=== PATIENT | male | born 1950 | race Caucasian/White ===

== ENCOUNTER 2022-12-21 14:04 | Outpatient (OUT) | payer MEDICARE, OTHER, SELFPAY ==
[2022-12-21 15:19] LABS: Estimated Average Glucose 114 mg/dL; Glycohemoglobin A1C 5.6 % (4.5-6.2)
[2022-12-21 16:06] LABS: Alanine Aminotransferase 41 U/L (16-63); Albumin Globulin Ratio 1.1; Albumin Level 3.7 g/dL (3.4-5.0); Alkaline Phosphatase 102 U/L (46-116); Anion Gap 12.6; Aspartate Amino Transferase 26 U/L (15-37); BUN Creatinine Ratio 13.1; Bilirubin Total 0.6 mg/dL (0.2-1.0); Calcium 8.4 mg/dL (8.5-10.1); Carbon Dioxide 27.9 mmol/L (21.0-32.0); Chloride 101 mmol/L (98-107); Chol HDL Ratio 1.6; Cholesterol 116 mg/dL (<=200); Estimated GFR (African America >60 (>=60); Estimated GFR (Non-African Ame 51 (>=60); Free T3 2.54 pg/mL (2.18-3.98); Globulin 3.4 g/dL; Glucose 108 mg/dL (74-106); HDL Cholesterol 71 mg/dL (40-60); Potassium 3.5 mmol/L (3.5-5.1); Sodium 138 mmol/L (136-145); Thyroid Stimulating Hormone 1.768 uIU/mL (0.358-3.740); Total Protein 7.1 g/dL (6.4-8.2); Triglycerides 59 mg/dL (<=150); VLDL CHOLESTEROL 11.8 mg/dL
[2022-12-21 16:12] LABS: Prostate Specific Antigen Scrn 1.31 ng/mL (<=4.00)
[2022-12-21 17:38] LABS: Basophils Absolute Auto 0.1 10^3/uL (0.0-0.1); Basophils Percent Auto 0.9 % (0.2-2.0); Eosinophils Absolute Auto 0.3 10^3/uL (0.0-0.7); Eosinophils Percent Auto 4.3 % (0.9-7.0); Hematocrit 42.6 % (42.0-54.0); Hemoglobin 14.5 g/dL (14.0-18.0); Immature Granulocytes Abs Auto 0.04 10^3/uL (0.00-0.03); Immature Granulocytes Pct Auto 0.5 % (0.0-0.5); Lymphocytes Absolute Auto 1.7 10^3/uL (1.2-3.8); Lymphocytes Percent Auto 22.3 % (20.5-60.0); Mean Corpuscular Hemoglobin 32.9 pg (25.9-34.0); Mean Corpuscular Volume 96.6 fL (80.0-94.0); Mean Platelet Volume 11.4 fL (9.5-13.5); Monocytes Absolute Auto 0.8 10^3/uL (0.3-0.8); Monocytes Percent Auto 11.2 % (1.7-12.0); Neutrophils Absolute Auto 4.5 10^3/uL (1.4-6.5); Neutrophils Percent Auto 60.8 % (43.0-75.0); Platelet Count 193 10^3/uL (150-450); Red Blood Count 4.41 10^6/uL (4.70-6.10); Red Cell Distribution Width 14.3 % (11.0-15.0); White Blood Count 7.4 10^3/uL (4.0-11.0)
== END 2022-12-21 14:05 | disposition home or self-care (01) ==
LOC: LAB 14:07
PROVIDERS: PCP Family Medicine; Visit Provider Family Medicine
DX: E78.5 Hyperlipidemia, unspecified (principal); R73.09 Other abnormal glucose; D22.9 Melanocytic nevi, unspecified; J21.9 Acute bronchiolitis, unspecified; Z12.5 Encounter for screening for malignant neoplasm of prostate
CPT/HCPCS: 36415; 80053; 80061; 83036; 84436; 84443; 84481; 85025; G0103

== ENCOUNTER 2022-12-28 12:20 | Outpatient (OUT) | payer MEDICARE, SELFPAY | END 2022-12-28 12:21 | disposition home or self-care (01) | LOC: PST 12:21 | PROVIDERS: PCP Family Medicine; Visit Provider Surgery | DX: Z01.818 Encounter for other preprocedural examination (principal); D48.7 Neoplasm of uncertain behavior of other specified sites ==

== ENCOUNTER 2022-12-29 09:26 | Day surgery (SDC) | payer MEDICARE, OTHER, SELFPAY ==
--- NOTE | 2022-12-29 | OP_ITS ---
OPERATION DATE: ??12/29/2022 PREOPERATIVE DIAGNOSIS:?? Neoplasm of uncertain behavior left cheek. POSTOPERATIVE DIAGNOSIS:? Neoplasm of uncertain behavior left cheek. PROCEDURE:? Excisional biopsy of lesion left cheek.? Total length of the incision 8 mm. SURGEON:? Ronald Lewis M.D. INDICATIONS AND CONSENT:? Patient is a 72-year-old male with a keratotic, enlarging, painful lesion of the left cheek.? The superficial part was sloughed off but then grows back.? Indications, risks, benefits, alternatives of proceeding with excisional biopsy under local anesthesia were explained extensively to the patient, including risks of bleeding, infection, scarring, pain, need for further surgery.? All of his questions were answered.? Informed consent was obtained. PROCEDURE:? Patient brought to the operating room, placed in the supine position.? The area was prepped and draped in the usual sterile fashion.? It was anesthetized with 1% lidocaine with epinephrine . ?The lesion was excised in elliptical fashion down to subcutaneous fat. ?Total length of the incision was less than 8 mm.? The subcutaneous tissue was re-approximated with 4-0 Monocryl suture.? The skin was then closed with 5-0 nylon simple sutures.? There was good hemostasis.? A sterile pressure dressing was applied.? Sponge and needle counts were correct x2 per nursing personnel.? Patient tolerated procedure well, was discharged home in good condition to follow up in 7-10 days for suture removal.? He is to call sooner with any problems or questions. CC:? Sulaiman Garcia
[2022-12-29 11:48] VITALS: BP 203/99; PULSE 56; RESP 18; O2SAT 98
[2022-12-29] MEDS: LIDOCAINE HCL 1%-EPINEPHRINE 1:100,000 20 ML MDV INJ (12:02)
[2022-12-29 12:06] VITALS: BP 170/87; PULSE 55; RESP 18; O2SAT 98
== END 2022-12-29 12:20 | disposition home or self-care (01) ==
PROVIDERS: PCP Family Medicine; Visit Provider Surgery
PROC: (CPT 11641; principal; 2022-12-29 10:30)
DX: D04.39 Carcinoma in situ of skin of other parts of face (principal); L57.0 Actinic keratosis; I50.9 Heart failure, unspecified; I11.0 Hypertensive heart disease with heart failure; E78.2 Mixed hyperlipidemia; N40.1 Benign prostatic hyperplasia with lower urinary tract symptoms; Z86.718 Personal history of other venous thrombosis and embolism; I43 Cardiomyopathy in diseases classified elsewhere; G47.33 Obstructive sleep apnea (adult) (pediatric); E66.9 Obesity, unspecified; Z68.30 Body mass index [BMI] 30.0-30.9, adult; I48.0 Paroxysmal atrial fibrillation; F17.210 Nicotine dependence, cigarettes, uncomplicated; Z79.899 Other long term (current) drug therapy
CPT/HCPCS: 11641; 12051; 88305

== ENCOUNTER 2023-05-16 12:14 | Outpatient (OUT) | payer MEDICARE, OTHER, SELFPAY ==
--- NOTE | 2023-05-16 12:33 | XR_ITS ---
The [address] [address] Patient Name: HEAVEN PATEL MRN: [id number] date: 1950 Sex: M Assigned Patient Location: LAB Current Patient Location: LAB Accession/Order Number: [id number] Exam Date: 05/16/2023 12:38 Report Date: 05/16/2023 14:54 At the request of: QUENTIN RANGEL Procedure: XR chest 2V EXAM: XR chest 2V HISTORY: Acute bronchitis; J21.9 COMPARISON: CT chest dated 05/04/2022. TECHNIQUE: PA and lateral views of the chest performed. FINDINGS: The trachea is normal. The heart size is within normal limits. There is a mildly tortuous course of the descending thoracic aorta. The hilar shadows are normal. There are new small bilateral pleural effusions with mild associated atelectasis. There is no pulmonary vascular congestion. There is no pneumothorax. The bony structures are osteopenic. There is slight dextroscoliosis of the thoracic spine. There are mild discogenic degenerative changes at several levels along the spine. XR/XR chest 2V IMPRESSION: There are new small bilateral pleural effusions with mild associated atelectasis. Electronically authenticated by: SINGH MCGRAW Date: 05/16/2023 14:54
[2023-05-16 13:06] LABS: Alanine Aminotransferase 55 U/L (16-63); Albumin Globulin Ratio 0.6; Albumin Level 2.7 g/dL (3.4-5.0); Alkaline Phosphatase 137 U/L (46-116); Anion Gap 12.9; Aspartate Amino Transferase 36 U/L (15-37); Bilirubin Total 0.5 mg/dL (0.2-1.0); Calcium 8.7 mg/dL (8.5-10.1); Carbon Dioxide 29.6 mmol/L (21.0-32.0); Chloride 100 mmol/L (98-107); Estimated GFR (African America >60 (>=60); Estimated GFR (Non-African Ame >60 (>=60); Globulin 4.2 g/dL; Glucose 116 mg/dL (74-106); Potassium 3.5 mmol/L (3.5-5.1); Sodium 139 mmol/L (136-145); Thyroid Stimulating Hormone 1.051 uIU/mL (0.358-3.740); Total Protein 6.9 g/dL (6.4-8.2)
[2023-05-16 13:49] LABS: Free T4 1.37 ng/dL (0.76-1.46)
== END 2023-05-16 12:15 | disposition home or self-care (01) ==
LOC: LAB 12:17
PROVIDERS: PCP Family Medicine; Visit Provider Family Medicine
DX: J21.9 Acute bronchiolitis, unspecified (principal); I10 Essential (primary) hypertension
CPT/HCPCS: 36415; 71046; 80053; 83880; 84439; 84443

== ENCOUNTER 2023-05-20 13:53 | Outpatient (REF) | payer MEDICARE, OTHER, SELFPAY | END 2023-05-20 13:54 | disposition home or self-care (01) | LOC: LAB 13:53 | PROVIDERS: PCP Family Medicine; Visit Provider Family Medicine | DX: J21.9 Acute bronchiolitis, unspecified (principal); I11.0 Hypertensive heart disease with heart failure | CPT/HCPCS: 87070; 87205 ==

== ENCOUNTER 2023-06-20 11:37 | Outpatient (OUT) | payer MEDICARE, OTHER, SELFPAY ==
[2023-06-20 11:59] LABS: Basophils Absolute Auto 0.1 10^3/uL (0.0-0.1); Eosinophils Absolute Auto 0.2 10^3/uL (0.0-0.7); Eosinophils Percent Auto 3.2 % (0.9-7.0); Hematocrit 43.5 % (42.0-54.0); Hemoglobin 14.1 g/dL (14.0-18.0); Immature Granulocytes Abs Auto 0.03 10^3/uL (0.00-0.03); Immature Granulocytes Pct Auto 0.4 % (0.0-0.5); Lymphocytes Absolute Auto 1.3 10^3/uL (1.2-3.8); Lymphocytes Percent Auto 17.5 % (20.5-60.0); Mean Corpuscular HGB Conc 32.4 g/dL (29.9-35.2); Mean Corpuscular Hemoglobin 31.3 pg (25.9-34.0); Mean Corpuscular Volume 96.7 fL (80.0-94.0); Mean Platelet Volume 11.7 fL (9.5-13.5); Monocytes Absolute Auto 0.8 10^3/uL (0.3-0.8); Neutrophils Absolute Auto 4.8 10^3/uL (1.4-6.5); Neutrophils Percent Auto 66.9 % (43.0-75.0); Platelet Count 159 10^3/uL (150-450); Red Cell Distribution Width 16.2 % (11.0-15.0); White Blood Count 7.2 10^3/uL (4.0-11.0)
--- OUTSIDE RECORDS SUMMARY | 2023-06-20 12:00 | XMS_ITS | CCD ---
Author Organization [facility] Care Team Providers Care Pipe Racker Name Role Phone Jamison Will Unavailable Unavail able NicoletteJamison Unavailable Unavail able HOY, QUENTIN Unavailable Unavailable Ezra Young Unavailable Unavailable Nicolette, Jamison Merino Unavailable Unavail able Nicolette, Jamison Merino Unavailable Unavail able HOY, QUENTIN Unavailable Unavailable Feliciano Davies S Unavailable Unavailable Nicolette, Jamison Merino Unavailable Unavail able Nicolette, Jamison Merino Unavailable Unavail able HOYKRISTIQUENTIN Unavailable Unavailable HOYQUENTIN Unavailable Unavailable GABRIELLE QUEZADA Admitting Unavailable GABRIELLE QUEZADA Attending Unavailable QUENTIN RANGEL Referring Unavailable QUENTIN RANGEL Primary Care Unavailable MOUKARBELTON, DR XIE Admitting Unavailable MOUKARBEL, DR XIE Attending Unavailable JUAN CARLOS, DR SAAVEDRA Primary Care Unavailable Zieber, DR Yeung Consulting Unavailable MOUKARBEL, DR XIE Consulting Unavailable MOUKARBEL, DR XIE Admitting Unavailable MOUKARBEL, DR XIE Attending Unavailable JUAN CARLOS, DR SAAVEDRA Primary Care Unavailable MOUKARBEL, DR XIE Consulting Unavailable MOUKARBEL, DR XIE Admitting Unavailable MOUKARBEL, DR XIE Attending Unavailable JUAN CARLOS, DR SAAVEDRA Primary Care Unavailable EDMORE, DR NOLVIA Devlin Consulting Unavailable MOUKARBEL, DR XIE Consulting Unavailable MOUKARBEL, DR XIE Admitting Unavailable MOUKARBEL, DR XIE Attending Unavailable JUAN CARLOS, DR SAAVEDRA Primary Care Unavailable Quentin Rangel Primary Care Physician Quentin Rangel Referring Unavailable Ronald CHOWDARY Attending Unavailable Ronald CHOWDARY Attending Unavailable Ronald CHOWDARY Attending Unavailable ISSAC SEXTON Referring Unavailable ISSAC SEXTON Attending Unavailable MOUKARBELANNE-MARIE Attending Unavailable MOUKARBELANNE-MARIE Attending Unavailable Unavailable Primary Care Provider UnavailAUDREY Lopez Attending Unavailable AUDREY RAMIREZ Attending Unavailable AUDREY RAMIREZ Attending Unavailable AUDREY RAMIREZ Attending Unavailable AUDREY RAMIREZ Attending Unavailable Allergies Allergy Classification Reported Allergen(s) Allergy Type Date of Onset Reaction(s) Facility (2 sources) No Known Medication Allergies; Translations: [No Known Medication Allergies] Propensity to adverse reactions to drug (disorder) [facility] Repository Medications Current Medications Medication Drug Class(es) Dates Sig (Normalized) Sig (Original) allopurinol 300 mg oral tablet (1 source) Xanthine Oxidase Inhibitor Start: 12-17-2022 take 1 tablet by mouth once daily allopurinol 300 mg Tab 300 mg = 1 tab(s), Oral, Daily, Refills(s) 0 Start Date: 12/17/22 Status: Ordered atorvastatin 40 mg oral tablet (1 source) HMG-CoA Reductase Inhibitor Start: 12-17-2022 take 1 tablet by mouth once daily atorvastatin 40 mg Tab 40 mg = 1 tab(s), Oral, Daily, Refills(s) 0 Start Date: 12/17/22 Status: Ordered 24 hr buPROPion hydrochloride 150 mg extended release oral tablet (1 source) Aminoketone Start: 12-17-2022 take 1 tablet by mouth every twenty-four hours Wellbutrin XL 150 mg/24 hours Tab-ER 150 mg = 1 tab(s), Oral, q24hr, Refills(s) 0 Start Date: 12/17/22 Status: Ordered carvedilol 25 mg oral tablet (1 source) alpha-Adrenergic Jeannette, beta-Adrenergic Jeannette Start: 12-17-2022 take 1 tablet by mouth twice daily carvedilol 25 mg Tab 25 mg = 1 tab(s), Oral, BID, Refills(s) 0 Start Date: 12/17/22 Status: Ordered colchicine 0.6 mg oral tablet (1 source) Start: 12-17-2022 take 1 tablet by mouth once daily colchicine 0.6 mg Tab 0.6 mg = 1 tab(s), Oral, Daily, Refills(s) 0 Start Date: 12/17/22 Status: Ordered empagliflozin 10 mg oral tablet (1 source) Sodium-Glucose Cotransporter 2 Inhibitor Start: 12-17-2022 take 1 tablet by mouth once daily in the morning Jardiance 10 mg oral tablet 10 mg = 1 tab(s), Oral, qAM, Refills(s) 0 Start Date: 12/17/22 Status: Ordered furosemide 40 mg oral tablet (1 source) Loop Diuretic Start: 12-17-2022 take 1 tablet by mouth once daily Lasix 40 mg Tab 40 mg = 1 tab(s), Oral, Daily, Refills(s) 0 Start Date: 12/17/22 Status: Ordered hydrALAZINE hydrochloride 100 mg oral tablet (1 source) Arteriolar Vasodilator Start: 12-17-2022 take 1 tablet by mouth twice daily hydrALAZINE 100 mg oral tablet 100 mg = 1 tab(s), Oral, BID, Refills(s) 0 Start Date: 12/17/22 Status: Ordered 24 hr isosorbide mononitrate 120 mg extended release oral tablet (1 source) Nitrate Vasodilator Start: 12-17-2022 take 1 tablet by mouth once daily in the morning isosorbide mononitrate 120 mg ER Tab 120 mg = 1 tab(s), Oral, qAM, Refills(s) 0 Start Date: 12/17/22 Status: Ordered multivitamin with iron (1 source) Start: 12-17-2022 take 1 tablet by mouth once daily multivitamin with iron 1 tab(s), Oral, Daily, Refill(s) 0 Start Date: 12/17/22 Status: Ordered pantoprazole 40 mg delayed release oral tablet (1 source) Proton Pump Inhibitor Start: 12-17-2022 take 1 tablet by mouth once daily Pantoprazole [address] Tab 40 mg = 1 tab(s), Oral, Daily, Refills(s) 0 Start Date: 12/17/22 Status: Ordered spironolactone 25 mg oral tablet (1 source) Aldosterone Antagonist Start: 12-17-2022 take 1 tablet by mouth once daily spironolactone 25 mg Tab 25 mg = 1 tab(s), Oral, Daily, Refills(s) 0 Start Date: 12/17/22 Status: Ordered Problems Active Problems Problem Classification Problem Date Documented Date Episodic/Chronic Anxiety disorders (1 source) Mixed anxiety and depressive disorder Onset: 02-12-2019 12-17-2022 Chronic Aortic; peripheral; and visceral artery aneurysms (6 sources) Thoracic aortic ectasia; Translations: [Aneurysm of ascending aorta] Onset: 05-04-2022 Chronic Cardiac dysrhythmias (1 source) Paroxysmal atrial fibrillation Onset: 02-12-2019 12-17-2022 Chronic Congestive heart failure; nonhypertensive (8 sources) Chronic systolic (congestive) heart failure; Translations: [Congestive heart failure] Onset: 02-12-2019 Chronic Coronary atherosclerosis and other heart disease (2 sources) Atherosclerotic heart disease of [place] coronary artery without angina pectoris; Translations: [Atherosclerotic heart disease of [place] coronary artery without angina pectoris] Onset: 12-05-2021 Chronic Deficiency and other anemia (1 source) Anemia of chronic disease Onset: 02-12-2019 12-17-2022 Chronic Disorders of lipid metabolism (1 source) Mixed hyperlipidemia Onset: 02-12-2019 12-17-2022 Chronic Diverticulosis and diverticulitis (1 source) Diverticular disease 12-17-2022 Chronic Essential hypertension (3 sources) Essential hypertension; Translations: [Essential (primary) hypertension] Onset: 12-05-2021 12-17-2022 Chronic Gout and other crystal arthropathies (1 source) Gout 12-17-2022 Chronic Hyperplasia of prostate (1 source) Benign prostatic hyperplasia 12-17-2022 Chronic Hypertension with complications and secondary hypertension (1 source) Cardiomyopathy due to hypertension Onset: 02-12-2019 12-17-2022 Chronic Neoplasms of unspecified nature or uncertain behavior (2 sources) Neoplasm of skin of cheek; Translations: [Neoplasm of uncertain behavior of skin of face] 01-05-2023 Episodic Other bone disease and musculoskeletal deformities (1 source) Avascular necrosis of bone of hip Onset: 06-01-2019 12-17-2022 Chronic Other non-epithelial cancer of skin (2 sources) Carcinoma in situ of skin of face; Translations: [Carcinoma in situ of skin of other parts of face] Onset: 01-05-2023 Episodic Other nutritional; endocrine; and metabolic disorders (1 source) Body mass index 30+ - obesity 12-21-2022 Chronic Other nutritional; endocrine; and metabolic disorders (1 source) Obesity 12-17-2022 Chronic Other nutritional; endocrine; and metabolic disorders (2 sources) Obesity, unspecified; Translations: [Obesity, unspecified] Onset: 06-08-2022 Chronic Other skin disorders (1 source) Actinic keratosis; Translations: [Actinic keratosis] Onset: 01-05-2023 Episodic Residual codes; unclassified (1 source) Obstructive sleep apnea syndrome Onset: 02-12-2019 12-17-2022 Chronic Residual codes; unclassified (2 sources) Localized edema; Translations: [Localized edema] Onset: 04-14-2023 Episodic Spondylosis; intervertebral disc disorders; other back problems (1 source) Lumbar radiculopathy 12-17-2022 Episodic Substance-related disorders (3 sources) Nicotine dependence; Translations: [Nicotine dependence, unspecified, uncomplicated] Onset: 02-12-2019 12-17-2022 Chronic Unclassified (1 source) Aneurysm of the ascending aorta, without rupture; Translations: [Aneurysm of the ascending aorta, without rupture] Onset: 04-14-2023 Past or Other Problems Problem Classification Problem Date Documented Da te Episodic/Chronic Other lower respiratory disease (2 sources) Shortness of breath; Translations: [Shortness of breath] Onset: 05-03-2022 Episodic Paralysis (3 sources) Transient paralysis; Translations: [TRANSIENT PARALYSIS] Onset: 04-23-2022 Episodic Phlebitis; thrombophlebitis and thromboembolism (1 source) H/O: Deep vein thrombosis Onset: 02-12-2019 12-17-2022 Episodic Unclassified (1 source) Aneurysm of the ascending aorta, without rupture; Translations: [Aneurysm of the ascending aorta, without rupture] Onset: 04-14-2023 Results Test Name Value Interpretation Reference Range Facility Office Visiton 04-14-2023 Follow-up visit [id number] Last Patel 1950 M Date Provider Department Center 04/14/2023 Foreign[facility]MARIE BAKER [facility] Family History Problem Relation Age of Onset Heart failure Mother Heart failure Father Family Status - Relation Status Age at Mother Father Level of Service:[address] [place] OFFICE/OUTPATIENT ESTABLISHED MOD MDM 30 MIN Normal [facility] Ambulatory Visit Summaryon 1 Ambulatory Visit Summary ADEN PATEL :1950 Visit Date:01/05/2023 Ambulatory Visit Instructions Your Diagnosis Carcinoma in situ of skin of other parts of face Actinic keratosis of left cheek Your Care Team Attending Physician - EPI MENENDEZ, Ronald Cuevas Primary Care Physician - Quentin Rangel MD This Is Your Medications List Contact prescribing physician if questions or concerns allopurinol (allopurinol 300 mg Tab) atorvastatin (atorvastatin 40 mg Tab) buPROPion (Wellbutrin XL 150 mg/24 hours Tab-ER) carvedilol (carvedilol 25 mg Tab) colchicine (colchicine 0.6 mg Tab) empagliflozin (Jardiance 10 mg oral tablet) furosemide (Lasix 40 mg Tab) hydrALAZINE (hydrALAZINE 100 mg oral tablet) isosorbide mononitrate (isosorbide mononitrate 120 mg ER Tab) multivitamin with iron pantoprazole (Pantoprazole [address] Tab) spironolactone (spironolactone 25 mg Tab) Procedures Performed Appendectomy, Arthroplasty of left hip, Arthroplasty of right hip, Colonoscopy, Incision and drainage of infected bursa of elbow area, Small bowel resection. Medications What How Much When Instructions Unchanged allopurinol (allopurinol 300 mg Tab) 1 Tablets By Mouth Every day Contact prescribing physician if questions or concerns Unchanged atorvastatin (atorvastatin 40 mg Tab) 1 Tablets By Mouth Every day Contact prescribing physician if questions or concerns Unchanged buPROPion (Wellbutrin XL 150 mg/ 24 hours Tab-ER) 1 Tablets By Mouth Every 24 hours Contact prescribing physician if questions or concerns Unchanged carvedilol (carvedilol 25 mg Tab) 1 Tablets By Mouth 2 times a day Contact prescribing physician if questions or concerns Unchanged colchicine (colchicine 0.6 mg Tab) 1 Tablets By Mouth Every day Contact prescribing physician if questions or concerns Unchanged empagliflozin (Jardiance 10 mg oral tablet) 1 Tablets By Mouth Once a day (in the morning) Contact prescribing physician if questions or concerns Unchanged furosemide (Lasix 40 mg Tab) 1 Tablets By Mouth Every day Contact prescribing physician if questions or concerns Unchanged hydrALAZINE (hydrALAZINE 100 mg oral tablet) 1 Tablets By Mouth 2 times a day Contact prescribing physician if questions or concerns Unchanged isosorbide mononitrate (isosorbide mononitrate 120 mg ER Tab) 1 Tablets By Mouth Once a day (in the morning) Contact prescribing physician if questions or concerns Unchanged multivitamin with iron 1 Tablets By Mouth Every day Contact prescribing physician if questions or concerns Unchanged pantoprazole (Pantoprazole [address] Tab) 1 Tablets By Mouth Every day Contact prescribing physician if questions or concerns Unchanged spironolactone (spironolactone 25 mg Tab) 1 Tablets By Mouth Every day Contact prescribing physician if questions or concerns Allergies No Known Allergies No Known Medication Allergies Problems Ongoing - Any problem that you are currently receiving treatment for. Actinic keratosis of left cheek Anemia of chronic disease Aneurysm of ascending aorta Ascending aorta dilation Avascular necrosis of bone of hip BMI 30.0-30.9,adult BPH (benign prostatic hyperplasia) Cardiomyopathy due to hypertension Congestive heart failure Diastolic dysfunction Diverticulosis Essential hypertension Gout History of deep vein thrombosis Lumbar radiculopathy Mixed anxiety and depressive disorder Mixed hyperlipidemia Neoplasm of uncertain behavior of skin of face Nicotine dependence Obesity Obstructive sleep apnea syndrome Paroxysmal atrial fibrillation Squamous cell carcinoma in situ of skin Normal [facility] General Surgery Office/Clini c Noteon 01-05-2023 General Surgery Office/Clinic Note Chief Complaint post operative follow up HPI Staff 7 day post operative follow up post excisional biopsy neoplasm left cheek. Denies discomfort, bleeding or drainage. Sutures intact. History of Present Illness 1 week s/p excisional biopsy keratotic lesion left cheek, pathology with squamous cell carcinoma in situ and actinic keratoses; doing well, denies pain, no drainage. Review of Systems ROS - Provider Constitutional: no fever, no sweats, no weight loss. Eyes: no glasses, no blurred vision, no visual loss. ENMT: no dentures, no hoarseness, no swallowing difficulties, no hearing loss, no ear infection(s), no nose bleeds. Cardiovascular: normal blood pressure, no chest pain, regular heartbeat, no heart murmur. Respiratory: no shortness of breath, no cough, no asthma, no wheezing. Gastrointestinal: no nausea, no vomiting, no diarrhea, no constipation, no blood in stool, no change in bowel habits, no abdominal pain, no hepatitis. Genitourinary: no kidney stones, no urine infection, no dysuria. Musculoskeletal: no pain, no weakness. Skin: no changing moles, no rash, no skin lumps. Neurologic: no seizures, no epilepsy, no headache. Psychiatric: no emotional or psychiatric problem. Heme/Lymph: no bleeding problems, no anemia, no blood clots, no transfusions. Allergy/Immunologic: no swollen lymph nodes/glands, no IV drug abuse. Other: Additional ROS info: Except as noted in the above Review of Systems and in the History of Present Illness, all other systems have been reviewed and are negative or noncontributory. Physical Exam skin: incision healing well, no erythema or drainage, no ecchymosis Assessment/Plan 1. Carcinoma in situ of skin of other parts of face (D04.39: Carcinoma in situ of skin of other parts of face) doing well, sutures removed, call with problems/questions. 2. Actinic keratosis of left cheek (L57.0: Actinic keratosis) see # 1 Follow-up No qualifying data available Problem List/Past Medical History Ongoing Actinic keratosis of left cheek Anemia of chronic disease Aneurysm of ascending aorta Ascending aorta dilation Avascular necrosis of bone of hip BMI 30.0-30.9,adult BPH (benign prostatic hyperplasia) Cardiomyopathy due to hypertension Congestive heart failure Diastolic dysfunction Diverticulosis Essential hypertension Gout History of deep vein thrombosis Lumbar radiculopathy Mixed anxiety and depressive disorder Mixed hyperlipidemia Neoplasm of uncertain behavior of skin of face Nicotine dependence Obesity Obstructive sleep apnea syndrome Paroxysmal atrial fibrillation Squamous cell carcinoma in situ of skin Historical No qualifying data Procedure/Surgical History Appendectomy, Arthroplasty of left hip, Arthroplasty of right hip, Colonoscopy, Incision and drainage of infected bursa of elbow area, Small bowel resection. Medications allopurinol 300 mg Tab, 300 mg= 1 tab(s), Oral, Daily atorvastatin 40 mg Tab, 40 mg= 1 tab(s), Oral, Daily carvedilol 25 mg Tab, 25 mg= 1 tab(s), Oral, BID colchicine 0.6 mg Tab, 0.6 mg= 1 tab(s), Oral, Daily hydrALAZINE 100 mg oral tablet, 100 mg= 1 tab(s), Oral, BID isosorbide mononitrate 120 mg ER Tab, 120 mg= 1 tab(s), Oral, qAM Jardiance 10 mg oral tablet, 10 mg= 1 tab(s), Oral, qAM Lasix 40 mg Tab, 40 mg= 1 tab(s), Oral, Daily multivitamin with iron, 1 tab(s), Oral, Daily Pantoprazole [address] Tab, 40 mg= 1 tab(s), Oral, Daily spironolactone 25 mg Tab, 25 mg= 1 tab(s), Oral, Daily Wellbutrin XL 150 mg/24 hours Tab-ER, 150 mg= 1 tab(s), Oral, q24hr Allergies No Known Allergies No Known Medication Allergies Social History Alcohol - Denies Alcohol Use, 12/21/2022 Substance Abuse - Denies Substance Abuse, 12/21/2022 Tobacco 4 or less cigarettes(less than 1/4 pack)/day in last 30 days Tobacco Use:. Never Smokeless Tobacco Use:. Cigarettes, 0.2 per day. Started age 20.0 Years. Yes, 12/21/2022 Family History Heart disease: Mother and Father. [facility] Comment on above: Result Comment: Elec tronically Signed By: EPI MENENDEZ, Ronald Cuevas\.br\Date and Time Signed: 01/05/23 13:10 EDT Pathology Noteon 01-05-2023 Pathology Note [id number] [facility] Operative Reporton Operative Report [id number] [facility] Consent for Procedure/Surger yon 12-22-2022 Consent for Procedure/Surgery [id number]:127 [facility] Ambulatory Visit Summaryon 0 12-21-2022 Ambulatory Visit Summary ADEN PATEL :1950 Visit Date:12/21/2022 Ambulatory Visit Instructions Your Care Team Attending Physician - Ronald CHOWDARY MD Primary Care Physician - Quentin Rangel MD Referring Physician - Quentin Rangel MD This Is Your Medications List Contact prescribing physician if questions or concerns allopurinol (allopurinol 300 mg Tab) atorvastatin (atorvastatin 40 mg Tab) buPROPion (Wellbutrin XL 150 mg/24 hours Tab-ER) carvedilol (carvedilol 25 mg Tab) colchicine (colchicine 0.6 mg Tab) empagliflozin (Jardiance 10 mg oral tablet) furosemide (Lasix 40 mg Tab) hydrALAZINE (hydrALAZINE 100 mg oral tablet) isosorbide mononitrate (isosorbide mononitrate 120 mg ER Tab) multivitamin with iron pantoprazole (Pantoprazole [address] Tab) spironolactone (spironolactone 25 mg Tab) Procedures Performed Appendectomy, Arthroplasty of left hip, Arthroplasty of right hip, Colonoscopy, Incision and drainage of infected bursa of elbow area, Small bowel resection. Discharge Vitals Heart Rate (Peripheral) 76 Respiratory Rate 16 Blood Pressure 132/82 Height 182.8 cm Height 72 in Weight 101.5 kg Weight 223.3 lb BMI 30.37 Medications What How Much When Instructions Unchanged allopurinol (allopurinol 300 mg Tab) 1 Tablets By Mouth Every day Contact prescribing physician if questions or concerns Unchanged atorvastatin (atorvastatin 40 mg Tab) 1 Tablets By Mouth Every day Contact prescribing physician if questions or concerns Unchanged buPROPion (Wellbutrin XL 150 mg/ 24 hours Tab-ER) 1 Tablets By Mouth Every 24 hours Contact prescribing physician if questions or concerns Unchanged carvedilol (carvedilol 25 mg Tab) 1 Tablets By Mouth 2 times a day Contact prescribing physician if questions or concerns Unchanged colchicine (colchicine 0.6 mg Tab) 1 Tablets By Mouth Every day Contact prescribing physician if questions or concerns Unchanged empagliflozin (Jardiance 10 mg oral tablet) 1 Tablets By Mouth Once a day (in the morning) Contact prescribing physician if questions or concerns Unchanged furosemide (Lasix 40 mg Tab) 1 Tablets By Mouth Every day Contact prescribing physician if questions or concerns Unchanged hydrALAZINE (hydrALAZINE 100 mg oral tablet) 1 Tablets By Mouth 2 times a day Contact prescribing physician if questions or concerns Unchanged isosorbide mononitrate (isosorbide mononitrate 120 mg ER Tab) 1 Tablets By Mouth Once a day (in the morning) Contact prescribing physician if questions or concerns Unchanged multivitamin with iron 1 Tablets By Mouth Every day Contact prescribing physician if questions or concerns Unchanged pantoprazole (Pantoprazole [address] Tab) 1 Tablets By Mouth Every day Contact prescribing physician if questions or concerns Unchanged spironolactone (spironolactone 25 mg Tab) 1 Tablets By Mouth Every day Contact prescribing physician if questions or concerns Allergies No Known Allergies No Known Medication Allergies Problems Ongoing - Any problem that you are currently receiving treatment for. Anemia of chronic disease Aneurysm of ascending aorta Ascending aorta dilation Avascular necrosis of bone of hip BMI 30.0-30.9,adult BPH (benign prostatic hyperplasia) Cardiomyopathy due to hypertension Congestive heart failure Diastolic dysfunction Diverticulosis Essential hypertension Gout History of deep vein thrombosis Lumbar radiculopathy Mixed anxiety and depressive disorder Mixed hyperlipidemia Nicotine dependence Obesity Obstructive sleep apnea syndrome Paroxysmal atrial fibrillation Normal [facility] Facesheeton 12-21-2022 Facesheet [id number]:127 Normal [facility] Physician Referralon 023 Physician Referral [id number]:127 Normal [facility] Physician Referralon 023 Physician Referral [id number]:127 Normal [facility] Office Visiton 06-08-2022 Follow-up visit [id number] Last Patel 1950 M Date Provider Department Center 06/08/2022 ISSAC DICKSON [facility] Family History Problem Relation Age of Onset Heart failure Mother Heart failure Father Family Status - Relation Status Age at Mother Father Level of Service:[address] [place] OFFICE/OP CONSLTJ NEW/EST PT HIGH MDM 55 MINUTES Reason for Visit and Comments: New Patient [632] Normal [facility] CT CHEST W CONon 05-04-2022 CT CHEST W CON EXAMINATION: CT CHES T W CON HISTORY: Ectasia of thoracic aorta COMPARISON: CT chest 08/26/2017 TECHNIQUE: Multi-planar CT images were created with IV contrast. Axial, Coronal, and Sagittal images. Dose reduction techniques were achieved by using automated exposure control and/or adjustment of mA and/or kV according to patient size and/or use of iterative reconstruction technique. FINDINGS: LUNGS: Stable scarring within posterior right lung base. Few tiny 3 mm nodules scattered within the lungs. Mild emphysematous changes. PLEURA: No mass, effusion, or pneumothorax. VASCULATURE: No abnormality. CHINO: No mass or adenopathy. MEDIASTINUM: No mass or adenopathy. CARDIAC: No enlargement, pericardial thickening, or significant calcification. AORTA: Dilation of ascending aorta, 4.4 cm in diameter. Tortuosity of descending thoracic aorta, but no abnormal dilation or significant atherosclerotic disease. CHEST WALL: No mass or axillary adenopathy. BONES: No bone lesion or fracture. LIMITED ABDOMEN: No suspicious findings Limited images of the upper abdomen. OTHER: Negative. IMPRESSION: 1. Stable aneurysmal dilation of the ascending aorta, 4.4 cm in diameter. 2. Stable tortuous course of descending thoracic aorta of doubtful clinical significance. 3. Stable scarring within posterior right lung base and mild chronic changes. No suspicious findings. Electronically authenticated by: AUDREY BRIDGES Date: 2022-05-04 13:59 Normal [facility] Follow-Upon 05-03-2022 Follow-Up [id number] Last Patel 1950 M Date Provider Department Center 05/03/2022 ANNE-MARIE BHATIA [facility] Family History Problem Relation Age of Onset Heart failure Mother Heart failure Father Family Status - Relation Status Age at Mother Father Level of Service:[address]57 [place] OFFICE/OUTPATIENT ESTABLISHED MOD MDM 30-39 MIN Reason for Visit and Comments: Congestive Heart Failure [127] Coronary Artery Disease [187] Hypertension [838305] Normal [facility] US CAROTID ART BILon 04-20- 023 US CAROTID ART MACHELLE EXAMINATION: US CAROTID ART MACHELLE HISTORY: Staring COMPARISON: No relevant comparison available. TECHNIQUE: Duplex Doppler ultrasound analysis of carotid and vertebral arteries. . Bilateral carotid arterial duplex examination was performed using B-mode, color flow and spectral analysis. Carotid stenosis is reported according to validated velocity parameters, similar to NASCET criteria. FINDINGS: RIGHT CAROTID ARTERY Mild atherosclerotic plaque Subclavian: PSV: 144.5 cm/s cm/s EDV: 0.0 cm/s cm/s CCA: Prox: PSV: 45.0 cm/s cm/s EDV: 13.1 cm/s cm/s Mid: PSV: 38.4 cm/s cm/s EDV: 14.2 cm/s cm/s Distal: PSV: 33.4 cm/s cm/s EDV: 14.9 cm/s cm/s BULB: PSV: 35.5 cm/s cm/s EDV: 14.9 cm/s cm/s ICA: Prox: PSV: 36.2 cm/s cm/s EDV: 12.0 cm/s cm/s Mid: PSV: 29.0 cm/s cm/s EDV: 15.8 cm/s cm/s Distal: PSV: 39.2 cm/s cm/s EDV: 13.9 cm/s cm/s ECA: PSV: 60.3 cm/s cm/s EDV: 9.8 cm/s cm/s VERTEBRAL: PSV: 27.5 cm/s cm/s EDV: 13.1 cm/s cm/s ICA/CCA ratio: PSV: 1.0 EDV: 1.0 LEFT CAROTID ARTERY Mild atherosclerotic plaque Subclavian: PSV: 88.1 cm/s cm/s EDV: 0.0 cm/s CCA: Prox: PSV: 38.3 cm/s cm/s EDV: 13.9 cm/s Mid: PSV: 25.7 cm/s cm/s EDV: 9.3 cm/s Distal: PSV: 32.3 cm/s cm/s EDV: 9.3 cm/s BULB: PSV: 17.0 cm/s cm/s EDV: 8.3 cm/s ICA: Prox: PSV: 38.4 cm/s cm/s EDV: 17.7 cm/s Mid: PSV: 39.8 cm/s cm/s EDV: 17.7 cm/s Distal: PSV: 41.9 cm/s cm/s EDV: 17.0 cm/s ECA: PSV: 60.3 cm/s cm/s EDV: 9.8 cm/s VERTEBRAL: PSV: 27.7 cm/s cm/s EDV: 10.6 cm/s ICA/CCA ratio: PSV: 1.3 EDV: 1.8 IMPRESSION: 0-49% flow stenosis bilateral internal carotid arteries Spectral Doppler US Thresholds (Reference: Matias EG, et al. Radiology 2000; 214:247-252) Stenosis (%) PSV (cm/sec) VICA/VCCA 0-49 <150 <2.5 50-69 150-225 2.5-4.0 >70 >225 >4.0 Electronically authenticated by: NOLVIA CANTU Date: 2022-04-20 07:[address] [facility] CBC AUTO DIFFon 04-19-2022 BASO # 0.0 103/ul Normal 0.0-0.[address] [facility] Comment on above: Performed By: #### C BC #### [facility] Laboratory [address] [place] [address] Dr. Femi Macias Basophils/100 WBC (Bld) 0.6 % Normal 0.2-2.[address] [facility] Comment on above: Performed By: #### C BC #### [facility] [address] [place] [address] Dr. Femi Macias EO # 0.2 103/ul Normal 0.0-0.[address] [facility] Comment on above: Performed By: #### C BC #### [facility] [address] [place] [address] Dr. Femi Macias Eosinophils/100 WBC (Bld) 2.7 % Normal 0.9-7.[address] [facility] Comment on above: Performed By: #### C BC #### [facility] [address] [place] [address] Dr. Femi Macias Erythrocyte distribution width (RBC) [Ratio] 14.4 % Normal 11.0-15.0 [facility] Comment on above: Performed By: #### C BC #### [facility] [address] [place] [address] Dr. Femi Macias Hematocrit (Bld) [Volume fraction] 38.8 % Critically low 42.0-54.0 [facility] Comment on above: Performed By: #### C BC #### [facility] [address] [place] [address] Dr. Femi Macias Hemoglobin (Bld) [Mass/Vol] 13.8 g/dL Critically low 14.0-18.[address] [facility] Comment on above: Performed By: #### C BC #### [facility] [address] [place] [address] Dr. Femi Macias IG # 0.02 10e3/ul Normal 0.00-0.[address] [facility] Comment on above: Performed By: #### C BC #### [facility] [address] [place] [address] Dr. Femi Macias IG % 0.3 % Normal 0.0-0.[address] [facility] Comment on above: Performed By: #### C BC #### [facility] [address] [place] [address] Dr. Femi Macias LYMPH # 1.3 103/ul Normal 1.2-3.8 [facility] Comment on above: Performed By: #### C BC #### [facility] [address] [place] [address] Dr. Femi Macias Lymphocytes/100 WBC (Bld) 18.2 % Critically low 20.5-60.0 [facility] Comment on above: Performed By: #### C BC #### [facility] [address] [place] [address] Dr. Femi Macias MANUAL DIFF REQ NO Normal [facility] Comment on above: Performed By: #### C BC #### [facility] [address] [place] [address] Dr. Femi Macias MCH (RBC) [Entitic mass] 31.8 pg Normal 25.9-34.0 [facility] Comment on above: Performed By: #### C BC #### [facility] [address] [place] [address] Dr. Femi Macias MCHC (RBC) [Mass/Vol] 35.6 g/dL Critically high 29.9-35.2 [facility] Comment on above: Performed By: #### C BC #### [facility] [address] [place] [address] Dr. Femi Macias MCV (RBC) [Entitic vol] 89.4 fL Normal 80.0-94.0 [facility] Comment on above: Performed By: #### C BC #### [facility] [address] [place] [address] Dr. Femi Macias MONO # 1.0 103/ul Critically high 0.3-0.[address] [facility] Comment on above: Performed By: #### C BC #### [facility] [address] [place] [address] Dr. Femi Macias Monocytes/100 WBC (Bld) 14.1 % Critically high 1.7-12.0 [facility] Comment on above: Performed By: #### C BC #### [facility] [address] [place] [address] Dr. Femi Macias NEUT # 4.5 103/ul Normal 1.4-6.5 [facility] Comment on above: Performed By: #### C BC #### [facility] [address] [place] [address] Dr. Femi Macias Neutrophils/100 WBC (Bld) 64.1 % Normal 43.0-75.0 [facility] Comment on above: Performed By: #### C BC #### [facility] [address] [place] [address] Dr. Femi Macias Platelet mean volume (Bld) [Entitic vol] 10.4 fL Normal 9.5-13.[address] [facility] Comment on above: Performed By: #### C BC #### [facility] [address] [place] [address] Dr. Femi Macias PLT 167 103/ul Normal 150-[address] [facility] Comment on above: Performed By: #### C BC #### [facility] [address] [place] [address] Dr. Femi Macias RBC 4.34 106/ul Critically low 4.70-6.[address] [facility] Comment on above: Performed By: #### C BC #### [facility] [address] [place] [address] Dr. Femi Macias WBC 7.0 103/ul Normal 4.0-11.[address] [facility] Comment on above: Performed By: #### C BC #### [facility] [address] [place] [address] Dr. Femi Macias ECHOCARDIO M/2D COMPLETEon 0 04-19-2022 ECHOCARDIO M/2D COMPLETE Patient: ADEN PATEL Exam Date: 04/19/2022 : 1950 Gender:M Ordering : DR ANNE-MARIE BAKER M.D. Admission #: [id number] Family : Order #: [id number] CLICK HERE TO VIEW EXAM ECHOCARDIOGRAM REPORT PROCEDURE: CARDIO PULMONARY ECHOCARDIO M/2D COMP INDICATIONS: Chronic systolic heart failure, SALEEM COMPARISON: None. DESCRIPTION: COMPLETE ECHOCARDIOGRAM Real-time transthoracic echocardiography with 2D, M-mode, spectral and color flow Doppler performed. QUALITY: Technical quality was adequate. LEFT VENTRICLE: Normal chamber size. Moderate concentric left ventricular hypertrophy. Global left ventricular systolic function is normal. LV EF: Visual estimation of left ventricular ejection fraction is 55-60% DIASTOLIC: Grade I diastolic dysfunction. ATRIAL SEPTUM: LEFT ATRIUM: Normal chamber size. RIGHT ATRIUM: Mild dilatation. RIGHT VENTRICLE: Normal chamber size. Normal right ventricular systolic function. TRICUSPID VALVE: Normal mobility and thickness. No stenosis with trivial regurgitation. No evidence of pulmonary hypertension. RVSP is 23 mmHg MITRAL VALVE: Normal mobility and thickness. No mitral valve prolapse. No evidence of mitral valve stenosis. There is no mitral annular calcification. No mitral regurgitation. AORTIC VALVE: Normal trileaflet appearance. No visible sclerosis. Normal leaflet mobility. No evidence of aortic valve stenosis. Trivial aortic regurgitation. AORTIC ROOT: Moderately dilated. Measuring 4.1cm. The ascending aorta is severely dilated measuring up to 6.0 x 5.3 cm. PULMONIC VALVE: Grossly normal. No stenosis. No regurgitation. PERICARDIUM: No evidence of pericardial effusion. IVC: Collapses with inspirations. Normal size PLEURA: CONCLUSION: 1. Normal ventricular systolic function. LVEF is 55 to 60%. 2. No significant valvular dysfunction. 3. Normal right-sided pressures. 4. Severely dilated ascending aorta measuring up to 6 x 5.3 cm. 5. Further imaging with CT scan is recommended. Adult Echocardiography Procedure Report Left Ventricle LVEDD (3.7 - 5.6 cm): 5.11 cm LVESD (2.2 - 4.0 cm): 3.92 cm LVIVS thickness (0.6 - 1.2 cm): 1.36 cm LVPW thickness (0.5 - 1.0 cm): 1.27 cm e': 0.07 m/s E - e': 6.62 LVOT Max Gradient: 1.68 mm[Hg] Peak Velocity (LVOT): 0.65 m/s Mean Velocity (LVOT): 0.42 m/s LVOT Diameter 2.58 cm Left Ventricular Ejection Fraction: 55-60 % Left Atrium LA Volume Index (2D A2C): 28.61 ml, 28.61 ml Left Atrium Systolic Dimension: 3.27 cm Mitral Valve MV E to A Ratio: 0.69 Mitral Valve A-Wave Peak Velocity: 0.67 m/s Mitral Valve E-Wave Peak Velocity: 0.46 m/s Right Ventricle RV Internal Diastolic Dimension: 3.73 cm Aorta AO Root Diam: 4.13 cm Ascending Ao Diam: 4.41 cm Aortic Valve AoV Area (Peak Pramod): 3.48 cm2, 3.48 cm2 AoV Area (VTI): 4.60 cm2, 4.60 cm2 Peak Velocity(Antegrade Flow): 0.97 m/s Peak Gradient(Antegrade Flow): 3.79 mm[Hg] Mean Velocity(Antegrade Flow): 0.65 m/s Mean Gradient(Antegrade Flow): 1.96 mm[Hg] Velocity Time Integral: 18.64 cm Tricuspid Valve Peak Velocity (Regurgitant Flow): 2.22 m/s, 1.77 m/s, 1.97 m/s Pulmonic Valve Peak Velocity: 1.00 m/s, 0.79 m/s Peak Gradient: 4.02 mm[Hg], 2.48 mm[Hg] Right Atrium Right Atrium Systolic Pressure: 51.21 ml, 51.21 ml Dictated by: Anne-Marie Baker M.D. on 04/21/2022 at 15:33 Approved by: Anne-Marie Baker M.D. on 04/21/2022 at 15:37 [address] [facility] PROF CHEM 8 (BAS METB)on Anion gap [Moles/Vol] 13.1 mmol/L Normal [facility] Comment on above: Performed By: #### B MP #### [facility] [address] [place] [address] Dr. Femi Macias Calcium [Mass/Vol] 8.7 mg/dL Normal 8.5-10.[address] [facility] Comment on above: Performed By: #### B MP #### [facility] Laboratory [address] [address] [address] Femi Macias Chloride [Moles/Vol] 100 mmol/L Normal 98-[address] [facility] Comment on above: Performed By: #### B MP #### [facility] [address] [place] [address] Dr. Femi Macias CO2 [Moles/Vol] 26.6 mmol/L Normal 21.0-32.[address] [facility] Comment on above: Performed By: #### B MP #### [facility] [address] [place] [address] Dr. Femi Macias Creatinine [Mass/Vol] 1.08 mg/dL Normal 0.70-1.30 [facility] Comment on above: Performed By: #### B MP #### [facility] [address] [place] [address] Dr. Femi Macias EGFR-AF BELARUSIAN >60 Normal >=[address] [facility] Comment on above: Performed By: #### B MP #### [facility] [address] [place] [address] Dr. Femi Macias EGFR-NON AF BELARUSIAN >60 Normal >=60 [facility] Comment on above: Performed By: #### B MP #### [facility] [address] [place] [address] Dr. Femi Macias Glucose [Mass/Vol] 123 mg/dL Critically high 74-106 [facility] Comment on above: Performed By: #### B MP #### [facility] [address] [place] [address] Dr. Femi Macias Potassium [Moles/Vol] 3.7 mmol/L Normal 3.5-5.[address] [facility] Comment on above: Performed By: #### B MP #### [facility] [address] [place] [address] Dr. Femi Macias Sodium [Moles/Vol] 136 mmol/L Normal 136-[address] [facility] Comment on above: Performed By: #### B MP #### [facility] [address] [place] [address] Dr. Femi Macias Urea nitrogen [Mass/Vol] 15.0 mg/dL Normal 7.0-18.0 [facility] Comment on above: Performed By: #### B MP #### [facility] [address] [place] [address] Dr. Femi Macias Urea nitrogen/Creatini ne [Mass ratio] 13.9 mg/mg Normal [facility] Comment on above: Performed By: #### B MP #### [facility] [address] [place] [address] Dr. Femi Macias PROF CHEM 8 (BAS METB)on Anion gap [Moles/Vol] 15.4 mmol/L Normal [facility] Comment on above: Performed By: #### B MP #### [facility] [address] [place] [address] Dr. Femi Macias Calcium [Mass/Vol] 9.2 mg/dL Normal 8.4-10.[address] [facility] Comment on above: Performed By: #### B MP #### [facility] [address] [place] [address] Dr. Femi Macias Chloride [Moles/Vol] 99 mmol/L Normal 98-[address] [facility] Comment on above: Performed By: #### B MP #### [facility] [address] [place] [address] Dr. Femi Macias CO2 [Moles/Vol] 25.8 mmol/L Normal 22.0-30.[address] [facility] Comment on above: Performed By: #### B MP #### [facility] [address] [place] [address] Dr. Femi Macias Creatinine [Mass/Vol] 1.40 mg/dL Critically high 0.66-1.[address] [facility] Comment on above: Performed By: #### B MP #### [facility] [address] [place] [address] Dr. Femi Macias EGFR-AF BELARUSIAN >60 Normal >=[address] [facility] Comment on above: Performed By: #### B MP #### [facility] [address] [address] [address] Femi Macias EGFR-NON AF BELARUSIAN 50 mL/min/1.73m2 Critically low >=[address] [facility] Comment on above: Performed By: #### B MP #### [facility] [address] [place] [address] Dr. Femi Macias Glucose [Mass/Vol] 179 mg/dL Critically high 74-[address] [facility] Comment on above: Performed By: #### B MP #### [facility] [address] [place] [address] Dr. Femi Macias Potassium [Moles/Vol] 4.2 mmol/L Normal 3.4-5.0 [facility] Comment on above: Performed By: #### B MP #### [facility] [address] [address] [address] Femi Macias Sodium [Moles/Vol] 136 mmol/L Critically low 137-145 [facility] Comment on above: Performed By: #### B MP #### [facility] [address] [address] [address] Femi Macias Urea nitrogen [Mass/Vol] 33.0 mg/dL Critically high 9.0-20.0 [facility] Comment on above: Performed By: #### B MP #### [facility] [address] [address] [address] Femi Macias Urea nitrogen/Creatini ne [Mass ratio] 23.6 mg/mg Normal [facility] Comment on above: Performed By: #### B MP #### [facility] [address] [address] [address] Femi Macias Cardiovascular Lab Reporton 12-12-2018 Cardiovascular Lab Report [facility] [id number] Physician: Gabrielle Quezada, Department of M.D. Medicine Service Date: 12/11/2018 Division of Birthdate: 1950 Cardiology Room #: [facility] Cardiovascular Services [place] [address] Cardiovascular Laboratory Report CLINICAL PRESENTATION: The patient is a 68-year-old male with active long-term smoking, hypertension, gout, arthritis, and newly diagnosed systolic congestive heart failure. The patient has severe hip pain and needs to have a hip replacement surgery. He had a cardiac stress test, which was abnormal and was found to have an abnormal LV systolic function with EF of 25% to 30% on echocardiogram. He was evaluated by Dr. Fountain, [facility] and referred for coronary angiogram. FINAL IMPRESSION: Severe single-vessel coronary artery disease with occluded mid RCA. The distal RCA as well collateralized by the LAD. The CAD is appropriate for medical therapy. PLAN: 1. Optimal medical therapy for CAD and systolic congestive heart failure and hypertension. 2. Aspirin 81 mg daily long-term. 3. High-intensity statin therapy. We have started atorvastatin 40 mg daily. 4. Optimal medical therapy for systolic congestive heart failure. The patient is on Bystolic and irbesartan. We will add spironolactone 25 mg daily. I will have him get a lab check within 1 week. 5. The patient is cleared for hip replacement surgery. Avoid excessive IV fluids if possible. The patient has systolic congestive heart failure and may be at risk for perioperative congestive heart failure or arrhythmias. 6. Outpatient followup with [facility] and at [facility]. PROCEDURES: Coronary angiogram. INDICATION: Acute systolic congestive heart failure. DESCRIPTION OF PROCEDURE: The patient was brought to the cardiac catheterization lab in a fasting state. Informed written consent was obtained. He was prepped and draped in usual sterile fashion over the right wrist. Time-out was performed. He was given Versed and fentanyl for sedation. 1% lidocaine was infiltrated over the right radial artery. A 6-Malian Terumo Glidesheath slender was placed in right radial artery. Nitroglycerin 200 mcg was administered through the sheath to prevent spasm. All catheter exchanges were made over the Magic Torque guidewire. A Bolivar catheter was engaged to right coronary artery. A JL5 catheter was engaged to the left main coronary artery. Coronary angiogram was performed in multiple orthogonal views using hand injection of contrast. At the end of procedure, all catheters and wires were removed the body. The radial sheath was removed. A TR band was applied to obtain hemostasis. There were no apparent complications. TOTAL CONTRAST: 65 mL. TOTAL CONSCIOUS SEDATION TIME: 26 minutes. TOTAL FLUOROSCOPY TIME: 5 minutes and 54 seconds, 0.8 Gy. FINDINGS: Hemodynamics: Aortic pressure 136/80 (MAP 102). CORONARY ANGIOGRAM: 1. Left main coronary artery: The left main is patent with ostial 20% stenosis. The left main bifurcates into LAD and left circumflex coronary artery. 2. Left anterior descending coronary artery: The LAD is a large vessel and is patent. The proximal LAD has 30% stenosis. The mid and distal LAD also have 30% stenosis. The LAD septal branches provide significant collaterals to the right PDA. 3. Left circumflex coronary artery: The circumflex is a moderate-sized vessel and gives rise to 3 obtuse marginal branches. The mid circumflex has 30% stenosis. The distal circumflex has a 40% stenosis. The OM1 and OM2 are patent. 4. Right coronary artery: The RCA is a moderate-sized vessel and is dominant. The proximal RCA has 90% stenosis. The mid RCA has 100% occlusion. At the mid RCA, there are 2 RV marginal branches, which are patent. The distal RCA and right PDA are seen on the left coronary injection with filling via LAD collaterals. Electronically Signed by: Gabrielle Quezada M.D. 12/20/2018 07:29 P Gabrielle Quezada M.D. Date Dict: 12/11/2018/12:45 P/Gabrielle Quezada M.D. Date Trans: 12/12/2018 07:52 A/joo [id number] cc: Quentin Rangel M.D. [address] Dionisio Fountain M.D. [facility] [address] Normal [facility] CBCon 05-01-2018 Erythrocyte distribution width (RBC) [Ratio] 13.9 % Normal 11.5 - 14.5 [facility] Comment on above: Performed By: #### C BC ####[id number] [place] [address] Hematocrit (Bld) [Volume fraction] 25.8 % Low 41.0 - 52.0 [facility] Comment on above: Performed By: #### C BC ####[id number] [place] [address] Hemoglobin (Bld) [Mass/Vol] 8.4 g/dL Low 13.5 - 17.5 [facility] Comment on above: Performed By: #### C BC ####[id number] [place] [address] MCHC (RBC) [Mass/Vol] 32.6 g/dL Normal 32.0 - 36.0 [facility] Comment on above: Performed By: #### C BC ####[id number] [place] [address] MCV (RBC) [Entitic vol] 90 fL Normal 80 - 100 [facility] Comment on above: Performed By: #### C BC ####[id number] [place] [address] Nucleated RBC/100 WBC (Bld) [Ratio] 0.0 /100 WBC Normal 0.0-0.0 [facility] Comment on above: Performed By: #### C BC ####[id number] [place] [address] Platelets (Bld) [#/Vol] 421 10*3/uL Normal 150 - 450 [facility] Comment on above: Performed By: #### C BC ####[id number] [place] [address] RBC (Bld) [#/Vol] 2.86 x10E12/L Low 4.50 - 5.90 [facility] Comment on above: Performed By: #### C BC ####[id number] [place] [address] WBC (Bld) [#/Vol] 10.1 10*3/uL Normal 4.4 - 11.3 [facility] Comment on above: Performed By: #### C BC ####[id number] [place] [address] GLUCOSE-POCTon 05-01-2018 Glucose [Mass/Vol] 117 mg/dL High 74 - 99 [facility] Comment on above: Performed By: #### G VAISHALI ####[id number] [place] [address] Nutrition Therapy-Calorie Co unton 05-01-2018 Nutrition Therapy-Calorie Count Assessment Subjective/Objective: Note Type: Calorie Count Note Authored by: Registered Dietitian Welt Butter Hand Pager Number: [phone] Nutrition Note: The patient is a 67 year old Male who is Hospital Day # 18 and POD #6 for exploratory laparotomy, small bowel resection and anastomosis, vicryl mesh closure. Calorie count results --> Diet: Soft --> Nutrient needs: 2000kcal/d; 115g pro/d Day 1 04/28/18: 942 kcal, 41g pro = 47% kcal needs met, 36% pro needs met Day 2 04/29/18: 983kcal, 42g pro = 49% kcal needs met, 37% pro needs met Day 3 04/29/18: 1770kcal, 78g pro = 89% kcal needs met, 68% pro needs met Met with pt and family at bedside this morning. Pt reports that he feels well. Denies n/v/abd pain. Pt rates his appetite a 7 or 8 out of 10 - 10 being greatest appetite. Pt reports that he drinks Premiere Protein BID at home and is agreeable to Boost Plus product to help meet protein needs while admitted. RDN predicts that with consumption of oral nutrition supplement, pt will meet > 75% of protein needs via PO intake. Pt met >75% kcal needs yesterday via PO intake. Three day calorie count complete. Anticipated discharge is today. Nutrition Interventions: Individualized Nutrition Prescription Provided for: diet Coordination of Care with: ID rounds NUTRITION RECOMMENDATIONS: Recommendations: 1. Continue soft diet + oral nutrition supplement BID Nutrition Therapy Recommendations: Nutrition Therapy Recommendations: Please see RDN note 2/4 Diet Education: Nutrition Education: Family with many questions regarding soft/low fiber diet. Verbally reviewed questions and provided low fiber nutrition therapy handout. Education Provided to: patient, family Understanding of Diet: good, able to select meals appropriately, patient/family voice understanding Anticipated Compliance: good Follow up: provided RDN contact info Time Spent (minutes): 30 Nutrition Support: no Electronic Signatures: Helen Mclean (HERRERA, RITA) (Signed 01-May-2018 10:39) Authored: Assessment Subjective/Objective, Nutrition Interventions, Nutrition Recommendations, Diet Education, Time Spent/Nutrition Support Last Updated: 01-May-2018 10:39 by Helen Mclean (HERRERA, RITA) Normal [facility] PT/INRon 05-01-2018 INR Coag (PPP) [Relative time] 1.1 {INR} Normal 0.9 - 1.1 [facility] Comment on above: Performed By: #### P TINR ####[id number] [place] [address] PT Coag (PPP) [Time] 12.7 s Normal 9.7 - 12.7 [facility] Comment on above: Performed By: #### P TINR ####[id number] [place] [address] RENAL FUNCTION PANELon 05-01 Albumin [Mass/Vol] 2.5 g/dL Low 3.4 - 5.0 [facility] Comment on above: Performed By: #### R ENAL ####[id number] [place] [address] Anion gap [Moles/Vol] 13 mmol/L Normal 10 - 20 [facility] Comment on above: Performed By: #### R ENAL ####[id number] [place] [address] Calcium [Mass/Vol] 7.9 mg/dL Low 8.6 - 10.6 [facility] Comment on above: Performed By: #### R ENAL ####[id number] [place] [address] Chloride [Moles/Vol] 102 mmol/L Normal 98 - 107 [facility] Comment on above: Performed By: #### R ENAL ####[id number] [place] [address] Creatinine [Mass/Vol] 0.68 mg/dL Normal 0.50 - 1.30 [facility] Comment on above: Performed By: #### R ENAL ####[id number] [place] [address] GFR- AM. >60 Normal >60 [facility] Comment on above: Result Comment: CALC ULATIONS OF ESTIMATED GFR ARE PERFORMED USING THE MDRD STUDY EQUATION FOR THE IDMS-TRACEABLE CREATININE METHODS. CLIN CHEM 2007;53:766-72 Performed By: #### R ENAL ####[id number] [place] [address] GFR-NON AM. >60 Normal >60 [facility] Comment on above: Performed By: #### R ENAL ####[id number] [place] [address] Glucose [Mass/Vol] 96 mg/dL Normal 74 - 99 [facility] Comment on above: Performed By: #### R ENAL ####[id number] [place] [address] HCO3 (Bld) [Moles/Vol] 26 mmol/L Normal 21 - 32 [facility] Comment on above: Performed By: #### R ENAL ####[id number] [place] [address] Phosphate [Mass/Vol] 2.7 mg/dL Normal 2.5 - 4.9 [facility] Comment on above: Result Comment: The performance characteristics of phosphorus testing in heparinized plasma have been validated by the individual laboratory site where testing is performed. Testing on heparinized plasma is not approved by the FDA; however, such approval is not necessary. Performed By: #### R ENAL ####[id number] [place] [address] Potassium [Moles/Vol] 3.3 mmol/L Low 3.5 - 5.3 [facility] Comment on above: Performed By: #### R ENAL ####[id number] [place] [address] Sodium [Moles/Vol] 138 mmol/L Normal 136 - 145 [facility] Comment on above: Performed By: #### R ENAL ####[id number] [place] [address] Urea nitrogen [Mass/Vol] 12 mg/dL Normal 6 - 23 [facility] Comment on above: Performed By: #### R ENAL ####[id number] [place] [address] CBCon 04-30-2018 Erythrocyte distribution width (RBC) [Ratio] 14.2 % Normal 11.5 - 14.5 [facility] Comment on above: Performed By: #### C BC ####[id number] [place] [address] Hematocrit (Bld) [Volume fraction] 26.6 % Low 41.0 - 52.0 [facility] Comment on above: Performed By: #### C BC ####[id number] [place] [address] Hemoglobin (Bld) [Mass/Vol] 8.7 g/dL Low 13.5 - 17.5 [facility] Comment on above: Performed By: #### C BC ####[id number] [place] [address] MCHC (RBC) [Mass/Vol] 32.7 g/dL Normal 32.0 - 36.0 [facility] Comment on above: Performed By: #### C BC ####[id number] [place] [address] MCV (RBC) [Entitic vol] 91 fL Normal 80 - 100 [facility] Comment on above: Performed By: #### C BC ####[id number] [place] [address] Nucleated RBC/100 WBC (Bld) [Ratio] 0.1 /100 WBC Normal 0.0-0.0 [facility] Comment on above: Performed By: #### C BC ####[id number] [place] [address] Platelets (Bld) [#/Vol] 438 10*3/uL Normal 150 - 450 [facility] Comment on above: Performed By: #### C BC ####[id number] [place] [address] RBC (Bld) [#/Vol] 2.93 x10E12/L Low 4.50 - 5.90 [facility] Comment on above: Performed By: #### C BC ####[id number] [place] [address] WBC (Bld) [#/Vol] 10.2 10*3/uL Normal 4.4 - 11.3 [facility] Comment on above: Performed By: #### C BC ####[id number] [place] [address] Daily Progress Note-Colorect al Surgeryon 04-30-2018 Daily Progress Note-Colorectal Surgery Service: Colorectal Surgery Subjective Data: ADEN PATEL is a 67 year old Male who is Hospital Day # 18 and POD #6 for exploratory laparotomy, small bowel resection and anastomosis, vicryl mesh closure. no acute events overnight, tolerated diet, no N/V, having bowel function. Objective Data: Objective Information: ---- Intake and Output ----- Mn/Dy/Year TimeIntakeOutputNet Apr 30, 2018 6:00 [id number] Apr 29, 2018 10:00 [id number] Apr 29, 2018 2:00 [id number] The Intake and Output Totals for the last 24 hours are: IntakeOutputNet [id number] T PRBPSpO2 [id number]/8399% Date/Time04/30 8: 8: 8: 8: 8:20 Range(36.3C - 37.2C ) (67 - 89 ) (16 - 18 ) (148 - 170 )/ (81 - 88 ) (97% - 100% ) Highest temp of 37.2 C was recorded at 04/29 11:30 Physical Exam: Constitutional: NAD, awake and alert Eyes: sclera nonicteric ENMT: mmm Respiratory/Thorax: symmetrical chest rise, nonlabored breathing Cardiovascular: regular rate Gastrointestinal: abd soft, minimally tender, nondistended, midline incision Genitourinary: voiding on own Musculoskeletal: mckeon Neurological: alert and oriented Lymphatic: no LE edema Psychological: normal mood Skin: warm and dry Medication: Medications: CARDIOVASCULAR AGENTS: 1. Losartan: 25 mg Oral Daily 2. hydroCHLOROthiazide: 25 mg Oral Daily CENTRAL NERVOUS SYSTEM AGENTS: 1. Acetaminophen: 650 mg Oral Every 4 Hours PRN 2. HYDROmorphone Injectable: 0.2 mg IntraVenous Push Every 2 Hours PRN 3. Ondansetron Injectable: 4 mg IntraVenous Push Every 6 Hours PRN COAGULATION MODIFIERS: 1. Heparin Flush 10 unit/ mL PF Injectable PRN: 5 mL IntraVenous Flush According to Flush Policy PRN 2. Heparin Flush 10 unit/ mL PF Injectable PRN: 5 mL IntraVenous Flush According to Flush Policy PRN 3. Heparin SubCutaneous: 5000 unit(s) SubCutaneous Every 8 Hours GASTROINTESTINAL AGENTS: 1. Pantoprazole Injectable: 40 mg IntraVenous Push Every 12 Hours METABOLIC AGENTS: 1. Insulin Lispro Customizable Corrective Scale: unit(s) SubCutaneous Every 6 Hours 2. Allopurinol: 300 mg Oral Every 24 Hours 3. Dextrose 50% in Water Injectable: 25 gram(s) IntraVenous Push Every 15 Minutes PRN 4. Glucagon Injectable: 1 mg IntraMuscular Every 15 Minutes PRN MISCELLANEOUS AGENTS: 1. Nicotine 21 mg/ 24 hour TransDermal: 1 patch TransDermal Every 24 Hours NUTRITIONAL PRODUCTS: 1. Sodium Chloride 0.9% Injectable Flush PRN: 10 mL IntraVenous Flush According to Flush Policy PRN TOPICAL AGENTS: 1. Lidocaine 5% TransDermal: 1 patch TransDermal Every 24 Hours Assessment and Plan: Assessment: 67yo M with Hx perforated appendicitis requiring appendectomy and ileocolic resection at OSH 07/2017 complicated by enterocutaneous fistula. OR 04/14/18 he underwent ex lap with takedown of ileocolic anastomosis and fistula take dwon with redo of ileocolic anastomosis, and was also found to have small enterovesical fistula that was taken down and primarily repaired and primary ventral hernia repair with placement of subcutaneous MADISON drain. -OR on 04/17/18 for ex-lap, evacuation of hematoma, omentectomy, abthera wound vac -OR 04/21/18 Underwent second look laparotomy, resection of ischemic segment of jejunum, left in discontinuity, and abthera placed over open abdomen on 04/21/2018. -OR on 04/22/18 for exploration resection of proximal jejunal limb with stapler and oversew of staple line, serosal patch placed with proximal jejunal staple line, Left in discontinuity, Abdominal washout, Abthera vac placement -OR 04/24/18 exploratory laparotomy, small bowel resection and anastomosis, vicryl mesh closure Plan: Neuro: moderate pain control with meds - Continue on Dilaudid IV as needed - Add Tylenol around the clock and Oxycodone as needed for pain Cardiac: History of HTN, AFib preoperatively, now regular and rate controlled - Continue central telemetry - Q 4 hours VS - cardiology consulted, does not think pt had afib on review of EKG and telemetry. rec HCTZ and lisinopril for HTN instead of beta jeannette. Pt had cough with lisinopril in the past so ordered losartan instead. Pulm: unlabored on room air, lungs clear posteriorly, History of smoking - Incentive spirometry Q 1 hours - Encourage Ambulation - OOB - Continue Nicoderm patch GI- s/p takedown of EC fistula, complicated by hematoma - soft diet - Impact Advanced TID - drains removed - Zofran as needed for nausea - Continue PPI ; Voiding spontaneously - Strict intake and output - Trend renal function and replace electrolytes as needed - Maintenance fluids HL - Zofran PRN HEME: no signs of bleeding, H/H stable -trend CBC - no indication for transfusion at this time Endo Continues on insulin sliding scale while on TPN - SSI Q 6 hours - On Allopurinol for history of gout ID: Down trending leukocytosis, continues on ATB - DC Fluconazole and Zosyn - No indication for ATB- end date 04/29/18 Proph - Continue SCDs, Lovenox for DVT prevention - Pantoprazole Dispo - Continue regular nursing floor - PT rec SNF a couple days ago, will try to have PT re-eval today or tomorrow - can likely be discharged home tomorrow. López Blake MD [facility]: [id number] Signature/Cosignature/Attesta tion: Attending AttestationI reviewed the resident/fellows documentation and discussed the patient with the resident/fellow. I agree with the resident/fellows medical decision making as documented in the residents note. Electronic Signatures: Nolvia Colmenares) (Signed 02-May-2018 09:53) Authored: Signature/Cosignature/Attesta tion Co-Signer: Service, Subjective Data, Objective Data, Assessment and Plan, Signature/Cosignature/Attesta tion López Blake (Fellow)) (Signed 30-Apr-2018 11:01) Authored: Service, Subjective Data, Objective Data, Assessment and Plan, Signature/Cosignature/Attesta tion Last Updated: 02-May-2018 09:53 by Nolvia Colmenares) Normal [facility] GLUCOSE-POCTon 04-30-2018 Glucose [Mass/Vol] 121 mg/dL High 74 - 99 [facility] Comment on above: Performed By: #### G VIASHALI ####[id number] [place] [address] Glucose [Mass/Vol] 139 mg/dL High 74 - 99 [facility] Comment on above: Performed By: #### G VAISHALI ####[id number] [place] [address] Glucose [Mass/Vol] 103 mg/dL High 74 - 99 [facility] Comment on above: Performed By: #### G VAISHALI ####[id number] [place] [address] Glucose [Mass/Vol] 113 mg/dL High 74 - 99 [facility] Comment on above: Performed By: #### G VAISHALI ####[id number] [place] [address] RENAL FUNCTION PANELon 04-30 Albumin [Mass/Vol] 2.5 g/dL Low 3.4 - 5.0 [facility] Comment on above: Performed By: #### R ENAL ####[id number] [place] [address] Anion gap [Moles/Vol] 14 mmol/L Normal 10 - 20 [facility] Comment on above: Performed By: #### R ENAL ####[id number] [place] [address] Calcium [Mass/Vol] 7.9 mg/dL Low 8.6 - 10.6 [facility] Comment on above: Performed By: #### R ENAL ####[id number] [place] [address] Chloride [Moles/Vol] 102 mmol/L Normal 98 - 107 [facility] Comment on above: Performed By: #### R ENAL ####[id number] [place] [address] Creatinine [Mass/Vol] 0.64 mg/dL Normal 0.50 - 1.30 [facility] Comment on above: Performed By: #### R ENAL ####[id number] [place] [address] GFR- AM. >60 Normal >60 [facility] Comment on above: Result Comment: CALC ULATIONS OF ESTIMATED GFR ARE PERFORMED USING THE MDRD STUDY EQUATION FOR THE IDMS-TRACEABLE CREATININE METHODS. CLIN CHEM 2007;53:766-72 Performed By: #### R ENAL ####[id number] [place] [address] GFR-NON AM. >60 Normal >60 [facility] Comment on above: Performed By: #### R ENAL ####[id number] [place] [address] Glucose [Mass/Vol] 91 mg/dL Normal 74 - 99 [facility] Comment on above: Performed By: #### R ENAL ####[id number] [place] [address] HCO3 (Bld) [Moles/Vol] 24 mmol/L Normal 21 - 32 [facility] Comment on above: Performed By: #### R ENAL ####[id number] [place] [address] Phosphate [Mass/Vol] 2.8 mg/dL Normal 2.5 - 4.9 [facility] Comment on above: Result Comment: The performance characteristics of phosphorus testing in heparinized plasma have been validated by the individual laboratory site where testing is performed. Testing on heparinized plasma is not approved by the FDA; however, such approval is not necessary. Performed By: #### R ENAL ####[id number] [place] [address] Potassium [Moles/Vol] 3.8 mmol/L Normal 3.5 - 5.3 [facility] Comment on above: Performed By: #### R ENAL ####[id number] [place] [address] Sodium [Moles/Vol] 136 mmol/L Normal 136 - 145 [facility] Comment on above: Performed By: #### R ENAL ####[id number] [place] [address] Urea nitrogen [Mass/Vol] 15 mg/dL Normal 6 - 23 [facility] Comment on above: Performed By: #### R ENAL ####[id number] [place] [address] CBC AND DIFFERENTIALon 04-29 % AUTOMATED IMMATURE GRAN 0.6 % Normal 0.0 - 0.9 [facility] Comment on above: Result Comment: Perc ent differential counts (%) should be interpreted in the context of the absolute cell counts (cells/L). Performed By: #### C BCDF ####[id number] [place] [address] Basophils (Bld) [#/Vol] 0.03 10*3/uL Normal 0.00 - 0.10 [facility] Comment on above: Performed By: #### C BCDF ####[id number] [place] [address] Basophils/100 WBC (Bld) 0.3 % Normal 0.0 - 2.0 [facility] Comment on above: Performed By: #### C BCDF ####[id number] [place] [address] Eosinophils (Bld) [#/Vol] 0.08 10*3/uL Normal 0.00 - 0.70 [facility] Comment on above: Performed By: #### C BCDF ####[id number] [place] [address] Eosinophils/100 WBC (Bld) 0.9 % Normal 0.0 - 6.0 [facility] Comment on above: Performed By: #### C BCDF ####[id number] [place] [address] Erythrocyte distribution width (RBC) [Ratio] 14.4 % Normal 11.5 - 14.5 [facility] Comment on above: Performed By: #### C BCDF ####[id number] [place] [address] Hematocrit (Bld) [Volume fraction] 26.0 % Low 41.0 - 52.0 [facility] Comment on above: Performed By: #### C BCDF ####[id number] [place] [address] Hemoglobin (Bld) [Mass/Vol] 8.6 g/dL Low 13.5 - 17.5 [facility] Comment on above: Performed By: #### C BCDF ####[id number] [place] [address] Lymphocytes (Bld) [#/Vol] 0.85 10*3/uL Low 1.20 - 4.80 [facility] Comment on above: Performed By: #### C BCDF ####[id number] [place] [address] Lymphocytes/100 WBC (Bld) 9.4 % Normal 13.0 - 44.0 [facility] Comment on above: Performed By: #### C BCDF ####[id number] [place] [address] MCHC (RBC) [Mass/Vol] 33.1 g/dL Normal 32.0 - 36.0 [facility] Comment on above: Performed By: #### C BCDF ####[id number] [place] [address] MCV (RBC) [Entitic vol] 91 fL Normal 80 - 100 [facility] Comment on above: Performed By: #### C BCDF ####[id number] [place] [address] Monocytes (Bld) [#/Vol] 1.03 10*3/uL High 0.10 - 1.00 [facility] Comment on above: Performed By: #### C BCDF ####[id number] [place] [address] Monocytes/100 WBC (Bld) 11.4 % Normal 2.0 - 10.0 [facility] Comment on above: Performed By: #### C BCDF ####[id number] [place] [address] Neutrophils (Bld) [#/Vol] 7.03 10*3/uL Normal 1.20 - 7.70 [facility] Comment on above: Performed By: #### C BCDF ####[id number] [place] [address] Neutrophils/100 WBC (Bld) 77.4 % Normal 40.0 - 80.0 [facility] Comment on above: Performed By: #### C BCDF ####[id number] [place] [address] Nucleated RBC/100 WBC (Bld) [Ratio] 0.0 /100 WBC Normal 0.0-0.0 [facility] Comment on above: Performed By: #### C BCDF ####[id number] [place] [address] Platelets (Bld) [#/Vol] 430 10*3/uL Normal 150 - 450 [facility] Comment on above: Performed By: #### C BCDF ####[id number] [place] [address] RBC (Bld) [#/Vol] 2.86 x10E12/L Low 4.50 - 5.90 [facility] Comment on above: Performed By: #### C BCDF ####[id number] [place] [address] WBC (Bld) [#/Vol] 9.1 10*3/uL Normal 4.4 - 11.3 [facility] Comment on above: Performed By: #### C BCDF ####[id number] [place] [address] Consult-Cardiologyon 019 Consult-Cardiolog y Service: Service: Cardiology Consult: Consult requested by (Attending Name): Reason: Asymptomatic sinus bradycardia History of Present Illness: HPI: Per the last SICU admission note: 67yo M with PMH of HTN, complicated left sided diverticulitis with perforation previously treated with abx, and perforated appendicitis requiring appendectomy and ileocolic resection at OSH 07/2017 c/b enterocutaneous fistula now s/p ex-lap with takedown of ileocolic anastomosis and fistula take down with redo of ileocolic anastomosis. A small enterovesical fistula was also taken down and primarily repaired as well as a primary ventral hernia repair with placement of subcutaneous MADISON drain. Patient transferred to the TSICU after a code white called when the patient became unresponsive and hypotensive while on the commode along with old, dark sanguinous drainage from the inferior aspect of the patient's midline incision. Patient was helped back to bed and there was some difficulty obtaining pressures. No fall or trauma. Patient became responsive and able to answer questions appropriately. Patient received 1 L of crystalloid on his way to the TSICU where a phenylephrine gtt was started for hypotension and an a-line and central line placed. Patient received 2u pRBCs and a total of 1.5 L of crystalloid since beginning of code white. Patient with h/o HTN (on Bisoprolol, Clonidine and Amlodepine at home) currently admitted for the following surgeries: 04/14/18 he underwent ex lap with takedown of ileocolic anastomosis and fistula take dwon with redo of ileocolic anastomosis, and was also found to have small enterovesical fistula that was taken down and primarily repaired and primary ventral hernia repair with placement of subcutaneous MADISON drain. -OR on 04/17/18 for ex-lap, evacuation of hematoma, omentectomy, abthera wound vac -OR 04/21/18 Underwent second look laparotomy, resection of ischemic segment of jejunum, left in discontinuity, and abthera placed over open abdomen on 04/21/2018. -OR on 04/22/18 for exploration resection of proximal jejunal limb with stapler and oversew of staple line, serosal patch placed with proximal jejunal staple line, Left in discontinuity, Abdominal washout, Abthera vac placement -OR 04/24/18 exploratory laparotomy, small bowel resection and anastomosis, vicryl mesh closure He was reportedly with AF per-OP, however, review of all the EKGs on his chart (also on [place] EKG) with no evidence of AF (only Sinus rhythm). He was put on Metoprolol 100 mg BID and was noted to have episodes of sinus/junctional bradycardia asymptomatic and occurs at night while asleep. On interview, he is asymptomatic with no CP, SOB, palpitations or syncope. His HR went from 60s at rest to 70s when he stood up with no lightheadedness or dizziness. PMH: HTN Diverticulitis Appendicitis C. diff colitis Gout DEBBIE PSH: R Inguinal hernia repair as child Appendectomy and ileocolic resection Family hx: HTN Rectal cancer in brother [place] in both parents Social: Current everyday smoker, 0.5ppd for 40+yrs Drinks 2 mixed drinks/day, quit 2 weeks ago Denies recreational drug use Home meds: Allopurinol 300 mg PO daily Bystolic 20 mg PO daily Clonidine HCl 0.1 mg PO daily Colcrys 0.6 mg PO daily Indomethacin 50 mg PO daily Lisinopril 20 mg PO daily Norvasc 10 mg PO daily Potassium chloride 10Meq/50mL IV solution Protonix 40 mg PO packet Sodium chloride 1 g PO daily TPN Electrolytes IV solution Venlafaxine HCl 75 mg PO daily Allergies: No Known Allergies: Objective: Objective Information: T PRBPSpO2 Value36.82538376/19490% Date/Time04/29 18:::: 19:00 Range(36.3C - 37.2C ) (65 - 89 ) (16 - 18 ) (140 - 178 )/ (83 - 94 ) (96% - 100% ) Highest temp of 37.2 C was recorded at 04/29 11:30 Physical Exam: Constitutional: Well developed, awake/alert/oriented x3, no distress, alert and cooperative Eyes: EOMI ENMT: MMM Head/Neck: no JVD Respiratory/Thorax: CTAB Cardiovascular: RRR, S1+S2, no murmurs. Gastrointestinal: soft Musculoskeletal: intact muscle power Extremities: no edema Neurological: non focal Psychological: appropriate affect Skin: Warm and dry, no lesions, no rashes Medications: Medications: Continuous Medications --- No continuous medications are active Scheduled Medications --- 1. Allopurinol: 300 mg Oral Every 24 Hours 2. Fat Emulsion 20% (SMOFLIPID) Infusion: 240 mL IntraVenous Piggyback Every 24 Hours 3. Fluconazole 400 mg IVPB/ Premixed NS 200 mL: 200 mL IntraVenous Piggyback Every 24 Hours 4. Heparin SubCutaneous: 5000 unit(s) SubCutaneous Every 8 Hours 5. Insulin Lispro Customizable Corrective Scale: unit(s) SubCutaneous Every 6 Hours 6. Lidocaine 5% TransDermal: 1 patch TransDermal Every 24 Hours 7. Nicotine 21 mg/ 24 hour TransDermal: 1 patch TransDermal Every 24 Hours 8. Pantoprazole Injectable: 40 mg IntraVenous Push Every 12 Hours 9. Piperacillin - Tazobactam 3.375 gram/Iso-osmotic 50 mL Premix IVPB: 50 mL IntraVenous Piggyback Every 6 Hours PRN Medications --- 1. Acetaminophen: 650 mg Oral Every 4 Hours 2. Dextrose 50% in Water Injectable: 25 gram(s) IntraVenous Push Every 15 Minutes 3. Glucagon Injectable: 1 mg IntraMuscular Every 15 Minutes 4. Heparin Flush 10 unit/ mL PF Injectable PRN: 5 mL IntraVenous Flush According to Flush Policy 5. Heparin Flush 10 unit/ mL PF Injectable PRN: 5 mL IntraVenous Flush According to Flush Policy 6. HYDROmorphone Injectable: 0.2 mg IntraVenous Push Every 2 Hours 7. Ondansetron Injectable: 4 mg IntraVenous Push Every 6 Hours 8. Sodium Chloride 0.9% Injectable Flush PRN: 10 mL IntraVenous Flush According to Flush Policy Recent Lab Results: Results: I have reviewed these laboratory results: Glucose_POCT Trending View [id number] 06:06:00 29-Apr-2018 01:18:00 [id number] H 148 H Complete Blood Count + Differential 29-Apr-2018 05:32:00 ResultValue White Blood Cell Count 9.1 Nucleated Erythrocyte Count 0.0 Red Blood Cell Count 2.86 L HGB 8.6 L HCT 26.0 L MCV 91 MCHC 33.1 PLT 430 RDW-CV 14.4 Neutrophil % 77.4 Immature Granulocytes % 0.6 Lymphocyte % 9.4 Monocyte % 11.4 Eosinophil % 0.9 Basophil % 0.3 Neutrophil Count 7.03 Lymphocyte Count 0.85 L Monocyte Count 1.03 H Eosinophil Count 0.08 Basophil Count 0.03 Renal Function Panel 29-Apr-2018 05:32:00 ResultValue Glucose, Serum 170 H NA 136 K 3.6 CL 103 Bicarbonate, Serum 26 Anion Gap, Serum 11 BUN 17 CREAT 0.65 GFR-Non >60 GFR- >60 Calcium, Serum 7.8 L Phosphorus, Serum 2.6 ALB 2.4 L Magnesium, Serum 29-Apr-2018 05:32:00 ResultValue Magnesium, Serum 1.71 Basic Metabolic Panel 28-Apr-2018 05:00:00 ResultValue Glucose, Serum 128 H NA 142 K 3.7 CL 108 H Bicarbonate, Serum 26 Anion Gap, Serum 12 BUN 16 CREAT 0.69 GFR-Non >60 GFR- >60 Calcium, Serum 7.7 L Complete Blood Count 28-Apr-2018 05:00:00 ResultValue White Blood Cell Count 9.9 Nucleated Erythrocyte Count 0.0 Red Blood Cell Count 2.80 L HGB 8.4 L HCT 25.6 L MCV 91 MCHC 32.8 PLT 408 RDW-CV 14.4 Radiology Results: Results: Impression: 1. Low lung volumes and continued for hilar congestion without jonny pulmonary edema. 2. Bibasilar atelectasis and suggestion of trace bilateral pleural effusion 3. Medical appliances as noted above. Xray Chest 1 View [Apr 25 2018 8:34AM] Impression: 1. Enteric tube is making a loop in the gastric body with the side hole and tip projecting over the proximal gastric body near the GE junction. Xray Abdomen AP View [Apr 25 2018 8:33AM] Impression: [Low lung volumes and continued for hilar congestion without jonny pulmonary edema. Bibasilar pleural effusions, left greater than right. Medical appliances as noted above.] UNSIGNED REPOR Xray Chest 1 View [Apr 24 2018 10:08PM] Impression: [Enteric tube deflecting off the gastric fundus with proximal side-hole and distal tip overlying the gastric body. UNSIGNED REPOR Xray Abdomen AP View [Apr 24 2018 9:59PM] Assessment: Impression: Patient with h/o HTN (on Bisoprolol, Clonidine and Amlodepine at home) currently admitted for the following surgeries: 04/14/18 he underwent ex lap with takedown of ileocolic anastomosis and fistula take dwon with redo of ileocolic anastomosis, and was also found to have small enterovesical fistula that was taken down and primarily repaired and primary ventral hernia repair with placement of subcutaneous MADISON drain. -OR on 04/17/18 for ex-lap, evacuation of hematoma, omentectomy, abthera wound vac -OR 04/21/18 Underwent second look laparotomy, resection of ischemic segment of jejunum, left in discontinuity, and abthera placed over open abdomen on 04/21/2018. -OR on 04/22/18 for exploration resection of proximal jejunal limb with stapler and oversew of staple line, serosal patch placed with proximal jejunal staple line, Left in discontinuity, Abdominal washout, Abthera vac placement -OR 04/24/18 exploratory laparotomy, small bowel resection and anastomosis, vicryl mesh closure He was reportedly with AF per-OP, however, review of all the EKGs on his chart (also on [place] EKG) with no evidence of AF (only Sinus rhythm). He was put on Metoprolol 100 mg BID and was noted to have episodes of sinus/junctional bradycardia asymptomatic and occurs at night while asleep. On interview, he is asymptomatic with no CP, SOB, palpitations or syncope. His HR went from 60s at rest to 70s when he stood up with no lightheadedness or dizziness. Recommendations: -Asymptomatic bradycardia in the setting of AV alexis blocking agent use (Metoprolol) and evidence for chronotropic competence (HR improve with activity); this is considered a benign that is self limiting. -Please d/c Metoprolol (given only indication is HTN and BB is not considered first line agent for treatment of HTN), you could consider Choltialadone or HCTZ 25/Lisinopril 10 mg daily as an alternative regimen. -if he continue to have sinus bradycardia despite holding Metoprolol at night, then you could consider screening for sleep apnea (he has h/o DEBBIE that resolved since he lost weight). Thank you for the very interesting consultation and the opportunity to participate in care. Will sign off Please call with questions. Staffed with Signature/Cosignature/Attesta tion: Attending AttestationI saw and evaluated the patient. I personally obtained the thibodeaux and critical portions of the history and physical exam or was physically present for thibodeaux and critical portions performed by the resident/fellow. I reviewed the resident/fellows documentation and discussed the patient with the resident/fellow. I agree with the resident/fellows medical decision making as documented in the residents note. I personally evaluated the patient (as noted in the above attestation) on 29-Apr-2018 Electronic Signatures: Cb Quinonez) (Signed 30-Apr-2018 11:09) Authored: Signature/Cosignature/Attesta tion Co-Signer: Service, History of Present Illness, Allergies, Objective, Assessment/Recommendations, Signature/Cosignature/Attesta tion Mani Fajardo (Fellow)) (Signed 29-Apr-2018 19:56) Authored: Service, History of Present Illness, Allergies, Objective, Assessment/Recommendations, Signature/Cosignature/Attesta tion Last Updated: 30-Apr-2018 11:09 by Cb Quinonez) Normal [facility] Daily Progress Note-Colorect al Surgeryon 04-29-2018 Daily Progress Note-Colorectal Surgery Service: Colorectal Surgery Subjective Data: ADEN PATEL is a 67 year old Male who is Hospital Day # 17 and POD #5 for exploratory laparotomy, small bowel resection and anastomosis, vicryl mesh closure. no acute events overnight, tolerated diet, no N/V, having bowel function. Objective Data: Objective Information: ---- Intake and Output ----- Mn/Dy/Year TimeIntakeOutputNet Apr 29, 2018 6:00 [id number] Apr 28, 2018 10:00 [id number] Apr 28, 2018 2:00 [id number] The Intake and Output Totals for the last 24 hours are: IntakeOutputNet [id number] T PRBPSpO2 Value36.47831479/12439% Date/Time04/29 8: 8: 8: 8:002 8:00 Range(36.6C - 36.9C ) (65 - 76 ) (18 - 18 ) (140 - 178 )/ (81 - 94 ) (96% - 100% ) Highest temp of 36.9 C was recorded at 04/29 8:00 Physical Exam: Constitutional: NAD, awake and alert Eyes: sclera nonicteric ENMT: mmm Respiratory/Thorax: symmetrical chest rise, nonlabored breathing Cardiovascular: regular rate Gastrointestinal: abd soft, minimally tender, nondistended, midline incision Genitourinary: voiding on own Musculoskeletal: mckeon Neurological: alert and oriented Lymphatic: no LE edema Psychological: normal mood Skin: warm and dry Medication: Medications: ANTI-INFECTIVES: 1. Fluconazole 400 mg IVPB/ Premixed NS 200 mL: 200 mL IntraVenous Piggyback Every 24 Hours 2. Piperacillin - Tazobactam 3.375 gram/Iso-osmotic 50 mL Premix IVPB: 50 mL IntraVenous Piggyback Every 6 Hours CARDIOVASCULAR AGENTS: 1. Metoprolol Tartrate: 100 mg Oral Every 12 Hours CENTRAL NERVOUS SYSTEM AGENTS: 1. HYDROmorphone Injectable: 0.2 mg IntraVenous Push Every 2 Hours PRN 2. Ondansetron Injectable: 4 mg IntraVenous Push Every 6 Hours PRN COAGULATION MODIFIERS: 1. Heparin Flush 10 unit/ mL PF Injectable PRN: 5 mL IntraVenous Flush According to Flush Policy PRN 2. Heparin Flush 10 unit/ mL PF Injectable PRN: 5 mL IntraVenous Flush According to Flush Policy PRN 3. Heparin SubCutaneous: 5000 unit(s) SubCutaneous Every 8 Hours GASTROINTESTINAL AGENTS: 1. Pantoprazole Injectable: 40 mg IntraVenous Push Every 12 Hours METABOLIC AGENTS: 1. Insulin Lispro Customizable Corrective Scale: unit(s) SubCutaneous Every 6 Hours 2. Allopurinol: 300 mg Oral Every 24 Hours 3. Dextrose 50% in Water Injectable: 25 gram(s) IntraVenous Push Every 15 Minutes PRN 4. Glucagon Injectable: 1 mg IntraMuscular Every 15 Minutes PRN MISCELLANEOUS AGENTS: 1. Nicotine 21 mg/ 24 hour TransDermal: 1 patch TransDermal Every 24 Hours NUTRITIONAL PRODUCTS: 1. Fat Emulsion 20% (SMOFLIPID) Infusion: 240 mL IntraVenous Piggyback Every 24 Hours 2. Sodium Chloride 0.9% Injectable Flush PRN: 10 mL IntraVenous Flush According to Flush Policy PRN TOPICAL AGENTS: 1. Lidocaine 5% TransDermal: 1 patch TransDermal Every 24 Hours Assessment and Plan: Assessment: 67yo M with Hx perforated appendicitis requiring appendectomy and ileocolic resection at OSH 07/2017 complicated by enterocutaneous fistula. OR 04/14/18 he underwent ex lap with takedown of ileocolic anastomosis and fistula take dwon with redo of ileocolic anastomosis, and was also found to have small enterovesical fistula that was taken down and primarily repaired and primary ventral hernia repair with placement of subcutaneous MADISON drain. -OR on 04/17/18 for ex-lap, evacuation of hematoma, omentectomy, abthera wound vac -OR 04/21/18 Underwent second look laparotomy, resection of ischemic segment of jejunum, left in discontinuity, and abthera placed over open abdomen on 04/21/2018. -OR on 04/22/18 for exploration resection of proximal jejunal limb with stapler and oversew of staple line, serosal patch placed with proximal jejunal staple line, Left in discontinuity, Abdominal washout, Abthera vac placement -OR 04/24/18 exploratory laparotomy, small bowel resection and anastomosis, vicryl mesh closure Plan: Neuro: moderate pain control with meds - Continue on Dilaudid IV as needed - Add Tylenol around the clock and Oxycodone as needed for pain Cardiac History of HTN, AFib preoperatively, now regular and rate controlled - Continue central telemetry - Q 4 hours VS - Continue Metoprolol with hold parameters Pulm: unlabored on room air, lungs clear posteriorly, History of smoking - Incentive spirometry Q 1 hours - Encourage Ambulation - OOB - Continue Nicoderm patch GI- s/p takedown of EC fistula, complicated by hematoma - soft diet - Impact Advanced TID - stop TPN today - Increased diet to regular today - Zofran as needed for nausea - Continue PPI ; Voiding spontaneously - Strict intake and output - Trend renal function and replace electrolytes as needed - KCL 40 meq today, for hypokalemia - Maintenance fluids HL - Zofran PRN HEME: no signs of bleeding, H/H stable -trend CBC - in indication for transfusion at this time Endo Continues on insulin sliding scale while on TPN - SSI Q 6 hours - On Allopurinol for history of gout ID: Down trending leukocytosis, continues on ATB - Continues on Fluconazole and Zosyn - No indication for ATB- end date 04/29/18 Proph - Continue SCDs, Lovenox for DVT prevention - Pantoprazole Dispo - Continue regular nursing floor - PT rec SNF López Blake MD [facility]: [id number] Signature/Cosignature/Attesta tion: Attending AttestationI saw and evaluated the patient. I personally obtained the thibodeaux and critical portions of the history and physical exam or was physically present for thibodeaux and critical portions performed by the resident/fellow. I reviewed the resident/fellows documentation and discussed the patient with the resident/fellow. I agree with the resident/fellows medical decision making as documented in the residents note. I personally evaluated the patient (as noted in the above attestation) on 29-Apr-2018 Electronic Signatures: Nolvia Colmenares) (Signed 29-Apr-2018 19:32) Authored: Signature/Cosignature/Attesta tion Co-Signer: Service, Subjective Data, Objective Data, Assessment and Plan, Signature/Cosignature/Attesta tion López Blake (Fellow)) (Signed 29-Apr-2018 10:57) Authored: Service, Subjective Data, Objective Data, Assessment and Plan, Signature/Cosignature/Attesta tion Last Updated: 29-Apr-2018 19:32 by Nolvia Colmenares) Normal [facility] GLUCOSE-POCTon 04-29-2018 Glucose [Mass/Vol] 140 mg/dL High 74 - 99 [facility] Comment on above: Performed By: #### G VAISHALI ####[id number] [place] [address] Glucose [Mass/Vol] 151 mg/dL High 74 - 99 [facility] Comment on above: Performed By: #### G VAISHALI ####[id number] [place] [address] Glucose [Mass/Vol] 178 mg/dL High 74 - 99 [facility] Comment on above: Performed By: #### G VAISHALI ####[id number] [place] [address] Glucose [Mass/Vol] 148 mg/dL High 74 - 99 [facility] Comment on above: Performed By: #### G VAISHALI ####[id number] [place] [address] Glucose [Mass/Vol] 152 mg/dL High 74 - 99 [facility] Comment on above: Performed By: #### G VAISHALI ####[id number] [place] [address] MAGNESIUMon 04-29-2018 Magnesium [Mass/Vol] 1.71 mg/dL Normal 1.60 - 2.40 [facility] Comment on above: Performed By: #### M G ####[id number] [place] [address] RENAL FUNCTION PANELon 04-29 Albumin [Mass/Vol] 2.4 g/dL Low 3.4 - 5.0 [facility] Comment on above: Performed By: #### R ENAL ####[id number] [place] [address] Anion gap [Moles/Vol] 11 mmol/L Normal 10 - 20 [facility] Comment on above: Performed By: #### R ENAL ####[id number] [place] [address] Calcium [Mass/Vol] 7.8 mg/dL Low 8.6 - 10.6 [facility] Comment on above: Performed By: #### R ENAL ####[id number] [place] [address] Chloride [Moles/Vol] 103 mmol/L Normal 98 - 107 [facility] Comment on above: Performed By: #### R ENAL ####[id number] [place] [address] Creatinine [Mass/Vol] 0.65 mg/dL Normal 0.50 - 1.30 [facility] Comment on above: Performed By: #### R ENAL ####[id number] [place] [address] GFR- AM. >60 Normal >60 [facility] Comment on above: Result Comment: CALC ULATIONS OF ESTIMATED GFR ARE PERFORMED USING THE MDRD STUDY EQUATION FOR THE IDMS-TRACEABLE CREATININE METHODS. CLIN CHEM 2007;53:766-72 Performed By: #### R ENAL ####[id number] [place] [address] GFR-NON AM. >60 Normal >60 [facility] Comment on above: Performed By: #### R ENAL ####[id number] [place] [address] Glucose [Mass/Vol] 170 mg/dL High 74 - 99 [facility] Comment on above: Performed By: #### R ENAL ####[id number] [place] [address] HCO3 (Bld) [Moles/Vol] 26 mmol/L Normal 21 - 32 [facility] Comment on above: Performed By: #### R ENAL ####[id number] [place] [address] Phosphate [Mass/Vol] 2.6 mg/dL Normal 2.5 - 4.9 [facility] Comment on above: Result Comment: The performance characteristics of phosphorus testing in heparinized plasma have been validated by the individual laboratory site where testing is performed. Testing on heparinized plasma is not approved by the FDA; however, such approval is not necessary. Performed By: #### R ENAL ####[id number] [place] [address] Potassium [Moles/Vol] 3.6 mmol/L Normal 3.5 - 5.3 [facility] Comment on above: Performed By: #### R ENAL ####[id number] [place] [address] Sodium [Moles/Vol] 136 mmol/L Normal 136 - 145 [facility] Comment on above: Performed By: #### R ENAL ####[id number] [place] [address] Urea nitrogen [Mass/Vol] 17 mg/dL Normal 6 - 23 [facility] Comment on above: Performed By: #### R ENAL ####[id number] [place] [address] BASIC METABOLIC PANELon 02-0 Anion gap [Moles/Vol] 12 mmol/L Normal 10 - 20 [facility] Comment on above: Performed By: #### B MP ####[id number] [place] [address] Calcium [Mass/Vol] 7.7 mg/dL Low 8.6 - 10.6 [facility] Comment on above: Performed By: #### B MP ####[id number] [place] [address] Chloride [Moles/Vol] 108 mmol/L High 98 - 107 [facility] Comment on above: Performed By: #### B MP ####[id number] [place] [address] Creatinine [Mass/Vol] 0.69 mg/dL Normal 0.50 - 1.30 [facility] Comment on above: Performed By: #### B MP ####[id number] [place] [address] GFR- AM. >60 Normal >60 [facility] Comment on above: Result Comment: CALC ULATIONS OF ESTIMATED GFR ARE PERFORMED USING THE MDRD STUDY EQUATION FOR THE IDMS-TRACEABLE CREATININE METHODS. CLIN CHEM 2007;53:766-72 Performed By: #### B MP ####[id number] [place] [address] GFR-NON AM. >60 Normal >60 [facility] Comment on above: Performed By: #### B MP ####[id number] [place] [address] Glucose [Mass/Vol] 128 mg/dL High 74 - 99 [facility] Comment on above: Performed By: #### B MP ####[id number] [place] [address] HCO3 (Bld) [Moles/Vol] 26 mmol/L Normal 21 - 32 [facility] Comment on above: Performed By: #### B MP ####[id number] [place] [address] Potassium [Moles/Vol] 3.7 mmol/L Normal 3.5 - 5.3 [facility] Comment on above: Performed By: #### B MP ####[id number] [place] [address] Sodium [Moles/Vol] 142 mmol/L Normal 136 - 145 [facility] Comment on above: Performed By: #### B MP ####[id number] [place] [address] Urea nitrogen [Mass/Vol] 16 mg/dL Normal 6 - 23 [facility] Comment on above: Performed By: #### B MP ####[id number] [place] [address] CBCon 04-28-2018 Erythrocyte distribution width (RBC) [Ratio] 14.4 % Normal 11.5 - 14.5 [facility] Comment on above: Performed By: #### C BC ####[id number] [place] [address] Hematocrit (Bld) [Volume fraction] 25.6 % Low 41.0 - 52.0 [facility] Comment on above: Performed By: #### C BC ####[id number] [place] [address] Hemoglobin (Bld) [Mass/Vol] 8.4 g/dL Low 13.5 - 17.5 [facility] Comment on above: Performed By: #### C BC ####[id number] [place] [address] MCHC (RBC) [Mass/Vol] 32.8 g/dL Normal 32.0 - 36.0 [facility] Comment on above: Performed By: #### C BC ####[id number] [place] [address] MCV (RBC) [Entitic vol] 91 fL Normal 80 - 100 [facility] Comment on above: Performed By: #### C BC ####[id number] [place] [address] Nucleated RBC/100 WBC (Bld) [Ratio] 0.0 /100 WBC Normal 0.0-0.0 [facility] Comment on above: Performed By: #### C BC ####[id number] [place] [address] Platelets (Bld) [#/Vol] 408 10*3/uL Normal 150 - 450 [facility] Comment on above: Performed By: #### C BC ####[id number] [place] [address] RBC (Bld) [#/Vol] 2.80 x10E12/L Low 4.50 - 5.90 [facility] Comment on above: Performed By: #### C BC ####[id number] [place] [address] WBC (Bld) [#/Vol] 9.9 10*3/uL Normal 4.4 - 11.3 [facility] Comment on above: Performed By: #### C BC ####[id number] [place] [address] Daily Progress Note-Colorect al Surgeryon 04-28-2018 Daily Progress Note-Colorectal Surgery Service: Colorectal Surgery Subjective Data: ADEN PATEL is a 67 year old Male who is Hospital Day # 16 and POD #4 for exploratory laparotomy, small bowel resection and anastomosis, vicryl mesh closure. no acute events overnight, tolerated clear liquids yesterday, no n/v. Objective Data: Objective Information: ---- Intake and Output ----- Mn/Dy/Year [facility]Int[facility]Outs[facility] hospitalNet Apr 28, 2018 6:00 [id number] Apr 27, 2018 10:00 [id number] Apr 27, 2018 2:00 [id number] The Intake and Output Totals for the last 24 hours are: IntakeOutputNet [id number] T PRBPSpO2 Value36.08191838/8197% Date/Time04/28 11: 11: 11: 11: 11:23 Range(36.6C - 36.9C ) (64 - 71 ) (18 - 18 ) (146 - 171 )/ (78 - 85 ) (97% - 100% ) Highest temp of 36.9 C was recorded at 04/27 13:00 Physical Exam: Constitutional: NAD, awake and alert Eyes: sclera nonicteric ENMT: mmm Respiratory/Thorax: symmetrical chest rise, nonlabored breathing Cardiovascular: regular rate Gastrointestinal: abd soft, minimally tender, nondistended, midline incision Genitourinary: voiding on own Musculoskeletal: mckeon Neurological: alert and oriented Lymphatic: no LE edema Psychological: normal mood Skin: warm and dry Medication: Medications: Continuous Medications --- 1. TPN Standard- Amino Acids 5 % - Dextrose 15%: 2000 mL IntraVenous Scheduled Medications --- 1. Allopurinol: 300 mg Oral Every 24 Hours 2. Amino Acids 10% (Travasol) IV Piggy Back: 25 gram(s) IntraVenous Piggyback Every 24 Hours 3. Fat Emulsion 20% (SMOFLIPID) Infusion: 240 mL IntraVenous Piggyback Every 24 Hours 4. Fluconazole 400 mg IVPB/ Premixed NS 200 mL: 200 mL IntraVenous Piggyback Every 24 Hours 5. Heparin SubCutaneous: 5000 unit(s) SubCutaneous Every 8 Hours 6. Insulin Lispro Customizable Corrective Scale: unit(s) SubCutaneous Every 6 Hours 7. Metoprolol Tartrate: 100 mg Oral Every 12 Hours 8. Nicotine 21 mg/ 24 hour TransDermal: 1 patch TransDermal Every 24 Hours 9. Pantoprazole Injectable: 40 mg IntraVenous Push Every 12 Hours 10. Piperacillin - Tazobactam 3.375 gram/Iso-osmotic 50 mL Premix IVPB: 50 mL IntraVenous Piggyback Every 6 Hours PRN Medications --- 1. Dextrose 50% in Water Injectable: 25 gram(s) IntraVenous Push Every 15 Minutes 2. Glucagon Injectable: 1 mg IntraMuscular Every 15 Minutes 3. Heparin Flush 10 unit/ mL PF Injectable PRN: 5 mL IntraVenous Flush According to Flush Policy 4. Heparin Flush 10 unit/ mL PF Injectable PRN: 5 mL IntraVenous Flush According to Flush Policy 5. HYDROmorphone Injectable: 0.2 mg IntraVenous Push Every 2 Hours 6. Ondansetron Injectable: 4 mg IntraVenous Push Every 6 Hours 7. Sodium Chloride 0.9% Injectable Flush PRN: 10 mL IntraVenous Flush According to Flush Policy Recent Lab Results: Results: I have reviewed these laboratory results: Basic Metabolic Panel 28-Apr-2018 05:00:00 ResultValue Glucose, Serum 128 H NA 142 K 3.7 CL 108 H Bicarbonate, Serum 26 Anion Gap, Serum 12 BUN 16 CREAT 0.69 GFR-Non >60 GFR- >60 Calcium, Serum 7.7 L Complete Blood Count 28-Apr-2018 05:00:00 ResultValue White Blood Cell Count 9.9 Nucleated Erythrocyte Count 0.0 Red Blood Cell Count 2.80 L HGB 8.4 L HCT 25.6 L MCV 91 MCHC 32.8 PLT 408 RDW-CV 14.4 Magnesium, Serum 28-Apr-2018 05:00:00 ResultValue Magnesium, Serum 1.70 Assessment and Plan: Assessment: 67yo M with Hx perforated appendicitis requiring appendectomy and ileocolic resection at OSH 07/2017 complicated by enterocutaneous fistula. OR 04/14/18 he underwent ex lap with takedown of ileocolic anastomosis and fistula take dwon with redo of ileocolic anastomosis, and was also found to have small enterovesical fistula that was taken down and primarily repaired and primary ventral hernia repair with placement of subcutaneous MADISON drain. -OR on 04/17/18 for ex-lap, evacuation of hematoma, omentectomy, abthera wound vac -OR 04/21/18 Underwent second look laparotomy, resection of ischemic segment of jejunum, left in discontinuity, and abthera placed over open abdomen on 04/21/2018. -OR on 04/22/18 for exploration resection of proximal jejunal limb with stapler and oversew of staple line, serosal patch placed with proximal jejunal staple line, Left in discontinuity, Abdominal washout, Abthera vac placement -OR 04/24/18 exploratory laparotomy, small bowel resection and anastomosis, vicryl mesh closure Plan: Neuro: moderate pain control with meds - Continue on Dilaudid IV as needed - Add Tylenol around the clock and Oxycodone as needed for pain Cardiac History of HTN, AFib preoperatively, now regular and rate controlled - Continue central telemetry - Q 4 hours VS - Continue Metoprolol with hold parameters Pulm: unlabored on room air, lungs clear posteriorly, History of smoking - Incentive spirometry Q 1 hours - Encourage Ambulation - OOB - Continue Nicoderm patch GI- s/p takedown of EC fistula, complicated by hematoma, s/p washout with wound vac, now POD 2 from reanastomosis and wound closure - Impact Advanced TID - Continues on TPN via PICC line - Increased diet to regular today - Zofran as needed for nausea - Continue PPI ; Voiding spontaneously - Strict intake and output - Trend renal function and replace electrolytes as needed - KCL 40 meq today, for hypokalemia - Maintenance fluids HL - Zofran PRN HEME: no signs of bleeding, H/H stable -trend CBC - in indication for transfusion at this time Endo Continues on insulin sliding scale while on TPN - SSI Q 6 hours - On Allopurinol for history of gout ID: Down trending leukocytosis, continues on ATB - Continues on Fluconazole and Zosyn - No indication for ATB- end date 04/29/18 Proph - Continue SCDs, Lovenox for DVT prevention - Pantoprazole Dispo - Continue regular nursing floor - PT to see, HC vs SNF at discharge Discussed with attending physician, Dr. Sanjana Nieto MD PGY1 [facility]: [id number] Signature/Cosignature/Attesta tion: Attending AttestationI saw and evaluated the patient. I personally obtained the thibodeaux and critical portions of the history and physical exam or was physically present for thibodeaux and critical portions performed by the resident/fellow. I reviewed the resident/fellows documentation and discussed the patient with the resident/fellow. I agree with the resident/fellows medical decision making as documented in the residents note. I personally evaluated the patient (as noted in the above attestation) on 28-Apr-2018 Electronic Signatures: Nolvia Colmenares) (Signed 29-Apr-2018 19:32) Authored: Signature/Cosignature/Attesta tion Co-Signer: Service, Subjective Data, Objective Data, Assessment and Plan, Signature/Cosignature/Attesta tion Mana Nieto (Resident)) (Signed 28-Apr-2018 13:49) Authored: Service, Subjective Data, Objective Data, Assessment and Plan, Signature/Cosignature/Attesta tion Last Updated: 29-Apr-2018 19:32 by Nolvia Colmenares) [facility] Discharge [id number] Discharge Profile2 Discharge Orders: Anticipated Discharge Date: Anticipated Discharge [id number] Anticipated Discharge Time12:28 Problem List: Admitting Dx: Enterocutaneous fistula: Catalog Name: Fistula of intestine Additional Dx: Electrolyte imbalance: Catalog Name: Other disorders of electrolyte and fluid balance, not elsewhere classified Atrial fibrillation: Catalog Name: Unspecified atrial fibrillation Ischemia of small intestine: Catalog Name: Vascular disorder of intestine, unspecified Ventral hernia: Catalog Name: Ventral hernia without obstruction or gangrene Other pulmonary insufficiency, not elsewhere classified, following trauma and surgery: Catalog Name: Other postprocedural complications and disorders of respiratory system, not elsewhere classified Postoperative hemorrhagic shock: Catalog Name: Other postprocedural shock, initial encounter Acute kidney injury: Catalog Name: Acute kidney failure, unspecified Lactic acidosis: Catalog Name: Acidosis COPD with respiratory distress, acute: Catalog Name: Chronic obstructive pulmonary disease, unspecified Shock circulatory: Catalog Name: Shock, unspecified Medical History: Change in bowel habits: Catalog Name: Change in bowel habit Diet: Diet Consistency/Texturemechanical soft Hospital Course (Home Care/Gold Form): Hospital Course: Hospital Course: include significant abnormal lab values 67yo M with Hx perforated appendicitis requiring appendectomy and ileocolic resection at OSH 07/2017 complicated by enterocutaneous fistula. 04/14/18 he underwent ex lap with takedown of ileocolic anastomosis and fistula take dwon with redo of ileocolic anastomosis, and was also found to have small enterovesical fistula that was taken down and primarily repaired and primary ventral hernia repair with placement of subcutaneous MADISON drain. 04/16/2018 (POD2) patient lost consciousness while on the commode and was bleeding from his abdominal wound. On exam, dark venous blood was evacuating from the inferior aspect of his abdominal incision. Initially he was unresponsive, however, he spontaneously regained consciousness and began following commands and responding to verbal cues. He had a pulse throughout the event, his SBP was in the 80s, and he was maintaining his saturations. Pressure was held on the abdominal incision, fluid bolus was started, and patient was transferred to the SICU. Patient withas taken to the OR on 04/17/18 for ex-lap, evacuation of hematoma, omentectomy, abthera wound vac and was brought back to ICU intubated with open abdomen. Extubated on 04/19/18. Underwent second look laparotomy, resection of ischemic segment of jejunum, left in discontinuity, and abthera placed over open abdomen on 04/21/2018. On 04/22/18 was noticed to have bilious output in abthera vac and a new onset Afib with RVR. Patient was taken back to the OR on 04/22/18 for exploration resection of proximal jejunal limb with stapler and oversew of staple line, serosal patch placed with proximal jejunal staple line, Left in discontinuity, Abdominal washout, Abthera vac placement. Since that time patient supplemented with TPN for nutrition, but was ultimately advanced to soft diet which he tolerated well. Pt was noted to have several episodes of asymptomatic bradycardia overnight /-2/2 and was seen by cardiology. Cardiology recommended d/c home Metoprolol as he has no history of afib and this is not optimal anti-hypertensive medication. He was started on HCTZ and Losartan 25 mg each daily daily. (refused Lisinopril 2/2 to coughing in past). Provider FINAL REVIEW of Orders: Final Review: Final Review of Medication Reconciliation and Orders Completedby Physician Reviewing ProviderEzra Coburn MD (Resident) at 30-Apr-2018 09:37:29 Appointments: Follow-Up Appointment 01: Physician/Dept/Dae Yousif, Nurse Practitioner for Dr Colmenares Scheduled Date/[id number] 13:30 [facility] [address], [address], [facility] [address] Phone [phone] Commentsfollow up after hospital discharge Electronic Signatures: Hannah Chow (EXPRESSIVE THERAPIST-CEILING INSTALLER) (Signed 28-Apr-2018 13:01) Authored: Discharge Orders, Appointments, Gold Form - [employer] Product Manager Summary Ezra Coburn ( (Resident)) (Signed 30-Apr-2018 09:37) Authored: Discharge Orders, Hospital Course (Home Care/Gold Form), Provider FINAL REVIEW of Orders Last Updated: 30-Apr-2018 09:37 by Ezra Coburn ( (Resident)) Normal [facility] GLUCOSE-POCTon 04-28-2018 Glucose [Mass/Vol] 161 mg/dL High 74 - 99 [facility] Comment on above: Performed By: #### G VAISHALI ####[id number] [place] [address] Glucose [Mass/Vol] 139 mg/dL High 74 - 99 [facility] Comment on above: Performed By: #### G VAISHALI ####[id number] [place] [address] Glucose [Mass/Vol] 170 mg/dL High - 99 [facility] Comment on above: Performed By: #### G VAISHALI ####[id number] [place] [address] Glucose [Mass/Vol] 148 mg/dL High 74 - 99 [facility] Comment on above: Performed By: #### G VAISHALI ####[id number] [place] [address] Glucose [Mass/Vol] 165 mg/dL High 74 - 99 [facility] Comment on above: Performed By: #### G VAISHALI ####[id number] [place] [address] MAGNESIUMon 04-28-2018 Magnesium [Mass/Vol] 1.70 mg/dL Normal 1.60 - 2.40 [facility] Comment on above: Performed By: #### M G ####[id number] [place] [address] Nutrition Therapy-Follow Up - calorie counton 04-28-2018 Nutrition Therapy-Follow Up - calorie count Assessment Subjective/Objective: Note Type: Follow Up calorie count Note Authored by: Registered Dietitian Welt Butter Hand Pager Number: [phone] Nutrition Note: The patient is a 67 year old Male who is Hospital Day # 15 and POD #3 for exploratory laparotomy, small bowel resection and anastomosis, vicryl mesh closure. Verbal consult from CRS BI ARCHITECT to start calorie count. RDN hung folder on pt's door. Events reviewed: Pt started on Clinimix E / on 04/21 and advanced to continuous goal rate on 04/26. Transferred from ICU to [facility] on 04/26 and NGT removed. Pt started on CLD and diet advanced to soft this morning. Plan to run calorie count over the weekend to evaluate adequacy of PO intake and discontinue TPN. --> Diet: Soft + Impact AR --> Nutrient needs: 2000kcal/d; 115g pro/d Day 1 04/28/18: pt ate 100% grits and comoran muffin along with 50% of toast and omelet for breakfast this morning. Objective Information: Intake Output Enteral - Oral 360 mL Urine 800 mL IV Fluids 500 mL Drain 97.5 mL IV Nutrition 1081 mL BM: x1 04/28; x4 04/27 Recent Lab Results: Results: I have reviewed these laboratory results: Glucose_POCT Trending View [id number] 05:27:00 28-Apr-2018 01:24:00 Glucose-PEHE601 H 165 H Basic Metabolic Panel 28-Apr-2018 05:00:00 ResultValue Glucose, Serum 128 H NA 142 K 3.7 CL 108 H Bicarbonate, Serum 26 Anion Gap, Serum 12 BUN 16 CREAT 0.69 GFR-Non >60 GFR- >60 Calcium, Serum 7.7 L Complete Blood Count 28-Apr-2018 05:00:00 ResultValue White Blood Cell Count 9.9 Nucleated Erythrocyte Count 0.0 Red Blood Cell Count 2.80 L HGB 8.4 L HCT 25.6 L MCV 91 MCHC 32.8 PLT 408 RDW-CV 14.4 Magnesium, Serum 28-Apr-2018 05:00:00 ResultValue Magnesium, Serum 1.70 Current Active Medications/PN: Fat Emulsion 20% (SMOFLIPID) Infusion, 240 mL (SMOFLIPID) Every 24 Hours at 20 mL/hr, 21-Apr-2018 Pantoprazole Injectable, (PROTONIX) DOSE = 40 mg IntraVenous Push Every 12 Hours, 24-Apr-2018 Ondansetron Injectable, (ZOFRAN) DOSE = 4 mg IntraVenous Push Every 6 Hours, PRN Nausea, 24-Apr-2018 Piperacillin - Tazobactam 3.375 gram/Iso-osmotic 50 mL Premix IVPB, (ZOSYN) Every 6 Hours Recommended Infusion Time: 30 minute(s), 24-Apr-2018 Fluconazole 400 mg IVPB/ Premixed NS 200 mL, (DIFLUCAN) Every 24 Hours Recommended Infusion Time: 120 minute(s) Notes from Pharmacy: do not refrigerate, 25-Apr-2018 Amino Acids 10% (Travasol) IV Piggy Back, Dose 25 gram(s) IntraVenous Piggyback Every 24 Hours via PICC Line Recommended Infusion Time: 24 hour(s), 26-Apr-2018 TPN Standard- Amino Acids 5 % - Dextrose 15%, 2,000 mL Multivitamins 10 mL/Day Trace Elements 1 mL/Day Standard Electrolytes in TPN: Sodium 35 mEq/ L Acetate 80 mEq/ L Potassium 30 mEq/ L Chloride 39 mEq/ L Magnesium 5 mEq/ L Calcium 4.5 mEq/ L Phosphate 15 mmol/ L IntraVenous per Central Line Infuse at: 83 mL/hr Clinician Notes: Central Line, 26-Apr-2018 Allopurinol, Tablet (ZYLOPRIM) DOSE = 300 mg Oral Every 24 Hours, 27-Apr-2018 Insulin Lispro Customizable Corrective Scale, Give SubCutaneous Every 6 Hours Hypogylcemia Protocol Call LIP unit(s) if Blood Glucose is between 0 - 70 0 unit(s) if Blood Glucose is between 71 - 140 2 unit(s) if Blood Glucose is between 140 - 180 4 unit(s) if Blood Glucose is between 180 - 220 6 unit(s) if Blood Glucose is between 220 - 260 Notify Provider unit(s) if Blood Glucose is greater than 260, 27-Apr-2018 Magnesium Sulfate 2 gram/Sterile Water 50 mL Premix Soln, Once Recommended Infusion Time: 2 hour(s) Stop After 1 Doses, 28-Apr-2018 Potassium Chloride 40 mEq/Sterile Water 100 mL Premix IVPB, Once via Central Line Recommended Infusion Time: 4 hour(s) Stop After 1 Doses, 28-Apr-2018 Nutrition Orders: Impact Advance Recovery, Once Routine Special Instructions: Drink 3 cartons daily for 5 days. Nutrition services please send 15 cartons one time only. , 27-Apr-2018 Diet, Soft, 28-Apr-2018 Calorie Count, 28-Apr-2018, 28-Apr-2018 Nutrition Focused Physical Findings: Other Physical Findings: Skin: midline abd Edema: +1, generalized Estimated Needs: kcals/day: 2728-2583 gms protein/day: 115+ mL fluid/day: 0776-1611 or per MD Nutrition Diagnosis: Diagnosis1 ongoing. Dx: Altered GI function. related to surgery/acute illness as evidenced by multiple OR visits for GI surgery, pt currently with bowel in discontinuity, NPO or Clear liquid diet x 7 days (now improving). Additional Assessment Information: Nutrient needs adjusted slightly now that pt is on RNF. TPN continues but PO diet is now advanced to soft. Plan is to discontinue TPN as pt tolerates PO intake . Nutrition Interventions: Individualized Nutrition Prescription Provided for: diet, parenteral nutrition Ordered Supplements: Impact AR TID x 5 days (200kcal, 18g pro) Provided Nutrition Support Recommendations: TPN/lipids/travasol provides: 1994 kcal, 125 gms protein, 2482 ml total volume Coordination of Care with: ID miley, CRS BI ARCHITECT, RN Nutrition Goals: Goals: Nutrition Therapy: nutrition support goals are met within 48 hrs, Blood Glucose 80-180 mg/dl, promote healing Nutrition Goal Outcomes: new goals: oral intake > 75%, consume prescribed supplement, adequate PO fluid intake Outcomes Summary: Nutrition Therapy Progress: Nutrition Therapy: improving Outcome Summary: Nutritional Therapy: Altered GI NUTRITION RECOMMENDATIONS: Recommendations: 1. Continue soft diet as tolerated + encourage Impact AR RDN to assess results of calorie count on Monday 05/01 2. Can discontinue SMOFlipids now 3. Tomorrow, wean Clinimix E 5/15 to 40ml/hr. Continue at half rate and continue amino acids until pt is eating adequately. Nutrition Therapy Recommendations: Nutrition Therapy Recommendations: Please see RDN note / Dietitian Monitoring and Evaluation Plan: Monitoring and Evaluation Plan: po intake and tolerance, fluid intake/adequacy, vitamin/mineral intake, digestive function, Nutrition Support tolerance/adequacy, weight trend, urine volume, skin healing/integrity, labs Time Spent (minutes): 30 Nutrition Support: yes Electronic Signatures: Helen Mclean (HERRERA, RITA) (Signed 28-Apr-2018 10:31) Authored: Assessment Subjective/Objective, Nutrition Focused Physical Findings, Estimated Needs, Nutrition Diagnosis, Nutrition Interventions, Nutrition Goals, Nutrition Recommendations, Dietitian Monitoring and Evaluation Plan, Time Spent/Nutrition Support Last Updated: 28-Apr-2018 10:31 by Helen Mclean (HERRERA, RITA) Normal [facility] BASIC METABOLIC PANELon - Anion gap [Moles/Vol] 12 mmol/L Normal 10 - 20 [facility] Comment on above: Performed By: #### B MP ####[id number] [place] [address] Calcium [Mass/Vol] 7.6 mg/dL Low 8.6 - 10.6 [facility] Comment on above: Performed By: #### B MP ####[id number] [place] [address] Chloride [Moles/Vol] 107 mmol/L Normal 98 - 107 [facility] Comment on above: Performed By: #### B MP ####[id number] [place] [address] Creatinine [Mass/Vol] 0.74 mg/dL Normal 0.50 - 1.30 [facility] Comment on above: Performed By: #### B MP ####[id number] [place] [address] GFR- AM. >60 Normal >60 [facility] Comment on above: Result Comment: CALC ULATIONS OF ESTIMATED GFR ARE PERFORMED USING THE MDRD STUDY EQUATION FOR THE IDMS-TRACEABLE CREATININE METHODS. CLIN CHEM 2007;53:766-72 Performed By: #### B MP ####[id number] [place] [address] GFR-NON AM. >60 Normal >60 [facility] Comment on above: Performed By: #### B MP ####[id number] [place] [address] Glucose [Mass/Vol] 157 mg/dL High 74 - 99 [facility] Comment on above: Performed By: #### B MP ####[id number] [place] [address] HCO3 (Bld) [Moles/Vol] 27 mmol/L Normal 21 - 32 [facility] Comment on above: Performed By: #### B MP ####[id number] [place] [address] Potassium [Moles/Vol] 3.4 mmol/L Low 3.5 - 5.3 [facility] Comment on above: Performed By: #### B MP ####[id number] [place] [address] Sodium [Moles/Vol] 143 mmol/L Normal 136 - 145 [facility] Comment on above: Performed By: #### B MP ####[id number] [place] [address] Urea nitrogen [Mass/Vol] 14 mg/dL Normal 6 - 23 [facility] Comment on above: Performed By: #### B MP ####[id number] [place] [address] CBCon 04-27-2018 Erythrocyte distribution width (RBC) [Ratio] 14.7 % High 11.5 - 14.5 [facility] Comment on above: Performed By: #### C BC ####[id number] [place] [address] Hematocrit (Bld) [Volume fraction] 26.2 % Low 41.0 - 52.0 [facility] Comment on above: Performed By: #### C BC ####[id number] [place] [address] Hemoglobin (Bld) [Mass/Vol] 8.8 g/dL Low 13.5 - 17.5 [facility] Comment on above: Performed By: #### C BC ####[id number] [place] [address] MCHC (RBC) [Mass/Vol] 33.6 g/dL Normal 32.0 - 36.0 [facility] Comment on above: Performed By: #### C BC ####[id number] [place] [address] MCV (RBC) [Entitic vol] 89 fL Normal 80 - 100 [facility] Comment on above: Performed By: #### C BC ####[id number] [place] [address] Nucleated RBC/100 WBC (Bld) [Ratio] 0.0 /100 WBC Normal 0.0-0.0 [facility] Comment on above: Performed By: #### C BC ####[id number] [place] [address] Platelets (Bld) [#/Vol] 407 10*3/uL Normal 150 - 450 [facility] Comment on above: Performed By: #### C BC ####[id number] [place] [address] RBC (Bld) [#/Vol] 2.96 x10E12/L Low 4.50 - 5.90 [facility] Comment on above: Performed By: #### C BC ####[id number] [place] [address] WBC (Bld) [#/Vol] 11.6 10*3/uL High 4.4 - 11.3 [facility] Comment on above: Performed By: #### C BC ####[id number] [place] [address] Daily Progress Note-Colorect al Surgeryon 04-27-2018 Daily Progress Note-Colorectal Surgery Service: Colorectal Surgery Subjective Data: ADEN PATEL is a 67 year old Male who is Hospital Day # 15 and POD #3 for exploratory laparotomy, small bowel resection and anastomosis, vicryl mesh closure. No acute events overnight, afebrile with stable vital signs. Looks well today, sitting up in chair, denies nausea/emesis Continues on TPN Abdomen soft, appropriately tender Abdominal binder in placed, incision looks clean and dry, MADISON x2 with serous drainage OOB to chair this am. Objective Data: Objective Information: ---- Intake and Output ----- Mn/Dy/Year [facility]Int[facility]OutAt[facility] Apr 27, 2018 6:00 [id number] Apr 26, 2018 10:00 [id number] Apr 26, 2018 2:00 [id number] The Intake and Output Totals for the last 24 hours are: IntakeOutputNet [id number] T PRBPSpO2 Value36.33003051/8197% Date/Time04/27 6: 6: 6: 6: 6:53 Range(36.3C - 36.9C ) (66 - 80 ) (18 - 27 ) (144 - 167 )/ (74 - 96 ) (95% - 100% ) As of 27-Apr-2018 00:00:00, patient is on 0 L/min of oxygen via nasal cannula. Highest temp of 36.9 C was recorded at 04/26 16:00 Medication: Medications: Continuous Medications --- 1. TPN Standard- Amino Acids 5 % - Dextrose 15%: 2000 mL IntraVenous Scheduled Medications --- 1. Allopurinol: 300 mg Oral Every 24 Hours 2. Amino Acids 10% (Travasol) IV Piggy Back: 25 gram(s) IntraVenous Piggyback Every 24 Hours 3. Fat Emulsion 20% (SMOFLIPID) Infusion: 240 mL IntraVenous Piggyback Every 24 Hours 4. Fluconazole 400 mg IVPB/ Premixed NS 200 mL: 200 mL IntraVenous Piggyback Every 24 Hours 5. Heparin SubCutaneous: 5000 unit(s) SubCutaneous Every 8 Hours 6. Insulin Lispro Customizable Corrective Scale: unit(s) SubCutaneous Every 4 Hours 7. Metoprolol Tartrate: 100 mg Oral Every 12 Hours 8. Nicotine 21 mg/ 24 hour TransDermal: 1 patch TransDermal Every 24 Hours 9. Pantoprazole Injectable: 40 mg IntraVenous Push Every 12 Hours 10. Piperacillin - Tazobactam 3.375 gram/Iso-osmotic 50 mL Premix IVPB: 50 mL IntraVenous Piggyback Every 6 Hours PRN Medications --- 1. Dextrose 50% in Water Injectable: 25 gram(s) IntraVenous Push Every 15 Minutes 2. Glucagon Injectable: 1 mg IntraMuscular Every 15 Minutes 3. Heparin Flush 10 unit/ mL PF Injectable PRN: 5 mL IntraVenous Flush According to Flush Policy 4. Heparin Flush 10 unit/ mL PF Injectable PRN: 5 mL IntraVenous Flush According to Flush Policy 5. HYDROmorphone Injectable: 0.2 mg IntraVenous Push Every 2 Hours 6. Ondansetron Injectable: 4 mg IntraVenous Push Every 6 Hours 7. Sodium Chloride 0.9% Injectable Flush PRN: 10 mL IntraVenous Flush According to Flush Policy Recent Lab Results: Results: I have reviewed these laboratory results: Basic Metabolic Panel 27-Apr-2018 04:51:00 ResultValue Glucose, Serum 157 H NA 143 K 3.4 L CL 107 Bicarbonate, Serum 27 Anion Gap, Serum 12 BUN 14 CREAT 0.74 GFR-Non >60 GFR- >60 Calcium, Serum 7.6 L Complete Blood Count 27-Apr-2018 04:51:00 ResultValue White Blood Cell Count 11.6 H Nucleated Erythrocyte Count 0.0 Red Blood Cell Count 2.96 L HGB 8.8 L HCT 26.2 L MCV 89 MCHC 33.6 PLT 407 RDW-CV 14.7 H Magnesium, Serum 27-Apr-2018 04:51:00 ResultValue Magnesium, Serum 1.79 Assessment and Plan: Assessment: 67yo M with Hx perforated appendicitis requiring appendectomy and ileocolic resection at OSH 07/2017 complicated by enterocutaneous fistula. OR 04/14/18 he underwent ex lap with takedown of ileocolic anastomosis and fistula take dwon with redo of ileocolic anastomosis, and was also found to have small enterovesical fistula that was taken down and primarily repaired and primary ventral hernia repair with placement of subcutaneous MADISON drain. -OR on 04/17/18 for ex-lap, evacuation of hematoma, omentectomy, abthera wound vac -OR 04/21/18 Underwent second look laparotomy, resection of ischemic segment of jejunum, left in discontinuity, and abthera placed over open abdomen on 04/21/2018. -OR on 04/22/18 for exploration resection of proximal jejunal limb with stapler and oversew of staple line, serosal patch placed with proximal jejunal staple line, Left in discontinuity, Abdominal washout, Abthera vac placement -OR 04/24/18 exploratory laparotomy, small bowel resection and anastomosis, vicryl mesh closure Moved to regular nursing floor yesterday, interval removal of NGT. Sitting up in chair today, looks well, pain moderately controlled, denies nausea or emesis. Will give him limited clears today. Plan: Neuro: moderate pain control with meds - Continue on Dilaudid IV as needed - Add Tylenol around the clock and Oxycodone as needed for pain Cardiac History of HTN, AFib preoperatively, now regular and rate controlled - Continue central telemetry - Q 4 hours VS - Continue Metoprolol with hold parameters Pulm: unlabored on room air, lungs clear posteriorly, History of smoking - Incentive spirometry Q 1 hours - Encourage Ambulation - OOB - Continue Nicoderm patch GI- s/p takedown of EC fistula, complicated by hematoma, s/p washout with wound vac, now POD 2 from reanastomosis and wound closure - Impact Advanced TID - Continues on TPN via PICC line - Increased diet to limited clears today - Zofran as needed for nausea - Continue PPI ; Voiding spontaneously - Strict intake and output - Trend renal function and replace electrolytes as needed - KCL 40 meq today, for hypokalemia - Maintenance fluids HL HEME: no signs of bleeding, H/H stable -trend CBC - in indication for transfusion at this time Endo Continues on insulin sliding scale while on TPN - SSI Q 6 hours - On Allopurinol for history of gout ID: Down trending leukocytosis, continues on ATB - Continues on Fluconazole and Zosyn - No indication for ATB- end date 04/29/18 Proph - Continue SCDs, Lovenox for DVT prevention Dispo - Continue regular nursing floor - PT to see, HC vs SNF at discharge Discussed with surgical team Edwin Chow APRN-CEILING INSTALLER [place] [id number] Electronic Signatures: Hannah Chow (EXPRESSIVE THERAPIST-CEILING INSTALLER) (Signed 27-Apr-2018 12:16) Authored: Service, Subjective Data, Objective Data, Assessment and Plan, Signature/Cosignature/Attesta tion Last Updated: 27-Apr-2018 12:16 by Hannah Chow (EXPRESSIVE THERAPIST-CEILING INSTALLER) Normal [facility] GLUCOSE-POCTon 04-27-2018 Glucose [Mass/Vol] 146 mg/dL High 74 - 99 [facility] Comment on above: Performed By: #### G VAISHALI ####[id number] [place] [address] Glucose [Mass/Vol] 162 mg/dL High 74 - 99 [facility] Comment on above: Performed By: #### G VAISHALI ####[id number] [place] [address] Glucose [Mass/Vol] 141 mg/dL High 74 - 99 [facility] Comment on above: Performed By: #### G VAISHALI ####[id number] [place] [address] Glucose [Mass/Vol] 163 mg/dL High 74 - 99 [facility] Comment on above: Performed By: #### G VAISHALI ####[id number] [place] [address] Glucose [Mass/Vol] 128 mg/dL High 74 - 99 [facility] Comment on above: Performed By: #### G VAISHALI ####[id number] [place] [address] MAGNESIUMon 04-27-2018 Magnesium [Mass/Vol] 1.79 mg/dL Normal 1.60 - 2.40 [facility] Comment on above: Performed By: #### M G ####[id number] [place] [address] CALCIUM, IONIZEDon 9 CALCIUM,IONIZED 1.11 mmol/L Normal 1.10 - 1.33 [facility] Comment on above: Result Comment: The performance characteristics of ionized calcium tested in heparinized plasma or serum have been validated by the individual laboratory site where testing is performed. Testing on heparinized plasma or serum is not approved by the FDA; however, such approval is not necessary. Performed By: #### I ONC1 ####[id number] [place] [address] CBCon 04-26-2018 Erythrocyte distribution width (RBC) [Ratio] 14.7 % High 11.5 - 14.5 [facility] Comment on above: Performed By: #### C BC ####[id number] [place] [address] Hematocrit (Bld) [Volume fraction] 26.0 % Low 41.0 - 52.0 [facility] Comment on above: Performed By: #### C BC ####[id number] [place] [address] Hemoglobin (Bld) [Mass/Vol] 8.7 g/dL Low 13.5 - 17.5 [facility] Comment on above: Performed By: #### C BC ####[id number] [place] [address] MCHC (RBC) [Mass/Vol] 33.5 g/dL Normal 32.0 - 36.0 [facility] Comment on above: Performed By: #### C BC ####[id number] [place] [address] MCV (RBC) [Entitic vol] 92 fL Normal 80 - 100 [facility] Comment on above: Performed By: #### C BC ####[id number] [place] [address] Nucleated RBC/100 WBC (Bld) [Ratio] 0.0 /100 WBC Normal 0.0-0.0 [facility] Comment on above: Performed By: #### C BC ####[id number] [place] [address] Platelets (Bld) [#/Vol] 364 10*3/uL Normal 150 - 450 [facility] Comment on above: Performed By: #### C BC ####[id number] [place] [address] RBC (Bld) [#/Vol] 2.84 x10E12/L Low 4.50 - 5.90 [facility] Comment on above: Performed By: #### C BC ####[id number] [place] [address] WBC (Bld) [#/Vol] 12.7 10*3/uL High 4.4 - 11.3 [facility] Comment on above: Performed By: #### C BC ####[id number] [place] [address] Erythrocyte distribution width (RBC) [Ratio] 15.3 % High 11.5 - 14.5 [facility] Comment on above: Performed By: #### C BC ####[id number] [place] [address] Hematocrit (Bld) [Volume fraction] 27.1 % Low 41.0 - 52.0 [facility] Comment on above: Performed By: #### C BC ####[id number] [place] [address] Hemoglobin (Bld) [Mass/Vol] 8.5 g/dL Low 13.5 - 17.5 [facility] Comment on above: Performed By: #### C BC ####[id number] [place] [address] MCHC (RBC) [Mass/Vol] 31.4 g/dL Low 32.0 - 36.0 [facility] Comment on above: Performed By: #### C BC ####[id number] [place] [address] MCV (RBC) [Entitic vol] 97 fL Normal 80 - 100 [facility] Comment on above: Performed By: #### C BC ####[id number] [place] [address] Nucleated RBC/100 WBC (Bld) [Ratio] 0.0 /100 WBC Normal 0.0-0.0 [facility] Comment on above: Performed By: #### C BC ####[id number] [place] [address] Platelets (Bld) [#/Vol] 321 10*3/uL Normal 150 - 450 [facility] Comment on above: Performed By: #### C BC ####[id number] [place] [address] RBC (Bld) [#/Vol] 2.78 x10E12/L Low 4.50 - 5.90 [facility] Comment on above: Performed By: #### C BC ####[id number] [place] [address] WBC (Bld) [#/Vol] 13.4 10*3/uL High 4.4 - 11.3 [facility] Comment on above: Performed By: #### C BC ####[id number] [place] [address] COAGULATION SCREENon 019 aPTT Coag (Bld) [Time] 31 s Normal 28 - 38 [facility] Comment on above: Result Comment: THE APTT IS NO LONGER USED FOR MONITORING UNFRACTIONATED HEPARIN THERAPY. FOR MONITORING HEPARIN THERAPY, USE THE HEPARIN ASSAY. Performed By: #### C OAGS ####[id number] [place] [address] INR Coag (PPP) [Relative time] 1.1 {INR} Normal 0.9 - 1.1 [facility] Comment on above: Performed By: #### C OAGS ####[id number] [place] [address] PT Coag (PPP) [Time] 11.8 s Normal 9.7 - 12.7 [facility] Comment on above: Performed By: #### C OAGS ####[id number] [place] [address] Daily Progress Note - Critic al Careon 04-26-2018 Daily Progress Note - Critical Care Subjective Data: ID Statement: ADEN PATEL is a 67 year old Male who is Hospital Day # 14 and ICU Day #3 and POD #2 for exploratory laparotomy, small bowel resection and anastomosis, vicryl mesh closure. Objective Data: Objective Information T PRBPSpO2 [id number]/8896% Date/Time04/26 4: 7: 7: 7: 7:00 Range(36C - 36.5C ) (59 - 80 ) (17 - 26 ) (98 - 168 )/ (62 - 97 ) (95% - 99% ) As of 26-Apr-2018 04:00:00, patient is on 2 L/min of oxygen via nasal cannula. Pain reported at 04/25 13:00: 3 Pain reported at 04/26 4:00: 0 Direct Arterial Blood Pressure [id number](91 - 141)04/25 12:00 Diastolic (mm Hg)77(52 - 77)04/25 12:00 Mean (mm Hg)82(70 - 84)04/25 12:00 Pulse Pressure (mm Hg)14(14 - 80)04/25 12:00 ---- Intake and Output ----- Mn/Dy/Year TimeIntakeOutputNet Apr 26, 2018 6:00 [id number] Apr 25, 2018 10:00 [id number] Apr 25, 2018 2:00 [id number] The Intake and Output Totals for the last 24 hours are: IntakeOutputNet [id number] Drain and tube details (included in I&O totals) 705 cc Indwelling Catheter - Urethral( 26-Apr-2018 06:00:00 ) Weights 04/25 8:00: Med Calc Weight (kg) (MED CALC WEIGHT (kg)) 96.6 Physical Exam: Physical Exam: Neurological: sedated on precedex, responsive to verbal stimuli, oriented to self Cardiovascular: RRR with rate 60s, no appreciated murmurs Respiratory/Thorax: Patent airways, CTAB, normal breath sounds over anterior chest with good chest expansion, thorax symmetric Genitourinary: Mir catheter in place producing clear yellow urine Gastrointestinal: soft, non distended, bandage over midline abd incision that is clean/dry/intact. L MADISON drain is subcutaneous draining small amt of serosanguinous fluid. R MADISON drain is subcutaneous draining small amt of serosanguinous fluid. Skin: Warm and dry, no lesions, no rashes Musculoskeletal: moves all extremities, generalized weakness Constitutional: Well developed, awake/alert/oriented x1 (to self only), no acute distress. Pt was confused/CAM positive post op Eyes: EOMI, clear sclera ENMT: mucous membranes moist, no apparent injury, no lesions seen, nasal cannula in place, NG tube in place Head/Neck: NC/AT Extremities: thin lower extremities, no edema Allergies: Allergies: No Known Allergies: Medications: Medications: ANTI-INFECTIVES: 1. Fluconazole 400 mg IVPB/ Premixed NS 200 mL: 200 mL IntraVenous Piggyback Every 24 Hours 2. Piperacillin - Tazobactam 3.375 gram/Iso-osmotic 50 mL Premix IVPB: 50 mL IntraVenous Piggyback Every 6 Hours CARDIOVASCULAR AGENTS: 1. Metoprolol Injectable: 10 mg IntraVenous Push Every 4 Hours 2. hydrALAZINE (APRESOLINE) Injectable: 20 mg IntraVenous Push Every 6 Hours PRN CENTRAL NERVOUS SYSTEM AGENTS: 1. HYDROmorphone Injectable: 0.2 mg IntraVenous Push Every 2 Hours PRN 2. Ondansetron Injectable: 4 mg IntraVenous Push Every 6 Hours PRN COAGULATION MODIFIERS: 1. Heparin Flush 10 unit/ mL PF Injectable PRN: 5 mL IntraVenous Flush According to Flush Policy PRN 2. Heparin Flush 10 unit/ mL PF Injectable PRN: 5 mL IntraVenous Flush According to Flush Policy PRN 3. Heparin SubCutaneous: 5000 unit(s) SubCutaneous Every 8 Hours GASTROINTESTINAL AGENTS: 1. Pantoprazole Injectable: 40 mg IntraVenous Push Every 12 Hours METABOLIC AGENTS: 1. Insulin Lispro Customizable Corrective Scale: unit(s) SubCutaneous Every 4 Hours 2. Dextrose 50% in Water Injectable: 25 gram(s) IntraVenous Push Every 15 Minutes PRN 3. Glucagon Injectable: 1 mg IntraMuscular Every 15 Minutes PRN MISCELLANEOUS AGENTS: 1. Nicotine 21 mg/ 24 hour TransDermal: 1 patch TransDermal Every 24 Hours NUTRITIONAL PRODUCTS: 1. Fat Emulsion 20% (SMOFLIPID) Infusion: 240 mL IntraVenous Piggyback Every 24 Hours 2. TPN Standard- Amino Acids 5% - Dextrose 20%: 1000 mL IntraVenous Via Cycle Rates 3. Calcium Chloride IVPB: 0.5 gram(s) IntraVenous Piggyback Every 8 Hours PRN 4. Magnesium Sulfate 2 gram/Sterile Water 50 mL Premix Soln: 2 gram(s) IntraVenous Piggyback Every 6 Hours PRN 5. Sodium Chloride 0.9% Injectable Flush PRN: 10 mL IntraVenous Flush According to Flush Policy PRN Recent Lab Results: Results: CBC: 04/26/2018 02:16 \ Hgb / \ 8.5 L / WBC Plt 13.4 H 321 / Hct \ / 27.1 L \ RBC: 2.78 L MCV: 97 RFP: 04/26/2018 02:16 NA+ Cl- BUN / 137 104 19 / --- Glucose Canceled K+ HCO3- Creat \ 4.7 25 0.80 \ Calcium : 7.4 LAnion Gap : 13 Albumin : 2.1 L Phos : 4.2 Coagulation: 04/26/2018 02:16 PT / 11.8 / -------< INR < 1.1 PTT\ 31 \ Assessment and Plan: Daily Risk Screen: Does patient have a central lineyes Central Line TypePICC Plan for PICC line removal todayno The patient continues to require PICC access forparenteral nutrition Does patient have an indwelling urinary catheterno Is the patient intubatedno Other: Diagnosis: Assessment: 67yo M with PMH of HTN, complicated left sided diverticulitis with perforation previously treated with abx, and perforated appendicitis requiring appendectomy and ileocolic resection at OSH 07/2017 c/b enterocutaneous fistula now s/p ex-lap with takedown of ileocolic anastomosis and fistula take down with redo of ileocolic anastomosis. A small enterovesical fistula was also taken down and primarily repaired as well as a primary ventral hernia repair with placement of subcutaneous MADISON drain on 04/14. Patient transferred to the SICU on 04/16 after a hypotensive episode and patient found to be unresponsive while on the commode. CT A/P with rectal contrast revealed hemoperitoneum and jejunal pneumatosis. Taken to OR 04/17 for ex-lap, evacuation of hematoma, omentectomy, and placement of abthera wound vac. 300mL of clot was evacuated from the omentum, oozing from the abdominal wall, jejunum with some patchy areas of ischemia, anastomosis viable and intact. 04/20 second look laparotomy, resection of ischemic/necrotic segment of jejunum, abdominal irrigation, left in discontinuity, placed wound vac. Now POD 1 from ex lap, small bowel resection with anastamosis, vicryl mesh closure. Problem List: bilious leak acute blood loss anemia- resolved Abdominal enterocutaneous fistula s/p repair Ventral hernia Hypertension MONTY- resolved s/p afib with RVR- in NSR now Plan: NEURO: a/o x3, OOBTC this AM. CAM negative. 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 On 04/22 AM he went into afib with rvr HRs 130s. NSR on tele this AM. - MAPs between 65-80mmHg - Continuous EKG monitoring - Goal MAP >65, SBP <170 - Volume resuscitate as clinically indicated - Hydralazine PRN for SBP >160 - Metoprolol 10mg every 4 hours (hold for HR <60, SBP <120) - Hold home antihypertensive meds PULM: Current everyday smoker, 20+ pack years. - Continue nasal cannula, IS, EZ pap - CXR as clinically indicated - IS q1h and OOB to chair - Nicotine patch q24h : No history of renal disease. MONTY, peak Cr 4.70 thus far. Baseline sCr 0.79. MONTY resolved. Mir d/c'd yesterday. - Goal UOP 0.5ml/kg/hr - RFP as clinically indicated, trend Cr - Replete electrolytes per SICU protocol. K goal >4, Mg goal >2.2 given his arrhythmias GI: History of complicated left sided diverticulitis with perforation, and perforated appendicitis requiring appendectomy and ileocolic resection at OSH 07/2017 c/b enterocutaneous fistula now s/p ex-lap with takedown of ileocolic anastomosis and fistula take down with redo of ileocolic anastomosis, small enterovesical fistula was also taken down and primarily repaired and primary ventral hernia repair with placement of subcutaneous MADISON drain on 04/14. CT A/P 04/17 concern for hemoperitoneum and jejunal pneumotosis. Return to OR on 04/17 for Ex-lap, hematoma evacuation. 04/20 jejunal resection left in discontinuity with wound vac in place. 04/22 exploratory laparotomy, resection of proximal jejunal limb with stapler and oversew of staple line. serosal patch placed with proximal jejunal staple line. Abthera vac placement. Now POD 1 from ex lap, small bowel resection with anastamosis, vicryl mesh closure on 04/24. Serosanguinous drain output. C/D/I incision, no evidence of saturation of incision. - NPO per colorectal - TPN for nutrition per colorectal - TPN has been started, appreciate nutrition recs - Record MADISON drainx2 output and characteristics - PPI prophylaxis HEME: Acute blood loss anemia; H/H stable. - CBC and coags as clinically indicated - Monitor drain output volume and characteristics - SCDs and SubQ Heparin for DVT prophylaxis. ENDO: No history of diabetes. Required 2 units insulin yesterday and 2 this AM per sliding scale. - Goal BG 140-180 - Accuchecks q4h - SSI per SICU protocol ID: Afebrile, no current indication of infection. Surgical prophylaxis - recieved Ancef and Flagyl intra-op - elevated white count, no fevers - blood cx 04/23: NGTD - Zosyn every 6 hours (04/20) > to be continued for 5 days post op (through Apr 29) - Started fluconazole 400mg daily on 04/23 per surgical team. > to be continued for 5 days post op (through Apr 29) Proph: SCDs SubQ heparin PPI Lines: L PIV PICC line - placed 04/21/2018 Dispo: Floor Team phone: [phone] Code Status: Code StatusFull Code Signature/Cosignature/Attesta tion: Comments/ Additional Findings 67 year-old male with hx of perforated diverticulitis and appendicitis ICA and appendectomy at OSH in July 2017. Post op course c/b by ECF and is now s/p following procedures: 04/14 s/p takedown ECF, revision ICA, takedown enterovesical fistula and VHR,. 04/17 Evidence of acute bleeding via wound on 04/17 taken back to for ex lap. 04/20 for second look laparotomy, resection of ischemic/necrotic segment of jejunum, left in discontinuity. abdominal irrigation, placement of abthera 04/24 ,exploratory laparotomy, small bowel resection and anastomosis, vicryl mesh closure Currently: Metabolic encephalopathy/ICU delirium- improved. alert and oriented x3 today Abd sepsis- continue anbx 5 days post op per CRS. Cultures from 04/23 neg Acute blood-loss anemia- Hb stable, continue to follow Acute (postop pulm insufficiency) , hx of smoking extubated. on nasal cannula. encouraged aggressive bronchopulm hygiene, incentive spirometry, etc MONTY- improving TPN Electronic Signatures: Augusto Traylor (Resident)) (Signed 26-Apr-2018 08:42) Authored: Subjective Data, Objective Data, Assessment and Plan Davis Del Valle) (Signed 26-Apr-2018 14:05) Authored: Assessment and Plan, Signature/Cosignature/Attesta tion Last Updated: 26-Apr-2018 14:05 by Davis Del Valle) Normal [facility] GLUCOSE-POCTon 04-26-2018 Glucose [Mass/Vol] 164 mg/dL High 74 - 99 [facility] Comment on above: Performed By: #### G VAISHALI ####[id number] [place] [address] Glucose [Mass/Vol] 122 mg/dL High 74 - 99 [facility] Comment on above: Performed By: #### G VAISHALI ####[id number] [place] [address] Glucose [Mass/Vol] 158 mg/dL High 74 - 99 [facility] Comment on above: Performed By: #### G VAISHALI ####[id number] [place] [address] Glucose [Mass/Vol] 123 mg/dL High 74 - 99 [facility] Comment on above: Performed By: #### G VAISHALI ####[id number] [place] [address] Glucose [Mass/Vol] 180 mg/dL High 74 - 99 [facility] Comment on above: Performed By: #### G VAISHALI ####[id number] [place] [address] Glucose [Mass/Vol] 152 mg/dL High 74 - 99 [facility] Comment on above: Performed By: #### G VAISHALI ####[id number] [place] [address] MAGNESIUMon 04-26-2018 Magnesium [Mass/Vol] 2.20 mg/dL Normal 1.60 - 2.40 [facility] Comment on above: Performed By: #### M G ####[id number] [place] [address] Nutrition Therapy-Noteon Nutrition Therapy-Note Assessment Subjective/Objective: Note Type: Note Note Authored by: Deputy Probation Officer Medical Logistics Specialist Note: reviewed by Registered Dietitian Welt Butter Hand Pager Number: [phone] Nutrition Note: The patient is a 67 year old Male who is Hospital Day # 14 and ICU Day #3 and POD #2 for exploratory laparotomy, small bowel resection and anastomosis, vicryl mesh closure. RDN following up on TPN orders placed 04/21. Please advance to goal rate of TPN provided below. Objective Information: Intake Output IV Fluids 450 mL Urine 1530 mL IV Nutrition 1336.5 mL Drain 290 mL Medicated IV Drips 72 mL Recent Lab Results: Results: I have reviewed these laboratory results: Complete Blood Count 26-Apr-2018 13:53:00 ResultValue White Blood Cell Count 12.7 H Nucleated Erythrocyte Count 0.0 Red Blood Cell Count 2.84 L HGB 8.7 L HCT 26.0 L MCV 92 MCHC 33.5 PLT 364 RDW-CV 14.7 H Glucose_POCT Trending View [id number] 11:50:00 26-Apr-2018 08:28:00 26-Apr-2018 03:57:00 26-Apr-2018 00:36:00 25-Apr-2018 18:46:00 25-Apr-2018 16:53:00 [id number] H 123 H 180 H 152 H 119 H 154 H Renal Function Panel 26-Apr-2018 02:16:00 ResultValue NA 137 K 4.7 CL 104 Bicarbonate, Serum 25 Anion Gap, Serum 13 BUN 19 CREAT 0.80 GFR-Non >60 GFR- >60 Calcium, Serum 7.4 L Phosphorus, Serum 4.2 ALB 2.1 L Calcium, Ionized Level 26-Apr-2018 02:16:00 ResultValue Calcium, Ionized Level 1.11 Magnesium, Serum 26-Apr-2018 02:16:00 ResultValue Magnesium, Serum 2.20 Current Active Medications/PN: Fat Emulsion 20% (SMOFLIPID) Infusion, 240 mL (SMOFLIPID) Every 24 Hours at 20 mL/hr, 21-Apr-2018 Pantoprazole Injectable, (PROTONIX) DOSE = 40 mg IntraVenous Push Every 12 Hours, 24-Apr-2018 Ondansetron Injectable, (ZOFRAN) DOSE = 4 mg IntraVenous Push Every 6 Hours, PRN Nausea, 24-Apr-2018 HYDROmorphone Injectable, (DILAUDID) DOSE = 0.2 mg IntraVenous Push Every 2 Hours, PRN Pain - Mod (4-6), 24-Apr-2018 Insulin Lispro Customizable Corrective Scale, Give SubCutaneous Every 4 Hours Hypogylcemia Protocol Call LIP unit(s) if Blood Glucose is between 0 - 70 0 unit(s) if Blood Glucose is between 71 - 140 2 unit(s) if Blood Glucose is between 140 - 180 4 unit(s) if Blood Glucose is between 180 - 220 6 unit(s) if Blood Glucose is between 220 - 260 Notify Provider unit(s) if Blood Glucose is greater than 260, 24-Apr-2018 Piperacillin - Tazobactam 3.375 gram/Iso-osmotic 50 mL Premix IVPB, (ZOSYN) Every 6 Hours Recommended Infusion Time: 30 minute(s), 24-Apr-2018 Fluconazole 400 mg IVPB/ Premixed NS 200 mL, (DIFLUCAN) Every 24 Hours Recommended Infusion Time: 120 minute(s) Notes from Pharmacy: do not refrigerate, 25-Apr-2018 TPN Standard- Amino Acids 5 % - Dextrose 15%, 2,000 mL Multivitamins 10 mL/Day Trace Elements 1 mL/Day Standard Electrolytes in TPN: Sodium 35 mEq/ L Acetate 80 mEq/ L Potassium 30 mEq/ L Chloride 39 mEq/ L Magnesium 5 mEq/ L Calcium 4.5 mEq/ L Phosphate 15 mmol/ L IntraVenous per Central Line Infuse at: 83 mL/hr Clinician Notes: Central Line, 26-Apr-2018 Nutrition Orders: NPO, Routine ., 24-Apr-2018 Estimated Needs: kcals/day: 0996-3962 gms protein/day: 120+ mL fluid/day: 9467-8028 or per Nutrition Therapy Recommendations: Nutrition Therapy Recommendations: Please weigh pt daily. PARENTERAL NUTRITION RECOMMENDATIONS: Line: PICC Parenteral Nutrition Formula: Clinimix E AA 5% Dextrose 15% Goal Rate (mL/hr) 83. Other Instructions: Please reorder 10% travasol 250ml (25g pro). Multivitamin and Trace elements. 20% Lipids 250 mL run at 20 mL/hr x 12/hr = 240 mL/day Continue SMOF lipids as ordered. Goal - Parenteral Nutrition/Lipids will provide: Total kcals/day 1994. Total protein/day (gm) 125. Total volume (ml) 2482. Labs/Monitors: Blood Glucose frequency: every 6 hrs Weight: daily Additional Labs: renal panel and magnesium daily, replete electrolytes prn, triglycerides: check now and each week, LFT's check now and each week Time Spent (minutes): 45 Nutrition Support: yes Electronic Signatures: Ayde Mcclelland (DIET) (Signed 26-Apr-2018 15:20) Authored: Assessment Subjective/Objective, Estimated Needs, Nutrition Recommendations, Parenteral Nutrition Recommendations Michelle Becker (HERRERA, RITA) (Signed 26-Apr-2018 15:26) Authored: Assessment Subjective/Objective, Parenteral Nutrition Recommendations, Time Spent/Nutrition Support Last Updated: 26-Apr-2018 15:26 by Michelle Becker (HERRERA, RITA) Normal [facility] RENAL FUNCTION PANELon 04-26 Glucose [Mass/Vol] Canceled Normal [facility] Comment on above: Performed By: #### R ENAL ####[id number] [place] [address] Albumin [Mass/Vol] 2.1 g/dL Low 3.4 - 5.0 [facility] Comment on above: Performed By: #### R ENAL ####[id number] [place] [address] Anion gap [Moles/Vol] 13 mmol/L Normal 10 - 20 [facility] Comment on above: Performed By: #### R ENAL ####[id number] [place] [address] Calcium [Mass/Vol] 7.4 mg/dL Low 8.6 - 10.6 [facility] Comment on above: Performed By: #### R ENAL ####[id number] [place] [address] Chloride [Moles/Vol] 104 mmol/L Normal 98 - 107 [facility] Comment on above: Performed By: #### R ENAL ####[id number] [place] [address] Creatinine [Mass/Vol] 0.80 mg/dL Normal 0.50 - 1.30 [facility] Comment on above: Performed By: #### R ENAL ####[id number] [place] [address] GFR- AM. >60 Normal >60 [facility] Comment on above: Result Comment: CALC ULATIONS OF ESTIMATED GFR ARE PERFORMED USING THE MDRD STUDY EQUATION FOR THE IDMS-TRACEABLE CREATININE METHODS. CLIN CHEM 2007;53:766-72 Performed By: #### R ENAL ####[id number] [place] [address] GFR-NON AM. >60 Normal >60 [facility] Comment on above: Performed By: #### R ENAL ####[id number] [place] [address] HCO3 (Bld) [Moles/Vol] 25 mmol/L Normal 21 - 32 [facility] Comment on above: Performed By: #### R ENAL ####[id number] [place] [address] Phosphate [Mass/Vol] 4.2 mg/dL Normal 2.5 - 4.9 [facility] Comment on above: Result Comment: The performance characteristics of phosphorus testing in heparinized plasma have been validated by the individual laboratory site where testing is performed. Testing on heparinized plasma is not approved by the FDA; however, such approval is not necessary. Performed By: #### R ENAL ####[id number] [place] [address] Potassium [Moles/Vol] 4.7 mmol/L Normal 3.5 - 5.3 [facility] Comment on above: Performed By: #### R ENAL ####[id number] [place] [address] Sodium [Moles/Vol] 137 mmol/L Normal 136 - 145 [facility] Comment on above: Performed By: #### R ENAL ####[id number] [place] [address] Urea nitrogen [Mass/Vol] 19 mg/dL Normal 6 - 23 [facility] Comment on above: Performed By: #### R ENAL ####[id number] [place] [address] CALCIUM, IONIZEDon 01-29-201 9 CALCIUM,IONIZED 1.09 mmol/L Low 1.10 - 1.33 [facility] Comment on above: Result Comment: The performance characteristics of ionized calcium tested in heparinized plasma or serum have been validated by the individual laboratory site where testing is performed. Testing on heparinized plasma or serum is not approved by the FDA; however, such approval is not necessary. Performed By: #### I ONC1 ####[id number] [place] [address] CBCon 04-25-2018 Erythrocyte distribution width (RBC) [Ratio] 14.8 % High 11.5 - 14.5 [facility] Comment on above: Performed By: #### C BC ####[id number] [place] [address] Hematocrit (Bld) [Volume fraction] 29.5 % Low 41.0 - 52.0 [facility] Comment on above: Performed By: #### C BC ####[id number] [place] [address] Hemoglobin (Bld) [Mass/Vol] 9.5 g/dL Low 13.5 - 17.5 [facility] Comment on above: Performed By: #### C BC ####[id number] [place] [address] MCHC (RBC) [Mass/Vol] 32.2 g/dL Normal 32.0 - 36.0 [facility] Comment on above: Performed By: #### C BC ####[id number] [place] [address] MCV (RBC) [Entitic vol] 95 fL Normal 80 - 100 [facility] Comment on above: Performed By: #### C BC ####[id number] [place] [address] Nucleated RBC/100 WBC (Bld) [Ratio] 0.0 /100 WBC Normal 0.0-0.0 [facility] Comment on above: Performed By: #### C BC ####[id number] [place] [address] Platelets (Bld) [#/Vol] 286 10*3/uL Normal 150 - 450 [facility] Comment on above: Performed By: #### C BC ####[id number] [place] [address] RBC (Bld) [#/Vol] 3.10 x10E12/L Low 4.50 - 5.90 [facility] Comment on above: Performed By: #### C BC ####[id number] [place] [address] WBC (Bld) [#/Vol] 16.6 10*3/uL High 4.4 - 11.3 [facility] Comment on above: Performed By: #### C BC ####[id number] [place] [address] COAGULATION SCREENon 019 aPTT Coag (Bld) [Time] 30 s Normal 28 - 38 [facility] Comment on above: Result Comment: THE APTT IS NO LONGER USED FOR MONITORING UNFRACTIONATED HEPARIN THERAPY. FOR MONITORING HEPARIN THERAPY, USE THE HEPARIN ASSAY. Performed By: #### C OAGS ####[id number] [place] [address] INR Coag (PPP) [Relative time] 1.1 {INR} Normal 0.9 - 1.1 [facility] Comment on above: Performed By: #### C OAGS ####[id number] [place] [address] PT Coag (PPP) [Time] 11.7 s Normal 9.7 - 12.7 [facility] Comment on above: Performed By: #### C OAGS ####[id number] [place] [address] Clinical Event Note-Postop Radha magdaleno 04-25-2018 Clinical Event Note-Postop Check Event: Topic: Postop Check Details: Postoperative Check 67 yo M s/p ex lap, small bowel resection and anastomosis, vicryl mesh closure. No acute events postoperatively. Patient confused in SICU. VS HR 109, BP 138/76, SpO2 98% Labs reviewed and acceptable Physical Examination: Gen: Confused but calm Resp: Breathing unlabored on Cards: RRR GI: Soft, mildly distended, appropriately tender to palpation, incisions with dressing C/D/I, MADISON drain x2 with serosanguinous output : mir in place with clear yellow urine Extremities: no edema -Pain per SICU -Maintain NGT -NPO, TPN -Maintain mir Clara Eaton MD PGY1 General Surgery [facility] [id number] Electronic Signatures: Clara Eaton ( (Resident)) (Signed 25-Apr-2018 02:05) Authored: Event Last Updated: 25-Apr-2018 02:05 by Clara Eaton ( (Resident)) Normal [facility] Daily Progress Note - Critic al Care-SICUon 04-25-2018 Daily Progress Note - Critical Care-SICU Service: Critical Care Service: ServiceSICU Subjective Data: ID Statement: ADEN PATEL is a 67 year old Male who is Hospital Day # 13 and ICU Day #2 and POD #1 for exploratory laparotomy, small bowel resection and anastomosis, vicryl mesh closure. Pt went to the OR yesterday afternoon and had an ex lap, small bowel resection and anastamosis with vicryl mesh course. OR course was unremarkable. 2 drains were placed (L subQ, R intraabd). He was extubated, off pressors. EBL was 10. No products given. Pt was confused post op and was given Haldol 5mg and put on Precedex. This AM, he is sleeping comfortably. Remains in NSR, HDS. Objective Data: Objective Information T PRBPSpO2 [id number]/7297% Date/Time04/25 4: 6: 6: 6: 6:00 Range(36.9C - 37.2C ) (60 - 109 ) (17 - 33 ) (93 - 158 )/ (58 - 98 ) (91% - 98% ) As of 25-Apr-2018 04:00:00, patient is on 3% oxygen via nasal cannula. Highest temp of 37.2 C was recorded at 04/25 4:00 Pain reported at 04/25 4:00: 0 Direct Arterial Blood Pressure [id number](99 - 178)04/25 6:00 Diastolic (mm Hg)58(49 - 79)04/25 6:00 Mean (mm Hg)80(65 - 107)04/25 6:00 Pulse Pressure (mm Hg)76(24 - 105)04/25 6:00 [id number](99 - 178)04/24 14:55 Diastolic (mm Hg)76(49 - 79)04/24 14:55 Pulse Pressure (mm Hg)97(24 - 105)04/24 14:55 ---- Intake and Output ----- Mn/Dy/Year TimeIntakeOutputNet Apr 25, 2018 6:00 [id number] Apr 24, 2018 10:00 [id number] Apr 24, 2018 2:00 [id number] The Intake and Output Totals for the last 24 hours are: IntakeOutputNet [id number] Drain and tube details (included in I&O totals) 1430 cc Indwelling Catheter - Urethral( 25-Apr-2018 06:00:00 ) Physical Exam: Physical Exam: Neurological: sedated on precedex, responsive to verbal stimuli, oriented to self Cardiovascular: RRR with rate 60s, no appreciated murmurs Respiratory/Thorax: Patent airways, CTAB, normal breath sounds over anterior chest with good chest expansion, thorax symmetric Genitourinary: Mir catheter in place producing clear yellow urine Gastrointestinal: soft, non distended, bandage over midline abd incision that is clean/dry/intact. L MADISON drain is subcutaneous draining small amt of serosanguinous fluid. R MADISON drain is subcutaneous draining small amt of serosanguinous fluid. Skin: Warm and dry, no lesions, no rashes Musculoskeletal: moves all extremities, generalized weakness Constitutional: Well developed, awake/alert/oriented x1 (to self only), no acute distress. Pt was confused/CAM positive post op Eyes: EOMI, clear sclera ENMT: mucous membranes moist, no apparent injury, no lesions seen, nasal cannula in place, NG tube in place Head/Neck: NC/AT Extremities: thin lower extremities, no edema Allergies: Allergies: No Known Allergies: Recent Lab Results: Results: CBC: 04/25/2018 02:33 \ Hgb / \ 9.5 L / WBC Plt 16.6 H 286 / Hct \ / 29.5 L \ RBC: 3.10 L MCV: 95 RFP: 04/25/2018 02:33 NA+ Cl- BUN / 140 108 H 18 / --- Glucose 159 H K+ HCO3- Creat \ 4.3 25 0.88 \ Calcium : 7.3 LAnion Gap : 11 Albumin : 2.2 L Phos : 3.0 Coagulation: 04/25/2018 02:33 PT / 11.7 / -------< INR < 1.1 PTT\ 30 \ Fibrinogen: 482 H Assessment and Plan: Daily Risk Screen: Does patient have a central lineno Does patient have an indwelling urinary catheteryes Plan for indwelling urinary catheter removal todayyes Is the patient intubatedno Other: Diagnosis: Assessment: 67yo M with PMH of HTN, complicated left sided diverticulitis with perforation previously treated with abx, and perforated appendicitis requiring appendectomy and ileocolic resection at OSH 07/2017 c/b enterocutaneous fistula now s/p ex-lap with takedown of ileocolic anastomosis and fistula take down with redo of ileocolic anastomosis. A small enterovesical fistula was also taken down and primarily repaired as well as a primary ventral hernia repair with placement of subcutaneous MADISON drain on 04/14. Patient transferred to the SICU on 04/16 after a hypotensive episode and patient found to be unresponsive while on the commode. CT A/P with rectal contrast revealed hemoperitoneum and jejunal pneumatosis. Taken to OR 04/17 for ex-lap, evacuation of hematoma, omentectomy, and placement of abthera wound vac. 300mL of clot was evacuated from the omentum, oozing from the abdominal wall, jejunum with some patchy areas of ischemia, anastomosis viable and intact. 04/20 second look laparotomy, resection of ischemic/necrotic segment of jejunum, abdominal irrigation, left in discontinuity, placed wound vac. Now POD 1 from ex lap, small bowel resection with anastamosis, vicryl mesh closure. 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 On 04/22 AM he went into afib with rvr HRs 130s. Currently back in NSR - nsr THIS AM - MAPs between 65-80mmHg - Continuous EKG and ABP monitoring - Goal MAP >65, SBP <170 - Volume resuscitate as clinically indicated - Hydralazine PRN for SBP >160 (no longer using labetalol as before given that he's now had HR in the 60s with occasional sinus saba to the 50s) - Metoprolol 10mg every 4 hours (hold for HR <60, SBP <120) - Hold home antihypertensive meds PULM: Current everyday smoker, 20+ pack years - Continue nasal cannula, IS, EZ pap - CXR as clinically indicated - IS q1h and OOB to chair : No history of renal disease. MONTY, peak Cr 4.70 thus far. Baseline sCr 0.79. MONTY resolved - Goal UOP 0.5ml/kg/hr - RFP as clinically indicated, trend Cr - Replete electrolytes per SICU protocol. K goal >4, Mg goal >2.2 given his arrhythmias - d/c mir today once more awake/off sedation GI: History of complicated left sided diverticulitis with perforation, and perforated appendicitis requiring appendectomy and ileocolic resection at OSH 07/2017 c/b enterocutaneous fistula now s/p ex-lap with takedown of ileocolic anastomosis and fistula take down with redo of ileocolic anastomosis, small enterovesical fistula was also taken down and primarily repaired and primary ventral hernia repair with placement of subcutaneous MADISON drain on 04/14. CT A/P 04/17 concern for hemoperitoneum and jejunal pneumotosis. Return to OR on 04/17 for Ex-lap, hematoma evacuation. 04/20 jejunal resection left in discontinuity with wound vac in place. 04/22 exploratory laparotomy, resection of proximal jejunal limb with stapler and oversew of staple line. serosal patch placed with proximal jejunal staple line. Abthera vac placement. Now POD 1 from ex lap, small bowel resection with anastamosis, vicryl mesh closure on 04/24. - NPO per colorectal, nutrition rec's for TPN - Record MADISON drainx2 output and characteristics - PPI prophylaxis HEME: Acute blood loss anemia; H/H stable. - CBC and coags as clinically indicated - Monitor drain output volume and characteristics - SCDs and SubQ Heparin for DVT prophylaxis. ENDO: No history of diabetes. Required 2 units insulin yesterday and 2 this AM per sliding scale. - Goal BG 140-180 - Accuchecks q4h - SSI per SICU protocol ID: Afebrile, no current indication of infection. Surgical prophylaxis - recieved Ancef and Flagyl intra-op - elevated white count, no fevers - blood cx 04/23: NGTD - Zosyn every 6 hours (04/20) > to be continued for 5 days post op (through Apr 29) - Started fluconazole 400mg daily on 04/23 per surgical team. > to be continued for 5 days post op (through Apr 29) Proph: SCDs SubQ heparin PPI Lines: L PIV PICC line jonn > d/c today mir > d/c today Dispo: SICU purple team care for now Team phone: [phone] Seen and d/w Dr. Reymundo Wilkinson MD PGY2 Code Status: Code StatusFull Code Signature/Cosignature/Attesta tion: Comments/ Additional Findings 67 year-old male with hx of perforated diverticulitis and appendicitis ICA and appendectomy at OSH in July 2017. Post op course c/b by ECF and is now s/p following procedures: 04/14 s/p takedown ECF, revision ICA, takedown enterovesical fistula and VHR,. 04/17 Evidence of acute bleeding via wound on 04/17 taken back to for ex lap. 04/20 for second look laparotomy, resection of ischemic/necrotic segment of jejunum, left in discontinuity. abdominal irrigation, placement of abthera 04/24 ,exploratory laparotomy, small bowel resection and anastomosis, vicryl mesh closure Currently: Metabolic encephalopathy/ICU delirium- precedex overnight. off during day. Abd sepsis- continue anbx 5 days post op per CRS. Cultures from 04/23 neg Acute blood-loss anemia- Hb stable, continue to follow Acute (postop pulm insufficiency) , hx of smoking extubated. on nasal cannula. encouraged aggressive bronchopulm hygiene, incentive spiromety, etc MONTY- improving, creatinine downtrending TPN Critical Care PatientI have reviewed and evaluated the most recent data and results, personally examined the patient, and formulated the plan of care as presented above. This patient was critically ill and required continued critical care treatment. Teaching and any separately billable procedures are not included in the time calculation. Billing Provider Critical Care Time36 minute(s) Primary Critical Care Issue/Treatment (See Assessment and Plan for greater detail)-- This patient has significantly altered mental status (delirium, encephalopathy, coma, or anoxic brain damage). We are treating with appropriate medications, hemodynamic support, ventilatory and/or oxygenating support, as indicated, as well as doing intensive diagnostic evaluation and neurological monitoring. Please see assessment and plan above for greater detail.; -- This patient is believed to have sepsis. We are treating with appropriate agents (antibiotics, antifungals, and/or antivirals), fluids and/or pressors, as indicated, as well as intensive monitoring. Please see assessment and plan above for greater detail. Electronic Signatures: Davis Del Valle () (Signed 25-Apr-2018 14:14) Authored: Signature/Cosignature/Attesta tion Co-Signer: Service, Subjective Data, Objective Data, Assessment and Plan Ginger Wilkinson (Resident)) (Signed 25-Apr-2018 11:29) Authored: Service, Subjective Data, Objective Data, Assessment and Plan Last Updated: 25-Apr-2018 14:14 by Davis Del Valle) Normal [facility] Daily Progress Note-Colorect al Surgeryon 04-25-2018 Daily Progress Note-Colorectal Surgery Service: Colorectal Surgery Subjective Data: ADEN PATEL is a 67 year old Male who is Hospital Day # 13 and POD #1 for exploratory laparotomy, small bowel resection and anastomosis, vicryl mesh closure. No N/V. Pain controlled. NGT in place. Overnight Events: Patient had an uneventful night. Objective Data: Objective Information: T PRBPSpO2 [id number]/7597% Date/Time04/25 12: 14: 14: 13: 14:00 Range(36.2C - 37.2C ) (59 - 109 ) (17 - 33 ) (93 - 142 )/ (58 - 93 ) (91% - 99% ) As of 25-Apr-2018 12:00:00, patient is on 2% oxygen via nasal cannula. Highest temp of 37.2 C was recorded at 04/25 4:00 Physical Exam: Constitutional: Well developed, awake/alert/oriented x3, no distress, alert and cooperative Eyes: clear sclera Head/Neck: Left central line in place Respiratory/Thorax: Nonlabored breathing on room air Cardiovascular: NSR on monitor Gastrointestinal: Nondistended, soft, abthera in place, VAC with serous output Genitourinary: Mir with clear yellow urine Extremities: MCKEON x 4 Neurological: alert and oriented x3 Psychological: Appropriate mood and behavior Medication: Medications: Continuous Medications --- No continuous medications are active Scheduled Medications --- 1. Fat Emulsion 20% (SMOFLIPID) Infusion: 240 mL IntraVenous Piggyback Every 24 Hours 2. Fluconazole 400 mg IVPB/ Premixed NS 200 mL: 200 mL IntraVenous Piggyback Every 24 Hours 3. Heparin SubCutaneous: 5000 unit(s) SubCutaneous Every 8 Hours 4. Insulin Lispro Customizable Corrective Scale: unit(s) SubCutaneous Every 4 Hours 5. Metoprolol Injectable: 10 mg IntraVenous Push Every 4 Hours 6. Nicotine 21 mg/ 24 hour TransDermal: 1 patch TransDermal Every 24 Hours 7. Pantoprazole Injectable: 40 mg IntraVenous Push Every 12 Hours 8. Piperacillin - Tazobactam 3.375 gram/Iso-osmotic 50 mL Premix IVPB: 50 mL IntraVenous Piggyback Every 6 Hours 9. TPN Standard- Amino Acids 5% - Dextrose 20%: 1000 mL IntraVenous Via Cycle Rates PRN Medications --- 1. Calcium Chloride IVPB: 0.5 gram(s) IntraVenous Piggyback Every 8 Hours 2. Dextrose 50% in Water Injectable: 25 gram(s) IntraVenous Push Every 15 Minutes 3. Glucagon Injectable: 1 mg IntraMuscular Every 15 Minutes 4. Heparin Flush 10 unit/ mL PF Injectable PRN: 5 mL IntraVenous Flush According to Flush Policy 5. Heparin Flush 10 unit/ mL PF Injectable PRN: 5 mL IntraVenous Flush According to Flush Policy 6. hydrALAZINE (APRESOLINE) Injectable: 20 mg IntraVenous Push Every 6 Hours 7. HYDROmorphone Injectable: 0.2 mg IntraVenous Push Every 2 Hours 8. Magnesium Sulfate 2 gram/Sterile Water 50 mL Premix Soln: 2 gram(s) IntraVenous Piggyback Every 6 Hours 9. Ondansetron Injectable: 4 mg IntraVenous Push Every 6 Hours 10. Sodium Chloride 0.9% Injectable Flush PRN: 10 mL IntraVenous Flush According to Flush Policy Currently Suspended Medications --- 1. Dexmedetomidine 400 microgram/ NaCL 0.9% 100 mL Premix Infusion: 0.2 mcg/kg/hr IntraVenous Recent Lab Results: Results: I have reviewed these laboratory results: Glucose_POCT Trending View [id number] 12:17:00 25-Apr-2018 08:26:00 [id number] H 179 H Coagulation Screen 25-Apr-2018 02:33:00 ResultValue Prothrombin Time, Plasma 11.7 International Normalized Ratio, Plasma 1.1 Activated Partial Thromboplastin Time 30 Complete Blood Count 25-Apr-2018 02:33:00 ResultValue White Blood Cell Count 16.6 H Nucleated Erythrocyte Count 0.0 Red Blood Cell Count 3.10 L HGB 9.5 L HCT 29.5 L MCV 95 MCHC 32.2 PLT 286 RDW-CV 14.8 H Renal Function Panel 25-Apr-2018 02:33:00 ResultValue Glucose, Serum 159 H NA 140 K 4.3 CL 108 H Bicarbonate, Serum 25 Anion Gap, Serum 11 BUN 18 CREAT 0.88 GFR-Non >60 GFR- >60 Calcium, Serum 7.3 L Phosphorus, Serum 3.0 ALB 2.2 L Calcium, Ionized Level 25-Apr-2018 02:33:00 ResultValue Calcium, Ionized Level 1.09 L Magnesium, Serum 25-Apr-2018 02:33:00 ResultValue Magnesium, Serum 2.38 Radiology Results: Results: Impression: 1. Low lung volumes and continued for hilar congestion without jonny pulmonary edema. 2. Bibasilar atelectasis and suggestion of trace bilateral pleural effusion 3. Medical appliances as noted above. Xray Chest 1 View [Apr 25 2018 8:34AM] Impression: 1. Enteric tube is making a loop in the gastric body with the side hole and tip projecting over the proximal gastric body near the GE junction. Xray Abdomen AP View [Apr 25 2018 8:33AM] Assessment and Plan: Assessment: 67yo M with Hx perforated appendicitis requiring appendectomy and ileocolic resection at OSH 07/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 On 04/14/18 he underwent ex lap with takedown of ileocolic anastomosis and fistula takedwon with redo of ileocolic anastomosis, and was also found to have small enterovesical fistula that was taken down and primarily repaired and primary ventral hernia repair with placement of subcutaneous MADISON drain. On 04/16/2018 (POD2) patient lost consciousness while on the commode and was bleeding from his abdominal wound. On exam, dark venous blood was evacuating from the inferior aspect of his abdominal incision. Initially he was unresponsive, however, he spontaneously regained consciousness and began following commands and responding to verbal cues. He had a pulse throughout the event, his SBP was in the 80s, and he was maintaining his saturations. Pressure was held on the abdominal incision, fluid bolus was started, and patient was transferred to the SICU. Patient was taken to the OR on 04/17/18 for ex-lap, evacuation of hematoma, omentectomy, abthera wound vac and was brought back to ICU intubated with open abdomen. Extubated on 04/19/18. Underwent second look laparotomy, resection of ischemic segment of jejunum, left in discontinuity, and abthera placed over open abdomen on 04/21/2018. On 04/22/18 was noticed to have bilious output in abthera vac and a new onset Afib with RVR. Patient was taken back to the OR on 04/22/18 for exploration resection of proximal jejunal limb with stapler and oversew of staple line, serosal patch placed with proximal jejunal staple line, Left in discontinuity, Abdominal washout, Abthera vac placement. Afebrile, VSS. Having bowel function. NGT 1300 cc over 24 hrs. UOP 1430. H/H stable. Cr wnl. Plan: - Appreciate ICU care - Keep NPO with NGT - Continue TPN - Daily labs - Continue Zosyn every 6 hours and fluconazole 400mg (Apr 29 end date) - DVT ppx SCDs and heparin Patient discussed with attending surgeon Dr. Colmenares. Marquez Bronson General Surgery, PGY-2 [place] [id number] Signature/Cosignature/Attesta tion: Attending AttestationI saw and evaluated the patient. I personally obtained the thibodeaux and critical portions of the history and physical exam or was physically present for thibodeaux and critical portions performed by the resident/fellow. I reviewed the resident/fellows documentation and discussed the patient with the resident/fellow. I agree with the resident/fellows medical decision making as documented in the residents note. I personally evaluated the patient (as noted in the above attestation) on 25-Apr-2018 Electronic Signatures: Marquez Bronson (Resident)) (Signed 25-Apr-2018 14:15) Authored: Service, Subjective Data, Objective Data, Assessment and Plan, Signature/Cosignature/Attesta tion Nolvia Colmenares) (Signed 27-Apr-2018 16:45) Authored: Signature/Cosignature/Attesta tion Co-Signer: Service, Subjective Data, Objective Data, Assessment and Plan, Signature/Cosignature/Attesta tion Last Updated: 27-Apr-2018 16:45 by Nolvia Colmenares) Normal [facility] GLUCOSE-POCTon 04-25-2018 Glucose [Mass/Vol] 119 mg/dL High 74 - 99 [facility] Comment on above: Performed By: #### G VAISHALI ####[id number] [place] [address] Glucose [Mass/Vol] 154 mg/dL High 74 - 99 [facility] Comment on above: Performed By: #### G VAISHALI ####[id number] [place] [address] Glucose [Mass/Vol] 130 mg/dL High 74 - 99 [facility] Comment on above: Performed By: #### G VAISHALI ####[id number] [place] [address] Glucose [Mass/Vol] 179 mg/dL High 74 - 99 [facility] Comment on above: Performed By: #### G VAISHALI ####[id number] [place] [address] Glucose [Mass/Vol] 138 mg/dL High 74 - 99 [facility] Comment on above: Performed By: #### G VAISHALI ####[id number] [place] [address] MAGNESIUMon 04-25-2018 Magnesium [Mass/Vol] 2.38 mg/dL Normal 1.60 - 2.40 [facility] Comment on above: Performed By: #### M G ####[id number] [place] [address] RENAL FUNCTION PANELon 04-25 Albumin [Mass/Vol] 2.2 g/dL Low 3.4 - 5.0 [facility] Comment on above: Performed By: #### R ENAL ####[id number] [place] [address] Anion gap [Moles/Vol] 11 mmol/L Normal 10 - 20 [facility] Comment on above: Performed By: #### R ENAL ####[id number] [place] [address] Calcium [Mass/Vol] 7.3 mg/dL Low 8.6 - 10.6 [facility] Comment on above: Performed By: #### R ENAL ####[id number] [place] [address] Chloride [Moles/Vol] 108 mmol/L High 98 - 107 [facility] Comment on above: Performed By: #### R ENAL ####[id number] [place] [address] Creatinine [Mass/Vol] 0.88 mg/dL Normal 0.50 - 1.30 [facility] Comment on above: Performed By: #### R ENAL ####[id number] [place] [address] GFR- AM. >60 Normal >60 [facility] Comment on above: Result Comment: CALC ULATIONS OF ESTIMATED GFR ARE PERFORMED USING THE MDRD STUDY EQUATION FOR THE IDMS-TRACEABLE CREATININE METHODS. CLIN CHEM 2007;53:766-72 Performed By: #### R ENAL ####[id number] [place] [address] GFR-NON AM. >60 Normal >60 [facility] Comment on above: Performed By: #### R ENAL ####[id number] [place] [address] Glucose [Mass/Vol] 159 mg/dL High 74 - 99 [facility] Comment on above: Performed By: #### R ENAL ####[id number] [place] [address] HCO3 (Bld) [Moles/Vol] 25 mmol/L Normal 21 - 32 [facility] Comment on above: Performed By: #### R ENAL ####[id number] [place] [address] Phosphate [Mass/Vol] 3.0 mg/dL Normal 2.5 - 4.9 [facility] Comment on above: Result Comment: The performance characteristics of phosphorus testing in heparinized plasma have been validated by the individual laboratory site where testing is performed. Testing on heparinized plasma is not approved by the FDA; however, such approval is not necessary. Performed By: #### R ENAL ####[id number] [place] [address] Potassium [Moles/Vol] 4.3 mmol/L Normal 3.5 - 5.3 [facility] Comment on above: Result Comment: MILD HEMOLYSIS DETECTED. The result may be falsely elevated due to hemolysis or other interferents. Clinical correlation is recommended. Repeat testing may be considered. Performed By: #### R ENAL ####[id number] [place] [address] Sodium [Moles/Vol] 140 mmol/L Normal 136 - 145 [facility] Comment on above: Performed By: #### R ENAL ####[id number] [place] [address] Urea nitrogen [Mass/Vol] 18 mg/dL Normal 6 - 23 [facility] Comment on above: Performed By: #### R ENAL ####[id number] [place] [address] ARTERIAL FULL PANELon 2018 Anion gap [Moles/Vol] 8 mmol/L Low 10 - 25 [facility] Comment on above: Performed By: #### A FPA3 ####[id number] [place] [address] BASE EXCESS-BLOOD 4.0 mmol/L High -2.0 - 3.0 [facility] Comment on above: Performed By: #### A FPA3 ####[id number] [place] [address] CALCIUM,IONIZED 1.13 mmol/L Normal 1.10 - 1.33 [facility] Comment on above: Performed By: #### A FPA3 ####[id number] [place] [address] Chloride [Moles/Vol] 107 mmol/L Normal 98 - 107 [facility] Comment on above: Performed By: #### A FPA3 ####[id number] [place] [address] Glucose [Mass/Vol] 157 mg/dL High 74 - 99 [facility] Comment on above: Performed By: #### A FPA3 ####[id number] [place] [address] Hematocrit (Bld) [Volume fraction] 29.0 % Low 41.0 - 52.0 [facility] Comment on above: Performed By: #### A FPA3 ####[id number] [place] [address] HGB,CALCULATED 9.9 g/dL Low 13.5 - 17.5 [facility] Comment on above: Performed By: #### A FPA3 ####[id number] [place] [address] Lactate [Moles/Vol] 1.4 mmol/L Normal 0.4 - 2.0 [facility] Comment on above: Performed By: #### A FPA3 ####[id number] [place] [address] Oxygen (Bld) [Partial pressure] 67 mm[Hg] Low 85 - 95 [facility] Comment on above: Performed By: #### A FPA3 ####[id number] [place] [address] PCO2 35 mmHg Low 38 - 42 [facility] Comment on above: Performed By: #### A FPA3 ####[id number] [place] [address] pH (Bld) 7.50 [pH] High 7.38 - 7.42 [facility] Comment on above: Performed By: #### A FPA3 ####[id number] [place] [address] Potassium [Moles/Vol] 3.2 mmol/L Low 3.5 - 5.3 [facility] Comment on above: Performed By: #### A FPA3 ####[id number] [place] [address] RBC (Bld) [#/Vol] 27.3 mmol/L High 22.0 - 26.0 [facility] Comment on above: Performed By: #### A FPA3 ####[id number] [place] [address] SO2 98 % Normal 94 - 100 [facility] Comment on above: Performed By: #### A FPA3 ####[id number] [place] [address] Sodium [Moles/Vol] 139 mmol/L Normal 136 - 145 [facility] Comment on above: Performed By: #### A FPA3 ####[id number] [place] [address] CALCIUM, IONIZEDon 9 CALCIUM,IONIZED 1.13 mmol/L Normal 1.10 - 1.33 [facility] Comment on above: Result Comment: The performance characteristics of ionized calcium tested in heparinized plasma or serum have been validated by the individual laboratory site where testing is performed. Testing on heparinized plasma or serum is not approved by the FDA; however, such approval is not necessary. Performed By: #### I ONC1 ####[id number] [place] [address] CALCIUM,IONIZED Canceled Normal [facility] Comment on above: Order Comment: TEST CALCIUM, IONIZED WAS CANCELLED, 04/24/2018 14:01 NO SPECIMEN RECEIVED INLAB. Result Comment: The performance characteristics of ionized calcium tested in heparinized plasma or serum have been validated by the individual laboratory site where testing is performed. Testing on heparinized plasma or serum is not approved by the FDA; however, such approval is not necessary. Performed By: #### I ONC1 ####[id number] [place] [address] CALCIUM,IONIZED 1.17 mmol/L Normal 1.10 - 1.33 [facility] Comment on above: Result Comment: The performance characteristics of ionized calcium tested in heparinized plasma or serum have been validated by the individual laboratory site where testing is performed. Testing on heparinized plasma or serum is not approved by the FDA; however, such approval is not necessary. Performed By: #### I ONC1 ####[id number] [place] [address] CBCon 04-24-2018 Erythrocyte distribution width (RBC) [Ratio] 14.8 % High 11.5 - 14.5 [facility] Comment on above: Performed By: #### C BC ####[id number] [place] [address] Hematocrit (Bld) [Volume fraction] 32.2 % Low 41.0 - 52.0 [facility] Comment on above: Performed By: #### C BC ####[id number] [place] [address] Hemoglobin (Bld) [Mass/Vol] 10.2 g/dL Low 13.5 - 17.5 [facility] Comment on above: Performed By: #### C BC ####[id number] [place] [address] MCHC (RBC) [Mass/Vol] 31.7 g/dL Low 32.0 - 36.0 [facility] Comment on above: Performed By: #### C BC ####[id number] [place] [address] MCV (RBC) [Entitic vol] 95 fL Normal 80 - 100 [facility] Comment on above: Performed By: #### C BC ####[id number] [place] [address] Nucleated RBC/100 WBC (Bld) [Ratio] 0.0 /100 WBC Normal 0.0-0.0 [facility] Comment on above: Performed By: #### C BC ####[id number] [place] [address] Platelets (Bld) [#/Vol] 320 10*3/uL Normal 150 - 450 [facility] Comment on above: Performed By: #### C BC ####[id number] [place] [address] RBC (Bld) [#/Vol] 3.39 x10E12/L Low 4.50 - 5.90 [facility] Comment on above: Performed By: #### C BC ####[id number] [place] [address] WBC (Bld) [#/Vol] 15.3 10*3/uL High 4.4 - 11.3 [facility] Comment on above: Performed By: #### C BC ####[id number] [place] [address] Erythrocyte distribution width (RBC) [Ratio] 14.6 % High 11.5 - 14.5 [facility] Comment on above: Performed By: #### C BC ####[id number] [place] [address] Hematocrit (Bld) [Volume fraction] 27.1 % Low 41.0 - 52.0 [facility] Comment on above: Performed By: #### C BC ####[id number] [place] [address] Hemoglobin (Bld) [Mass/Vol] 9.3 g/dL Low 13.5 - 17.5 [facility] Comment on above: Performed By: #### C BC ####[id number] [place] [address] MCHC (RBC) [Mass/Vol] 34.3 g/dL Normal 32.0 - 36.0 [facility] Comment on above: Performed By: #### C BC ####[id number] [place] [address] MCV (RBC) [Entitic vol] 89 fL Normal 80 - 100 [facility] Comment on above: Performed By: #### C BC ####[id number] [place] [address] Nucleated RBC/100 WBC (Bld) [Ratio] 0.1 /100 WBC Normal 0.0-0.0 [facility] Comment on above: Performed By: #### C BC ####[id number] [place] [address] Platelets (Bld) [#/Vol] 250 10*3/uL Normal 150 - 450 [facility] Comment on above: Performed By: #### C BC ####[id number] [place] [address] RBC (Bld) [#/Vol] 3.03 x10E12/L Low 4.50 - 5.90 [facility] Comment on above: Performed By: #### C BC ####[id number] [place] [address] WBC (Bld) [#/Vol] 15.1 10*3/uL High 4.4 - 11.3 [facility] Comment on above: Performed By: #### C BC ####[id number] [place] [address] Erythrocyte distribution width (RBC) [Ratio] 15.0 % High 11.5 - 14.5 [facility] Comment on above: Performed By: #### C BC ####[id number] [place] [address] Hematocrit (Bld) [Volume fraction] 23.8 % Low 41.0 - 52.0 [facility] Comment on above: Performed By: #### C BC ####[id number] [place] [address] Hemoglobin (Bld) [Mass/Vol] 7.7 g/dL Low 13.5 - 17.5 [facility] Comment on above: Performed By: #### C BC ####[id number] [place] [address] MCHC (RBC) [Mass/Vol] 32.4 g/dL Normal 32.0 - 36.0 [facility] Comment on above: Performed By: #### C BC ####[id number] [place] [address] MCV (RBC) [Entitic vol] 93 fL Normal 80 - 100 [facility] Comment on above: Performed By: #### C BC ####[id number] [place] [address] Nucleated RBC/100 WBC (Bld) [Ratio] 0.0 /100 WBC Normal 0.0-0.0 [facility] Comment on above: Performed By: #### C BC ####[id number] [place] [address] Platelets (Bld) [#/Vol] 200 10*3/uL Normal 150 - 450 [facility] Comment on above: Performed By: #### C BC ####[id number] [place] [address] RBC (Bld) [#/Vol] 2.55 x10E12/L Low 4.50 - 5.90 [facility] Comment on above: Performed By: #### C BC ####[id number] [place] [address] WBC (Bld) [#/Vol] 14.0 10*3/uL High 4.4 - 11.3 [facility] Comment on above: Performed By: #### C BC ####[id number] [place] [address] COAGULATION SCREENon 019 aPTT Coag (Bld) [Time] 30 s Normal 28 - 38 [facility] Comment on above: Result Comment: THE APTT IS NO LONGER USED FOR MONITORING UNFRACTIONATED HEPARIN THERAPY. FOR MONITORING HEPARIN THERAPY, USE THE HEPARIN ASSAY. Performed By: #### C OAGS ####[id number] [place] [address] INR Coag (PPP) [Relative time] 1.0 {INR} Normal 0.9 - 1.1 [facility] Comment on above: Performed By: #### C OAGS ####[id number] [place] [address] PT Coag (PPP) [Time] 11.5 s Normal 9.7 - 12.7 [facility] Comment on above: Performed By: #### C OAGS ####[id number] [place] [address] aPTT Coag (Bld) [Time] 31 s Normal 28 - 38 [facility] Comment on above: Result Comment: THE APTT IS NO LONGER USED FOR MONITORING UNFRACTIONATED HEPARIN THERAPY. FOR MONITORING HEPARIN THERAPY, USE THE HEPARIN ASSAY. Performed By: #### C OAGS ####[id number] [place] [address] INR Coag (PPP) [Relative time] 1.1 {INR} Normal 0.9 - 1.1 [facility] Comment on above: Performed By: #### C OAGS ####[id number] [place] [address] PT Coag (PPP) [Time] 12.2 s Normal 9.7 - 12.7 [facility] Comment on above: Performed By: #### C OAGS ####[id number] [place] [address] Clinical Event Note-Return f rom ORon 04-24-2018 Clinical Event Note-Return from OR Event: Topic: Return from OR Details: Return from OR s/p: exploratory laparotomy, small bowel resection and anastomosis, vicryl mesh closure OR course unremarkable. 2 drains placed: L is subcutaneous, R intra-abd. Extubated, off pressors. TPN and lipids continued throughout case Easy intubation. OR course: EBL: 10 UOP: 200 Crystalloid: 400 Colloid: 0 Products: none Intubation: easy Access: same as prior Plan: - NPO - IV pain medications -continue same ATB (Zosyn, Fluc) -Haldol/Precedex for agitation. -ABD binder at all times -try to connect drains to suction. -see SICU daily progress note for remainder of plan Nolvia Ayala CNP Electronic Signatures: Nolvia Ayala (EXPRESSIVE THERAPIST-CEILING INSTALLER) (Signed 24-Apr-2018 18:53) Authored: Event Last Updated: 24-Apr-2018 18:53 by Nolvia Ayala (EXPRESSIVE THERAPIST-CEILING INSTALLER) Normal [facility] Daily Progress Note - Critic al Care-SICUon 04-24-2018 Daily Progress Note - Critical Care-SICU Service: Critical Care Service: ServiceSICU Subjective Data: ID Statement: ADEN PATEL is a 67 year old Male who is Hospital Day # 12 and ICU Day #5 and POD #2 for exploratory laparotomy, resection of proximal jejunal limb with stapler and oversew of staple line. serosal patch placed with proximal jejunal staple line. Left in discontinuity. Abdominal washout. Abthera vac placement. No overnight events. He was given 1 dose of Labetalol this AM for HTN. He is currently sitting up in bed, awake and alert. States he was unable to sleep for more than 2 hours last night and has some abd pain with coughing but is otherwise feeling well. Objective Data: Objective Information T PRBPSpO2 [id number]/8495% Date/Time04/24 4: 6: 6: 6: 6:00 Range(36C - 37.1C ) (62 - 82 ) (15 - 23 ) (139 - 165 )/ (79 - 125 ) (88% - 98% ) As of 23-Apr-2018 08:00:00, patient is on 3 L/min of oxygen via room air. Highest temp of 37.1 C was recorded at 04/24 0:00 Pain reported at 04/24 4:00: 0 Direct Arterial Blood Pressure [id number](144 - 183)04/24 6:00 Diastolic (mm Hg)69(64 - 99)04/24 6:00 Mean (mm Hg)101(68 - 230)04/24 6:00 Pulse Pressure (mm Hg)103(69 - 108)04/24 6:00 ---- Intake and Output ----- Mn/Dy/Year [facility] Apr 24, 2018 6:00 [id number] Apr 23, 2018 10:00 [id number] Apr 23, 2018 2:00 [id number] The Intake and Output Totals for the last 24 hours are: IntakeOutputNet [id number] Drain and tube details (included in I&O totals) 1630 cc Indwelling Catheter - Urethral( 24-Apr-2018 06:00:00 ) Physical Exam: Physical Exam: Neurological: alert and oriented x3, intact senses, motor, response and reflexes, normal strength Cardiovascular: irregular rhythm (sinus rhythm + PACs on the monitor), no appreciated murmurs, 2+ equal pulses of the extremities Respiratory/Thorax: Patent airways, CTAB, normal breath sounds over anterior chest with good chest expansion, thorax symmetric Genitourinary: Mir catheter in place producing clear yellow urine Gastrointestinal: soft, non distended, midline vac in place holding suction with no surrounding drainage or significant erythema. minimally tender over lower abdomen, Skin: Warm and dry, no lesions, no rashes Musculoskeletal: moves all extremities, generalized weakness Constitutional: Well developed, awake/alert/oriented x3, no distress, alert and cooperative Eyes: EOMI, clear sclera ENMT: mucous membranes moist, no apparent injury, no lesions seen, nasal cannula in place, NG tube in place Head/Neck: NC/AT Extremities: thin lower extremities, no edema Psychological: Appropriate mood and behavior Allergies: Allergies: No Known Allergies: Recent Lab Results: Results: CBC: 04/24/2018 02:09 \ Hgb / \ 7.7 L / WBC Plt 14.0 H 200 / Hct \ / 23.8 L \ RBC: 2.55 L MCV: 93 RFP: 04/23/2018 17:28 NA+ Cl- BUN / 141 107 21 / --- Glucose 164 H K+ HCO3- Creat \ 3.6 27 0.84 \ Calcium : 7.2 LAnion Gap : 11 Albumin : 2.3 L Phos : 2.3 L Recent Arterial Blood Gas Results 04/24/2018 02:24 pO267 pH7.50 lDX256 SO298 Base Excess4.0 [id number] Assessment and Plan: Daily Risk Screen: Does patient have a central lineno Does patient have an indwelling urinary catheteryes Plan for indwelling urinary catheter removal todayno The patient continues to require indwelling urinary catheterization for critically ill patients who need accurate urinary output measurements Is the patient intubatedno Other: Diagnosis: Assessment: 67yo M with PMH of HTN, complicated left sided diverticulitis with perforation previously treated with abx, and perforated appendicitis requiring appendectomy and ileocolic resection at OSH 07/2017 c/b enterocutaneous fistula now s/p ex-lap with takedown of ileocolic anastomosis and fistula take down with redo of ileocolic anastomosis. A small enterovesical fistula was also taken down and primarily repaired as well as a primary ventral hernia repair with placement of subcutaneous MADISON drain on 04/14. Patient transferred to the SICU on 04/16 after a hypotensive episode and patient found to be unresponsive while on the commode. CT A/P with rectal contrast revealed hemoperitoneum and jejunal pneumatosis. Taken to OR 04/17 for ex-lap, evacuation of hematoma, omentectomy, and placement of abthera wound vac. 300mL of clot was evacuated from the omentum, oozing from the abdominal wall, jejunum with some patchy areas of ischemia, anastomosis viable and intact. 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 On 04/22 AM he went into afib with rvr HRs 130s. Currently back in NSR with PACs - nsr THIS AM with PACs - MAPs between 65-80mmHg - Continuous EKG and ABP monitoring - Goal MAP >65, SBP <170 - Volume resuscitate as clinically indicated - labetolol 20mg every 4 hours for systolic greater than 165 - Metoprolol 10mg every 4 hours - Hold home antihypertensive meds PULM: Current everyday smoker, 20+ pack years - Continue nasal cannula, IS, EZ pap - CXR as clinically indicated - IS q1h and OOB to chair when extubated : No history of renal disease. MONTY, peak Cr 4.70 thus far. Baseline sCr 0.79. MONTY resolving - d/c mIVF as Na has normalized - Continue mir catheter for strict I/Os. - Goal UOP 0.5ml/kg/hr - RFP as clinically indicated, trend Cr - Replete electrolytes per SICU protocol. K goal >4, Mg goal >2.2 given his arrhythmias GI: History of complicated left sided diverticulitis with perforation, and perforated appendicitis requiring appendectomy and ileocolic resection at OSH 07/2017 c/b enterocutaneous fistula now s/p ex-lap with takedown of ileocolic anastomosis and fistula take down with redo of ileocolic anastomosis, small enterovesical fistula was also taken down and primarily repaired and primary ventral hernia repair with placement of subcutaneous MADISON drain on 04/14. CT A/P 04/17 concern for hemoperitoneum and jejunal pneumotosis. Return to OR on 04/17 for Ex-lap, hematoma evacuation. 04/20 jejunal resection left in discontinuity with wound vac in place - went back to OR 04/22 for exploratory laparotomy, resection of proximal jejunal limb with stapler and oversew of staple line. serosal patch placed with proximal jejunal staple line. Abthera vac placement - NPO, nutrition rec's for TPN - Record MADISON drain output and characteristics - PPI prophylaxis - Daily abdominal x-ray - OR as an add on today for possible closure/ostomy HEME: Acute blood loss anemia; H/H stable. Hgb 7.7 from 10. No signs of bleeding and he remains HDS - CBC and coags as clinically indicated - Monitor drain output volume and characteristics - SCDs and SubQ Heparin for DVT prophylaxis. - Repeat CBC and 2 units pRBCs on hold for OR ENDO: No history of diabetes. - Goal BG 140-180 - Accuchecks q4h - SSI per SICU protocol ID: Afebrile, no current indication of infection. Surgical prophylaxis - recieved Ancef and Flagyl intra-op - Zosyn every 6 hours (started 04/20) - elevated white count, no fevers - blood cx 04/23: NGTD - Started fluconazole 400mg daily on 04/23 per surgical team. Proph: SCDs SubQ heparin PPI Lines: L PIV PICC line jonn mir Dispo: SICU purple team care for now Team phone: [phone] Seen and d/w Dr. Kulwant Wilkinson MD PGY2 Code Status: Code StatusFull Code Signature/Cosignature/Attesta tion: Critical Care PatientI have reviewed and evaluated the most recent data and results, personally examined the patient, and formulated the plan of care as presented above. This patient was critically ill and required continued critical care treatment. Teaching and any separately billable procedures are not included in the time calculation. Billing Provider Critical Care Time45 minute(s) Primary Critical Care Issue/Treatment (See Assessment and Plan for greater detail)-- This patient has undergone a major operation or significant procedure and must have intensive monitoring and management to diagnose or prevent life or limb threatening deterioration. Please see assessment and plan above for greater detail. Electronic Signatures: Trav Blum) (Signed 24-Apr-2018 14:51) Authored: Signature/Cosignature/Attesta tion Co-Signer: Service, Subjective Data, Objective Data, Assessment and Plan Ginger Wilkinson (Resident)) (Signed 24-Apr-2018 11:27) Authored: Service, Subjective Data, Objective Data, Assessment and Plan Last Updated: 24-Apr-2018 14:51 by Trav Blum) Normal [facility] Daily Progress Note-Colorect al Surgeryon 04-24-2018 Daily Progress Note-Colorectal Surgery Service: Colorectal Surgery Subjective Data: ADEN PATEL is a 67 year old Male who is Hospital Day # 12 and POD #2 for exploratory laparotomy, resection of proximal jejunal limb with stapler and oversew of staple line. serosal patch placed with proximal jejunal staple line. Left in discontinuity. Abdominal washout. Abthera vac placement. Nc No N/V. Pain controlled. NGT in place. Has been having episodes of confusion at night but is quickly reoriented. Overnight Events: Patient had an uneventful night. Objective Data: Objective Information: T PRBPSpO2 [id number]/8093% Date/Time04/24 8: 8: 8: 8: 8:00 Range(36C - 37.1C ) (62 - 80 ) (15 - 23 ) (139 - 165 )/ (79 - 125 ) (88% - 98% ) Highest temp of 37.1 C was recorded at 04/24 0:00 Pain reported at 04/24 4:00: 0 ---- Intake and Output ----- Mn/Dy/Year TimeIntakeOutputNet Apr 24, 2018 6:00 [id number] Apr 23, 2018 10:00 [id number] Apr 23, 2018 2:00 [id number] The Intake and Output Totals for the last 24 hours are: IntakeOutputNet [id number] Intake Output IV Fluids 2350 mL Urine 1630 mL IV Nutrition 1433 mL GI 1650 mL Medicated IV Drips 116.7 mL Drain 850 mL Physical Exam: Constitutional: Well developed, awake/alert/oriented x3, no distress, alert and cooperative Eyes: clear sclera Head/Neck: Left central line in place Respiratory/Thorax: Nonlabored breathing on room air Cardiovascular: NSR on monitor Gastrointestinal: Nondistended, soft, abthera in place, VAC with serous output Genitourinary: Mir with clear yellow urine Extremities: MCKEON x 4 Neurological: alert and oriented x3 Psychological: Appropriate mood and behavior Medication: Medications: Continuous Medications --- No continuous medications are active Scheduled Medications --- 1. Amino Acids 10% (Travasol) IV Piggy Back: 25 gram(s) IntraVenous Piggyback Every 24 Hours 2. Fat Emulsion 20% (SMOFLIPID) Infusion: 240 mL IntraVenous Piggyback Every 24 Hours 3. Fluconazole 400 mg IVPB/ Premixed NS 200 mL: 200 mL IntraVenous Piggyback Every 24 Hours 4. Heparin SubCutaneous: 5000 unit(s) SubCutaneous Every 12 Hours 5. Insulin Lispro Mild Corrective Scale: unit(s) SubCutaneous Every 4 Hours 6. Lidocaine 5% TransDermal: 1 patch TransDermal Every 24 Hours 7. Metoprolol Injectable: 10 mg IntraVenous Push Every 4 Hours 8. Metoprolol Injectable: 5 mg IntraVenous Push Once 9. Nicotine 21 mg/ 24 hour TransDermal: 1 patch TransDermal Every 24 Hours 10. Pantoprazole Injectable: 40 mg IntraVenous Push Every 12 Hours 11. Piperacillin - Tazobactam 3.375 gram/Iso-osmotic 50 mL Premix IVPB: 50 mL IntraVenous Piggyback Every 6 Hours 12. Saliva Substitute: 15 mL Oral 4 Times a Day 13. Sodium Chloride 0.9% Injectable Flush: 10 mL IntraVenous Flush Every 12 Hours 14. TPN Standard- Amino Acids 5% - Dextrose 20%: 1000 mL IntraVenous Via Cycle Rates PRN Medications --- 1. Calcium Gluconate IVPB: 1 gram(s) IntraVenous Piggyback Every 6 Hours 2. Calcium Gluconate IVPB: 2 gram(s) IntraVenous Piggyback Every 6 Hours 3. Dextrose 50% in Water Injectable: 25 gram(s) IntraVenous Push Every 15 Minutes 4. Glucagon Injectable: 1 mg IntraMuscular Every 15 Minutes 5. Heparin Flush 10 unit/ mL PF Injectable: 5 mL IntraVenous Flush Every 12 Hours 6. Heparin Flush 10 unit/ mL PF Injectable PRN: 5 mL IntraVenous Flush According to Flush Policy 7. Heparin Flush 10 unit/ mL PF Injectable PRN: 5 mL IntraVenous Flush According to Flush Policy 8. Heparin Flush 10 unit/ mL PF Injectable PRN: 5 mL IntraVenous Flush According to Flush Policy 9. HYDROmorphone Injectable: 0.2 mg IntraVenous Push Every 2 Hours 10. HYDROmorphone Injectable: 0.4 mg IntraVenous Push Every 2 Hours 11. Labetalol Injectable: 10 mg IntraVenous Push Every 6 Hours 12. Magnesium Sulfate 2 gram/Sterile Water 50 mL Premix Soln: 2 gram(s) IntraVenous Piggyback Every 6 Hours 13. Magnesium Sulfate 4 gram/Sterile Water 100 mL Premix Soln: 4 gram(s) IntraVenous Piggyback Every 6 Hours 14. Ondansetron Injectable: 4 mg IntraVenous Push Once 15. Potassium Chloride 20 mEq/Sterile Water 100 mL Premix IVPB: 20 mEq IntraVenous Piggyback Every 6 Hours 16. Potassium Chloride 40 mEq/Sterile Water 100 mL Premix IVPB: 40 mEq IntraVenous Piggyback Every 6 Hours 17. Sodium Chloride 0.9% Injectable Flush PRN: 10 mL IntraVenous Flush According to Flush Policy 18. Sodium Chloride 0.9% Injectable Flush PRN: 20 mL IntraVenous Flush According to Flush Policy 19. Sodium Chloride 0.9% Injectable Flush PRN: 10 mL IntraVenous Flush According to Flush Policy 20. Sodium Chloride 0.9% Injectable Flush PRN: 10 mL IntraVenous Flush According to Flush Policy Currently Suspended Medications --- 1. Amiodarone 360 mg/ D5W 200 mL Premix Infusion: 0.5 mg/min IntraVenous Recent Lab Results: Results: I have reviewed these laboratory results: Glucose_POCT Trending View [id number] 08:17:00 24-Apr-2018 04:14:00 24-Apr-2018 00:11:00 [id number] H 155 H 162 H Arterial Full Panel 24-Apr-2018 02:24:00 ResultValue pH, Arterial 7.50 H pCO2, Arterial 35 L pO2, Arterial 67 L Patient-Temperature 37.0 SO2, Arterial 98 HCT 29.0 L Sodium-Level 139 Potassium-Level 3.2 L Chloride-Level 107 Calcium, Ionized-Level 1.13 Glucose-Level 157 H Lactate-Level 1.4 Base Excess-Blood 4.0 H Bicarbonate, Calculated, Arterial 27.3 H HGB, Calculated 9.9 L Anion Gap-Level 8 L Coagulation Screen 24-Apr-2018 02:09:00 ResultValue Prothrombin Time, Plasma 12.2 International Normalized Ratio, Plasma 1.1 Activated Partial Thromboplastin Time 31 Complete Blood Count 24-Apr-2018 02:09:00 ResultValue White Blood Cell Count 14.0 H Nucleated Erythrocyte Count 0.0 Red Blood Cell Count 2.55 L HGB 7.7 L HCT 23.8 L MCV 93 MCHC 32.4 PLT 200 RDW-CV 15.0 H Renal Function Panel 24-Apr-2018 02:09:00 ResultValue Glucose, Serum 167 H NA 140 K 3.3 L CL 106 Bicarbonate, Serum 27 Anion Gap, Serum 10 BUN 19 CREAT 0.77 GFR-Non >60 GFR- >60 Calcium, Serum 7.3 L Phosphorus, Serum 2.0 L ALB 2.3 L Fibrinogen Assay 24-Apr-2018 02:09:00 ResultValue Fibrinogen 409 H Calcium, Ionized Level 24-Apr-2018 02:09:00 ResultValue Calcium, Ionized Level 1.17 Magnesium, Serum 24-Apr-2018 02:09:00 ResultValue Magnesium, Serum 1.87 Radiology Results: Results: Impression: Xray Abdomen AP View [Apr 24 2018 8:28AM] Assessment and Plan: Assessment: 67yo M with Hx perforated appendicitis requiring appendectomy and ileocolic resection at OSH 07/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 On 04/14/18 he underwent ex lap with takedown of ileocolic anastomosis and fistula takedwon with redo of ileocolic anastomosis, and was also found to have small enterovesical fistula that was taken down and primarily repaired and primary ventral hernia repair with placement of subcutaneous MADISON drain. On 04/16/2018 (POD2) patient lost consciousness while on the commode and was bleeding from his abdominal wound. On exam, dark venous blood was evacuating from the inferior aspect of his abdominal incision. Initially he was unresponsive, however, he spontaneously regained consciousness and began following commands and responding to verbal cues. He had a pulse throughout the event, his SBP was in the 80s, and he was maintaining his saturations. Pressure was held on the abdominal incision, fluid bolus was started, and patient was transferred to the SICU. Patient was taken to the OR on 04/17/18 for ex-lap, evacuation of hematoma, omentectomy, abthera wound vac and was brought back to ICU intubated with open abdomen. Extubated on 04/19/18. Underwent second look laparotomy, resection of ischemic segment of jejunum, left in discontinuity, and abthera placed over open abdomen on 04/21/2018. On 04/22/18 was noticed to have bilious output in abthera vac and a new onset Afib with RVR. Patient was taken back to the OR on 04/22/18 for exploration resection of proximal jejunal limb with stapler and oversew of staple line, serosal patch placed with proximal jejunal staple line, Left in discontinuity, Abdominal washout, Abthera vac placement. Hgb drop to 7 from 10 this am. Vac with serous output, abdomen soft, NGT with no bloody output. Blood placed on hold for OR and repeat cbc pending. Plan: - Appreciate ICU care - Strict bedrest - Strict NPO - NGT to remain in place and functioning at all times - Please obtain daily KUBs - PICC/TPN - Monitor VAC output - will plan for OR today for possible wound closure and bowel anastomosis possible ostomy - Please call with any issues or changes Patient discussed with attending surgeon Dr. Colmenares. Marquez Bronson General Surgery, PGY-2 [place] [facility] [id number] Signature/Cosignature/Attesta tion: Attending AttestationI saw and evaluated the patient. I personally obtained the thibodeaux and critical portions of the history and physical exam or was physically present for thibodeaux and critical portions performed by the resident/fellow. I reviewed the resident/fellows documentation and discussed the patient with the resident/fellow. I agree with the resident/fellows medical decision making as documented in the residents note. I personally evaluated the patient (as noted in the above attestation) on 24-Apr-2018 Electronic Signatures: Marquez Bronson (Resident)) (Signed 24-Apr-2018 09:33) Authored: Service, Subjective Data, Objective Data, Assessment and Plan, Signature/Cosignature/Attesta tion Nolvia Colmenares) (Signed 25-Apr-2018 13:11) Authored: Signature/Cosignature/Attesta tion Co-Signer: Service, Subjective Data, Objective Data, Assessment and Plan, Signature/Cosignature/Attesta tion Last Updated: 25-Apr-2018 13:11 by Nolvia Colmenares) Normal [facility] FIBRINOGENon 04-24-2018 FIBRINOGEN 482 mg/dL High 200 - 400 [facility] Comment on above: Performed By: #### F IB ####[id number] [place] [address] FIBRINOGEN 409 mg/dL High 200 - 400 [facility] Comment on above: Performed By: #### F IB ####[id number] [place] [address] GLUCOSE-POCTon 04-24-2018 Glucose [Mass/Vol] 171 mg/dL High 74 - 99 [facility] Comment on above: Performed By: #### G VAISHALI ####[id number] [place] [address] Glucose [Mass/Vol] 134 mg/dL High 74 - 99 [facility] Comment on above: Performed By: #### G VAISHALI ####[id number] [place] [address] Glucose [Mass/Vol] 163 mg/dL High 74 - 99 [facility] Comment on above: Performed By: #### G VAISHALI ####[id number] [place] [address] Glucose [Mass/Vol] 155 mg/dL High 74 - 99 [facility] Comment on above: Performed By: #### G VAISHALI ####[id number] [place] [address] Glucose [Mass/Vol] 162 mg/dL High 74 - 99 [facility] Comment on above: Performed By: #### G VAISHALI ####[id number] [place] [address] MAGNESIUMon 04-24-2018 Magnesium [Mass/Vol] 2.10 mg/dL Normal 1.60 - 2.40 [facility] Comment on above: Performed By: #### M G ####[id number] [place] [address] Magnesium [Mass/Vol] 1.87 mg/dL Normal 1.60 - 2.40 [facility] Comment on above: Performed By: #### M G ####[id number] [place] [address] OPERATIVE REPORTon 9 OPERATIVE REPORT [facility] [address] [place] [address] Patient Name: ADEN PATEL : 1950 Date of Service: 04/24/2018 Patient Location: [id number] Patient Type: I Surgeon: Nolvia Colmenares MD Report Type: Operative Reports PREOPERATIVE DIAGNOSIS: Open abdomen and small bowel in discontinuity, ischemic small bowel, status post intraabdominal bleed. POSTOPERATIVE DIAGNOSIS: Open abdomen and small bowel in discontinuity, ischemic small bowel, status post intraabdominal bleed. OPERATION/PROCEDURE: Exploratory laparotomy, small bowel resection with primary anastomosis, Vicryl mesh closure of the abdomen. SURGEON: Nolvia Colmenares MD. DIRECTOR GLOBAL SALES(S): 1. Dr. Blake. 2. Dr. Wilson. 3. Angelica Yousif, nurse practitioner. ANESTHESIA: General endotracheal. INDICATIONS: The patient is a 67-year-old male with a complicated postoperative course after undergoing laparotomy for takedown of an enterocutaneous fistula and primary repair of a ventral hernia performed on April 14, 2018. That procedure was complicated by an intraabdominal bleed that required reoperation on April 17, 2018. At that time, a moderate hemoperitoneum was evacuated and we encountered diffusely ischemic small bowel. The patient was managed with an open abdomen and was brought back to the operating room for a second-look laparotomy on April 20, 2018. At that time, there was a short segment of the mid jejunum with an area of full-thickness necrosis that had not perforated. This short segment was resected. The remaining small bowel, however, continued to look moderately ischemic and a decision was made to continue to manage the patient with an open abdomen and to plan for reexploration in several days. The patient is now brought to the operating room for that procedure. TECHNIQUE: The patient was brought to the operating room and was placed on the operating table in supine position. After induction of general endotracheal anesthesia, the skin of the abdomen was prepped and draped in usual sterile fashion. Surgical time-out was performed. The previously placed ABThera wound VAC device was removed and the abdomen was explored. There were inflammatory adhesions present between the small bowel loops and these were lysed using a finger fracture technique. Once we had sufficiently mobilized the mid small bowel loops, we the previously created serosal patch and defined the two ends of the bowel which were in discontinuity. The small bowel was moderately dilated, but there was no evidence of ischemia. Therefore, the staple lines of the small bowel were excised. There was good arterial bleeding from the cut edges of the small bowel segment and intestinal continuity was therefore restored by creating a hand-sewn end-to-end small bowel anastomosis. The posterior wall was constructed with interrupted 2-0 Vicryl vertical mattress stitches and then the anterior wall was completed with interrupted 2-0 Vicryl seromuscular stitches. A second reinforcing layer of interrupted 3-0 Tycron sutures was placed. At the conclusion of the anastomosis, it was felt to be both patent without defects. There was no other intraabdominal pathology identified. The abdomen was then irrigated with large amounts of warm saline solution and was aspirated dry. Inspection was made for hemostasis, and this found to be adequate. All sponge and instrument counts were confirmed as correct. We were not able to bring the fascia together in the midline. Therefore, the ventral hernia was repaired with a 12 x 12 cm piece of Vicryl mesh. Vicryl mesh was sutured to the edges of the fascia with a running 0 Vicryl suture. The subcutaneous space was then irrigated and a 10 mm Josh-Adler drain was placed adjacent to the small bowel anastomosis in the right gutter prior to completion of the Vicryl mesh closure. This drain was brought out through a stab incision in the right abdomen. A second 10 mm Josh-Adler drain was then placed above the level the Vicryl mesh and this was brought out through a stab incision in the left lower quadrant. The skin was then closed with series of interrupted #1 nylon vertical mattress sutures. Sterile dressings were applied. The patient tolerated the above procedures and was taken to surgical intensive care in stable condition. ESTIMATED BLOOD LOSS: 5 cc. SPECIMEN: Small bowel segment. DRAIN: 10 mm Josh-Adler drain to the right abdominal gutter and 10 mm Josh-Adler drain to the subcutaneous space. COMPLICATIONS: None. ATTESTATION: Dr. Colmenares was the operating surgeon, who performed the entire procedure as described above. Dr. Blake was the surgical services asst. Nolvia Colmenares MD EST TT: 04/28/2018 04:27 PM EST DICTATION NUMBER: [id number] [facility] JOB NUMBER: [id number] CC: Quentin Rangel, [id number] Edited by Nolvia Colmenares 05/03/2018 02:55:24 PM Electronically Signed by Dr. Nolvia Colmenares 05/03/2018 02:55:24 PM Normal [facility] RENAL FUNCTION PANELon 04-24 Albumin [Mass/Vol] 2.4 g/dL Low 3.4 - 5.0 [facility] Comment on above: Performed By: #### R ENAL ####[id number] [place] [address] Anion gap [Moles/Vol] 14 mmol/L Normal 10 - 20 [facility] Comment on above: Performed By: #### R ENAL ####[id number] [place] [address] Calcium [Mass/Vol] 7.5 mg/dL Low 8.6 - 10.6 [facility] Comment on above: Performed By: #### R ENAL ####[id number] [place] [address] Chloride [Moles/Vol] 106 mmol/L Normal 98 - 107 [facility] Comment on above: Performed By: #### R ENAL ####[id number] [place] [address] Creatinine [Mass/Vol] 0.81 mg/dL Normal 0.50 - 1.30 [facility] Comment on above: Performed By: #### R ENAL ####[id number] [place] [address] GFR- AM. >60 Normal >60 [facility] Comment on above: Result Comment: CALC ULATIONS OF ESTIMATED GFR ARE PERFORMED USING THE MDRD STUDY EQUATION FOR THE IDMS-TRACEABLE CREATININE METHODS. CLIN CHEM 2007;53:766-72 Performed By: #### R ENAL ####[id number] [place] [address] GFR-NON AM. >60 Normal >60 [facility] Comment on above: Performed By: #### R ENAL ####[id number] [place] [address] Glucose [Mass/Vol] 168 mg/dL High 74 - 99 [facility] Comment on above: Performed By: #### R ENAL ####[id number] [place] [address] HCO3 (Bld) [Moles/Vol] 24 mmol/L Normal 21 - 32 [facility] Comment on above: Performed By: #### R ENAL ####[id number] [place] [address] Phosphate [Mass/Vol] 2.9 mg/dL Normal 2.5 - 4.9 [facility] Comment on above: Result Comment: The performance characteristics of phosphorus testing in heparinized plasma have been validated by the individual laboratory site where testing is performed. Testing on heparinized plasma is not approved by the FDA; however, such approval is not necessary. Performed By: #### R ENAL ####[id number] [place] [address] Potassium [Moles/Vol] 3.9 mmol/L Normal 3.5 - 5.3 [facility] Comment on above: Performed By: #### R ENAL ####[id number] [place] [address] Sodium [Moles/Vol] 140 mmol/L Normal 136 - 145 [facility] Comment on above: Performed By: #### R ENAL ####[id number] [place] [address] Urea nitrogen [Mass/Vol] 17 mg/dL Normal 6 - 23 [facility] Comment on above: Performed By: #### R ENAL ####[id number] [place] [address] Albumin [Mass/Vol] 2.3 g/dL Low 3.4 - 5.0 [facility] Comment on above: Performed By: #### R ENAL ####[id number] [place] [address] Anion gap [Moles/Vol] 10 mmol/L Normal 10 - 20 [facility] Comment on above: Performed By: #### R ENAL ####[id number] [place] [address] Calcium [Mass/Vol] 7.3 mg/dL Low 8.6 - 10.6 [facility] Comment on above: Performed By: #### R ENAL ####[id number] [place] [address] Chloride [Moles/Vol] 106 mmol/L Normal 98 - 107 [facility] Comment on above: Performed By: #### R ENAL ####[id number] [place] [address] Creatinine [Mass/Vol] 0.77 mg/dL Normal 0.50 - 1.30 [facility] Comment on above: Performed By: #### R ENAL ####[id number] [place] [address] GFR- AM. >60 Normal >60 [facility] Comment on above: Result Comment: CALC ULATIONS OF ESTIMATED GFR ARE PERFORMED USING THE MDRD STUDY EQUATION FOR THE IDMS-TRACEABLE CREATININE METHODS. CLIN CHEM 2007;53:766-72 Performed By: #### R ENAL ####[id number] [place] [address] GFR-NON AM. >60 Normal >60 [facility] Comment on above: Performed By: #### R ENAL ####[id number] [place] [address] Glucose [Mass/Vol] 167 mg/dL High 74 - 99 [facility] Comment on above: Performed By: #### R ENAL ####[id number] [place] [address] HCO3 (Bld) [Moles/Vol] 27 mmol/L Normal 21 - 32 [facility] Comment on above: Performed By: #### R ENAL ####[id number] [place] [address] Phosphate [Mass/Vol] 2.0 mg/dL Low 2.5 - 4.9 [facility] Comment on above: Result Comment: The performance characteristics of phosphorus testing in heparinized plasma have been validated by the individual laboratory site where testing is performed. Testing on heparinized plasma is not approved by the FDA; however, such approval is not necessary. Performed By: #### R ENAL ####[id number] [place] [address] Potassium [Moles/Vol] 3.3 mmol/L Low 3.5 - 5.3 [facility] Comment on above: Performed By: #### R ENAL ####[id number] [place] [address] Sodium [Moles/Vol] 140 mmol/L Normal 136 - 145 [facility] Comment on above: Performed By: #### R ENAL ####[id number] [place] [address] Urea nitrogen [Mass/Vol] 19 mg/dL Normal 6 - 23 [facility] Comment on above: Performed By: #### R ENAL ####[id number] [place] [address] REQUEST-LEUKOREDUCED RED DANNY LSon 04-24-2018 REQUEST-LEUKOREDU MABEL RED CELLS ORDER RECD Normal [facility] Comment on above: Performed By: #### O MATTING PRESS TENDER ####[id number] [place] [address] TH ABDOMEN AP VIEWon 019 TH ABDOMEN AP VIEW Patient Name: ADEN PATEL STUDY: ABDOMEN AP VIEW; 04/24/2018 9:34 pm INDICATION: Signs/Symptoms: pacu. COMPARISON: 04/24/2018 ACCESSION NUMBER(S): [id number] ORDERING CLINICIAN: MATTHEW JOAQUIN FINDINGS: Enteric tube courses midline past the diaphragm deflecting off the gastric fundus with proximal side hole and distal tip overlying the gastric body. Evaluation of bowel gas pattern is limited secondary to exclusion on of the left in the abdomen and pelvis from the radiograph. Partially visualized is a left central venous catheter with tip projecting over the distal SVC. Left lung base appears clear. Osseous structures demonstrate no acute bony changes. IMPRESSION: 1. Enteric tube is making a loop in the gastric body with the side hole and tip projecting over the proximal gastric body near the GE junction. I personally reviewed the images/study and I agree with the findings as stated. This study was interpreted at [facility], [place], [place]. Electronically signed by: DAYNE HUBBARD MD Normal [facility] TH ABDOMEN AP VIEW Patient Name: ADEN PATEL STUDY: TH ABDOMEN AP VIEW; 04/24/2018 9:18 am INDICATION: Signs/Symptoms: post op, abdominal distention. COMPARISON: X-ray dated 04/22/2018 ACCESSION NUMBER(S): [id number] ORDERING CLINICIAN: GINGER ABDUL FINDINGS: Three views of the abdomen pelvis. Enteric tube is in place with the tip projecting over the expected location of the distal 2nd portion of the duodenum. A slightly prominent loop of small bowel is identified in the left side of the abdomen measuring 3.2 cm limited evaluation of pneumoperitoneum on supine imaging, however no gross evidence of free air is noted. Atelectasis in both lung bases with trace right basilar pleural effusion. Osseous structures demonstrate no acute bony changes. IMPRESSION: 1. A single loop of small bowel appears slightly prominent measuring 3.2 cm. Correlation for ileus. 2. Enteric tube is in place with the tip projecting over the distal 2nd portion of the duodenum. 3. Atelectasis in lung bases with trace right basilar pleural effusion. Electronically signed by: DAYNE HUBBARD MD [facility] TH CHEST 1 VIEWon 04-24-2018 TH CHEST 1 VIEW Patient Name: ADEN PATEL STUDY: TH CHEST 1 VIEW; 04/24/2018 9:34 pm INDICATION: Signs/Symptoms: post op. COMPARISON: Radiograph dated 04/22/2018 ACCESSION NUMBER(S): [id number] ORDERING CLINICIAN: MATTHEW JOAQUIN FINDINGS: Enteric tube is seen descending midline past the diaphragm with tip beyond the field of view of this examination. Left upper extremity PICC is in stable position overlying the distal SVC. Interval removal of left internal jugular central venous catheter. CARDIOMEDIASTINAL SILHOUETTE: Cardiomediastinal silhouette is enlarged, unchanged. LUNGS: There are low lung volumes with bronchovascular crowding. There is continued perihilar congestion without jonny pulmonary edema. Bibasilar atelectasis and suggestion of trace bilateral pleural effusion. ABDOMEN: No remarkable upper abdominal findings. BONES: No acute osseous changes. IMPRESSION: 1. Low lung volumes and continued for hilar congestion without jonny pulmonary edema. 2. Bibasilar atelectasis and suggestion of trace bilateral pleural effusion 3. Medical appliances as noted above. I personally reviewed the images/study and I agree with the findings as stated. This study was interpreted at [facility], [place], [place]. Electronically signed by: DAYNE HUBBARD MD Normal [facility] TYPE + SCREENon 04-24-2018 ABO TYPE A Normal [facility] Comment on above: Performed By: #### T +S ####[id number] [place] [address] RH TYPE Positive Normal [facility] Comment on above: Performed By: #### T +S ####[id number] [place] [address] [facility] Surgical Pathology Depar tmenton 04-24-2018 [facility] Surgical Pathology Department Name ADEN PATEL Pathologist: MONO DUMONT MD Date of Procedure: 04/24/2018 Date Received: 04/24/2018 Date Reported 04/27/2018 Submitting Physician: NOLVIA COLMENARES MD Location: IC Other External # FINAL DIAGNOSIS A. SMALL BOWEL, RESECTION: --SMALL BOWEL MUCOSA WITH PATCHY ULCERATION AND REGENERATIVE CHANGE. --ACUTE AND ORGANIZING SEROSITIS. Electronically Signed Out By MONO DUMONT MD/SXM By the signature on this report, the individual or group listed as making the Final Interpretation/Diagnosis certifies that they have reviewed this case. Clinical History: Open abdomen Specimens Submitted As: A: SMALL BOWEL Gross Description: A: Received in formalin labeled with the patient's name, hospital number, and small bowel, are multiple tubular segments of unoriented bowel aggregating to 9.5 x 7.5 x 3.5 cm. The serosal surface of the segments demonstrates a arellano-yellow, somewhat firm covering. The mucosal surface is arellano-brown and demonstrates its usual architecture without evidence of polyps or masses. The specimen is serially sectioned and the bowel wall measures up to 0.6 cm at greatest thickness. Air Traffic Control Manager sections are submitted in 4 cassettes. SAS /04/25/2018 Normal [facility] Comment on above: Performed By: #### U HCS ####[facility] Surgical Pathology [id number] [place] [address] ARTERIAL FULL PANELon 2018 Anion gap [Moles/Vol] 5 mmol/L Low 10 - 25 [facility] Comment on above: Performed By: #### A FPA3 ####[id number] [place] [address] BASE EXCESS-BLOOD 5.8 mmol/L High -2.0 - 3.0 [facility] Comment on above: Performed By: #### A FPA3 ####[id number] [place] [address] CALCIUM,IONIZED 1.08 mmol/L Low 1.10 - 1.33 [facility] Comment on above: Performed By: #### A FPA3 ####[id number] [place] [address] Chloride [Moles/Vol] 108 mmol/L High 98 - 107 [facility] Comment on above: Performed By: #### A FPA3 ####[id number] [place] [address] Glucose [Mass/Vol] 180 mg/dL High 74 - 99 [facility] Comment on above: Performed By: #### A FPA3 ####[id number] [place] [address] Hematocrit (Bld) [Volume fraction] 29.0 % Low 41.0 - 52.0 [facility] Comment on above: Performed By: #### A FPA3 ####[id number] [place] [address] HGB,CALCULATED 9.9 g/dL Low 13.5 - 17.5 [facility] Comment on above: Performed By: #### A FPA3 ####[id number] [place] [address] Lactate [Moles/Vol] 1.4 mmol/L Normal 0.4 - 2.0 [facility] Comment on above: Performed By: #### A FPA3 ####[id number] [place] [address] Oxygen (Bld) [Partial pressure] 79 mm[Hg] Low 85 - 95 [facility] Comment on above: Performed By: #### A FPA3 ####[id number] [place] [address] PCO2 40 mmHg Normal 38 - 42 [facility] Comment on above: Performed By: #### A FPA3 ####[id number] [place] [address] pH (Bld) 7.48 [pH] High 7.38 - 7.42 [facility] Comment on above: Performed By: #### A FPA3 ####[id number] [place] [address] Potassium [Moles/Vol] 3.1 mmol/L Low 3.5 - 5.3 [facility] Comment on above: Performed By: #### A FPA3 ####[id number] [place] [address] RBC (Bld) [#/Vol] 29.8 mmol/L High 22.0 - 26.0 [facility] Comment on above: Performed By: #### A FPA3 ####[id number] [place] [address] SO2 99 % Normal 94 - 100 [facility] Comment on above: Performed By: #### A FPA3 ####[id number] [place] [address] Sodium [Moles/Vol] 140 mmol/L Normal 136 - 145 [facility] Comment on above: Performed By: #### A FPA3 ####[id number] [place] [address] BLOOD CULTURE, BACTERIALon 0 04-23-2018 BLOOD CULTURE, BACTERIAL PATIENT: ADEN PATEL LOCATION: [place] [address] BILL#: [id number] : 54 AGE: SEX: M ORDERED BY: MELITA ALBARRAN SOURCE: Blood COLLECTED: 04/23/18 13:38 ANTIBIOTICS AT GUILLERMO.: RECEIVED : 04/23/18 16:55 SITE: CENTRAL LINE R E S U L T S BLOOD CULTURE, BACTERIAL FINAL 04/28/18 17:42 No Growth at 1 days No Growth at 2 days No Growth at 3 days No Growth at 4 days NO GROWTH - FINAL REPORT Normal [facility] Comment on above: Performed By: #### B LDC ####[id number] [place] [address] BLOOD CULTURE, BACTERIAL PATIENT: ADEN PATEL LOCATION: [place] [address] BILL#: [id number] : 54 AGE: SEX: M ORDERED BY: MELITA ALBARRAN SOURCE: Blood COLLECTED: 04/23/18 13:38 ANTIBIOTICS AT GUILLERMO.: RECEIVED : 04/23/18 16:57 SITE: PERIPHERAL R E S U L T S BLOOD CULTURE, BACTERIAL FINAL 04/28/18 17:42 No Growth at 1 days No Growth at 2 days No Growth at 3 days No Growth at 4 days NO GROWTH - FINAL REPORT Normal [facility] Comment on above: Performed By: #### B LDC ####[id number] [place] [address] CALCIUM, IONIZEDon 9 CALCIUM,IONIZED 1.10 mmol/L Normal 1.10 - 1.33 [facility] Comment on above: Result Comment: The performance characteristics of ionized calcium tested in heparinized plasma or serum have been validated by the individual laboratory site where testing is performed. Testing on heparinized plasma or serum is not approved by the FDA; however, such approval is not necessary. Performed By: #### I ONC1 ####[id number] [place] [address] CBCon 04-23-2018 Erythrocyte distribution width (RBC) [Ratio] 14.8 % High 11.5 - 14.5 [facility] Comment on above: Performed By: #### C BC ####[id number] [place] [address] Hematocrit (Bld) [Volume fraction] 30.5 % Low 41.0 - 52.0 [facility] Comment on above: Performed By: #### C BC ####[id number] [place] [address] Hemoglobin (Bld) [Mass/Vol] 10.2 g/dL Low 13.5 - 17.5 [facility] Comment on above: Performed By: #### C BC ####[id number] [place] [address] MCHC (RBC) [Mass/Vol] 33.4 g/dL Normal 32.0 - 36.0 [facility] Comment on above: Performed By: #### C BC ####[id number] [place] [address] MCV (RBC) [Entitic vol] 90 fL Normal 80 - 100 [facility] Comment on above: Performed By: #### C BC ####[id number] [place] [address] Nucleated RBC/100 WBC (Bld) [Ratio] 0.0 /100 WBC Normal 0.0-0.0 [facility] Comment on above: Performed By: #### C BC ####[id number] [place] [address] Platelets (Bld) [#/Vol] 236 10*3/uL Normal 150 - 450 [facility] Comment on above: Performed By: #### C BC ####[id number] [place] [address] RBC (Bld) [#/Vol] 3.39 x10E12/L Low 4.50 - 5.90 [facility] Comment on above: Performed By: #### C BC ####[id number] [place] [address] WBC (Bld) [#/Vol] 16.8 10*3/uL High 4.4 - 11.3 [facility] Comment on above: Performed By: #### C BC ####[id number] [place] [address] COAGULATION SCREENon 019 aPTT Coag (Bld) [Time] 32 s Normal 28 - 38 [facility] Comment on above: Result Comment: THE APTT IS NO LONGER USED FOR MONITORING UNFRACTIONATED HEPARIN THERAPY. FOR MONITORING HEPARIN THERAPY, USE THE HEPARIN ASSAY. Performed By: #### C OAGS ####[id number] [place] [address] INR Coag (PPP) [Relative time] 1.1 {INR} Normal 0.9 - 1.1 [facility] Comment on above: Performed By: #### C OAGS ####[id number] [place] [address] PT Coag (PPP) [Time] 12.6 s Normal 9.7 - 12.7 [facility] Comment on above: Performed By: #### C OAGS ####[id number] [place] [address] Daily Progress Note - Critic al Care-S[facility] Service: Critical Care Service: [facility] Subjective Data: ID Statement: ADEN PATEL is a 67 year old Male who is Hospital Day # 11 and ICU Day #4 and POD #1 for exploratory laparotomy, resection of proximal jejunal limb with stapler and oversew of staple line. serosal patch placed with proximal jejunal staple line. Left in discontinuity. Abdominal washout. Abthera vac placement. no events overnight. Objective Data: Objective Information T PRBPSpO2 [id number]% Date/Time04/23 8: 11: 11: 11:00 Range(36.6C - 36.9C ) (65 - 124 ) (14 - 21 ) (90% - 98% ) As of 23-Apr-2018 08:00:00, patient is on 3 L/min of oxygen via nasal cannula. Highest temp of 36.9 C was recorded at 04/22 16:00 Pain reported at 04/22 16:45: 2 Pain reported at 04/23 10:00: 7 ---- Intake and Output ----- Mn/Dy/Year TimeIntakeOutputNet Apr 23, 2018 6:00 [id number] Apr 22, 2018 10:00 [id number] Apr 22, 2018 2:00 [id number] The Intake and Output Totals for the last 24 hours are: IntakeOutputNet [id number] Physical Exam: Physical Exam: Neurological: alert and oriented x3, intact senses, motor, response and reflexes, normal strength Cardiovascular: Regular, rate and rhythm, no murmurs, 2+ equal pulses of the extremities, normal S 1and S 2 Respiratory/Thorax: Patent airways, CTAB, normal breath sounds with good chest expansion, thorax symmetric Genitourinary: Mir catheter in place producing clear yellow urine Gastrointestinal: soft, midline vac in place holding suction, appropriately tender Skin: Warm and dry, no lesions, no rashes Musculoskeletal: moves all extremities generalized weakness Constitutional: Well developed, awake/alert/oriented x3, no distress, alert and cooperative Eyes: EOMI, clear sclera ENMT: mucous membranes moist, no apparent injury, no lesions seen, nasal cannula in place Head/Neck: NC/AT Extremities: trace lower extremity edema, no cyanosis Psychological: Appropriate mood and behavior Allergies: Allergies: No Known Allergies: Medications: Medications: ALTERNATIVE MEDICINES: 1. Melatonin: 3 mg Oral At Bedtime PRN ANTI-INFECTIVES: 1. Fluconazole 400 mg IVPB/ Premixed NS 200 mL: 200 mL IntraVenous Piggyback Every 24 Hours 2. Piperacillin - Tazobactam 3.375 gram/Iso-osmotic 50 mL Premix IVPB: 50 mL IntraVenous Piggyback Every 6 Hours CARDIOVASCULAR AGENTS: 1. Amiodarone 360 mg/ D5W 200 mL Premix Infusion: 0.5 mg/min IntraVenous 2. Metoprolol Injectable: 10 mg IntraVenous Push Every 4 Hours 3. Metoprolol Injectable: 5 mg IntraVenous Push Once 4. hydrALAZINE (APRESOLINE) Injectable: 20 mg IntraVenous Push Every 4 Hours PRN CENTRAL NERVOUS SYSTEM AGENTS: 1. HYDROmorphone Injectable: 0.2 mg IntraVenous Push Every 2 Hours PRN 2. HYDROmorphone Injectable: 0.4 mg IntraVenous Push Every 2 Hours PRN 3. Ondansetron Injectable: 4 mg IntraVenous Push Once PRN COAGULATION MODIFIERS: 1. Heparin Flush 10 unit/ mL PF Injectable: 5 mL IntraVenous Flush Every 12 Hours PRN 2. Heparin Flush 10 unit/ mL PF Injectable PRN: 5 mL IntraVenous Flush According to Flush Policy PRN 3. Heparin Flush 10 unit/ mL PF Injectable PRN: 5 mL IntraVenous Flush According to Flush Policy PRN 4. Heparin Flush 10 unit/ mL PF Injectable PRN: 5 mL IntraVenous Flush According to Flush Policy PRN 5. Heparin SubCutaneous: 5000 unit(s) SubCutaneous Every 12 Hours GASTROINTESTINAL AGENTS: 1. Pantoprazole Injectable: 40 mg IntraVenous Push Every 12 Hours METABOLIC AGENTS: 1. Insulin Lispro Mild Corrective Scale: unit(s) SubCutaneous Every 4 Hours 2. Dextrose 50% in Water Injectable: 25 gram(s) IntraVenous Push Every 15 Minutes PRN 3. Glucagon Injectable: 1 mg IntraMuscular Every 15 Minutes PRN MISCELLANEOUS AGENTS: 1. Nicotine 21 mg/ 24 hour TransDermal: 1 patch TransDermal Every 24 Hours NUTRITIONAL PRODUCTS: 1. Amino Acids 10% (Travasol) IV Piggy Back: 25 gram(s) IntraVenous Piggyback Every 24 Hours 2. Fat Emulsion 20% (SMOFLIPID) Infusion: 240 mL IntraVenous Piggyback Every 24 Hours 3. TPN Standard- Amino Acids 5% - Dextrose 20%: 1000 mL IntraVenous Via Cycle Rates 4. Calcium Gluconate IVPB: 1 gram(s) IntraVenous Piggyback Every 6 Hours PRN 5. Calcium Gluconate IVPB: 2 gram(s) IntraVenous Piggyback Every 6 Hours PRN 6. Magnesium Sulfate 2 gram/Sterile Water 50 mL Premix Soln: 2 gram(s) IntraVenous Piggyback Every 6 Hours PRN 7. Magnesium Sulfate 4 gram/Sterile Water 100 mL Premix Soln: 4 gram(s) IntraVenous Piggyback Every 6 Hours PRN 8. Potassium Chloride 20 mEq/Sterile Water 100 mL Premix IVPB: 20 mEq IntraVenous Piggyback Every 6 Hours PRN 9. Potassium Chloride 40 mEq/Sterile Water 100 mL Premix IVPB: 40 mEq IntraVenous Piggyback Every 6 Hours PRN 10. Sodium Chloride 0.9% Injectable Flush: 10 mL IntraVenous Flush Every 12 Hours 11. Sodium Chloride 0.9% Injectable Flush PRN: 10 mL IntraVenous Flush According to Flush Policy PRN 12. Sodium Chloride 0.9% Injectable Flush PRN: 20 mL IntraVenous Flush According to Flush Policy PRN 13. Sodium Chloride 0.9% Injectable Flush PRN: 10 mL IntraVenous Flush According to Flush Policy PRN 14. Sodium Chloride 0.9% Injectable Flush PRN: 10 mL IntraVenous Flush According to Flush Policy PRN TOPICAL AGENTS: 1. Lidocaine 5% TransDermal: 1 patch TransDermal Every 24 Hours 2. Saliva Substitute: 15 mL Oral 4 Times a Day Recent Lab Results: Results: CBC: 04/23/2018 02:14 \ Hgb / \ 10.2 L / WBC Plt 16.8 H 236 / Hct \ / 30.5 L \ RBC: 3.39 L MCV: 90 RFP: 04/23/2018 02:14 NA+ Cl- BUN / 143 107 23 / --- Glucose 173 H K+ HCO3- Creat \ 3.3 L 29 0.93 \ Calcium : 7.4 LAnion Gap : 10 Albumin : 2.3 L Phos : 2.6 Coagulation: 04/23/2018 02:14 PT / 12.6 / -------< INR < 1.1 PTT\ 32 \ Fibrinogen: 434 H Recent Arterial Blood Gas Results 04/23/2018 02:19 pO279 pH7.48 [id number] SO299 Base Excess5.8 [id number] Assessment and Plan: Daily Risk Screen: Does patient have a central lineyes Central Line Typeimplanted access ports Plan for implanted access port removal todayyes Does patient have an indwelling urinary catheteryes Plan for indwelling urinary catheter removal todayno The patient continues to require indwelling urinary catheterization for critically ill patients who need accurate urinary output measurements Is the patient intubatedno Other: Diagnosis: Assessment: 67yo M with PMH of HTN, complicated left sided diverticulitis with perforation previously treated with abx, and perforated appendicitis requiring appendectomy and ileocolic resection at OSH 07/2017 c/b enterocutaneous fistula now s/p ex-lap with takedown of ileocolic anastomosis and fistula take down with redo of ileocolic anastomosis. A small enterovesical fistula was also taken down and primarily repaired as well as a primary ventral hernia repair with placement of subcutaneous MADISON drain on 04/14. Patient transferred to the SICU on 04/16 after a hypotensive episode and patient found to be unresponsive while on the commode. CT A/P with rectal contrast revealed hemoperitoneum and jejunal pneumatosis. Taken to OR 04/17 for ex-lap, evacuation of hematoma, omentectomy, and placement of abthera wound vac. 300mL of clot was evacuated from the omentum, oozing from the abdominal wall, jejunum with some patchy areas of ischemia, anastomosis viable and intact. 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 On 04/22 AM he went into afib with rvr HRs 130s. - nsr THIS AM - MAPs between 65-80mmHg - Continuous EKG and ABP monitoring - Goal MAP >65, SBP <170 - Volume resuscitate as clinically indicated - labetolol 20mg every 4 hours for systolic greater than 165 - Metoprolol 10mg every 4 hours - Hold home antihypertensive meds PULM: Current everyday smoker, 20+ pack years - Continue nasal cannula, IS, EZ pap - CXR as clinically indicated - IS q1h and OOB to chair when extubated : No history of renal disease. MONTY, peak Cr 4.70 thus far. Baseline sCr 0.79. MONTY resolving - MIVF of 75 cc/hr plasmalyte - Continue mir catheter for strict I/Os. 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 CT A/P 04/17 concern for hemoperitoneum and jejunal pneumotosis. Return to OR on 04/17 for Ex-lap, hematoma evacuation. 04/20 jejunal resection left in discontinuity with wound vac in place - went back to OR 04/22 for exploratory laparotomy, resection of proximal jejunal limb with stapler and oversew of staple line. serosal patch placed with proximal jejunal staple line. Abthera vac placement - NPO, nutrition rec's for TPN - Record MADISON drain output and characteristics - PPI prophylaxis - Daily abdominal x-ray HEME: Acute blood loss anemia; H/H stable - CBC and coags as clinically indicated - Monitor drain output volume and characteristics - SCDs and SubQ Heparin for DVT prophylaxis. ENDO: No history of diabetes. - Goal BG 140-180 - Accuchecks q4h - SSI per SICU protocol ID: Afebrile, no current indication of infection. Surgical prophylaxis - recieved Ancef and Flagyl intra-op - Zosyn every 6 hours - elevated white count, no fevers, will lamb culture today, follow up cultures - Started fluconazole today per surgical team. Proph: SCDs SubQ heparin PPI Lines: L PIV PICC line jonn Prophylaxis: PPI SCDs Dispo: SICU purple team care for now Team phone: [phone] Code Status: Code StatusFull Code Signature/Cosignature/Attesta tion: Critical Care PatientI have reviewed and evaluated the most recent data and results, personally examined the patient, and formulated the plan of care as presented above. This patient was critically ill and required continued critical care treatment. Teaching and any separately billable procedures are not included in the time calculation. Billing Provider Critical Care Time45 minute(s) Primary Critical Care Issue/Treatment (See Assessment and Plan for greater detail)-- This patient has undergone a major operation or significant procedure and must have intensive monitoring and management to diagnose or prevent life or limb threatening deterioration. Please see assessment and plan above for greater detail. Electronic Signatures: Trav Blum) (Signed 24-Apr-2018 14:50) Authored: Signature/Cosignature/Attesta tion Co-Signer: Service, Subjective Data, Objective Data, Assessment and Plan Matthew Joaquin (Resident)) (Signed 23-Apr-2018 12:19) Authored: Service, Subjective Data, Objective Data, Assessment and Plan Last Updated: 24-Apr-2018 14:50 by Trav Blum) [facility] Daily Progress Note-Colorect al Surgeryon 04-23-2018 Daily Progress Note-Colorectal Surgery Service: Colorectal Surgery Subjective Data: ADEN PATEL is a 67 year old Male who is Hospital Day # 11 and POD #1 for exploratory laparotomy, resection of proximal jejunal limb with stapler and oversew of staple line. serosal patch placed with proximal jejunal staple line. Left in discontinuity. Abdominal washout. Abthera vac placement. Patient was seen and examined bedside. Tolerated the proceedure well. No N/V. Pain controlled. Overnight Events: Patient had an uneventful night. Objective Data: Objective Information: T PRBPSpO2 [id number]/5697% Date/Time04/23 0: 2: 2: 9: 2:00 Range(36.6C - 37C ) (92 - 145 ) (14 - 22 ) (81 - 108 )/ (56 - 82 ) (90% - 98% ) As of 23-Apr-2018 00:00:00, patient is on 4 L/min of oxygen via nasal cannula with humidification. Highest temp of 37 C was recorded at 04/22 8:00 Pain reported at 04/22 16:45: 2 Pain reported at 04/22 6:00: 10 Pain reported at 04/22 19:00: 7 T PRBPSpO2 [id number]/5697% Date/Time04/23 0: 2: 2: 9: 2:00 Range(36.6C - 37C ) (92 - 145 ) (14 - 22 ) (81 - 108 )/ (56 - 82 ) (90% - 98% ) As of 23-Apr-2018 00:00:00, patient is on 4 L/min of oxygen via nasal cannula with humidification. Highest temp of 37 C was recorded at 04/22 8:00 Physical Exam: Constitutional: Well developed, awake/alert/oriented x3, no distress, alert and cooperative Eyes: clear sclera Head/Neck: Left central line in place Respiratory/Thorax: Nonlabored breathing on NC Cardiovascular: Tachycardia Gastrointestinal: Nondistended, soft, abthera in place, VAC with serous output Genitourinary: Mir with clear yellow urine Extremities: MCKEON x 4 Neurological: alert and oriented x3 Psychological: Appropriate mood and behavior Medication: Medications: Continuous Medications --- 1. Amiodarone 360 mg/ D5W 200 mL Premix Infusion: 0.5 mg/min IntraVenous 2. Dextrose 5% in Water Infusion: 1000 mL IntraVenous Scheduled Medications --- 1. Amino Acids 10% (Travasol) IV Piggy Back: 25 gram(s) IntraVenous Piggyback Every 24 Hours 2. Fat Emulsion 20% (SMOFLIPID) Infusion: 240 mL IntraVenous Piggyback Every 24 Hours 3. Heparin SubCutaneous: 5000 unit(s) SubCutaneous Every 12 Hours 4. Metoprolol Injectable: 5 mg IntraVenous Push Once 5. Metoprolol Injectable: 10 mg IntraVenous Push Every 4 Hours 6. Nicotine 21 mg/ 24 hour TransDermal: 1 patch TransDermal Every 24 Hours 7. Pantoprazole Injectable: 40 mg IntraVenous Push Every 12 Hours 8. Piperacillin - Tazobactam 3.375 gram/Iso-osmotic 50 mL Premix IVPB: 50 mL IntraVenous Piggyback Every 6 Hours 9. Saliva Substitute: 15 mL Oral 4 Times a Day 10. Sodium Chloride 0.9% Injectable Flush: 10 mL IntraVenous Flush Every 12 Hours 11. TPN Standard- Amino Acids 5% - Dextrose 20%: 1000 mL IntraVenous Via Cycle Rates PRN Medications --- 1. Calcium Gluconate IVPB: 1 gram(s) IntraVenous Piggyback Every 6 Hours 2. Calcium Gluconate IVPB: 2 gram(s) IntraVenous Piggyback Every 6 Hours 3. Heparin Flush 10 unit/ mL PF Injectable: 5 mL IntraVenous Flush Every 12 Hours 4. Heparin Flush 10 unit/ mL PF Injectable PRN: 5 mL IntraVenous Flush According to Flush Policy 5. Heparin Flush 10 unit/ mL PF Injectable PRN: 5 mL IntraVenous Flush According to Flush Policy 6. Heparin Flush 10 unit/ mL PF Injectable PRN: 5 mL IntraVenous Flush According to Flush Policy 7. hydrALAZINE (APRESOLINE) Injectable: 20 mg IntraVenous Push Every 4 Hours 8. HYDROmorphone Injectable: 0.2 mg IntraVenous Push Every 2 Hours 9. HYDROmorphone Injectable: 0.4 mg IntraVenous Push Every 2 Hours 10. Magnesium Sulfate 2 gram/Sterile Water 50 mL Premix Soln: 2 gram(s) IntraVenous Piggyback Every 6 Hours 11. Magnesium Sulfate 4 gram/Sterile Water 100 mL Premix Soln: 4 gram(s) IntraVenous Piggyback Every 6 Hours 12. Ondansetron Injectable: 4 mg IntraVenous Push Once 13. Potassium Chloride 20 mEq/Sterile Water 100 mL Premix IVPB: 20 mEq IntraVenous Piggyback Every 6 Hours 14. Potassium Chloride 40 mEq/Sterile Water 100 mL Premix IVPB: 40 mEq IntraVenous Piggyback Every 6 Hours 15. Sodium Chloride 0.9% Injectable Flush PRN: 10 mL IntraVenous Flush According to Flush Policy 16. Sodium Chloride 0.9% Injectable Flush PRN: 20 mL IntraVenous Flush According to Flush Policy 17. Sodium Chloride 0.9% Injectable Flush PRN: 10 mL IntraVenous Flush According to Flush Policy 18. 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 On 04/14/18 he underwent ex lap with takedown of ileocolic anastomosis and fistula takedwon with redo of ileocolic anastomosis, and was also found to have small enterovesical fistula that was taken down and primarily repaired and primary ventral hernia repair with placement of subcutaneous MADISON drain. On 04/16/2018 (POD2) patient lost consciousness while on the commode and was bleeding from his abdominal wound. On exam, dark venous blood was evacuating from the inferior aspect of his abdominal incision. Initially he was unresponsive, however, he spontaneously regained consciousness and began following commands and responding to verbal cues. He had a pulse throughout the event, his SBP was in the 80s, and he was maintaining his saturations. Pressure was held on the abdominal incision, fluid bolus was started, and patient was transferred to the SICU. Patient was taken to the OR on 04/17/18 for ex-lap, evacuation of hematoma, omentectomy, abthera wound vac and was brought back to ICU intubated with open abdomen. Extubated on 04/19/18. Underwent second look laparotomy, resection of ischemic segment of jejunum, left in discontinuity, and abthera placed over open abdomen on 04/21/2018. On 04/22/18 was noticed to have bilious output in abthera vac and a new onset Afib with RVR. Patient was taken back to the OR for the or exploratory laparotomy, resection of proximal jejunal limb with stapler and oversew of staple line, serosal patch placed with proximal jejunal staple line, Left in discontinuity, Abdominal washout, Abthera vac placement. Plan: - Appreciate ICU care - Strict bedrest - Strict NPO - NGT to remain in place and functioning at all times - Please obtain daily KUBs - PICC/TPN - Monitor VAC output - will plan for OR Tuesday for possible wound closure and bowel anastomosis possible ostomy - Please call with any issues or changes Patient discussed with attending surgeon Dr. Jacome. López Blake MD [place] [id number] SCIP Measures: Urinary Catheter Removed Post-Op Day 2: no Reason Patient Needs Mir: Strict I&0 Patient on Beta Jeannette Prior to Admission: yes Restarted on Beta Jeannette by Post-Op Day 2: yes Prophylactic antibiotics scheduled to be discontinued with 24 hr of anesthesia end time (48 hr for cardiac surgery): N/A, patient not on prophylactic antibiotics Electronic Signatures: Pantera Wilcox (Resident)) (Signed 23-Apr-2018 02:41) Authored: Service, Subjective Data, Objective Data, Assessment and Plan, SCIP Measures, Signature/Cosignature/Attesta López baker Ma (Fellow)) (Signed 23-Apr-2018 09:19) Authored: Objective Data, Assessment and Plan Jannette Hutchison) (Signed 24-Apr-2018 12:09) Authored: Signature/Cosignature/Attesta samuel Co-Signer: Objective Data, Assessment and Plan Last Updated: 24-Apr-2018 12:09 by Jannette Hutchison) Normal [facility] FIBRINOGENon 04-23-2018 FIBRINOGEN 434 mg/dL High 200 - 400 [facility] Comment on above: Performed By: #### F IB ####[id number] [place] [address] GLUCOSE-POCTon 04-23-2018 Glucose [Mass/Vol] 153 mg/dL High 74 - 99 [facility] Comment on above: Performed By: #### G VAISHALI ####[id number] [place] [address] Glucose [Mass/Vol] 162 mg/dL High 74 - 99 [facility] Comment on above: Performed By: #### G VAISHALI ####[id number] [place] [address] Glucose [Mass/Vol] 162 mg/dL High 74 - 99 [facility] Comment on above: Performed By: #### G VAISHALI ####[id number] [place] [address] Glucose [Mass/Vol] 178 mg/dL High 74 - 99 [facility] Comment on above: Performed By: #### G VAISHALI ####[id number] [place] [address] Glucose [Mass/Vol] 164 mg/dL High 74 - 99 [facility] Comment on above: Performed By: #### G VAISHALI ####[id number] [place] [address] MAGNESIUMon 04-23-2018 Magnesium [Mass/Vol] 2.06 mg/dL Normal 1.60 - 2.40 [facility] Comment on above: Performed By: #### M G ####[id number] [place] [address] Magnesium [Mass/Vol] 1.98 mg/dL Normal 1.60 - 2.40 [facility] Comment on above: Performed By: #### M G ####[id number] [place] [address] Magnesium [Mass/Vol] 1.82 mg/dL Normal 1.60 - 2.40 [facility] Comment on above: Performed By: #### M G ####[id number] [place] [address] RENAL FUNCTION PANELon 04-23 Albumin [Mass/Vol] 2.3 g/dL Low 3.4 - 5.0 [facility] Comment on above: Performed By: #### R ENAL ####[id number] [place] [address] Anion gap [Moles/Vol] 11 mmol/L Normal 10 - 20 [facility] Comment on above: Performed By: #### R ENAL ####[id number] [place] [address] Calcium [Mass/Vol] 7.2 mg/dL Low 8.6 - 10.6 [facility] Comment on above: Performed By: #### R ENAL ####[id number] [place] [address] Chloride [Moles/Vol] 107 mmol/L Normal 98 - 107 [facility] Comment on above: Performed By: #### R ENAL ####[id number] [place] [address] Creatinine [Mass/Vol] 0.84 mg/dL Normal 0.50 - 1.30 [facility] Comment on above: Performed By: #### R ENAL ####[id number] [place] [address] GFR- AM. >60 Normal >60 [facility] Comment on above: Result Comment: CALC ULATIONS OF ESTIMATED GFR ARE PERFORMED USING THE MDRD STUDY EQUATION FOR THE IDMS-TRACEABLE CREATININE METHODS. CLIN CHEM 2007;53:766-72 Performed By: #### R ENAL ####[id number] [place] [address] GFR-NON AM. >60 Normal >60 [facility] Comment on above: Performed By: #### R ENAL ####[id number] [place] [address] Glucose [Mass/Vol] 164 mg/dL High 74 - 99 [facility] Comment on above: Performed By: #### R ENAL ####[id number] [place] [address] HCO3 (Bld) [Moles/Vol] 27 mmol/L Normal 21 - 32 [facility] Comment on above: Performed By: #### R ENAL ####[id number] [place] [address] Phosphate [Mass/Vol] 2.3 mg/dL Low 2.5 - 4.9 [facility] Comment on above: Result Comment: The performance characteristics of phosphorus testing in heparinized plasma have been validated by the individual laboratory site where testing is performed. Testing on heparinized plasma is not approved by the FDA; however, such approval is not necessary. Performed By: #### R ENAL ####[id number] [place] [address] Potassium [Moles/Vol] 3.6 mmol/L Normal 3.5 - 5.3 [facility] Comment on above: Performed By: #### R ENAL ####[id number] [place] [address] Sodium [Moles/Vol] 141 mmol/L Normal 136 - 145 [facility] Comment on above: Performed By: #### R ENAL ####[id number] [place] [address] Urea nitrogen [Mass/Vol] 21 mg/dL Normal 6 - 23 [facility] Comment on above: Performed By: #### R ENAL ####[id number] [place] [address] Albumin [Mass/Vol] 2.5 g/dL Low 3.4 - 5.0 [facility] Comment on above: Performed By: #### R ENAL ####[id number] [place] [address] Anion gap [Moles/Vol] 13 mmol/L Normal 10 - 20 [facility] Comment on above: Performed By: #### R ENAL ####[id number] [place] [address] Calcium [Mass/Vol] 7.4 mg/dL Low 8.6 - 10.6 [facility] Comment on above: Performed By: #### R ENAL ####[id number] [place] [address] Chloride [Moles/Vol] 106 mmol/L Normal 98 - 107 [facility] Comment on above: Performed By: #### R ENAL ####[id number] [place] [address] Creatinine [Mass/Vol] 0.86 mg/dL Normal 0.50 - 1.30 [facility] Comment on above: Performed By: #### R ENAL ####[id number] [place] [address] GFR- AM. >60 Normal >60 [facility] Comment on above: Result Comment: CALC ULATIONS OF ESTIMATED GFR ARE PERFORMED USING THE MDRD STUDY EQUATION FOR THE IDMS-TRACEABLE CREATININE METHODS. CLIN CHEM 2007;53:766-72 Performed By: #### R ENAL ####[id number] [place] [address] GFR-NON AM. >60 Normal >60 [facility] Comment on above: Performed By: #### R ENAL ####[id number] [place] [address] Glucose [Mass/Vol] 173 mg/dL High 74 - 99 [facility] Comment on above: Performed By: #### R ENAL ####[id number] [place] [address] HCO3 (Bld) [Moles/Vol] 29 mmol/L Normal 21 - 32 [facility] Comment on above: Performed By: #### R ENAL ####[id number] [place] [address] Phosphate [Mass/Vol] 2.5 mg/dL Normal 2.5 - 4.9 [facility] Comment on above: Result Comment: The performance characteristics of phosphorus testing in heparinized plasma have been validated by the individual laboratory site where testing is performed. Testing on heparinized plasma is not approved by the FDA; however, such approval is not necessary. Performed By: #### R ENAL ####[id number] [place] [address] Potassium [Moles/Vol] 3.6 mmol/L Normal 3.5 - 5.3 [facility] Comment on above: Performed By: #### R ENAL ####[id number] [place] [address] Sodium [Moles/Vol] 144 mmol/L Normal 136 - 145 [facility] Comment on above: Performed By: #### R ENAL ####[id number] [place] [address] Urea nitrogen [Mass/Vol] 22 mg/dL Normal 6 - 23 [facility] Comment on above: Performed By: #### R ENAL ####[id number] [place] [address] Albumin [Mass/Vol] 2.3 g/dL Low 3.4 - 5.0 [facility] Comment on above: Performed By: #### R ENAL ####[id number] [place] [address] Anion gap [Moles/Vol] 10 mmol/L Normal 10 - 20 [facility] Comment on above: Performed By: #### R ENAL ####[id number] [place] [address] Calcium [Mass/Vol] 7.4 mg/dL Low 8.6 - 10.6 [facility] Comment on above: Performed By: #### R ENAL ####[id number] [place] [address] Chloride [Moles/Vol] 107 mmol/L Normal 98 - 107 [facility] Comment on above: Performed By: #### R ENAL ####[id number] [place] [address] Creatinine [Mass/Vol] 0.93 mg/dL Normal 0.50 - 1.30 [facility] Comment on above: Performed By: #### R ENAL ####[id number] [place] [address] GFR- AM. >60 Normal >60 [facility] Comment on above: Result Comment: CALC ULATIONS OF ESTIMATED GFR ARE PERFORMED USING THE MDRD STUDY EQUATION FOR THE IDMS-TRACEABLE CREATININE METHODS. CLIN CHEM 2007;53:766-72 Performed By: #### R ENAL ####[id number] [place] [address] GFR-NON AM. >60 Normal >60 [facility] Comment on above: Performed By: #### R ENAL ####[id number] [place] [address] Glucose [Mass/Vol] 173 mg/dL High 74 - 99 [facility] Comment on above: Performed By: #### R ENAL ####[id number] [place] [address] HCO3 (Bld) [Moles/Vol] 29 mmol/L Normal 21 - 32 [facility] Comment on above: Performed By: #### R ENAL ####[id number] [place] [address] Phosphate [Mass/Vol] 2.6 mg/dL Normal 2.5 - 4.9 [facility] Comment on above: Result Comment: The performance characteristics of phosphorus testing in heparinized plasma have been validated by the individual laboratory site where testing is performed. Testing on heparinized plasma is not approved by the FDA; however, such approval is not necessary. Performed By: #### R ENAL ####[id number] [place] [address] Potassium [Moles/Vol] 3.3 mmol/L Low 3.5 - 5.3 [facility] Comment on above: Performed By: #### R ENAL ####[id number] [place] [address] Sodium [Moles/Vol] 143 mmol/L Normal 136 - 145 [facility] Comment on above: Performed By: #### R ENAL ####[id number] [place] [address] Urea nitrogen [Mass/Vol] 23 mg/dL Normal 6 - 23 [facility] Comment on above: Performed By: #### R ENAL ####[id number] [place] [address] URINE CULTURE,BACTERIALon URINE CULTURE,BACTERIAL PATIENT: ADEN PATEL LOCATION: [facility]#: [id number] : 54 AGE: SEX: M ORDERED BY: MELITA ALBARRAN SOURCE: URINE COLLECTED: 04/23/18 13:37 ANTIBIOTICS AT GUILLERMO.: RECEIVED : 04/23/18 16:59 SITE: Mir Catheter R E S U L T S URINE CULTURE,BACTERIAL FINAL 04/24/18 09:21 NO GROWTH Normal [facility] Comment on above: Performed By: #### U RINC ####[id number] [place] [address] ARTERIAL FULL PANELon 2018 Anion gap [Moles/Vol] 9 mmol/L Low 10 - 25 [facility] Comment on above: Performed By: #### A FPA3 ####[id number] [place] [address] BASE EXCESS-BLOOD 3.1 mmol/L High -2.0 - 3.0 [facility] Comment on above: Performed By: #### A FPA3 ####[id number] [place] [address] CALCIUM,IONIZED 1.04 mmol/L Low 1.10 - 1.33 [facility] Comment on above: Performed By: #### A FPA3 ####[id number] [place] [address] Chloride [Moles/Vol] 109 mmol/L High 98 - 107 [facility] Comment on above: Performed By: #### A FPA3 ####[id number] [place] [address] Glucose [Mass/Vol] 191 mg/dL High 74 - 99 [facility] Comment on above: Performed By: #### A FPA3 ####[id number] [place] [address] Hematocrit (Bld) [Volume fraction] 41.0 % Normal 41.0 - 52.0 [facility] Comment on above: Performed By: #### A FPA3 ####[id number] [place] [address] HGB,CALCULATED 13.9 g/dL Normal 13.5 - 17.5 [facility] Comment on above: Performed By: #### A FPA3 ####[id number] [place] [address] Lactate [Moles/Vol] 1.8 mmol/L Normal 0.4 - 2.0 [facility] Comment on above: Performed By: #### A FPA3 ####[id number] [place] [address] Oxygen (Bld) [Partial pressure] 82 mm[Hg] Low 85 - 95 [facility] Comment on above: Performed By: #### A FPA3 ####[id number] [place] [address] PCO2 38 mmHg Normal 38 - 42 [facility] Comment on above: Performed By: #### A FPA3 ####[id number] [place] [address] pH (Bld) 7.46 [pH] High 7.38 - 7.42 [facility] Comment on above: Performed By: #### A FPA3 ####[id number] [place] [address] Potassium [Moles/Vol] 3.0 mmol/L Low 3.5 - 5.3 [facility] Comment on above: Performed By: #### A FPA3 ####[id number] [place] [address] RBC (Bld) [#/Vol] 27.0 mmol/L High 22.0 - 26.0 [facility] Comment on above: Performed By: #### A FPA3 ####[id number] [place] [address] SO2 98 % Normal 94 - 100 [facility] Comment on above: Performed By: #### A FPA3 ####[id number] [place] [address] Sodium [Moles/Vol] 142 mmol/L Normal 136 - 145 [facility] Comment on above: Performed By: #### A FPA3 ####[id number] [place] [address] Anion gap [Moles/Vol] 7 mmol/L Low 10 - 25 [facility] Comment on above: Performed By: #### A FPA3 ####[id number] [place] [address] BASE EXCESS-BLOOD 8.0 mmol/L High -2.0 - 3.0 [facility] Comment on above: Performed By: #### A FPA3 ####[id number] [place] [address] CALCIUM,IONIZED 1.14 mmol/L Normal 1.10 - 1.33 [facility] Comment on above: Performed By: #### A FPA3 ####[id number] [place] [address] Chloride [Moles/Vol] 108 mmol/L High 98 - 107 [facility] Comment on above: Performed By: #### A FPA3 ####[id number] [place] [address] Glucose [Mass/Vol] 182 mg/dL High 74 - 99 [facility] Comment on above: Performed By: #### A FPA3 ####[id number] [place] [address] Hematocrit (Bld) [Volume fraction] 37.0 % Low 41.0 - 52.0 [facility] Comment on above: Performed By: #### A FPA3 ####[id number] [place] [address] HGB,CALCULATED 12.6 g/dL Low 13.5 - 17.5 [facility] Comment on above: Performed By: #### A FPA3 ####[id number] [place] [address] Lactate [Moles/Vol] 1.3 mmol/L Normal 0.4 - 2.0 [facility] Comment on above: Performed By: #### A FPA3 ####[id number] [place] [address] Oxygen (Bld) [Partial pressure] 53 mm[Hg] Low 85 - 95 [facility] Comment on above: Performed By: #### A FPA3 ####[id number] [place] [address] PCO2 35 mmHg Low 38 - 42 [facility] Comment on above: Performed By: #### A FPA3 ####[id number] [place] [address] pH (Bld) 7.55 [pH] High 7.38 - 7.42 [facility] Comment on above: Performed By: #### A FPA3 ####[id number] [place] [address] Potassium [Moles/Vol] 3.1 mmol/L Low 3.5 - 5.3 [facility] Comment on above: Performed By: #### A FPA3 ####[id number] [place] [address] RBC (Bld) [#/Vol] 30.6 mmol/L High 22.0 - 26.0 [facility] Comment on above: Performed By: #### A FPA3 ####[id number] [place] [address] SO2 92 % Low 94 - 100 [facility] Comment on above: Performed By: #### A FPA3 ####[id number] [place] [address] Sodium [Moles/Vol] 142 mmol/L Normal 136 - 145 [facility] Comment on above: Performed By: #### A FPA3 ####[id number] [place] [address] CALCIUM, IONIZEDon 9 CALCIUM,IONIZED 1.14 mmol/L Normal 1.10 - 1.33 [facility] Comment on above: Result Comment: The performance characteristics of ionized calcium tested in heparinized plasma or serum have been validated by the individual laboratory site where testing is performed. Testing on heparinized plasma or serum is not approved by the FDA; however, such approval is not necessary. Performed By: #### I ONC1 ####[id number] [place] [address] CALCIUM,IONIZED 1.12 mmol/L Normal 1.10 - 1.33 [facility] Comment on above: Result Comment: The performance characteristics of ionized calcium tested in heparinized plasma or serum have been validated by the individual laboratory site where testing is performed. Testing on heparinized plasma or serum is not approved by the FDA; however, such approval is not necessary. Performed By: #### I ONC1 ####[id number] [place] [address] CBCon 04-22-2018 Erythrocyte distribution width (RBC) [Ratio] 14.8 % High 11.5 - 14.5 [facility] Comment on above: Performed By: #### C BC ####[id number] [place] [address] Hematocrit (Bld) [Volume fraction] 29.5 % Low 41.0 - 52.0 [facility] Comment on above: Performed By: #### C BC ####[id number] [place] [address] Hemoglobin (Bld) [Mass/Vol] 10.0 g/dL Low 13.5 - 17.5 [facility] Comment on above: Performed By: #### C BC ####[id number] [place] [address] MCHC (RBC) [Mass/Vol] 33.9 g/dL Normal 32.0 - 36.0 [facility] Comment on above: Performed By: #### C BC ####[id number] [place] [address] MCV (RBC) [Entitic vol] 91 fL Normal 80 - 100 [facility] Comment on above: Performed By: #### C BC ####[id number] [place] [address] Nucleated RBC/100 WBC (Bld) [Ratio] 0.0 /100 WBC Normal 0.0-0.0 [facility] Comment on above: Performed By: #### C BC ####[id number] [place] [address] Platelets (Bld) [#/Vol] 224 10*3/uL Normal 150 - 450 [facility] Comment on above: Performed By: #### C BC ####[id number] [place] [address] RBC (Bld) [#/Vol] 3.24 x10E12/L Low 4.50 - 5.90 [facility] Comment on above: Performed By: #### C BC ####[id number] [place] [address] WBC (Bld) [#/Vol] 14.3 10*3/uL High 4.4 - 11.3 [facility] Comment on above: Performed By: #### C BC ####[id number] [place] [address] Erythrocyte distribution width (RBC) [Ratio] 14.7 % High 11.5 - 14.5 [facility] Comment on above: Performed By: #### C BC ####[id number] [place] [address] Hematocrit (Bld) [Volume fraction] 36.1 % Low 41.0 - 52.0 [facility] Comment on above: Performed By: #### C BC ####[id number] [place] [address] Hemoglobin (Bld) [Mass/Vol] 11.9 g/dL Low 13.5 - 17.5 [facility] Comment on above: Performed By: #### C BC ####[id number] [place] [address] MCHC (RBC) [Mass/Vol] 33.0 g/dL Normal 32.0 - 36.0 [facility] Comment on above: Performed By: #### C BC ####[id number] [place] [address] MCV (RBC) [Entitic vol] 94 fL Normal 80 - 100 [facility] Comment on above: Performed By: #### C BC ####[id number] [place] [address] Nucleated RBC/100 WBC (Bld) [Ratio] 0.1 /100 WBC Normal 0.0-0.0 [facility] Comment on above: Performed By: #### C BC ####[id number] [place] [address] Platelets (Bld) [#/Vol] 285 10*3/uL Normal 150 - 450 [facility] Comment on above: Performed By: #### C BC ####[id number] [place] [address] RBC (Bld) [#/Vol] 3.86 x10E12/L Low 4.50 - 5.90 [facility] Comment on above: Performed By: #### C BC ####[id number] [place] [address] WBC (Bld) [#/Vol] 15.1 10*3/uL High 4.4 - 11.3 [facility] Comment on above: Performed By: #### C BC ####[id number] [place] [address] COAGULATION SCREENon 019 aPTT Coag (Bld) [Time] 34 s Normal 28 - 38 [facility] Comment on above: Result Comment: THE APTT IS NO LONGER USED FOR MONITORING UNFRACTIONATED HEPARIN THERAPY. FOR MONITORING HEPARIN THERAPY, USE THE HEPARIN ASSAY. Performed By: #### C OAGS ####[id number] [place] [address] INR Coag (PPP) [Relative time] 1.2 {INR} High 0.9 - 1.1 [facility] Comment on above: Performed By: #### C OAGS ####[id number] [place] [address] PT Coag (PPP) [Time] 13.3 s High 9.7 - 12.7 [facility] Comment on above: Performed By: #### C OAGS ####[id number] [place] [address] aPTT Coag (Bld) [Time] 30 s Normal 28 - 38 [facility] Comment on above: Result Comment: THE APTT IS NO LONGER USED FOR MONITORING UNFRACTIONATED HEPARIN THERAPY. FOR MONITORING HEPARIN THERAPY, USE THE HEPARIN ASSAY. Performed By: #### C OAGS ####[id number] [place] [address] INR Coag (PPP) [Relative time] 1.2 {INR} High 0.9 - 1.1 [facility] Comment on above: Performed By: #### C OAGS ####[id number] [place] [address] PT Coag (PPP) [Time] 13.3 s High 9.7 - 12.7 [facility] Comment on above: Performed By: #### C OAGS ####[id number] [place] [address] Clinical Event Noteon 2018 Clinical Event Note Event: Details: This AM patient noted to have large amount of bilious drainage in vac. In PM yesterday, per team, had been serous. Also afib with RVR Decision for urgent OR for exploration. High risk of staple line breakdown and/or ongoing ischemia given clinical situation. Discussed with patient and family; all questions answered - informed consent including discussion of risks/benefits/alternatives obtained Resuscitation per SICU Electronic Signatures: Jannette Hutchison) (Signed 22-Apr-2018 09:03) Authored: Event Last Updated: 22-Apr-2018 09:03 by Jannette Hutchison) Normal [facility] Clinical Event Note-Post Op Checkon 04-22-2018 Clinical Event Note-Post Op Check Event: Topic: Post Op Check Details: Surgery Post Op Check Note S: No acute events since surgery. Pain is adequately controlled. No complaints. O: T 36.7 HR 97 BP 124/61 RR 20 Sat 96% Gen: NAD Neuro: Alert, oriented, conversant Card: tachycardia Pulm: Non-labored breathing; CTABL, no wheezing Abd: Soft, appropriately tender without rebound or guarding, distended. Abthera in place. Ext: Warm, well perfused, MAEE, SCDs in place A/P POD#0 s/p exploratory laparotomy, resection of proximal jejunal limb with stapler and oversew of staple line. serosal patch placed with proximal jejunal staple line. Left in discontinuity. Abdominal washout. Abthera vac placement Pt tolerated procedure well. Plan for takeback on Tuesday Pantera Wilcox M.D. General Surgery PGY-1 Colorectal Surgery [id number] Electronic Signatures: Pantera Wilcox (Resident)) (Signed 22-Apr-2018 20:17) Authored: Event Last Updated: 22-Apr-2018 20:17 by Pantera Wilcox (Resident)) Normal [facility] Clinical Intervention - Shameka severiano 04-22-2018 Clinical Intervention - Pharmacy Pharmacist's Clinical Intervention: Active and Pending Medications: Metoprolol Injectable, (LOPRESSOR) DOSE = 20 mg IntraVenous Push Once, 22-Apr-2018, Active Reason for pharmacist's clinical intervention: Dosage change Pharmacist intervention: Contacted physician Type of recommendation: Contacted MD to double check metoprolol dose. MD states pt currently in Afib & requiring higher doses of metoprolol Is this intervention medication reconciliation related: No Expected outcome and basis: Prevention of ADR/Error/Toxicity, Order clarified or corrected Electronic Signatures: Clau Anderson () (Signed 22-Apr-2018 08:42) Authored: Pharmacist's Clinical Intervention Last Updated: 22-Apr-2018 08:42 by Clau Anderson () Normal [facility] Daily Progress Note - Critic al Care-SICU Claire 04-22-2018 Daily [facility] Service: Critical Care Service: [facility] Subjective Data: ID Statement: ADEN PATEL is a 67 year old Male who is Hospital Day # 10 and ICU Day #3 and POD #2 for second look laparotomy, resection of ischemic/necrotic segment of jejunum, left in discontinuity. adbominal irrigation, placement of abthera. went into afib overnight this morning received metoprolol 5 mg x1, 10mg x3. Objective Data: Objective Information T PRBPSpO2 [id number]/8798% Date/Time04/22 4: 5: 5: 10: 5:00 Range(36.8C - 37.1C ) (85 - 145 ) (10 - 22 ) (154 - 158 )/ (87 - 99 ) (91% - 99% ) As of 22-Apr-2018 02:00:00, patient is on 12 L/min of oxygen via Venturi mask. Highest temp of 37.1 C was recorded at 04/21 12:00 Pain reported at 04/22 0:00: 0 Pain reported at 04/22 2:00: 0 Direct Arterial Blood Pressure [id number](108 - 188)04/22 5:00 Diastolic (mm Hg)63(63 - 88)04/22 5:00 Mean (mm Hg)76(76 - 120)04/22 5:00 Pulse Pressure (mm Hg)45(45 - 100)04/22 5:00 ---- Intake and Output ----- [facility] 22, [facility] 6:00 [id number] Apr 21, 2018 10:00 [id number] Apr 21, 2018 2:00 [id number] The Intake and Output Totals for the last 24 hours are: [facility] [id number] Physical Exam: Physical Exam: Neurological: alert and oriented x3, intact senses, motor, response and reflexes, normal strength Cardiovascular: afib Respiratory/Thorax: Patent airways, CTAB, normal breath sounds with good chest expansion, thorax symmetric Genitourinary: Mir catheter in place producing clear yellow urine Gastrointestinal: soft, midline vac in place holding suction, appropriately tender Skin: Warm and dry, no lesions, no rashes Musculoskeletal: moves all extremities generalized weakness Constitutional: Well developed, awake/alert/oriented x3, no distress, alert and cooperative Eyes: EOMI, clear sclera ENMT: mucous membranes moist, no apparent injury, no lesions seen, nasal cannula in place Head/Neck: NC/AT Extremities: trace lower extremity edema, no cyanosis Psychological: Appropriate mood and behavior Allergies: Allergies: No Known Allergies: Medications: Medications: ANTI-INFECTIVES: 1. Piperacillin - Tazobactam 3.375 gram/Iso-osmotic 50 mL Premix IVPB: 50 mL IntraVenous Piggyback Every 6 Hours CARDIOVASCULAR AGENTS: 1. Metoprolol Injectable: 2.5 mg IntraVenous Push Every 6 Hours 2. Metoprolol Injectable: 5 mg IntraVenous Push Once 3. Metoprolol Injectable: 10 mg IntraVenous Push Once 4. Metoprolol Injectable: 20 mg IntraVenous Push Once 5. hydrALAZINE (APRESOLINE) Injectable: 20 mg IntraVenous Push Every 4 Hours PRN CENTRAL NERVOUS SYSTEM AGENTS: 1. HYDROmorphone Injectable: 0.2 mg IntraVenous Push Every 2 Hours PRN 2. HYDROmorphone Injectable: 0.4 mg IntraVenous Push Every 2 Hours PRN 3. Ondansetron Injectable: 4 mg IntraVenous Push Once PRN COAGULATION MODIFIERS: 1. Heparin Flush 10 unit/ mL PF Injectable: 5 mL IntraVenous Flush Every 12 Hours PRN 2. Heparin Flush 10 unit/ mL PF Injectable PRN: 5 mL IntraVenous Flush According to Flush Policy PRN 3. Heparin Flush 10 unit/ mL PF Injectable PRN: 5 mL IntraVenous Flush According to Flush Policy PRN 4. Heparin Flush 10 unit/ mL PF Injectable PRN: 5 mL IntraVenous Flush According to Flush Policy PRN 5. Heparin SubCutaneous: 5000 unit(s) SubCutaneous Every 12 Hours GASTROINTESTINAL AGENTS: 1. Pantoprazole Injectable: 40 mg IntraVenous Push Every 12 Hours MISCELLANEOUS AGENTS: 1. Nicotine 21 mg/ 24 hour TransDermal: 1 patch TransDermal Every 24 Hours NUTRITIONAL PRODUCTS: 1. Amino Acids 10% (Travasol) IV Piggy Back: 25 gram(s) IntraVenous Piggyback Every 24 Hours 2. Dextrose 5% in Water Infusion: 1000 mL IntraVenous 3. Fat Emulsion 20% (SMOFLIPID) Infusion: 240 mL IntraVenous Piggyback Every 24 Hours 4. Lactated Ringers IV Bolus: 1000 mL IntraVenous Piggyback Once 5. TPN Standard- Amino Acids 5% - Dextrose 20%: 1000 mL IntraVenous Via Cycle Rates 6. Calcium Gluconate IVPB: 1 gram(s) IntraVenous Piggyback Every 6 Hours PRN 7. Calcium Gluconate IVPB: 2 gram(s) IntraVenous Piggyback Every 6 Hours PRN 8. Magnesium Sulfate 2 gram/Sterile Water 50 mL Premix Soln: 2 gram(s) IntraVenous Piggyback Every 6 Hours PRN 9. Magnesium Sulfate 4 gram/Sterile Water 100 mL Premix Soln: 4 gram(s) IntraVenous Piggyback Every 6 Hours PRN 10. Potassium Chloride 20 mEq/Sterile Water 100 mL Premix IVPB: 20 mEq IntraVenous Piggyback Every 6 Hours PRN 11. Potassium Chloride 40 mEq/Sterile Water 100 mL Premix IVPB: 40 mEq IntraVenous Piggyback Every 6 Hours PRN 12. Sodium Chloride 0.9% Injectable Flush: 10 mL IntraVenous Flush Every 12 Hours 13. Sodium Chloride 0.9% Injectable Flush PRN: 10 mL IntraVenous Flush According to Flush Policy PRN 14. Sodium Chloride 0.9% Injectable Flush PRN: 20 mL IntraVenous Flush According to Flush Policy PRN 15. Sodium Chloride 0.9% Injectable Flush PRN: 10 mL IntraVenous Flush According to Flush Policy PRN 16. Sodium Chloride 0.9% Injectable Flush PRN: 10 mL IntraVenous Flush According to Flush Policy PRN TOPICAL AGENTS: 1. Saliva Substitute: 15 mL Oral 4 Times a Day Recent Lab Results: Results: CBC: 04/22/2018 01:37 \ Hgb / \ 11.9 L / WBC Plt 15.1 H 285 / Hct \ / 36.1 L \ RBC: 3.86 L MCV: 94 RFP: 04/22/2018 01:37 NA+ Cl- BUN / 146 H 107 24 H / --- Glucose 191 H K+ HCO3- Creat \ 3.4 L 29 0.97 \ Calcium : 7.8 LAnion Gap : 13 Albumin : 2.5 L Phos : 1.6 L Coagulation: 04/22/2018 01:37 PT / 13.3 H / -------< INR < 1.2 H PTT\ 30 \ Fibrinogen: 470 H Recent Arterial Blood Gas Results 04/22/2018 01:42 [id number] pH7.55 [id number] SO292 Base Excess8.0 Byaimuceeor70.6 Assessment and Plan: Daily Risk Screen: Does patient have a central lineyes Central Line Typeimplanted access ports Plan for implanted access port removal todayyes Does patient have an indwelling urinary catheteryes Plan for indwelling urinary catheter removal todayno The patient continues to require indwelling urinary catheterization for critically ill patients who need accurate urinary output measurements Is the patient intubatedno Other: Diagnosis: Assessment: 67yo M with PMH of HTN, complicated left sided diverticulitis with perforation previously treated with abx, and perforated appendicitis requiring appendectomy and ileocolic resection at OSH 07/2017 c/b enterocutaneous fistula now s/p ex-lap with takedown of ileocolic anastomosis and fistula take down with redo of ileocolic anastomosis. A small enterovesical fistula was also taken down and primarily repaired as well as a primary ventral hernia repair with placement of subcutaneous MADISON drain on 04/14. Patient transferred to the SICU on 04/16 after a hypotensive episode and patient found to be unresponsive while on the commode. CT A/P with rectal contrast revealed hemoperitoneum and jejunal pneumatosis. Taken to OR 04/17 for ex-lap, evacuation of hematoma, omentectomy, and placement of abthera wound vac. 300mL of clot was evacuated from the omentum, oozing from the abdominal wall, jejunum with some patchy areas of ischemia, anastomosis viable and intact. 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 On 04/22 AM he went into afib with rvr HRs 130s, metoprolol 5 mg x1, 10mg x1, 20 mg x1 given; amiodarone bolus in the OR - MAPs between 65-80mmHg - Continuous EKG and ABP monitoring - Goal MAP >65, SBP <170 - Volume resuscitate as clinically indicated - Hydralazine 20mg every 4 hours for systolic greater than 165 - Metoprolol 12.5mg every 12 hours - Hold home antihypertensive meds PULM: Current everyday smoker, 20+ pack years - Continue nasal cannula, IS, EZ pap - CXR as clinically indicated - IS q1h and OOB to chair when extubated : No history of renal disease. MONTY, peak Cr 4.70 thus far. Baseline sCr 0.79. MONTY resolving - MIVF of 75 cc/hr plasmalyte - Continue mir catheter for strict I/Os. 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 CT A/P 04/17 concern for hemoperitoneum and jejunal pneumotosis. Return to OR on 04/17 for Ex-lap, hematoma evacuation. 04/20 jejunal resection left in discontinuity with wound vac in place - bilious drainage in wound vac overnight; went back to OR 04/22 for exploratory laparotomy, resection of proximal jejunal limb with stapler and oversew of staple line. serosal patch placed with proximal jejunal staple line. Abthera vac placement - NPO, nutrition rec's for TPN - Record MADISON drain output and characteristics - PPI prophylaxis - Daily abdominal x-ray HEME: Acute blood loss anemia. 2u pRBCs on 04/16. 3U on 04/17, H/H stable - CBC and coags as clinically indicated - Monitor drain output volume and characteristics - SCDs and SubQ Heparin for DVT prophylaxis. ENDO: No history of diabetes. - Goal BG 140-180 - Accuchecks q4h - SSI per SICU protocol ID: Afebrile, no current indication of infection. Surgical prophylaxis - recieved Ancef and Flagyl intra-op - Zosyn every 6 hours Proph: SCDs SubQ heparin PPI Lines: L IJ triple, L PIV PICC line jonn Prophylaxis: PPI SCDs Dispo: SICU purple team care for now Team phone: [phone] Code Status: Code StatusFull Code Signature/Cosignature/Attesta tion: Critical Care PatientI have reviewed and evaluated the most recent data and results, personally examined the patient, and formulated the plan of care as presented above. This patient was critically ill and required continued critical care treatment. Teaching and any separately billable procedures are not included in the time calculation. Billing Provider Critical Care Time45 minute(s) Primary Critical Care Issue/Treatment (See Assessment and Plan for greater detail)-- This patient has undergone a major operation or significant procedure and must have intensive monitoring and management to diagnose or prevent life or limb threatening deterioration. Please see assessment and plan above for greater detail. Electronic Signatures: Helou, Trav F (MD) (Signed 24-Apr-2018 14:42) Authored: Signature/Cosignature/Attesta tion Co-Signer: Service, Subjective Data, Objective Data, Assessment and Plan Matthew Joaquin (Resident)) (Signed 22-Apr-2018 14:14) Authored: Service, Subjective Data, Objective Data, Assessment and Plan Last Updated: 24-Apr-2018 14:42 by Trav Blum) [facility] Daily Progress Note-Colorect al Surgeryon 04-22-2018 Daily Progress Note-Colorectal Surgery Service: Colorectal Surgery Subjective Data: ADEN PATEL is a 67 year old Male who is Hospital Day # 10 and POD #2 for second look laparotomy, resection of ischemic/necrotic segment of jejunum, left in discontinuity. adbominal irrigation, placement of abthera. in afib with RVR this AM. bilious drainage from abthera noticed this AM. No N/V. Pain controlled. Objective Data: Objective Information: T PRBPSpO2 [id number]% Date/Time04/22 8: 8: 8: 8: 8:00 Range(36.8C - 37.1C ) (85 - 145 ) (10 - 22 ) (108 - 154 )/ (82 - 87 ) (91% - 99% ) As of 22-Apr-2018 04:00:00, patient is on 12 L/min of oxygen via Venturi mask. Highest temp of 37.1 C was recorded at 04/21 12:00 Pain reported at 04/22 6:00: 10 Pain reported at 04/22 6:00: 10 Physical Exam: Constitutional: Well developed, awake/alert/oriented x3, no distress, alert and cooperative Eyes: EOMI, clear sclera Head/Neck: Left central line in place Respiratory/Thorax: Nonlabored breathing on venti mask Cardiovascular: irregular rate/rhythm Gastrointestinal: Nondistended, soft, abthera in place, VAC with bilious output Genitourinary: Mir with clear yellow urine Extremities: MCKEON x 4 Neurological: alert and oriented x3 Psychological: Appropriate mood and behavior Medication: Medications: ANTI-INFECTIVES: 1. Piperacillin - Tazobactam 3.375 gram/Iso-osmotic 50 mL Premix IVPB: 50 mL IntraVenous Piggyback Every 6 Hours CARDIOVASCULAR AGENTS: 1. Metoprolol Injectable: 2.5 mg IntraVenous Push Every 6 Hours 2. Metoprolol Injectable: 5 mg IntraVenous Push Once 3. Metoprolol Injectable: 20 mg IntraVenous Push Once 4. hydrALAZINE (APRESOLINE) Injectable: 20 mg IntraVenous Push Every 4 Hours PRN CENTRAL NERVOUS SYSTEM AGENTS: 1. HYDROmorphone Injectable: 0.2 mg IntraVenous Push Every 2 Hours PRN 2. HYDROmorphone Injectable: 0.4 mg IntraVenous Push Every 2 Hours PRN 3. Ondansetron Injectable: 4 mg IntraVenous Push Once PRN COAGULATION MODIFIERS: 1. Heparin Flush 10 unit/ mL PF Injectable: 5 mL IntraVenous Flush Every 12 Hours PRN 2. Heparin Flush 10 unit/ mL PF Injectable PRN: 5 mL IntraVenous Flush According to Flush Policy PRN 3. Heparin Flush 10 unit/ mL PF Injectable PRN: 5 mL IntraVenous Flush According to Flush Policy PRN 4. Heparin Flush 10 unit/ mL PF Injectable PRN: 5 mL IntraVenous Flush According to Flush Policy PRN 5. Heparin SubCutaneous: 5000 unit(s) SubCutaneous Every 12 Hours GASTROINTESTINAL AGENTS: 1. Pantoprazole Injectable: 40 mg IntraVenous Push Every 12 Hours MISCELLANEOUS AGENTS: 1. Nicotine 21 mg/ 24 hour TransDermal: 1 patch TransDermal Every 24 Hours NUTRITIONAL PRODUCTS: 1. Amino Acids 10% (Travasol) IV Piggy Back: 25 gram(s) IntraVenous Piggyback Every 24 Hours 2. Dextrose 5% in Water Infusion: 1000 mL IntraVenous 3. Fat Emulsion 20% (SMOFLIPID) Infusion: 240 mL IntraVenous Piggyback Every 24 Hours 4. TPN Standard- Amino Acids 5% - Dextrose 20%: 1000 mL IntraVenous Via Cycle Rates 5. Calcium Gluconate IVPB: 1 gram(s) IntraVenous Piggyback Every 6 Hours PRN 6. Calcium Gluconate IVPB: 2 gram(s) IntraVenous Piggyback Every 6 Hours PRN 7. Magnesium Sulfate 2 gram/Sterile Water 50 mL Premix Soln: 2 gram(s) IntraVenous Piggyback Every 6 Hours PRN 8. Magnesium Sulfate 4 gram/Sterile Water 100 mL Premix Soln: 4 gram(s) IntraVenous Piggyback Every 6 Hours PRN 9. Potassium Chloride 20 mEq/Sterile Water 100 mL Premix IVPB: 20 mEq IntraVenous Piggyback Every 6 Hours PRN 10. Potassium Chloride 40 mEq/Sterile Water 100 mL Premix IVPB: 40 mEq IntraVenous Piggyback Every 6 Hours PRN 11. Sodium Chloride 0.9% Injectable Flush: 10 mL IntraVenous Flush Every 12 Hours 12. Sodium Chloride 0.9% Injectable Flush PRN: 10 mL IntraVenous Flush According to Flush Policy PRN 13. Sodium Chloride 0.9% Injectable Flush PRN: 20 mL IntraVenous Flush According to Flush Policy PRN 14. Sodium Chloride 0.9% Injectable Flush PRN: 10 mL IntraVenous Flush According to Flush Policy PRN 15. Sodium Chloride 0.9% Injectable Flush PRN: 10 mL IntraVenous Flush According to Flush Policy PRN TOPICAL AGENTS: 1. Saliva Substitute: 15 mL Oral 4 Times a Day Assessment and Plan: Assessment: 67yo M with Hx perforated appendicitis requiring appendectomy and ileocolic resection at OSH 07/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 On 04/14/18 he underwent ex lap with takedown of ileocolic anastomosis and fistula takedwon with redo of ileocolic anastomosis, and was also found to have small enterovesical fistula that was taken down and primarily repaired and primary ventral hernia repair with placement of subcutaneous MADISON drain. On 04/16/2018 (POD2) patient lost consciousness while on the commode and was bleeding from his abdominal wound. On exam, dark venous blood was evacuating from the inferior aspect of his abdominal incision. Initially he was unresponsive, however, he spontaneously regained consciousness and began following commands and responding to verbal cues. He had a pulse throughout the event, his SBP was in the 80s, and he was maintaining his saturations. Pressure was held on the abdominal incision, fluid bolus was started, and patient was transferred to the SICU. Patient was taken to the OR on 04/17/18 for ex-lap, evacuation of hematoma, omentectomy, abthera wound vac and was brought back to ICU intubated with open abdomen. Extubated on 04/19/18. Underwent second look laparotomy, resection of ischemic segment of jejunum, left in discontinuity, and abthera placed over open abdomen on 04/21/2018. Plan: - Appreciate ICU care - Strict bedrest - Strict NPO - NGT to remain in place and functioning at all times - Please obtain daily KUBs - PICC/TPN - Monitor VAC output - Vac with bilious drainage today, will take back for another exploratory laparotomy today with possible bowel resection likely staple line break down from most recent small bowel resection. - Please call with any issues or changes Patient discussed with attending surgeon Dr. Jacome. López Blake MD [place] [id number] SCIP Measures: Urinary Catheter Removed Post-Op Day 2: no Reason Patient Needs Mir: Strict I&0 Patient on Beta Jeannette Prior to Admission: yes Restarted on Beta Jeannette by Post-Op Day 2: yes Prophylactic antibiotics scheduled to be discontinued with 24 hr of anesthesia end time (48 hr for cardiac surgery): N/A, patient not on prophylactic antibiotics Electronic Signatures: López Blake (Fellow)) (Signed 22-Apr-2018 09:14) Authored: Service, Subjective Data, Objective Data, Assessment and Plan, SCIP Measures, Signature/Cosignature/Attesta tion Jannette Hutchison) (Signed 23-Apr-2018 08:28) Authored: Signature/Cosignature/Attesta tion Co-Signer: Service, Subjective Data, Objective Data, Assessment and Plan, SCIP Measures, Signature/Cosignature/Attesta tion Last Updated: 23-Apr-2018 08:28 by Jannette Hutchison) Normal [facility] FIBRINOGENon 04-22-2018 FIBRINOGEN 470 mg/dL High 200 - 400 [facility] Comment on above: Performed By: #### F IB ####[id number] [place] [address] GLUCOSE-POCTon 04-22-2018 Glucose [Mass/Vol] 178 mg/dL High 74 - 99 [facility] Comment on above: Performed By: #### G VAISHALI ####[id number] [place] [address] Glucose [Mass/Vol] 182 mg/dL High 74 - 99 [facility] Comment on above: Performed By: #### G VAISHALI ####[id number] [place] [address] Glucose [Mass/Vol] 185 mg/dL High 74 - 99 [facility] Comment on above: Performed By: #### G VAISHALI ####[id number] [place] [address] MAGNESIUMon 04-22-2018 Magnesium [Mass/Vol] 2.07 mg/dL Normal 1.60 - 2.40 [facility] Comment on above: Performed By: #### M G ####[id number] [place] [address] Magnesium [Mass/Vol] 2.06 mg/dL Normal 1.60 - 2.40 [facility] Comment on above: Performed By: #### M G ####[id number] [place] [address] OPERATIVE REPORTon 9 OPERATIVE REPORT [facility] [id number] [id number] Patient Name: ADEN PATEL : 1950 Date of Service: 04/22/2018 Patient Location: [place] [address] Patient Type: I Surgeon: Jannette Hutchison MD Report Type: Operative Reports PREOPERATIVE DIAGNOSIS: Jejunal perforation. POSTOPERATIVE DIAGNOSIS: Jejunal perforation. OPERATION/PROCEDURE: 1. Reopening of recent laparotomy. 2. Small-bowel resection. 3. Serosal patch. 4. Replacement of ABThera VAC. SURGEON: Dr. Jannette Hutchison. DIRECTOR GLOBAL SALES(S): Dr. López Blake. ANESTHESIA: COMPLICATIONS: None. EBL: Minimal. FINDINGS: Disruption at previous proximal jejunal staple line. INDICATIONS: Mr. 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 His postoperative course was complicated by jejunal ischemia and resection. He was currently managed with an open abdomen and ABThera wound VAC. On morning rounds, he was noted to be in atrial fibrillation with rapid ventricular response and to have bile in his ABThera VAC. The decision was made to return to the operating room. PROCEDURE: Informed consent was obtained after discussion of risks, benefits, and alternatives. The patient was brought to the operating room and placed supine on the operating table. Sequential compression devices were placed. Huddle was completed according to hospital procedures. He was already on antibiotics. General anesthesia was induced. He was intubated. He was repositioned supine. The abdomen was prepped and the and draped in the usual fashion. A time-out was completed. The ABThera VAC was removed. The abdomen was very carefully explored. His bowel was dilated and friable. Finger fracture was used to gently separate out loops of bowel. The proximal jejunal staple line was identified and there was a leak just underneath it. The staple line itself was intact, but the serosa just underneath the staple line had split. A significant amount of bile was evacuated. A window was made in the mesentery several centimeters proximal to the previous staple line in preparation for resection and re-stapling. Of note, because the bowel was open the mucosa was able to be inspected. It was very healthy, pink, viable, although somewhat edematous. A Seth clamp was placed on the mesentery and a TAN stapler with a green load was used to staple off the last couple of centimeters of the old staple line and bowel. The mesentery was amputated. The specimen was passed off the field. The mesentery was then suture ligated with a #1 chromic suture with excellent hemostasis. The serosa on the staple line looked like it was also starting to split consistent with friable edematous bowel. It was oversewn with chromic sutures in a esmqjn-[id number] fashion. The abdomen was then irrigated and suctioned. Irrigation was performed until the irrigation fluid was clear and all the visible contamination had been washed out. At this point, the NG tube was repositioned in the post-pyloric position and placed on suction. The bowel was manually decompressed up toward the stomach. The decision was made to make a serosal patch out of the distal segment of bowel in order to further protect it in case the same thing happened again. The proximal staple line was then buried using interrupted 2-0 Vicryl sutures in a nycipd-my-zdzlr fashion against the relatively healthy though still somewhat dilated and edematous distal bowel in order to make a serosal patch. The abdomen was checked for hemostasis which was found to be adequate. ABThera VAC was then replaced. He was transferred back to the surgical intensive care unit in stable condition. Counts were correct at the end of the procedure. I was present and scrubbed throughout. Jannette Hutchison MD EST TT: 04/22/2018 09:33 PM EST DICTATION NUMBER: [id number] JUSTINO JOB NUMBER: [id number] CC: Quentin Rangel, [id number] Nolvia Colmenares MD Electronically Signed by Dr. Jannette Hutchison 04/24/2018 01:43:16 PM Normal [facility] RENAL FUNCTION PANELon 04-22 Albumin [Mass/Vol] 2.7 g/dL Low 3.4 - 5.0 [facility] Comment on above: Performed By: #### R ENAL ####[id number] [place] [address] Anion gap [Moles/Vol] 11 mmol/L Normal 10 - 20 [facility] Comment on above: Performed By: #### R ENAL ####[id number] [place] [address] Calcium [Mass/Vol] 7.9 mg/dL Low 8.6 - 10.6 [facility] Comment on above: Performed By: #### R ENAL ####[id number] [place] [address] Chloride [Moles/Vol] 109 mmol/L High 98 - 107 [facility] Comment on above: Performed By: #### R ENAL ####[id number] [place] [address] Creatinine [Mass/Vol] 0.93 mg/dL Normal 0.50 - 1.30 [facility] Comment on above: Performed By: #### R ENAL ####[id number] [place] [address] GFR- AM. >60 Normal >60 [facility] Comment on above: Result Comment: CALC ULATIONS OF ESTIMATED GFR ARE PERFORMED USING THE MDRD STUDY EQUATION FOR THE IDMS-TRACEABLE CREATININE METHODS. CLIN CHEM 2007;53:766-72 Performed By: #### R ENAL ####[id number] [place] [address] GFR-NON AM. >60 Normal >60 [facility] Comment on above: Performed By: #### R ENAL ####[id number] [place] [address] Glucose [Mass/Vol] 200 mg/dL High 74 - 99 [facility] Comment on above: Performed By: #### R ENAL ####[id number] [place] [address] HCO3 (Bld) [Moles/Vol] 30 mmol/L Normal 21 - 32 [facility] Comment on above: Performed By: #### R ENAL ####[id number] [place] [address] Phosphate [Mass/Vol] 3.1 mg/dL Normal 2.5 - 4.9 [facility] Comment on above: Result Comment: The performance characteristics of phosphorus testing in heparinized plasma have been validated by the individual laboratory site where testing is performed. Testing on heparinized plasma is not approved by the FDA; however, such approval is not necessary. Performed By: #### R ENAL ####[id number] [place] [address] Potassium [Moles/Vol] 3.5 mmol/L Normal 3.5 - 5.3 [facility] Comment on above: Performed By: #### R ENAL ####[id number] [place] [address] Sodium [Moles/Vol] 146 mmol/L High 136 - 145 [facility] Comment on above: Performed By: #### R ENAL ####[id number] [place] [address] Urea nitrogen [Mass/Vol] 24 mg/dL High 6 - 23 [facility] Comment on above: Performed By: #### R ENAL ####[id number] [place] [address] Albumin [Mass/Vol] 2.5 g/dL Low 3.4 - 5.0 [facility] Comment on above: Performed By: #### R ENAL ####[id number] [place] [address] Anion gap [Moles/Vol] 13 mmol/L Normal 10 - 20 [facility] Comment on above: Performed By: #### R ENAL ####[id number] [place] [address] Calcium [Mass/Vol] 7.8 mg/dL Low 8.6 - 10.6 [facility] Comment on above: Performed By: #### R ENAL ####[id number] [place] [address] Chloride [Moles/Vol] 107 mmol/L Normal 98 - 107 [facility] Comment on above: Performed By: #### R ENAL ####[id number] [place] [address] Creatinine [Mass/Vol] 0.97 mg/dL Normal 0.50 - 1.30 [facility] Comment on above: Performed By: #### R ENAL ####[id number] [place] [address] GFR- AM. >60 Normal >60 [facility] Comment on above: Result Comment: CALC ULATIONS OF ESTIMATED GFR ARE PERFORMED USING THE MDRD STUDY EQUATION FOR THE IDMS-TRACEABLE CREATININE METHODS. CLIN CHEM 2007;53:766-72 Performed By: #### R ENAL ####[id number] [place] [address] GFR-NON AM. >60 Normal >60 [facility] Comment on above: Performed By: #### R ENAL ####[id number] [place] [address] Glucose [Mass/Vol] 191 mg/dL High 74 - 99 [facility] Comment on above: Performed By: #### R ENAL ####[id number] [place] [address] HCO3 (Bld) [Moles/Vol] 29 mmol/L Normal 21 - 32 [facility] Comment on above: Performed By: #### R ENAL ####[id number] [place] [address] Phosphate [Mass/Vol] 1.6 mg/dL Low 2.5 - 4.9 [facility] Comment on above: Result Comment: The performance characteristics of phosphorus testing in heparinized plasma have been validated by the individual laboratory site where testing is performed. Testing on heparinized plasma is not approved by the FDA; however, such approval is not necessary. Performed By: #### R ENAL ####[id number] [place] [address] Potassium [Moles/Vol] 3.4 mmol/L Low 3.5 - 5.3 [facility] Comment on above: Performed By: #### R ENAL ####[id number] [place] [address] Sodium [Moles/Vol] 146 mmol/L High 136 - 145 [facility] Comment on above: Performed By: #### R ENAL ####[id number] [place] [address] Urea nitrogen [Mass/Vol] 24 mg/dL High 6 - 23 [facility] Comment on above: Performed By: #### R ENAL ####[id number] [place] [address] TH ABDOMEN AP VIEWon 019 TH ABDOMEN AP VIEW Patient Name: ADEN PATEL STUDY: TH ABDOMEN AP VIEW; 04/22/2018 12:52 pm INDICATION: Signs/Symptoms: post op. COMPARISON: 04/21/2018 ACCESSION NUMBER(S): [id number] ORDERING CLINICIAN: MATTHEW JOAQUIN FINDINGS: NG tube overlies the body of stomach. Nonobstructive bowel gas pattern. Limited evaluation of pneumoperitoneum on supine imaging, however no gross evidence of free air is noted. Bibasilar atelectasis. Degenerative changes of the lumbar spine. IMPRESSION: 1. NG tube overlies the body of stomach. Electronically signed by: Mason SHIELDS MD Normal [facility] TH CHEST 1 VIEWon 04-22-2018 TH CHEST 1 VIEW Patient Name: ADEN PATEL STUDY: TH CHEST 1 VIEW; 04/22/2018 7:29 am INDICATION: Signs/Symptoms: am rounds. COMPARISON: 04/21/2018 ACCESSION NUMBER(S): [id number] ORDERING CLINICIAN: JODY VALDES FINDINGS: CARDIOMEDIASTINAL SILHOUETTE: Cardiomediastinal silhouette is normal in size and configuration. LUNGS: Bibasilar atelectasis and effusions. No interval change. No pneumothorax. ABDOMEN: No remarkable upper abdominal findings. BONES: Marked degenerative disease of the shoulders. IMPRESSION: 1. Essentially stable bibasilar atelectasis and effusions. No pneumothorax. Electronically signed by: Mason SHIELDS MD Normal [facility] Surgical Pathology Depar tmenton 04-22-2018 [facility] Surgical Pathology Department Name ADEN PATEL Pathologist: MONO DUMONT MD Date of Procedure: 04/22/2018 Date Received: 04/23/2018 Date Reported 04/26/2018 Submitting Physician: JANNETTE HUTCHISON MD Location: IC Other External # FINAL DIAGNOSIS A. SMALL BOWEL, JEJUNUM, PARTIAL RESECTION: --SMALL BOWEL MUCOSA WITH ULCERATION AND ISCHEMIC NECROSIS. --ACUTE AND ORGANIZING SEROSITIS. The gross and/or microscopic findings were reviewed in conjunction with pathology resident, Adan Mahan DO. Electronically Signed Out By MONO DUMONT MD/PATTIM By the signature on this report, the individual or group listed as making the Final Interpretation/Diagnosis certifies that they have reviewed this case. Clinical History: Diverticulitis Specimens Submitted As: A: JEJUNUM Gross Description: A: Received in formalin, labeled with the patient's name and hospital number, is an un-oriented segment of small bowel, without attached mesentery and fibrofatty tissue, measuring 5.7 cm in length and 3.7 cm in diameter. The serosal surface is thickened, green-yellow and arellano. A staple line is present at one end of the specimen measuring 6.2 cm, opposite end of the specimen is opened. The bowel wall demonstrates irregular diffuse thickening, up to 0.6 cm. A stricture is not present. Diverticula are present, ranging from 0.2 cm to .4 cm, none of which appear perforated. The process does extend to the lines of resection. Polyps are not present. [employer] Traffic Control Manager sections are submitted in 4 cassettes. [facility] Summary of Cassettes: Specimen Label Site A 1-4 medical office representative sections of diverticula [facility]/04/24/2018 Normal [facility] Comment on above: Performed By: #### U HCS ####[facility] Surgical Pathology [id number] [place] [address] ARTERIAL FULL PANELon 2018 Anion gap [Moles/Vol] 7 mmol/L Low 10 - 25 [facility] Comment on above: Order Comment: criti vasiliy results read to Cherelle Gonzalez and read back to [facility], 04/21/2018 04:27 Performed By: #### A FPA3 ####[id number] [place] [address] BASE EXCESS-BLOOD 1.0 mmol/L Normal -2.0 - 3.0 [facility] Comment on above: Order Comment: criti vasiliy results read to Cherelle Gonzalez and read back to [facility], 04/21/2018 04:27 Performed By: #### A FPA3 ####[id number] [place] [address] CALCIUM,IONIZED 0.90 mmol/L Low 1.10 - 1.33 [facility] Comment on above: Order Comment: criti vasiliy results read to Cherelle Gonzalez and read back to [facility], 04/21/2018 04:27 Performed By: #### A FPA3 ####[id number] [place] [address] Chloride [Moles/Vol] 116 mmol/L High 98 - 107 [facility] Comment on above: Order Comment: criti vasiliy results read to Cherelle Gonzalez and read back to [facility], 04/21/2018 04:27 Performed By: #### A FPA3 ####[id number] [place] [address] Glucose [Mass/Vol] 89 mg/dL Normal 74 - 99 [facility] Comment on above: Order Comment: criti vasiliy results read to Cherelle Gonzalez and read back to [facility], 04/21/2018 04:27 Performed By: #### A FPA3 ####[id number] [place] [address] Hematocrit (Bld) [Volume fraction] 22.0 % Low 41.0 - 52.0 [facility] Comment on above: Order Comment: criti vasiliy results read to Cherelle Gonzalez and read back to [facility], 04/21/2018 04:27 Performed By: #### A FPA3 ####[id number] [place] [address] HGB,CALCULATED 7.5 g/dL Low 13.5 - 17.5 [facility] Comment on above: Order Comment: criti vasiliy results read to Cherelle Gonzalez and read back to [facility], 04/21/2018 04:27 Performed By: #### A FPA3 ####[id number] [place] [address] Lactate [Moles/Vol] 0.8 mmol/L Normal 0.4 - 2.0 [facility] Comment on above: Order Comment: criti vasiliy results read to Cherelle Gonzalez and read back to [facility], 04/21/2018 04:27 Performed By: #### A FPA3 ####[id number] [place] [address] Oxygen (Bld) [Partial pressure] 72 mm[Hg] Low 85 - 95 [facility] Comment on above: Order Comment: criti vasiliy results read to Cherelle Gonzalez and read back to [facility], 04/21/2018 04:27 Performed By: #### A FPA3 ####[id number] [place] [address] PCO2 29 mmHg Low 38 - 42 [facility] Comment on above: Order Comment: criti vasiliy results read to Cherelle Gonzalez and read back to [facility], 04/21/2018 04:27 Performed By: #### A FPA3 ####[id number] [place] [address] pH (Bld) 7.52 [pH] High 7.38 - 7.42 [facility] Comment on above: Order Comment: criti vasiliy results read to Cherelle Gonzalez and read back to [facility], 04/21/2018 04:27 Performed By: #### A FPA3 ####[id number] [place] [address] Potassium [Moles/Vol] 2.7 mmol/L Critically low 3.5 - 5.3 [facility] Comment on above: Order Comment: criti vasiliy results read to Cherelle Gonzalez and read back to [facility], 04/21/2018 04:27 Result Comment: crit ical results read to Cherelle Gonzalez and read back to [facility], 04/21/2018 04:27 Performed By: #### A FPA3 ####[id number] [place] [address] RBC (Bld) [#/Vol] 23.7 mmol/L Normal 22.0 - 26.0 [facility] Comment on above: Order Comment: criti vasiliy results read to Cherelle Gonzalez and read back to [facility], 04/21/2018 04:27 Performed By: #### A FPA3 ####[id number] [place] [address] SO2 97 % Normal 94 - 100 [facility] Comment on above: Order Comment: criti vasiliy results read to Cherelle Gonzalez and read back to [facility], 04/21/2018 04:27 Performed By: #### A FPA3 ####[id number] [place] [address] Sodium [Moles/Vol] 144 mmol/L Normal 136 - 145 [facility] Comment on above: Order Comment: criti vasiliy results read to Cherelle Gonzalez and read back to [facility], 04/21/2018 04:27 Performed By: #### A FPA3 ####[id number] [place] [address] CALCIUM, IONIZEDon 9 CALCIUM,IONIZED 0.92 mmol/L Low 1.10 - 1.33 [facility] Comment on above: Result Comment: The performance characteristics of ionized calcium tested in heparinized plasma or serum have been validated by the individual laboratory site where testing is performed. Testing on heparinized plasma or serum is not approved by the FDA; however, such approval is not necessary. Performed By: #### I ONC1 ####[id number] [place] [address] CALCIUM,IONIZED 1.07 mmol/L Low 1.10 - 1.33 [facility] Comment on above: Result Comment: The performance characteristics of ionized calcium tested in heparinized plasma or serum have been validated by the individual laboratory site where testing is performed. Testing on heparinized plasma or serum is not approved by the FDA; however, such approval is not necessary. Performed By: #### I ONC1 ####[id number] [place] [address] CBCon 04-21-2018 Erythrocyte distribution width (RBC) [Ratio] 14.8 % High 11.5 - 14.5 [facility] Comment on above: Performed By: #### C BC ####[id number] [place] [address] Hematocrit (Bld) [Volume fraction] 35.2 % Low 41.0 - 52.0 [facility] Comment on above: Performed By: #### C BC ####[id number] [place] [address] Hemoglobin (Bld) [Mass/Vol] 11.3 g/dL Low 13.5 - 17.5 [facility] Comment on above: Performed By: #### C BC ####[id number] [place] [address] MCHC (RBC) [Mass/Vol] 32.1 g/dL Normal 32.0 - 36.0 [facility] Comment on above: Performed By: #### C BC ####[id number] [place] [address] MCV (RBC) [Entitic vol] 93 fL Normal 80 - 100 [facility] Comment on above: Performed By: #### C BC ####[id number] [place] [address] Nucleated RBC/100 WBC (Bld) [Ratio] 0.0 /100 WBC Normal 0.0-0.0 [facility] Comment on above: Performed By: #### C BC ####[id number] [place] [address] Platelets (Bld) [#/Vol] 208 10*3/uL Normal 150 - 450 [facility] Comment on above: Performed By: #### C BC ####[id number] [place] [address] RBC (Bld) [#/Vol] 3.79 x10E12/L Low 4.50 - 5.90 [facility] Comment on above: Performed By: #### C BC ####[id number] [place] [address] WBC (Bld) [#/Vol] 10.9 10*3/uL Normal 4.4 - 11.3 [facility] Comment on above: Performed By: #### C BC ####[id number] [place] [address] COAGULATION SCREENon 019 aPTT Coag (Bld) [Time] 30 s Normal 28 - 38 [facility] Comment on above: Result Comment: THE APTT IS NO LONGER USED FOR MONITORING UNFRACTIONATED HEPARIN THERAPY. FOR MONITORING HEPARIN THERAPY, USE THE HEPARIN ASSAY. Performed By: #### C OAGS ####[id number] [place] [address] INR Coag (PPP) [Relative time] 1.1 {INR} Normal 0.9 - 1.1 [facility] Comment on above: Performed By: #### C OAGS ####[id number] [place] [address] PT Coag (PPP) [Time] 12.1 s Normal 9.7 - 12.7 [facility] Comment on above: Performed By: #### C OAGS ####[id number] [place] [address] Daily Progress Note - Critic al Care-SICUon 04-21-2018 Daily Progress Note - Critical Care-SICU Service: Critical Care Service: ServiceSICU Subjective Data: ID Statement: ADEN PATEL is a 67 year old Male who is Hospital Day # 9 and ICU Day #2 and POD #1 for second look laparotomy, resection of ischemic/necrotic segment of jejunum, left in discontinuity. adbominal irrigation, placement of abthera. No acute events overnight. POD#1 resection of ischemic/necrotic segment of jejunum. This AM reports pain well controlled, mild abdominal discomfort. Denies chest pain, shortness of breath, nausea, vomiting. Objective Data: Objective Information T PRBPSpO2 [id number]/[id number]% Date/Time04/21 4: 6: 6: 6: 6:00 Range(36.5C - 37.1C ) (81 - 89 ) (13 - 22 ) (146 - 163 )/ (82 - 109 ) (93% - 100% ) As of 21-Apr-2018 04:00:00, patient is on 4 L/min of oxygen via nasal cannula. Highest temp of 37.1 C was recorded at 04/20 8:00 Pain reported at 04/21 6:00: 4 Pain reported at 04/21 5:00: 8 Direct Arterial Blood Pressure [id number](135 - 192)04/21 6:00 Diastolic (mm Hg)84(66 - 84)04/21 6:00 Mean (mm Hg)113(91 - 116)04/21 6:00 Pulse Pressure (mm Hg)81(59 - 114)04/21 6:00 [id number](135 - 192)04/20 11:04 Diastolic (mm Hg)76(66 - 84)04/20 11:04 Mean (mm Hg)102(91 - 116)04/20 11:04 Pulse Pressure (mm Hg)59(59 - 114)04/20 11:04 ---- Intake and Output ----- Mn/Dy/[facility] Apr 21, 2018 6:00 [id number] Apr 20, 2018 10:00 [id number] Apr 20, 2018 2:00 [id number] The Intake and Output Totals for the last 24 hours are: [id number] Drain and tube details (included in I&O totals) 2785 cc Indwelling Catheter - Urethral( 21-Apr-2018 06:00:00 ) Physical Exam: Physical Exam: Neurological: alert and oriented x3, nonfocal exam Cardiovascular: Regular, rate and rhythm, no murmurs, 2+ equal pulses of the extremities, normal S 1and S 2 Respiratory/Thorax: Patent airways, good chest expansion, thorax symmetric, rhonchi bilaterally Genitourinary: Mir catheter in place producing clear yellow urine Gastrointestinal: soft, midline vac in place holding suction, appropriately tender Skin: Warm and dry, no lesions, no rashes Musculoskeletal: moves all extremities generalized weakness Constitutional: Well developed, awake/alert/oriented x3, no distress, alert and cooperative Eyes: EOMI, clear sclera ENMT: mucous membranes moist, no apparent injury, no lesions seen, nasal cannula in place Head/Neck: NC/AT Extremities: trace lower extremity edema, no cyanosis Psychological: Appropriate mood and behavior RASS: Waldrop Agitation Sedation Scale (RASS): 0 (alert and calm) spontaneously pays attention to caregiver Allergies: Allergies: No Known Allergies: Medications: Medications: ANTI-INFECTIVES: 1. Piperacillin - Tazobactam 3.375 gram/Iso-osmotic 50 mL Premix IVPB: 50 mL IntraVenous Piggyback Every 6 Hours CARDIOVASCULAR AGENTS: 1. hydrALAZINE (APRESOLINE) Injectable: 20 mg IntraVenous Push Every 4 Hours PRN CENTRAL NERVOUS SYSTEM AGENTS: 1. HYDROmorphone Injectable: 0.2 mg IntraVenous Push Every 2 Hours PRN 2. HYDROmorphone Injectable: 0.4 mg IntraVenous Push Every 2 Hours PRN COAGULATION MODIFIERS: 1. Heparin SubCutaneous: 5000 unit(s) SubCutaneous Every 12 Hours GASTROINTESTINAL AGENTS: 1. Pantoprazole Injectable: 40 mg IntraVenous Push Every 12 Hours MISCELLANEOUS AGENTS: 1. Lidocaine 1% Injectable (PICC KIT): 1 mL IntraDermal Once PRN 2. Nicotine 21 mg/ 24 hour TransDermal: 1 patch TransDermal Every 24 Hours NUTRITIONAL PRODUCTS: 1. PLASMA-LYTE Infusion: 1000 mL IntraVenous 2. Calcium Gluconate IVPB: 1 gram(s) IntraVenous Piggyback Every 6 Hours PRN 3. Calcium Gluconate IVPB: 2 gram(s) IntraVenous Piggyback Every 6 Hours PRN 4. Magnesium Sulfate 2 gram/Sterile Water 50 mL Premix Soln: 2 gram(s) IntraVenous Piggyback Every 6 Hours PRN 5. Magnesium Sulfate 4 gram/Sterile Water 100 mL Premix Soln: 4 gram(s) IntraVenous Piggyback Every 6 Hours PRN 6. Potassium Chloride 20 mEq/Sterile Water 100 mL Premix IVPB: 20 mEq IntraVenous Piggyback Every 6 Hours PRN 7. Potassium Chloride 40 mEq/Sterile Water 100 mL Premix IVPB: 40 mEq IntraVenous Piggyback Every 6 Hours PRN 8. Sodium Chloride 0.9% Injectable Flush: 10 mL IntraVenous Flush Every 12 Hours TOPICAL AGENTS: 1. Saliva Substitute: 15 mL Oral 4 Times a Day Recent Lab Results: Results: CBC: 04/21/2018 04:05 \ Hgb / \ 11.3 L / WBC Plt 10.9 208 / Hct \ / 35.2 L \ RBC: 3.79 L MCV: 93 RFP: 04/21/2018 04:05 NA+ Cl- BUN / 147 H 106 28 H / --- Glucose 115 H K+ HCO3- Creat \ 3.7 29 1.12 \ Calcium : 7.5 LAnion Gap : 16 Albumin : 2.6 L Phos : 2.6 Coagulation: 04/21/2018 04:05 PT / 12.1 / -------< INR < 1.1 PTT\ 30 \ Fibrinogen: 529 H Recent Arterial Blood Gas Results 04/21/2018 04:20 pO272 pH7.52 tTI102 SO297 Base Excess1.0 Fqaevxshuld36.7 Assessment and Plan: Daily Risk Screen: Does patient have a central lineyes Central Line Typenon-tunneled Plan for non-tunneled central line removal todayno The patient continues to require non-tunneled central line access forPlan for return to OR Does patient have an indwelling urinary catheteryes Plan for indwelling urinary catheter removal todayyes Is the patient intubatedno Other: Diagnosis: Assessment: 67yo M with PMH of HTN, complicated left sided diverticulitis with perforation previously treated with abx, and perforated appendicitis requiring appendectomy and ileocolic resection at OSH 07/2017 c/b enterocutaneous fistula now s/p ex-lap with takedown of ileocolic anastomosis and fistula take down with redo of ileocolic anastomosis. A small enterovesical fistula was also taken down and primarily repaired as well as a primary ventral hernia repair with placement of subcutaneous MADISON drain on 04/14. Patient transferred to the SICU on 04/16 after a hypotensive episode and patient found to be unresponsive while on the commode. CT A/P with rectal contrast revealed hemoperitoneum and jejunal pneumatosis. Taken to OR 04/17 for ex-lap, evacuation of hematoma, omentectomy, and placement of abthera wound vac. 300mL of clot was evacuated from the omentum, oozing from the abdominal wall, jejunum with some patchy areas of ischemia, anastomosis viable and intact. 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 MONTY, peak Cr 4.70 thus far. Baseline sCr 0.79. MONTY resolving - MIVF of 75 cc/hr plasmalyte - Continue mir catheter for strict I/Os. 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 CT A/P 04/17 concern for hemoperitoneum and jejunal pneumotosis. Return to OR on 04/17 for Ex-lap, hematoma evacuation. 04/20 jejunal resection left in discontinuity with wound vac in place - NPO, nutrition rec's for TPN will start when PICC placed - Record MADISON drain output and characteristics - PPI prophylaxis - Daily abdominal x-ray HEME: Acute blood loss anemia. 2u pRBCs on 04/16. 3U on 04/17, H/H stable - CBC and coags as clinically indicated - Monitor drain output volume and characteristics - SCDs and SubQ Heparin for DVT prophylaxis. ENDO: No history of diabetes. - Goal BG 140-180 - Accuchecks q4h - SSI per SICU protocol ID: Afebrile, no current indication of infection. Surgical prophylaxis - recieved Ancef and Flagyl intra-op - Zosyn every 6 hours Proph: SCDs SubQ heparin PPI Lines: L IJ triple, L PIV PICC line ordered remove A-line today Prophylaxis: PPI SCDs Dispo: SICU purple team care for now Team phone: [phone] Code Status: Code StatusFull Code Signature/Cosignature/Attesta tion: Comments/ Additional Findings 67 year-old male with hx of perforated diverticulitis and appendicitis ICA and appendectomy at OSH in July 2017. Post op course c/b by ECF-> on 04/14 s/p takedown ECF, revision ICA, takedown enterovesical fistula and VHR,. Course complicated by hypotension/resp distress necessitating ICU admission on 04/16. Evidence of acute bleeding via wound on 04/17 taken back to for ex lap. To OR 04/20 for second look laparotomy, resection of ischemic/necrotic segment of jejunum, left in discontinuity. adbominal irrigation, placement of abthera. Currently: Ischemic jejunum- s/p resection. continue zosyn for now Remains in discontinuity, going to OR tuesday for potential closureAcute blood-loss anemia- Hb stable in past 24 hours continue to monitor closely Acute (postop pulm insufficiency) , hx of smoking extubated. on nasal cannula. encouraged aggressive bronchopulm hygiene, incentive spiromety, etc MONTY- improving, creatinine downtrending Place PICC line for TPN Replete K Electronic Signatures: Davis Del Valle) (Signed 21-Apr-2018 13:23) Authored: Signature/Cosignature/Attesta tion Co-Signer: Objective Data, Assessment and Plan, Signature/Cosignature/Attesta tion Yovany Ayers ( (Resident)) (Signed 21-Apr-2018 11:17) Authored: Service, Subjective Data, Objective Data, Assessment and Plan, Signature/Cosignature/Attesta tion Last Updated: 21-Apr-2018 13:23 by Davis Del Valle) Normal [facility] Daily Progress Note-Colorect al Surgeryon 04-21-2018 Daily Progress Note-Colorectal Surgery Service: Colorectal Surgery Subjective Data: ADEN PATEL is a 67 year old Male who is Hospital Day # 9 and POD #1 for second look laparotomy, resection of ischemic/necrotic segment of jejunum, left in discontinuity. adbominal irrigation, placement of abthera. Would like to drink. H/H has remained stable. Is making adequate UOP. Had 1700 cc from VAC overnight- serosang drainage. Objective Data: Objective Information: T PRBPSpO2 [id number]/8796% Date/Time04/21 12: 14: 14: 10: 14:00 Range(36.5C - 37.3C ) (82 - 93 ) (10 - 22 ) (143 - 163 )/ (82 - 109 ) (93% - 100% ) As of 21-Apr-2018 12:00:00, patient is on 4 L/min of oxygen via nasal cannula. Highest temp of 37.3 C was recorded at 04/21 8:00 Physical Exam: Constitutional: Well developed, awake/alert/oriented x3, no distress, alert and cooperative Eyes: EOMI, clear sclera Head/Neck: Left central line in place Respiratory/Thorax: Nonlabored breathing on 6L NC Cardiovascular: Regular rate Gastrointestinal: Nondistended, soft, abthera in place, VAC with sanguinous output. Genitourinary: Mir with clear yellow urine Extremities: MCKEON x 4 Neurological: alert and oriented x3 Psychological: Appropriate mood and behavior Medication: Medications: Continuous Medications --- 1. PLASMA-LYTE Infusion: 1000 mL IntraVenous Scheduled Medications --- 1. Amino Acids 10% (Travasol) IV Piggy Back: 25 gram(s) IntraVenous Piggyback Every 24 Hours 2. Fat Emulsion 20% (SMOFLIPID) Infusion: 240 mL IntraVenous Piggyback Every 24 Hours 3. Heparin SubCutaneous: 5000 unit(s) SubCutaneous Every 12 Hours 4. Metoprolol Injectable: 2.5 mg IntraVenous Push Every 6 Hours 5. Nicotine 21 mg/ 24 hour TransDermal: 1 patch TransDermal Every 24 Hours 6. Pantoprazole Injectable: 40 mg IntraVenous Push Every 12 Hours 7. Piperacillin - Tazobactam 3.375 gram/Iso-osmotic 50 mL Premix IVPB: 50 mL IntraVenous Piggyback Every 6 Hours 8. Saliva Substitute: 15 mL Oral 4 Times a Day 9. Sodium Chloride 0.9% Injectable Flush: 10 mL IntraVenous Flush Every 12 Hours 10. TPN Standard- Amino Acids 5% - Dextrose 20%: 960 mL IntraVenous Via Cycle Rates PRN Medications --- 1. Calcium Gluconate IVPB: 1 gram(s) IntraVenous Piggyback Every 6 Hours 2. Calcium Gluconate IVPB: 2 gram(s) IntraVenous Piggyback Every 6 Hours 3. Heparin Flush 10 unit/ mL PF Injectable PRN: 5 mL IntraVenous Flush According to Flush Policy 4. hydrALAZINE (APRESOLINE) Injectable: 20 mg IntraVenous Push Every 4 Hours 5. HYDROmorphone Injectable: 0.2 mg IntraVenous Push Every 2 Hours 6. HYDROmorphone Injectable: 0.4 mg IntraVenous Push Every 2 Hours 7. Lidocaine 1% Injectable (PICC KIT): 1 mL IntraDermal Once 8. Magnesium Sulfate 2 gram/Sterile Water 50 mL Premix Soln: 2 gram(s) IntraVenous Piggyback Every 6 Hours 9. Magnesium Sulfate 4 gram/Sterile Water 100 mL Premix Soln: 4 gram(s) IntraVenous Piggyback Every 6 Hours 10. Potassium Chloride 20 mEq/Sterile Water 100 mL Premix IVPB: 20 mEq IntraVenous Piggyback Every 6 Hours 11. Potassium Chloride 40 mEq/Sterile Water 100 mL Premix IVPB: 40 mEq IntraVenous Piggyback Every 6 Hours 12. Sodium Chloride 0.9% Injectable Flush PRN: 10 mL IntraVenous Flush According to Flush Policy Recent Lab Results: Results: I have reviewed these laboratory results: Glucose_POCT 21-Apr-2018 08:46:00 ResultValue Glucose-POCT 102 H Arterial Full Panel 21-Apr-2018 04:20:00 ResultValue Lab Comment: critical results read to Cherelle Gonzalez and read back to NORRIS, 04/21/2018 04:27 pH, Arterial 7.52 H pCO2, Arterial 29 L pO2, Arterial 72 L Patient-Temperature 37.0 SO2, Arterial 97 HCT 22.0 L Sodium-Level 144 Potassium-Level 2.7 LL Chloride-Level 116 H Calcium, Ionized-Level 0.90 L Glucose-Level 89 Lactate-Level 0.8 Base Excess-Blood 1.0 Bicarbonate, Calculated, Arterial 23.7 HGB, Calculated 7.5 L Anion Gap-Level 7 L Coagulation Screen 21-Apr-2018 04:05:00 ResultValue Prothrombin Time, Plasma 12.1 International Normalized Ratio, Plasma 1.1 Activated Partial Thromboplastin Time 30 Complete Blood Count 21-Apr-2018 04:05:00 ResultValue White Blood Cell Count 10.9 Nucleated Erythrocyte Count 0.0 Red Blood Cell Count 3.79 L HGB 11.3 L HCT 35.2 L MCV 93 MCHC 32.1 PLT 208 RDW-CV 14.8 H Renal Function Panel 21-Apr-2018 04:05:00 ResultValue Glucose, Serum 115 H NA 147 H K 3.7 CL 106 Bicarbonate, Serum 29 Anion Gap, Serum 16 BUN 28 H CREAT 1.12 GFR-Non >60 GFR- >60 Calcium, Serum 7.5 L Phosphorus, Serum 2.6 ALB 2.6 L Fibrinogen Assay 21-Apr-2018 04:05:00 ResultValue Fibrinogen 529 H Radiology Results: Results: Impression: 1. Unchanged bibasilar and retrocardiac opacity, likely representing atelectasis with small pleural effusions. 2. Medical devices as above. Xray Chest 1 View [Apr 21 2018 7:09AM] Impression: *Enteric tube seen looping within left upper quadrant and tip overlying expected location of gastric body. Of note, there is acute kinking along the distal aspect of the enteric tube and correlate with function. *Nonobstructive bowel gas pattern. Xray Abdomen AP View [Apr 21 2018 7:08AM] Assessment and Plan: Assessment: 67yo M with Hx perforated appendicitis requiring appendectomy and ileocolic resection at OSH 07/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 On 04/14/18 he underwent ex lap with takedown of ileocolic anastomosis and fistula takedwon with redo of ileocolic anastomosis, and was also found to have small enterovesical fistula that was taken down and primarily repaired and primary ventral hernia repair with placement of subcutaneous MADISON drain. On 04/16/2018 (POD2) patient lost consciousness while on the commode and was bleeding from his abdominal wound. On exam, dark venous blood was evacuating from the inferior aspect of his abdominal incision. Initially he was unresponsive, however, he spontaneously regained consciousness and began following commands and responding to verbal cues. He had a pulse throughout the event, his SBP was in the 80s, and he was maintaining his saturations. Pressure was held on the abdominal incision, fluid bolus was started, and patient was transferred to the SICU. Patient was taken to the OR on 04/17/18 for ex-lap, evacuation of hematoma, omentectomy, abthera wound vac and was brought back to ICU intubated with open abdomen. Extubated on 04/19/18. Underwent second look laparotomy, resection of ischemic segment of jejunum, left in discontinuity, and abthera placed over open abdomen on 04/21/2018 Plan: - Appreciate ICU care - Strict bedrest - Strict NPO - NGT to remain in place and functioning at all times - Please obtain daily KUBs - PICC to be placed and TPN to start today - Monitor VAC output - Plan for OR Tuesday for re-exploration - Please call with any issues or changes Patient discussed with attending surgeon Dr. Colmenares. crys [facility], PGY-2 [place] [id number] Signature/Cosignature/Attesta tion: Attending Anthony saw and evaluated the patient. I personally obtained the thibodeaux and critical portions of the history and physical exam or was physically present for thibodeaux and critical portions performed by the resident/fellow. I reviewed the resident/fellows documentation and discussed the patient with the resident/fellow. I agree with the resident/fellows medical decision making as documented in the residents note. I personally evaluated the patient (as noted in the above attestation) on 21-Apr-2018 Electronic Signatures: Marquez Bronson (Resident)) (Signed 21-Apr-2018 14:06) Authored: Service, Subjective Data, Objective Data, Assessment and Plan, Signature/Cosignature/Attesta tion Nolvia Colmenares) (Signed 22-Apr-2018 16:15) Authored: Signature/Cosignature/Attesta tion Co-Signer: Service, Subjective Data, Objective Data, Assessment and Plan, Signature/Cosignature/Attesta tion Last Updated: 22-Apr-2018 16:15 by Nolvia Colmenares) Normal [facility] FIBRINOGENon 04-21-2018 FIBRINOGEN 529 mg/dL High 200 - 400 [facility] Comment on above: Performed By: #### F IB ####[id number] [place] [address] GLUCOSE-POCTon 04-21-2018 Glucose [Mass/Vol] 104 mg/dL High 74 - 99 [facility] Comment on above: Performed By: #### G VAISHALI ####[id number] [place] [address] Glucose [Mass/Vol] 102 mg/dL High 74 - 99 [facility] Comment on above: Performed By: #### G VAISHALI ####[id number] [place] [address] Glucose [Mass/Vol] 109 mg/dL High 74 - 99 [facility] Comment on above: Performed By: #### G VAISHALI ####[id number] [place] [address] MAGNESIUMon 04-21-2018 Magnesium [Mass/Vol] 2.01 mg/dL Normal 1.60 - 2.40 [facility] Comment on above: Performed By: #### M G ####[id number] [place] [address] Magnesium [Mass/Vol] 1.97 mg/dL Normal 1.60 - 2.40 [facility] Comment on above: Performed By: #### M G ####[id number] [place] [address] Nutrition Therapy-Assessment on 04-21-2018 Nutrition Therapy-Assessmen t Assessment Subjective/Objective: Note Type: Assessment Note Authored by: Registered Dietitian Welt Butter Hand Pager Number: [phone] Nutrition Note: 67yo M with PMH of HTN, complicated left sided diverticulitis with perforation previously treated with abx, and perforated appendicitis requiring appendectomy and ileocolic resection at OSH 07/2017 c/b enterocutaneous fistula. H/o being on TPN, which was discontinued ~ 4 weeks prior to surgery. Pt adm for planned EC fistula takedown. 04/14 - exploratory laparotomy, takedown of enterocutaneus fistula, resection of previous ileocolic anastomosis, recreation of ileocolic anastomosis, takedown of enterovesicle fistula with primary repair of bowel and bladder. Primary closure of ventral hernia, subcutaneous drain placement. 04/17 - Exploratory laparotomy, evacuation hematoma, omentectomy, abthera wound vac 04/20 - second look laparotomy, resection of ischemic/necrotic segment of jejunum, left in discontinuity. adbominal irrigation, placement of abthera. Objective Information: Intake Output IV Fluids 2225 mL Urine 2785 mL Stool 2 mL GI 600 mL Drain 1700 mL Height/Weight: Height in cm: 183 centimeter(s) Weight (kg): 96.6 BMI (kg/m2): 28.845 square meter DBW (kg): 81 %DBW: 119 Weight history/ % weight change: Pt reports UBW fluctuates between 208-213# Significant Weight Change: no Recent Lab Results: Results: I have reviewed these laboratory results: Glucose_POCT Trending View [id number] 08:46:00 20-Apr-2018 23:03:00 20-Apr-2018 15:30:00 20-Apr-2018 10:57:00 20-Apr-2018 09:19:00 20-Apr-2018 08:09:00 20-Apr-2018 03:26:00 20-Apr-2018 00:32:00 19-Apr-2018 20:20:00 19-Apr-2018 16:19:00 19-Apr-2018 11:24:00 Glucose-JLJJ491 H 109 H 111 H 98 128 H 75 81 74 81 81 76 Complete Blood Count Trending View [id number] 04:05:00 20-Apr-2018 21:16:00 20-Apr-2018 03:36:00 White Blood Cell Count10.9 9.1 8.8 Nucleated Erythrocyte Count0.0 0.0 0.0 Red Blood Cell Count3.79 L 3.54 L 3.25 L HGB11.3 L 10.9 L 9.8 L HCT35.2 L 33.7 L 30.1 L MCV93 95 93 MCHC32.1 32.3 32.6 KIK512 176 162 RDW-CV14.8 H 14.8 H 14.9 H Renal Function Panel Trending View [id number] 04:05:00 20-Apr-2018 15:33:00 20-Apr-2018 03:35:00 19-Apr-2018 18:04:00 Glucose, Vzyvi797 H 112 H 66 L 70 L NA147 H 148 H 146 H 146 H K3.7 3.5 3.6 3.2 L CL106 105 105 106 Bicarbonate, Serum29 30 27 28 Anion Gap, Serum16 17 18 15 BUN28 H 30 H 37 H 43 H CREAT1.12 1.10 1.37 H 1.65 H GFR-Non >60 >60 52 A 42 A GFR->60 >60 63 51 A Calcium, Serum7.5 L 7.8 L 7.6 L 7.8 L Phosphorus, Serum2.6 3.2 3.0 2.8 ALB2.6 L 2.9 L 2.5 L 2.6 L Calcium, Ionized Level 21-Apr-2018 04:05:00 ResultValue Calcium, Ionized Level 1.07 L Magnesium, Serum Trending View [id number]-Jib-[id number] 04:05:00 20-Apr-2018 15:33:00 20-Apr-2018 03:35:00 Magnesium, Serum1.97 1.94 1.98 Coagulation Screen 20-Apr-2018 03:37:00 ResultValue Prothrombin Time, Plasma 11.2 International Normalized Ratio, Plasma 1.0 Activated Partial Thromboplastin Time 29 Current Active Medications/PN: Piperacillin - Tazobactam 3.375 gram/Iso-osmotic 50 mL Premix IVPB, (ZOSYN) Every 6 Hours Recommended Infusion Time: 30 minute(s), 20-Apr-2018 Pantoprazole Injectable, (PROTONIX) DOSE = 40 mg IntraVenous Push Every 12 Hours, 20-Apr-2018 PLASMA-LYTE Infusion, IV Bag Volume = 1,000 mL Run at: 75 mL/hr IntraVenous Stop After 3 Days, 20-Apr-2018 Nutrition Orders: NPO, Routine ., 20-Apr-2018 Additional Orders: Received consult for Enteral feeding recommendations, however consult was placed prior to OR visit 04/20. Pt with small bowel in discontinuity and unable to feed enterally at this time. Food/Nutrition Related History: Pt reports improved oral intake & stable wt recently. Nutrition Focused Physical Findings: Muscle Wasting: Temporal: yes Shoulder: no Clavicle: no Scapula/Back: defer Biceps/Triceps: no Interosseous: yes Quadriceps: defer Calf: no Muscle Comment: mild wasting which may be assoc'd with prior complex medical issues +/- age related changes. Loss of Subcutaneous Fat: Eyes: no Perioral: no Triceps: no Chest: defer Other Physical Findings: Skin: JUAN Edema: none Subjective Global Assessment Rating: malnutrition not present at this time Estimated Needs: kcals/day: 0734-0638 gms protein/day: 120+ mL fluid/day: 7149-0841 or per MD Nutrition Diagnosis: Diagnosis1 new. Dx: Altered GI function. related to surgery/acute illness as evidenced by multiple OR visits for GI surgery, pt currently with bowel in discontinuity, NPO or Clear liquid diet x 7 days. Additional Assessment Information: At this point pt would benefit from TPN until able to utilize GI tract. Nutrition Interventions: Individualized Nutrition Prescription Provided for: parenteral nutrition Provided Nutrition Support Recommendations: TPN/lipids/travasol provides: 1994 kcal, 125 gms protein, 2482 ml totoal volume Nutrition Goals: Goals: Nutrition Therapy: nutrition support goals are met within 48 hrs, Blood Glucose 80-180 mg/dl, promote healing Outcomes Summary: Nutrition Therapy Outcome Summary: Nutritional Therapy: Altered GI NUTRITION RECOMMENDATIONS: Recommendations: Would initiate TPN - pt needs central access (ie PICC) PARENTERAL NUTRITION RECOMMENDATIONS: Parenteral Nutrition Formula: Clinimix E AA 5% Dextrose 15% Goal Rate (mL/hr) 83. Additional Instructions: begin at 40 mL/hr then increase to goal after 24 hr if blood sugars less than 180 and no major shifts in electrolytes occur. Multivitamin and Trace elements. 20% Lipids 250 mL run at 20 mL/hr x 12/hr = 240 mL/day *Please order SMOF lipids*. Labs/Monitors: Weight: daily Additional Labs: renal panel and magnesium daily, replete electrolytes prn, triglycerides: check now and each week, LFT's check now and each week Other Recommendations: 250 ml 10% travasol (25 gms) daily, deliver over 24 hr Dietitian Monitoring and Evaluation Plan: Monitoring and Evaluation Plan: vitamin/mineral intake, digestive function, Nutrition Support tolerance/adequacy, weight trend, urine volume, skin healing/integrity, labs Time Spent (minutes): 60 Nutrition Support: yes TPN Electronic Signatures: Mariangel Gtz (RDN, LD) (Signed 27-Apr-2018 08:44) Authored: Assessment Subjective/Objective, Nutrition Focused Physical Findings, Estimated Needs, Nutrition Diagnosis, Nutrition Interventions, Nutrition Goals, Nutrition Recommendations, Parenteral Nutrition Recommendations, Dietitian Monitoring and Evaluation Plan, Time Spent/Nutrition Support Last Updated: 27-Apr-2018 08:44 by Mariangel Gtz (RDN, LD) Normal [facility] RENAL FUNCTION PANELon 04-21 Albumin [Mass/Vol] 2.1 g/dL Low 3.4 - 5.0 [facility] Comment on above: Performed By: #### R ENAL ####[id number] [place] [address] Anion gap [Moles/Vol] 12 mmol/L Normal 10 - 20 [facility] Comment on above: Performed By: #### R ENAL ####[id number] [place] [address] Calcium [Mass/Vol] 6.2 mg/dL Low 8.6 - 10.6 [facility] Comment on above: Performed By: #### R ENAL ####[id number] [place] [address] Chloride [Moles/Vol] 115 mmol/L High 98 - 107 [facility] Comment on above: Performed By: #### R ENAL ####[id number] [place] [address] Creatinine [Mass/Vol] 0.87 mg/dL Normal 0.50 - 1.30 [facility] Comment on above: Performed By: #### R ENAL ####[id number] [place] [address] GFR- AM. >60 Normal >60 [facility] Comment on above: Result Comment: CALC ULATIONS OF ESTIMATED GFR ARE PERFORMED USING THE MDRD STUDY EQUATION FOR THE IDMS-TRACEABLE CREATININE METHODS. CLIN CHEM 2007;53:766-72 Performed By: #### R ENAL ####[id number] [place] [address] GFR-NON AM. >60 Normal >60 [facility] Comment on above: Performed By: #### R ENAL ####[id number] [place] [address] Glucose [Mass/Vol] 100 mg/dL High 74 - 99 [facility] Comment on above: Performed By: #### R ENAL ####[id number] [place] [address] HCO3 (Bld) [Moles/Vol] 26 mmol/L Normal 21 - 32 [facility] Comment on above: Performed By: #### R ENAL ####[id number] [place] [address] Phosphate [Mass/Vol] 1.9 mg/dL Low 2.5 - 4.9 [facility] Comment on above: Result Comment: The performance characteristics of phosphorus testing in heparinized plasma have been validated by the individual laboratory site where testing is performed. Testing on heparinized plasma is not approved by the FDA; however, such approval is not necessary. Performed By: #### R ENAL ####[id number] [place] [address] Potassium [Moles/Vol] 3.0 mmol/L Low 3.5 - 5.3 [facility] Comment on above: Performed By: #### R ENAL ####[id number] [place] [address] Sodium [Moles/Vol] 150 mmol/L High 136 - 145 [facility] Comment on above: Performed By: #### R ENAL ####[id number] [place] [address] Urea nitrogen [Mass/Vol] 23 mg/dL Normal 6 - 23 [facility] Comment on above: Performed By: #### R ENAL ####[id number] [place] [address] Albumin [Mass/Vol] 2.6 g/dL Low 3.4 - 5.0 [facility] Comment on above: Performed By: #### R ENAL ####[id number] [place] [address] Anion gap [Moles/Vol] 16 mmol/L Normal 10 - 20 [facility] Comment on above: Performed By: #### R ENAL ####[id number] [place] [address] Calcium [Mass/Vol] 7.5 mg/dL Low 8.6 - 10.6 [facility] Comment on above: Performed By: #### R ENAL ####[id number] [place] [address] Chloride [Moles/Vol] 106 mmol/L Normal 98 - 107 [facility] Comment on above: Performed By: #### R ENAL ####[id number] [place] [address] Creatinine [Mass/Vol] 1.12 mg/dL Normal 0.50 - 1.30 [facility] Comment on above: Performed By: #### R ENAL ####[id number] [place] [address] GFR- AM. >60 Normal >60 [facility] Comment on above: Result Comment: CALC ULATIONS OF ESTIMATED GFR ARE PERFORMED USING THE MDRD STUDY EQUATION FOR THE IDMS-TRACEABLE CREATININE METHODS. CLIN CHEM 2007;53:766-72 Performed By: #### R ENAL ####[id number] [place] [address] GFR-NON AM. >60 Normal >60 [facility] Comment on above: Performed By: #### R ENAL ####[id number] [place] [address] Glucose [Mass/Vol] 115 mg/dL High 74 - 99 [facility] Comment on above: Performed By: #### R ENAL ####[id number] [place] [address] HCO3 (Bld) [Moles/Vol] 29 mmol/L Normal 21 - 32 [facility] Comment on above: Performed By: #### R ENAL ####[id number] [place] [address] Phosphate [Mass/Vol] 2.6 mg/dL Normal 2.5 - 4.9 [facility] Comment on above: Result Comment: The performance characteristics of phosphorus testing in heparinized plasma have been validated by the individual laboratory site where testing is performed. Testing on heparinized plasma is not approved by the FDA; however, such approval is not necessary. Performed By: #### R ENAL ####[id number] [place] [address] Potassium [Moles/Vol] 3.7 mmol/L Normal 3.5 - 5.3 [facility] Comment on above: Performed By: #### R ENAL ####[id number] [place] [address] Sodium [Moles/Vol] 147 mmol/L High 136 - 145 [facility] Comment on above: Performed By: #### R ENAL ####[id number] [place] [address] Urea nitrogen [Mass/Vol] 28 mg/dL High 6 - 23 [facility] Comment on above: Performed By: #### R ENAL ####[id number] [place] [address] TH ABDOMEN AP VIEWon 019 TH ABDOMEN AP VIEW Patient Name: ADEN PATEL STUDY: TH ABDOMEN AP VIEW; 04/21/2018 3:04 pm INDICATION: Signs/Symptoms: reposition of NG tube, post surgical patient in discontinuity/ open abdomen. COMPARISON: 04/21/2018 ACCESSION NUMBER(S): [id number] ORDERING CLINICIAN: YOVANY AYERS FINDINGS: Partially visualized central venous catheter with tip overlying the distal SVC. Similar appearance of a enteric tube which is coiled in the stomach with the tip overlying the gastric body. Of note, the acute angulation along the distal end is no less evident. Nonobstructive bowel gas pattern. Limited evaluation of pneumoperitoneum on supine imaging, however no gross evidence of free air is noted. Redemonstration of bibasilar opacities, representing small pleural effusions with associated atelectasis. Osseous structures demonstrate no acute bony changes. IMPRESSION: 1. Similar appearance of a enteric tube which is coiled in the stomach with the tip overlying the gastric body, although the distal tip angulation is less evident on present exam. 2. Nonobstructive bowel gas pattern. I personally reviewed the images/study and I agree with the findings as stated. This study was interpreted at [facility], [place], [place]. Electronically signed by: KIKI QUEZADA MD Normal [facility] ABDOMEN AP VIEW Patient Name: ADEN PATEL STUDY: ABDOMEN AP VIEW; 04/21/2018 6:57 am INDICATION: Signs/Symptoms: NGT placement. COMPARISON: Radiograph from 04/17/2018 ACCESSION NUMBER(S): [id number] ORDERING CLINICIAN: MARQUEZ BRONSON FINDINGS: Enteric tube is seen coursing below diaphragm a looping within left upper quadrant and tip overlying expected location of gastric body. Of note, there is acute kinking along the distal aspect of the enteric tube and correlate with function. Nonobstructive bowel gas pattern. Limited evaluation of pneumoperitoneum on supine imaging, however no gross evidence of free air is noted. Osseous structures demonstrate no acute bony changes. Degenerative changes within visualized spine, most pronounced in the lower lumbar region. IMPRESSION: *Enteric tube seen looping within left upper quadrant and tip overlying expected location of gastric body. Of note, there is acute kinking along the distal aspect of the enteric tube and correlate with function. *Nonobstructive bowel gas pattern. Electronically signed by: KIKI QUEZADA MD Normal [facility] CHEST 1 VIEWon 04-21-2018 TH CHEST 1 VIEW Patient Name: ADEN PATEL STUDY: TH CHEST 1 VIEW; 04/21/2018 6:57 am INDICATION: Signs/Symptoms: AM rounds. COMPARISON: Chest radiograph from 04/20/2018 ACCESSION NUMBER(S): [id number] ORDERING CLINICIAN: CLARA PADGETT FINDINGS: Enteric tube is seen coursing below diaphragm and better evaluated on concurrent abdominal radiograph. Left IJ central venous catheter tip stably overlies mid to distal SV C. The cardiomediastinal silhouette is persistently enlarged unchanged from prior. Slightly better inspiratory effort on present examination. Unchanged bibasilar retrocardiac opacity. No jonny pulmonary edema. No pneumothorax. No acute osseous abnormality. IMPRESSION: 1. Unchanged bibasilar and retrocardiac opacity, likely representing atelectasis with small pleural effusions. 2. Medical devices as above. Electronically signed by: KIKI QUEZADA MD Normal [facility] TRIGLYCERIDESon 04-21-2018 Triglyceride [Mass/Vol] 91 mg/dL Normal 0 - 149 [facility] Comment on above: Result Comment: . AGE DESIRABLE BORDERLINE HIGH HIGH VERY HIGH 0 D-90 D 19 - 174 ---- ---- ---- 91 D- 9 Y 0 - 74 75 - 99 >/= 100 ---- 10-19 Y 0 - 89 90 - 129 >/= 130 ---- 20-24 Y 0 - 114 115 - 149 >/= 150 ---- >24 Y 0 - 149 150 - 199 200- 499 >/= 500 . Venipuncture immediately after or during the administration of Metamizole may lead to falsely low results. Testing should be performed immediately prior to Metamizole dosing. Performed By: #### T RIG ####[id number] [place] [address] CBCon 04-20-2018 Erythrocyte distribution width (RBC) [Ratio] 14.8 % High 11.5 - 14.5 [facility] Comment on above: Performed By: #### C BC ####[id number] [place] [address] Hematocrit (Bld) [Volume fraction] 33.7 % Low 41.0 - 52.0 [facility] Comment on above: Performed By: #### C BC ####[id number] [place] [address] Hemoglobin (Bld) [Mass/Vol] 10.9 g/dL Low 13.5 - 17.5 [facility] Comment on above: Performed By: #### C BC ####[id number] [place] [address] MCHC (RBC) [Mass/Vol] 32.3 g/dL Normal 32.0 - 36.0 [facility] Comment on above: Performed By: #### C BC ####[id number] [place] [address] MCV (RBC) [Entitic vol] 95 fL Normal 80 - 100 [facility] Comment on above: Performed By: #### C BC ####[id number] [place] [address] Nucleated RBC/100 WBC (Bld) [Ratio] 0.0 /100 WBC Normal 0.0-0.0 [facility] Comment on above: Performed By: #### C BC ####[id number] [place] [address] Platelets (Bld) [#/Vol] 176 10*3/uL Normal 150 - 450 [facility] Comment on above: Performed By: #### C BC ####[id number] [place] [address] RBC (Bld) [#/Vol] 3.54 x10E12/L Low 4.50 - 5.90 [facility] Comment on above: Performed By: #### C BC ####[id number] [place] [address] WBC (Bld) [#/Vol] 9.1 10*3/uL Normal 4.4 - 11.3 [facility] Comment on above: Performed By: #### C BC ####[id number] [place] [address] Erythrocyte distribution width (RBC) [Ratio] 14.9 % High 11.5 - 14.5 [facility] Comment on above: Performed By: #### C BC ####[id number] [place] [address] Hematocrit (Bld) [Volume fraction] 30.1 % Low 41.0 - 52.0 [facility] Comment on above: Performed By: #### C BC ####[id number] [place] [address] Hemoglobin (Bld) [Mass/Vol] 9.8 g/dL Low 13.5 - 17.5 [facility] Comment on above: Performed By: #### C BC ####[id number] [place] [address] MCHC (RBC) [Mass/Vol] 32.6 g/dL Normal 32.0 - 36.0 [facility] Comment on above: Performed By: #### C BC ####[id number] [place] [address] MCV (RBC) [Entitic vol] 93 fL Normal 80 - 100 [facility] Comment on above: Performed By: #### C BC ####[id number] [place] [address] Nucleated RBC/100 WBC (Bld) [Ratio] 0.0 /100 WBC Normal 0.0-0.0 [facility] Comment on above: Performed By: #### C BC ####[id number] [place] [address] Platelets (Bld) [#/Vol] 162 10*3/uL Normal 150 - 450 [facility] Comment on above: Performed By: #### C BC ####[id number] [place] [address] RBC (Bld) [#/Vol] 3.25 x10E12/L Low 4.50 - 5.90 [facility] Comment on above: Performed By: #### C BC ####[id number] [place] [address] WBC (Bld) [#/Vol] 8.8 10*3/uL Normal 4.4 - 11.3 [facility] Comment on above: Performed By: #### C BC ####[id number] [place] [address] COAGULATION SCREENon 019 aPTT Coag (Bld) [Time] 29 s Normal 28 - 38 [facility] Comment on above: Result Comment: Note new reference range as of 01/17/2018. THE APTT IS NO LONGER USED FOR MONITORING UNFRACTIONATED HEPARIN THERAPY. FOR MONITORING HEPARIN THERAPY, USE THE HEPARIN ASSAY. Performed By: #### C OAGS ####[id number] [place] [address] INR Coag (PPP) [Relative time] 1.0 {INR} Normal 0.9 - 1.1 [facility] Comment on above: Performed By: #### C OAGS ####[id number] [place] [address] PT Coag (PPP) [Time] 11.2 s Normal 9.7 - 12.7 [facility] Comment on above: Result Comment: Note new reference range as of 01/17/2018. Performed By: #### C OAGS ####[id number] [place] [address] Daily Progress Note - Critic al Care[facility] Service: Critical Care Service: [facility] Subjective Data: ID Statement: ADEN PATEL is a 67 year old Male who is Hospital Day # 8 and ICU Day #5 and POD #3 for Exploratory laparotomy, evacuation hematoma, omentectomy, abthera wound vac. No acute events overnight. Received labetalol and hydralazine for hypertenion. Objective Data: Objective Information T PRBPSpO2 [id number]/6599% Date/Time04/20: 6: 6: 19: 6:00 Range(37.1C - 37.6C ) (68 - 89 ) (11 - 22 ) (145 - 145 )/ (65 - 65 ) (94% - 99% ) As of 20-Apr-2018 04:00:00, patient is on 5 L/min of oxygen via nasal cannula. Highest temp of 37.6 C was recorded at 04/19 12:00 Pain reported at 04/19 16:00: 0 Pain reported at 04/20 4:00: 0 Direct Arterial Blood Pressure Oxrpcxnn553(139 - 195)04/20 6:00 Diastolic (mm Hg)74(61 - 91)04/20 6:00 Mean (mm Hg)102(83 - 123)04/20 6:00 Pulse Pressure (mm Hg)95(78 - 119)04/20 6:00 ---- Intake and Output ----- [facility] 20, 2018 6:00 [id number] Apr 19, 2018 10:00 [phone] Apr 19, 2018 2:00 [phone] The Intake and Output Totals for the last 24 hours are: [facility] [id number] Drain and tube details (included in I&O totals) 3840 cc Indwelling Catheter - Urethral( 20-Apr-2018 06:00:00 ) Physical Exam: Physical Exam: Neurological: alert and oriented x3, intact senses, motor, response and reflexes, normal strength Cardiovascular: Regular, rate and rhythm, no murmurs, 2+ equal pulses of the extremities, normal S 1and S 2 Respiratory/Thorax: Patent airways, CTAB, normal breath sounds with good chest expansion, thorax symmetric Gastrointestinal: distended, tender, hypoactive bowel sounds, wound vac in place holding suction clean, dry, intact, no surrounding hematoma Skin: warm dry, diaphoretic Musculoskeletal: moves upper, and lower extremities Constitutional: Well developed, awake/alert/oriented x3, no distress, alert and cooperative Eyes: pupils equal ENMT: mucous membranes moist, no apparent injury, no lesions seen Head/Neck: NC/AT Extremities: trace lower extremity edema, no cyanosis Psychological: unable to evaluate Allergies: Allergies: No Known Allergies: Medications: Medications: CARDIOVASCULAR AGENTS: 1. Labetalol Injectable: 20 mg IntraVenous Push Once 2. hydrALAZINE (APRESOLINE) Injectable: 20 mg IntraVenous Push Every 6 Hours PRN 3. Norepinephrine 8 mg/ D5W 250 mL Infusion: 0.01 mcg/kg/min IntraVenous CENTRAL NERVOUS SYSTEM AGENTS: 1. Acetaminophen: 650 mg Oral Every 6 Hours 2. HYDROmorphone Injectable: 0.2 mg IntraVenous Push Every 2 Hours PRN 3. HYDROmorphone Injectable: 0.4 mg IntraVenous Push Every 2 Hours PRN 4. Ondansetron Injectable: 4 mg IntraVenous Push Every 6 Hours PRN 5. Propofol 10 mg/mL Infusion: 5 mcg/kg/min IntraVenous GASTROINTESTINAL AGENTS: 1. Pantoprazole Injectable: 40 mg IntraVenous Push Every 12 Hours METABOLIC AGENTS: 1. Insulin Lispro Customizable Corrective Scale: unit(s) SubCutaneous Every 4 Hours 2. Dextrose 50% in Water Injectable: 25 gram(s) IntraVenous Push Every 15 Minutes PRN 3. Glucagon Injectable: 1 mg IntraMuscular Every 15 Minutes PRN MISCELLANEOUS AGENTS: 1. Nicotine 21 mg/ 24 hour TransDermal: 1 patch TransDermal Every 24 Hours NUTRITIONAL PRODUCTS: 1. PLASMA-LYTE Infusion: 1000 mL IntraVenous 2. PLASMA-LYTE IV Bolus: 1000 mL IntraVenous Piggyback Once 3. Calcium Chloride IVPB: 0.5 gram(s) IntraVenous Piggyback Every 8 Hours PRN 4. Calcium Chloride IVPB: 1 gram(s) IntraVenous Piggyback Every 8 Hours PRN 5. Magnesium Sulfate 2 gram/Sterile Water 50 mL Premix Soln: 2 gram(s) IntraVenous Piggyback Every 6 Hours PRN 6. Magnesium Sulfate 4 gram/Sterile Water 100 mL Premix Soln: 4 gram(s) IntraVenous Piggyback Every 6 Hours PRN P: 1. Albumin 5% IV Bolus: 25 gram(s) IntraVenous Piggyback Once 2. Albumin 5% IV Bolus: 25 gram(s) IntraVenous Piggyback Once 3. Albumin 5% IV Bolus: 25 gram(s) IntraVenous Piggyback Once RADIOLOGIC AGENTS: 1. Gastrografin 15 mL - No Flavoring - in 450 mL Clear Fluid (Pre-Exam): 1 dose(s) Oral Once Currently Suspended Medications --- 1. Metoprolol Tartrate: 100 mg Oral Every 12 Hours 2. Gabapentin: 300 mg Oral 3 Times a Day Recent Lab Results: Results: CBC: 04/20/2018 03:36 \ Hgb / \ 9.8 L / WBC Plt 8.8 162 / Hct \ / 30.1 L \ RBC: 3.25 L MCV: 93 RFP: 04/20/2018 03:35 NA+ Cl- BUN / 146 H 105 37 H / --- Glucose 66 L K+ HCO3- Creat \ 3.6 27 1.37 H \ Calcium : 7.6 LAnion Gap : 18 Albumin : 2.5 L Phos : 3.0 Coagulation: 04/20/2018 03:37 PT / 11.2 / -------< INR < 1.0 PTT\ 29 \ Recent Arterial Blood Gas Results 04/19/2018 18:05 pO268 pH7.47 cPV505 SO296 Base Excess3.2 Yfohfqlpvxf93.9 Assessment and Plan: Daily Risk Screen: Does patient have a central lineyes Central Line Typeimplanted access ports Plan for implanted access port removal todayno The patient continues to require implanted access port forhemodynamic monitoring Does patient have an indwelling urinary catheteryes Plan for indwelling urinary catheter removal todayno The patient continues to require indwelling urinary catheterization for critically ill patients who need accurate urinary output measurements Is the patient intubatedno Other: Diagnosis: Assessment: 67yo M with PMH of HTN, complicated left sided diverticulitis with perforation previously treated with abx, and perforated appendicitis requiring appendectomy and ileocolic resection at OSH 07/2017 c/b enterocutaneous fistula now s/p ex-lap with takedown of ileocolic anastomosis and fistula take down with redo of ileocolic anastomosis. A small enterovesical fistula was also taken down and primarily repaired as well as a primary ventral hernia repair with placement of subcutaneous MADISON drain on 04/14. Patient transferred to the SICU on 04/16 after a hypotensive episode and patient found to be unresponsive while on the commode. CT A/P with rectal contrast revealed hemoperitoneum and jejunal pneumatosis. Taken to OR 04/17 for ex-lap, evacuation of hematoma, omentectomy, and placement of abthera wound vac. 300mL of clot was evacuated from the omentum, oozing from the abdominal wall, jejunum with some patchy areas of ischemia, anastomosis viable and intact. 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 MONTY, peak Cr 4.70 thus far. Baseline sCr 0.79. 04/18 Uop improving Cr downtrending - Creatinine downtrending 1.37 from 1.55 - MIVF of 75 cc/hr plasmalyte - Continue mir catheter for strict I/Os. 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 CT A/P 04/17 concern for hemoperitoneum and jejunal pneumotosis. Return to OR on 04/17 for Ex-lap, hematoma evacuation. - Plan for return to OR TODAY 04/20 for possible abdomen closure - NPO - Record MADISON drain output and characteristics - PPI prophylaxis HEME: Acute blood loss anemia. 2u pRBCs on 04/16. 3U on 04/17, H/H stable - CBC and coags as clinically indicated - Monitor drain output volume and characteristics - SCDs for DVT prophylaxis. Holding pharmacologic DVT PPx given recent hemoperitoneum ENDO: No history of diabetes. - Goal BG 140-180 - Accuchecks q4h - SSI per SICU protocol ID: Afebrile, no current indication of infection. Surgical prophylaxis - Ancef and Flagyl @ 0810 intra-op Proph: SCDs PPI Lines: L a-line, L IJ triple, L PIV Prophylaxis: PPI SCDs Dispo: SICU purple team care for now Team phone: [phone] Code Status: Code StatusFull Code Comorbidities: Comorbidity: anemia, respiratory failure Anemia: acute blood loss anemia Acuity of Respiratory Failure: acute Additional Respiratory Failure Specificity: with hypoxia Signature/Cosignature/Attesta tion: Critical Care PatientI have reviewed and evaluated the most recent data and results, personally examined the patient, and formulated the plan of care as presented above. This patient was critically ill and required continued critical care treatment. Teaching and any separately billable procedures are not included in the time calculation. Billing Provider Critical Care Time36 minute(s) Primary Critical Care Issue/Treatment (See Assessment and Plan for greater detail)-- For the nature of the critical condition and treatment, this documentation has been prepared by the attending physician/ELIO- billing provider of these critical care services. Electronic Signatures: Davis Del Valle) (Signed 21-Apr-2018 19:09) Authored: Signature/Cosignature/Attesta tion Co-Signer: Service, Subjective Data, Objective Data, Assessment and Plan Matthew Joaquin (Resident)) (Signed 20-Apr-2018 12:29) Authored: Service, Subjective Data, Objective Data, Assessment and Plan Last Updated: 21-Apr-2018 19:09 by Davis Del Valle) [facility] Daily Progress Note-Colorect al Surgeryon 04-20-2018 Daily Progress Note-Colorectal Surgery Service: Colorectal Surgery Subjective Data: ADEN PATEL is a 67 year old Male who is Hospital Day # 8 and POD #3 for Exploratory laparotomy, evacuation hematoma, omentectomy, abthera wound vac. Extubated yesterday. Feels ok, would like to drink. H/H has remained stable. Is making adequate UOP. Had 800 cc from VAC overnight. Objective Data: Objective Information: T PRBPSpO2 [id number]/6596% Date/Time04/20 8: 9: 9: 19: 9:00 Range(37.1C - 37.6C ) (68 - 89 ) (12 - 22 ) (145 - 145 )/ (65 - 65 ) (93% - 99% ) As of 20-Apr-2018 08:00:00, patient is on 6 L/min of oxygen via nasal cannula with humidification. Highest temp of 37.6 C was recorded at 04/19 12:00 ---- Intake and Output ----- Mn/Dy/Year [facility]Out[facility] Apr 20, 2018 6:00 [id number] Apr 19, 2018 10:00 [phone] Apr 19, 2018 2:00 [id number] The Intake and Output Totals for the last 24 hours are: IntakeOutputNet [id number] Intake Output IV Fluids 2000 mL Urine 3840 mL Medicated IV Drips 182 mL GI 350 mL Drain 650 mL Physical Exam: Constitutional: Well developed, awake/alert/oriented x3, no distress, alert and cooperative Eyes: EOMI, clear sclera Head/Neck: Left central line in place Respiratory/Thorax: Nonlabored breathing on 6L NC Cardiovascular: Regular rate Gastrointestinal: Nondistended, soft, abthera in place, VAC with sanguinous output. Genitourinary: Mir with clear yellow urine Extremities: MCKEON x 4 Neurological: alert and oriented x3 Psychological: Appropriate mood and behavior Medication: Medications: Continuous Medications --- 1. Norepinephrine 8 mg/ D5W 250 mL Infusion: 0.01 mcg/kg/min IntraVenous 2. PLASMA-LYTE Infusion: 1000 mL IntraVenous 3. Propofol 10 mg/mL Infusion: 5 mcg/kg/min IntraVenous Scheduled Medications --- 1. Acetaminophen: 650 mg Oral Every 6 Hours 2. Albumin 5% IV Bolus: 25 gram(s) IntraVenous Piggyback Once 3. Albumin 5% IV Bolus: 25 gram(s) IntraVenous Piggyback Once 4. Albumin 5% IV Bolus: 25 gram(s) IntraVenous Piggyback Once 5. hydrALAZINE (APRESOLINE) Injectable: 20 mg IntraVenous Push Once 6. Insulin Lispro Customizable Corrective Scale: unit(s) SubCutaneous Every 4 Hours 7. Nicotine 21 mg/ 24 hour TransDermal: 1 patch TransDermal Every 24 Hours 8. Pantoprazole Injectable: 40 mg IntraVenous Push Every 12 Hours 9. PLASMA-LYTE IV Bolus: 1000 mL IntraVenous Piggyback Once PRN Medications --- 1. Calcium Chloride IVPB: 0.5 gram(s) IntraVenous Piggyback Every 8 Hours 2. Calcium Chloride IVPB: 1 gram(s) IntraVenous Piggyback Every 8 Hours 3. Dextrose 50% in Water Injectable: 25 gram(s) IntraVenous Push Every 15 Minutes 4. Glucagon Injectable: 1 mg IntraMuscular Every 15 Minutes 5. hydrALAZINE (APRESOLINE) Injectable: 20 mg IntraVenous Push Every 6 Hours 6. HYDROmorphone Injectable: 0.2 mg IntraVenous Push Every 2 Hours 7. HYDROmorphone Injectable: 0.4 mg IntraVenous Push Every 2 Hours 8. Magnesium Sulfate 2 gram/Sterile Water 50 mL Premix Soln: 2 gram(s) IntraVenous Piggyback Every 6 Hours 9. Magnesium Sulfate 4 gram/Sterile Water 100 mL Premix Soln: 4 gram(s) IntraVenous Piggyback Every 6 Hours 10. Ondansetron Injectable: 4 mg IntraVenous Push Every 6 Hours Currently Suspended Medications --- 1. Gabapentin: 300 mg Oral 3 Times a Day 2. Metoprolol Tartrate: 100 mg Oral Every 12 Hours Recent Lab Results: Results: I have reviewed these laboratory results: Glucose_POCT Trending View [id number] 09:19:00 20-Apr-2018 08:09:00 Glucose-[id number] H 75 Coagulation Screen 20-Apr-2018 03:37:00 ResultValue Prothrombin Time, Plasma 11.2 International Normalized Ratio, Plasma 1.0 Activated Partial Thromboplastin Time 29 Complete Blood Count 20-Apr-2018 03:36:00 ResultValue White Blood Cell Count 8.8 Nucleated Erythrocyte Count 0.0 Red Blood Cell Count 3.25 L HGB 9.8 L HCT 30.1 L MCV 93 MCHC 32.6 PLT 162 RDW-CV 14.9 H Renal Function Panel 20-Apr-2018 03:35:00 ResultValue Glucose, Serum 66 L NA 146 H K 3.6 CL 105 Bicarbonate, Serum 27 Anion Gap, Serum 18 BUN 37 H CREAT 1.37 H GFR-Non 52 A GFR- 63 Calcium, Serum 7.6 L Phosphorus, Serum 3.0 ALB 2.5 L Magnesium, Serum 24-Mar-2018 03:35:00 ResultValue Magnesium, Serum 1.98 Radiology Results: Results: Impression: 1. Perihilar edema with basilar atelectasis and effusion. No pneumothorax. Xray Chest 1 View [Apr 19 2018 2:05PM] Assessment and Plan: Assessment: 67yo M with Hx perforated appendicitis requiring appendectomy and ileocolic resection at OSH 07/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 On 04/14/18 he underwent ex lap with takedown of ileocolic anastomosis and fistula takedwon with redo of ileocolic anastomosis, and was also found to have small enterovesical fistula that was taken down and primarily repaired and primary ventral hernia repair with placement of subcutaneous MADISON drain. On 04/16/2018 (POD2) patient lost consciousness while on the commode and was bleeding from his abdominal wound. On exam, dark venous blood was evacuating from the inferior aspect of his abdominal incision. Initially he was unresponsive, however, he spontaneously regained consciousness and began following commands and responding to verbal cues. He had a pulse throughout the event, his SBP was in the 80s, and he was maintaining his saturations. Pressure was held on the abdominal incision, fluid bolus was started, and patient was transferred to the SICU. Patient was taken to the OR on 04/17/18 for ex-lap, evacuation of hematoma, omentectomy, abthera wound vac and was brought back to ICU intubated with open abdomen. Extubated on 04/19/18. Plan: - Appreciate ICU care - Strict bedrest - Monitor VAC output - MONTY resolving - Plan for OR today for second look and possible closure- could not go yesterday due to OR unavailability - Please call with any issues or changes Patient discussed with attending surgeon Dr. Colmenares. Marquez Bronson General Surgery, PGY-2 [place] [id number] Signature/Cosignature/Attesta tion: Attending AttestationI saw and evaluated the patient. I personally obtained the thibodeaux and critical portions of the history and physical exam or was physically present for thibodeaux and critical portions performed by the resident/fellow. I reviewed the resident/fellows documentation and discussed the patient with the resident/fellow. I agree with the resident/fellows medical decision making as documented in the residents note. I personally evaluated the patient (as noted in the above attestation) on 20-Apr-2018 Electronic Signatures: Marquez Bronson (Resident)) (Signed 20-Apr-2018 09:33) Authored: Service, Subjective Data, Objective Data, Assessment and Plan, Signature/Cosignature/Attesta tion Nolvia Colmenares) (Signed 22-Apr-2018 16:12) Authored: Signature/Cosignature/Attesta tion Co-Signer: Service, Subjective Data, Objective Data, Assessment and Plan, Signature/Cosignature/Attesta tion Last Updated: 22-Apr-2018 16:12 by Nolvia Colmenares) Normal [facility] GLUCOSE-POCTon 04-20-2018 Glucose [Mass/Vol] 111 mg/dL High 74 - 99 [facility] Comment on above: Performed By: #### G VAISHALI ####[id number] [place] [address] Glucose [Mass/Vol] 98 mg/dL Normal 74 - 99 [facility] Comment on above: Performed By: #### G VAISHALI ####[id number] [place] [address] Glucose [Mass/Vol] 128 mg/dL High 74 - 99 [facility] Comment on above: Performed By: #### G VAISHALI ####[id number] [place] [address] Glucose [Mass/Vol] 75 mg/dL Normal 74 - 99 [facility] Comment on above: Performed By: #### G VAISHALI ####[id number] [place] [address] Glucose [Mass/Vol] 81 mg/dL Normal 74 - 99 [facility] Comment on above: Performed By: #### G VAISHALI ####[id number] [place] [address] Glucose [Mass/Vol] 74 mg/dL Normal 74 - 99 [facility] Comment on above: Performed By: #### G VAISHALI ####[id number] [place] [address] History and Physical - Surgi vasiliy Update < 30 dayson 04-20-2018 History and Physical - Surgical Update < 30 days History & Physical Reviewed: I have reviewed the History and Physical dated: 20-Apr-2018 History and Physical reviewed and relevant findings noted. Patient examined to review pertinent physical findings.: No significant changes Home Medications Reviewed: no changes noted Allergies Reviewed: no changes noted This patient has been seen and discussed with the attending physician responsible for performing the procedure: yes Signatures/Attestation/Certif ication: Attending AttestationI saw and evaluated the patient. I personally obtained the thibodeaux and critical portions of the history and physical exam or was physically present for thibodeaux and critical portions performed by the resident/fellow. I reviewed the resident/fellows documentation and discussed the patient with the resident/fellow. I agree with the resident/fellows medical decision making as documented in the residents note. I personally evaluated the patient (as noted in the above attestation) on 20-Apr-2018 Attending Provider Inpatient Certification StatementI certify this patients need for inpatient care based on the above documentation including; the order to admit as inpatient, the anticipated length of stay, diagnosis, problem list and plan of care, and discharge plan. Electronic Signatures: Nolvia Colmenares) (Signed 22-Apr-2018 16:13) Authored: Signatures/Attestation/Certif ication Co-Signer: History & Physical Reviewed, Signatures/Attestation/Certif ication López Blake (Fellow)) (Signed 20-Apr-2018 11:56) Authored: History & Physical Reviewed, Signatures/Attestation/Certif ication Last Updated: 22-Apr-2018 16:13 by Nolvia Colmenares) Normal [facility] MAGNESIUMon 04-20-2018 Magnesium [Mass/Vol] 1.94 mg/dL Normal 1.60 - 2.40 [facility] Comment on above: Performed By: #### M G ####[id number] [place] [address] Magnesium [Mass/Vol] 1.98 mg/dL Normal 1.60 - 2.40 [facility] Comment on above: Performed By: #### M G ####[id number] [facility] [address] OPERATIVE REPORTon 9 OPERATIVE REPORT [facility] [id number] [place] [id number] Patient Name: ADEN PATEL : 1950 Date of Service: 04/20/2018 Patient Location: [place] [address] [id number] Patient Type: I Surgeon: Nolvia Colmenares MD Report Type: Operative Reports PREOPERATIVE DIAGNOSIS: Ischemic small bowel and open abdomen. 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 OPERATION/PROCEDURE: 1. Exploratory laparotomy. 2. Small bowel resection. 3. Placement of ABThera wound VAC. SURGEON: Nolvia Colmenares MD DIRECTOR GLOBAL SALES(S): López Blake MD ANESTHESIA: General endotracheal. 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 The patient's postoperative course was complicated by intraabdominal hemorrhage and small-bowel ischemia, for which he was returned to the operating room on April 17 and has been managed with an open abdomen since. The patient is brought to the operating room today for re-exploration. TECHNIQUE: The patient was brought to the operating room and was placed on the operating table in the supine position. After induction of general endotracheal anesthesia, the skin of the abdomen was prepped and draped in usual sterile fashion. Surgical time-out was performed. The ABThera device was removed, and the abdomen was explored. There was a single area of full-thickness necrosis, which had developed in the mid small bowel. The area of necrosis measured approximately 3 x 3 cm. The remainder of the surrounding small bowel was mildly ischemic, but there were no other areas of full-thickness necrosis. This area had not perforated, and there was no intraabdominal contamination. The short segment of necrotic small bowel was resected with a firing of the TAN 80 mm stapler, both proximally and distally, and then, the mesentery was divided, and the vessels were ligated with chromic ties. The specimen was sent to Pathology. Given the continuing ischemia of the small bowel, decision was made to continue to manage the patient with an open abdomen with plans for re-exploration in 3 to 4 days in order to give time for further demarcation of the areas of ischemia. Therefore, the ABThera wound VAC device was reapplied after sponge and instrument counts had been confirmed as correct, and the patient was returned to the surgical intensive care unit in serious condition. ESTIMATED BLOOD LOSS: 5 cc. SPECIMEN: Jejunal segment. DRAINS: None. COMPLICATIONS: None. Dr. Colmenares was the operating surgeon, who performed the entire procedure as described above. Dr. Blake was the surgical services asst. Nolvia Colmenares MD EST TT: 05/04/2018 01:56 AM EST DICTATION NUMBER: [id number] SPHERIS JOB NUMBER: [id number] CC: Quentin Williamcheng, [id number] Electronically Signed by Dr. Nolvia Colmenares 05/16/2018 09:03:06 AM Normal [facility] Preop Checkliston 04-20-2018 Preop Checklist Preop Checklist: Preop Checklist: Arrival [id number] Arrival Time10:55 Procedure Typebowel procedure NPO [id number] 23:00 NPO Commentr nares ng to low int sxn ID Band Onyes Allergy Bandno known allergies Consent Signedyes H&P Completepending Anesthesia Assessment Completedpending EKG Performedsee results tab Chest X-Ray Performedsee results tab SCD's Appliedsent to OR Cardiovascular Assessment: Apicalregular occas pvc Radial Pulsespalpable Central Venous Access Devicecentral line Respiratory Assessment: Respirationsunlabored Air Exchangeequal Breath Soundsclear Neurological Assessment: Level of Consciousnessalert, oriented Mobilitymoves all extremities Able to Express Selfyes Age Appropriateyes Emotional Statuscalm Preop Education: Surgical Site Infection Preventionyes Pain Scales and Managementyes Commentsother - mir in place Language / Communication: Language / CommunicationEnglish Electronic Signatures: Ruth Davila (GORDON) (Signed 20-Apr-2018 11:12) Authored: Preop Checklist Last Updated: 20-Apr-2018 11:12 by Ruth Davila (GORDON) Normal [facility] RENAL FUNCTION PANELon 04-20 Albumin [Mass/Vol] 2.9 g/dL Low 3.4 - 5.0 [facility] Comment on above: Performed By: #### R ENAL ####[id number] [place] [address] Anion gap [Moles/Vol] 17 mmol/L Normal 10 - 20 [facility] Comment on above: Performed By: #### R ENAL ####[id number] [place] [address] Calcium [Mass/Vol] 7.8 mg/dL Low 8.6 - 10.6 [facility] Comment on above: Performed By: #### R ENAL ####[id number] [place] [address] Chloride [Moles/Vol] 105 mmol/L Normal 98 - 107 [facility] Comment on above: Performed By: #### R ENAL ####[id number] [place] [address] Creatinine [Mass/Vol] 1.10 mg/dL Normal 0.50 - 1.30 [facility] Comment on above: Performed By: #### R ENAL ####[id number] [place] [address] GFR- AM. >60 Normal >60 [facility] Comment on above: Result Comment: CALC ULATIONS OF ESTIMATED GFR ARE PERFORMED USING THE MDRD STUDY EQUATION FOR THE IDMS-TRACEABLE CREATININE METHODS. CLIN CHEM 2007;53:766-72 Performed By: #### R ENAL ####[id number] [place] [address] GFR-NON AM. >60 Normal >60 [facility] Comment on above: Performed By: #### R ENAL ####[id number] [place] [address] Glucose [Mass/Vol] 112 mg/dL High 74 - 99 [facility] Comment on above: Performed By: #### R ENAL ####[id number] [place] [address] HCO3 (Bld) [Moles/Vol] 30 mmol/L Normal 21 - 32 [facility] Comment on above: Performed By: #### R ENAL ####[id number] [place] [address] Phosphate [Mass/Vol] 3.2 mg/dL Normal 2.5 - 4.9 [facility] Comment on above: Result Comment: The performance characteristics of phosphorus testing in heparinized plasma have been validated by the individual laboratory site where testing is performed. Testing on heparinized plasma is not approved by the FDA; however, such approval is not necessary. Performed By: #### R ENAL ####[id number] [place] [address] Potassium [Moles/Vol] 3.5 mmol/L Normal 3.5 - 5.3 [facility] Comment on above: Performed By: #### R ENAL ####[id number] [place] [address] Sodium [Moles/Vol] 148 mmol/L High 136 - 145 [facility] Comment on above: Performed By: #### R ENAL ####[id number] [place] [address] Urea nitrogen [Mass/Vol] 30 mg/dL High 6 - 23 [facility] Comment on above: Performed By: #### R ENAL ####[id number] [place] [address] Albumin [Mass/Vol] 2.5 g/dL Low 3.4 - 5.0 [facility] Comment on above: Performed By: #### R ENAL ####[id number] [place] [address] Anion gap [Moles/Vol] 18 mmol/L Normal 10 - 20 [facility] Comment on above: Performed By: #### R ENAL ####[id number] [place] [address] Calcium [Mass/Vol] 7.6 mg/dL Low 8.6 - 10.6 [facility] Comment on above: Performed By: #### R ENAL ####[id number] [place] [address] Chloride [Moles/Vol] 105 mmol/L Normal 98 - 107 [facility] Comment on above: Performed By: #### R ENAL ####[id number] [place] [address] Creatinine [Mass/Vol] 1.37 mg/dL High 0.50 - 1.30 [facility] Comment on above: Performed By: #### R ENAL ####[id number] [place] [address] GFR- AM. 63 mL/min/1.73m2 Normal >60 [facility] Comment on above: Result Comment: CALC ULATIONS OF ESTIMATED GFR ARE PERFORMED USING THE MDRD STUDY EQUATION FOR THE IDMS-TRACEABLE CREATININE METHODS. CLIN CHEM 2007;53:766-72 Performed By: #### R ENAL ####[id number] [place] [address] GFR-NON AM. 52 mL/min/1.73m2 Abnormal >60 [facility] Comment on above: Performed By: #### R ENAL ####[id number] [place] [address] Glucose [Mass/Vol] 66 mg/dL Low 74 - 99 [facility] Comment on above: Performed By: #### R ENAL ####[id number] [place] [address] HCO3 (Bld) [Moles/Vol] 27 mmol/L Normal 21 - 32 [facility] Comment on above: Performed By: #### R ENAL ####[id number] [place] [address] Phosphate [Mass/Vol] 3.0 mg/dL Normal 2.5 - 4.9 [facility] Comment on above: Result Comment: The performance characteristics of phosphorus testing in heparinized plasma have been validated by the individual laboratory site where testing is performed. Testing on heparinized plasma is not approved by the FDA; however, such approval is not necessary. Performed By: #### R ENAL ####[id number] [place] [address] Potassium [Moles/Vol] 3.6 mmol/L Normal 3.5 - 5.3 [facility] Comment on above: Result Comment: MILD HEMOLYSIS DETECTED. The result may be falsely elevated due to hemolysis or other interferents. Clinical correlation is recommended. Repeat testing may be considered. Performed By: #### R ENAL ####[id number] [place] [address] Sodium [Moles/Vol] 146 mmol/L High 136 - 145 [facility] Comment on above: Performed By: #### R ENAL ####[id number] [place] [address] Urea nitrogen [Mass/Vol] 37 mg/dL High 6 - 23 [facility] Comment on above: Performed By: #### R ENAL ####[id number] [place] [address] TH CHEST 1 VIEWon 04-20-2018 TH CHEST 1 VIEW Patient Name: ADEN PATEL STUDY: TH CHEST 1 VIEW; 04/20/2018 7:14 am INDICATION: Signs/Symptoms: AM rounds. COMPARISON: 04/19/2018 ACCESSION NUMBER(S): [id number] ORDERING CLINICIAN: CLARA PADGETT FINDINGS: Patient has been extubated. CARDIOMEDIASTINAL SILHOUETTE: Cardiomediastinal silhouette is normal in size and configuration. LUNGS: Bibasilar atelectasis and effusions. No pneumothorax. No significant interval change. ABDOMEN: No remarkable upper abdominal findings. BONES: No acute osseous changes. IMPRESSION: 1. No significant change in bibasilar atelectasis and effusions status post extubation. Electronically signed by: Mason SHIELDS MD Normal [facility] TYPE + SCREENon 04-20-2018 ABO TYPE A Normal [facility] Comment on above: Performed By: #### T +S ####[id number] [place] [address] RH TYPE Positive Normal [facility] Comment on above: Performed By: #### T +S ####[id number] [place] [address] [facility] Surgical Pathology Depar tmenton 04-20-2018 [facility] Surgical Pathology Department Name ADEN PATEL Pathologist: MONO DUMONT MD Date of Procedure: 04/20/2018 Date Received: 04/20/2018 Date Reported 04/25/2018 Submitting Physician: NOLVIA COLMENARES MD Location: [facility] Other External # FINAL DIAGNOSIS A. SMALL BOWEL, PARTIAL RESECTION: --SMALL BOWEL MUCOSA WITH EXTENSIVE ISCHEMIC NECROSIS AND PATCHY TRANSMURAL INVOLVEMENT. The gross and/or microscopic findings were reviewed in conjunction with pathology resident, Adan Mahan DO. Electronically Signed Out By MONO DUMONT MD/BLAKE By the signature on this report, the individual or group listed as making the Final Interpretation/Diagnosis certifies that they have reviewed this case. Clinical History: ischemic bowel Specimens Submitted As: A: SMALL BOWEL Gross Description: Received in formalin, labeled with the patient's name and hospital number and small bowel , are 2 un-oriented segments of small bowel, arbitrarily designated #1 and #2. The #1 segment measures 10 cm in length, and 2.5 cm in diameter. The #2 segment measures 30 cm in length, and 2.8 cm in diameter. There is attached mesentery and fibrofatty tissue adhesed upon it self. The serosal surface is diffusely ischemic and demonstrates fibrinous exudate. The margins of the specimen appear viable. No gross lesions are identified. The bowel wall measures 0.2 cm in greatest thickness and is diffusely ischemic. The mucosal surface is diffusely hyperemic. Mucosal polyps are not present. Upon sectioning of the mesentery and fibrofatty tissue, thrombi or lymph nodes are not identified. [employer] Traffic [employer] Manager sections are submitted in 6 cassettes. DJO Summary of Cassettes: Specimen Label Site A 1 #1 segment perpendicular sections of margins, ink at margin 2 #1 segment 3 #2 segment perpendicular sections of margins, ink at margin 4-6 #2 segment djo/04/21/2018 Normal [facility] Comment on above: Performed By: #### U HCS ####[facility] Surgical Pathology [id number] [facility] [address] ARTERIAL FULL PANELon 2018 Anion gap [Moles/Vol] 10 mmol/L Normal - 25 [facility] Comment on above: Order Comment: CHUYITA PETERS CALLED TO AMINATA PAVON, 04/19/2018 18:38 Performed By: #### A FPA3 ####[id number] [place] [address] BASE EXCESS-BLOOD 3.2 mmol/L High -2.0 - 3.0 [facility] Comment on above: Order Comment: CHUYITA PETERS CALLED TO AMINATALUPILLO OLGUINAIN RB., 04/19/2018 18:38 Performed By: #### A FPA3 ####[id number] [place] [address] CALCIUM,IONIZED 1.10 mmol/L Normal 1.10 - 1.33 [facility] Comment on above: Order Comment: CHUYITA PETERS CALLED TO AMINATA ANTHONY RB., 04/19/2018 18:38 Performed By: #### A FPA3 ####[id number] [place] [address] Chloride [Moles/Vol] 106 mmol/L Normal 98 - 107 [facility] Comment on above: Order Comment: CHUYITA PETERS CALLED TO AMINATALUPILLO OLGUINAIN RB., 04/19/2018 18:38 Performed By: #### A FPA3 ####[id number] [place] [address] Glucose [Mass/Vol] 70 mg/dL Low 74 - 99 [facility] Comment on above: Order Comment: CHUYITA PETERS CALLED TO AMINATALUPILLO OLGUINAIN RB., 04/19/2018 18:38 Performed By: #### A FPA3 ####[id number] [place] [address] Hematocrit (Bld) [Volume fraction] 40.0 % Low 41.0 - 52.0 [facility] Comment on above: Order Comment: CHUYITA PETERS CALLED TO AMINATALUPILLO OLGUINAIN RB., 04/19/2018 18:38 Performed By: #### A FPA3 ####[id number] [place] [address] HGB,CALCULATED 13.6 g/dL Normal 13.5 - 17.5 [facility] Comment on above: Order Comment: CHUYITA PETERS CALLED TO AMINATALUPILLO OLGUINAIN RB., 04/19/2018 18:38 Performed By: #### A FPA3 ####[id number] [place] [address] Lactate [Moles/Vol] 0.8 mmol/L Normal 0.4 - 2.0 [facility] Comment on above: Order Comment: CHUYITA PETERS CALLED TO AMINATA ANTHONY RB., 04/19/2018 18:38 Performed By: #### A FPA3 ####[id number] [place] [address] Oxygen (Bld) [Partial pressure] 68 mm[Hg] Low 85 - 95 [facility] Comment on above: Order Comment: CHUYITA PETERS CALLED TO AMINATA ANTHONY RB., 04/19/2018 18:38 Performed By: #### A FPA3 ####[id number] [place] [address] PCO2 37 mmHg Low 38 - 42 [facility] Comment on above: Order Comment: CHUYITA PETERS CALLED TO AMINATA ANTHONY RB., 04/19/2018 18:38 Performed By: #### A FPA3 ####[id number] [place] [address] pH (Bld) 7.47 [pH] High 7.38 - 7.42 [facility] Comment on above: Order Comment: CHUYITA PETERS CALLED TO AMINATA ANTHONY RB., 04/19/2018 18:38 Performed By: #### A FPA3 ####[id number] [place] [address] Potassium [Moles/Vol] 2.8 mmol/L Critically low 3.5 - 5.3 [facility] Comment on above: Order Comment: CHUYITA PETERS CALLED TO AMINATA ANTHONY RB., 04/19/2018 18:38 Result Comment: CHUYITA PETERS CALLED TO AMINATA ANTHONY RB., 04/19/2018 18:38 Performed By: #### A FPA3 ####[id number] [place] [address] RBC (Bld) [#/Vol] 26.9 mmol/L High 22.0 - 26.0 [facility] Comment on above: Order Comment: CHUYITA PETERS CALLED TO AMINATA ANTHONY RB., 04/19/2018 18:38 Performed By: #### A FPA3 ####[id number] [place] [address] SO2 96 % Normal 94 - 100 [facility] Comment on above: Order Comment: CRIDolly PETERS CALLED TO AMINATA CRUZ RB., 04/19/2018 18:38 Performed By: #### A FPA3 ####[id number] [place] [address] Sodium [Moles/Vol] 140 mmol/L Normal 136 - 145 [facility] Comment on above: Order Comment: CRIDolly PETERS CALLED TO AMINATA CRUZ RB., 04/19/2018 18:38 Performed By: #### A FPA3 ####[id number] [place] [address] Anion gap [Moles/Vol] 7 mmol/L Low 10 - 25 [facility] Comment on above: Order Comment: CRIT HGBNC CALLED RB TO CLARA PADGETT, 04/19/2018 04:00 Performed By: #### A FPA3 ####[id number] [place] [address] BASE EXCESS-BLOOD 7.6 mmol/L High -2.0 - 3.0 [facility] Comment on above: Order Comment: CRIT HGBNC CALLED RB TO CLARA PADGETT, 04/19/2018 04:00 Performed By: #### A FPA3 ####[id number] [place] [address] CALCIUM,IONIZED 1.13 mmol/L Normal 1.10 - 1.33 [facility] Comment on above: Order Comment: CRIT HGBNC CALLED RB TO CLARA PADGETT, 04/19/2018 04:00 Performed By: #### A FPA3 ####[id number] [place] [address] Chloride [Moles/Vol] 103 mmol/L Normal 98 - 107 [facility] Comment on above: Order Comment: CRIT HGBNC CALLED RB TO CLARA PADGETT, 04/19/2018 04:00 Performed By: #### A FPA3 ####[id number] [place] [address] Glucose [Mass/Vol] 73 mg/dL Low 74 - 99 [facility] Comment on above: Order Comment: CRIT HGBNC CALLED RB TO CLARA PADGETT, 04/19/2018 04:00 Performed By: #### A FPA3 ####[id number] [place] [address] Hematocrit (Bld) [Volume fraction] 17.0 % Low 41.0 - 52.0 [facility] Comment on above: Order Comment: CRIT HGBNC CALLED RB TO CLARA PADGETT, 04/19/2018 04:00 Performed By: #### A FPA3 ####[id number] [place] [address] HGB,CALCULATED 5.8 g/dL Critically low 13.5 - 17.5 [facility] Comment on above: Order Comment: CRIT HGBNC CALLED RB TO CLARA PADGETT, 04/19/2018 04:00 Result Comment: CRIT HGBNC CALLED RB TO CLARA PADGETT, 04/19/2018 04:00 Performed By: #### A FPA3 ####[id number] [place] [address] Lactate [Moles/Vol] 0.8 mmol/L Normal 0.4 - 2.0 [facility] Comment on above: Order Comment: CRIT HGBNC CALLED RB TO CLARA PADGETT, 04/19/2018 04:00 Performed By: #### A FPA3 ####[id number] [place] [address] Oxygen (Bld) [Partial pressure] 98 mm[Hg] High 85 - 95 [facility] Comment on above: Order Comment: CRIT HGBNC CALLED RB TO CLARA PADGETT, 04/19/2018 04:00 Performed By: #### A FPA3 ####[id number] [place] [address] PCO2 44 mmHg High 38 - 42 [facility] Comment on above: Order Comment: CRIT HGBNC CALLED RB TO CLARA PADGETT, 04/19/2018 04:00 Performed By: #### A FPA3 ####[id number] [place] [address] pH (Bld) 7.47 [pH] High 7.38 - 7.42 [facility] Comment on above: Order Comment: CRIT HGBNC CALLED RB TO CLARA PADGETT, 04/19/2018 04:00 Performed By: #### A FPA3 ####[id number] [place] [address] Potassium [Moles/Vol] 3.2 mmol/L Low 3.5 - 5.3 [facility] Comment on above: Order Comment: CRIT HGBNC CALLED RB TO CLARA PADGETT, 04/19/2018 04:00 Performed By: #### A FPA3 ####[id number] [place] [address] RBC (Bld) [#/Vol] 32.0 mmol/L High 22.0 - 26.0 [facility] Comment on above: Order Comment: CRIT HGBNC CALLED RB TO CLARA PADGETT, 04/19/2018 04:00 Performed By: #### A FPA3 ####[id number] [place] [address] SO2 99 % Normal 94 - 100 [facility] Comment on above: Order Comment: CRIT HGBNC CALLED RB TO CLARA PADGETT, 04/19/2018 04:00 Performed By: #### A FPA3 ####[id number] [place] [address] Sodium [Moles/Vol] 139 mmol/L Normal 136 - 145 [facility] Comment on above: Order Comment: CRIT HGBNC CALLED RB TO CLARA PADGETT, 04/19/2018 04:00 Performed By: #### A FPA3 ####[id number] [place] [address] CALCIUM, IONIZEDon CALCIUM,IONIZED 1.10 mmol/L Normal 1.10 - 1.33 [facility] Comment on above: Result Comment: The performance characteristics of ionized calcium tested in heparinized plasma or serum have been validated by the individual laboratory site where testing is performed. Testing on heparinized plasma or serum is not approved by the FDA; however, such approval is not necessary. Performed By: #### I ONC1 ####[id number] [place] [address] CALCIUM,IONIZED 1.10 mmol/L Normal 1.10 - 1.33 [facility] Comment on above: Result Comment: The performance characteristics of ionized calcium tested in heparinized plasma or serum have been validated by the individual laboratory site where testing is performed. Testing on heparinized plasma or serum is not approved by the FDA; however, such approval is not necessary. Performed By: #### I ONC1 ####[id number] [place] [address] CBCon 04-19-2018 Erythrocyte distribution width (RBC) [Ratio] 14.7 % High 11.5 - 14.5 [facility] Comment on above: Performed By: #### C BC ####[id number] [place] [address] Hematocrit (Bld) [Volume fraction] 25.6 % Low 41.0 - 52.0 [facility] Comment on above: Performed By: #### C BC ####[id number] [place] [address] Hemoglobin (Bld) [Mass/Vol] 9.5 g/dL Low 13.5 - 17.5 [facility] Comment on above: Performed By: #### C BC ####[id number] [place] [address] MCHC (RBC) [Mass/Vol] 37.1 g/dL High 32.0 - 36.0 [facility] Comment on above: Performed By: #### C BC ####[id number] [place] [address] MCV (RBC) [Entitic vol] 84 fL Normal 80 - 100 [facility] Comment on above: Performed By: #### C BC ####[id number] [place] [address] Nucleated RBC/100 WBC (Bld) [Ratio] 0.0 /100 WBC Normal 0.0-0.0 [facility] Comment on above: Performed By: #### C BC ####[id number] [place] [address] Platelets (Bld) [#/Vol] 137 10*3/uL Low 150 - 450 [facility] Comment on above: Performed By: #### C BC ####[id number] [place] [address] RBC (Bld) [#/Vol] 3.05 x10E12/L Low 4.50 - 5.90 [facility] Comment on above: Performed By: #### C BC ####[id number] [place] [address] WBC (Bld) [#/Vol] 8.6 10*3/uL Normal 4.4 - 11.3 [facility] Comment on above: Performed By: #### C BC ####[id number] [place] [address] Erythrocyte distribution width (RBC) [Ratio] 15.2 % High 11.5 - 14.5 [facility] Comment on above: Performed By: #### C BC ####[id number] [place] [address] Hematocrit (Bld) [Volume fraction] 27.5 % Low 41.0 - 52.0 [facility] Comment on above: Performed By: #### C BC ####[id number] [place] [address] Hemoglobin (Bld) [Mass/Vol] 9.6 g/dL Low 13.5 - 17.5 [facility] Comment on above: Performed By: #### C BC ####[id number] [place] [address] MCHC (RBC) [Mass/Vol] 34.9 g/dL Normal 32.0 - 36.0 [facility] Comment on above: Performed By: #### C BC ####[id number] [place] [address] MCV (RBC) [Entitic vol] 88 fL Normal 80 - 100 [facility] Comment on above: Performed By: #### C BC ####[id number] [place] [address] Nucleated RBC/100 WBC (Bld) [Ratio] 0.1 /100 WBC Normal 0.0-0.0 [facility] Comment on above: Performed By: #### C BC ####[id number] [place] [address] Platelets (Bld) [#/Vol] 136 10*3/uL Low 150 - 450 [facility] Comment on above: Performed By: #### C BC ####[id number] [place] [address] RBC (Bld) [#/Vol] 3.13 x10E12/L Low 4.50 - 5.90 [facility] Comment on above: Performed By: #### C BC ####[id number] [place] [address] WBC (Bld) [#/Vol] 8.8 10*3/uL Normal 4.4 - 11.3 [facility] Comment on above: Performed By: #### C BC ####[id number] [place] [address] COAGULATION SCREENon 019 aPTT Coag (Bld) [Time] 30 s Normal 28 - 38 [facility] Comment on above: Result Comment: Note new reference range as of 01/17/2018. THE APTT IS NO LONGER USED FOR MONITORING UNFRACTIONATED HEPARIN THERAPY. FOR MONITORING HEPARIN THERAPY, USE THE HEPARIN ASSAY. Performed By: #### C OAGS ####[id number] [place] [address] INR Coag (PPP) [Relative time] 1.0 {INR} Normal 0.9 - 1.1 [facility] Comment on above: Performed By: #### C OAGS ####[id number] [place] [address] PT Coag (PPP) [Time] 10.7 s Normal 9.7 - 12.7 [facility] Comment on above: Result Comment: Note new reference range as of 01/17/2018. Performed By: #### C OAGS ####[id number] [place] [address] aPTT Coag (Bld) [Time] 31 s Normal 28 - 38 [facility] Comment on above: Result Comment: Note new reference range as of 01/17/2018. THE APTT IS NO LONGER USED FOR MONITORING UNFRACTIONATED HEPARIN THERAPY. FOR MONITORING HEPARIN THERAPY, USE THE HEPARIN ASSAY. Performed By: #### C OAGS ####[id number] [place] [address] INR Coag (PPP) [Relative time] 1.0 {INR} Normal 0.9 - 1.1 [facility] Comment on above: Performed By: #### C OAGS ####[id number] [place] [address] PT Coag (PPP) [Time] 10.7 s Normal 9.7 - 12.7 [facility] Comment on above: Result Comment: Note new reference range as of 01/17/2018. Performed By: #### C OAGS ####[id number] [place] [address] Daily Progress Note - Critic al Care-SICU , [facility] 04-19-2018 Daily Progress Note - Critical Care-SICU [facility] Service: Critical Care Service: ServiceSU [facility] Subjective Data: ID Statement: ADEN PATEL is a 67 year old Male who is Hospital Day # 7 and ICU Day #4 and POD #2 for Exploratory laparotomy, evacuation hematoma, omentectomy, abthera wound vac. no events overnight. Objective Data: Objective Information T PRBPSpO2 Value37.2106447% Date/Time04/19 8: 7: 7: 7:00 Range(36.8C - 37.1C ) (67 - 80 ) (15 - 17 ) (97% - 99% ) As of 19-Apr-2018 04:00:00, patient is on 50% oxygen via ventilator assisted. Highest temp of 37.1 C was recorded at 04/19 8:00 Pain reported at 04/19 6:00: 0 Pain reported at 04/18 20:00: 2 Direct Arterial Blood Pressure [id number](117 - 157)04/19 7:00 Diastolic (mm Hg)67(46 - 68)04/19 7:00 Mean (mm Hg)91(65 - 94)04/19 7:00 Pulse Pressure (mm Hg)83(66 - 98)04/19 7:00 ---- Intake and Output ----- Mn/Dy/Year TimeIntakeOutputNet Apr 19, 2018 6:00 [id number] Apr 18, 2018 10:00 [phone] Apr 18, 2018 2:00 [id number] The Intake and Output Totals for the last 24 hours are: [id number] Drain and tube details (included in I&O totals) 2845 cc Indwelling Catheter - Urethral( 19-Apr-2018 06:00:00 ) Physical Exam: Physical Exam: Neurological: Intubated and sedated, responds to commands Cardiovascular: Regular, rate and rhythm, no murmurs, 2+ equal pulses of the extremities, normal S 1and S 2 Respiratory/Thorax: intubated 7.5 ET at 25, air entry bilaterally, mechanical breath sounds, Gastrointestinal: distended, tender, hypoactive bowel sounds, wound vac in place holding suction clean, dry, intact, no surrounding hematoma Skin: warm dry, diaphoretic Musculoskeletal: sedated, moves upper, and lower extremities Constitutional: Intubated, Sedated, in ICU bed Eyes: pupils equal ENMT: ETT in place, no lesion or trauma Head/Neck: NC/AT Extremities: trace lower extremity edema, no cyanosis Psychological: unable to evaluate Allergies: Allergies: No Known Allergies: Medications: Medications: CARDIOVASCULAR AGENTS: 1. Norepinephrine 8 mg/ D5W 250 mL Infusion: 0.01 mcg/kg/min IntraVenous CENTRAL NERVOUS SYSTEM AGENTS: 1. Acetaminophen: 650 mg Oral Every 6 Hours 2. HYDROmorphone Injectable: 0.2 mg IntraVenous Push Every 2 Hours PRN 3. HYDROmorphone Injectable: 0.4 mg IntraVenous Push Every 2 Hours PRN 4. Ondansetron Injectable: 4 mg IntraVenous Push Every 6 Hours PRN 5. Propofol 10 mg/mL Infusion: 5 mcg/kg/min IntraVenous GASTROINTESTINAL AGENTS: 1. Pantoprazole Injectable: 40 mg IntraVenous Push Every 12 Hours METABOLIC AGENTS: 1. Insulin Lispro Customizable Corrective Scale: unit(s) SubCutaneous Every 4 Hours 2. Dextrose 50% in Water Injectable: 25 gram(s) IntraVenous Push Every 15 Minutes PRN 3. Glucagon Injectable: 1 mg IntraMuscular Every 15 Minutes PRN MISCELLANEOUS AGENTS: 1. Nicotine 21 mg/ 24 hour TransDermal: 1 patch TransDermal Every 24 Hours NUTRITIONAL PRODUCTS: 1. PLASMA-LYTE Infusion: 1000 mL IntraVenous 2. PLASMA-LYTE IV Bolus: 1000 mL IntraVenous Piggyback Once 3. Calcium Chloride IVPB: 0.5 gram(s) IntraVenous Piggyback Every 8 Hours PRN 4. Calcium Chloride IVPB: 1 gram(s) IntraVenous Piggyback Every 8 Hours PRN 5. Magnesium Sulfate 2 gram/Sterile Water 50 mL Premix Soln: 2 gram(s) IntraVenous Piggyback Every 6 Hours PRN 6. Magnesium Sulfate 4 gram/Sterile Water 100 mL Premix Soln: 4 gram(s) IntraVenous Piggyback Every 6 Hours PRN P: 1. Albumin 5% IV Bolus: 25 gram(s) IntraVenous Piggyback Once 2. Albumin 5% IV Bolus: 25 gram(s) IntraVenous Piggyback Once 3. Albumin 5% IV Bolus: 25 gram(s) IntraVenous Piggyback Once RADIOLOGIC AGENTS: 1. Gastrografin 15 mL - No Flavoring - in 450 mL Clear Fluid (Pre-Exam): 1 dose(s) Oral Once Currently Suspended Medications --- 1. Metoprolol Tartrate: 100 mg Oral Every 12 Hours 2. Gabapentin: 300 mg Oral 3 Times a Day Recent Lab Results: Results: CBC: 04/19/2018 03:37 \ Hgb / \ 9.5 L / WBC Plt 8.6 137 L / Hct \ / 25.6 L \ RBC: 3.05 L MCV: 84 RFP: 04/19/2018 05:15 NA+ Cl- BUN / 142 102 46 H / --- Glucose 68 L K+ HCO3- Creat \ 3.6 26 2.32 H \ Calcium : 7.6 LAnion Gap : 18 Albumin : 2.5 L Phos : 3.5 Coagulation: 04/19/2018 03:37 PT / 10.7 / -------< INR < 1.0 PTT\ 30 \ Fibrinogen: 451 H Recent Arterial Blood Gas Results 04/19/2018 03:51 pO298 pH7.47 hDT585 SO299 Base Excess7.6 Mjioqekseuz09.0 Assessment and Plan: Daily Risk Screen: Does patient have a central lineyes Central Line Typenon-tunneled Plan for non-tunneled central line removal todayno The patient continues to require non-tunneled central line access for hemodynamic monitoring Does patient have an indwelling urinary catheteryes Plan for indwelling urinary catheter removal todayno The patient continues to require indwelling urinary catheterization for critically ill patients who need accurate urinary output measurements Is the patient intubatedyes Plan for extubation todayno The patient continues to require intubation becausethey are unable to protect their airway Other: Diagnosis: Assessment: 67yo M with PMH of HTN, complicated left sided diverticulitis with perforation previously treated with abx, and perforated appendicitis requiring appendectomy and ileocolic resection at OSH 07/2017 c/b enterocutaneous fistula now s/p ex-lap with takedown of ileocolic anastomosis and fistula take down with redo of ileocolic anastomosis. A small enterovesical fistula was also taken down and primarily repaired as well as a primary ventral hernia repair with placement of subcutaneous MADISON drain on 04/14. Patient transferred to the SICU on 04/16 after a hypotensive episode and patient found to be unresponsive while on the commode. CT A/P with rectal contrast revealed hemoperitoneum and jejunal pneumatosis. Taken to OR 04/17 for ex-lap, evacuation of hematoma, omentectomy, and placement of abthera wound vac. 300mL of clot was evacuated from the omentum, oozing from the abdominal wall, jejunum with some patchy areas of ischemia, anastomosis viable and intact. Problem List: Hemoperitoneum Abdominal enterocutaneous fistula Ventral hernia Hypotension Acute blood loss anemia MONTY Plan: NEURO: Intubated and sedated. 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 - Wean FiO2 maintaining SpO2 >92%. - ABG as clinically indicated - CXR as clinically indicated - IS q1h and OOB to chair when extubated : No history of renal disease. MONTY, peak Cr 4.70 thus far. Baseline sCr 0.79. 04/18 Uop improving Cr downtrending - Creatinine downtrending 2.32 from 2.55 - appreciate nephro recs: f/u UA and urine lytes - MIVF of 75 cc/hr plasmalyte - Continue mir catheter for strict I/Os. 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 CT A/P 04/17 concern for hemoperitoneum and jejunal pneumotosis. Return to OR on 04/17 for Ex-lap, hematoma evacuation. - Plan for return to OR TODAY 04/19 for possible abdomen closure - NPO - Record MADISON drain output and characteristics - PPI prophylaxis HEME: Acute blood loss anemia. 2u pRBCs on 04/16. 3U on 04/17, H/H stable - CBC and coags as clinically indicated - Monitor drain output volume and characteristics - SCDs for DVT prophylaxis. Holding pharmacologic DVT PPx given recent hemoperitoneum ENDO: No history of diabetes. - Goal BG 140-180 - Accuchecks q4h - SSI per SICU protocol ID: Afebrile, no current indication of infection. Surgical prophylaxis - Ancef and Flagyl @ 0810 intra-op Proph: SCDs PPI Lines: L a-line, L IJ triple, L PIV Prophylaxis: PPI SCDs Dispo: SICU purple team care for now Team phone: [phone] Code Status: Code StatusFull Code Problem List: Additional Dx: Other pulmonary insufficiency, not elsewhere classified, following trauma and surgery: Entered Date: 17-Apr-2018 15:09 Postoperative hemorrhagic shock: Entered Date: 17-Apr-2018 15:09 Acute kidney injury: Entered Date: 16-Apr-2018 21:55 Comorbidities: Comorbidity: anemia, respiratory failure Anemia: acute blood loss anemia Acuity of Respiratory Failure: acute Additional Respiratory Failure Specificity: with hypoxia Signature/Cosignature/Attesta tion: Comments/ Additional Findings Critically ill 67 year-old male with hx of perforated diverticulitis and appendicitis ICA and appendectomy at OSH in July 2017. Post op course c/b by ECF-> on 04/14 s/p takedown ECF, revision ICA, takedown enterovesical fistula and VHR,. Course complicated by hypotension/resp distress necessitating ICU admission on 04/16. Evidence of acute bleeding via wound on 04/17 taken back to for ex lap. Currently: Hemorrhagic shock- resolved s/p Exp lap 04/17, s/p hematoma evacuation, wound vac placement Ischemic jejunum- going back to OR today for possible closure- Acute blood-loss anemia- Hb stable in past 24 hours continue to monitor closely Acute (postop pulm insufficiency) , hx of smoking no plans to extubate, going back to OR today open abdomen MONTY creatinine downtrending non-oliguric follow closely Replete Ca and K Critical Care PatientI have reviewed and evaluated the most recent data and results, personally examined the patient, and formulated the plan of care as presented above. This patient was critically ill and required continued critical care treatment. Teaching and any separately billable procedures are not included in the time calculation. Billing Provider Critical Care Time42 minute(s) Primary Critical Care Issue/Treatment (See Assessment and Plan for greater detail)-- This patient has impending or acute respiratory failure. We are treating with appropriate medications, ventilatory and/or oxygenating support, as indicated, as well as intensive monitoring. Please see assessment and plan above for greater detail.; -- This patient is believed to have sepsis. We are treating with appropriate agents (antibiotics, antifungals, and/or antivirals), fluids and/or pressors, as indicated, as well as intensive monitoring. Please see assessment and plan above for greater detail.; -- This patient is believed to have significant acute or end-stage renal failure requiring careful monitoring of fluid and respiratory status, including intensive treatment with appropriate medications or dialysis, as indicated. Please see assessment and plan above for greater detail. Electronic Signatures: Davis Del Valle) (Signed 19-Apr-2018 14:59) Authored: Signature/Cosignature/Attesta tion Co-Signer: Service, Subjective Data, Objective Data, Assessment and Plan Matthew Joaquin (Resident)) (Signed 19-Apr-2018 14:40) Authored: Service, Subjective Data, Objective Data, Assessment and Plan Last Updated: 19-Apr-2018 14:59 by Davis Del Valle) Normal [facility] Daily Progress Note-Colorect al Surgeryon 04-19-2018 Daily Progress Note-Colorectal Surgery Service: Colorectal Surgery Subjective Data: ADEN PATEL is a 67 year old Male who is Hospital Day # 7 and POD #2 for Exploratory laparotomy, evacuation hematoma, omentectomy, abthera wound vac. Did not require any more blood. H/H has been stable. Remains intubated/sedated. Has been off of levo. Is making adequate UOP. Had 870 cc from VAC overnight. Objective Data: Objective Information: T PRBPSpO2 [id number]% Date/Time04/19 8: 9: 9: 9:00 Range(36.8C - 37.1C ) (67 - 80 ) (11 - 17 ) (95% - 99% ) As of 19-Apr-2018 04:00:00, patient is on 50% oxygen via ventilator assisted. Highest temp of 37.1 C was recorded at 04/19 8:00 ---- Intake and Output ----- Mn/Dy/Year TimeIntakeOutputNet Apr 19, 2018 6:00 [id number] Apr 18, 2018 10:00 [id number] Apr 18, 2018 2:00 [id number] The Intake and Output Totals for the last 24 hours are: IntakeOutputNet [id number] Intake Output IV Fluids 2400 mL Urine 2845 mL Medicated IV Drips 492 mL GI 800 mL Drain 900 mL Physical Exam: Constitutional: Well developed, awake/alert/oriented x3, no distress, alert and cooperative Eyes: EOMI, clear sclera Head/Neck: Left central line in place Respiratory/Thorax: On ventilatory support. Cardiovascular: Regular rate Gastrointestinal: Nondistended, soft, abthera in place, VAC with sanguinous output. Genitourinary: Mir with clear yellow urine Extremities: MCKEON x 4 Neurological: alert and oriented x3 Psychological: Appropriate mood and behavior Medication: Medications: Continuous Medications --- 1. Norepinephrine 8 mg/ D5W 250 mL Infusion: 0.01 mcg/kg/min IntraVenous 2. PLASMA-LYTE Infusion: 1000 mL IntraVenous 3. Propofol 10 mg/mL Infusion: 5 mcg/kg/min IntraVenous Scheduled Medications --- 1. Acetaminophen: 650 mg Oral Every 6 Hours 2. Albumin 5% IV Bolus: 25 gram(s) IntraVenous Piggyback Once 3. Albumin 5% IV Bolus: 25 gram(s) IntraVenous Piggyback Once 4. Albumin 5% IV Bolus: 25 gram(s) IntraVenous Piggyback Once 5. Gastrografin 15 mL - No Flavoring - in 450 mL Clear Fluid (Pre-Exam): 1 dose(s) Oral Once 6. Insulin Lispro Customizable Corrective Scale: unit(s) SubCutaneous Every 4 Hours 7. Nicotine 21 mg/ 24 hour TransDermal: 1 patch TransDermal Every 24 Hours 8. Pantoprazole Injectable: 40 mg IntraVenous Push Every 12 Hours 9. PLASMA-LYTE IV Bolus: 1000 mL IntraVenous Piggyback Once PRN Medications --- 1. Calcium Chloride IVPB: 0.5 gram(s) IntraVenous Piggyback Every 8 Hours 2. Calcium Chloride IVPB: 1 gram(s) IntraVenous Piggyback Every 8 Hours 3. Dextrose 50% in Water Injectable: 25 gram(s) IntraVenous Push Every 15 Minutes 4. Glucagon Injectable: 1 mg IntraMuscular Every 15 Minutes 5. HYDROmorphone Injectable: 0.2 mg IntraVenous Push Every 2 Hours 6. HYDROmorphone Injectable: 0.4 mg IntraVenous Push Every 2 Hours 7. Magnesium Sulfate 2 gram/Sterile Water 50 mL Premix Soln: 2 gram(s) IntraVenous Piggyback Every 6 Hours 8. Magnesium Sulfate 4 gram/Sterile Water 100 mL Premix Soln: 4 gram(s) IntraVenous Piggyback Every 6 Hours 9. Ondansetron Injectable: 4 mg IntraVenous Push Every 6 Hours Currently Suspended Medications --- 1. Gabapentin: 300 mg Oral 3 Times a Day 2. Metoprolol Tartrate: 100 mg Oral Every 12 Hours Recent Lab Results: Results: I have reviewed these laboratory results: Glucose_POCT Trending View [id number] 07:35:00 19-Apr-2018 05:07:00 19-Apr-2018 00:32:00 Glucose-POCT84 82 81 Renal Function Panel 19-Apr-2018 05:15:00 ResultValue Glucose, Serum 68 L NA 142 K 3.6 CL 102 Bicarbonate, Serum 26 Anion Gap, Serum 18 BUN 46 H CREAT 2.32 H GFR-Non 28 A GFR- 34 A Calcium, Serum 7.6 L Phosphorus, Serum 3.5 ALB 2.5 L Magnesium, Serum 19-Apr-2018 05:15:00 ResultValue Magnesium, Serum 2.33 Calcium, Ionized Level 19-Apr-2018 05:12:00 ResultValue Calcium, Ionized Level 1.10 Arterial Full Panel 19-Apr-2018 03:51:00 ResultValue Lab Comment: [facility] CALLED RB TO CLARA LORIN, 04/19/2018 04:00 pH, Arterial 7.47 H pCO2, Arterial 44 H pO2, Arterial 98 H Patient-Temperature 37.0 SO2, Arterial 99 HCT 17.0 L Sodium-Level 139 Potassium-Level 3.2 L Chloride-Level 103 Calcium, Ionized-Level 1.13 Glucose-Level 73 L Lactate-Level 0.8 Base Excess-Blood 7.6 H Bicarbonate, Calculated, Arterial 32.0 H HGB, Calculated 5.8 LL Anion Gap-Level 7 L Coagulation Screen 19-Apr-2018 03:37:00 ResultValue Prothrombin Time, Plasma 10.7 International Normalized Ratio, Plasma 1.0 Activated Partial Thromboplastin Time 30 Complete Blood Count 19-Apr-2018 03:37:00 ResultValue White Blood Cell Count 8.6 Nucleated Erythrocyte Count 0.0 Red Blood Cell Count 3.05 L HGB 9.5 L HCT 25.6 L MCV 84 MCHC 37.1 H PLT 137 L RDW-CV 14.7 H Assessment and Plan: Assessment: 67yo M with Hx perforated appendicitis requiring appendectomy and ileocolic resection at OSH 07/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 On 04/14/18 he underwent ex lap with takedown of ileocolic anastomosis and fistula takedwon with redo of ileocolic anastomosis, and was also found to have small enterovesical fistula that was taken down and primarily repaired and primary ventral hernia repair with placement of subcutaneous MADISON drain. On 04/16/2018 (POD2) patient lost consciousness while on the commode and was bleeding from his abdominal wound. On exam, dark venous blood was evacuating from the inferior aspect of his abdominal incision. Initially he was unresponsive, however, he spontaneously regained consciousness and began following commands and responding to verbal cues. He had a pulse throughout the event, his SBP was in the 80s, and he was maintaining his saturations. Pressure was held on the abdominal incision, fluid bolus was started, and patient was transferred to the SICU. Patient was taken to the OR on 04/17/18 for ex-lap, evacuation of hematoma, omentectomy, abthera wound vac and was brought back to ICU intubated with open abdomen. Plan: - Appreciate ICU care - Hold chemo dvt ppx - Monitor VAC output closely - MONTY resolving, appreciate nephology recs - Plan for OR today for second look and possible closure. - Please call with any issues or changes Patient discussed with attending surgeon Dr. Colmenares. Marquez Bronson General Surgery, PGY-2 [facility] [id number] Signature/Cosignature/Attesta tion: Attending AttestationI saw and evaluated the patient. I personally obtained the thibodeaux and critical portions of the history and physical exam or was physically present for thibodeaux and critical portions performed by the resident/fellow. I reviewed the resident/fellows documentation and discussed the patient with the resident/fellow. I agree with the resident/fellows medical decision making as documented in the residents note. I personally evaluated the patient (as noted in the above attestation) on 19-Apr-2018 Electronic Signatures: Marquez Bronson (Resident)) (Signed 19-Apr-2018 09:48) Authored: Service, Subjective Data, Objective Data, Assessment and Plan, Signature/Cosignature/Attesta tion Nolvia Colmenares) (Signed 20-Apr-2018 06:02) Authored: Signature/Cosignature/Attesta tion Co-Signer: Service, Subjective Data, Objective Data, Assessment and Plan, Signature/Cosignature/Attesta tion Last Updated: 20-Apr-2018 06:02 by Nolvia Colmenares) Normal [facility] Daily Progress Note-Renalon 04-19-2018 Daily Progress Note-Renal Service: Renal Subjective Data: ADEN PATEL is a 67 year old Male who is Hospital Day # 7 and POD #2 for Exploratory laparotomy, evacuation hematoma, omentectomy, abthera wound vac. Plans for OR later today Improroving UOP ~ 3 L with no diuresis Downtrending Scr and BUN intubated. Objective Data: Objective Information: ---- Intake and Output ----- Mn/Dy/Year TimeIntakeOutputNet Apr 19, 2018 6:00 [id number] Apr 18, 2018 10:00 [id number] Apr 18, 2018 2:00 [id number] The Intake and Output Totals for the last 24 hours are: IntakeOutputNet [id number] T PRBPSpO2 Value37.8130103% Date/Time04/19 12: 11: 11: 11:00 Range(36.8C - 37.6C ) (67 - 80 ) (11 - 17 ) (94% - 99% ) As of 19-Apr-2018 04:00:00, patient is on 50% oxygen via ventilator assisted. Highest temp of 37.6 C was recorded at 04/19 12:00 Physical Exam: Constitutional: NAD, intubated and responds to minimal commands Eyes: Clear conjunctiva, Sclera anicteric ENMT: ET Head/Neck: NC/AT, Neck supple Respiratory/Thorax: CTAB Cardiovascular: Regular, No rub Gastrointestinal: Abdominal binder. Genitourinary: Mir with good amount of urine Musculoskeletal: MCKEON Extremities: No edema Skin: Warm, dry. No vasculitic rash. Medication: Medications: Continuous Medications --- 1. Norepinephrine 8 mg/ D5W 250 mL Infusion: 0.01 mcg/kg/min IntraVenous 2. PLASMA-LYTE Infusion: 1000 mL IntraVenous 3. Propofol 10 mg/mL Infusion: 5 mcg/kg/min IntraVenous Scheduled Medications --- 1. Acetaminophen: 650 mg Oral Every 6 Hours 2. Albumin 5% IV Bolus: 25 gram(s) IntraVenous Piggyback Once 3. Albumin 5% IV Bolus: 25 gram(s) IntraVenous Piggyback Once 4. Albumin 5% IV Bolus: 25 gram(s) IntraVenous Piggyback Once 5. Gastrografin 15 mL - No Flavoring - in 450 mL Clear Fluid (Pre-Exam): 1 dose(s) Oral Once 6. Insulin Lispro Customizable Corrective Scale: unit(s) SubCutaneous Every 4 Hours 7. Nicotine 21 mg/ 24 hour TransDermal: 1 patch TransDermal Every 24 Hours 8. Pantoprazole Injectable: 40 mg IntraVenous Push Every 12 Hours 9. PLASMA-LYTE IV Bolus: 1000 mL IntraVenous Piggyback Once PRN Medications --- 1. Calcium Chloride IVPB: 0.5 gram(s) IntraVenous Piggyback Every 8 Hours 2. Calcium Chloride IVPB: 1 gram(s) IntraVenous Piggyback Every 8 Hours 3. Dextrose 50% in Water Injectable: 25 gram(s) IntraVenous Push Every 15 Minutes 4. Glucagon Injectable: 1 mg IntraMuscular Every 15 Minutes 5. HYDROmorphone Injectable: 0.2 mg IntraVenous Push Every 2 Hours 6. HYDROmorphone Injectable: 0.4 mg IntraVenous Push Every 2 Hours 7. Magnesium Sulfate 2 gram/Sterile Water 50 mL Premix Soln: 2 gram(s) IntraVenous Piggyback Every 6 Hours 8. Magnesium Sulfate 4 gram/Sterile Water 100 mL Premix Soln: 4 gram(s) IntraVenous Piggyback Every 6 Hours 9. Ondansetron Injectable: 4 mg IntraVenous Push Every 6 Hours Currently Suspended Medications --- 1. Gabapentin: 300 mg Oral 3 Times a Day 2. Metoprolol Tartrate: 100 mg Oral Every 12 Hours Recent Lab Results: Results: I have reviewed these laboratory results: Renal Function Panel Trending View [id number] 05:15:00 18-Apr-2018 21:14:00 18-Apr-2018 10:00:00 Glucose, Serum68 L 74 85 NA142 142 141 K3.6 3.1 L 3.2 L CL102 100 99 Bicarbonate, Serum26 31 29 Anion Gap, Serum18 14 16 BUN46 H 49 H 54 H CREAT2.32 H 2.53 H 3.20 H GFR-Non [id number] A 26 A 20 A GFR- Zzzmkyfy58 A 31 A 24 A Calcium, Serum7.6 L 8.0 L 7.6 L Phosphorus, Serum3.5 3.8 4.2 ALB2.5 L 2.6 L 2.6 L Radiology Results: Results: Impression: 1. Allowing for differences in patient positioning, no significant change in layering bilateral pleural effusions and associated atelectasis. 2. Medical devices as above. No sizable pneumothorax. Xray Chest 1 View [Apr 18 2018 7:12AM] Assessment and Plan: Assessment: Patient is a 67 year old male with a PMH of HTN, Complicated left-sided diverticulitis with perforation previously treated with antibiotics, and perforated appendicitis requiring appendectomy and ileocolic resection at OSH (07/2017) c/b Enterocutaneous fistula who had an exploratory laparotomy with takedown of enterovesical fistula and re-creation of ileocolic anastomosis on 04/14/2018. On 04/15/2018, patient had multiple hypotensive episodes and an episode of lost consciousness when standing. On 04/16/2018, the patient was transferred to the TSICU after he became unresponsive and hypotensive while on the commode along with old, dark sanguinous drainage from the inferior aspect of the patient's midline incision. Patient received an IVF bolus, 2 Unit(s) pRBCs, and started on a phenylephrine gtt for hypotension. Nephrology consulted for MONTY management. -MONTY, DDx: Hemodynamically mediated, Hypotension, Progression to ATN, IAH/ACS, rhabdo -Shock, Hypovolemic -Hypovolemic hyponatremia -HTN -Anemia US Renal: No hydronephrosis. CK 1170 Course Improving UOP and down trending SCr and BUN with supportive measures Cont appropriate IV hydration as you are doing - Na is trending Up - FWD ~ 800 cc Plan: -No indication for FISH CONSERVATIONIST at this time - D5W 50 cc/hr for 1 L Rest as before - Target MAPs >70 for optimum renal perfusion. -Order FeNa, and FeUrea when possible. -Strict I&O's, Daily weights -Avoid nephrotoxic agents, hypotension, IV contrast, and NSAIDs when possible. -Renally dose medications. Will sign off, please let us known if we can be of any further assistance. Inés Henson MD, MS, [facility] CENTERVivian, [facility] Nephrology fellow P [phone] Signature/Cosignature/Attesta tion: Comments/ Additional Findings I personally visited and examined the patient on 04/19/2018. I reviewed the chart and discussed all new findings, thibodeaux points and treatment plan with fellow. I agree with note as above. Electronic Signatures: Inés Henson (Resident)) (Signed 19-Apr-2018 11:53) Authored: Service, Subjective Data, Objective Data, Assessment and Plan Seamus Parra) (Signed 19-Apr-2018 20:06) Authored: Signature/Cosignature/Attesta tion Co-Signer: Service, Subjective Data, Objective Data, Assessment and Plan Last Updated: 19-Apr-2018 20:06 by Seamus Parra) Normal [facility] GLUCOSE-POCTon 04-19-2018 Glucose [Mass/Vol] 81 mg/dL Normal 74 - 99 [facility] Comment on above: Performed By: #### G VAISHALI ####[id number] [place] [address] Glucose [Mass/Vol] 81 mg/dL Normal 74 - 99 [facility] Comment on above: Performed By: #### G VAISHALI ####[id number] [place] [address] Glucose [Mass/Vol] 76 mg/dL Normal 74 - 99 [facility] Comment on above: Performed By: #### G VAISHALI ####[id number] [place] [address] Glucose [Mass/Vol] 84 mg/dL Normal 74 - 99 [facility] Comment on above: Performed By: #### G VAISHALI ####[id number] [place] [address] Glucose [Mass/Vol] 82 mg/dL Normal 74 - 99 [facility] Comment on above: Performed By: #### G VAISHALI ####[id number] [place] [address] Glucose [Mass/Vol] 81 mg/dL Normal 74 - 99 [facility] Comment on above: Performed By: #### G VAISHALI ####[id number] [place] [address] MAGNESIUMon 04-19-2018 Magnesium [Mass/Vol] 2.33 mg/dL Normal 1.60 - 2.40 [facility] Comment on above: Performed By: #### M G ####[id number] [place] [address] Magnesium [Mass/Vol] 2.33 mg/dL Normal 1.60 - 2.40 [facility] Comment on above: Performed By: #### M G ####[id number] [place] [address] RENAL FUNCTION PANELon 04-19 Albumin [Mass/Vol] 2.6 g/dL Low 3.4 - 5.0 [facility] Comment on above: Performed By: #### R ENAL ####[id number] [place] [address] Anion gap [Moles/Vol] 15 mmol/L Normal 10 - 20 [facility] Comment on above: Performed By: #### R ENAL ####[id number] [place] [address] Calcium [Mass/Vol] 7.8 mg/dL Low 8.6 - 10.6 [facility] Comment on above: Performed By: #### R ENAL ####[id number] [place] [address] Chloride [Moles/Vol] 106 mmol/L Normal 98 - 107 [facility] Comment on above: Performed By: #### R ENAL ####[id number] [place] [address] Creatinine [Mass/Vol] 1.65 mg/dL High 0.50 - 1.30 [facility] Comment on above: Performed By: #### R ENAL ####[id number] [place] [address] GFR- AM. 51 mL/min/1.73m2 Abnormal >60 [facility] Comment on above: Result Comment: CALC ULATIONS OF ESTIMATED GFR ARE PERFORMED USING THE MDRD STUDY EQUATION FOR THE IDMS-TRACEABLE CREATININE METHODS. CLIN CHEM 2007;53:766-72 Performed By: #### R ENAL ####[id number] [place] [address] GFR-NON AM. 42 mL/min/1.73m2 Abnormal >60 [facility] Comment on above: Performed By: #### R ENAL ####[id number] [place] [address] Glucose [Mass/Vol] 70 mg/dL Low 74 - 99 [facility] Comment on above: Performed By: #### R ENAL ####[id number] [place] [address] HCO3 (Bld) [Moles/Vol] 28 mmol/L Normal 21 - 32 [facility] Comment on above: Performed By: #### R ENAL ####[id number] [place] [address] Phosphate [Mass/Vol] 2.8 mg/dL Normal 2.5 - 4.9 [facility] Comment on above: Result Comment: The performance characteristics of phosphorus testing in heparinized plasma have been validated by the individual laboratory site where testing is performed. Testing on heparinized plasma is not approved by the FDA; however, such approval is not necessary. Performed By: #### R ENAL ####[id number] [place] [address] Potassium [Moles/Vol] 3.2 mmol/L Low 3.5 - 5.3 [facility] Comment on above: Performed By: #### R ENAL ####[id number] [place] [address] Sodium [Moles/Vol] 146 mmol/L High 136 - 145 [facility] Comment on above: Performed By: #### R ENAL ####[id number] [place] [address] Urea nitrogen [Mass/Vol] 43 mg/dL High 6 - 23 [facility] Comment on above: Performed By: #### R ENAL ####[id number] [place] [address] Albumin [Mass/Vol] 2.5 g/dL Low 3.4 - 5.0 [facility] Comment on above: Performed By: #### R ENAL ####[id number] [place] [address] Anion gap [Moles/Vol] 15 mmol/L Normal 10 - 20 [facility] Comment on above: Performed By: #### R ENAL ####[id number] [place] [address] Calcium [Mass/Vol] 7.8 mg/dL Low 8.6 - 10.6 [facility] Comment on above: Performed By: #### R ENAL ####[id number] [place] [address] Chloride [Moles/Vol] 104 mmol/L Normal 98 - 107 [facility] Comment on above: Performed By: #### R ENAL ####[id number] [place] [address] Creatinine [Mass/Vol] 1.95 mg/dL High 0.50 - 1.30 [facility] Comment on above: Performed By: #### R ENAL ####[id number] [place] [address] GFR- AM. 42 mL/min/1.73m2 Abnormal >60 [facility] Comment on above: Result Comment: CALC ULATIONS OF ESTIMATED GFR ARE PERFORMED USING THE MDRD STUDY EQUATION FOR THE IDMS-TRACEABLE CREATININE METHODS. CLIN CHEM 2007;53:766-72 Performed By: #### R ENAL ####[id number] [place] [address] GFR-NON AM. 35 mL/min/1.73m2 Abnormal >60 [facility] Comment on above: Performed By: #### R ENAL ####[id number] [place] [address] Glucose [Mass/Vol] 70 mg/dL Low 74 - 99 [facility] Comment on above: Performed By: #### R ENAL ####[id number] [place] [address] HCO3 (Bld) [Moles/Vol] 29 mmol/L Normal 21 - 32 [facility] Comment on above: Performed By: #### R ENAL ####[id number] [place] [address] Phosphate [Mass/Vol] 3.1 mg/dL Normal 2.5 - 4.9 [facility] Comment on above: Result Comment: The performance characteristics of phosphorus testing in heparinized plasma have been validated by the individual laboratory site where testing is performed. Testing on heparinized plasma is not approved by the FDA; however, such approval is not necessary. Performed By: #### R ENAL ####[id number] [place] [address] Potassium [Moles/Vol] 3.5 mmol/L Normal 3.5 - 5.3 [facility] Comment on above: Performed By: #### R ENAL ####[id number] [place] [address] Sodium [Moles/Vol] 144 mmol/L Normal 136 - 145 [facility] Comment on above: Performed By: #### R ENAL ####[id number] [place] [address] Urea nitrogen [Mass/Vol] 46 mg/dL High 6 - 23 [facility] Comment on above: Performed By: #### R ENAL ####[id number] [place] [address] Albumin [Mass/Vol] 2.5 g/dL Low 3.4 - 5.0 [facility] Comment on above: Performed By: #### R ENAL ####[id number] [place] [address] Anion gap [Moles/Vol] 18 mmol/L Normal 10 - 20 [facility] Comment on above: Performed By: #### R ENAL ####[id number] [place] [address] Calcium [Mass/Vol] 7.6 mg/dL Low 8.6 - 10.6 [facility] Comment on above: Performed By: #### R ENAL ####[id number] [place] [address] Chloride [Moles/Vol] 102 mmol/L Normal 98 - 107 [facility] Comment on above: Performed By: #### R ENAL ####[id number] [place] [address] Creatinine [Mass/Vol] 2.32 mg/dL High 0.50 - 1.30 [facility] Comment on above: Performed By: #### R ENAL ####[id number] [place] [address] GFR- AM. 34 mL/min/1.73m2 Abnormal >60 [facility] Comment on above: Result Comment: CALC ULATIONS OF ESTIMATED GFR ARE PERFORMED USING THE MDRD STUDY EQUATION FOR THE IDMS-TRACEABLE CREATININE METHODS. CLIN CHEM 2007;53:766-72 Performed By: #### R ENAL ####[id number] [place] [address] GFR-NON AM. 28 mL/min/1.73m2 Abnormal >60 [facility] Comment on above: Performed By: #### R ENAL ####[id number] [place] [address] Glucose [Mass/Vol] 68 mg/dL Low 74 - 99 [facility] Comment on above: Performed By: #### R ENAL ####[id number] [place] [address] HCO3 (Bld) [Moles/Vol] 26 mmol/L Normal 21 - 32 [facility] Comment on above: Performed By: #### R ENAL ####[id number] [place] [address] Phosphate [Mass/Vol] 3.5 mg/dL Normal 2.5 - 4.9 [facility] Comment on above: Result Comment: The performance characteristics of phosphorus testing in heparinized plasma have been validated by the individual laboratory site where testing is performed. Testing on heparinized plasma is not approved by the FDA; however, such approval is not necessary. Performed By: #### R ENAL ####[id number] [place] [address] Potassium [Moles/Vol] 3.6 mmol/L Normal 3.5 - 5.3 [facility] Comment on above: Performed By: #### R ENAL ####[id number] [place] [address] Sodium [Moles/Vol] 142 mmol/L Normal 136 - 145 [facility] Comment on above: Performed By: #### R ENAL ####[id number] [place] [address] Urea nitrogen [Mass/Vol] 46 mg/dL High 6 - 23 [facility] Comment on above: Performed By: #### R ENAL ####[id number] [place] [address] Albumin [Mass/Vol] 2.6 g/dL Low 3.4 - 5.0 [facility] Comment on above: Performed By: #### R ENAL ####[id number] [place] [address] Anion gap [Moles/Vol] 14 mmol/L Normal 10 - 20 [facility] Comment on above: Performed By: #### R ENAL ####[id number] [place] [address] Calcium [Mass/Vol] 8.0 mg/dL Low 8.6 - 10.6 [facility] Comment on above: Performed By: #### R ENAL ####[id number] [place] [address] Chloride [Moles/Vol] 100 mmol/L Normal 98 - 107 [facility] Comment on above: Performed By: #### R ENAL ####[id number] [place] [address] Creatinine [Mass/Vol] 2.53 mg/dL High 0.50 - 1.30 [facility] Comment on above: Performed By: #### R ENAL ####[id number] [place] [address] GFR- AM. 31 mL/min/1.73m2 Abnormal >60 [facility] Comment on above: Result Comment: CALC ULATIONS OF ESTIMATED GFR ARE PERFORMED USING THE MDRD STUDY EQUATION FOR THE IDMS-TRACEABLE CREATININE METHODS. CLIN CHEM 2007;53:766-72 Performed By: #### R ENAL ####[id number] [place] [address] GFR-NON AM. 26 mL/min/1.73m2 Abnormal >60 [facility] Comment on above: Performed By: #### R ENAL ####[id number] [place] [address] Glucose [Mass/Vol] 74 mg/dL Normal 74 - 99 [facility] Comment on above: Performed By: #### R ENAL ####[id number] [place] [address] HCO3 (Bld) [Moles/Vol] 31 mmol/L Normal 21 - 32 [facility] Comment on above: Performed By: #### R ENAL ####[id number] [place] [address] Phosphate [Mass/Vol] 3.8 mg/dL Normal 2.5 - 4.9 [facility] Comment on above: Result Comment: The performance characteristics of phosphorus testing in heparinized plasma have been validated by the individual laboratory site where testing is performed. Testing on heparinized plasma is not approved by the FDA; however, such approval is not necessary. Performed By: #### R ENAL ####[id number] [place] [address] Potassium [Moles/Vol] 3.1 mmol/L Low 3.5 - 5.3 [facility] Comment on above: Performed By: #### R ENAL ####[id number] [place] [address] Sodium [Moles/Vol] 142 mmol/L Normal 136 - 145 [facility] Comment on above: Performed By: #### R ENAL ####[id number] [place] [address] Urea nitrogen [Mass/Vol] 49 mg/dL High 6 - 23 [facility] Comment on above: Performed By: #### R ENAL ####[id number] [place] [address] TH CHEST 1 VIEWon 04-19-2018 TH CHEST 1 VIEW Patient Name: ADEN PATEL STUDY: TH CHEST 1 VIEW; 04/19/2018 7:15 am INDICATION: Signs/Symptoms: AM rounds. COMPARISON: 04/18/2018 ACCESSION NUMBER(S): [id number] ORDERING CLINICIAN: CLARA PADGETT FINDINGS: Life-support systems in satisfactory position CARDIOMEDIASTINAL SILHOUETTE: Cardiomegaly versus pericardial effusion LUNGS: Basilar atelectasis and perihilar edema. No pneumothorax. ABDOMEN: No remarkable upper abdominal findings. BONES: No acute osseous changes. IMPRESSION: 1. Perihilar edema with basilar atelectasis and effusion. No pneumothorax. Electronically signed by: Mason SHIELDS MD Normal [facility] ARTERIAL FULL PANELon 2018 Anion gap [Moles/Vol] 9 mmol/L Low 10 - 25 [facility] Comment on above: Performed By: #### A FPA3 ####[id number] [place] [address] BASE EXCESS-BLOOD 5.5 mmol/L High -2.0 - 3.0 [facility] Comment on above: Performed By: #### A FPA3 ####[id number] [place] [address] CALCIUM,IONIZED 0.99 mmol/L Low 1.10 - 1.33 [facility] Comment on above: Performed By: #### A FPA3 ####[id number] [place] [address] Chloride [Moles/Vol] 99 mmol/L Normal 98 - 107 [facility] Comment on above: Performed By: #### A FPA3 ####[id number] [place] [address] Glucose [Mass/Vol] 93 mg/dL Normal 74 - 99 [facility] Comment on above: Performed By: #### A FPA3 ####[id number] [place] [address] Hematocrit (Bld) [Volume fraction] 25.0 % Low 41.0 - 52.0 [facility] Comment on above: Performed By: #### A FPA3 ####[id number] [place] [address] HGB,CALCULATED 8.5 g/dL Low 13.5 - 17.5 [facility] Comment on above: Performed By: #### A FPA3 ####[id number] [place] [address] Lactate [Moles/Vol] 0.9 mmol/L Normal 0.4 - 2.0 [facility] Comment on above: Performed By: #### A FPA3 ####[id number] [place] [address] Oxygen (Bld) [Partial pressure] 80 mm[Hg] Low 85 - 95 [facility] Comment on above: Performed By: #### A FPA3 ####[id number] [place] [address] PCO2 42 mmHg Normal 38 - 42 [facility] Comment on above: Performed By: #### A FPA3 ####[id number] [place] [address] pH (Bld) 7.46 [pH] High 7.38 - 7.42 [facility] Comment on above: Performed By: #### A FPA3 ####[id number] [place] [address] Potassium [Moles/Vol] 3.4 mmol/L Low 3.5 - 5.3 [facility] Comment on above: Performed By: #### A FPA3 ####[id number] [place] [address] RBC (Bld) [#/Vol] 29.9 mmol/L High 22.0 - 26.0 [facility] Comment on above: Performed By: #### A FPA3 ####[id number] [place] [address] SO2 98 % Normal 94 - 100 [facility] Comment on above: Performed By: #### A FPA3 ####[id number] [place] [address] Sodium [Moles/Vol] 134 mmol/L Low 136 - 145 [facility] Comment on above: Performed By: #### A FPA3 ####[id number] [place] [address] CALCIUM, IONIZEDon 9 CALCIUM,IONIZED 1.04 mmol/L Low 1.10 - 1.33 [facility] Comment on above: Result Comment: The performance characteristics of ionized calcium tested in heparinized plasma or serum have been validated by the individual laboratory site where testing is performed. Testing on heparinized plasma or serum is not approved by the FDA; however, such approval is not necessary. Performed By: #### I ONC1 ####[id number] [place] [address] CALCIUM,IONIZED 0.95 mmol/L Low 1.10 - 1.33 [facility] Comment on above: Result Comment: The performance characteristics of ionized calcium tested in heparinized plasma or serum have been validated by the individual laboratory site where testing is performed. Testing on heparinized plasma or serum is not approved by the FDA; however, such approval is not necessary. Performed By: #### I ONC1 ####[id number] [place] [address] CBCon 04-18-2018 Erythrocyte distribution width (RBC) [Ratio] 15.3 % High 11.5 - 14.5 [facility] Comment on above: Performed By: #### C BC ####[id number] [place] [address] Hematocrit (Bld) [Volume fraction] 27.9 % Low 41.0 - 52.0 [facility] Comment on above: Performed By: #### C BC ####[id number] [place] [address] Hemoglobin (Bld) [Mass/Vol] 9.5 g/dL Low 13.5 - 17.5 [facility] Comment on above: Performed By: #### C BC ####[id number] [place] [address] MCHC (RBC) [Mass/Vol] 34.1 g/dL Normal 32.0 - 36.0 [facility] Comment on above: Performed By: #### C BC ####[id number] [place] [address] MCV (RBC) [Entitic vol] 90 fL Normal 80 - 100 [facility] Comment on above: Performed By: #### C BC ####[id number] [place] [address] Nucleated RBC/100 WBC (Bld) [Ratio] 0.0 /100 WBC Normal 0.0-0.0 [facility] Comment on above: Performed By: #### C BC ####[id number] [place] [address] Platelets (Bld) [#/Vol] 133 10*3/uL Low 150 - 450 [facility] Comment on above: Performed By: #### C BC ####[id number] [place] [address] RBC (Bld) [#/Vol] 3.09 x10E12/L Low 4.50 - 5.90 [facility] Comment on above: Performed By: #### C BC ####[id number] [place] [address] WBC (Bld) [#/Vol] 9.6 10*3/uL Normal 4.4 - 11.3 [facility] Comment on above: Performed By: #### C BC ####[id number] [place] [address] Erythrocyte distribution width (RBC) [Ratio] 14.9 % High 11.5 - 14.5 [facility] Comment on above: Performed By: #### C BC ####[id number] [place] [address] Hematocrit (Bld) [Volume fraction] 27.5 % Low 41.0 - 52.0 [facility] Comment on above: Performed By: #### C BC ####[id number] [place] [address] Hemoglobin (Bld) [Mass/Vol] 9.4 g/dL Low 13.5 - 17.5 [facility] Comment on above: Performed By: #### C BC ####[id number] [place] [address] MCHC (RBC) [Mass/Vol] 34.2 g/dL Normal 32.0 - 36.0 [facility] Comment on above: Performed By: #### C BC ####[id number] [place] [address] MCV (RBC) [Entitic vol] 90 fL Normal 80 - 100 [facility] Comment on above: Performed By: #### C BC ####[id number] [place] [address] Nucleated RBC/100 WBC (Bld) [Ratio] 0.1 /100 WBC Normal 0.0-0.0 [facility] Comment on above: Performed By: #### C BC ####[id number] [place] [address] Platelets (Bld) [#/Vol] 132 10*3/uL Low 150 - 450 [facility] Comment on above: Performed By: #### C BC ####[id number] [place] [address] RBC (Bld) [#/Vol] 3.06 x10E12/L Low 4.50 - 5.90 [facility] Comment on above: Performed By: #### C BC ####[id number] [place] [address] WBC (Bld) [#/Vol] 9.6 10*3/uL Normal 4.4 - 11.3 [facility] Comment on above: Performed By: #### C BC ####[id number] [place] [address] COAGULATION SCREENon 019 aPTT Coag (Bld) [Time] 32 s Normal 28 - 38 [facility] Comment on above: Result Comment: Note new reference range as of 01/17/2018. THE APTT IS NO LONGER USED FOR MONITORING UNFRACTIONATED HEPARIN THERAPY. FOR MONITORING HEPARIN THERAPY, USE THE HEPARIN ASSAY. Performed By: #### C OAGS ####[id number] [place] [address] INR Coag (PPP) [Relative time] 1.1 {INR} Normal 0.9 - 1.1 [facility] Comment on above: Performed By: #### C OAGS ####[id number] [place] [address] PT Coag (PPP) [Time] 11.7 s Normal 9.7 - 12.7 [facility] Comment on above: Result Comment: Note new reference range as of 01/17/2018. Performed By: #### C OAGS ####[id number] [place] [address] aPTT Coag (Bld) [Time] 34 s Normal 28 - 38 [facility] Comment on above: Result Comment: Note new reference range as of 01/17/2018. THE APTT IS NO LONGER USED FOR MONITORING UNFRACTIONATED HEPARIN THERAPY. FOR MONITORING HEPARIN THERAPY, USE THE HEPARIN ASSAY. Performed By: #### C OAGS ####[id number] [place] [address] INR Coag (PPP) [Relative time] 1.1 {INR} Normal 0.9 - 1.1 [facility] Comment on above: Performed By: #### C OAGS ####[id number] [place] [address] PT Coag (PPP) [Time] 11.8 s Normal 9.7 - 12.7 [facility] Comment on above: Result Comment: Note new reference range as of 01/17/2018. Performed By: #### C OAGS ####[id number] [place] [address] CREATINE KINASEon 04-18-2018 CK [Catalytic activity/Vol] Canceled Normal [facility] Comment on above: Order Comment: TEST CREATINE KINASE WAS CANCELLED, 04/18/2018 02:36 DUPLICATE ORDER. Performed By: #### C K ####[id number] [place] [address] Daily Progress Note - Critic al Care-SICUon 04-18-2018 Daily Progress Note - Critical Care-SICU Service: Critical Care Service: ServiceSICU Subjective Data: ID Statement: ADEN PATEL is a 67 year old Male who is Hospital Day # 6 and ICU Day #3 and POD #1 for Exploratory laparotomy, evacuation hematoma, omentectomy, abthera wound vac. Overnight received 1 Unit(s) PRBC for poor increment and low MAP for a total of 3 Unit(s) in 24 hours. This AM patient intubated and sedated. Objective Data: Objective Information T PRBPSpO2 [id number]/6598% Date/Time04/18 4: 7: 7: 6: 7:00 Range(36.8C - 37.4C ) (71 - 100 ) (13 - 20 ) (96 - 131 )/ (56 - 69 ) (80% - 100% ) As of 18-Apr-2018 04:00:00, patient is on 50% oxygen via ventilator assisted. Highest temp of 37.4 C was recorded at 04/17 16:00 Pain reported at 04/18 4:00: 0 Direct Arterial Blood Pressure [id number](89 - 171)04/18 7:00 Diastolic (mm Hg)56(42 - 80)04/18 7:00 Mean (mm Hg)79(56 - 113)04/18 7:00 Pulse Pressure (mm Hg)68(45 - 92)04/18 7:00 ---- Intake and Output ----- Mn/Dy/Year TimeIntakeOutputNet Apr 18, 2018 6:00 [id number] Apr 17, 2018 10:00 [id number] Apr 17, 2018 2:00 [id number] The Intake and Output Totals for the last 24 hours are: IntakeOutputNet [id number] Drain and tube details (included in I&O totals) 2290 cc Indwelling Catheter - Urethral( 18-Apr-2018 06:00:00 ) Physical Exam: Physical Exam: Neurological: Intubated and sedated, responds to commands Cardiovascular: Regular, rate and rhythm, no murmurs, 2+ equal pulses of the extremities, normal S 1and S 2 Respiratory/Thorax: intubated 7.5 ET at 25, air entry bilaterally, mechanical breath sounds, Gastrointestinal: distended, tender, hypoactive bowel sounds, wound vac in place holding suction clean, dry, intact, no surrounding hematoma Skin: warm dry, diaphoretic Musculoskeletal: sedated, moves upper extremities Constitutional: Intubated, Sedated, in ICU bed Eyes: pupils equal ENMT: ETT in place, no lesion or trauma Head/Neck: NC/AT Extremities: trace lower extremity edema, no cyanosis Psychological: unable to evaluate Allergies: Allergies: No Known Allergies: Medications: Medications: CARDIOVASCULAR AGENTS: 1. Norepinephrine 8 mg/ D5W 250 mL Infusion: 0.01 mcg/kg/min IntraVenous CENTRAL NERVOUS SYSTEM AGENTS: 1. Acetaminophen: 650 mg Oral Every 6 Hours 2. HYDROmorphone Injectable: 0.2 mg IntraVenous Push Every 2 Hours PRN 3. HYDROmorphone Injectable: 0.4 mg IntraVenous Push Every 2 Hours PRN 4. Ondansetron Injectable: 4 mg IntraVenous Push Every 6 Hours PRN 5. Propofol 10 mg/mL Infusion: 5 mcg/kg/min IntraVenous GASTROINTESTINAL AGENTS: 1. Pantoprazole Injectable: 40 mg IntraVenous Push Every 12 Hours METABOLIC AGENTS: 1. Insulin Lispro Customizable Corrective Scale: unit(s) SubCutaneous Every 4 Hours 2. Dextrose 50% in Water Injectable: 25 gram(s) IntraVenous Push Every 15 Minutes PRN 3. Glucagon Injectable: 1 mg IntraMuscular Every 15 Minutes PRN MISCELLANEOUS AGENTS: 1. Nicotine 21 mg/ 24 hour TransDermal: 1 patch TransDermal Every 24 Hours NUTRITIONAL PRODUCTS: 1. PLASMA-LYTE Infusion: 1000 mL IntraVenous 2. PLASMA-LYTE IV Bolus: 1000 mL IntraVenous Piggyback Once 3. Calcium Chloride IVPB: 0.5 gram(s) IntraVenous Piggyback Every 8 Hours PRN 4. Calcium Chloride IVPB: 1 gram(s) IntraVenous Piggyback Every 8 Hours PRN 5. Magnesium Sulfate 2 gram/Sterile Water 50 mL Premix Soln: 2 gram(s) IntraVenous Piggyback Every 6 Hours PRN 6. Magnesium Sulfate 4 gram/Sterile Water 100 mL Premix Soln: 4 gram(s) IntraVenous Piggyback Every 6 Hours PRN P: 1. Albumin 5% IV Bolus: 25 gram(s) IntraVenous Piggyback Once 2. Albumin 5% IV Bolus: 25 gram(s) IntraVenous Piggyback Once 3. Albumin 5% IV Bolus: 25 gram(s) IntraVenous Piggyback Once RADIOLOGIC AGENTS: 1. Gastrografin 15 mL - No Flavoring - in 450 mL Clear Fluid (Pre-Exam): 1 dose(s) Oral Once Currently Suspended Medications --- 1. Metoprolol Tartrate: 100 mg Oral Every 12 Hours 2. Gabapentin: 300 mg Oral 3 Times a Day Recent Lab Results: Results: CBC: 04/18/2018 01:12 \ Hgb / \ 9.4 L / WBC Plt 9.6 132 L / Hct \ / 27.5 L \ RBC: 3.06 L MCV: 90 RFP: 04/18/2018 01:12 NA+ Cl- BUN / 140 99 57 H / --- Glucose 97 K+ HCO3- Creat \ 3.7 28 3.72 H \ Calcium : 7.4 LAnion Gap : 17 Albumin : 2.8 L Phos : 4.8 Coagulation: 04/18/2018 01:12 PT / 11.8 / -------< INR < 1.1 PTT\ 34 \ Fibrinogen: 571 H Recent Arterial Blood Gas Results 04/18/2018 01:19 pO280 24 h range: ( 54 - 81 ) pH7.46 24 h range: ( 7.33 - 7.46 ) jCV887 24 h range: ( 42 - 52 ) SO298 24 h range: ( 90 - 99 ) Base Excess5.5 24 h range: ( 0.9 - 5.5 ) Lqupfyszvnm25.9 24 h range: ( 27.4 - 29.9 ) Results: Impression: 1. Allowing for differences in patient positioning, no significant change in layering bilateral pleural effusions and associated atelectasis. 2. Medical devices as above. No sizable pneumothorax. Xray Chest 1 View [Apr 18 2018 7:12AM] Assessment and Plan: Daily Risk Screen: Does patient have a central lineyes Central Line Typenon-tunneled Plan for non-tunneled central line removal todayno The patient continues to require non-tunneled central line access for parenteral medication Does patient have an indwelling urinary catheteryes Plan for indwelling urinary catheter removal todayno The patient continues to require indwelling urinary catheterization for critically ill patients who need accurate urinary output measurements Is the patient intubatedyes Plan for extubation todayno The patient continues to require intubation becausethey are planned for extubation trial tomorrow Other: Diagnosis: Assessment: 67yo M with PMH of HTN, complicated left sided diverticulitis with perforation previously treated with abx, and perforated appendicitis requiring appendectomy and ileocolic resection at OSH 07/2017 c/b enterocutaneous fistula now s/p ex-lap with takedown of ileocolic anastomosis and fistula take down with redo of ileocolic anastomosis. A small enterovesical fistula was also taken down and primarily repaired as well as a primary ventral hernia repair with placement of subcutaneous MADISON drain on 04/14. Patient transferred to the SICU on 04/16 after a hypotensive episode and patient found to be unresponsive while on the commode. CT A/P with rectal contrast revealed hemoperitoneum and jejunal pneumatosis. Taken to OR 04/17 for ex-lap, evacuation of hematoma, omentectomy, and placement of abthera wound vac. 300mL of clot was evacuated from the omentum, oozing from the abdominal wall, jejunum with some patchy areas of ischemia, anastomosis viable and intact. Problem List: Hemoperitoneum Abdominal enterocutaneous fistula Ventral hernia Hypotension Acute blood loss anemia MONTY Acute liver injury Plan: NEURO: Intubated and sedated. - propofol for sedation - Serial neuro and pain assessments - Tylenol, Gabapentin, oxycodone for pain - PT Consult CV: Hypotensive on Levophed gtt. 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 - Wean FiO2 maintaining SpO2 >92%. - ABG as clinically indicated - CXR as clinically indicated - IS q1h and OOB to chair when extubated : No history of renal disease. MONTY, peak Cr 4.70 thus far. Baseline sCr 0.79. 04/18 Uop improving Cr downtrending - appreciate nephro recs: f/u UA and urine lytes - MIVF of 75 cc/hr plasmalyte - Continue mir catheter for strict I/Os. 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 CT A/P 04/17 concern for hemoperitoneum and jejunal pneumotosis. Return to OR on 04/17 for Ex-lap, hematoma evacuation. - Plan for return to OR - NPO - Record MADISON drain output and characteristics - PPI prophylaxis HEME: Acute blood loss anemia. 2u pRBCs on 04/16. 3U on 04/17 - CBC and coags as clinically indicated - Monitor drain output volume and characteristics - SCDs for DVT prophylaxis. Holding pharmacologic DVT PPx given recent hemoperitoneum ENDO: No history of diabetes. - Goal BG 140-180 - Accuchecks q4h - SSI per SICU protocol ID: Afebrile, no current indication of infection. Surgical prophylaxis - Ancef and Flagyl @ 0810 intra-op - f/u with surgery about further Abx recs Proph: SCDs PPI Lines: L a-line, L IJ triple, L PIV Prophylaxis: PPI SCDs Dispo: SICU purple team care for now Team phone: [phone] Code Status: Code StatusFull Code Comorbidities: Comorbidity: anemia Anemia: acute blood loss anemia Signature/Cosignature/Attesta tion: Comments/ Additional Findings Critically ill 67 year-old male with hx of perforated diverticulitis and appendicitis ICA and appendectomy at OSH in July 2017. Post op course c/b by ECF-> on 04/14 s/p takedown ECF, revision ICA, takedown enterovesical fistula and VHR,. Course complicated by hypotension/resp distress necessitating ICU admission on 04/16. Evidence of acute bleeding via wound on 04/17 taken back to for ex lap. Currently: Hemorrhagic shock Exp lap yesterday, s/p hematoma evacuation, wound vac placement Ischemic jejunum also noted, going back to OR tomorrow for possible closure- need for anbx--will discuss with surgical team weaning levophed Acute blood-loss anemia- s/p 3 RBCs in past 24 hours continue to monitor closely Acute (postop pulm insufficiency) , hx of smoking no plans to extubate, going back to OR tomorrow open abdomen MONTY creatinine downtrending non-oliguric follow closely Replete Ca and K Critical Care PatientI have reviewed and evaluated the most recent data and results, personally examined the patient, and formulated the plan of care as presented above. This patient was critically ill and required continued critical care treatment. Teaching and any separately billable procedures are not included in the time calculation. Billing Provider Critical Care Time45 minute(s) Primary Critical Care Issue/Treatment (See Assessment and Plan for greater detail)-- This patient is believed to have significant acute or end-stage renal failure requiring careful monitoring of fluid and respiratory status, including intensive treatment with appropriate medications or dialysis, as indicated. Please see assessment and plan above for greater detail.; -- This patient has impending or acute respiratory failure. We are treating with appropriate medications, ventilatory and/or oxygenating support, as indicated, as well as intensive monitoring. Please see assessment and plan above for greater detail.; -- This patient has undergone a major operation or significant procedure and must have intensive monitoring and management to diagnose or prevent life or limb threatening deterioration. Please see assessment and plan above for greater detail.; -- This patient is, or has been, hemodynamically unstable. We are treating with appropriate medications, as well as doing intensive diagnostic evaluation and monitoring. Please see assessment and plan above for greater detail.; -- This patient is believed to have hemorrhagic shock. We are treating with appropriate blood products, fluids and/or pressors, as indicated, as well as intensive monitoring. Please see assessment and plan above for greater detail. Electronic Signatures: Davis Del Valle () (Signed 18-Apr-2018 14:18) Authored: Signature/Cosignature/Attesta tion Co-Signer: Objective Data, Assessment and Plan, Signature/Cosignature/Attesta tion Yovany Ayers (Resident)) (Signed 18-Apr-2018 11:49) Authored: Service, Subjective Data, Objective Data, Assessment and Plan, Signature/Cosignature/Attesta tion Last Updated: 18-Apr-2018 14:18 by Davis Del Valle) Normal [facility] Daily Progress Note-Colorect al Surgeryon 04-18-2018 Daily Progress Note-Colorectal Surgery Service: Colorectal Surgery Subjective Data: ADEN PATEL is a 67 year old Male who is Hospital Day # 6 and POD #1 for Exploratory laparotomy, evacuation hematoma, omentectomy, abthera wound vac. Received 3 units of blood overnight due to poor incrementiation. H/H has remained >7 since OR. Remain intubated/sedated. Has been on/off minimal Levo overnight, is off of it this morning. Is making adequate UOP now. Had 700 cc from VAC overnight. Objective Data: Objective Information: T PRBPSpO2 [id number]/6598% Date/Time04/18 8: 10: 10: 6: 10:00 Range(36.6C - 37.4C ) (71 - 86 ) (13 - 20 ) (96 - 131 )/ (56 - 69 ) (80% - 100% ) As of 18-Apr-2018 08:00:00, patient is on 50% oxygen via ventilator assisted. Highest temp of 37.4 C was recorded at 04/17 16:00 ---- Intake and Output ----- Mn/Dy/Year TimeIntakeOutputNet Apr 18, 2018 6:00 [id number] Apr 17, 2018 10:00 [id number] Apr 17, 2018 2:00 [id number] The Intake and Output Totals for the last 24 hours are: IntakeOutputNet [id number] Intake Output IV Fluids 5375 mL Urine 2290 mL Medicated IV Drips 604.42 mL GI 1050 mL Blood 350 mL Drain 700 mL Physical Exam: Constitutional: Well developed, awake/alert/oriented x3, no distress, alert and cooperative Eyes: EOMI, clear sclera Head/Neck: Left central line in place Respiratory/Thorax: On ventilatory support. Cardiovascular: Regular rate Gastrointestinal: Nondistended, soft, abthera in place, VAC with sanguinous output. Genitourinary: Mir with clear yellow urine Extremities: MCKEON x 4 Neurological: alert and oriented x3 Psychological: Appropriate mood and behavior Medication: Medications: Continuous Medications --- 1. Norepinephrine 8 mg/ D5W 250 mL Infusion: 0.01 mcg/kg/min IntraVenous 2. PLASMA-LYTE Infusion: 1000 mL IntraVenous 3. Propofol 10 mg/mL Infusion: 5 mcg/kg/min IntraVenous Scheduled Medications --- 1. Acetaminophen: 650 mg Oral Every 6 Hours 2. Albumin 5% IV Bolus: 25 gram(s) IntraVenous Piggyback Once 3. Albumin 5% IV Bolus: 25 gram(s) IntraVenous Piggyback Once 4. Albumin 5% IV Bolus: 25 gram(s) IntraVenous Piggyback Once 5. Gastrografin 15 mL - No Flavoring - in 450 mL Clear Fluid (Pre-Exam): 1 dose(s) Oral Once 6. Insulin Lispro Customizable Corrective Scale: unit(s) SubCutaneous Every 4 Hours 7. Nicotine 21 mg/ 24 hour TransDermal: 1 patch TransDermal Every 24 Hours 8. Pantoprazole Injectable: 40 mg IntraVenous Push Every 12 Hours 9. PLASMA-LYTE IV Bolus: 1000 mL IntraVenous Piggyback Once PRN Medications --- 1. Calcium Chloride IVPB: 0.5 gram(s) IntraVenous Piggyback Every 8 Hours 2. Calcium Chloride IVPB: 1 gram(s) IntraVenous Piggyback Every 8 Hours 3. Dextrose 50% in Water Injectable: 25 gram(s) IntraVenous Push Every 15 Minutes 4. Glucagon Injectable: 1 mg IntraMuscular Every 15 Minutes 5. HYDROmorphone Injectable: 0.2 mg IntraVenous Push Every 2 Hours 6. HYDROmorphone Injectable: 0.4 mg IntraVenous Push Every 2 Hours 7. Magnesium Sulfate 2 gram/Sterile Water 50 mL Premix Soln: 2 gram(s) IntraVenous Piggyback Every 6 Hours 8. Magnesium Sulfate 4 gram/Sterile Water 100 mL Premix Soln: 4 gram(s) IntraVenous Piggyback Every 6 Hours 9. Ondansetron Injectable: 4 mg IntraVenous Push Every 6 Hours Currently Suspended Medications --- 1. Gabapentin: 300 mg Oral 3 Times a Day 2. Metoprolol Tartrate: 100 mg Oral Every 12 Hours Recent Lab Results: Results: I have reviewed these laboratory results: Coagulation Screen 18-Apr-2018 10:00:00 ResultValue Prothrombin Time, Plasma 11.7 International Normalized Ratio, Plasma 1.1 Activated Partial Thromboplastin Time 32 Complete Blood Count Trending View [id number] 10:00:00 18-Apr-2018 01:12:00 White Blood Cell Count9.6 9.6 Nucleated Erythrocyte Count0.0 0.1 Red Blood Cell Count3.09 L 3.06 L HGB9.5 L 9.4 L HCT27.9 L 27.5 L MCV90 90 MCHC34.1 34.2 POC967 L 132 L RDW-CV15.3 H 14.9 H Renal Function Panel 18-Apr-2018 10:00:00 ResultValue Glucose, Serum 85 NA 141 K 3.2 L CL 99 Bicarbonate, Serum 29 Anion Gap, Serum 16 BUN 54 H CREAT 3.20 H GFR-Non 20 A GFR- 24 A Calcium, Serum 7.6 L Phosphorus, Serum 4.2 ALB 2.6 L Fibrinogen Assay 18-Apr-2018 10:00:00 ResultValue Fibrinogen 451 H Calcium, Ionized Level 18-Apr-2018 10:00:00 ResultValue Calcium, Ionized Level 1.04 L Magnesium, Serum 18-Apr-2018 10:00:00 ResultValue Magnesium, Serum 2.25 Glucose_POCT Trending View [id number] 08:49:00 18-Apr-2018 04:10:00 Glucose-POCT87 93 Radiology Results: Results: Impression: 1. Allowing for differences in patient positioning, no significant change in layering bilateral pleural effusions and associated atelectasis. 2. Medical devices as above. No sizable pneumothorax. Xray Chest 1 View [Apr 18 2018 7:12AM] Assessment and Plan: Assessment: 67yo M with Hx perforated appendicitis requiring appendectomy and ileocolic resection at OSH 07/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 On 04/14/18 he underwent ex lap with takedown of ileocolic anastomosis and fistula takedwon with redo of ileocolic anastomosis, and was also found to have small enterovesical fistula that was taken down and primarily repaired and primary ventral hernia repair with placement of subcutaneous MADISON drain. On 04/16/2018 (POD2) patient lost consciousness while on the commode and was bleeding from his abdominal wound. On exam, dark venous blood was evacuating from the inferior aspect of his abdominal incision. Initially he was unresponsive, however, he spontaneously regained consciousness and began following commands and responding to verbal cues. He had a pulse throughout the event, his SBP was in the 80s, and he was maintaining his saturations. Pressure was held on the abdominal incision, fluid bolus was started, and patient was transferred to the SICU. Patient was taken to the OR on 04/17/18 for ex-lap, evacuation of hematoma, omentectomy, abthera wound vac and was brought back to ICU intubated with open abdomen. Plan: - Appreciate ICU care - Continue with transfusions and volume resuscitation as necessary - Hold chemo dvt ppx - Please repeat coag studies (Coag panel, fibrinogen) today - Monitor VAC output closely - MONTY resolving, appreciate nephology recs - Plan for OR for second look and possible closure. - Please call with any issues or changes Patient discussed with attending surgeon Dr. Colmenares. Marquez Bronson General Surgery, PGY-2 [place] [id number] Signature/Cosignature/Attesta tion: Attending AttestationI saw and evaluated the patient. I personally obtained the thibodeaux and critical portions of the history and physical exam or was physically present for thibodeaux and critical portions performed by the resident/fellow. I reviewed the resident/fellows documentation and discussed the patient with the resident/fellow. I agree with the resident/fellows medical decision making as documented in the residents note. I personally evaluated the patient (as noted in the above attestation) on 18-Apr-2018 Electronic Signatures: Marquez Bronson (Resident)) (Signed 18-Apr-2018 11:09) Authored: Service, Subjective Data, Objective Data, Assessment and Plan, Signature/Cosignature/Attesta tion Nolvia Colmenares) (Signed 20-Apr-2018 06:01) Authored: Signature/Cosignature/Attesta tion Co-Signer: Service, Subjective Data, Objective Data, Assessment and Plan, Signature/Cosignature/Attesta tion Last Updated: 20-Apr-2018 06:01 by Nolvia Colmenares) Normal [facility] Daily Progress Note-Renalon 04-18-2018 Daily Progress Note-Renal Service: Renal Subjective Data: AEDN PATEL is a 67 year old Male who is Hospital Day # 6 and POD #1 for Exploratory laparotomy, evacuation hematoma, omentectomy, abthera wound vac. Had OR yday - some drop in H/H and had bllod tx overnight with good incrementing Improroving UOP ~ 2.5 L with no diuresis Downtrending Scr and BUN ON pressors , intubated. Objective Data: Objective Information: ---- Intake and Output ----- Mn/Dy/Year TimeIntakeOutputNet Apr 18, 2018 6:00 [id number] Apr 17, 2018 10:00 [id number] Apr 17, 2018 2:00 [id number] The Intake and Output Totals for the last 24 hours are: IntakeOutputNet [id number] T PRBPSpO2 Value36.12850218/6598% Date/Time04/18 8: 11: 11: 6: 11:00 Range(36.6C - 37.4C ) (71 - 86 ) (13 - 20 ) (96 - 131 )/ (56 - 69 ) (80% - 100% ) As of 18-Apr-2018 08:00:00, patient is on 50% oxygen via ventilator assisted. Highest temp of 37.4 C was recorded at 04/17 16:00 Physical Exam: Constitutional: NAD, intubated and responds to minimal commands Eyes: Clear conjunctiva, Sclera anicteric ENMT: ET Head/Neck: NC/AT, Neck supple Respiratory/Thorax: CTAB Cardiovascular: Regular, No rub Gastrointestinal: Abdominal binder. Genitourinary: Mir with good amount of urine Musculoskeletal: MCKEON Extremities: No edema Skin: Warm, dry. No vasculitic rash. Medication: Medications: Continuous Medications --- 1. Norepinephrine 8 mg/ D5W 250 mL Infusion: 0.01 mcg/kg/min IntraVenous 2. PLASMA-LYTE Infusion: 1000 mL IntraVenous 3. Propofol 10 mg/mL Infusion: 5 mcg/kg/min IntraVenous Scheduled Medications --- 1. Acetaminophen: 650 mg Oral Every 6 Hours 2. Albumin 5% IV Bolus: 25 gram(s) IntraVenous Piggyback Once 3. Albumin 5% IV Bolus: 25 gram(s) IntraVenous Piggyback Once 4. Albumin 5% IV Bolus: 25 gram(s) IntraVenous Piggyback Once 5. Gastrografin 15 mL - No Flavoring - in 450 mL Clear Fluid (Pre-Exam): 1 dose(s) Oral Once 6. Insulin Lispro Customizable Corrective Scale: unit(s) SubCutaneous Every 4 Hours 7. Nicotine 21 mg/ 24 hour TransDermal: 1 patch TransDermal Every 24 Hours 8. Pantoprazole Injectable: 40 mg IntraVenous Push Every 12 Hours 9. PLASMA-LYTE IV Bolus: 1000 mL IntraVenous Piggyback Once PRN Medications --- 1. Calcium Chloride IVPB: 0.5 gram(s) IntraVenous Piggyback Every 8 Hours 2. Calcium Chloride IVPB: 1 gram(s) IntraVenous Piggyback Every 8 Hours 3. Dextrose 50% in Water Injectable: 25 gram(s) IntraVenous Push Every 15 Minutes 4. Glucagon Injectable: 1 mg IntraMuscular Every 15 Minutes 5. HYDROmorphone Injectable: 0.2 mg IntraVenous Push Every 2 Hours 6. HYDROmorphone Injectable: 0.4 mg IntraVenous Push Every 2 Hours 7. Magnesium Sulfate 2 gram/Sterile Water 50 mL Premix Soln: 2 gram(s) IntraVenous Piggyback Every 6 Hours 8. Magnesium Sulfate 4 gram/Sterile Water 100 mL Premix Soln: 4 gram(s) IntraVenous Piggyback Every 6 Hours 9. Ondansetron Injectable: 4 mg IntraVenous Push Every 6 Hours Currently Suspended Medications --- 1. Gabapentin: 300 mg Oral 3 Times a Day 2. Metoprolol Tartrate: 100 mg Oral Every 12 Hours Recent Lab Results: Results: I have reviewed these laboratory results: Complete Blood Count 18-Apr-2018 10:00:00 ResultValue White Blood Cell Count 9.6 Nucleated Erythrocyte Count 0.0 Red Blood Cell Count 3.09 L HGB 9.5 L HCT 27.9 L MCV 90 MCHC 34.1 PLT 133 L RDW-CV 15.3 H Renal Function Panel Trending View [id number] 10:00:00 18-Apr-2018 01:12:00 Glucose, Serum85 97 NA141 140 K3.2 L 3.7 CL99 99 Bicarbonate, Serum29 28 Anion Gap, Serum16 17 BUN54 H 57 H CREAT3.20 H 3.72 H GFR-Non [id number] A 16 A GFR- Ujwrvgef17 A 19 A Calcium, Serum7.6 L 7.4 L Phosphorus, Serum4.2 4.8 ALB2.6 L 2.8 L Radiology Results: Results: Impression: [Low lung volumes with bronchovascular crowding and mild bibasilar atelectasis.] Left IJ central venous catheter projects over the cavoatrial junction. Enlargement of cardiomediastinal silhouette. UNSIGNED REPOR Xray Chest 1 View [Apr 16 2018 1:37PM] Impression: 1. Grossly normal small with no hydronephrosis. 2. Partially visualized complex fluid collection in the abdomen which is not well evaluated. Correlate with cross-sectional imaging such as CT. Ultrasound Renal Bilateral [Apr 15 2018 3:59PM] Assessment and Plan: Assessment: Patient is a 67 year old male with a PMH of HTN, Complicated left-sided diverticulitis with perforation previously treated with antibiotics, and perforated appendicitis requiring appendectomy and ileocolic resection at OSH (07/2017) c/b Enterocutaneous fistula who had an exploratory laparotomy with takedown of enterovesical fistula and re-creation of ileocolic anastomosis on 04/14/2018. On 04/15/2018, patient had multiple hypotensive episodes and an episode of lost consciousness when standing. On 04/16/2018, the patient was transferred to the TSICU after he became unresponsive and hypotensive while on the commode along with old, dark sanguinous drainage from the inferior aspect of the patient's midline incision. Patient received an IVF bolus, 2 Unit(s) pRBCs, and started on a phenylephrine gtt for hypotension. Nephrology consulted for MONTY management. -MONTY, DDx: Hemodynamically mediated, Hypotension, Progression to ATN, IAH/ACS, rhabdo -Shock, Hypovolemic -Hypovolemic hyponatremia -HTN -Anemia US Renal: No hydronephrosis. CK 1170 Course Improving UOP and down trending SCr and BUN with supportive measures Cont appropriate IV hydration as you are doing Plan: -No indication for FISH CONSERVATIONIST. Family are verbally agreeable as needed Rest as before - Target MAPs >70 for optimum renal perfusion. -Order FeNa, and FeUrea when possible. -Strict I&O's, Daily weights -Avoid nephrotoxic agents, hypotension, IV contrast, and NSAIDs when possible. -Renally dose medications. Inés Henson MD, MS, FASN, SAMANTHA Nephrology fellow P [phone] Signature/Cosignature/Attesta tion: Comments/ Additional Findings I personally visited and examined the patient on 04/18/2018. I reviewed the chart and discussed all new findings, thibodeaux points and treatment plan with fellow. I agree with note as above. Electronic Signatures: Inés Henson (Resident)) (Signed 18-Apr-2018 11:33) Authored: Service, Subjective Data, Objective Data, Assessment and Plan Seamus Parra) (Signed 18-Apr-2018 20:42) Authored: Signature/Cosignature/Attesta tion Co-Signer: Service, Subjective Data, Objective Data, Assessment and Plan Last Updated: 18-Apr-2018 20:42 by Seamus Parra) Normal [facility] FIBRINOGENon 04-18-2018 FIBRINOGEN 451 mg/dL High 200 - 400 [facility] Comment on above: Performed By: #### F IB ####[id number] [place] [address] GLUCOSE-POCTon 04-18-2018 Glucose [Mass/Vol] 87 mg/dL Normal 74 - 99 [facility] Comment on above: Performed By: #### G VAISHALI ####[id number] [place] [address] Glucose [Mass/Vol] 81 mg/dL Normal 74 - 99 [facility] Comment on above: Performed By: #### G VAISHALI ####[id number] [place] [address] Glucose [Mass/Vol] 92 mg/dL Normal 74 - 99 [facility] Comment on above: Performed By: #### G VAISHALI ####[id number] [place] [address] Glucose [Mass/Vol] 87 mg/dL Normal 74 - 99 [facility] Comment on above: Performed By: #### G VAISHALI ####[id number] [place] [address] Glucose [Mass/Vol] 93 mg/dL Normal 74 - 99 [facility] Comment on above: Performed By: #### G VAISHALI ####[id number] [place] [address] Glucose [Mass/Vol] 103 mg/dL High 74 - 99 [facility] Comment on above: Performed By: #### G VAISHALI ####[id number] [place] [address] MAGNESIUMon 04-18-2018 Magnesium [Mass/Vol] 2.25 mg/dL Normal 1.60 - 2.40 [facility] Comment on above: Performed By: #### M G ####[id number] [place] [address] Magnesium [Mass/Vol] 2.19 mg/dL Normal 1.60 - 2.40 [facility] Comment on above: Performed By: #### M G ####[id number] [place] [address] RENAL FUNCTION PANELon 04-18 Albumin [Mass/Vol] 2.6 g/dL Low 3.4 - 5.0 [facility] Comment on above: Performed By: #### R ENAL ####[id number] [place] [address] Anion gap [Moles/Vol] 16 mmol/L Normal 10 - 20 [facility] Comment on above: Performed By: #### R ENAL ####[id number] [place] [address] Calcium [Mass/Vol] 7.6 mg/dL Low 8.6 - 10.6 [facility] Comment on above: Performed By: #### R ENAL ####[id number] [place] [address] Chloride [Moles/Vol] 99 mmol/L Normal 98 - 107 [facility] Comment on above: Performed By: #### R ENAL ####[id number] [place] [address] Creatinine [Mass/Vol] 3.20 mg/dL High 0.50 - 1.30 [facility] Comment on above: Performed By: #### R ENAL ####[id number] [place] [address] GFR- AM. 24 mL/min/1.73m2 Abnormal >60 [facility] Comment on above: Result Comment: CALC ULATIONS OF ESTIMATED GFR ARE PERFORMED USING THE MDRD STUDY EQUATION FOR THE IDMS-TRACEABLE CREATININE METHODS. CLIN CHEM 2007;53:766-72 Performed By: #### R ENAL ####[id number] [place] [address] GFR-NON AM. 20 mL/min/1.73m2 Abnormal >60 [facility] Comment on above: Performed By: #### R ENAL ####[id number] [place] [address] Glucose [Mass/Vol] 85 mg/dL Normal 74 - 99 [facility] Comment on above: Performed By: #### R ENAL ####[id number] [place] [address] HCO3 (Bld) [Moles/Vol] 29 mmol/L Normal 21 - 32 [facility] Comment on above: Performed By: #### R ENAL ####[id number] [place] [address] Phosphate [Mass/Vol] 4.2 mg/dL Normal 2.5 - 4.9 [facility] Comment on above: Result Comment: The performance characteristics of phosphorus testing in heparinized plasma have been validated by the individual laboratory site where testing is performed. Testing on heparinized plasma is not approved by the FDA; however, such approval is not necessary. Performed By: #### R ENAL ####[id number] [place] [address] Potassium [Moles/Vol] 3.2 mmol/L Low 3.5 - 5.3 [facility] Comment on above: Performed By: #### R ENAL ####[id number] [place] [address] Sodium [Moles/Vol] 141 mmol/L Normal 136 - 145 [facility] Comment on above: Performed By: #### R ENAL ####[id number] [place] [address] Urea nitrogen [Mass/Vol] 54 mg/dL High 6 - 23 [facility] Comment on above: Performed By: #### R ENAL ####[id number] [place] [address] Albumin [Mass/Vol] 2.8 g/dL Low 3.4 - 5.0 [facility] Comment on above: Performed By: #### R ENAL ####[id number] [place] [address] Anion gap [Moles/Vol] 17 mmol/L Normal 10 - 20 [facility] Comment on above: Performed By: #### R ENAL ####[id number] [place] [address] Calcium [Mass/Vol] 7.4 mg/dL Low 8.6 - 10.6 [facility] Comment on above: Performed By: #### R ENAL ####[id number] [place] [address] Chloride [Moles/Vol] 99 mmol/L Normal 98 - 107 [facility] Comment on above: Performed By: #### R ENAL ####[id number] [place] [address] Creatinine [Mass/Vol] 3.72 mg/dL High 0.50 - 1.30 [facility] Comment on above: Performed By: #### R ENAL ####[id number] [place] [address] GFR- AM. 19 mL/min/1.73m2 Abnormal >60 [facility] Comment on above: Result Comment: CALC ULATIONS OF ESTIMATED GFR ARE PERFORMED USING THE MDRD STUDY EQUATION FOR THE IDMS-TRACEABLE CREATININE METHODS. CLIN CHEM 2007;53:766-72 Performed By: #### R ENAL ####[id number] [place] [address] GFR-NON AM. 16 mL/min/1.73m2 Abnormal >60 [facility] Comment on above: Performed By: #### R ENAL ####[id number] [place] [address] Glucose [Mass/Vol] 97 mg/dL Normal 74 - 99 [facility] Comment on above: Performed By: #### R ENAL ####[id number] [place] [address] HCO3 (Bld) [Moles/Vol] 28 mmol/L Normal 21 - 32 [facility] Comment on above: Performed By: #### R ENAL ####[id number] [place] [address] Phosphate [Mass/Vol] 4.8 mg/dL Normal 2.5 - 4.9 [facility] Comment on above: Result Comment: The performance characteristics of phosphorus testing in heparinized plasma have been validated by the individual laboratory site where testing is performed. Testing on heparinized plasma is not approved by the FDA; however, such approval is not necessary. Performed By: #### R ENAL ####[id number] [place] [address] Potassium [Moles/Vol] 3.7 mmol/L Normal 3.5 - 5.3 [facility] Comment on above: Performed By: #### R ENAL ####[id number] [place] [address] Sodium [Moles/Vol] 140 mmol/L Normal 136 - 145 [facility] Comment on above: Performed By: #### R ENAL ####[id number] [place] [address] Urea nitrogen [Mass/Vol] 57 mg/dL High 6 - 23 [facility] Comment on above: Performed By: #### R ENAL ####[id number] [place] [address] REQUEST-LEUKOREDUCED RED DANNY LSon 04-18-2018 REQUEST-LEUKOREDU MABEL RED CELLS ORDER RECD Normal [facility] Comment on above: Performed By: #### O MATTING PRESS TENDER ####[id number] [place] [address] TH CHEST 1 VIEWon 04-18-2018 TH CHEST 1 VIEW Patient Name: ADEN PATEL STUDY: TH CHEST 1 VIEW; 04/18/2018 6:59 am INDICATION: Signs/Symptoms: AM rounds. COMPARISON: Chest radiograph from 04/17/2018 ACCESSION NUMBER(S): [id number] ORDERING CLINICIAN: CLARA PADGETT FINDINGS: Endotracheal tube tip now projects approximately 1.7 cm superior to luis and consider retraction by 1-2 cm. Enteric tube is again seen coursing below diaphragm a tip extending beyond the field of view. Left IJ central venous catheter is unchanged from prior. The cardiomediastinal silhouette is persistently enlarged unchanged from prior. Continued low lung volumes with bronchovascular crowding. Interval slight increase in diffuse bilateral lung haziness with persistent bibasilar opacity, which may be secondary to layering pleural effusions and associated atelectasis. Overall, no significant change in bilateral lung aeration No acute osseous abnormality. IMPRESSION: 1. Allowing for differences in patient positioning, no significant change in layering bilateral pleural effusions and associated atelectasis. 2. Medical devices as above. No sizable pneumothorax. Electronically signed by: KIKI QUEZADA MD Normal [facility] ARTERIAL FULL PANELon 2018 Anion gap [Moles/Vol] 10 mmol/L Normal 10 - 25 [facility] Comment on above: Performed By: #### A FPA3 ####[id number] [place] [address] BASE EXCESS-BLOOD 4.8 mmol/L High -2.0 - 3.0 [facility] Comment on above: Performed By: #### A FPA3 ####[id number] [place] [address] CALCIUM,IONIZED 0.97 mmol/L Low 1.10 - 1.33 [facility] Comment on above: Performed By: #### A FPA3 ####[id number] [place] [address] Chloride [Moles/Vol] 98 mmol/L Normal 98 - 107 [facility] Comment on above: Performed By: #### A FPA3 ####[id number] [place] [address] Glucose [Mass/Vol] 108 mg/dL High 74 - 99 [facility] Comment on above: Performed By: #### A FPA3 ####[id number] [place] [address] Hematocrit (Bld) [Volume fraction] 24.0 % Low 41.0 - 52.0 [facility] Comment on above: Performed By: #### A FPA3 ####[id number] [place] [address] HGB,CALCULATED 8.2 g/dL Low 13.5 - 17.5 [facility] Comment on above: Performed By: #### A FPA3 ####[id number] [place] [address] Lactate [Moles/Vol] 1.0 mmol/L Normal 0.4 - 2.0 [facility] Comment on above: Performed By: #### A FPA3 ####[id number] [place] [address] Oxygen (Bld) [Partial pressure] 81 mm[Hg] Low 85 - 95 [facility] Comment on above: Performed By: #### A FPA3 ####[id number] [place] [address] PCO2 42 mmHg Normal 38 - 42 [facility] Comment on above: Performed By: #### A FPA3 ####[id number] [place] [address] pH (Bld) 7.45 [pH] High 7.38 - 7.42 [facility] Comment on above: Performed By: #### A FPA3 ####[id number] [place] [address] Potassium [Moles/Vol] 3.7 mmol/L Normal 3.5 - 5.3 [facility] Comment on above: Performed By: #### A FPA3 ####[id number] [place] [address] RBC (Bld) [#/Vol] 29.2 mmol/L High 22.0 - 26.0 [facility] Comment on above: Performed By: #### A FPA3 ####[id number] [place] [address] SO2 99 % Normal 94 - 100 [facility] Comment on above: Performed By: #### A FPA3 ####[id number] [place] [address] Sodium [Moles/Vol] 133 mmol/L Low 136 - 145 [facility] Comment on above: Performed By: #### A FPA3 ####[id number] [place] [address] Anion gap [Moles/Vol] 10 mmol/L Normal 10 - 25 [facility] Comment on above: Performed By: #### A FPA3 ####[id number] [place] [address] BASE EXCESS-BLOOD 4.4 mmol/L High -2.0 - 3.0 [facility] Comment on above: Performed By: #### A FPA3 ####[id number] [place] [address] CALCIUM,IONIZED 0.98 mmol/L Low 1.10 - 1.33 [facility] Comment on above: Performed By: #### A FPA3 ####[id number] [place] [address] Chloride [Moles/Vol] 97 mmol/L Low 98 - 107 [facility] Comment on above: Performed By: #### A FPA3 ####[id number] [place] [address] Glucose [Mass/Vol] 118 mg/dL High 74 - 99 [facility] Comment on above: Performed By: #### A FPA3 ####[id number] [place] [address] Hematocrit (Bld) [Volume fraction] 21.0 % Low 41.0 - 52.0 [facility] Comment on above: Performed By: #### A FPA3 ####[id number] [place] [address] HGB,CALCULATED 7.1 g/dL Low 13.5 - 17.5 [facility] Comment on above: Performed By: #### A FPA3 ####[id number] [place] [address] Lactate [Moles/Vol] 1.2 mmol/L Normal 0.4 - 2.0 [facility] Comment on above: Performed By: #### A FPA3 ####[id number] [place] [address] Oxygen (Bld) [Partial pressure] 73 mm[Hg] Low 85 - 95 [facility] Comment on above: Performed By: #### A FPA3 ####[id number] [place] [address] PCO2 44 mmHg High 38 - 42 [facility] Comment on above: Performed By: #### A FPA3 ####[id number] [place] [address] pH (Bld) 7.43 [pH] High 7.38 - 7.42 [facility] Comment on above: Performed By: #### A FPA3 ####[id number] [place] [address] Potassium [Moles/Vol] 4.0 mmol/L Normal 3.5 - 5.3 [facility] Comment on above: Performed By: #### A FPA3 ####[id number] [place] [address] RBC (Bld) [#/Vol] 29.2 mmol/L High 22.0 - 26.0 [facility] Comment on above: Performed By: #### A FPA3 ####[id number] [place] [address] SO2 97 % Normal 94 - 100 [facility] Comment on above: Performed By: #### A FPA3 ####[id number] [place] [address] Sodium [Moles/Vol] 132 mmol/L Low 136 - 145 [facility] Comment on above: Performed By: #### A FPA3 ####[id number] [place] [address] Anion gap [Moles/Vol] 13 mmol/L Normal 10 - 25 [facility] Comment on above: Performed By: #### H EPFP #### [facility] [address] [place] [address] BASE EXCESS-BLOOD 0.9 mmol/L Normal -2.0 - 3.0 [facility] Comment on above: Performed By: #### H EPFP #### [facility] [address] [place] [address] CALCIUM,IONIZED 0.93 mmol/L Low 1.10 - 1.33 [facility] Comment on above: Performed By: #### H EPFP #### [facility] [address] [place] [address] Chloride [Moles/Vol] 96 mmol/L Low 98 - 107 [facility] Comment on above: Performed By: #### H EPFP #### [facility] [address] [place] [address] Glucose [Mass/Vol] 149 mg/dL High 74 - 99 [facility] Comment on above: Performed By: #### H EPFP #### [facility] [address] [place] [address] Hematocrit (Bld) [Volume fraction] 29.0 % Low 41.0 - 52.0 [facility] Comment on above: Performed By: #### H EPFP #### [facility] [address] [place] [address] HGB,CALCULATED 9.9 g/dL Low 13.5 - 17.5 [facility] Comment on above: Performed By: #### H EPFP #### [facility] [address] [place] [address] Lactate [Moles/Vol] 1.5 mmol/L Normal 0.4 - 2.0 [facility] Comment on above: Performed By: #### H EPFP #### [facility] [address] [place] [address] Oxygen (Bld) [Partial pressure] 54 mm[Hg] Low 85 - 95 [facility] Comment on above: Performed By: #### H EPFP #### [facility] [address] [place] [address] PCO2 52 mmHg High 38 - 42 [facility] Comment on above: Performed By: #### H EPFP #### [facility] [address] [place] [address] pH (Bld) 7.33 [pH] Low 7.38 - 7.42 [facility] Comment on above: Performed By: #### H EPFP #### [facility] [address] [place] [address] Potassium [Moles/Vol] 4.3 mmol/L Normal 3.5 - 5.3 [facility] Comment on above: Performed By: #### H EPFP #### [facility] [address] [place] [address] RBC (Bld) [#/Vol] 27.4 mmol/L High 22.0 - 26.0 [facility] Comment on above: Performed By: #### H EPFP #### [facility] [address] [place] [address] SO2 90 % Low 94 - 100 [facility] Comment on above: Performed By: #### H EPFP #### [facility] [address] [place] [address] Sodium [Moles/Vol] 132 mmol/L Low 136 - 145 [facility] Comment on above: Performed By: #### H EPFP #### [facility] [address] [place] [address] Anion gap [Moles/Vol] 14 mmol/L Normal 10 - 25 [facility] Comment on above: Performed By: #### C BCDF #### [facility] [address] [place] [address] BASE EXCESS-BLOOD 3.1 mmol/L High -2.0 - 3.0 [facility] Comment on above: Performed By: #### C BCDF #### [facility] [address] [place] [address] CALCIUM,IONIZED 0.98 mmol/L Low 1.10 - 1.33 [facility] Comment on above: Performed By: #### C BCDF #### [facility] [address] [place] [address] Chloride [Moles/Vol] 95 mmol/L Low 98 - 107 [facility] Comment on above: Performed By: #### C BCDF #### [facility] [address] [place] [address] Glucose [Mass/Vol] 136 mg/dL High 74 - 99 [facility] Comment on above: Performed By: #### C BCDF #### [facility] [address] [place] [address] Hematocrit (Bld) [Volume fraction] 29.0 % Low 41.0 - 52.0 [facility] Comment on above: Performed By: #### C BCDF #### [facility] [address] [place] [address] HGB,CALCULATED 9.9 g/dL Low 13.5 - 17.5 [facility] Comment on above: Performed By: #### C BCDF #### [facility] [address] [place] [address] Lactate [Moles/Vol] 1.7 mmol/L Normal 0.4 - 2.0 [facility] Comment on above: Performed By: #### C BCDF #### [facility] [address] [place] [address] Oxygen (Bld) [Partial pressure] 60 mm[Hg] Low 85 - 95 [facility] Comment on above: Performed By: #### C BCDF #### [facility] [address] [place] [address] PCO2 37 mmHg Low 38 - 42 [facility] Comment on above: Performed By: #### C BCDF #### [facility] [address] [place] [address] pH (Bld) 7.47 [pH] High 7.38 - 7.42 [facility] Comment on above: Performed By: #### C BCDF #### [facility] [address] [place] [address] Potassium [Moles/Vol] 4.8 mmol/L Normal 3.5 - 5.3 [facility] Comment on above: Performed By: #### C BCDF #### [facility] [address] [place] [address] RBC (Bld) [#/Vol] 26.9 mmol/L High 22.0 - 26.0 [facility] Comment on above: Performed By: #### C BCDF #### [facility] [address] [place] [address] SO2 95 % Normal 94 - 100 [facility] Comment on above: Performed By: #### C BCDF #### [facility] [address] [place] [address] Sodium [Moles/Vol] 131 mmol/L Low 136 - 145 [facility] Comment on above: Performed By: #### C BCDF #### [facility] [address] [place] [address] Anion gap [Moles/Vol] 17 mmol/L Normal 10 - 25 [facility] Comment on above: Performed By: #### C OAGS #### [facility] [address] [place] [address] BASE EXCESS-BLOOD -0.2 mmol/L Normal -2.0 - 3.0 [facility] Comment on above: Performed By: #### C OAGS #### [facility] [address] [place] [address] CALCIUM,IONIZED 1.01 mmol/L Low 1.10 - 1.33 [facility] Comment on above: Performed By: #### C OAGS #### [facility] [address] [place] [address] Chloride [Moles/Vol] 94 mmol/L Low 98 - 107 [facility] Comment on above: Performed By: #### C OAGS #### [facility] [address] [place] [address] Glucose [Mass/Vol] 138 mg/dL High 74 - 99 [facility] Comment on above: Performed By: #### C OAGS #### [facility] [address] [place] [address] Hematocrit (Bld) [Volume fraction] 24.0 % Low 41.0 - 52.0 [facility] Comment on above: Performed By: #### C OAGS #### [facility] [address] [place] [address] HGB,CALCULATED 8.2 g/dL Low 13.5 - 17.5 [facility] Comment on above: Performed By: #### C OAGS #### [facility] [address] [place] [address] Lactate [Moles/Vol] 2.2 mmol/L High 0.4 - 2.0 [facility] Comment on above: Performed By: #### C OAGS #### [facility] [address] [place] [address] Oxygen (Bld) [Partial pressure] 69 mm[Hg] Low 85 - 95 [facility] Comment on above: Performed By: #### C OAGS #### [facility] [address] [place] [address] PCO2 35 mmHg Low 38 - 42 [facility] Comment on above: Performed By: #### C OAGS #### [facility] [address] [place] [address] pH (Bld) 7.44 [pH] High 7.38 - 7.42 [facility] Comment on above: Performed By: #### C OAGS #### [facility] [address] [place] [address] Potassium [Moles/Vol] 4.8 mmol/L Normal 3.5 - 5.3 [facility] Comment on above: Performed By: #### C OAGS #### [facility] [address] [place] [address] RBC (Bld) [#/Vol] 23.8 mmol/L Normal 22.0 - 26.0 [facility] Comment on above: Performed By: #### C OAGS #### [facility] [address] [place] [address] SO2 96 % Normal 94 - 100 [facility] Comment on above: Performed By: #### C OAGS #### [facility] [address] [place] [address] Sodium [Moles/Vol] 130 mmol/L Low 136 - 145 [facility] Comment on above: Performed By: #### C OAGS #### [facility] [address] [place] [address] ABDOMEN AND PELVIS WO CONTRASTon 04-17-[address] ABDOMEN AND PELVIS WO CONTRAST Patient Name: ADEN PATEL STUDY: BD CT ABDOMEN AND PELVIS WO CONTRAST; 04/17/2018 4:22 am INDICATION: Signs/Symptoms: evaluate for colonic anastamotic leak s/p EC fistula + colovesicular fistula takedown, Lie Flat: Yes. COMPARISON: None ACCESSION NUMBER(S): [id number] ORDERING CLINICIAN: CLARA EATON TECHNIQUE: CT of the abdomen and pelvis was performed. Contiguous axial images were obtained at 3 mm slice thickness through the abdomen and pelvis. Coronal and sagittal reconstructions at 3 mm slice thickness were performed. No intravenous or oral contrast agents were administered. Rectal contrast was administered. FINDINGS: Please note that the evaluation of vessels, lymph nodes and organs is limited without intravenous contrast. LOWER CHEST: There are small bilateral pleural effusions, with associated atelectasis/consolidation of the lower lobes, right greater than left. Heart is upper limits of normal in size, without pericardial effusion. Distal esophagus is filled with fluid. ABDOMEN: LIVER: Liver is normal size and homogeneous in attenuation. Within limits of a non-contrast exam, no focal liver lesions identified. BILE DUCTS: The intrahepatic and extrahepatic ducts are not dilated. GALLBLADDER: Gallbladder is slightly distended filled with layering, slightly hyperdense fluid, likely representing sludge. No radiopaque stones are identified. No pericholecystic edema. PANCREAS: There is fatty replacement of the pancreas, which is otherwise unremarkable. SPLEEN: Spleen is normal in size. ADRENAL GLANDS: Bilateral adrenal glands are unremarkable. KIDNEYS AND URETERS: Kidneys are symmetric in size. There is no hydronephrosis bilaterally. There is mild nonspecific perinephric stranding bilaterally. PELVIS: BLADDER: Bladder is decompressed with Mir catheter in place. REPRODUCTIVE ORGANS: Prostate is present. BOWEL: Enteric tube is noted terminating within the proximal stomach body. Enteric tube side hole appears to be within the distal esophagus. Non dependent, circumferential, intramural foci of air are observed within the jejunal loops axial image 66/183, concerning for pneumatosis. Non dependent hyperdense foci are observed along the anterior abdominal wall near the incision site likely secondary to recent postsurgical intervention. No evidence to suggest obstruction in the small and large bowel. VESSELS: There is mild ectasia of the distal abdominal aorta. 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 There are extensive vascular calcifications of the abdominal aorta and its branch vessels. PERITONEUM/RETROPERITONEUM/LY MPH NODES: Layering hyperdense material is noted in the right hemiabdomen, extending from the inferior right hepatic lobe to the low pelvis axial image 78/183, without extensive intraperitoneal free air is consistent with hemoperitoneum, however anastomotic leak is not excluded. Mild free air is noted on axial image 41/183, likely postsurgical in nature. ABDOMINAL WALL: There is mild diffuse soft tissue anasarca. Midline laparotomy defect, with surgical drain is noted along the midline in the subcutaneous soft tissues of the anterior abdominal wall. There are multiple scattered foci of air within the subcutaneous tissues along the incision site. BONES: There is severe degenerative changes of the bilateral hips, left greater than right. There are multilevel discogenic degenerative changes of the lower thoracic and lumbar spine. There are no suspicious osseous lesions. IMPRESSION: 1. Non dependent, circumferential, intramural foci of air within the jejunal loops concerning for pneumatosis intestinalis axial image 66/183. 2. Hyperdense material noted within the right hemiabdomen, most concerning for acute layering hemorrhagic products, cannot exclude dilute oral contrast and anastomotic leak, axial image 78/183. 3. Hyperdense, foci along the anterior abdominal wall near the incision site may represent focus of hemorrhage axial image 90/183. 4. Bilateral pleural effusions with associated atelectasis and consolidation, right greater than left. 5. Enteric tube side hole is within the distal esophagus, recommend slight advancement. 6. Extensive degenerative changes of the hips and lumbar spine. Findings discussed with Dr. Desir by residential substance abuse counselor Dr. Alex at 10:37A.M 04/17/2018. I personally reviewed the images/study and Dr. Javier's interpretation and I agree with the findings as stated. This study was performed , analyzed and interpreted at [facility], [place], [place]. Electronically signed by: LENA JETT MD Normal [facility] CALCIUM, IONIZEDon 9 CALCIUM,IONIZED 0.94 mmol/L Low 1.10 - 1.33 [facility] Comment on above: Result Comment: The performance characteristics of ionized calcium tested in heparinized plasma or serum have been validated by the individual laboratory site where testing is performed. Testing on heparinized plasma or serum is not approved by the FDA; however, such approval is not necessary. Performed By: #### I ONC1 ####[id number] [place] [address] CALCIUM,IONIZED 0.88 mmol/L Low 1.10 - 1.33 [facility] Comment on above: Result Comment: The performance characteristics of ionized calcium tested in heparinized plasma or serum have been validated by the individual laboratory site where testing is performed. Testing on heparinized plasma or serum is not approved by the FDA; however, such approval is not necessary. Performed By: #### M G #### [facility] [address] [place] [address] CALCIUM,IONIZED 0.99 mmol/L Low 1.10 - 1.33 [facility] Comment on above: Result Comment: The performance characteristics of ionized calcium tested in heparinized plasma or serum have been validated by the individual laboratory site where testing is performed. Testing on heparinized plasma or serum is not approved by the FDA; however, such approval is not necessary. Performed By: #### C BCDF #### [facility] [address] [place] [address] CBCon 04-17-2018 Erythrocyte distribution width (RBC) [Ratio] 14.8 % High 11.5 - 14.5 [facility] Comment on above: Performed By: #### C BC ####[id number] [place] [address] Hematocrit (Bld) [Volume fraction] 25.9 % Low 41.0 - 52.0 [facility] Comment on above: Performed By: #### C BC ####[id number] [place] [address] Hemoglobin (Bld) [Mass/Vol] 8.9 g/dL Low 13.5 - 17.5 [facility] Comment on above: Performed By: #### C BC ####[id number] [place] [address] MCHC (RBC) [Mass/Vol] 34.4 g/dL Normal 32.0 - 36.0 [facility] Comment on above: Performed By: #### C BC ####[id number] [place] [address] MCV (RBC) [Entitic vol] 91 fL Normal 80 - 100 [facility] Comment on above: Performed By: #### C BC ####[id number] [place] [address] Nucleated RBC/100 WBC (Bld) [Ratio] 0.1 /100 WBC Normal 0.0-0.0 [facility] Comment on above: Performed By: #### C BC ####[id number] [place] [address] Platelets (Bld) [#/Vol] 137 10*3/uL Low 150 - 450 [facility] Comment on above: Performed By: #### C BC ####[id number] [place] [address] RBC (Bld) [#/Vol] 2.85 x10E12/L Low 4.50 - 5.90 [facility] Comment on above: Performed By: #### C BC ####[id number] [place] [address] WBC (Bld) [#/Vol] 8.5 10*3/uL Normal 4.4 - 11.3 [facility] Comment on above: Performed By: #### C BC ####[id number] [place] [address] Erythrocyte distribution width (RBC) [Ratio] 15.2 % High 11.5 - 14.5 [facility] Comment on above: Performed By: #### C BC ####[id number] [place] [address] Hematocrit (Bld) [Volume fraction] 23.7 % Low 41.0 - 52.0 [facility] Comment on above: Performed By: #### C BC ####[id number] [place] [address] Hemoglobin (Bld) [Mass/Vol] 8.2 g/dL Low 13.5 - 17.5 [facility] Comment on above: Performed By: #### C BC ####[id number] [place] [address] MCHC (RBC) [Mass/Vol] 34.6 g/dL Normal 32.0 - 36.0 [facility] Comment on above: Performed By: #### C BC ####[id number] [place] [address] MCV (RBC) [Entitic vol] 90 fL Normal 80 - 100 [facility] Comment on above: Performed By: #### C BC ####[id number] [place] [address] Nucleated RBC/100 WBC (Bld) [Ratio] 0.0 /100 WBC Normal 0.0-0.0 [facility] Comment on above: Performed By: #### C BC ####[id number] [place] [address] Platelets (Bld) [#/Vol] 142 10*3/uL Low 150 - 450 [facility] Comment on above: Performed By: #### C BC ####[id number] [place] [address] RBC (Bld) [#/Vol] 2.64 x10E12/L Low 4.50 - 5.90 [facility] Comment on above: Performed By: #### C BC ####[id number] [place] [address] WBC (Bld) [#/Vol] 8.0 10*3/uL Normal 4.4 - 11.3 [facility] Comment on above: Performed By: #### C BC ####[id number] [place] [address] Erythrocyte distribution width (RBC) [Ratio] 15.1 % High 11.5 - 14.5 [facility] Comment on above: Performed By: #### C BC ####[id number] [place] [address] Hematocrit (Bld) [Volume fraction] 22.2 % Low 41.0 - 52.0 [facility] Comment on above: Performed By: #### C BC ####[id number] [place] [address] Hemoglobin (Bld) [Mass/Vol] 7.7 g/dL Low 13.5 - 17.5 [facility] Comment on above: Performed By: #### C BC ####[id number] [place] [address] MCHC (RBC) [Mass/Vol] 34.7 g/dL Normal 32.0 - 36.0 [facility] Comment on above: Performed By: #### C BC ####[id number] [place] [address] MCV (RBC) [Entitic vol] 91 fL Normal 80 - 100 [facility] Comment on above: Performed By: #### C BC ####[id number] [place] [address] Nucleated RBC/100 WBC (Bld) [Ratio] 0.0 /100 WBC Normal 0.0-0.0 [facility] Comment on above: Performed By: #### C BC ####[id number] [place] [address] Platelets (Bld) [#/Vol] 145 10*3/uL Low 150 - 450 [facility] Comment on above: Performed By: #### C BC ####[id number] [place] [address] RBC (Bld) [#/Vol] 2.44 x10E12/L Low 4.50 - 5.90 [facility] Comment on above: Performed By: #### C BC ####[id number] [place] [address] WBC (Bld) [#/Vol] 6.5 10*3/uL Normal 4.4 - 11.3 [facility] Comment on above: Performed By: #### C BC ####[id number] [place] [address] Erythrocyte distribution width (RBC) [Ratio] 14.6 % High 11.5 - 14.5 [facility] Comment on above: Performed By: #### H EPFP #### [facility] [address] [place] [address] Hematocrit (Bld) [Volume fraction] 29.7 % Low 41.0 - 52.0 [facility] Comment on above: Performed By: #### H EPFP #### [facility] [address] [place] [address] Hemoglobin (Bld) [Mass/Vol] 10.0 g/dL Low 13.5 - 17.5 [facility] Comment on above: Performed By: #### H EPFP #### [facility] [address] [place] [address] MCHC (RBC) [Mass/Vol] 33.7 g/dL Normal 32.0 - 36.0 [facility] Comment on above: Performed By: #### H EPFP #### [facility] [address] [place] [address] MCV (RBC) [Entitic vol] 91 fL Normal 80 - 100 [facility] Comment on above: Performed By: #### H EPFP #### [facility] [address] [place] [address] Nucleated RBC/100 WBC (Bld) [Ratio] 0.0 /100 WBC Normal 0.0-0.0 [facility] Comment on above: Performed By: #### H EPFP #### [facility] [address] [place] [address] Platelets (Bld) [#/Vol] 185 10*3/uL Normal 150 - 450 [facility] Comment on above: Performed By: #### H EPFP #### [facility] [address] [place] [address] RBC (Bld) [#/Vol] 3.25 x10E12/L Low 4.50 - 5.90 [facility] Comment on above: Performed By: #### H EPFP #### [facility] [address] [place] [address] WBC (Bld) [#/Vol] 8.0 10*3/uL Normal 4.4 - 11.3 [facility] Comment on above: Performed By: #### H EPFP #### [facility] [address] [place] [address] Erythrocyte distribution width (RBC) [Ratio] 14.6 % High 11.5 - 14.5 [facility] Comment on above: Performed By: #### H EPFP #### [facility] [address] [place] [address] Hematocrit (Bld) [Volume fraction] 25.2 % Low 41.0 - 52.0 [facility] Comment on above: Performed By: #### H EPFP #### [facility] [address] [place] [address] Hemoglobin (Bld) [Mass/Vol] 8.7 g/dL Low 13.5 - 17.5 [facility] Comment on above: Performed By: #### H EPFP #### [facility] [address] [place] [address] MCHC (RBC) [Mass/Vol] 34.5 g/dL Normal 32.0 - 36.0 [facility] Comment on above: Performed By: #### H EPFP #### [facility] [address] [place] [address] MCV (RBC) [Entitic vol] 92 fL Normal 80 - 100 [facility] Comment on above: Performed By: #### H EPFP #### [facility] [address] [place] [address] Nucleated RBC/100 WBC (Bld) [Ratio] 0.0 /100 WBC Normal 0.0-0.0 [facility] Comment on above: Performed By: #### H EPFP #### [facility] [address] [place] [address] Platelets (Bld) [#/Vol] 212 10*3/uL Normal 150 - 450 [facility] Comment on above: Performed By: #### H EPFP #### [facility] [address] [place] [address] RBC (Bld) [#/Vol] 2.74 x10E12/L Low 4.50 - 5.90 [facility] Comment on above: Performed By: #### H EPFP #### [facility] [address] [place] [address] WBC (Bld) [#/Vol] 9.1 10*3/uL Normal 4.4 - 11.3 [facility] Comment on above: Performed By: #### H EPFP #### [facility] [address] [place] [address] Erythrocyte distribution width (RBC) [Ratio] 14.3 % Normal 11.5 - 14.5 [facility] Comment on above: Performed By: #### C BCDF #### [facility] [address] [place] [address] Hematocrit (Bld) [Volume fraction] 25.9 % Low 41.0 - 52.0 [facility] Comment on above: Performed By: #### C BCDF #### [facility] [address] [place] [address] Hemoglobin (Bld) [Mass/Vol] 9.0 g/dL Low 13.5 - 17.5 [facility] Comment on above: Performed By: #### C BCDF #### [facility] [address] [place] [address] MCHC (RBC) [Mass/Vol] 34.7 g/dL Normal 32.0 - 36.0 [facility] Comment on above: Performed By: #### C BCDF #### [facility] [address] [place] [address] MCV (RBC) [Entitic vol] 92 fL Normal 80 - 100 [facility] Comment on above: Performed By: #### C BCDF #### [facility] [address] [place] [address] Nucleated RBC/100 WBC (Bld) [Ratio] 0.0 /100 WBC Normal 0.0-0.0 [facility] Comment on above: Performed By: #### C BCDF #### [facility] [address] [place] [address] Platelets (Bld) [#/Vol] 214 10*3/uL Normal 150 - 450 [facility] Comment on above: Performed By: #### C BCDF #### [facility] [address] [place] [address] RBC (Bld) [#/Vol] 2.82 x10E12/L Low 4.50 - 5.90 [facility] Comment on above: Performed By: #### C BCDF #### [facility] [address] [place] [address] WBC (Bld) [#/Vol] 8.9 10*3/uL Normal 4.4 - 11.3 [facility] Comment on above: Performed By: #### C BCDF #### [facility] [address] [place] [address] Erythrocyte distribution width (RBC) [Ratio] 14.6 % High 11.5 - 14.5 [facility] Comment on above: Performed By: #### C OAGS #### [facility] [address] [place] [address] Hematocrit (Bld) [Volume fraction] 24.8 % Low 41.0 - 52.0 [facility] Comment on above: Performed By: #### C OAGS #### [facility] [address] [place] [address] Hemoglobin (Bld) [Mass/Vol] 9.1 g/dL Low 13.5 - 17.5 [facility] Comment on above: Performed By: #### C OAGS #### [facility] [address] [place] [address] MCHC (RBC) [Mass/Vol] 36.7 g/dL High 32.0 - 36.0 [facility] Comment on above: Performed By: #### C OAGS #### [facility] [address] [place] [address] MCV (RBC) [Entitic vol] 87 fL Normal 80 - 100 [facility] Comment on above: Performed By: #### C OAGS #### [facility] [address] [place] [address] Nucleated RBC/100 WBC (Bld) [Ratio] 0.0 /100 WBC Normal 0.0-0.0 [facility] Comment on above: Performed By: #### C OAGS #### [facility] [address] [place] [address] Platelets (Bld) [#/Vol] 210 10*3/uL Normal 150 - 450 [facility] Comment on above: Performed By: #### C OAGS #### [facility] [address] [place] [address] RBC (Bld) [#/Vol] 2.85 x10E12/L Low 4.50 - 5.90 [facility] Comment on above: Performed By: #### C OAGS #### [facility] [address] [place] [address] WBC (Bld) [#/Vol] 7.2 10*3/uL Normal 4.4 - 11.3 [facility] Comment on above: Performed By: #### C OAGS #### [facility] [address] [place] [address] COAGULATION SCREENon 019 aPTT Coag (Bld) [Time] 35 s Normal 28 - 38 [facility] Comment on above: Result Comment: Note new reference range as of 01/17/2018. THE APTT IS NO LONGER USED FOR MONITORING UNFRACTIONATED HEPARIN THERAPY. FOR MONITORING HEPARIN THERAPY, USE THE HEPARIN ASSAY. Performed By: #### C OAGS ####[id number] [place] [address] INR Coag (PPP) [Relative time] 1.1 {INR} Normal 0.9 - 1.1 [facility] Comment on above: Performed By: #### C OAGS ####[id number] [place] [address] PT Coag (PPP) [Time] 12.0 s Normal 9.7 - 12.7 [facility] Comment on above: Result Comment: Note new reference range as of 01/17/2018. Performed By: #### C OAGS ####[id number] [place] [address] aPTT Coag (Bld) [Time] 31 s Normal 28 - 38 [facility] Comment on above: Result Comment: Note new reference range as of 01/17/2018. THE APTT IS NO LONGER USED FOR MONITORING UNFRACTIONATED HEPARIN THERAPY. FOR MONITORING HEPARIN THERAPY, USE THE HEPARIN ASSAY. Performed By: #### M G #### [facility] [address] [place] [address] INR Coag (PPP) [Relative time] 1.1 {INR} Normal 0.9 - 1.1 [facility] Comment on above: Performed By: #### M G #### [facility] [address] [place] [address] PT Coag (PPP) [Time] 11.7 s Normal 9.7 - 12.7 [facility] Comment on above: Result Comment: Note new reference range as of 01/17/2018. Performed By: #### M G #### [facility] [address] [place] [address] aPTT Coag (Bld) [Time] 34 s Normal 28 - 38 [facility] Comment on above: Result Comment: Note new reference range as of 01/17/2018. THE APTT IS NO LONGER USED FOR MONITORING UNFRACTIONATED HEPARIN THERAPY. FOR MONITORING HEPARIN THERAPY, USE THE HEPARIN ASSAY. Performed By: #### H EPFP #### [facility] [address] [place] [address] INR Coag (PPP) [Relative time] 1.1 {INR} Normal 0.9 - 1.1 [facility] Comment on above: Performed By: #### H EPFP #### [facility] [address] [place] [address] PT Coag (PPP) [Time] 12.0 s Normal 9.7 - 12.7 [facility] Comment on above: Result Comment: Note new reference range as of 01/17/2018. Performed By: #### H EPFP #### [facility] [address] [place] [address] aPTT Coag (Bld) [Time] 33 s Normal 28 - 38 [facility] Comment on above: Result Comment: Note new reference range as of 01/17/2018. THE APTT IS NO LONGER USED FOR MONITORING UNFRACTIONATED HEPARIN THERAPY. FOR MONITORING HEPARIN THERAPY, USE THE HEPARIN ASSAY. Performed By: #### C BCDF #### [facility] [address] [place] [address] INR Coag (PPP) [Relative time] 1.1 {INR} Normal 0.9 - 1.1 [facility] Comment on above: Performed By: #### C BCDF #### [facility] [address] [place] [address] PT Coag (PPP) [Time] 12.1 s Normal 9.7 - 12.7 [facility] Comment on above: Result Comment: Note new reference range as of 01/17/2018. Performed By: #### C BCDF #### [facility] [address] [place] [address] aPTT Coag (Bld) [Time] 32 s Normal 28 - 38 [facility] Comment on above: Result Comment: Note new reference range as of 01/17/2018. THE APTT IS NO LONGER USED FOR MONITORING UNFRACTIONATED HEPARIN THERAPY. FOR MONITORING HEPARIN THERAPY, USE THE HEPARIN ASSAY. Performed By: #### C OAGS #### [facility] [address] [place] [address] INR Coag (PPP) [Relative time] 1.1 {INR} Normal 0.9 - 1.1 [facility] Comment on above: Performed By: #### C OAGS #### [facility] [address] [place] [address] PT Coag (PPP) [Time] 11.8 s Normal 9.7 - 12.7 [facility] Comment on above: Result Comment: Note new reference range as of 01/17/2018. Performed By: #### C OAGS #### [facility] [address] [place] [address] CREATINE KINASEon 04-17-2018 CK [Catalytic activity/Vol] 1170 U/L High 0 - 325 [facility] Comment on above: Performed By: #### C K ####[id number] [place] [address] Clinical Event Note-Renal pr ogress noteon 04-17-2018 Clinical Event Note-Renal progress note Event: Topic: Renal progress note Details: Patient is at OR this AM Labs reviewed - no Acidosis or HyperK UOP is still minimal ~ 250 cc FeNa < 1% Plan - Cont supportive measures and keep MAP>75 as posisble - Please check blabber pressures - r/o CS - UA with large blood and 6 RBCs - please check serum CK we will follow along Inés Henson MD, MS, SAMANTHA CHRISTINE Nephrology fellow P [phone] Electronic Signatures: Inés Henson (Resident)) (Signed 17-Apr-2018 12:46) Authored: Event Last Updated: 17-Apr-2018 12:46 by Inés Henson (Resident)) Normal [facility] ELECTROLYTE, URINE SPOTon CHLORIDE,URINE SPOT <15 Normal Not Established [facility] Comment on above: Performed By: #### H EPFP #### [facility] [address] [place] [address] CHLORIDE/CREAT RATIO SEE COMMENT Normal 23 - 275 [facility] Comment on above: Result Comment: One or more analytes used in this calculation is outside of the analytical measurement range. Calculation cannot be performed. Performed By: #### H EPFP #### [facility] [address] [place] [address] CREATININE,URINE 102.0 mg/dL Normal 20.0 - 370.0 [facility] Comment on above: Performed By: #### H EPFP #### [facility] [address] [place] [address] POT/CREAT RATIO 81 mmol/g Creat Normal Not Established [facility] Comment on above: Performed By: #### H EPFP #### [facility] [address] [place] [address] POTASSIUM,URINE SPOT 83 mmol/L Normal Not Established [facility] Comment on above: Performed By: #### H EPFP #### [facility] [address] [place] [address] Sodium (U) [Moles/Vol] 22 mmol/L Normal Not Established [facility] Comment on above: Performed By: #### H EPFP #### [facility] [address] [place] [address] SODIUM/CREAT RATIO 22 mmol/g Creat Normal Not Established [facility] Comment on above: Performed By: #### H EPFP #### [facility] [address] [place] [address] UREA NITROGEN,URINE 351 mg/dL Normal Not Established [facility] Comment on above: Performed By: #### H EPFP #### [facility] [address] [place] [address] UREA NITROGEN/CREAT RATIO 3.4 g/g Creat Normal Not Established [facility] Comment on above: Performed By: #### H EPFP #### [facility] [address] [place] [address] OSMOLALITY,URINE SPOT 358 mOsm/kg Normal 200 - 1200 [facility] Comment on above: Performed By: #### H EPFP #### [facility] [address] [place] [address] EMR ADDONon 04-17-2018 ADDON CONFIRMATION REQUEST REC'D Normal [facility] Comment on above: Performed By: #### M G #### [facility] [address] [place] [address] FIBRINOGENon 04-17-2018 FIBRINOGEN 571 mg/dL High 200 - 400 [facility] Comment on above: Performed By: #### M G #### [facility] [address] [place] [address] FIBRINOGEN 603 mg/dL High 200 - 400 [facility] Comment on above: Performed By: #### C BCDF #### [facility] [address] [place] [address] FIBRINOGEN 569 mg/dL High 200 - 400 [facility] Comment on above: Performed By: #### C OAGS #### [facility] [address] [place] [address] GLUCOSE-POCTon 04-17-2018 Glucose [Mass/Vol] 112 mg/dL High 74 - 99 [facility] Comment on above: Performed By: #### G VAISHALI ####[id number] [place] [address] Glucose [Mass/Vol] 135 mg/dL High 74 - 99 [facility] Comment on above: Performed By: #### G VAISHALI ####[id number] [place] [address] Glucose [Mass/Vol] 148 mg/dL High 74 - 99 [facility] Comment on above: Performed By: #### M G #### [facility] [address] [place] [address] Glucose [Mass/Vol] 145 mg/dL High 74 - 99 [facility] Comment on above: Performed By: #### C BCDF #### [facility] [address] [place] [address] Glucose [Mass/Vol] 128 mg/dL High 74 - 99 [facility] Comment on above: Performed By: #### C BCDF #### [facility] [address] [place] [address] History and Physical - Surgi vasiliy Update < 30 dayson 04-17-2018 History and Physical - Surgical Update < 30 days History & Physical Reviewed: I have reviewed the History and Physical dated: 17-Apr-2018 History and Physical reviewed and relevant findings noted. Patient examined to review pertinent physical findings.: No significant changes Home Medications Reviewed: no changes noted Allergies Reviewed: no changes noted This patient has been seen and discussed with the attending physician responsible for performing the procedure: yes Signatures/Attestation/Certif ication: Attending AttestationI saw and evaluated the patient. I personally obtained the thibodeaux and critical portions of the history and physical exam or was physically present for thibodeaux and critical portions performed by the resident/fellow. I reviewed the resident/fellows documentation and discussed the patient with the resident/fellow. I agree with the resident/fellows medical decision making as documented in the residents note. I personally evaluated the patient (as noted in the above attestation) on 17-Apr-2018 Attending Provider Inpatient Certification StatementI certify this patients need for inpatient care based on the above documentation including; the order to admit as inpatient, the anticipated length of stay, diagnosis, problem list and plan of care, and discharge plan. Electronic Signatures: Nolvia Colmenares) (Signed 20-Apr-2018 06:00) Authored: Signatures/Attestation/Certif ication Co-Signer: History & Physical Reviewed, Signatures/Attestation/Certif ication López Blake (Fellow)) (Signed 17-Apr-2018 07:12) Authored: History & Physical Reviewed, Signatures/Attestation/Certif ication Last Updated: 20-Apr-2018 06:00 by Nolvia Colmenares) Normal [facility] MAGNESIUMon 04-17-2018 Magnesium [Mass/Vol] 2.07 mg/dL Normal 1.60 - 2.40 [facility] Comment on above: Performed By: #### M G #### [facility] [address] [place] [address] Magnesium [Mass/Vol] 2.17 mg/dL Normal 1.60 - 2.40 [facility] Comment on above: Performed By: #### C BCDF #### [facility] [address] [place] [address] Magnesium [Mass/Vol] 2.06 mg/dL Normal 1.60 - 2.40 [facility] Comment on above: Performed By: #### C OAGS #### [facility] [address] [place] [address] OPERATIVE REPORTon 9 OPERATIVE REPORT 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 POSTOPERATIVE DIAGNOSIS: Hemoperitoneum and patchy ischemia of the small bowel. OPERATION/PROCEDURE: Exploratory laparotomy, evacuation of hematoma, omentectomy, placement of ABThera wound VAC. SURGEON: Nolvia Colmenares MD DIRECTOR GLOBAL SALES(S): 1. Dr. Blake. 2. Dr. Aragon ANESTHESIA: General endotracheal. 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 The patient has had postoperative intraabdominal bleed that has not responded appropriately to transfusion. A CT scan obtained earlier today revealed a right abdominal hematoma as well as pneumatosis of the jejunum. The patient was brought to the operating room for exploratory laparotomy. TECHNIQUE: The patient was brought to the operating room, was placed on the operating table in supine position. After induction of general endotracheal anesthesia, the skin of the abdomen was prepped and draped in usual sterile fashion. Surgical time-out was performed. The peritoneal cavity was then entered by opening the previous midline closure. There was a hematoma present in the right upper quadrant, and this was evacuated. There was some oozing from the edge of the omentum in the right upper quadrant, but no other obvious site of bleeding. The omentum was resected, and this was sent to Pathology. Exploration of the abdomen revealed that the small bowel had patchy areas of ischemia. Most of the abnormality was within the jejunum. The ileocolic anastomosis was inspected in the right upper quadrant and it was viable and intact with no evidence of anastomotic leak. There were no enteric contents found within the abdomen. The clinical picture was most consistent with low flow from hypotension and vasopressors that the patient had been on prior to the operating room. We did consult Vascular Surgery intraoperatively, who inspected the superior mesenteric artery and confirmed good pulse and good Doppler signal in the main vessel as well as in more distal mesenteric vessels. As none of the areas of ischemia were full thickness,we elected to manage the situation with temporary abdominal closure with plans for returning to the operating room for second-look laparotomy in 48 hours. Therefore, the abdomen was inspected for hemostasis at the conclusion of the procedure, and this was found be adequate. Sponge and instrument counts were confirmed as correct. The abdomen was irrigated with warm saline solution and then an ABThera wound VAC device was placed. The patient tolerated the above procedure and was transferred back to the Surgical Intensive Care Unit in serious condition. ESTIMATED BLOOD LOSS: 300 cc. SPECIMENS: None. DRAINS: None. COMPLICATIONS: None. ATTESTATION: Dr. Nolvia Colmenares was the operating surgeon, who performed the entire procedure as described above. Dr. Blake and Dr. Aragon were the surgical assistants. Nolvia Colmenares MD EST TT: 04/22/2018 01:22 PM EST DICTATION NUMBER: [id number] [facility] JOB NUMBER: [id number] CC: Quentin Rangel, [id number] Electronically Signed by Dr. Nolvia Colmenares 05/03/2018 02:53:46 PM Normal [facility] PLASMAon 04-17-2018 PLASMA ORDER RECD Normal [facility] Comment on above: Performed By: #### H EPFP #### [facility] [address] [place] [address] RENAL FUNCTION PANELon 04-17 Albumin [Mass/Vol] 3.1 g/dL Low 3.4 - 5.0 [facility] Comment on above: Performed By: #### R ENAL ####[id number] [place] [address] Anion gap [Moles/Vol] 19 mmol/L Normal 10 - 20 [facility] Comment on above: Performed By: #### R ENAL ####[id number] [place] [address] Calcium [Mass/Vol] 7.4 mg/dL Low 8.6 - 10.6 [facility] Comment on above: Performed By: #### R ENAL ####[id number] [place] [address] Chloride [Moles/Vol] 97 mmol/L Low 98 - 107 [facility] Comment on above: Performed By: #### R ENAL ####[id number] [place] [address] Creatinine [Mass/Vol] 4.18 mg/dL High 0.50 - 1.30 [facility] Comment on above: Performed By: #### R ENAL ####[id number] [place] [address] GFR- AM. 17 mL/min/1.73m2 Abnormal >60 [facility] Comment on above: Result Comment: CALC ULATIONS OF ESTIMATED GFR ARE PERFORMED USING THE MDRD STUDY EQUATION FOR THE IDMS-TRACEABLE CREATININE METHODS. CLIN CHEM 2007;53:766-72 Performed By: #### R ENAL ####[id number] [place] [address] GFR-NON AM. 14 mL/min/1.73m2 Abnormal >60 [facility] Comment on above: Performed By: #### R ENAL ####[id number] [place] [address] Glucose [Mass/Vol] 126 mg/dL High 74 - 99 [facility] Comment on above: Performed By: #### R ENAL ####[id number] [place] [address] [address] HCO3 (Bld) [Moles/Vol] 26 mmol/L Normal 21 - 32 [facility] Comment on above: Performed By: #### R ENAL ####[id number] [place] [address] Phosphate [Mass/Vol] 6.1 mg/dL High 2.5 - 4.9 [facility] Comment on above: Result Comment: The performance characteristics of phosphorus testing in heparinized plasma have been validated by the individual laboratory site where testing is performed. Testing on heparinized plasma is not approved by the FDA; however, such approval is not necessary. Performed By: #### R ENAL ####[id number] [place] [address] Potassium [Moles/Vol] 4.4 mmol/L Normal 3.5 - 5.3 [facility] Comment on above: Performed By: #### R ENAL ####[id number] [place] [address] Sodium [Moles/Vol] 138 mmol/L Normal 136 - 145 [facility] Comment on above: Performed By: #### R ENAL ####[id number] [place] [address] Urea nitrogen [Mass/Vol] 59 mg/dL High 6 - 23 [facility] Comment on above: Performed By: #### R ENAL ####[id number] [place] [address] Albumin [Mass/Vol] 2.6 g/dL Low 3.4 - 5.0 [facility] Comment on above: Performed By: #### M G #### [facility] [address] [place] [address] Anion gap [Moles/Vol] 18 mmol/L Normal 10 - 20 [facility] Comment on above: Performed By: #### M G #### [facility] [address] [place] [address] Calcium [Mass/Vol] 7.2 mg/dL Low 8.6 - 10.6 [facility] Comment on above: Performed By: #### M G #### [facility] [address] [place] [address] Chloride [Moles/Vol] 95 mmol/L Low 98 - 107 [facility] Comment on above: Performed By: #### M G #### [facility] [address] [place] [address] Creatinine [Mass/Vol] 4.46 mg/dL High 0.50 - 1.30 [facility] Comment on above: Performed By: #### M G #### [facility] [address] [place] [address] GFR- AM. 16 mL/min/1.73m2 Abnormal >60 [facility] Comment on above: Result Comment: CALC ULATIONS OF ESTIMATED GFR ARE PERFORMED USING THE MDRD STUDY EQUATION FOR THE IDMS-TRACEABLE CREATININE METHODS. CLIN CHEM 2007;53:766-72 Performed By: #### M G #### [facility] [address] [place] [address] GFR-NON AM. 13 mL/min/1.73m2 Abnormal >60 [facility] Comment on above: Performed By: #### M G #### [facility] [address] [place] [address] Glucose [Mass/Vol] 150 mg/dL High 74 - 99 [facility] Comment on above: Performed By: #### M G #### [facility] [address] [place] [address] HCO3 (Bld) [Moles/Vol] 28 mmol/L Normal 21 - 32 [facility] Comment on above: Performed By: #### M G #### [facility] [address] [place] [address] Phosphate [Mass/Vol] 7.1 mg/dL High 2.5 - 4.9 [facility] Comment on above: Result Comment: The performance characteristics of phosphorus testing in heparinized plasma have been validated by the individual laboratory site where testing is performed. Testing on heparinized plasma is not approved by the FDA; however, such approval is not necessary. Performed By: #### M G #### [facility] [address] [place] [address] Potassium [Moles/Vol] 4.7 mmol/L Normal 3.5 - 5.3 [facility] Comment on above: Performed By: #### M G #### [facility] [address] [place] [address] Sodium [Moles/Vol] 136 mmol/L Normal 136 - 145 [facility] Comment on above: Performed By: #### M G #### [facility] [address] [place] [address] Urea nitrogen [Mass/Vol] 61 mg/dL High 6 - 23 [facility] Comment on above: Performed By: #### M G #### [facility] [address] [place] [address] Albumin [Mass/Vol] 2.7 g/dL Low 3.4 - 5.0 [facility] Comment on above: Performed By: #### C BCDF #### [facility] [address] [place] [address] Anion gap [Moles/Vol] 20 mmol/L Normal 10 - 20 [facility] Comment on above: Performed By: #### C BCDF #### [facility] [address] [place] [address] Calcium [Mass/Vol] 7.6 mg/dL Low 8.6 - 10.6 [facility] Comment on above: Performed By: #### C BCDF #### [facility] [address] [place] [address] Chloride [Moles/Vol] 94 mmol/L Low 98 - 107 [facility] Comment on above: Performed By: #### C BCDF #### [facility] [address] [place] [address] Creatinine [Mass/Vol] 4.68 mg/dL High 0.50 - 1.30 [facility] Comment on above: Performed By: #### C BCDF #### [facility] [address] [place] [address] GFR- AM. 16 mL/min/1.73m2 Abnormal >60 [facility] Comment on above: Result Comment: CALC ULATIONS OF ESTIMATED GFR ARE PERFORMED USING THE MDRD STUDY EQUATION FOR THE IDMS-TRACEABLE CREATININE METHODS. CLIN CHEM 2007;53:766-72 Performed By: #### C BCDF #### [facility] [address] [place] [address] GFR-NON AM. 13 mL/min/1.73m2 Abnormal >60 [facility] Comment on above: Performed By: #### C BCDF #### [facility] [address] [place] [address] Glucose [Mass/Vol] 131 mg/dL High 74 - 99 [facility] Comment on above: Performed By: #### C BCDF #### [facility] [address] [place] [address] HCO3 (Bld) [Moles/Vol] 25 mmol/L Normal 21 - 32 [facility] Comment on above: Performed By: #### C BCDF #### [facility] [address] [place] [address] Phosphate [Mass/Vol] 5.8 mg/dL High 2.5 - 4.9 [facility] Comment on above: Result Comment: The performance characteristics of phosphorus testing in heparinized plasma have been validated by the individual laboratory site where testing is performed. Testing on heparinized plasma is not approved by the FDA; however, such approval is not necessary. Performed By: #### C BCDF #### [facility] [address] [place] [address] Potassium [Moles/Vol] 5.0 mmol/L Normal 3.5 - 5.3 [facility] Comment on above: Performed By: #### C BCDF #### [facility] [address] [place] [address] Sodium [Moles/Vol] 134 mmol/L Low 136 - 145 [facility] Comment on above: Performed By: #### C BCDF #### [facility] [address] [place] [address] Urea nitrogen [Mass/Vol] 61 mg/dL High 6 - 23 [facility] Comment on above: Performed By: #### C BCDF #### [facility] [address] [place] [address] Albumin [Mass/Vol] 2.9 g/dL Low 3.4 - 5.0 [facility] Comment on above: Performed By: #### C BCDF #### [facility] [address] [place] [address] Anion gap [Moles/Vol] 21 mmol/L High 10 - 20 [facility] Comment on above: Performed By: #### C BCDF #### [facility] [address] [place] [address] Calcium [Mass/Vol] 7.8 mg/dL Low 8.6 - 10.6 [facility] Comment on above: Performed By: #### C BCDF #### [facility] [address] [place] [address] Chloride [Moles/Vol] 94 mmol/L Low 98 - 107 [facility] Comment on above: Performed By: #### C BCDF #### [facility] [address] [place] [address] Creatinine [Mass/Vol] 4.70 mg/dL High 0.50 - 1.30 [facility] Comment on above: Performed By: #### C BCDF #### [facility] [address] [place] [address] GFR- AM. 16 mL/min/1.73m2 Abnormal >60 [facility] Comment on above: Result Comment: CALC ULATIONS OF ESTIMATED GFR ARE PERFORMED USING THE MDRD STUDY EQUATION FOR THE IDMS-TRACEABLE CREATININE METHODS. CLIN CHEM 2007;53:766-72 Performed By: #### C BCDF #### [facility] [address] [place] [address] GFR-NON AM. 13 mL/min/1.73m2 Abnormal >60 [facility] Comment on above: Performed By: #### C BCDF #### [facility] [address] [place] [address] Glucose [Mass/Vol] 141 mg/dL High 74 - 99 [facility] Comment on above: Performed By: #### C BCDF #### [facility] [address] [place] [address] HCO3 (Bld) [Moles/Vol] 24 mmol/L Normal 21 - 32 [facility] Comment on above: Performed By: #### C BCDF #### [facility] [address] [place] [address] Phosphate [Mass/Vol] 6.1 mg/dL High 2.5 - 4.9 [facility] Comment on above: Result Comment: The performance characteristics of phosphorus testing in heparinized plasma have been validated by the individual laboratory site where testing is performed. Testing on heparinized plasma is not approved by the FDA; however, such approval is not necessary. Performed By: #### C BCDF #### [facility] [address] [place] [address] Potassium [Moles/Vol] 5.0 mmol/L Normal 3.5 - 5.3 [facility] Comment on above: Performed By: #### C BCDF #### [facility] [address] [place] [address] Sodium [Moles/Vol] 134 mmol/L Low 136 - 145 [facility] Comment on above: Performed By: #### C BCDF #### [facility] [address] [place] [address] Urea nitrogen [Mass/Vol] 60 mg/dL High 6 - 23 [facility] Comment on above: Performed By: #### C BCDF #### [facility] [address] [place] [address] Albumin [Mass/Vol] 3.0 g/dL Low 3.4 - 5.0 [facility] Comment on above: Performed By: #### C OAGS #### [facility] [address] [place] [address] Anion gap [Moles/Vol] 19 mmol/L Normal 10 - 20 [facility] Comment on above: Performed By: #### C OAGS #### [facility] [address] [place] [address] Calcium [Mass/Vol] 8.0 mg/dL Low 8.6 - 10.6 [facility] Comment on above: Performed By: #### C OAGS #### [facility] [address] [place] [address] Chloride [Moles/Vol] 96 mmol/L Low 98 - 107 [facility] Comment on above: Performed By: #### C OAGS #### [facility] [address] [place] [address] Creatinine [Mass/Vol] 4.43 mg/dL High 0.50 - 1.30 [facility] Comment on above: Performed By: #### C OAGS #### [facility] [address] [place] [address] GFR- AM. 16 mL/min/1.73m2 Abnormal >60 [facility] Comment on above: Result Comment: CALC ULATIONS OF ESTIMATED GFR ARE PERFORMED USING THE MDRD STUDY EQUATION FOR THE IDMS-TRACEABLE CREATININE METHODS. CLIN CHEM 2007;53:766-72 Performed By: #### C OAGS #### [facility] [address] [place] [address] GFR-NON AM. 13 mL/min/1.73m2 Abnormal >60 [facility] Comment on above: Performed By: #### C OAGS #### [facility] [address] [place] [address] Glucose [Mass/Vol] 134 mg/dL High 74 - 99 [facility] Comment on above: Performed By: #### C OAGS #### [facility] [address] [place] [address] HCO3 (Bld) [Moles/Vol] 23 mmol/L Normal 21 - 32 [facility] Comment on above: Performed By: #### C OAGS #### [facility] [address] [place] [address] Phosphate [Mass/Vol] 5.9 mg/dL High 2.5 - 4.9 [facility] Comment on above: Result Comment: The performance characteristics of phosphorus testing in heparinized plasma have been validated by the individual laboratory site where testing is performed. Testing on heparinized plasma is not approved by the FDA; however, such approval is not necessary. Performed By: #### C OAGS #### [facility] [address] [place] [address] Potassium [Moles/Vol] 5.0 mmol/L Normal 3.5 - 5.3 [facility] Comment on above: Performed By: #### C OAGS #### [facility] [address] [place] [address] Sodium [Moles/Vol] 133 mmol/L Low 136 - 145 [facility] Comment on above: Performed By: #### C OAGS #### [facility] [address] [place] [address] Urea nitrogen [Mass/Vol] 53 mg/dL High 6 - 23 [facility] Comment on above: Performed By: #### C OAGS #### [facility] [address] [place] [address] REQUEST-LEUKOREDUCED RED DANNY LSon 04-17-2018 REQUEST-LEUKOREDU MABEL RED CELLS ORDER RECD Normal [facility] Comment on above: Performed By: #### O MATTING PRESS TENDER ####[id number] [place] [address] REQUEST-LEUKOREDU MABEL RED CELLS ORDER RECD Normal [facility] Comment on above: Performed By: #### O MATTING PRESS TENDER ####[id number] [place] [address] TH ABDOMEN AP VIEWon 019 TH ABDOMEN AP VIEW Patient Name: ADEN PATEL STUDY: ABDOMEN AP VIEW; 04/17/2018 1:30 am INDICATION: Signs/Symptoms: s/p NGT placement. COMPARISON: 04/17/2018 at 1:30 a.m. ACCESSION NUMBER(S): [id number] ORDERING CLINICIAN: AGUUSTO TRAYLOR FINDINGS: Limited single view of the abdomen is provided for interpretation. Interval placement of enteric tube, tip of which overlies expected location of the gastric body. Left IJ central line overlies the lower SVC. Cardiomediastinal silhouette is enlarged. The aorta is tortuous in appearance. There are low lung volumes with bronchovascular crowding. There are trace bilateral pleural effusions, with associated atelectasis. There is no sizable pneumothorax. Several gas-filled loops of bowel are visualized in the upper abdomen. IMPRESSION: 1. Enteric tube courses inferior to the diaphragm, with tip overlying the expected location of the gastric body. 2. Low lung volumes with bronchovascular crowding and small bilateral pleural effusions. No sizable pneumothorax. I personally reviewed the images/study and Dr. Javier's interpretation and I agree with the findings as stated. This study was performed , analyzed and interpreted at [facility], [place], [place]. Electronically signed by: DAYNE HUBBARD MD Normal [facility] TH CHEST 1 VIEWon 04-17-2018 TH CHEST 1 VIEW Patient Name: ADEN PATEL STUDY: CHEST 1 VIEW; 04/17/2018 11:18 am INDICATION: Signs/Symptoms: ETT placement. COMPARISON: 04/17/2018 ACCESSION NUMBER(S): [id number] ORDERING CLINICIAN: MELITA ALBARRAN FINDINGS: ET tube is terminating 1.5 cm from the luis. Enteric tube is in place with the tip not included. Left IJ central venous catheter is projecting over the cavoatrial junction. The cardiac silhouette size is stable.There is bilateral pleural effusion, left more than right. Low lung volumes and bronchovascular crowding with no jonny edema. No sizable pneumothorax. No acute osseous abnormality. IMPRESSION: 1. Bibasilar pleural effusion and atelectasis, left more than right. 2. No sizable pneumothorax or jonny edema. 3. Medical appliances as described above. Electronically signed by: DAYNE HUBBARD MD Normal [facility] TH CHEST 1 VIEW Patient Name: ADEN PATEL STUDY: CHEST 1 VIEW; 04/17/2018 6:51 am INDICATION: Signs/Symptoms: SICU AM rounds. COMPARISON: 04/16/2018 ACCESSION NUMBER(S): [id number] ORDERING CLINICIAN: AUGUSTO TRAYLOR FINDINGS: Left IJ central venous catheter is projecting over the distal SVC. Enteric tube is in place with the tip not included. The cardiomediastinal silhouette is enlarged, unchanged. There is bilateral pleural effusion and atelectasis. No edema or pneumothorax. No acute osseous abnormality. IMPRESSION: 1. Significant interval change. 2. Persistent bibasilar pleural effusion and atelectasis. Medical appliances as described above. Electronically signed by: DAYNE HUBBARD MD Normal [facility] TYPE + SCREENon 04-17-2018 ABO TYPE A Normal [facility] Comment on above: Performed By: #### C OAGS #### [facility] [address] [place] [address] RH TYPE Positive Normal [facility] Comment on above: Performed By: #### C OAGS #### [facility] [address] [place] [address] UA MICROSCOPICon 04-17-2018 HYALINE CAST 2+ /LPF Abnormal [facility] Comment on above: Performed By: #### H EPFP #### [facility] [address] [place] [address] MUCUS 1+ /LPF Normal [facility] Comment on above: Performed By: #### H EPFP #### [facility] [address] [place] [address] RBC 6 /HPF Abnormal 0-5 [facility] Comment on above: Performed By: #### H EPFP #### [facility] [address] [place] [address] SQUAMOUS EPITH. CELLS 1 /HPF Normal [facility] Comment on above: Performed By: #### H EPFP #### [facility] [address] [place] [address] WBC 1 /HPF Normal 0-5 [facility] Comment on above: Performed By: #### H EPFP #### [facility] [address] [place] [address] URINALYSISon 04-17-2018 Appearance (U) HAZY Normal CLEAR [facility] Comment on above: Performed By: #### H EPFP #### [facility] [address] [place] [address] Bilirubin (U) [Mass/Vol] Negative Normal NEGATIVE [facility] Comment on above: Performed By: #### H EPFP #### [facility] [address] [place] [address] BLOOD LARGE (3+) Abnormal NEGATIVE [facility] Comment on above: Performed By: #### H EPFP #### [facility] [address] [place] [address] Color (U) YELLOW Normal STRAW,YELLOW [facility] Comment on above: Performed By: #### H EPFP #### [facility] [address] [place] [address] Glucose [Mass/Vol] Negative Normal NEGATIVE [facility] Comment on above: Performed By: #### H EPFP #### [facility] [address] [place] [address] Ketones Ql (U) Negative Normal NEGATIVE [facility] Comment on above: Performed By: #### H EPFP #### [facility] [address] [place] [address] Leukocyte esterase Test strip Ql (U) Negative Normal NEGATIVE [facility] Comment on above: Performed By: #### H EPFP #### [facility] [address] [place] [address] Nitrite Ql (U) Negative Normal NEGATIVE [facility] Comment on above: Performed By: #### H EPFP #### [facility] [address] [place] [address] pH (Bld) 5.0 Normal 5.0 - 8.0 [facility] Comment on above: Performed By: #### H EPFP #### [facility] [address] [place] [address] Protein (U) [Mass/Vol] 30 (1+) Abnormal NEGATIVE [facility] Comment on above: Performed By: #### H EPFP #### [facility] [address] [place] [address] Specific gravity (U) [Rel density] 1.016 Normal 1.005 - 1.035 [facility] Comment on above: Performed By: #### H EPFP #### [facility] [address] [place] [address] Urobilinogen Qn (U) <2.0 Normal 0.0 - 1.9 [facility] Comment on above: Performed By: #### H EPFP #### [facility] [address] [place] [address] AMYLASEon 04-16-2018 Amylase [Catalytic activity/Vol] U/L Low 29 - 103 [facility] Comment on above: Performed By: #### A MY ####[id number] [place] [address] ARTERIAL FULL PANELon 2018 Anion gap [Moles/Vol] 17 mmol/L Normal 10 - 25 [facility] Comment on above: Performed By: #### A FPA3 ####[id number] [place] [address] BASE EXCESS-BLOOD -0.1 mmol/L Normal -2.0 - 3.0 [facility] Comment on above: Performed By: #### A FPA3 ####[id number] [place] [address] CALCIUM,IONIZED 1.01 mmol/L Low 1.10 - 1.33 [facility] Comment on above: Performed By: #### A FPA3 ####[id number] [place] [address] Chloride [Moles/Vol] 94 mmol/L Low 98 - 107 [facility] Comment on above: Performed By: #### A FPA3 ####[id number] [place] [address] Glucose [Mass/Vol] 135 mg/dL High 74 - 99 [facility] Comment on above: Performed By: #### A FPA3 ####[id number] [place] [address] Hematocrit (Bld) [Volume fraction] 27.0 % Low 41.0 - 52.0 [facility] Comment on above: Performed By: #### A FPA3 ####[id number] [place] [address] HGB,CALCULATED 9.2 g/dL Low 13.5 - 17.5 [facility] Comment on above: Performed By: #### A FPA3 ####[id number] [place] [address] Lactate [Moles/Vol] 2.4 mmol/L High 0.4 - 2.0 [facility] Comment on above: Performed By: #### A FPA3 ####[id number] [place] [address] Oxygen (Bld) [Partial pressure] 51 mm[Hg] Low 85 - 95 [facility] Comment on above: Performed By: #### A FPA3 ####[id number] [place] [address] PCO2 35 mmHg Low 38 - 42 [facility] Comment on above: Performed By: #### A FPA3 ####[id number] [place] [address] pH (Bld) 7.44 [pH] High 7.38 - 7.42 [facility] Comment on above: Performed By: #### A FPA3 ####[id number] [place] [address] Potassium [Moles/Vol] 5.0 mmol/L Normal 3.5 - 5.3 [facility] Comment on above: Performed By: #### A FPA3 ####[id number] [place] [address] RBC (Bld) [#/Vol] 23.8 mmol/L Normal 22.0 - 26.0 [facility] Comment on above: Performed By: #### A FPA3 ####[id number] [place] [address] SO2 90 % Low 94 - 100 [facility] Comment on above: Performed By: #### A FPA3 ####[id number] [place] [address] Sodium [Moles/Vol] 130 mmol/L Low 136 - 145 [facility] Comment on above: Performed By: #### A FPA3 ####[id number] [place] [address] Anion gap [Moles/Vol] 14 mmol/L Normal 10 - 25 [facility] Comment on above: Performed By: #### A FPA3 ####[id number] [place] [address] BASE EXCESS-BLOOD -3.9 mmol/L Low -2.0 - 3.0 [facility] Comment on above: Performed By: #### A FPA3 ####[id number] [place] [address] CALCIUM,IONIZED 1.06 mmol/L Low 1.10 - 1.33 [facility] Comment on above: Performed By: #### A FPA3 ####[id number] [place] [address] Chloride [Moles/Vol] 97 mmol/L Low 98 - 107 [facility] Comment on above: Performed By: #### A FPA3 ####[id number] [place] [address] Glucose [Mass/Vol] 131 mg/dL High 74 - 99 [facility] Comment on above: Performed By: #### A FPA3 ####[id number] [place] [address] Hematocrit (Bld) [Volume fraction] 26.0 % Low 41.0 - 52.0 [facility] Comment on above: Performed By: #### A FPA3 ####[id number] [place] [address] HGB,CALCULATED 8.8 g/dL Low 13.5 - 17.5 [facility] Comment on above: Performed By: #### A FPA3 ####[id number] [place] [address] Lactate [Moles/Vol] 3.1 mmol/L High 0.4 - 2.0 [facility] Comment on above: Performed By: #### A FPA3 ####[id number] [place] [address] Oxygen (Bld) [Partial pressure] 55 mm[Hg] Low 85 - 95 [facility] Comment on above: Performed By: #### A FPA3 ####[id number] [place] [address] PCO2 40 mmHg Normal 38 - 42 [facility] Comment on above: Performed By: #### A FPA3 ####[id number] [place] [address] pH (Bld) 7.34 [pH] Low 7.38 - 7.42 [facility] Comment on above: Performed By: #### A FPA3 ####[id number] [place] [address] Potassium [Moles/Vol] 4.6 mmol/L Normal 3.5 - 5.3 [facility] Comment on above: Performed By: #### A FPA3 ####[id number] [place] [address] RBC (Bld) [#/Vol] 21.6 mmol/L Low 22.0 - 26.0 [facility] Comment on above: Performed By: #### A FPA3 ####[id number] [place] [address] SO2 92 % Low 94 - 100 [facility] Comment on above: Performed By: #### A FPA3 ####[id number] [place] [address] Sodium [Moles/Vol] 128 mmol/L Low 136 - 145 [facility] Comment on above: Performed By: #### A FPA3 ####[id number] [place] [address] Anion gap [Moles/Vol] 17 mmol/L Normal 10 - 25 [facility] Comment on above: Order Comment: CRIT LACTN [facility]/16[facility] 12:12 Performed By: #### A FPA3 ####[id number] [place] [address] BASE EXCESS-BLOOD -7.5 mmol/L Low -2.0 - 3.0 [facility] Comment on above: Order Comment: [facility] [facility], 04/16/2018 12:12 Performed By: #### A FPA3 ####[id number] [place] [address] CALCIUM,IONIZED 1.06 mmol/L Low 1.10 - 1.33 [facility] Comment on above: Order Comment: CRIT LACTN HGBNC [facility] 04/16[facility] 12:12 Performed By: #### A FPA3 ####[id number] [place] [address] Chloride [Moles/Vol] 98 mmol/L Normal 98 - 107 [facility] Comment on above: Order Comment: CRIT LACTN HGBNC CALLED RB TO GM CURTISC, 04/16/2018 12:12 Performed By: #### A FPA3 ####[id number] [place] [address] Glucose [Mass/Vol] 155 mg/dL High 74 - 99 [facility] Comment on above: Order Comment: CRIT LACTN HGBNC CALLED RB TO GM CURTISC, 04/16/2018 12:12 Performed By: #### A FPA3 ####[id number] [place] [address] Hematocrit (Bld) [Volume fraction] 18.0 % Low 41.0 - 52.0 [facility] Comment on above: Order Comment: CRIT LACTN HGBNC CALLED RB TO GM CURTISC, 04/16/2018 12:12 Performed By: #### A FPA3 ####[id number] [place] [address] HGB,CALCULATED 6.1 g/dL Critically low 13.5 - 17.5 [facility] Comment on above: Order Comment: CRIT LACTN HGBNC CALLED RB TO GM CURTISC, 04/16/2018 12:12 Result Comment: CRIT LACTN HGBNC CALLED RB TO GM CURTISC, 04/16/2018 12:12 Performed By: #### A FPA3 ####[id number] [place] [address] Lactate [Moles/Vol] 5.8 mmol/L Critically high 0.4 - 2.0 [facility] Comment on above: Order Comment: CRIT LACTN HGBNC CALLED RB TO GM CLARKECIC, 04/16/2018 12:12 Result Comment: CRIT LACTN HGBNC CALLED RB TO GM CLARKECIC, 04/16/2018 12:12 Performed By: #### A FPA3 ####[id number] [place] [address] Oxygen (Bld) [Partial pressure] 57 mm[Hg] Low 85 - 95 [facility] Comment on above: Order Comment: CRIT LACTN HGBNC CALLED RB TO GM CURTISC, 04/16/2018 12:12 Performed By: #### A FPA3 ####[id number] [place] [address] PCO2 36 mmHg Low 38 - 42 [facility] Comment on above: Order Comment: CRIT LACTN HGBNC CALLED RB TO GM CURTISC, 04/16/2018 12:12 Performed By: #### A FPA3 ####[id number] [place] [address] pH (Bld) 7.31 [pH] Low 7.38 - 7.42 [facility] Comment on above: Order Comment: CRIT LACTN HGBNC CALLED RB TO GM CURTISC, 04/16/2018 12:12 Performed By: #### A FPA3 ####[id number] [place] [address] Potassium [Moles/Vol] 4.5 mmol/L Normal 3.5 - 5.3 [facility] Comment on above: Order Comment: CRIT LACTN HGBNC CALLED RB TO GM CURTISC, 04/16/2018 12:12 Performed By: #### A FPA3 ####[id number] [place] [address] RBC (Bld) [#/Vol] 18.1 mmol/L Low 22.0 - 26.0 [facility] Comment on above: Order Comment: CRIT LACTN HGBNC CALLED RB TO GM CURTISC, 04/16/2018 12:12 Performed By: #### A FPA3 ####[id number] [place] [address] SO2 93 % Low 94 - 100 [facility] Comment on above: Order Comment: CRIT LACTN HGBNC CALLED RB TO GM CURTISC, 04/16/2018 12:12 Performed By: #### A FPA3 ####[id number] [place] [address] Sodium [Moles/Vol] 129 mmol/L Low 136 - 145 [facility] Comment on above: Order Comment: CHUYITA TREJO HGBNC CALLED RB TO GM JACINTO, 04/16/2018 12:12 Performed By: #### A FPA3 ####[id number] [place] [address] BASIC METABOLIC PANELon 03-29 Anion gap [Moles/Vol] Canceled Normal [facility] Comment on above: Order Comment: TEST BASIC METABOLIC PANEL WAS CANCELLED, 04/15/2018 04:45 ?Cancel Reason:Cancelled. Performed By: #### B MP ####[id number] [place] [address] Order Comment: TEST BASIC METABOLIC PANEL WAS CANCELLED, 04/16/2018 10:43 ?Cancel Reason:Discontinued. Calcium [Mass/Vol] Canceled Normal [facility] Comment on above: Order Comment: TEST BASIC METABOLIC PANEL WAS CANCELLED, 04/16/2018 10:43 ?Cancel Reason:Discontinued. Performed By: #### B MP ####[id number] [place] [address] Order Comment: TEST BASIC METABOLIC PANEL WAS CANCELLED, 04/15/2018 04:45 ?Cancel Reason:Cancelled. Chloride [Moles/Vol] Canceled Normal [facility] Comment on above: Order Comment: TEST BASIC METABOLIC PANEL WAS CANCELLED, 04/16/2018 10:43 ?Cancel Reason:Discontinued. Performed By: #### B MP ####[id number] [place] [address] Order Comment: TEST BASIC METABOLIC PANEL WAS CANCELLED, 04/15/2018 04:45 ?Cancel Reason:Cancelled. Creatinine [Mass/Vol] Canceled Normal [facility] Comment on above: Order Comment: TEST BASIC METABOLIC PANEL WAS CANCELLED, 04/16/2018 10:43 ?Cancel Reason:Discontinued. Performed By: #### B MP ####[id number] [place] [address] Order Comment: TEST BASIC METABOLIC PANEL WAS CANCELLED, 04/15/2018 04:45 ?Cancel Reason:Cancelled. GFR- AM. Canceled Normal [facility] Comment on above: Order Comment: TEST BASIC METABOLIC PANEL WAS CANCELLED, 04/15/2018 04:45 ?Cancel Reason:Cancelled. Result Comment: CALC ULATIONS OF ESTIMATED GFR ARE PERFORMED USING THE MDRD STUDY EQUATION FOR THE IDMS-TRACEABLE CREATININE METHODS. CLIN CHEM 2007;53:766-72 Performed By: #### B MP ####[id number] [id number] Order Comment: TEST BASIC METABOLIC PANEL WAS CANCELLED, 04/16/2018 10:43 ?Cancel Reason:Discontinued. GFR-NON AM. Canceled Normal [facility] Comment on above: Order Comment: TEST BASIC METABOLIC PANEL WAS CANCELLED, 04/16/2018 10:43 ?Cancel Reason:Discontinued. Performed By: #### B MP ####[id number] [place] [address] Order Comment: TEST BASIC METABOLIC PANEL WAS CANCELLED, 04/15/2018 04:45 ?Cancel Reason:Cancelled. Glucose [Mass/Vol] Canceled Normal [facility] Comment on above: Order Comment: TEST BASIC METABOLIC PANEL WAS CANCELLED, 04/15/2018 04:45 ?Cancel Reason:Cancelled. Performed By: #### B MP ####[id number] [place] [address] Order Comment: TEST BASIC METABOLIC PANEL WAS CANCELLED, 04/16/2018 10:43 ?Cancel Reason:Discontinued. HCO3 (Bld) [Moles/Vol] Canceled Normal [facility] Comment on above: Order Comment: TEST BASIC METABOLIC PANEL WAS CANCELLED, 04/15/2018 04:45 ?Cancel Reason:Cancelled. Performed By: #### B MP ####[id number] [place] [address] Order Comment: TEST BASIC METABOLIC PANEL WAS CANCELLED, 04/16/2018 10:43 ?Cancel Reason:Discontinued. Potassium [Moles/Vol] Canceled Normal [facility] Comment on above: Order Comment: TEST BASIC METABOLIC PANEL WAS CANCELLED, 04/15/2018 04:45 ?Cancel Reason:Cancelled. Performed By: #### B MP ####[id number] [place] [address] Order Comment: TEST BASIC METABOLIC PANEL WAS CANCELLED, 04/16/2018 10:43 ?Cancel Reason:Discontinued. Sodium [Moles/Vol] Canceled Normal [facility] Comment on above: Order Comment: TEST BASIC METABOLIC PANEL WAS CANCELLED, 04/16/2018 10:43 ?Cancel Reason:Discontinued. Performed By: #### B MP ####[id number] [place] [address] Order Comment: TEST BASIC METABOLIC PANEL WAS CANCELLED, 04/15/2018 04:45 ?Cancel Reason:Cancelled. Urea nitrogen [Mass/Vol] Canceled Normal [facility] Comment on above: Order Comment: TEST BASIC METABOLIC PANEL WAS CANCELLED, 04/15/2018 04:45 ?Cancel Reason:Cancelled. Performed By: #### B MP ####[id number] [place] [address] Order Comment: TEST BASIC METABOLIC PANEL WAS CANCELLED, 04/16/2018 10:43 ?Cancel Reason:Discontinued. CALCIUM, IONIZEDon 9 CALCIUM,IONIZED 1.03 mmol/L Low 1.10 - 1.33 [facility] Comment on above: Result Comment: The performance characteristics of ionized calcium tested in heparinized plasma or serum have been validated by the individual laboratory site where testing is performed. Testing on heparinized plasma or serum is not approved by the FDA; however, such approval is not necessary. Performed By: #### C OAGS #### [facility] [id number] [place] [id number] CALCIUM,IONIZED 1.13 mmol/L Normal 1.10 - 1.33 [facility] Comment on above: Result Comment: The performance characteristics of ionized calcium tested in heparinized plasma or serum have been validated by the individual laboratory site where testing is performed. Testing on heparinized plasma or serum is not approved by the FDA; however, such approval is not necessary. Performed By: #### I ONC1 ####[id number] [place] [address] CBCon 04-16-2018 Erythrocyte distribution width (RBC) [Ratio] 14.6 % High 11.5 - 14.5 [facility] Comment on above: Performed By: #### C OAGS #### [facility] [id number] [place] [address] Hematocrit (Bld) [Volume fraction] 26.0 % Low 41.0 - 52.0 [facility] Comment on above: Performed By: #### C OAGS #### [facility] [id number] [place] [address] Hemoglobin (Bld) [Mass/Vol] 9.6 g/dL Low 13.5 - 17.5 [facility] Comment on above: Performed By: #### C OAGS #### [facility] [id number] [place] [address] MCHC (RBC) [Mass/Vol] 36.9 g/dL High 32.0 - 36.0 [facility] Comment on above: Performed By: #### C OAGS #### [facility] [id number] [place] [address] MCV (RBC) [Entitic vol] 87 fL Normal 80 - 100 [facility] Comment on above: Performed By: #### C OAGS #### [facility] [id number] [place] [address] Nucleated RBC/100 WBC (Bld) [Ratio] 0.2 /100 WBC Normal 0.0-0.0 [facility] Comment on above: Performed By: #### C OAGS #### [facility] [address] [place] [address] Platelets (Bld) [#/Vol] 221 10*3/uL Normal 150 - 450 [facility] Comment on above: Performed By: #### C OAGS #### [facility] [address] [place] [address] RBC (Bld) [#/Vol] 2.98 x10E12/L Low 4.50 - 5.90 [facility] Comment on above: Performed By: #### C OAGS #### [facility] [address] [place] [address] WBC (Bld) [#/Vol] 6.5 10*3/uL Normal 4.4 - 11.3 [facility] Comment on above: Performed By: #### C OAGS #### [facility] [id number] [place] [address] Erythrocyte distribution width (RBC) [Ratio] 14.2 % Normal 11.5 - 14.5 [facility] Comment on above: Performed By: #### C BC ####[id number] [place] [address] Hematocrit (Bld) [Volume fraction] 30.0 % Low 41.0 - 52.0 [facility] Comment on above: Performed By: #### C BC ####[id number] [place] [address] Hemoglobin (Bld) [Mass/Vol] 10.0 g/dL Low 13.5 - 17.5 [facility] Comment on above: Performed By: #### C BC ####[id number] [place] [address] MCHC (RBC) [Mass/Vol] 33.3 g/dL Normal 32.0 - 36.0 [facility] Comment on above: Performed By: #### C BC ####[id number] [place] [address] MCV (RBC) [Entitic vol] 94 fL Normal 80 - 100 [facility] Comment on above: Performed By: #### C BC ####[id number] [place] [address] Nucleated RBC/100 WBC (Bld) [Ratio] 0.0 /100 WBC Normal 0.0-0.0 [facility] Comment on above: Performed By: #### C BC ####[id number] [place] [address] Platelets (Bld) [#/Vol] 190 10*3/uL Normal 150 - 450 [facility] Comment on above: Performed By: #### C BC ####[id number] [place] [address] RBC (Bld) [#/Vol] 3.20 x10E12/L Low 4.50 - 5.90 [facility] Comment on above: Performed By: #### C BC ####[id number] [place] [address] WBC (Bld) [#/Vol] 6.5 10*3/uL Normal 4.4 - 11.3 [facility] Comment on above: Performed By: #### C BC ####[id number] [place] [address] Erythrocyte distribution width (RBC) [Ratio] 14.6 % High 11.5 - 14.5 [facility] Comment on above: Performed By: #### C BC ####[id number] [place] [address] Hematocrit (Bld) [Volume fraction] 22.9 % Low 41.0 - 52.0 [facility] Comment on above: Performed By: #### C BC ####[id number] [place] [address] Hemoglobin (Bld) [Mass/Vol] 7.0 g/dL Low 13.5 - 17.5 [facility] Comment on above: Performed By: #### C BC ####[id number] [place] [address] MCHC (RBC) [Mass/Vol] 30.6 g/dL Low 32.0 - 36.0 [facility] Comment on above: Performed By: #### C BC ####[id number] [place] [address] MCV (RBC) [Entitic vol] 103 fL High 80 - 100 [facility] Comment on above: Performed By: #### C BC ####[id number] [place] [address] Nucleated RBC/100 WBC (Bld) [Ratio] 0.0 /100 WBC Normal 0.0-0.0 [facility] Comment on above: Performed By: #### C BC ####[id number] [place] [address] Platelets (Bld) [#/Vol] 195 10*3/uL Normal 150 - 450 [facility] Comment on above: Performed By: #### C BC ####[id number] [place] [address] RBC (Bld) [#/Vol] 2.23 x10E12/L Low 4.50 - 5.90 [facility] Comment on above: Performed By: #### C BC ####[id number] [place] [address] WBC (Bld) [#/Vol] 5.7 10*3/uL Normal 4.4 - 11.3 [facility] Comment on above: Performed By: #### C BC ####[id number] [place] [address] Erythrocyte distribution width (RBC) [Ratio] Canceled Normal [facility] Comment on above: Order Comment: TEST CBC WAS CANCELLED, 04/15/2018 04:45 ?Cancel Reason: Cancelled. Performed By: #### C BC ####[id number] [id number] Order Comment: TEST CBC WAS CANCELLED, 04/16/2018 10:43 ?Cancel Reason: Discontinued. Hematocrit (Bld) [Volume fraction] Canceled Normal [facility] Comment on above: Order Comment: TEST CBC WAS CANCELLED, 04/16/2018 10:43 ?Cancel Reason: Discontinued. Performed By: #### C BC ####[id number] [place] [address] Order Comment: TEST CBC WAS CANCELLED, 04/15/2018 04:45 ?Cancel Reason: Cancelled. Hemoglobin (Bld) [Mass/Vol] Canceled Normal [facility] Comment on above: Order Comment: TEST CBC WAS CANCELLED, 04/16/2018 10:43 ?Cancel Reason: Discontinued. Performed By: #### C BC ####[id number] [id number] Order Comment: TEST CBC WAS CANCELLED, 04/15/2018 04:45 ?Cancel Reason: Cancelled. MCHC (RBC) [Mass/Vol] Canceled Normal [facility] Comment on above: Order Comment: TEST CBC WAS CANCELLED, 04/16/2018 10:43 ?Cancel Reason: Discontinued. Performed By: #### C BC ####[id number] [place] [address] Order Comment: TEST CBC WAS CANCELLED, 04/15/2018 04:45 ?Cancel Reason: Cancelled. MCV (RBC) [Entitic vol] Canceled Normal [facility] Comment on above: Order Comment: TEST CBC WAS CANCELLED, 04/16/2018 10:43 ?Cancel Reason: Discontinued. Performed By: #### C BC ####[id number] [place] [address] Order Comment: TEST CBC WAS CANCELLED, 04/15/2018 04:45 ?Cancel Reason: Cancelled. Nucleated RBC/100 WBC (Bld) [Ratio] Canceled Normal [facility] Comment on above: Order Comment: TEST CBC WAS CANCELLED, 04/15/2018 04:45 ?Cancel Reason: Cancelled. Performed By: #### C BC ####[id number] [place] [address] Order Comment: TEST CBC WAS CANCELLED, 04/16/2018 10:43 ?Cancel Reason: Discontinued. Platelets (Bld) [#/Vol] Canceled Normal [facility] Comment on above: Order Comment: TEST CBC WAS CANCELLED, 04/15/2018 04:45 ?Cancel Reason: Cancelled. Performed By: #### C BC ####[id number] [place] [address] Order Comment: TEST CBC WAS CANCELLED, 04/16/2018 10:43 ?Cancel Reason: Discontinued. RBC (Bld) [#/Vol] Canceled Normal [facility] Comment on above: Order Comment: TEST CBC WAS CANCELLED, 04/15/2018 04:45 ?Cancel Reason: Cancelled. Performed By: #### C BC ####[id number] [place] [address] Order Comment: TEST CBC WAS CANCELLED, 04/16/2018 10:43 ?Cancel Reason: Discontinued. WBC (Bld) [#/Vol] Canceled Normal [facility] Comment on above: Order Comment: TEST CBC WAS CANCELLED, 04/15/2018 04:45 ?Cancel Reason: Cancelled. Performed By: #### C BC ####[id number] [place] [address] Order Comment: TEST CBC WAS CANCELLED, 04/16/2018 10:43 ?Cancel Reason: Discontinued. COAGULATION SCREENon 019 aPTT Coag (Bld) [Time] 32 s Normal 28 - 38 [facility] Comment on above: Result Comment: Note new reference range as of 01/17/2018. THE APTT IS NO LONGER USED FOR MONITORING UNFRACTIONATED HEPARIN THERAPY. FOR MONITORING HEPARIN THERAPY, USE THE HEPARIN ASSAY. Performed By: #### C OAGS ####[id number] [place] [address] INR Coag (PPP) [Relative time] 1.1 {INR} Normal 0.9 - 1.1 [facility] Comment on above: Performed By: #### C OAGS ####[id number] [place] [address] PT Coag (PPP) [Time] 12.2 s Normal 9.7 - 12.7 [facility] Comment on above: Result Comment: Note new reference range as of 01/17/2018. Performed By: #### C OAGS ####[id number] [place] [address] aPTT Coag (Bld) [Time] Canceled Normal [facility] Comment on above: Order Comment: TEST COAGULATION SCREEN WAS CANCELLED, 04/16/2018 10:43 ?Cancel Reason:Discontinued. Result Comment: Note new reference range as of 01/17/2018. THE APTT IS NO LONGER USED FOR MONITORING UNFRACTIONATED HEPARIN THERAPY. FOR MONITORING HEPARIN THERAPY, USE THE HEPARIN ASSAY. Performed By: #### C OAGS ####[id number] [place] [address] INR Coag (PPP) [Relative time] Canceled Normal [facility] Comment on above: Order Comment: TEST COAGULATION SCREEN WAS CANCELLED, 04/16/2018 10:43 ?Cancel Reason:Discontinued. Performed By: #### C OAGS ####[id number] [place] [address] PT Coag (PPP) [Time] Canceled Normal [facility] Comment on above: Order Comment: TEST COAGULATION SCREEN WAS CANCELLED, 04/16/2018 10:43 ?Cancel Reason:Discontinued. Result Comment: Note new reference range as of 01/17/2018. Performed By: #### C OAGS ####[id number] [place] [address] Clinical Event Noteon 2018 Clinical Event Note Event: Details: 04/16/2018 4024 Aden Patel code armando called. Patient was on the commode and began bleeding from incision site on abdomen. While still on the commode the patient became unresponsive and lost consciousness. A code blue was called and the team was alerted. The patient was moved to the bed where pressure was applied to the abdomen. The patient remained regained consciousness after roughly 2min. An ambu-bag was used until a non-rebreather was available. Patient maintained a pulse throughout the incident. Electronic Signatures: Carolina Poon (STACI) (Signed 16-Apr-2018 13:37) Authored: Event Last Updated: 16-Apr-2018 13:37 by Carolina Poon (STACI) Normal [facility] Consult-Renalon 04-16-2018 Consult-Renal Service: Service: Renal Consult: Consult requested by (Attending Name): Dr. Colmenares Reason: MONTY History of Present Illness: HPI: Patient is a 67 year old male with a PMH of HTN, Complicated left-sided diverticulitis with perforation previously treated with antibiotics, and perforated appendicitis requiring appendectomy and ileocolic resection at OSH (07/2017) c/b Enterocutaneous fistula who had an exploratory laparotomy with takedown of enterovesical fistula and re-creation of ileocolic anastomosis on 04/14/2018. On 04/15/2018, patient had multiple hypotensive episodes and an episode of lost consciousness when standing. He was treated with IVF boluses. On 04/16/2018, the patient was transferred to the TSICU after a Code elle called. The patient became unresponsive and hypotensive while on the commode along with old, dark sanguinous drainage from the inferior aspect of the patient's midline incision. Patient became responsive and able to answer questions appropriately. Patient received an IVF bolus, 2 Unit(s) pRBCs, and started on a phenylephrine gtt for hypotension. Nephrology consulted for MONTY management. PMH: -HTN -Diverticulitis -Appendicitis -C.diff colitis -Gout -DEBBIE PSH: -Right inguinal hernia repair -Appendectomy and ileocolic resection FH: -HTN -Colorectal cancer (Brother) -CAD SH: -Current everyday smoker. Smokes 0.5 ppd x 40+ years. -Drinks 2 mixed drinks daily. Last drink 2 weeks ago. -Denies recreational drug use. Review Family/Social History and ROS: Review Family/Social History and ROS: I have reviewed the family and social history and review of systems from the History and Physical. Constitutional: NEGATIVE: Fever, Chills Eyes: NEGATIVE: Diploplia, Vision Loss/ Change ENMT: NEGATIVE: Mouth Pain, Throat Pain Respiratory: NEGATIVE: Productive Cough, Shortness of Breath Cardiac: NEGATIVE: Chest Pain, Palpitations Gastrointestinal: POSITIVE: Abdominal Pain; NEGATIVE: Nausea, Vomiting, Diarrhea Genitourinary: NEGATIVE: Dysuria, Hematuria Musculoskeletal: POSITIVE: Weakness; NEGATIVE: Swelling Neurological: POSITIVE: Dizziness; NEGATIVE: Headache Skin: NEGATIVE: Pruritus, Rash All Other Systems: All other systems reviewed and are negative Allergies: No Known Allergies: Objective: Objective Information: T PRBPSpO2 [id number]/14254% Date/Time04/16 16: 18: 18: 14: 18:00 Range(35.9C - 37.2C ) (72 - 92 ) (16 - 26 ) (79 - 139 )/ (53 - 113 ) (91% - 100% ) As of 16-Apr-2018 16:00:00, patient is on 15 L/min of oxygen via Venturi mask. Highest temp of 37.2 C was recorded at 04/16 16:00 Pain reported at 04/16 12:00: 5 Weights 04/16 11:00: Med Calc Weight (kg) (MED CALC WEIGHT (kg)) 96.6 Direct Arterial Blood Pressure [id number](87 - 193)04/16 18:30 Diastolic (mm Hg)57(48 - 86)04/16 18:30 Mean (mm Hg)70(61 - 110)04/16 18:30 Pulse Pressure (mm Hg)52(35 - 107)04/16 18:30 ---- Intake and Output ----- Mn/Dy/Year [facility] Apr 16, 2018 2:00 [id number] Apr 15, 2018 10:00 [id number] The Intake and Output Totals for the last 24 hours are: IntakeOutputNet [id number] Physical Exam: Constitutional: NAD, Cooperative Eyes: Clear conjunctiva, Sclera anicteric ENMT: MMM Head/Neck: NC/AT, Neck supple Respiratory/Thorax: CTAB. Normal respiratory effort. Cardiovascular: Regular, No rub Gastrointestinal: Firm, distended. Abdominal binder. Genitourinary: Mir Musculoskeletal: MCKEON Extremities: No edema Neurological: AAOx3. PERRL. Psychological: Appropriate mood and behavior Skin: Warm, dry. No vasculitic rash. Medications: Medications: CARDIOVASCULAR AGENTS: 1. Norepinephrine 8 mg/ D5W 250 mL Infusion: 0.01 mcg/kg/min IntraVenous 2. Phenylephrine 10 mg/ NaCL 0.9% 250 mL Infusion: 0.5 mcg/kg/min IntraVenous CENTRAL NERVOUS SYSTEM AGENTS: 1. Acetaminophen: 650 mg Oral Every 6 Hours 2. oxyCODONE Immediate Release: 5 mg Oral Every 4 Hours PRN 3. oxyCODONE Immediate Release: 10 mg Oral Every 4 Hours PRN 4. Ondansetron Injectable: 4 mg IntraVenous Push Every 6 Hours PRN METABOLIC AGENTS: 1. Insulin Lispro Customizable Corrective Scale: unit(s) SubCutaneous Every 4 Hours 2. Dextrose 50% in Water Injectable: 25 gram(s) IntraVenous Push Every 15 Minutes PRN 3. Glucagon Injectable: 1 mg IntraMuscular Every 15 Minutes PRN MISCELLANEOUS AGENTS: 1. Nicotine 21 mg/ 24 hour TransDermal: 1 patch TransDermal Every 24 Hours NUTRITIONAL PRODUCTS: 1. PLASMA-LYTE Infusion: 1000 mL IntraVenous 2. PLASMA-LYTE IV Bolus: 1000 mL IntraVenous Piggyback Once 3. Calcium Chloride IVPB: 0.5 gram(s) IntraVenous Piggyback Every 8 Hours PRN 4. Calcium Chloride IVPB: 1 gram(s) IntraVenous Piggyback Every 8 Hours PRN 5. Magnesium Sulfate 2 gram/Sterile Water 50 mL Premix Soln: 2 gram(s) IntraVenous Piggyback Every 6 Hours PRN 6. Magnesium Sulfate 4 gram/Sterile Water 100 mL Premix Soln: 4 gram(s) IntraVenous Piggyback Every 6 Hours PRN Currently Suspended Medications --- 1. Metoprolol Tartrate: 100 mg Oral Every 12 Hours 2. Gabapentin: 300 mg Oral 3 Times a Day Recent Lab Results: Results: I have reviewed these laboratory results: Complete Blood Count Trending View [id number] 14:24:00 16-Apr-2018 11:17:00 White Blood Cell Count6.5 5.7 Nucleated Erythrocyte Count0.0 0.0 Red Blood Cell Count3.20 L 2.23 L HGB10.0 L 7.0 L HCT30.0 L 22.9 L MCV94 103 H MCHC33.3 30.6 L LWM582 195 RDW-CV14.2 14.6 H Arterial Full Panel Trending View [id number]-Tfz-[id number] 14:23:00 16-Apr-2018 11:43:00 pH, Arterial7.34 L 7.31 L pCO2, Rehrfluc60 36 L pO2, Rmycvhgl75 L 57 L Patient-Jkisolgvbsu66.0 37.0 SO2, Xtscfczy38 L 93 L HCT26.0 L 18.0 L Sodium-Klcam273 L 129 L Potassium-Level4.6 4.5 Chloride-Level97 L 98 Calcium, Ionized-Level1.06 L 1.06 L Glucose-Kbema490 H 155 H Lactate-Level3.1 H 5.8 HH Base Dfcvxl-Zyijg-1.9 L -7.5 L Bicarbonate, Calculated, Fbyfyvia90.6 L 18.1 L HGB, Calculated8.8 L 6.1 LL Anion Gap-Level14 17 Lab Comment: CHUYITA TREJO [facility] CALLED RB TO GM JACINTO, 04/16/2018 12:12 Hepatic Function Panel 16-Apr-2018 11:17:00 ResultValue Aspartate Transaminase, Serum 42 H ALB 2.8 L T Bili 0.4 Bilirubin, Serum Direct - Conjugated 0.1 ALKP 54 Alanine Aminotransferase, Serum 25 T Pro 4.6 L Coagulation Screen 16-Apr-2018 11:17:00 ResultValue Prothrombin Time, Plasma 12.2 International Normalized Ratio, Plasma 1.1 Activated Partial Thromboplastin Time 32 Renal Function Panel 16-Apr-2018 11:17:00 ResultValue Glucose, Serum 161 H NA 133 L K 4.8 CL 98 Bicarbonate, Serum 17 L Anion Gap, Serum 23 H BUN 46 H CREAT 4.29 H GFR-Non 14 A GFR- 17 A Calcium, Serum 7.9 L Phosphorus, Serum 7.4 H ALB 2.8 L Fibrinogen Assay 16-Apr-2018 11:17:00 ResultValue Fibrinogen 503 H Magnesium, Serum 16-Apr-2018 11:17:00 ResultValue Magnesium, Serum 1.95 Calcium, Ionized Level 16-Apr-2018 11:17:00 ResultValue Calcium, Ionized Level 1.13 Lipase, Serum 16-Apr-2018 11:17:00 ResultValue Lipase, Serum <3 A Amylase, Serum 16-Apr-2018 11:17:00 ResultValue Amylase, Serum <10 L Sodium, Urine Spot Trending View [id number] 19:18:00 15-Apr-2018 14:48:00 Sodium Urine Spot14 12 Sodium/Creat [id number] 462 Creatinine, Urine Spot11.9 L 2.6 L Radiology Results: Results: Impression: [Low lung volumes with bronchovascular crowding and mild bibasilar atelectasis.] Left IJ central venous catheter projects over the cavoatrial junction. Enlargement of cardiomediastinal silhouette. UNSIGNED REPOR Xray Chest 1 View [Apr 16 2018 1:37PM] Impression: 1. Grossly normal small with no hydronephrosis. 2. Partially visualized complex fluid collection in the abdomen which is not well evaluated. Correlate with cross-sectional imaging such as CT. Ultrasound Renal Bilateral [Apr 15 2018 3:59PM] Assessment: Patient is a 67 year old male with a PMH of HTN, Complicated left-sided diverticulitis with perforation previously treated with antibiotics, and perforated appendicitis requiring appendectomy and ileocolic resection at OSH (07/2017) c/b Enterocutaneous fistula who had an exploratory laparotomy with takedown of enterovesical fistula and re-creation of ileocolic anastomosis on 04/14/2018. On 04/15/2018, patient had multiple hypotensive episodes and an episode of lost consciousness when standing. On 04/16/2018, the patient was transferred to the TSICU after he became unresponsive and hypotensive while on the commode along with old, dark sanguinous drainage from the inferior aspect of the patient's midline incision. Patient received an IVF bolus, 2 Unit(s) pRBCs, and started on a phenylephrine gtt for hypotension. Nephrology consulted for MONTY management. -MONTY, DDx: Hemodynamically mediated, Hypotension, Progression to ATN, IAH/ACS -Shock, Hypovolemic -Hypovolemic hyponatremia -HTN -Anemia US Renal: No hydronephrosis. Plan: -No acute indication for FISH CONSERVATIONIST. -Agree with fluid resuscitation and vasopressors. Target MAPs >70 for optimum renal perfusion. -Check a intra-bladder pressure. -Order UA, FeNa, and FeUrea when possible. -Strict I&O's, Daily weights -Avoid nephrotoxic agents, hypotension, IV contrast, and NSAIDs when possible. -Renally dose medications. Discussed with attending. Audrey Zuniga Renal Fellow #[id number] Signature/Cosignature/Attesta tion: Attending AttestationI saw and evaluated the patient. I personally obtained the thibodeaux and critical portions of the history and physical exam or was physically present for thibodeaux and critical portions performed by the resident/fellow. I reviewed the resident/fellows documentation and discussed the patient with the resident/fellow. I agree with the resident/fellows medical decision making as documented in the residents note. I personally evaluated the patient (as noted in the above attestation) on 16-Apr-2018 Electronic Signatures: Audrey Zuniga (DO (Fellow)) (Signed 16-Apr-2018 19:57) Authored: Service, History of Present Illness, Review Family/Social History and ROS, Allergies, Objective, Assessment/Recommendations, Signature/Cosignature/Attesta tion Yary Persaud) (Signed 16-Apr-2018 21:54) Authored: Service, Review Family/Social History and ROS, Signature/Cosignature/Attesta tion Co-Signer: Service, History of Present Illness, Review Family/Social History and ROS, Allergies, Objective, Assessment/Recommendations, Signature/Cosignature/Attesta tion Last Updated: 16-Apr-2018 21:54 by Yary Persaud) Normal [facility] Daily Progress Note-Colorect al Surgeryon 04-16-2018 Daily Progress Note-Colorectal Surgery Service: Colorectal Surgery Subjective Data: ADEN PATEL is a 67 year old Male who is Hospital Day # 4. Patient had no issue overnight except for low UOP. During morning rounds he was lying comfortably in bed, his pain was controlled. Reports having flatus and BMs, no nausea or emesis. Tolerating PO intake. At around ~11 am, elle almeida was called as the patient lost consciousness while on the commode and was bleeding from his abdominal wound. On exam, dark venous blood was evacuating from the inferior aspect of his abdominal incision. Initially he was unresponsive, however, he spontaneously regained consciousness and began following commands and responding to verbal cues. He had a pulse throughout the event, his SBP was in the 80s, and he was maintaining his saturations. Pressure was held on the abdominal incision and patient was transferred to the SICU. Objective Data: Objective Information: ---- Intake and Output ----- Mn/Dy/[facility] Apr 15, 2018 10:00 [id number] Apr 15, 2018 2:00 [id number] The Intake and Output Totals for the last 24 hours are: IntakeOutputNet [id number] T PRBPSpO2 Value35.6245300/5597% Date/Time04/16 8:5204/16 11: 11: 11: 8:52 Range(35.9C - 36.5C ) (73 - 84 ) (16 - 24 ) (79 - 133 )/ (53 - 87 ) (91% - 98% ) ---- Intake and Output ----- Mn/Dy/Year [facility] Apr 15, 2018 10:00 [id number] Apr 15, 2018 2:00 [id number] The Intake and Output Totals for the last 24 hours are: IntakeOutputNet [id number] Intake Output Enteral - Oral 840 mL Urine 460 mL IV Fluids 2284 mL Drain 70 mL Physical Exam: Constitutional: Well developed, awake/alert/oriented x3, no distress, alert and cooperative Eyes: EOMI, clear sclera Head/Neck: Left central line in place Respiratory/Thorax: Patent airways, good chest expansion, thorax symmetric on 55% FiO2 venimask Cardiovascular: Regular rate Gastrointestinal: Nondistended, soft, non tender, no rebound tenderness or guarding, incision is c/d/i with bud. MADISON with sanguinous drainage Genitourinary: Mir with no urine Extremities: MCKEON x 4 Neurological: alert and oriented x3 Psychological: Appropriate mood and behavior Skin: Warm and dry, no lesions, no rashes Medication: Medications: Continuous Medications --- 1. Phenylephrine 10 mg/ NaCL 0.9% 250 mL Infusion: 0.5 mcg/kg/min IntraVenous 2. PLASMA-LYTE Infusion: 1000 mL IntraVenous Scheduled Medications --- 1. Acetaminophen: 650 mg Oral Every 6 Hours 2. Gabapentin: 300 mg Oral 3 Times a Day 3. Insulin Lispro Customizable Corrective Scale: unit(s) SubCutaneous Every 4 Hours 4. Lactated Ringers IV Bolus: 500 mL IntraVenous Piggyback Once 5. Nicotine 21 mg/ 24 hour TransDermal: 1 patch TransDermal Every 24 Hours PRN Medications --- 1. Calcium Chloride IVPB: 0.5 gram(s) IntraVenous Piggyback Every 8 Hours 2. Calcium Chloride IVPB: 1 gram(s) IntraVenous Piggyback Every 8 Hours 3. Dextrose 50% in Water Injectable: 25 gram(s) IntraVenous Push Every 15 Minutes 4. Glucagon Injectable: 1 mg IntraMuscular Every 15 Minutes 5. Magnesium Sulfate 2 gram/Sterile Water 50 mL Premix Soln: 2 gram(s) IntraVenous Piggyback Every 6 Hours 6. Magnesium Sulfate 4 gram/Sterile Water 100 mL Premix Soln: 4 gram(s) IntraVenous Piggyback Every 6 Hours 7. Ondansetron Injectable: 4 mg IntraVenous Push Every 6 Hours 8. oxyCODONE Immediate Release: 5 mg Oral Every 4 Hours 9. oxyCODONE Immediate Release: 10 mg Oral Every 4 Hours Currently Suspended Medications --- 1. Metoprolol Tartrate: 100 mg Oral Every 12 Hours Recent Lab Results: Results: I have reviewed these laboratory results: Arterial Full Panel 16-Apr-2018 11:43:00 ResultValue Lab Comment: CHUYITA TREJO [facility] CALLED RB TO GM JACINTO, 04/16/2018 12:12 pH, Arterial 7.31 L pCO2, Arterial 36 L pO2, Arterial 57 L Patient-Temperature 37.0 SO2, Arterial 93 L HCT 18.0 L Sodium-Level 129 L Potassium-Level 4.5 Chloride-Level 98 Calcium, Ionized-Level 1.06 L Glucose-Level 155 H Lactate-Level 5.8 HH Base Excess-Blood -7.5 L Bicarbonate, Calculated, Arterial 18.1 L HGB, Calculated 6.1 LL Anion Gap-Level 17 Complete Blood Count 16-Apr-2018 11:17:00 ResultValue White Blood Cell Count 5.7 Nucleated Erythrocyte Count 0.0 Red Blood Cell Count 2.23 L HGB 7.0 L HCT 22.9 L MCV 103 H MCHC 30.6 L PLT 195 RDW-CV 14.6 H Coagulation Screen 16-Apr-2018 11:17:00 ResultValue Prothrombin Time, Plasma 12.2 International Normalized Ratio, Plasma 1.1 Activated Partial Thromboplastin Time 32 Renal Function Panel 16-Apr-2018 11:17:00 ResultValue Glucose, Serum 161 H NA 133 L K 4.8 CL 98 Bicarbonate, Serum 17 L Anion Gap, Serum 23 H BUN 46 H CREAT 4.29 H GFR-Non 14 A GFR- 17 A Calcium, Serum 7.9 L Phosphorus, Serum 7.4 H ALB 2.8 L Fibrinogen Assay 16-Apr-2018 11:17:00 ResultValue Fibrinogen 503 H Magnesium, Serum 16-Apr-2018 11:17:00 ResultValue Magnesium, Serum 1.95 Calcium, Ionized Level 16-Apr-2018 11:17:00 ResultValue Calcium, Ionized Level 1.13 Radiology Results: Results: Impression: Xray Chest 1 View [Apr 16 2018 11:42AM] Impression: 1. Grossly normal small with no hydronephrosis. 2. Partially visualized complex fluid collection in the abdomen which is not well evaluated. Correlate with cross-sectional imaging such as CT. Ultrasound Renal Bilateral [Apr 15 2018 3:59PM] Assessment and Plan: Assessment: 67yo M with Hx perforated appendicitis requiring appendectomy and ileocolic resection at OSH 07/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 On 04/14/18 he underwent ex lap with takedown of ileocolic anastomosis and fistula takedwon with redo of ileocolic anastomosis, and was also found to have small enterovesical fistula that was taken down and primarily repaired and primary ventral hernia repair with placement of subcutaneous MADISON drain. On 04/16/2018 (POD2) patient lost consciousness while on the commode and was bleeding from his abdominal wound. On exam, dark venous blood was evacuating from the inferior aspect of his abdominal incision. Initially he was unresponsive, however, he spontaneously regained consciousness and began following commands and responding to verbal cues. He had a pulse throughout the event, his SBP was in the 80s, and he was maintaining his saturations. Pressure was held on the abdominal incision, fluid bolus was started, and patient was transferred to the SICU. His H/H is 7/22.9 from 9.5/29.1m BUN/Cr is 46/4.29 from 26/2.27. Abdominal incision with slow venous ozz from inferior aspect likely secondary to small tissue venous bleed or evacuating hematoma. Plan: - Appreciate ICU care - Agree with blood transfusion and volume resuscitation - Please place ABDs and abdominal binder to provide compressive dressing for hemostasis - Hold chemo dvt ppx - Nephrology consulted for MONTY, appreciate recs - Please call with any issues or changes Patient discussed with attending surgeon Dr. Quigley. Marquez Bronson General Surgery, PGY-2 [place] [id number] Signature/Cosignature/Attesta tion: Attending AttestationI reviewed the resident/fellows documentation and discussed the patient with the resident/fellow. I agree with the resident/fellows medical decision making as documented in the residents note. Electronic Signatures: Marquez Bronson (Resident)) (Signed 16-Apr-2018 12:48) Authored: Service, Subjective Data, Objective Data, Assessment and Plan, Signature/Cosignature/Attesta tion Ever Quigley) (Signed 21-Apr-2018 12:10) Authored: Signature/Cosignature/Attesta tion Co-Signer: Service, Subjective Data, Objective Data, Assessment and Plan, Signature/Cosignature/Attesta tion Last Updated: 21-Apr-2018 12:10 by Ever Quigley) Normal [facility] EMR ADDONon 01-20-2019 ADDON CONFIRMATION REQUEST REC'D Normal [facility] Comment on above: Performed By: #### E MRAD ####NO LOCATION NEEDED ADDON CONFIRMATION REQUEST REC'D Normal [facility] Comment on above: Performed By: #### E MRAD ####NO LOCATION NEEDED FIBRINOGENon 04-16-2018 FIBRINOGEN 503 mg/dL High 200 - 400 [facility] Comment on above: Performed By: #### F IB ####[id number] [place] [address] GLUCOSE-POCTon 04-16-2018 Glucose [Mass/Vol] 136 mg/dL High 74 - 99 [facility] Comment on above: Performed By: #### G VAISHALI ####[id number] [place] [address] Glucose [Mass/Vol] 127 mg/dL High 74 - 99 [facility] Comment on above: Performed By: #### G VAISHALI ####[id number] [place] [address] HEPATIC FUNCTION PANELon ALP [Catalytic activity/Vol] 54 U/L Normal 33 - 136 [facility] Comment on above: Performed By: #### H EPFP ####[id number] [place] [address] ALT [Catalytic activity/Vol] 25 U/L Normal 10 - 52 [facility] Comment on above: Result Comment: Darlene ents treated with Sulfasalazine may generate falsely decreased results for ALT. Performed By: #### H EPFP ####[id number] [place] [address] AST [Catalytic activity/Vol] 42 U/L High 9 - 39 [facility] Comment on above: Performed By: #### H EPFP ####[id number] [place] [address] Bilirubin [Mass/Vol] 0.4 mg/dL Normal 0.0 - 1.2 [facility] Comment on above: Performed By: #### H EPFP ####[id number] [place] [address] Bilirubin.direct [Mass/Vol] 0.1 mg/dL Normal 0.0 - 0.3 [facility] Comment on above: Performed By: #### H EPFP ####[id number] [place] [address] Protein [Mass/Vol] 4.6 g/dL Low 6.4 - 8.2 [facility] Comment on above: Performed By: #### H EPFP ####[id number] [place] [address] Albumin [Mass/Vol] 2.8 g/dL Low 3.4 - 5.0 [facility] Comment on above: Performed By: #### H EPFP ####[id number] [place] [address] Performed By: #### R ENAL ####[id number] [place] [address] LIPASEon 04-16-2018 Lipase [Catalytic activity/Vol] U/L Abnormal 9 - 82 [facility] Comment on above: Result Comment: Astrid puncture immediately after or during the administration of Metamizole may lead to falsely low results. Testing should be performed immediately prior to Metamizole dosing. Performed By: #### L IPAS ####[id number] [place] [address] MAGNESIUMon 04-16-2018 Magnesium [Mass/Vol] 1.95 mg/dL Normal 1.60 - 2.40 [facility] Comment on above: Performed By: #### M G ####[id number] [place] [address] Magnesium [Mass/Vol] Canceled Normal [facility] Comment on above: Order Comment: TEST MAGNESIUM WAS CANCELLED, 04/16/2018 10:43 ?Cancel Reason: Discontinued. Performed By: #### M G ####[id number] [place] [address] Magnesium [Mass/Vol] 1.63 mg/dL Normal 1.60 - 2.40 [facility] Comment on above: Performed By: #### M G ####[id number] [place] [address] RENAL FUNCTION PANELon 04-16 Anion gap [Moles/Vol] 23 mmol/L High 10 - 20 [facility] Comment on above: Performed By: #### R ENAL ####[id number] [place] [address] Calcium [Mass/Vol] 7.9 mg/dL Low 8.6 - 10.6 [facility] Comment on above: Performed By: #### R ENAL ####[id number] [place] [address] Chloride [Moles/Vol] 98 mmol/L Normal 98 - 107 [facility] Comment on above: Performed By: #### R ENAL ####[id number] [place] [address] Creatinine [Mass/Vol] 4.29 mg/dL High 0.50 - 1.30 [facility] Comment on above: Performed By: #### R ENAL ####[id number] [place] [address] GFR- AM. 17 mL/min/1.73m2 Abnormal >60 [facility] Comment on above: Result Comment: CALC ULATIONS OF ESTIMATED GFR ARE PERFORMED USING THE MDRD STUDY EQUATION FOR THE IDMS-TRACEABLE CREATININE METHODS. CLIN CHEM 2007;53:766-72 Performed By: #### R ENAL ####[id number] [place] [address] GFR-NON AM. 14 mL/min/1.73m2 Abnormal >60 [facility] Comment on above: Performed By: #### R ENAL ####[id number] [place] [address] Glucose [Mass/Vol] 161 mg/dL High 74 - 99 [facility] Comment on above: Performed By: #### R ENAL ####[id number] [place] [address] HCO3 (Bld) [Moles/Vol] 17 mmol/L Low 21 - 32 [facility] Comment on above: Performed By: #### R ENAL ####[id number] [place] [address] Phosphate [Mass/Vol] 7.4 mg/dL High 2.5 - 4.9 [facility] Comment on above: Result Comment: The performance characteristics of phosphorus testing in heparinized plasma have been validated by the individual laboratory site where testing is performed. Testing on heparinized plasma is not approved by the FDA; however, such approval is not necessary. Performed By: #### R ENAL ####[id number] [place] [address] Potassium [Moles/Vol] 4.8 mmol/L Normal 3.5 - 5.3 [facility] Comment on above: Performed By: #### R ENAL ####[id number] [place] [address] Sodium [Moles/Vol] 133 mmol/L Low 136 - 145 [facility] Comment on above: Performed By: #### R ENAL ####[id number] [place] [address] Urea nitrogen [Mass/Vol] 46 mg/dL High 6 - 23 [facility] Comment on above: Performed By: #### R ENAL ####[id number] [place] [address] REQUEST-LEUKOREDUCED RED DANNY LSon 04-16-2018 REQUEST-LEUKOREDU MABEL RED CELLS ORDER RECD Normal [facility] Comment on above: Performed By: #### O MATTING PRESS TENDER ####[id number] [place] [address] SODIUM, URINE SPOTon 019 CREATININE,URINE 11.9 mg/dL Low 20.0 - 370.0 [facility] Comment on above: Performed By: #### S ODS2 ####[id number] [place] [address] Sodium (U) [Moles/Vol] 14 mmol/L Normal Not Established [facility] Comment on above: Performed By: #### S ODS2 ####[id number] [place] [address] SODIUM/CREAT RATIO 118 mmol/g Creat Normal Not Established [facility] Comment on above: Performed By: #### S ODS2 ####[id number] [place] [address] TH CHEST 1 VIEWon 04-16-2018 TH CHEST 1 VIEW Patient Name: ADEN PATEL STUDY: TH CHEST 1 VIEW; 04/16/2018 1:14 pm INDICATION: Signs/Symptoms: stat. COMPARISON: None. ACCESSION NUMBER(S): [id number] ORDERING CLINICIAN: STANFORD SANCHEZ FINDINGS: Left IJ central venous catheter is seen with tip projecting over the cavoatrial junction. CARDIOMEDIASTINAL SILHOUETTE: Cardiomediastinal silhouette is mildly enlarged. LUNGS: There are low lung volumes with bronchovascular crowding. There is no focal consolidation, pleural effusion, or pneumothorax. There is mild bibasilar atelectasis. ABDOMEN: No remarkable upper abdominal findings. BONES: No acute osseous changes. IMPRESSION: 1. Low lung volumes with bronchovascular crowding and mild bibasilar atelectasis. 2. Left IJ central venous catheter projects over the cavoatrial junction. 3. Enlargement of cardiomediastinal silhouette. I personally reviewed the images/study and I agree with the findings as stated. This study was interpreted at [facility], [place], [place]. Electronically signed by: DAYNE HUBBARD MD Normal [facility] BASIC METABOLIC PANELon 03-28 Anion gap [Moles/Vol] 18 mmol/L Normal 10 - 20 [facility] Comment on above: Performed By: #### B MP ####[id number] [place] [address] Performed By: #### C MP ####[id number] [place] [address] Calcium [Mass/Vol] 8.5 mg/dL Low 8.6 - 10.6 [facility] Comment on above: Performed By: #### B MP ####[id number] [place] [address] Chloride [Moles/Vol] 99 mmol/L Normal 98 - 107 [facility] Comment on above: Performed By: #### B MP ####[id number] [place] [address] Performed By: #### C MP ####[id number] [place] [address] Creatinine [Mass/Vol] 2.27 mg/dL High 0.50 - 1.30 [facility] Comment on above: Performed By: #### B MP ####[id number] [place] [address] GFR- AM. 35 mL/min/1.73m2 Abnormal >60 [facility] Comment on above: Result Comment: CALC ULATIONS OF ESTIMATED GFR ARE PERFORMED USING THE MDRD STUDY EQUATION FOR THE IDMS-TRACEABLE CREATININE METHODS. CLIN CHEM 2007;53:766-72 Performed By: #### B MP ####[id number] [place] [address] GFR-NON AM. 29 mL/min/1.73m2 Abnormal >60 [facility] Comment on above: Performed By: #### B MP ####[id number] [place] [address] Glucose [Mass/Vol] 167 mg/dL High 74 - 99 [facility] Comment on above: Performed By: #### B MP ####[id number] [place] [address] HCO3 (Bld) [Moles/Vol] 20 mmol/L Low 21 - 32 [facility] Comment on above: Performed By: #### B MP ####[id number] [place] [address] Potassium [Moles/Vol] 4.7 mmol/L Normal 3.5 - 5.3 [facility] Comment on above: Performed By: #### B MP ####[id number] [place] [address] Sodium [Moles/Vol] 132 mmol/L Low 136 - 145 [facility] Comment on above: Performed By: #### B MP ####[id number] [place] [address] Performed By: #### C MP ####[id number] [place] [address] Urea nitrogen [Mass/Vol] 26 mg/dL High 6 - 23 [facility] Comment on above: Performed By: #### B MP ####[id number] [place] [address] CALCIUM, IONIZEDon 9 CALCIUM,IONIZED 1.15 mmol/L Normal 1.10 - 1.33 [facility] Comment on above: Result Comment: The performance characteristics of ionized calcium tested in heparinized plasma or serum have been validated by the individual laboratory site where testing is performed. Testing on heparinized plasma or serum is not approved by the FDA; however, such approval is not necessary. Performed By: #### I ONC1 ####[id number] [place] [address] CBCon 04-15-2018 Erythrocyte distribution width (RBC) [Ratio] 14.4 % Normal 11.5 - 14.5 [facility] Comment on above: Performed By: #### C BC ####[id number] [place] [address] Hematocrit (Bld) [Volume fraction] 29.1 % Low 41.0 - 52.0 [facility] Comment on above: Performed By: #### C BC ####[id number] [place] [address] Hemoglobin (Bld) [Mass/Vol] 9.5 g/dL Low 13.5 - 17.5 [facility] Comment on above: Performed By: #### C BC ####[id number] [place] [address] MCHC (RBC) [Mass/Vol] 32.6 g/dL Normal 32.0 - 36.0 [facility] Comment on above: Performed By: #### C BC ####[id number] [place] [address] MCV (RBC) [Entitic vol] 98 fL Normal 80 - 100 [facility] Comment on above: Performed By: #### C BC ####[id number] [place] [address] Nucleated RBC/100 WBC (Bld) [Ratio] 0.0 /100 WBC Normal 0.0-0.0 [facility] Comment on above: Performed By: #### C BC ####[id number] [place] [address] Platelets (Bld) [#/Vol] 222 10*3/uL Normal 150 - 450 [facility] Comment on above: Performed By: #### C BC ####[id number] [place] [address] RBC (Bld) [#/Vol] 2.96 x10E12/L Low 4.50 - 5.90 [facility] Comment on above: Performed By: #### C BC ####[id number] [place] [address] WBC (Bld) [#/Vol] 13.3 10*3/uL High 4.4 - 11.3 [facility] Comment on above: Performed By: #### C BC ####[id number] [place] [address] Erythrocyte distribution width (RBC) [Ratio] 14.3 % Normal 11.5 - 14.5 [facility] Comment on above: Performed By: #### C BC ####[id number] [place] [address] Hematocrit (Bld) [Volume fraction] 32.9 % Low 41.0 - 52.0 [facility] Comment on above: Performed By: #### C BC ####[id number] [place] [address] Hemoglobin (Bld) [Mass/Vol] 10.5 g/dL Low 13.5 - 17.5 [facility] Comment on above: Performed By: #### C BC ####[id number] [place] [address] MCHC (RBC) [Mass/Vol] 31.9 g/dL Low 32.0 - 36.0 [facility] Comment on above: Performed By: #### C BC ####[id number] [place] [address] MCV (RBC) [Entitic vol] 99 fL Normal 80 - 100 [facility] Comment on above: Performed By: #### C BC ####[id number] [place] [address] Nucleated RBC/100 WBC (Bld) [Ratio] 0.0 /100 WBC Normal 0.0-0.0 [facility] Comment on above: Performed By: #### C BC ####[id number] [place] [address] Platelets (Bld) [#/Vol] 232 10*3/uL Normal 150 - 450 [facility] Comment on above: Performed By: #### C BC ####[id number] [place] [address] RBC (Bld) [#/Vol] 3.31 x10E12/L Low 4.50 - 5.90 [facility] Comment on above: Performed By: #### C BC ####[id number] [place] [address] WBC (Bld) [#/Vol] 12.8 10*3/uL High 4.4 - 11.3 [facility] Comment on above: Performed By: #### C BC ####[id number] [place] [address] COAGULATION SCREENon 019 aPTT Coag (Bld) [Time] 33 s Normal 28 - 38 [facility] Comment on above: Result Comment: Note new reference range as of 01/17/2018. THE APTT IS NO LONGER USED FOR MONITORING UNFRACTIONATED HEPARIN THERAPY. FOR MONITORING HEPARIN THERAPY, USE THE HEPARIN ASSAY. Performed By: #### C OAGS ####[id number] [place] [address] INR Coag (PPP) [Relative time] 1.1 {INR} Normal 0.9 - 1.1 [facility] Comment on above: Performed By: #### C OAGS ####[id number] [place] [address] PT Coag (PPP) [Time] 12.0 s Normal 9.7 - 12.7 [facility] Comment on above: Result Comment: Note new reference range as of 01/17/2018. Performed By: #### C OAGS ####[id number] [place] [address] COMPREHENSIVE PANELon 2018 Albumin [Mass/Vol] 3.2 g/dL Low 3.4 - 5.0 [facility] Comment on above: Performed By: #### C MP ####[id number] [place] [address] ALP [Catalytic activity/Vol] 70 U/L Normal 33 - 136 [facility] Comment on above: Performed By: #### C MP ####[id number] [place] [address] ALT [Catalytic activity/Vol] 8 U/L Low 10 - 52 [facility] Comment on above: Result Comment: Darlene ents treated with Sulfasalazine may generate falsely decreased results for ALT. Performed By: #### C MP ####[id number] [place] [address] AST [Catalytic activity/Vol] 14 U/L Normal 9 - 39 [facility] Comment on above: Performed By: #### C MP ####[id number] [place] [address] Bilirubin [Mass/Vol] 0.9 mg/dL Normal 0.0 - 1.2 [facility] Comment on above: Performed By: #### C MP ####[id number] [place] [address] Calcium [Mass/Vol] 8.4 mg/dL Low 8.6 - 10.6 [facility] Comment on above: Performed By: #### C MP ####[id number] [place] [address] Creatinine [Mass/Vol] 2.03 mg/dL High 0.50 - 1.30 [facility] Comment on above: Performed By: #### C MP ####[id number] [place] [address] GFR- AM. 40 mL/min/1.73m2 Abnormal >60 [facility] Comment on above: Result Comment: CALC ULATIONS OF ESTIMATED GFR ARE PERFORMED USING THE MDRD STUDY EQUATION FOR THE IDMS-TRACEABLE CREATININE METHODS. CLIN CHEM 2007;53:766-72 Performed By: #### C MP ####[id number] [place] [address] GFR-NON AM. 33 mL/min/1.73m2 Abnormal >60 [facility] Comment on above: Performed By: #### C MP ####[id number] [place] [address] Glucose [Mass/Vol] 159 mg/dL High 74 - 99 [facility] Comment on above: Performed By: #### C MP ####[id number] [place] [address] HCO3 (Bld) [Moles/Vol] 19 mmol/L Low 21 - 32 [facility] Comment on above: Performed By: #### C MP ####[id number] [place] [address] Potassium [Moles/Vol] 4.4 mmol/L Normal 3.5 - 5.3 [facility] Comment on above: Performed By: #### C MP ####[id number] [place] [address] Protein [Mass/Vol] 5.1 g/dL Low 6.4 - 8.2 [facility] Comment on above: Performed By: #### C MP ####[id number] [place] [address] Urea nitrogen [Mass/Vol] 22 mg/dL Normal 6 - 23 [facility] Comment on above: Performed By: #### C MP ####[id number] [place] [address] Clinical Event Note-CODE DARIAN Carter 04-15-2018 Clinical Event Note-CODE WHITE Event: Topic: ELLE ALMEIDA Details: ELLE ALMEIDA/MARTHA TEAM CALLED, PT WENT UNCONSCIOUS AFTER STANDING UP. LASTED 1 MINUTE, BP 71/45 HR 68 O2 95%. 2 LITER BOLUS ADMINISTERED , EKG IN CHART, LABS SENT TO LAB. CHANGED PT POSITION, PLACED IN TRENDELENBURG AND RECHECKED BP 1 MIN SYSTOLIC 89 , RECHECK 3 MIN BP 91/53. WILL CONTINUE TO MONITOR Provider / Team Contact Information: Provider/Team Contact Info-Pager Number: [phone] Electronic Signatures: Medardo Padgett (RN) (Signed 15-Apr-2018 06:28) Authored: Event, Provider / Team Contact Information Last Updated: 15-Apr-2018 06:28 by Medardo Padgett (GORDON) Normal [facility] Clinical Event Note-Code Darian carter 04-15-2018 Clinical Event Note-Code White Event: Topic: Code White Details: DELAYED ENTRY Called by RN that she was calling a code white on patient due to hypotension. MD to bedside. Per RN, patient was standing up from the bed to use the restroom and he suddenly lost consciousness. RN was assisting him, and he was immediately sat down on the bed and assisted into the supine position. He did not fall with this episode. On initial vitals check, patient found to be hypotensive to 71/45, HR in the 80s. Earlier in the night patient was slightly hypotensive to 88/63 with lowering UOP and he was bolused 500cc of LR. On arrival to the room, patient was laying in bed. Vitals at that time were 62/44. Patient stated he blacked out with standing and did not remember the event. The next thing he remembers was being back in the bed laying down. Patient denied any chest pain, difficulty breathing/SOB, dizziness, or lightheadedness. Patient only endorsed abdominal pain provoked by moving. A CBC, CMP, and Mg were sent stat and he was bolused 1L of fluids during MD evaluation. An ECG was obtained which showed normal sinus rhythm and was unconcerning for an acute cardiac process, no arrhythmia was identified. Patient was placed in the Trendelenburg position and a passive leg raise was performed which demonstrated an increase in blood pressure to 91/53 after 3 minutes. Labs demonstrated an MONTY with Cr 2.03 (baseline 0.71). Given his responsiveness to initial fluid resuscitation, increased Cr, decreased UOP, and positive response to passive leg raise, patient's hypotension was determined to likely be due to dehydration. An additional 1L of LR was ordered for a total of 2.5L fluid resuscitation overnight with increase in the blood pressure to 108/68. Chief general surgery resident, Dr. Caldwell, and residential life director, Dr. Traylor, were additionally present during the code white. Clara Eatno MD General Surgery, PGY1 [facility] [id number] Electronic Signatures: Clara Eaton ( (Resident)) (Signed 15-Apr-2018 06:22) Authored: Event Last Updated: 15-Apr-2018 06:22 by Clara Eaton ( (Resident)) Normal [facility] Clinical Event Note-code whbranden suzy 04-15-2018 Clinical Event Note-code white Event: Topic: code white Details: Code White 04/15/17 0700 Code white called for hypotension, BP 61/4 HR 77. Notified team and MD came to bedside. BP rechecked on all limbs per MD and came up to 114/77 on RLE. Per MD continue to use this limb to take BPs. See VS flowsheet. STAT labs drawn and sent. Peggy Christopher RN Provider / Team Contact Information: Provider/Team Contact Info-Pager Number: [phone] Electronic Signatures: Angelica Christopher (STACI) (Signed 15-Apr-2018 10:21) Authored: Event, Provider / Team Contact Information Last Updated: 15-Apr-2018 10:21 by Angelica Christopher (STACI) Normal [facility] Daily Progress Note-Colorect al Surgeryon 04-15-2018 Daily Progress Note-Colorectal Surgery Service: Colorectal Surgery Subjective Data: ADEN PATEL is a 67 year old Male who is Hospital Day # 3. hypotension overnight and episode of near syncope. Received 2.5L bolus overnight and gave another this AM for persistent hypotension. No compliants of CP or SOB. No N/V. Having flatus, no BM. Objective Data: Objective Information: ---- Intake and Output ----- Mn/Dy/Year TimeIntakeOutputNet Apr 14, 2018 10:00 [id number] Apr 14, 2018 2:00 [id number] The Intake and Output Totals for the last 24 hours are: IntakeOutputNet [id number] T PRBPSpO2 Value37.9531519/5094% Date/Time04/15 8: 9: 9: 9: 9:29 Range(36.2C - 37.1C ) (70 - 83 ) (16 - 22 ) (61 - 130 )/ (44 - 79 ) (92% - 98% ) As of 15-Apr-2018 07:19:00, patient is on 2 L/min of oxygen via nasal cannula. Highest temp of 37.1 C was recorded at 04/15 8:02 Physical Exam: Constitutional: Well developed, awake/alert/oriented x3, no distress, alert and cooperative Eyes: EOMI, clear sclera Head/Neck: Neck supple, trachea midline Respiratory/Thorax: Patent airways, good chest expansion, thorax symmetric Cardiovascular: Regular rate Gastrointestinal: Nondistended, soft, appropriately tender, no rebound tenderness or guarding, Incisions CDI Extremities: MCKEON x 4 Neurological: alert and oriented x3 Psychological: Appropriate mood and behavior Skin: Warm and dry, no lesions, no rashes Medication: Medications: CENTRAL NERVOUS SYSTEM AGENTS: 1. Acetaminophen: 650 mg Oral Every 6 Hours 2. HYDROmorphone WOOL BUYER 25 mg/ NaCL 0.9% 50 mL: 25 mg IV WOOL BUYER 3. Gabapentin: 300 mg Oral 3 Times a Day 4. Ondansetron Injectable: 4 mg IntraVenous Push Every 6 Hours PRN COAGULATION MODIFIERS: 1. Enoxaparin SubCutaneous: 40 mg SubCutaneous Every 24 Hours MISCELLANEOUS AGENTS: 1. Naloxone Injectable: 0.2 mg IntraVenous Push Once PRN 2. Nicotine 21 mg/ 24 hour TransDermal: 1 patch TransDermal Every 24 Hours NUTRITIONAL PRODUCTS: 1. Lactated Ringers Infusion: 1000 mL IntraVenous Currently Suspended Medications --- 1. Metoprolol Tartrate: 100 mg Oral Every 12 Hours Assessment and Plan: Assessment: 67yo M with Hx perforated appendicitis requiring appendectomy and ileocolic resection at [facility] 07/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 On 04/14/18 he underwent ex lap with takedown of ileocolic anastomosis and fistula takedwon with redo of ileocolic anastomosis, and was also found to have small enterovesical fistula that was taken down and primarily repaired and primary ventral hernia repair with placement of subcutaneous MADISON drain. -asymptomatic hypotension was due to false reading from upper extremities, likely has underlying vascular problems, hx of smoking. His right leg SBP is greater than 100. Continue to monitor, place on tele. -MONTY, with minimal UOP, check FENA, renal US, exchange mir catheter continue mir for small enterovesical fistula, likely need Ct cystogram POD5 -HGB stable, continue to monitor, no concerns for bleeding at this time -trial clears today, hep lock once tolerating good by mouth intake -ambulate IS -dvt ppx López Blake MD [place] [id number] Signature/Cosignature/Attesta tion: Attending AttestationI saw and evaluated the patient. I personally obtained the thibodeaux and critical portions of the history and physical exam or was physically present for thibodeaux and critical portions performed by the resident/fellow. I reviewed the resident/fellows documentation and discussed the patient with the resident/fellow. I agree with the resident/fellows medical decision making as documented in the residents note. I personally evaluated the patient (as noted in the above attestation) on 15-Apr-2018 Electronic Signatures: Ever Quigley) (Signed 21-Apr-2018 12:05) Authored: Signature/Cosignature/Attesta tion Co-Signer: Service, Subjective Data, Objective Data, Assessment and Plan López Blake (Fellow)) (Signed 15-Apr-2018 11:32) Authored: Service, Subjective Data, Objective Data, Assessment and Plan Last Updated: 21-Apr-2018 12:05 by Ever Quigley) Normal [facility] EMR ADDONon 04-15-2018 ADDON CONFIRMATION REQUEST REC'D Normal [facility] Comment on above: Performed By: #### E MRAD ####NO LOCATION NEEDED MAGNESIUMon 04-15-2018 Magnesium [Mass/Vol] 1.72 mg/dL Normal 1.60 - 2.40 [facility] Comment on above: Performed By: #### M G ####[id number] [place] [address] PHOSPHORUSon 04-15-2018 Phosphate [Mass/Vol] 6.9 mg/dL High 2.5 - 4.9 [facility] Comment on above: Result Comment: The performance characteristics of phosphorus testing in heparinized plasma have been validated by the individual laboratory site where testing is performed. Testing on heparinized plasma is not approved by the FDA; however, such approval is not necessary. Performed By: #### P HOS ####[id number] [place] [address] SODIUM, URINE SPOTon 019 CREATININE,URINE 2.6 mg/dL Low 20.0 - 370.0 [facility] Comment on above: Performed By: #### S ODS2 ####[id number] [place] [address] Sodium (U) [Moles/Vol] 12 mmol/L Normal Not Established [facility] Comment on above: Performed By: #### S ODS2 ####[id number] [place] [address] SODIUM/CREAT RATIO 462 mmol/g Creat Normal Not Established [facility] Comment on above: Performed By: #### S ODS2 ####[id number] [place] [address] US RENAL BILATon 04-15-2018 US RENAL BILAT Patient Name: ADEN PATEL STUDY: US RENAL BILAT; 04/15/2018 1:40 pm INDICATION: Signs/Symptoms: Olguric. COMPARISON: None. ACCESSION NUMBER(S): [id number] ORDERING CLINICIAN: MARQUEZ BRONSON TECHNIQUE: Grayscale and color Doppler sonographic images of the kidneys. FINDINGS: RIGHT KIDNEY: Right kidney measures 10.3 cm cranial caudally with normal cortical echogenicity. No hydronephrosis. No calculus or perinephric fluid. LEFT KIDNEY: Left kidney measures 9.5 cm cranial caudally with normal cortical echogenicity. No hydronephrosis. No calculus or perinephric fluid. URINARY BLADDER: Urinary bladder is partially decompressed with a Mir catheter within. Evaluation is limited. Small amount of fluid is seen around the liver and a mixed fluid collection which is not well evaluated with ultrasound. IMPRESSION: 1. Grossly normal small with no hydronephrosis. 2. Partially visualized complex fluid collection in the abdomen which is not well evaluated. Correlate with cross-sectional imaging such as CT. I personally reviewed the image(s)/study and resident interpretation. I agree with the findings as stated. This study was interpreted at [facility]. Electronically signed by: CARLA VALENTINO MD, PHD Normal [facility] ABO/RH GROUP TESTon 04-14-19 19 ABO TYPE A Normal [facility] Comment on above: Performed By: #### V ERAB ####[id number] [place] [address] RH TYPE Positive Normal [facility] Comment on above: Performed By: #### V ERAB ####[id number] [place] [address] Clinical Event Note-Post Op Checkon 04-14-2018 Clinical Event Note-Post Op Check Event: Topic: Post Op Check Details: Surgery Post Op Check Note S: No acute events since surgery. Pain is adequately controlled. No complaints. O: T 36.7 HR 75 BP 128/79 RR 18 Sat 94% Gen: NAD Neuro: Alert, oriented, conversant Card: regular rate and rhythm no murmurs Pulm: Non-labored breathing; CTABL, no wheezing Abd: Soft, appropriately tender without rebound or guarding, nondistended. Incisions with surgical dressing overlying c/d/i. MADISON drain with minimal sanguinous output. Ext: Warm, well perfused, MAEE, SCDs in place A/P POD#0 s/p exploratory laparotomy, takedown of enterocutaneus fistula, resection of previous ileocolic anastomosis, recreation of ileocolic anastomosis, takedown of enterovesicle fistula with primary repair of bowel and bladder. Primary closure of ventral hernia, subcutaneous drain placement. Pt tolerated procedure well. No acute events. 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 SCDs, IS Electronic Signatures: Pantera Wilcox (Resident)) (Signed 14-Apr-2018 17:03) Authored: Event Nolvia Colmenares) (Signed 20-Apr-2018 06:25) Co-Signer: Event Last Updated: 20-Apr-2018 06:25 by Nolvia Colmenares) Normal [facility] History and Physical - Surgi vasiliy Update < 30 dayson 04-14-2018 History and Physical - Surgical Update < 30 days History & Physical Reviewed: I have reviewed the History and Physical dated: 14-Apr-2018 History and Physical reviewed and relevant findings noted. Patient examined to review pertinent physical findings.: No significant changes Home Medications Reviewed: no changes noted Allergies Reviewed: no changes noted This patient has been seen and discussed with the attending physician responsible for performing the procedure: yes Signatures/Attestation/Certif ication: Attending AttestationI saw and evaluated the patient. I personally obtained the thibodeaux and critical portions of the history and physical exam or was physically present for thibodeaux and critical portions performed by the resident/fellow. I reviewed the resident/fellows documentation and discussed the patient with the resident/fellow. I agree with the resident/fellows medical decision making as documented in the residents note. I personally evaluated the patient (as noted in the above attestation) on 14-Apr-2018 Attending Provider Inpatient Certification StatementI certify this patients need for inpatient care based on the above documentation including; the order to admit as inpatient, the anticipated length of stay, diagnosis, problem list and plan of care, and discharge plan. Electronic Signatures: Nolvia Colmenares) (Signed 20-Apr-2018 05:47) Authored: Signatures/Attestation/Certif ication Co-Signer: History & Physical Reviewed, Signatures/Attestation/Certif ication López Blake (Fellow)) (Signed 14-Apr-2018 07:15) Authored: History & Physical Reviewed, Signatures/Attestation/Certif ication Last Updated: 20-Apr-2018 05:47 by Nolvia Colmenares) [facility] OPERATIVE REPORTon 9 [place] [address] Patient Name: ADEN PATEL : 1950 Date of Service: 04/14/2018 Patient Location: [facility] Patient Type: I Surgeon: Nolvia Colmenares MD Report Type: Operative Reports PREOPERATIVE DIAGNOSIS: Enterocutaneous fistula and ventral hernia. POSTOPERATIVE DIAGNOSIS: 1. Enterocutaneous fistula and ventral hernia. 2. Sigmoid colon diverticulitis and enterovesical fistula. OPERATION/PROCEDURE: Exploratory laparotomy, extensive lysis of adhesions, takedown of enterocutaneous fistula, resection of ileocolic anastomosis, redo ileocolic anastomosis, takedown of enterovesical fistula with primary repair of small bowel and bladder, primary closure of ventral hernia. SURGEON: Nolvia Colmenares MD DIRECTOR GLOBAL SALES(S): López Robles Ma, MD ANESTHESIA: General endotracheal. INDICATIONS: The patient is a 67-year-old male who underwent appendectomy and ileocolic resection at an outside hospital for perforated appendicitis in July 2017, That procedure was complicated by development of an enterocutaneous fistula to the midline wound from an ileal conduit anastomotic leak. The patient was managed conservatively at that time with total parenteral nutrition, which was recently stopped as the patient was tolerating a normal diet and maintaining his nutritional status. Output from his enterocutaneous fistula persists, but is low volume. The patient is in need of hip replacement surgery and the presence of the enterocutaneous fistula is a contraindication. After extensive discussion with the patient in the clinic, he is brought to the operating room today for takedown of the enterocutaneous fistula. TECHNIQUE: The patient was brought to the operating room and was placed on the operating table in supine position. After induction of general endotracheal anesthesia, the skin of the abdomen was prepped and draped in the usual sterile fashion. Surgical time-out was performed. Peritoneal cavity was entered through patient's previous midline incision. We carried the incision around the enterocutaneous fistula in the midline abdomen and predominantly downward towards the symphysis pubis. An extensive lysis of adhesions was then performed to mobilize the small bowel from the underside of the abdominal wall and from the lateral abdominal sidewalls. The enterocutaneous fistula was disconnected from the skin and was taken down. Further adhesiolysis freed all of the interloop adhesions, so small bowel was entirely mobilized from the ligament of Treitz to the ileocolic anastomosis. The ileocolic anastomosis was the origin of the enterocutaneous fistula. The ileocolic anastomosis was therefore resected and was sent to Pathology. A new octt-nu-hcaj functional end-to-end ileocolic anastomosis was then created. This was done using a firing of the TAN-80 mm stapler. The open end of the bowel was closed with a firing of the TA-60 stapler, and the staple line was oversewn with a running 3-0 Vicryl stitch for hemostasis. The mesenteric defect was then reapproximated with interrupted 0 chromic dlxwxk-qo-jevkh sutures. Attention was then turned to the pelvis. There was a loop of mid small bowel which was adherent to the posterior wall of the bladder. This was mobilized off the posterior wall of the bladder and covering an enterovesical fistula. The small bowel at this site was otherwise normal in appearance, and therefore, it was repaired primarily with interrupted 3-0 Vicryl seromuscular sutures. The posterior wall of the bladder was also repaired, and the site of the fistula was imbricated with 2-0 Vicryl seromuscular sutures. The sigmoid colon was inspected. There were changes of chronic diverticulitis present. The sigmoid colon was thickened, but there was no evidence of obstruction nor of perforation. The decision was made not to pursue with sigmoid colectomy at this time as there was no clear clinical indication, and I did not want to add undue complexity to the patient's procedure. The abdomen was then irrigated with saline solution and was aspirated dry. Inspection was made for hemostasis, and this was found to be adequate. Sponge, needle, and instrument counts were confirmed as correct. The fascial edges of the hernia defect were defined and the subcutaneous fat and skin were elevated. This allowed us to bring the fascia together in the midline with moderate tension. The ventral hernia was therefore repaired primarily with interrupted #1 Prolene vdrmdu-za-jejiv stitches. A 10 mm Josh-Adler drain was placed at the subcutaneous space and was brought out through a stab incision in the right lower quadrant. The wound was then irrigated and the skin was closed with bud. Sterile dressings were applied. The patient tolerated the above procedure, was taken to the recovery room in stable condition. ESTIMATED BLOOD LOSS: 20 cc. SPECIMEN: Ileocolic anastomosis with enterocutaneous fistula. DRAIN: 10 mm Josh-Adler drain to the subcutaneous space. COMPLICATIONS: None. ATTESTATION: Dr. Nolvia Colmenares was the operating surgeon, who performed the entire procedure as described above. Dr. López Blake was the surgical services asst. Nolvia Colmenares MD EST TT: 04/22/2018 04:43 PM EST DICTATION NUMBER: [id number] [facility] JOB NUMBER: [id number] CC: Quentin Rangel, [id number] Electronically Signed by Dr. Nolvia Colmenares 05/03/2018 02:54:01 PM Normal [facility] Patient Profile - Preop v2on 04-14-2018 Patient Profile - Preop v2 Profile: Initial Info: How to be Addressedpaul(1) Spoken Language PreferredEnglish (1) Are you currently using the [employer] Health Record or [facility]no (1) Are you interested in learning more about [employer] for the management of your healthnot at this time Stated Reason for Admissionbowel resection Primary Contact Name and [id number] Patient Belongingsremains with patient; under cart Medications Brought to Hospitalno General Health: Weight in kg96.6 kilogram(s) Weight in dcx380.9 pound(s) Weight Methodstated Height in cm182.8 centimeter(s) Height in feet6 feet Height in inches0 inch(es) Height Methodstated BMI (kg/m2)28.908 square meter Patient or Family Member Reaction to Anesthesiano previous reaction Blood Avoidance/Restrictionsnone Previous Transfusion Reactionno Health Mgmt: Symptoms/Conditions Managed at Homegastrointestinal; cardiovascular; genitourinary Cardiovascular Symptoms/Conditionshypertensi on Gastrointestinal Symptoms/Conditionsh/o diverticulitis bowel resection Genitourinary Symptoms/Conditionsgout Barriers to Managing Healthnone Relationship/Environ: Lives Withspouse(1) Living Arrangementshouse(1) Resource/Environmental Concernsnone [facility] Anticipated at Transitionnone Substance: Current or Former Substance Use YES: Cigarette/Tobacco Tobacco Cessation Education (provide if tobacco use within the last 12 mos) patient declined Other Tobacco Use Commentspt cutting down smoking Risk Screens: Advance Directive Medicalyes During the past month, have you often been bothered by feeling down, depressed or hopelessno During the past month, have you often had little interest or pleasure in doing thingsno Have you had any thoughts of harming yourselfno Have you had any thoughts of harming anyone elseno Patient is Able to be Assessed for Learningyes Factors Influencing Readiness to Learnacuteness of illness Factors that Impact Ability to Learnnone Devices/Methods Used to Communicatenone Learning Preferencesverbal instruction; written material Cultural Considerationsnone Developmental Considerationsnone Holiness Considerationsnone Other learner availableno Falls RiskPatient location auto qualifies him/her for HIGH RISK. Are there any cultural, spiritual, confucianist practices/values/needs that are important for us to knowno Pain Scalenumerical 0-10 Pain Scale Educationteaching provided Current Pain Level0 = None Acceptable Pain Level0 = None Chronic Painyes Information Review: Allergies, Home Meds and Significant Events have been Reviewed and Verified with Patient/Familyyes Allergy, Intolerance, Adverse Event: Allergies: No Known Allergies: Active Electronic Signatures: Марина Krishnamurthy (RN) (Signed 14-Apr-2018 06:54) Authored: Profile, Additional Information Last Updated: 14-Apr-2018 06:54 by Марина Krishnamurthy (RN) References: 1. Data Referenced From Patient Profile - Adult v2 04/13/2018 5:58 PM Normal [facility] Preop Checkliston 04-14-2018 Preop Checklist Preop Checklist: Preop Checklist: Arrival [id number] NPO [id number] 00:00 ID Band Onyes Allergy Bandno known allergies H&P Completeyes EKG Performedyes Hair Washedno Soap and water bath with hair shampoo the night before surgeryno SCD's Appliedno MITCH Hose Appliedno Valuables Securedsent with family Glasses / Contactssent with family Bowel Prepyes TypeGolytely Bowel Prep Completed as Instructedyes Stools Clearyes Cardiovascular Assessment: Apicalregular Radial Pulsespalpable Pedal Pulsespalpable Extremitiescool Central Venous Access DevicePERIPHERAL Respiratory Assessment: Respirationsunlabored Air Exchangegood Neurological Assessment: Level of Consciousnessalert, oriented, X4 Mobilitymoves all extremities Able to Express Selfyes Age Appropriateyes Emotional Statuscalm Preop Education: Surgical Site Infection Preventionno Pain Scales and Managementno Language / Communication: Language / CommunicationEnglish Electronic Signatures: Medardo Padgett) (Signed 14-Apr-2018 06:38) Authored: Preop Checklist Last Updated: 14-Apr-2018 06:38 by Medardo Padgett (GORDON) Normal [facility] TYPE + SCREENon 04-14-2018 ABO TYPE A Normal [facility] Comment on above: Performed By: #### T +S ####[id number] [place] [address] RH TYPE Positive Normal [facility] Comment on above: Performed By: #### T +S ####[id number] [id number] [facility] Surgical Pathology Depar tmenton 04-14-2018 [facility] Surgical Pathology Department Name ADEN PATEL Pathologist: MARISSA MCMULLEN MD Date of Procedure: 04/14/2018 Date Received: 04/14/2018 Date Reported 04/20/2018 Submitting Physician: NOLVIA COLMENARES MD Location: [facility] Other External # FINAL DIAGNOSIS A. ILEOCOLIC ANASTOMOSIS WITH ENTEROCUTANEOUS FISTULA, RESECTION: -- SMALL INTESTINE AND COLONIC ANASTOMOTIC SITE WITH ULCERATION, EXTENSIVE UNDERLYING FIBROSIS AND REACTIVE CHANGES. -- FULL-THICKNESS MURAL DEFECT WITH ULCERATION, GRANULATION TISSUE, AND FOREIGN-BODY GRANULOMAS, CONSISTENT WITH FISTULA TRACT. -- REMAINDER OF TERMINAL ILEUM AND COLON WITH NO SIGNIFICANT PATHOLOGIC FINDINGS. The gross and/or microscopic findings were reviewed in conjunction with pathology resident, DIPAK Martinez. Electronically Signed Out By MARISSA MCMULLEN MD/JOSH By the signature on this report, the individual or group listed as making the Final Interpretation/Diagnosis certifies that they have reviewed this case. Clinical History: Enterocutaneous fistula Specimens Submitted As: A: ILEOCOLIC ANASTOMOSIS WITH ENTEROCUTANEOUS FISTULA Gross Description: A: Received in formalin, labeled with the patient's name and hospital number and ileocolic anastomosis with enterocutaneous fistula, is a segment of terminal ileum, 10.0 cm, anastomosed to a segment of colon, 4.0 cm. A distal staple line is present on the colon, and the proximal end of the terminal ileum is open. Protruding from the anastomosis site is a tubular segment of arellano-brown and arellano-red soft tissue, 5.2 x 2.2 x 1.8 cm, with a central fistula tract connecting to the bowel, and possible skin present at the distal aspect. Also present is a 2.5 x 1.5 x 1.5 cm portion of raised, arellano-white to arellano-brown edematous soft tissue with fistula tract connecting to the anastomosis site; this portion of soft tissue lies 2.2 cm from the longer fistula tract. The bowel mucosa is arellano-brown and firm at the anastomosis site. No other gross lesions are identified in the bowel. Photographs have been taken. Air Traffic Control Manager sections are submitted in 7 cassettes. NPH Summary of Cassettes: Specimen Label Site A 1-2 longer fistula tract with possible skin, 2 medical office representative sections 3 shorter fistula tract 4 anastomosis site 5 proximal margin, en face 6-7 distal margin, en face nph/04/14/2018 Normal [facility] Comment on above: Performed By: #### [facility] ####[facility] Surgical Pathology [id number] [place] [facility] [id number] Admission Risk Screen - Adul ton 04-13-2018 Admission Risk Screen - Adult Allergies: Allergies: No Known Allergies: Patient Verification: New W ID Band Applied in my Departmentyes Patient Identity Verified Bypatient ID Band FULL Name, include Middle, spelling matches patient's ID used for verificationyes ID Band Matches Patient ID used for Verficationyes ID Band MRN Matches EMR MRNyes Advance Directive: Advance Directive Medicalno Advance Directive Information Givenpatient/family declined Falls Screen: Type of Assessmentadmission Moderate Risk Factorspatient care equipment (scds, ivs, chest tubes, mir, etc) High Risk Factorsgait instability Risk for Injury Associated with Fallnone Fall Risk Conclusionhigh falls risk with low risk for associated injury [place] Safety InterventionsWDL *orient to call system *instruct to call for assistance before getting out of bed *non-slip footwear when patient is out of bed *call murray in reach *personal items and telephone in reach *physically safe environment (no spills or clutter) *bed in lowest position with wheels locked *appropriate side rails in place *room/bathroom lighting operational, light cord in reach *appropriate signage on door Fall and Injury Risk Interventionseducate patient/family for risk for injury (fractures and bleeding) Family Violence Screen: Are you or have you been threatened or abused physically, emotionally, or sexually by anyoneno Has anyone ever threatened to hurt your family or your petsno Does anyone try to keep you from having/contacting other friends or doing things outside your homeno Do you feel UNSAFE going back to the place where you are livingno Do you feel anyone has exploited or taken advantage of you financially or of your personal propertyno Clinical assessment: Are there any apparent signs of injuries/behaviors that could be related to abuse/neglectno Social Service Consult for abuse/neglect needed this visitno Functional screen: Functional Screen: In the recent/past 2-4 weeks, patient or family have noticedno issues that require a rehabilitation consult at this time Learning Assessment (Patient): Patient is Able to be Assessed for Learningyes Factors Influencing Readiness to Learnacuteness of illness Factors that Impact Ability to Learnnone Devices/Methods Used to Communicatenone Learning Preferencesskill demonstration Cultural Considerationsnone Developmental Considerationsnone Holiness Considerationsnone Other Learnersspouse Learning Assessment (Other Learner): Other learner availableyes... Learnerspouse Factors Influencing Readiness to Learninterest in learning Factors that Impact Ability to Learnnone Devices/Methods Used to Communicatenone Learning Preferencesaudio Cultural Considerationsnone Developmental Considerationsnone Holiness Considerationsnone Suicide/Depression Screen: During the past month, have you often been bothered by feeling down, depressed or hopelessno During the past month, have you often had little interest or pleasure in doing thingsno Have you had any thoughts of harming yourselfno Have you had any thoughts of harming anyone elseno Adult Nutrition Screen: Have you recently lost weight without tryingno Have you been eating poorly because of a decreased appetiteno MST Score0 RiskMST = 0 or 1 Not at risk. Eating well with little or no weight loss Nutrition Consult needed this visitno Can Patient Participate in Room Serviceyes Patient requires Paper Dishes/Plastic Utensilsno Pain Screen: Pain Scalenumerical 0-10 Pain Scale Educationteaching provided Current Pain Level0 = None Acceptable Pain Level3 = Mild Expression of Pain (nonverbal)none Chronic Painno Spiritual Screen: Are there any cultural, spiritual, confucianist practices/values/needs that are important for us to knowno Do you want a visit/item from Pastoral Careno Would you like your Chipper/Flanging Machine Operator notifiedno CAGE: Is this an injured patient at a Trauma Center ([facility]/[place]): no Vaccinations: Vaccination - Influenza Vaccination Screen: Is it flu season (between and )Yes Screening for identified contraindications to influenza vaccination patient/caregiver refusal Vaccination - Pneumonia Vaccination Screen: Patient has received a previous pneumonia vaccine:no/unknown... Pneumonia vaccine NOT indicated due to:patient/caregiver refusal at this time Noam: Skin - Noam Scale: Noam: Sensory Perception (response to environment)(4) no impairment Noam: Moisture (degree skin exposed to moisture)(4) rarely moist Noam: Activity (ability to walk)(3) walks occasionally Noam: Mobility (amount/control of body movement)(4) no limitation Noam: Nutrition (quality of food intake)(3) adequate Noam: Friction and Shear(3) no apparent problem Noam: Score21 Significant Indicatiors: Significant Indicators: Complete Pressure Injury: Pressure Injuryno Electronic Signatures: Alanna Roblero (GORDON) (Signed 13-Apr-2018 17:57) Authored: Admission Risk Screens, Vaccinations, Noam, Pressure Injury Last Updated: 22-Apr-2018 14:00 by Estefania MenjivarRN) Normal [facility] CBC AND DIFFERENTIALon 04-13 % AUTOMATED IMMATURE GRAN 0.4 % Normal 0.0 - 0.9 [facility] Comment on above: Result Comment: Perc ent differential counts (%) should be interpreted in the context of the absolute cell counts (cells/L). Performed By: #### C BCDF #### [facility] [address] [place] [address] Basophils (Bld) [#/Vol] 0.06 10*3/uL Normal 0.00 - 0.10 [facility] Comment on above: Performed By: #### C BCDF #### [facility] [address] [place] [address] Basophils/100 WBC (Bld) 0.9 % Normal 0.0 - 2.0 [facility] Comment on above: Performed By: #### C BCDF #### [facility] [address] [place] [address] Eosinophils (Bld) [#/Vol] 0.09 10*3/uL Normal 0.00 - 0.70 [facility] Comment on above: Performed By: #### C BCDF #### [facility] [address] [place] [address] Eosinophils/100 WBC (Bld) 1.3 % Normal 0.0 - 6.0 [facility] Comment on above: Performed By: #### C BCDF #### [facility] [address] [place] [address] Erythrocyte distribution width (RBC) [Ratio] 14.6 % High 11.5 - 14.5 [facility] Comment on above: Performed By: #### C BCDF #### [facility] [address] [place] [address] Hematocrit (Bld) [Volume fraction] 40.8 % Low 41.0 - 52.0 [facility] Comment on above: Performed By: #### C BCDF #### [facility] [address] [place] [address] Hemoglobin (Bld) [Mass/Vol] 13.5 g/dL Normal 13.5 - 17.5 [facility] Comment on above: Performed By: #### C BCDF #### [facility] [address] [place] [address] Lymphocytes (Bld) [#/Vol] 1.60 10*3/uL Normal 1.20 - 4.80 [facility] Comment on above: Performed By: #### C BCDF #### [facility] [address] [place] [address] Lymphocytes/100 WBC (Bld) 23.5 % Normal 13.0 - 44.0 [facility] Comment on above: Performed By: #### C BCDF #### [facility] [address] [place] [address] MCHC (RBC) [Mass/Vol] 33.1 g/dL Normal 32.0 - 36.0 [facility] Comment on above: Performed By: #### C BCDF #### [facility] [address] [place] [address] MCV (RBC) [Entitic vol] 96 fL Normal 80 - 100 [facility] Comment on above: Performed By: #### C BCDF #### [facility] [address] [place] [address] Monocytes (Bld) [#/Vol] 0.73 10*3/uL Normal 0.10 - 1.00 [facility] Comment on above: Performed By: #### C BCDF #### [facility] [address] [place] [address] Monocytes/100 WBC (Bld) 10.7 % Normal 2.0 - 10.0 [facility] Comment on above: Performed By: #### C BCDF #### [facility] [address] [place] [address] Neutrophils (Bld) [#/Vol] 4.31 10*3/uL Normal 1.20 - 7.70 [facility] Comment on above: Performed By: #### C BCDF #### [facility] [address] [place] [address] Neutrophils/100 WBC (Bld) 63.2 % Normal 40.0 - 80.0 [facility] Comment on above: Performed By: #### C BCDF #### [facility] [address] [place] [address] Nucleated RBC/100 WBC (Bld) [Ratio] 0.0 /100 WBC Normal 0.0-0.0 [facility] Comment on above: Performed By: #### C BCDF #### [facility] [address] [place] [address] Platelets (Bld) [#/Vol] 240 10*3/uL Normal 150 - 450 [facility] Comment on above: Performed By: #### C BCDF #### [facility] [address] [place] [address] RBC (Bld) [#/Vol] 4.27 x10E12/L Low 4.50 - 5.90 [facility] Comment on above: Performed By: #### C BCDF #### [facility] [address] [place] [address] WBC (Bld) [#/Vol] 6.8 10*3/uL Normal 4.4 - 11.3 [facility] Comment on above: Performed By: #### C BCDF #### [facility] [address] [place] [address] COAGULATION SCREENon 019 aPTT Coag (Bld) [Time] 36 s Normal 28 - 38 [facility] Comment on above: Result Comment: Note new reference range as of 01/17/2018. THE APTT IS NO LONGER USED FOR MONITORING UNFRACTIONATED HEPARIN THERAPY. FOR MONITORING HEPARIN THERAPY, USE THE HEPARIN ASSAY. Performed By: #### C OAGS #### [facility] [address] [place] [address] INR Coag (PPP) [Relative time] 1.0 {INR} Normal 0.9 - 1.1 [facility] Comment on above: Performed By: #### C OAGS #### [facility] [address] [place] [address] PT Coag (PPP) [Time] 11.3 s Normal 9.7 - 12.7 [facility] Comment on above: Result Comment: Note new reference range as of 01/17/2018. Performed By: #### C OAGS #### [facility] [address] [place] [address] Discharge Planning Noteon Discharge Planning Note Discharge Needs Assessment: Discharge Planning Assessment [id number] Discharge Planning Assessment Completed byNICK Stafford Readmission Within the Last 30 Daysno previous admission in last 30 days Adult Information: Lives Withspouse Financial Concernsnone Patient Learning: Factors that Impact Ability to Learnnone(1) Other Learner: Learnerspouse(1) Factors that Impact Ability to Learnnone(2) Other Factors: Functional Screen: In the recent/past 2-4 weeks, patient or family have noticedno issues that require a rehabilitation consult at this time(2) Discharge Planning: Discharge Plannin04/13/18 1700 pt arrived in stable condition from home accompanied by . Oriented to room and safety procedures. IV inserted in right arm. Admission completed. Alexia LEYVA 04/20/18 @ 1145 Pathology Tech: attempted to see pt, but he was in surgery. NICK Stafford 04/21/18 1500 Pathology Tech: Attempted to see pt today, but he was having a central line placed. Per CEILING INSTALLER, Serjio Alarcon, tentative plan is for surgery on 04/24 for abd wound closure. NICK Stafford 04/24/18 @ 1530 supply coordinator: attempted to see pt, but he was in surgery for abd wound closure. NICK Stafford 04/27/18 @ 1705 supply coordinator: Interdisciplinary rounds completed at the bedside with the patient and . Pt admitted sp takedown of EC fistula, VHR, returned to OR for several surgeries: evac of hematoma and then Rx ischemic jejunum and then SBR with abd wound closure. Plan of care and goals for discharge reviewed with the patient. Patient informed of tentative discharge date. Pt lives independently at home with . Pt ambulates with a crutch due to bad hip and gout. Pt had [facility] care nurse in the past for wound care. Address/phone verified. Home phone [phone] and 's cell [phone]. Pt has insurance, Aetna and Medicare a/b. PCP is Dr Rangel and preferred pharmacy is [facility] in [place]. Pt eval recommends SNF, but believes pt will be strong enough to go home with home care after discharge and if so would like [facility] home care. PT/OT will continue to evaluate discharge needs. SNF vs Home Care. NICK Stafford 04/28/18 1146 supply coordinator note: In Interdisciplinary rounds I was told that the pt and do not want pt to go to a SNF despite PT recommending one. I will send preliminary home care referral to [facility] via the ACM. Марина Fuentes RN Pathology Tech 05/01/18 @ 1124 Pathology Tech: Pt will discharge home today with and home care from [facility] for RN and PT. Pt/ given the name and number to Reynaldo, Dr Colmenares and CRS director of managed care to call with any questions or concerns. NICK Stafford 05-01-2018 11:39 Discharge Planning Progress Note - AC 05/01/18 @ 1105 IMM delivered to the pt. The IMM was signed, dated and copy given to pt and original placed in chart. (Hannah Shin RN) 05/01/18 @1250 Patient Computer Technical Specialist Note: Final HCO sent to [facility] for RN and PT service. NIKITA Mart [phone] 05/01/18 @ 6991: Pt discharged from [facility]. Pt given discharge instructions, present for teaching. PICC line removed from L upper arm. L upper arm appears to be swollen before and after removal. BI ARCHITECT is aware and still advises. to remove PICC. Swelling began to decrease prior to discharge. Pt given information on new blood pressure medications and follow up appointment info. Home care orders set up with pt. Pt taken to 's car in wheel chair by RN. Pt denies other needs at this time. Rosie Ramon RN Electronic Signatures: Марина Fuentes (GORDON) (Signed 28-Apr-2018 11:43) Authored: Discharge Planning Note Rosie Ramon) (Signed 01-May-2018 20:24) Authored: Discharge Planning Note Hannah Shin (CLIN COOR) (Signed 01-May-2018 11:30) Authored: Discharge Planning Note Alanna Roblero (RN) (Signed 13-Apr-2018 18:04) Authored: Discharge Planning Note Layne Chaney (PCN) (Signed 01-May-2018 12:51) Authored: Discharge Planning Note Last Updated: 01-May-2018 20:24 by Rosie Ramon (GORDON) References: 1. Data Referenced From 5. Education 04/13/2018 5:52 PM 2. Data Referenced From Admission Risk Screen - Adult 04/13/2018 5:52 PM Normal [facility] HEPATIC FUNCTION PANELon ALP [Catalytic activity/Vol] 112 U/L Normal 33 - 136 [facility] Comment on above: Performed By: #### H EPFP #### [facility] [address] [place] [address] ALT [Catalytic activity/Vol] 13 U/L Normal 10 - 52 [facility] Comment on above: Result Comment: Darlene ents treated with Sulfasalazine may generate falsely decreased results for ALT. Performed By: #### H EPFP #### [facility] [address] [place] [address] AST [Catalytic activity/Vol] 17 U/L Normal 9 - 39 [facility] Comment on above: Performed By: #### H EPFP #### [facility] [address] [place] [address] Bilirubin [Mass/Vol] 0.8 mg/dL Normal 0.0 - 1.2 [facility] Comment on above: Performed By: #### H EPFP #### [facility] [address] [place] [address] Bilirubin.direct [Mass/Vol] 0.2 mg/dL Normal 0.0 - 0.3 [facility] Comment on above: Performed By: #### H EPFP #### [facility] [address] [place] [address] Protein [Mass/Vol] 7.2 g/dL Normal 6.4 - 8.2 [facility] Comment on above: Performed By: #### H EPFP #### [facility] [address] 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 The ECF tract travels from his ileocolic resection anastomosis to the midline abdominal wound. He underwent a course of TPN for malnutrition which he has been off 4 weeks. His output has significantly decreased and he has to change the bandage every 2 days. He underwent a colonoscopy prior to arrival today which showed a small fistulous tract at the anastomosis. He denies recent fevers/chills, CP, SOB, N/V, or changes in bowel movements. PMH: HTN Diverticulitis Appendicitis PSH: R Inguinal hernia repair as child Appendectomy and ileocolic resection Family hx: HTN Rectal cancer in brother [place] in both parents Social: Current everyday smoker, 0.5ppd for 40+yrs Drinks 2 mixed drinks/day, quit 2 weeks ago Denies recreational drug use Comorbidities: Comorbid Conditionshypertension Allergies: No Known Allergies: Review of Systems: Constitutional: NEGATIVE: Fever, Chills Respiratory: NEGATIVE: Shortness of Breath Cardiac: NEGATIVE: Chest Pain Gastrointestinal: POSITIVE: Diarrhea; NEGATIVE: Nausea, Vomiting, Abdominal Pain; COMMENTS: occasional Genitourinary: NEGATIVE: Dysuria, Frequency All Other Systems: All other systems reviewed and are negative Objective: Objective Information: T PRBPSpO2 [id number]/7899% Date/Time04/13 19:4804/13 19:4804/13 19:4804/13 19:4804/13 19:48 Range(36.2C - 36.3C ) (53 - 67 ) (18 - 18 ) (171 - 172 )/ (78 - 98 ) (97% - 99% ) Physical Exam: Constitutional: No acute distress Eyes: Nonicteric Respiratory/Thorax: Breathing unlabored on room air Cardiovascular: RRR Gastrointestinal: Soft, nondistended, nontender to palpation, incisional hernia present, small EC fistula present supraumbilical through midline abdominal scar with no output on exam Extremities: No edema Neurological: A&Ox3 Skin: Warm and well perfused Assessment and Plan: Assessment: 67yo M with PMH of HTN, complicated left sided diverticulitis, and perforated appendicitis requiring appendectomy and ileocolic resection at OSH 07/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 He underwent a colonoscopy prior to arrival today which showed a small fistulous tract at the anastomosis. Plan: -Admit to [facility] -CLD, NPO at nm -Resume home beta jeannette as metoprolol 100mg BID -SCDs, SQH -Consented for OR tomorrow Discussed with Dr. Sanjana Eaton MD General Surgery, PGY1 [facility] [address] Signatures/Attestation/Certif ication: Attending AttestationI saw and evaluated the patient. I personally obtained the thibodeaux and critical portions of the history and physical exam or was physically present for thibodeaux and critical portions performed by the resident/fellow. I reviewed the resident/fellows documentation and discussed the patient with the resident/fellow. I agree with the resident/fellows medical decision making as documented in the residents note. I personally evaluated the patient (as noted in the above attestation) on 13-Apr-2018 Attending Provider Inpatient Certification StatementI certify this patients need for inpatient care based on the above documentation including; the order to admit as inpatient, the anticipated length of stay, diagnosis, problem list and plan of care, and discharge plan. Electronic Signatures: Nolvia Colmenares) (Signed 20-Apr-2018 05:43) Authored: Signatures/Attestation/Certif ication Co-Signer: Assessment and Plan, Signatures/Attestation/Certif ication Clara Eaton (Resident)) (Signed 13-Apr-2018 21:40) Authored: History of Present Illness, Comorbidities, Allergies, Review of Systems, Objective, Assessment and Plan, Signatures/Attestation/Certif ication Last Updated: 20-Apr-2018 05:43 by Nolvia Colmenares) Normal [facility] History and Physical Comorbidities: Comorbid Conditionshypertension Allergies: No Known Allergies: Objective: Physical Exam: Constitutional: Well developed, awake/alert/oriented x3, no distress, alert and cooperative Eyes: PERRL, EOMI, clear sclera ENMT: mucous membranes moist, no apparent injury, no lesions seen Head/Neck: Neck supple, no apparent injury, thyroid without mass or tenderness, No JVD, trachea midline, no bruits Respiratory/Thorax: Patent airways, CTAB, normal breath sounds with good chest expansion, thorax symmetric Cardiovascular: Regular, rate and rhythm, no murmurs, 2+ equal pulses of the extremities, normal S 1and S 2 Gastrointestinal: Nondistended, soft, non-tender, no rebound tenderness or guarding, no masses palpable, no organomegaly, +BS, no bruits Genitourinary: No Discharge, vesicles or other abnormalities Musculoskeletal: ROM intact, no joint swelling, normal strength Extremities: normal extremities, no cyanosis edema, contusions or wounds, no clubbing Neurological: alert and oriented x3, intact senses, motor, response and reflexes, normal strength Breast: No masses, tenderness, no discharge or discoloration Lymphatic: No significant lymphadenopathy Psychological: Appropriate mood and behavior Skin: Warm and dry, no lesions, no rashes Assessment and Plan: Assessment: Proceed with diagnostic EGD and colonoscopy Signatures/Attestation/Certif ication: Attending Provider Inpatient Certification StatementN/A - observation patient/other outpatient visits Electronic Signatures: Nancy Kat) (Signed 13-Apr-2018 11:03) Authored: Comorbidities, Allergies, Objective, Assessment and Plan, Signatures/Attestation/Certif ication Last Updated: 13-Apr-2018 11:03 by Nancy Kat) Normal [facility] MAGNESIUMon 04-13-2018 Magnesium [Mass/Vol] 1.76 mg/dL Normal 1.60 - 2.40 [facility] Comment on above: Performed By: #### M G #### [facility] [address] [place] [address] Patient Profile - Adult v2on 04-13-2018 Patient Profile - Adult v2 Profile: Initial Info: How to be Addressedpaul(1) Spoken Language PreferredEnglish (1) Source of Informationpatient Are you currently using the Personal Electronic Health Record or [employer] (1) Stated Reason for Admissionsurgery in the morning Arrived Fromsears Patient Belongingsremains with patient Patient Belongings Remaining with Patientcell phone/electronics Medications Brought to Hospitalno General Health: Weight in kg94.7 kilogram(s) Weight in ahc106.7 pound(s) Height in feet6 feet Height in inches0 inch(es) Height in cm182.8 centimeter(s) BMI (kg/m2)28.339 square meter Weight Methodactual (measured) Scale Typebed Height Methodstated Blood Avoidance/Restrictionsnone(1) Previous Transfusion Reactionno(1) [facility] Based Care: How would you like to participate in your carecommunicate with me about what is going on What is the number one concern for you during this hospitalizationmy surgery What is the most important thing we can do to support you during this hospitalizationnothing Is there anything we need to know to best care for youno Substance: Current or Former Substance Use never: e-Cigarette/Vaping, Street Drugs YES: Cigarette/Tobacco(1), Alcohol Tobacco Cessation Education (provide if tobacco use within the last 12 mos) patient declined Alcohol Use Statuscurrent alcohol Alcohol Amount1-2 drinks Alcohol Frequency2-3 times/week Health Mgmt: Symptoms/Conditions Managed at Homegastrointestinal Gastrointestinal Managementnot managed Relationship/Environ: Primary Source of Support/Comfortspouse Lives Withspouse Living Arrangementshouse Resource/Environmental Concernsnone [facility] Anticipated at Transitionnone Significant IndicatorsComplete Information Review: Allergies, Home Meds and Significant Events have been Reviewed and Verified with Patient/Familyyes ALLERGY, INTOLERANCE, ADVERSE EVENT: Allergies: No Known Allergies: Active Electronic Signatures: Alanna Roblero (GORDON) (Signed 13-Apr-2018 18:02) Authored: Profile, Additional Information Last Updated: 13-Apr-2018 18:02 by Alanna Roblero (GORDON) References: 1. Data Referenced From Patient Profile - Preop v2 04/13/2018 10:42 AM Normal [facility] Patient Profile - Preop v2on 04-13-2018 Patient Profile - Preop v2 Profile: Initial Info: How to be Addressedpaul Spoken Language PreferredEnglish Are you currently using the Personal Electronic Health Record or [employer]no Are you interested in learning more about [facility] for the management of your healthnot at this time Stated Reason for Admissionegd/colonoscopy Primary Contact Name and [id number] Patient Belongingsremains with patient; under cart Medications Brought to Hospitalno General Health: Weight in kg96.6 kilogram(s) Weight in wgy605 pound(s) Weight Methodstated Height in cm182.8 centimeter(s) Height in feet6 feet Height in inches0 inch(es) Height Methodstated BMI (kg/m2)28.908 square meter Patient or Family Member Reaction to Anesthesiano previous reaction Blood Avoidance/Restrictionsnone Previous Transfusion Reactionno Health Mgmt: Symptoms/Conditions Managed at Homegastrointestinal; cardiovascular; genitourinary Cardiovascular Symptoms/Conditionshypertensi on Gastrointestinal Symptoms/Conditionsh/o diverticulitis bowel resection Genitourinary Symptoms/Conditionsgout Barriers to Managing Healthnone Relationship/Environ: Lives Withspouse Living Arrangementshouse Resource/Environmental Concernsnone [facility] Anticipated at Transitionnone Substance: Current or Former Substance Use YES: Cigarette/Tobacco Tobacco Cessation Education (provide if tobacco use within the last 12 mos) patient declined Other Tobacco Use Commentspt cutting down smoking Risk Screens: Advance Directive Medicalyes During the past month, have you often been bothered by feeling down, depressed or hopelessno During the past month, have you often had little interest or pleasure in doing thingsno Have you had any thoughts of harming yourselfno Have you had any thoughts of harming anyone elseno Patient is Able to be Assessed for Learningyes Factors Influencing Readiness to Learnacuteness of illness Factors that Impact Ability to Learnnone Devices/Methods Used to Communicatenone Learning Preferencesverbal instruction; written material Cultural Considerationsnone Developmental Considerationsnone Holiness Considerationsnone Other learner availableno Falls RiskPatient location auto qualifies him/her for HIGH RISK. Are there any cultural, spiritual, confucianist practices/values/needs that are important for us to knowno Pain Scalenumerical 0-10 Pain Scale Educationteaching provided Current Pain Level0 = None Acceptable Pain Level0 = None Chronic Painyes Information Review: Allergies, Home Meds and Significant Events have been Reviewed and Verified with Patient/Familyyes Allergy, Intolerance, Adverse Event: Allergies: No Known Allergies: Active Significant Events: 13-Apr-2018 umb hernia: Past Medical History, Active 13-Apr-2018 diverticulitis: Past Medical History, Active, bowel resection Electronic Signatures: Sarah Neff) (Signed 13-Apr-2018 10:47) Authored: Profile, Additional Information Last Updated: 13-Apr-2018 10:47 by Sarah Neff (STACI) Normal [facility] Preop Checkliston 04-13-2018 Preop Checklist Preop Checklist: Preop Checklist: Arrival [id number] Arrival Time10:30 Procedure Typecolonoscopy/egd NPO [id number] 08:00 ID Band Onyes Allergy Bandno known allergies Consent Signedpending H&P Completepending Anesthesia Assessment Completedpending EKG Performednot ordered Chest X-Ray Performednot ordered Chlorhexadine Bath Givennot applicable Hair Washednot applicable Soap and water bath with hair shampoo the night before surgerynot applicable SCD's Appliednot applicable MITCH Hose Appliednot ordered Denturesnot applicable Prostheticsnot applicable Hearing Aidsnot applicable Valuables Securedplaced under cart Glasses / Contactsplaced with belongings Bowel Prepyes TypeGolytely Bowel Prep Completed as Instructedyes Stools Clearyes Cardiovascular Assessment: Radial Pulsespalpable Extremitieswarm Respiratory Assessment: Respirationsunlabored Neurological Assessment: Level of Consciousnessalert Mobilitymoves all extremities Able to Express Selfyes Age Appropriateyes Emotional Statuscalm Preop Education: Surgical Site Infection Preventionyes Pain Scales and Managementyes Language / Communication: Language / CommunicationEnglish Electronic Signatures: Tona Cárdenas (GORDON) (Signed 13-Apr-2018 10:43) Authored: Preop Checklist Last Updated: 13-Apr-2018 10:43 by Tona Cárdenas (GORDON) Normal [facility] RENAL FUNCTION PANELon 04-13 Albumin [Mass/Vol] 4.5 g/dL Normal 3.4 - 5.0 [facility] Comment on above: Performed By: #### R ENAL ####[id number] [place] [address] Performed By: #### H EPFP #### [facility] [id number] [place] [address] Anion gap [Moles/Vol] 14 mmol/L Normal 10 - 20 [facility] Comment on above: Performed By: #### R ENAL ####[id number] [place] [address] Calcium [Mass/Vol] 10.0 mg/dL Normal 8.6 - 10.6 [facility] Comment on above: Performed By: #### R ENAL ####[id number] [place] [address] Chloride [Moles/Vol] 98 mmol/L Normal 98 - 107 [facility] Comment on above: Performed By: #### R ENAL ####[id number] [place] [address] Creatinine [Mass/Vol] 0.71 mg/dL Normal 0.50 - 1.30 [facility] Comment on above: Performed By: #### R ENAL ####[id number] [place] [address] GFR- AM. >60 Normal >60 [facility] Comment on above: Result Comment: CALC ULATIONS OF ESTIMATED GFR ARE PERFORMED USING THE MDRD STUDY EQUATION FOR THE IDMS-TRACEABLE CREATININE METHODS. CLIN CHEM 2007;53:766-72 Performed By: #### R ENAL ####[id number] [place] [address] GFR-NON AM. >60 Normal >60 [facility] Comment on above: Performed By: #### R ENAL ####[id number] [place] [address] Glucose [Mass/Vol] 74 mg/dL Normal 74 - 99 [facility] Comment on above: Performed By: #### R ENAL ####[id number] [place] [address] HCO3 (Bld) [Moles/Vol] 28 mmol/L Normal 21 - 32 [facility] Comment on above: Performed By: #### R ENAL ####[id number] [place] [address] Phosphate [Mass/Vol] 3.9 mg/dL Normal 2.5 - 4.9 [facility] Comment on above: Result Comment: The performance characteristics of phosphorus testing in heparinized plasma have been validated by the individual laboratory site where testing is performed. Testing on heparinized plasma is not approved by the FDA; however, such approval is not necessary. Performed By: #### R ENAL ####[id number] [place] [address] Potassium [Moles/Vol] 4.3 mmol/L Normal 3.5 - 5.3 [facility] Comment on above: Performed By: #### R ENAL ####[id number] [place] [address] Sodium [Moles/Vol] 136 mmol/L Normal 136 - 145 [facility] Comment on above: Performed By: #### R ENAL ####[id number] [place] [address] Urea nitrogen [Mass/Vol] 9 mg/dL Normal 6 - 23 [facility] Comment on above: Performed By: #### R ENAL ####[id number] [place] [address] TRIGLYCERIDESon 04-13-2018 Triglyceride [Mass/Vol] 61 mg/dL Normal 0 - 149 [facility] Comment on above: Result Comment: . AGE DESIRABLE BORDERLINE HIGH HIGH VERY HIGH 0 D-90 D 19 - 174 ---- ---- ---- 91 D- 9 Y 0 - 74 75 - 99 >/= 100 ---- 10-19 Y 0 - 89 90 - 129 >/= 130 ---- 20-24 Y 0 - 114 115 - 149 >/= 150 ---- >24 Y 0 - 149 150 - 199 200- 499 >/= 500 . Venipuncture immediately after or during the administration of Metamizole may lead to falsely low results. Testing should be performed immediately prior to Metamizole dosing. Performed By: #### T RIG ####[id number] [place] [address] Established Visit (Gastroent erology)on 04-05-2018 Established Visit (Gastroenterology ) Chief ComplaintFollow up History of Present [place]75 yo man following up in the office after an episode of acute diverticulitis complicated by perforation in August of 2017. Patient was initially treated with antibiotics only (Cipro, Flagyl), but then developed a partial bowel obstruction and was managed surgically. Prolonged course of recovery afterwards with TPN dependence, very slow healing abdominal incision wound, as well as large incisional hernia. Patient has been told that he should have a colonoscopy at some point. He is here to discuss that. He is also meeting with surgery team later this afternoon to discuss need for additional surgery and possibly abdominal wall repair. Patient says that his appetite is good. He has lost 50 lbs in total since August of 2017. He does have urgency with bowel movement but no rectal bleeding. Patient still continues to drink alcohol and smoke. Upper Gastrointestinal: abdominal pain, early satiety, but no eructation, no difficulty swallowing, no heartburn, no jaundiced, no nausea, no pain while swallowing, no regurgitation, no vomiting. Lower Gastrointestinal: diarrhea, fecal urgency, but no abdominal swelling, no bloating, no constipation, no fecal incontinence, no steatorrhea. Gastrointestinal Bleeding: no bright red blood per rectum, no hematemesis, no maroon stools, no melena/black stool, not vomiting 'coffee grounds' material. Perirectal Disease no anal itching, did not have an anal fistula, no anal pain, no anal sore, had no rectal fistula, no rectal itching, no rectal pain, no rectal sore. Symptom History: Modifying Factors: Associated Symptoms: Review of SystemsConstitutional: fever, chills and feeling tired, but no recent weight loss. ENT: no lymphadenopathy. Cardiovascular: no shortness of breath and no chest pain. Respiratory: no cough. Gastrointestinal: as noted in HPI. Musculoskeletal: joint swelling, joint stiffness, limb pain and limb swelling. Integumentary: no rashes, no skin lesions and was no jaundiced. Neurological: difficulty walking. Active Problems Abnormal weight loss (783.21) (R63.4) History of diverticulitis of colon (V12.79) (Z87.19) Past Medical History History of Clostridium difficile colitis (V12.79) (Z86.19) History of diverticulosis (V12.79) (Z87.19) History of gout (V12.29) (Z87.39) History of hypertension (V12.59) (Z86.79) History of sleep apnea (V13.89) (Z86.69) History of Perforated sigmoid colon (569.83) (K63.1) Surgical History History of Appendectomy History of Exploratory Laparoscopy Family History No pertinent family history Family history of cardiac disorder (V17.49) (Z82.49) Social History Former consumption of alcohol (V11.3) (Z87.898) Former smoker (V15.82) (Z87.891) Allergies No Known Drug AllergiesRecorded By: Hali Palomo; 10/04/2017 3:10:01 PM Current Meds Allopurinol 300 MG Oral Tablet;Therapy: [id number] to RecordedDispense: 0 Days ; #: Sufficient Tablet; Refill: 0; KRISTEN = N; Record; Last Updated By: Hali Palomo; 10/04/2017 3:19:33 PM Bystolic 20 MG Oral Tablet;Therapy: 97Vpq4902 to RecordedDispense: 0 Days ; #: Sufficient Tablet; Refill: 0; KRISTEN = N; Record; Last Updated By: Hali Palomo; 10/04/2017 3:19:33 PM CloNIDine HCl - 0.1 MG Oral Tablet;Therapy: 81Bcr1201 to RecordedDispense: 0 Days ; #: Sufficient Tablet; Refill: 0; KRISTEN = N; Record; Last Updated By: Hali Palomo; 10/04/2017 3:19:33 PM Colcrys 0.6 MG Oral Tablet;Therapy: 34Ucb7195 to RecordedDispense: 0 Days ; #: Sufficient Tablet; Refill: 0; KRISTEN = N; Record; Last Updated By: Hali Palomo; 10/04/2017 3:19:33 PM Daily Manav Multivitamin/Iron Oral Tablet; TAKE 1 TABLET BY MOUTH 3 TIMES A DAY;Therapy: 30Aug2017 to RecordedRx By: JUAN DANIEL; Dispense: 30 Days ; #:90; Refill: 0; KRISTEN = N; Record; Last Updated By: Sandi Barry; 04/04/2018 12:37:17 PM Diclofenac Sodium 75 MG Oral Tablet Delayed Release;Therapy: 88Jra4375 to RecordedDispense: 90 Days ; #:180; Refill: 0; KRISTEN = N; Record; Last Updated By: Sandi Barry; 04/04/2018 12:37:18 PM Ferrous Sulfate 325 (65 Fe) MG Oral Tablet; TAKE 1 TABLET BY MOUTH TWICE A DAY;Therapy: 01Clj8855 to RecordedRx By: JUAN CARLOS; Dispense: 90 Days ; #:180; Refill: 0; KRISTEN = N; Record; Last Updated By: Jhonny Sandi Peggy; 04/04/2018 12:37:18 PM Furosemide 20 MG Oral Tablet;Therapy: 47Iqx1189 to RecordedDispense: 90 Days ; #:90; Refill: 0; KRISTEN = N; Record; Last Updated By: Rj Barrytha Peggy; 04/04/2018 12:37:18 PM Vitals Vital Signs Recorded: 04Apr2018 12:15RQWvswvqzwoes74.9 FHeart Egwr12Suyvedrz232Gmgeozfpt55P eight6 ft Rncmdl665 lb BMI Ejsgvdtzdi44.75BSA Calculated2.18 Physical ExamConstitutional General appearance: In no acute distress . Eyes Conjunctiva and lids: No swelling, erythema or discharge. Anicteric Sclerae . Pulmonary Respiratory effort: No increased work of breathing or signs of respiratory distress. Auscultation of lungs: Clear. Cardiovascular Auscultation of heart: RRR without murmur. Examination of extremities for edema: Normal. Abdomen Soft, non-tender. ventral hernia, close to incision, scant drainage of fluid from abdominal wound. Bowel sounds normal. No hepatomegaly or splenomegaly. no ascites. Rectal Consent form not signed. Results/DataReviewed images of 11/26/2017 CT scan of abdomen and pelvis with contrast Diagnoses/Problems Abnormal weight loss (783.21) (R63.4) Diverticulitis of colon (562.11) (K57.32) History of diverticulitis of colon (V12.79) (Z87.19) OrdersAbnormal weight loss Endoscopy - Upper GI; Status:Hold For - Scheduling; Requested for:04Apr2018; Perform:[facility]; Order Comments:needs anesthesia; Due:03Jul2018;Ordered; For:Abnormal weight loss; Ordered By:Nancy Kat;GI Mental Competence : Yes-pt mentally competent to provide consentEGD/Sigmoid Indications : Abdominal PainDiverticulitis of colon Colonoscopy; Status:Hold For - Scheduling; Requested for:04Apr2018; Perform:[facility]; Due:03Jul2018;Ordered; For:Diverticulitis of colon; Ordered By:Nancy Kat;GI Mental Competence : Yes-pt mentally competent to provide consentAdditional Information/Preferred Provider : no prior colonsocopyIndications : Abdominal PainHistory of diverticulitis of colon CT Abdomen and Pelvis with Contrast; Status:Hold For - Scheduling; Requestedfor:04Apr2018; Perform:[facility]; Due:03Jul2018;Ordered; For:History of diverticulitis of colon; Ordered By:Nancy Kat;Patient taking Metformin or Derivatives? : NoRadiologist to Determine Optimal Study : YWhat are the patient's signs and symptoms? : abd pain Provider ImpressionsPatient is in need of EGD as well as colonoscopy. Patient is close to recovering from surgery --> colonoscopy will be challenging given hernias. I will finalize timing with Dr. Colmenares. Repeat CT scan of abdomen and pelvis was recommended to see whether fluid collection seen on last CT is now resolved. Patient should limit NSAIDs including indomethacin. Patient should start a daily fiber supplement (some data suggest prevention of future flares of diverticulitis and would help with bowel urgency/form). Follow up in this clinic after procedures. Exams were requested with anesthesia assistance. 04/05/2018 - I discussed the case with Dr. Colmenares. Dr. Colmenares does think that this patient would benefit from revision of ileocolic anastomosis, resection of fistula, repair of abdominal wall. Colonoscopy is needed prior to surgery. Repeat CT scan of abdomen is not needed. Dr. Colmenares will give us a Tuesday OR date. I can do a colonoscopy on a Tuesday prior to this. That way the patient can do bowel only once and he can stay on clears until he is admitted for his surgery. I called patient and updated him of this plan of care.1 1 Amended By: Nancy Kat; Apr 05 2018 3:14 PM ESTPatient Discussion/SummaryStart a fiber supplement on daily basis. Complete CT scan of abdomen. I recommend EGD and colonoscopy. Timing will be discussed with Dr. Colmenares. ScreeningAdvance directives: living will and durable power of workers compensation attorney for health care directives. Pain Screening: the patient is not experiencing pain. Abuse Screening: The patient is safe in the home. Depression Screening: He denies feeling down, depressed or hopeless over the past two weeks. He denies feeling little interest or pleasure in doing things over the past two weeks. Fall Risk Assessment: 1. Is the patient age 65 or older? Yes. Risk Score 1 2. Does the patient have decreased mobility or use an assistance device? No. Risk Score 0 3. Does the patient have multiple diagnoses (>4) or 1 of the following: DM, HTN, Hypotension, CAD, Dementia, Depression? Yes. Risk Score 1 4. Is the patient on multiple Medications? Yes. Risk Score 1 5. Is the patient confused, disoriented or delirious? No. Risk Score 0 6. Does the patient have incontinence or diarrhea? No. Risk Score 0 7. Within the past month, has the patient had any invasive procedures? No. Risk Score 0 Low fall risk (LR) total score (1-3): 3. SignaturesElectronically signed by : Nancy Kat MD; Apr 04 2018 1:40PM EST (Author) Normal [facility] Initial Visit (Colon and Rec benny Surgery)on 04-04-2018 Initial Visit (Colon and Rectal Surgery) Chief ComplaintNPV, complicated diverticulitis History of Present IllnessReferred by: Theo Patel 67 yo male with history of complicated left sided diverticulitis with perforation for which he was admitted to OSH and treated with ABX. In July 2017 he underwent an appendectomy and ileocolic resection at OSH for diagnosis of perforated appendicitis. 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 He is off TPN for 3 weeks now. His output has decreased a lot and just has some purulent drainage occasionally. He presents to clinic today for second opinion. He needs an orthopedic hip surgery and ortho will not do the surgery unless is enterocutaneous fistula is corrected. Has never had a colonoscopy *Active Problems History of diverticulitis of colon (V12.79) (Z87.19) Abnormal weight loss (783.21) (R63.4) Past Medical History History of Clostridium difficile colitis (V12.79) (Z86.19) History of diverticulosis (V12.79) (Z87.19) History of gout (V12.29) (Z87.39) History of hypertension (V12.59) (Z86.79) History of sleep apnea (V13.89) (Z86.69) History of Perforated sigmoid colon (569.83) (K63.1) Surgical History History of Appendectomy History of Exploratory Laparoscopy Family History No pertinent family history Family history of cardiac disorder (V17.49) (Z82.49) Social History Alcohol use (V49.89) (Z78.9) Current every day smoker (305.1) (F17.200) Allergies No Known Drug Allergies Recorded By: Hali Palomo; 10/04/2017 3:10:01 PM Current Meds Allopurinol 300 MG Oral Tablet;Therapy: 65Cql6542 to Recorded Dispense: 0 Days ; #: Sufficient Tablet; Refill: 0; KRISTEN = N; Record; Last Updated By: Hali Palomo; 10/04/2017 3:19:33 PM Bystolic 20 MG Oral Tablet;Therapy: 31Fdb6113 to Recorded Dispense: 0 Days ; #: Sufficient Tablet; Refill: 0; KRISTEN = N; Record; Last Updated By: Hali Palomo; 10/04/2017 3:19:33 PM CloNIDine HCl - 0.1 MG Oral Tablet;Therapy: 66Yxl1481 to Recorded Dispense: 0 Days ; #: Sufficient Tablet; Refill: 0; KRISTEN = N; Record; Last Updated By: Hali Palomo; 10/04/2017 3:19:33 PM Colcrys 0.6 MG Oral Tablet;Therapy: 15Bvq6594 to Recorded Dispense: 0 Days ; #: Sufficient Tablet; Refill: 0; KRISTEN = N; Record; Last Updated By: Hali Palomo; 10/04/2017 3:19:33 PM Indomethacin 50 MG Oral Capsule;Therapy: 15Kpn9812 to Recorded Dispense: 0 Days ; #: Sufficient Capsule; Refill: 0; KRISTEN = N; Record; Last Updated By: Hali Palomo; 04/04/2018 12:37:17 PM Lisinopril 20 MG Oral Tablet;Therapy: 26Zax1412 to Recorded Dispense: 0 Days ; #: Sufficient Tablet; Refill: 0; KRISTEN = N; Record; Last Updated By: Hali Palomo; 04/04/2018 12:37:17 PM Norvasc 10 MG Oral Tablet;Therapy: 28Lsh6913 to Recorded Dispense: 0 Days ; #: Sufficient Tablet; Refill: 0; KRISTEN = N; Record; Last Updated By: Hali Palomo; 04/04/2018 12:37:17 PM Potassium Chloride 10 MEQ/50ML Intravenous Solution;Therapy: 42Mgr2068 to Recorded Dispense: 0 Days ; #: Sufficient ML; Refill: 0; KRISTEN = N; Record; Last Updated By: Hali Palomo; 04/04/2018 12:37:17 PM Protonix 40 MG Oral Packet;Therapy: 10Ogv4748 to Recorded Dispense: 0 Days ; #: Sufficient Packet; Refill: 0; KRISTEN = N; Record; Last Updated By: Hali Palomo; 04/04/2018 12:37:17 PM Sodium Chloride 1 GM Oral Tablet;Therapy: 09Sia2821 to Recorded Dispense: 0 Days ; #: Sufficient Tablet; Refill: 0; KRISTEN = N; Record; Last Updated By: Hali Palomo; 04/04/2018 12:37:17 PM TPN Electrolytes Intravenous Solution;Therapy: 60Ofv2630 to Recorded Dispense: 0 Days ; #: Sufficient ML; Refill: 0; KRISTEN = N; Record; Last Updated By: Hali Palomo; 04/04/2018 12:37:17 PM Venlafaxine HCl - 75 MG Oral Tablet;Therapy: 47Grf2975 to Recorded Dispense: 0 Days ; #: Sufficient Tablet; Refill: 0; KRISTEN = N; Record; Last Updated By: Hali Palomo; 04/04/2018 12:37:17 PM Vitals Vital Signs Recorded: 04Apr2018 02:70PAHfspesaebdn18.1 FHeart Xcpd96Scuhkbne114Txkibktcq69V eight6 ft Dwvkzm293 lb BMI Fbplfxflur03.57BSA Calculated2.21 Physical Exam Constitutional: General appearance: In no acute distress, well appearing and well nourished. Eyes: Conjunctiva and lids: No erythema, swelling or discharge. Neck: Neck Examination: Appearance of the neck was normal. No neck masses observed. Pulmonary: Respiratory effort: Normal respiration. Cardiovascular: regular rate. Abdomen and Pelvis: Abdomen: Non-tender, no abdominal masses. has some purulent drainage from midline wound, and moderated size ventral hernia. Lymphatic: No lymphadenopathy. Skin: Examination for Lesions, Ulcers and Bruising: normal. Neurologic: Cranial Nerve Exam: Non-focal. Grossly intact. Psychiatric: Orientation to person, place, and time: Normal. 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 In July 2017 he underwent an appendectomy and ileocolic resection at OSH for diagnosis of perforated appendicitis. 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 Kat (GI) before surgery, will try to coordinateTruong Librado Blakeolorectal fellowSeen and examined. Agree with above.Dr. Colmenares. [facility] ([facility]gy)on 10-05-2017 Initial Visit (Gastroenterology ) [facility] History of Present Wecbxor59 yo man from [facility] comes in for a second opinion visit. He tells me that he developed severe abdominal pain around 2017. After several days of pain he went to [facility] and was told that he has perforated diverticulitis. He was transferred to [facility] and there told that surgery was not indicated and that he should respond to treatment with IV antibiotics. Patient was discharged home, readmitted shortly after for management of volume overload. Within next 1-2 weeks, he returned to [facility] with severe right sided pain. The concern was that he has appendicitis. He had surgery and resection of inflammatory mass from right colon. The area of diverticulitis was not resected at that time per the patient. Postoperatively patient had leakage of pus from his surgical wound. Patient was told that this has to heal first, then he will need EGD as well as colonoscopy followed by sigmoid resection. Patient feels better compared to June but is very concerned about his weight loss and slow healing process. He has never had a prior colonoscopy or EGD as he was not interested in screening. He has a history of heavy alcohol abuse as well as history of withdrawal. He is not smoking or drinking alcohol at this time. He eats a regular diet but also gets TPN for nutrition support. This has been arranged by his surgeon. His post-operative course was complicated by C diff infection. Last CT scan was done 1.[address] Rangel, patient's PCP, has a copy of hospitalization records. Patient's family is very concerned about weight loss or approximately 50 - 60 lbs. Upper Gastrointestinal: no abdominal pain, no eructation, no difficulty swallowing, no early satiety, no heartburn, no jaundiced, no nausea, no pain while swallowing, no regurgitation, no vomiting. Lower Gastrointestinal: no abdominal swelling, no bloating, no constipation, no diarrhea, no fecal incontinence, no bowel urgency, no steatorrhea. Gastrointestinal Bleeding: no bright red blood per rectum, no hematemesis, no maroon stools, no melena/black stool, not vomiting 'coffee grounds' material. Perirectal Disease no anal itching, did not have an anal fistula, no anal pain, no anal sore, had no rectal fistula, no rectal itching, no rectal pain, no rectal sore. Symptom History: Modifying Factors: Associated Symptoms: There are no spiritual/cultural practices/values/needs that are important to know Initial Fall Risk Screening: ADEN has not fallen in the last 6 months. Advance directives: Living Will: Living will on file. Healthcare POA: Health care proxy on file. Declaration of Mental Health Treatment: No mental health treatment on file. Domestic Violence Screen: Does not feel threatened or abused physically, emotionally or sexually. Do you feel UNSAFE? The patient feels safe in the home. Depression/Suicide Screening: During the past 2 weeks, the patient has not felt down, depressed or hopeless. During the past 2 weeks, the patient has not felt little interest or pleasure in doing things. He has no thoughts of harming self. He has not had thoughts of harming others. Single alcohol screening question: Patient Declined/Screening not indicated. Procedure or Sedation Areas: patient has not had alcohol, recreational drugs, or prescription drugs for non-medical reasons this morning. Patient Education: The patient denies that they or the person with them has problems with hearing, speaking, seeing, moving around or learning Review of SystemsConstitutional: no fever, no chills, not feeling tired and no recent weight loss. Eyes: no yellow sclera/jaundice. ENT: no lymphadenopathy. Cardiovascular: shortness of breath during exertion and lower extremity edema, but no shortness of breath and no chest pain. Respiratory: wheezing and cough. Gastrointestinal: as noted in HPI. Musculoskeletal: joint stiffness. Integumentary: skin lesion, itching and dry skin, but no rashes and was no jaundice. Neurological: difficulty walking, but no headache. Psychiatric: anxiety, but no depression. Hematologic/Lymphatic: no tendency for easy bleeding and no tendency for easy bruising. Past Medical History History of Clostridium difficile colitis (V12.79) (Z86.19) History of diverticulosis (V12.79) (Z87.19) History of gout (V12.29) (Z87.39) History of hypertension (V12.59) (Z86.79) History of sleep apnea (V13.89) (Z86.69) History of Perforated sigmoid colon (569.83) (K63.1) Surgical History History of Appendectomy History of Exploratory Laparoscopy Family History No pertinent family history Family history of cardiac disorder (V17.49) (Z82.49) Social History Former consumption of alcohol (V11.3) (Z87.898) Former smoker (V15.82) (Z87.891) Allergies No Known Drug Allergies Recorded By: Hali Palomo; 10/04/2017 3:10:01 PM Current Meds Allopurinol 300 MG Oral Tablet;Therapy: 20Fun8875 to Recorded Dispense: 0 Days ; #: Sufficient Tablet; Refill: 0; KRISTEN = N; Record; Last Updated By: Hali Palomo; 10/04/2017 3:19:33 PM Bystolic 20 MG Oral Tablet;Therapy: 00Wjn4099 to Recorded Dispense: 0 Days ; #: Sufficient Tablet; Refill: 0; KRISTEN = N; Record; Last Updated By: Hali Palomo; 10/04/2017 3:19:33 PM CloNIDine HCl - 0.1 MG Oral Tablet;Therapy: 78Lsp8152 to Recorded Dispense: 0 Days ; #: Sufficient Tablet; Refill: 0; KRISTEN = N; Record; Last Updated By: Hali Palomo; 10/04/2017 3:19:33 PM Colcrys 0.6 MG Oral Tablet;Therapy: 70Xgf1574 to Recorded Dispense: 0 Days ; #: Sufficient Tablet; Refill: 0; KRISTEN = N; Record; Last Updated By: Hali Palomo; 10/04/2017 3:19:33 PM Indomethacin 50 MG Oral Capsule;Therapy: 99Wrf9338 to Recorded Dispense: 0 Days ; #: Sufficient Capsule; Refill: 0; KRISTEN = N; Record; Last Updated By: Hali Palomo; 10/04/2017 3:19:33 PM Lisinopril 20 MG Oral Tablet;Therapy: 47Pmp9137 to Recorded Dispense: 0 Days ; #: Sufficient Tablet; Refill: 0; KRISTEN = N; Record; Last Updated By: Hali Palomo; 10/04/2017 3:19:33 PM Norvasc 10 MG Oral Tablet;Therapy: 68Tuz4080 to Recorded Dispense: 0 Days ; #: Sufficient Tablet; Refill: 0; KRISTEN = N; Record; Last Updated By: Hali Palomo; 10/04/2017 3:19:33 PM Potassium Chloride 10 MEQ/50ML Intravenous Solution;Therapy: 43Pzl1691 to Recorded Dispense: 0 Days ; #: Sufficient ML; Refill: 0; KRISTEN = N; Record; Last Updated By: Hali Palomo; 10/04/2017 3:19:33 PM Protonix 40 MG Oral Packet;Therapy: 05Mhg3304 to Recorded Dispense: 0 Days ; #: Sufficient Packet; Refill: 0; KRISTEN = N; Record; Last Updated By: Hali Palomo; 10/04/2017 3:19:33 PM Sodium Chloride 1 GM Oral Tablet;Therapy: 00Shz7470 to Recorded Dispense: 0 Days ; #: Sufficient Tablet; Refill: 0; KRISTEN = N; Record; Last Updated By: Hali Palomo; 10/04/2017 3:19:33 PM TPN Electrolytes Intravenous Solution;Therapy: 13Fkd6329 to Recorded Dispense: 0 Days ; #: Sufficient ML; Refill: 0; KRISTEN = N; Record; Last Updated By: Hali Palomo; 10/04/2017 3:27:17 PM Venlafaxine HCl - 75 MG Oral Tablet;Therapy: 29Ixl3143 to Recorded Dispense: 0 Days ; #: Sufficient Tablet; Refill: 0; KRISTEN = N; Record; Last Updated By: Hali Palomo; 10/04/2017 3:19:33 PM Vitals Vital Signs Recorded: 24Crw6986 03:31XNNlhhqifvhgu27.6 FHeart Izww48Iqixoudlkth76Peygqrom43 8Ubsueizzg15Fqitee8 ft Qwwdre985 lb BMI Eucsagfoes77.89BSA Calculated2.19 Physical ExamConstitutional General appearance: In no acute distress. chronically ill appearing. Eyes Conjunctiva and lids: No swelling, erythema or discharge. Anicteric Sclerae. Ears, Nose, Mouth, and Throat Lips, teeth, and gums: Abnormal. poor dentition. Oropharynx without lesions. Neck Supple, no lymphadenopathy. Pulmonary Auscultation of lungs Clear. Cardiovascular Auscultation of heart: RRR withut murmur. Examination of extremities for edema: Normal. Abdomen Abdomen: Abnormal. 2 inch incision, draining pus inferiorly, no erythema, open - healing by secondary intention. Bowel sounds normal. No hepatomegaly or splenomegaly. Lymphatic Palpation of lymph nodes in neck: No lymphadenopathy. Musculoskeletal Gait and station: Normal. Digits and nails: Normal without clubbing or cyanosis. Inspection/palpation of joints, bones, and muscles: Normal. Skin Skin: No specific lesions, no spider angiomata or palmar erythema. right upper extremity PICC line, CDI. Psychiatric patient alert . judgement was appropriate. insight appropriate. Rectal Consent form not signed. Results/Dataawaiting records Diagnoses/Problems History of diverticulosis (V12.79) (Z87.19) History of diverticulitis of colon (V12.79) (Z87.19) Abnormal weight loss (783.21) (R63.4) Provider ImpressionsPatient with complicated diverticulitis with perforation, managed medically and surgically. No prior colonoscopy to verify that there is no mass lesion in the colon although prior surgical exploration as well as imaging do not suggest this. I will have to obtain all records and review them carefully. Repeat CT scan is likely needed. Colonoscopy will be needed in next 4-6 weeks. I will have to speak with patient's surgeon regarding timing of EGD and colonoscopy. This note will be addended once additional records are reviewed. Patient Discussion/SummaryI WILL HAVE TO GET REC[facility]DS [facility]. I RECOMMEND EGD AND COLONOSCOPY IN AN ADDITIONAL MONTH. ScreeningAdvance directives: no living will and no durable power of workers compensation attorney for health care directives. Pain Screening: the patient is not experiencing pain. Abuse Screening: The patient is safe in the home. Depression Screening: He denies feeling down, depressed or hopeless over the past two weeks. He denies feeling little interest or pleasure in doing things over the past two weeks. Fall Risk Assessment: 1. Is the patient age 65 or older? Yes. Risk Score 1 2. Does the patient have decreased mobility or use an assistance device? No. Risk Score 0 3. Does the patient have multiple diagnoses (>4) or 1 of the following: DM, HTN, Hypotension, CAD, Dementia, Depression? Yes. Risk Score 1 4. Is the patient on multiple Medications? Yes. Risk Score 1 5. Is the patient confused, disoriented or delirious? No. Risk Score 0 6. Does the patient have incontinence or diarrhea? No. Risk Score 0 7. Within the past month, has the patient had any invasive procedures? No. Risk Score 0 Low fall risk (LR) total score (1-3): 3. End of Encounter MedsAllopurinol 300 MG Oral Tablet;Therapy: 41Xrd7400 to RecordedBystolic 20 MG Oral Tablet;Therapy: 26Utp1065 to RecordedCloNIDine HCl - 0.1 MG Oral Tablet;Therapy: 28Rdj0126 to RecordedColcrys 0.6 MG Oral Tablet (Colchicine);Therapy: 11Ick0779 to RecordedIndomethacin 50 MG Oral Capsule;Therapy: 00Lrq2145 to RecordedLisinopril 20 MG Oral Tablet;Therapy: 89Xvu7590 to RecordedNorvasc 10 MG Oral Tablet (AmLODIPine Besylate);Therapy: 89Hfm1499 to RecordedPotassium Chloride 10 MEQ/50ML Intravenous Solution;Therapy: 33Gko0332 to RecordedProtonix 40 MG Oral Packet;Therapy: 79Bzq6671 to RecordedSodium Chloride 1 GM Oral Tablet;Therapy: 37Bco1960 to RecordedTPN Electrolytes Intravenous Solution;Therapy: 65Ump3150 to RecordedVenlafaxine HCl - 75 MG Oral Tablet;Therapy: 73Tpo6118 to Recorded Signatures Electronically signed by : Nancy Kat MD; Oct 05 2017 6:00PM EST (Author) [facility] 2017 Intraoperative Note [id number] Intraoperative Note [id number]#1.00[facility] Coding Summaryon 01-29-2017 Coding Summary CODING DATE: 017 [facility] STATUS: Home PAYOR: Commercial Insurance APC DESCRIPTION 5113 Level 3 Musculoskeletal Procedures ADMIT DX: REASON FOR VISIT DX: M10.9 Gout, unspecified FINAL DX: PRINCIPAL: M10.9 Gout, unspecified SECONDARY: M70.21 Olecranon bursitis, right elbow PYMT PROC APC STAT DESCRIPTION DOCTOR NAME DATE Incision and drainage, Jamison Will And 10/15/2016 upper arm or elbow area; bursa RT Right side (used to identify procedures performed on the right side of the body) 59 Distinct Procedural Servi 47077 5113 J1 Excision, olecranon Jamison Will And 10/15/2016 bursa RT Right side (used to identify procedures performed on the right side of the body) NOTE: The code number assigned matches the documented diagnosis and / or procedure in the patient's chart. However, the narrative phrase printed from the coding software may appear abbreviated, or result in slightly different terminology. 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 However, the narrative phrase printed from the coding software may appear abbreviated, or result in slightly different terminology. 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 However, the narrative phrase printed from the coding software may appear abbreviated, or result in slightly different terminology. Coded By: Corinne Hdez Date Saved: 12/30/2016 03:14 pm [facility] - Other Lab [facility] - Other Lab Results [id number]#1.00OTGTIFF [facility] Pathology Sendout Teston Pathology Send Out. See Report [facility] Comment on above: Order Comment: SOFT TISSUE RIGHT ELBOW Performed By: #### 2 [id number] ####[facility] (DEFAULT)[address] [id number] [facility] Intraoperative Recordon 12-28-2016 [facility] Intraoperative Record [facility] Intra-Op Record Summary Primary Physician: Jamison Will DO Finalized Date/Time: 12/28/16 12:59:34 Pt. Name: ADEN PATEL /Sex: 1950 MALE Med Rec #: [id number] Physician: Jamison Will DO Financial #: [id number] Pt. Type: D Room/Bed: / Admit/Disch: 12/24/16 10:57:01 - 12/24/16 14:55:00 Institution: Case Times MAG[facility] Entry 1 Patient In Room Time 12/24/16 13:20:00 Out Room Time 12/24/16 13:54:00 Anesthesia Start Time 12/24/16 13:20:00 Stop Time 12/24/16 13:54:00 Surgery Start Time 12/24/16 13:36:00 Stop Time 12/24/16 13:50:00 Last Modified By: Dania Zhu RN 12/24/16 14:03:52 Case Attendance MAGR Entry 1 Entry 2 Entry 3 Case Attendee Jamison Will Satya S MD Sloan, Lauren M CST Andrew DO Role Performed Surgeon - Primary Anesthesiologist of Senior Firmware Engineer Record Time In 12/24/16 13:20:00 12/24/16 13:20:00 12/24/16 13:20:00 Time Out 12/24/16 13:54:00 12/24/16 13:54:00 12/24/16 13:54:00 Procedure Incision and Incision and Incision and Drainage(Right) Drainage(Right) Drainage(Right) Last Modified By: Dania Zhu RN, Lora RN Fresch, Lora RN 12/24/16 14:03:54 12/24/16 14:03:54 12/24/16 14:03:54 Entry 4 Entry 5 Entry 6 Case Attendee Marko Dang Lora RN Long, Barbara RN Regina DOUBLE HEAD MACHINE OPERATOR Role Performed Scrub Personnel Sales Performance Analyst Sales Performance Analyst Time In 12/24/16 13:20:00 12/24/16 13:20:00 12/24/16 13:20:00 Time Out 12/24/16 13:54:00 12/24/16 13:54:00 12/24/16 13:54:00 Procedure Incision and Incision and Incision and Drainage(Right) Drainage(Right) Drainage(Right) Last Modified By: Dania Zhu RN, Lora RN Fresch, Lora RN 12/24/16 14:03:54 12/24/16 14:03:54 12/24/16 14:03:54 Entry 7 Case Attendee Macey Bradley RN Role Performed Sales Performance Analyst Time In 12/24/16 13:20:00 Time Out 12/24/16 13:54:00 Procedure Incision and Drainage(Right) Last Modified By: Dania Zhu RN 12/24/16 14:03:54 Surgical Procedures [facility] Pre-Care Text: A.20 Verifies operative procedure, surgical site, and laterality Im.150 Develops individualized plan of care Entry 1 Procedure Incision and Drainage Primary Procedure Yes Primary Surgeon Jamison Will Right Wilber DO Surgeon Comment RIGHT ELBOW Start 12/24/16 13:36:00 FISTULECTOMY - DELAYED PRIMARY CLOSURE OF WOUND Stop 12/24/16 13:50:00 Anesthesia Type General Surgical Service Orthopedics Wound Class Clean-Contaminated Last Modified By: Macey Bradley RN 12/28/16 12:59:00 Post-Care Text: O.730 The patient's care is consistent with the individualized perioperative plan of care General Case Data [facility] Pre-Care Text: A.350.1 Classifies surgical wound Entry 1 Case Information OR MAGR OR 01 Case Level Level 4 Wound Class Clean-Contaminated Specialty Orthopedics ASA Class 3 Diagnosis Preop Diagnosis DELAYED PRIMARY CLOSURE Postop Same As Preop Yes WOUND RIGHT ELBOW Postop Diagnosis DELAYED PRIMARY CLOSURE WOUND RIGHT ELBOW Last Modified By: Macey Bradley RN 12/28/16 12:59:15 Post-Care Text: O.760 Patient receives consistent and comparable care regardless of the setting Patient Positioning [facility] Pre-Care Text: A.280 Identifies baseline musculoskeletal status Im.40 Positions the patient Im.80 Applies safety devices Entry 1 Procedure Incision and Body Position Supine Drainage(Right) Left Arm Position Extended on padded arm Right Arm Position Extended on padded arm board board Left Leg Position Extended Right Leg Position Extended Feet Uncrossed? Yes Press Points Checked Yes Positioning Device Arm Boards, Arm Strap, Outcome Met (O.80) Yes Pillow, Safety Strap Last Modified By: Dania Zhu RN 12/24/16 12:55:57 Post-Care Text: E.290 Evaluates musculoskeletal status O.80 Patient is free from signs and symptoms of injury related to positioning Skin Prep [facility] Pre-Care Text: A.30 Verifies allergies Im.270 Performs skin preparation Im.270.1 Implements protective measures to prevent skin and tissue injury due to chemical sources Entry 1 Skin Prep Syntegrity Prep Agents (Im.270) Povidone-Iodine Prep By Dania Zhu RN Prep Area (Im.270) Elbow and forearm, Hand Prep Area Details Right Skin Prep Agent Dry Yes Without Pooling Hair Removal Syntegrity Hair Removal Methods No hair removal performed Outcome Met (O.100) Yes Last Modified By: Dania Zhu RN 12/24/16 14:08:04 Post-Care Text: E.10 Evaluates for signs and symptoms of physical injury to skin and tissue O.100 Patient is free from signs and symptoms of chemical injury Counts Verification [facility] Pre-Care Text: A.20 Verifies operative procedure, surgical site, and laterality A.20.2 Assesses the risk for unintended retained foreign body Im.20 Performs required counts Entry 1 Procedure Incision and Drainage(Right) Counts Verification Initial Counts Items included in Sponges, Sharps Initial Counts Manual the Initial Count Method Initial Counts Dania Zhu RN, Initial Count Time 12/24/16 12:55:00 Performed By Maria Ines Dang DOUBLE HEAD MACHINE OPERATOR Counts Verification Final Counts Items Included in Sponges, Sharps Final Count Method Manual Final Count Final Count Status Correct Final Counts Dania Zhu RN, Performed By Maria Ines Dang DOUBLE HEAD MACHINE OPERATOR Final Count Time 12/24/16 13:45:00 Surgeon notified of Yes final counts status Outcome Met (O.20) Yes Last Modified By: Dania Zuh RN 12/24/16 13:48:11 Post-Care Text: E.50 Evaluates results of the surgical count O.20 Patient is free from unintended retained foreign objects Tourniquet MAGR Pre-Care Text: A.240 Assesses baseline skin condition Im.120 Implements protective measures to prevent skin or tissue injury due to mechanical sources Entry 1 Tourniquet Type TOURNQUET/AC OR2 (3603) Cuff Size 60.9 cm Setting 250 mmHg Placement Arm upper Padding (Im.120) Yes Placement Details Right Tourniquet Times Inflated 12/24/16 13:35:00 Deflated 12/24/16 13:50:00 Total Time 15 Applied By Jamison Will Removed By Jamison Will DO Outcome Met (O.60) Yes Last Modified By: Dania Zhu RN 12/24/16 14:02:43 Post-Care Text: E.10 Evaluates for signs and symptoms of physical injury to skin and tissue O.60 Patient is free from sign and symptoms of injury caused by extraneous objects Cautery MAGR Pre-Care Text: A.240 Assesses baseline skin condition A.40 Verifies presence of prosthetics or corrective devices Im.50 Implements protective measures to prevent injury due to electrical sources Entry 1 ESU Type Electrosurgical Unit Identification [id number] Number ESU Settings Syntegrity Cut Setting 30 Coag Setting 30 Bipolar Setting 0 Grounding Pad Details Grounding Pad Yes Verified By Dania Zhu RN Needed? Grounding Pad Site Table Grounding Pad Within Expiration Yes Date? Outcome Met (O.10) Yes Last Modified By: Dania Zhu RN 12/24/16 13:50:47 Post-Care Text: E.10 Evaluates for signs and symptoms of physical injury to skin and tissue O.10 Patient is free from signs and symptoms of injury related to thermal sources Cultures and Specimens MAGR Pre-Care Text: A.350 Assesses susceptibility for infection A.10 Confirms patient identity Im.320 Manages culture specimen collection Im.330 Manages specimen handling and disposition Entry 1 Cultures Ordered n/a Specimens Ordered Yes Outcome Met (O.40) Yes Last Modified By: Dania Zhu RN 12/24/16 14:04:12 Post-Care Text: E.40 Evaluates correct processes have been performed for specimen handling and disposition O.40 Patient's specimen(s) is managed in the appropriate manner General Comments: SOFT TISSUE RIGHT ELBOW Medication Administration MAGR Pre-Care Text: A.210 Identifies physiological status Im.220 Administers prescribed medications Entry 1 Time Administered 12/24/16 13:35:00 Medication .5% MARCAINE Route of Admin SubQ Volume 3 mL By Jamison Will Outcome Met (O.130) Yes Wilber MCDONALD Last Modified By: Dania Zhu RN 12/24/16 14:06:19 Post-Care Text: E.20 Evaluates response to medications O.130 Patient receives appropriately administered medication(s) Dressing/Packing MAGR Pre-Care Text: A.350 Assesses susceptibility for infection Im.290 Administer care to wound sites Entry 1 Skin Prep Agent Yes Site Elbow Removed Prior to Dressing? Site Details Right Dressing Item Details Dressing Item 4x4's, ABD Tape (Im.290) Elastic Sports Bandage (Im.290) Outcome Met Yes Last Modified By: Dania Zhu RN 12/24/16 14:07:41 Post-Care Text: E.200 Evaluates progress of wound healing O.200 Patient's wound perfusion is consistent with or improved from baseline levels Unfinalized History Date/Time Username Reason for Unfinalizing Freetext Reason for Unfinalizing 12/28/16 12:58 [email or web address] Correct Documentation [facility] Consent Formson 12-27-2016 Consent Forms [id number][facility] Instructionson Discharge Instructions [id number]#1.00[facility] Telemetry Stripson 7 Telemetry Strips [id number]#1.00[facility] Anest[facility] Noteon 12-24-2016 Anesthesia Note Patient: Rosa PATEL : 66 years Sex: MALE : [birth year]Associated Diagnoses: NoneAuthor: Feliciano Davies MDPostoperative InformationPost Operative Note: Post Anesthesia Care Unit.Health StatusAllergies:Allergic Reactions (All)No Known Medication AllergiesPhysical ExaminationVS/MeasurementsVit al Signs12/24/16 14:10 EDT Temperature Temporal 36.2 DegC LOW Peripheral Pulse Rate 66 bpm Heart Rate Monitored 66 bpm Respiratory Rate 16 br/min Systolic Blood Pressure 163 mmHg HI Diastolic Blood Pressure 108 mmHg HI Mean Arterial Pressure, Cuff 126 mmHg BP Site Left arm Patient Position BP Sitting SpO2 94 % Oxygen Therapy Room airGeneral: No acute distress.Respiratory: Respirations are non-labored.Review / ManagementCondition: Stable.AssessmentAnesthetic outcomeNo anesthetic complications noted.Adequate pain relief.No Complaint of nausea and vomiting.PlanTransfer/ Discharge: Patient can be discharged from PACU when criteria met.Condition stable.[Electronically Signed on: 12/24/2016 14:40 EDT] Feliciano Davies MD[Verified on: 12/24/2016 14:40 EDT] Feliciano Davies MD [facility] Anesthesia Note Patient: Rosa PATEL : 66 years Sex: MALE : [birth year]Associated Diagnoses: NoneAuthor: Feliciano Davies MDPreoperative InformationAnesthesia history: Patient history: No difficult intubation, No malignant hyperthermia. Family history: No malignant hyperthermia.Review of SystemsRespiratory: Apnea, No shortness of breath.Cardiovascular: No known MA, No chest pain.Gastrointestinal: No heartburn.Health StatusAllergies:Allergic Reactions (All)No Known Medication AllergiesCurrent medications:Home Medications (7) ActiveamLODIPine 10 mg oral tablet 10 mg = 1 tab(s), PO, DailyBystolic 20 mg oral tablet 20 mg = 1 tab(s), PO, DailycloNIDine 0.1 mg oral tablet 0.1 mg = 1 tab(s), PO, HSindomethacin 25 mg oral capsule 50 mg = 2 cap(s), PO, BIDlisinopril 5 mg oral tablet 5 mg = 1 tab(s), PO, DailyUloric 40 mg oral tablet 40 mg = 1 tab(s), PO, Dailyvenlafaxine 75 mg oral tablet 75 mg = 1 tab(s), PO, DailyProblem list (past medical history):All ProblemsSleep apnea / SNOMED CT [id number] / ConfirmedGout / SNOMED CT 122980878 / ConfirmedHypertension / SNOMED CT 7297161441 / ConfirmedSmoker / SNOMED CT 983009655 / ConfirmedResolved: Pulmonary emboli / SNOMED CT [id number] History:No family history items have been selected or recorded.Procedure history:Inguinal hernia ([id number]).Comments:10/16/19 09:36 - Jasmin Narayanan RNright sideIncision AND drainage ([id number]).Comments: 14:20 - Betsy Middleton RNright elbowSocial History Alcohol Assessment Comment: 1-2 mixed drink a day Tobacco Assessment Current Every Day Smoker, Cigarettes, 10 per day. Substance Abuse Assessment Substance use: Never..Physical ExaminationVS/MeasurementsNo qualifying data availableGeneral: Alert and oriented, No acute distress.Airway: Mallampati classification: II (soft palate, fauces, uvula visible). Mouth: Dentures ( Partial plate ).Respiratory: Lungs are clear to auscultation.Cardiovascular: Normal rate, Regular rhythm.Review / ManagementLaboratory ResultsECG interpretation: 10/15/16 = SB, possible old inferior MA.PlanAmerican Society of Anesthesiologists#(ASA) physical status classification: Class III.Anesthetic Preoperative PlanAnesthesia: General.. Anesthetic plan, risks, benefits, and alternatives discussed with the patient and/or family. Patient verbalized understanding. Informed consent was given. Consent was signed by the patient.[Electronically Signed on: 12/24/2016 12:14 EDT] Feliciano Davies MD[Verified on: 12/24/2016 12:14 EDT] Feliciano Davies MD Normal [facility] Inpatient Clinical Summaryon 12-24-2016 Inpatient Clinical Summary [facility] SURGERYClinical Discharge SummaryPERSON INFORMATIONName ADEN PATEL Age 66 Years 54Sex MALE Language Turkmen PCP Joseph RANGEL Status [facility] Service Ambulatory SurgeryMRN [id number] Acct# Arrival 12/24/16 10:57:01Visit Reason SURGERY - RIGHT ELBOW FISTULECTOMY - DELAYED PRIMARY CLOSURE OF WOUND Acuity LOS 007 06:09Address:[address] [address]Swskhin:PROVIDER INFORMATIONVITALS INFORMATIONVital Sign Triage LatestTemp OralTemp Temporal 36.7 DegC 36.2 DegCTemp IntravascularTemp AxillaryTemp Fpjljj90 Sat 98 % 95 %Respiratory Rate 20 br/min 18 br/minPeripheral Pulse Rate 68 bpm 67 bpmApical Heart RateBlood Pressure 148 mmHg / 90 mmHg 151 mmHg / 90 mmHgComment:MEDICAL INFORMATIONAllergy Info:No Known Medication AllergiesPrescriptions Given:Medication List:Continue These Medications:amLODIPine (amLODIPine 10 mg oral tablet) 10 mg Oral every daycloNIDine (cloNIDine 0.1 mg oral tablet) 0.1 mg Oral At bedtimefebuxostat (Uloric 40 mg oral tablet) 40 mg Oral every dayindomethacin (indomethacin 25 mg oral capsule) 50 mg Oral 2 times a day with food or milklisinopril (lisinopril 5 mg oral tablet) 5 mg Oral every daynebivolol (Bystolic 20 mg oral tablet) 20 mg Oral every dayvenlafaxine (venlafaxine 75 mg oral tablet) 75 mg Oral every dayComment:Lab and Radiology ResultsLaboratory or Other Results This Visit (last charted value for your 12/24/2016 visit) No Laboratory or Other Results This VisitDIET & ACTIVITYPatient Activity Level:Patient Diet:RegularPatient Activity Restrictions:DISCHARGE INFORMATIONDischarge Disposition:Discharge Location:DEPART REASON INCOMPLETE INFORMATIONPATIENT EDUCATION INFORMATIONInstructions:Magan buchanan- Post Op Carpal Tunnel [facility])Follow up:With: Address: When:Jamison Will [address] [place], [phone] Business (2) 12/30/2016 8:45 AMWith: Address: When:QUENTIN RANGEL [address] [place] [address] [place] [phone] Business (1)DIAGNOSISGouty bursitisComment:PHYS DOC NOTES Normal [facility] Inpatient Patient Summaryon 12-24-2016 Inpatient Patient Summary [address] [address] patient Discharge InstructionsName: ADEN PATEL DDOB: [birth year] [facility]: [id number] Address: [address] [place] [address] Care Provider:Name: QUENTIN RANGELPhone: Discharge Diagnosis: Gouty bursitisIf you received any narcotics, sedation, or any other medication that causes drowsiness for the next 24 hours, unless otherwise directed:? Do not drive a car.? Do not operate machinery such as power tools, lawn mowers, drills, sewing machines, or stoves? Avoid alcoholic beverages and drugs for allergies, nerves, or sleep? Do not make important personal or business decisions or sign any legal documentsReg[facility] Hospital [facility] would like to thank you for allowing us to assist you with your healthcare needs. The following includes patient education materials and information regarding your injury/illness.ADEN PATEL has been given the following list of follow-up instructions, prescriptions, and patient education materials:Follow-up InstructionsWith: Address: When:Jamison Will [address] [place] [address] Business (2) 12/30/2016 8:45 AMWith: Address: When:QUENTIN RANGEL [address] [facility] [address] [facility] [place] [phone] Business (1)MedicationsDuring the course of your visit, your medication list was updated with the most current information. The details of those changes are reflected below:Medications to Continue That Have Not ChangedOther MedicationsamLODIPine (amLODIPine 10 mg oral tablet) 1 tab(s) Oral every day.cloNIDine (cloNIDine 0.1 mg oral tablet) 1 tab(s) Oral At bedtime.febuxostat (Uloric 40 mg oral tablet) 1 tab(s) Oral every day.indomethacin (indomethacin 25 mg oral capsule) 2 cap Oral 2 times a day. with food or milk.lisinopril (lisinopril 5 mg oral tablet) 1 tab(s) Oral every day.nebivolol (Bystolic 20 mg oral tablet) 1 tab(s) Oral every day.venlafaxine (venlafaxine 75 mg oral tablet) 1 tab(s) Oral every day.It is important to always keep an active list of medications available so that you can share with other providers and manage your medications appropriately. As an additional courtesy, we are also providing you with your final active medications list that you can keep with you.amLODIPine (amLODIPine 10 mg oral tablet) 1 tab(s) Oral every day.cloNIDine (cloNIDine 0.1 mg oral tablet) 1 tab(s) Oral At bedtime.febuxostat (Uloric 40 mg oral tablet) 1 tab(s) Oral every day.indomethacin (indomethacin 25 mg oral capsule) 2 cap Oral 2 times a day. with food or milk.lisinopril (lisinopril 5 mg oral tablet) 1 tab(s) Oral every day.nebivolol (Bystolic 20 mg oral tablet) 1 tab(s) Oral every day.venlafaxine (venlafaxine 75 mg oral tablet) 1 tab(s) Oral every day.Take only the medications listed above. Contact your doctor prior to taking any medications not on this list.Diet & ActivityPatient Activity Level:Patient Diet: RegularPatient Activity Restrictions:Comment:Patient education materials, if any, will display belowDR. REYES POST OPERATIVE Bursa surgerySURGEONS WRITTEN INSTRUTCTIONS:-Wiggle your fingers frequently while awake-DO NOT lift heavy objects or fusion analyst forcefully with your hand-Change your dressing in 1 day and apply an rocael bandage-You may shower in 1 day but do not submerge your hand under water. Put a 4x4 gauze and the rocael bandage back on after you shower-If you have any problems or concerns, please call the office at [phone]-Follow up as scheduled Viruses or BacteriaWhat?s got you sick?Antibiotics only treat bacterial infections. Viral illnesses cannot be treated with antibiotics. When an antibiotic is not prescribed, ask your healthcare professional for tips on how to relieve symptoms and feel better. Usual CauseIllnessVirusesBacteria Antibiotic NeededCold/Runny Nose NOBronchitis/Chest Cold (in otherwise healthy children and adults) NOWhooping Cough YesFlu NOStrep Throat YesSore Throat (except strep) NOFluid in the middle ear (otitis media with effusion) NOUrinary Tract Infection YesAntibiotics Aren?t Always the Answerwww.cdc.gov/getsmart GET SMART Know When Antibiotics Radha.[place]. Department of Health and Human ServicesCenters for Disease Control and Prevention November 2013 [facility] MAGR PACU Recordon 7 MAGR PACU Record MAGR PACU Record Sum serjio Primary Physician: Jamison Will DO Finalized Date/Time: 12/24/16 14:10:26 Pt. Name: ADEN PATEL/Sex: 1950 MALE Med Rec #: [id number] Physician: Jamison Will DO Financial #: [id number] Pt. Type: D Room/Bed: / Admit/Disch: 12/24/16 10:57:01 - Institution: PACU Case Times MAGR Entry 1 In PACU I 12/24/16 13:56:00 Discharge from PACU 12/24/16 14:10:00 I Last Modified By: Hali Lan RN 12/24/16 14:10:23 General Comments: pt arrives to pacu drowsy breathing w/o diff spo2 100% with 02 at 10L per mask, lungs clear, moves all extremities lungs clear right elbow dressing dry/intact with ice pack applied verbally responsive denies pain or discomfort takes po ice chips disch from pacu awake w/o complaints Finalized By: Hali Lan RN Document Signatures Signed By: Hali Lan RN 12/24/16 14:10 [facility] MAGR Postoperative Recordon 12-24-2016 MAGR Postoperative Record MAGR Phase II Record Summary Primary Physician: Jamison Will DO Finalized Date/Time: 12/24/16 15:10:31 Pt. Name: ADEN PATEL/Sex: 1950 MALE Med Rec #: [id number] Physician: Jamison Will DO Financial #: [id number] Pt. Type: D Room/Bed: / Admit/Disch: 12/24/16 10:57:01 - Institution: Phase II Case Times MAGR Pre-Care Text: Patient is free from s/s of injury. Patient remains free from compromised physical state related to surgery or anesthesia. Patient comfort maintained. Patient/family verbalize understanding of discharge instructions. Entry 1 In PACU II 12/24/16 14:10:00 Discharge from PACU 12/24/16 14:55:00 II Last Modified By: Betsy Middleton RN 12/24/16 15:10:30 Post-Care Text: The patient remains free from s/s of injury. Patient's vital signs stable, circulation maintained, return to preop mental and physical status, opsite/dressing intact, minimal or absent nausea and vomiting, tolerates po intake. Patient verbalizes adequate pain control. Patient/family express understanding of discharge instructions. General Comments: Pt arrives per cart accompanied by Bella Lan RN and Cuba bradley RN, report given. Pt awake and alert. Acewrap Dressing to right elbow dry and intact. Gd rad pulse right palp, immed cap refill noted. Pt denies any pain. 1430 Disch instructions reviewed with pt and , verbalized understanding. Copy of instructions given to pt. 1440 Assisted up to BR to vd qs. IV discont, bleeding controlled. Pt assisted with dressing and JOS. 1455 Disch per W/C to private car. Finalized By: Btesy Middleton RN Document Signatures Signed By: Betsy Middleton RN 12/24/16 15:10 [facility] Pre-Op Record Summary Primary Physician: Jamison Will DO Finalized Date/Time: 12/24/16 14:21:32 Pt. Name: ADEN PATEL/Sex: 1950 MALE Med Rec #: [id number] Physician: Jamison Will DO Financial #: [id number] Pt. Type: D Room/Bed: / Admit/Disch: 12/24/16 10:57:01 - Institution: Pre-Op Case Times MAGR Pre-Care Text: Patient will be optimally prepared for surgery. Patient is free from s/s of injury. Provide information to patient/family related to plan of care. Verify patient allergies. Confirm identity and verify consent before the operative or invasive procedure. Entry 1 Patient Arrival Time 12/24/16 11:40:00 Preop Departure 12/24/16 13:20:00 Last Modified By: Betsy Middleton RN 12/24/16 14:20:04 Post-Care Text: Patient is prepared mentally and physically and is ready for surgery. The patient remains free from s/s of injury. Patient/family express understanding of plan of care and participate in decisions affecting his or her perioperrative plan of care. Allergies documented appropriately. Patient identifiers and consent correct. General Comments: Pt arrives per amb. Pt denies any CP, SOb, pacemaker/defib., Hx of S/S of flu. Pt states has sleep apnea but forgot to bring in CPAP. Pt states did not take all of BP meds, states didn't remember which ones to take. Pt is very HUGHES inspite of hearing aids. Finalized By: Betsy Middleton RN Document Signatures Signed By: Betsy Middleton RN 12/24/16 14:21 [facility] Operative Report - Surgeon/P deuce 12-24-2016 Operative Report - Surgeon/Physician Procedure: Incision and drainage of right elbow with debridement of wound and excision of fistulaPre Op Diagnosis: Open wound with draining fistula at right elbow, underlying goutPost Op Dianosis: SameSurgeon: Dr. Taina Will, DOAnesthesia: Gen. with localIndication for Surgery: Nonhealing wound with chronic draining fistulaFindings: Fistula with exuberant membranous scar surrounding the bursal bed and white chalky deposits consistent with goutBlood Loss: ScanSpecimen: Soft tissue right elbowProcedure Summary: The patient was given general anesthesia in addition I infiltrated the area locally with half percent plain Marcaine a total 3 ccAfter sterile prep and drape a timeout was taken. Infiltration occurred after the timeout. The opening was about 4 mm in diameter. An elliptical incision was made excising the fistula opening and then opening up the previous site from the bursectomy. I used a curet and irrigation to debride the bed of the wound I excised some of the thickened soft tissue and the fistula tract. A irrigated thoroughly and then I repaired the skin with attention relaxing suture #2 ProleneI also used a nylon suture as wellI then applied sterile dressings and an Rocael bandage. The tourniquet was deflated and the patient was transported from the operating room to the recovery room in stable conditionComplications: None[Electronically Signed on: 12/24/2016 14:41 EDT] Jamison Will DO[Verified on: 12/24/2016 14:41 EDT] Jamison Will DO [facility] Progress Note - Nurseon - Progress Note - Nurse preop call completed....spoke with patients .....patient to arrive at 1100 and reminded to remain NPO after midnight for 12/24/16 surgery[Electronically Signed on: 12/23/2016 09:24 EDT] Alycia Reddy RN[Verified on: 12/23/2016 09:24 EDT] Alycia Reddy RN [facility] Progress Note - Nurseon 11-27 Progress Note - Nurse Dr. Davies reviews chart for upcoming surgery 12/24/16....no orders received[Electronically Signed on: 12/22/2016 13:13 EDT] Alycia Reddy RN[Verified on: 12/22/2016 13:13 EDT] Alycia Reddy RN [facility] .Auto Diff 1on 12-21-2016 Auto Baso % 0.4 % Normal 0.2-2.0 [facility] Comment on above: Performed By: #### 7 [id number], [id number], [id number] ####[facility] (DEFAULT)[address] [place] [address] Auto [place] % 13 % High 1-12 [facility] Comment on above: Performed By: #### 7 [id number], [id number], [id number] ####[facility] (DEFAULT)[address] [place] [address] Auto Neut % 62 % Normal 44-88 [facility] Comment on above: Performed By: #### 7 [id number], [id number], [id number] ####[facility] (DEFAULT)[address] [place] [address] Baso Abs# 0.0 x10 Normal 0.0-0.2 [facility] Comment on above: Performed By: #### 7 [id number], [id number], [id number] ####[facility] (DEFAULT)[address] [place] [address] Eos Abs# 0.1 x10 Normal 0.0-0.4 [facility] Comment on above: Performed By: #### 7 [id number], [id number], [id number] ####[facility] (DEFAULT)[address] [place] [address] Eosinophils/100 leukocytes 0.7 % Low 0.9-4.0 [facility] Comment on above: Performed By: #### 7 [id number], [id number], [id number] ####[facility] (DEFAULT)[address] [place] [address] Lymphocytes 2.2 x10 Normal 1.3-2.9 [facility] Comment on above: Performed By: #### 7 [id number], [id number], [id number] ####[facility] (DEFAULT)[address] [place] [address] Lymphocytes/100 leukocytes 24 % Normal 14-48 [facility] Comment on above: Performed By: #### 7 [id number], [id number], [id number] ####[facility] (DEFAULT)[address] [place] [address] [place] Abs# 1.2 x10 High 0.0-0.8 [facility] Comment on above: Performed By: #### 7 [id number], [id number], [id number] ####[facility] (DEFAULT)[address] [place] [address] 29231 Neut Abs# 5.7 x10 Normal 1.5-9.2 [facility] Comment on above: Performed By: #### 7 [id number], [id number], [id number] ####[facility] (DEFAULT)[address] [place] [address] BMP Standardon 12-21-2016 eGFR (non-black) mL/min/{1.73_m2} Invalid Interpretation Code [facility] Comment on above: Performed By: #### 7 [id number], [id number], [id number] ####[facility] (DEFAULT)[address] [place] [address] Result Comment: Elevator Adjuster ruy Kidney disease could be indicated at eGFRs of less than 60 ml/min/1.73m2. Kidney Failure is indicated at less than 15 ml/min/1.73m2 Anion gap 13.0 mmol/L Normal 5.0-19.0 [facility] Comment on above: Performed By: #### 7 [id number], [id number], [id number] ####[facility] (DEFAULT)[address] [place] [address] BUN/Creatinine Ratio 18.0 mg/mg High 4.6-16.2 [facility] Comment on above: Performed By: #### 7 [id number], [id number], [id number] ####[facility] (DEFAULT)[address] [place] [address] Calcium 9.3 mg/dL Normal 8.9-10.3 [facility] Comment on above: Performed By: #### 7 [id number], [id number], [id number] ####[facility] (DEFAULT)[address] [place] [address] Chloride 98 mmol/L Low 101-111 [facility] Comment on above: Performed By: #### 7 [id number], [id number], [id number] ####[facility] (DEFAULT)[address] [place] [address] 09393 CO2 30 mmol/L Normal 21-32 [facility] Comment on above: Performed By: #### 7 [id number], [id number], [id number] ####[facility] (DEFAULT)[address] [place] [address] 97698 Creatinine 0.91 mg/dL Normal 0.90-1.30 [facility] Comment on above: Performed By: #### 7 843174, [id number], [id number] ####[facility] (DEFAULT)[address] [place] [address] 36549 Glucose mass conc 84.0 mg/dL Normal 74.0-118.0 [facility] Comment on above: Performed By: #### 7 402186, [id number], [id number] ####[facility] (DEFAULT)[address] [place] [address] 28833 Osmolality 274 mOsm/L Invalid Interpretation Code [facility] Comment on above: Performed By: #### 7 112359, [id number], [id number] ####[facility] (DEFAULT)[address] [place] [address] 86429 Potassium molar conc 3.9 mmol/L Normal 3.6-5.1 [facility] Comment on above: Performed By: #### 7 934798, [id number], [id number] ####[facility] (DEFAULT)[address] [place] [address] 78599 Sodium 137.0 mmol/L Normal 136.0-144.0 [facility] Comment on above: Performed By: #### 7 570331, [id number], [id number] ####[facility] (DEFAULT)[address] [place] [address] 81892 Urea nitrogen 16 mg/dL Normal 8-26 [facility] Comment on above: Performed By: #### 7 424408, [id number], [id number] ####[facility] (DEFAULT)[address] [place] [address] CBC w/ Auto Diffon Erythrocyte distribution width Auto Ratio (RBC) 14.1 % Normal 11.5-15.0 [facility] Comment on above: Performed By: #### 7 021280, [id number], [id number] ####[facility] (DEFAULT)[address] [place] [address] Erythrocytes (RBC) 4.28 x10 Normal 3.70-5.30 [facility] Comment on above: Performed By: #### 7 456104, [id number], [id number] ####[facility] (DEFAULT)[address] [place] [address] Hematocrit (HCT) 40.8 % Normal 34.8-51.9 [facility] Comment on above: Performed By: #### 7 760676, [id number], [id number] ####[facility] (DEFAULT)[address] [place] [address] Hemoglobin mass conc (Bld) 14.2 g/dL Normal 11.8-17.7 [facility] Comment on above: Performed By: #### 7 104263, [id number], [id number] ####[facility] (DEFAULT)[address] [place] [address] Man Diff? Auto Normal [facility] Comment on above: Result Comment: Auto Performed By: #### 7 259691, [id number], [id number] ####[facility] (DEFAULT)[address] [place] [address] MCH 33 pg Normal 24-34 [facility] Comment on above: Performed By: #### 7 360059, [id number], [id number] ####[facility] (DEFAULT)[address] [place] [address] MCHC mass conc (RBC) 35 g/dL Normal 26-37 [facility] Comment on above: Performed By: #### 7 522513, [id number], [id number] ####[facility] (DEFAULT)[address] [place] [address] MCV 95 fL Normal 81-100 [facility] Comment on above: Performed By: #### 7 688143, [id number], [id number] ####[facility] (DEFAULT)[address] [place] [address] Platelet mean volume (PMV) 10.5 fL High 6.3-10.2 [facility] Comment on above: Performed By: #### 7 816672, [id number], [id number] ####[facility] (DEFAULT)[address] [place] [address] Platelets 247 x10 Normal 138-427 [facility] Comment on above: Performed By: #### 7 467598, [id number], [id number] ####[facility] (DEFAULT)[address] [place] [address] WBC (Leukocytes) 9.2 x10 Normal 3.5-10.5 [facility] Comment on above: Performed By: #### 7 055497, [id number], [id number] ####[facility] (DEFAULT)[address] [place] [address] [facility] Preoperative Recordon 0 12-01-2016 [facility] Preoperative Record [facility] Pre-Op Record Summary Primary Physician: Jamison Will DO Finalized Date/Time: 12/01/16 13:14:49 Pt. Name: ADEN PATEL/Sex: 1950 MALE Med Rec #: [id number] Physician: Jamison Will DO Financial #: [id number] Pt. Type: D Room/Bed: / Admit/Disch: 10/15/16 09:16:44 - 10/15/16 13:55:00 Institution: Pre-Op Case Times [facility] Pre-Care Text: Patient will be optimally prepared for surgery. Patient is free from s/s of injury. Provide information to patient/family related to plan of care. Verify patient allergies. Confirm identity and verify consent before the operative or invasive procedure. Entry 1 Patient Arrival Time 10/15/16 09:33:00 Preop Departure 10/15/16 10:50:00 Last Modified By: Alycia Reddy RN 12/01/16 13:14:45 Post-Care Text: Patient is prepared mentally and physically and is ready for surgery. The patient remains free from s/s of injury. Patient/family express understanding of plan of care and participate in decisions affecting his or her perioperrative plan of care. Allergies documented appropriately. Patient identifiers and consent correct. General Comments: Pt arrives to w ambulatory. Pt states left elbow pain #2. Pt denies any cp, sob, cough or flu like symptoms. Pt denies pacemaker/defibillator. he has sleep apnea and wears a cpap. Finalized By: Alycia Rdedy RN Document Signatures Signed By: Alycia Reddy RN 12/01/16 13:14 [facility] Coding Summaryon 10-28-2016 Coding Summary CODING DATE: 017 [facility] STATUS: Home PAYOR: [employer] Insurance ADMIT DX: REASON FOR VISIT DX: M10.9 Gout, unspecified FINAL DX: PRINCIPAL: M10.9 Gout, unspecified SECONDARY: M70.21 Olecranon bursitis, right elbow PROCEDURES DOCTOR NAME DATE Incision and drainage, Jamison Yung And 10/15/2016 arm or elbow area; bursa RT RIGHT SIDE (USED TO IDENTIFY PROCEDURES PERFORMED ON THE RIGHT SIDE OF THE BODY) 59 Distinct Procedural Service 55016 Excision, olecranon bursa Jamison Will And 10/15/2016 RT RIGHT SIDE (USED TO IDENTIFY PROCEDURES PERFORMED ON THE RIGHT SIDE OF THE BODY) NOTE: The code number assigned matches the documented diagnosis and / or procedure in the patient's chart. However, the narrative phrase printed from the coding software may appear abbreviated, or result in slightly different terminology. 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 However, the narrative phrase printed from the coding software may appear abbreviated, or result in slightly different terminology. Coded By: Codi Ventura Date Saved: 10/25/2016 09:48 am Normal [facility] .Auto Diff 1on 10-15-2016 Auto Baso % 0.2 % Normal 0.2-2.0 [facility] Comment on above: Performed By: #### 7 207165, [id number], [id number] ####[facility] (DEFAULT)[address] [place] [address] Auto [place] % 10 % Normal 1-12 [facility] Comment on above: Performed By: #### 7 020332, [id number], [id number] ####[facility] (DEFAULT)[address] [place] [address] 21587 Auto Neut % 77 % Normal 44-88 [facility] Comment on above: Performed By: #### 7 224294, [id number], [id number] ####[facility] (DEFAULT)[address] [place] [address] 12529 Baso Abs# 0.0 x10 Normal 0.0-0.2 [facility] Comment on above: Performed By: #### 7 373727, [id number], [id number] ####[facility] (DEFAULT)[address] [place] [address] 93113 Eos Abs# 0.0 x10 Normal 0.0-0.4 [facility] Comment on above: Performed By: #### 7 407360, [id number], [id number] ####[facility] (DEFAULT)[address] [place] [address] Eosinophils/100 leukocytes 0.3 % Low 0.9-4.0 [facility] Comment on above: Performed By: #### 7 862004, [id number], [id number] ####[facility] (DEFAULT)[address] [place] [address] Lymphocytes 1.7 x10 Normal 1.3-2.9 [facility] Comment on above: Performed By: #### 7 032133, [id number], [id number] ####[facility] (DEFAULT)[address] [place] [address] 52880 Lymphocytes/100 leukocytes 13 % Low 14-48 [facility] Comment on above: Performed By: #### 7 333312, [id number], [id number] ####[facility] (DEFAULT)[address] [place] [address] 96515 [place] Abs# 1.2 x10 High 0.0-0.8 [facility] Comment on above: Performed By: #### 7 660543, [id number], [id number] ####[facility] (DEFAULT)[address] [place] [address] 40457 Neut Abs# 9.8 x10 High 1.5-9.2 [facility] Comment on above: Performed By: #### 7 665265, [id number], [id number] ####[facility] (DEFAULT)[address] [place] [address] Anesthesia Noteon 10-15-2016 Anesthesia Note Patient: Rosa PATEL : 66 years Sex: MALE : [birth year]Associated Diagnoses: NoneAuthor: Ezra Young MDPostoperative InformationPost Operative Note: Operative Day.Anesthetic utilized: Monitored anesthesia care.Health StatusAllergies:Allergic Reactions (All)No Known Medication AllergiesProblem list (past medical history):All ProblemsSleep apnea / SNOMED CT [id number] IL52VWD / ConfirmedGout / SNOMED CT 197251396 / ConfirmedHypertension / SNOMED CT 0526509653 / ConfirmedResolved: Pulmonary emboli / SNOMED CT 1695636919Yrnmkpig ExaminationVS/MeasurementsVit al Signs (last 24 hrs) Last Charted Heart Rate Peripheral 63 bpm (OCT 15 09:34)Resp Rate 18 br/min (OCT 15 13:05)SBP 138 mmHg (OCT 15 13:05)DBP H 92mmHg (OCT 15 13:05)SpO2 93 % (OCT 15 12:55)Weight 113.10 kg (OCT 15 09:34)Height 185.42 cm (OCT 15 09:34)Review / ManagementCondition: Stable.AssessmentAnesthetic outcomeNo anesthetic complications noted.PlanTransfer/ Discharge: Patient can be discharged from PACU when criteria met.Condition good.[Electronically Signed on: 10/15/2016 13:12 EDT] Ezra Young MD[Verified on: 10/15/2016 13:12 EDT] Ezra Young MD [facility] Anesthesia Note Patient: Rosa PATEL : 66 years Sex: MALE : [birth year]Associated Diagnoses: NoneAuthor: Ezra Young MDPreoperative InformationAnesthesia history: Patient history: No difficult intubation, No malignant hyperthermia. Family history: No malignant hyperthermia.Review of SystemsConstitutional: Negative.Respiratory: Negative, No shortness of breath.Cardiovascular: No chest pain.Neurologic: Alert and oriented X4.good exercise tolerance. Denies any cardiopulmonary problems or symptomsHealth StatusAllergies:Allergic Reactions (All)No Known Medication AllergiesCurrent medications:Home Medications (8) ActiveamLODIPine 10 mg oral tablet 10 mg = 1 tab(s), PO, DailyBystolic 20 mg oral tablet 20 mg = 1 tab(s), PO, Dailycephalexin 500 mg oral capsule 500 mg = 1 cap(s), PO, [id number] 0.1 mg oral tablet 0.1 mg = 1 tab(s), PO, HSindomethacin 25 mg oral capsule 50 mg = 2 cap(s), PO, BIDlisinopril 5 mg oral tablet 5 mg = 1 tab(s), PO, DailyUloric 40 mg oral tablet 40 mg = 1 tab(s), PO, Dailyvenlafaxine 75 mg oral tablet 75 mg = 1 tab(s), PO, DailyProblem list (past medical history):All ProblemsSleep apnea / SNOMED CT [id number] [id number] / ConfirmedGout / SNOMED CT 773981838 / ConfirmedHypertension / SNOMED CT 5968059477 / ConfirmedResolved: Pulmonary emboli / SNOMED CT 5806810403DqxtjzqukXpbxrs History:No family history items have been selected or recorded.Procedure history:Inguinal hernia ([id number]).Comments:10/16/19 17 09:36 - Jsamin Narayanan RNright sideSocial History Alcohol Assessment Comment: 1-2 mixed drink a day Tobacco Assessment Current Every Day Smoker, Cigarettes, 10 per day. Substance Abuse Assessment Substance use: Never..Social & Psychosocial HabitsAlcohol Comment: 1-2 mixed drink a day - 10/15/2016 09:43 - Jasmin Narayanan RNSubstance Abuse10/15/2016 Substance use: PiruwHvqymao77/21/2017 Use: Current Every Day Smoker Type: Cigarettes Number used per day: 10.Physical ExaminationVS/MeasurementsVit al Signs (last 24 hrs) Last Charted Heart Rate Peripheral 63 bpm (OCT 15:34)Resp Rate 18 br/min (OCT 15:34)SBP 135 mmHg (OCT 15:34)DBP H 91mmHg (OCT 15:34)SpO2 99 % (OCT 15:34)Weight 113.10 kg (OCT 15:34)Height 185.42 cm (OCT 15:34)Airway: Mallampati classification: II (soft palate, fauces, uvula visible). Temporomandibular joint mobility: Good. Mouth: Adequate opening, Dentures ( Upper and lower dentures, full upper, partial lower ). Neck: Full range of motion.Respiratory: Lungs are clear to auscultation.Cardiovascular: Regular rhythm.Neurologic: Alert, Oriented.Review / ManagementLaboratory ResultsPlanAmerican Society of Anesthesiologists#(ASA) physical status classification: Class II.Anesthetic Preoperative PlanAnesthesia: Monitored anesthesia care. Anesthetic plan, risks, benefits, and alternatives discussed with the patient and/or family. Patient verbalized understanding.[Electronically Signed on: 10/15/2016 12:09 EDT] Ezra Young MD[Verified on: 10/15/2016 12:09 EDT] Ezra Young MD Normal [facility] Standardon 10-15-2016 eGFR (non-black) mL/min/{1.73_m2} Invalid Interpretation Code [facility] Comment on above: Performed By: #### 7 144551, [id number], [id number] ####[facility] (DEFAULT)[address] [place] [address] 41366 Result Comment: Elevator Adjuster ruy Kidney disease could be indicated at eGFRs of less than 60 ml/min/1.73m2. Kidney Failure is indicated at less than 15 ml/min/1.73m2 Anion gap 12.0 mmol/L Normal 5.0-19.0 [facility] Comment on above: Performed By: #### 7 466032, [id number], [id number] ####[facility] (DEFAULT)[address] [place] [address] BUN/Creatinine Ratio 24.0 mg/mg High 4.6-16.2 [facility] Comment on above: Performed By: #### 7 987676, [id number], [id number] ####[facility] (DEFAULT)[address] [place] [address] Calcium 8.5 mg/dL Low 8.9-10.3 [facility] Comment on above: Performed By: #### 7 965274, 88181572, [id number] ####[facility] (DEFAULT)[address] [place] [address] Chloride 100 mmol/L Low 101-111 [facility] Comment on above: Performed By: #### 7 111346, 88507515, [id number] ####[facility] (DEFAULT)[address] [place] [address] 07416 CO2 25 mmol/L Normal 21-32 [facility] Comment on above: Performed By: #### 7 550032, [id number], [id number] ####[facility] (DEFAULT)[address] [place] [address] 25356 Creatinine 0.80 mg/dL Low 0.90-1.30 [facility] Comment on above: Performed By: #### 7 344930, [id number], [id number] ####[facility] (DEFAULT)[address] [place] [address] 78058 Glucose mass conc 150.0 mg/dL High 74.0-118.0 [facility] Comment on above: Performed By: #### 7 886750, [id number], [id number] ####[facility] (DEFAULT)[address] [place] [address] 21161 Osmolality 272 mOsm/L Invalid Interpretation Code [facility] Comment on above: Performed By: #### 7 627062, 93096814, [id number] ####[facility] (DEFAULT)[address] [place] [address] 22472 Potassium molar conc 4.4 mmol/L Normal 3.6-5.1 [facility] Comment on above: Performed By: #### 7 282219, 82380161, [id number] ####[facility] (DEFAULT)[address] [place] [address] 38341 Sodium 133.0 mmol/L Low 136.0-144.0 [facility] Comment on above: Performed By: #### 7 721831, 66385780, [id number] ####[facility] (DEFAULT)[address] [place] [address] 57213 Urea nitrogen 19 mg/dL Normal 8-26 [facility] Comment on above: Performed By: #### 7 453228, [id number], [id number] ####[facility] (DEFAULT)[address] [place] [address] CBC w/ Auto Diffon 7 Erythrocyte distribution width Auto Ratio (RBC) 13.7 % Normal 11.5-15.0 [facility] Comment on above: Performed By: #### 7 166830, 33392346, [id number] ####[facility] (DEFAULT)[address] [place] [address] Erythrocytes (RBC) 4.36 x10 Normal 3.70-5.30 [facility] Comment on above: Performed By: #### 7 451562, 44120946, [id number] ####[facility] (DEFAULT)[address] [place] [address] Hematocrit (HCT) 41.4 % Normal 34.8-51.9 [facility] Comment on above: Performed By: #### 7 020382, 25674795, [id number] ####[facility] (DEFAULT)[address] [place] [address] Hemoglobin mass conc (Bld) 14.5 g/dL Normal 11.8-17.7 [facility] Comment on above: Performed By: #### 7 108302, 43981725, [id number] ####[facility] (DEFAULT)[address] [place] [address] Man Diff? Auto Normal [facility] Comment on above: Performed By: #### 7 210445, 04733918, [id number] ####[facility] (DEFAULT)[address] [place] [address] MCH 33 pg Normal 24-34 [facility] Comment on above: Performed By: #### 7 137741, 47880739, [id number] ####[facility] (DEFAULT)[address] [place] [address] MCHC mass conc (RBC) 35 g/dL Normal 26-37 [facility] Comment on above: Performed By: #### 7 467042, [id number], [id number] ####[facility] (DEFAULT)[address] [place] [address] MCV 95 fL Normal 81-100 [facility] Comment on above: Performed By: #### 7 187959, 87460634, [id number] ####[facility] (DEFAULT)[address] [place] [address] 55156 Platelet mean volume (PMV) 10.2 fL Normal 6.3-10.2 [facility] Comment on above: Performed By: #### 7 678106, 36058303, [id number] ####[facility] (DEFAULT)[address] [place] [address] 60340 Platelets 379 x10 Normal 138-427 [facility] Comment on above: Performed By: #### 7 924098, 84829103, [id number] ####[facility] (DEFAULT)[address] [place] [address] 16455 WBC (Leukocytes) 12.8 x10 High 3.5-10.5 [facility] Comment on above: Performed By: #### 7 154013, [id number], [id number] ####[facility] (DEFAULT)[address] [place] [address] 52351 Inpatient Clinical Summaryon 10-15-2016 Inpatient Clinical Summary [facility] SURGERYClinical Discharge SummaryPERSON INFORMATIONName ADEN PATEL Age 66 Years 52Sex MALE Language Turkmen PCP Joseph RANGEL Status [facility] Acct# Arrival 10/15/16 09:16:44Visit Reason SURGERY - RIGHT ELBOW BURSECTOMY AND I & D Acuity LOS 000 08:19Address:[address] [address]Srcyhhd:PROVIDER INFORMATIONVITALS INFORMATIONVital Sign Triage LatestTemp OralTemp Temporal 36.8 DegC 36.8 DegCTemp IntravascularTemp AxillaryTemp [id number] Sat 99 % 92 %Respiratory Rate 18 br/min 18 br/minPeripheral Pulse Rate 63 bpm 53 bpmApical Heart RateBlood Pressure 135 mmHg / 91 mmHg 137 mmHg / 81 mmHgComment:MEDICAL INFORMATIONAllergy Info:No Known Medication AllergiesPrescriptions Given:Home Meds DisplayamLODIPine (amLODIPine 10 mg oral tablet) 1 tab(s) ( 10 mg ), PO, Daily, # 30 tab(s), 0 Refill(s)cephalexin (cephalexin 500 mg oral capsule) 1 cap(s) ( 500 mg ), PO, q12hr, # 20 cap(s), 0 Refill(s)cloNIDine (cloNIDine 0.1 mg oral tablet) 1 tab(s) ( 0.1 mg ), PO, HS, 0 Refill(s)febuxostat (Uloric 40 mg oral tablet) 1 tab(s) ( 40 mg ), PO, Daily, # 30 tab(s), 0 Refill(s)indomethacin (indomethacin 25 mg oral capsule) 2 cap(s) ( 50 mg ), PO, BID, Instructions: with food or milk, 0 Refill(s)lisinopril (lisinopril 5 mg oral tablet) 1 tab(s) ( 5 mg ), PO, Daily, 0 Refill(s)nebivolol (Bystolic 20 mg oral tablet) 1 tab(s) ( 20 mg ), PO, Daily, 0 Refill(s)venlafaxine (venlafaxine 75 mg oral tablet) 1 tab(s) ( 75 mg ), PO, Daily, 0 Refill(s)Medication List:Continue These Medications:amLODIPine (amLODIPine 10 mg oral tablet) 10 mg Oral every daycephalexin (cephalexin 500 mg oral capsule) 500 mg Oral Every 12 hours scheduled timecloNIDine (cloNIDine 0.1 mg oral tablet) 0.1 mg Oral At bedtimefebuxostat (Uloric 40 mg oral tablet) 40 mg Oral every dayindomethacin (indomethacin 25 mg oral capsule) 50 mg Oral 2 times a day with food or milklisinopril (lisinopril 5 mg oral tablet) 5 mg Oral every daynebivolol (Bystolic 20 mg oral tablet) 20 mg Oral every dayvenlafaxine (venlafaxine 75 mg oral tablet) 75 mg Oral every dayComment:Lab and Radiology ResultsLaboratory or Other Results This Visit (last charted value for your 10/15/2016 visit) Hematology 10/15/2016 9:33 AM Hct: 41.4 % -- Normal range between ( 34.8 and 51.9 ) Hgb: 14.5 gm/dL -- Normal range between ( 11.8 and 17.7 ) MCH: 33 pg -- Normal range between ( 24 and 34 ) MCHC: 35 gm/dL -- Normal range between ( 26 and 37 ) MCV: 95 fL -- Normal range between ( 81 and 100 ) MPV: 10.2 fL -- Normal range between ( 6.3 and 10.2 ) Platelet: 379 x103/mcL -- Normal range between ( 138 and 427 ) RBC: 4.36 x106/mcL -- Normal range between ( 3.70 and 5.30 ) RDW: 13.7 % -- Normal range between ( 11.5 and 15.0 ) WBC: 12.8 x103/mcL -- Normal range between ( 3.5 and 10.5 ) Auto Eos %: 0.3 % -- Normal range between ( 0.9 and 4.0 ) Auto Lymph %: 13 % -- Normal range between ( 14 and 48 ) Auto Neut %: 77 % -- Normal range between ( 44 and 88 ) Eos Abs#: 0.0 x103/mcL -- Normal range between ( 0.0 and 0.4 ) Lymph Abs#: 1.7 x103/mcL -- Normal range between ( 1.3 and 2.9 ) [place] Abs#: 1.2 x103/mcL -- Normal range between ( 0.0 and 0.8 ) Auto Baso %: 0.2 % -- Normal range between ( 0.2 and 2.0 ) Auto [place] %: 10 % -- Normal range between ( 1 and 12 ) Baso Abs#: 0.0 x103/mcL -- Normal range between ( 0.0 and 0.2 ) Neut Abs#: 9.8 x103/mcL -- Normal range between ( 1.5 and 9.2 ) Chemistry 10/15/2016 9:33 AM Creatinine Level: 0.80 mg/dL -- Normal range between ( 0.90 and 1.30 ) BUN: 19 mg/dL -- Normal range between ( 8 and 26 ) Chloride Level: 100 mmol/L -- Normal range between ( 101 and 111 ) CO2: 25 mmol/L -- Normal range between ( 21 and 32 ) Glucose Level: 150.0 mg/dL -- Normal range between ( 74.0 and 118.0 ) Osmolality: 272 mOsm/L Potassium Level: 4.4 mmol/L -- Normal range between ( 3.6 and 5.1 ) Sodium Level: 133.0 mmol/L -- Normal range between ( 136.0 and 144.0 ) Anion Gap: 12.0 mmol/L -- Normal range between ( 5.0 and 19.0 ) Calcium Level: 8.5 mg/dL -- Normal range between ( 8.9 and 10.3 ) BUN/Creat Ratio: 24.0 -- Normal range between ( 4.6 and 16.2 ) eGFR AA: >60 mL/min/1.73m2 eGFR Non AA: >60 mL/min/1.75n6KXGQ & ACTIVITYPatient Activity Level:Patient Diet:RegularPatient Activity Restrictions:DISCHARGE INFORMATIONDischarge Disposition: HomeDischarge Location: HomeDEPART REASON INCOMPLETE INFORMATIONPATIENT EDUCATION INFORMATIONInstructions:Magan raineyon- Post Op Carpal Tunnel [facility]Follow up:With: Address: When:Jamison Will [address] [place] [address], [address] [place] [address] Business (2) 10/19/2016 1:15 PMComments:Keep scheduled appointmentDo not touch drressing other than directions givenDIAGNOSISAbscess of bursa, right elbow; Bursitis of right elbow; GoutComment:PHYS DOC NOTES Normal [facility] Inpatient Patient Summaryon 10-15-2016 Inpatient Patient Summary [place] [id number] patient Discharge InstructionsName: ADEN PATEL DDOB: [birth year] Address: [address] [place] [address] Care Provider:Name: QUENTIN RANGELPhone: Discharge Diagnosis: Abscess of bursa, right elbow; Bursitis of right elbow; GoutIf you received any narcotics, sedation, or any other medication that causes drowsiness for the next 24 hours, unless otherwise directed:? Do not drive a car.? Do not operate machinery such as power tools, lawn mowers, drills, sewing machines, or stoves? Avoid alcoholic beverages and drugs for allergies, nerves, or sleep? Do not make important personal or business decisions or sign any legal documentsRegency Hospital [facility] would like to thank you for allowing us to assist you with your healthcare needs. The following includes patient education materials and information regarding your injury/illness.ADEN PATEL has been given the following list of follow-up instructions, prescriptions, and patient education materials:Follow-up InstructionsWith: Address: When:Jamison Will [address] [place] [address], [address] [place] [address] eCert (2) 10/19/2016 1:15 PMComments:Keep scheduled appointmentDo not touch drressing other than directions givenMedicationsDuring the course of your visit, your medication list was updated with the most current information. The details of those changes are reflected below:Medications That Were Updated - Follow Below InstructionsOther MedicationsUpdated: amLODIPine (amLODIPine 10 mg oral tablet) 1 tab(s) Oral every day.Medications to Continue That Have Not ChangedOther Medicationscephalexin (cephalexin 500 mg oral capsule) 1 cap Oral Every 12 hours scheduled time.cloNIDine (cloNIDine 0.1 mg oral tablet) 1 tab(s) Oral At bedtime.febuxostat (Uloric 40 mg oral tablet) 1 tab(s) Oral every day.indomethacin (indomethacin 25 mg oral capsule) 2 cap Oral 2 times a day. with food or milk.lisinopril (lisinopril 5 mg oral tablet) 1 tab(s) Oral every day.nebivolol (Bystolic 20 mg oral tablet) 1 tab(s) Oral every day.venlafaxine (venlafaxine 75 mg oral tablet) 1 tab(s) Oral every day.It is important to always keep an active list of medications available so that you can share with other providers and manage your medications appropriately. As an additional courtesy, we are also providing you with your final active medications list that you can keep with you.amLODIPine (amLODIPine 10 mg oral tablet) 1 tab(s) Oral every day.cephalexin (cephalexin 500 mg oral capsule) 1 cap Oral Every 12 hours scheduled time.cloNIDine (cloNIDine 0.1 mg oral tablet) 1 tab(s) Oral At bedtime.febuxostat (Uloric 40 mg oral tablet) 1 tab(s) Oral every day.indomethacin (indomethacin 25 mg oral capsule) 2 cap Oral 2 times a day. with food or milk.lisinopril (lisinopril 5 mg oral tablet) 1 tab(s) Oral every day.nebivolol (Bystolic 20 mg oral tablet) 1 tab(s) Oral every day.venlafaxine (venlafaxine 75 mg oral tablet) 1 tab(s) Oral every day.Take only the medications listed above. Contact your doctor prior to taking any medications not on this list.Diet & ActivityPatient Activity Level:Patient Diet: RegularPatient Activity Restrictions:Comment:Patient education materials, if any, will display belowDR. REYES POST OPERATIVE CARPEL TUNNEL INSTRUCTIONSSURGEONS WRITTEN INSTRUTCTIONS:-Keep your hand elevated above your elbow for the first 24 hours after surgery-Wiggle your fingers frequently while awake-DO NOT lift heavy objects-Do not change your dressing-If you have any problems or concerns, please call the office at [phone]-Follow up as scheduled Viruses or BacteriaWhat?s got you sick?Antibiotics only treat bacterial infections. Viral illnesses cannot be treated with antibiotics. When an antibiotic is not prescribed, ask your healthcare professional for tips on how to relieve symptoms and feel better. Usual CauseIllnessVirusesBacteria Antibiotic NeededCold/Runny Nose NOBronchitis/Chest Cold (in otherwise healthy children and adults) NOWhooping Cough YesFlu NOStrep Throat YesSore Throat (except strep) NOFluid in the middle ear (otitis media with effusion) NOUrinary Tract Infection YesAntibiotics Aren?t Always the Answerwww.cdc.gov/getsmart GET SMART Know When Antibiotics [place]ha.[place]. Department of Health and Human ServicesCenters for Disease Control and Prevention November 2013 [facility] MAGR Intraoperative Recordon 10-15-2016 MAGR Intraoperative Record MAGR Intra-Op Record Summary Primary Physician: Jamison Will DO Finalized Date/Time: 10/15/16 13:38:08 Pt. Name: ADEN PATEL/Sex: 1950 MALE Med Rec #: [id number] Physician: Jamison Will DO Financial #: [id number] Pt. Type: D Room/Bed: / Admit/Disch: 10/15/16 09:16:44 - Institution: Case Times MAGR Entry 1 Patient In Room Time 10/15/16 11:52:00 Out Room Time 10/15/16 12:32:00 Anesthesia Start Time 10/15/16 11:50:00 Stop Time 10/15/16 12:36:00 Surgery Start Time 10/15/16 12:12:00 Stop Time 10/15/16 12:27:00 Last Modified By: Karen Dobbs 10/15/16 12:36:45 Case Attendance MAGR Entry 1 Entry 2 Entry 3 Case Attendee Jamison Will Robert M MD Barone, Debra L Andrew DO Role Performed Surgeon - Primary Anesthesiologist of Sales Performance Analyst Record Time In 10/15/16 11:52:00 10/15/16 11:52:00 10/15/16 11:52:00 Time Out 10/15/16 12:32:00 10/15/16 12:32:00 10/15/16 12:32:00 Procedure Incision and Incision and Incision and Drainage(Right) Drainage(Right) Drainage(Right) Last Modified By: Karen Dobbs Debra L Barone, Debra L 10/15/16 12:37:37 10/15/16 12:37:37 10/15/16 12:37:37 Entry 4 Entry 5 Case Attendee Filiberto Dang Leigh-Ann CST Regina DOUBLE HEAD MACHINE OPERATOR Role Performed Scrub Personnel Senior Firmware Engineer Time In 10/15/16 11:52:00 10/15/16 11:52:00 Time Out 10/15/16 12:32:00 10/15/16 12:32:00 Procedure Incision and Incision and Drainage(Right) Drainage(Right) Last Modified By: Karen Dobbs Debra L 10/15/16 12:37:37 10/15/16 12:37:37 General Comments: T [facility] RADIOLOGY STUDENT PARAG/ REP ARTHREX Surgical Procedures MAGR Pre-Care Text: A.20 Verifies operative procedure, surgical site, and laterality Im.150 Develops individualized plan of care Entry 1 Procedure Incision and Drainage Primary Procedure Yes Primary Surgeon Jamison Will DO Surgeon Comment RIGHT ELBOW BURSECTOMY Start 10/15/16 12:12:00 AND I & D Stop 10/15/16 12:27:00 Anesthesia Type MAC Surgical Service General Wound Class Clean-Contaminated Last Modified By: Karen Dobbs 10/15/16 13:30:23 Post-Care Text: O.730 The patient's care is consistent with the individualized perioperative plan of care General Case Data MAGR Pre-Care Text: A.350.1 Classifies surgical wound Entry 1 Case Information OR MAGR OR 02 Case Level Level 3 Wound Class Clean-Contaminated Specialty General ASA Class 2 Diagnosis Preop Diagnosis BURSA RIGHT ELBOW Postop Same As Preop Yes Postop Diagnosis BURSA RIGHT ELBOW Last Modified By: Karen Dobbs 10/15/16 13:33:40 Post-Care Text: O.760 Patient receives consistent and comparable care regardless of the setting Time Out MAGR Entry 1 Time out date/time 10/15/16 12:07:00 All team members Yes have introduced themselves by name and role Surgeon, Yes Surgeon reviews Yes anesthesia, nurse critical or confirm patient, unexpected steps, site, procedure operative duration, anticipated blood loss Anesthesia team Yes Nursing team Yes reviews any reviews sterility patient-specific (including concerns indicator results) and equipment issues/concerns Antibiotic N/A Is essential N/A prophylaxis given imaging displayed? within the last 60 minutes Last Modified By: Karen Dobbs 10/15/16 12:09:23 General Comments: *Antibiotic given after cultures done PER DR YOUNG Patient Positioning MAGR Pre-Care Text: A.280 Identifies baseline musculoskeletal status Im.40 Positions the patient Im.80 Applies safety devices Entry 1 Procedure Incision and Body Position Supine Drainage(Right) Left Arm Position Extended on padded arm Right Arm Position Extended on Hand Table board Left Leg Position Extended Right Leg Position Extended Feet Uncrossed? Yes Press Points Checked Yes Positioning Device Arm Boards, Arm Strap, Outcome Met (O.80) Yes Pillow, Safety Strap, Other/See comments Last Modified By: Karen Dobbs 10/15/16 13:35:38 Post-Care Text: E.290 Evaluates musculoskeletal status O.80 Patient is free from signs and symptoms of injury related to positioning General Comments: gel heel protectors Skin Prep MAGR Pre-Care Text: A.30 Verifies allergies Im.270 Performs skin preparation Im.270.1 Implements protective measures to prevent skin and tissue injury due to chemical sources Entry 1 Skin Prep Syntegrity Prep Agents (Im.270) Povidone-Iodine Prep By Karen Dobbs Prep Area (Im.270) Elbow and forearm Prep Area Details Right Skin Prep Agent Dry Yes Without Pooling Hair Removal Syntegrity Hair Removal Methods No hair removal Hair Removal By Jamison Will DO Hair Removal Site Arm, Elbow and forearm Hair Removal Site Right Details Outcome Met (O.100) Yes Last Modified By: Karen Dobbs 10/15/16 13:36:27 Post-Care Text: E.10 Evaluates for signs and symptoms of physical injury to skin and tissue O.100 Patient is free from signs and symptoms of chemical injury General Comments: NO HAIR REMOVAL DONE Counts Verification MAGR Pre-Care Text: A.20 Verifies operative procedure, surgical site, and laterality A.20.2 Assesses the risk for unintended retained foreign body Im.20 Performs required counts Entry 1 Procedure Incision and Drainage(Right) Counts Verification Initial Counts Items included in Sponges, Sharps Initial Counts Manual the Initial Count Method Initial Counts Karen Dobbs, Initial Count Time 10/15/16 11:15:00 Performed By Maria Ines Dang DOUBLE HEAD MACHINE OPERATOR Counts Verification Final Counts Items Included in Sponges, Sharps Final Count Method Manual Final Count Final Count Status Correct Final Counts Karen Dobbs, Performed By Maria Ines Dang DOUBLE HEAD MACHINE OPERATOR Final Count Time 10/15/16 12:24:00 Surgeon notified of Yes final counts status Outcome Met (O.20) Yes Last Modified By: Karen Dobbs 10/15/16 13:36:49 Post-Care Text: E.50 Evaluates results of the surgical count O.20 Patient is free from unintended retained foreign objects Cautery MAGR Pre-Care Text: A.240 Assesses baseline skin condition A.40 Verifies presence of prosthetics or corrective devices Im.50 Implements protective measures to prevent injury due to electrical sources Entry 1 ESU Type Electrosurgical Unit Identification [id number] Number ESU Settings Syntegrity Cut Setting 30 Coag Setting 30 Bipolar Setting 10 Instrument/Model megadyne Type Grounding Pad Details Grounding Pad Yes Verified By Karen Dobbs Needed? Grounding Pad Site Table Grounding Pad Grounding Pad Site Right Detail Within Expiration Yes Date? Outcome Met (O.10) Yes Last Modified By: Karen Dobbs 10/15/16 11:17:09 Post-Care Text: E.10 Evaluates for signs and symptoms of physical injury to skin and tissue O.10 Patient is free from signs and symptoms of injury related to thermal sources Cultures and Specimens MAGR Pre-Care Text: A.350 Assesses susceptibility for infection A.10 Confirms patient identity Im.320 Manages culture specimen collection Im.330 Manages specimen handling and disposition Entry 1 Cultures Ordered No Specimens Ordered No Outcome Met (O.40) Yes Last Modified By: Karen Dobbs 10/15/16 13:37:19 Post-Care Text: E.40 Evaluates correct processes have been performed for specimen handling and disposition O.40 Patient's specimen(s) is managed in the appropriate manner Medication Administration MAGR Pre-Care Text: A.210 Identifies physiological status Im.220 Administers prescribed medications Entry 1 Time Administered 10/15/16 12:12:00 Medication lidocaine 1% 20 ml and marcaine 0.5% 20ml ( mixed) Route of Admin SubQ Volume 9 mL By Jamison Will Outcome Met (O.130) Yes Wilber DO Last Modified By: Karen Dobbs 10/15/16 12:27:37 Post-Care Text: E.20 Evaluates response to medications O.130 Patient receives appropriately administered medication(s) Dressing/Packing MAGR Pre-Care Text: A.350 Assesses susceptibility for infection Im.290 Administer care to wound sites Entry 1 Skin Prep Agent Yes Site Arm Removed Prior to Dressing? Site Details Right Wound closure Secondary Dressing Item Details Dressing Item 4x4's, ABD, Roller Gauze Packing (Im.290) Iodoform (Im.290) Tape (Im.290) Elastic Sports Bandage Outcome Met Yes Last Modified By: Karen Dobbs 10/15/16 13:33:31 Post-Care Text: E.200 Evaluates progress of wound healing O.200 Patient's wound perfusion is consistent with or improved from baseline levels Departure from OR MAGR Entry 1 Present on Depart Oxygen Via Stretcher Post-op Destination PACU II Skin DFO Condition Dry Description Condition Intact Description Report Given To She Posadas RN Airway Maintenance Patient Status Stable Oxygen in Use? Yes Airway Device Simple mask Flow Rate 15 L/min Last Modified By: Karen Dobbs 10/15/16 13:32:41 General Comments: report per sbar Communication MAGR Pre-Care Text: A.520 Identifies barriers to communication (Patient and Family Communications) A.20 Verifies operative procedure, surgical site, and laterality (Hand-off Communications) Im.500 Provides status reports to family members Im.150 Develops individualized plan of care Entry 1 Communication Face to face Communication By Karen Dobbs Date and Time 10/15/16 12:32:00 Outcome Met (0.50) Yes Last Modified By: Karen Dobbs 10/15/16 13:32:03 Post-Care Text: E.520 Evaluates psychosocial response to plan of care E.800 Ensures continuity of care O.500 Patient or designated support person demonstrates knowledge of the expected psychosocial responses to the procedure O.50 Patient's current status is communicated throughout the continuum of care General Comments: report per sbar Case Comments Finalized By: Karen Dobbs Document Signatures Signed By: Karen Dobbs 10/15/16 13:38 [facility] MAGR PACU Recordon 7 MAGR PACU Record MAGR PACU Record [facility] Primary Physician: Jamison Will DO Finalized Date/Time: 10/15/16 13:00:52 Pt. Name: ADNE PATEL/Sex: 1950 MALE Med Rec #: [id number] Physician: Jamison Will DO Financial #: [id number] Pt. Type: D Room/Bed: / Admit/Disch: 10/15/16 09:16:44 - Institution: PACU Case Times MAGR Entry 1 In PACU I 10/15/16 12:34:00 Discharge from PACU 10/15/16 13:00:00 I Last Modified By: She Posadas RN 10/15/16 13:00:47 General Comments: See Nii for details Finalized By: She Posadas RN Document Signatures Signed By: She Posadas RN 10/15/16 13:00 [facility] MAGR Postoperative Recordon 10-15-2016 MAGR Postoperative Record MAGR Phase II Record Summary Primary Physician: Jamison Will DO Finalized Date/Time: 10/15/16 14:05:56 Pt. Name: ADEN PATEL/Sex: 1950 MALE Med Rec #: [id number] Physician: Jamison Will DO Financial #: [id number] Pt. Type: D Room/Bed: / Admit/Disch: 10/15/16 09:16:44 - Institution: Phase II Case Times MAGR Pre-Care Text: Patient is free from s/s of injury. Patient remains free from compromised physical state related to surgery or anesthesia. Patient comfort maintained. Patient/family verbalize understanding of discharge instructions. Entry 1 In PACU II 10/15/16 13:01:00 Discharge from PACU 10/15/16 13:55:00 II Last Modified By: Betsy Middleton RN 10/15/16 14:01:53 Post-Care Text: The patient remains free from s/s of injury. Patient's vital signs stable, circulation maintained, return to preop mental and physical status, opsite/dressing intact, minimal or absent nausea and vomiting, tolerates po intake. Patient verbalizes adequate pain control. Patient/family express understanding of discharge instructions. General Comments: Pt arrives per cart accompanied by Megan LEYVA. 1315 Assumed care of pt, report given per Luisa Posadas RN 1330 Assisted up to BR to vd qs, amb well. 1340 IV discont., bleeding controlled. Pt dressed. Disch instructions reviewed with pt and , verbalized understanding. Copy of instructions given to pt. 1355 Disch per W/C to private car. Finalized By: Betsy Middleton RN Document Signatures Signed By: Betsy Middleton RN 10/15/16 14:01 Betsy Middleton RN 10/15/16 14:05 Unfinalized History Date/Time Username Reason for Unfinalizing Freetext Reason for Unfinalizing 10/15/16 14:05 OMKAR Correct Documentation Normal [facility] Operative Report - Surgeon/P deuce 10-15-2016 Operative Report - Surgeon/Physician Procedure: Incision and drainage of infected elbow bursa with bursectomy right elbowPre Op Diagnosis: Septic bursitis right elbow with underlying goutPost Op Dianosis: SameSurgeon: Dr. 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 Marked amount of pus and foul smellingBlood Loss: 10-20 ccSpecimen: NoneProcedure Summary: The patient was taken to the operative suite the right arm was sterilely prepped and draped in usual fashion and then a timeout was taken the operating roomI infiltrated the margins of the elbow with a total of 9 cc of a 50% mixture of half percent Marcaine and 1% lidocaine.I made a dorsal incision across the elbow through a wound that was open and exposed the underlying tissueThe bursa was minimally existent as it was partially obliterated with infection and gouty tophi all the pus was evacuated from the bursal region of the elbowI then scraped out the soft tissues and bride the soft tissues removing several gouty deposits. I irrigated thoroughly.I trimmed the margins of the wound to get fresh skinI irrigated some more and then I repaired the skin with a #1 Prolene tension relieving sutureThe skin was approximated loosely to allow a drainage to continue to recur and also to allow insertion of gauze packingAfter thorough irrigation I then inserted iodoform gauze approximately a foot of packingI then wrapped 3 AB D dressings and a 4 inch Rocael around the elbow.He tolerated surgery well and there were no complicationsI had obtained cultures preoperatively in the office so I did not obtain additional cultures here[Electronically Signed on: 10/15/2016 12:48 EDT] Jamison Will DO[Verified on: 10/15/2016 12:48 EDT] Jamison Will DO [facility] Vital Signs Date Time Vital Sign Value Performing Clinician Facility 04-24-2018 04:24-0500 Body temperature 37.0 degrees C [facility] Comment on above: Result Comment: NOTE: PATIENT RESULTS AR E NOT CORRECTED FOR TEMPERATURE. Performed By: #### A FPA3 ####[id number] [id number] 04-23-2018 04:19-0500 Body temperature 37.0 degrees C [facility] Comment on above: Result Comment: NOTE: PATIENT RESULTS AR E NOT CORRECTED FOR TEMPERATURE. Performed By: #### A FPA3 ####[id number] [place] [address] 04-22-2018 10:20-0500 Body temperature 37.0 degrees C [facility] Comment on above: Result Comment: NOTE: PATIENT RESULTS AR E NOT CORRECTED FOR TEMPERATURE. Performed By: #### A FPA3 ####[id number] [place] [address] 04-22-2018 03:42-0500 Body temperature 37.0 degrees C [facility] Comment on above: Result Comment: NOTE: PATIENT RESULTS AR E NOT CORRECTED FOR TEMPERATURE. Performed By: #### A FPA3 ####[id number] [place] [address] 04-21-2018 06:20-0500 Body temperature 37.0 degrees C [facility] Comment on above: Order Comment: critical results read to Cherelle Gonzalez and read back to NORRIS, 04/21/2018 04:27 Result Comment: NOTE : PATIENT RESULTS ARE NOT CORRECTED FOR TEMPERATURE. Performed By: #### A FPA3 ####[id number] [place] [address] 04-19-2018 20:05-0500 Body temperature 37.0 degrees C [facility] Comment on above: Order Comment: CHUYITA EPTERS CALLED TO AMINATA RASCON., 04/19/2018 18:38 Result Comment: NOTE : PATIENT RESULTS ARE NOT CORRECTED FOR TEMPERATURE. Performed By: #### A FPA3 ####[id number] [place] [address] 04-19-2018 05:51-0500 Body temperature 37.0 degrees C [facility] Comment on above: Order Comment: CHUYITA MOISE CALLED RB TO Markie PADGETT, 04/19/2018 04:00 Result Comment: NOTE : PATIENT RESULTS ARE NOT CORRECTED FOR TEMPERATURE. Performed By: #### A FPA3 ####[id number] [place] [address] 04-18-2018 03:19-0500 Body temperature 37.0 degrees C [facility] Comment on above: Result Comment: NOTE: PATIENT RESULTS AR E NOT CORRECTED FOR TEMPERATURE. Performed By: #### A FPA3 ####[id number] [place] [address] 04-17-2018 22:44-0500 Body temperature 37.0 degrees C [facility] Comment on above: Result Comment: NOTE: PATIENT RESULTS AR E NOT CORRECTED FOR TEMPERATURE. Performed By: #### A FPA3 ####[id number] [place] [address] 04-17-2018 17:24-0500 Body temperature 37.0 degrees C [facility] Comment on above: Result Comment: NOTE: PATIENT RESULTS AR E NOT CORRECTED FOR TEMPERATURE. Performed By: #### A FPA3 ####[id number] [place] [address] 04-17-2018 12:17-0500 Body temperature 37.0 degrees C [facility] Comment on above: Result Comment: NOTE: PATIENT RESULTS AR E NOT CORRECTED FOR TEMPERATURE. Performed By: #### H EPFP #### [facility] [id number] [place] [address] 04-17-2018 05:54-0500 Body temperature 37.0 degrees C [facility] Comment on above: Result Comment: NOTE: PATIENT RESULTS AR E NOT CORRECTED FOR TEMPERATURE. Performed By: #### C BCDF #### [facility] [id number] [place] [address] 04-17-2018 02:06-0500 Body temperature 37.0 degrees C [facility] Comment on above: Result Comment: NOTE: PATIENT RESULTS AR E NOT CORRECTED FOR TEMPERATURE. Performed By: #### C OAGS #### [facility] [id number] [place] [address] 04-16-2018 23:19-0500 Body temperature 37.0 degrees C [facility] Comment on above: Result Comment: NOTE: PATIENT RESULTS AR E NOT CORRECTED FOR TEMPERATURE. Performed By: #### A FPA3 ####[id number] [place] [address] 04-16-2018 16:23-0500 Body temperature 37.0 degrees C [facility] Comment on above: Result Comment: NOTE: PATIENT RESULTS AR E NOT CORRECTED FOR TEMPERATURE. Performed By: #### A FPA3 ####[id number] [place] [address] 04-16-2018 13:43-0500 Body temperature 37.0 degrees C [facility] Comment on above: Order Comment: CHUYITA TREJO [facility] CALLED R B TO GM JACINTO, 04/16/2018 12:12 Result Comment: NOTE : PATIENT RESULTS ARE NOT CORRECTED FOR TEMPERATURE. Performed By: #### A FPA3 ####[id number] [place] [address] Encounters Encounter Date Encounter Type Care Provider Facility Start: 06-17-2023 End: 06-17-2023 ambulatory AUDREY RAMIREZ Not Available Start: 06-10-2023 End: 06-10-2023 ambulatory AUDREY RAMIREZ Not Available Start: 06-03-2023 End: 06-03-2023 ambulatory AUDREY A RUS Not Available Start: 05-27-2023 End: 05-27-2023 ambulatory AUDREYSTARR RAMIREZ Not Available Start: 05-26-2023 End: 05-26-2023 ambulatory AUDREY RAMIREZ Not Available Start: 05-12-2023 Chart abstracting Audrey hammer DPM Work Phone: [facility] Start: 04-14-2023 End: 04-14-2023 ambulatory [facility] Start: 01-05-2023 End: 01-06-2023 ambulatory Ronald CHOWDARY Facility:[facility] Start: 01-05-2023 End: 01-05-2023 Patient encounter procedure Ronald CHOWDARY General Surgery Nill/Said Tevin Start: 12-29-2022 End: 12-30-2022 ambulatory Ronald CHODWARY Facility:CD:[id number] Start: 12-21-2022 End: 12-22-2022 ambulatory Quentin Rangel Facility:[facility] Start: 12-14-2022 ambulatory Quentin Rangel Facility:[facility] Start: 06-08-2022 ambulatory ISSAC SEXTON [facility] Start: 05-20-2022 End: 05-21-2022 ambulatory ISSACJOSE [facility] Start: 05-04-2022 End: 05-05-[address] ANNE-MARIE BAKER Facility:[facility] Start: 05-03-2022 End: 05-03-2022 ambulatory ANNE-MARIE BAKER [facility] Start: 04-19-2022 End: 04-20-[address] ANNE-MARIE BAKER Facility:[facility] Start: 09-16-[address] ANN-EMARIE BAKER Fac ility:[facility] Start: 05-26-2021 End: 05-27-[address] ANNE-MARIE BAKER Facility:[facility] Start: 12-11-2018 End: 12-12-2018 Patient encounter procedure GABRIELLE QUEZADA Facility:[facility] Start: 12-24-2016 End: 12-24-2016 Ambulatory Facility:[facility] Start: 12-22-2016 End: 12-22-2016 Ambulatory Facility:[facility] Start: 10-15-2016 End: 12-30-2016 Ambulatory Facility:[facility] Procedures Date Procedure Procedure Detail Performing Clinician Start: 04-24-2018 Antibody screen Comment on above: Performed By: #### T +S ####[id number] [place] [address] Start: 04-20-2018 Antibody screen Comment on above: Performed By: #### T +S ####[id number] [place] [address] Start: 04-17-2018 Antibody screen Comment on above: Performed By: #### C OAGS #### [facility] [id number] 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 Incision and drainag e of infected bursa of elbow area Ronald NILL Repair of joint of l eft hip Ronald NILL Repair of joint of r ight hip Ronald NILL Small intestine excision Kaz haelton NILL Plan of Treatment Date Care Activity Detail Author Start: 05-12-2023 End: 05-12-2023 Patient encounter procedure 05/12/2023 1:45 PM EST Office Visit [facility] [address] [place] [address] Audrey Ramirez DPM [address] [place] [address] [facility] Payers Date Payer Category Payer Private Health Insurance [id number] 2016 Private Health Insurance [id number] 1959 Medicare [id number] 1959 Self-pay [id number] 1959 Unknown [id number] 1952 Unknown [id number] 2.16.8 [id number] 1952 Unknown [id number] 2.16.84 [id number] 1952 Unknown [id number] 2.16.84 [id number] 1952 Unknown [id number] 2.16.84 [id number] 1952 Unknown [id number] 2.16.84 [id number] 1952 Unknown [id number] 2.16.8 [id number] 1952 Unknown [id number] 2.16.8 [id number] 1952 Unknown [id number] 2.16.8 [id number] 1952 Unknown [id number] 2.16.84 [id number] 1952 Unknown [id number] 2.16.84 [id number] 1952 Unknown [id number] 2.16.84 [id number] 1952 Unknown [id number] 2.16.84 [id number] 1952 Unknown [id number] 2.16.84 [id number] Social History Date Type Detail Facility Start: 12-21-2022 Tobacco smoking status Light t obacco smoker (finding) [facility] Tobacco smoking status Never [facility] Sex Assigned At Male [facility] Start: 03-28-1972 [facility] Start: 03-28-1972 History of tobacco use Cigarette Smo ker [facility] Start: 05-12-2023 Alcohol intake Current drinke r of alcohol (finding) [facility] Start: 05-12-2023 Alcohol Comment Caffeine : no [facility] Start: 1950 Sex Assigned At Not on file [facility] Progress note 04-14-2023 Note Date & Type Note Facility 04-14-2023 Note [place] [facility] Subjective Aden Patel is a 72 y.o. year old male patient being seen for 1 year follow up chronic systolic heart failure, CAD, hypertension, and AAA. He saw CT surgery in May 2022 at [facility]. Routine labs were done in Nov 2022. Says he saw Dr. Rangel last week for LE edema and he doubled lasix and spironolactone. Was told to call Dr. Rangel back if the increase in diuretic was not helping. He doesn't think it is helping him. Denies increase in SALEEM and significant weight gain. Patient Active Problem List Diagnosis Coronary arteriosclerosis Hypertensive disorder Systolic heart failure (CMS/HCC) Anemia of chronic disease Aneurysm of ascending aorta (CMS/HCC) Avascular necrosis of bone of hip (CMS/HCC) BPH (benign prostatic hyperplasia) Cardiomyopathy due to hypertension (CMS/HCC) Diastolic dysfunction Diverticulosis Edema Gout History of deep vein thrombosis Lumbar radiculopathy Mixed anxiety and depressive disorder Mixed hyperlipidemia Neoplasm of uncertain behavior of skin of face Nicotine dependence BMI 30.0-30.9,adult Obstructive sleep apnea syndrome Paroxysmal atrial fibrillation (CMS/HCC) Family History Problem Relation Name Age of Onset Heart failure Mother Heart failure Father Social History Tobacco Use Smoking status: Every Day Types: Cigarettes Last attempt to quit: 08/27/2019 Years since quittin.6 Smokeless tobacco: Never Substance Use Topics Alcohol use: Yes Alcohol/week: 2.0 standard drinks of alcohol Types: 2 Cans of beer per week Drug use: Never HPI This is a 71-year-old man with prior history of coronary artery disease and chronic total occlusion of the right coronary artery, mixed ischemic and nonischemic cardiomyopathy with prior stress testing showing fixed inferior defect with no ischemia. He has chronic systolic heart failure and last echocardiogram in January 2021 showed an ejection fraction of 35 to 40%. He has history of hypertension on treatment. At last visit of May 29, 2021 I continue to optimize medical therapy. I had started him on Jardiance for systolic heart failure and increased carvedilol dosage. I have reduced spironolactone to 12.5 mg once daily due to his renal function being worse than baseline. I saw him last on 12/07/2021. His reported that few weeks ago he was leaning on the fence and he started shaking and then his left arm and leg became suddenly weak and then he started staring at her without being responsive. This lasted about 1 to 2 minutes and then resolved. When he was back to baseline he had no recollection of the event. He had no residual neurological deficits. I saw him subsequently iin 04/2022, he has not had recurrence of the above neurologic symptoms. He did not see a neurologist. He does not like to have testing and his mentions that it is very difficult to get him to go to doctor's office or hospital . Today he says he's been well. He denies chest pain. He has mild shortness of breath on exertion. He has no dizziness or lightheadedness. His main issue is lower extremity edema. His primary care physician increased his diuretic therapy without any significant response. The edema is better in the morning and worse in end of the day his prior echocardiogram showed improvement in ejection fraction to the normal range. However it showed a significant enlargement of the ascending aorta consistent with an aneurysm. CT scan of the chest showed the aneurysm to measure 4.4 cm. He was evaluated by cardiothoracic surgery and recommended observation. Review of Systems Cardiovascular: Positive for dyspnea on exertion (no increase) and leg swelling. Respiratory: Positive for cough and wheezing. Objective Visit Vitals BP 130/88 (BP Location: Left arm, Patient Position: Sitting) Pulse 67 Ht 1.829 m (6') Wt 109 kg (240 lb) SpO2 97% BMI 32.55 kg/m??? Smoking Status Every Day BSA 2.35 m??? Physical Exam Constitutional: Appearance: He is well-developed. He is obese. He is not ill-appearing. HENT: Head: Normocephalic and atraumatic. Nose: Nose normal. Eyes: General: No scleral icterus. Pupils: Pupils are equal, round, and reactive to light. Neck: Thyroid: No thyromegaly. Vascular: No JVD. Cardiovascular: Rate and Rhythm: Normal rate and regular rhythm. Pulses: Radial pulses are 2+ on the right side and 2+ on the left side. Heart sounds: Normal heart sounds. No murmur heard. No friction rub. No gallop. Pulmonary: Effort: Pulmonary effort is normal. No respiratory distress. Breath sounds: Normal breath sounds. No wheezing or rales. Chest: Chest wall: No tenderness. Abdominal: General: Bowel sounds are normal. There is no distension. Palpations: Abdomen is soft. Tenderness: There is no abdominal tenderness. Musculoskeletal: General: No swelling. Cervical back: Neck supple. Right lower le+ (more content not included)... [facility] Clinical Note 12-21-2022 Note Date & Type Note Facility 09-26-2023 Note Chief Complaint consultation for skin lesion HPI Staff 72 year old male presents on consultation from Dr. Rangel for skin lesion left cheek. Present for several months. Reports gradual increase in size. Reports intermittent soreness at base of lesion. Denies bleeding. History of Present Illness 72 yo male with h/o a fib, htn, cardiomyopathy, CHF, DMII, hyperlipidemia, DEBBIE, COPD, gout, referred for enlarging painful skin lesion left cheek; noted lesion several months ago, raised, keratotic lesion, painful, superficial part sloughs off then grows back; no h/o skin cancer; h/o increased sun exposure; no asa or NSAID use; smokes daily. Review of Systems PHQ Score Initial Depression Screen Score: 0 ROS - Provider Constitutional: no fever, no sweats, no weight loss. Eyes: no glasses, no blurred vision, no visual loss. ENMT: no dentures, no hoarseness, no swallowing difficulties, no hearing loss, no ear infection(s), no nose bleeds. Cardiovascular: normal blood pressure, no chest pain, regular heartbeat, no heart murmur. Respiratory: no shortness of breath, no cough, no asthma, no wheezing. Gastrointestinal: no nausea, no vomiting, no diarrhea, no constipation, no blood in stool, no change in bowel habits, no abdominal pain, no hepatitis. Genitourinary: no kidney stones, no urine infection, no dysuria. Musculoskeletal: no pain, no weakness. Skin: no changing moles, no rash, no skin lumps. Neurologic: no seizures, no epilepsy, no headache. Psychiatric: no emotional or psychiatric problem. Heme/Lymph: no bleeding problems, no anemia, no blood clots, no transfusions. Allergy/Immunologic: no swollen lymph nodes/glands, no IV drug abuse. Other: Additional ROS info: Except as noted in the above Review of Systems and in the History of Present Illness, all other systems have been reviewed and are negative or noncontributory. Physical Exam Vitals & Measurements HR: 76(Peripheral) RR: 16 BP: 132/82 HT: 72 in HT: 182.8 cm WT: 101.5 kg WT: 223.3 lb BMI: 30.37 HEENT: normal conjunctiva, sclera clear, no scleral icterus, EOM intact, PERRLA, oral mucosa moist without lesions. Neck: trachea midline, no mass, symmetric, no thyromegaly or nodules, no adenopathy Respiratory: lungs CTA, respirations non labored. Cardiovascular: regular rate and rhythm, no murmur, no pedal edema or varicosities. Lymphatic: no cervical adenopathy, no supraclavicular adenopathy. Musculoskeletal: normal gait, digits and nails without infection, nodes, cyanosis, clubbing. Skin: no rashes, left cheek with 7 mm raised erythematous lesion with associated keratin horn, no ulcers, no subcutaneous nodules, induration. multiple ecchymoses upper extremities Psychiatric/Neuro: oriented to time, place, person, judgement normal, affect appropriate for age, insight intact, no focal deficits. Tests: , review of old records completed, Discussed surgical options, risks, and possible complications with patient. Assessment/Plan 1. Neoplasm of uncertain behavior of skin of face (D48.5: Neoplasm of uncertain behavior of skin) plan excisional biopsy under local anesthesia at [facility] for definitive diagnosis and treatment, informed consent obtained. Follow-up No qualifying data available Problem List/Past Medical History Ongoing Anemia of chronic disease Aneurysm of ascending aorta Ascending aorta dilation Avascular necrosis of bone of hip BMI 30.0-30.9,adult BPH (benign prostatic hyperplasia) Cardiomyopathy due to hypertension Congestive heart failure Diastolic dysfunction Diverticulosis Essential hypertension Gout History of deep vein thrombosis Lumbar radiculopathy Mixed anxiety and depressive disorder Mixed hyperlipidemia Neoplasm of uncertain behavior of skin of face Nicotine dependence Obesity Obstructive sleep apnea syndrome Paroxysmal atrial fibrillation Historical No qualifying data Procedure/Surgical History Appendectomy, Arthroplasty of left hip, Arthroplasty of right hip, Colonoscopy, Incision and drainage of infected bursa of elbow area, Small bowel resection. Medications allopurinol 300 mg Tab, 300 mg= 1 tab(s), Oral, Daily atorvastatin 40 mg Tab, 40 mg= 1 tab(s), Oral, Daily carvedilol 25 mg Tab, 25 mg= 1 tab(s), Oral, BID colchicine 0.6 mg Tab, 0.6 mg= 1 tab(s), Oral, Daily hydrALAZINE 100 mg oral tablet, 100 mg= 1 tab(s), Oral, BID isosorbide mononitrate 120 mg ER Tab, 120 mg= 1 tab(s), Oral, qAM Jardiance 10 mg oral tablet, 10 mg= 1 tab(s), Oral, qAM Lasix 40 mg Tab, 40 mg= 1 tab(s), Oral, Daily multivitamin with iron, 1 tab(s), Oral, Daily Pantoprazole [address] Tab, 40 mg= 1 tab(s), Oral, Daily spironolactone 25 mg Tab, 25 mg= 1 tab(s), Oral, Daily Wellbutrin XL 150 mg/24 hours Tab-ER, 150 mg= 1 tab(s), Oral, q24hr Allergies No Known Allergies No Known Medication Allergies Social History Alcohol - Denies Alcohol Use, 12/21/2022 Substance Abuse - Denies Substance Abuse, 12/21/2022 Tobac (more content not included)... [facility] Comment on above: Result Comment: Elec tronically Signed By: EPI MENENDEZ, Ronald Arenas\Date and Time Signed: 12/21/22 14:24 EDT Progress note 06-08-2022 Note Date & Type Note Facility 06-08-2022 Note Subjective Patient ID: Aden Patel is a 71 y.o. male w/ significant PMH of CAD, Hypertension, heart failure, and hypercholesterolemia. on referral from Dr. Baker for evaluation of an ascending aortic aneurysm incidentally found on echo. An echo was ordered following a neurological event including sudden weakness of left arm and leg. A CT scan was then ordered and it showed a 4.4cm aneurysm. Patient is experiencing SOB when walking long distances but has no chest pain. He smokes approximately a pack/week. He drinks approximately 2-3 beers a day. Review of Systems Respiratory: Negative for chest tightness and shortness of breath. Cardiovascular: Negative for chest pain and palpitations. Neurological: Negative for weakness and numbness. Objective Visit Vitals BP 132/66 (BP Location: Left arm, Patient Position: Sitting) Pulse 67 Temp 37 ???C (98.6 ???F) (Temporal) Physical Exam Constitutional: General: He is not in acute distress. Appearance: Normal appearance. He is obese. He is not ill-appearing. HENT: Head: Normocephalic and atraumatic. Cardiovascular: Rate and Rhythm: Normal rate and regular rhythm. Pulmonary: Effort: Pulmonary effort is normal. No respiratory distress. Neurological: Mental Status: He is alert and oriented to person, place, and time. Psychiatric: Mood and Affect: Mood normal. Behavior: Behavior normal. Thought Content: Thought content normal. Judgment: Judgment normal. Assessment/Plan Aden Ptael is a 71 y.o. male w/ significant PMH of CAD, Hypertension, heart failure, and hypercholesterolemia. on referral from Dr. Baker for evaluation of an ascending aortic aneurysm incidentally found on echo. Follow-up CT scan shows ascending aortic aneurysm measuring 4.4cm. Order follow-up CT scan in 3 months for monitoring Control blood pressure Smoking cessation recommended Encourage increased activity Encourage weight loss Risks and symptoms discussed with patient and encouraged to call 911 if symptoms worsen Serina Calderon As the teaching physician, I have personally performed or re-performed the history of present illness, physical exam and medical decision-making activities of the encounter and agree with the above documentation . Issac Sexton MD [facility] Progress note 05-03-2022 Note Date & Type Note Facility 05-03-2022 Note [place] [facility] Subjective Aden Patel is a 71 y.o. year old male patient being seen for Congestive Heart Failure, Coronary Artery Disease, and Hypertension Patient here for 4 mo follow up. Had echo, carotid us, and labs. Has not had recurrent episodes of brief paralysis. Says he feels good and hasn't had LE edema lately. Patient Active Problem List Diagnosis Coronary arteriosclerosis Hypertensive disorder Systolic heart failure (CMS/HCC) Family History Problem Relation Name Age of Onset Heart failure Mother Heart failure Father Social History Tobacco Use Smoking status: Former Types: Cigarettes Quit date: 08/27/2019 Years since quittin.6 Substance Use Topics Alcohol use: Yes Alcohol/week: 2.0 standard drinks Types: 2 Cans of beer per week Drug use: Never This is a 71-year-old man with prior history of coronary artery disease and chronic total occlusion of the right coronary artery, mixed ischemic and nonischemic cardiomyopathy with prior stress testing showing fixed inferior defect with no ischemia. He has chronic systolic heart failure and last echocardiogram in January 2021 showed an ejection fraction of 35 to 40%. He has history of hypertension on treatment. At last visit of May 29, 2021 I continue to optimize medical therapy. I had started him on Jardiance for systolic heart failure and increased carvedilol dosage. I have reduced spironolactone to 12.5 mg once daily due to his renal function being worse than baseline. I saw him last on 12/07/2021. His reported that few weeks ago he was leaning on the fence and he started shaking and then his left arm and leg became suddenly weak and then he started staring at her without being responsive. This lasted about 1 to 2 minutes and then resolved. When he was back to baseline he had no recollection of the event. He had no residual neurological deficits. I asked for an echo, carotid ultrasound, referred him to neurology. Today he is seen in follow up. He has not had recurrence of the above neurologic symptoms. He did not see a neurologist. He does not like to have testing and his mentions that it is very difficult to get him to go to doctor's office or hospital . He denies chest pain. He has mild shortness of breath on exertion. No significant lower extremity edema. He has no dizziness or lightheadedness. His said that they will be making an appointment with a neurologist soon. his echocardiogram showed improvement in ejection fraction to the normal range. However it showed a significant enlargement of the ascending aorta consistent with an aneurysm. I had ordered a CT scan of the chest when I got the results but this was not done yet. Congestive Heart Failure His past medical history is significant for CAD. Coronary Artery Disease His past medical history is significant for CHF. Hypertension Review of Systems HENT: Positive for hearing loss. Cardiovascular: Positive for dyspnea on exertion. All other systems reviewed and are negative. Objective Visit Vitals BP 95/65 (BP Location: Right arm, Patient Position: Sitting) Pulse 78 Ht 1.829 m (6') Wt 105 kg (232 lb) SpO2 95% BMI 31.46 kg/m??? Smoking Status Former BSA 2.31 m??? Physical Exam Constitutional: Appearance: He is well-developed. He is obese. He is not ill-appearing. HENT: Head: Normocephalic and atraumatic. Nose: Nose normal. Eyes: General: No scleral icterus. Pupils: Pupils are equal, round, and reactive to light. Neck: Thyroid: No thyromegaly. Vascular: No JVD. Cardiovascular: Rate and Rhythm: Normal rate and regular rhythm. Pulses: Radial pulses are 2+ on the right side and 2+ on the left side. Heart sounds: Normal heart sounds. No murmur heard. No friction rub. No gallop. Pulmonary: Effort: Pulmonary effort is normal. No respiratory distress. Breath sounds: Normal breath sounds. No wheezing or rales. Chest: Chest wall: No tenderness. Abdominal: General: Bowel sounds are normal. There is no distension. Palpations: Abdomen is soft. Tenderness: There is no abdominal tenderness. Musculoskeletal: General: No swelling. Cervical back: Neck supple. Right lower le+ Pitting Edema present. Left lower le+ Pitting Edema present. Skin: General: Skin is warm and dry. Neurological: General: No focal deficit present. Mental Status: He is alert and oriented to person, place, and time. Psychiatric: Mood and Affect: Mood normal. Behavior: Behavior is cooperative. Judgment: Judgment normal. Allergies No Known Allergies Medications Current Outpatient Medications: allopurinol (Zyloprim) 300 mg tablet, Take 1 tablet by mouth in the morning., Disp: , Rfl: aspirin 81 mg EC tablet, Take 1 tablet every day by oral route for 90 days., Disp: , Rfl: atorvastatin (Lipitor) 40 mg tablet, Take 1 tablet (40 mg) by mouth in the morning. (Pat (more content not included)... [facility] Evaluation + Plan note Note Date & Type Note Facility Evaluation + Plan note No data available for this section [facility] Discharge instructions Note Date & Type Note Facility Hospital Discharge instructions No data available for this section [facility] Progress note Note Date & Type Note Facility Progress note No data available for this section [facility] [place] Summary Purpose Family History No Family History Records FoundNo Family History Records FoundNo Family History Records FoundNo Family History Records FoundNo Family History Records Found No data available for this section No Family History Records FoundNo Family History Records FoundNo Family History Records Found Advance Directives No Advanced Directives Records FoundNo Advanced Directives Records FoundNo Advanced Directives Records FoundNo Advanced Directives Records FoundNo Advanced Directives Records FoundNo Advanced Directives Records FoundNo Advanced Directives Records FoundNo Advanced Directives Records Found Additional Source Comments (unrecognized sect ion and content) No Status Records FoundNo Status Records FoundNo Status Records FoundNo Status Records FoundNo Status Records FoundNo Status Records FoundNo Status Records FoundNo Status Records Found INFORMATION SOURCE (unrecogn ized section and content) DATE CREATED AUTHOR 09/13/2017 [facility] DATE CREATED AUTHOR AUTHOR'S ORGANIZ ATION 04/06/2018 [employer] DATE CREATED AUTHOR AUTHOR'S ORGANIZ ATION 01/30/2019 [facility] DATE CREATED AUTHOR AUTHOR'S ORGANIZ ATION 04/06/2019 [facility] DATE CREATED AUTHOR AUTHOR'S ORGANIZ ATION 05/07/2022 [facility] DATE CREATED AUTHOR AUTHOR'S ORGANIZ ATION 01/21/2023 [facility] DATE CREATED AUTHOR AUTHOR'S ORGANIZ ATION 04/15/2023 [facility] DATE CREATED AUTHOR AUTHOR'S ORGANIZ ATION 06/18/2023 [facility] EPIC Patient Care team informatio n (unrecognized section and content) Personnel Name: Quentin Rangel MD Address: Address: [address] [place] [address] FOR RECORDS PERTAINING TO PATIENTS WHO ARE OR HAVE BEEN ENROLLED IN A CHEMICAL DEPENDENCY/SUBSTANCEABUSE PROGRAM, SOME INFORMATION MAY BE OMITTED. This clinical summary was aggregated from multiple sources. Caution should be exercised in using it in the provision of clinical care. This summary normalizes information from multiple sources, and as a consequence, information in this document may materially change the coding, format and clinical context of patient data. In addition, data may be omitted in some cases. CLINICAL DECISIONS SHOULD BE BASED ON THE PRIMARY CLINICAL RECORDS. [facility] [employer] provides no warranty or guarantee of the accuracy or completeness of information in this document.
[2023-06-20 15:34] LABS: Alanine Aminotransferase 25 U/L (16-63); Albumin Globulin Ratio 1.1; Albumin Level 3.5 g/dL (3.4-5.0); Alkaline Phosphatase 90 U/L (46-116); Anion Gap 14.8; Aspartate Amino Transferase 23 U/L (15-37); BUN Creatinine Ratio 11.6; Bilirubin Total 0.6 mg/dL (0.2-1.0); Calcium 9.2 mg/dL (8.5-10.1); Carbon Dioxide 27.1 mmol/L (21.0-32.0); Chloride 102 mmol/L (98-107); Estimated GFR (African America >60 (>=60); Estimated GFR (Non-African Ame >60 (>=60); Globulin 3.3 g/dL; Glucose 121 mg/dL (74-106); Potassium 4.9 mmol/L (3.5-5.1); Sodium 139 mmol/L (136-145); Total Protein 6.8 g/dL (6.4-8.2)
== END 2023-06-20 11:38 | disposition home or self-care (01) ==
LOC: LAB 11:39
PROVIDERS: PCP Family Medicine; Visit Provider Family Medicine
DX: R60.9 Edema, unspecified (principal); I10 Essential (primary) hypertension; I50.30 Unspecified diastolic (congestive) heart failure
CPT/HCPCS: 36415; 80053; 83880; 85025

== ENCOUNTER 2023-06-29 10:21 | Outpatient (OUT) | payer MEDICARE, OTHER, SELFPAY ==
--- NOTE | 2023-06-29 10:29 | VEIN_ITS ---
Patient Name: HEAVEN PATEL MR#: [id number] : 1950 Exam Date: 06/29/2023 Ordering Doctor: DR QUENTIN OVALLE . RADIOLOGY REPORT PROCEDURE: VC EXT VENOUS REFLUX MACHELLE LMTD COMPARISON: None. INDICATIONS: Edema R60.0 TECHNIQUE: Duplex imaging of the lower extremity to assess the deep and superficial venous system for the presence of deep or superficial venous incompetence and to document the location and severity of disease. The study includes evaluation of the great saphenous vein (GSV), anterior accessory saphenous vein (AASV) and small saphenous vein (SSV). Patient scanned in reverse Trendelenburg and standing. FINDINGS: RIGHT LOWER EXTREMITY: Saphenofemoral Junction Reflux: Yes 9.9mm 0.5 sec GSV: Diam (mm) Reflux/ Time (sec) Proximal Thigh 7.2 Yes 0.7 Mid Thigh 5.9 Yes 0.6 Distal Thigh 4.6 Yes 0.5 Prox Calf 4.0 Yes 0.9 Mid Calf 4.6 Yes 0.5 Saphenopopliteal Junction Reflux: 3.4mm Yes 0.3 SSV: Proximal Calf 2.4 Yes 0.8 Mid Calf 3.3 Yes 0.3 AASV: Not present Proximal Thigh Mid Thigh Distal Thigh Thrombi: No thrombus within the deep veins. Compressibility: Normal. Flow: Mild deep venous reflux. Preforator: Dist/medial lower leg near wound measures 4.3 mm with 1.0s reflux. Mid lateral lower leg 3.1 mm with 0.9s reflux. Tech Note: Large right popliteal artery aneurysm that measures 6.2 x 4.8 x 4.4 cm with thick surrounding mural thrombus. Significant edema in lower leg. Incompetent varicose vein proximal medial lower leg measures 4.2 mm with 0.6s reflux. Varicose vein proximal medial lower leg measures 4.0 mm with 0.8s reflux. LEFT LOWER EXTREMITY: Saphenofemoral Junction Reflux: Yes 8.7 mm 2.5 sec GSV: Diam (mm) Reflux/Time (sec) Proximal Thigh 9.0 Yes 1.5 Mid Thigh 4.2 Yes 1.1 Distal Thigh 3.7 Yes 0.9 Prox Calf 4.5 Yes 0.8 Mid Calf 3.4 Yes 0.4 Saphenopopliteal Junction Relux: 2.8 mm Yes 0.2 SSV: Proximal Calf 1.9 Yes 0.5 Mid Calf 2.7 Yes 0.3 AASV: Not present Proximal Thigh Mid Thigh Distal Thigh Thrombi: No acute or chronic thrombus. Compressibility: Normal. Flow: Mild deep venous reflux. Television Reporter: Distal medial lower leg 4.1 mm with 1.5s reflux. Distal medial lower leg measures 3.5 mm with 0.6s reflux. Tech Note: Small left popliteal artery aneurysm measures 1.6 cm. Significant edema in lower leg. Enlarged lymph node in left groin measures 4.1x 2.2 x 1.3 cm. Incompetent varicose vein mid anterior lower leg measures 4.0 mm with 0.5s reflux. Varicose vein proximal medial lower leg measures 4.2mm with 3.4s reflux. CONCLUSION: 1. Large right popliteal artery aneurysm 4.8 cm in diameter by 6.2 cm in length with thick mural thrombus. No visible extravasation. 2. Small left popliteal artery aneurysm 1.6 cm in diameter. 3. Dilated, incompetent great saphenous veins bilaterally. 4. Multiple dilated and incompetent army manager veins within distal lower extremities bilaterally in regions of skin changes and nonhealing wounds. 5. Marked bilateral distal lower extremity edema. 6. Enlarged, heterogeneous, possibly inflamed, within left groin. This may be secondary to chronic edema. Dr. Ovalle's office was contacted at time of initial ultrasound evaluation regarding the large right popliteal artery aneurysm. Patient now has an appointment with vascular surgery scheduled for today in [place] for evaluation of the aneurysm. Findings have been discussed with the patient and the patient has contacted Dr. Ovalle's office. Dictated by: Gamal Givens M.D. on 06/29/2023 at 11:48 Approved by: Gamal Givens M.D. on 06/29/2023 at 11:59
--- NOTE | 2023-06-29 10:29 | VEIN_ITS ---
Patient Name: HEAVEN PATEL MR#: [id number] : 1950 Exam Date: 06/29/2023 Ordering Doctor: DR QUENTIN RANGEL . RADIOLOGY REPORT PROCEDURE: [facility] - OFFICE VISIT INITIAL COMPARISON: None. PROGRESS NOTES: [age] year old male who presents with a 5 year history of lower extremity pain, swelling, bulging veins, skin changes. The patient's right leg symptoms are worse than the left. There has been a progression of symptoms over past several months with increasing right leg pain and nonhealing wounds. Overall symptoms increased with prolonged leg dependency. The new right leg pain is better while standing, and increases while sitting. The patient describes an improvement with rest, elevation, exercise, support stockings. The patient denies any signs and symptoms to suggest arterial ischemia. The patient describes a family history varicose veins on maternal side. The patient has drinking and smoking history of occasional alcohol consumption and current tobacco use. Patient has a past medical history significant for congestive heart failure, hypertension, heart disease, diabetes mellitus type 2, perforated colon. The patient has history of prior pulmonary embolism following leg fracture. See separate history and physical for medication list. No prior treatment for varicose or spider veins. Current use of compression stockings. After review of nurse notes, history and physical exam I discussed at length the pathophysiology of venous hypertension and possible treatments, therapies and strategies available. We discussed at length the importance of elevating the lower extremities above the level of the heart, increased physical activity and compression stocking use. Ultrasound venous reflux study performed today was discussed at length with the patient. The report demonstrates abnormally dilated incompetent great saphenous veins bilaterally and several dilated incompetent distal lower extremity kidney trimmer veins bilaterally. Multiple incompetent branch saphenous varicosities. Also discovered was a large right popliteal artery aneurysm and a small left popliteal artery aneurysm.. PHYSICAL EXAM: The right leg demonstrates several varicosities, a few scattered spider veins, distal lower extremity ulceration, marked edema, moderate skin discoloration. The left leg demonstrates several varicosities, a few scattered spider veins, no current ulceration, marked edema, moderate skin discoloration. Both thighs, legs and feet were symmetrically warm to the touch. Good posterior tibial and dorsalis pedis pulses were present bilaterally. VEIN/ Facility EST Comprehensive IMPRESSION: 1. Bilateral lower extremity venous insufficiency 2. Bilateral lower extremity varicose veins 3. Marked bilateral lower extremity subcutaneous edema 4. Large right popliteal artery aneurysm (4.8 cm in diameter) and small left popliteal artery aneurysm. 5. CEAP: C6, EC, AP, MS PLAN: 1. Continued use of compression stockings 2. Elevated legs and increased physical activity symptomatic relief 3. Patient is now scheduled to meet today with vascular surgeon for newly discovered right popliteal artery aneurysm. 4. Endovenous laser ablation of bilateral great saphenous veins in bilateral kidney trimmer veins. 5. Microfoam chemical ablation of incompetent branch saphenous varicosities. Nurse notes, history and physical were reviewed and confirmed, see attached forms. The nurse was present throughout the physical exam and consultation Dictated by: Gamal Givens M.D. on 06/29/2023 at 11:59 Approved by: Gamal Givens M.D. on 06/29/2023 at 12:06
== END 2023-06-29 10:22 | disposition home or self-care (01) ==
LOC: VC 10:21
PROVIDERS: PCP Family Medicine; Visit Provider Family Medicine
DX: R60.0 Localized edema (principal)
CPT/HCPCS: 93970; G0463

== ENCOUNTER 2023-07-13 09:20 | Outpatient (OUT) | payer MEDICARE, OTHER, SELFPAY ==
--- NOTE | 2023-07-13 09:21 | VEIN_ITS ---
Patient Name: HEAVEN APTEL MR#: [id number] : 1950 Exam Date: 07/13/2023 Ordering Doctor: BART CONWAY M.D. RADIOLOGY REPORT PROCEDURE: VC VEIN MAPPING BILAT LIMITED COMPARISON: None. INDICATIONS: Z01.818 Pre-op exam TECHNIQUE: Duplex imaging of the lower extremity to assess the deep and superficial venous system for the presence of deep vein thrombosis and to evaluate the superficial veins size and distance from the skin surface. This study incudes evaluation of the great saphenous vein (GSV), Anterior Accessory Saphenous Vein (AASV) and the Small Saphenous Vein (SSV). FINDINGS: RIGHT LOWER EXTREMITY: GSV: Diameter (mm) Distance from Skin (mm) Proximal Thigh 6.8 10.8 Mid Thigh 3.3 10.5 Distal Thigh 3.4 13.1 Prox Calf 4.3 8.3 Mid Calf 4.9 10.1 Distal Calf 4.4 13.0 SSV: Proximal Calf 3.1 8.8 Mid Calf 2.5 9.3 Distal Calf 3.2 11.4 AASV: Not present Thrombi: No acute or chronic thrombus. Known right popliteal artery aneurysm. Compressibility: Normal. LEFT LOWER EXTREMITY: GSV: Diameter (mm) Distance from Skin (mm) Proximal Thigh 4.6 12.2 Mid Thigh 4.1 8.2 Distal Thigh 4.0 9.7 Prox Calf 3.8 5.6 Mid Calf 3.5 14.6 Distal Calf 4.5 11.9 SSV: Proximal Calf 2.1 13.1 Mid Calf 2.9 16.7 Distal Calf 2.8 15.9 AASV: Not present Proximal Thigh Mid Thigh Distal Thigh Thrombi: No acute or chronic thrombus. Compressibility: Normal. CONCLUSION: Vein mapping detailed above Dictated by: Bharathi Crawford MD on 07/13/2023 at 11:29 Approved by: Bharathi Crawford MD on 07/13/2023 at 11:29
--- OUTSIDE RECORDS SUMMARY | 2023-07-13 12:47 | XMS_ITS | CCD ---
Author Organization [facility] Care Team Providers Care Travel Nurse Name Role Phone Jamison Will Unavailable Unavail able Nicolette, Jamison Merino Unavailable Unavail able HOY, QUENTIN Unavailable Unavailable Ezra Young Unavailable Unavailable Nicolette, Jamison Merino Unavailable Unavail able Nicolette, Jamison Merino Unavailable Unavail able HOY, QUENTIN Unavailable Unavailable Feliciano Davies Unavailable Unavailable Nicolette, Jamison Merino Unavailable Unavail able Nicolette, Jamison Merino Unavailable Unavail able HOY, QUENTIN Unavailable Unavailable HOY, QUENTIN Unavailable Unavailable GABRIELLE QUEZADA Admitting Unavailable GABRIELLE QUEZADA Attending Unavailable QUENTIN RANGEL Referring Unavailable QUENTIN RANGEL Primary Care Unavailable MOUKARBEL, DR XIE Admitting Unavailable MOUKARBEL, DR XIE Attending Unavailable HOY, DR SAAVEDRA Primary Care Unavailable Zieber, DR Yeung Consulting Unavailable MOUKARBEL, DR XIE Consulting Unavailable MOUKARBEL, DR XIE Admitting Unavailable MOUKARBEL, DR XIE Attending Unavailable HOY, DR SAAVEDRA Primary Care Unavailable MOUKARBEL, DR XIE Consulting Unavailable MOUKARBEL, DR XIE Admitting Unavailable MOUKARBEL, DR XIE Attending Unavailable HOY, DR SAAVEDRA Primary Care Unavailable DEVILS TOWER, DR NOLVIA Devlin Consulting Unavailable MOUKARBEL, DR XIE Consulting Unavailable MOUKARBEL, DR XIE Admitting Unavailable MOUKARBEL, DR XIE Attending Unavailable JUAN CARLOS, DR SAAVEDRA Primary Care Unavailable Quentin Rangel Primary Care Physician Quentin Rangel Referring Unavailable Ronald CHOWDARY Attending Unavailable NILLRonald Attending Unavailable NILRonald Dillon Attending Unavailable CARRIISSAC DELGADO Referring Unavailable ISSAC SEXTON Attending Unavailable MOUKARBELANNE-MARIE Attending Unavailable MOUKARBELANNE-MARIE Attending Unavailable Unavailable Primary Care Provider UnavailAUDREY Lopez Attending Unavailable AUDREY RAMIREZ Attending Unavailable AUDREY RAMIREZ Attending Unavailable AUDREY RAMIREZ Attending Unavailable AUDREY RAMIREZ Attending Unavailable Quentin Rangel MD Primary Care Provider PATRIA COLE Attending Unavailable QUENTIN RANGEL Referring Unavailable QUENTIN RANGEL Primary Care Unavailable Allergies Allergy Classification Reported Allergen(s) Allergy Type Date of Onset Reaction(s) Facility (2 sources) No Known Medication Allergies; Translations: [No Known Medication Allergies] Propensity to adverse reactions to drug (disorder) [facility] Repository (2 sources) Morphine; Translations: [MORPHINE] Drug Allergy 02-14-20 Other (See Comments), Abnormal Behavior, Hallucinations [facility] Medications Current Medications Medication Drug Class(es) Dates Sig (Normalized) Sig (Original) allopurinol 300 mg oral tablet (2 sources) Xanthine Oxidase Inhibitor Start: 09-13-2017 take 1 tablet by mouth once daily allopurinol 300 mg Tab 300 mg = 1 tab(s), Oral, Daily, Refills(s) 0 Start Date: 12/17/22 Status: Ordered atorvastatin 40 mg oral tablet (2 sources) HMG-CoA Reductase Inhibitor Start: 12-11-2018 take 1 tablet by mouth once daily atorvastatin 40 mg Tab 40 mg = 1 tab(s), Oral, Daily, Refills(s) 0 Start Date: 12/17/22 Status: Ordered 24 hr buPROPion hydrochloride 150 mg extended release oral tablet (3 sources) Aminoketone Start: 12-17-2022 take 1 tablet by mouth every twenty-four hours Wellbutrin XL 150 mg/24 hours Tab-ER 150 mg = 1 tab(s), Oral, q24hr, Refills(s) 0 Start Date: 12/17/22 Status: Ordered take 1 tablet by renetta th every twenty-four hours in the morning buPROPion XL (WELLBUTRIN XL) 300 mg 24 h r tablet Take 1 tablet (300 mg total) by mouth in the morning. 0 Active carvedilol 25 mg oral tablet (2 sources) alpha-Adrenergic Jeannette, beta-Adrenergic Jeannette Start: 12-17-2022 take 1 tablet by mouth twice daily carvedilol 25 mg Tab 25 mg = 1 tab(s), Oral, BID, Refills(s) 0 Start Date: 12/17/22 Status: Ordered cefdinir 300 mg oral capsule (1 source) Cephalosporin Antibacterial take 2 capsules by mouth in the morning cefDINIR (OMNICEF) 300 mg capsule Take 2 capsules (600 mg total) by mouth in the morning. 0 Active cholecalciferol 0.125 mg oral tablet (1 source) Vitamin D take 1 tablet by mouth in the morning cholecalciferol , vitamin D3, 5,000 units tablet Take 1 tablet (5,000 Units total) by mouth in the morning. 0 Active colchicine 0.6 mg oral tablet (2 sources) Start: 12-17-2022 take 1 tablet by mouth once daily colchicine 0.6 mg Tab 0.6 mg = 1 tab(s), Oral, Daily, Refills(s) 0 Start Date: 12/17/22 Status: Ordered Start: 06-14-2017 take 2 tablets by [facility] once daily colchicine (COLCRYS) 0.6 mg tablet Take 2 tablets (1.2 mg total) by mouth nightly. 11 06/14/2017 Active DAILY VITES/IRON tablet (1 source) Start: 08-30-2017 take 1 tablet by mouth once daily in the morning DAILY VITES/IRON tablet Take 1 tablet by mouth in the morning. 0 08/30/2017 Active empagliflozin 10 mg oral tablet (2 sources) Sodium-Glucose Cotransporter 2 Inhibitor Start: 12-17-2022 take 1 tablet by mouth once daily in the morning Jardiance 10 mg oral tablet 10 mg = 1 tab(s), Oral, qAM, Refills(s) 0 Start Date: 12/17/22 Status: Ordered 14 actuat fluticasone furoate 0.1 mg/actuat / vilanterol 0.025 mg/actuat dry powder inhaler (1 source) Corticosteroid, beta2-Adrenergic Agonist take 1 puff(s) by inhalation in the morning fluticasone furoate-vilanter oL (BREO ELLIPTA) 100-25 mcg/dose blister with device Inhale 1 puff in the morning. 0 Active furosemide 40 mg oral tablet (3 sources) Loop Diuretic Start: 12-17-2022 take 1 tablet by mouth once daily Lasix 40 mg Tab 40 mg = 1 tab(s), Oral, Daily, Refills(s) 0 Start Date: 12/17/22 Status: Ordered take 1 tablet by mouth once rip y furosemide (LASIX) 20 mg tablet Take 1 tablet (20 mg total) by mouth daily. 0 Active hydrALAZINE hydrochloride 100 mg oral tablet (2 sources) Arteriolar Vasodilator Start: 12-17-2022 take 1 tablet by mouth twice daily hydrALAZINE 100 mg oral tablet 100 mg = 1 tab(s), Oral, BID, Refills(s) 0 Start Date: 12/17/22 Status: Ordered 24 hr isosorbide mononitrate 120 mg extended release oral tablet (2 sources) Nitrate Vasodilator Start: 12-11-2018 take 1 tablet by mouth once daily in the morning isosorbide mononitrate 120 mg ER Tab 120 mg = 1 tab(s), Oral, qAM, Refills(s) 0 Start Date: 12/17/22 Status: Ordered meloxicam 15 mg oral tablet (1 source) Nonsteroidal Anti-inflammatory Drug Start: 02-22-2022 take 1 tablet by mouth once daily meloxicam (MOBIC) 15 mg tablet TAKE 1 TABLET BY MOUTH EVERY DAY 30 tablet 1 02/22/2022 Active multivitamin with iron (1 source) Start: 12-17-2022 take 1 tablet by mouth once daily multivitamin with iron 1 tab(s), Oral, Daily, Refill(s) 0 Start Date: 12/17/22 Status: Ordered pantoprazole 40 mg delayed release oral tablet (2 sources) Proton Pump Inhibitor Start: 11-29-2017 take 1 tablet by mouth once daily Pantoprazole [address] Tab 40 mg = 1 tab(s), Oral, Daily, Refills(s) 0 Start Date: 12/17/22 Status: Ordered rivaroxaban 10 mg oral tablet (1 source) Factor Xa Inhibitor Start: 01-13-2020 take 1 tablet by mouth once daily rivaroxaban (XARELTO) 10 mg tablet Take 1 tablet (10 mg total) by mouth daily. 30 tablet 0 01/13/2020 Active spironolactone 25 mg oral tablet (2 sources) Aldosterone Antagonist Start: 12-17-2022 take 1 tablet by mouth once daily spironolactone 25 mg Tab 25 mg = 1 tab(s), Oral, Daily, Refills(s) 0 Start Date: 12/17/22 Status: Ordered Problems Active Problems Problem Classification Problem Date Documented Date Episodic/Chronic Anxiety disorders (2 sources) Mixed anxiety and depressive disorder; Translations: [Anxiety disorder, unspecified] Onset: 02-12-2019 12-17-2022 Chronic Aortic; peripheral; and visceral artery aneurysms (8 sources) Thoracic aortic ectasia; Translations: [Aneurysm of ascending aorta] Onset: 05-04-2022 Chronic Cardiac dysrhythmias (2 sources) Paroxysmal atrial fibrillation; Translations: [Paroxysmal atrial fibrillation] Onset: 02-12-2019 12-17-2022 Chronic Congestive heart failure; nonhypertensive (9 sources) Chronic systolic (congestive) heart failure; Translations: [Congestive heart failure] Onset: 02-12-2019 Chronic Coronary atherosclerosis and other heart disease (2 sources) Atherosclerotic heart disease of [place] coronary artery without angina pectoris; Translations: [Atherosclerotic heart disease of [place] coronary artery without angina pectoris] Onset: 12-05-2021 Chronic Deficiency and other anemia (2 sources) Anemia of chronic disease; Translations: [Anemia in other chronic diseases classified elsewhere] Onset: 02-12-2019 12-17-2022 Chronic Disorders of lipid metabolism (2 sources) Mixed hyperlipidemia; Translations: [Mixed hyperlipidemia] Onset: 02-12-2019 12-17-2022 Chronic Diverticulosis and diverticulitis (1 source) Diverticular disease 12-17-2022 Chronic Essential hypertension (4 sources) Essential hypertension; Translations: [Essential (primary) hypertension] Onset: 02-12-2019 12-17-2022 Chronic Gout and other crystal arthropathies (1 source) Gout 12-17-2022 Chronic Hyperplasia of prostate (2 sources) Benign prostatic hyperplasia; Translations: [Nocturia due to benign prostatic hypertrophy] Onset: 02-12-2019 12-17-2022 Chronic Hypertension with complications and secondary hypertension (2 sources) Cardiomyopathy due to hypertension; Translations: [Hypertensive heart disease with heart failure] Onset: 02-12-2019 12-17-2022 Chronic Neoplasms of unspecified nature or uncertain behavior (2 sources) Neoplasm of skin of cheek; Translations: [Neoplasm of uncertain behavior of skin of face] 01-05-2023 Episodic Osteoarthritis (1 source) Osteoarthritis of left hip joint; Translations: [Unilateral primary osteoarthritis, left hip] Onset: 02-11-2019 02-12-2019 Chronic Other and ill-defined heart disease (1 source) Diastolic dysfunction; Translations: [Other ill-defined heart diseases] Onset: 02-12-2019 02-12-2019 Chronic Other bone disease and musculoskeletal deformities (2 sources) Avascular necrosis of bone of hip; 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] Onset: 06-01-2019 12-17-2022 Chronic Other connective tissue disease (1 source) History of total replacement of left hip joint; Translations: [Presence of left artificial hip joint] Onset: 06-01-2019 06-01-2019 Chronic Other non-epithelial cancer of skin (2 [...] Translations: [Obesity, unspecified] Onset: 06-08-2022 Chronic Other nutritional; endocrine; and metabolic disorders (1 source) Severe obesity; Translations: [Morbid (severe) obesity due to excess calories] Onset: 10-30-2019 10-30-2019 Chronic Other skin disorders (1 source) Actinic keratosis; Translations: [Actinic keratosis] Onset: 01-05-2023 Episodic Residual codes; unclassified (2 sources) Obstructive sleep apnea syndrome; Translations: [Obstructive sleep apnea (adult) (pediatric)] Onset: 02-12-2019 12-17-2022 Chronic Residual codes; unclassified (2 sources) Localized edema; Translations: [Localized edema] Onset: 04-14-2023 Episodic Spondylosis; intervertebral disc disorders; other back problems (1 source) Lumbar radiculopathy 12-17-2022 Episodic Substance-related disorders (4 sources) Nicotine dependence; Translations: [Nicotine dependence, unspecified, uncomplicated] Onset: 02-12-2019 12-17-2022 Chronic Unclassified (1 source) Aneurysm of the ascending aorta, without rupture; Translations: [Aneurysm of the ascending aorta, without rupture] Onset: 04-14-2023 Unclassified (1 source) Infrarenal abdominal aortic aneurysm, without rupture; Translations: [Infrarenal abdominal aortic aneurysm, without rupture] Onset: 07-07-2023 Unclassified (1 source) New Patient Onset: 07-07-2023 Past or Other Problems Problem Classification Problem Date Documented Da te Episodic/Chronic Mood disorders (1 source) Mood disorders Onset: 01-11-2020 01-11-2020 Open wounds of extremities (1 source) Multiple open wounds of lower leg; Translations: [Unspecified open wound, unspecified lower leg, initial encounter] Onset: 10-30-2019 10-30-2019 Episodic Other lower respiratory disease (2 sources) Shortness of breath; Translations: [Shortness of breath] Onset: 05-03-2022 Episodic Paralysis (3 sources) Transient paralysis; Translations: [TRANSIENT PARALYSIS] Onset: 04-23-2022 Episodic Phlebitis; thrombophlebitis and thromboembolism (2 sources) H/O: Deep vein thrombosis; Translations: [Personal history of other venous thrombosis and embolism] Onset: 02-12-2019 12-17-2022 Episodic Residual codes; unclassified (1 source) Behavior showing reduced motor activity; Translations: [Other general symptoms and signs] Onset: 02-12-2019 02-12-2019 Episodic Residual codes; unclassified (1 source) Tobacco user; Translations: [Tobacco use] Onset: 06-01-2019 06-01-2019 Episodic Unclassified (1 source) Aneurysm of the ascending aorta, without rupture; Translations: [Aneurysm of the ascending aorta, without rupture] Onset: 04-14-2023 Results Test Name Value Interpretation Reference Range Facility Office Visiton 04-14-2023 Follow-up visit [id number] Last Patel 1950 M Date Provider Department Center 04/14/2023 ForeignANNE-MARIE BAKER [facility] Hos Family History Problem Relation Age of Onset Heart failure Mother Heart failure Father Family Status - Relation Status Age at Mother Father Level of Service:94317 MO OFFICE/OUTPATIENT ESTABLISHED MOD MDM 30 MIN Normal [facility] [place] Ambulatory Visit Summaryon 1 Ambulatory Visit Summary ADEN PATEL :1950 Visit Date:01/05/2023 Ambulatory Visit Instructions Your Diagnosis 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 [facility] Comment on above: Result Comment: Elec tronically Signed By: EPI MENENDEZ, Ronald Cuevas\.br\Date and Time Signed: 01/05/23 13:10 EDT Pathology Noteon 01-05-2023 Pathology Note [id number]#1.00TIFF [facility] Operative Reporton Operative Report [id number]#1.00TIFF [facility] Consent for Procedure/Surger yon 12-22-2022 Consent for Procedure/Surgery [id number]#[id number]:127 [facility] Ambulatory Visit Summaryon 0 12-21-2022 Ambulatory Visit [...] sleep apnea syndrome Paroxysmal atrial fibrillation Normal [facility] Facesheeton 12-21-2022 Facesheet [id number]#[id number]:127 Normal [facility] Physician Referralon 023 Physician Referral [id number]#[id number]:127 Normal [facility] Physician Referralon 023 Physician Referral [id number]#[id number]:127 Normal [facility] Office Visiton 06-08-2022 Follow-up visit [id number] Last Patel 1950 M Date Provider Department Center 06/08/2022 ISSAC DICKSON [facility] Family History Problem Relation Age of Onset Heart failure Mother Heart failure Father Family Status - Relation Status Age at Mother Father Level of Service:35551 MO OFFICE/OP CONSLTJ NEW/EST PT HIGH MDM 55 MINUTES Reason for Visit and Comments: New Patient [632] Normal [facility] [place] CT CHEST W CONon 05-04-2022 CT CHEST [...] by: AUDREY BRIDGES Date: 2022-05-04 13:59 Normal [facility] Follow-Upon 05-03-2022 Follow-Up [id number] Last Patel 1950 M Date Provider Department Center 05/03/2022 ANNE-MARIE BHATIA [facility] Hos Family History Problem Relation Age of Onset Heart failure Mother Heart failure Father Family Status - Relation Status Age at Mother Father Level of Service:36820 MO OFFICE/OUTPATIENT ESTABLISHED MOD MDM 30-39 MIN Reason for Visit and Comments: Congestive Heart Failure [127] Coronary Artery Disease [187] Hypertension [103821] Normal [facility] US CAROTID ART BILon 023 US CAROTID ART MACHELLE EXAMINATION: US [...] NOLVIA CANTU Date: 2022-04-20 07:19 Normal [facility] CBC AUTO DIFFon 04-19-2022 BASO # 0.0 103/ul Normal 0.0-0.1 [facility] Comment on above: Performed By: #### C BC #### [facility] [address] [address] [address] Femi Macias Basophils/100 WBC (Bld) 0.6 % Normal 0.2-2.0 [facility] Comment on above: Performed By: #### C BC #### [facility] [address] [place] [address] Dr. Femi Macias EO # 0.2 103/ul Normal 0.0-0.7 [facility] Comment on above: Performed By: #### C BC #### [facility] [address] [place] [address] Dr. Femi Macias Eosinophils/100 WBC (Bld) 2.7 % Normal 0.9-7.0 [facility] Comment on above: Performed By: #### C BC #### [facility] [address] [place] [address] Dr. Femi Macias Erythrocyte distribution width (RBC) [Ratio] 14.4 % Normal 11.0-15.0 [facility] Comment on above: Performed By: #### C BC #### [facility] [address] [place] [address] Dr. Femi Macias Hematocrit (Bld) [Volume fraction] 38.8 % Critically low 42.0-54.0 [facility] Comment on above: Performed By: #### C BC #### [facility] [address] [place] [address] Dr. Femi Macias Hemoglobin (Bld) [Mass/Vol] 13.8 g/dL Critically low 14.0-18.0 [facility] Comment on above: Performed By: #### C BC #### [facility] [address] [place] [address] Dr. Femi Macias IG # 0.02 10e3/ul Normal 0.00-0.03 [facility] Comment on above: Performed By: #### C BC #### [facility] [address] [place] [address] Dr. Femi Macias IG % 0.3 % Normal 0.0-0.5 [facility] Comment on above: Performed By: #### C BC #### [facility] [address] [place] [address] Dr. Femi Macias LYMPH # 1.3 103/ul Normal 1.2-3.8 [facility] Comment on above: Performed By: #### C BC #### [facility] [address] [place] [address] Dr. Femi Macias Lymphocytes/100 WBC (Bld) 18.2 % Critically low 20.5-60.0 [facility] Comment on above: Performed By: #### C BC #### [facility] [address] [place] [address] Dr. Femi Macias MANUAL DIFF REQ NO Normal [facility] Comment on above: Performed By: #### C BC #### [facility] [address] [place] [address] Dr. Femi Macias MCH (RBC) [Entitic mass] 31.8 pg Normal 25.9-34.0 [facility] Comment on above: Performed By: #### C BC #### [facility] [address] [place] [address] Dr. Femi Macias MCHC (RBC) [Mass/Vol] 35.6 g/dL Critically high 29.9-35.2 [facility] Comment on above: Performed By: #### C BC #### [facility] [address] [place] [address] Dr. Femi Macias MCV (RBC) [Entitic vol] 89.4 fL Normal 80.0-94.0 [facility] Comment on above: Performed By: #### C BC #### [facility] [address] [place] [address] Dr. Femi Macias MONO # 1.0 103/ul Critically high 0.3-0.8 [facility] Comment on above: Performed By: #### C BC #### [facility] [address] [place] [address] Dr. Femi Macias Monocytes/100 WBC (Bld) 14.1 % Critically high 1.7-12.0 [facility] Comment on above: Performed By: #### C BC #### [facility] [address] [place] [address] Dr. Femi Macias NEUT # 4.5 103/ul Normal 1.4-6.5 [facility] Comment on above: Performed By: #### C BC #### [facility] [address] [place] [address] Dr. Femi Macias Neutrophils/100 WBC (Bld) 64.1 % Normal 43.0-75.0 [facility] Comment on above: Performed By: #### C BC #### [facility] [address] [place] [address] Dr. Femi Macias Platelet mean volume (Bld) [Entitic vol] 10.4 fL Normal 9.5-13.5 [facility] Comment on above: Performed By: #### C BC #### [facility] [address] [place] [address] Dr. Femi Macias PLT 167 103/ul Normal 150-450 [facility] Comment on above: Performed By: #### C BC #### [facility] [address] [place] [address] Dr. Femi Macias RBC 4.34 106/ul Critically low 4.70-6.10 [facility] Comment on above: Performed By: #### C BC #### [facility] [address] [place] [address] Dr. Femi Macias WBC 7.0 103/ul Normal 4.0-11.0 [facility] Comment on above: Performed By: #### C BC #### [facility] [address] [place] [address] Dr. Femi Macias ECHOCARDIO M/2D COMPLETEon 0 04-19-2022 ECHOCARDIO M/2D COMPLETE Patient: ADEN PATELYumiko Exam Date: 04/19/2022 : 1950 Gender:M Ordering : DR ANNE-MARIE BAKER M.D. Admission #: [id number] Family : Order #: [id number] CLICK HERE TO VIEW EXAM ECHOCARDIOGRAM REPORT [...] M.D. on 04/21/2022 at 15:37 Normal [facility] PROF CHEM 8 (BAS METB)on Anion gap [Moles/Vol] 13.1 mmol/L Normal [facility] Comment on above: Performed By: #### B MP #### [facility] [address] [place] [address] Dr. Femi Macias Calcium [Mass/Vol] 8.7 mg/dL Normal 8.5-10.1 [facility] Comment on above: Performed By: #### B MP #### [facility] [address] [address] [address] Femi Macias Chloride [Moles/Vol] 100 mmol/L Normal 98-107 [facility] Comment on above: Performed By: #### B MP #### [facility] [address] [address] [address] Femi Macias CO2 [Moles/Vol] 26.6 mmol/L Normal 21.0-32.0 [facility] Comment on above: Performed By: #### B MP #### [facility] [address] [address] [address] Femi Macias Creatinine [Mass/Vol] 1.08 mg/dL Normal 0.70-1.30 [facility] Comment on above: Performed By: #### B MP #### [facility] [address] [address] [address] Femi Macias EGFR-AF GUINEAN >60 Normal >=60 [facility] Comment on above: Performed By: #### B MP #### [facility] [address] [address] [address] Femi Macias EGFR-NON AF GUINEAN >60 Normal >=60 [facility] Comment on above: Performed By: #### B MP #### [facility] [address] [place] [address] Dr. Femi Macias Glucose [Mass/Vol] 123 mg/dL Critically high 74-106 [facility] Comment on above: Performed By: #### B MP #### [facility] [address] [place] [address] Dr. Femi Macias Potassium [Moles/Vol] 3.7 mmol/L Normal 3.5-5.1 [facility] Comment on above: Performed By: #### B MP #### [facility] [address] [place] [address] Dr. Femi Macias Sodium [Moles/Vol] 136 mmol/L Normal 136-145 [facility] Comment on above: Performed By: #### B MP #### [facility] [address] [place] [address] Dr. Femi Macias Urea nitrogen [Mass/Vol] 15.0 mg/dL Normal 7.0-18.0 [facility] Comment on above: Performed By: #### B MP #### [facility] [address] [place] [address] Dr. Femi Macias Urea nitrogen/Creatini ne [Mass ratio] 13.9 mg/mg Normal [facility] Comment on above: Performed By: #### B MP #### [facility] [address] [place] [address] Dr. Femi Macias PROF CHEM 8 (BAS METB)on Anion gap [Moles/Vol] 15.4 mmol/L Normal [facility] Comment on above: Performed By: #### B MP #### [facility] [address] [address] [address] Femi Macias Calcium [Mass/Vol] 9.2 mg/dL Normal 8.4-10.2 [facility] Comment on above: Performed By: #### B MP #### [facility] [address] [address] [address] Femi Macias Chloride [Moles/Vol] 99 mmol/L Normal 98-107 [facility] Comment on above: Performed By: #### B MP #### [facility] [address] [place] [address] Dr. Femi Macias CO2 [Moles/Vol] 25.8 mmol/L Normal 22.0-30.0 [facility] Comment on above: Performed By: #### B MP #### [facility] [address] [place] [address] Dr. Femi Macias Creatinine [Mass/Vol] 1.40 mg/dL Critically high 0.66-1.25 [facility] Comment on above: Performed By: #### B MP #### [facility] [address] [place] [address] Dr. Femi Macias EGFR-AF GUINEAN >60 Normal >=60 [facility] Comment on above: Performed By: #### B MP #### [facility] [address] [address] [address] Femi Macias EGFR-NON AF GUINEAN 50 mL/min/1.73m2 Critically low >=60 [facility] Comment on above: Performed By: #### B MP #### [facility] [address] [address] [address] Femi Macias Glucose [Mass/Vol] 179 mg/dL Critically high 74-106 [facility] Comment on above: Performed By: #### B MP #### [facility] [address] [place] [address] Dr. Femi Macias Potassium [Moles/Vol] 4.2 mmol/L Normal 3.4-5.0 [facility] Comment on above: Performed By: #### B MP #### [facility] [address] [place], [place] [address] Dr. Femi Macias Sodium [Moles/Vol] 136 mmol/L Critically low 137-145 [facility] Comment on above: Performed By: #### B MP #### [facility] [address] [place], [place] [address] Dr. Femi Macias Urea nitrogen [Mass/Vol] 33.0 mg/dL Critically high 9.0-20.0 [facility] Comment on above: Performed By: #### B MP #### [facility] [address] [place], [place] [address] Dr. Femi Macias Urea nitrogen/Creatini ne [Mass ratio] 23.6 mg/mg Normal [facility] Comment on above: Performed By: #### B MP #### [facility] [address] [place], [place] [address] Dr. Femi Macias Cardiovascular Lab Reporton 12-12-2018 Cardiovascular Lab Report [facility] [id number] Physician: Gabrielle Quezada, Department of M.D. Medicine Service Date: 12/11/2018 Division of Birthdate: 1950 Cardiology Room #: [facility] [address] [address] Cardiovascular Laboratory Report CLINICAL PRESENTATION: The patient [...] echocardiogram. He was evaluated by Dr. Fountain, [facility] and referred for coronary angiogram. FINAL [...] failure or arrhythmias. 6. Outpatient followup with [facility] and at [facility]. PROCEDURES: Coronary angiogram. INDICATION: Acute systolic congestive [...] infiltrated over the right radial artery. A 6-[place] Terumo Glidesheath slender was placed in right radial artery. Nitroglycerin 200 mcg was administered through the sheath to prevent spasm. All catheter exchanges were made over the [employer] Torque guidewire. A Wedgefield catheter was engaged to right coronary artery. [...] Quezada M.D. Date Trans: 12/12/2018 07:52 A/joo [id number] cc: Quentin Rangel M.D. [address] [address] [facility] [address] Dionisio Fountain M.D. [facility] [address] Normal [facility] CBCon 05-01-2018 Erythrocyte distribution width (RBC) [Ratio] 13.9 % Normal 11.5 - 14.5 [facility] Comment on above: Performed By: #### C BC ####[id number] [place] [address] Hematocrit (Bld) [Volume fraction] 25.8 % Low 41.0 - 52.0 [facility] Comment on above: Performed By: #### C BC ####[id number] [place] [address] Hemoglobin (Bld) [Mass/Vol] 8.4 g/dL Low 13.5 - 17.5 [facility] Comment on above: Performed By: #### C BC ####[id number] [place] [address] MCHC (RBC) [Mass/Vol] 32.6 g/dL Normal 32.0 - 36.0 [facility] Comment on above: Performed By: #### C BC ####[id number] [place] [address] MCV (RBC) [Entitic vol] 90 fL Normal 80 - 100 [facility] Comment on above: Performed By: #### C BC ####[id number] [place] [address] Nucleated RBC/100 WBC (Bld) [Ratio] 0.0 /100 WBC Normal 0.0-0.0 [facility] Comment on above: Performed By: #### C BC ####[id number] [place] [address] Platelets (Bld) [#/Vol] 421 10*3/uL Normal 150 - 450 [facility] Comment on above: Performed By: #### C BC ####[id number] [place] [address] RBC (Bld) [#/Vol] 2.86 x10E12/L Low 4.50 - 5.90 [facility] Comment on above: Performed By: #### C BC ####[id number] [place] [address] WBC (Bld) [#/Vol] 10.1 10*3/uL Normal 4.4 - 11.3 [facility] Comment on above: Performed By: #### C BC ####[id number] [place] [address] GLUCOSE-POCTon 05-01-2018 Glucose [Mass/Vol] 117 mg/dL High 74 - 99 [facility] Comment on above: Performed By: #### G VAISHALI ####[id number] [place] [address] Nutrition Therapy-Calorie Co unton 05-01-2018 Nutrition Therapy-Calorie Count Assessment Subjective/Objective: Note Type: Calorie Count Note Authored by: Registered Dietitian Mortician Investigator Pager Number: [phone] Nutrition Note: The patient is a 67 year old Male who is Hospital Day # 18 and POD #6 for exploratory laparotomy, small bowel resection and anastomosis, vicryl mesh closure. Calorie count results --> Diet: Soft --> Nutrient needs: 1999kcal/d; 115g pro/d Day 1 04/28/18: 942 kcal, [...] Provided for: diet Coordination of Care with: LIDIA trent NUTRITION RECOMMENDATIONS: Recommendations: 1. Continue soft diet + oral nutrition supplement BID Nutrition Therapy Recommendations: Nutrition Therapy Recommendations: Please see RDN note 2/ Diet Education: Nutrition Education: Family with many [...] 10:39 by Helen Mclean (HERRERA, RITA) Normal [facility] PT/INRon 05-01-2018 INR Coag (PPP) [Relative time] 1.1 {INR} Normal 0.9 - 1.1 [facility] Comment on above: Performed By: #### P TINR ####[id number] [place] [address] PT Coag (PPP) [Time] 12.7 s Normal 9.7 - 12.7 [facility] Comment on above: Performed By: #### P TINR ####[id number] [place] [address] RENAL FUNCTION PANELon 05-01 Albumin [Mass/Vol] 2.5 g/dL Low 3.4 - 5.0 [facility] Comment on above: Performed By: #### R ENAL ####[id number] [place] [address] Anion gap [Moles/Vol] 13 mmol/L Normal 10 - 20 [facility] Comment on above: Performed By: #### R ENAL ####[id number] [place] [address] Calcium [Mass/Vol] 7.9 mg/dL Low 8.6 - 10.6 [facility] Comment on above: Performed By: #### R ENAL ####[id number] [place] [address] Chloride [Moles/Vol] 102 mmol/L Normal 98 - 107 [facility] Comment on above: Performed By: #### R ENAL ####[id number] [place] [address] Creatinine [Mass/Vol] 0.68 mg/dL Normal 0.50 - 1.30 [facility] Comment on above: Performed By: #### R ENAL ####[id number] [place] [address] GFR- AM. >60 Normal >60 [facility] Comment on above: Result Comment: CALC ULATIONS OF ESTIMATED GFR ARE PERFORMED USING THE MDRD STUDY EQUATION FOR THE IDMS-TRACEABLE CREATININE METHODS. CLIN CHEM 2007;53:766-72 Performed By: #### R ENAL ####[id number] [place] [address] GFR-NON AM. >60 Normal >60 [facility] Comment on above: Performed By: #### R ENAL ####[id number] [place] [address] Glucose [Mass/Vol] 96 mg/dL Normal 74 - 99 [facility] Comment on above: Performed By: #### R ENAL ####[id number] [place] [address] HCO3 (Bld) [Moles/Vol] 26 mmol/L Normal 21 - 32 [facility] Comment on above: Performed By: #### R ENAL ####[id number] [place] [address] Phosphate [Mass/Vol] 2.7 mg/dL Normal 2.5 - 4.9 [facility] Comment on above: Result Comment: The performance characteristics of phosphorus testing in heparinized plasma have been validated by the individual laboratory site where testing is performed. Testing on heparinized plasma is not approved by the FDA; however, such approval is not necessary. Performed By: #### R ENAL ####[id number] [place] [address] Potassium [Moles/Vol] 3.3 mmol/L Low 3.5 - 5.3 [facility] Comment on above: Performed By: #### R ENAL ####[id number] [place] [address] Sodium [Moles/Vol] 138 mmol/L Normal 136 - 145 [facility] Comment on above: Performed By: #### R ENAL ####[id number] [place] [address] Urea nitrogen [Mass/Vol] 12 mg/dL Normal 6 - 23 [facility] Comment on above: Performed By: #### R ENAL ####[id number] [place] [address] CBCon 04-30-2018 Erythrocyte distribution width (RBC) [Ratio] 14.2 % Normal 11.5 - 14.5 [facility] Comment on above: Performed By: #### C BC ####[id number] [place] [address] Hematocrit (Bld) [Volume fraction] 26.6 % Low 41.0 - 52.0 [facility] Comment on above: Performed By: #### C BC ####[id number] [place] [address] Hemoglobin (Bld) [Mass/Vol] 8.7 g/dL Low 13.5 - 17.5 [facility] Comment on above: Performed By: #### C BC ####[id number] [place] [address] MCHC (RBC) [Mass/Vol] 32.7 g/dL Normal 32.0 - 36.0 [facility] Comment on above: Performed By: #### C BC ####[id number] [place] [address] MCV (RBC) [Entitic vol] 91 fL Normal 80 - 100 [facility] Comment on above: Performed By: #### C BC ####[id number] [place] [address] Nucleated RBC/100 WBC (Bld) [Ratio] 0.1 /100 WBC Normal 0.0-0.0 [facility] Comment on above: Performed By: #### C BC ####[id number] [place] [address] Platelets (Bld) [#/Vol] 438 10*3/uL Normal 150 - 450 [facility] Comment on above: Performed By: #### C BC ####[id number] [place] [address] RBC (Bld) [#/Vol] 2.93 x10E12/L Low 4.50 - 5.90 [facility] Comment on above: Performed By: #### C BC ####[id number] [place] [address] WBC (Bld) [#/Vol] 10.2 10*3/uL Normal 4.4 - 11.3 [facility] Comment on above: Performed By: #### C BC ####[id number] [place] [address] Daily Progress Note-Colorect al Surgeryon 04-30-2018 Daily Progress Note-Colorectal Surgery Service: Colorectal Surgery Subjective Data: JORGEADEN is a 67 year old Male who is Hospital Day # 18 and POD #6 for exploratory laparotomy, small bowel resection and anastomosis, vicryl mesh closure. no acute events overnight, tolerated diet, no N/V, having bowel function. Objective Data: Objective Information: ---- Intake and Output ----- Mn/Dy/Year TimeIntakeOutputNet Apr 30, 2018 6:00 [id number] Apr 29, 2018 10:00 pm012.5-13 Apr 29, 2018 2:00 [id number] The Intake and Output Totals for the last 24 hours are: IntakeOutputNet [id number] T PRBPSpO2 Value36.91988030/8399% Date/Time04/30 8: 8: 8: 8: 8:20 Range(36.3C [...] be discharged home tomorrow. López Blake MD [facility]: [id number] Signature/Cosignature/Attesta tion: Attending AttestationI reviewed the resident/fellows [...] Updated: 02-May-2018 09:53 by Nolvia Colmenares) Normal [facility] GLUCOSE-POCTon 04-30-2018 Glucose [Mass/Vol] 121 mg/dL High 74 - 99 [facility] Comment on above: Performed By: #### G VAISHALI ####[id number] [place] [address] Glucose [Mass/Vol] 139 mg/dL High 74 - 99 [facility] Comment on above: Performed By: #### G VAISHALI ####[id number] [place] [address] Glucose [Mass/Vol] 103 mg/dL High 74 - 99 [facility] Comment on above: Performed By: #### G VAISHALI ####[id number] [place] [address] Glucose [Mass/Vol] 113 mg/dL High 74 - 99 [facility] Comment on above: Performed By: #### G VAISHALI ####[id number] [place] [address] RENAL FUNCTION PANELon 04-30 Albumin [Mass/Vol] 2.5 g/dL Low 3.4 - 5.0 [facility] Comment on above: Performed By: #### R ENAL ####[id number] [place] [address] Anion gap [Moles/Vol] 14 mmol/L Normal 10 - 20 [facility] Comment on above: Performed By: #### R ENAL ####[id number] [place] [address] Calcium [Mass/Vol] 7.9 mg/dL Low 8.6 - 10.6 [facility] Comment on above: Performed By: #### R ENAL ####[id number] [place] [address] Chloride [Moles/Vol] 102 mmol/L Normal 98 - 107 [facility] Comment on above: Performed By: #### R ENAL ####[id number] [place] [address] Creatinine [Mass/Vol] 0.64 mg/dL Normal 0.50 - 1.30 [facility] Comment on above: Performed By: #### R ENAL ####[id number] [place] [address] GFR- AM. >60 Normal >60 [facility] Comment on above: Result Comment: CALC ULATIONS OF ESTIMATED GFR ARE PERFORMED USING THE MDRD STUDY EQUATION FOR THE IDMS-TRACEABLE CREATININE METHODS. CLIN CHEM 2007;53:766-72 Performed By: #### R ENAL ####[id number] [place] [address] GFR-NON AM. >60 Normal >60 [facility] Comment on above: Performed By: #### R ENAL ####[id number] [place] [address] Glucose [Mass/Vol] 91 mg/dL Normal 74 - 99 [facility] Comment on above: Performed By: #### R ENAL ####[id number] [place] [address] HCO3 (Bld) [Moles/Vol] 24 mmol/L Normal 21 - 32 [facility] Comment on above: Performed By: #### R ENAL ####[id number] [place] [address] Phosphate [Mass/Vol] 2.8 mg/dL Normal 2.5 - 4.9 [facility] Comment on above: Result Comment: The performance characteristics of phosphorus testing in heparinized plasma have been validated by the individual laboratory site where testing is performed. Testing on heparinized plasma is not approved by the FDA; however, such approval is not necessary. Performed By: #### R ENAL ####[id number] [place] [address] Potassium [Moles/Vol] 3.8 mmol/L Normal 3.5 - 5.3 [facility] Comment on above: Performed By: #### R ENAL ####[id number] [place] [address] Sodium [Moles/Vol] 136 mmol/L Normal 136 - 145 [facility] Comment on above: Performed By: #### R ENAL ####[id number] [place] [address] Urea nitrogen [Mass/Vol] 15 mg/dL Normal 6 - 23 [facility] Comment on above: Performed By: #### R ENAL ####[id number] [place] [address] CBC AND DIFFERENTIALon 04-29 % AUTOMATED IMMATURE GRAN 0.6 % Normal 0.0 - 0.9 [facility] Comment on above: Result Comment: Perc ent differential counts (%) should be interpreted in the context of the absolute cell counts (cells/L). Performed By: #### C BCDF ####[id number] [place] [address] Basophils (Bld) [#/Vol] 0.03 10*3/uL Normal 0.00 - 0.10 [facility] Comment on above: Performed By: #### C BCDF ####[id number] [place] [address] Basophils/100 WBC (Bld) 0.3 % Normal 0.0 - 2.0 [facility] Comment on above: Performed By: #### C BCDF ####[id number] [place] [address] Eosinophils (Bld) [#/Vol] 0.08 10*3/uL Normal 0.00 - 0.70 [facility] Comment on above: Performed By: #### C BCDF ####[id number] [place] [address] Eosinophils/100 WBC (Bld) 0.9 % Normal 0.0 - 6.0 [facility] Comment on above: Performed By: #### C BCDF ####[id number] [place] [address] Erythrocyte distribution width (RBC) [Ratio] 14.4 % Normal 11.5 - 14.5 [facility] Comment on above: Performed By: #### C BCDF ####[id number] [place] [address] Hematocrit (Bld) [Volume fraction] 26.0 % Low 41.0 - 52.0 [facility] Comment on above: Performed By: #### C BCDF ####[id number] [place] [address] Hemoglobin (Bld) [Mass/Vol] 8.6 g/dL Low 13.5 - 17.5 [facility] Comment on above: Performed By: #### C BCDF ####[id number] [place] [address] Lymphocytes (Bld) [#/Vol] 0.85 10*3/uL Low 1.20 - 4.80 [facility] Comment on above: Performed By: #### C BCDF ####[id number] [place] [address] Lymphocytes/100 WBC (Bld) 9.4 % Normal 13.0 - 44.0 [facility] Comment on above: Performed By: #### C BCDF ####[id number] [place] [address] MCHC (RBC) [Mass/Vol] 33.1 g/dL Normal 32.0 - 36.0 [facility] Comment on above: Performed By: #### C BCDF ####[id number] [place] [address] MCV (RBC) [Entitic vol] 91 fL Normal 80 - 100 [facility] Comment on above: Performed By: #### C BCDF ####[id number] [place] [address] Monocytes (Bld) [#/Vol] 1.03 10*3/uL High 0.10 - 1.00 [facility] Comment on above: Performed By: #### C BCDF ####[id number] [place] [address] Monocytes/100 WBC (Bld) 11.4 % Normal 2.0 - 10.0 [facility] Comment on above: Performed By: #### C BCDF ####[id number] [place] [address] Neutrophils (Bld) [#/Vol] 7.03 10*3/uL Normal 1.20 - 7.70 [facility] Comment on above: Performed By: #### C BCDF ####[id number] [place] [address] Neutrophils/100 WBC (Bld) 77.4 % Normal 40.0 - 80.0 [facility] Comment on above: Performed By: #### C BCDF ####[id number] [place] [address] Nucleated RBC/100 WBC (Bld) [Ratio] 0.0 /100 WBC Normal 0.0-0.0 [facility] Comment on above: Performed By: #### C BCDF ####[id number] [place] [address] Platelets (Bld) [#/Vol] 430 10*3/uL Normal 150 - 450 [facility] Comment on above: Performed By: #### C BCDF ####[id number] [place] [address] RBC (Bld) [#/Vol] 2.86 x10E12/L Low 4.50 - 5.90 [facility] Comment on above: Performed By: #### C BCDF ####[id number] [place] [address] WBC (Bld) [#/Vol] 9.1 10*3/uL Normal 4.4 - 11.3 [facility] Comment on above: Performed By: #### C BCDF ####[id number] [place] [address] Consult-Cardiologyon 019 Consult-Cardiolog y Service: Service: Cardiology [...] the EKGs on his chart (also on [place] EKG) with no evidence of AF (only [...] Family hx: HTN Rectal cancer in brother [place] in both parents Social: Current everyday smoker, [...] Known Allergies: Objective: Objective Information: T PRBPSpO2 Value36.04844219/63553% Date/Time04/29 18:::: 19:00 Range(36.3C - 37.2C ) [...] reviewed these laboratory results: Glucose_POCT Trending View [id number] 06:06:00 29-Apr-2018 01:18:00 Glucose-TESG483 H 148 H Complete Blood Count + [...] the EKGs on his chart (also on [place] EKG) with no evidence of AF (only [...] consultation and the opportunity to participate in Mr.Schaffer rapp. Will sign off Please call with questions. [...] above attestation) on 29-Apr-2018 Electronic Signatures: Cb Quinonez () (Signed 30-Apr-2018 11:09) Authored: Signature/Cosignature/Attesta tion Co-Signer: Service, History of Present Illness, Allergies, Objective, Assessment/Recommendations, Signature/Cosignature/Attesta tion Mani Fajardo (Fellow)) (Signed 29-Apr-2018 19:56) Authored: Service, History of Present Illness, Allergies, Objective, Assessment/Recommendations, Signature/Cosignature/Attesta tion Last Updated: 30-Apr-2018 11:09 by Cb Quinonez) Normal [facility] Daily Progress Note-Colorect al Surgeryon 04-29-2018 Daily [...] ----- Mn/Dy/Year TimeIntakeOutputNet Apr 29, 2018 6:00 [id number] Apr 28, 2018 10:00 [id number] Apr 28, 2018 2:00 [id number] The Intake and Output Totals for the last 24 hours are: IntakeOutputNet [id number] T PRBPSpO2 Value36.64294337/78425% Date/Time04/29 8: 8: 8:002 8:002 8:00 Range(36.6C - 36.9C ) (67 [...] - PT rec [facility] López Blake MD [facility]: [id number] Signature/Cosignature/Attesta tion: Attending AttestationI saw and evaluated [...] Data, Objective Data, Assessment and Plan, Signature/Cosignature/Attesta López baker Ma (Fellow)) (Signed 29-Apr-2018 10:57) Authored: Service, Subjective Data, Objective Data, Assessment and Plan, Signature/Cosignature/Attesta tion Last Updated: 29-Apr-2018 19:32 by Nolvia Colmenares) Normal [facility] GLUCOSE-POCTon 04-29-2018 Glucose [Mass/Vol] 140 mg/dL High 74 - 99 [facility] Comment on above: Performed By: #### G VAISHALI ####[id number] [place] [address] Glucose [Mass/Vol] 151 mg/dL High 74 - 99 [facility] Comment on above: Performed By: #### G VAISHALI ####[id number] [place] [address] Glucose [Mass/Vol] 178 mg/dL High 74 - 99 [facility] Comment on above: Performed By: #### G VAISHALI ####[id number] [place] [address] Glucose [Mass/Vol] 148 mg/dL High 74 - 99 [facility] Comment on above: Performed By: #### G VAISHALI ####[id number] [place] [address] Glucose [Mass/Vol] 152 mg/dL High 74 - 99 [facility] Comment on above: Performed By: #### G VAISHALI ####[id number] [place] [address] MAGNESIUMon 04-29-2018 Magnesium [Mass/Vol] 1.71 mg/dL Normal 1.60 - 2.40 [facility] Comment on above: Performed By: #### M G ####[id number] [place] [address] RENAL FUNCTION PANELon 04-29 Albumin [Mass/Vol] 2.4 g/dL Low 3.4 - 5.0 [facility] Comment on above: Performed By: #### R ENAL ####[id number] [place] [address] Anion gap [Moles/Vol] 11 mmol/L Normal 10 - 20 [facility] Comment on above: Performed By: #### R ENAL ####[id number] [place] [address] Calcium [Mass/Vol] 7.8 mg/dL Low 8.6 - 10.6 [facility] Comment on above: Performed By: #### R ENAL ####[id number] [place] [address] Chloride [Moles/Vol] 103 mmol/L Normal 98 - 107 [facility] Comment on above: Performed By: #### R ENAL ####[id number] [place] [address] Creatinine [Mass/Vol] 0.65 mg/dL Normal 0.50 - 1.30 [facility] Comment on above: Performed By: #### R ENAL ####[id number] [place] [address] GFR- AM. >60 Normal >60 [facility] Comment on above: Result Comment: CALC ULATIONS OF ESTIMATED GFR ARE PERFORMED USING THE MDRD STUDY EQUATION FOR THE IDMS-TRACEABLE CREATININE METHODS. CLIN CHEM 2007;53:766-72 Performed By: #### R ENAL ####[id number] [place] [address] GFR-NON AM. >60 Normal >60 [facility] Comment on above: Performed By: #### R ENAL ####[id number] [place] [address] Glucose [Mass/Vol] 170 mg/dL High 74 - 99 [facility] Comment on above: Performed By: #### R ENAL ####[id number] [place] [address] HCO3 (Bld) [Moles/Vol] 26 mmol/L Normal 21 - 32 [facility] Comment on above: Performed By: #### R ENAL ####[id number] [place] [address] Phosphate [Mass/Vol] 2.6 mg/dL Normal 2.5 - 4.9 [facility] Comment on above: Result Comment: The performance characteristics of phosphorus testing in heparinized plasma have been validated by the individual laboratory site where testing is performed. Testing on heparinized plasma is not approved by the FDA; however, such approval is not necessary. Performed By: #### R ENAL ####[id number] [place] [address] Potassium [Moles/Vol] 3.6 mmol/L Normal 3.5 - 5.3 [facility] Comment on above: Performed By: #### R ENAL ####[id number] [place] [address] Sodium [Moles/Vol] 136 mmol/L Normal 136 - 145 [facility] Comment on above: Performed By: #### R ENAL ####[id number] [place] [address] Urea nitrogen [Mass/Vol] 17 mg/dL Normal 6 - 23 [facility] Comment on above: Performed By: #### R ENAL ####[id number] [place] [address] BASIC METABOLIC PANELon 02-0 Anion gap [Moles/Vol] 12 mmol/L Normal 10 - 20 [facility] Comment on above: Performed By: #### B MP ####[id number] [place] [address] Calcium [Mass/Vol] 7.7 mg/dL Low 8.6 - 10.6 [facility] Comment on above: Performed By: #### B MP ####[id number] [place] [address] Chloride [Moles/Vol] 108 mmol/L High 98 - 107 [facility] Comment on above: Performed By: #### B MP ####[id number] [place] [address] Creatinine [Mass/Vol] 0.69 mg/dL Normal 0.50 - 1.30 [facility] Comment on above: Performed By: #### B MP ####[id number] [place] [address] GFR- AM. >60 Normal >60 [facility] Comment on above: Result Comment: CALC ULATIONS OF ESTIMATED GFR ARE PERFORMED USING THE MDRD STUDY EQUATION FOR THE IDMS-TRACEABLE CREATININE METHODS. CLIN CHEM 2007;53:766-72 Performed By: #### B MP ####[id number] [place] [address] GFR-NON AM. >60 Normal >60 [facility] Comment on above: Performed By: #### B MP ####[id number] [place] [address] Glucose [Mass/Vol] 128 mg/dL High 74 - 99 [facility] Comment on above: Performed By: #### B MP ####[id number] [place] [address] HCO3 (Bld) [Moles/Vol] 26 mmol/L Normal 21 - 32 [facility] Comment on above: Performed By: #### B MP ####[id number] [place] [address] Potassium [Moles/Vol] 3.7 mmol/L Normal 3.5 - 5.3 [facility] Comment on above: Performed By: #### B MP ####[id number] [place] [address] Sodium [Moles/Vol] 142 mmol/L Normal 136 - 145 [facility] Comment on above: Performed By: #### B MP ####[id number] [place] [address] Urea nitrogen [Mass/Vol] 16 mg/dL Normal 6 - 23 [facility] Comment on above: Performed By: #### B MP ####[id number] [place] [address] CBCon 04-28-2018 Erythrocyte distribution width (RBC) [Ratio] 14.4 % Normal 11.5 - 14.5 [facility] Comment on above: Performed By: #### C BC ####[id number] [place] [address] Hematocrit (Bld) [Volume fraction] 25.6 % Low 41.0 - 52.0 [facility] Comment on above: Performed By: #### C BC ####[id number] [place] [address] Hemoglobin (Bld) [Mass/Vol] 8.4 g/dL Low 13.5 - 17.5 [facility] Comment on above: Performed By: #### C BC ####[id number] [place] [address] MCHC (RBC) [Mass/Vol] 32.8 g/dL Normal 32.0 - 36.0 [facility] Comment on above: Performed By: #### C BC ####[id number] [place] [address] MCV (RBC) [Entitic vol] 91 fL Normal 80 - 100 [facility] Comment on above: Performed By: #### C BC ####[id number] [place] [address] Nucleated RBC/100 WBC (Bld) [Ratio] 0.0 /100 WBC Normal 0.0-0.0 [facility] Comment on above: Performed By: #### C BC ####[id number] [place] [address] Platelets (Bld) [#/Vol] 408 10*3/uL Normal 150 - 450 [facility] Comment on above: Performed By: #### C BC ####[id number] [place] [address] RBC (Bld) [#/Vol] 2.80 x10E12/L Low 4.50 - 5.90 [facility] Comment on above: Performed By: #### C BC ####[id number] [place] [address] WBC (Bld) [#/Vol] 9.9 10*3/uL Normal 4.4 - 11.3 [facility] Comment on above: Performed By: #### C BC ####[id number] [place] [address] Daily Progress Note-Colorect al Surgeryon 04-28-2018 Daily [...] Intake and Output ----- Mn/Dy/Year TimeIntakeOutputNet Apr 28, 2018 6:00 [id number] Apr 27, 2018 10:00 [id number] Apr 27, 2018 2:00 [id number] The Intake and Output Totals for the last 24 hours are: IntakeOutputNet [id number] T PRBPSpO2 Value36.40808757/8197% Date/Time04/28 11: 11: 11: 11: 11:23 Range(36.6C [...] attending physician, Dr. Sanjana Nieto MD PGY1 [facility] [facility]: [id number] Signature/Cosignature/Attesta tion: Attending AttestationI saw and evaluated [...] Last Updated: 29-Apr-2018 19:32 by Nolvia Colmenares) [facility] Discharge [id number] Discharge Profile2 Discharge Orders: Anticipated Discharge Date: Anticipated Discharge [id number] Anticipated Discharge Time12:28 Problem List: Admitting Dx: [...] have several episodes of asymptomatic bradycardia overnight 04/28-2/2 and was seen by cardiology. Cardiology recommended [...] Yousif, Nurse Practitioner for Dr Colmenares Scheduled Date/[id number] 13:30 [facility] [address], [address], [facility] [address] Phone [phone] Commentsfollow up after hospital discharge Electronic Signatures: Hannah Chow (CIGARETTE LIGHTER REPAIRER-[employer]) (Signed 28-Apr-2018 13:01) Authored: Discharge Orders, Appointments, Gold Form - Software Engineering Project Manager Summary Ezra Coburn ( (Resident)) (Signed 30-Apr-2018 09:37) Authored: Discharge Orders, Hospital Course (Home Care/Gold Form), Provider FINAL REVIEW of Orders Last Updated: 30-Apr-2018 09:37 by Ezra Coburn ( (Resident)) Normal [facility] GLUCOSE-POCTon 04-28-2018 Glucose [Mass/Vol] 161 mg/dL High 74 - 99 [facility] Comment on above: Performed By: #### G VAISHALI ####[id number] [place] [address] Glucose [Mass/Vol] 139 mg/dL High 74 - 99 [facility] Comment on above: Performed By: #### G VAISHALI ####[id number] [place] [address] Glucose [Mass/Vol] 170 mg/dL High 74 - 99 [facility] Comment on above: Performed By: #### G VAISHALI ####[id number] [place] [address] Glucose [Mass/Vol] 148 mg/dL High 74 - 99 [facility] Comment on above: Performed By: #### G VAISHALI ####[id number] [place] [address] Glucose [Mass/Vol] 165 mg/dL High 74 - 99 [facility] Comment on above: Performed By: #### G VAISHALI ####[id number] [place] [address] MAGNESIUMon 04-28-2018 Magnesium [Mass/Vol] 1.70 mg/dL Normal 1.60 - 2.40 [facility] Comment on above: Performed By: #### M G ####[id number] [place] [address] Nutrition Therapy-Follow Up - calorie counton 04-28-2018 Nutrition Therapy-Follow Up - calorie count Assessment Subjective/Objective: Note Type: Follow Up calorie count Note Authored by: Registered Dietitian Mortician Investigator Pager Number: [phone] Nutrition Note: The patient is a 67 year old Male who is Hospital Day # 15 and POD #3 for exploratory laparotomy, small bowel resection and anastomosis, vicryl mesh closure. Verbal consult from CRS ASSET PROTECTION AGENT to start calorie count. RDN hung folder on pt's door. Events reviewed: Pt started on Clinimix E / on 04/21 and advanced to continuous goal rate on 04/26. Transferred from ICU to [facility] on 04/26 and NGT removed. Pt started on CLD and diet advanced to soft this morning. Plan to run calorie count over the weekend to evaluate adequacy of PO intake and discontinue TPN. --> Diet: Soft + Impact AR --> Nutrient needs: 2000kcal/d; 115g pro/d Day 1 04/28/18: pt ate 100% grits and swazi muffin along with 50% of toast and omelet for breakfast this morning. Objective Information: Intake Output Enteral - Oral 360 mL Urine 800 mL IV Fluids 500 mL Drain 97.5 mL IV Nutrition 1081 mL BM: x1 04/28; x4 04/27 Recent Lab Results: Results: I have reviewed these laboratory results: Glucose_POCT Trending View [id number] 05:27:00 28-Apr-2018 01:24:00 Glucose-GSCJ676 H 165 H Basic Metabolic Panel 28-Apr-2018 [...] abd Edema: +1, generalized Estimated Needs: kcals/day: 4223-7916 gms protein/day: 115+ mL fluid/day: 4894-9046 or per MD Nutrition Diagnosis: Diagnosis1 ongoing. [...] Coordination of Care with: ID miley, CRS ASSET PROTECTION AGENT, RN Nutrition Goals: Goals: Nutrition Therapy: nutrition [...] Nutrition Therapy Recommendations: Please see RDN note 2/ Dietitian Monitoring and Evaluation Plan: Monitoring and [...] 10:31 by Helen Mclean (HERRERA, RITA) Normal [facility] BASIC METABOLIC PANELon - Anion gap [Moles/Vol] 12 mmol/L Normal 10 - 20 [facility] Comment on above: Performed By: #### B MP ####[id number] [place] [address] Calcium [Mass/Vol] 7.6 mg/dL Low 8.6 - 10.6 [facility] Comment on above: Performed By: #### B MP ####[id number] [place] [address] Chloride [Moles/Vol] 107 mmol/L Normal 98 - 107 [facility] Comment on above: Performed By: #### B MP ####[id number] [place] [address] Creatinine [Mass/Vol] 0.74 mg/dL Normal 0.50 - 1.30 [facility] Comment on above: Performed By: #### B MP ####[id number] [place] [address] GFR- AM. >60 Normal >60 [facility] Comment on above: Result Comment: CALC ULATIONS OF ESTIMATED GFR ARE PERFORMED USING THE MDRD STUDY EQUATION FOR THE IDMS-TRACEABLE CREATININE METHODS. CLIN CHEM 2007;53:766-72 Performed By: #### B MP ####[id number] [place] [address] GFR-NON AM. >60 Normal >60 [facility] Comment on above: Performed By: #### B MP ####[id number] [place] [address] Glucose [Mass/Vol] 157 mg/dL High 74 - 99 [facility] Comment on above: Performed By: #### B MP ####[id number] [place] [address] HCO3 (Bld) [Moles/Vol] 27 mmol/L Normal 21 - 32 [facility] Comment on above: Performed By: #### B MP ####[id number] [place] [address] Potassium [Moles/Vol] 3.4 mmol/L Low 3.5 - 5.3 [facility] Comment on above: Performed By: #### B MP ####[id number] [place] [address] Sodium [Moles/Vol] 143 mmol/L Normal 136 - 145 [facility] Comment on above: Performed By: #### B MP ####[id number] [place] [address] Urea nitrogen [Mass/Vol] 14 mg/dL Normal 6 - 23 [facility] Comment on above: Performed By: #### B MP ####[id number] [place] [address] CBCon 04-27-2018 Erythrocyte distribution width (RBC) [Ratio] 14.7 % High 11.5 - 14.5 [facility] Comment on above: Performed By: #### C BC ####[id number] [place] [address] Hematocrit (Bld) [Volume fraction] 26.2 % Low 41.0 - 52.0 [facility] Comment on above: Performed By: #### C BC ####[id number] [place] [address] Hemoglobin (Bld) [Mass/Vol] 8.8 g/dL Low 13.5 - 17.5 [facility] Comment on above: Performed By: #### C BC ####[id number] [place] [address] MCHC (RBC) [Mass/Vol] 33.6 g/dL Normal 32.0 - 36.0 [facility] Comment on above: Performed By: #### C BC ####[id number] [place] [address] MCV (RBC) [Entitic vol] 89 fL Normal 80 - 100 [facility] Comment on above: Performed By: #### C BC ####[id number] [place] [address] Nucleated RBC/100 WBC (Bld) [Ratio] 0.0 /100 WBC Normal 0.0-0.0 [facility] Comment on above: Performed By: #### C BC ####[id number] [place] [address] Platelets (Bld) [#/Vol] 407 10*3/uL Normal 150 - 450 [facility] Comment on above: Performed By: #### C BC ####[id number] [place] [address] RBC (Bld) [#/Vol] 2.96 x10E12/L Low 4.50 - 5.90 [facility] Comment on above: Performed By: #### C BC ####[id number] [place] [address] WBC (Bld) [#/Vol] 11.6 10*3/uL High 4.4 - 11.3 [facility] Comment on above: Performed By: #### C BC ####[id number] [place] [address] Daily Progress Note-Colorect al Surgeryon 04-27-2018 Daily [...] Information: ---- Intake and Output ----- Mn/Dy/Year TimeIntakeOutroosevelt general hospitalNet Apr 27, 2018 6:00 [id number] Apr 26, 2018 10:00 pm411.6595-184 Apr 26, 2018 2:00 [id number] The Intake and Output Totals for the last 24 hours are: IntakeOutputNet [id number] T PRBPSpO2 Value36.03475759/8197% Date/Time04/27 6: 6: 6: 6: 6:53 Range(36.3C [...] discharge Discussed with surgical team Edwin Chow APRN-[employer] [place] [address] Electronic Signatures: Hannah Chow (CIGARETTE LIGHTER REPAIRER-[employer]) (Signed 27-Apr-2018 12:16) Authored: Service, Subjective Data, Objective Data, Assessment and Plan, Signature/Cosignature/Attesta tion Last Updated: 27-Apr-2018 12:16 by Hannah Chow (CIGARETTE LIGHTER REPAIRER[employer]) Normal [facility] GLUCOSE-POCTon 04-27-2018 Glucose [Mass/Vol] 146 mg/dL High 74 - 99 [facility] Comment on above: Performed By: #### G VAISHALI ####[id number] [place] [address] Glucose [Mass/Vol] 162 mg/dL High 74 - 99 [facility] Comment on above: Performed By: #### G VAISHALI ####[id number] [place] [address] Glucose [Mass/Vol] 141 mg/dL High 74 - 99 [facility] Comment on above: Performed By: #### G VAISHALI ####[id number] [place] [address] Glucose [Mass/Vol] 163 mg/dL High 74 - 99 [facility] Comment on above: Performed By: #### G VAISHALI ####[id number] [place] [address] Glucose [Mass/Vol] 128 mg/dL High 74 - 99 [facility] Comment on above: Performed By: #### G VAISHALI ####[id number] [place] [address] MAGNESIUMon 04-27-2018 Magnesium [Mass/Vol] 1.79 mg/dL Normal 1.60 - 2.40 [facility] Comment on above: Performed By: #### M G ####[id number] [place] [address] CALCIUM, IONIZEDon 9 CALCIUM,IONIZED 1.11 mmol/L Normal 1.10 - 1.33 [facility] Comment on above: Result Comment: The performance characteristics of ionized calcium tested in heparinized plasma or serum have been validated by the individual laboratory site where testing is performed. Testing on heparinized plasma or serum is not approved by the FDA; however, such approval is not necessary. Performed By: #### I ONC1 ####[id number] [place] [address] CBCon 04-26-2018 Erythrocyte distribution width (RBC) [Ratio] 14.7 % High 11.5 - 14.5 [facility] Comment on above: Performed By: #### C BC ####[id number] [place] [address] Hematocrit (Bld) [Volume fraction] 26.0 % Low 41.0 - 52.0 [facility] Comment on above: Performed By: #### C BC ####[id number] [place] [address] Hemoglobin (Bld) [Mass/Vol] 8.7 g/dL Low 13.5 - 17.5 [facility] Comment on above: Performed By: #### C BC ####[id number] [place] [address] MCHC (RBC) [Mass/Vol] 33.5 g/dL Normal 32.0 - 36.0 [facility] Comment on above: Performed By: #### C BC ####[id number] [place] [address] MCV (RBC) [Entitic vol] 92 fL Normal 80 - 100 [facility] Comment on above: Performed By: #### C BC ####[id number] [place] [address] Nucleated RBC/100 WBC (Bld) [Ratio] 0.0 /100 WBC Normal 0.0-0.0 [facility] Comment on above: Performed By: #### C BC ####[id number] [place] [address] Platelets (Bld) [#/Vol] 364 10*3/uL Normal 150 - 450 [facility] Comment on above: Performed By: #### C BC ####[id number] [place] [address] RBC (Bld) [#/Vol] 2.84 x10E12/L Low 4.50 - 5.90 [facility] Comment on above: Performed By: #### C BC ####[id number] [place] [address] WBC (Bld) [#/Vol] 12.7 10*3/uL High 4.4 - 11.3 [facility] Comment on above: Performed By: #### C BC ####[id number] [place] [address] Erythrocyte distribution width (RBC) [Ratio] 15.3 % High 11.5 - 14.5 [facility] Comment on above: Performed By: #### C BC ####[id number] [place] [address] Hematocrit (Bld) [Volume fraction] 27.1 % Low 41.0 - 52.0 [facility] Comment on above: Performed By: #### C BC ####[id number] [place] [address] Hemoglobin (Bld) [Mass/Vol] 8.5 g/dL Low 13.5 - 17.5 [facility] Comment on above: Performed By: #### C BC ####[id number] [place] [address] MCHC (RBC) [Mass/Vol] 31.4 g/dL Low 32.0 - 36.0 [facility] Comment on above: Performed By: #### C BC ####[id number] [place] [address] MCV (RBC) [Entitic vol] 97 fL Normal 80 - 100 [facility] Comment on above: Performed By: #### C BC ####[id number] [place] [address] Nucleated RBC/100 WBC (Bld) [Ratio] 0.0 /100 WBC Normal 0.0-0.0 [facility] Comment on above: Performed By: #### C BC ####[id number] [place] [address] Platelets (Bld) [#/Vol] 321 10*3/uL Normal 150 - 450 [facility] Comment on above: Performed By: #### C BC ####[id number] [place] [address] RBC (Bld) [#/Vol] 2.78 x10E12/L Low 4.50 - 5.90 [facility] Comment on above: Performed By: #### C BC ####[id number] [place] [address] WBC (Bld) [#/Vol] 13.4 10*3/uL High 4.4 - 11.3 [facility] Comment on above: Performed By: #### C BC ####[id number] [place] [address] COAGULATION SCREENon 019 aPTT Coag (Bld) [Time] 31 s Normal 28 - 38 [facility] Comment on above: Result Comment: THE APTT IS NO LONGER USED FOR MONITORING UNFRACTIONATED HEPARIN THERAPY. FOR MONITORING HEPARIN THERAPY, USE THE HEPARIN ASSAY. Performed By: #### C OAGS ####[id number] [place] [address] INR Coag (PPP) [Relative time] 1.1 {INR} Normal 0.9 - 1.1 [facility] Comment on above: Performed By: #### C OAGS ####[id number] [place] [address] PT Coag (PPP) [Time] 11.8 s Normal 9.7 - 12.7 [facility] Comment on above: Performed By: #### C OAGS ####[id number] [place] [address] Daily Progress Note - Critic al Careon 04-26-2018 Daily Progress Note - Critical Care Subjective Data: ID Statement: ADEN PATEL is a 67 year old Male who is Hospital Day # 14 and ICU Day #3 and POD #2 for exploratory laparotomy, small bowel resection and anastomosis, vicryl mesh closure. Objective Data: Objective Information T PRBPSpO2 [id number]/8896% Date/Time04/26 4: 7: 7: 7: 7:00 Range(36C - 36.5C ) (59 - 80 ) (17 - 26 ) (98 - 168 )/ (62 - 97 ) (95% - 99% ) As of 26-Apr-2018 04:00:00, patient is on 2 L/min of oxygen via nasal cannula. 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 On 04/22 AM he went [...] - placed 04/21/2018 Dispo: Floor Team phone: [phone] Code Status: Code StatusFull Code Signature/Cosignature/Attesta tion: [...] 26-Apr-2018 14:05 by Davis Del Valle) Normal [facility] GLUCOSE-POCTon 04-26-2018 Glucose [Mass/Vol] 164 mg/dL High 74 - 99 [facility] Comment on above: Performed By: #### G VAISHALI ####[id number] [place] [address] Glucose [Mass/Vol] 122 mg/dL High 74 - 99 [facility] Comment on above: Performed By: #### G VAISHALI ####[id number] [place] [address] Glucose [Mass/Vol] 158 mg/dL High 74 - 99 [facility] Comment on above: Performed By: #### G VAISHALI ####[id number] [place] [address] Glucose [Mass/Vol] 123 mg/dL High 74 - 99 [facility] Comment on above: Performed By: #### G VAISHALI ####[id number] [place] [address] Glucose [Mass/Vol] 180 mg/dL High 74 - 99 [facility] Comment on above: Performed By: #### G VAISHALI ####[id number] [place] [address] Glucose [Mass/Vol] 152 mg/dL High 74 - 99 [facility] Comment on above: Performed By: #### G VAISHALI ####[id number] [place] [address] MAGNESIUMon 04-26-2018 Magnesium [Mass/Vol] 2.20 mg/dL Normal 1.60 - 2.40 [facility] Comment on above: Performed By: #### M G ####[id number] [place] [address] Nutrition Therapy-Noteon Nutrition Therapy-Note Assessment Subjective/Objective: Note Type: Note Note Authored by: Physician Vice President Aeronautical Test Engineer Note: reviewed by Registered Dietitian Mortician Investigator Pager Number: [phone] Nutrition Note: The patient is a 67 [...] 364 RDW-CV 14.7 H Glucose_POCT Trending View [id number] 11:50:00 26-Apr-2018 08:28:00 26-Apr-2018 03:57:00 26-Apr-2018 00:36:00 25-Apr-2018 18:46:00 25-Apr-2018 16:53:00 Glucose-XBKN037 H 123 H 180 H 152 H [...] NPO, Routine ., 24-Apr-2018 Estimated Needs: kcals/day: 6426-6482 gms protein/day: 120+ mL fluid/day: 3376-7349 or per Nutrition Therapy Recommendations: Nutrition Therapy [...] - Parenteral Nutrition/Lipids will provide: Total kcals/day 1993. Total protein/day (gm) 125. Total volume (ml) [...] Nutrition Recommendations, Parenteral Nutrition Recommendations Michelle Becker (RDN, LD) (Signed 26-Apr-2018 15:26) Authored: Assessment Subjective/Objective, Parenteral Nutrition Recommendations, Time Spent/Nutrition Support Last Updated: 26-Apr-2018 15:26 by Michelle Becker (HERRERA, RITA) Normal [facility] RENAL FUNCTION PANELon 04-26 Glucose [Mass/Vol] Canceled Normal [facility] Comment on above: Performed By: #### R ENAL ####[id number] [place] [address] Albumin [Mass/Vol] 2.1 g/dL Low 3.4 - 5.0 [facility] Comment on above: Performed By: #### R ENAL ####[id number] [place] [address] Anion gap [Moles/Vol] 13 mmol/L Normal 10 - 20 [facility] Comment on above: Performed By: #### R ENAL ####[id number] [place] [address] Calcium [Mass/Vol] 7.4 mg/dL Low 8.6 - 10.6 [facility] Comment on above: Performed By: #### R ENAL ####[id number] [place] [address] Chloride [Moles/Vol] 104 mmol/L Normal 98 - 107 [facility] Comment on above: Performed By: #### R ENAL ####[id number] [place] [address] Creatinine [Mass/Vol] 0.80 mg/dL Normal 0.50 - 1.30 [facility] Comment on above: Performed By: #### R ENAL ####[id number] [place] [address] GFR- AM. >60 Normal >60 [facility] Comment on above: Result Comment: CALC ULATIONS OF ESTIMATED GFR ARE PERFORMED USING THE MDRD STUDY EQUATION FOR THE IDMS-TRACEABLE CREATININE METHODS. CLIN CHEM 2007;53:766-72 Performed By: #### R ENAL ####[id number] [place] [address] GFR-NON AM. >60 Normal >60 [facility] Comment on above: Performed By: #### R ENAL ####[id number] [place] [address] HCO3 (Bld) [Moles/Vol] 25 mmol/L Normal 21 - 32 [facility] Comment on above: Performed By: #### R ENAL ####[id number] [place] [address] Phosphate [Mass/Vol] 4.2 mg/dL Normal 2.5 - 4.9 [facility] Comment on above: Result Comment: The performance characteristics of phosphorus testing in heparinized plasma have been validated by the individual laboratory site where testing is performed. Testing on heparinized plasma is not approved by the FDA; however, such approval is not necessary. Performed By: #### R ENAL ####[id number] [place] [address] Potassium [Moles/Vol] 4.7 mmol/L Normal 3.5 - 5.3 [facility] Comment on above: Performed By: #### R ENAL ####[id number] [place] [address] Sodium [Moles/Vol] 137 mmol/L Normal 136 - 145 [facility] Comment on above: Performed By: #### R ENAL ####[id number] [place] [address] Urea nitrogen [Mass/Vol] 19 mg/dL Normal 6 - 23 [facility] Comment on above: Performed By: #### R ENAL ####[id number] [place] [address] CALCIUM, IONIZEDon 9 CALCIUM,IONIZED 1.09 mmol/L Low 1.10 - 1.33 [facility] Comment on above: Result Comment: The performance characteristics of ionized calcium tested in heparinized plasma or serum have been validated by the individual laboratory site where testing is performed. Testing on heparinized plasma or serum is not approved by the FDA; however, such approval is not necessary. Performed By: #### I ONC1 ####[id number] [place] [address] CBCon 04-25-2018 Erythrocyte distribution width (RBC) [Ratio] 14.8 % High 11.5 - 14.5 [facility] Comment on above: Performed By: #### C BC ####[id number] [place] [address] Hematocrit (Bld) [Volume fraction] 29.5 % Low 41.0 - 52.0 [facility] Comment on above: Performed By: #### C BC ####[id number] [place] [address] Hemoglobin (Bld) [Mass/Vol] 9.5 g/dL Low 13.5 - 17.5 [facility] Comment on above: Performed By: #### C BC ####[id number] [place] [address] MCHC (RBC) [Mass/Vol] 32.2 g/dL Normal 32.0 - 36.0 [facility] Comment on above: Performed By: #### C BC ####[id number] [place] [address] MCV (RBC) [Entitic vol] 95 fL Normal 80 - 100 [facility] Comment on above: Performed By: #### C BC ####[id number] [place] [address] Nucleated RBC/100 WBC (Bld) [Ratio] 0.0 /100 WBC Normal 0.0-0.0 [facility] Comment on above: Performed By: #### C BC ####[id number] [place] [address] Platelets (Bld) [#/Vol] 286 10*3/uL Normal 150 - 450 [facility] Comment on above: Performed By: #### C BC ####[id number] [place] [address] RBC (Bld) [#/Vol] 3.10 x10E12/L Low 4.50 - 5.90 [facility] Comment on above: Performed By: #### C BC ####[id number] [place] [address] WBC (Bld) [#/Vol] 16.6 10*3/uL High 4.4 - 11.3 [facility] Comment on above: Performed By: #### C BC ####[id number] [place] [address] COAGULATION SCREENon 019 aPTT Coag (Bld) [Time] 30 s Normal 28 - 38 [facility] Comment on above: Result Comment: THE APTT IS NO LONGER USED FOR MONITORING UNFRACTIONATED HEPARIN THERAPY. FOR MONITORING HEPARIN THERAPY, USE THE HEPARIN ASSAY. Performed By: #### C OAGS ####[id number] [place] [address] INR Coag (PPP) [Relative time] 1.1 {INR} Normal 0.9 - 1.1 [facility] Comment on above: Performed By: #### C OAGS ####[id number] [place] [address] PT Coag (PPP) [Time] 11.7 s Normal 9.7 - 12.7 [facility] Comment on above: Performed By: #### C OAGS ####[id number] [place] [address] Clinical Event Note-Postop Radha magdaleno 04-25-2018 Clinical [...] mir Clara Eaton MD PGY1 General Surgery [place] [facility] [address] Electronic Signatures: Clara Eaton ( (Resident)) (Signed 25-Apr-2018 02:05) Authored: Event Last Updated: 25-Apr-2018 02:05 by Clara Eaton ( (Resident)) Normal [facility] Daily Progress Note - Critic al Care-SICUon [...] HDS. Objective Data: Objective Information T PRBPSpO2 [id number]/7297% Date/Time04/25 4: 6: 6: 6: 6:00 Range(36.9C - 37.2C ) (60 - 109 ) (17 - 33 ) (93 - 158 )/ (58 - 98 ) (91% - 98% ) As of 25-Apr-2018 04:00:00, patient is on 3% oxygen via nasal cannula. Highest temp of 37.2 C was recorded at 04/25 4:00 Pain reported at 04/25 4:00: 0 Direct Arterial Blood Pressure Gxulauff087(99 - 178)04/25 6:00 Diastolic (mm Hg)58(49 - 79)04/25 6:00 Mean (mm Hg)80(65 - 107)04/25 6:00 Pulse Pressure (mm Hg)76(24 - 105)04/25 6:00 Cgpjcvcq457(99 - 178)04/24 14:55 Diastolic (mm Hg)76(49 - 79)04/24 14:55 Pulse Pressure (mm Hg)97(24 - 105)04/24 14:55 ---- Intake and Output ----- [facility]Dy[facility] Apr 25, 2018 6:00 [id number] Apr 24, 2018 10:00 [id number] Apr 24, 2018 2:00 [id number] The Intake and Output Totals for the last 24 hours are: IntakeOutputNet [id number] Drain and tube details (included in I&O [...] (per patient) , 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 On 04/22 AM he went [...] [facility] for now Team phone: [phone] Seen and d/w Dr. Reymundo Wilkinson MD [...] Updated: 25-Apr-2018 14:14 by Davis Del Valle) [facility] Daily Progress Note-Colorect al Surgeryon 04-25-2018 Daily Progress Note-Colorectal Surgery Service: Colorectal Surgery Subjective Data: ADEN PATEL is a 67 year old Male who is Hospital Day # 13 and POD #1 for exploratory laparotomy, small bowel resection and anastomosis, vicryl mesh closure. No N/V. Pain controlled. NGT in place. Overnight Events: Patient had an uneventful night. Objective Data: Objective Information: T PRBPSpO2 Value36.16320113/7597% Date/Time04/25 12: 14: 14: 13: 14:00 Range(36.2C [...] reviewed these laboratory results: Glucose_POCT Trending View Duhupp32-Kph-3062 12:17:00 25-Apr-2018 08:26:00 Glucose-EVAV452 H 179 H Coagulation Screen 25-Apr-2018 02:33:00 [...] Dr. Colmenares. Marquez Bronson General Surgery, PGY-2 [place] [facility] [address] Signature/Cosignature/Attesta tion: Attending AttestationI saw and evaluated [...] Updated: 27-Apr-2018 16:45 by Nolvia Colmenares) Normal [facility] GLUCOSE-POCTon 04-25-2018 Glucose [Mass/Vol] 119 mg/dL High 74 - 99 [facility] Comment on above: Performed By: #### G VAISHALI ####[id number] [place] [address] Glucose [Mass/Vol] 154 mg/dL High 74 - 99 [facility] Comment on above: Performed By: #### G VAISHALI ####[id number] [place] [address] Glucose [Mass/Vol] 130 mg/dL High 74 - 99 [facility] Comment on above: Performed By: #### G VAISHALI ####[id number] [place] [address] Glucose [Mass/Vol] 179 mg/dL High 74 - 99 [facility] Comment on above: Performed By: #### G VAISHALI ####[id number] [place] [address] Glucose [Mass/Vol] 138 mg/dL High 74 - 99 [facility] Comment on above: Performed By: #### G VAISHALI ####[id number] [place] [address] MAGNESIUMon 04-25-2018 Magnesium [Mass/Vol] 2.38 mg/dL Normal 1.60 - 2.40 [facility] Comment on above: Performed By: #### M G ####[id number] [place] [address] RENAL FUNCTION PANELon 04-25 Albumin [Mass/Vol] 2.2 g/dL Low 3.4 - 5.0 [facility] Comment on above: Performed By: #### R ENAL ####[id number] [place] [address] Anion gap [Moles/Vol] 11 mmol/L Normal 10 - 20 [facility] Comment on above: Performed By: #### R ENAL ####[id number] [place] [address] Calcium [Mass/Vol] 7.3 mg/dL Low 8.6 - 10.6 [facility] Comment on above: Performed By: #### R ENAL ####[id number] [place] [address] Chloride [Moles/Vol] 108 mmol/L High 98 - 107 [facility] Comment on above: Performed By: #### R ENAL ####[id number] [place] [address] Creatinine [Mass/Vol] 0.88 mg/dL Normal 0.50 - 1.30 [facility] Comment on above: Performed By: #### R ENAL ####[id number] [place] [address] GFR- AM. >60 Normal >60 [facility] Comment on above: Result Comment: CALC ULATIONS OF ESTIMATED GFR ARE PERFORMED USING THE MDRD STUDY EQUATION FOR THE IDMS-TRACEABLE CREATININE METHODS. CLIN CHEM 2007;53:766-72 Performed By: #### R ENAL ####[id number] [place] [address] GFR-NON AM. >60 Normal >60 [facility] Comment on above: Performed By: #### R ENAL ####[id number] [place] [address] Glucose [Mass/Vol] 159 mg/dL High 74 - 99 [facility] Comment on above: Performed By: #### R ENAL ####[id number] [place] [address] HCO3 (Bld) [Moles/Vol] 25 mmol/L Normal 21 - 32 [facility] Comment on above: Performed By: #### R ENAL ####[id number] [place] [address] Phosphate [Mass/Vol] 3.0 mg/dL Normal 2.5 - 4.9 [facility] Comment on above: Result Comment: The performance characteristics of phosphorus testing in heparinized plasma have been validated by the individual laboratory site where testing is performed. Testing on heparinized plasma is not approved by the FDA; however, such approval is not necessary. Performed By: #### R ENAL ####[id number] [place] [address] Potassium [Moles/Vol] 4.3 mmol/L Normal 3.5 - 5.3 [facility] Comment on above: Result Comment: MILD HEMOLYSIS DETECTED. The result may be falsely elevated due to hemolysis or other interferents. Clinical correlation is recommended. Repeat testing may be considered. Performed By: #### R ENAL ####[id number] [place] [address] Sodium [Moles/Vol] 140 mmol/L Normal 136 - 145 [facility] Comment on above: Performed By: #### R ENAL ####[id number] [place] [address] Urea nitrogen [Mass/Vol] 18 mg/dL Normal 6 - 23 [facility] Comment on above: Performed By: #### R ENAL ####[id number] [place] [address] ARTERIAL FULL PANELon 2018 Anion gap [Moles/Vol] 8 mmol/L Low 10 - 25 [facility] Comment on above: Performed By: #### A FPA3 ####[id number] [place] [address] BASE EXCESS-BLOOD 4.0 mmol/L High -2.0 - 3.0 [facility] Comment on above: Performed By: #### A FPA3 ####[id number] [place] [address] CALCIUM,IONIZED 1.13 mmol/L Normal 1.10 - 1.33 [facility] Comment on above: Performed By: #### A FPA3 ####[id number] [place] [address] Chloride [Moles/Vol] 107 mmol/L Normal 98 - 107 [facility] Comment on above: Performed By: #### A FPA3 ####[id number] [place] [address] Glucose [Mass/Vol] 157 mg/dL High 74 - 99 [facility] Comment on above: Performed By: #### A FPA3 ####[id number] [place] [address] Hematocrit (Bld) [Volume fraction] 29.0 % Low 41.0 - 52.0 [facility] Comment on above: Performed By: #### A FPA3 ####[id number] [place] [address] HGB,CALCULATED 9.9 g/dL Low 13.5 - 17.5 [facility] Comment on above: Performed By: #### A FPA3 ####[id number] [place] [address] Lactate [Moles/Vol] 1.4 mmol/L Normal 0.4 - 2.0 [facility] Comment on above: Performed By: #### A FPA3 ####[id number] [place] [address] Oxygen (Bld) [Partial pressure] 67 mm[Hg] Low 85 - 95 [facility] Comment on above: Performed By: #### A FPA3 ####[id number] [place] [address] PCO2 35 mmHg Low 38 - 42 [facility] Comment on above: Performed By: #### A FPA3 ####[id number] [place] [address] pH (Bld) 7.50 [pH] High 7.38 - 7.42 [facility] Comment on above: Performed By: #### A FPA3 ####[id number] [place] [address] Potassium [Moles/Vol] 3.2 mmol/L Low 3.5 - 5.3 [facility] Comment on above: Performed By: #### A FPA3 ####[id number] [place] [address] RBC (Bld) [#/Vol] 27.3 mmol/L High 22.0 - 26.0 [facility] Comment on above: Performed By: #### A FPA3 ####[id number] [place] [address] SO2 98 % Normal 94 - 100 [facility] Comment on above: Performed By: #### A FPA3 ####[id number] [place] [address] Sodium [Moles/Vol] 139 mmol/L Normal 136 - 145 [facility] Comment on above: Performed By: #### A FPA3 ####[id number] [place] [address] CALCIUM, IONIZEDon 9 CALCIUM,IONIZED 1.13 mmol/L Normal 1.10 - 1.33 [facility] Comment on above: Result Comment: The performance characteristics of ionized calcium tested in heparinized plasma or serum have been validated by the individual laboratory site where testing is performed. Testing on heparinized plasma or serum is not approved by the FDA; however, such approval is not necessary. Performed By: #### I ONC1 ####[id number] [place] [address] CALCIUM,IONIZED Canceled Normal [facility] Comment on above: Order Comment: TEST CALCIUM, [...] not necessary. Performed By: #### I ONC1 ####[id number] [place] [address] CALCIUM,IONIZED 1.17 mmol/L Normal 1.10 - 1.33 [facility] Comment on above: Result Comment: The performance characteristics of ionized calcium tested in heparinized plasma or serum have been validated by the individual laboratory site where testing is performed. Testing on heparinized plasma or serum is not approved by the FDA; however, such approval is not necessary. Performed By: #### I ONC1 ####[id number] [place] [address] CBCon 04-24-2018 Erythrocyte distribution width (RBC) [Ratio] 14.8 % High 11.5 - 14.5 [facility] Comment on above: Performed By: #### C BC ####[id number] [place] [address] Hematocrit (Bld) [Volume fraction] 32.2 % Low 41.0 - 52.0 [facility] Comment on above: Performed By: #### C BC ####[id number] [place] [address] Hemoglobin (Bld) [Mass/Vol] 10.2 g/dL Low 13.5 - 17.5 [facility] Comment on above: Performed By: #### C BC ####[id number] [place] [address] MCHC (RBC) [Mass/Vol] 31.7 g/dL Low 32.0 - 36.0 [facility] Comment on above: Performed By: #### C BC ####[id number] [place] [address] MCV (RBC) [Entitic vol] 95 fL Normal 80 - 100 [facility] Comment on above: Performed By: #### C BC ####[id number] [place] [address] Nucleated RBC/100 WBC (Bld) [Ratio] 0.0 /100 WBC Normal 0.0-0.0 [facility] Comment on above: Performed By: #### C BC ####[id number] [place] [address] Platelets (Bld) [#/Vol] 320 10*3/uL Normal 150 - 450 [facility] Comment on above: Performed By: #### C BC ####[id number] [place] [address] RBC (Bld) [#/Vol] 3.39 x10E12/L Low 4.50 - 5.90 [facility] Comment on above: Performed By: #### C BC ####[id number] [place] [address] WBC (Bld) [#/Vol] 15.3 10*3/uL High 4.4 - 11.3 [facility] Comment on above: Performed By: #### C BC ####[id number] [place] [address] Erythrocyte distribution width (RBC) [Ratio] 14.6 % High 11.5 - 14.5 [facility] Comment on above: Performed By: #### C BC ####[id number] [place] [address] Hematocrit (Bld) [Volume fraction] 27.1 % Low 41.0 - 52.0 [facility] Comment on above: Performed By: #### C BC ####[id number] [place] [address] Hemoglobin (Bld) [Mass/Vol] 9.3 g/dL Low 13.5 - 17.5 [facility] Comment on above: Performed By: #### C BC ####[id number] [place] [address] MCHC (RBC) [Mass/Vol] 34.3 g/dL Normal 32.0 - 36.0 [facility] Comment on above: Performed By: #### C BC ####[id number] [place] [address] MCV (RBC) [Entitic vol] 89 fL Normal 80 - 100 [facility] Comment on above: Performed By: #### C BC ####[id number] [place] [address] Nucleated RBC/100 WBC (Bld) [Ratio] 0.1 /100 WBC Normal 0.0-0.0 [facility] Comment on above: Performed By: #### C BC ####[id number] [place] [address] Platelets (Bld) [#/Vol] 250 10*3/uL Normal 150 - 450 [facility] Comment on above: Performed By: #### C BC ####[id number] [place] [address] RBC (Bld) [#/Vol] 3.03 x10E12/L Low 4.50 - 5.90 [facility] Comment on above: Performed By: #### C BC ####[id number] [place] [address] WBC (Bld) [#/Vol] 15.1 10*3/uL High 4.4 - 11.3 [facility] Comment on above: Performed By: #### C BC ####[id number] [place] [address] Erythrocyte distribution width (RBC) [Ratio] 15.0 % High 11.5 - 14.5 [facility] Comment on above: Performed By: #### C BC ####[id number] [place] [address] Hematocrit (Bld) [Volume fraction] 23.8 % Low 41.0 - 52.0 [facility] Comment on above: Performed By: #### C BC ####[id number] [place] [address] Hemoglobin (Bld) [Mass/Vol] 7.7 g/dL Low 13.5 - 17.5 [facility] Comment on above: Performed By: #### C BC ####[id number] [place] [address] MCHC (RBC) [Mass/Vol] 32.4 g/dL Normal 32.0 - 36.0 [facility] Comment on above: Performed By: #### C BC ####[id number] [place] [address] MCV (RBC) [Entitic vol] 93 fL Normal 80 - 100 [facility] Comment on above: Performed By: #### C BC ####[id number] [place] [address] Nucleated RBC/100 WBC (Bld) [Ratio] 0.0 /100 WBC Normal 0.0-0.0 [facility] Comment on above: Performed By: #### C BC ####[id number] [place] [address] Platelets (Bld) [#/Vol] 200 10*3/uL Normal 150 - 450 [facility] Comment on above: Performed By: #### C BC ####[id number] [place] [address] RBC (Bld) [#/Vol] 2.55 x10E12/L Low 4.50 - 5.90 [facility] Comment on above: Performed By: #### C BC ####[id number] [place] [address] WBC (Bld) [#/Vol] 14.0 10*3/uL High 4.4 - 11.3 [facility] Comment on above: Performed By: #### C BC ####[id number] [place] [address] COAGULATION SCREENon 019 aPTT Coag (Bld) [Time] 30 s Normal 28 - 38 [facility] Comment on above: Result Comment: THE APTT IS NO LONGER USED FOR MONITORING UNFRACTIONATED HEPARIN THERAPY. FOR MONITORING HEPARIN THERAPY, USE THE HEPARIN ASSAY. Performed By: #### C OAGS ####[id number] [place] [address] INR Coag (PPP) [Relative time] 1.0 {INR} Normal 0.9 - 1.1 [facility] Comment on above: Performed By: #### C OAGS ####[id number] [place] [address] PT Coag (PPP) [Time] 11.5 s Normal 9.7 - 12.7 [facility] Comment on above: Performed By: #### C OAGS ####[id number] [place] [address] aPTT Coag (Bld) [Time] 31 s Normal 28 - 38 [facility] Comment on above: Result Comment: THE APTT IS NO LONGER USED FOR MONITORING UNFRACTIONATED HEPARIN THERAPY. FOR MONITORING HEPARIN THERAPY, USE THE HEPARIN ASSAY. Performed By: #### C OAGS ####[id number] [place] [address] INR Coag (PPP) [Relative time] 1.1 {INR} Normal 0.9 - 1.1 [facility] Comment on above: Performed By: #### C OAGS ####[id number] [place] [address] PT Coag (PPP) [Time] 12.2 s Normal 9.7 - 12.7 [facility] Comment on above: Performed By: #### C OAGS ####[id number] [place] [address] Clinical Event Note-Return f rom ORon 04-24-2018 [...] Nolvia Ayala CNP Electronic Signatures: Nolvia Ayala ([employer]) (Signed 24-Apr-2018 18:53) Authored: Event Last Updated: 24-Apr-2018 18:53 by Nolvia Ayala ([employer]) Normal [facility] Daily Progress Note - Critic al Care-SICUon [...] well. Objective Data: Objective Information T PRBPSpO2 Value36.66658709/8495% Date/Time04/24 4: 6: 6: 6: 6:00 Range(36C [...] 04/24 4:00: 0 Direct Arterial Blood Pressure Jtggzcvy052(144 - 183)04/24 6:00 Diastolic (mm Hg)69(64 - 99)04/24 6:00 Mean (mm Hg)101(68 - 230)04/24 6:00 Pulse Pressure (mm Hg)103(69 - 108)04/24 6:00 ---- Intake and Output ----- 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 On 04/22 AM he went [...] [facility] for now Team phone: [phone] Seen and d/w Dr. Kulwant Wilkinson MD [...] Updated: 24-Apr-2018 14:51 by Trav Blum) Normal [facility] Daily Progress Note-Colorect al Surgeryon 04-24-2018 Daily [...] night. Objective Data: Objective Information: T PRBPSpO2 [id number]/8093% Date/Time04/24 8: 8: 8: 8: 8:00 Range(36C - 37.1C ) (62 - 80 ) (15 - 23 ) (139 - 165 )/ (79 - 125 ) (88% - 98% ) Highest temp of 37.1 C was recorded at 04/24 0:00 Pain reported at 04/24 4:00: 0 ---- Intake and Output ----- Mn/Dy/Year TimeIntakeOutputNet Apr 24, 2018 6:00 [id number] Apr 23, 2018 10:00 [id number] Apr 23, 2018 2:00 ly0080.72596999 The Intake and Output Totals for the last 24 hours are: IntakeOutputNet [id number] Intake Output IV Fluids 2350 mL Urine [...] reviewed these laboratory results: Glucose_POCT Trending View [id number]-Nvr-2895 08:17:00 24-Apr-2018 04:14:00 24-Apr-2018 00:11:00 Glucose-XKYD968 H 155 H 162 H Arterial Full [...] Dr. Colmenares. Marquez Bronson General Surgery, PGY-2 [place] [facility] [address] Signature/Cosignature/Attesta tion: Attending AttestationI saw and evaluated [...] Data, Assessment and Plan, Signature/Cosignature/Attesta tion Nolvia Colmenarse) (Signed 25-Apr-2018 13:11) Authored: Signature/Cosignature/Attesta tion Co-Signer: Service, Subjective Data, Objective Data, Assessment and Plan, Signature/Cosignature/Attesta tion Last Updated: 25-Apr-2018 13:11 by Nolvia Colmenares) Normal [facility] FIBRINOGENon 04-24-2018 FIBRINOGEN 482 mg/dL High 200 - 400 [facility] Comment on above: Performed By: #### F IB ####[id number] [place] [address] FIBRINOGEN 409 mg/dL High 200 - 400 [facility] Comment on above: Performed By: #### F IB ####[id number] [place] [address] GLUCOSE-POCTon 04-24-2018 Glucose [Mass/Vol] 171 mg/dL High 74 - 99 [facility] Comment on above: Performed By: #### G VAISHALI ####[id number] [place] [address] Glucose [Mass/Vol] 134 mg/dL High 74 - 99 [facility] Comment on above: Performed By: #### G VAISHALI ####[id number] [place] [address] Glucose [Mass/Vol] 163 mg/dL High 74 - 99 [facility] Comment on above: Performed By: #### G VAISHALI ####[id number] [place] [address] Glucose [Mass/Vol] 155 mg/dL High 74 - 99 [facility] [facility] Comment on above: Performed By: #### G VAISHALI ####[id number] [place] [address] Glucose [Mass/Vol] 162 mg/dL High 74 - 99 [facility] Comment on above: Performed By: #### G VAISHALI ####[id number] [place] [address] MAGNESIUMon 04-24-2018 Magnesium [Mass/Vol] 2.10 mg/dL Normal 1.60 - 2.40 [facility] Comment on above: Performed By: #### M G ####[id number] [place] [address] Magnesium [Mass/Vol] 1.87 mg/dL Normal 1.60 - 2.40 [facility] Comment on above: Performed By: #### M G ####[id number] [place] [address] OPERATIVE REPORTon 9 OPERATIVE REPORT [facility] [address] [place] [address] Patient Name: ADEN PATEL : 1950 Date of Service: 04/24/2018 Patient Location: [facility] [place] C5018 [id number] Patient Type: I Surgeon: Nolvia Colmenares MD Report Type: Operative Reports PREOPERATIVE DIAGNOSIS: Open abdomen and small bowel in discontinuity, ischemic small bowel, status post intraabdominal bleed. POSTOPERATIVE DIAGNOSIS: Open abdomen and small bowel in discontinuity, ischemic small bowel, status post intraabdominal bleed. OPERATION/PROCEDURE: Exploratory laparotomy, small bowel resection with primary anastomosis, Vicryl mesh closure of the abdomen. SURGEON: Nolvia Colmenares MD. TEXTILE SLITTING MACHINE OPERATOR(S): 1. Dr. Blake. 2. Dr. Wilson. 3. [...] described above. Dr. Blake was the surgical instruments inspector. Nolvia Colmenares MD EST TT: 04/28/2018 04:27 PM EST DICTATION NUMBER: [id number] PAUL JOB NUMBER: [id number] CC: Quentin Rangel, [id number] Edited by Nolvia Colmenares 05/03/2018 02:55:24 PM Electronically Signed by Dr. Nolvia Colmenares 05/03/2018 02:55:24 PM Normal [facility] RENAL FUNCTION PANELon 04-24 Albumin [Mass/Vol] 2.4 g/dL Low 3.4 - 5.0 [facility] Comment on above: Performed By: #### R ENAL ####[id number] [place] [address] Anion gap [Moles/Vol] 14 mmol/L Normal 10 - 20 [facility] Comment on above: Performed By: #### R ENAL ####[id number] [place] [address] Calcium [Mass/Vol] 7.5 mg/dL Low 8.6 - 10.6 [facility] Comment on above: Performed By: #### R ENAL ####[id number] [place] [address] Chloride [Moles/Vol] 106 mmol/L Normal 98 - 107 [facility] Comment on above: Performed By: #### R ENAL ####[id number] [place] [address] Creatinine [Mass/Vol] 0.81 mg/dL Normal 0.50 - 1.30 [facility] Comment on above: Performed By: #### R ENAL ####[id number] [place] [address] GFR- AM. >60 Normal >60 [facility] Comment on above: Result Comment: CALC ULATIONS OF ESTIMATED GFR ARE PERFORMED USING THE MDRD STUDY EQUATION FOR THE IDMS-TRACEABLE CREATININE METHODS. CLIN CHEM 2007;53:766-72 Performed By: #### R ENAL ####[id number] [place] [address] GFR-NON AM. >60 Normal >60 [facility] Comment on above: Performed By: #### R ENAL ####[id number] [place] [address] Glucose [Mass/Vol] 168 mg/dL High 74 - 99 [facility] Comment on above: Performed By: #### R ENAL ####[id number] [place] [address] HCO3 (Bld) [Moles/Vol] 24 mmol/L Normal 21 - 32 [facility] Comment on above: Performed By: #### R ENAL ####[id number] [place] [address] Phosphate [Mass/Vol] 2.9 mg/dL Normal 2.5 - 4.9 [facility] Comment on above: Result Comment: The performance characteristics of phosphorus testing in heparinized plasma have been validated by the individual laboratory site where testing is performed. Testing on heparinized plasma is not approved by the FDA; however, such approval is not necessary. Performed By: #### R ENAL ####[id number] [place] [address] Potassium [Moles/Vol] 3.9 mmol/L Normal 3.5 - 5.3 [facility] Comment on above: Performed By: #### R ENAL ####[id number] [place] [address] Sodium [Moles/Vol] 140 mmol/L Normal 136 - 145 [facility] Comment on above: Performed By: #### R ENAL ####[id number] [place] [address] Urea nitrogen [Mass/Vol] 17 mg/dL Normal 6 - 23 [facility] Comment on above: Performed By: #### R ENAL ####[id number] [place] [address] Albumin [Mass/Vol] 2.3 g/dL Low 3.4 - 5.0 [facility] Comment on above: Performed By: #### R ENAL ####[id number] [place] [address] Anion gap [Moles/Vol] 10 mmol/L Normal 10 - 20 [facility] Comment on above: Performed By: #### R ENAL ####[id number] [place] [address] Calcium [Mass/Vol] 7.3 mg/dL Low 8.6 - 10.6 [facility] Comment on above: Performed By: #### R ENAL ####[id number] [place] [address] Chloride [Moles/Vol] 106 mmol/L Normal 98 - 107 [facility] Comment on above: Performed By: #### R ENAL ####[id number] [place] [address] Creatinine [Mass/Vol] 0.77 mg/dL Normal 0.50 - 1.30 [facility] Comment on above: Performed By: #### R ENAL ####[id number] [place] [address] GFR- AM. >60 Normal >60 [facility] Comment on above: Result Comment: CALC ULATIONS OF ESTIMATED GFR ARE PERFORMED USING THE MDRD STUDY EQUATION FOR THE IDMS-TRACEABLE CREATININE METHODS. CLIN CHEM 2007;53:766-72 Performed By: #### R ENAL ####[id number] [place] [address] GFR-NON AM. >60 Normal >60 [facility] Comment on above: Performed By: #### R ENAL ####[id number] [place] [address] Glucose [Mass/Vol] 167 mg/dL High 74 - 99 [facility] Comment on above: Performed By: #### R ENAL ####[id number] [place] [address] HCO3 (Bld) [Moles/Vol] 27 mmol/L Normal 21 - 32 [facility] Comment on above: Performed By: #### R ENAL ####[id number] [place] [address] Phosphate [Mass/Vol] 2.0 mg/dL Low 2.5 - 4.9 [facility] Comment on above: Result Comment: The performance characteristics of phosphorus testing in heparinized plasma have been validated by the individual laboratory site where testing is performed. Testing on heparinized plasma is not approved by the FDA; however, such approval is not necessary. Performed By: #### R ENAL ####[id number] [place] [address] Potassium [Moles/Vol] 3.3 mmol/L Low 3.5 - 5.3 [facility] Comment on above: Performed By: #### R ENAL ####[id number] [place] [address] Sodium [Moles/Vol] 140 mmol/L Normal 136 - 145 [facility] Comment on above: Performed By: #### R ENAL ####[id number] [place] [address] Urea nitrogen [Mass/Vol] 19 mg/dL Normal 6 - 23 [facility] Comment on above: Performed By: #### R ENAL ####[id number] [place] [address] REQUEST-LEUKOREDUCED RED DANNY LSon 04-24-2018 REQUEST-LEUKOREDU MABEL RED CELLS ORDER RECD Normal [facility] Comment on above: Performed By: #### O BLEACHER GROUNDWOOD PULP ####[id number] [place] [address] TH ABDOMEN AP VIEWon 019 TH ABDOMEN AP VIEW Patient Name: ADEN PATEL STUDY: ABDOMEN AP VIEW; 04/24/2018 9:34 pm INDICATION: Signs/Symptoms: pacu. COMPARISON: 04/24/2018 ACCESSION NUMBER(S): [id number] ORDERING CLINICIAN: MATTHEW JOQAUIN FINDINGS: Enteric tube courses midline past the [...] as stated. This study was interpreted at [facility], [place], [place]. Electronically signed by: DAYNE HUBBARD MD Normal [facility] TH ABDOMEN AP VIEW Patient Name: ADEN PATEL STUDY: ABDOMEN AP VIEW; 04/24/2018 9:18 am INDICATION: Signs/Symptoms: post op, abdominal distention. COMPARISON: X-ray dated 04/22/2018 ACCESSION NUMBER(S): [id number] ORDERING CLINICIAN: GINGER ABDUL FINDINGS: Three views [...] effusion. Electronically signed by: DAYNE HUBBARD MD [facility] CHEST 1 VIEWon 04-24-2018 TH CHEST 1 VIEW Patient Name: ADEN PATEL STUDY: TH CHEST 1 VIEW; 04/24/2018 9:34 pm INDICATION: Signs/Symptoms: post op. COMPARISON: Radiograph dated 04/22/2018 ACCESSION NUMBER(S): [id number] ORDERING CLINICIAN: MATTHEW JOAQUIN FINDINGS: Enteric tube [...] as stated. This study was interpreted at [facility], [place], [place]. Electronically signed by: DAYNE HUBBARD MD Normal [facility] TYPE + SCREENon 04-24-2018 ABO TYPE A Normal [facility] Comment on above: Performed By: #### T +S ####[id number] [place] [address] RH TYPE Positive Normal [facility] Comment on above: Performed By: #### T +S ####[id number] [place] [address] [facility] Surgical Pathology Depar tmenton 04-24-2018 [facility] Surgical Pathology Department Name ADEN PATEL Pathologist: [...] up to 0.6 cm at greatest thickness. Pile Driver sections are submitted in 4 cassettes. [facility]/04/25/2018 Normal [facility] Comment on above: Performed By: #### U HCS ####[facility] Surgical Pathology [id number] [place] [address] ARTERIAL FULL PANELon 2018 Anion gap [Moles/Vol] 5 mmol/L Low 10 - 25 [facility] Comment on above: Performed By: #### A FPA3 ####[id number] [place] [address] BASE EXCESS-BLOOD 5.8 mmol/L High -2.0 - 3.0 [facility] Comment on above: Performed By: #### A FPA3 ####[id number] [place] [address] CALCIUM,IONIZED 1.08 mmol/L Low 1.10 - 1.33 [facility] Comment on above: Performed By: #### A FPA3 ####[id number] [place] [address] Chloride [Moles/Vol] 108 mmol/L High 98 - 107 [facility] Comment on above: Performed By: #### A FPA3 ####[id number] [place] [address] Glucose [Mass/Vol] 180 mg/dL High 74 - 99 [facility] Comment on above: Performed By: #### A FPA3 ####[id number] [place] [address] Hematocrit (Bld) [Volume fraction] 29.0 % Low 41.0 - 52.0 [facility] Comment on above: Performed By: #### A FPA3 ####[id number] [place] [address] HGB,CALCULATED 9.9 g/dL Low 13.5 - 17.5 [facility] Comment on above: Performed By: #### A FPA3 ####[id number] [place] [address] Lactate [Moles/Vol] 1.4 mmol/L Normal 0.4 - 2.0 [facility] Comment on above: Performed By: #### A FPA3 ####[id number] [place] [address] Oxygen (Bld) [Partial pressure] 79 mm[Hg] Low 85 - 95 [facility] Comment on above: Performed By: #### A FPA3 ####[id number] [place] [address] PCO2 40 mmHg Normal 38 - 42 [facility] Comment on above: Performed By: #### A FPA3 ####[id number] [place] [address] pH (Bld) 7.48 [pH] High 7.38 - 7.42 [facility] Comment on above: Performed By: #### A FPA3 ####[id number] [place] [address] Potassium [Moles/Vol] 3.1 mmol/L Low 3.5 - 5.3 [facility] Comment on above: Performed By: #### A FPA3 ####[id number] [place] [address] RBC (Bld) [#/Vol] 29.8 mmol/L High 22.0 - 26.0 [facility] Comment on above: Performed By: #### A FPA3 ####[id number] [place] [address] SO2 99 % Normal 94 - 100 [facility] Comment on above: Performed By: #### A FPA3 ####[id number] [place] [address] Sodium [Moles/Vol] 140 mmol/L Normal 136 - 145 [facility] Comment on above: Performed By: #### A FPA3 ####[id number] [place] [address] BLOOD CULTURE, BACTERIALon 0 04-23-2018 BLOOD CULTURE, BACTERIAL PATIENT: ADEN PATEL LOCATION: [place] [address] BILL#: [id number] : 54 AGE: SEX: M ORDERED BY: MELITA ALBARRAN SOURCE: Blood COLLECTED: 04/23/18 13:38 ANTIBIOTICS AT GUILLERMO.: RECEIVED : 04/23/18 16:55 SITE: CENTRAL LINE R E S U L T S BLOOD CULTURE, BACTERIAL FINAL 04/28/18 17:42 No Growth at 1 days No Growth at 2 days No Growth at 3 days No Growth at 4 days NO GROWTH - FINAL REPORT Normal [facility] Comment on above: Performed By: #### B LDC ####[id number] [place] [address] BLOOD CULTURE, BACTERIAL PATIENT: ADEN PATEL LOCATION: [place] [address] BILL#: [id number] : 54 AGE: SEX: M ORDERED BY: MELITA ALBARRAN SOURCE: Blood COLLECTED: 04/23/18 13:38 ANTIBIOTICS AT GUILLERMO.: RECEIVED : 04/23/18 16:57 SITE: PERIPHERAL R E S U L T S BLOOD CULTURE, BACTERIAL FINAL 04/28/18 17:42 No Growth at 1 days No Growth at 2 days No Growth at 3 days No Growth at 4 days NO GROWTH - FINAL REPORT Normal [facility] Comment on above: Performed By: #### B LDC ####[id number] [place] [address] CALCIUM, IONIZEDon 9 CALCIUM,IONIZED 1.10 mmol/L Normal 1.10 - 1.33 [facility] Comment on above: Result Comment: The performance characteristics of ionized calcium tested in heparinized plasma or serum have been validated by the individual laboratory site where testing is performed. Testing on heparinized plasma or serum is not approved by the FDA; however, such approval is not necessary. Performed By: #### I ONC1 ####[id number] [place] [address] CBCon 04-23-2018 Erythrocyte distribution width (RBC) [Ratio] 14.8 % High 11.5 - 14.5 [facility] Comment on above: Performed By: #### C BC ####[id number] [place] [address] Hematocrit (Bld) [Volume fraction] 30.5 % Low 41.0 - 52.0 [facility] Comment on above: Performed By: #### C BC ####[id number] [place] [address] Hemoglobin (Bld) [Mass/Vol] 10.2 g/dL Low 13.5 - 17.5 [facility] Comment on above: Performed By: #### C BC ####[id number] [place] [address] MCHC (RBC) [Mass/Vol] 33.4 g/dL Normal 32.0 - 36.0 [facility] Comment on above: Performed By: #### C BC ####[id number] [place] [address] MCV (RBC) [Entitic vol] 90 fL Normal 80 - 100 [facility] Comment on above: Performed By: #### C BC ####[id number] [place] [address] Nucleated RBC/100 WBC (Bld) [Ratio] 0.0 /100 WBC Normal 0.0-0.0 [facility] Comment on above: Performed By: #### C BC ####[id number] [place] [address] Platelets (Bld) [#/Vol] 236 10*3/uL Normal 150 - 450 [facility] Comment on above: Performed By: #### C BC ####[id number] [place] [address] RBC (Bld) [#/Vol] 3.39 x10E12/L Low 4.50 - 5.90 [facility] Comment on above: Performed By: #### C BC ####[id number] [place] [address] WBC (Bld) [#/Vol] 16.8 10*3/uL High 4.4 - 11.3 [facility] Comment on above: Performed By: #### C BC ####[id number] [place] [address] COAGULATION SCREENon 019 aPTT Coag (Bld) [Time] 32 s Normal 28 - 38 [facility] Comment on above: Result Comment: THE APTT IS NO LONGER USED FOR MONITORING UNFRACTIONATED HEPARIN THERAPY. FOR MONITORING HEPARIN THERAPY, USE THE HEPARIN ASSAY. Performed By: #### C OAGS ####[id number] [place] [address] INR Coag (PPP) [Relative time] 1.1 {INR} Normal 0.9 - 1.1 [facility] Comment on above: Performed By: #### C OAGS ####[id number] [place] [address] PT Coag (PPP) [Time] 12.6 s Normal 9.7 - 12.7 [facility] Comment on above: Performed By: #### C OAGS ####[id number] [place] [address] Daily Progress Note - [facility]: [facility] Service: [facility] Subjective Data: ID Statement: ADEN PATEL [...] overnight. 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 On 04/22 AM he went [...] in place - went back to OR 1/26 for exploratory laparotomy, resection of proximal jejunal [...] purple team care for now Team phone: [phone] Code Status: Code StatusFull Code Signature/Cosignature/Attesta tion: [...] Last Updated: 24-Apr-2018 14:50 by Trav Blum) Normal [facility] Daily Progress Note-Colorect al Surgeryon 04-23-2018 Daily [...] night. Objective Data: Objective Information: T PRBPSpO2 Value36.21502318/5697% Date/Time04/23 0: 2: 2: 9: 2:00 Range(36.6C [...] reported at 04/22 19:00: 7 T PRBPSpO2 Value36.07698026/5697% Date/Time04/23 0: 2: 2: 9: 2:00 Range(36.6C [...] attending surgeon Dr. Jacome. López Blake MD [place] [id number] SCIP Measures: Urinary Catheter Removed Post-Op Day [...] Jannette Hutchison) (Signed 24-Apr-2018 12:09) Authored: Signature/Cosignature/Attesta timerlene Co-Signer: Objective Data, Assessment and Plan Last Updated: 24-Apr-2018 12:09 by Jannette Hutchison) Normal [facility] FIBRINOGENon 04-23-2018 FIBRINOGEN 434 mg/dL High 200 - 400 [facility] Comment on above: Performed By: #### F IB ####[id number] [place] [address] GLUCOSE-POCTon 04-23-2018 Glucose [Mass/Vol] 153 mg/dL High 74 - 99 [facility] Comment on above: Performed By: #### G VAISHALI ####[id number] [place] [address] Glucose [Mass/Vol] 162 mg/dL High 74 - 99 [facility] Comment on above: Performed By: #### G VAISHALI ####[id number] [place] [address] Glucose [Mass/Vol] 162 mg/dL High 74 - 99 [facility] Comment on above: Performed By: #### G VAISHALI ####[id number] [place] [address] Glucose [Mass/Vol] 178 mg/dL High 74 - 99 [facility] Comment on above: Performed By: #### G VAISHALI ####[id number] [place] [address] Glucose [Mass/Vol] 164 mg/dL High 74 - 99 [facility] Comment on above: Performed By: #### G VAISHALI ####[id number] [place] [address] MAGNESIUMon 04-23-2018 Magnesium [Mass/Vol] 2.06 mg/dL Normal 1.60 - 2.40 [facility] Comment on above: Performed By: #### M G ####[id number] [place] [address] Magnesium [Mass/Vol] 1.98 mg/dL Normal 1.60 - 2.40 [facility] Comment on above: Performed By: #### M G ####[id number] [place] [address] Magnesium [Mass/Vol] 1.82 mg/dL Normal 1.60 - 2.40 [facility] Comment on above: Performed By: #### M G ####[id number] [place] [address] RENAL FUNCTION PANELon 04-23 Albumin [Mass/Vol] 2.3 g/dL Low 3.4 - 5.0 [facility] Comment on above: Performed By: #### R ENAL ####[id number] [place] [address] Anion gap [Moles/Vol] 11 mmol/L Normal 10 - 20 [facility] Comment on above: Performed By: #### R ENAL ####[id number] [place] [address] Calcium [Mass/Vol] 7.2 mg/dL Low 8.6 - 10.6 [facility] Comment on above: Performed By: #### R ENAL ####[id number] [place] [address] Chloride [Moles/Vol] 107 mmol/L Normal 98 - 107 [facility] Comment on above: Performed By: #### R ENAL ####[id number] [place] [address] Creatinine [Mass/Vol] 0.84 mg/dL Normal 0.50 - 1.30 [facility] Comment on above: Performed By: #### R ENAL ####[id number] [place] [address] GFR- AM. >60 Normal >60 [facility] Comment on above: Result Comment: CALC ULATIONS OF ESTIMATED GFR ARE PERFORMED USING THE MDRD STUDY EQUATION FOR THE IDMS-TRACEABLE CREATININE METHODS. CLIN CHEM 2007;53:766-72 Performed By: #### R ENAL ####[id number] [place] [address] GFR-NON AM. >60 Normal >60 [facility] Comment on above: Performed By: #### R ENAL ####[id number] [place] [address] Glucose [Mass/Vol] 164 mg/dL High 74 - 99 [facility] Comment on above: Performed By: #### R ENAL ####[id number] [place] [address] HCO3 (Bld) [Moles/Vol] 27 mmol/L Normal 21 - 32 [facility] Comment on above: Performed By: #### R ENAL ####[id number] [place] [address] Phosphate [Mass/Vol] 2.3 mg/dL Low 2.5 - 4.9 [facility] Comment on above: Result Comment: The performance characteristics of phosphorus testing in heparinized plasma have been validated by the individual laboratory site where testing is performed. Testing on heparinized plasma is not approved by the FDA; however, such approval is not necessary. Performed By: #### R ENAL ####[id number] [place] [address] Potassium [Moles/Vol] 3.6 mmol/L Normal 3.5 - 5.3 [facility] Comment on above: Performed By: #### R ENAL ####[id number] [place] [address] Sodium [Moles/Vol] 141 mmol/L Normal 136 - 145 [facility] Comment on above: Performed By: #### R ENAL ####[id number] [place] [address] Urea nitrogen [Mass/Vol] 21 mg/dL Normal 6 - 23 [facility] Comment on above: Performed By: #### R ENAL ####[id number] [place] [address] Albumin [Mass/Vol] 2.5 g/dL Low 3.4 - 5.0 [facility] Comment on above: Performed By: #### R ENAL ####[id number] [place] [address] Anion gap [Moles/Vol] 13 mmol/L Normal 10 - 20 [facility] Comment on above: Performed By: #### R ENAL ####[id number] [place] [address] Calcium [Mass/Vol] 7.4 mg/dL Low 8.6 - 10.6 [facility] Comment on above: Performed By: #### R ENAL ####[id number] [place] [address] Chloride [Moles/Vol] 106 mmol/L Normal 98 - 107 [facility] Comment on above: Performed By: #### R ENAL ####[id number] [place] [address] Creatinine [Mass/Vol] 0.86 mg/dL Normal 0.50 - 1.30 [facility] Comment on above: Performed By: #### R ENAL ####[id number] [place] [address] GFR- AM. >60 Normal >60 [facility] Comment on above: Result Comment: CALC ULATIONS OF ESTIMATED GFR ARE PERFORMED USING THE MDRD STUDY EQUATION FOR THE IDMS-TRACEABLE CREATININE METHODS. CLIN CHEM 2007;53:766-72 Performed By: #### R ENAL ####[id number] [place] [address] GFR-NON AM. >60 Normal >60 [facility] Comment on above: Performed By: #### R ENAL ####[id number] [place] [address] Glucose [Mass/Vol] 173 mg/dL High 74 - 99 [facility] Comment on above: Performed By: #### R ENAL ####[id number] [place] [address] HCO3 (Bld) [Moles/Vol] 29 mmol/L Normal 21 - 32 [facility] Comment on above: Performed By: #### R ENAL ####[id number] [place] [address] Phosphate [Mass/Vol] 2.5 mg/dL Normal 2.5 - 4.9 [facility] Comment on above: Result Comment: The performance characteristics of phosphorus testing in heparinized plasma have been validated by the individual laboratory site where testing is performed. Testing on heparinized plasma is not approved by the FDA; however, such approval is not necessary. Performed By: #### R ENAL ####[id number] [place] [address] Potassium [Moles/Vol] 3.6 mmol/L Normal 3.5 - 5.3 [facility] Comment on above: Performed By: #### R ENAL ####[id number] [place] [address] Sodium [Moles/Vol] 144 mmol/L Normal 136 - 145 [facility] Comment on above: Performed By: #### R ENAL ####[id number] [place] [address] Urea nitrogen [Mass/Vol] 22 mg/dL Normal 6 - 23 [facility] Comment on above: Performed By: #### R ENAL ####[id number] [place] [address] Albumin [Mass/Vol] 2.3 g/dL Low 3.4 - 5.0 [facility] Comment on above: Performed By: #### R ENAL ####[id number] [place] [address] Anion gap [Moles/Vol] 10 mmol/L Normal 10 - 20 [facility] Comment on above: Performed By: #### R ENAL ####[id number] [place] [address] Calcium [Mass/Vol] 7.4 mg/dL Low 8.6 - 10.6 [facility] Comment on above: Performed By: #### R ENAL ####[id number] [place] [address] Chloride [Moles/Vol] 107 mmol/L Normal 98 - 107 [facility] Comment on above: Performed By: #### R ENAL ####[id number] [place] [address] Creatinine [Mass/Vol] 0.93 mg/dL Normal 0.50 - 1.30 [facility] Comment on above: Performed By: #### R ENAL ####[id number] [place] [address] GFR- AM. >60 Normal >60 [facility] Comment on above: Result Comment: CALC ULATIONS OF ESTIMATED GFR ARE PERFORMED USING THE MDRD STUDY EQUATION FOR THE IDMS-TRACEABLE CREATININE METHODS. CLIN CHEM 2007;53:766-72 Performed By: #### R ENAL ####[id number] [place] [address] GFR-NON AM. >60 Normal >60 [facility] Comment on above: Performed By: #### R ENAL ####[id number] [place] [address] Glucose [Mass/Vol] 173 mg/dL High 74 - 99 [facility] Comment on above: Performed By: #### R ENAL ####[id number] [place] [address] HCO3 (Bld) [Moles/Vol] 29 mmol/L Normal 21 - 32 [facility] Comment on above: Performed By: #### R ENAL ####[id number] [place] [address] Phosphate [Mass/Vol] 2.6 mg/dL Normal 2.5 - 4.9 [facility] Comment on above: Result Comment: The performance characteristics of phosphorus testing in heparinized plasma have been validated by the individual laboratory site where testing is performed. Testing on heparinized plasma is not approved by the FDA; however, such approval is not necessary. Performed By: #### R ENAL ####[id number] [place] [address] Potassium [Moles/Vol] 3.3 mmol/L Low 3.5 - 5.3 [facility] Comment on above: Performed By: #### R ENAL ####[id number] [place] [address] Sodium [Moles/Vol] 143 mmol/L Normal 136 - 145 [facility] Comment on above: Performed By: #### R ENAL ####[id number] [place] [address] Urea nitrogen [Mass/Vol] 23 mg/dL Normal 6 - 23 [facility] Comment on above: Performed By: #### R ENAL ####[id number] [place] [address] URINE CULTURE,BACTERIALon URINE CULTURE,BACTERIAL PATIENT: ADEN PATEL LOCATION: [facility] ER#: [id number] : 54 AGE: SEX: M ORDERED BY: MELITA ALBARRAN SOURCE: URINE COLLECTED: 04/23/18 13:37 ANTIBIOTICS AT GUILLERMO.: RECEIVED : 04/23/18 16:59 SITE: Mir Catheter R E S U L T S URINE CULTURE,BACTERIAL FINAL 04/24/18 09:21 NO GROWTH Normal [facility] Comment on above: Performed By: #### U RINC ####[id number] [place] [address] ARTERIAL FULL PANELon 2018 Anion gap [Moles/Vol] 9 mmol/L Low 10 - 25 [facility] Comment on above: Performed By: #### A FPA3 ####[id number] [place] [address] BASE EXCESS-BLOOD 3.1 mmol/L High -2.0 - 3.0 [facility] Comment on above: Performed By: #### A FPA3 ####[id number] [place] [address] CALCIUM,IONIZED 1.04 mmol/L Low 1.10 - 1.33 [facility] Comment on above: Performed By: #### A FPA3 ####[id number] [place] [address] Chloride [Moles/Vol] 109 mmol/L High 98 - 107 [facility] Comment on above: Performed By: #### A FPA3 ####[id number] [place] [address] Glucose [Mass/Vol] 191 mg/dL High 74 - 99 [facility] Comment on above: Performed By: #### A FPA3 ####[id number] [place] [address] Hematocrit (Bld) [Volume fraction] 41.0 % Normal 41.0 - 52.0 [facility] Comment on above: Performed By: #### A FPA3 ####[id number] [place] [address] HGB,CALCULATED 13.9 g/dL Normal 13.5 - 17.5 [facility] Comment on above: Performed By: #### A FPA3 ####[id number] [place] [address] Lactate [Moles/Vol] 1.8 mmol/L Normal 0.4 - 2.0 [facility] Comment on above: Performed By: #### A FPA3 ####[id number] [place] [address] Oxygen (Bld) [Partial pressure] 82 mm[Hg] Low 85 - 95 [facility] Comment on above: Performed By: #### A FPA3 ####[id number] [place] [address] PCO2 38 mmHg Normal 38 - 42 [facility] Comment on above: Performed By: #### A FPA3 ####[id number] [place] [address] pH (Bld) 7.46 [pH] High 7.38 - 7.42 [facility] Comment on above: Performed By: #### A FPA3 ####[id number] [place] [address] Potassium [Moles/Vol] 3.0 mmol/L Low 3.5 - 5.3 [facility] Comment on above: Performed By: #### A FPA3 ####[id number] [place] [address] RBC (Bld) [#/Vol] 27.0 mmol/L High 22.0 - 26.0 [facility] Comment on above: Performed By: #### A FPA3 ####[id number] [place] [address] SO2 98 % Normal 94 - 100 [facility] Comment on above: Performed By: #### A FPA3 ####[id number] [place] [address] Sodium [Moles/Vol] 142 mmol/L Normal 136 - 145 [facility] Comment on above: Performed By: #### A FPA3 ####[id number] [place] [address] Anion gap [Moles/Vol] 7 mmol/L Low 10 - 25 [facility] Comment on above: Performed By: #### A FPA3 ####[id number] [place] [address] BASE EXCESS-BLOOD 8.0 mmol/L High -2.0 - 3.0 [facility] Comment on above: Performed By: #### A FPA3 ####[id number] [place] [address] CALCIUM,IONIZED 1.14 mmol/L Normal 1.10 - 1.33 [facility] Comment on above: Performed By: #### A FPA3 ####[id number] [place] [address] Chloride [Moles/Vol] 108 mmol/L High 98 - 107 [facility] Comment on above: Performed By: #### A FPA3 ####[id number] [place] [address] Glucose [Mass/Vol] 182 mg/dL High 74 - 99 [facility] Comment on above: Performed By: #### A FPA3 ####[id number] [place] [address] Hematocrit (Bld) [Volume fraction] 37.0 % Low 41.0 - 52.0 [facility] Comment on above: Performed By: #### A FPA3 ####[id number] [place] [address] HGB,CALCULATED 12.6 g/dL Low 13.5 - 17.5 [facility] Comment on above: Performed By: #### A FPA3 ####[id number] [place] [address] Lactate [Moles/Vol] 1.3 mmol/L Normal 0.4 - 2.0 [facility] Comment on above: Performed By: #### A FPA3 ####[id number] [place] [address] Oxygen (Bld) [Partial pressure] 53 mm[Hg] Low 85 - 95 [facility] Comment on above: Performed By: #### A FPA3 ####[id number] [place] [address] PCO2 35 mmHg Low 38 - 42 [facility] Comment on above: Performed By: #### A FPA3 ####[id number] [place] [address] pH (Bld) 7.55 [pH] High 7.38 - 7.42 [facility] Comment on above: Performed By: #### A FPA3 ####[id number] [place] [address] Potassium [Moles/Vol] 3.1 mmol/L Low 3.5 - 5.3 [facility] Comment on above: Performed By: #### A FPA3 ####[id number] [place] [address] RBC (Bld) [#/Vol] 30.6 mmol/L High 22.0 - 26.0 [facility] Comment on above: Performed By: #### A FPA3 ####[id number] [place] [address] SO2 92 % Low 94 - 100 [facility] Comment on above: Performed By: #### A FPA3 ####[id number] [place] [address] Sodium [Moles/Vol] 142 mmol/L Normal 136 - 145 [facility] Comment on above: Performed By: #### A FPA3 ####[id number] [place] [address] CALCIUM, IONIZEDon 9 CALCIUM,IONIZED 1.14 mmol/L Normal 1.10 - 1.33 [facility] Comment on above: Result Comment: The performance characteristics of ionized calcium tested in heparinized plasma or serum have been validated by the individual laboratory site where testing is performed. Testing on heparinized plasma or serum is not approved by the FDA; however, such approval is not necessary. Performed By: #### I ONC1 ####[id number] [place] [address] CALCIUM,IONIZED 1.12 mmol/L Normal 1.10 - 1.33 [facility] Comment on above: Result Comment: The performance characteristics of ionized calcium tested in heparinized plasma or serum have been validated by the individual laboratory site where testing is performed. Testing on heparinized plasma or serum is not approved by the FDA; however, such approval is not necessary. Performed By: #### I ONC1 ####[id number] [place] [address] CBCon 04-22-2018 Erythrocyte distribution width (RBC) [Ratio] 14.8 % High 11.5 - 14.5 [facility] Comment on above: Performed By: #### C BC ####[id number] [place] [address] Hematocrit (Bld) [Volume fraction] 29.5 % Low 41.0 - 52.0 [facility] Comment on above: Performed By: #### C BC ####[id number] [place] [address] Hemoglobin (Bld) [Mass/Vol] 10.0 g/dL Low 13.5 - 17.5 [facility] Comment on above: Performed By: #### C BC ####[id number] [place] [address] MCHC (RBC) [Mass/Vol] 33.9 g/dL Normal 32.0 - 36.0 [facility] Comment on above: Performed By: #### C BC ####[id number] [place] [address] MCV (RBC) [Entitic vol] 91 fL Normal 80 - 100 [facility] Comment on above: Performed By: #### C BC ####[id number] [place] [address] Nucleated RBC/100 WBC (Bld) [Ratio] 0.0 /100 WBC Normal 0.0-0.0 [facility] Comment on above: Performed By: #### C BC ####[id number] [place] [address] Platelets (Bld) [#/Vol] 224 10*3/uL Normal 150 - 450 [facility] Comment on above: Performed By: #### C BC ####[id number] [place] [address] RBC (Bld) [#/Vol] 3.24 x10E12/L Low 4.50 - 5.90 [facility] Comment on above: Performed By: #### C BC ####[id number] [place] [address] WBC (Bld) [#/Vol] 14.3 10*3/uL High 4.4 - 11.3 [facility] Comment on above: Performed By: #### C BC ####[id number] [place] [address] Erythrocyte distribution width (RBC) [Ratio] 14.7 % High 11.5 - 14.5 [facility] Comment on above: Performed By: #### C BC ####[id number] [place] [address] Hematocrit (Bld) [Volume fraction] 36.1 % Low 41.0 - 52.0 [facility] Comment on above: Performed By: #### C BC ####[id number] [place] [address] Hemoglobin (Bld) [Mass/Vol] 11.9 g/dL Low 13.5 - 17.5 [facility] Comment on above: Performed By: #### C BC ####[id number] [place] [address] MCHC (RBC) [Mass/Vol] 33.0 g/dL Normal 32.0 - 36.0 [facility] Comment on above: Performed By: #### C BC ####[id number] [place] [address] MCV (RBC) [Entitic vol] 94 fL Normal 80 - 100 [facility] Comment on above: Performed By: #### C BC ####[id number] [place] [address] Nucleated RBC/100 WBC (Bld) [Ratio] 0.1 /100 WBC Normal 0.0-0.0 [facility] Comment on above: Performed By: #### C BC ####[id number] [place] [address] Platelets (Bld) [#/Vol] 285 10*3/uL Normal 150 - 450 [facility] Comment on above: Performed By: #### C BC ####[id number] [place] [address] RBC (Bld) [#/Vol] 3.86 x10E12/L Low 4.50 - 5.90 [facility] Comment on above: Performed By: #### C BC ####[id number] [place] [address] WBC (Bld) [#/Vol] 15.1 10*3/uL High 4.4 - 11.3 [facility] Comment on above: Performed By: #### C BC ####[id number] [place] [address] COAGULATION SCREENon 019 aPTT Coag (Bld) [Time] 34 s Normal 28 - 38 [facility] Comment on above: Result Comment: THE APTT IS NO LONGER USED FOR MONITORING UNFRACTIONATED HEPARIN THERAPY. FOR MONITORING HEPARIN THERAPY, USE THE HEPARIN ASSAY. Performed By: #### C OAGS ####[id number] [place] [address] INR Coag (PPP) [Relative time] 1.2 {INR} High 0.9 - 1.1 [facility] Comment on above: Performed By: #### C OAGS ####[id number] [place] [address] PT Coag (PPP) [Time] 13.3 s High 9.7 - 12.7 [facility] Comment on above: Performed By: #### C OAGS ####[id number] [place] [address] aPTT Coag (Bld) [Time] 30 s Normal 28 - 38 [facility] Comment on above: Result Comment: THE APTT IS NO LONGER USED FOR MONITORING UNFRACTIONATED HEPARIN THERAPY. FOR MONITORING HEPARIN THERAPY, USE THE HEPARIN ASSAY. Performed By: #### C OAGS ####[id number] [place] [address] INR Coag (PPP) [Relative time] 1.2 {INR} High 0.9 - 1.1 [facility] Comment on above: Performed By: #### C OAGS ####[id number] [place] [address] PT Coag (PPP) [Time] 13.3 s High 9.7 - 12.7 [facility] Comment on above: Performed By: #### C OAGS ####[id number] [place] [address] Clinical Event Noteon 2018 Clinical Event Note [...] Updated: 22-Apr-2018 09:03 by Jannette Hutchison) Normal [facility] Clinical Event Note-Post Op Checkon 04-22-2018 Clinical [...] Wilcox M.D. General Surgery PGY-1 Colorectal Surgery [id number] Electronic Signatures: Pantera Wilcox (Resident)) (Signed 22-Apr-2018 20:17) Authored: Event Last Updated: 22-Apr-2018 20:17 by Pantera Wilcox (Resident)) Normal [facility] Clinical Intervention - Malcolmmason العلي 04-22-2018 Clinical Intervention - Pharmacy Pharmacist's Clinical [...] 22-Apr-2018 08:42 by Clau Anderson () Normal [facility] Daily Progress Note - Critic [facility] Daily Progress Note - [facility] Care-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 adbominal irrigation, placement of abthera. went into afib overnight this morning received metoprolol 5 mg x1, 10mg x3. Objective Data: Objective Information T PRBPSpO2 [id number]/8798% Date/Time04/22 4: 5: 5: 10: 5:00 Range(36.8C [...] 04/22 2:00: 0 Direct Arterial Blood Pressure Ztdyczea160(108 - 188)04/22 5:00 Diastolic (mm Hg)63(63 - 88)04/22 5:00 Mean (mm Hg)76(76 - 120)04/22 5:00 Pulse Pressure (mm Hg)45(45 - 100)04/22 5:00 ---- Intake and Output ----- [facility] 22, 2018 6:00 [id number] Apr 21, 2018 10:00 [id number] Apr 21, 2018 2:00 [id number] The Intake and Output Totals for the last 24 hours are: [facility] [id number] Physical Exam: Physical Exam: Neurological: alert and [...] Blood Gas Results 04/22/2018 01:42 pO253 pH7.55 lKF873 SO292 Base Excess8.0 Hhnftnlaxyz25.6 Assessment and Plan: Daily Risk Screen: Does [...] (per patient) , 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 On 04/22 AM he went [...] purple team care for now Team phone: [phone] Code Status: Code StatusFull Code Signature/Cosignature/Attesta tion: [...] detail. Electronic Signatures: Trav Blum) (Signed 24-Apr-2018 14:42) Authored: Signature/Cosignature/Attesta faisalon Co-Signer: Service, Subjective Data, Objective Data, Assessment and Plan Matthew Joaquin (Resident)) (Signed 22-Apr-2018 14:14) Authored: Service, Subjective Data, Objective Data, Assessment and Plan Last Updated: 24-Apr-2018 14:42 by Trav Blum) [facility] Daily Progress Note-Colorect al Surgeryon 04-22-2018 Daily [...] controlled. Objective Data: Objective Information: T PRBPSpO2 [id number]/8295% Date/Time04/22 8: 8: 8: 8: 8:00 Range(36.8C [...] attending surgeon Dr. Jacome. López Blake [place] [id number] SCIP Measures: Urinary Catheter Removed Post-Op Day [...] Updated: 23-Apr-2018 08:28 by Jannette Hutchison) Normal [facility] FIBRINOGENon 04-22-2018 FIBRINOGEN 470 mg/dL High 200 - 400 [facility] Comment on above: Performed By: #### F IB ####[id number] [place] [address] GLUCOSE-POCTon 04-22-2018 Glucose [Mass/Vol] 178 mg/dL High 74 - 99 [facility] Comment on above: Performed By: #### G VAISHALI ####[id number] [place] [address] Glucose [Mass/Vol] 182 mg/dL High 74 - 99 [facility] Comment on above: Performed By: #### G VAISHALI ####[id number] [id number] Glucose [Mass/Vol] 185 mg/dL High 74 - 99 [facility] Comment on above: Performed By: #### G VAISHALI ####[id number] [place] [address] MAGNESIUMon 04-22-2018 Magnesium [Mass/Vol] 2.07 mg/dL Normal 1.60 - 2.40 [facility] Comment on above: Performed By: #### M G ####[id number] [place] [address] Magnesium [Mass/Vol] 2.06 mg/dL Normal 1.60 - 2.40 [facility] Comment on above: Performed By: #### M G ####[id number] [id number] OPERATIVE REPORTon 9 OPERATIVE REPORT [facility] [address] [place] [address] Patient Name: ADEN PATEL : 1950 Date of Service: 04/22/2018 Patient Location: [facility] Patient Type: I Surgeon: Jannette Hutchison MD Report Type: Operative Reports PREOPERATIVE DIAGNOSIS: Jejunal perforation. POSTOPERATIVE DIAGNOSIS: Jejunal perforation. OPERATION/PROCEDURE: 1. Reopening of recent laparotomy. 2. Small-bowel resection. 3. Serosal patch. 4. Replacement of ABThera VAC. SURGEON: Dr. Jannette Hutchison. TEXTILE SLITTING MACHINE OPERATOR(S): Dr. López Blake. ANESTHESIA: COMPLICATIONS: None. EBL: [...] was oversewn with chromic sutures in a mlsohy-tr-ppyww fashion. The abdomen was then irrigated and [...] using interrupted 2-0 Vicryl sutures in a cqbqid-vt-nrtlp fashion against the relatively healthy though still [...] TT: 04/22/2018 09:33 PM EST DICTATION NUMBER: [id number] JUSTINO JOB NUMBER: [id number] CC: Quentin Rangel, [id number] Nolvia Colmenares MD Electronically Signed by Dr. Jannette Hutchison 04/24/2018 01:43:16 PM Normal [facility] RENAL FUNCTION PANELon 04-22 Albumin [Mass/Vol] 2.7 g/dL Low 3.4 - 5.0 [facility] Comment on above: Performed By: #### R ENAL ####[id number] [place] [address] Anion gap [Moles/Vol] 11 mmol/L Normal 10 - 20 [facility] Comment on above: Performed By: #### R ENAL ####[id number] [place] [address] Calcium [Mass/Vol] 7.9 mg/dL Low 8.6 - 10.6 [facility] Comment on above: Performed By: #### R ENAL ####[id number] [place] [address] Chloride [Moles/Vol] 109 mmol/L High 98 - 107 [facility] Comment on above: Performed By: #### R ENAL ####[id number] [place] [address] Creatinine [Mass/Vol] 0.93 mg/dL Normal 0.50 - 1.30 [facility] Comment on above: Performed By: #### R ENAL ####[id number] [place] [address] GFR- AM. >60 Normal >60 [facility] Comment on above: Result Comment: CALC ULATIONS OF ESTIMATED GFR ARE PERFORMED USING THE MDRD STUDY EQUATION FOR THE IDMS-TRACEABLE CREATININE METHODS. CLIN CHEM 2007;53:766-72 Performed By: #### R ENAL ####[id number] [place] [address] GFR-NON AM. >60 Normal >60 [facility] Comment on above: Performed By: #### R ENAL ####[id number] [place] [address] Glucose [Mass/Vol] 200 mg/dL High 74 - 99 [facility] Comment on above: Performed By: #### R ENAL ####[id number] [place] [address] HCO3 (Bld) [Moles/Vol] 30 mmol/L Normal 21 - 32 [facility] Comment on above: Performed By: #### R ENAL ####[id number] [place] [address] Phosphate [Mass/Vol] 3.1 mg/dL Normal 2.5 - 4.9 [facility] Comment on above: Result Comment: The performance characteristics of phosphorus testing in heparinized plasma have been validated by the individual laboratory site where testing is performed. Testing on heparinized plasma is not approved by the FDA; however, such approval is not necessary. Performed By: #### R ENAL ####[id number] [place] [address] Potassium [Moles/Vol] 3.5 mmol/L Normal 3.5 - 5.3 [facility] Comment on above: Performed By: #### R ENAL ####[id number] [place] [address] Sodium [Moles/Vol] 146 mmol/L High 136 - 145 [facility] Comment on above: Performed By: #### R ENAL ####[id number] [place] [address] Urea nitrogen [Mass/Vol] 24 mg/dL High 6 - 23 [facility] Comment on above: Performed By: #### R ENAL ####[id number] [place] [address] Albumin [Mass/Vol] 2.5 g/dL Low 3.4 - 5.0 [facility] Comment on above: Performed By: #### R ENAL ####[id number] [place] [address] Anion gap [Moles/Vol] 13 mmol/L Normal 10 - 20 [facility] Comment on above: Performed By: #### R ENAL ####[id number] [place] [address] Calcium [Mass/Vol] 7.8 mg/dL Low 8.6 - 10.6 [facility] Comment on above: Performed By: #### R ENAL ####[id number] [place] [address] Chloride [Moles/Vol] 107 mmol/L Normal 98 - 107 [facility] Comment on above: Performed By: #### R ENAL ####[id number] [place] [address] Creatinine [Mass/Vol] 0.97 mg/dL Normal 0.50 - 1.30 [facility] Comment on above: Performed By: #### R ENAL ####[id number] [place] [address] GFR- AM. >60 Normal >60 [facility] Comment on above: Result Comment: CALC ULATIONS OF ESTIMATED GFR ARE PERFORMED USING THE MDRD STUDY EQUATION FOR THE IDMS-TRACEABLE CREATININE METHODS. CLIN CHEM 2007;53:766-72 Performed By: #### R ENAL ####[id number] [place] [address] GFR-NON AM. >60 Normal >60 [facility] Comment on above: Performed By: #### R ENAL ####[id number] [place] [address] Glucose [Mass/Vol] 191 mg/dL High 74 - 99 [facility] Comment on above: Performed By: #### R ENAL ####[id number] [place] [address] HCO3 (Bld) [Moles/Vol] 29 mmol/L Normal 21 - 32 [facility] Comment on above: Performed By: #### R ENAL ####[id number] [place] [address] Phosphate [Mass/Vol] 1.6 mg/dL Low 2.5 - 4.9 [facility] Comment on above: Result Comment: The performance characteristics of phosphorus testing in heparinized plasma have been validated by the individual laboratory site where testing is performed. Testing on heparinized plasma is not approved by the FDA; however, such approval is not necessary. Performed By: #### R ENAL ####[id number] [place] [address] Potassium [Moles/Vol] 3.4 mmol/L Low 3.5 - 5.3 [facility] Comment on above: Performed By: #### R ENAL ####[id number] [place] [address] Sodium [Moles/Vol] 146 mmol/L High 136 - 145 [facility] Comment on above: Performed By: #### R ENAL ####[id number] [place] [address] Urea nitrogen [Mass/Vol] 24 mg/dL High 6 - 23 [facility] Comment on above: Performed By: #### R ENAL ####[id number] [place] [address] TH ABDOMEN AP VIEWon 019 TH ABDOMEN AP VIEW Patient Name: ADEN PATEL STUDY: TH ABDOMEN AP VIEW; 04/22/2018 12:52 pm INDICATION: Signs/Symptoms: post op. COMPARISON: 04/21/2018 ACCESSION NUMBER(S): [id number] ORDERING CLINICIAN: MATTHEW JOAQUIN FINDINGS: NG tube overlies the body of stomach. Nonobstructive bowel gas pattern. Limited evaluation of pneumoperitoneum on supine imaging, however no gross evidence of free air is noted. Bibasilar atelectasis. Degenerative changes of the lumbar spine. IMPRESSION: 1. NG tube overlies the body of stomach. Electronically signed by: Mason SHIELDS MD Normal [facility] TH CHEST 1 VIEWon 04-22-2018 TH CHEST 1 VIEW Patient Name: ADEN PATEL STUDY: TH CHEST 1 VIEW; 04/22/2018 7:29 am INDICATION: Signs/Symptoms: am rounds. COMPARISON: 04/21/2018 ACCESSION NUMBER(S): [id number] ORDERING CLINICIAN: JODY VALDES FINDINGS: CARDIOMEDIASTINAL SILHOUETTE: Cardiomediastinal silhouette is normal in size and configuration. LUNGS: Bibasilar atelectasis and effusions. No interval change. No pneumothorax. ABDOMEN: No remarkable upper abdominal findings. BONES: Marked degenerative disease of the shoulders. IMPRESSION: 1. Essentially stable bibasilar atelectasis and effusions. No pneumothorax. Electronically signed by: Mason SHIELDS MD Normal [facility] Surgical Pathology Depar tmenton 04-22-2018 [facility] Surgical Pathology Department Name ADEN PATEL Pathologist: [...] DO. Electronically Signed Out By MONO DUMONT MD/SWinterM By the signature on this report, the [...] lines of resection. Polyps are not present. Pile Driver sections are submitted in 4 cassettes. SAS Summary of Cassettes: Specimen Label Site A 1-4 sales representative trainee sections of diverticula sas/04/24/2018 Normal [facility] Comment on above: Performed By: #### U HCS ####[facility] Surgical Pathology [id number] [address] ARTERIAL FULL PANELon 2018 Anion gap [Moles/Vol] 7 mmol/L Low 10 - 25 [facility] Comment on above: Order Comment: criti vasiliy results read to Cherelle Gonzalez and read back to [facility], 04/21/2018 04:27 Performed By: #### A FPA3 ####[id number] [place] [address] BASE EXCESS-BLOOD 1.0 mmol/L Normal -2.0 - 3.0 [facility] Comment on above: Order Comment: criti vasiliy results read to Cherelle Gonzalez and read back to [facility], 04/21/2018 04:27 Performed By: #### A FPA3 ####[id number] [place] [address] CALCIUM,IONIZED 0.90 mmol/L Low 1.10 - 1.33 [facility] Comment on above: Order Comment: criti vasiliy results read to Cherelle Gonzalez and read back to [facility], 04/21/2018 04:27 Performed By: #### A FPA3 ####[id number] [place] [address] Chloride [Moles/Vol] 116 mmol/L High 98 - 107 [facility] Comment on above: Order Comment: criti vasiliy results read to Cherelle Gonzalez and read back to [facility], 04/21/2018 04:27 Performed By: #### A FPA3 ####[id number] [place] [address] Glucose [Mass/Vol] 89 mg/dL Normal 74 - 99 [facility] Comment on above: Order Comment: criti vasiliy results read to Cherelle Gonzalez and read back to [facility], 04/21/2018 04:27 Performed By: #### A FPA3 ####[id number] [place] [address] Hematocrit (Bld) [Volume fraction] 22.0 % Low 41.0 - 52.0 [facility] Comment on above: Order Comment: criti vasiliy results read to Cherelle Gonzalez and read back to [facility], 04/21/2018 04:27 Performed By: #### A FPA3 ####[id number] [place] [address] HGB,CALCULATED 7.5 g/dL Low 13.5 - 17.5 [facility] Comment on above: Order Comment: criti vasiliy results read to Cherelle Gonzalez and read back to [facility], 04/21/2018 04:27 Performed By: #### A FPA3 ####[id number] [place] [address] Lactate [Moles/Vol] 0.8 mmol/L Normal 0.4 - 2.0 [facility] Comment on above: Order Comment: criti vasiliy results read to Cherelle Gonzalez and read back to [facility], 04/21/2018 04:27 Performed By: #### A FPA3 ####[id number] [place] [address] Oxygen (Bld) [Partial pressure] 72 mm[Hg] Low 85 - 95 [facility] Comment on above: Order Comment: criti vasiliy results read to Cherelle Gonzalez and read back to [facility], 04/21/2018 04:27 Performed By: #### A FPA3 ####[id number] [place] [address] PCO2 29 mmHg Low 38 - 42 [facility] Comment on above: Order Comment: criti vasiliy results read to Cherelle Gonzalez and read back to [facility], 04/21/2018 04:27 Performed By: #### A FPA3 ####[id number] [place] [address] pH (Bld) 7.52 [pH] High 7.38 - 7.42 [facility] Comment on above: Order Comment: criti vasiliy results read to Cherelle Gonzalez and read back to [facility], 04/21/2018 04:27 Performed By: #### A FPA3 ####[id number] [place] [address] Potassium [Moles/Vol] 2.7 mmol/L Critically low 3.5 - 5.3 [facility] Comment on above: Order Comment: criti vasiliy results read to Cherelle Gonzalez and read back to [facility], 04/21/2018 04:27 Result Comment: crit ical results read to Cherelle Gonzalez and read back to [facility], 04/21/2018 04:27 Performed By: #### A FPA3 ####[id number] [place] [address] RBC (Bld) [#/Vol] 23.7 mmol/L Normal 22.0 - 26.0 [facility] Comment on above: Order Comment: criti vasiliy results read to Cherelle Gonzalez and read back to [facility], 04/21/2018 04:27 Performed By: #### A FPA3 ####[id number] [place] [address] SO2 97 % Normal 94 - 100 [facility] Comment on above: Order Comment: criti vasiliy results read to Cherelle Gonzalez and read back to [facility], 04/21/2018 04:27 Performed By: #### A FPA3 ####[id number] [place] [address] Sodium [Moles/Vol] 144 mmol/L Normal 136 - 145 [facility] Comment on above: Order Comment: criti vasiliy results read to Cherelle Gonzalez and read back to [facility], 04/21/2018 04:27 Performed By: #### A FPA3 ####[id number] [place] [address] CALCIUM, IONIZEDon 9 CALCIUM,IONIZED 0.92 mmol/L Low 1.10 - 1.33 [facility] Comment on above: Result Comment: The performance characteristics of ionized calcium tested in heparinized plasma or serum have been validated by the individual laboratory site where testing is performed. Testing on heparinized plasma or serum is not approved by the FDA; however, such approval is not necessary. Performed By: #### I ONC1 ####[id number] [place] [address] CALCIUM,IONIZED 1.07 mmol/L Low 1.10 - 1.33 [facility] Comment on above: Result Comment: The performance characteristics of ionized calcium tested in heparinized plasma or serum have been validated by the individual laboratory site where testing is performed. Testing on heparinized plasma or serum is not approved by the FDA; however, such approval is not necessary. Performed By: #### I ONC1 ####[id number] [place] [address] CBCon 04-21-2018 Erythrocyte distribution width (RBC) [Ratio] 14.8 % High 11.5 - 14.5 [facility] Comment on above: Performed By: #### C BC ####[id number] [place] [address] Hematocrit (Bld) [Volume fraction] 35.2 % Low 41.0 - 52.0 [facility] Comment on above: Performed By: #### C BC ####[id number] [place] [address] Hemoglobin (Bld) [Mass/Vol] 11.3 g/dL Low 13.5 - 17.5 [facility] Comment on above: Performed By: #### C BC ####[id number] [place] [address] MCHC (RBC) [Mass/Vol] 32.1 g/dL Normal 32.0 - 36.0 [facility] Comment on above: Performed By: #### C BC ####[id number] [place] [address] MCV (RBC) [Entitic vol] 93 fL Normal 80 - 100 [facility] Comment on above: Performed By: #### C BC ####[id number] [place] [address] Nucleated RBC/100 WBC (Bld) [Ratio] 0.0 /100 WBC Normal 0.0-0.0 [facility] Comment on above: Performed By: #### C BC ####[id number] [place] [address] Platelets (Bld) [#/Vol] 208 10*3/uL Normal 150 - 450 [facility] Comment on above: Performed By: #### C BC ####[id number] [place] [address] RBC (Bld) [#/Vol] 3.79 x10E12/L Low 4.50 - 5.90 [facility] Comment on above: Performed By: #### C BC ####[id number] [place] [address] WBC (Bld) [#/Vol] 10.9 10*3/uL Normal 4.4 - 11.3 [facility] Comment on above: Performed By: #### C BC ####[id number] [place] [address] COAGULATION SCREENon 019 aPTT Coag (Bld) [Time] 30 s Normal 28 - 38 [facility] Comment on above: Result Comment: THE APTT IS NO LONGER USED FOR MONITORING UNFRACTIONATED HEPARIN THERAPY. FOR MONITORING HEPARIN THERAPY, USE THE HEPARIN ASSAY. Performed By: #### C OAGS ####[id number] [place] [address] INR Coag (PPP) [Relative time] 1.1 {INR} Normal 0.9 - 1.1 [facility] Comment on above: Performed By: #### C OAGS ####[id number] [place] [address] PT Coag (PPP) [Time] 12.1 s Normal 9.7 - 12.7 [facility] Comment on above: Performed By: #### C OAGS ####[id number] [place] [address] Daily Progress Note - Critic al Care-SICUon [...] vomiting. Objective Data: Objective Information T PRBPSpO2 [id number]/57652% Date/Time04/21 4: 6: 6: 6: 6:00 Range(36.5C [...] 04/21 5:00: 8 Direct Arterial Blood Pressure Mnqnzgus832(135 - 192)04/21 6:00 Diastolic (mm Hg)84(66 - 84)04/21 6:00 Mean (mm Hg)113(91 - 116)04/21 6:00 Pulse Pressure (mm Hg)81(59 - 114)04/21 6:00 Rczlotxz789(135 - 192)04/20 11:04 Diastolic (mm Hg)76(66 - 84)04/20 11:04 Mean (mm Hg)102(91 - 116)04/20 11:04 Pulse Pressure (mm Hg)59(59 - 114)04/20 11:04 ---- Intake and Output ----- [facility] Apr 21, 2018 6:00 [id number] Apr 20, 2018 10:00 [id number] Apr 20, 2018 2:00 [id number] The Intake and Output Totals for the last 24 hours are: [facility] [id number] Drain and tube details (included in I&O [...] Blood Gas Results 04/21/2018 04:20 pO272 pH7.52 aXQ111 SO297 Base Excess1.0 Qnbnkcuhffg57.7 Assessment and Plan: Daily Risk Screen: Does [...] (per patient) , 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 Objective Data: Objective Information: T PRBPSpO2 [id number]/8796% Date/Time04/21 12: 14: 14: 10: 14:00 Range(36.5C [...] Patient discussed with attending surgeon Dr. Colmenares. [facility] General Surgery, PGY-2 [place] [address] Signature/Cosignature/Attesta tion: Attending AttalbertoI saw and evaluated the patient. I personally [...] Updated: 22-Apr-2018 16:15 by Nolvia Colmenares) Normal [facility] FIBRINOGENon 04-21-2018 FIBRINOGEN 529 mg/dL High 200 - 400 [facility] Comment on above: Performed By: #### F IB ####[id number] [place] [address] GLUCOSE-POCTon 04-21-2018 Glucose [Mass/Vol] 104 mg/dL High 74 - 99 [facility] Comment on above: Performed By: #### G VAISHALI ####[id number] [place] [address] Glucose [Mass/Vol] 102 mg/dL High 74 - 99 [facility] Comment on above: Performed By: #### G VAISHALI ####[id number] [place] [address] Glucose [Mass/Vol] 109 mg/dL High 74 - 99 [facility] Comment on above: Performed By: #### G VAISHALI ####[id number] [place] [address] MAGNESIUMon 04-21-2018 Magnesium [Mass/Vol] 2.01 mg/dL Normal 1.60 - 2.40 [facility] Comment on above: Performed By: #### M G ####[id number] [place] [address] Magnesium [Mass/Vol] 1.97 mg/dL Normal 1.60 - 2.40 [facility] Comment on above: Performed By: #### M G ####[id number] [place] [address] Nutrition Therapy-Assessment on 04-21-2018 Nutrition Therapy-Assessmen t Assessment Subjective/Objective: Note Type: Assessment Note Authored by: Registered Dietitian Mortician Investigator Pager Number: [phone] Nutrition Note: 67yo M with PMH of [...] reviewed these laboratory results: Glucose_POCT Trending View Oaucms05-Ajr-2587 08:46:00 20-Apr-2018 23:03:00 20-Apr-2018 15:30:00 20-Apr-2018 10:57:00 20-Apr-2018 09:19:00 20-Apr-2018 08:09:00 20-Apr-2018 03:26:00 20-Apr-2018 00:32:00 19-Apr-2018 20:20:00 19-Apr-2018 16:19:00 19-Apr-2018 11:24:00 Glucose-MEJH217 H 109 H 111 H 98 128 H 75 81 74 81 81 76 Complete Blood Count Trending View Hohval28-Lws-5200 04:05:00 20-Apr-2018 21:16:00 20-Apr-2018 03:36:00 White Blood Cell Count10.9 9.1 8.8 Nucleated Erythrocyte Count0.0 0.0 0.0 Red Blood Cell Count3.79 L 3.54 L 3.25 L HGB11.3 L 10.9 L 9.8 L HCT35.2 L 33.7 L 30.1 L MCV93 95 93 MCHC32.1 32.3 32.6 KKV212 176 162 RDW-CV14.8 H 14.8 H 14.9 H Renal Function Panel Trending View Fokbkw21-Vhy-7000 04:05:00 20-Apr-2018 15:33:00 20-Apr-2018 03:35:00 19-Apr-2018 18:04:00 Glucose, Cxefy949 H 112 H 66 L 70 L [...] Level 1.07 L Magnesium, Serum Trending View Mrajat85-Rvs-2126 04:05:00 20-Apr-2018 15:33:00 20-Apr-2018 03:35:00 Magnesium, Serum1.97 [...] present at this time Estimated Needs: kcals/day: 1807-8399 gms protein/day: 120+ mL fluid/day: 6855-3910 or per MD Nutrition Diagnosis: Diagnosis1 new. [...] Support: yes TPN Electronic Signatures: Mariangel Gtz (HERRERA, RITA) (Signed 27-Apr-2018 08:44) Authored: Assessment Subjective/Objective, Nutrition Focused Physical Findings, Estimated Needs, Nutrition Diagnosis, Nutrition Interventions, Nutrition Goals, Nutrition Recommendations, Parenteral Nutrition Recommendations, Dietitian Monitoring and Evaluation Plan, Time Spent/Nutrition Support Last Updated: 27-Apr-2018 08:44 by Mariangel Gtz (ENMANUELN, RITA) Normal [facility] RENAL FUNCTION PANELon 04-21 Albumin [Mass/Vol] 2.1 g/dL Low 3.4 - 5.0 [facility] Comment on above: Performed By: #### R ENAL ####[id number] [place] [address] Anion gap [Moles/Vol] 12 mmol/L Normal 10 - 20 [facility] Comment on above: Performed By: #### R ENAL ####[id number] [place] [address] Calcium [Mass/Vol] 6.2 mg/dL Low 8.6 - 10.6 [facility] Comment on above: Performed By: #### R ENAL ####[id number] [place] [address] Chloride [Moles/Vol] 115 mmol/L High 98 - 107 [facility] Comment on above: Performed By: #### R ENAL ####[id number] [place] [address] Creatinine [Mass/Vol] 0.87 mg/dL Normal 0.50 - 1.30 [facility] Comment on above: Performed By: #### R ENAL ####[id number] [place] [address] GFR- AM. >60 Normal >60 [facility] Comment on above: Result Comment: CALC ULATIONS OF ESTIMATED GFR ARE PERFORMED USING THE MDRD STUDY EQUATION FOR THE IDMS-TRACEABLE CREATININE METHODS. CLIN CHEM 2007;53:766-72 Performed By: #### R ENAL ####[id number] [place] [address] GFR-NON AM. >60 Normal >60 [facility] Comment on above: Performed By: #### R ENAL ####[id number] [place] [address] Glucose [Mass/Vol] 100 mg/dL High 74 - 99 [facility] Comment on above: Performed By: #### R ENAL ####[id number] [place] [address] HCO3 (Bld) [Moles/Vol] 26 mmol/L Normal 21 - 32 [facility] Comment on above: Performed By: #### R ENAL ####[id number] [place] [address] Phosphate [Mass/Vol] 1.9 mg/dL Low 2.5 - 4.9 [facility] Comment on above: Result Comment: The performance characteristics of phosphorus testing in heparinized plasma have been validated by the individual laboratory site where testing is performed. Testing on heparinized plasma is not approved by the FDA; however, such approval is not necessary. Performed By: #### R ENAL ####[id number] [place] [address] Potassium [Moles/Vol] 3.0 mmol/L Low 3.5 - 5.3 [facility] Comment on above: Performed By: #### R ENAL ####[id number] [place] [address] Sodium [Moles/Vol] 150 mmol/L High 136 - 145 [facility] Comment on above: Performed By: #### R ENAL ####[id number] [place] [address] Urea nitrogen [Mass/Vol] 23 mg/dL Normal 6 - 23 [facility] Comment on above: Performed By: #### R ENAL ####[id number] [place] [address] Albumin [Mass/Vol] 2.6 g/dL Low 3.4 - 5.0 [facility] Comment on above: Performed By: #### R ENAL ####[id number] [place] [address] Anion gap [Moles/Vol] 16 mmol/L Normal 10 - 20 [facility] Comment on above: Performed By: #### R ENAL ####[id number] [place] [address] Calcium [Mass/Vol] 7.5 mg/dL Low 8.6 - 10.6 [facility] Comment on above: Performed By: #### R ENAL ####[id number] [place] [address] Chloride [Moles/Vol] 106 mmol/L Normal 98 - 107 [facility] Comment on above: Performed By: #### R ENAL ####[id number] [place] [address] Creatinine [Mass/Vol] 1.12 mg/dL Normal 0.50 - 1.30 [facility] Comment on above: Performed By: #### R ENAL ####[id number] [place] [address] GFR- AM. >60 Normal >60 [facility] Comment on above: Result Comment: CALC ULATIONS OF ESTIMATED GFR ARE PERFORMED USING THE MDRD STUDY EQUATION FOR THE IDMS-TRACEABLE CREATININE METHODS. CLIN CHEM 2007;53:766-72 Performed By: #### R ENAL ####[id number] [place] [address] GFR-NON AM. >60 Normal >60 [facility] Comment on above: Performed By: #### R ENAL ####[id number] [place] [address] Glucose [Mass/Vol] 115 mg/dL High 74 - 99 [facility] Comment on above: Performed By: #### R ENAL ####[id number] [place] [address] HCO3 (Bld) [Moles/Vol] 29 mmol/L Normal 21 - 32 [facility] Comment on above: Performed By: #### R ENAL ####[id number] [place] [address] Phosphate [Mass/Vol] 2.6 mg/dL Normal 2.5 - 4.9 [facility] Comment on above: Result Comment: The performance characteristics of phosphorus testing in heparinized plasma have been validated by the individual laboratory site where testing is performed. Testing on heparinized plasma is not approved by the FDA; however, such approval is not necessary. Performed By: #### R ENAL ####[id number] [place] [address] Potassium [Moles/Vol] 3.7 mmol/L Normal 3.5 - 5.3 [facility] Comment on above: Performed By: #### R ENAL ####[id number] [place] [address] Sodium [Moles/Vol] 147 mmol/L High 136 - 145 [facility] Comment on above: Performed By: #### R ENAL ####[id number] [place] [address] Urea nitrogen [Mass/Vol] 28 mg/dL High 6 - 23 [facility] Comment on above: Performed By: #### R ENAL ####[id number] [place] [address] TH ABDOMEN AP VIEWon 019 TH ABDOMEN AP VIEW Patient Name: ADEN PATEL STUDY: TH ABDOMEN AP VIEW; 04/21/2018 3:04 pm INDICATION: Signs/Symptoms: reposition of NG tube, post surgical patient in discontinuity/ open abdomen. COMPARISON: 04/21/2018 ACCESSION NUMBER(S): [id number] ORDERING CLINICIAN: YOVANY AYERS FINDINGS: Partially visualized [...] as stated. This study was interpreted at [facility], [place], [place]. Electronically signed by: KIKI QUEZADA MD Normal [facility] TH ABDOMEN AP VIEW Patient Name: ADEN PATEL STUDY: ABDOMEN AP VIEW; 04/21/2018 6:57 am INDICATION: Signs/Symptoms: NGT placement. COMPARISON: Radiograph from 04/17/2018 ACCESSION NUMBER(S): [id number] ORDERING CLINICIAN: MARQUEZ BRONSON FINDINGS: Enteric tube [...] Electronically signed by: KIKI QUEZADA MD Normal [facility] CHEST 1 VIEWon 04-21-2018 TH CHEST 1 VIEW Patient Name: ADEN PATEL STUDY: TH CHEST 1 VIEW; 04/21/2018 6:57 am INDICATION: Signs/Symptoms: AM rounds. COMPARISON: Chest radiograph from 04/20/2018 ACCESSION NUMBER(S): [id number] ORDERING CLINICIAN: CLARA PADGETT FINDINGS: Enteric tube [...] Electronically signed by: KIKI QUEZADA MD Normal [facility] TRIGLYCERIDESon 04-21-2018 Triglyceride [Mass/Vol] 91 mg/dL Normal 0 - 149 [facility] Comment on above: Result Comment: . AGE [...] Metamizole dosing. Performed By: #### T RIG ####[id number] [place] [address] CBCon 04-20-2018 Erythrocyte distribution width (RBC) [Ratio] 14.8 % High 11.5 - 14.5 [facility] Comment on above: Performed By: #### C BC ####[id number] [place] [address] Hematocrit (Bld) [Volume fraction] 33.7 % Low 41.0 - 52.0 [facility] Comment on above: Performed By: #### C BC ####[id number] [place] [address] Hemoglobin (Bld) [Mass/Vol] 10.9 g/dL Low 13.5 - 17.5 [facility] Comment on above: Performed By: #### C BC ####[id number] [place] [address] MCHC (RBC) [Mass/Vol] 32.3 g/dL Normal 32.0 - 36.0 [facility] Comment on above: Performed By: #### C BC ####[id number] [place] [address] MCV (RBC) [Entitic vol] 95 fL Normal 80 - 100 [facility] Comment on above: Performed By: #### C BC ####[id number] [place] [address] Nucleated RBC/100 WBC (Bld) [Ratio] 0.0 /100 WBC Normal 0.0-0.0 [facility] Comment on above: Performed By: #### C BC ####[id number] [place] [address] Platelets (Bld) [#/Vol] 176 10*3/uL Normal 150 - 450 [facility] Comment on above: Performed By: #### C BC ####[id number] [place] [address] RBC (Bld) [#/Vol] 3.54 x10E12/L Low 4.50 - 5.90 [facility] Comment on above: Performed By: #### C BC ####[id number] [place] [address] WBC (Bld) [#/Vol] 9.1 10*3/uL Normal 4.4 - 11.3 [facility] Comment on above: Performed By: #### C BC ####[id number] [place] [address] Erythrocyte distribution width (RBC) [Ratio] 14.9 % High 11.5 - 14.5 [facility] Comment on above: Performed By: #### C BC ####[id number] [place] [address] Hematocrit (Bld) [Volume fraction] 30.1 % Low 41.0 - 52.0 [facility] Comment on above: Performed By: #### C BC ####[id number] [place] [address] Hemoglobin (Bld) [Mass/Vol] 9.8 g/dL Low 13.5 - 17.5 [facility] Comment on above: Performed By: #### C BC ####[id number] [place] [address] MCHC (RBC) [Mass/Vol] 32.6 g/dL Normal 32.0 - 36.0 [facility] Comment on above: Performed By: #### C BC ####[id number] [place] [address] MCV (RBC) [Entitic vol] 93 fL Normal 80 - 100 [facility] Comment on above: Performed By: #### C BC ####[id number] [place] [address] Nucleated RBC/100 WBC (Bld) [Ratio] 0.0 /100 WBC Normal 0.0-0.0 [facility] Comment on above: Performed By: #### C BC ####[id number] [place] [address] Platelets (Bld) [#/Vol] 162 10*3/uL Normal 150 - 450 [facility] Comment on above: Performed By: #### C BC ####[id number] [place] [address] RBC (Bld) [#/Vol] 3.25 x10E12/L Low 4.50 - 5.90 [facility] Comment on above: Performed By: #### C BC ####[id number] [place] [address] WBC (Bld) [#/Vol] 8.8 10*3/uL Normal 4.4 - 11.3 [facility] Comment on above: Performed By: #### C BC ####[id number] [place] [address] COAGULATION SCREENon 019 aPTT Coag (Bld) [Time] 29 s Normal 28 - 38 [facility] Comment on above: Result Comment: Note new reference range as of 01/17/2018. THE APTT IS NO LONGER USED FOR MONITORING UNFRACTIONATED HEPARIN THERAPY. FOR MONITORING HEPARIN THERAPY, USE THE HEPARIN ASSAY. Performed By: #### C OAGS ####[id number] [place] [address] INR Coag (PPP) [Relative time] 1.0 {INR} Normal 0.9 - 1.1 [facility] Comment on above: Performed By: #### C OAGS ####[id number] [place] [address] PT Coag (PPP) [Time] 11.2 s Normal 9.7 - 12.7 [facility] Comment on above: Result Comment: Note new reference range as of 01/17/2018. Performed By: #### C OAGS ####[id number] [place] [address] Daily Progress Note - Critic al Care-SICU , [facility] 04-20-2018 [facility]: [facility] Service: [facility] Subjective Data: ID Statement: ADEN PATEL is a 67 year old Male who is Hospital Day # 8 and ICU Day #5 and POD #3 for Exploratory laparotomy, evacuation hematoma, omentectomy, abthera wound vac. No acute events overnight. Received labetalol and hydralazine for hypertenion. Objective Data: Objective Information T PRBPSpO2 [id number]/6599% Date/Time04/20 4: 6: 6: 19: 6:00 Range(37.1C - 37.6C [...] 04/20 4:00: 0 Direct Arterial Blood Pressure Frttxafq220(139 - 195)04/20 6:00 Diastolic (mm Hg)74(61 - 91)04/20 6:00 Mean (mm Hg)102(83 - 123)04/20 6:00 Pulse Pressure (mm Hg)95(78 - 119)04/20 6:00 ---- Intake and Output ----- 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 Objective Data: Objective Information: T PRBPSpO2 Value37.45515217/6596% Date/Time04/20 8: 9: 9: 19: 9:00 Range(37.1C - 37.6C ) (68 - 89 ) (12 - 22 ) (145 - 145 )/ (65 - 65 ) (93% - 99% ) As of 20-Apr-2018 08:00:00, patient is on 6 L/min of oxygen via nasal cannula with humidification. Highest temp of 37.6 C was recorded at 04/19 12:00 ---- Intake and Output ----- Mn[facility]Dy[facility] Apr 20, 2018 6:00 [id number] Apr 19, 2018 10:00 pm820.99803-006 Apr 19, 2018 2:00 pm761.31810-811 The Intake and Output Totals for the last 24 hours are: IntakeOutputNet [id number] Intake Output IV Fluids 2000 mL Urine [...] reviewed these laboratory results: Glucose_POCT Trending View [id number]-Lry-1501 09:19:00 20-Apr-2018 08:09:00 Glucose-VSNB701 H 75 Coagulation Screen 20-Apr-2018 03:37:00 ResultValue [...] Marquez Bronson General Surgery, PGY-2 [place] [address] Signature/Cosignature/Attesta tion: Attending AttestationI saw and evaluated [...] Updated: 22-Apr-2018 16:12 by Nolvia Colmenares) Normal [facility] GLUCOSE-POCTon 04-20-2018 Glucose [Mass/Vol] 111 mg/dL High 74 - 99 [facility] Comment on above: Performed By: #### G VAISHALI ####[id number] [place] [address] Glucose [Mass/Vol] 98 mg/dL Normal 74 - 99 [facility] Comment on above: Performed By: #### G VAISHALI ####[id number] [place] [address] Glucose [Mass/Vol] 128 mg/dL High 74 - 99 [facility] Comment on above: Performed By: #### G VAISHALI ####[id number] [place] [address] Glucose [Mass/Vol] 75 mg/dL Normal 74 - 99 [facility] Comment on above: Performed By: #### G VAISHALI ####[id number] [place] [address] Glucose [Mass/Vol] 81 mg/dL Normal 74 - 99 [facility] Comment on above: Performed By: #### G VAISHALI ####[id number] [place] [address] Glucose [Mass/Vol] 74 mg/dL Normal 74 - 99 [facility] Comment on above: Performed By: #### G VAIHSALI ####[id number] [place] [address] History and Physical - Surgi vasiliy Update [...] Updated: 22-Apr-2018 16:13 by Nolvia Colmenares) Normal [facility] MAGNESIUMon 04-20-2018 Magnesium [Mass/Vol] 1.94 mg/dL Normal 1.60 - 2.40 [facility] Comment on above: Performed By: #### M G ####[id number] [place] [address] Magnesium [Mass/Vol] 1.98 mg/dL Normal 1.60 - 2.40 [facility] Comment on above: Performed By: #### M G ####[id number] [id number] OPERATIVE REPORTon 9 OPERATIVE REPORT [facility] [id number] [place] [id number] Patient Name: ADEN PATEL : 1950 Date of Service: 04/20/2018 Patient Location: [place] [id number] Patient Type: I Surgeon: Nolvia Colmenares MD Report Type: Operative Reports PREOPERATIVE DIAGNOSIS: Ischemic small bowel and open abdomen. 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 OPERATION/PROCEDURE: 1. Exploratory laparotomy. 2. Small bowel resection. 3. Placement of ABThera wound VAC. SURGEON: Nolvia Colmenares MD TEXTILE SLITTING MACHINE OPERATOR(S): López Blake MD ANESTHESIA: General endotracheal. INDICATIONS: [...] described above. Dr. Blake was the surgical instruments inspector. Nolvia Colmenares MD EST TT: 05/04/2018 01:56 AM EST DICTATION NUMBER: [id number] SPHERIS JOB NUMBER: [id number] CC: Quentin Juan Carlos, [id number] Electronically Signed by Dr. Nolvia Colmenares 05/16/2018 09:03:06 AM Normal [facility] Preop Checkliston 04-20-2018 Preop Checklist Preop Checklist: Preop Checklist: Arrival [id number] Arrival Time10:55 Procedure Typebowel procedure NPO [id number] 23:00 NPO Commentr nares ng to low [...] 20-Apr-2018 11:12 by Ruth Davila (GORDON) Normal [facility] RENAL FUNCTION PANELon 04-20 Albumin [Mass/Vol] 2.9 g/dL Low 3.4 - 5.0 [facility] Comment on above: Performed By: #### R ENAL ####[id number] [place] [address] Anion gap [Moles/Vol] 17 mmol/L Normal 10 - 20 [facility] Comment on above: Performed By: #### R ENAL ####[id number] [place] [address] Calcium [Mass/Vol] 7.8 mg/dL Low 8.6 - 10.6 [facility] Comment on above: Performed By: #### R ENAL ####[id number] [place] [address] Chloride [Moles/Vol] 105 mmol/L Normal 98 - 107 [facility] Comment on above: Performed By: #### R ENAL ####[id number] [place] [address] Creatinine [Mass/Vol] 1.10 mg/dL Normal 0.50 - 1.30 [facility] Comment on above: Performed By: #### R ENAL ####[id number] [place] [address] GFR- AM. >60 Normal >60 [facility] Comment on above: Result Comment: CALC ULATIONS OF ESTIMATED GFR ARE PERFORMED USING THE MDRD STUDY EQUATION FOR THE IDMS-TRACEABLE CREATININE METHODS. CLIN CHEM 2007;53:766-72 Performed By: #### R ENAL ####[id number] [place] [address] GFR-NON AM. >60 Normal >60 [facility] Comment on above: Performed By: #### R ENAL ####[id number] [place] [address] Glucose [Mass/Vol] 112 mg/dL High 74 - 99 [facility] Comment on above: Performed By: #### R ENAL ####[id number] [place] [address] HCO3 (Bld) [Moles/Vol] 30 mmol/L Normal 21 - 32 [facility] Comment on above: Performed By: #### R ENAL ####[id number] [place] [address] Phosphate [Mass/Vol] 3.2 mg/dL Normal 2.5 - 4.9 [facility] Comment on above: Result Comment: The performance characteristics of phosphorus testing in heparinized plasma have been validated by the individual laboratory site where testing is performed. Testing on heparinized plasma is not approved by the FDA; however, such approval is not necessary. Performed By: #### R ENAL ####[id number] [place] [address] Potassium [Moles/Vol] 3.5 mmol/L Normal 3.5 - 5.3 [facility] Comment on above: Performed By: #### R ENAL ####[id number] [place] [address] Sodium [Moles/Vol] 148 mmol/L High 136 - 145 [facility] Comment on above: Performed By: #### R ENAL ####[id number] [place] [address] Urea nitrogen [Mass/Vol] 30 mg/dL High 6 - 23 [facility] Comment on above: Performed By: #### R ENAL ####[id number] [place] [address] Albumin [Mass/Vol] 2.5 g/dL Low 3.4 - 5.0 [facility] Comment on above: Performed By: #### R ENAL ####[id number] [place] [address] Anion gap [Moles/Vol] 18 mmol/L Normal 10 - 20 [facility] Comment on above: Performed By: #### R ENAL ####[id number] [place] [address] Calcium [Mass/Vol] 7.6 mg/dL Low 8.6 - 10.6 [facility] Comment on above: Performed By: #### R ENAL ####[id number] [place] [address] Chloride [Moles/Vol] 105 mmol/L Normal 98 - 107 [facility] Comment on above: Performed By: #### R ENAL ####[id number] [place] [address] Creatinine [Mass/Vol] 1.37 mg/dL High 0.50 - 1.30 [facility] Comment on above: Performed By: #### R ENAL ####[id number] [place] [address] GFR- AM. 63 mL/min/1.73m2 Normal >60 [facility] Comment on above: Result Comment: CALC ULATIONS OF ESTIMATED GFR ARE PERFORMED USING THE MDRD STUDY EQUATION FOR THE IDMS-TRACEABLE CREATININE METHODS. CLIN CHEM 2007;53:766-72 Performed By: #### R ENAL ####[id number] [place] [address] GFR-NON AM. 52 mL/min/1.73m2 Abnormal >60 [facility] Comment on above: Performed By: #### R ENAL ####[id number] [place] [address] Glucose [Mass/Vol] 66 mg/dL Low 74 - 99 [facility] Comment on above: Performed By: #### R ENAL ####[id number] [place] [address] HCO3 (Bld) [Moles/Vol] 27 mmol/L Normal 21 - 32 [facility] Comment on above: Performed By: #### R ENAL ####[id number] [place] [address] Phosphate [Mass/Vol] 3.0 mg/dL Normal 2.5 - 4.9 [facility] Comment on above: Result Comment: The performance characteristics of phosphorus testing in heparinized plasma have been validated by the individual laboratory site where testing is performed. Testing on heparinized plasma is not approved by the FDA; however, such approval is not necessary. Performed By: #### R ENAL ####[id number] [place] [address] Potassium [Moles/Vol] 3.6 mmol/L Normal 3.5 - 5.3 [facility] Comment on above: Result Comment: MILD HEMOLYSIS DETECTED. The result may be falsely elevated due to hemolysis or other interferents. Clinical correlation is recommended. Repeat testing may be considered. Performed By: #### R ENAL ####[id number] [place] [address] Sodium [Moles/Vol] 146 mmol/L High 136 - 145 [facility] Comment on above: Performed By: #### R ENAL ####[id number] [place] [address] Urea nitrogen [Mass/Vol] 37 mg/dL High 6 - 23 [facility] Comment on above: Performed By: #### R ENAL ####[id number] [place] [address] TH CHEST 1 VIEWon 04-20-2018 TH CHEST 1 VIEW Patient Name: ADEN PATEL STUDY: TH CHEST 1 VIEW; 04/20/2018 7:14 am INDICATION: Signs/Symptoms: AM rounds. COMPARISON: 04/19/2018 ACCESSION NUMBER(S): [id number] ORDERING CLINICIAN: CLARA PADGETT FINDINGS: Patient has been extubated. CARDIOMEDIASTINAL SILHOUETTE: Cardiomediastinal silhouette is normal in size and configuration. LUNGS: Bibasilar atelectasis and effusions. No pneumothorax. No significant interval change. ABDOMEN: No remarkable upper abdominal findings. BONES: No acute osseous changes. IMPRESSION: 1. No significant change in bibasilar atelectasis and effusions status post extubation. Electronically signed by: Mason SHIELDS MD Normal [facility] TYPE + SCREENon 04-20-2018 ABO TYPE A Normal [facility] Comment on above: Performed By: #### T +S ####[id number] [place] [address] RH TYPE Positive Normal [facility] Comment on above: Performed By: #### T +S ####[id number] [place] [address] [facility] Surgical Pathology Depar tmenton 04-20-2018 [facility] Surgical Pathology Department Name ADEN PATEL Pathologist: MONO DUMONT MD Date of Procedure: 04/20/2018 Date Received: 04/20/2018 Date Reported 04/25/2018 Submitting Physician: NOLVIA COLMENARES MD Location: [facility] Other External # FINAL DIAGNOSIS A. [...] thrombi or lymph nodes are not identified. Pile Driver sections are submitted in 6 cassettes. DJO Summary of Cassettes: Specimen Label Site A 1 #1 segment perpendicular sections of margins, ink at margin 2 #1 segment 3 #2 segment perpendicular sections of margins, ink at margin 4-6 #2 segment djo/04/21/2018 Normal [facility] Comment on above: Performed By: #### U HCS ####[facility] Surgical Pathology [id number] [facility] [address] ARTERIAL FULL PANELon 2018 Anion gap [Moles/Vol] 10 mmol/L Normal 10 - 25 [facility] Comment on above: Order Comment: CHUYITA PETERS CALLED TO AMINATA PAVON, 04/19/2018 18:38 Performed By: #### A FPA3 ####[id number] [place] [address] BASE EXCESS-BLOOD 3.2 mmol/L High -2.0 - 3.0 [facility] Comment on above: Order Comment: CHUYITA PETERS CALLED TO AMINATA OLGUINAIN RB., 04/19/2018 18:38 Performed By: #### A FPA3 ####[id number] [place] [address] CALCIUM,IONIZED 1.10 mmol/L Normal 1.10 - 1.33 [facility] Comment on above: Order Comment: CHUYITA PETERS CALLED TO AMINATALUPILLO OLGUINAIN RB., 04/19/2018 18:38 Performed By: #### A FPA3 ####[id number] [place] [address] Chloride [Moles/Vol] 106 mmol/L Normal 98 - 107 [facility] Comment on above: Order Comment: CHUYITA PETERS CALLED TO AMINATA OLGUINAIN RB., 04/19/2018 18:38 Performed By: #### A FPA3 ####[id number] [place] [address] Glucose [Mass/Vol] 70 mg/dL Low 74 - 99 [facility] Comment on above: Order Comment: CHUYITA PETERS CALLED TO AMINATA OLGUINAIN RB., 04/19/2018 18:38 Performed By: #### A FPA3 ####[id number] [place] [address] Hematocrit (Bld) [Volume fraction] 40.0 % Low 41.0 - 52.0 [facility] Comment on above: Order Comment: CHUYITA PETERS CALLED TO AMINATA OLGUINAIN RB., 04/19/2018 18:38 Performed By: #### A FPA3 ####[id number] [place] [address] HGB,CALCULATED 13.6 g/dL Normal 13.5 - 17.5 [facility] Comment on above: Order Comment: CHUYITA PETERS CALLED TO AMINATA OLGUINAIN RB., 04/19/2018 18:38 Performed By: #### A FPA3 ####[id number] [place] [address] Lactate [Moles/Vol] 0.8 mmol/L Normal 0.4 - 2.0 [facility] Comment on above: Order Comment: CHUYITA PETERS CALLED TO AMINATA ANTHONY RB., 04/19/2018 18:38 Performed By: #### A FPA3 ####[id number] [place] [address] Oxygen (Bld) [Partial pressure] 68 mm[Hg] Low 85 - 95 [facility] Comment on above: Order Comment: CHUYITA PETERS CALLED TO AMINATA ANTHONY RB., 04/19/2018 18:38 Performed By: #### A FPA3 ####[id number] [place] [address] PCO2 37 mmHg Low 38 - 42 [facility] Comment on above: Order Comment: CHUYITA PETERS CALLED TO AMINATA ANTHONY RB., 04/19/2018 18:38 Performed By: #### A FPA3 ####[id number] [place] [address] pH (Bld) 7.47 [pH] High 7.38 - 7.42 [facility] Comment on above: Order Comment: CHUYITA PETERS CALLED TO AMINATA ANTHONY RB., 04/19/2018 18:38 Performed By: #### A FPA3 ####[id number] [place] [address] Potassium [Moles/Vol] 2.8 mmol/L Critically low 3.5 - 5.3 [facility] Comment on above: Order Comment: CHUYITA PETERS CALLED TO AMINATA ANTHONY RB., 04/19/2018 18:38 Result Comment: CHUYITA PETERS CALLED TO AMINATA ANTHONY RB., 04/19/2018 18:38 Performed By: #### A FPA3 ####[id number] [place] [address] RBC (Bld) [#/Vol] 26.9 mmol/L High 22.0 - 26.0 [facility] Comment on above: Order Comment: CHUYITA PETERS CALLED TO AMINATA ANTHONY RB., 04/19/2018 18:38 Performed By: #### A FPA3 ####[id number] [place] [address] SO2 96 % Normal 94 - 100 [facility] Comment on above: Order Comment: CRIDolly PETERS CALLED TO AMINATA CRUZ RB., 04/19/2018 18:38 Performed By: #### A FPA3 ####[id number] [place] [address] Sodium [Moles/Vol] 140 mmol/L Normal 136 - 145 [facility] Comment on above: Order Comment: CRIDolly PETERS CALLED TO AMINATA CRUZ RB., 04/19/2018 18:38 Performed By: #### A FPA3 ####[id number] [place] [address] Anion gap [Moles/Vol] 7 mmol/L Low 10 - 25 [facility] Comment on above: Order Comment: CRIT HGBNC CALLED RB TO CLARA PADGETT, 04/19/2018 04:00 Performed By: #### A FPA3 ####[id number] [place] [address] BASE EXCESS-BLOOD 7.6 mmol/L High -2.0 - 3.0 [facility] Comment on above: Order Comment: CRIT HGBNC CALLED RB TO CLARA PADGETT, 04/19/2018 04:00 Performed By: #### A FPA3 ####[id number] [place] [address] CALCIUM,IONIZED 1.13 mmol/L Normal 1.10 - 1.33 [facility] Comment on above: Order Comment: CRIT HGBNC CALLED RB TO CLARA PADGETT, 04/19/2018 04:00 Performed By: #### A FPA3 ####[id number] [place] [address] Chloride [Moles/Vol] 103 mmol/L Normal 98 - 107 [facility] Comment on above: Order Comment: CRIT HGBNC CALLED RB TO CLARA PADGETT, 04/19/2018 04:00 Performed By: #### A FPA3 ####[id number] [place] [address] Glucose [Mass/Vol] 73 mg/dL Low 74 - 99 [facility] Comment on above: Order Comment: CRIT HGBNC CALLED RB TO CLARA PADGETT, 04/19/2018 04:00 Performed By: #### A FPA3 ####[id number] [place] [address] Hematocrit (Bld) [Volume fraction] 17.0 % Low 41.0 - 52.0 [facility] Comment on above: Order Comment: CRIT HGBNC CALLED RB TO CLARA PADGETT, 04/19/2018 04:00 Performed By: #### A FPA3 ####[id number] [place] [address] HGB,CALCULATED 5.8 g/dL Critically low 13.5 - 17.5 [facility] Comment on above: Order Comment: CRIT HGBNC CALLED RB TO CLARA PADGETT, 04/19/2018 04:00 Result Comment: CRIT HGBNC CALLED RB TO CLARA PADGETT, 04/19/2018 04:00 Performed By: #### A FPA3 ####[id number] [place] [address] Lactate [Moles/Vol] 0.8 mmol/L Normal 0.4 - 2.0 [facility] Comment on above: Order Comment: CRIT HGBNC CALLED RB TO CLARA PADGETT, 04/19/2018 04:00 Performed By: #### A FPA3 ####[id number] [place] [address] Oxygen (Bld) [Partial pressure] 98 mm[Hg] High 85 - 95 [facility] Comment on above: Order Comment: CRIT HGBNC CALLED RB TO CLARA PADGETT, 04/19/2018 04:00 Performed By: #### A FPA3 ####[id number] [place] [address] PCO2 44 mmHg High 38 - 42 [facility] Comment on above: Order Comment: CRIT HGBNC CALLED RB TO CLARA PADGETT, 04/19/2018 04:00 Performed By: #### A FPA3 ####[id number] [place] [address] pH (Bld) 7.47 [pH] High 7.38 - 7.42 [facility] Comment on above: Order Comment: CRIT HGBNC CALLED RB TO CLARA PADGETT, 04/19/2018 04:00 Performed By: #### A FPA3 ####[id number] [place] [address] Potassium [Moles/Vol] 3.2 mmol/L Low 3.5 - 5.3 [facility] Comment on above: Order Comment: CRIT HGBNC CALLED RB TO CLARA PADGETT, 04/19/2018 04:00 Performed By: #### A FPA3 ####[id number] [place] [address] RBC (Bld) [#/Vol] 32.0 mmol/L High 22.0 - 26.0 [facility] Comment on above: Order Comment: CRIT HGBNC CALLED RB TO CLARA PADGETT, 04/19/2018 04:00 Performed By: #### A FPA3 ####[id number] [place] [address] SO2 99 % Normal 94 - 100 [facility] Comment on above: Order Comment: CRIT HGBNC CALLED RB TO CLARA PADGETT, 04/19/2018 04:00 Performed By: #### A FPA3 ####[id number] [place] [address] Sodium [Moles/Vol] 139 mmol/L Normal 136 - 145 [facility] Comment on above: Order Comment: CRIT HGBNC CALLED RB TO CLARA PADGETT, 04/19/2018 04:00 Performed By: #### A FPA3 ####[id number] [place] [address] CALCIUM, IONIZEDon 9 CALCIUM,IONIZED 1.10 mmol/L Normal 1.10 - 1.33 [facility] Comment on above: Result Comment: The performance characteristics of ionized calcium tested in heparinized plasma or serum have been validated by the individual laboratory site where testing is performed. Testing on heparinized plasma or serum is not approved by the FDA; however, such approval is not necessary. Performed By: #### I ONC1 ####[id number] [place] [address] CALCIUM,IONIZED 1.10 mmol/L Normal 1.10 - 1.33 [facility] Comment on above: Result Comment: The performance characteristics of ionized calcium tested in heparinized plasma or serum have been validated by the individual laboratory site where testing is performed. Testing on heparinized plasma or serum is not approved by the FDA; however, such approval is not necessary. Performed By: #### I ONC1 ####[id number] [place] [address] CBCon 04-19-2018 Erythrocyte distribution width (RBC) [Ratio] 14.7 % High 11.5 - 14.5 [facility] Comment on above: Performed By: #### C BC ####[id number] [place] [address] Hematocrit (Bld) [Volume fraction] 25.6 % Low 41.0 - 52.0 [facility] Comment on above: Performed By: #### C BC ####[id number] [place] [address] Hemoglobin (Bld) [Mass/Vol] 9.5 g/dL Low 13.5 - 17.5 [facility] Comment on above: Performed By: #### C BC ####[id number] [place] [address] MCHC (RBC) [Mass/Vol] 37.1 g/dL High 32.0 - 36.0 [facility] Comment on above: Performed By: #### C BC ####[id number] [place] [address] MCV (RBC) [Entitic vol] 84 fL Normal 80 - 100 [facility] Comment on above: Performed By: #### C BC ####[id number] [place] [address] Nucleated RBC/100 WBC (Bld) [Ratio] 0.0 /100 WBC Normal 0.0-0.0 [facility] Comment on above: Performed By: #### C BC ####[id number] [place] [address] Platelets (Bld) [#/Vol] 137 10*3/uL Low 150 - 450 [facility] Comment on above: Performed By: #### C BC ####[id number] [place] [address] RBC (Bld) [#/Vol] 3.05 x10E12/L Low 4.50 - 5.90 [facility] Comment on above: Performed By: #### C BC ####[id number] [place] [address] WBC (Bld) [#/Vol] 8.6 10*3/uL Normal 4.4 - 11.3 [facility] Comment on above: Performed By: #### C BC ####[id number] [place] [address] Erythrocyte distribution width (RBC) [Ratio] 15.2 % High 11.5 - 14.5 [facility] Comment on above: Performed By: #### C BC ####[id number] [place] [address] Hematocrit (Bld) [Volume fraction] 27.5 % Low 41.0 - 52.0 [facility] Comment on above: Performed By: #### C BC ####[id number] [place] [address] Hemoglobin (Bld) [Mass/Vol] 9.6 g/dL Low 13.5 - 17.5 [facility] Comment on above: Performed By: #### C BC ####[id number] [place] [address] MCHC (RBC) [Mass/Vol] 34.9 g/dL Normal 32.0 - 36.0 [facility] Comment on above: Performed By: #### C BC ####[id number] [place] [address] MCV (RBC) [Entitic vol] 88 fL Normal 80 - 100 [facility] Comment on above: Performed By: #### C BC ####[id number] [place] [address] Nucleated RBC/100 WBC (Bld) [Ratio] 0.1 /100 WBC Normal 0.0-0.0 [facility] Comment on above: Performed By: #### C BC ####[id number] [place] [address] Platelets (Bld) [#/Vol] 136 10*3/uL Low 150 - 450 [facility] Comment on above: Performed By: #### C BC ####[id number] [place] [address] RBC (Bld) [#/Vol] 3.13 x10E12/L Low 4.50 - 5.90 [facility] Comment on above: Performed By: #### C BC ####[id number] [place] [address] WBC (Bld) [#/Vol] 8.8 10*3/uL Normal 4.4 - 11.3 [facility] Comment on above: Performed By: #### C BC ####[id number] [place] [address] COAGULATION SCREENon 019 aPTT Coag (Bld) [Time] 30 s Normal 28 - 38 [facility] Comment on above: Result Comment: Note new reference range as of 01/17/2018. THE APTT IS NO LONGER USED FOR MONITORING UNFRACTIONATED HEPARIN THERAPY. FOR MONITORING HEPARIN THERAPY, USE THE HEPARIN ASSAY. Performed By: #### C OAGS ####[id number] [place] [address] INR Coag (PPP) [Relative time] 1.0 {INR} Normal 0.9 - 1.1 [facility] Comment on above: Performed By: #### C OAGS ####[id number] [place] [address] PT Coag (PPP) [Time] 10.7 s Normal 9.7 - 12.7 [facility] Comment on above: Result Comment: Note new reference range as of 01/17/2018. Performed By: #### C OAGS ####[id number] [place] [address] aPTT Coag (Bld) [Time] 31 s Normal 28 - 38 [facility] Comment on above: Result Comment: Note new reference range as of 01/17/2018. THE APTT IS NO LONGER USED FOR MONITORING UNFRACTIONATED HEPARIN THERAPY. FOR MONITORING HEPARIN THERAPY, USE THE HEPARIN ASSAY. Performed By: #### C OAGS ####[id number] [place] [address] INR Coag (PPP) [Relative time] 1.0 {INR} Normal 0.9 - 1.1 [facility] Comment on above: Performed By: #### C OAGS ####[id number] [place] [address] PT Coag (PPP) [Time] 10.7 s Normal 9.7 - 12.7 [facility] Comment on above: Result Comment: Note new reference range as of 01/17/2018. Performed By: #### C OAGS ####[id number] [place] [address] Daily Progress Note - Critic al Care-SICU , [facility] 04-19-2018 [facility] Service: Critical Care Service: [facility] Subjective Data: ID Statement: ADEN PATEL is a 67 year old Male who is Hospital Day # 7 and ICU Day #4 and POD #2 for Exploratory laparotomy, evacuation hematoma, omentectomy, abthera wound vac. no events overnight. Objective Data: Objective Information T PRBPSpO2 Value37.0699983% Date/Time04/19 8: 7: 7: 7:00 Range(36.8C - 37.1C ) (67 - 80 ) (15 - 17 ) (97% - 99% ) As of 19-Apr-2018 04:00:00, patient is on 50% oxygen via ventilator assisted. Highest temp of 37.1 C was recorded at 04/19 8:00 Pain reported at 04/19 6:00: 0 Pain reported at 04/18 20:00: 2 Direct Arterial Blood Pressure Pbtwnxxl943(117 - 157)04/19 7:00 Diastolic (mm Hg)67(46 - 68)04/19 7:00 Mean (mm Hg)91(65 - 94)04/19 7:00 Pulse Pressure (mm Hg)83(66 - 98)04/19 7:00 ---- Intake and Output ----- Mn/Dy/Year TimeIntakeOutputNet Apr 19, 2018 6:00 am961.91531-019 Apr 18, 2018 10:00 [id number] Apr 18, 2018 2:00 qz3296.71041-612 The Intake and Output Totals for the last 24 hours are: 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 Objective Data: Objective Information: T PRBPSpO2 Value37.7848999% Date/Time04/19 8: 9: 9: 9:00 Range(36.8C - 37.1C ) (67 - 80 ) (11 - 17 ) (95% - 99% ) As of 19-Apr-2018 04:00:00, patient is on 50% oxygen via ventilator assisted. Highest temp of 37.1 C was recorded at 04/19 8:00 ---- Intake and Output ----- Mn/Dy/Year TimeIntakeOutputNet Apr 19, 2018 6:00 am961.73172-744 Apr 18, 2018 10:00 [phone] Apr 18, 2018 2:00 pg9557.32133-770 The Intake and Output Totals for the last 24 hours are: IntakeOutputNet [id number] Intake Output IV Fluids 2400 mL Urine [...] reviewed these laboratory results: Glucose_POCT Trending View [id number]-4549 07:35:00 19-Apr-2018 05:07:00 19-Apr-2018 00:32:00 Glucose-POCT84 82 [...] Full Panel 19-Apr-2018 03:51:00 ResultValue Lab Comment: [facility] RB TO CLARA PADGETT, 04/19/2018 04:00 pH, Arterial 7.47 H pCO2, [...] Dr. Colmenares. Marquez Bronson General Surgery, PGY-2 [place] [id number] Signature/Cosignature/Attesta tion: Attending AttestationI saw and evaluated [...] Updated: 20-Apr-2018 06:02 by Nolvia Colmenares) Normal [facility] Daily Progress Note-Renalon 04-19-2018 Daily Progress Note-Renal [...] ----- Mn/Dy/Year TimeIntakeOutputNet Apr 19, 2018 6:00 am961.91515-471 Apr 18, 2018 10:00 [id number] Apr 18, 2018 2:00 aq5118.76129-828 The Intake and Output Totals for the last 24 hours are: IntakeOutputNet [id number] T PRBPSpO2 Value37.8054087% Date/Time04/19 12: 11: 11: 11:00 Range(36.8C - [...] laboratory results: Renal Function Panel Trending View Ilrwhb52-Yvz-0713 05:15:00 18-Apr-2018 21:14:00 18-Apr-2018 10:00:00 Glucose, Serum68 L 74 85 NA142 142 141 K3.6 3.1 L 3.2 L CL102 100 99 Bicarbonate, Serum26 31 29 Anion Gap, Serum18 14 16 BUN46 H 49 H 54 H CREAT2.32 H 2.53 H 3.20 H GFR-Non Mwjqiusf66 A 26 A 20 A GFR- Twwwmuzt65 A 31 A 24 A Calcium, Serum7.6 [...] ~ 800 cc Plan: -No indication for DIMENSION SPECIFICATION INSPECTOR at this time - D5W 50 cc/hr for 1 L Rest as before - Target MAPs >70 for optimum renal perfusion. -Order FeNa, and FeUrea when possible. -Strict I&O's, Daily weights -Avoid nephrotoxic agents, hypotension, IV contrast, and NSAIDs when possible. -Renally dose medications. Will sign off, please let us known if we can be of any further assistance. Inés Henson MD, MS, [facility] CENTERVivian, SAMANTHA Nephrology fellow P [phone] Signature/Cosignature/Attesta tion: Comments/ Additional Findings I personally [...] Updated: 19-Apr-2018 20:06 by Seamus Parra) Normal [facility] GLUCOSE-POCTon 04-19-2018 Glucose [Mass/Vol] 81 mg/dL Normal 74 - 99 [facility] Comment on above: Performed By: #### G VAISHALI ####[id number] [place] [address] Glucose [Mass/Vol] 81 mg/dL Normal 74 - 99 [facility] Comment on above: Performed By: #### G VAISHALI ####[id number] [place] [address] Glucose [Mass/Vol] 76 mg/dL Normal 74 - 99 [facility] Comment on above: Performed By: #### G VAISHALI ####[id number] [place] [address] Glucose [Mass/Vol] 84 mg/dL Normal 74 - 99 [facility] Comment on above: Performed By: #### G VAISHALI ####[id number] [place] [address] Glucose [Mass/Vol] 82 mg/dL Normal 74 - 99 [facility] Comment on above: Performed By: #### G VAISHALI ####[id number] [place] [address] Glucose [Mass/Vol] 81 mg/dL Normal 74 - 99 [facility] Comment on above: Performed By: #### G VAISHALI ####[id number] [place] [address] MAGNESIUMon 04-19-2018 Magnesium [Mass/Vol] 2.33 mg/dL Normal 1.60 - 2.40 [facility] Comment on above: Performed By: #### M G ####[id number] [place] [address] Magnesium [Mass/Vol] 2.33 mg/dL Normal 1.60 - 2.40 [facility] Comment on above: Performed By: #### M G ####[id number] [place] [address] RENAL FUNCTION PANELon 04-19 Albumin [Mass/Vol] 2.6 g/dL Low 3.4 - 5.0 [facility] Comment on above: Performed By: #### R ENAL ####[id number] [place] [address] Anion gap [Moles/Vol] 15 mmol/L Normal 10 - 20 [facility] Comment on above: Performed By: #### R ENAL ####[id number] [place] [address] Calcium [Mass/Vol] 7.8 mg/dL Low 8.6 - 10.6 [facility] Comment on above: Performed By: #### R ENAL ####[id number] [place] [address] Chloride [Moles/Vol] 106 mmol/L Normal 98 - 107 [facility] Comment on above: Performed By: #### R ENAL ####[id number] [place] [address] Creatinine [Mass/Vol] 1.65 mg/dL High 0.50 - 1.30 [facility] Comment on above: Performed By: #### R ENAL ####[id number] [place] [address] GFR- AM. 51 mL/min/1.73m2 Abnormal >60 [facility] Comment on above: Result Comment: CALC ULATIONS OF ESTIMATED GFR ARE PERFORMED USING THE MDRD STUDY EQUATION FOR THE IDMS-TRACEABLE CREATININE METHODS. CLIN CHEM 2007;53:766-72 Performed By: #### R ENAL ####[id number] [place] [address] GFR-NON AM. 42 mL/min/1.73m2 Abnormal >60 [facility] Comment on above: Performed By: #### R ENAL ####[id number] [place] [address] Glucose [Mass/Vol] 70 mg/dL Low 74 - 99 [facility] Comment on above: Performed By: #### R ENAL ####[id number] [place] [address] HCO3 (Bld) [Moles/Vol] 28 mmol/L Normal 21 - 32 [facility] Comment on above: Performed By: #### R ENAL ####[id number] [place] [address] Phosphate [Mass/Vol] 2.8 mg/dL Normal 2.5 - 4.9 [facility] Comment on above: Result Comment: The performance characteristics of phosphorus testing in heparinized plasma have been validated by the individual laboratory site where testing is performed. Testing on heparinized plasma is not approved by the FDA; however, such approval is not necessary. Performed By: #### R ENAL ####[id number] [place] [address] Potassium [Moles/Vol] 3.2 mmol/L Low 3.5 - 5.3 [facility] Comment on above: Performed By: #### R ENAL ####[id number] [place] [address] Sodium [Moles/Vol] 146 mmol/L High 136 - 145 [facility] Comment on above: Performed By: #### R ENAL ####[id number] [place] [address] Urea nitrogen [Mass/Vol] 43 mg/dL High 6 - 23 [facility] Comment on above: Performed By: #### R ENAL ####[id number] [place] [address] Albumin [Mass/Vol] 2.5 g/dL Low 3.4 - 5.0 [facility] Comment on above: Performed By: #### R ENAL ####[id number] [place] [address] Anion gap [Moles/Vol] 15 mmol/L Normal 10 - 20 [facility] Comment on above: Performed By: #### R ENAL ####[id number] [place] [address] Calcium [Mass/Vol] 7.8 mg/dL Low 8.6 - 10.6 [facility] Comment on above: Performed By: #### R ENAL ####[id number] [place] [address] Chloride [Moles/Vol] 104 mmol/L Normal 98 - 107 [facility] Comment on above: Performed By: #### R ENAL ####[id number] [place] [address] Creatinine [Mass/Vol] 1.95 mg/dL High 0.50 - 1.30 [facility] Comment on above: Performed By: #### R ENAL ####[id number] [place] [address] GFR- AM. 42 mL/min/1.73m2 Abnormal >60 [facility] Comment on above: Result Comment: CALC ULATIONS OF ESTIMATED GFR ARE PERFORMED USING THE MDRD STUDY EQUATION FOR THE IDMS-TRACEABLE CREATININE METHODS. CLIN CHEM 2007;53:766-72 Performed By: #### R ENAL ####[id number] [place] [address] GFR-NON AM. 35 mL/min/1.73m2 Abnormal >60 [facility] Comment on above: Performed By: #### R ENAL ####[id number] [place] [address] Glucose [Mass/Vol] 70 mg/dL Low 74 - 99 [facility] Comment on above: Performed By: #### R ENAL ####[id number] [place] [address] HCO3 (Bld) [Moles/Vol] 29 mmol/L Normal 21 - 32 [facility] Comment on above: Performed By: #### R ENAL ####[id number] [place] [address] Phosphate [Mass/Vol] 3.1 mg/dL Normal 2.5 - 4.9 [facility] Comment on above: Result Comment: The performance characteristics of phosphorus testing in heparinized plasma have been validated by the individual laboratory site where testing is performed. Testing on heparinized plasma is not approved by the FDA; however, such approval is not necessary. Performed By: #### R ENAL ####[id number] [place] [address] Potassium [Moles/Vol] 3.5 mmol/L Normal 3.5 - 5.3 [facility] Comment on above: Performed By: #### R ENAL ####[id number] [place] [address] Sodium [Moles/Vol] 144 mmol/L Normal 136 - 145 [facility] Comment on above: Performed By: #### R ENAL ####[id number] [place] [address] Urea nitrogen [Mass/Vol] 46 mg/dL High 6 - 23 [facility] Comment on above: Performed By: #### R ENAL ####[id number] [place] [address] Albumin [Mass/Vol] 2.5 g/dL Low 3.4 - 5.0 [facility] Comment on above: Performed By: #### R ENAL ####[id number] [place] [address] Anion gap [Moles/Vol] 18 mmol/L Normal 10 - 20 [facility] Comment on above: Performed By: #### R ENAL ####[id number] [place] [address] Calcium [Mass/Vol] 7.6 mg/dL Low 8.6 - 10.6 [facility] Comment on above: Performed By: #### R ENAL ####[id number] [place] [address] Chloride [Moles/Vol] 102 mmol/L Normal 98 - 107 [facility] Comment on above: Performed By: #### R ENAL ####[id number] [place] [address] Creatinine [Mass/Vol] 2.32 mg/dL High 0.50 - 1.30 [facility] Comment on above: Performed By: #### R ENAL ####[id number] [place] [address] GFR- AM. 34 mL/min/1.73m2 Abnormal >60 [facility] Comment on above: Result Comment: CALC ULATIONS OF ESTIMATED GFR ARE PERFORMED USING THE MDRD STUDY EQUATION FOR THE IDMS-TRACEABLE CREATININE METHODS. CLIN CHEM 2007;53:766-72 Performed By: #### R ENAL ####[id number] [place] [address] GFR-NON AM. 28 mL/min/1.73m2 Abnormal >60 [facility] Comment on above: Performed By: #### R ENAL ####[id number] [place] [address] Glucose [Mass/Vol] 68 mg/dL Low 74 - 99 [facility] Comment on above: Performed By: #### R ENAL ####[id number] [place] [address] HCO3 (Bld) [Moles/Vol] 26 mmol/L Normal 21 - 32 [facility] Comment on above: Performed By: #### R ENAL ####[id number] [place] [address] Phosphate [Mass/Vol] 3.5 mg/dL Normal 2.5 - 4.9 [facility] Comment on above: Result Comment: The performance characteristics of phosphorus testing in heparinized plasma have been validated by the individual laboratory site where testing is performed. Testing on heparinized plasma is not approved by the FDA; however, such approval is not necessary. Performed By: #### R ENAL ####[id number] [place] [address] Potassium [Moles/Vol] 3.6 mmol/L Normal 3.5 - 5.3 [facility] Comment on above: Performed By: #### R ENAL ####[id number] [place] [address] Sodium [Moles/Vol] 142 mmol/L Normal 136 - 145 [facility] Comment on above: Performed By: #### R ENAL ####[id number] [place] [address] Urea nitrogen [Mass/Vol] 46 mg/dL High 6 - 23 [facility] Comment on above: Performed By: #### R ENAL ####[id number] [place] [address] Albumin [Mass/Vol] 2.6 g/dL Low 3.4 - 5.0 [facility] Comment on above: Performed By: #### R ENAL ####[id number] [place] [address] Anion gap [Moles/Vol] 14 mmol/L Normal 10 - 20 [facility] Comment on above: Performed By: #### R ENAL ####[id number] [place] [address] Calcium [Mass/Vol] 8.0 mg/dL Low 8.6 - 10.6 [facility] Comment on above: Performed By: #### R ENAL ####[id number] [place] [address] Chloride [Moles/Vol] 100 mmol/L Normal 98 - 107 [facility] Comment on above: Performed By: #### R ENAL ####[id number] [place] [address] Creatinine [Mass/Vol] 2.53 mg/dL High 0.50 - 1.30 [facility] Comment on above: Performed By: #### R ENAL ####[id number] [place] [address] GFR- AM. 31 mL/min/1.73m2 Abnormal >60 [facility] Comment on above: Result Comment: CALC ULATIONS OF ESTIMATED GFR ARE PERFORMED USING THE MDRD STUDY EQUATION FOR THE IDMS-TRACEABLE CREATININE METHODS. CLIN CHEM 2007;53:766-72 Performed By: #### R ENAL ####[id number] [place] [address] GFR-NON AM. 26 mL/min/1.73m2 Abnormal >60 [facility] Comment on above: Performed By: #### R ENAL ####[id number] [place] [address] Glucose [Mass/Vol] 74 mg/dL Normal 74 - 99 [facility] Comment on above: Performed By: #### R ENAL ####[id number] [place] [address] HCO3 (Bld) [Moles/Vol] 31 mmol/L Normal 21 - 32 [facility] Comment on above: Performed By: #### R ENAL ####[id number] [place] [address] Phosphate [Mass/Vol] 3.8 mg/dL Normal 2.5 - 4.9 [facility] Comment on above: Result Comment: The performance characteristics of phosphorus testing in heparinized plasma have been validated by the individual laboratory site where testing is performed. Testing on heparinized plasma is not approved by the FDA; however, such approval is not necessary. Performed By: #### R ENAL ####[id number] [place] [address] Potassium [Moles/Vol] 3.1 mmol/L Low 3.5 - 5.3 [facility] Comment on above: Performed By: #### R ENAL ####[id number] [place] [address] Sodium [Moles/Vol] 142 mmol/L Normal 136 - 145 [facility] Comment on above: Performed By: #### R ENAL ####[id number] [place] [address] Urea nitrogen [Mass/Vol] 49 mg/dL High 6 - 23 [facility] Comment on above: Performed By: #### R ENAL ####[id number] [place] [address] TH CHEST 1 VIEWon 04-19-2018 TH CHEST 1 VIEW Patient Name: ADEN PATEL STUDY: TH CHEST 1 VIEW; 04/19/2018 7:15 am INDICATION: Signs/Symptoms: AM rounds. COMPARISON: 04/18/2018 ACCESSION NUMBER(S): [id number] ORDERING CLINICIAN: CLARA PADGETT FINDINGS: Life-support systems in satisfactory position CARDIOMEDIASTINAL SILHOUETTE: Cardiomegaly versus pericardial effusion LUNGS: Basilar atelectasis and perihilar edema. No pneumothorax. ABDOMEN: No remarkable upper abdominal findings. BONES: No acute osseous changes. IMPRESSION: 1. Perihilar edema with basilar atelectasis and effusion. No pneumothorax. Electronically signed by: Mason SHIELDS MD Normal [facility] ARTERIAL FULL PANELon 2018 Anion gap [Moles/Vol] 9 mmol/L Low 10 - 25 [facility] Comment on above: Performed By: #### A FPA3 ####[id number] [place] [address] BASE EXCESS-BLOOD 5.5 mmol/L High -2.0 - 3.0 [facility] Comment on above: Performed By: #### A FPA3 ####[id number] [place] [address] CALCIUM,IONIZED 0.99 mmol/L Low 1.10 - 1.33 [facility] Comment on above: Performed By: #### A FPA3 ####[id number] [place] [address] Chloride [Moles/Vol] 99 mmol/L Normal 98 - 107 [facility] Comment on above: Performed By: #### A FPA3 ####[id number] [place] [address] Glucose [Mass/Vol] 93 mg/dL Normal 74 - 99 [facility] Comment on above: Performed By: #### A FPA3 ####[id number] [place] [address] Hematocrit (Bld) [Volume fraction] 25.0 % Low 41.0 - 52.0 [facility] Comment on above: Performed By: #### A FPA3 ####[id number] [place] [address] HGB,CALCULATED 8.5 g/dL Low 13.5 - 17.5 [facility] Comment on above: Performed By: #### A FPA3 ####[id number] [place] [address] Lactate [Moles/Vol] 0.9 mmol/L Normal 0.4 - 2.0 [facility] Comment on above: Performed By: #### A FPA3 ####[id number] [place] [address] Oxygen (Bld) [Partial pressure] 80 mm[Hg] Low 85 - 95 [facility] Comment on above: Performed By: #### A FPA3 ####[id number] [place] [address] PCO2 42 mmHg Normal 38 - 42 [facility] Comment on above: Performed By: #### A FPA3 ####[id number] [place] [address] pH (Bld) 7.46 [pH] High 7.38 - 7.42 [facility] Comment on above: Performed By: #### A FPA3 ####[id number] [place] [address] Potassium [Moles/Vol] 3.4 mmol/L Low 3.5 - 5.3 [facility] Comment on above: Performed By: #### A FPA3 ####[id number] [place] [address] RBC (Bld) [#/Vol] 29.9 mmol/L High 22.0 - 26.0 [facility] Comment on above: Performed By: #### A FPA3 ####[id number] [place] [address] SO2 98 % Normal 94 - 100 [facility] Comment on above: Performed By: #### A FPA3 ####[id number] [place] [address] Sodium [Moles/Vol] 134 mmol/L Low 136 - 145 [facility] Comment on above: Performed By: #### A FPA3 ####[id number] [place] [address] CALCIUM, IONIZEDon 9 CALCIUM,IONIZED 1.04 mmol/L Low 1.10 - 1.33 [facility] Comment on above: Result Comment: The performance characteristics of ionized calcium tested in heparinized plasma or serum have been validated by the individual laboratory site where testing is performed. Testing on heparinized plasma or serum is not approved by the FDA; however, such approval is not necessary. Performed By: #### I ONC1 ####[id number] [place] [address] CALCIUM,IONIZED 0.95 mmol/L Low 1.10 - 1.33 [facility] Comment on above: Result Comment: The performance characteristics of ionized calcium tested in heparinized plasma or serum have been validated by the individual laboratory site where testing is performed. Testing on heparinized plasma or serum is not approved by the FDA; however, such approval is not necessary. Performed By: #### I ONC1 ####[id number] [place] [address] CBCon 04-18-2018 Erythrocyte distribution width (RBC) [Ratio] 15.3 % High 11.5 - 14.5 [facility] Comment on above: Performed By: #### C BC ####[id number] [place] [address] Hematocrit (Bld) [Volume fraction] 27.9 % Low 41.0 - 52.0 [facility] Comment on above: Performed By: #### C BC ####[id number] [place] [address] Hemoglobin (Bld) [Mass/Vol] 9.5 g/dL Low 13.5 - 17.5 [facility] Comment on above: Performed By: #### C BC ####[id number] [place] [address] MCHC (RBC) [Mass/Vol] 34.1 g/dL Normal 32.0 - 36.0 [facility] Comment on above: Performed By: #### C BC ####[id number] [place] [address] MCV (RBC) [Entitic vol] 90 fL Normal 80 - 100 [facility] Comment on above: Performed By: #### C BC ####[id number] [place] [address] Nucleated RBC/100 WBC (Bld) [Ratio] 0.0 /100 WBC Normal 0.0-0.0 [facility] Comment on above: Performed By: #### C BC ####[id number] [place] [address] Platelets (Bld) [#/Vol] 133 10*3/uL Low 150 - 450 [facility] Comment on above: Performed By: #### C BC ####[id number] [place] [address] RBC (Bld) [#/Vol] 3.09 x10E12/L Low 4.50 - 5.90 [facility] Comment on above: Performed By: #### C BC ####[id number] [place] [address] WBC (Bld) [#/Vol] 9.6 10*3/uL Normal 4.4 - 11.3 [facility] Comment on above: Performed By: #### C BC ####[id number] [place] [address] Erythrocyte distribution width (RBC) [Ratio] 14.9 % High 11.5 - 14.5 [facility] Comment on above: Performed By: #### C BC ####[id number] [place] [address] Hematocrit (Bld) [Volume fraction] 27.5 % Low 41.0 - 52.0 [facility] Comment on above: Performed By: #### C BC ####[id number] [place] [address] Hemoglobin (Bld) [Mass/Vol] 9.4 g/dL Low 13.5 - 17.5 [facility] Comment on above: Performed By: #### C BC ####[id number] [place] [address] MCHC (RBC) [Mass/Vol] 34.2 g/dL Normal 32.0 - 36.0 [facility] Comment on above: Performed By: #### C BC ####[id number] [place] [address] MCV (RBC) [Entitic vol] 90 fL Normal 80 - 100 [facility] Comment on above: Performed By: #### C BC ####[id number] [place] [address] Nucleated RBC/100 WBC (Bld) [Ratio] 0.1 /100 WBC Normal 0.0-0.0 [facility] Comment on above: Performed By: #### C BC ####[id number] [place] [address] Platelets (Bld) [#/Vol] 132 10*3/uL Low 150 - 450 [facility] Comment on above: Performed By: #### C BC ####[id number] [place] [address] RBC (Bld) [#/Vol] 3.06 x10E12/L Low 4.50 - 5.90 [facility] Comment on above: Performed By: #### C BC ####[id number] [place] [address] WBC (Bld) [#/Vol] 9.6 10*3/uL Normal 4.4 - 11.3 [facility] Comment on above: Performed By: #### C BC ####[id number] [place] [address] COAGULATION SCREENon 019 aPTT Coag (Bld) [Time] 32 s Normal 28 - 38 [facility] Comment on above: Result Comment: Note new reference range as of 01/17/2018. THE APTT IS NO LONGER USED FOR MONITORING UNFRACTIONATED HEPARIN THERAPY. FOR MONITORING HEPARIN THERAPY, USE THE HEPARIN ASSAY. Performed By: #### C OAGS ####[id number] [place] [address] INR Coag (PPP) [Relative time] 1.1 {INR} Normal 0.9 - 1.1 [facility] Comment on above: Performed By: #### C OAGS ####[id number] [place] [address] PT Coag (PPP) [Time] 11.7 s Normal 9.7 - 12.7 [facility] Comment on above: Result Comment: Note new reference range as of 01/17/2018. Performed By: #### C OAGS ####[id number] [place] [address] aPTT Coag (Bld) [Time] 34 s Normal 28 - 38 [facility] Comment on above: Result Comment: Note new reference range as of 01/17/2018. THE APTT IS NO LONGER USED FOR MONITORING UNFRACTIONATED HEPARIN THERAPY. FOR MONITORING HEPARIN THERAPY, USE THE HEPARIN ASSAY. Performed By: #### C OAGS ####[id number] [place] [address] INR Coag (PPP) [Relative time] 1.1 {INR} Normal 0.9 - 1.1 [facility] Comment on above: Performed By: #### C OAGS ####[id number] [place] [address] PT Coag (PPP) [Time] 11.8 s Normal 9.7 - 12.7 [facility] Comment on above: Result Comment: Note new reference range as of 01/17/2018. Performed By: #### C OAGS ####[id number] [place] [address] CREATINE KINASEon 04-18-2018 CK [Catalytic activity/Vol] Canceled Normal [facility] Comment on above: Order Comment: TEST CREATINE KINASE WAS CANCELLED, 04/18/2018 02:36 DUPLICATE ORDER. Performed By: #### C K ####[id number] [place] [address] Daily Progress Note - Critic al Care-SICUon [...] sedated. Objective Data: Objective Information T PRBPSpO2 [id number]/6598% Date/Time04/18 4: 7: 7: 6: 7:00 Range(36.8C - 37.4C ) (71 - 100 ) (13 - 20 ) (96 - 131 )/ (56 - 69 ) (80% - 100% ) As of 18-Apr-2018 04:00:00, patient is on 50% oxygen via ventilator assisted. Highest temp of 37.4 C was recorded at 04/17 16:00 Pain reported at 04/18 4:00: 0 Direct Arterial Blood Pressure Htzdiumq658(89 - 171)04/18 7:00 Diastolic (mm Hg)56(42 - 80)04/18 7:00 Mean (mm Hg)79(56 - 113)04/18 7:00 Pulse Pressure (mm Hg)68(45 - 92)04/18 7:00 ---- Intake and Output ----- Mn/Dy/Year TimeIntakeOutputNet Apr 18, 2018 6:00 za2822.818202-253 Apr 17, 2018 10:00 [id number] Apr 17, 2018 2:00 ym2473.57899613 The Intake and Output Totals for the last 24 hours are: IntakeOutputNet [id number] Drain and tube details (included in I&O [...] h range: ( 7.33 - 7.46 ) fND395 24 h range: ( 42 - 52 ) SO298 24 h range: ( 90 - 99 ) Base Excess5.5 24 h range: ( 0.9 - 5.5 ) Mlhalmbvskz34.9 24 h range: ( 27.4 - 29.9 [...] History of HTN, 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 Objective Data: Objective Information: T PRBPSpO2 Value36.18467436/6598% Date/Time04/18 8: 10: 10: 6: 10:00 Range(36.6C - 37.4C ) (71 - 86 ) (13 - 20 ) (96 - 131 )/ (56 - 69 ) (80% - 100% ) As of 18-Apr-2018 08:00:00, patient is on 50% oxygen via ventilator assisted. Highest temp of 37.4 C was recorded at 04/17 16:00 ---- Intake and Output ----- Mn/Dy/Year TimeIntakeOutputNet Apr 18, 2018 6:00 ko2287.394461-435 Apr 17, 2018 10:00 [id number] Apr 17, 2018 2:00 fe2828.47445835 The Intake and Output Totals for the last 24 hours are: IntakeOutputNet [id number] Intake Output IV Fluids 5375 mL Urine [...] Time 32 Complete Blood Count Trending View Rnogva45-Hzm-4347 10:00:00 18-Apr-2018 01:12:00 White Blood Cell Count9.6 9.6 Nucleated Erythrocyte Count0.0 0.1 Red Blood Cell Count3.09 L 3.06 L HGB9.5 L 9.4 L HCT27.9 L 27.5 L MCV90 90 MCHC34.1 34.2 YXM557 L 132 L RDW-CV15.3 H 14.9 H [...] ResultValue Magnesium, Serum 2.25 Glucose_POCT Trending View Nsnxhk51-Eai-5599 08:49:00 18-Apr-2018 04:10:00 Glucose-POCT87 93 Radiology Results: [...] appreciate nephology recs - Plan for OR Thursday for second look and possible closure. - Please call with any issues or changes Patient discussed with attending surgeon Dr. Colmenares. Marquez Bronson General Surgery, PGY-2 [place] [phone] Signature/Cosignature/Attesta tion: Attending AttestationI saw and evaluated [...] Updated: 20-Apr-2018 06:01 by Nolvia Colmenares) Normal [facility] Daily Progress Note-Renalon 04-18-2018 Daily Progress Note-Renal [...] ----- Mn/Dy/Year TimeIntakeOutputNet Apr 18, 2018 6:00 br0976.684474-905 Apr 17, 2018 10:00 zb6870.389002292 Apr 17, 2018 2:00 et1679.91031126 The Intake and Output Totals for the last 24 hours are: IntakeOutputNet [id number] T PRBPSpO2 Value36.76459783/6598% Date/Time04/18 8: 11: 11: 6: 11:00 Range(36.6C [...] 15.3 H Renal Function Panel Trending View Zzocuf30-Vof-0446 10:00:00 18-Apr-2018 01:12:00 Glucose, Serum85 97 NA141 140 K3.2 L 3.7 CL99 99 Bicarbonate, Serum29 28 Anion Gap, Serum16 17 BUN54 H 57 H CREAT3.20 H 3.72 H GFR-Non Syxwtmhc12 A 16 A GFR- Scbbxoen75 A 19 A Calcium, Serum7.6 L 7.4 [...] you are doing Plan: -No indication for DIMENSION SPECIFICATION INSPECTOR. Family are verbally agreeable as needed Rest as before - Target MAPs >70 for optimum renal perfusion. -Order FeNa, and FeUrea when possible. -Strict I&O's, Daily weights -Avoid nephrotoxic agents, hypotension, IV contrast, and NSAIDs when possible. -Renally dose medications. Inés Henson MD, MS, FASN, SAMANTHA Nephrology fellow P [phone] Signature/Cosignature/Attesta tion: Comments/ Additional Findings I personally [...] Updated: 18-Apr-2018 20:42 by Seamus Parra) Normal [facility] FIBRINOGENon 04-18-2018 FIBRINOGEN 451 mg/dL High 200 - 400 [facility] Comment on above: Performed By: #### F IB ####[id number] [place] [address] GLUCOSE-POCTon 04-18-2018 Glucose [Mass/Vol] 87 mg/dL Normal 74 - 99 [facility] Comment on above: Performed By: #### G VAISHALI ####[id number] [place] [address] Glucose [Mass/Vol] 81 mg/dL Normal 74 - 99 [facility] Comment on above: Performed By: #### G VAISHALI ####[id number] [place] [address] Glucose [Mass/Vol] 92 mg/dL Normal 74 - 99 [facility] Comment on above: Performed By: #### G VAISHALI ####[id number] [place] [address] Glucose [Mass/Vol] 87 mg/dL Normal 74 - 99 [facility] Comment on above: Performed By: #### G VAISHALI ####[id number] [place] [address] Glucose [Mass/Vol] 93 mg/dL Normal 74 - 99 [facility] Comment on above: Performed By: #### G VAISHALI ####[id number] [place] [address] Glucose [Mass/Vol] 103 mg/dL High 74 - 99 [facility] Comment on above: Performed By: #### G VAISHALI ####[id number] [place] [address] MAGNESIUMon 04-18-2018 Magnesium [Mass/Vol] 2.25 mg/dL Normal 1.60 - 2.40 [facility] Comment on above: Performed By: #### M G ####[id number] [place] [address] Magnesium [Mass/Vol] 2.19 mg/dL Normal 1.60 - 2.40 [facility] Comment on above: Performed By: #### M G ####[id number] [place] [address] RENAL FUNCTION PANELon 04-18 Albumin [Mass/Vol] 2.6 g/dL Low 3.4 - 5.0 [facility] Comment on above: Performed By: #### R ENAL ####[id number] [place] [address] Anion gap [Moles/Vol] 16 mmol/L Normal 10 - 20 [facility] Comment on above: Performed By: #### R ENAL ####[id number] [place] [address] Calcium [Mass/Vol] 7.6 mg/dL Low 8.6 - 10.6 [facility] Comment on above: Performed By: #### R ENAL ####[id number] [place] [address] Chloride [Moles/Vol] 99 mmol/L Normal 98 - 107 [facility] Comment on above: Performed By: #### R ENAL ####[id number] [place] [address] Creatinine [Mass/Vol] 3.20 mg/dL High 0.50 - 1.30 [facility] Comment on above: Performed By: #### R ENAL ####[id number] [place] [address] GFR- AM. 24 mL/min/1.73m2 Abnormal >60 [facility] Comment on above: Result Comment: CALC ULATIONS OF ESTIMATED GFR ARE PERFORMED USING THE MDRD STUDY EQUATION FOR THE IDMS-TRACEABLE CREATININE METHODS. CLIN CHEM 2007;53:766-72 Performed By: #### R ENAL ####[id number] [place] [address] GFR-NON AM. 20 mL/min/1.73m2 Abnormal >60 [facility] Comment on above: Performed By: #### R ENAL ####[id number] [place] [address] Glucose [Mass/Vol] 85 mg/dL Normal 74 - 99 [facility] Comment on above: Performed By: #### R ENAL ####[id number] [place] [address] HCO3 (Bld) [Moles/Vol] 29 mmol/L Normal 21 - 32 [facility] Comment on above: Performed By: #### R ENAL ####[id number] [place] [address] Phosphate [Mass/Vol] 4.2 mg/dL Normal 2.5 - 4.9 [facility] Comment on above: Result Comment: The performance characteristics of phosphorus testing in heparinized plasma have been validated by the individual laboratory site where testing is performed. Testing on heparinized plasma is not approved by the FDA; however, such approval is not necessary. Performed By: #### R ENAL ####[id number] [place] [address] Potassium [Moles/Vol] 3.2 mmol/L Low 3.5 - 5.3 [facility] Comment on above: Performed By: #### R ENAL ####[id number] [place] [address] Sodium [Moles/Vol] 141 mmol/L Normal 136 - 145 [facility] Comment on above: Performed By: #### R ENAL ####[id number] [place] [address] Urea nitrogen [Mass/Vol] 54 mg/dL High 6 - 23 [facility] Comment on above: Performed By: #### R ENAL ####[id number] [place] [address] Albumin [Mass/Vol] 2.8 g/dL Low 3.4 - 5.0 [facility] Comment on above: Performed By: #### R ENAL ####[id number] [place] [address] Anion gap [Moles/Vol] 17 mmol/L Normal 10 - 20 [facility] Comment on above: Performed By: #### R ENAL ####[id number] [place] [address] Calcium [Mass/Vol] 7.4 mg/dL Low 8.6 - 10.6 [facility] Comment on above: Performed By: #### R ENAL ####[id number] [place] [address] Chloride [Moles/Vol] 99 mmol/L Normal 98 - 107 [facility] Comment on above: Performed By: #### R ENAL ####[id number] [place] [address] Creatinine [Mass/Vol] 3.72 mg/dL High 0.50 - 1.30 [facility] Comment on above: Performed By: #### R ENAL ####[id number] [place] [address] GFR- AM. 19 mL/min/1.73m2 Abnormal >60 [facility] Comment on above: Result Comment: CALC ULATIONS OF ESTIMATED GFR ARE PERFORMED USING THE MDRD STUDY EQUATION FOR THE IDMS-TRACEABLE CREATININE METHODS. CLIN CHEM 2007;53:766-72 Performed By: #### R ENAL ####[id number] [place] [address] GFR-NON AM. 16 mL/min/1.73m2 Abnormal >60 [facility] Comment on above: Performed By: #### R ENAL ####[id number] [place] [address] Glucose [Mass/Vol] 97 mg/dL Normal 74 - 99 [facility] Comment on above: Performed By: #### R ENAL ####[id number] [place] [address] HCO3 (Bld) [Moles/Vol] 28 mmol/L Normal 21 - 32 [facility] Comment on above: Performed By: #### R ENAL ####[id number] [place] [address] Phosphate [Mass/Vol] 4.8 mg/dL Normal 2.5 - 4.9 [facility] Comment on above: Result Comment: The performance characteristics of phosphorus testing in heparinized plasma have been validated by the individual laboratory site where testing is performed. Testing on heparinized plasma is not approved by the FDA; however, such approval is not necessary. Performed By: #### R ENAL ####[id number] [place] [address] Potassium [Moles/Vol] 3.7 mmol/L Normal 3.5 - 5.3 [facility] Comment on above: Performed By: #### R ENAL ####[id number] [place] [address] Sodium [Moles/Vol] 140 mmol/L Normal 136 - 145 [facility] Comment on above: Performed By: #### R ENAL ####[id number] [place] [address] Urea nitrogen [Mass/Vol] 57 mg/dL High 6 - 23 [facility] Comment on above: Performed By: #### R ENAL ####[id number] [place] [address] REQUEST-LEUKOREDUCED RED DANNY LSon 04-18-2018 REQUEST-LEUKOREDU MABEL RED CELLS ORDER RECD Normal [facility] Comment on above: Performed By: #### O BLEACHER [employer] PULP ####[id number] [place] [address] TH CHEST 1 VIEWon 04-18-2018 TH CHEST 1 VIEW Patient Name: ADEN PATEL STUDY: TH CHEST 1 VIEW; 04/18/2018 6:59 am INDICATION: Signs/Symptoms: AM rounds. COMPARISON: Chest radiograph from 04/17/2018 ACCESSION NUMBER(S): [id number] ORDERING CLINICIAN: CLARA PADGETT FINDINGS: Endotracheal tube [...] Electronically signed by: KIKI QUEZADA MD Normal [facility] ARTERIAL FULL PANELon 2018 Anion gap [Moles/Vol] 10 mmol/L Normal 10 - 25 [facility] Comment on above: Performed By: #### A FPA3 ####[id number] [place] [address] BASE EXCESS-BLOOD 4.8 mmol/L High -2.0 - 3.0 [facility] Comment on above: Performed By: #### A FPA3 ####[id number] [place] [address] CALCIUM,IONIZED 0.97 mmol/L Low 1.10 - 1.33 [facility] Comment on above: Performed By: #### A FPA3 ####[id number] [place] [address] Chloride [Moles/Vol] 98 mmol/L Normal 98 - 107 [facility] Comment on above: Performed By: #### A FPA3 ####[id number] [place] [address] Glucose [Mass/Vol] 108 mg/dL High 74 - 99 [facility] Comment on above: Performed By: #### A FPA3 ####[id number] [place] [address] Hematocrit (Bld) [Volume fraction] 24.0 % Low 41.0 - 52.0 [facility] Comment on above: Performed By: #### A FPA3 ####[id number] [place] [address] HGB,CALCULATED 8.2 g/dL Low 13.5 - 17.5 [facility] Comment on above: Performed By: #### A FPA3 ####[id number] [place] [address] Lactate [Moles/Vol] 1.0 mmol/L Normal 0.4 - 2.0 [facility] Comment on above: Performed By: #### A FPA3 ####[id number] [place] [address] Oxygen (Bld) [Partial pressure] 81 mm[Hg] Low 85 - 95 [facility] Comment on above: Performed By: #### A FPA3 ####[id number] [place] [address] PCO2 42 mmHg Normal 38 - 42 [facility] Comment on above: Performed By: #### A FPA3 ####[id number] [place] [address] pH (Bld) 7.45 [pH] High 7.38 - 7.42 [facility] Comment on above: Performed By: #### A FPA3 ####[id number] [place] [address] Potassium [Moles/Vol] 3.7 mmol/L Normal 3.5 - 5.3 [facility] Comment on above: Performed By: #### A FPA3 ####[id number] [place] [address] RBC (Bld) [#/Vol] 29.2 mmol/L High 22.0 - 26.0 [facility] Comment on above: Performed By: #### A FPA3 ####[id number] [place] [address] SO2 99 % Normal 94 - 100 [facility] Comment on above: Performed By: #### A FPA3 ####[id number] [place] [address] Sodium [Moles/Vol] 133 mmol/L Low 136 - 145 [facility] Comment on above: Performed By: #### A FPA3 ####[id number] [place] [address] Anion gap [Moles/Vol] 10 mmol/L Normal 10 - 25 [facility] Comment on above: Performed By: #### A FPA3 ####[id number] [place] [address] BASE EXCESS-BLOOD 4.4 mmol/L High -2.0 - 3.0 [facility] Comment on above: Performed By: #### A FPA3 ####[id number] [place] [address] CALCIUM,IONIZED 0.98 mmol/L Low 1.10 - 1.33 [facility] Comment on above: Performed By: #### A FPA3 ####[id number] [place] [address] Chloride [Moles/Vol] 97 mmol/L Low 98 - 107 [facility] Comment on above: Performed By: #### A FPA3 ####[id number] [place] [address] Glucose [Mass/Vol] 118 mg/dL High 74 - 99 [facility] Comment on above: Performed By: #### A FPA3 ####[id number] [place] [address] Hematocrit (Bld) [Volume fraction] 21.0 % Low 41.0 - 52.0 [facility] Comment on above: Performed By: #### A FPA3 ####[id number] [place] [address] HGB,CALCULATED 7.1 g/dL Low 13.5 - 17.5 [facility] Comment on above: Performed By: #### A FPA3 ####[id number] [place] [address] Lactate [Moles/Vol] 1.2 mmol/L Normal 0.4 - 2.0 [facility] Comment on above: Performed By: #### A FPA3 ####[id number] [place] [address] Oxygen (Bld) [Partial pressure] 73 mm[Hg] Low 85 - 95 [facility] Comment on above: Performed By: #### A FPA3 ####[id number] [place] [address] PCO2 44 mmHg High 38 - 42 [facility] Comment on above: Performed By: #### A FPA3 ####[id number] [place] [address] pH (Bld) 7.43 [pH] High 7.38 - 7.42 [facility] Comment on above: Performed By: #### A FPA3 ####[id number] [place] [address] Potassium [Moles/Vol] 4.0 mmol/L Normal 3.5 - 5.3 [facility] Comment on above: Performed By: #### A FPA3 ####[id number] [place] [address] RBC (Bld) [#/Vol] 29.2 mmol/L High 22.0 - 26.0 [facility] Comment on above: Performed By: #### A FPA3 ####[id number] [place] [address] SO2 97 % Normal 94 - 100 [facility] Comment on above: Performed By: #### A FPA3 ####[id number] [place] [address] Sodium [Moles/Vol] 132 mmol/L Low 136 - 145 [facility] Comment on above: Performed By: #### A FPA3 ####[id number] [place] [address] Anion gap [Moles/Vol] 13 mmol/L Normal 10 - 25 [facility] Comment on above: Performed By: #### H EPFP #### [facility] [address] [place] [address] BASE EXCESS-BLOOD 0.9 mmol/L Normal -2.0 - 3.0 [facility] Comment on above: Performed By: #### H EPFP #### [facility] [address] [place] [address] CALCIUM,IONIZED 0.93 mmol/L Low 1.10 - 1.33 [facility] Comment on above: Performed By: #### H EPFP #### [facility] [address] [place] [address] Chloride [Moles/Vol] 96 mmol/L Low 98 - 107 [facility] Comment on above: Performed By: #### H EPFP #### [facility] [address] [place] [address] Glucose [Mass/Vol] 149 mg/dL High 74 - 99 [facility] Comment on above: Performed By: #### H EPFP #### [facility] [address] [place] [address] Hematocrit (Bld) [Volume fraction] 29.0 % Low 41.0 - 52.0 [facility] Comment on above: Performed By: #### H EPFP #### [facility] [address] [place] [address] HGB,CALCULATED 9.9 g/dL Low 13.5 - 17.5 [facility] Comment on above: Performed By: #### H EPFP #### [facility] [address] [place] [address] Lactate [Moles/Vol] 1.5 mmol/L Normal 0.4 - 2.0 [facility] Comment on above: Performed By: #### H EPFP #### [facility] [address] [place] [address] Oxygen (Bld) [Partial pressure] 54 mm[Hg] Low 85 - 95 [facility] Comment on above: Performed By: #### H EPFP #### [facility] [facility] [address] [place] [address] PCO2 52 mmHg High 38 - 42 [facility] Comment on above: Performed By: #### H EPFP #### [facility] [address] [place] [address] pH (Bld) 7.33 [pH] Low 7.38 - 7.42 [facility] Comment on above: Performed By: #### H EPFP #### [facility] [address] [place] [address] Potassium [Moles/Vol] 4.3 mmol/L Normal 3.5 - 5.3 [facility] Comment on above: Performed By: #### H EPFP #### [facility] [address] [place] [address] RBC (Bld) [#/Vol] 27.4 mmol/L High 22.0 - 26.0 [facility] Comment on above: Performed By: #### H EPFP #### [facility] [address] [place] [address] SO2 90 % Low 94 - 100 [facility] Comment on above: Performed By: #### H EPFP #### [facility] [address] [place] [address] Sodium [Moles/Vol] 132 mmol/L Low 136 - 145 [facility] Comment on above: Performed By: #### H EPFP #### [facility] [address] [place] [address] Anion gap [Moles/Vol] 14 mmol/L Normal 10 - 25 [facility] Comment on above: Performed By: #### C BCDF #### [facility] [address] [place] [address] BASE EXCESS-BLOOD 3.1 mmol/L High -2.0 - 3.0 [facility] Comment on above: Performed By: #### C BCDF #### [facility] [address] [place] [address] CALCIUM,IONIZED 0.98 mmol/L Low 1.10 - 1.33 [facility] Comment on above: Performed By: #### C BCDF #### [facility] [address] [place] [address] Chloride [Moles/Vol] 95 mmol/L Low 98 - 107 [facility] Comment on above: Performed By: #### C BCDF #### [facility] [address] [place] [address] Glucose [Mass/Vol] 136 mg/dL High 74 - 99 [facility] Comment on above: Performed By: #### C BCDF #### [facility] [address] [place] [address] Hematocrit (Bld) [Volume fraction] 29.0 % Low 41.0 - 52.0 [facility] Comment on above: Performed By: #### C BCDF #### [facility] [address] [place] [address] HGB,CALCULATED 9.9 g/dL Low 13.5 - 17.5 [facility] Comment on above: Performed By: #### C BCDF #### [facility] [address] [place] [address] Lactate [Moles/Vol] 1.7 mmol/L Normal 0.4 - 2.0 [facility] Comment on above: Performed By: #### C BCDF #### [facility] [address] [place] [address] Oxygen (Bld) [Partial pressure] 60 mm[Hg] Low 85 - 95 [facility] Comment on above: Performed By: #### C BCDF #### [facility] [address] [place] [address] PCO2 37 mmHg Low 38 - 42 [facility] Comment on above: Performed By: #### C BCDF #### [facility] [address] [place] [address] pH (Bld) 7.47 [pH] High 7.38 - 7.42 [facility] Comment on above: Performed By: #### C BCDF #### [facility] [address] [place] [address] Potassium [Moles/Vol] 4.8 mmol/L Normal 3.5 - 5.3 [facility] Comment on above: Performed By: #### C BCDF #### [facility] [address] [place] [address] RBC (Bld) [#/Vol] 26.9 mmol/L High 22.0 - 26.0 [facility] Comment on above: Performed By: #### C BCDF #### [facility] [address] [place] [address] SO2 95 % Normal 94 - 100 [facility] Comment on above: Performed By: #### C BCDF #### [facility] [address] [place] [address] Sodium [Moles/Vol] 131 mmol/L Low 136 - 145 [facility] Comment on above: Performed By: #### C BCDF #### [facility] [address] [place] [address] Anion gap [Moles/Vol] 17 mmol/L Normal 10 - 25 [facility] Comment on above: Performed By: #### C OAGS #### [facility] [address] [place] [address] BASE EXCESS-BLOOD -0.2 mmol/L Normal -2.0 - 3.0 [facility] Comment on above: Performed By: #### C OAGS #### [facility] [address] [place] [address] CALCIUM,IONIZED 1.01 mmol/L Low 1.10 - 1.33 [facility] Comment on above: Performed By: #### C OAGS #### [facility] [address] [place] [address] Chloride [Moles/Vol] 94 mmol/L Low 98 - 107 [facility] Comment on above: Performed By: #### C OAGS #### [facility] [address] [place] [address] Glucose [Mass/Vol] 138 mg/dL High 74 - 99 [facility] Comment on above: Performed By: #### C OAGS #### [facility] [address] [place] [address] Hematocrit (Bld) [Volume fraction] 24.0 % Low 41.0 - 52.0 [facility] Comment on above: Performed By: #### C OAGS #### [facility] [address] [place] [address] HGB,CALCULATED 8.2 g/dL Low 13.5 - 17.5 [facility] Comment on above: Performed By: #### C OAGS #### [facility] [address] [place] [address] Lactate [Moles/Vol] 2.2 mmol/L High 0.4 - 2.0 [facility] Comment on above: Performed By: #### C OAGS #### [facility] [address] [place] [address] Oxygen (Bld) [Partial pressure] 69 mm[Hg] Low 85 - 95 [facility] Comment on above: Performed By: #### C OAGS #### [facility] [address] [place] [address] PCO2 35 mmHg Low 38 - 42 [facility] Comment on above: Performed By: #### C OAGS #### [facility] [address] [place] [address] pH (Bld) 7.44 [pH] High 7.38 - 7.42 [facility] Comment on above: Performed By: #### C OAGS #### [facility] [address] [place] [address] Potassium [Moles/Vol] 4.8 mmol/L Normal 3.5 - 5.3 [facility] Comment on above: Performed By: #### C OAGS #### [facility] [address] [place] [address] RBC (Bld) [#/Vol] 23.8 mmol/L Normal 22.0 - 26.0 [facility] Comment on above: Performed By: #### C OAGS #### [facility] [address] [place] [address] SO2 96 % Normal 94 - 100 [facility] Comment on above: Performed By: #### C OAGS #### [facility] [address] [place] [address] Sodium [Moles/Vol] 130 mmol/L Low 136 - 145 [facility] Comment on above: Performed By: #### C OAGS #### [facility] [address] [place] [address] ABDOMEN AND PELVIS WO CONTRASTon 04-17-[address] ABDOMEN AND PELVIS WO CONTRAST Patient Name: ADEN PATEL STUDY: BD CT ABDOMEN AND PELVIS WO CONTRAST; 04/17/2018 4:22 am INDICATION: Signs/Symptoms: evaluate for colonic anastamotic leak s/p EC fistula + colovesicular fistula takedown, Lie Flat: Yes. COMPARISON: None ACCESSION NUMBER(S): [id number] ORDERING CLINICIAN: CLARA EATON TECHNIQUE: CT of [...] spine. Findings discussed with Dr. Desir by vice president talent management Dr. Alex at 10:37A.M 04/17/2018. I personally reviewed the images/study and Dr. Javier's interpretation and I agree with the findings as stated. This study was performed , analyzed and interpreted at [facility], [place], [place]. Electronically signed by: LENA JETT MD Normal [facility] CALCIUM, IONIZEDon 9 CALCIUM,IONIZED 0.94 mmol/L Low 1.10 - 1.33 [facility] Comment on above: Result Comment: The performance characteristics of ionized calcium tested in heparinized plasma or serum have been validated by the individual laboratory site where testing is performed. Testing on heparinized plasma or serum is not approved by the FDA; however, such approval is not necessary. Performed By: #### I ONC1 ####[id number] [place] [address] CALCIUM,IONIZED 0.88 mmol/L Low 1.10 - 1.33 [facility] Comment on above: Result Comment: The performance characteristics of ionized calcium tested in heparinized plasma or serum have been validated by the individual laboratory site where testing is performed. Testing on heparinized plasma or serum is not approved by the FDA; however, such approval is not necessary. Performed By: #### M G #### [facility] [address] [place] [address] CALCIUM,IONIZED 0.99 mmol/L Low 1.10 - 1.33 [facility] Comment on above: Result Comment: The performance characteristics of ionized calcium tested in heparinized plasma or serum have been validated by the individual laboratory site where testing is performed. Testing on heparinized plasma or serum is not approved by the FDA; however, such approval is not necessary. Performed By: #### C BCDF #### [facility] [address] [place] [address] CBCon 04-17-2018 Erythrocyte distribution width (RBC) [Ratio] 14.8 % High 11.5 - 14.5 [facility] Comment on above: Performed By: #### C BC ####[id number] [place] [address] Hematocrit (Bld) [Volume fraction] 25.9 % Low 41.0 - 52.0 [facility] Comment on above: Performed By: #### C BC ####[id number] [place] [address] Hemoglobin (Bld) [Mass/Vol] 8.9 g/dL Low 13.5 - 17.5 [facility] Comment on above: Performed By: #### C BC ####[id number] [place] [address] MCHC (RBC) [Mass/Vol] 34.4 g/dL Normal 32.0 - 36.0 [facility] Comment on above: Performed By: #### C BC ####[id number] [place] [address] MCV (RBC) [Entitic vol] 91 fL Normal 80 - 100 [facility] Comment on above: Performed By: #### C BC ####[id number] [place] [address] Nucleated RBC/100 WBC (Bld) [Ratio] 0.1 /100 WBC Normal 0.0-0.0 [facility] Comment on above: Performed By: #### C BC ####[id number] [place] [address] Platelets (Bld) [#/Vol] 137 10*3/uL Low 150 - 450 [facility] Comment on above: Performed By: #### C BC ####[id number] [place] [address] RBC (Bld) [#/Vol] 2.85 x10E12/L Low 4.50 - 5.90 [facility] Comment on above: Performed By: #### C BC ####[id number] [place] [address] WBC (Bld) [#/Vol] 8.5 10*3/uL Normal 4.4 - 11.3 [facility] Comment on above: Performed By: #### C BC ####[id number] [place] [address] Erythrocyte distribution width (RBC) [Ratio] 15.2 % High 11.5 - 14.5 [facility] Comment on above: Performed By: #### C BC ####[id number] [place] [address] Hematocrit (Bld) [Volume fraction] 23.7 % Low 41.0 - 52.0 [facility] Comment on above: Performed By: #### C BC ####[id number] [place] [address] Hemoglobin (Bld) [Mass/Vol] 8.2 g/dL Low 13.5 - 17.5 [facility] Comment on above: Performed By: #### C BC ####[id number] [place] [address] MCHC (RBC) [Mass/Vol] 34.6 g/dL Normal 32.0 - 36.0 [facility] Comment on above: Performed By: #### C BC ####[id number] [place] [address] MCV (RBC) [Entitic vol] 90 fL Normal 80 - 100 [facility] Comment on above: Performed By: #### C BC ####[id number] [place] [address] Nucleated RBC/100 WBC (Bld) [Ratio] 0.0 /100 WBC Normal 0.0-0.0 [facility] Comment on above: Performed By: #### C BC ####[id number] [place] [address] Platelets (Bld) [#/Vol] 142 10*3/uL Low 150 - 450 [facility] Comment on above: Performed By: #### C BC ####[id number] [place] [address] RBC (Bld) [#/Vol] 2.64 x10E12/L Low 4.50 - 5.90 [facility] Comment on above: Performed By: #### C BC ####[id number] [place] [address] WBC (Bld) [#/Vol] 8.0 10*3/uL Normal 4.4 - 11.3 [facility] Comment on above: Performed By: #### C BC ####[id number] [place] [address] Erythrocyte distribution width (RBC) [Ratio] 15.1 % High 11.5 - 14.5 [facility] Comment on above: Performed By: #### C BC ####[id number] [place] [address] Hematocrit (Bld) [Volume fraction] 22.2 % Low 41.0 - 52.0 [facility] Comment on above: Performed By: #### C BC ####[id number] [place] [address] Hemoglobin (Bld) [Mass/Vol] 7.7 g/dL Low 13.5 - 17.5 [facility] Comment on above: Performed By: #### C BC ####[id number] [place] [address] MCHC (RBC) [Mass/Vol] 34.7 g/dL Normal 32.0 - 36.0 [facility] Comment on above: Performed By: #### C BC ####[id number] [place] [address] MCV (RBC) [Entitic vol] 91 fL Normal 80 - 100 [facility] Comment on above: Performed By: #### C BC ####[id number] [place] [address] Nucleated RBC/100 WBC (Bld) [Ratio] 0.0 /100 WBC Normal 0.0-0.0 [facility] Comment on above: Performed By: #### C BC ####[id number] [place] [address] Platelets (Bld) [#/Vol] 145 10*3/uL Low 150 - 450 [facility] Comment on above: Performed By: #### C BC ####[id number] [place] [address] RBC (Bld) [#/Vol] 2.44 x10E12/L Low 4.50 - 5.90 [facility] Comment on above: Performed By: #### C BC ####[id number] [place] [address] WBC (Bld) [#/Vol] 6.5 10*3/uL Normal 4.4 - 11.3 [facility] Comment on above: Performed By: #### C BC ####[id number] [place] [address] Erythrocyte distribution width (RBC) [Ratio] 14.6 % High 11.5 - 14.5 [facility] Comment on above: Performed By: #### H EPFP #### [facility] [address] [place] [address] Hematocrit (Bld) [Volume fraction] 29.7 % Low 41.0 - 52.0 [facility] Comment on above: Performed By: #### H EPFP #### [facility] [address] [place] [address] Hemoglobin (Bld) [Mass/Vol] 10.0 g/dL Low 13.5 - 17.5 [facility] Comment on above: Performed By: #### H EPFP #### [facility] [address] [place] [address] MCHC (RBC) [Mass/Vol] 33.7 g/dL Normal 32.0 - 36.0 [facility] Comment on above: Performed By: #### H EPFP #### [facility] [address] [place] [address] MCV (RBC) [Entitic vol] 91 fL Normal 80 - 100 [facility] Comment on above: Performed By: #### H EPFP #### [facility] [address] [place] [address] Nucleated RBC/100 WBC (Bld) [Ratio] 0.0 /100 WBC Normal 0.0-0.0 [facility] Comment on above: Performed By: #### H EPFP #### [facility] [address] [place] [address] Platelets (Bld) [#/Vol] 185 10*3/uL Normal 150 - 450 [facility] Comment on above: Performed By: #### H EPFP #### [facility] [address] [place] [address] RBC (Bld) [#/Vol] 3.25 x10E12/L Low 4.50 - 5.90 [facility] Comment on above: Performed By: #### H EPFP #### [facility] [address] [place] [address] WBC (Bld) [#/Vol] 8.0 10*3/uL Normal 4.4 - 11.3 [facility] Comment on above: Performed By: #### H EPFP #### [facility] [address] [place] [address] Erythrocyte distribution width (RBC) [Ratio] 14.6 % High 11.5 - 14.5 [facility] Comment on above: Performed By: #### H EPFP #### [facility] [address] [place] [address] Hematocrit (Bld) [Volume fraction] 25.2 % Low 41.0 - 52.0 [facility] Comment on above: Performed By: #### H EPFP #### [facility] [address] [place] [address] Hemoglobin (Bld) [Mass/Vol] 8.7 g/dL Low 13.5 - 17.5 [facility] Comment on above: Performed By: #### H EPFP #### [facility] [address] [place] [address] MCHC (RBC) [Mass/Vol] 34.5 g/dL Normal 32.0 - 36.0 [facility] Comment on above: Performed By: #### H EPFP #### [facility] [address] [place] [address] MCV (RBC) [Entitic vol] 92 fL Normal 80 - 100 [facility] Comment on above: Performed By: #### H EPFP #### [facility] [address] [place] [address] Nucleated RBC/100 WBC (Bld) [Ratio] 0.0 /100 WBC Normal 0.0-0.0 [facility] Comment on above: Performed By: #### H EPFP #### [facility] [address] [place] [address] Platelets (Bld) [#/Vol] 212 10*3/uL Normal 150 - 450 [facility] Comment on above: Performed By: #### H EPFP #### [facility] [address] [place] [address] RBC (Bld) [#/Vol] 2.74 x10E12/L Low 4.50 - 5.90 [facility] Comment on above: Performed By: #### H EPFP #### [facility] [address] [place] [address] WBC (Bld) [#/Vol] 9.1 10*3/uL Normal 4.4 - 11.3 [facility] Comment on above: Performed By: #### H EPFP #### [facility] [address] [place] [address] Erythrocyte distribution width (RBC) [Ratio] 14.3 % Normal 11.5 - 14.5 [facility] Comment on above: Performed By: #### C BCDF #### [facility] [address] [place] [address] Hematocrit (Bld) [Volume fraction] 25.9 % Low 41.0 - 52.0 [facility] Comment on above: Performed By: #### C BCDF #### [facility] [address] [place] [address] Hemoglobin (Bld) [Mass/Vol] 9.0 g/dL Low 13.5 - 17.5 [facility] Comment on above: Performed By: #### C BCDF #### [facility] [address] [place] [address] MCHC (RBC) [Mass/Vol] 34.7 g/dL Normal 32.0 - 36.0 [facility] Comment on above: Performed By: #### C BCDF #### [facility] [address] [place] [address] MCV (RBC) [Entitic vol] 92 fL Normal 80 - 100 [facility] Comment on above: Performed By: #### C BCDF #### [facility] [address] [place] [address] Nucleated RBC/100 WBC (Bld) [Ratio] 0.0 /100 WBC Normal 0.0-0.0 [facility] Comment on above: Performed By: #### C BCDF #### [facility] [address] [place] [address] Platelets (Bld) [#/Vol] 214 10*3/uL Normal 150 - 450 [facility] Comment on above: Performed By: #### C BCDF #### [facility] [address] [place] [address] RBC (Bld) [#/Vol] 2.82 x10E12/L Low 4.50 - 5.90 [facility] Comment on above: Performed By: #### C BCDF #### [facility] [address] [place] [address] WBC (Bld) [#/Vol] 8.9 10*3/uL Normal 4.4 - 11.3 [facility] Comment on above: Performed By: #### C BCDF #### [facility] [address] [place] [address] Erythrocyte distribution width (RBC) [Ratio] 14.6 % High 11.5 - 14.5 [facility] Comment on above: Performed By: #### C OAGS #### [facility] [address] [place] [address] Hematocrit (Bld) [Volume fraction] 24.8 % Low 41.0 - 52.0 [facility] Comment on above: Performed By: #### C OAGS #### [facility] [address] [place] [address] Hemoglobin (Bld) [Mass/Vol] 9.1 g/dL Low 13.5 - 17.5 [facility] Comment on above: Performed By: #### C OAGS #### [facility] [address] [place] [address] MCHC (RBC) [Mass/Vol] 36.7 g/dL High 32.0 - 36.0 [facility] Comment on above: Performed By: #### C OAGS #### [facility] [address] [place] [address] MCV (RBC) [Entitic vol] 87 fL Normal 80 - 100 [facility] Comment on above: Performed By: #### C OAGS #### [facility] [address] [place] [address] Nucleated RBC/100 WBC (Bld) [Ratio] 0.0 /100 WBC Normal 0.0-0.0 [facility] Comment on above: Performed By: #### C OAGS #### [facility] [address] [place] [address] Platelets (Bld) [#/Vol] 210 10*3/uL Normal 150 - 450 [facility] Comment on above: Performed By: #### C OAGS #### [facility] [address] [place] [address] RBC (Bld) [#/Vol] 2.85 x10E12/L Low 4.50 - 5.90 [facility] Comment on above: Performed By: #### C OAGS #### [facility] [address] [place] [address] WBC (Bld) [#/Vol] 7.2 10*3/uL Normal 4.4 - 11.3 [facility] Comment on above: Performed By: #### C OAGS #### [facility] [address] [place] [address] COAGULATION SCREENon 019 aPTT Coag (Bld) [Time] 35 s Normal 28 - 38 [facility] Comment on above: Result Comment: Note new reference range as of 01/17/2018. THE APTT IS NO LONGER USED FOR MONITORING UNFRACTIONATED HEPARIN THERAPY. FOR MONITORING HEPARIN THERAPY, USE THE HEPARIN ASSAY. Performed By: #### C OAGS ####[id number] [place] [address] INR Coag (PPP) [Relative time] 1.1 {INR} Normal 0.9 - 1.1 [facility] Comment on above: Performed By: #### C OAGS ####[id number] [place] [address] PT Coag (PPP) [Time] 12.0 s Normal 9.7 - 12.7 [facility] Comment on above: Result Comment: Note new reference range as of 01/17/2018. Performed By: #### C OAGS ####[id number] [place] [address] aPTT Coag (Bld) [Time] 31 s Normal 28 - 38 [facility] Comment on above: Result Comment: Note new reference range as of 01/17/2018. THE APTT IS NO LONGER USED FOR MONITORING UNFRACTIONATED HEPARIN THERAPY. FOR MONITORING HEPARIN THERAPY, USE THE HEPARIN ASSAY. Performed By: #### M G #### [facility] [address] [place] [address] INR Coag (PPP) [Relative time] 1.1 {INR} Normal 0.9 - 1.1 [facility] Comment on above: Performed By: #### M G #### [facility] [address] [place] [address] PT Coag (PPP) [Time] 11.7 s Normal 9.7 - 12.7 [facility] Comment on above: Result Comment: Note new reference range as of 01/17/2018. Performed By: #### M G #### [facility] [address] [place] [address] aPTT Coag (Bld) [Time] 34 s Normal 28 - 38 [facility] Comment on above: Result Comment: Note new reference range as of 01/17/2018. THE APTT IS NO LONGER USED FOR MONITORING UNFRACTIONATED HEPARIN THERAPY. FOR MONITORING HEPARIN THERAPY, USE THE HEPARIN ASSAY. Performed By: #### H EPFP #### [facility] [address] [place] [address] INR Coag (PPP) [Relative time] 1.1 {INR} Normal 0.9 - 1.1 [facility] Comment on above: Performed By: #### H EPFP #### [facility] [address] [place] [address] PT Coag (PPP) [Time] 12.0 s Normal 9.7 - 12.7 [facility] Comment on above: Result Comment: Note new reference range as of 01/17/2018. Performed By: #### H EPFP #### [facility] [address] [place] [address] aPTT Coag (Bld) [Time] 33 s Normal 28 - 38 [facility] Comment on above: Result Comment: Note new reference range as of 01/17/2018. THE APTT IS NO LONGER USED FOR MONITORING UNFRACTIONATED HEPARIN THERAPY. FOR MONITORING HEPARIN THERAPY, USE THE HEPARIN ASSAY. Performed By: #### C BCDF #### [facility] [address] [place] [address] INR Coag (PPP) [Relative time] 1.1 {INR} Normal 0.9 - 1.1 [facility] [facility] Comment on above: Performed By: #### C BCDF #### [facility] [address] [place] [address] PT Coag (PPP) [Time] 12.1 s Normal 9.7 - 12.7 [facility] Comment on above: Result Comment: Note new reference range as of 01/17/2018. Performed By: #### C BCDF #### [facility] [address] [place] [address] aPTT Coag (Bld) [Time] 32 s Normal 28 - 38 [facility] Comment on above: Result Comment: Note new reference range as of 01/17/2018. THE APTT IS NO LONGER USED FOR MONITORING UNFRACTIONATED HEPARIN THERAPY. FOR MONITORING HEPARIN THERAPY, USE THE HEPARIN ASSAY. Performed By: #### C OAGS #### [facility] [address] [place] [address] INR Coag (PPP) [Relative time] 1.1 {INR} Normal 0.9 - 1.1 [facility] Comment on above: Performed By: #### C OAGS #### [facility] [address] [place] [address] PT Coag (PPP) [Time] 11.8 s Normal 9.7 - 12.7 [facility] Comment on above: Result Comment: Note new reference range as of 01/17/2018. Performed By: #### C OAGS #### [facility] [address] [place] [address] CREATINE KINASEon 04-17-2018 CK [Catalytic activity/Vol] 1170 U/L High 0 - 325 [facility] Comment on above: Performed By: #### C K ####[id number] [place] [address] Clinical Event Note-Renal pr ogress noteon 04-17-2018 [...] MD, MS, SAMANTHA CHRISTINE Nephrology fellow P [id number] Electronic Signatures: Inés Henson ( (Resident)) (Signed 17-Apr-2018 12:46) Authored: Event Last Updated: 17-Apr-2018 12:46 by Inés Henson (Resident)) Normal [facility] ELECTROLYTE, URINE SPOTon CHLORIDE,URINE SPOT <15 Normal Not Established [facility] Comment on above: Performed By: #### H EPFP #### [facility] [address] [place] [address] CHLORIDE/CREAT RATIO SEE COMMENT Normal 23 - 275 [facility] Comment on above: Result Comment: One or more analytes used in this calculation is outside of the analytical measurement range. Calculation cannot be performed. Performed By: #### H EPFP #### [facility] [address] [place] [address] CREATININE,URINE 102.0 mg/dL Normal 20.0 - 370.0 [facility] Comment on above: Performed By: #### H EPFP #### [facility] [address] [place] [address] POT/CREAT RATIO 81 mmol/g Creat Normal Not Established [facility] Comment on above: Performed By: #### H EPFP #### [facility] [address] [place] [address] POTASSIUM,URINE SPOT 83 mmol/L Normal Not Established [facility] Comment on above: Performed By: #### H EPFP #### [facility] [address] [place] [address] Sodium (U) [Moles/Vol] 22 mmol/L Normal Not Established [facility] Comment on above: Performed By: #### H EPFP #### [facility] [address] [place] [address] SODIUM/CREAT RATIO 22 mmol/g Creat Normal Not Established [facility] Comment on above: Performed By: #### H EPFP #### [facility] [address] [place] [address] UREA NITROGEN,URINE 351 mg/dL Normal Not Established [facility] Comment on above: Performed By: #### H EPFP #### [facility] [address] [place] [address] UREA NITROGEN/CREAT RATIO 3.4 g/g Creat Normal Not Established [facility] Comment on above: Performed By: #### H EPFP #### [facility] [address] [place] [address] OSMOLALITY,URINE SPOT 358 mOsm/kg Normal 200 - 1200 [facility] Comment on above: Performed By: #### H EPFP #### [facility] [address] [place] [address] EMR ADDONon 04-17-2018 ADDON CONFIRMATION REQUEST REC'D Normal [facility] Comment on above: Performed By: #### M G #### [facility] [address] [place] [address] FIBRINOGENon 04-17-2018 FIBRINOGEN 571 mg/dL High 200 - 400 [facility] Comment on above: Performed By: #### M G #### [facility] [address] [place] [address] FIBRINOGEN 603 mg/dL High 200 - 400 [facility] Comment on above: Performed By: #### C BCDF #### [facility] [address] [place] [address] FIBRINOGEN 569 mg/dL High 200 - 400 [facility] Comment on above: Performed By: #### C OAGS #### [facility] [address] [place] [address] GLUCOSE-POCTon 04-17-2018 Glucose [Mass/Vol] 112 mg/dL High 74 - 99 [facility] Comment on above: Performed By: #### G VAISHALI ####[id number] [place] [address] Glucose [Mass/Vol] 135 mg/dL High 74 - 99 [facility] Comment on above: Performed By: #### G VAISHALI ####[id number] [place] [address] Glucose [Mass/Vol] 148 mg/dL High 74 - 99 [facility] Comment on above: Performed By: #### M G #### [facility] [address] [place] [address] Glucose [Mass/Vol] 145 mg/dL High 74 - 99 [facility] Comment on above: Performed By: #### C BCDF #### [facility] [address] [place] [address] Glucose [Mass/Vol] 128 mg/dL High 74 - 99 [facility] Comment on above: Performed By: #### C BCDF #### [facility] [address] [place] [address] History and Physical - Surgi vasiliy Update [...] Updated: 20-Apr-2018 06:00 by Nolvia Colmenares) Normal [facility] MAGNESIUMon 04-17-2018 Magnesium [Mass/Vol] 2.07 mg/dL Normal 1.60 - 2.40 [facility] Comment on above: Performed By: #### M G #### [facility] [address] [place] [address] Magnesium [Mass/Vol] 2.17 mg/dL Normal 1.60 - 2.40 [facility] Comment on above: Performed By: #### C BCDF #### [facility] [address] [place] [address] Magnesium [Mass/Vol] 2.06 mg/dL Normal 1.60 - 2.40 [facility] Comment on above: Performed By: #### C OAGS #### [facility] [address] 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 POSTOPERATIVE DIAGNOSIS: Hemoperitoneum and patchy ischemia of the small bowel. OPERATION/PROCEDURE: Exploratory laparotomy, evacuation of hematoma, omentectomy, placement of ABThera wound VAC. 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 Dr. Blake. 2. Dr. Aragon ANESTHESIA: [...] TT: 04/22/2018 01:22 PM EST DICTATION NUMBER: [id number] [facility] JOB NUMBER: [id number] CC: Quentin Rangel, [id number] Electronically Signed by Dr. Nolvia Colmenares 05/03/2018 02:53:46 PM Normal [facility] PLASMAon 04-17-2018 PLASMA ORDER RECD Normal [facility] Comment on above: Performed By: #### H EPFP #### [facility] [address] [place] [address] RENAL FUNCTION PANELon 04-17 Albumin [Mass/Vol] 3.1 g/dL Low 3.4 - 5.0 [facility] Comment on above: Performed By: #### R ENAL ####[id number] [place] [address] Anion gap [Moles/Vol] 19 mmol/L Normal 10 - 20 [facility] Comment on above: Performed By: #### R ENAL ####[id number] [place] [address] Calcium [Mass/Vol] 7.4 mg/dL Low 8.6 - 10.6 [facility] Comment on above: Performed By: #### R ENAL ####[id number] [place] [address] Chloride [Moles/Vol] 97 mmol/L Low 98 - 107 [facility] Comment on above: Performed By: #### R ENAL ####[id number] [place] [address] Creatinine [Mass/Vol] 4.18 mg/dL High 0.50 - 1.30 [facility] Comment on above: Performed By: #### R ENAL ####[id number] [place] [address] GFR- AM. 17 mL/min/1.73m2 Abnormal >60 [facility] Comment on above: Result Comment: CALC ULATIONS OF ESTIMATED GFR ARE PERFORMED USING THE MDRD STUDY EQUATION FOR THE IDMS-TRACEABLE CREATININE METHODS. CLIN CHEM 2007;53:766-72 Performed By: #### R ENAL ####[id number] [place] [address] GFR-NON AM. 14 mL/min/1.73m2 Abnormal >60 [facility] Comment on above: Performed By: #### R ENAL ####[id number] [place] [address] Glucose [Mass/Vol] 126 mg/dL High 74 - 99 [facility] Comment on above: Performed By: #### R ENAL ####[id number] [place] [address] HCO3 (Bld) [Moles/Vol] 26 mmol/L Normal 21 - 32 [facility] Comment on above: Performed By: #### R ENAL ####[id number] [place] [address] Phosphate [Mass/Vol] 6.1 mg/dL High 2.5 - 4.9 [facility] Comment on above: Result Comment: The performance characteristics of phosphorus testing in heparinized plasma have been validated by the individual laboratory site where testing is performed. Testing on heparinized plasma is not approved by the FDA; however, such approval is not necessary. Performed By: #### R ENAL ####[id number] [place] [address] Potassium [Moles/Vol] 4.4 mmol/L Normal 3.5 - 5.3 [facility] Comment on above: Performed By: #### R ENAL ####[id number] [place] [address] Sodium [Moles/Vol] 138 mmol/L Normal 136 - 145 [facility] Comment on above: Performed By: #### R ENAL ####[id number] [place] [address] Urea nitrogen [Mass/Vol] 59 mg/dL High 6 - 23 [facility] Comment on above: Performed By: #### R ENAL ####[id number] [place] [address] Albumin [Mass/Vol] 2.6 g/dL Low 3.4 - 5.0 [facility] Comment on above: Performed By: #### M G #### [facility] [address] [place] [address] Anion gap [Moles/Vol] 18 mmol/L Normal 10 - 20 [facility] Comment on above: Performed By: #### M G #### [facility] [address] [place] [address] Calcium [Mass/Vol] 7.2 mg/dL Low 8.6 - 10.6 [facility] Comment on above: Performed By: #### M G #### [facility] [address] [place] [address] Chloride [Moles/Vol] 95 mmol/L Low 98 - 107 [facility] Comment on above: Performed By: #### M G #### [facility] [address] [place] [address] Creatinine [Mass/Vol] 4.46 mg/dL High 0.50 - 1.30 [facility] Comment on above: Performed By: #### M G #### [facility] [address] [place] [address] GFR- AM. 16 mL/min/1.73m2 Abnormal >60 [facility] Comment on above: Result Comment: CALC ULATIONS OF ESTIMATED GFR ARE PERFORMED USING THE MDRD STUDY EQUATION FOR THE IDMS-TRACEABLE CREATININE METHODS. CLIN CHEM 2007;53:766-72 Performed By: #### M G #### [facility] [address] [place] [address] GFR-NON AM. 13 mL/min/1.73m2 Abnormal >60 [facility] Comment on above: Performed By: #### M G #### [facility] [address] [place] [address] Glucose [Mass/Vol] 150 mg/dL High 74 - 99 [facility] Comment on above: Performed By: #### M G #### [facility] [address] [place] [address] HCO3 (Bld) [Moles/Vol] 28 mmol/L Normal 21 - 32 [facility] Comment on above: Performed By: #### M G #### [facility] [address] [place] [address] Phosphate [Mass/Vol] 7.1 mg/dL High 2.5 - 4.9 [facility] Comment on above: Result Comment: The performance characteristics of phosphorus testing in heparinized plasma have been validated by the individual laboratory site where testing is performed. Testing on heparinized plasma is not approved by the FDA; however, such approval is not necessary. Performed By: #### M G #### [facility] [address] [place] [address] Potassium [Moles/Vol] 4.7 mmol/L Normal 3.5 - 5.3 [facility] Comment on above: Performed By: #### M G #### [facility] [address] [place] [address] Sodium [Moles/Vol] 136 mmol/L Normal 136 - 145 [facility] Comment on above: Performed By: #### M G #### [facility] [address] [place] [address] Urea nitrogen [Mass/Vol] 61 mg/dL High 6 - 23 [facility] Comment on above: Performed By: #### M G #### [facility] [address] [place] [address] Albumin [Mass/Vol] 2.7 g/dL Low 3.4 - 5.0 [facility] Comment on above: Performed By: #### C BCDF #### [facility] [address] [place] [address] Anion gap [Moles/Vol] 20 mmol/L Normal 10 - 20 [facility] Comment on above: Performed By: #### C BCDF #### [facility] [address] [place] [address] Calcium [Mass/Vol] 7.6 mg/dL Low 8.6 - 10.6 [facility] Comment on above: Performed By: #### C BCDF #### [facility] [address] [place] [address] Chloride [Moles/Vol] 94 mmol/L Low 98 - 107 [facility] Comment on above: Performed By: #### C BCDF #### [facility] [address] [place] [address] Creatinine [Mass/Vol] 4.68 mg/dL High 0.50 - 1.30 [facility] Comment on above: Performed By: #### C BCDF #### [facility] [address] [place] [address] GFR- AM. 16 mL/min/1.73m2 Abnormal >60 [facility] Comment on above: Result Comment: CALC ULATIONS OF ESTIMATED GFR ARE PERFORMED USING THE MDRD STUDY EQUATION FOR THE IDMS-TRACEABLE CREATININE METHODS. CLIN CHEM 2007;53:766-72 Performed By: #### C BCDF #### [facility] [address] [place] [address] GFR-NON AM. 13 mL/min/1.73m2 Abnormal >60 [facility] Comment on above: Performed By: #### C BCDF #### [facility] [address] [place] [address] Glucose [Mass/Vol] 131 mg/dL High 74 - 99 [facility] Comment on above: Performed By: #### C BCDF #### [facility] [address] [place] [address] HCO3 (Bld) [Moles/Vol] 25 mmol/L Normal 21 - 32 [facility] Comment on above: Performed By: #### C BCDF #### [facility] [address] [place] [address] Phosphate [Mass/Vol] 5.8 mg/dL High 2.5 - 4.9 [facility] Comment on above: Result Comment: The performance characteristics of phosphorus testing in heparinized plasma have been validated by the individual laboratory site where testing is performed. Testing on heparinized plasma is not approved by the FDA; however, such approval is not necessary. Performed By: #### C BCDF #### [facility] [address] [place] [address] Potassium [Moles/Vol] 5.0 mmol/L Normal 3.5 - 5.3 [facility] Comment on above: Performed By: #### C BCDF #### [facility] [address] [place] [address] Sodium [Moles/Vol] 134 mmol/L Low 136 - 145 [facility] Comment on above: Performed By: #### C BCDF #### [facility] [address] [place] [address] Urea nitrogen [Mass/Vol] 61 mg/dL High 6 - 23 [facility] Comment on above: Performed By: #### C BCDF #### [facility] [address] [place] [address] Albumin [Mass/Vol] 2.9 g/dL Low 3.4 - 5.0 [facility] Comment on above: Performed By: #### C BCDF #### [facility] [address] [place] [address] Anion gap [Moles/Vol] 21 mmol/L High 10 - 20 [facility] Comment on above: Performed By: #### C BCDF #### [facility] [address] [place] [address] Calcium [Mass/Vol] 7.8 mg/dL Low 8.6 - 10.6 [facility] Comment on above: Performed By: #### C BCDF #### [facility] [address] [place] [address] Chloride [Moles/Vol] 94 mmol/L Low 98 - 107 [facility] Comment on above: Performed By: #### C BCDF #### [facility] [address] [place] [address] Creatinine [Mass/Vol] 4.70 mg/dL High 0.50 - 1.30 [facility] Comment on above: Performed By: #### C BCDF #### [facility] [address] [place] [address] GFR- AM. 16 mL/min/1.73m2 Abnormal >60 [facility] Comment on above: Result Comment: CALC ULATIONS OF ESTIMATED GFR ARE PERFORMED USING THE MDRD STUDY EQUATION FOR THE IDMS-TRACEABLE CREATININE METHODS. CLIN CHEM 2007;53:766-72 Performed By: #### C BCDF #### [facility] [address] [place] [address] GFR-NON AM. 13 mL/min/1.73m2 Abnormal >60 [facility] Comment on above: Performed By: #### C BCDF #### [facility] [address] [place] [address] Glucose [Mass/Vol] 141 mg/dL High 74 - 99 [facility] Comment on above: Performed By: #### C BCDF #### [facility] [address] [place] [address] HCO3 (Bld) [Moles/Vol] 24 mmol/L Normal 21 - 32 [facility] Comment on above: Performed By: #### C BCDF #### [facility] [address] [place] [address] Phosphate [Mass/Vol] 6.1 mg/dL High 2.5 - 4.9 [facility] Comment on above: Result Comment: The performance characteristics of phosphorus testing in heparinized plasma have been validated by the individual laboratory site where testing is performed. Testing on heparinized plasma is not approved by the FDA; however, such approval is not necessary. Performed By: #### C BCDF #### [facility] [address] [place] [address] Potassium [Moles/Vol] 5.0 mmol/L Normal 3.5 - 5.3 [facility] Comment on above: Performed By: #### C BCDF #### [facility] [address] [place] [address] Sodium [Moles/Vol] 134 mmol/L Low 136 - 145 [facility] Comment on above: Performed By: #### C BCDF #### [facility] [address] [place] [address] Urea nitrogen [Mass/Vol] 60 mg/dL High 6 - 23 [facility] Comment on above: Performed By: #### C BCDF #### [facility] [address] [place] [address] Albumin [Mass/Vol] 3.0 g/dL Low 3.4 - 5.0 [facility] Comment on above: Performed By: #### C OAGS #### [facility] [address] [place] [address] Anion gap [Moles/Vol] 19 mmol/L Normal 10 - 20 [facility] Comment on above: Performed By: #### C OAGS #### [facility] [address] [place] [address] Calcium [Mass/Vol] 8.0 mg/dL Low 8.6 - 10.6 [facility] Comment on above: Performed By: #### C OAGS #### [facility] [address] [place] [address] Chloride [Moles/Vol] 96 mmol/L Low 98 - 107 [facility] Comment on above: Performed By: #### C OAGS #### [facility] [address] [place] [address] Creatinine [Mass/Vol] 4.43 mg/dL High 0.50 - 1.30 [facility] Comment on above: Performed By: #### C OAGS #### [facility] [address] [place] [address] GFR- AM. 16 mL/min/1.73m2 Abnormal >60 [facility] Comment on above: Result Comment: CALC ULATIONS OF ESTIMATED GFR ARE PERFORMED USING THE MDRD STUDY EQUATION FOR THE IDMS-TRACEABLE CREATININE METHODS. CLIN CHEM 2007;53:766-72 Performed By: #### C OAGS #### [facility] [address] [place] [address] GFR-NON AM. 13 mL/min/1.73m2 Abnormal >60 [facility] Comment on above: Performed By: #### C OAGS #### [facility] [address] [place] [address] Glucose [Mass/Vol] 134 mg/dL High 74 - 99 [facility] Comment on above: Performed By: #### C OAGS #### [facility] [address] [place] [address] HCO3 (Bld) [Moles/Vol] 23 mmol/L Normal 21 - 32 [facility] Comment on above: Performed By: #### C OAGS #### [facility] [address] [place] [address] Phosphate [Mass/Vol] 5.9 mg/dL High 2.5 - 4.9 [facility] Comment on above: Result Comment: The performance characteristics of phosphorus testing in heparinized plasma have been validated by the individual laboratory site where testing is performed. Testing on heparinized plasma is not approved by the FDA; however, such approval is not necessary. Performed By: #### C OAGS #### [facility] [address] [place] [address] Potassium [Moles/Vol] 5.0 mmol/L Normal 3.5 - 5.3 [facility] Comment on above: Performed By: #### C OAGS #### [facility] [address] [place] [address] Sodium [Moles/Vol] 133 mmol/L Low 136 - 145 [facility] Comment on above: Performed By: #### C OAGS #### [facility] [address] [place] [address] Urea nitrogen [Mass/Vol] 53 mg/dL High 6 - 23 [facility] Comment on above: Performed By: #### C OAGS #### [facility] [address] [place] [address] REQUEST-LEUKOREDUCED RED DANNY LSon 04-17-2018 REQUEST-LEUKOREDU MABEL RED CELLS ORDER RECD Normal [facility] Comment on above: Performed By: #### O B[facility] [employer] ####[id number] [place] [address] REQUEST-LEUKOREDU MABEL RED CELLS ORDER RECD Normal [facility] Comment on above: Performed By: #### O [facility] ####[id number] [place] [address] TH ABDOMEN AP VIEWon 019 TH ABDOMEN AP VIEW Patient Name: ADEN PATEL STUDY: ABDOMEN AP VIEW; 04/17/2018 1:30 am INDICATION: Signs/Symptoms: s/p NGT placement. COMPARISON: 04/17/2018 at 1:30 a.m. ACCESSION NUMBER(S): [id number] ORDERING CLINICIAN: AUGUSTO TRAYLOR FINDINGS: Limited single view of the [...] was performed , analyzed and interpreted at [facility], [place], [place]. Electronically signed by: DAYNE HUBBARD MD Normal [facility] TH CHEST 1 VIEWon 04-17-2018 TH CHEST 1 VIEW Patient Name: ADEN PATEL STUDY: CHEST 1 VIEW; 04/17/2018 11:18 am INDICATION: Signs/Symptoms: ETT placement. COMPARISON: 04/17/2018 ACCESSION NUMBER(S): [id number] ORDERING CLINICIAN: MELITA ALBARRAN FINDINGS: ET tube [...] Electronically signed by: DAYNE HUBBARD MD Normal [facility] TH CHEST 1 VIEW Patient Name: ADEN PATEL STUDY: CHEST 1 VIEW; 04/17/2018 6:51 am INDICATION: Signs/Symptoms: SICU AM rounds. COMPARISON: 04/16/2018 ACCESSION NUMBER(S): [id number] ORDERING CLINICIAN: AUGUSTO TRAYLOR FINDINGS: Left IJ [...] Electronically signed by: DAYNE HUBBARD MD Normal [facility] TYPE + SCREENon 04-17-2018 ABO TYPE A Normal [facility] Comment on above: Performed By: #### C OAGS #### [facility] [address] [place] [address] RH TYPE Positive Normal [facility] Comment on above: Performed By: #### C OAGS #### [facility] [address] [place] [address] UA MICROSCOPICon 04-17-2018 HYALINE CAST 2+ /LPF Abnormal [facility] Comment on above: Performed By: #### H EPFP #### [facility] [address] [place] [address] MUCUS 1+ /LPF Normal [facility] Comment on above: Performed By: #### H EPFP #### [facility] [address] [place] [address] RBC 6 /HPF Abnormal 0-5 [facility] Comment on above: Performed By: #### H EPFP #### [facility] [address] [place] [address] SQUAMOUS EPITH. CELLS 1 /HPF Normal [facility] Comment on above: Performed By: #### H EPFP #### [facility] [address] [place] [address] WBC 1 /HPF Normal 0-5 [facility] Comment on above: Performed By: #### H EPFP #### [facility] [address] [place] [address] URINALYSISon 04-17-2018 Appearance (U) HAZY Normal CLEAR [facility] Comment on above: Performed By: #### H EPFP #### [facility] [address] [place] [address] Bilirubin (U) [Mass/Vol] Negative Normal NEGATIVE [facility] Comment on above: Performed By: #### H EPFP #### [facility] [address] [place] [address] BLOOD LARGE (3+) Abnormal NEGATIVE [facility] Comment on above: Performed By: #### H EPFP #### [facility] [address] [place] [address] Color (U) YELLOW Normal STRAW,YELLOW [facility] Comment on above: Performed By: #### H EPFP #### [facility] [address] [place] [address] Glucose [Mass/Vol] Negative Normal NEGATIVE [facility] Comment on above: Performed By: #### H EPFP #### [facility] [address] [place] [address] Ketones Ql (U) Negative Normal NEGATIVE [facility] Comment on above: Performed By: #### H EPFP #### [facility] [address] [place] [address] Leukocyte esterase Test strip Ql (U) Negative Normal NEGATIVE [facility] Comment on above: Performed By: #### H EPFP #### [facility] [address] [place] [address] Nitrite Ql (U) Negative Normal NEGATIVE [facility] Comment on above: Performed By: #### H EPFP #### [facility] [address] [place] [address] pH (Bld) 5.0 Normal 5.0 - 8.0 [facility] Comment on above: Performed By: #### H EPFP #### [facility] [address] [place] [address] Protein (U) [Mass/Vol] 30 (1+) Abnormal NEGATIVE [facility] Comment on above: Performed By: #### H EPFP #### [facility] [address] [place] [address] Specific gravity (U) [Rel density] 1.016 Normal 1.005 - 1.035 [facility] Comment on above: Performed By: #### H EPFP #### [facility] [address] [place] [address] Urobilinogen Qn (U) <2.0 Normal 0.0 - 1.9 [facility] Comment on above: Performed By: #### H EPFP #### [facility] [address] [place] [address] AMYLASEon 04-16-2018 Amylase [Catalytic activity/Vol] U/L Low 29 - 103 [facility] Comment on above: Performed By: #### A MY ####[id number] [place] [address] ARTERIAL FULL PANELon 2018 Anion gap [Moles/Vol] 17 mmol/L Normal 10 - 25 [facility] Comment on above: Performed By: #### A FPA3 ####[id number] [place] [address] BASE EXCESS-BLOOD -0.1 mmol/L Normal -2.0 - 3.0 [facility] Comment on above: Performed By: #### A FPA3 ####[id number] [place] [address] CALCIUM,IONIZED 1.01 mmol/L Low 1.10 - 1.33 [facility] Comment on above: Performed By: #### A FPA3 ####[id number] [place] [address] Chloride [Moles/Vol] 94 mmol/L Low 98 - 107 [facility] Comment on above: Performed By: #### A FPA3 ####[id number] [place] [address] Glucose [Mass/Vol] 135 mg/dL High 74 - 99 [facility] Comment on above: Performed By: #### A FPA3 ####[id number] [place] [address] Hematocrit (Bld) [Volume fraction] 27.0 % Low 41.0 - 52.0 [facility] Comment on above: Performed By: #### A FPA3 ####[id number] [place] [address] HGB,CALCULATED 9.2 g/dL Low 13.5 - 17.5 [facility] Comment on above: Performed By: #### A FPA3 ####[id number] [place] [address] Lactate [Moles/Vol] 2.4 mmol/L High 0.4 - 2.0 [facility] Comment on above: Performed By: #### A FPA3 ####[id number] [place] [address] Oxygen (Bld) [Partial pressure] 51 mm[Hg] Low 85 - 95 [facility] Comment on above: Performed By: #### A FPA3 ####[id number] [place] [address] PCO2 35 mmHg Low 38 - 42 [facility] Comment on above: Performed By: #### A FPA3 ####[id number] [place] [address] pH (Bld) 7.44 [pH] High 7.38 - 7.42 [facility] Comment on above: Performed By: #### A FPA3 ####[id number] [place] [address] Potassium [Moles/Vol] 5.0 mmol/L Normal 3.5 - 5.3 [facility] Comment on above: Performed By: #### A FPA3 ####[id number] [place] [address] RBC (Bld) [#/Vol] 23.8 mmol/L Normal 22.0 - 26.0 [facility] Comment on above: Performed By: #### A FPA3 ####[id number] [place] [address] SO2 90 % Low 94 - 100 [facility] Comment on above: Performed By: #### A FPA3 ####[id number] [place] [address] Sodium [Moles/Vol] 130 mmol/L Low 136 - 145 [facility] Comment on above: Performed By: #### A FPA3 ####[id number] [place] [address] Anion gap [Moles/Vol] 14 mmol/L Normal 10 - 25 [facility] Comment on above: Performed By: #### A FPA3 ####[id number] [place] [address] BASE EXCESS-BLOOD -3.9 mmol/L Low -2.0 - 3.0 [facility] Comment on above: Performed By: #### A FPA3 ####[id number] [place] [address] CALCIUM,IONIZED 1.06 mmol/L Low 1.10 - 1.33 [facility] Comment on above: Performed By: #### A FPA3 ####[id number] [place] [address] Chloride [Moles/Vol] 97 mmol/L Low 98 - 107 [facility] Comment on above: Performed By: #### A FPA3 ####[id number] [place] [address] Glucose [Mass/Vol] 131 mg/dL High 74 - 99 [facility] Comment on above: Performed By: #### A FPA3 ####[id number] [place] [address] Hematocrit (Bld) [Volume fraction] 26.0 % Low 41.0 - 52.0 [facility] Comment on above: Performed By: #### A FPA3 ####[id number] [place] [address] HGB,CALCULATED 8.8 g/dL Low 13.5 - 17.5 [facility] Comment on above: Performed By: #### A FPA3 ####[id number] [place] [address] Lactate [Moles/Vol] 3.1 mmol/L High 0.4 - 2.0 [facility] Comment on above: Performed By: #### A FPA3 ####[id number] [place] [address] Oxygen (Bld) [Partial pressure] 55 mm[Hg] Low 85 - 95 [facility] Comment on above: Performed By: #### A FPA3 ####[id number] [place] [address] PCO2 40 mmHg Normal 38 - 42 [facility] Comment on above: Performed By: #### A FPA3 ####[id number] [place] [address] pH (Bld) 7.34 [pH] Low 7.38 - 7.42 [facility] Comment on above: Performed By: #### A FPA3 ####[id number] [place] [address] Potassium [Moles/Vol] 4.6 mmol/L Normal 3.5 - 5.3 [facility] Comment on above: Performed By: #### A FPA3 ####[id number] [place] [address] RBC (Bld) [#/Vol] 21.6 mmol/L Low 22.0 - 26.0 [facility] Comment on above: Performed By: #### A FPA3 ####[id number] [place] [address] SO2 92 % Low 94 - 100 [facility] Comment on above: Performed By: #### A FPA3 ####[id number] [place] [address] Sodium [Moles/Vol] 128 mmol/L Low 136 - 145 [facility] Comment on above: Performed By: #### A FPA3 ####[id number] [place] [address] Anion gap [Moles/Vol] 17 mmol/L Normal 10 - 25 [facility] Comment on above: Order Comment: CRIT LACTN [facility] CALLED RB [facility], 04/16/2018 12:12 Performed By: #### A FPA3 ####[id number] [place] [address] BASE EXCESS-BLOOD -7.5 mmol/L Low -2.0 - 3.0 [facility] Comment on above: Order Comment: CRIT LACTN [facility] CALLED RB [facility], 04/16/2018 12:12 Performed By: #### A FPA3 ####[id number] [place] [address] CALCIUM,IONIZED 1.06 mmol/L Low 1.10 - 1.33 [facility] Comment on above: Order Comment: CRIT LACTN [facility] CALLED RB TO [facility], 04/16/2018 12:12 Performed By: #### A FPA3 ####[id number] [place] [address] Chloride [Moles/Vol] 98 mmol/L Normal 98 - 107 [facility] Comment on above: Order Comment: CRIT LACTN [facility] CALLED RB TO [facility], 04/16/2018 12:12 Performed By: #### A FPA3 ####[id number] [place] [address] Glucose [Mass/Vol] 155 mg/dL High 74 - 99 [facility] Comment on above: Order Comment: CRIT LACTN [facility] CALLED RB TO [facility], 04/16/2018 12:12 Performed By: #### A FPA3 ####[id number] [place] [address] Hematocrit (Bld) [Volume fraction] 18.0 % Low 41.0 - 52.0 [facility] Comment on above: Order Comment: CRIT LACTN [facility] CALLED RB TO [facility], 04/16/2018 12:12 Performed By: #### A FPA3 ####[id number] [place] [address] HGB,CALCULATED 6.1 g/dL Critically low 13.5 - 17.5 [facility] Comment on above: Order Comment: CRIT LACTN [facility] CALLED RB TO [facility], 04/16/2018 12:12 Result Comment: CRIT LACTN [facility] CALLED RB TO [facility], 04/16/2018 12:12 Performed By: #### A FPA3 ####[id number] [place] [address] Lactate [Moles/Vol] 5.8 mmol/L Critically high 0.4 - 2.0 [facility] Comment on above: Order Comment: CRIT LACTN [facility] CALLED RB TO [facility], 04/16/2018 12:12 Result Comment: CRIT LACTN [facility] CALLED RB TO [facility], 04/16/2018 12:12 Performed By: #### A FPA3 ####[id number] [place] [address] Oxygen (Bld) [Partial pressure] 57 mm[Hg] Low 85 - 95 [facility] Comment on above: Order Comment: CRIT LACTN [facility] CALLED RB TO [facility], 04/16/2018 12:12 Performed By: #### A FPA3 ####[id number] [place] [address] PCO2 36 mmHg Low 38 - 42 [facility] Comment on above: Order Comment: CRIT LACTN [facility] CALLED RB TO [facility], 04/16/2018 12:12 Performed By: #### A FPA3 ####[id number] [place] [address] pH (Bld) 7.31 [pH] Low 7.38 - 7.42 [facility] Comment on above: Order Comment: CRIT LACTN [facility] CALLED RB TO [facility], 04/16/2018 12:12 Performed By: #### A FPA3 ####[id number] [place] [address] Potassium [Moles/Vol] 4.5 mmol/L Normal 3.5 - 5.3 [facility] Comment on above: Order Comment: CRIT LACTN [facility] CALLED RB TO [facility], 04/16/2018 12:12 Performed By: #### A FPA3 ####[id number] [place] [address] RBC (Bld) [#/Vol] 18.1 mmol/L Low 22.0 - 26.0 [facility] Comment on above: Order Comment: CRIT LACTN [facility] CALLED RB TO GM [facility], 04/16/2018 12:12 Performed By: #### A FPA3 ####[id number] [place] [address] SO2 93 % Low 94 - 100 [facility] Comment on above: Order Comment: CRIT LACTN [facility] CALLED RB TO GM [facility], 04/16/2018 12:12 Performed By: #### A FPA3 ####[id number] [place] [address] Sodium [Moles/Vol] 129 mmol/L Low 136 - 145 [facility] Comment on above: Order Comment: CHUYITA TREJO [facility] CALLED RB TO GM [facility]AC[facility]TO, 04/16/2018 12:12 Performed By: #### A FPA3 ####[id number] [place] [address] BASIC METABOLIC PANELon 03-29 Anion gap [Moles/Vol] Canceled Normal [facility] Comment on above: Order Comment: TEST BASIC METABOLIC PANEL WAS CANCELLED, 04/15/2018 04:45 ?Cancel Reason:Cancelled. Performed By: #### B MP ####[id number] [place] [address] Order Comment: TEST BASIC METABOLIC PANEL WAS CANCELLED, 04/16/2018 10:43 ?Cancel Reason:Discontinued. Calcium [Mass/Vol] Canceled Normal [facility] Comment on above: Order Comment: TEST BASIC METABOLIC PANEL WAS CANCELLED, 04/16/2018 10:43 ?Cancel Reason:Discontinued. Performed By: #### B MP ####[id number] [place] [address] Order Comment: TEST BASIC METABOLIC PANEL WAS CANCELLED, 04/15/2018 04:45 ?Cancel Reason:Cancelled. Chloride [Moles/Vol] Canceled Normal [facility] Comment on above: Order Comment: TEST BASIC METABOLIC PANEL WAS CANCELLED, 04/16/2018 10:43 ?Cancel Reason:Discontinued. Performed By: #### B MP ####[id number] [place] [address] Order Comment: TEST BASIC METABOLIC PANEL WAS CANCELLED, 04/15/2018 04:45 ?Cancel Reason:Cancelled. Creatinine [Mass/Vol] Canceled Normal [facility] Comment on above: Order Comment: TEST BASIC METABOLIC PANEL WAS CANCELLED, 04/16/2018 10:43 ?Cancel Reason:Discontinued. Performed By: #### B MP ####[id number] [place] [address] Order Comment: TEST BASIC METABOLIC PANEL WAS CANCELLED, 04/15/2018 04:45 ?Cancel Reason:Cancelled. GFR- AM. Canceled Normal [facility] Comment on above: Order Comment: TEST BASIC METABOLIC PANEL WAS CANCELLED, 04/15/2018 04:45 ?Cancel Reason:Cancelled. Result Comment: CALC ULATIONS OF ESTIMATED GFR ARE PERFORMED USING THE MDRD STUDY EQUATION FOR THE IDMS-TRACEABLE CREATININE METHODS. CLIN CHEM 2007;53:766-72 Performed By: #### B MP ####[id number] [place] [address] Order Comment: TEST BASIC METABOLIC PANEL WAS CANCELLED, 04/16/2018 10:43 ?Cancel Reason:Discontinued. GFR-NON AM. Canceled Normal [facility] Comment on above: Order Comment: TEST BASIC METABOLIC PANEL WAS CANCELLED, 04/16/2018 10:43 ?Cancel Reason:Discontinued. Performed By: #### B MP ####[id number] [place] [address] Order Comment: TEST BASIC METABOLIC PANEL WAS CANCELLED, 04/15/2018 04:45 ?Cancel Reason:Cancelled. Glucose [Mass/Vol] Canceled Normal [facility] Comment on above: Order Comment: TEST BASIC METABOLIC PANEL WAS CANCELLED, 04/15/2018 04:45 ?Cancel Reason:Cancelled. Performed By: #### B MP ####[id number] [place] [address] Order Comment: TEST BASIC METABOLIC PANEL WAS CANCELLED, 04/16/2018 10:43 ?Cancel Reason:Discontinued. HCO3 (Bld) [Moles/Vol] Canceled Normal [facility] Comment on above: Order Comment: TEST BASIC METABOLIC PANEL WAS CANCELLED, 04/15/2018 04:45 ?Cancel Reason:Cancelled. Performed By: #### B MP ####[id number] [place] [address] Order Comment: TEST BASIC METABOLIC PANEL WAS CANCELLED, 04/16/2018 10:43 ?Cancel Reason:Discontinued. Potassium [Moles/Vol] Canceled Normal [facility] Comment on above: Order Comment: TEST BASIC METABOLIC PANEL WAS CANCELLED, 04/15/2018 04:45 ?Cancel Reason:Cancelled. Performed By: #### B MP ####[id number] [place] [address] Order Comment: TEST BASIC METABOLIC PANEL WAS CANCELLED, 04/16/2018 10:43 ?Cancel Reason:Discontinued. Sodium [Moles/Vol] Canceled Normal [facility] Comment on above: Order Comment: TEST BASIC METABOLIC PANEL WAS CANCELLED, 04/16/2018 10:43 ?Cancel Reason:Discontinued. Performed By: #### B MP ####[id number] [place] [address] Order Comment: TEST BASIC METABOLIC PANEL WAS CANCELLED, 04/15/2018 04:45 ?Cancel Reason:Cancelled. Urea nitrogen [Mass/Vol] Canceled Normal [facility] Comment on above: Order Comment: TEST BASIC METABOLIC PANEL WAS CANCELLED, 04/15/2018 04:45 ?Cancel Reason:Cancelled. Performed By: #### B MP ####[id number] [place] [address] Order Comment: TEST BASIC METABOLIC PANEL WAS CANCELLED, 04/16/2018 10:43 ?Cancel Reason:Discontinued. CALCIUM, IONIZEDon 9 CALCIUM,IONIZED 1.03 mmol/L Low 1.10 - 1.33 [facility] Comment on above: Result Comment: The performance characteristics of ionized calcium tested in heparinized plasma or serum have been validated by the individual laboratory site where testing is performed. Testing on heparinized plasma or serum is not approved by the FDA; however, such approval is not necessary. Performed By: #### C OAGS #### [facility] [id number] [place] [address] CALCIUM,IONIZED 1.13 mmol/L Normal 1.10 - 1.33 [facility] Comment on above: Result Comment: The performance characteristics of ionized calcium tested in heparinized plasma or serum have been validated by the individual laboratory site where testing is performed. Testing on heparinized plasma or serum is not approved by the FDA; however, such approval is not necessary. Performed By: #### I ONC1 ####[id number] [place] [address] CBCon 04-16-2018 Erythrocyte distribution width (RBC) [Ratio] 14.6 % High 11.5 - 14.5 [facility] Comment on above: Performed By: #### C OAGS #### [facility] [address] [place] [address] Hematocrit (Bld) [Volume fraction] 26.0 % Low 41.0 - 52.0 [facility] Comment on above: Performed By: #### C OAGS #### [facility] [address] [place] [address] Hemoglobin (Bld) [Mass/Vol] 9.6 g/dL Low 13.5 - 17.5 [facility] Comment on above: Performed By: #### C OAGS #### [facility] [id number] [place] [address] MCHC (RBC) [Mass/Vol] 36.9 g/dL High 32.0 - 36.0 [facility] Comment on above: Performed By: #### C OAGS #### [facility] [address] [place] [address] MCV (RBC) [Entitic vol] 87 fL Normal 80 - 100 [facility] Comment on above: Performed By: #### C OAGS #### [facility] [address] [place] [address] Nucleated RBC/100 WBC (Bld) [Ratio] 0.2 /100 WBC Normal 0.0-0.0 [facility] Comment on above: Performed By: #### C OAGS #### [facility] [address] [place] [address] Platelets (Bld) [#/Vol] 221 10*3/uL Normal 150 - 450 [facility] Comment on above: Performed By: #### C OAGS #### [facility] [address] [place] [address] RBC (Bld) [#/Vol] 2.98 x10E12/L Low 4.50 - 5.90 [facility] Comment on above: Performed By: #### C OAGS #### [facility] [address] [place] [address] WBC (Bld) [#/Vol] 6.5 10*3/uL Normal 4.4 - 11.3 [facility] Comment on above: Performed By: #### C OAGS #### [facility] [address] [place] [address] Erythrocyte distribution width (RBC) [Ratio] 14.2 % Normal 11.5 - 14.5 [facility] Comment on above: Performed By: #### C BC ####[id number] [place] [address] Hematocrit (Bld) [Volume fraction] 30.0 % Low 41.0 - 52.0 [facility] Comment on above: Performed By: #### C BC ####[id number] [place] [address] Hemoglobin (Bld) [Mass/Vol] 10.0 g/dL Low 13.5 - 17.5 [facility] Comment on above: Performed By: #### C BC ####[id number] [place] [address] MCHC (RBC) [Mass/Vol] 33.3 g/dL Normal 32.0 - 36.0 [facility] Comment on above: Performed By: #### C BC ####[id number] [place] [address] MCV (RBC) [Entitic vol] 94 fL Normal 80 - 100 [facility] Comment on above: Performed By: #### C BC ####[id number] [place] [address] Nucleated RBC/100 WBC (Bld) [Ratio] 0.0 /100 WBC Normal 0.0-0.0 [facility] Comment on above: Performed By: #### C BC ####[id number] [place] [address] Platelets (Bld) [#/Vol] 190 10*3/uL Normal 150 - 450 [facility] Comment on above: Performed By: #### C BC ####[id number] [place] [address] RBC (Bld) [#/Vol] 3.20 x10E12/L Low 4.50 - 5.90 [facility] Comment on above: Performed By: #### C BC ####[id number] [place] [address] WBC (Bld) [#/Vol] 6.5 10*3/uL Normal 4.4 - 11.3 [facility] Comment on above: Performed By: #### C BC ####[id number] [place] [address] Erythrocyte distribution width (RBC) [Ratio] 14.6 % High 11.5 - 14.5 [facility] Comment on above: Performed By: #### C BC ####[id number] [place] [address] Hematocrit (Bld) [Volume fraction] 22.9 % Low 41.0 - 52.0 [facility] Comment on above: Performed By: #### C BC ####[id number] [place] [address] Hemoglobin (Bld) [Mass/Vol] 7.0 g/dL Low 13.5 - 17.5 [facility] Comment on above: Performed By: #### C BC ####[id number] [place] [address] MCHC (RBC) [Mass/Vol] 30.6 g/dL Low 32.0 - 36.0 [facility] Comment on above: Performed By: #### C BC ####[id number] [place] [address] MCV (RBC) [Entitic vol] 103 fL High 80 - 100 [facility] Comment on above: Performed By: #### C BC ####[id number] [place] [address] Nucleated RBC/100 WBC (Bld) [Ratio] 0.0 /100 WBC Normal 0.0-0.0 [facility] Comment on above: Performed By: #### C BC ####[id number] [place] [address] Platelets (Bld) [#/Vol] 195 10*3/uL Normal 150 - 450 [facility] Comment on above: Performed By: #### C BC ####[id number] [place] [address] RBC (Bld) [#/Vol] 2.23 x10E12/L Low 4.50 - 5.90 [facility] Comment on above: Performed By: #### C BC ####[id number] [place] [address] WBC (Bld) [#/Vol] 5.7 10*3/uL Normal 4.4 - 11.3 [facility] Comment on above: Performed By: #### C BC ####[id number] [place] [address] Erythrocyte distribution width (RBC) [Ratio] Canceled Normal [facility] Comment on above: Order Comment: TEST CBC WAS CANCELLED, 04/15/2018 04:45 ?Cancel Reason: Cancelled. Performed By: #### C BC ####[id number] [id number] Order Comment: TEST CBC WAS CANCELLED, 04/16/2018 10:43 ?Cancel Reason: Discontinued. Hematocrit (Bld) [Volume fraction] Canceled Normal [facility] Comment on above: Order Comment: TEST CBC WAS CANCELLED, 04/16/2018 10:43 ?Cancel Reason: Discontinued. Performed By: #### C BC ####[id number] [place] [address] Order Comment: TEST CBC WAS CANCELLED, 04/15/2018 04:45 ?Cancel Reason: Cancelled. Hemoglobin (Bld) [Mass/Vol] Canceled Normal [facility] Comment on above: Order Comment: TEST CBC WAS CANCELLED, 04/16/2018 10:43 ?Cancel Reason: Discontinued. Performed By: #### C BC ####[id number] [place] [address] Order Comment: TEST CBC WAS CANCELLED, 04/15/2018 04:45 ?Cancel Reason: Cancelled. MCHC (RBC) [Mass/Vol] Canceled Normal [facility] Comment on above: Order Comment: TEST CBC WAS CANCELLED, 04/16/2018 10:43 ?Cancel Reason: Discontinued. Performed By: #### C BC ####[id number] [place] [address] Order Comment: TEST CBC WAS CANCELLED, 04/15/2018 04:45 ?Cancel Reason: Cancelled. MCV (RBC) [Entitic vol] Canceled Normal [facility] Comment on above: Order Comment: TEST CBC WAS CANCELLED, 04/16/2018 10:43 ?Cancel Reason: Discontinued. Performed By: #### C BC ####[id number] [place] [address] Order Comment: TEST CBC WAS CANCELLED, 04/15/2018 04:45 ?Cancel Reason: Cancelled. Nucleated RBC/100 WBC (Bld) [Ratio] Canceled Normal [facility] Comment on above: Order Comment: TEST CBC WAS CANCELLED, 04/15/2018 04:45 ?Cancel Reason: Cancelled. Performed By: #### C BC ####[id number] [place] [address] Order Comment: TEST CBC WAS CANCELLED, 04/16/2018 10:43 ?Cancel Reason: Discontinued. Platelets (Bld) [#/Vol] Canceled Normal [facility] Comment on above: Order Comment: TEST CBC WAS CANCELLED, 04/15/2018 04:45 ?Cancel Reason: Cancelled. Performed By: #### C BC ####[id number] [place] [address] Order Comment: TEST CBC WAS CANCELLED, 04/16/2018 10:43 ?Cancel Reason: Discontinued. RBC (Bld) [#/Vol] Canceled Normal [facility] Center Comment on above: Order Comment: TEST CBC WAS CANCELLED, 04/15/2018 04:45 ?Cancel Reason: Cancelled. Performed By: #### C BC ####[id number] [place] [address] Order Comment: TEST CBC WAS CANCELLED, 04/16/2018 10:43 ?Cancel Reason: Discontinued. WBC (Bld) [#/Vol] Canceled Normal [facility] Comment on above: Order Comment: TEST CBC WAS CANCELLED, 04/15/2018 04:45 ?Cancel Reason: Cancelled. Performed By: #### C BC ####[id number] [place] [address] Order Comment: TEST CBC WAS CANCELLED, 04/16/2018 10:43 ?Cancel Reason: Discontinued. COAGULATION SCREENon 019 aPTT Coag (Bld) [Time] 32 s Normal 28 - 38 [facility] Comment on above: Result Comment: Note new reference range as of 01/17/2018. THE APTT IS NO LONGER USED FOR MONITORING UNFRACTIONATED HEPARIN THERAPY. FOR MONITORING HEPARIN THERAPY, USE THE HEPARIN ASSAY. Performed By: #### C OAGS ####[id number] [place] [address] INR Coag (PPP) [Relative time] 1.1 {INR} Normal 0.9 - 1.1 [facility] Comment on above: Performed By: #### C OAGS ####[id number] [place] [address] PT Coag (PPP) [Time] 12.2 s Normal 9.7 - 12.7 [facility] Comment on above: Result Comment: Note new reference range as of 01/17/2018. Performed By: #### C OAGS ####[id number] [place] [address] aPTT Coag (Bld) [Time] Canceled Normal [facility] Comment on above: Order Comment: TEST COAGULATION SCREEN WAS CANCELLED, 04/16/2018 10:43 ?Cancel Reason:Discontinued. Result Comment: Note new reference range as of 01/17/2018. THE APTT IS NO LONGER USED FOR MONITORING UNFRACTIONATED HEPARIN THERAPY. FOR MONITORING HEPARIN THERAPY, USE THE HEPARIN ASSAY. Performed By: #### C OAGS ####[id number] [place] [address] INR Coag (PPP) [Relative time] Canceled Normal [facility] Comment on above: Order Comment: TEST COAGULATION SCREEN WAS CANCELLED, 04/16/2018 10:43 ?Cancel Reason:Discontinued. Performed By: #### C OAGS ####[id number] [place] [address] PT Coag (PPP) [Time] Canceled Normal [facility] Comment on above: Order Comment: TEST COAGULATION SCREEN WAS CANCELLED, 04/16/2018 10:43 ?Cancel Reason:Discontinued. Result Comment: Note new reference range as of 01/17/2018. Performed By: #### C OAGS ####[id number] [place] [address] Clinical Event Noteon 2018 Clinical Event Note Event: Details: 04/16/2018 4024 Aden Patel code blue called. Patient was on the commode and [...] 16-Apr-2018 13:37 by Carolina Poon (STACI) Normal [facility] Consult-Renalon 04-16-2018 Consult-Renal Service: Service: Renal Consult: [...] transferred to the TSICU after a Code white called. The patient became unresponsive and hypotensive [...] Known Allergies: Objective: Objective Information: T PRBPSpO2 Value37.87671264/42079% Date/Time04/16 16: 18: 18: 14: 18:00 Range(35.9C [...] WEIGHT (kg)) 96.6 Direct Arterial Blood Pressure Xiftzqmv534(87 - 193)04/16 18:30 Diastolic (mm Hg)57(48 - 86)04/16 18:30 Mean (mm Hg)70(61 - 110)04/16 18:30 Pulse Pressure (mm Hg)52(35 - 107)04/16 18:30 ---- Intake and Output ----- [facility]Dy/[facility]Out[facility] Apr 16, 2018 2:00 [id number] Apr 15, 2018 10:00 [id number] The Intake and Output Totals for the last 24 hours are: IntakeOutputNet [id number] Physical Exam: Constitutional: NAD, Cooperative Eyes: Clear [...] laboratory results: Complete Blood Count Trending View Cdwmgq00-Tnb-6285 14:24:00 16-Apr-2018 11:17:00 White Blood Cell Count6.5 5.7 Nucleated Erythrocyte Count0.0 0.0 Red Blood Cell Count3.20 L 2.23 L HGB10.0 L 7.0 L HCT30.0 L 22.9 L MCV94 103 H MCHC33.3 30.6 L MMJ891 195 RDW-CV14.2 14.6 H Arterial Full Panel Trending View Prkvew56-Xlm-3838 14:23:00 16-Apr-2018 11:43:00 pH, Arterial7.34 L 7.31 L pCO2, Xbljemwq96 36 L pO2, Defwucrs38 L 57 L Patient-Yuxgosnowon67.0 37.0 SO2, Jaqksorl47 L 93 L HCT26.0 L 18.0 L Sodium-Gsbgc908 L 129 L Potassium-Level4.6 4.5 Chloride-Level97 L 98 Calcium, Ionized-Level1.06 L 1.06 L Glucose-Xdogn399 H 155 H Lactate-Level3.1 H 5.8 HH Base Xgxyul-Esjib-8.9 L -7.5 L Bicarbonate, Calculated, Czpryvgt21.6 L 18.1 L HGB, Calculated8.8 L 6.1 LL Anion Gap-Level14 17 Lab Comment: [facility]UYITA TREJO [facility] CALLED RB TO GM JACINTO, 04/16/2018 12:12 [...] <10 L Sodium, Urine Spot Trending View Kjksmk17-Mms-7723 19:18:00 15-Apr-2018 14:48:00 Sodium Urine Spot14 12 Sodium/Creat Ojxou372 462 Creatinine, Urine Spot11.9 L 2.6 L [...] No hydronephrosis. Plan: -No acute indication for DIMENSION SPECIFICATION INSPECTOR. -Agree with fluid resuscitation and vasopressors. Target MAPs >70 for optimum renal perfusion. -Check a intra-bladder pressure. -Order UA, FeNa, and FeUrea when possible. -Strict I&O's, Daily weights -Avoid nephrotoxic agents, hypotension, IV contrast, and NSAIDs when possible. -Renally dose medications. Discussed with attending. Audrey Zuniga Renal Fellow #[id number] Signature/Cosignature/Attesta tion: Attending AttestationI saw and evaluated [...] Updated: 16-Apr-2018 21:54 by Yary Persaud) Normal [facility] Daily Progress Note-Colorect al Surgeryon 04-16-2018 Daily [...] Tolerating PO intake. At around ~11 am, code elle was called as the patient lost consciousness [...] Information: ---- Intake and Output ----- Mn/Dy/[facility]Output[facility] Apr 15, 2018 10:00 [id number] Apr 15, 2018 2:00 [id number] The Intake and Output Totals for the last 24 hours are: IntakeOutputNet [id number] T PRBPSpO2 Value35.0286415/5597% Date/Time04/16 8:5204/16 11: 11: 11: 8:52 Range(35.9C - 36.5C ) (73 - 84 ) (16 - 24 ) (79 - 133 )/ (53 - 87 ) (91% - 98% ) ---- Intake and Output ----- Mn/Dy/Year TimeInt[facility]OutD[facility] Apr 15, 2018 10:00 [id number] Apr 15, 2018 2:00 [id number] The Intake and Output Totals for the last 24 hours are: IntakeOutputNet [id number] Intake Output Enteral - Oral 840 mL [...] Dr. Quigley. Marquez Bronson General Surgery, PGY-2 [place] [address] Signature/Cosignature/Attesta tion: Attending AttestationI reviewed the resident/fellows [...] Updated: 21-Apr-2018 12:10 by Ever Quigley) Normal [facility] EMR ADDONon 04-16-2018 ADDON CONFIRMATION REQUEST REC'D Normal [facility] Comment on above: Performed By: #### E MRAD ####NO LOCATION NEEDED ADDON CONFIRMATION REQUEST REC'D Normal [facility] Comment on above: Performed By: #### E MRAD ####NO LOCATION NEEDED FIBRINOGENon 04-16-2018 FIBRINOGEN 503 mg/dL High 200 - 400 [facility] Comment on above: Performed By: #### F IB ####[id number] [place] [address] GLUCOSE-POCTon 04-16-2018 Glucose [Mass/Vol] 136 mg/dL High 74 - 99 [facility] Comment on above: Performed By: #### G VAISHALI ####[id number] [place] [address] Glucose [Mass/Vol] 127 mg/dL High 74 - 99 [facility] Comment on above: Performed By: #### G VAISHALI ####[id number] [place] [address] HEPATIC FUNCTION PANELon ALP [Catalytic activity/Vol] 54 U/L Normal 33 - 136 [facility] Comment on above: Performed By: #### H EPFP ####[id number] [place] [address] ALT [Catalytic activity/Vol] 25 U/L Normal 10 - 52 [facility] Comment on above: Result Comment: Darlene ents treated with Sulfasalazine may generate falsely decreased results for ALT. Performed By: #### H EPFP ####[id number] [place] [address] AST [Catalytic activity/Vol] 42 U/L High 9 - 39 [facility] Comment on above: Performed By: #### H EPFP ####[id number] [place] [address] Bilirubin [Mass/Vol] 0.4 mg/dL Normal 0.0 - 1.2 [facility] Comment on above: Performed By: #### H EPFP ####[id number] [place] [address] Bilirubin.direct [Mass/Vol] 0.1 mg/dL Normal 0.0 - 0.3 [facility] Comment on above: Performed By: #### H EPFP ####[id number] [place] [address] Protein [Mass/Vol] 4.6 g/dL Low 6.4 - 8.2 [facility] Comment on above: Performed By: #### H EPFP ####[id number] [place] [address] Albumin [Mass/Vol] 2.8 g/dL Low 3.4 - 5.0 [facility] Comment on above: Performed By: #### H EPFP ####[id number] [place] [address] Performed By: #### R ENAL ####[id number] [place] [address] LIPASEon 04-16-2018 Lipase [Catalytic activity/Vol] U/L Abnormal 9 - 82 [facility] Comment on above: Result Comment: Astrid puncture immediately after or during the administration of Metamizole may lead to falsely low results. Testing should be performed immediately prior to Metamizole dosing. Performed By: #### L IPAS ####[id number] [place] [address] MAGNESIUMon 04-16-2018 Magnesium [Mass/Vol] 1.95 mg/dL Normal 1.60 - 2.40 [facility] Comment on above: Performed By: #### M G ####[id number] [place] [address] Magnesium [Mass/Vol] Canceled Normal [facility] Comment on above: Order Comment: TEST MAGNESIUM WAS CANCELLED, 04/16/2018 10:43 ?Cancel Reason: Discontinued. Performed By: #### M G ####[id number] [place] [address] Magnesium [Mass/Vol] 1.63 mg/dL Normal 1.60 - 2.40 [facility] Comment on above: Performed By: #### M G ####[id number] [place] [address] RENAL FUNCTION PANELon 04-16 Anion gap [Moles/Vol] 23 mmol/L High 10 - 20 [facility] Comment on above: Performed By: #### R ENAL ####[id number] [place] [address] Calcium [Mass/Vol] 7.9 mg/dL Low 8.6 - 10.6 [facility] Comment on above: Performed By: #### R ENAL ####[id number] [place] [address] Chloride [Moles/Vol] 98 mmol/L Normal 98 - 107 [facility] Comment on above: Performed By: #### R ENAL ####[id number] [place] [address] Creatinine [Mass/Vol] 4.29 mg/dL High 0.50 - 1.30 [facility] Comment on above: Performed By: #### R ENAL ####[id number] [place] [address] GFR- AM. 17 mL/min/1.73m2 Abnormal >60 [facility] Comment on above: Result Comment: CALC ULATIONS OF ESTIMATED GFR ARE PERFORMED USING THE MDRD STUDY EQUATION FOR THE IDMS-TRACEABLE CREATININE METHODS. CLIN CHEM 2007;53:766-72 Performed By: #### R ENAL ####[id number] [place] [address] GFR-NON AM. 14 mL/min/1.73m2 Abnormal >60 [facility] Comment on above: Performed By: #### R ENAL ####[id number] [place] [address] Glucose [Mass/Vol] 161 mg/dL High 74 - 99 [facility] Comment on above: Performed By: #### R ENAL ####[id number] [place] [address] HCO3 (Bld) [Moles/Vol] 17 mmol/L Low 21 - 32 [facility] Comment on above: Performed By: #### R ENAL ####[id number] [place] [address] Phosphate [Mass/Vol] 7.4 mg/dL High 2.5 - 4.9 [facility] Comment on above: Result Comment: The performance characteristics of phosphorus testing in heparinized plasma have been validated by the individual laboratory site where testing is performed. Testing on heparinized plasma is not approved by the FDA; however, such approval is not necessary. Performed By: #### R ENAL ####[id number] [place] [address] Potassium [Moles/Vol] 4.8 mmol/L Normal 3.5 - 5.3 [facility] Comment on above: Performed By: #### R ENAL ####[id number] [place] [address] Sodium [Moles/Vol] 133 mmol/L Low 136 - 145 [facility] Comment on above: Performed By: #### R ENAL ####[id number] [place] [address] Urea nitrogen [Mass/Vol] 46 mg/dL High 6 - 23 [facility] Comment on above: Performed By: #### R ENAL ####[id number] [place] [address] REQUEST-LEUKOREDUCED RED DANNY LSon 04-16-2018 REQUEST-LEUKOREDU MABEL RED CELLS ORDER RECD Normal [facility] Comment on above: Performed By: #### O BLEACHER [place] PULP ####[id number] [place] [address] SODIUM, URINE SPOTon 019 CREATININE,URINE 11.9 mg/dL Low 20.0 - 370.0 [facility] Comment on above: Performed By: #### S ODS2 ####[id number] [place] [address] Sodium (U) [Moles/Vol] 14 mmol/L Normal Not Established [facility] Comment on above: Performed By: #### S ODS2 ####[id number] [place] [address] SODIUM/CREAT RATIO 118 mmol/g Creat Normal Not Established [facility] Comment on above: Performed By: #### S ODS2 ####[id number] [place] [address] TH CHEST 1 VIEWon 04-16-2018 TH CHEST 1 VIEW Patient Name: ADEN PATEL STUDY: TH CHEST 1 VIEW; 04/16/2018 1:14 pm INDICATION: Signs/Symptoms: stat. COMPARISON: None. ACCESSION NUMBER(S): [id number] ORDERING CLINICIAN: STANFORD SANCHEZ FINDINGS: Left IJ [...] as stated. This study was interpreted at [facility], [place], [place]. Electronically signed by: DAYNE HUBBARD MD Normal [facility] BASIC METABOLIC PANELon 03-28 Anion gap [Moles/Vol] 18 mmol/L Normal 10 - 20 [facility] Comment on above: Performed By: #### B MP ####[id number] [place] [address] Performed By: #### C MP ####[id number] [place] [address] Calcium [Mass/Vol] 8.5 mg/dL Low 8.6 - 10.6 [facility] Comment on above: Performed By: #### B MP ####[id number] [place] [address] Chloride [Moles/Vol] 99 mmol/L Normal 98 - 107 [facility] Comment on above: Performed By: #### B MP ####[id number] [place] [address] Performed By: #### C MP ####[id number] [place] [address] Creatinine [Mass/Vol] 2.27 mg/dL High 0.50 - 1.30 [facility] Comment on above: Performed By: #### B MP ####[id number] [place] [address] GFR- AM. 35 mL/min/1.73m2 Abnormal >60 [facility] Comment on above: Result Comment: CALC ULATIONS OF ESTIMATED GFR ARE PERFORMED USING THE MDRD STUDY EQUATION FOR THE IDMS-TRACEABLE CREATININE METHODS. CLIN CHEM 2007;53:766-72 Performed By: #### B MP ####[id number] [place] [address] GFR-NON AM. 29 mL/min/1.73m2 Abnormal >60 [facility] Comment on above: Performed By: #### B MP ####[id number] [place] [address] Glucose [Mass/Vol] 167 mg/dL High 74 - 99 [facility] Comment on above: Performed By: #### B MP ####[id number] [place] [address] HCO3 (Bld) [Moles/Vol] 20 mmol/L Low 21 - 32 [facility] Comment on above: Performed By: #### B MP ####[id number] [place] [address] Potassium [Moles/Vol] 4.7 mmol/L Normal 3.5 - 5.3 [facility] Comment on above: Performed By: #### B MP ####[id number] [place] [address] Sodium [Moles/Vol] 132 mmol/L Low 136 - 145 [facility] Comment on above: Performed By: #### B MP ####[id number] [place] [address] Performed By: #### C MP ####[id number] [place] [address] Urea nitrogen [Mass/Vol] 26 mg/dL High 6 - 23 [facility] Comment on above: Performed By: #### B MP ####[id number] [place] [address] CALCIUM, IONIZEDon 9 CALCIUM,IONIZED 1.15 mmol/L Normal 1.10 - 1.33 [facility] Comment on above: Result Comment: The performance characteristics of ionized calcium tested in heparinized plasma or serum have been validated by the individual laboratory site where testing is performed. Testing on heparinized plasma or serum is not approved by the FDA; however, such approval is not necessary. Performed By: #### I ONC1 ####[id number] [place] [address] CBCon 04-15-2018 Erythrocyte distribution width (RBC) [Ratio] 14.4 % Normal 11.5 - 14.5 [facility] Comment on above: Performed By: #### C BC ####[id number] [place] [address] Hematocrit (Bld) [Volume fraction] 29.1 % Low 41.0 - 52.0 [facility] Comment on above: Performed By: #### C BC ####[id number] [place] [address] Hemoglobin (Bld) [Mass/Vol] 9.5 g/dL Low 13.5 - 17.5 [facility] Comment on above: Performed By: #### C BC ####[id number] [place] [address] MCHC (RBC) [Mass/Vol] 32.6 g/dL Normal 32.0 - 36.0 [facility] Comment on above: Performed By: #### C BC ####[id number] [place] [address] MCV (RBC) [Entitic vol] 98 fL Normal 80 - 100 [facility] Comment on above: Performed By: #### C BC ####[id number] [place] [address] Nucleated RBC/100 WBC (Bld) [Ratio] 0.0 /100 WBC Normal 0.0-0.0 [facility] Comment on above: Performed By: #### C BC ####[id number] [place] [address] Platelets (Bld) [#/Vol] 222 10*3/uL Normal 150 - 450 [facility] Comment on above: Performed By: #### C BC ####[id number] [place] [address] RBC (Bld) [#/Vol] 2.96 x10E12/L Low 4.50 - 5.90 [facility] Comment on above: Performed By: #### C BC ####[id number] [place] [address] WBC (Bld) [#/Vol] 13.3 10*3/uL High 4.4 - 11.3 [facility] Comment on above: Performed By: #### C BC ####[id number] [place] [address] Erythrocyte distribution width (RBC) [Ratio] 14.3 % Normal 11.5 - 14.5 [facility] Comment on above: Performed By: #### C BC ####[id number] [place] [address] Hematocrit (Bld) [Volume fraction] 32.9 % Low 41.0 - 52.0 [facility] Comment on above: Performed By: #### C BC ####[id number] [place] [address] Hemoglobin (Bld) [Mass/Vol] 10.5 g/dL Low 13.5 - 17.5 [facility] Comment on above: Performed By: #### C BC ####[id number] [place] [address] MCHC (RBC) [Mass/Vol] 31.9 g/dL Low 32.0 - 36.0 [facility] Comment on above: Performed By: #### C BC ####[id number] [place] [address] MCV (RBC) [Entitic vol] 99 fL Normal 80 - 100 [facility] Comment on above: Performed By: #### C BC ####[id number] [place] [address] Nucleated RBC/100 WBC (Bld) [Ratio] 0.0 /100 WBC Normal 0.0-0.0 [facility] Comment on above: Performed By: #### C BC ####[id number] [place] [address] Platelets (Bld) [#/Vol] 232 10*3/uL Normal 150 - 450 [facility] Comment on above: Performed By: #### C BC ####[id number] [place] [address] RBC (Bld) [#/Vol] 3.31 x10E12/L Low 4.50 - 5.90 [facility] Comment on above: Performed By: #### C BC ####[id number] [place] [address] WBC (Bld) [#/Vol] 12.8 10*3/uL High 4.4 - 11.3 [facility] Comment on above: Performed By: #### C BC ####[id number] [place] [address] COAGULATION SCREENon 019 aPTT Coag (Bld) [Time] 33 s Normal 28 - 38 [facility] Comment on above: Result Comment: Note new reference range as of 01/17/2018. THE APTT IS NO LONGER USED FOR MONITORING UNFRACTIONATED HEPARIN THERAPY. FOR MONITORING HEPARIN THERAPY, USE THE HEPARIN ASSAY. Performed By: #### C OAGS ####[id number] [place] [address] INR Coag (PPP) [Relative time] 1.1 {INR} Normal 0.9 - 1.1 [facility] Comment on above: Performed By: #### C OAGS ####[id number] [place] [address] PT Coag (PPP) [Time] 12.0 s Normal 9.7 - 12.7 [facility] Comment on above: Result Comment: Note new reference range as of 01/17/2018. Performed By: #### C OAGS ####[id number] [place] [address] COMPREHENSIVE PANELon 2018 Albumin [Mass/Vol] 3.2 g/dL Low 3.4 - 5.0 [facility] Comment on above: Performed By: #### C MP ####[id number] [place] [address] ALP [Catalytic activity/Vol] 70 U/L Normal 33 - 136 [facility] Comment on above: Performed By: #### C MP ####[id number] [place] [address] ALT [Catalytic activity/Vol] 8 U/L Low 10 - 52 [facility] Comment on above: Result Comment: Darlene ents treated with Sulfasalazine may generate falsely decreased results for ALT. Performed By: #### C MP ####[id number] [place] [address] AST [Catalytic activity/Vol] 14 U/L Normal 9 - 39 [facility] Comment on above: Performed By: #### C MP ####[id number] [place] [address] Bilirubin [Mass/Vol] 0.9 mg/dL Normal 0.0 - 1.2 [facility] Comment on above: Performed By: #### C MP ####[id number] [place] [address] Calcium [Mass/Vol] 8.4 mg/dL Low 8.6 - 10.6 [facility] Comment on above: Performed By: #### C MP ####[id number] [place] [address] Creatinine [Mass/Vol] 2.03 mg/dL High 0.50 - 1.30 [facility] Comment on above: Performed By: #### C MP ####[id number] [place] [address] GFR- AM. 40 mL/min/1.73m2 Abnormal >60 [facility] Comment on above: Result Comment: CALC ULATIONS OF ESTIMATED GFR ARE PERFORMED USING THE MDRD STUDY EQUATION FOR THE IDMS-TRACEABLE CREATININE METHODS. CLIN CHEM 2007;53:766-72 Performed By: #### C MP ####[id number] [place] [address] GFR-NON AM. 33 mL/min/1.73m2 Abnormal >60 [facility] Comment on above: Performed By: #### C MP ####[id number] [place] [address] Glucose [Mass/Vol] 159 mg/dL High 74 - 99 [facility] Comment on above: Performed By: #### C MP ####[id number] [place] [address] HCO3 (Bld) [Moles/Vol] 19 mmol/L Low 21 - 32 [facility] Comment on above: Performed By: #### C MP ####[id number] [place] [address] Potassium [Moles/Vol] 4.4 mmol/L Normal 3.5 - 5.3 [facility] Comment on above: Performed By: #### C MP ####[id number] [place] [address] Protein [Mass/Vol] 5.1 g/dL Low 6.4 - 8.2 [facility] Comment on above: Performed By: #### C MP ####[id number] [place] [address] Urea nitrogen [Mass/Vol] 22 mg/dL Normal 6 - 23 [facility] Comment on above: Performed By: #### C MP ####[id number] [place] [address] Clinical Event Note-CODE DARIAN Carter 04-15-2018 Clinical Event Note-CODE WHITE Event: Topic: [facility] Details: ELLE LAND/MARTHA TEAM CALLED, PT WENT UNCONSCIOUS AFTER STANDING UP. LASTED 1 MINUTE, BP 71/45 HR 68 O2 95%. 2 LITER BOLUS ADMINISTERED , EKG IN CHART, LABS SENT TO LAB. CHANGED PT POSITION, PLACED IN [place]EN[place] AND RECHECKED BP 1 MIN SYSTOLIC 89 , RECHECK 3 MIN BP 91/53. WILL CONTINUE TO MONITOR Provider / Team Contact Information: Provider/Team Contact Info-Pager Number: [phone] Electronic Signatures: Medardo Padgett (RN) (Signed 15-Apr-2018 06:28) Authored: Event, Provider / Team Contact Information Last Updated: 15-Apr-2018 06:28 by Medardo Padgett (GORDON) Normal [facility] Clinical Event Note-Code Darian carter 04-15-2018 Clinical [...] Chief general surgery resident, Dr. Caldwell, and vice president of product marketing, Dr. Traylor, were additionally present during the code white. Clara Eaton MD General Surgery, PGY1 [facility] [phone] Electronic Signatures: Clara Eaton ( (Resident)) (Signed 15-Apr-2018 06:22) Authored: Event Last Updated: 15-Apr-2018 06:22 by Clara Eaton ( (Resident)) Normal [facility] Clinical Event Note-code whbranden suzy 04-15-2018 Clinical [...] Team Contact Information: Provider/Team Contact Info-Pager Number: [phone] Electronic Signatures: Angelica Christopher (STACI) (Signed 15-Apr-2018 10:21) Authored: Event, Provider / Team Contact Information Last Updated: 15-Apr-2018 10:21 by Angelica Christopher (STAIC) Normal [facility] Daily Progress Note-Colorect al Surgeryon 04-15-2018 Daily [...] ----- Mn/Dy/Year TimeIntakeOutputNet Apr 14, 2018 10:00 [id number] Apr 14, 2018 2:00 [id number] The Intake and Output Totals for the last 24 hours are: IntakeOutputNet [id number] T PRBPSpO2 Value37.8451074/5094% Date/Time04/15 8: 9: 9: 9: 9:29 Range(36.2C [...] mg Oral Every 6 Hours 2. HYDROmorphone FREIGHT SORTER 25 mg/ NaCL 0.9% 50 mL: 25 mg IV FREIGHT SORTER 3. Gabapentin: 300 mg Oral 3 Times [...] IS -dvt ppx López Blake [place] [address] Signature/Cosignature/Attesta tion: Attending AttestationI saw and evaluated [...] Updated: 21-Apr-2018 12:05 by Ever Quigley) Normal [facility] EMR ADDONon 04-15-2018 ADDON CONFIRMATION REQUEST REC'D Normal [facility] Comment on above: Performed By: #### E MRAD ####NO LOCATION NEEDED MAGNESIUMon 04-15-2018 Magnesium [Mass/Vol] 1.72 mg/dL Normal 1.60 - 2.40 [facility] Comment on above: Performed By: #### M G ####[id number] [place] [address] PHOSPHORUSon 04-15-2018 Phosphate [Mass/Vol] 6.9 mg/dL High 2.5 - 4.9 [facility] Comment on above: Result Comment: The performance characteristics of phosphorus testing in heparinized plasma have been validated by the individual laboratory site where testing is performed. Testing on heparinized plasma is not approved by the FDA; however, such approval is not necessary. Performed By: #### P HOS ####[id number] [place] [address] SODIUM, URINE SPOTon 019 CREATININE,URINE 2.6 mg/dL Low 20.0 - 370.0 [facility] Comment on above: Performed By: #### S ODS2 ####[id number] [place] [address] Sodium (U) [Moles/Vol] 12 mmol/L Normal Not Established [facility] Comment on above: Performed By: #### S ODS2 ####[id number] [place] [address] SODIUM/CREAT RATIO 462 mmol/g Creat Normal Not Established [facility] Comment on above: Performed By: #### S ODS2 ####[id number] [place] [address] US RENAL BILATon 04-15-2018 US RENAL BILAT Patient Name: ADEN PATEL STUDY: US RENAL BILAT; 04/15/2018 1:40 pm INDICATION: Signs/Symptoms: Olguric. COMPARISON: None. ACCESSION NUMBER(S): [id number] ORDERING CLINICIAN: MARQUEZ BRONSON TECHNIQUE: Grayscale and [...] as stated. This study was interpreted at [facility]. Electronically signed by: CARLA VALENTINO MD, PHD Normal [facility] ABO/RH GROUP TESTon 04-14-19 19 ABO TYPE A Normal [facility] Comment on above: Performed By: #### V ERAB ####[id number] [id number] RH TYPE Positive Normal [facility] Comment on above: Performed By: #### V ERAB ####[id number] [id number] Clinical Event Note-Post Op Checkon 04-14-2018 Clinical [...] acute events. NPO with sips of water, FREIGHT SORTER. SCDs, IS Electronic Signatures: Pantera Wilcox (Resident)) (Signed 14-Apr-2018 17:03) Authored: Event Nolvia Colmenares) (Signed 20-Apr-2018 06:25) Co-Signer: Event Last Updated: 20-Apr-2018 06:25 by Nolvia Colmenares) Normal [facility] History and Physical - Surgi vasiliy Update [...] Last Updated: 20-Apr-2018 05:47 by Nolvia Colmenares) [facility] OPERATIVE REPORTon 9 [place] [address] Patient Name: ADEN PATEL : 1950 Date of Service: 04/14/2018 Patient Location: [facility] [id number] Patient Type: I Surgeon: Nolvia Colmenares MD [...] of ventral hernia. SURGEON: Nolvia Colmenares MD TEXTILE SLITTING MACHINE OPERATOR(S): López Robles Ma, MD ANESTHESIA: General endotracheal. [...] and was sent to Pathology. A new srpl-gs-iscc functional end-to-end ileocolic anastomosis was then created. This was done using a firing of the TAN-80 mm stapler. The open end of the bowel was closed with a firing of the TA-60 stapler, and the staple line was oversewn with a running 3-0 Vicryl stitch for hemostasis. The mesenteric defect was then reapproximated with interrupted 0 chromic sndtfc-el-gkgqt sutures. Attention was then turned to the [...] therefore repaired primarily with interrupted #1 Prolene tcjkxv-le-pgjpk stitches. A 10 mm Josh-Adler drain was [...] above. Dr. López Blake was the surgical instruments inspector. Nolvia Colmenares MD EST TT: 04/22/2018 04:43 PM EST DICTATION NUMBER: [id number] [facility] JOB NUMBER: [id number] CC: Quentin Rangel, [id number] Electronically Signed by Dr. Nolvia Colmenares 05/03/2018 02:54:01 PM Normal [facility] Patient Profile - Preop v2on 04-14-2018 Patient Profile - Preop v2 Profile: Initial Info: How to be Addressedpaul(1) Spoken Language PreferredEnglish (1) Are you currently using the Personal Electronic Health Record or MYUHCAREno (1) Are you interested in learning more about [facility] for the management of your healthnot at this time Stated Reason for Admissionbowel resection Primary Contact Name and [id number] Patient Belongingsremains with patient; under cart Medications Brought to Hospitalno General Health: Weight in kg96.6 kilogram(s) Weight in qwj681.9 pound(s) Weight Methodstated Height in cm182.8 centimeter(s) [...] Withspouse(1) Living Arrangementshouse(1) Resource/Environmental Concernsnone [place]ticipated [place] [facility] Anticipated at Transitionnone Substance: Current or [...] instruction; written material Cultural Considerationsnone Developmental Considerationsnone Jain Considerationsnone Other learner availableno [place] RiskPatient location auto qualifies him/her for HIGH RISK. Are there any cultural, spiritual, latter-day practices/values/needs that are important for us to [...] - Adult v2 04/13/2018 5:58 PM Normal [facility] Preop Checkliston 04-14-2018 Preop Checklist Preop Checklist: Preop Checklist: Arrival [id number] NPO [id number] 00:00 ID Band Onyes Allergy Bandno known [...] 14-Apr-2018 06:38 by Medardo Padgett (GORDON) Normal [facility] TYPE + SCREENon 04-14-2018 ABO TYPE A Normal [facility] Comment on above: Performed By: #### T +S ####[id number] [id number] RH TYPE Positive Normal [facility] Comment on above: Performed By: #### T +S ####[id number] [place] [address] [facility] Surgical Pathology Depar tmenton 04-14-2018 [facility] Surgical Pathology Department Name ADEN PATEL Pathologist: [...] in the bowel. Photographs have been taken. Pile Driver sections are submitted in 7 cassettes. NPH Summary of Cassettes: Specimen Label Site A 1-2 longer fistula tract with possible skin, 2 sales representative trainee sections 3 shorter fistula tract 4 anastomosis site 5 proximal margin, en face 6-7 distal margin, en face nph/04/14/2018 Normal [facility] Comment on above: Performed By: #### U [facility] ####[facility] Surgical Pathology [id number] [facility] [address] Admission Risk Screen - Adul ton 04-13-2018 [...] risk with low risk for associated injury [place] Safety InterventionsWDL *orient to call system *instruct to call for assistance before getting out of bed *non-slip footwear when patient is out of bed *call molina in reach *personal items and telephone in [...] Learning Preferencesskill demonstration Cultural Considerationsnone Developmental Considerationsnone Jain Considerationsnone Other Learnersspouse Learning Assessment (Other Learner): Other learner availableyes... Learnerspouse Factors Influencing Readiness to Learninterest in learning Factors that Impact Ability to Learnnone Devices/Methods Used to Communicatenone Learning Preferencesaudio Cultural Considerationsnone Developmental Considerationsnone Jain Considerationsnone Suicide/Depression Screen: During the past month, [...] Spiritual Screen: Are there any cultural, spiritual, latter-day practices/values/needs that are important for us to knowno Do you want a visit/item from Pastoral Careno Would you like your Decatizer/Radiation Technician notifiedno CAGE: Is this an injured patient at a Trauma Center ([facility]/[place]): no Vaccinations: Vaccination - Influenza Vaccination Screen: [...] Injury: Pressure Injuryno Electronic Signatures: Alanna Roblero (RN) (Signed 13-Apr-2018 17:57) Authored: Admission Risk Screens, Vaccinations, Noam, Pressure Injury Last Updated: 22-Apr-2018 14:00 by Estefania Menjivar (RN) Normal [facility] CBC AND DIFFERENTIALon 04-13 % AUTOMATED IMMATURE GRAN 0.4 % Normal 0.0 - 0.9 [facility] Comment on above: Result Comment: Perc ent differential counts (%) should be interpreted in the context of the absolute cell counts (cells/L). Performed By: #### C BCDF #### [facility] [address] [place] [address] Basophils (Bld) [#/Vol] 0.06 10*3/uL Normal 0.00 - 0.10 [facility] Comment on above: Performed By: #### C BCDF #### [facility] [address] [place] [address] Basophils/100 WBC (Bld) 0.9 % Normal 0.0 - 2.0 [facility] Comment on above: Performed By: #### C BCDF #### [facility] [address] [place] [address] Eosinophils (Bld) [#/Vol] 0.09 10*3/uL Normal 0.00 - 0.70 [facility] Comment on above: Performed By: #### C BCDF #### [facility] [address] [place] [address] Eosinophils/100 WBC (Bld) 1.3 % Normal 0.0 - 6.0 [facility] Comment on above: Performed By: #### C BCDF #### [facility] [address] [place] [address] Erythrocyte distribution width (RBC) [Ratio] 14.6 % High 11.5 - 14.5 [facility] Comment on above: Performed By: #### C BCDF #### [facility] [address] [place] [address] Hematocrit (Bld) [Volume fraction] 40.8 % Low 41.0 - 52.0 [facility] Comment on above: Performed By: #### C BCDF #### [facility] [address] [place] [address] Hemoglobin (Bld) [Mass/Vol] 13.5 g/dL Normal 13.5 - 17.5 [facility] Comment on above: Performed By: #### C BCDF #### [facility] [address] [place] [address] Lymphocytes (Bld) [#/Vol] 1.60 10*3/uL Normal 1.20 - 4.80 [facility] Comment on above: Performed By: #### C BCDF #### [facility] [address] [place] [address] Lymphocytes/100 WBC (Bld) 23.5 % Normal 13.0 - 44.0 [facility] Comment on above: Performed By: #### C BCDF #### [facility] [address] [place] [address] MCHC (RBC) [Mass/Vol] 33.1 g/dL Normal 32.0 - 36.0 [facility] Comment on above: Performed By: #### C BCDF #### [facility] [address] [place] [address] MCV (RBC) [Entitic vol] 96 fL Normal 80 - 100 [facility] Comment on above: Performed By: #### C BCDF #### [facility] [address] [place] [address] Monocytes (Bld) [#/Vol] 0.73 10*3/uL Normal 0.10 - 1.00 [facility] Comment on above: Performed By: #### C BCDF #### [facility] [address] [place] [address] Monocytes/100 WBC (Bld) 10.7 % Normal 2.0 - 10.0 [facility] Comment on above: Performed By: #### C BCDF #### [facility] [address] [place] [address] Neutrophils (Bld) [#/Vol] 4.31 10*3/uL Normal 1.20 - 7.70 [facility] Comment on above: Performed By: #### C BCDF #### [facility] [address] [place] [address] Neutrophils/100 WBC (Bld) 63.2 % Normal 40.0 - 80.0 [facility] Comment on above: Performed By: #### C BCDF #### [facility] [address] [place] [address] Nucleated RBC/100 WBC (Bld) [Ratio] 0.0 /100 WBC Normal 0.0-0.0 [facility] Comment on above: Performed By: #### C BCDF #### [facility] [address] [place] [address] Platelets (Bld) [#/Vol] 240 10*3/uL Normal 150 - 450 [facility] Comment on above: Performed By: #### C BCDF #### [facility] [address] [place] [address] RBC (Bld) [#/Vol] 4.27 x10E12/L Low 4.50 - 5.90 [facility] Comment on above: Performed By: #### C BCDF #### [facility] [address] [place] [address] WBC (Bld) [#/Vol] 6.8 10*3/uL Normal 4.4 - 11.3 [facility] Comment on above: Performed By: #### C BCDF #### [facility] [address] [place] [address] COAGULATION SCREENon 019 aPTT Coag (Bld) [Time] 36 s Normal 28 - 38 [facility] Comment on above: Result Comment: Note new reference range as of 01/17/2018. THE APTT IS NO LONGER USED FOR MONITORING UNFRACTIONATED HEPARIN THERAPY. FOR MONITORING HEPARIN THERAPY, USE THE HEPARIN ASSAY. Performed By: #### C OAGS #### [facility] [address] [place] [address] INR Coag (PPP) [Relative time] 1.0 {INR} Normal 0.9 - 1.1 [facility] Comment on above: Performed By: #### C OAGS #### [facility] [address] [place] [address] PT Coag (PPP) [Time] 11.3 s Normal 9.7 - 12.7 [facility] Comment on above: Result Comment: Note new reference range as of 01/17/2018. Performed By: #### C OAGS #### [facility] [address] [place] [address] Discharge Planning Noteon Discharge Planning Note Discharge Needs Assessment: Discharge Planning Assessment [id number] Discharge Planning Assessment Completed byNICK Stafford Readmission [...] Admission completed. Alexia LEYVA 04/20/18 @ 1145 Bark Fitter: attempted to see pt, but he was in surgery. NICK Stafford 04/21/18 1500 Bark Fitter: Attempted to see pt today, but he was having a central line placed. Per [employer], Garima Alarcon, tentative plan is for surgery on 04/24 for abd wound closure. NICK Stafford 04/24/18 @ 1530 residential coordinator: attempted to see pt, but he was in surgery for abd wound closure. NICK Stafford 04/27/18 @ 1705 residential coordinator: Interdisciplinary rounds completed at the bedside [...] to bad hip and gout. Pt had [facility] care nurse in the past for wound care. Address/phone verified. Home phone [phone] and 's cell [phone]. Pt has insurance, Aetna and Medicare a/b. PCP is Dr Rangel and preferred pharmacy is [facility] in [place]. Pt eval recommends SNF, but believes pt will be strong enough to go home with home care after discharge and if so would like [facility] home care. PT/OT will continue to evaluate discharge needs. SNF vs Home Care. NICK Stafford 04/28/18 114 residential coordinator note: In Interdisciplinary rounds I was told that the pt and do not want pt to go to a SNF despite PT recommending one. I will send preliminary home care referral to [facility] via the AC. Марина Fuentes RN Bark Fitter 05/01/18 @ 1122 Bark Fitter: Pt will discharge home today with and home care from [facility] for RN and PT. Pt/ given the name and number to Reynaldo, Dr Colmenares and CRS healthcare economics manager to call with any questions or concerns. NICK Stafford 05-01-2018 11:39 Discharge Planning Progress Note - AC 05/01/18 @ 1105 IMM delivered to the pt. The IMM was signed, dated and copy given to pt and original placed in chart. (Hannah Shin RN) 05/01/18 @1250 Patient Manager Credit Note: Final HCO sent to [facility] for RN and PT service. NIKITA Mart [phone] 05/01/18 @ 1449: Pt discharged from [facility]. Pt given discharge instructions, present for teaching. PICC line removed from L upper arm. L upper arm appears to be swollen before and after removal. ASSET PROTECTION AGENT is aware and still advises. to remove [...] Screen - Adult 04/13/2018 5:52 PM Normal [facility] HEPATIC FUNCTION PANELon ALP [Catalytic activity/Vol] 112 U/L Normal 33 - 136 [facility] Comment on above: Performed By: #### H EPFP #### [facility] [address] [place] [address] ALT [Catalytic activity/Vol] 13 U/L Normal 10 - 52 [facility] Comment on above: Result Comment: Darlene ents treated with Sulfasalazine may generate falsely decreased results for ALT. Performed By: #### H EPFP #### [facility] [address] [place] [address] AST [Catalytic activity/Vol] 17 U/L Normal 9 - 39 [facility] Comment on above: Performed By: #### H EPFP #### [facility] [address] [place] [address] Bilirubin [Mass/Vol] 0.8 mg/dL Normal 0.0 - 1.2 [facility] Comment on above: Performed By: #### H EPFP #### [facility] [address] [place] [address] Bilirubin.direct [Mass/Vol] 0.2 mg/dL Normal 0.0 - 0.3 [facility] Comment on above: Performed By: #### H EPFP #### [facility] [address] [place] [address] Protein [Mass/Vol] 7.2 g/dL Normal 6.4 - 8.2 [facility] Comment on above: Performed By: #### H EPFP #### [facility] [address] [place] [address] History and Physicalon 04-13 History and Physical [...] Family hx: HTN Rectal cancer in brother [place] in both parents Social: Current everyday smoker, [...] are negative Objective: Objective Information: T PRBPSpO2 Value36.77860725/7899% Date/Time04/13 19:4804/13 19:4804/13 19:4804/13 19:4804/13 19:48 Range(36.2C [...] tract at the anastomosis. Plan: -Admit to [facility] -CLD, NPO at la -Resume home beta jeannette as metoprolol 100mg BID -SCDs, SQH -Consented for OR tomorrow Discussed with Dr. Sanjana Eaton MD General Surgery, PGY1 [facility] [address] Signatures/Attestation/Certif ication: Attending AttestationI saw and evaluated [...] Updated: 20-Apr-2018 05:43 by Nolvia Colmenares) Normal [facility] History and Physical Comorbidities: Comorbid Conditionshypertension Allergies: [...] Updated: 13-Apr-2018 11:03 by Nancy Kat) Normal [facility] MAGNESIUMon 04-13-2018 Magnesium [Mass/Vol] 1.76 mg/dL Normal 1.60 - 2.40 [facility] Comment on above: Performed By: #### M G #### [facility] [address] [place] [address] Patient Profile - Adult v2on 04-13-2018 Patient Profile - Adult v2 Profile: Initial Info: How to be Addressedpaul(1) Spoken Language PreferredEnglish (1) Source of Informationpatient Are you currently using the Personal Electronic Health Record or Fieldbook (1) Stated Reason for Admissionsurgery in the [place] Belongingsremains with patient Patient Belongings Remaining with Patientcell phone/electronics Medications Brought to Hospitalno General Health: Weight in kg94.7 kilogram(s) Weight in ucd912.7 pound(s) Height in feet6 feet Height in inches0 inch(es) Height in cm182.8 centimeter(s) BMI (kg/m2)28.339 square meter Weight Methodactual (measured) Scale Typebed Height Methodstated Blood Avoidance/Restrictionsnone(1) Previous Transfusion Reactionno(1) [facility] Based Care: How would you like to [...] Withspouse Living Arrangementshouse Resource/Environmental Concernsnone [facility]ticipated [facility] Anticipated at Transitionnone Significant IndicatorsComplete Information [...] - Preop v2 04/13/2018 10:42 AM Normal [facility] Patient Profile - Preop v2on 04-13-2018 Patient Profile - Preop v2 Profile: Initial Info: How to be Addressedpaul Spoken Language PreferredEnglish Are you currently using the Personal Electronic Health Record or CarlotzCAREno Are you interested in learning more about [facility] for the management of your healthnot at this time Stated Reason for Admissionegd/colonoscopy Primary Contact Name and [id number] Patient Belongingsremains with patient; under cart Medications Brought to Hospitalno General Health: Weight in kg96.6 kilogram(s) Weight in ilx507 pound(s) Weight Methodstated Height in cm182.8 centimeter(s) [...] Withspouse Living Arrangementshouse Resource/Environmental Concernsnone [facility]tic[facility]ated [facility] Anticipated at Transitionnone Substance: Current or [...] instruction; written material Cultural Considerationsnone Developmental Considerationsnone Jain Considerationsnone Other learner availableno [place] RiskPatient location auto qualifies him/her for HIGH RISK. Are there any cultural, spiritual, latter-day practices/values/needs that are important for us to [...] 13-Apr-2018 10:47 by Sarah Neff (STACI) Normal [facility] Preop Checkliston 04-13-2018 Preop Checklist Preop Checklist: Preop Checklist: Arrival [id number] Arrival Time10:30 Procedure Typecolonoscopy/egd NPO [id number] 08:00 ID Band Onyes Allergy Bandno known [...] 13-Apr-2018 10:43 by Tona Cárdenas (GORDON) Normal [facility] RENAL FUNCTION PANELon 04-13 Albumin [Mass/Vol] 4.5 g/dL Normal 3.4 - 5.0 [facility] Comment on above: Performed By: #### R ENAL ####[id number] [place] [address] Performed By: #### H EPFP #### [facility] [address] [place] [address] Anion gap [Moles/Vol] 14 mmol/L Normal 10 - 20 [facility] Comment on above: Performed By: #### R ENAL ####[id number] [place] [address] Calcium [Mass/Vol] 10.0 mg/dL Normal 8.6 - 10.6 [facility] Comment on above: Performed By: #### R ENAL ####[id number] [place] [address] Chloride [Moles/Vol] 98 mmol/L Normal 98 - 107 [facility] Comment on above: Performed By: #### R ENAL ####[id number] [place] [address] Creatinine [Mass/Vol] 0.71 mg/dL Normal 0.50 - 1.30 [facility] Comment on above: Performed By: #### R ENAL ####[id number] [place] [address] GFR- AM. >60 Normal >60 [facility] Comment on above: Result Comment: CALC ULATIONS OF ESTIMATED GFR ARE PERFORMED USING THE MDRD STUDY EQUATION FOR THE IDMS-TRACEABLE CREATININE METHODS. CLIN CHEM 2007;53:766-72 Performed By: #### R ENAL ####[id number] [place] [address] GFR-NON AM. >60 Normal >60 [facility] Comment on above: Performed By: #### R ENAL ####[id number] [place] [address] Glucose [Mass/Vol] 74 mg/dL Normal 74 - 99 [facility] Comment on above: Performed By: #### R ENAL ####[id number] [place] [address] HCO3 (Bld) [Moles/Vol] 28 mmol/L Normal 21 - 32 [facility] Comment on above: Performed By: #### R ENAL ####[id number] [place] [address] Phosphate [Mass/Vol] 3.9 mg/dL Normal 2.5 - 4.9 [facility] Comment on above: Result Comment: The performance characteristics of phosphorus testing in heparinized plasma have been validated by the individual laboratory site where testing is performed. Testing on heparinized plasma is not approved by the FDA; however, such approval is not necessary. Performed By: #### R ENAL ####[id number] [place] [address] Potassium [Moles/Vol] 4.3 mmol/L Normal 3.5 - 5.3 [facility] Comment on above: Performed By: #### R ENAL ####[id number] [place] [address] Sodium [Moles/Vol] 136 mmol/L Normal 136 - 145 [facility] Comment on above: Performed By: #### R ENAL ####[id number] [place] [address] Urea nitrogen [Mass/Vol] 9 mg/dL Normal 6 - 23 [facility] Comment on above: Performed By: #### R ENAL ####[id number] [place] [address] TRIGLYCERIDESon 04-13-2018 Triglyceride [Mass/Vol] 61 mg/dL Normal 0 - 149 [facility] Comment on above: Result Comment: . AGE [...] Metamizole dosing. Performed By: #### T RIG ####[id number] [place] [address] Established Visit (Gastroent erology)on 04-05-2018 Established Visit (Gastroenterology ) Chief ComplaintFollow up History of Present Gnnoxob44 yo man following up in the office [...] Current Meds Allopurinol 300 MG Oral Tablet;Therapy: 54Geb6274 to RecordedDispense: 0 Days ; #: Sufficient Tablet; Refill: 0; KRISTEN = N; Record; Last Updated By: Hali Palomo; 10/04/2017 3:19:33 PM Bystolic 20 MG Oral Tablet;Therapy: 01Mvj8111 to RecordedDispense: 0 Days ; #: Sufficient Tablet; Refill: 0; KRISTEN = N; Record; Last Updated By: Hali Palomo; 10/04/2017 3:19:33 PM CloNIDine HCl - 0.1 MG Oral Tablet;Therapy: 13Lce4002 to RecordedDispense: 0 Days ; #: Sufficient Tablet; Refill: 0; KRISTEN = N; Record; Last Updated By: Hali Palomo; 10/04/2017 3:19:33 PM Colcrys 0.6 MG Oral Tablet;Therapy: 39Lho1744 to RecordedDispense: 0 Days ; #: Sufficient [...] Sodium 75 MG Oral Tablet Delayed Release;Therapy: 51Owj0594 to RecordedDispense: 90 Days ; #:180; Refill: 0; KRISTEN = N; Record; Last Updated By: Sandi Barry; 04/04/2018 12:37:18 PM Ferrous Sulfate 325 (65 Fe) MG Oral Tablet; TAKE 1 TABLET BY MOUTH TWICE A DAY;Therapy: 27Eym1275 to RecordedRx By: JUAN CARLOS; Dispense: 90 Days ; #:180; Refill: 0; KRISTEN = N; Record; Last Updated By: Rj Barrythmarkie Woods; 04/04/2018 12:37:18 PM Furosemide 20 MG Oral Tablet;Therapy: 43Odp4339 to RecordedDispense: 90 Days ; #:90; Refill: 0; KRISTEN = N; Record; Last Updated By: Rj Barrythmarkie Woods; 04/04/2018 12:37:18 PM Vitals Vital Signs Recorded: 04Apr2018 12:67RJKewegvgrlbv60.9 FHeart Gdbu52Gqlfjzaq639Dydntjcrk00N eight6 ft Hndoxv257 lb BMI Bddaiozqor10.75BSA Calculated2.18 Physical ExamConstitutional General appearance: In no [...] GI; Status:Hold For - Scheduling; Requested for:04Apr2018; Perform:[facility]; Order Comments:needs anesthesia; Due:03Jul2018;Ordered; For:Abnormal weight loss; Ordered By:Nancy Kat;GI Mental Competence : Yes-pt mentally competent to provide consentEGD/Sigmoid Indications : Abdominal PainDiverticulitis of colon Colonoscopy; Status:Hold For - Scheduling; Requested for:04Apr2018; Perform:[facility]; Due:03Jul2018;Ordered; For:Diverticulitis of colon; Ordered By:Nancy Kat;GI Mental Competence : Yes-pt mentally competent to provide consentAdditional Information/Preferred Provider : no prior colonsocopyIndications : Abdominal PainHistory of diverticulitis of colon CT Abdomen and Pelvis with Contrast; Status:Hold For - Scheduling; Requestedfor:04Apr2018; Perform:[facility]; Due:03Jul2018;Ordered; For:History of diverticulitis [...] directives: living will and durable power of vacuum applicator operator for health care directives. Pain Screening: the [...] Current Meds Allopurinol 300 MG Oral Tablet;Therapy: 48Yqs6799 to Recorded Dispense: 0 Days ; #: Sufficient Tablet; Refill: 0; KRISTEN = N; Record; Last Updated By: Hali Palomo; 10/04/2017 3:19:33 PM Bystolic 20 MG Oral Tablet;Therapy: 39Nhu2646 to Recorded Dispense: 0 Days ; #: Sufficient Tablet; Refill: 0; KRISTEN = N; Record; Last Updated By: Hali Palomo; 10/04/2017 3:19:33 PM CloNIDine HCl - 0.1 MG Oral Tablet;Therapy: 12Buz0749 to Recorded Dispense: 0 Days ; #: Sufficient Tablet; Refill: 0; KRISTEN = N; Record; Last Updated By: Hali Palomo; 10/04/2017 3:19:33 PM Colcrys 0.6 MG Oral Tablet;Therapy: 03Ewp0448 to Recorded Dispense: 0 Days ; #: Sufficient Tablet; Refill: 0; KRISTEN = N; Record; Last Updated By: Hali Palomo; 10/04/2017 3:19:33 PM Indomethacin 50 MG Oral Capsule;Therapy: 86Spj0876 to Recorded Dispense: 0 Days ; #: Sufficient Capsule; Refill: 0; KRISTEN = N; Record; Last Updated By: Hali Palomo; 04/04/2018 12:37:17 PM Lisinopril 20 MG Oral Tablet;Therapy: 42Lmk1115 to Recorded Dispense: 0 Days ; #: Sufficient Tablet; Refill: 0; KRISTEN = N; Record; Last Updated By: Hali Palomo; 04/04/2018 12:37:17 PM Norvasc 10 MG Oral Tablet;Therapy: 75Ync4343 to Recorded Dispense: 0 Days ; #: Sufficient Tablet; Refill: 0; KRISTEN = N; Record; Last Updated By: Hali Palomo; 04/04/2018 12:37:17 PM Potassium Chloride 10 MEQ/50ML Intravenous Solution;Therapy: 69Lnc2267 to Recorded Dispense: 0 Days ; #: Sufficient ML; Refill: 0; KRISTEN = N; Record; Last Updated By: Hali Palomo; 04/04/2018 12:37:17 PM Protonix 40 MG Oral Packet;Therapy: 72Fko9275 to Recorded Dispense: 0 Days ; #: Sufficient Packet; Refill: 0; KRISTEN = N; Record; Last Updated By: Hali Palomo; 04/04/2018 12:37:17 PM Sodium Chloride 1 GM Oral Tablet;Therapy: 36Tgz6937 to Recorded Dispense: 0 Days ; #: Sufficient Tablet; Refill: 0; RKISTEN = N; Record; Last Updated By: Hali Palomo; 04/04/2018 12:37:17 PM TPN Electrolytes Intravenous Solution;Therapy: 37Nkl9606 to Recorded Dispense: 0 Days ; #: Sufficient ML; Refill: 0; KRISTEN = N; Record; Last Updated By: Hali Palomo; 04/04/2018 12:37:17 PM Venlafaxine HCl - 75 MG Oral Tablet;Therapy: 63Joc1118 to Recorded Dispense: 0 Days ; #: Sufficient Tablet; Refill: 0; KRISTEN = N; Record; Last Updated By: Hali Palomo; 04/04/2018 12:37:17 PM Vitals Vital Signs Recorded: 04Apr2018 02:11MJWhhmierhamb00.1 FHeart Uzgz25Bkuibbxp758Hhzedpzkj17T eight6 ft Qlyijo123 lb BMI Gakxgstyjd13.57BSA Calculated2.21 Physical Exam Constitutional: General appearance: In [...] every day smoker; Ordered By:Ondina Mora; Patient Discussion/Lluwjfo55 yo male with history of complicated left [...] and examined. Agree with above.Dr. Colmenares. [facility] Initial Visit (Gastroenterol ogy)on 10-05-2017 Initial Visit (Gastroenterology ) Chief ComplaintEstablish new patient relationship History of Present Ddiobsc24 yo man from [facility] comes in for a second opinion visit. He tells me that he developed severe abdominal pain around 2017. After several days of pain he went to [facility] and was told that he has perforated diverticulitis. He was transferred to [facility] and there told that surgery was not indicated and that he should respond to treatment with IV antibiotics. Patient was discharged home, readmitted shortly after for management of volume overload. Within next 1-2 weeks, he returned to [facility] with severe right sided pain. The concern [...] Current Meds Allopurinol 300 MG Oral Tablet;Therapy: 80Cac2903 to Recorded Dispense: 0 Days ; #: Sufficient Tablet; Refill: 0; KRISTEN = N; Record; Last Updated By: Hali Palomo; 10/04/2017 3:19:33 PM Bystolic 20 MG Oral Tablet;Therapy: 71Aog0539 to Recorded Dispense: 0 Days ; #: Sufficient Tablet; Refill: 0; KRISTEN = N; Record; Last Updated By: Hali Palomo; 10/04/2017 3:19:33 PM CloNIDine HCl - 0.1 MG Oral Tablet;Therapy: 52Rhp3799 to Recorded Dispense: 0 Days ; #: Sufficient Tablet; Refill: 0; KRISTEN = N; Record; Last Updated By: Hali Palomo; 10/04/2017 3:19:33 PM Colcrys 0.6 MG Oral Tablet;Therapy: 60Lhm7815 to Recorded Dispense: 0 Days ; #: Sufficient Tablet; Refill: 0; KRISTEN = N; Record; Last Updated By: Hali Palomo; 10/04/2017 3:19:33 PM Indomethacin 50 MG Oral Capsule;Therapy: 07Pmo8272 to Recorded Dispense: 0 Days ; #: Sufficient Capsule; Refill: 0; KRISTEN = N; Record; Last Updated By: Hali Palomo; 10/04/2017 3:19:33 PM Lisinopril 20 MG Oral Tablet;Therapy: 50Wml4364 to Recorded Dispense: 0 Days ; #: Sufficient Tablet; Refill: 0; KRISTEN = N; Record; Last Updated By: Hali Palomo; 10/04/2017 3:19:33 PM Norvasc 10 MG Oral Tablet;Therapy: 47Ysx3474 to Recorded Dispense: 0 Days ; #: Sufficient Tablet; Refill: 0; KRISTEN = N; Record; Last Updated By: Hali Palomo; 10/04/2017 3:19:33 PM Potassium Chloride 10 MEQ/50ML Intravenous Solution;Therapy: 81Uan6017 to Recorded Dispense: 0 Days ; #: Sufficient ML; Refill: 0; KRISTEN = N; Record; Last Updated By: Hali Palomo; 10/04/2017 3:19:33 PM Protonix 40 MG Oral Packet;Therapy: 79Uta5443 to Recorded Dispense: 0 Days ; #: Sufficient Packet; Refill: 0; KRISTEN = N; Record; Last Updated By: Hali Palomo; 10/04/2017 3:19:33 PM Sodium Chloride 1 GM Oral Tablet;Therapy: 60Jzf1529 to Recorded Dispense: 0 Days ; #: Sufficient Tablet; Refill: 0; KRISTEN = N; Record; Last Updated By: Hali Palomo; 10/04/2017 3:19:33 PM TPN Electrolytes Intravenous Solution;Therapy: 42Mli3631 to Recorded Dispense: 0 Days ; #: Sufficient ML; Refill: 0; KRISTEN = N; Record; Last Updated By: Hali Palomo; 10/04/2017 3:27:17 PM Venlafaxine HCl - 75 MG Oral Tablet;Therapy: 21Amz0133 to Recorded Dispense: 0 Days ; #: Sufficient Tablet; Refill: 0; KRISTEN = N; Record; Last Updated By: Hali Palomo; 10/04/2017 3:19:33 PM Vitals Vital Signs Recorded: 25Nii2324 03:82PPKsbicqixmkx96.6 FHeart Ytxe76Mnexoiewqdn88Yklskfrc18 6Ezfhrkwyq02Cmglro1 ft Klghez065 lb BMI Gvqzbbkseb95.89BSA Calculated2.19 Physical ExamConstitutional General appearance: In no [...] Discussion/SummaryI WILL HAVE TO GET RECORDS FROM [facility]. I RECOMMEND EGD AND COLONOSCOPY IN AN ADDITIONAL MONTH. 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 Pain Screening: the [...] of Encounter MedsAllopurinol 300 MG Oral Tablet;Therapy: 36Jja3628 to RecordedBystolic 20 MG Oral Tablet;Therapy: 01Oyq7846 to RecordedCloNIDine HCl - 0.1 MG Oral Tablet;Therapy: 31Sqc6126 to RecordedColcrys 0.6 MG Oral Tablet (Colchicine);Therapy: 44Nnw7294 to RecordedIndomethacin 50 MG Oral Capsule;Therapy: 76Vmc5584 to RecordedLisinopril 20 MG Oral Tablet;Therapy: 52Hjw9065 to RecordedNorvasc 10 MG Oral Tablet (AmLODIPine Besylate);Therapy: 40Zuf2486 to RecordedPotassium Chloride 10 MEQ/50ML Intravenous Solution;Therapy: 16Pao6587 to RecordedProtonix 40 MG Oral Packet;Therapy: 00Jyg5327 to RecordedSodium Chloride 1 GM Oral Tablet;Therapy: 63Nqd1427 to RecordedTPN Electrolytes Intravenous Solution;Therapy: 96Zgo0962 to RecordedVenlafaxine HCl - 75 MG Oral Tablet;Therapy: 61Org1666 to Recorded Signatures Electronically signed by : Nancy Kat MD; Oct 05 2017 6:00PM EST (Author) [facility] Intraoperative Noteon 2017 Intraoperative Note [id number]#1.00[facility]operative [facility] 2017 Intraoperative Note [id number]#[address] [place] [address] Coding Summaryon 01-29-2017 Coding Summary CODING DATE: 017 [facility] STATUS: Home PAYOR: Commercial Insurance APC DESCRIPTION [...] of the body) 59 Distinct Procedural Servi 80873 5113 J1 Excision, olecranon Jamison Will And [...] [place] Revised Date Saved: 10/28/2016 12:56 pm [facility] History and Physicalon 01-06 History and Physical [id number]#[address] Provider Orderson 01-06-2017 Provider Orders [id number]#[address] Coding Summaryon 01-03-2017 Coding Summary CODING DATE: 017 [facility] STATUS: Home PAYOR: Commercial Insurance ADMIT DX: [...] Марина Davalos Date Saved: 01/03/2017 08:12 am [facility] Coding Summaryon 12-30-2016 Coding Summary CODING DATE: 017 [facility] STATUS: Home PAYOR: Commercial Insurance APC DESCRIPTION 5072 Level 2 Excision/ Biopsy/ Incision and Drainage ADMIT DX: REASON FOR VISIT DX: 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 See Report [facility] Comment on above: Order Comment: SOFT TISSUE RIGHT ELBOW Performed By: #### 2 [id number] ####[facility] (DEFAULT)[address] [place] [address] MAGR Intraoperative Recordon 12-28-2016 MAGR Intraoperative Record MAGR Intra-Op Record Summary Primary Physician: Jamison Will DO Finalized Date/Time: 12/28/16 12:59:34 Pt. Name: ADEN PATEL Travis /Sex: 1950 MALE Med Rec #: [id number] Physician: Jamison Will DO Financial #: [id number] Pt. Type: D Room/Bed: / Admit/Disch: 12/24/16 [...] Role Performed Surgeon - Primary Anesthesiologist of [employer] Laboratory Assistant Record Time In 12/24/16 13:20:00 12/24/16 13:20:00 12/24/16 13:20:00 Time Out 12/24/16 13:54:00 12/24/16 13:54:00 12/24/16 13:54:00 Procedure Incision and Incision and Incision and Drainage(Right) Drainage(Right) Drainage(Right) Last Modified By: Dania Zhu RN, Lora RN Fresch, Lora RN 12/24/16 14:03:54 12/24/16 14:03:54 12/24/16 14:03:54 Entry 4 Entry 5 Entry 6 Case Attendee Marko Dang Lora RN Long, Barbara RN Regina WEAPONS AND TACTICS INSTRUCTOR Role Performed Scrub Personnel Bar Helper Bar Helper Time In 12/24/16 13:20:00 12/24/16 13:20:00 12/24/16 13:20:00 Time Out 12/24/16 13:54:00 12/24/16 13:54:00 12/24/16 13:54:00 Procedure Incision and Incision and Incision and Drainage(Right) Drainage(Right) Drainage(Right) Last Modified By: Dania Zhu RN, Lora RN Fresch, Lora RN 12/24/16 14:03:54 12/24/16 14:03:54 12/24/16 14:03:54 Entry 7 Case Attendee Macey Bradley RN Role Performed Bar Helper Time In 12/24/16 13:20:00 Time Out 12/24/16 [...] 12/24/16 12:55:00 Performed By Maria Ines Dang WEAPONS AND TACTICS INSTRUCTOR Counts Verification Final Counts Items Included in Sponges, Sharps Final Count Method Manual Final Count Final Count Status Correct Final Counts Dania Zhu RN, Performed By Maria Ines Dang WEAPONS AND TACTICS INSTRUCTOR Final Count Time 12/24/16 13:45:00 Surgeon notified of Yes final counts status Outcome Met (O.20) Yes Last Modified By: Dania Zhu RN 12/24/16 13:48:11 Post-Care Text: E.50 Evaluates [...] Met (O.60) Yes Last Modified By: Dania Zuh RN 12/24/16 14:02:43 Post-Care Text: E.10 Evaluates [...] for Unfinalizing 12/28/16 12:58 MHBSOFIAK Correct Documentation [facility] Consent Formson 12-27-2016 Consent Forms [id number]#1.00OTGTIFF [facility] Discharge Instructionson Discharge Instructions [id number]#1.00[facility] Telemetry Stripson 7 Telemetry Strips [id number]#1.00OTGTIFF [facility] Anesthesia Noteon 12-24-2016 Anesthesia Note Patient: [...] on: 12/24/2016 14:40 EDT] Feliciano Davies MD [facility] Anesthesia Note Patient: Rosa PATEL : 66 years Sex: MALE : [birth year]Associated Diagnoses: NoneAuthor: Feliciano Davies MDPreoperative InformationAnesthesia history: Patient history: No difficult intubation, No malignant hyperthermia. Family history: No malignant hyperthermia.Review of SystemsRespiratory: Apnea, No shortness of breath.Cardiovascular: No known KS, No chest pain.Gastrointestinal: No heartburn.Health StatusAllergies:Allergic Reactions [...] medical history):All ProblemsSleep apnea / SNOMED CT [id number]-TV525 WK08GBT / ConfirmedGout / SNOMED CT 108868572 / ConfirmedHypertension / SNOMED CT 3885968682 / ConfirmedSmoker / SNOMED CT 025749502 / ConfirmedResolved: Pulmonary emboli / SNOMED CT 3198883922NabwwstnrIckobg History:No family history items have been selected or recorded.Procedure history:Inguinal hernia ([id number]).Comments:10/16/19 09:36 - Jasmin Narayanan RNright sideIncision AND drainage ([id number]).Comments: 14:20 - Betsy Middleton RNright elbowSocial History [...] interpretation: 10/15/16 = SB, possible old inferior KS.PlanAmerican Society of Anesthesiologists#(ASA) physical status classification: Class III.Anesthetic Preoperative PlanAnesthesia: General.. Anesthetic plan, risks, benefits, and alternatives discussed with the patient and/or family. Patient verbalized understanding. Informed consent was given. Consent was signed by the patient.[Electronically Signed on: 12/24/2016 12:14 EDT] Feliciano Davies MD[Verified on: 12/24/2016 12:14 EDT] Feliciano Davies MD Normal [facility] Inpatient Clinical Summaryon 12-24-2016 Inpatient Clinical Summary [facility] SURGERYClinical Discharge SummaryPERSON INFORMATIONName JORGE ADEN Robles Age 66 Years 54Sex MALE Language Namibian PCP Joseph RANGEL Status [facility] Service Ambulatory SurgeryN [id number] Acct# Arrival 12/24/16 10:57:01Visit Reason SURGERY - RIGHT ELBOW FISTULECTOMY - DELAYED PRIMARY CLOSURE OF WOUND Acuity LOS 007 06:09[address] [id number]:PROVIDER INFORMATIONVITALS INFORMATIONVital Sign Triage LatestTemp OralTemp Temporal 36.7 DegC 36.2 DegCTemp IntravascularTemp AxillaryTemp Fbazmy84 Sat 98 % 95 %Respiratory Rate 20 [...] Disposition:Discharge Location:DEPART REASON INCOMPLETE INFORMATIONPATIENT EDUCATION INFORMATIONInstructions:Magan eston- Post Op Carpal Tunnel ([facility])Follow up:With: Address: When:Jamison Will [address] [facility], [facility] [address] [place], [phone] Business (2) 12/30/2016 8:45 AMWith: Address: When:QUENTIN RANGEL [address] [place] [address] [place] [address] Business (1)DIAGNOSISGouty bursitisComment:PHYS DOC NOTES Normal [facility] Inpatient Patient Summaryon 12-24-2016 Inpatient Patient Summary [address] [address] patient Discharge InstructionsName: ADEN PATEL DDOB: [birth year] Address: [address] [place] [address] Care Provider:Name: QUENTIN RANGELPhone: Discharge Diagnosis: Gouty [...] or business decisions or sign any legal documentsMet[facility]health Parma Medical Center would like to thank you for allowing us to assist you with your healthcare needs. The following includes patient education materials and information regarding your injury/illness.ADEN PATEL has been given the following list of follow-up instructions, prescriptions, and patient education materials:Follow-up InstructionsWith: Address: When:Jamison Will [address] [place] [address] Business (2) 12/30/2016 8:45 AMWith: Address: When:QUENTIN RANGEL [address] [facility] [place] [address] Business (1)MedicationsDuring the course of your visit, [...] while awake-DO NOT lift heavy objects or bookstore clerk forcefully with your hand-Change your dressing in 1 day and apply an rocael bandage-You may shower in 1 day but do not submerge your hand under water. Put a 4x4 gauze and the rocael bandage back on after you shower-If you have any problems or concerns, please call the office at [phone]-Follow up as scheduled Viruses or BacteriaWhat?s got [...] Antibiotics Radha.[place]. Department of Health and Human ServicesMckitrick Hospitalers for Disease Control and Prevention November 2013 [facility] MAGR PACU Recordon 7 MAGR PACU Record MAGR PACU Record Tavo bassett Primary Physician: Jamison Will DO Finalized Date/Time: 12/24/16 14:10:26 Pt. Name: ADEN PATEL/Sex: 1950 MALE Med Rec #: [id number] Physician: Jamison Will DO Financial #: [id number] Pt. Type: D Room/Bed: / Admit/Disch: 12/24/16 [...] Signed By: Hali Lan RN 12/24/16 14:10 [facility] MAGR Postoperative Recordon 12-24-2016 MAGR Postoperative Record MAGR Phase II Record Summary Primary Physician: Jamison Will DO Finalized Date/Time: 12/24/16 15:10:31 Pt. Name: ADEN PATEL/Sex: 1950 MALE Med Rec #: [id number] Physician: Jamison Will DO Financial #: [id number] Pt. Type: D Room/Bed: / Admit/Disch: 12/24/16 [...] Signed By: Betsy Middleton RN 12/24/16 15:10 [facility] Preoperative Recordon 0 [facility]-2016 [facility] Pre-Op Record Summary Primary Physician: Jamison Will DO Finalized Date/Time: 12/24/16 14:21:32 Pt. Name: ADEN PATEL/Sex: 1950 MALE Med Rec #: [id number] Physician: Jamison Will DO Financial #: [id number] Pt. Type: D Room/Bed: / Admit/Disch: 12/24/16 [...] which ones to take. Pt is very [place] inspite of hearing aids. Finalized By: Betsy Middleton RN Document Signatures Signed By: Betsy Middleton RN 12/24/16 14:21 Normal [facility] Operative Report - Surgeon/P deuce 12-24-2016 Operative [...] on: 12/24/2016 14:41 EDT] Jamison Will DO [facility] Progress Note - Nurseon 11-27 Progress Note - Nurse preop call completed....spoke with patients .....patient to arrive at 1100 and reminded to remain NPO after midnight for 12/24/16 surgery[Electronically Signed on: 12/23/2016 09:24 EDT] Alycia Reddy RN[Verified on: 12/23/2016 09:24 EDT] Alycia Reddy RN [facility] Progress Note - Nurseon 11-27 Progress Note - Nurse Dr. Davies reviews chart for upcoming surgery 12/24/16....no orders received[Electronically Signed on: 12/22/2016 13:13 EDT] Alycia Reddy RN[Verified on: 12/22/2016 13:13 EDT] Alycia Reddy RN [facility] .Auto Diff 1on 12-21-2016 Auto Baso % 0.4 % Normal 0.2-2.0 [facility] Comment on above: Performed By: #### 7 [id number], [id number], [id number] ####[facility] (DEFAULT)[address] [place] [address] Auto Summit % 13 % High 1-12 [facility] Comment on above: Performed By: #### 7 [id number], [id number], [id number] ####[facility] (DEFAULT)[address] [place] [address] Auto Neut % 62 % Normal 44-88 [facility] Comment on above: Performed By: #### 7 [id number], [id number], [id number] ####[facility] (DEFAULT)[address] [place] [address] Baso Abs# 0.0 x10 Normal 0.0-0.2 [facility] Comment on above: Performed By: #### 7 [id number], [id number], [id number] ####[facility] (DEFAULT)[address] [place] [address] Eos Abs# 0.1 x10 Normal 0.0-0.4 [facility] Comment on above: Performed By: #### 7 [id number], [id number], [id number] ####[facility] (DEFAULT)[address] [place] [address] Eosinophils/100 leukocytes 0.7 % Low 0.9-4.0 [facility] Comment on above: Performed By: #### 7 [id number], [id number], [id number] ####[facility] (DEFAULT)[address] [place] [address] Lymphocytes 2.2 x10 Normal 1.3-2.9 [facility] Comment on above: Performed By: #### 7 [id number], [id number], [id number] ####[facility] (DEFAULT)[address] [place] [address] Lymphocytes/100 leukocytes 24 % Normal 14-48 [facility] Comment on above: Performed By: #### 7 939389, [id number], [id number] ####[facility] (DEFAULT)[address] [place] [address] Summit Abs# 1.2 x10 High 0.0-0.8 [facility] Comment on above: Performed By: #### 7 [id number], [id number], [id number] ####[facility] (DEFAULT)[address] [place] [address] Neut Abs# 5.7 x10 Normal 1.5-9.2 [facility] Comment on above: Performed By: #### 7 [id number], [id number], [id number] ####[facility] (DEFAULT)[address] [place] [address] BMP Standardon 12-21-2016 eGFR (non-black) mL/min/{1.73_m2} Invalid Interpretation Code [facility] Comment on above: Performed By: #### 7 [id number], [id number], [id number] ####[facility] (DEFAULT)[address] [place] [address] Result Comment: Nurse Examiner ruy Kidney disease could be indicated at eGFRs of less than 60 ml/min/1.73m2. Kidney Failure is indicated at less than 15 ml/min/1.73m2 Anion gap 13.0 mmol/L Normal 5.0-19.0 [facility] Comment on above: Performed By: #### 7 045609, [id number], [id number] ####[facility] (DEFAULT)[address] [place] [address] BUN/Creatinine Ratio 18.0 mg/mg High 4.6-16.2 [facility] Comment on above: Performed By: #### 7 350236, [id number], [id number] ####[facility] (DEFAULT)[address] [place] [address] Calcium 9.3 mg/dL Normal 8.9-10.3 [facility] Comment on above: Performed By: #### 7 041976, [id number], [id number] ####[facility] (DEFAULT)[address] [place] [address] Chloride 98 mmol/L Low 101-111 [facility] Comment on above: Performed By: #### 7 760844, [id number], [id number] ####[facility] (DEFAULT)[address] [place] [address] CO2 30 mmol/L Normal 21-32 [facility] Comment on above: Performed By: #### 7 878752, 13332234, [id number] ####[facility] (DEFAULT)[address] [place] [address] Creatinine 0.91 mg/dL Normal 0.90-1.30 [facility] Comment on above: Performed By: #### 7 880186, 08443612, [id number] ####[facility] (DEFAULT)[address] [place] [address]85 Glucose mass conc 84.0 mg/dL Normal 74.0-118.0 [facility] Comment on above: Performed By: #### 7 104133, [id number], [id number] ####[facility] (DEFAULT)[address] [place] [address] Osmolality 274 mOsm/L Invalid Interpretation Code [facility] Comment on above: Performed By: #### 7 821168, [id number], [id number] ####[facility] (DEFAULT)[address] [place] [address] 22982 Potassium molar conc 3.9 mmol/L Normal 3.6-5.1 [facility] Comment on above: Performed By: #### 7 964820, [id number], [id number] ####[facility] (DEFAULT)[address] [place] [address]5830 Sodium 137.0 mmol/L Normal 136.0-144.0 [facility] Comment on above: Performed By: #### 7 662293, 41044884, [id number] ####[facility] (DEFAULT)[address] [place] [address] 57963 Urea nitrogen 16 mg/dL Normal 8-26 [facility] Comment on above: Performed By: #### 7 817463, 45043156, [id number] ####[facility] (DEFAULT)[address] [place] [address] CBC w/ Auto Diffon Erythrocyte distribution width Auto Ratio (RBC) 14.1 % Normal 11.5-15.0 [facility] Comment on above: Performed By: #### 7 024450, [id number], [id number] ####[facility] (DEFAULT)[address] [place] [address] Erythrocytes (RBC) 4.28 x10 Normal 3.70-5.30 [facility] Comment on above: Performed By: #### 7 629228, [id number], [id number] ####[facility] (DEFAULT)[address] [place] [address] Hematocrit (HCT) 40.8 % Normal 34.8-51.9 [facility] Comment on above: Performed By: #### 7 122729, [id number], [id number] ####[facility] (DEFAULT)[address] [place] [address] Hemoglobin mass conc (Bld) 14.2 g/dL Normal 11.8-17.7 [facility] Comment on above: Performed By: #### 7 345284, 36288443, [id number] ####[facility] (DEFAULT)[address] [place] [address] Man Diff? Auto Normal [facility] Comment on above: Result Comment: Auto Performed By: #### 7 060237, [id number], [id number] ####[facility] (DEFAULT)[address] [place] [address] MCH 33 pg Normal 24-34 [facility] Comment on above: Performed By: #### 7 406086, 39668292, [id number] ####[facility] (DEFAULT)[address] [place] [address] MCHC mass conc (RBC) 35 g/dL Normal 26-37 [facility] Comment on above: Performed By: #### 7 146792, [id number], [id number] ####[facility] (DEFAULT)[address] [place] [address] MCV 95 fL Normal 81-100 [facility] Comment on above: Performed By: #### 7 878791, 46347207, [id number] ####[facility] (DEFAULT)[address] [place] [address] Platelet mean volume (PMV) 10.5 fL High 6.3-10.2 [facility] Comment on above: Performed By: #### 7 248562, 45471787, [id number] ####[facility] (DEFAULT)[address] [place] [address] Platelets 247 x10 Normal 138-427 [facility] Comment on above: Performed By: #### 7 563042, [id number], [id number] ####[facility] (DEFAULT)[address] [place] [address] WBC (Leukocytes) 9.2 x10 Normal 3.5-10.5 [facility] Comment on above: Performed By: #### 7 652884, 11138359, [id number] ####[facility] (DEFAULT)[address] [place] [address] MAGR Preoperative Recordon 0 12-01-2016 MAGR Preoperative Record MAGR Pre-Op Record Summary Primary Physician: Jamison Will DO Finalized Date/Time: 12/01/16 13:14:49 Pt. Name: ADEN PATEL/Sex: 1950 MALE Med Rec #: [id number] Physician: Jamison Will DO Financial #: [id number] Pt. Type: D Room/Bed: / Admit/Disch: 10/15/16 [...] and wears a cpap. Finalized By: Alycia Reddy RN Document Signatures Signed By: Alycia Reddy RN 12/01/16 13:14 [facility] Coding Summaryon 10-28-2016 Coding Summary CODING DATE: 017 [facility] STATUS: Home PAYOR: Commercial Insurance ADMIT DX: REASON FOR VISIT DX: M10.9 Gout, unspecified FINAL DX: PRINCIPAL: M10.9 Gout, unspecified SECONDARY: M70.21 Olecranon bursitis, right elbow PROCEDURES DOCTOR NAME DATE Incision and drainage, Jamison Yung And 10/15/2016 arm or elbow area; bursa RT RIGHT SIDE (USED TO IDENTIFY PROCEDURES PERFORMED ON THE RIGHT SIDE OF THE BODY) 59 Distinct Procedural Service 66620 Excision, olecranon bursa Jamison Will And 10/15/2016 [...] Codi Ventura Date Saved: 10/28/2016 12:56 pm [facility] Coding Summaryon 10-25-2016 Coding Summary CODING DATE: 017 [facility] STATUS: Home PAYOR: Commercial Insurance ADMIT DX: REASON FOR VISIT DX: M10.9 Gout, unspecified FINAL DX: PRINCIPAL: M10.9 Gout, unspecified SECONDARY: M70.21 Olecranon bursitis, right elbow PROCEDURES DOCTOR NAME DATE Incision and drainage, Jamison Yung And 10/15/2016 arm or elbow area; bursa RT RIGHT SIDE (USED TO IDENTIFY PROCEDURES PERFORMED ON THE RIGHT SIDE OF THE BODY) 91297 Excision, olecranon bursa Jamison Will And 10/15/2016 [...] Ventura Date Saved: 10/25/2016 09:48 am Normal [facility] .Auto Diff 1on 10-15-2016 Auto Baso % 0.2 % Normal 0.2-2.0 [facility] Comment on above: Performed By: #### 7 907768, 47522367, [id number] ####[facility] (DEFAULT)[address] [place] [address] Auto Summit % 10 % Normal 1-12 [facility] Comment on above: Performed By: #### 7 734729, 22834750, [id number] ####[facility] (DEFAULT)[address] [place] [address]3928 Auto Neut % 77 % Normal 44-88 [facility] Comment on above: Performed By: #### 7 599424, 93521895, [id number] ####[facility] (DEFAULT)[address] [place] [address] 33768 Baso Abs# 0.0 x10 Normal 0.0-0.2 [facility] Comment on above: Performed By: #### 7 082252, 74499125, [id number] ####[facility] (DEFAULT)[address] [place] [address] 57546 Eos Abs# 0.0 x10 Normal 0.0-0.4 [facility] Comment on above: Performed By: #### 7 105838, 70310644, [id number] ####[facility] (DEFAULT)[address] [place] [address] Eosinophils/100 leukocytes 0.3 % Low 0.9-4.0 [facility] Comment on above: Performed By: #### 7 858523, 14774957, [id number] ####[facility] (DEFAULT)[address] [place] [address] Lymphocytes 1.7 x10 Normal 1.3-2.9 [facility] Comment on above: Performed By: #### 7 760136, 99975530, [id number] ####[facility] (DEFAULT)[address] [place] [address] 38660 Lymphocytes/100 leukocytes 13 % Low 14-48 [facility] Comment on above: Performed By: #### 7 039525, 38982232, [id number] ####[facility] (DEFAULT)[address] [place] [address] 87527 Summit Abs# 1.2 x10 High 0.0-0.8 [facility] Comment on above: Performed By: #### 7 988925, 78498326, [id number] ####[facility] (DEFAULT)[address] [place] [address] 62341 Neut Abs# 9.8 x10 High 1.5-9.2 [facility] Comment on above: Performed By: #### 7 042909, 16167490, [id number] ####[facility] (DEFAULT)[address] [place] [address]351 Anesthesia Noteon 10-15-2016 Anesthesia Note Patient: Rosa PATEL : 66 years Sex: MALE : 54Associated Diagnoses: NoneAuthor: Ezra Young MDPostoperative InformationPost Operative Note: Operative Day.Anesthetic utilized: Monitored anesthesia care.Health StatusAllergies:Allergic Reactions (All)No Known Medication AllergiesProblem list (past medical history):All ProblemsSleep apnea / SNOMED CT [id number] / ConfirmedGout / SNOMED CT 663117668 / ConfirmedHypertension / SNOMED CT 4028663992 / ConfirmedResolved: Pulmonary emboli / SNOMED CT [id number] ExaminationVS/MeasurementsVit al Signs (last 24 hrs) Last Charted Heart Rate Peripheral 63 bpm (OCT 15 09:34)Resp Rate 18 br/min (OCT 15 13:05)SBP 138 mmHg (OCT 15 13:05)DBP H 92mmHg (OCT 15 13:05)SpO2 93 % (OCT 15 12:55)Weight 113.10 kg (OCT 15 09:34)Height 185.42 cm (OCT 15:34)Review / ManagementCondition: Stable.AssessmentAnesthetic outcomeNo anesthetic complications noted.PlanTransfer/ Discharge: Patient can be discharged from PACU when criteria met.Condition good.[Electronically Signed on: 10/15/2016 13:12 EDT] Ezra Young MD[Verified on: 10/15/2016 13:12 EDT] Ezra Young MD [facility] Anesthesia Note Patient: Rosa PATEL : [...] capsule 500 mg = 1 cap(s), PO, [id number] 0.1 mg oral tablet 0.1 mg = [...] medical history):All ProblemsSleep apnea / SNOMED CT [id number] / ConfirmedGout / SNOMED CT 004730845 / ConfirmedHypertension / SNOMED CT 8394290183 / ConfirmedResolved: Pulmonary emboli / SNOMED CT 7181326316LqtqtexdpBxapwp History:No family history items have been selected or recorded.Procedure history:Inguinal hernia ([id number]).Comments:10/16/19 17 09:36 - Jasmin Narayanan RNright sideSocial History Alcohol Assessment Comment: 1-2 mixed drink a day Tobacco Assessment Current Every Day Smoker, Cigarettes, 10 per day. Substance Abuse Assessment Substance use: Never..Social & Psychosocial HabitsAlcohol Comment: 1-2 mixed drink a day - 10/15/2016 09:43 - Jasmin Narayanan RNSubstance Abuse10/15/2016 Substance use: LjgmhZufpxlm91/21/2017 Use: Current Every Day Smoker Type: Cigarettes Number used per day: 10.Physical ExaminationVS/MeasurementsVit al Signs (last 24 hrs) Last Charted Heart Rate Peripheral 63 bpm (OCT 15:34)Resp Rate 18 br/min (OCT 15:)SBP 135 mmHg (OCT 15:34)DBP H 91mmHg (OCT 15:)SpO2 99 % (OCT 15:)Weight 113.10 kg (OCT 15:34)Height 185.42 cm (OCT 15:)Airway: Mallampati classification: II (soft palate, fauces, uvula [...] 10/15/2016 12:09 EDT] Ezra Young MD Normal [facility] Standardon 10-15-2016 eGFR (non-black) mL/min/{1.73_m2} Invalid Interpretation Code [facility] Comment on above: Performed By: #### 7 432668, [id number], [id number] ####[facility] (DEFAULT)[address] [place] [address] 02536 Result Comment: Nurse Examiner ruy Kidney disease could be indicated at eGFRs of less than 60 ml/min/1.73m2. Kidney Failure is indicated at less than 15 ml/min/1.73m2 Anion gap 12.0 mmol/L Normal 5.0-19.0 [facility] Comment on above: Performed By: #### 7 292956, 69896257, [id number] ####[facility] (DEFAULT)[address] [place] [address] BUN/Creatinine Ratio 24.0 mg/mg High 4.6-16.2 [facility] Comment on above: Performed By: #### 7 479610, 81196809, [id number] ####[facility] (DEFAULT)[address] [place] [address] Calcium 8.5 mg/dL Low 8.9-10.3 [facility] Comment on above: Performed By: #### 7 735744, 24287713, [id number] ####[facility] (DEFAULT)[address] [place] [address] Chloride 100 mmol/L Low 101-111 [facility] Comment on above: Performed By: #### 7 972930, 05635542, [id number] ####[facility] (DEFAULT)[address] [place] [address] CO2 25 mmol/L Normal 21-32 [facility] Comment on above: Performed By: #### 7 229921, 76002565, [id number] ####[facility] (DEFAULT)[address] [place] [address]75 Creatinine 0.80 mg/dL Low 0.90-1.30 [facility] Comment on above: Performed By: #### 7 548715, 08365972, [id number] ####[facility] (DEFAULT)[address] [place] [address] 46698 Glucose mass conc 150.0 mg/dL High 74.0-118.0 [facility] Comment on above: Performed By: #### 7 259456, 50119513, [id number] ####[facility] (DEFAULT)[address] [place] [address]10 Osmolality 272 mOsm/L Invalid Interpretation Code [facility] Comment on above: Performed By: #### 7 673832, 24040313, [id number] ####[facility] (DEFAULT)[address] [place] [address] 06687 Potassium molar conc 4.4 mmol/L Normal 3.6-5.1 [facility] Comment on above: Performed By: #### 7 252857, 92244677, [id number] ####[facility] (DEFAULT)[address] [place] [address]109 Sodium 133.0 mmol/L Low 136.0-144.0 [facility] Comment on above: Performed By: #### 7 924215, 81645731, [id number] ####[facility] (DEFAULT)[address] [place] [address] 24915 Urea nitrogen 19 mg/dL Normal 8-26 [facility] Comment on above: Performed By: #### 7 390008, 52807219, [id number] ####[facility] (DEFAULT)[address] [place] [address] CBC w/ Auto Diffon 7 Erythrocyte distribution width Auto Ratio (RBC) 13.7 % Normal 11.5-15.0 [facility] Comment on above: Performed By: #### 7 222538, 53399275, [id number] ####[facility] (DEFAULT)[address] [place] [address] Erythrocytes (RBC) 4.36 x10 Normal 3.70-5.30 [facility] Comment on above: Performed By: #### 7 707925, 00450668, [id number] ####[facility] (DEFAULT)[address] [place] [address] Hematocrit (HCT) 41.4 % Normal 34.8-51.9 [facility] Comment on above: Performed By: #### 7 782062, 58898809, [id number] ####[facility] (DEFAULT)[address] [place] [address] Hemoglobin mass conc (Bld) 14.5 g/dL Normal 11.8-17.7 [facility] Comment on above: Performed By: #### 7 387598, 18060692, [id number] ####[facility] (DEFAULT)[address] [place] [address] Man Diff? Auto Normal [facility] Comment on above: Performed By: #### 7 762145, 34014200, [id number] ####[facility] (DEFAULT)[address] [place] [address] MCH 33 pg Normal 24-34 [facility] Comment on above: Performed By: #### 7 124535, 17948147, [id number] ####[facility] (DEFAULT)[address] [place] [address] MCHC mass conc (RBC) 35 g/dL Normal 26-37 [facility] Comment on above: Performed By: #### 7 832668, 79153329, [id number] ####[facility] (DEFAULT)[address] [place] [address] MCV 95 fL Normal 81-100 [facility] Comment on above: Performed By: #### 7 264430, 24157955, [id number] ####[facility] (DEFAULT)[address] [place] [address] Platelet mean volume (PMV) 10.2 fL Normal 6.3-10.2 [facility] Comment on above: Performed By: #### 7 416224, 64875542, [id number] ####[facility] (DEFAULT)[address] [place] [address] Platelets 379 x10 Normal 138-427 [facility] Comment on above: Performed By: #### 7 830315, 47570861, [id number] ####[facility] (DEFAULT)[address] [place] [address] WBC (Leukocytes) 12.8 x10 High 3.5-10.5 [facility] Comment on above: Performed By: #### 7 111559, 90322357, [id number] ####[facility] (DEFAULT)[address] [place] [address] Inpatient Clinical Summaryon 10-15-2016 Inpatient Clinical Summary [facility] SURGERYClinical Discharge SummaryPERSON INFORMATIONName ADEN PATEL Age 66 Years 54Sex MALE Language Namibian PCP Joseph RANGEL [facility] Ac[facility]# Arrival 10/15/16 09:16:44Visit Reason SURGERY - RIGHT ELBOW BURSECTOMY AND I & D Acuity LOS 000 08:19Address:[address] [facility] [address]Enwzkdx:PROVIDER INFORMATIONVITALS INFORMATIONVital Sign Triage LatestTemp OralTemp Temporal 36.8 DegC 36.8 DegCTemp IntravascularTemp AxillaryTemp Yhukvp93 Sat 99 % 92 %Respiratory Rate 18 [...] range between ( 1.3 and 2.9 ) Summit Abs#: 1.2 x103/mcL -- Normal range between ( 0.0 and 0.8 ) Auto Baso %: 0.2 % -- Normal range between ( 0.2 and 2.0 ) Auto Summit %: 10 % -- Normal range between [...] AA: >60 mL/min/1.73m2 eGFR Non AA: >60 mL/min/1.49r5TQLQ & ACTIVITYPatient Activity Level:Patient Diet:RegularPatient Activity Restrictions:DISCHARGE INFORMATIONDischarge Disposition: HomeDischarge Location: HomeDEPART REASON INCOMPLETE INFORMATIONPATIENT EDUCATION INFORMATIONInstructions:Magan eston- Post Op Carpal Tunnel ([facility])Follow up:With: Address: When:Jamison Will [address] [place] [address], [address] [place] [address] Business (2) 10/19/2016 1:15 PMComments:Keep scheduled appointmentDo not touch drressing other than directions givenDIAGNOSISAbscess of bursa, right elbow; Bursitis of right elbow; GoutComment:PHYS DOC NOTES Normal [facility] Inpatient Patient Summaryon 10-15-2016 Inpatient Patient Summary [place] [id number] patient Discharge InstructionsName: ADEN PATEL DDOB: [birth year] Address: [address] [place], [place] [address]ry Care Provider:Name: QUENTIN RANGELPhone: Discharge Diagnosis: Abscess [...] or business decisions or sign any legal documentsMagruder Hospital would like to thank you for allowing us to assist you with your healthcare needs. The following includes patient education materials and information regarding your injury/illness.ADEN PATEL has been given the following list of follow-up instructions, prescriptions, and patient education materials:Follow-up InstructionsWith: Address: When:Jamison Will [address] [place] [address], [address] [place] [address] Business (2) 10/19/2016 1:15 PMComments:Keep scheduled appointmentDo [...] or concerns, please call the office at [phone]-Follow up as scheduled Viruses or BacteriaWhat?s got [...] for Disease Control and Prevention November 2013 [facility] Intra-Op Record Summary Primary Physician: Jamison Will DO Finalized Date/Time: 10/15/16 13:38:08 Pt. Name: ADEN PATEL/Sex: 1950 MALE Med Rec #: [id number] Physician: Jamison Will DO Financial #: [id number] Pt. Type: D Room/Bed: / Admit/Disch: 10/15/16 [...] Role Performed Surgeon - Primary Anesthesiologist of Bar Helper Record Time In 10/15/16 11:52:00 10/15/16 11:52:00 10/15/16 11:52:00 Time Out 10/15/16 12:32:00 10/15/16 12:32:00 10/15/16 12:32:00 Procedure Incision and Incision and Incision and Drainage(Right) Drainage(Right) Drainage(Right) Last Modified By: Karen Dobbs Debra L Barone, Debra L 10/15/16 12:37:37 10/15/16 12:37:37 10/15/16 12:37:37 Entry 4 Entry 5 Case Attendee Filiberto Dang Leigh-Ann CST Regina CST Role Performed Scrub Personnel Seed Analysis Laboratory Assistant Time In 10/15/16 11:52:00 10/15/16 11:52:00 Time Out 10/15/16 12:32:00 10/15/16 12:32:00 Procedure Incision and Incision and Drainage(Right) Drainage(Right) Last Modified By: Karen Dobbs Debra L 10/15/16 12:37:37 10/15/16 12:37:37 General Comments: T [facility] RADIOLOGY STUDENT PARAG/ REP ARTHREX Surgical [...] 10/15/16 11:15:00 Performed By Maria Ines Dang [employer] INSTRUCTOR Counts Verification Final Counts Items Included in Sponges, Sharps Final Count Method Manual Final Count Final Count Status Correct Final Counts Karen Dobbs, Performed By Maria Ines Dang [employer] INSTRUCTOR Final Count Time 10/15/16 12:24:00 Surgeon notified [...] Signatures Signed By: Karen Dobbs 10/15/16 13:38 [facility] MAGR PACU Recordon 7 MAGR PACU Record MAGR PACU Record [facility] Primary Physician: Jamison Will DO Finalized Date/Time: 10/15/16 13:00:52 Pt. Name: ADEN PATEL/Sex: 1950 MALE Med Rec #: [id number] Physician: Jamison Will DO Financial #: [id number] Pt. Type: D Room/Bed: / Admit/Disch: 10/15/16 09:16:44 - Institution: PACU Case Times MAGR Entry 1 In PACU I 10/15/16 12:34:00 Discharge from PACU 10/15/16 13:00:00 I Last Modified By: She Posadas RN 10/15/16 13:00:47 General Comments: See IValejandra for details Finalized By: She Posadas RN Document Signatures Signed By: She Posadas RN 10/15/16 13:00 [facility] Post[facility] Recordon 10-15-2016 MAGR Postoperative Record MAGR Phase II Record Summary Primary Physician: Jamison Will DO Finalized Date/Time: 10/15/16 14:05:56 Pt. Name: ADEN PATEL/Sex: 1950 MALE Med Rec #: [id number] Physician: Jamison Will DO Financial #: [id number] Pt. Type: D Room/Bed: / Admit/Disch: 10/15/16 [...] understanding. Copy of instructions given to pt. 7365 Disch per W/C to private car. Finalized By: Betsy Middleton RN Document Signatures Signed By: Betsy Middleton RN 10/15/16 14:01 Betsy Middleton RN 10/15/16 14:05 Unfinalized History Date/Time Username Reason for Unfinalizing Freetext Reason for Unfinalizing 10/15/16 14:05 OMKAR Correct Documentation Normal [facility] Operative Report - Surgeon/P deuce 10-15-2016 Operative [...] on: 10/15/2016 12:48 EDT] Jamison Will DO [facility] Vital Signs Date Time Vital Sign Value Performing Clinician Facility 04-24-2018 04:24-0500 Body temperature 37.0 degrees C [facility] Comment on above: Result Comment: NOTE: PATIENT RESULTS AR E NOT CORRECTED FOR TEMPERATURE. Performed By: #### A FPA3 ####[id number] [place] [address] 04-23-2018 04:19-0500 Body temperature 37.0 degrees C [facility] Comment on above: Result Comment: NOTE: PATIENT RESULTS AR E NOT CORRECTED FOR TEMPERATURE. Performed By: #### A FPA3 ####[id number] [place] [address] 04-22-2018 10:20-0500 Body temperature 37.0 degrees C [facility] Comment on above: Result Comment: NOTE: PATIENT RESULTS AR E NOT CORRECTED FOR TEMPERATURE. Performed By: #### A FPA3 ####[id number] [place] [address] 04-22-2018 03:42-0500 Body temperature 37.0 degrees C [facility] Comment on above: Result Comment: NOTE: PATIENT RESULTS AR E NOT CORRECTED FOR TEMPERATURE. Performed By: #### A FPA3 ####[id number] [place] [address] 04-21-2018 06:20-0500 Body temperature 37.0 degrees C [facility] Comment on above: Order Comment: critical results read to Cherelle Gonzalez and read back to NORRIS, 04/21/2018 04:27 Result Comment: NOTE : PATIENT RESULTS ARE NOT CORRECTED FOR TEMPERATURE. Performed By: #### A FPA3 ####[id number] [place] [address] 04-19-2018 20:05-0500 Body temperature 37.0 degrees C [facility] Comment on above: Order Comment: CHUYITA PETERS CALLED TO AMINATA RASCON., 04/19/2018 18:38 Result Comment: NOTE : PATIENT RESULTS ARE NOT CORRECTED FOR TEMPERATURE. Performed By: #### A FPA3 ####[id number] [place] [address] 04-19-2018 05:51-0500 Body temperature 37.0 degrees C [facility] Comment on above: Order Comment: CHUYITA MOISE CALLED RB TO Markie PADGETT, 04/19/2018 04:00 Result Comment: NOTE : PATIENT RESULTS ARE NOT CORRECTED FOR TEMPERATURE. Performed By: #### A FPA3 ####[id number] [place] [address] 04-18-2018 03:19-0500 Body temperature 37.0 degrees C [facility] Comment on above: Result Comment: NOTE: PATIENT RESULTS AR E NOT CORRECTED FOR TEMPERATURE. Performed By: #### A FPA3 ####[id number] [place] [address] 04-17-2018 22:44-0500 Body temperature 37.0 degrees C [facility] Comment on above: Result Comment: NOTE: PATIENT RESULTS AR E NOT CORRECTED FOR TEMPERATURE. Performed By: #### A FPA3 ####[id number] [place] [address] 04-17-2018 17:24-0500 Body temperature 37.0 degrees C [facility] Comment on above: Result Comment: NOTE: PATIENT RESULTS AR E NOT CORRECTED FOR TEMPERATURE. Performed By: #### A FPA3 ####[id number] [place] [address] 04-17-2018 12:17-0500 Body temperature 37.0 degrees C [facility] Comment on above: Result Comment: NOTE: PATIENT RESULTS AR E NOT CORRECTED FOR TEMPERATURE. Performed By: #### H EPFP #### [facility] [id number] [place] [address] 04-17-2018 05:54-0500 Body temperature 37.0 degrees C [facility] Comment on above: Result Comment: NOTE: PATIENT RESULTS AR E NOT CORRECTED FOR TEMPERATURE. Performed By: #### C BCDF #### [facility] [id number] [place] [address] 04-17-2018 02:06-0500 Body temperature 37.0 degrees C [facility] Comment on above: Result Comment: NOTE: PATIENT RESULTS AR E NOT CORRECTED FOR TEMPERATURE. Performed By: #### C OAGS #### [facility] [id number] [place] [address] 04-16-2018 23:19-0500 Body temperature 37.0 degrees C [facility] Comment on above: Result Comment: NOTE: PATIENT RESULTS AR E NOT CORRECTED FOR TEMPERATURE. Performed By: #### A FPA3 ####[id number] [place] [address] 04-16-2018 16:23-0500 Body temperature 37.0 degrees C [facility] Comment on above: Result Comment: NOTE: PATIENT RESULTS AR E NOT CORRECTED FOR TEMPERATURE. Performed By: #### A FPA3 ####[id number] [place] [address] 04-16-2018 13:43-0500 Body temperature 37.0 degrees C [facility] Comment on above: Order Comment: CHUYITA TREJO [facility] CALLED R B TO GM JACINTO, 04/16/2018 12:12 Result Comment: NOTE : PATIENT RESULTS ARE NOT CORRECTED FOR TEMPERATURE. Performed By: #### A FPA3 ####[id number] [place] [address] Encounters Encounter Date Encounter Type Care Provider Facility Start: 07-07-2023 End: 07-07-2023 [facility] Start: 06-30-2023 Chart abstracting Patria mata MD Work Phone: [facility] Start: 06-17-2023 End: 06-17-2023 ambulatory AUDREY A RUSHER Not Available Start: 06-10-2023 End: 06-10-2023 ambulatory AUDREY A RUSHER Not Available Start: 06-03-2023 End: 06-03-2023 ambulatory AUDREY A RUSHER Not Available Start: 05-27-2023 End: 05-27-2023 ambulatory AUDREY A RUSHER Not Available Start: 05-26-2023 End: 05-26-2023 ambulatory AUDREY A RUSHER Not Available Start: 05-12-2023 Chart abstracting Audrey hammer DPM Work Phone: [facility] Start: 04-14-2023 End: 04-14-2023 ambulatory [facility] Start: 01-05-2023 End: 01-06-2023 ambulatory Ronald CHOWDARY Facility: [facility] Start: 01-05-2023 End: 01-05-2023 Patient encounter procedure Ronald CHOWDARY General Surgery Nill/Amairani [facility]bar[facility] Start: 12-29-2022 End: 12-30-2022 ambulatory Ronald CHOWDARY Facility:CD:[id number] Start: 12-21-2022 End: 12-22-2022 ambulatory Quentin Rangel Facility:[facility] Start: 12-14-2022 ambulatory Quentin Rangel Facility:[facility] Start: 06-08-2022 ambulatory [facility] Start: 05-20-2022 End: 05-21-2022 ambulatory [facility] Start: 05-04-2022 End: 05-05-[address] ANNE-MARIE BAKER Facility:[facility] Start: 05-03-2022 End: 05-03-2022 ambulatory [facility] Start: 04-19-2022 End: 04-20-[address] ANNE-MARIE BAKER Facility:[facility] Start: 09-16-[address] ANNE-MARIE BAKER Fac ility:[facility] Start: 05-26-2021 End: 05-27-[address] ANNE-MARIE BAKER Facility:[facility] Start: 06-01-2019 Preprocedural examin ation done Patria Cole MD Work Phone: [facility] Start: 12-11-2018 End: 12-12-2018 Patient encounter procedure GABRIELLE QUEZADA Facility:[facility] Start: 12-24-2016 End: 12-24-2016 Ambulatory [facility] Facility:[facility] Start: 12-22-2016 End: 12-22-2016 Ambulatory [facility] Facility:[facility] Start: 10-15-2016 End: 12-30-2016 Ambulatory [facility] Facility:[facility] Procedures Date Procedure Procedure Detail Performing Clinician Start: 04-24-2018 Antibody screen Comment on above: Performed By: #### T +S ####[id number] [facility] [place] [address] Start: 04-20-2018 Antibody screen Comment on above: Performed By: #### T +S ####[id number] [id number] Start: 04-17-2018 Antibody screen Comment on above: Performed By: #### C OAGS #### [facility] [address] 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 Incision and drainag e of infected bursa of elbow area Ronald NILL Repair of joint of l eft hip Ronald NILL Repair of joint of r ight hip Ronald NILL Small intestine excision Kaz hael NILL Plan of Treatment Date Care Activity Detail Author Start: 11-27-2023 Influenza vaccination Influenza Vaccine [facility] Start: 07-07-2023 End: 07-07-2023 Patient encounter procedure 07/07/2023 1:50 PM EDT Office Visit [facility] [address] Patria Cole MD [address], [address] [address] [facility] Start: 05-12-2023 End: 05-12-2023 Patient encounter procedure 05/12/2023 1:45 PM EST Office Visit [facility] [address] [place] [phone] Audrey Ramirez DPM [address] [place] [address] [facility] Start: 04-10-2018 Fall Risk Screening Fall Risk Screening [facility] Start: 2002 Administration of varicella zoster vaccine Zoster (Shingles) Vaccine (1 of 2) [facility] Start: 07-06-1971 DTaP,Tdap and Td Vaccines (1 - Tdap) DTaP,Tdap and Td Vaccines (1 - Tdap) [facility] Start: 1970 Adult BMI Screening Adult BMI Screening [facility] Start: 1964 Depression Screening Depression Screening [facility] Start: 1964 Tobacco Screening Tobacco Screening [facility] Start: 1952 Medicare Annual Wellness Visit Medicare Annual Wellness Visit [facility] Payers Date Payer Category Payer Unknown [employer] [id number] 2018-Present [phone] [address] [place] [address] [id number] 2017 Medicare MEDICARE MEDICAR E PART A & B [id number] 2017-Present [phone] [address] [place] [address] [id number] 2016 Private Health Insurance [id number] 2016 Private Health Insurance [id number] 1959 Medicare [id number] 1959 Self-pay [id number] 1959 Unknown [id number] 1952 Unknown [id number] [id number]. 647 1952 Unknown [id number] 2.16.840.1.909564.3.579.2. 593 1952 Unknown [id number] 2.16.840.1.220199.3.579.2. 593 1952 Unknown [id number] 2.16.840.1.086584.3.579.2. 593 1952 Unknown [id number] 2.16.840.1.968606.3.579.2. 593 1952 Unknown [id number] 2.16.840.1.811166.3.579.2. 727 1952 Unknown [id number] 2.16.840.1.518716.3.579.2. 727 1952 Unknown [id number] 2.16.840.1.390295.3.579.2. 727 1952 Unknown [id number] 2.16.840.1.412161.3.579.2. 1259 1952 Unknown [id number] 2.16.840.1.365034.3.579.2. 1259 1952 Unknown [id number] 2.16.840.1.158414.3.579.2. 1259 1952 Unknown [id number] 2.16.840.1.531638.3.579.2. 1259 1952 Unknown [id number] 2.16.840.1.728400.3.579.2. 1259 1952 Unknown [id number] 2.16.840.1.345918.3.579.2. 1286 Social History Date Type Detail Facility Start: 12-21-2022 Tobacco smoking status Light t obacco smoker (finding) [facility] [place] Tobacco smoking status Never [facility] Start: 01-11-2020 End: 05-08-2020 Sex Assigned At Male [facility] Start: 03-28-1972 [facility] Start: 03-28-1966 End: 03-28-2019 History of tobacco use Cigarette Smoker [facility] Start: 05-12-2023 End: 06-30-2023 Alcohol intake Current drinker of alcohol (finding) [facility] Start: 05-12-2023 Alcohol Comment Caffeine : no [facility] Start: 1950 Sex Assigned At Not on file [facility] Start: 01-01-2020 Tobacco smoking stat [facility] Start: 03-28-1966 End: 03-28-2019 History of tobacco use [facility] smoker [facility] Start: 01-01-2020 End: 05-08-2020 Cigarettes smoked current (pack per day) - Reported 1 [employer] Start: 01-01-2020 Tobacco use and exposure Smoke less tobacco non-user [facility] Do you belong to any clubs or organizations such as christianity groups, unions, fraLentigen or athletic groups, or school groups? No [facility] Are you now , , , , never or living with a partner? [facility] Do you feel stress - tense, restless, nervous, or anxious, or unable to sleep at night because your mind is troubled all the time - these days [OSQ] Not at all [facility] Start: 05-31-2019 Tobacco Comment Cutting himself down [facility] Start: 10-30-2019 Alcohol Comment states weekend only-1/2 gallon liquer in 3 week period [facility] [employer] [facility] Medical Equipment Procedure Code Equipment Code Equipment Origin al Text Equipment Identifier Dates Brng Hip 50mm Ac t Artc E1 28mm Rpl [id number] - [id number] Start: 02-12-2019 Brng Hip 54mm Ac t Artc E1 28mm - [id number] Start: 01-11-2020 Slv Fem Opt -3mm Tpr Hip Blx D Rpl [id number] - [id number] Start: 02-12-2019 Hd Fem 28mm -3mm Blx D Hip - [id number] Start: 01-11-2020 Hd Fem 28mm Shl Actb G7 Biolox Rpl [id number] - [id number] Start: 02-12-2019 Scr Bn Cecil 20mm 6.5mm Hip St Rpl [id number] + [id number] + [id number] - [id number] Start: 02-12-2019 Sc[address] Hip [address] 25mm 6.5mm - [id number] Start: 01-11-2020 Goals Date Patient Goal Desired Activity /State Personal health goal Comment on above: Formatting of this n ote might be different from the original. Evaluation of progress towards goal: Maximize work with PT at discharge to strengthen L hip Progress note 04-14-2023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
== END 2023-07-13 09:21 | disposition home or self-care (01) ==
LOC: VC 12:25
PROVIDERS: PCP Family Medicine; Visit Provider Student in an Organized Health Care Education/Training Program
DX: Z01.818 Encounter for other preprocedural examination (principal); I72.4 Aneurysm of artery of lower extremity; I71.43 Infrarenal abdominal aortic aneurysm, without rupture
CPT/HCPCS: 93970

== ENCOUNTER 2023-07-14 13:41 | Outpatient (OUT) | payer MEDICARE, OTHER, SELFPAY ==
--- NOTE | 2023-07-14 13:45 | CT_ITS ---
[address] [address] Patient Name: HEAVEN PATEL MRN: [id number] date: 1950 Sex: M Assigned Patient Location: CT Current Patient Location: CT Accession/Order Number: [id number] Exam Date: 07/14/2023 13:50 Report Date: 07/14/2023 17:11 At the request of: BART CONWAY Procedure: CT angio abd aorta runoff EXAMINATION: CT angio abd aorta runoff HISTORY: Aneurysm I72.9 ; right popliteal artery aneurysm COMPARISON: Ultrasound extremity venous reflux bilateral 06/29/2023 TECHNIQUE: After obtaining the patient's consent, CT images of the abdomen, pelvis, and lower extremities were obtained without and with non-ionic intravenous contrast material. Multi-planar reformatted/3-D images were created to optimize visualization of vascular anatomy. Dose reduction techniques were achieved by using automated exposure control and/or adjustment of mA and/or kV according to patient size and/or use of iterative reconstruction technique. FINDINGS: AORTA: Leftward projecting saccular aneurysm from distal abdominal aorta, 3.8 cm in overall diameter. 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 RIGHT LEG: Fusiform aneurysmal dilation of popliteal artery 4.8 cm in diameter by 5.5 cm in length. LEFT LEG: No significant stenosis or occlusion. LUNG BASES: No visible pulmonary or pleural disease. LIVER: Benign-appearing cyst medial anterior right hepatic lobe. No enlargement, atrophy, abnormal density, or significant focal lesion. BILIARY: No visible dilatation or calcification. PANCREAS: No lesion, fluid collection, ductal dilatation, or atrophy. SPLEEN: No enlargement or focal lesion. ADRENALS: No mass or enlargement. KIDNEYS: No mass, obstruction, or calcification. BOWEL/MESENTERY: Colonic diverticulosis. No visible mass, obstruction, or bowel wall thickening. RETROPERITONEUM: No mass or adenopathy. PELVIC NODES: No adenopathy. URINARY BLADDER: Mostly obscured by metallic streak artifact from bilateral hip replacements. No visible focal wall thickening, lesion, or calculus. PELVIC ORGANS: No visible mass. Pelvic organs appropriate for patient age. ABDOMINAL WALL: Large anterior abdominal wall pannus containing majority of bowel. BONES: Bilateral hip replacements. Old, partially healed fractures of distal right tibia and fibula diaphysis. OTHER: CT/CT angio abd aorta runoff IMPRESSION: 1. Small saccular aneurysm of distal abdominal aorta 3.8 cm in diameter. 2. 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 3. Right popliteal artery fusiform aneurysm 4.8 cm in diameter by 5.5 cm in length. 4. Additional incidental chronic changes detailed above.. Electronically authenticated by: AUDREY BRIDGES Date: 07/14/2023 17:11
== END 2023-07-14 13:42 | disposition home or self-care (01) ==
LOC: CT 13:41
PROVIDERS: PCP Family Medicine; Visit Provider Student in an Organized Health Care Education/Training Program
DX: I72.9 Aneurysm of unspecified site (principal); I72.4 Aneurysm of artery of lower extremity; I71.43 Infrarenal abdominal aortic aneurysm, without rupture
CPT/HCPCS: 75635; Q9967

== ENCOUNTER 2023-08-03 13:31 | Outpatient (OUT) | payer MEDICARE, OTHER, SELFPAY ==
--- NOTE | 2023-08-03 14:30 | CA_ITS ---
Patient Name: HEAVEN PATEL MR#: [id number] : 1950 Exam Date: 08/03/2023 Ordering Doctor: DR ANNE-MARIE BAKER M.D. ECHOCARDIOGRAM REPORT PROCEDURE: CA ECHO DOPPLER COMPLETE INDICATIONS: Aortic aneurysm, hypertension, diabetes, smoker COMPARISON: None. DESCRIPTION: COMPLETE ECHOCARDIOGRAM Real-time transthoracic echocardiography with 2D, M-mode, spectral and color flow Doppler performed. QUALITY: Technical quality was adequate. 72 , 235#, BSA 2.28 m2, BP 128/74 LEFT VENTRICLE: Normal chamber size. Mild concentric left ventricular hypertrophy. Normal systolic function. LV EF: Normal left ventricular ejection fraction, (55%). DIASTOLIC: Normal diastolic function. ATRIAL SEPTUM: Visually appears intact. LEFT ATRIUM: Normal chamber size. RIGHT ATRIUM: Mild dilatation. RIGHT VENTRICLE: Mild dilatation. Normal right ventricular systolic function. TRICUSPID VALVE: Normal mobility and thickness. No stenosis with no regurgitation. MITRAL VALVE: Normal mobility and thickness. No evidence of mitral valve stenosis. Mild mitral annular calcification. Trivial mitral regurgitation. AORTIC VALVE: Normal trileaflet appearance. Thickened aortic valve. Normal leaflet mobility. No evidence of aortic valve stenosis. No aortic regurgitation. AORTIC ROOT: Aortic root (5.2 cm) and ascending aorta (4.6 cm) are moderately dilated. PULMONIC VALVE: Not well visualized. No stenosis. No regurgitation. PERICARDIUM: No evidence of pericardial effusion. IVC: PLEURA: CONCLUSION: 1. Mild concentric left ventricular hypertrophy with normal systolic function. LVEF is 55%. 2. Normal right ventricular size and systolic function. 3. Normal diastolic function. 4. No significant valvular dysfunction. 5. Moderately dilated aortic root (5.2 cm) and ascending aorta (4.6 cm). Adult Echocardiography Procedure Report Left Ventricle LVEDD (3.7 - 5.6 cm): 5.11 cm LVESD (2.2 - 4.0 cm): 4.05 cm LVIVS thickness (0.6 - 1.2 cm): 1.20 cm LVPW thickness (0.5 - 1.0 cm): 1.25 cm e': 0.10 m/s E - e': 6.34 LVOT Max Gradient: 1.53 mm[Hg] LVOT Area (cm2): 0.62 m/s Peak Velocity (LVOT): 0.62 m/s Mean Velocity (LVOT): 0.44 m/s LVOT Diameter 2.28 cm Left Atrium LA Volume Index (2D A2C): 23.98 ml/m2 Left Atrium Systolic Dimension: 3.30 cm Mitral Valve MV E to A Ratio: 1.04 Mitral Valve A-Wave Peak Velocity: 0.62 m/s Mitral Valve E-Wave Peak Velocity: 0.65 m/s Right Ventricle Aorta AO Root Diam: 4.93 cm Ascending Ao Diam: 4.64 cm Aortic Valve AoV Area (Peak Pramod): 3.62 cm2, 3.62 cm2 AoV Area (VTI): 3.57 cm2, 3.57 cm2 Peak Velocity(Antegrade Flow): 0.69 m/s Peak Gradient(Antegrade Flow): 1.93 mm[Hg] Mean Velocity(Antegrade Flow): 0.49 m/s Mean Gradient(Antegrade Flow): 1.10 mm[Hg] Velocity Time Integral: 18.21 cm Tricuspid Valve Pulmonic Valve Peak Gradient: 1.98 mm[Hg], 2.06 mm[Hg] Right Atrium Dictated by: Anne-Marie Baker M.D. on 08/04/2023 at 17:30 Approved by: Anne-Marie Baker M.D. on 08/04/2023 at 17:43
== END 2023-08-03 13:32 | disposition home or self-care (01) ==
LOC: CARD 13:32
PROVIDERS: PCP Family Medicine; Visit Provider Internal Medicine Interventional Cardiology
DX: I71.21 Aneurysm of the ascending aorta, without rupture (principal)
CPT/HCPCS: 93306

== ENCOUNTER 2023-09-27 12:58 | Outpatient (OUT) | payer MEDICARE, OTHER, SELFPAY ==
--- NOTE | 2023-09-27 | VEIN_ITS ---
The [address] [address] Patient Name: HEAVEN PATEL MRN: [id number] date: 1950 Sex: M Assigned Patient Location: Current Patient Location: Accession/Order Number: [id number] Exam Date: 09/27/2023 13:00 Report Date: 10/04/2023 14:26 At the request of: BART CONWAY Procedure: VC Arterial Scan RT EXAM: VC Arterial Scan RT HISTORY: ANEURYSM OF RIGHT POPLITEAL ARTERY COMPARISON: 07/14/2023. TECHNIQUE: Grayscale, color and Doppler FINDINGS: Normal triphasic waveform identified in the deep femoral and throughout the proximal mid and distal femoral artery. Monophasic waveform identified throughout the graft and in the runoff arteries including the anterior tibial, posterior tibial and peroneal arteries Femoral popliteal bypass graft is identified. The composition of the graft is unknown. Inflow: Normal color flow, Doppler waveform not performed Proximal anastomosis: PSV/EDV 71/49 cm/s Proximal graft: PSV/EDV 29/9 cm/s Mid graft: PSV/EDV 33/8 cm/s Distal graft: PSV/EDV: 29/0 cm/s Distal anastomosis: PSV/EDV 17/10 cm/s Identified in the popliteal fossa is a complex fluid collection measuring 6.9 x 4.5 cm. No definite internal color flow. VEIN/VC Arterial Scan RT IMPRESSION: 6.9 x 4.5 cm popliteal fossa mass likely representing a popliteal artery aneurysm. No definite color flow is observed Patent femoral popliteal bypass graft, decreased flow velocities and monophasic waveform suggesting flow significant stenosis Electronically authenticated by: NOLVIA CANTU Date: 10/04/2023 14:26
--- NOTE | 2023-09-27 13:00 | VEIN_ITS ---
[facility] [address] Patient Name: HEAVEN PATEL MRN: [id number] date: 1950 Sex: M Assigned Patient Location: Current Patient Location: Accession/Order Number: [id number] Exam Date: 09/27/2023 13:00 Report Date: 10/03/2023 06:24 At the request of: BART CONWAY Procedure: VC SEGMENTAL PRESSURES EXAM: VC SEGMENTAL PRESSURES HISTORY: Aneurysm of right popliteal arery I72.4 COMPARISON: None. FINDINGS: Segmental pressures presented as follows (right, left) in mmHg. Brachial: 127, 130 Upper thigh: N/A, 139 Lower thigh: N/A, 144 Calf: N/A, 147 DPA: 133, 133 [employer]ATE [employer]: 114, 129 1st Toe: 70, 87 YOBANY: 1.02, 1.02 TBI: 0.54, 0.67 The ABIs are Normal The TBI's are moderate right and mild left ischemia PVR waveforms: Right leg: Thigh: Not obtained due to bypass Above knee: Not obtained due to bypass Below knee: Not obtained due to bypass Right ankle: Moderate ischemic waveform Metatarsal: Moderate ischemic waveform Left leg: Thigh: Normal Above knee: Normal Below knee: Normal Right ankle: Mild ischemic waveform Metatarsal: Moderate ischemic waveform VEIN/VC SEGMENTAL PRESSURES IMPRESSION: TBIs suggest moderate right and mild left distal ischemia Moderate right and mild left ischemic waveform ankle and metatarsals Electronically authenticated by: NOLVIA CANTU Date: 10/03/2023 06:24
== END 2023-09-27 12:59 | disposition home or self-care (01) ==
LOC: VC 12:58
PROVIDERS: PCP Family Medicine; Visit Provider Student in an Organized Health Care Education/Training Program
DX: I72.4 Aneurysm of artery of lower extremity (principal)
CPT/HCPCS: 93923; 93926

== ENCOUNTER 2024-04-09 10:35 | Outpatient (OUT) | payer MEDICARE, OTHER, SELFPAY ==
--- NOTE | 2024-04-09 10:37 | VEIN_ITS ---
[address] [address] Patient Name: HEAVEN PATEL MRN: [id number] date: 1950 Sex: M Assigned Patient Location: Current Patient Location: Accession/Order Number: [id number] Exam Date: 04/09/2024 10:37 Report Date: 04/09/2024 13:26 At the request of: BART CONWAY Procedure: VC Arterial Scan RT EXAM: VC Arterial Scan RT HISTORY: I72.4 COMPARISON: None. TECHNIQUE: Grayscale, color and Doppler FINDINGS: A patent distal SFA/popliteal graft is observed. Normal color and Doppler flow. Triphasic waveform identified proximally, within the graft and distally VEIN/VC Arterial Scan RT IMPRESSION: Patent SFA/popliteal graft with normal waveform Electronically authenticated by: NOLVIA CANTU Date: 04/09/2024 13:26
--- OUTSIDE RECORDS SUMMARY | 2024-04-09 10:51 | XMS_ITS | CCD ---
Author Organization [facility] Care Team Providers Care Er Rn Name Role Phone Jaimson Will Unavailable Unavail able Jamison Will Unavailable Unavail able HOY, QUENTIN Unavailable Unavailable Ezra Young Unavailable Unavailable Nicolette, Jamison Merino Unavailable Unavail able Nicolette, Jamison Merino Unavailable Unavail able HOY, QUENTIN Unavailable Unavailable GortyFeliciano S Unavailable Unavailable Nicolette, Jamison Merino Unavailable [...] JUAN CARLOS, DR SAAVEDRA Primary Care Unavailable TUCSON, DR NOLVIA Devlin Consulting Unavailable MOUKARBEL, DR XIE Consulting Unavailable MOUKARBEL, DR XIE Admitting Unavailable MOUKARBEL, DR XIE Attending Unavailable JUAN CARLOS, DR SAAVEDRA Primary Care Unavailable Quentin Ragnel Primary Care Physician Quentin Rangel Referring Unavailable Ronald CHOWDARY Attending Unavailable Ronald CHOWDARY Attending Unavailable Ronald CHOWDARY Attending Unavailable Unavailable Primary Care Provider Quentin Shaikh MD Primary Care Provider [phone] ANNE-MARIE BAKER Attending Unavailable PATRIA COLE Attending Unavailable MAN, MOHAMED F Referring Unavailable HOY, QUENTIN M Primary Care Unavailable MAN, MOHAMED F Referring Unavailable HOY, QUENTIN M Primary Care Unavailable MAN, MOHAMED F Admitting Unavailable MAN, MOHAMED F Attending Unavailable HOY, QUENTIN M Primary Care Unavailable SHAYY SOTO G Attending Unavailable HOY, QUENTIN M Primary Care Unavailable MAN, MOHAMED F Attending Unavailable HOY, QUENTIN M Referring Unavailable HOY, QUENTIN M Primary Care Unavailable HOY, QUENTIN M Referring Unavailable HOY, QUENTIN M Primary Care Unavailable HOY, QUENTIN M Referring Unavailable HOY, QUENTIN M Primary Care Unavailable HOY, QUENTIN M Referring Unavailable HOY, QUENTIN M Primary Care Unavailable MAN, MOHAMED F Attending Unavailable HOY, QUENTIN M Referring Unavailable HOY, QUENTIN M Primary Care Unavailable MAN, MOHAMED F Attending Unavailable HOY, QUENTIN M Referring Unavailable HOY, QUENTIN M Primary Care Unavailable MAN, MOHAMED F Attending Unavailable HOY, QUENTIN M Referring Unavailable HOY, QUENTIN M Primary Care Unavailable Quentin Rangel MD Primary Care Provider [phone] AUDREY RAMIREZ Attending Unavailable RUSHER, AUDREY A Attending Unavailable RUSHER, AUDREY A Attending Unavailable RUSHER, AUDREY A Attending Unavailable RUSHER, AUDREY A Attending Unavailable RUSHER, AUDREY A Attending Unavailable RUSHER, AUDREY A Attending Unavailable Quentin Rangel MD Primary Care Provider [phone] Allergies Allergy Classification Reported Allergen(s) Allergy Type Date of Onset Reaction(s) Facility (2 sources) No Known Medication Allergies; Translations: [No Known Medication Allergies] Propensity to adverse reactions to drug (disorder) [facility] Repository (7 sources) Morphine; Translations: [MORPHINE] Drug Allergy 9 Other (See Comments), Abnormal Behavior, Hallucinations, Unknown [facility] (3 sources) Ciprofloxacin; Translations: [CIPROFLOXACIN HCL] Drug Allergy 4 [facility] Medications Current Medications Medication Drug Class(es) Dates Sig (Normalized) Sig (Original) allopurinol 300 mg oral tablet (5 sources) Xanthine Oxidase Inhibitor Start: 09-13-2017 take 1 tablet by mouth in the morning allopurinol (ZYLOPRIM) 300 mg tablet Indications: prevention of acute gout attack Take 1 tablet (300 mg total) by mouth in the morning. Indications: treatment to prevent acute gout attack. 5 09/13/2017 Active aspirin 81 mg delayed release oral tablet (3 sources) Platelet Aggregation Inhibitor, Nonsteroidal Anti-inflammatory Drug take 1 tablet by mouth once daily aspirin 81 mg Indications: myocardial infarction prevention Take 1 tablet (81 mg total) by mouth nightly Indications: treatment to prevent a heart attack. Active ASPIRIN 81 MG ch ewable tablet Chew Daily Active atorvastatin 40 mg oral tablet (5 sources) HMG-CoA Reductase Inhibitor Start: 12-11-2018 take 1 tablet by mouth in the morning atorvastatin (LIPITOR) 40 mg tablet Indications: mixed hyperlipidemia Take 1 tablet (40 mg total) by mouth in the morning. Indications: high cholesterol and high triglycerides. 3 12/11/2018 Active 24 hr buPROPion hydrochloride 150 mg extended [...] 0 Active carvedilol 25 mg oral tablet (5 sources) alpha-Adrenergic Jeannette, beta-Adrenergic Jeannette Start: 12-17-2022 [...] mouth in the morning. 0 Active cholecalciferol 0.05 mg oral capsule (3 sources) Vitamin D Cholecalciferol (Vitamin D) 50 MCG (1999 UT) capsule Take by mouth Active take 1 tablet by mouth in the mo rning cholecalciferol, vitamin D3, 5,000 units tablet Take 1 tablet (5,000 Units total) by mouth in the morning. 0 Active colchicine 0.6 mg oral tablet (5 sources) Start: 12-17-2022 take 1 tablet by mouth once daily colchicine 0.6 mg Tab 0.6 mg = 1 tab(s), Oral, Daily, Refills(s) 0 Start Date: 12/17/22 Status: Ordered Start: 06-14-2017 take 2 tablets by [facility] once daily colchicine (COLCRYS) 0.6 mg tablet Indications: acute gouty arthritis Take 2 tablets (1.2 mg total) by mouth nightly Indications: acute inflammation of the joints due to gout attack. 11 06/14/2017 Active Colchicine 0.6 M G capsule Take by mouth Active DAILY VITES/IRON tablet (2 sources) Start: 08-30-2017 take 1 tablet by mouth once daily in the morning DAILY VITES/IRON tablet Take 1 tablet by mouth in the morning. 0 08/30/2017 Active empagliflozin 10 mg oral tablet (5 sources) Sodium-Glucose Cotransporter 2 Inhibitor Start: 12-17-2022 [...] 0 Active furosemide 40 mg oral tablet (6 sources) Loop Diuretic Start: 12-17-2022 take 1 tablet by mouth once daily Lasix 40 mg Tab 40 mg = 1 tab(s), Oral, Daily, Refills(s) 0 Start Date: 12/17/22 Status: Ordered take 1 tablet by mouth once rip y furosemide (LASIX) 20 mg tablet Take 1 tablet (20 mg total) by mouth daily. 0 Active hydrALAZINE hydrochloride 100 mg oral tablet (5 sources) Arteriolar Vasodilator Start: 12-17-2022 take 1 tablet by mouth twice daily hydrALAZINE 100 mg oral tablet 100 mg = 1 tab(s), Oral, BID, Refills(s) 0 Start Date: 12/17/22 Status: Ordered hydrALAZINE (Apr esoline) 100 MG tablet Take 25 mg by mouth every 8 (eight) hours Active 24 hr isosorbide mononitrate 120 mg extended release oral tablet (5 sources) Nitrate Vasodilator Start: 12-11-2018 isosorbide mononitrate (IMDUR) 120 mg 24 hr tablet Indications: prevention of anginal pain in coronary artery disease Take 800 mg by mouth daily Indications: prevention of anginal chest pain associated with coronary artery disease. 3 12/11/2018 Active Start: 12-11-2018 take 1 tablet by renetta th once daily in the morning isosorbide mononitrate [...] Refill(s) 0 Start Date: 12/17/22 Status: Ordered 24 hr nicotine 0.292 mg/hr transdermal system (1 source) Cholinergic Nicotinic Agonist Start: 08-28-2023 nicotine (NICODERM CQ) 7 mg/[address] 1 patch on the skin daily. 14 patch 08/28/2023 Active oxyCODONE hydrochloride 5 mg oral tablet (1 source) Opioid Agonist Start: 08-28-2023 take 1 tablet by mouth every six hours as needed for pain oxyCODONE (ROXICODONE) 5 mg immediate release tablet Indications: Aneurysm of right popliteal artery (CMS-HCC) Take 1 tablet (5 mg total) by mouth every 6 (six) hours as needed for pain for up to 8 doses. Max Daily Amount: 20 mg 8 tablet 08/28/2023 Active pantoprazole 40 mg delayed release oral tablet (3 sources) Proton Pump Inhibitor Start: 11-29-2017 take 1 tablet by mouth once daily before breakfast pantoprazole (PROTONIX) 40 mg EC tablet Indications: gastroesophageal reflux disease Take 1 tablet (40 mg total) by mouth every morning before breakfast Indications: gastroesophageal reflux disease. 11/29/2017 Active rivaroxaban 10 mg oral tablet (2 sources) Factor Xa Inhibitor Start: 01-13-2020 take 1 tablet by mouth once daily rivaroxaban (XARELTO) 10 mg tablet Take 1 tablet (10 mg total) by mouth daily. 30 tablet 01/13/2020 Active spironolactone 25 mg oral tablet (3 sources) Aldosterone Antagonist Start: 12-17-2022 take 1 tablet by mouth once daily spironolactone 25 mg Tab 25 mg = 1 tab(s), Oral, Daily, Refills(s) 0 Start Date: 12/17/22 Status: Ordered Problems Active Problems Problem Classification Problem Date Documented Date Episodic/Chronic Anxiety disorders (3 sources) Mixed anxiety and depressive disorder; Translations: [Anxiety disorder, unspecified] Onset: 02-12-2019 12-17-2022 Chronic Aortic; peripheral; and visceral artery aneurysms (12 sources) Thoracic aortic ectasia; Translations: [Aneurysm of ascending aorta] Onset: 05-04-2022 Chronic Cardiac dysrhythmias (3 sources) Paroxysmal atrial fibrillation; Translations: [Paroxysmal atrial fibrillation] Onset: 02-12-2019 12-17-2022 Chronic Congestive heart failure; nonhypertensive (10 sources) Chronic systolic (congestive) heart failure; Translations: [Congestive heart failure] Onset: 02-12-2019 Chronic Coronary atherosclerosis and other heart disease (2 sources) Atherosclerotic heart disease of [place] coronary artery without angina pectoris; Translations: [Atherosclerotic heart disease of [place] coronary artery without angina pectoris] Onset: 04-14-2023 Chronic Deficiency and other anemia (3 sources) Anemia of chronic disease; Translations: [Anemia in other chronic diseases classified elsewhere] Onset: 02-12-2019 12-17-2022 Chronic Diabetes mellitus with complications (3 sources) Diabetes mellitus due to underlying condition with hyperosmolarity without nonketotic hyperglycemic-hyperos molar coma (NKHHC); Translations: [Peripheral vascular disorder due to diabetes mellitus] Onset: 08-15-2023 02-21-2024 Chronic Disorders of lipid metabolism (3 sources) Mixed hyperlipidemia; Translations: [Mixed hyperlipidemia] Onset: 02-12-2019 12-17-2022 Chronic Diverticulosis and diverticulitis (1 source) Diverticular disease 12-17-2022 Chronic Essential hypertension (5 sources) Essential hypertension; Translations: [Essential (primary) hypertension] Onset: 02-12-2019 12-17-2022 Chronic Gout and other crystal arthropathies (1 source) Gout 12-17-2022 Chronic Hyperplasia of prostate (3 sources) Benign prostatic hyperplasia; Translations: [Nocturia due to benign prostatic hypertrophy] Onset: 02-12-2019 12-17-2022 Chronic Hypertension with complications and secondary hypertension (3 sources) Cardiomyopathy due to hypertension; Translations: [Hypertensive heart disease with heart failure] Onset: 02-12-2019 12-17-2022 Chronic Mycoses (1 source) Onychomycosis due to dermatophyte ; Translations: [Tinea unguium] 02-21-2024 Episodic Neoplasms of unspecified nature or uncertain behavior (2 sources) Neoplasm of skin of cheek; Translations: [Neoplasm of uncertain behavior of skin of face] 01-05-2023 Episodic Osteoarthritis (2 sources) Osteoarthritis of left hip joint; Translations: [Unilateral primary osteoarthritis, left hip] Onset: 02-11-2019 02-12-2019 Chronic Other aftercare (1 source) Encounter for therapeutic drug level monitoring; Translations: [Encounter for therapeutic drug level monitoring] Onset: 08-15-2023 Episodic Other and ill-defined heart disease (2 sources) Diastolic dysfunction; Translations: [Other ill-defined heart diseases] Onset: 02-12-2019 02-12-2019 Chronic Other bone disease and musculoskeletal deformities (3 sources) Avascular necrosis of bone of hip; 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] Onset: 06-01-2019 12-17-2022 Chronic Other circulatory disease (1 source) Other specified symptoms and signs involving the circulatory and respiratory systems; Translations: [Other specified symptoms and signs involving the circulatory and respiratory systems] Onset: 07-17-2023 Episodic Other connective tissue disease (2 sources) History of total replacement of left hip joint; Translations: [Presence of left artificial hip joint] Onset: 06-01-2019 06-01-2019 Chronic Other connective tissue disease (1 source) Other specified soft tissue disorders; Translations: [Other specified soft tissue disorders] Onset: 07-17-2023 Episodic Other non-epithelial cancer of skin (2 sources) Carcinoma in situ of skin of face; Translations: [Carcinoma in situ of skin of other parts of face] Onset: 01-05-2023 Episodic Other nutritional; endocrine; and metabolic disorders (1 source) Body mass index 30+ - obesity 12-21-2022 Chronic Other nutritional; endocrine; and metabolic disorders (1 source) Obesity 12-17-2022 Chronic Other nutritional; endocrine; and metabolic disorders (2 sources) Severe obesity; Translations: [Morbid (severe) obesity due to excess calories] Onset: 10-30-2019 10-30-2019 Chronic Other skin disorders (1 source) Actinic keratosis; Translations: [Actinic keratosis] Onset: 01-05-2023 Episodic Other skin disorders (1 source) Dystrophia unguium; Translations: [Nail dystrophy] 02-21-2024 Episodic Residual codes; unclassified (3 sources) Obstructive sleep apnea syndrome; Translations: [Obstructive sleep apnea (adult) (pediatric)] Onset: 02-12-2019 12-17-2022 Chronic Residual codes; unclassified (1 source) Pain, unspecified; Translations: [Pain, unspecified] Onset: 07-17-2023 Episodic Spondylosis; intervertebral disc disorders; other back problems (1 source) Lumbar radiculopathy 12-17-2022 Episodic Substance-related disorders (3 sources) Nicotine dependence; Translations: [Nicotine dependence, cigarettes, uncomplicated] Onset: 02-12-2019 12-17-2022 Chronic Unclassified (1 source) Aneurysm of the ascending aorta, without rupture; Translations: [Aneurysm of the ascending aorta, without rupture] Onset: 04-14-2023 Unclassified (1 source) ANEURYSM POPLITEAL ARTERY RIGHT Onset: 08-26-2023 Unclassified (1 source) discuss surgery Onset: 07-21-2023 Unclassified (1 source) Infrarenal abdominal aortic aneurysm, without rupture; Translations: [Infrarenal abdominal aortic aneurysm, without rupture] Onset: 07-07-2023 Unclassified (1 source) New Patient Onset: 07-07-2023 Past or Other Problems Problem Classification Problem Date Documented Da te Episodic/Chronic Abdominal hernia (2 sources) Incisional hernia without obstruction or gangrene; Translations: [Incisional hernia] Onset: 07-21-2023 07-21-2023 Episodic Mood disorders (2 sources) Mood disorders Onset: 01-11-2020 01-11-2020 Open wounds of extremities (2 sources) Multiple open wounds of lower leg; Translations: [Unspecified open wound, unspecified lower leg, initial encounter] Onset: 10-30-2019 10-30-2019 Episodic Other lower respiratory disease (2 sources) Shortness of breath; Translations: [Shortness of breath] Onset: 04-14-2023 Episodic Paralysis (3 sources) Transient paralysis; Translations: [TRANSIENT PARALYSIS] Onset: 04-23-2022 Episodic Phlebitis; thrombophlebitis and thromboembolism (3 sources) H/O: Deep vein thrombosis; Translations: [Personal history of other venous thrombosis and embolism] Onset: 02-12-2019 12-17-2022 Episodic Residual codes; unclassified (2 sources) Behavior showing reduced motor activity; Translations: [Other general symptoms and signs] Onset: 02-12-2019 02-12-2019 Episodic Residual codes; unclassified (2 sources) Tobacco user; Translations: [Tobacco use] Onset: 06-01-2019 06-01-2019 Episodic Residual codes; unclassified (2 sources) Localized edema; Translations: [Localized edema] Onset: 04-14-2023 Episodic Unclassified (1 source) Aneurysm of the ascending aorta, without rupture; Translations: [Aneurysm of the ascending aorta, without rupture] Onset: 04-14-2023 Results Test Name Value Interpretation Reference Range Facility CBC AND AUTO DIFFon 08-28-19 ABSOLUTE BASOPHIL 0.1 X10E9/L Normal 0.0-0.2 [facility] Comment on above: Performed By: #### C BCA, BMP, PINR, 78436-3, HA1C #### [facility] ([id number]) [address], [address] [place] [address] ABSOLUTE NEUTROPHIL 4.2 X10E9/L Normal 1.5-6.6 [facility] Comment on above: Performed By: #### C BCA, BMP, PINR, 36893-4, HA1C #### [facility] ([id number]) [address], [address] [place] [address] Basophils/100 WBC (Bld) 0.9 % Normal [facility] Comment on above: Performed By: #### C BCA, BMP, PINR, 51509-4, HA1C #### [facility] ([id number]) [address], [address] [place] [address] Eosinophils (Bld) [#/Vol] 0.2 10*3/uL Normal 0.0-0.4 [facility] Comment on above: Performed By: #### C BCA, BMP, PINR, 83778-8, HA1C #### [facility] ([id number]) [address], [address] [place] [address] Eosinophils/100 WBC (Bld) 2.4 % Normal [facility] Comment on above: Performed By: #### C BCA, BMP, PINR, 70598-9, HA1C #### [facility] ([id number]) [address], [address] [place] [address] Erythrocyte distribution width (RBC) [Ratio] 16.4 % High 11.5-15.0 [facility] Comment on above: Performed By: #### C BCA, BMP, PINR, 22854-8, HA1C #### [facility] ([id number]) [address], [address] [place] [address] Hematocrit (Bld) [Volume fraction] 31.7 % Low 39-49 [facility] Comment on above: Performed By: #### C BCA, BMP, PINR, 50284-8, HA1C #### [facility] ([id number]) [address], [address] [place] [address] Hemoglobin (Bld) [Mass/Vol] 11.0 g/dL Low 13.0-17.0 [facility] Comment on above: Performed By: #### C BCA, BMP, PINR, 67710-7, HA1C #### [facility] ([id number]) [address], [address] [place] [address] Lymphocytes (Bld) [#/Vol] 1.1 10*3/uL Normal 1.0-3.5 [facility] Comment on above: Performed By: #### C BCA, BMP, PINR, 72694-7, HA1C #### [facility] ([id number]) [address], [address] [place] [address] Lymphocytes/100 WBC (Bld) 17.2 % Normal [facility] Comment on above: Performed By: #### C BCA, BMP, PINR, 43986-8, HA1C #### [facility] ([id number]) [address], [address] [place] [address] MCH (RBC) [Entitic mass] 33.4 pg Normal 27-34 [facility] Comment on above: Performed By: #### C BCA, BMP, PINR, 16938-8, HA1C #### [facility] ([id number]) [address], [address] [place] [address] MCHC (RBC) [Mass/Vol] 34.9 g/dL Normal 32-36 [facility] Comment on above: Performed By: #### C BCA, BMP, PINR, 05403-7, HA1C #### [facility] ([id number]) [address], [address] [place] [address] MCV (RBC) [Entitic vol] 96 fL Normal 80-100 [facility] Comment on above: Performed By: #### C BCA, BMP, PINR, 59445-4, HA1C #### [facility] ([id number]) [address], [address] [place] [address] Monocytes (Bld) [#/Vol] 1.1 10*3/uL High 0-0.9 [facility] Comment on above: Performed By: #### C BCA, BMP, PINR, 67284-5, HA1C #### [facility] ([id number]) [address], [address] [place] [address] Monocytes/100 WBC (Bld) 17.0 % Normal [facility] Comment on above: Performed By: #### C BCA, BMP, PINR, 23412-1, HA1C #### [facility] ([id number]) [address], [address] [place] [address] Neutrophils/100 WBC (Bld) 62.5 % Normal [facility] Comment on above: Performed By: #### C BCA, BMP, PINR, 96535-7, HA1C #### [facility] ([id number]) [address], [address] [place] [address] Platelet mean volume (Bld) [Entitic vol] 9.9 fL Normal 7-12 [facility] Comment on above: Performed By: #### C BCA, BMP, PINR, 98226-1, HA1C #### [facility] ([id number]) [address], [address] [place] [address] Platelets (Bld) [#/Vol] 115 10*3/uL Low 150-450 [facility] Comment on above: Performed By: #### C BCA, BMP, PINR, 84557-1, HA1C #### [facility] ([id number]) [address] [address] [place] [address] RBC COUNT 3.31 X10E12/L Low 4.10-5.70 [facility] Comment on above: Performed By: #### C BCA, BMP, PINR, 89403-4, HA1C #### [facility] ([id number]) [address], [address] [place] [address] WBC (Bld) [#/Vol] 6.7 10*3/uL Normal 4.0-11.0 [facility] Comment on above: Performed By: #### C BCA, BMP, PINR, 64343-7, HA1C #### [facility] ([id number]) [address], [address] [place] [address] BASIC METABOLIC PANLon 08-26 Anion gap [Moles/Vol] 5 mmol/L Normal 5-15 [facility] Comment on above: Performed By: #### C BCA, BMP, PINR, 96817-1, HA1C #### [facility] ([id number]) [address], [facility] [address] [place] [address] Calcium [Mass/Vol] 7.9 mg/dL Low 8.5-10.5 [facility] Comment on above: Performed By: #### C BCA, BMP, PINR, 78719-1, HA1C #### [facility] ([id number]) [address], [facility] [address] [place] [address] Chloride [Moles/Vol] 102 mmol/L Normal 98-109 [facility] Comment on above: Performed By: #### C BCA, BMP, PINR, 22972-5, HA1C #### [facility] ([id number]) [address], [facility] [address] [place] [address] CO2 [Moles/Vol] 27 mmol/L Normal 22-32 [facility] Comment on above: Performed By: #### C BCA, BMP, PINR, 14353-9, HA1C #### [facility] ([id number]) [address], [facility] [address] [place] [address] Creatinine [Mass/Vol] 0.72 mg/dL Normal 0.60-1.30 [facility] Comment on above: Result Comment: METH OD TRACEABLE TO IDMS STANDARD Performed By: #### C BCA, BMP, PINR, 16930-8, HA1C #### [facility] ([id number]) [address], [facility] [address] [place] [address] eGFR (CKD-EPI) NON-RACE DEPENDENT >90 Normal >59 [facility] Comment on above: Result Comment: Reported eGFR is based on the CKD-EPI 2020 equation that does not use a race coefficient. Performed By: #### C BCA, BMP, PINR, 32365-4, HA1C #### [facility] ([id number]) [address] [address] [place] [address] Glucose [Mass/Vol] 86 mg/dL Normal 65-99 [facility] Comment on above: Performed By: #### C BCA, BMP, PINR, 72987-4, HA1C #### [facility] ([id number]) [address], [facility] [address] [place] [address] Potassium [Moles/Vol] 3.7 mmol/L Normal 3.5-5.0 [facility] Comment on above: Performed By: #### C BCA, BMP, PINR, 68947-7, HA1C #### [facility] ([id number]) [address] [address] Sodium [Moles/Vol] 134 mmol/L Normal 134-146 [facility] Comment on above: Performed By: #### C BCA, BMP, PINR, 11931-4, HA1C #### [facility] ([id number]) [address] [address] [place] [address] Urea nitrogen [Mass/Vol] 11 mg/dL Normal 5-27 [facility] Comment on above: Performed By: #### C BCA, BMP, PINR, 81634-2, HA1C #### [facility] ([id number]) [address] [address] [place] [address] CBC AND AUTO DIFFon 08-27-19 24 ABSOLUTE BASOPHIL 0.0 X10E9/L Normal 0.0-0.2 [facility] Comment on above: Performed By: #### C BCA, BMP, PINR, 17061-8, HA1C #### [facility] ([id number]) [address] [address] [place] [address] ABSOLUTE NEUTROPHIL 4.3 X10E9/L Normal 1.5-6.6 [facility] Comment on above: Performed By: #### C BCA, BMP, PINR, 88772-6, HA1C #### [facility] ([id number]) [address], [address] [place] [address] Basophils/100 WBC (Bld) 0.8 % Normal [facility] Comment on above: Performed By: #### C BCA, BMP, PINR, 12891-9, HA1C #### [facility] ([id number]) [address], [address] [place] [address] Eosinophils (Bld) [#/Vol] 0.2 10*3/uL Normal 0.0-0.4 [facility] Comment on above: Performed By: #### C BCA, BMP, PINR, 60355-7, HA1C #### [facility] ([id number]) [address], [address] [place] [address] Eosinophils/100 WBC (Bld) 3.5 % Normal [facility] Comment on above: Performed By: #### C BCA, BMP, PINR, 27954-1, HA1C #### [facility] ([id number]) [address] [place] [address] Erythrocyte distribution width (RBC) [Ratio] 16.7 % High 11.5-15.0 [facility] Comment on above: Performed By: #### C BCA, BMP, PINR, 80896-8, HA1C #### [facility] ([id number]) [address] [address] [place] [address] Hematocrit (Bld) [Volume fraction] 30.6 % Low 39-49 [facility] Comment on above: Performed By: #### C BCA, BMP, PINR, 52673-8, HA1C #### [facility] ([id number]) [address], [address] [place] [address] Hemoglobin (Bld) [Mass/Vol] 10.8 g/dL Low 13.0-17.0 [facility] Comment on above: Performed By: #### C BCA, BMP, PINR, 38850-6, HA1C #### [facility] ([id number]) [address] [address] [place] [address] Lymphocytes (Bld) [#/Vol] 1.0 10*3/uL Normal 1.0-3.5 [facility] Comment on above: Performed By: #### C BCA, BMP, PINR, 15881-6, HA1C #### [facility] ([id number]) [address] [address] Lymphocytes/100 WBC (Bld) 15.6 % Normal [facility] Comment on above: Performed By: #### C BCA, BMP, PINR, 39154-7, HA1C #### [facility] ([id number]) [address], [address] [address] MCH (RBC) [Entitic mass] 33.4 pg Normal 27-34 [facility] Comment on above: Performed By: #### C BCA, BMP, PINR, 96360-1, HA1C #### [facility] ([id number]) [address] [address] MCHC (RBC) [Mass/Vol] 35.3 g/dL Normal 32-36 [facility] Comment on above: Performed By: #### C BCA, BMP, PINR, 29097-4, HA1C #### [facility] ([id number]) [address] [address] MCV (RBC) [Entitic vol] 95 fL Normal 80-100 [facility] Comment on above: Performed By: #### C BCA, BMP, PINR, 89777-4, HA1C #### [facility] ([id number]) [address], [address] [place] [address] Monocytes (Bld) [#/Vol] 0.8 10*3/uL Normal 0-0.9 [facility] Comment on above: Performed By: #### C BCA, BMP, PINR, 39329-5, HA1C #### [facility] ([id number]) [address], [facility] [address] [place] [address] Monocytes/100 WBC (Bld) 12.6 % Normal [facility] Comment on above: Performed By: #### C BCA, BMP, PINR, 31374-3, HA1C #### [facility] ([id number]) [address], [facility] [address] [place] [address] Neutrophils/100 WBC (Bld) 67.5 % Normal [facility] Comment on above: Performed By: #### C BCA, BMP, PINR, 09531-9, HA1C #### [facility] ([id number]) [address], [facility] [address] [place] [address] Platelet mean volume (Bld) [Entitic vol] 9.5 fL Normal 7-12 [facility] Comment on above: Performed By: #### C BCA, BMP, PINR, 78801-7, HA1C #### [facility] ([id number]) [address], [facility] [address] [place] [address] Platelets (Bld) [#/Vol] 121 10*3/uL Low 150-450 [facility] Comment on above: Performed By: #### C BCA, BMP, PINR, 12890-1, HA1C #### [facility] ([id number]) [address] [address] [place] [address] RBC COUNT 3.24 X10E12/L Low 4.10-5.70 [facility] Comment on above: Performed By: #### C BCA, BMP, PINR, 13470-1, HA1C #### [facility] ([id number]) [address], [address] [place] [address] WBC (Bld) [#/Vol] 6.4 10*3/uL Normal 4.0-11.0 [facility] Comment on above: Performed By: #### C BCA, BMP, PINR, 82117-0, HA1C #### [facility] ([id number]) [address], [address] [place] [address] MAGNESIUMon 08-27-2023 Magnesium [Mass/Vol] 2.2 mg/dL Normal 1.8-2.6 [facility] Comment on above: Performed By: #### C BCA, BMP, PINR, 61506-8, HA1C #### [facility] ([id number]) [address], [address] [place] [address] PHOSPHORUSon 08-27-2023 Phosphate [Mass/Vol] 3.0 mg/dL Normal 2.4-4.9 [facility] Comment on above: Performed By: #### C BCA, BMP, PINR, 70183-0, HA1C #### [facility] ([id number]) [address], [address] [place] [address] BASIC METABOLIC PANLon 08-25 Anion gap [Moles/Vol] 8 mmol/L Normal 5-15 [facility] Comment on above: Performed By: #### C BCA, BMP, PINR, 59014-7, HA1C #### [facility] ([id number]) [address], [address] [place] [address] Calcium [Mass/Vol] 8.1 mg/dL Low 8.5-10.5 [facility] Comment on above: Performed By: #### C BCA, BMP, PINR, 25620-8, HA1C #### [facility] ([id number]) [address], [address] [place] [address] Chloride [Moles/Vol] 103 mmol/L Normal 98-109 [facility] Comment on above: Performed By: #### C BCA, BMP, PINR, 30121-3, HA1C #### [facility] ([id number]) [address], [address] [place] [address] CO2 [Moles/Vol] 27 mmol/L Normal 22-32 [facility] Comment on above: Performed By: #### C BCA, BMP, PINR, 17139-6, HA1C #### [facility] ([id number]) [address], [address] [place] [address] Creatinine [Mass/Vol] 0.76 mg/dL Normal 0.60-1.30 [facility] Comment on above: Result Comment: METH OD TRACEABLE TO IDMS STANDARD Performed By: #### C BCA, BMP, PINR, 93691-5, HA1C #### [facility] ([id number]) [address], [address] [place] [address] eGFR (CKD-EPI) NON-RACE DEPENDENT >90 Normal >59 [facility] Comment on above: Result Comment: Reported eGFR is based on the CKD-EPI 2020 equation that does not use a race coefficient. Performed By: #### C BCA, BMP, PINR, 27312-8, HA1C #### [facility] ([id number]) [address], [address] [place] [address] Glucose [Mass/Vol] 88 mg/dL Normal 65-99 [facility] Comment on above: Performed By: #### C BCA, BMP, PINR, 72125-2, HA1C #### [facility] ([id number]) [address], [facility] [address] [place] [address] Potassium [Moles/Vol] 3.5 mmol/L Normal 3.5-5.0 [facility] Comment on above: Performed By: #### C BCA, BMP, PINR, 94082-6, HA1C #### [facility] ([id number]) [address], [address] [place] [address] Sodium [Moles/Vol] 138 mmol/L Normal 134-146 [facility] Comment on above: Performed By: #### C BCA, BMP, PINR, 25402-5, HA1C #### [facility] ([id number]) [address], [address] [place] [address] Urea nitrogen [Mass/Vol] 11 mg/dL Normal 5-27 [facility] Comment on above: Performed By: #### C BCA, BMP, PINR, 54989-5, HA1C #### [facility] ([id number]) [address], [address] [place] [address] CBC AND AUTO DIFFon 08-26-19 24 ABSOLUTE BASOPHIL 0.1 X10E9/L Normal 0.0-0.2 [facility] Comment on above: Performed By: #### C BCA, PINR, 96091-0, BMP, , 1 #### [facility] ([id number]) [address], [address] [place] [address] ABSOLUTE NEUTROPHIL 5.8 X10E9/L Normal 1.5-6.6 [facility] Comment on above: Performed By: #### C BCA, PINR, 94645-0, BMP, , 1 #### [facility] ([id number]) [address], [address] [place] [address] Basophils/100 WBC (Bld) 1.5 % Normal [facility] Comment on above: Performed By: #### C BCA, PINR, 49644-9, BMP, , 2776-03 #### [facility] ([id number]) [address], [address] [place] [address] Eosinophils (Bld) [#/Vol] 0.3 10*3/uL Normal 0.0-0.4 [facility] Comment on above: Performed By: #### C BCA, PINR, 46972-0, BMP, 74941-3, 2776-03 #### [facility] ([id number]) [address], [address] [place] [address] Eosinophils/100 WBC (Bld) 3.3 % Normal [facility] Comment on above: Performed By: #### C BCA, PINR, 78559-3, BMP, , 2776-03 #### [facility] ([id number]) [address] [address] [place] [address] Erythrocyte distribution width (RBC) [Ratio] 16.6 % High 11.5-15.0 [facility] Comment on above: Performed By: #### C BCA, PINR, 56382-4, BMP, , 2776-03 #### [facility] ([id number]) [address] [address] [place] [address] Hematocrit (Bld) [Volume fraction] 34.9 % Low 39-49 [facility] Comment on above: Performed By: #### C BCA, PINR, 48918-4, BMP, , 2776-03 #### [facility] ([id number]) [address] [address] [place] [address] Hemoglobin (Bld) [Mass/Vol] 11.9 g/dL Low 13.0-17.0 [facility] Comment on above: Performed By: #### C BCA, PINR, 66564-8, BMP, 11065-6, 2776-03 #### [facility] ([id number]) [address] [address] [place] [address] Lymphocytes (Bld) [#/Vol] 1.2 10*3/uL Normal 1.0-3.5 [facility] Comment on above: Performed By: #### C BCA, PINR, 31175-2, BMP, , 2776-03 #### [facility] ([id number]) [address], [address] [place] [address] Lymphocytes/100 WBC (Bld) 14.6 % Normal [facility] Comment on above: Performed By: #### C BCA, PINR, 04560-7, BMP, , 2776-03 #### [facility] ([id number]) [address], [facility] [address] [place] [address] MCH (RBC) [Entitic mass] 32.1 pg Normal 27-34 [facility] Comment on above: Performed By: #### C BCA, PINR, 01172-4, BMP, , 2776-03 #### [facility] ([id number]) [address], [facility] [address] [place] [address] MCHC (RBC) [Mass/Vol] 34.0 g/dL Normal 32-36 [facility] Comment on above: Performed By: #### C BCA, PINR, 32477-0, BMP, , 2776-03 #### [facility] ([id number]) [address], [facility] [address] [place] [address] MCV (RBC) [Entitic vol] 95 fL Normal 80-100 [facility] Comment on above: Performed By: #### C BCA, PINR, 38379-0, BMP, , 2776-03 #### [facility] ([id number]) [address], [address] [place] [address] Monocytes (Bld) [#/Vol] 0.8 10*3/uL Normal 0-0.9 [facility] Comment on above: Performed By: #### C BCA, PINR, 78166-8, BMP, , 2776-03 #### [facility] ([id number]) [address], [address] [place] [address] Monocytes/100 WBC (Bld) 9.7 % Normal [facility] Comment on above: Performed By: #### C BCA, PINR, 78752-1, BMP, , 2776-03 #### [facility] ([id number]) [address], [address] [place] [address] Neutrophils/100 WBC (Bld) 70.9 % Normal [facility] Comment on above: Performed By: #### C BCA, PINR, 71819-9, BMP, , 2776-03 #### [facility] ([id number]) [address], [facility] [address] [place] [address] Platelet mean volume (Bld) [Entitic vol] 9.7 fL Normal 7-12 [facility] Comment on above: Performed By: #### C BCA, PINR, 15560-8, BMP, , 2776-03 #### [facility] ([id number]) [address], [address] [place] [address] Platelets (Bld) [#/Vol] 141 10*3/uL Low 150-450 [facility] Comment on above: Performed By: #### C BCA, PINR, 69868-6, BMP, , 2776-03 #### [facility] ([id number]) [address], [address] [place] [address] RBC COUNT 3.69 X10E12/L Low 4.10-5.70 [facility] Comment on above: Performed By: #### C BCA, PINR, 33885-5, BMP, , 2776-03 #### [facility] ([id number]) [address], [address] [place] [address] WBC (Bld) [#/Vol] 8.2 10*3/uL Normal 4.0-11.0 [facility] Comment on above: Performed By: #### C BCA, PINR, 50113-5, BMP, , 2776-03 #### [facility] ([id number]) [address], [address] [place] [address] Glucose Glucometer (BldC) [M ass/Vol]on 08-26-2023 Glucose [Mass/Vol] 111 mg/dL High 65-99 [facility] Heparin unfractionated Chrom ogenic method Qn (PPP)on 08-26-2023 ANTI XA UFH 0.15 IU/mL Low 0.30-0.70 [facility] Comment on above: Result Comment: Opti mal time for testing is 6 hrs post dosage This test is specific for monitoring patients on UFH, and is not recommended for use with other Anti-Xa medications. Performed By: #### C BCA, BMP, PINR, 92198-5, HA1C #### [facility] ([id number]) [address], [address] [place] [address] MAGNESIUMon 08-26-2023 Magnesium [Mass/Vol] 1.4 mg/dL Low 1.8-2.6 [facility] Comment on above: Performed By: #### C DANIEL, BMP, PINR, 01109-0, HA1C #### [facility] ([id number]) [address], [address] [place] [address] PHOSPHORUSon 08-26-2023 Phosphate [Mass/Vol] 2.5 mg/dL Normal 2.4-4.9 [facility] Comment on above: Performed By: #### C BCA, BMP, PINR, 40921-8, HA1C #### [facility] ([id number]) [address], [address] [place] [address] PROTIME AND INRon 08-26-2023 INR Coag (PPP) [Relative time] 1.0 {INR} Normal 0.8-1.1 [facility] Comment on above: Performed By: #### C BCA, PINR, 51299-2, BMP, , 2776-03 #### [facility] ([id number]) [address], [address] [place] [address] PT Coag (PPP) [Time] 11.8 s Normal 9.8-13.2 [facility] Comment on above: Performed By: #### C BCA, PINR, 96143-5, BMP, 71197-1, 2777-1 #### [facility] ([id number]) [address], [address] [place] [address] RAPID CARDIACon 08-26-2023 ANGELIA'S TEST Normal [facility] Comment on above: Performed By: #### A FAB5 #### [facility] ([id number]) [address] [place] [address] Base excess Calc (Bld) [Moles/Vol] 3.9 mmol/L High 0.0-2.0 [facility] Comment on above: Performed By: #### A FAB5 #### [facility] ([id number]) [address] [place] [address] Body temperature 98.6 [degF] Normal 37.[address] [facility] Comment on above: Performed By: #### A FAB5 #### [facility] ([id number]) [address] [place] [address] Glucose [Mass/Vol] 104 mg/dL High 65-99 [facility] Comment on above: Performed By: #### A FAB5 #### [facility] ([id number]) [address] [place] [address] HCO3 (Bld) [Moles/Vol] 27.7 mmol/L High 22-26 [facility] Comment on above: Performed By: #### A FAB5 #### [facility] ([id number]) [address] [place] [address] Hematocrit (Bld) [Volume fraction] 37 % Low 39-49 [facility] Comment on above: Performed By: #### A FAB5 #### [facility] ([id number]) [address] [place] [address] Hemoglobin (Bld) [Mass/Vol] 12.0 g/dL Low 13.0-17.0 [facility] Comment on above: Performed By: #### A FAB5 #### [facility] ([id number]) [address] [place] [address] INSP. O2 CONC. 100 % Normal [facility] Comment on above: Performed By: #### A FAB5 #### [facility] ([id number]) [address] [place] [address] IONIZED CALCIUM 4.6 mg/dL Normal 4.5-5.3 [facility] Comment on above: Performed By: #### A FAB5 #### [facility] ([id number]) [address] [place] [address] Oxygen (Bld) [Partial pressure] 174 mm[Hg] High 80-100 [facility] Comment on above: Performed By: #### A FAB5 #### [facility] ([id number]) [address] [place] [address] Oxygen saturation in Blood 100.1 % Normal >90 [facility] Comment on above: Performed By: #### A FAB5 #### [facility] ([id number]) [address] [place] [address] PCO2 38.8 MMHG Normal 35-45 [facility] Comment on above: Performed By: #### A FAB5 #### [facility] ([id number]) [address] [place] [address] pH (Bld) 7.463 [pH] High 7.350-7.450 [facility] Comment on above: Performed By: #### A FAB5 #### [facility] ([id number]) [address] [place] [address] Potassium [Moles/Vol] 3.3 mmol/L Low 3.5-5.0 [facility] Comment on above: Performed By: #### A FAB5 #### [facility] ([id number]) [address] [place] [address] SAMPLE SITE DELANO Normal [facility] Comment on above: Performed By: #### A FAB5 #### [facility] ([id number]) [address] [place] [address] SAMPLE TYPE Arterial Normal [facility] Comment on above: Performed By: #### A FAB5 #### [facility] ([id number]) [address] [place] [address] aPTT Coag (PPP) [Time]on aPTT Coag (Bld) [Time] 37 s Normal 26-37 [facility] Comment on above: Performed By: #### C BCA, BMP, PINR, 56083-0, HA1C #### [facility] ([id number]) [address], [address] [place] [address] BASIC METABOLIC PANLon 08-14 Anion gap [Moles/Vol] 11 mmol/L Normal 5-15 [facility] Comment on above: Performed By: #### C BCA, BMP, PINR, 99393-9, HA1C #### [facility] ([id number]) [address] [place] [address] Calcium [Mass/Vol] 9.5 mg/dL Normal 8.5-10.5 [facility] Comment on above: Performed By: #### C BCA, BMP, PINR, 40795-0, HA1C #### [facility] ([id number]) [address], [address] [place] [address] Chloride [Moles/Vol] 93 mmol/L Low 98-109 [facility] Comment on above: Performed By: #### C BCA, BMP, PINR, 66762-9, HA1C #### [facility] ([id number]) [address], [address] [place] [address] CO2 [Moles/Vol] 29 mmol/L Normal 22-32 [facility] Comment on above: Performed By: #### C BCA, BMP, PINR, 41719-8, HA1C #### [facility] ([id number]) [address], [address] [place] [address] Creatinine [Mass/Vol] 1.08 mg/dL Normal 0.60-1.30 [facility] Comment on above: Result Comment: METH OD TRACEABLE TO IDMS STANDARD Performed By: #### C BCA, BMP, PINR, 45850-5, HA1C #### [facility] ([id number]) [address] [place] [address] GFR/1.73 sq M.predicted among non-blacks MDRD (S/P/Bld) [Vol rate/Area] 73 mL/min/{1.73_m2} Normal >59 [facility] Comment on above: Result Comment: Reported eGFR is based on the CKD-EPI 2020 equation that does not use a race coefficient. Performed By: #### C BCA, BMP, PINR, 64270-9, HA1C #### [facility] ([id number]) [address], [address] [place] [address] Glucose [Mass/Vol] 128 mg/dL High 65-99 [facility] Comment on above: Performed By: #### C BCA, BMP, PINR, 61749-9, HA1C #### [facility] ([id number]) [address], [address] [place] [address] Potassium [Moles/Vol] 3.5 mmol/L Normal 3.5-5.0 [facility] Comment on above: Performed By: #### C BCA, BMP, PINR, 15472-4, HA1C #### [facility] ([id number]) [address], [address] [place] [address] Sodium [Moles/Vol] 133 mmol/L Low 134-146 [facility] Comment on above: Performed By: #### C BCA, BMP, PINR, 31372-9, HA1C #### [facility] ([id number]) [address], [address] [place] [address] Urea nitrogen [Mass/Vol] 24 mg/dL Normal 5-27 [facility] Comment on above: Performed By: #### C BCA, BMP, PINR, 24548-1, HA1C #### [facility] ([id number]) [address], [address] [place] [address] CBC AND AUTO DIFFon 05-20-20 24 ABSOLUTE BASOPHIL 0.1 X10E9/L Normal 0.0-0.2 [facility] Comment on above: Performed By: #### C BCA, BMP, PINR, 62605-2, HA1C #### [facility] ([id number]) [address] [address] [place] [address] ABSOLUTE NEUTROPHIL 3.9 X10E9/L Normal 1.5-6.6 [facility] Comment on above: Performed By: #### C BCA, BMP, PINR, 54525-9, HA1C #### [facility] ([id number]) [address], [address] [place] [address] Basophils/100 WBC (Bld) 1.3 % Normal [facility] Comment on above: Performed By: #### C BCA, BMP, PINR, 44045-7, HA1C #### [facility] ([id number]) [address] [address] [place] [address] Eosinophils (Bld) [#/Vol] 0.2 10*3/uL Normal 0.0-0.4 [facility] Comment on above: Performed By: #### C BCA, BMP, PINR, 28134-0, HA1C #### [facility] ([id number]) [address] [address] [place] [address] Eosinophils/100 WBC (Bld) 3.6 % Normal [facility] Comment on above: Performed By: #### C BCA, BMP, PINR, 87975-3, HA1C #### [facility] ([id number]) [address] [address] Erythrocyte distribution width (RBC) [Ratio] 16.2 % High 11.5-15.0 [facility] Comment on above: Performed By: #### C BCA, BMP, PINR, 12872-8, HA1C #### [facility] ([id number]) [address] [address] Hematocrit (Bld) [Volume fraction] 40.3 % Normal 39-49 [facility] Comment on above: Performed By: #### C BCA, BMP, PINR, 64196-3, HA1C #### [facility] ([id number]) [address] [address] Hemoglobin (Bld) [Mass/Vol] 14.1 g/dL Normal 13.0-17.0 [facility] Comment on above: Performed By: #### C BCA, BMP, PINR, 83645-2, HA1C #### [facility] ([id number]) [address] [address] Lymphocytes (Bld) [#/Vol] 1.2 10*3/uL Normal 1.0-3.5 [facility] Comment on above: Performed By: #### C BCA, BMP, PINR, 10796-6, HA1C #### [facility] ([id number]) [address] [address] Lymphocytes/100 WBC (Bld) 20.0 % Normal [facility] Comment on above: Performed By: #### C BCA, BMP, PINR, 42843-6, HA1C #### [facility] ([id number]) [address] [address] MCH (RBC) [Entitic mass] 32.8 pg Normal 27-34 [facility] Comment on above: Performed By: #### C BCA, BMP, PINR, 07078-6, HA1C #### [facility] ([id number]) [address] [address] MCHC (RBC) [Mass/Vol] 35.0 g/dL Normal 32-36 [facility] Comment on above: Performed By: #### C BCA, BMP, PINR, 39910-6, HA1C #### [facility] ([id number]) [address] [address] MCV (RBC) [Entitic vol] 94 fL Normal 80-100 [facility] Comment on above: Performed By: #### C BCA, BMP, PINR, 08091-0, HA1C #### [facility] ([id number]) [address] [address] Monocytes (Bld) [#/Vol] 0.7 10*3/uL Normal 0-0.9 [facility] Comment on above: Performed By: #### C BCA, BMP, PINR, 87033-5, HA1C #### [facility] ([id number]) [address] [address] Monocytes/100 WBC (Bld) 10.9 % Normal [facility] Comment on above: Performed By: #### C BCA, BMP, PINR, 07661-7, HA1C #### [facility] ([id number]) [address] [place] [address] Neutrophils/100 WBC (Bld) 64.2 % Normal [facility] Comment on above: Performed By: #### C BCA, BMP, PINR, 46027-4, HA1C #### [facility] ([id number]) [address], [facility] [address] [place] [address] Platelet mean volume (Bld) [Entitic vol] 9.9 fL Normal 7-12 [facility] Comment on above: Performed By: #### C BCA, BMP, PINR, 69415-7, HA1C #### [facility] ([id number]) [address], [facility] [address] [place] [address] Platelets (Bld) [#/Vol] 170 10*3/uL Normal 150-450 [facility] Comment on above: Performed By: #### C BCA, BMP, PINR, 63905-4, HA1C #### [facility] ([id number]) [address] [address] [place] [address] RBC COUNT 4.31 X10E12/L Normal 4.10-5.70 [facility] Comment on above: Performed By: #### C BCA, BMP, PINR, 21576-5, HA1C #### [facility] ([id number]) [address] [address] WBC (Bld) [#/Vol] 6.1 10*3/uL Normal 4.0-11.0 [facility] Comment on above: Performed By: #### C BCA, BMP, PINR, 51873-3, HA1C #### [facility] ([id number]) [address] [address] [place] [address] HGB A1C (GLYCO-HGB)on 2023 Glucose [Mass/Vol] 131 mg/dL Normal [facility] Comment on above: Performed By: #### C BCA, BMP, PINR, 78508-4, HA1C #### [facility] ([id number]) [address], [address] [place] [address] HbA1c (Bld) [Mass fraction] 6.2 % High 4.4-5.6 [facility] Comment on above: Result Comment: NOTE ADA Guidelines Result HgbA1c Normal : less than 5.7 % Prediabetes : 5.7 % to 6.4 % Diabetes : > 6.4 % Use with caution in patients with abnormal hemoglobin variants as the half-life of red blood cells and in vivo glycation rates are affected. Performed By: #### C DANIEL, BMP, PINR, 95466-4, HA1C #### [facility] ([id number]) [address], [address] [place] [address] PROTIME AND INRon 08-15-2023 INR Coag (PPP) [Relative time] 1.0 {INR} Normal 0.8-1.1 [facility] Comment on above: Performed By: #### C BCA, BMP, PINR, 38579-8, HA1C #### [facility] ([id number]) [address], [address] [place] [address] PT Coag (PPP) [Time] 11.1 s Normal 9.8-13.2 [facility] Comment on above: Performed By: #### C BCA, BMP, PINR, 81373-6, HA1C #### [facility] ([id number]) [address], [address] [place] [address] URINALYSISon 08-15-2023 Bilirubin Ql (U) Negative Normal NEG [facility] Comment on above: Performed By: #### U A #### [facility] ([id number]) [address], [address] [place] [address] BLOOD/HGB Negative Normal NEG [facility] Comment on above: Performed By: #### U A #### [facility] ([id number]) [address], [address] [place] [address] Color (U) YELLOW Normal YELLOW [facility] Comment on above: Performed By: #### U A #### [facility] ([id number]) [address], [address] [place] [address] Glucose Ql (U) 200 mg/dL Abnormal NEG [facility] Comment on above: Performed By: #### U A #### [facility] ([id number]) [address], [address] [place] [address] Ketones Ql (U) Negative Normal NEG [facility] Comment on above: Performed By: #### U A #### [facility] ([id number]) [address], [address] [place] [address] Leukocyte esterase Test strip Ql (U) Negative Normal NEG [facility] Comment on above: Performed By: #### U A #### [facility] ([id number]) [address] [place] [address] Nitrite Ql (U) Negative Normal NEG [facility] Comment on above: Performed By: #### U A #### [facility] ([id number]) [address], [address] [place] [address] pH (U) 6.5 [pH] Normal 5.0-8.5 [facility] Comment on above: Performed By: #### U A #### [facility] ([id number]) [address], [address] [place] [address] Protein Ql (U) Negative Normal NEG [facility] Comment on above: Performed By: #### U A #### [facility] ([id number]) [address], [address] [place] [address] Specific gravity (U) [Rel density] 1.005 Normal 1.003-1.035 [facility] Comment on above: Performed By: #### U A #### [facility] ([id number]) [address], [address] [place] [address] TURBIDITY CLEAR Normal CLEAR [facility] Comment on above: Performed By: #### U A #### [facility] ([id number]) [address], [address] [place] [address] Urobilinogen (U) [Mass/Vol] mg/dL Normal <1.1 [facility] Comment on above: Performed By: #### U A #### [facility] ([id number]) [address], [address] [place] [address] aPTT Coag (PPP) [Time]on aPTT Coag (Bld) [Time] 34 s Normal 26-37 [facility] Comment on above: Performed By: #### C BCA, BMP, PINR, 66248-5, HA1C #### [facility] ([id number]) [address], [address] [place] [address] 36on 08-05-2023 36 Patient's echo is sc anned into his chart for your review. He needs cleared for surgery with Dr. Cole. Please advise. Thanks. [facility] 36on 07-26-2023 36 Spoke with Cynthia at [facility] scheduling. She will call patient to get him scheduled for echo next available. [facility] on 07-21-[address] Coel is request ing surgery clearance for open popliteal artery aneurysm repair. Do you need any cardiac testing or can he proceed? Please advise. Thanks [facility] Telephoneon 07-21-2023 Telephone [phone] Last Patel 1950 M Date Provider Department Center 07/21/2023 Clarita-SANCHEZ GIBBS [facility] Family History Problem Relation Age of Onset Heart failure Mother Heart failure Father Family Status - Relation Status Age at Mother Father Normal [facility] Office Visiton 04-14-2023 Follow-up visit [id number] Last Patel 1950 M Date Provider Department Center 04/14/2023 SRIRAMANNE-MARIE CLAIR [facility] Family History Problem Relation Age of Onset Heart failure Mother Heart failure Father Family Status - Relation Status Age at Mother Father Level of Service:[address] [place] OFFICE/OUTPATIENT ESTABLISHED MOD MDM 30 MIN Normal [facility] Ambulatory Visit Summaryon 1 Ambulatory Visit Summary [...] cell carcinoma in situ of skin Normal [facility] General Surgery Office/Clini c Noteon 01-05-2023 [...] Family History Heart disease: Mother and Father. [facility] Comment on above: Result Comment: Elec tronically Signed By: EPI MENENDEZ, Ronald Arenas\Date and Time Signed: 01/05/23 13:10 EDT Pathology Noteon 01-05-2023 Pathology Note [id number]#1.00TIFF [facility] Operative Reporton Operative Report [id number]#1.00TIFF [facility] Consent for Procedure/Surger yon 12-22-2022 Consent for Procedure/Surgery [id number]#1.00CD:127 [facility] Ambulatory Visit Summaryon 0 12-21-2022 Ambulatory Visit Summary ADEN PATEL :1950 Visit Date:12/21/2022 Ambulatory Visit Instructions Your Care Team Attending Physician - EPI MENENDEZ, Ronald Cuevas Primary Care Physician - Juan Carlos MENENDEZ, Quentin Referring Physician - Quentin Rangel MD This [...] sleep apnea syndrome Paroxysmal atrial fibrillation Normal [facility] Facesheeton 12-21-2022 Facesheet [id number]#1.00CD:127 Normal [facility] Physician Referralon 023 Physician Referral [id number]#[id number]:127 Normal [facility] Physician Referralon 023 Physician Referral [id number]#1.00CD:127 Normal [facility] CT CHEST W CONon 05-04-2022 CT CHEST [...] by: AUDREY BRIDGES Date: 2022-05-04 13:59 Normal [facility] US CAROTID ART BILon 023 US CAROTID [...] NOLVIA CANTU Date: 2022-04-20 07:19 Normal [facility] CBC AUTO DIFFon 04-19-2022 BASO # 0.0 103/ul Normal 0.0-0.1 [facility] Comment on above: Performed By: #### C BC #### [facility] [address] [place] [address] Dr. Femi Macias Basophils/100 WBC (Bld) 0.6 % Normal 0.2-2.0 [facility] Comment on above: Performed By: #### C BC #### [facility] [address] [place] [address] Dr. Femi Macias EO # 0.2 103/ul Normal 0.0-0.7 [facility] Comment on above: Performed By: #### C BC #### [facility] [address] [place] [address] Dr. Femi Macias Eosinophils/100 WBC (Bld) 2.7 % Normal 0.9-7.0 [facility] Comment on above: Performed By: #### C BC #### [facility] [address] [place] [address] Dr. Femi Macias Erythrocyte distribution width (RBC) [Ratio] 14.4 % Normal 11.0-15.0 [facility] Comment on above: Performed By: #### C BC #### [facility] [address] [place] [address] Dr. Femi Macias Hematocrit (Bld) [Volume fraction] 38.8 % Critically low 42.0-54.0 [facility] Comment on above: Performed By: #### C BC #### [facility] [address] [place] [address] Dr. Femi Macias Hemoglobin (Bld) [Mass/Vol] 13.8 g/dL Critically low 14.0-18.0 [facility] Comment on above: Performed By: #### C BC #### [facility] [address] [place] [address] Dr. Femi Macias IG # 0.02 10e3/ul Normal 0.00-0.03 [facility] Comment on above: Performed By: #### C BC #### [facility] [address] [place] [address] Dr. Femi Macias IG % 0.3 % Normal 0.0-0.5 [facility] Comment on above: Performed By: #### C BC #### [facility] [address] [place] [address] Dr. Femi Macias LYMPH # 1.3 103/ul Normal 1.2-3.8 [facility] Comment on above: Performed By: #### C BC #### [facility] [address] [place] [address] Dr. Femi Macias Lymphocytes/100 WBC (Bld) 18.2 % Critically low 20.5-60.0 [facility] Comment on above: Performed By: #### C BC #### [facility] [address] [place] [address] Dr. Femi Macias MANUAL DIFF REQ NO Normal [facility] Comment on above: Performed By: #### C BC #### [facility] [address] [place] [address] Dr. Femi Macias MCH (RBC) [Entitic mass] 31.8 pg Normal 25.9-34.0 [facility] Comment on above: Performed By: #### C BC #### [facility] [address] [place] [address] Dr. Femi Macias MCHC (RBC) [Mass/Vol] 35.6 g/dL Critically high 29.9-35.2 [facility] Comment on above: Performed By: #### C BC #### [facility] [address] [place] [address] Dr. Femi Macias MCV (RBC) [Entitic vol] 89.4 fL Normal 80.0-94.0 [facility] Comment on above: Performed By: #### C BC #### [facility] [address] [place] [address] Dr. Femi Macias MONO # 1.0 103/ul Critically high 0.3-0.8 [facility] Comment on above: Performed By: #### C BC #### [facility] [address] [place] [address] Dr. Femi Macias Monocytes/100 WBC (Bld) 14.1 % Critically high 1.7-12.0 [facility] Comment on above: Performed By: #### C BC #### [facility] [address] [place] [address] Dr. Femi Macias NEUT # 4.5 103/ul Normal 1.4-6.5 [facility] Comment on above: Performed By: #### C BC #### [facility] [address] [address] [address] Femi Macias Neutrophils/100 WBC (Bld) 64.1 % Normal 43.0-75.0 [facility] Comment on above: Performed By: #### C BC #### [facility] [address] [address] [address] Femi Macias Platelet mean volume (Bld) [Entitic vol] 10.4 fL Normal 9.5-13.5 [facility] Comment on above: Performed By: #### C BC #### [facility] [address] [address] [address] Femi Macias PLT 167 103/ul Normal 150-450 [facility] Comment on above: Performed By: #### C BC #### [facility] [address] [address] [address] Femi Macias RBC 4.34 106/ul Critically low 4.70-6.10 [facility] Comment on above: Performed By: #### C BC #### [facility] [id number] Femi Macias WBC 7.0 103/ul Normal 4.0-11.0 [facility] Comment on above: Performed By: #### C BC #### [facility] [id number] Femi Macias ECHOCARDIO M/2D COMPLETEon 0 04-19-2022 ECHOCARDIO M/2D COMPLETE Patient: ADEN PATELYumiko Exam Date: 04/19/2022 : 1950 Gender:M Ordering : DR ANNE-MARIE BAKER M.D. Admission #: [id number] Family : Order #: [id number] CLICK HERE TO VIEW EXAM ECHOCARDIOGRAM REPORT [...] Baker M.D. on 04/21/2022 at 15:37 Normal [facility] PROF CHEM 8 (BAS METB)on Anion gap [Moles/Vol] 13.1 mmol/L Normal [facility] Comment on above: Performed By: #### B MP #### [facility] [address] [place] [address] Dr. Femi Macias Calcium [Mass/Vol] 8.7 mg/dL Normal 8.5-10.1 [facility] Comment on above: Performed By: #### B MP #### [facility] [address] [address] [address] Femi Macias Chloride [Moles/Vol] 100 mmol/L Normal 98-107 [facility] Comment on above: Performed By: #### B MP #### [facility] [address] [address] [address] Femi Macias CO2 [Moles/Vol] 26.6 mmol/L Normal 21.0-32.0 [facility] Comment on above: Performed By: #### B MP #### [facility] [address] [address] [address] Femi Macias Creatinine [Mass/Vol] 1.08 mg/dL Normal 0.70-1.30 [facility] Comment on above: Performed By: #### B MP #### [facility] [address] [place] [address] Dr. Femi Macias EGFR-AF TUVALUAN >60 Normal >=60 [facility] Comment on above: Performed By: #### B MP #### [facility] [address] [address] [address] Femi Macias EGFR-NON AF TUVALUAN >60 Normal >=60 [facility] Comment on above: Performed By: #### B MP #### [facility] [address] [place] [address] Dr. Femi Macias Glucose [Mass/Vol] 123 mg/dL Critically high 74-106 [facility] Comment on above: Performed By: #### B MP #### [facility] [address] [place] [address] Dr. Femi Macias Potassium [Moles/Vol] 3.7 mmol/L Normal 3.5-5.1 [facility] Comment on above: Performed By: #### B MP #### [facility] [address] [place] [address] Dr. Femi Macias Sodium [Moles/Vol] 136 mmol/L Normal 136-145 [facility] Comment on above: Performed By: #### B MP #### [facility] [address] [place] [address] Dr. Femi Macias Urea nitrogen [Mass/Vol] 15.0 mg/dL Normal 7.0-18.0 [facility] Comment on above: Performed By: #### B MP #### [facility] [address] [place] [address] Dr. Femi Macias Urea nitrogen/Creatini ne [Mass ratio] 13.9 mg/mg Normal [facility] Comment on above: Performed By: #### B MP #### [facility] [address] [place] [address] Dr. Femi Macias PROF CHEM 8 (BAS METB)on Anion gap [Moles/Vol] 15.4 mmol/L Normal [facility] Comment on above: Performed By: #### B MP #### [facility] [address] [place] [address] Dr. Femi Macias Calcium [Mass/Vol] 9.2 mg/dL Normal 8.4-10.2 [facility] Comment on above: Performed By: #### B MP #### [facility] [address] [address] [address] Femi Macias Chloride [Moles/Vol] 99 mmol/L Normal 98-107 [facility] Comment on above: Performed By: #### B MP #### [facility] [address] [place] [address] Dr. Femi Macias CO2 [Moles/Vol] 25.8 mmol/L Normal 22.0-30.0 [facility] Comment on above: Performed By: #### B MP #### [facility] [address] [place] [address] Dr. Femi Macias Creatinine [Mass/Vol] 1.40 mg/dL Critically high 0.66-1.25 [facility] Comment on above: Performed By: #### B MP #### [facility] [address] [place] [address] Dr. Femi Macias EGFR-AF TUVALUAN >60 Normal >=60 [facility] Comment on above: Performed By: #### B MP #### [facility] [address] [place] [address] Dr. Femi Macias EGFR-NON AF TUVALUAN 50 mL/min/1.73m2 Critically low >=60 [facility] Comment on above: Performed By: #### B MP #### [facility] [address] [address] [address] Femi Macias Glucose [Mass/Vol] 179 mg/dL Critically high 74-106 [facility] Comment on above: Performed By: #### B MP #### [facility] [address] [place] [address] Dr. Femi Macias Potassium [Moles/Vol] 4.2 mmol/L Normal 3.4-5.0 [facility] Comment on above: Performed By: #### B MP #### [facility] [address] [address] [address] Femi Macias Sodium [Moles/Vol] 136 mmol/L Critically low 137-145 [facility] Comment on above: Performed By: #### B MP #### [facility] [id number] Femi Macias Urea nitrogen [Mass/Vol] 33.0 mg/dL Critically high 9.0-20.0 [facility] Comment on above: Performed By: #### B MP #### [facility] [address] [address] [address] Femi Macias Urea nitrogen/Creatini ne [Mass ratio] 23.6 mg/mg Normal [facility] Comment on above: Performed By: #### B MP #### [facility] [address] [address] [address] Femi Macias Cardiovascular Lab Reporton 12-12-2018 Cardiovascular Lab Report [facility] [id number] Physician: Gabrielle Quezada, Department of M.D. Medicine Service Date: 12/11/2018 Division of Birthdate: 1950 Cardiology Room #: [facility] Cardiovascular Services [place] [address] Cardiovascular Laboratory Report CLINICAL PRESENTATION: The patient [...] echocardiogram. He was evaluated by Dr. Fountain, [facility] and referred for coronary angiogram. FINAL [...] failure or arrhythmias. 6. Outpatient followup with [facility] and at [facility]. PROCEDURES: Coronary angiogram. INDICATION: Acute [...] infiltrated over the right radial artery. A 6-[employer]arian [employer] Glidesheath slender was placed in right radial artery. Nitroglycerin 200 mcg was administered through the sheath to prevent spasm. All catheter exchanges were made over the [employer] guidewire. A [place] catheter was engaged to right coronary artery. [...] Quezada M.D. Date Trans: 12/12/2018 07:52 A/joo [id number] cc: Quentin Rangel M.D. [address] [id number] Dionisio Fountain M.D. [address] [place] [address] Normal [facility] CBCon 05-01-2018 Erythrocyte distribution width (RBC) [Ratio] 13.9 % Normal 11.5 - 14.5 [facility] Comment on above: Performed By: #### C BC ####[id number] [place] [address] Hematocrit (Bld) [Volume fraction] 25.8 % Low 41.0 - 52.0 [facility] Comment on above: Performed By: #### C BC ####[id number] [place] [address] Hemoglobin (Bld) [Mass/Vol] 8.4 g/dL Low 13.5 - 17.5 [facility] Comment on above: Performed By: #### C BC ####[id number] [place] [address] MCHC (RBC) [Mass/Vol] 32.6 g/dL Normal 32.0 - 36.0 [facility] Comment on above: Performed By: #### C BC ####[id number] [place] [address] MCV (RBC) [Entitic vol] 90 fL Normal 80 - 100 [facility] Comment on above: Performed By: #### C BC ####[id number] [place] [address] Nucleated RBC/100 WBC (Bld) [Ratio] 0.0 /100 WBC Normal 0.0-0.0 [facility] Comment on above: Performed By: #### C BC ####[id number] [place] [address] Platelets (Bld) [#/Vol] 421 10*3/uL Normal 150 - 450 [facility] Comment on above: Performed By: #### C BC ####[id number] [place] [address] RBC (Bld) [#/Vol] 2.86 x10E12/L Low 4.50 - 5.90 [facility] Comment on above: Performed By: #### C BC ####[id number] [place] [address] WBC (Bld) [#/Vol] 10.1 10*3/uL Normal 4.4 - 11.3 [facility] Comment on above: Performed By: #### C BC ####[id number] [place] [address] GLUCOSE-POCTon 05-01-2018 Glucose [Mass/Vol] 117 mg/dL High 74 - 99 [facility] Comment on above: Performed By: #### Romana TOM ####[id number] [place] [address] Nutrition Therapy-Calorie Co unton 05-01-2018 Nutrition Therapy-Calorie Count Assessment Subjective/Objective: Note Type: Calorie Count Note Authored by: Registered Dietitian Hog Operator Pager Number: [phone] Nutrition Note: The patient is a 67 [...] 10:39 by Helen Mclean (HERRERA, RITA) Normal [facility] PT/INRon 05-01-2018 INR Coag (PPP) [Relative time] 1.1 {INR} Normal 0.9 - 1.1 [facility] Comment on above: Performed By: #### P TINR ####[id number] [place] [address] PT Coag (PPP) [Time] 12.7 s Normal 9.7 - 12.7 [facility] Comment on above: Performed By: #### P TINR ####[id number] [place] [address] RENAL FUNCTION PANELon 05-01 Albumin [Mass/Vol] 2.5 g/dL Low 3.4 - 5.0 [facility] Comment on above: Performed By: #### R ENAL ####[id number] [place] [address] Anion gap [Moles/Vol] 13 mmol/L Normal 10 - 20 [facility] Comment on above: Performed By: #### R ENAL ####[id number] [place] [address] Calcium [Mass/Vol] 7.9 mg/dL Low 8.6 - 10.6 [facility] Comment on above: Performed By: #### R ENAL ####[id number] [place] [address] Chloride [Moles/Vol] 102 mmol/L Normal 98 - 107 [facility] Comment on above: Performed By: #### R ENAL ####[id number] [place] [address] Creatinine [Mass/Vol] 0.68 mg/dL Normal 0.50 - 1.30 [facility] Comment on above: Performed By: #### R ENAL ####[id number] [place] [address] GFR- AM. >60 Normal >60 [facility] Comment on above: Result Comment: CALC ULATIONS OF ESTIMATED GFR ARE PERFORMED USING THE MDRD STUDY EQUATION FOR THE IDMS-TRACEABLE CREATININE METHODS. CLIN CHEM 2007;53:766-72 Performed By: #### R ENAL ####[id number] [place] [address] GFR-NON AM. >60 Normal >60 [facility] Comment on above: Performed By: #### R ENAL ####[id number] [place] [address] Glucose [Mass/Vol] 96 mg/dL Normal 74 - 99 [facility] Comment on above: Performed By: #### R ENAL ####[id number] [place] [address] HCO3 (Bld) [Moles/Vol] 26 mmol/L Normal 21 - 32 [facility] Comment on above: Performed By: #### R ENAL ####[id number] [place] [address] Phosphate [Mass/Vol] 2.7 mg/dL Normal 2.5 - 4.9 [facility] Comment on above: Result Comment: The performance characteristics of phosphorus testing in heparinized plasma have been validated by the individual laboratory site where testing is performed. Testing on heparinized plasma is not approved by the FDA; however, such approval is not necessary. Performed By: #### R ENAL ####[id number] [place] [address] Potassium [Moles/Vol] 3.3 mmol/L Low 3.5 - 5.3 [facility] Comment on above: Performed By: #### R ENAL ####[id number] [place] [address] Sodium [Moles/Vol] 138 mmol/L Normal 136 - 145 [facility] Comment on above: Performed By: #### R ENAL ####[id number] [place] [address] Urea nitrogen [Mass/Vol] 12 mg/dL Normal 6 - 23 [facility] Comment on above: Performed By: #### R ENAL ####[id number] [place] [address] CBCon 04-30-2018 Erythrocyte distribution width (RBC) [Ratio] 14.2 % Normal 11.5 - 14.5 [facility] Comment on above: Performed By: #### C BC ####[id number] [place] [address] Hematocrit (Bld) [Volume fraction] 26.6 % Low 41.0 - 52.0 [facility] Comment on above: Performed By: #### C BC ####[id number] [place] [address] Hemoglobin (Bld) [Mass/Vol] 8.7 g/dL Low 13.5 - 17.5 [facility] Comment on above: Performed By: #### C BC ####[id number] [place] [address] MCHC (RBC) [Mass/Vol] 32.7 g/dL Normal 32.0 - 36.0 [facility] Comment on above: Performed By: #### C BC ####[id number] [place] [address] MCV (RBC) [Entitic vol] 91 fL Normal 80 - 100 [facility] Comment on above: Performed By: #### C BC ####[id number] [place] [address] Nucleated RBC/100 WBC (Bld) [Ratio] 0.1 /100 WBC Normal 0.0-0.0 [facility] Comment on above: Performed By: #### C BC ####[id number] [place] [address] Platelets (Bld) [#/Vol] 438 10*3/uL Normal 150 - 450 [facility] Comment on above: Performed By: #### C BC ####[id number] [place] [address] RBC (Bld) [#/Vol] 2.93 x10E12/L Low 4.50 - 5.90 [facility] Comment on above: Performed By: #### C BC ####[id number] [place] [address] WBC (Bld) [#/Vol] 10.2 10*3/uL Normal 4.4 - 11.3 [facility] Comment on above: Performed By: #### C BC ####[id number] [place] [address] Daily Progress Note-Colorect al Surgeryon 04-30-2018 Daily [...] ----- Mn/Dy/Year TimeIntakeOutputNet Apr 30, 2018 6:00 [id number] Apr 29, 2018 10:00 [id number] Apr 29, 2018 2:00 [id number] The Intake and Output Totals for the last 24 hours are: IntakeOutputNet [id number] T PRBPSpO2 Value36.64523464/8399% Date/Time04/30 8: 8: 8: 8: 8:20 Range(36.3C [...] be discharged home tomorrow. López Blake MD [place] [facility]: [id number] Signature/Cosignature/Attesta tion: Attending AttestationI reviewed the resident/fellows [...] Updated: 02-May-2018 09:53 by Nolvia Colmenares) Normal [facility] GLUCOSE-POCTon 04-30-2018 Glucose [Mass/Vol] 121 mg/dL High 74 - 99 [facility] Comment on above: Performed By: #### G VAISHALI ####[id number] [place] [address] Glucose [Mass/Vol] 139 mg/dL High 74 - 99 [facility] Comment on above: Performed By: #### G VAISHALI ####[id number] [place] [address] Glucose [Mass/Vol] 103 mg/dL High 74 - 99 [facility] Comment on above: Performed By: #### G VAISHALI ####[id number] [place] [address] Glucose [Mass/Vol] 113 mg/dL High 74 - 99 [facility] Comment on above: Performed By: #### G VAISHALI ####[id number] [place] [address] RENAL FUNCTION PANELon 04-30 Albumin [Mass/Vol] 2.5 g/dL Low 3.4 - 5.0 [facility] Comment on above: Performed By: #### R ENAL ####[id number] [place] [address] Anion gap [Moles/Vol] 14 mmol/L Normal 10 - 20 [facility] Comment on above: Performed By: #### R ENAL ####[id number] [place] [address] Calcium [Mass/Vol] 7.9 mg/dL Low 8.6 - 10.6 [facility] Comment on above: Performed By: #### R ENAL ####[id number] [place] [address] Chloride [Moles/Vol] 102 mmol/L Normal 98 - 107 [facility] Comment on above: Performed By: #### R ENAL ####[id number] [place] [address] Creatinine [Mass/Vol] 0.64 mg/dL Normal 0.50 - 1.30 [facility] Comment on above: Performed By: #### R ENAL ####[id number] [place] [address] GFR- AM. >60 Normal >60 [facility] Comment on above: Result Comment: CALC ULATIONS OF ESTIMATED GFR ARE PERFORMED USING THE MDRD STUDY EQUATION FOR THE IDMS-TRACEABLE CREATININE METHODS. CLIN CHEM 2007;53:766-72 Performed By: #### R ENAL ####[id number] [place] [address] GFR-NON AM. >60 Normal >60 [facility] Comment on above: Performed By: #### R ENAL ####[id number] [place] [address] Glucose [Mass/Vol] 91 mg/dL Normal 74 - 99 [facility] Comment on above: Performed By: #### R ENAL ####[id number] [place] [address] HCO3 (Bld) [Moles/Vol] 24 mmol/L Normal 21 - 32 [facility] Comment on above: Performed By: #### R ENAL ####[id number] [place] [address] Phosphate [Mass/Vol] 2.8 mg/dL Normal 2.5 - 4.9 [facility] Comment on above: Result Comment: The performance characteristics of phosphorus testing in heparinized plasma have been validated by the individual laboratory site where testing is performed. Testing on heparinized plasma is not approved by the FDA; however, such approval is not necessary. Performed By: #### R ENAL ####[id number] [place] [address] Potassium [Moles/Vol] 3.8 mmol/L Normal 3.5 - 5.3 [facility] Comment on above: Performed By: #### R ENAL ####[id number] [place] [address] Sodium [Moles/Vol] 136 mmol/L Normal 136 - 145 [facility] Comment on above: Performed By: #### R ENAL ####[id number] [place] [address] Urea nitrogen [Mass/Vol] 15 mg/dL Normal 6 - 23 [facility] Comment on above: Performed By: #### R ENAL ####[id number] [place] [address] CBC AND DIFFERENTIALon 04-29 % AUTOMATED IMMATURE GRAN 0.6 % Normal 0.0 - 0.9 [facility] Comment on above: Result Comment: Perc ent differential counts (%) should be interpreted in the context of the absolute cell counts (cells/L). Performed By: #### C BCDF ####[id number] [place] [address] Basophils (Bld) [#/Vol] 0.03 10*3/uL Normal 0.00 - 0.10 [facility] Comment on above: Performed By: #### C BCDF ####[id number] [place] [address] Basophils/100 WBC (Bld) 0.3 % Normal 0.0 - 2.0 [facility] Comment on above: Performed By: #### C BCDF ####[id number] [place] [address] Eosinophils (Bld) [#/Vol] 0.08 10*3/uL Normal 0.00 - 0.70 [facility] Comment on above: Performed By: #### C BCDF ####[id number] [place] [address] Eosinophils/100 WBC (Bld) 0.9 % Normal 0.0 - 6.0 [facility] Comment on above: Performed By: #### C BCDF ####[id number] [place] [address] Erythrocyte distribution width (RBC) [Ratio] 14.4 % Normal 11.5 - 14.5 [facility] Comment on above: Performed By: #### C BCDF ####[id number] [place] [address] Hematocrit (Bld) [Volume fraction] 26.0 % Low 41.0 - 52.0 [facility] Comment on above: Performed By: #### C BCDF ####[id number] [place] [address] Hemoglobin (Bld) [Mass/Vol] 8.6 g/dL Low 13.5 - 17.5 [facility] Comment on above: Performed By: #### C BCDF ####[id number] [place] [address] Lymphocytes (Bld) [#/Vol] 0.85 10*3/uL Low 1.20 - 4.80 [facility] Comment on above: Performed By: #### C BCDF ####[id number] [place] [address] Lymphocytes/100 WBC (Bld) 9.4 % Normal 13.0 - 44.0 [facility] Comment on above: Performed By: #### C BCDF ####[id number] [place] [address] MCHC (RBC) [Mass/Vol] 33.1 g/dL Normal 32.0 - 36.0 [facility] Comment on above: Performed By: #### C BCDF ####[id number] [place] [address] MCV (RBC) [Entitic vol] 91 fL Normal 80 - 100 [facility] Comment on above: Performed By: #### C BCDF ####[id number] [place] [address] Monocytes (Bld) [#/Vol] 1.03 10*3/uL High 0.10 - 1.00 [facility] Comment on above: Performed By: #### C BCDF ####[id number] [place] [address] Monocytes/100 WBC (Bld) 11.4 % Normal 2.0 - 10.0 [facility] Comment on above: Performed By: #### C BCDF ####[id number] [place] [address] Neutrophils (Bld) [#/Vol] 7.03 10*3/uL Normal 1.20 - 7.70 [facility] Comment on above: Performed By: #### C BCDF ####[id number] [place] [address] Neutrophils/100 WBC (Bld) 77.4 % Normal 40.0 - 80.0 [facility] Comment on above: Performed By: #### C BCDF ####[id number] [place] [address] Nucleated RBC/100 WBC (Bld) [Ratio] 0.0 /100 WBC Normal 0.0-0.0 [facility] Comment on above: Performed By: #### C BCDF ####[id number] [place] [address] Platelets (Bld) [#/Vol] 430 10*3/uL Normal 150 - 450 [facility] Comment on above: Performed By: #### C BCDF ####[id number] [place] [address] RBC (Bld) [#/Vol] 2.86 x10E12/L Low 4.50 - 5.90 [facility] Comment on above: Performed By: #### C BCDF ####[id number] [place] [address] WBC (Bld) [#/Vol] 9.1 10*3/uL Normal 4.4 - 11.3 [facility] Comment on above: Performed By: #### C BCDF ####[id number] [place] [address] Consult-Cardiologyon 019 Consult-Cardiolog y Service: Service: Cardiology [...] the EKGs on his chart (also on [place] EKG) with no evidence of AF (only [...] Family hx: HTN Rectal cancer in brother [place] in both parents Social: Current everyday smoker, [...] Known Allergies: Objective: Objective Information: T PRBPSpO2 Value36.01448726/48475% Date/Time04/29 19:: 19: 19: 19:00 Range(36.3C - 37.2C ) (67 - [...] reviewed these laboratory results: Glucose_POCT Trending View [id number] 06:06:00 29-Apr-2018 01:18:00 Glucose-SVHS686 H 148 H Complete Blood Count + [...] volumes and continued for hilar congestion without jnony pulmonary edema. 2. Bibasilar atelectasis and suggestion [...] the EKGs on his chart (also on [place] EKG) with no evidence of AF (only [...] Updated: 30-Apr-2018 11:09 by Cb Quinonez) Normal [facility] Daily Progress Note-Colorect al Surgeryon [...] ----- Mn/Dy/Year TimeIntakeOutputNet Apr 29, 2018 6:00 [id number] Apr 28, 2018 10:00 [id number] Apr 28, 2018 2:00 [id number] The Intake and Output Totals for the last 24 hours are: IntakeOutputNet [id number] T PRBPSpO2 Value36.02045908/92365% Date/Time04/29 8: 8: 8: 8:002 8:00 Range(36.6C [...] - PT rec SN[facility] López Blake MD [place] [facility]: [id number] Signature/Cosignature/Attesta tion: Attending AttestationI saw and evaluated [...] Updated: 29-Apr-2018 19:32 by Nolvia Colmenares) Normal [facility] GLUCOSE-POCTon 04-29-2018 Glucose [Mass/Vol] 140 mg/dL High 74 - 99 [facility] Comment on above: Performed By: #### G VAISHALI ####[id number] [place] [address] Glucose [Mass/Vol] 151 mg/dL High 74 - 99 [facility] Comment on above: Performed By: #### G VAISHALI ####[id number] [place] [address] Glucose [Mass/Vol] 178 mg/dL High 74 - 99 [facility] Comment on above: Performed By: #### G VAISHALI ####[id number] [place] [address] Glucose [Mass/Vol] 148 mg/dL High 74 - 99 [facility] Comment on above: Performed By: #### G VAISHALI ####[id number] [place] [address] Glucose [Mass/Vol] 152 mg/dL High 74 - 99 [facility] Comment on above: Performed By: #### G VAISHALI ####[id number] [place] [address] MAGNESIUMon 04-29-2018 Magnesium [Mass/Vol] 1.71 mg/dL Normal 1.60 - 2.40 [facility] Comment on above: Performed By: #### M G ####[id number] [place] [address] RENAL FUNCTION PANELon 04-29 Albumin [Mass/Vol] 2.4 g/dL Low 3.4 - 5.0 [facility] Comment on above: Performed By: #### R ENAL ####[id number] [place] [address] Anion gap [Moles/Vol] 11 mmol/L Normal 10 - 20 [facility] Comment on above: Performed By: #### R ENAL ####[id number] [place] [address] Calcium [Mass/Vol] 7.8 mg/dL Low 8.6 - 10.6 [facility] Comment on above: Performed By: #### R ENAL ####[id number] [place] [address] Chloride [Moles/Vol] 103 mmol/L Normal 98 - 107 [facility] Comment on above: Performed By: #### R ENAL ####[id number] [place] [address] Creatinine [Mass/Vol] 0.65 mg/dL Normal 0.50 - 1.30 [facility] Comment on above: Performed By: #### R ENAL ####[id number] [place] [address] GFR- AM. >60 Normal >60 [facility] Comment on above: Result Comment: CALC ULATIONS OF ESTIMATED GFR ARE PERFORMED USING THE MDRD STUDY EQUATION FOR THE IDMS-TRACEABLE CREATININE METHODS. CLIN CHEM 2007;53:766-72 Performed By: #### R ENAL ####[id number] [place] [address] GFR-NON AM. >60 Normal >60 [facility] Comment on above: Performed By: #### R ENAL ####[id number] [place] [address] Glucose [Mass/Vol] 170 mg/dL High 74 - 99 [facility] Comment on above: Performed By: #### R ENAL ####[id number] [place] [address] HCO3 (Bld) [Moles/Vol] 26 mmol/L Normal 21 - 32 [facility] Comment on above: Performed By: #### R ENAL ####[id number] [place] [address] Phosphate [Mass/Vol] 2.6 mg/dL Normal 2.5 - 4.9 [facility] Comment on above: Result Comment: The performance characteristics of phosphorus testing in heparinized plasma have been validated by the individual laboratory site where testing is performed. Testing on heparinized plasma is not approved by the FDA; however, such approval is not necessary. Performed By: #### R ENAL ####[id number] [place] [address] Potassium [Moles/Vol] 3.6 mmol/L Normal 3.5 - 5.3 [facility] Comment on above: Performed By: #### R ENAL ####[id number] [place] [address] Sodium [Moles/Vol] 136 mmol/L Normal 136 - 145 [facility] Comment on above: Performed By: #### R ENAL ####[id number] [place] [address] Urea nitrogen [Mass/Vol] 17 mg/dL Normal 6 - 23 [facility] Comment on above: Performed By: #### R ENAL ####[id number] [place] [address] BASIC METABOLIC PANELon 02-0 Anion gap [Moles/Vol] 12 mmol/L Normal 10 - 20 [facility] Comment on above: Performed By: #### B MP ####[id number] [place] [address] Calcium [Mass/Vol] 7.7 mg/dL Low 8.6 - 10.6 [facility] Comment on above: Performed By: #### B MP ####[id number] [place] [address] Chloride [Moles/Vol] 108 mmol/L High 98 - 107 [facility] Comment on above: Performed By: #### B MP ####[id number] [place] [address] Creatinine [Mass/Vol] 0.69 mg/dL Normal 0.50 - 1.30 [facility] Comment on above: Performed By: #### B MP ####[id number] [place] [address] GFR- AM. >60 Normal >60 [facility] Comment on above: Result Comment: CALC ULATIONS OF ESTIMATED GFR ARE PERFORMED USING THE MDRD STUDY EQUATION FOR THE IDMS-TRACEABLE CREATININE METHODS. CLIN CHEM 2007;53:766-72 Performed By: #### B MP ####[id number] [place] [address] GFR-NON AM. >60 Normal >60 [facility] Comment on above: Performed By: #### B MP ####[id number] [place] [address] Glucose [Mass/Vol] 128 mg/dL High 74 - 99 [facility] Comment on above: Performed By: #### B MP ####[id number] [place] [address] HCO3 (Bld) [Moles/Vol] 26 mmol/L Normal 21 - 32 [facility] Comment on above: Performed By: #### B MP ####[id number] [place] [address] Potassium [Moles/Vol] 3.7 mmol/L Normal 3.5 - 5.3 [facility] Comment on above: Performed By: #### B MP ####[id number] [place] [address] Sodium [Moles/Vol] 142 mmol/L Normal 136 - 145 [facility] Comment on above: Performed By: #### B MP ####[id number] [place] [address] Urea nitrogen [Mass/Vol] 16 mg/dL Normal 6 - 23 [facility] Comment on above: Performed By: #### B MP ####[id number] [place] [address] CBCon 04-28-2018 Erythrocyte distribution width (RBC) [Ratio] 14.4 % Normal 11.5 - 14.5 [facility] Comment on above: Performed By: #### C BC ####[id number] [place] [address] Hematocrit (Bld) [Volume fraction] 25.6 % Low 41.0 - 52.0 [facility] Comment on above: Performed By: #### C BC ####[id number] [place] [address] Hemoglobin (Bld) [Mass/Vol] 8.4 g/dL Low 13.5 - 17.5 [facility] Comment on above: Performed By: #### C BC ####[id number] [place] [address] MCHC (RBC) [Mass/Vol] 32.8 g/dL Normal 32.0 - 36.0 [facility] Comment on above: Performed By: #### C BC ####[id number] [place] [address] MCV (RBC) [Entitic vol] 91 fL Normal 80 - 100 [facility] Comment on above: Performed By: #### C BC ####[id number] [place] [address] Nucleated RBC/100 WBC (Bld) [Ratio] 0.0 /100 WBC Normal 0.0-0.0 [facility] Comment on above: Performed By: #### C BC ####[id number] [place] [address] Platelets (Bld) [#/Vol] 408 10*3/uL Normal 150 - 450 [facility] Comment on above: Performed By: #### C BC ####[id number] [place] [address] RBC (Bld) [#/Vol] 2.80 x10E12/L Low 4.50 - 5.90 [facility] Comment on above: Performed By: #### C BC ####[id number] [place] [address] WBC (Bld) [#/Vol] 9.9 10*3/uL Normal 4.4 - 11.3 [facility] Comment on above: Performed By: #### C BC ####[id number] [place] [address] Daily Progress Note-Colorect al Surgeryon 04-28-2018 Daily Progress Note-Colorectal Surgery Service: Colorectal Surgery Subjective Data: ADEN PATEL is a 67 year old Male who is Hospital Day # 16 and POD #4 for exploratory laparotomy, small bowel resection and anastomosis, vicryl mesh closure. no acute events overnight, tolerated clear liquids yesterday, no n/v. Objective Data: Objective Information: ---- Intake and Output ----- Mn/Dy/Year [facility] Apr 28, 2018 6:00 [id number] Apr 27, 2018 10:00 [id number] Apr 27, 2018 2:00 [id number] The Intake and Output Totals for the last 24 hours are: IntakeOutputNet [id number] T PRBPSpO2 Value36.45226529/8197% Date/Time04/28 11: 11: 11: 11: 11:23 Range(36.6C [...] attending physician, Dr. Sanjana Nieto MD PGY1 [place] [facility] Surgery: 85055 Signature/Cosignature/Attesta tion: Attending AttestationI saw and evaluated [...] Last Updated: 29-Apr-2018 19:32 by Nolvia Colmenares) [facility] Discharge [id number] Discharge Profile2 Discharge Orders: Anticipated Discharge Date: Anticipated Discharge [id number] Anticipated Discharge Time12:28 Problem List: Admitting Dx: [...] 30-Apr-2018 09:37:29 Appointments: Follow-Up Appointment 01: Physician/Dept/Dae Yousif Nurse Practitioner for Dr Colmenares Scheduled Date/Djbd85-Mgn-7857 13:30 [facility] [address], [address], [facility] [address] Phone [phone] Commentsfollow up after hospital discharge Electronic Signatures: Hannah Chow (MACHINE EDGE BANDER-AUTO PAINTER) (Signed 28-Apr-2018 13:01) Authored: Discharge Orders, Appointments, Gold Form - Tank Furnace Operator Summary Ezra Coburn ( (Resident)) (Signed 30-Apr-2018 09:37) Authored: Discharge Orders, Hospital Course (Home Care/Gold Form), Provider FINAL REVIEW of Orders Last Updated: 30-Apr-2018 09:37 by Ezra Coburn ( (Resident)) Normal [facility] GLUCOSE-POCTon 04-28-2018 Glucose [Mass/Vol] 161 mg/dL High 74 - 99 [facility] Comment on above: Performed By: #### G VAISHALI ####[id number] [place] [address] Glucose [Mass/Vol] 139 mg/dL High 74 - 99 [facility] Comment on above: Performed By: #### G VAISHALI ####[id number] [place] [address] Glucose [Mass/Vol] 170 mg/dL High 74 - 99 [facility] Comment on above: Performed By: #### G VAISHALI ####[id number] [place] [address] Glucose [Mass/Vol] 148 mg/dL High 74 - 99 [facility] Comment on above: Performed By: #### G VAISHALI ####[id number] [place] [address] Glucose [Mass/Vol] 165 mg/dL High 74 - 99 [facility] Comment on above: Performed By: #### G VAISHALI ####[id number] [place] [address] MAGNESIUMon 04-28-2018 Magnesium [Mass/Vol] 1.70 mg/dL Normal 1.60 - 2.40 [facility] Comment on above: Performed By: #### M G ####[id number] [place] [address] Nutrition Therapy-Follow Up - calorie counton 04-28-2018 Nutrition Therapy-Follow Up - calorie count Assessment Subjective/Objective: Note Type: Follow Up calorie count Note Authored by: Registered Dietitian Hog Operator Pager Number: [phone] Nutrition Note: The patient is a 67 year old Male who is Hospital Day # 15 and POD #3 for exploratory laparotomy, small bowel resection and anastomosis, vicryl mesh closure. Verbal consult from [facility] to start calorie count. RDN hung folder on pt's door. Events reviewed: Pt started on Clinimix E / on 04/21 and advanced to continuous goal rate on 04/26. Transferred from ICU to [facility] on 04/26 and NGT removed. Pt started on CLD and diet advanced to soft this morning. Plan to run calorie count over the weekend to evaluate adequacy of PO intake and discontinue TPN. --> Diet: Soft + Impact AR --> Nutrient needs: 2000kcal/d; 115g pro/d Day 1 04/28/18: pt ate 100% grits and nauruan muffin along with 50% of toast and omelet for breakfast this morning. Objective Information: Intake Output Enteral - Oral 360 mL Urine 800 mL IV Fluids 500 mL Drain 97.5 mL IV Nutrition 1081 mL BM: x1 04/28; x4 04/27 Recent Lab Results: Results: I have reviewed these laboratory results: Glucose_POCT Trending View [id number] 05:27:00 28-Apr-2018 01:24:00 Glucose-MFBF926 H 165 H Basic Metabolic Panel 28-Apr-2018 [...] abd Edema: +1, generalized Estimated Needs: kcals/day: 4627-6034 gms protein/day: 115+ mL fluid/day: 3966-9963 or per MD Nutrition Diagnosis: Diagnosis1 ongoing. [...] ml total volume Coordination of Care with: LIDIA trent, [facility], RN Nutrition Goals: Goals: Nutrition Therapy: nutrition [...] 10:31 by Helen Mclean (HERRERA, RITA) Normal [facility] BASIC METABOLIC PANELon 03-30 Anion gap [Moles/Vol] 12 mmol/L Normal 10 - 20 [facility] Comment on above: Performed By: #### B MP ####[id number] [place] [address] Calcium [Mass/Vol] 7.6 mg/dL Low 8.6 - 10.6 [facility] Comment on above: Performed By: #### B MP ####[id number] [place] [address] Chloride [Moles/Vol] 107 mmol/L Normal 98 - 107 [facility] Comment on above: Performed By: #### B MP ####[id number] [place] [address] Creatinine [Mass/Vol] 0.74 mg/dL Normal 0.50 - 1.30 [facility] Comment on above: Performed By: #### B MP ####[id number] [place] [address] GFR- AM. >60 Normal >60 [facility] Comment on above: Result Comment: CALC ULATIONS OF ESTIMATED GFR ARE PERFORMED USING THE MDRD STUDY EQUATION FOR THE IDMS-TRACEABLE CREATININE METHODS. CLIN CHEM 2007;53:766-72 Performed By: #### B MP ####[id number] [place] [address] GFR-NON AM. >60 Normal >60 [facility] Comment on above: Performed By: #### B MP ####[id number] [place] [address] Glucose [Mass/Vol] 157 mg/dL High 74 - 99 [facility] Comment on above: Performed By: #### B MP ####[id number] [place] [address] HCO3 (Bld) [Moles/Vol] 27 mmol/L Normal 21 - 32 [facility] Comment on above: Performed By: #### B MP ####[id number] [place] [address] Potassium [Moles/Vol] 3.4 mmol/L Low 3.5 - 5.3 [facility] Comment on above: Performed By: #### B MP ####[id number] [place] [address] Sodium [Moles/Vol] 143 mmol/L Normal 136 - 145 [facility] Comment on above: Performed By: #### B MP ####[id number] [place] [address] Urea nitrogen [Mass/Vol] 14 mg/dL Normal 6 - 23 [facility] Comment on above: Performed By: #### B MP ####[id number] [place] [address] CBCon 04-27-2018 Erythrocyte distribution width (RBC) [Ratio] 14.7 % High 11.5 - 14.5 [facility] Comment on above: Performed By: #### C BC ####[id number] [place] [address] Hematocrit (Bld) [Volume fraction] 26.2 % Low 41.0 - 52.0 [facility] Comment on above: Performed By: #### C BC ####[id number] [place] [address] Hemoglobin (Bld) [Mass/Vol] 8.8 g/dL Low 13.5 - 17.5 [facility] Comment on above: Performed By: #### C BC ####[id number] [place] [address] MCHC (RBC) [Mass/Vol] 33.6 g/dL Normal 32.0 - 36.0 [facility] Comment on above: Performed By: #### C BC ####[id number] [place] [address] MCV (RBC) [Entitic vol] 89 fL Normal 80 - 100 [facility] Comment on above: Performed By: #### C BC ####[id number] [place] [address] Nucleated RBC/100 WBC (Bld) [Ratio] 0.0 /100 WBC Normal 0.0-0.0 [facility] Comment on above: Performed By: #### C BC ####[id number] [place] [address] Platelets (Bld) [#/Vol] 407 10*3/uL Normal 150 - 450 [facility] Comment on above: Performed By: #### C BC ####[id number] [place] [address] RBC (Bld) [#/Vol] 2.96 x10E12/L Low 4.50 - 5.90 [facility] Comment on above: Performed By: #### C BC ####[id number] [place] [address] WBC (Bld) [#/Vol] 11.6 10*3/uL High 4.4 - 11.3 [facility] Comment on above: Performed By: #### C BC ####[id number] [place] [address] Daily Progress Note-Colorect al Surgeryon 04-27-2018 Daily [...] Intake and Output ----- Mn/Dy/Year TimeIntakeOutputNet Apr 27, 2018 6:00 [id number] Apr 26, 2018 10:00 [id number] Apr 26, 2018 2:00 [id number] The Intake and Output Totals for the last 24 hours are: IntakeOutputNet [id number] T PRBPSpO2 Value36.63787105/8197% Date/Time04/27 6: 6: 6: 6: 6:53 Range(36.3C [...] discharge Discussed with surgical team Edwin Chow MACHINE EDGE BANDER-AUTO PAINTER [place] [address] Electronic Signatures: Hannah Chow (MACHINE EDGE BANDER-AUTO PAINTER) (Signed 27-Apr-2018 12:16) Authored: Service, Subjective Data, Objective Data, Assessment and Plan, Signature/Cosignature/Attesta tion Last Updated: 27-Apr-2018 12:16 by Hannah Chow (MACHINE EDGE BANDER-AUTO PAINTER) Normal [facility] GLUCOSE-POCTon 04-27-2018 Glucose [Mass/Vol] 146 mg/dL High 74 - 99 [facility] Comment on above: Performed By: #### G VAISHALI ####[id number] [place] [address] Glucose [Mass/Vol] 162 mg/dL High 74 - 99 [facility] Comment on above: Performed By: #### G VAISHALI ####[id number] [place] [address] Glucose [Mass/Vol] 141 mg/dL High 74 - 99 [facility] Comment on above: Performed By: #### G VAISHALI ####[id number] [place] [address] Glucose [Mass/Vol] 163 mg/dL High 74 - 99 [facility] Comment on above: Performed By: #### G VAISHALI ####[id number] [place] [address] Glucose [Mass/Vol] 128 mg/dL High 74 - 99 [facility] Comment on above: Performed By: #### G VAISHALI ####[id number] [place] [address] MAGNESIUMon 04-27-2018 Magnesium [Mass/Vol] 1.79 mg/dL Normal 1.60 - 2.40 [facility] Comment on above: Performed By: #### M G ####[id number] [place] [address] CALCIUM, IONIZEDon 9 CALCIUM,IONIZED 1.11 mmol/L Normal 1.10 - 1.33 [facility] Comment on above: Result Comment: The performance characteristics of ionized calcium tested in heparinized plasma or serum have been validated by the individual laboratory site where testing is performed. Testing on heparinized plasma or serum is not approved by the FDA; however, such approval is not necessary. Performed By: #### I ONC1 ####[id number] [place] [address] CBCon 04-26-2018 Erythrocyte distribution width (RBC) [Ratio] 14.7 % High 11.5 - 14.5 [facility] Comment on above: Performed By: #### C BC ####[id number] [place] [address] Hematocrit (Bld) [Volume fraction] 26.0 % Low 41.0 - 52.0 [facility] Comment on above: Performed By: #### C BC ####[id number] [place] [address] Hemoglobin (Bld) [Mass/Vol] 8.7 g/dL Low 13.5 - 17.5 [facility] Comment on above: Performed By: #### C BC ####[id number] [place] [address] MCHC (RBC) [Mass/Vol] 33.5 g/dL Normal 32.0 - 36.0 [facility] Comment on above: Performed By: #### C BC ####[id number] [place] [address] MCV (RBC) [Entitic vol] 92 fL Normal 80 - 100 [facility] Comment on above: Performed By: #### C BC ####[id number] [place] [address] Nucleated RBC/100 WBC (Bld) [Ratio] 0.0 /100 WBC Normal 0.0-0.0 [facility] Comment on above: Performed By: #### C BC ####[id number] [place] [address] Platelets (Bld) [#/Vol] 364 10*3/uL Normal 150 - 450 [facility] Comment on above: Performed By: #### C BC ####[id number] [place] [address] RBC (Bld) [#/Vol] 2.84 x10E12/L Low 4.50 - 5.90 [facility] Comment on above: Performed By: #### C BC ####[id number] [place] [address] WBC (Bld) [#/Vol] 12.7 10*3/uL High 4.4 - 11.3 [facility] Comment on above: Performed By: #### C BC ####[id number] [place] [address] Erythrocyte distribution width (RBC) [Ratio] 15.3 % High 11.5 - 14.5 [facility] Comment on above: Performed By: #### C BC ####[id number] [place] [address] Hematocrit (Bld) [Volume fraction] 27.1 % Low 41.0 - 52.0 [facility] Comment on above: Performed By: #### C BC ####[id number] [place] [address] Hemoglobin (Bld) [Mass/Vol] 8.5 g/dL Low 13.5 - 17.5 [facility] Comment on above: Performed By: #### C BC ####[id number] [place] [address] MCHC (RBC) [Mass/Vol] 31.4 g/dL Low 32.0 - 36.0 [facility] Comment on above: Performed By: #### C BC ####[id number] [place] [address] MCV (RBC) [Entitic vol] 97 fL Normal 80 - 100 [facility] Comment on above: Performed By: #### C BC ####[id number] [place] [address] Nucleated RBC/100 WBC (Bld) [Ratio] 0.0 /100 WBC Normal 0.0-0.0 [facility] Comment on above: Performed By: #### C BC ####[id number] [place] [address] Platelets (Bld) [#/Vol] 321 10*3/uL Normal 150 - 450 [facility] Comment on above: Performed By: #### C BC ####[id number] [place] [address] RBC (Bld) [#/Vol] 2.78 x10E12/L Low 4.50 - 5.90 [facility] Comment on above: Performed By: #### C BC ####[id number] [place] [address] WBC (Bld) [#/Vol] 13.4 10*3/uL High 4.4 - 11.3 [facility] Comment on above: Performed By: #### C BC ####[id number] [place] [address] COAGULATION SCREENon 019 aPTT Coag (Bld) [Time] 31 s Normal 28 - 38 [facility] Comment on above: Result Comment: THE APTT IS NO LONGER USED FOR MONITORING UNFRACTIONATED HEPARIN THERAPY. FOR MONITORING HEPARIN THERAPY, USE THE HEPARIN ASSAY. Performed By: #### C OAGS ####[id number] [place] [address] INR Coag (PPP) [Relative time] 1.1 {INR} Normal 0.9 - 1.1 [facility] Comment on above: Performed By: #### C OAGS ####[id number] [place] [address] PT Coag (PPP) [Time] 11.8 s Normal 9.7 - 12.7 [facility] Comment on above: Performed By: #### C OAGS ####[id number] [place] [address] Daily Progress Note - Critic al Careon 04-26-2018 Daily Progress Note - Critical Care Subjective Data: ID Statement: ADEN PATEL is a 67 year old Male who is Hospital Day # 14 and ICU Day #3 and POD #2 for exploratory laparotomy, small bowel resection and anastomosis, vicryl mesh closure. Objective Data: Objective Information T PRBPSpO2 [id number]/8896% Date/Time04/26 4: 7: 7: 7: 7:00 Range(36C - 36.5C ) (59 - 80 ) (17 - 26 ) (98 - 168 )/ (62 - 97 ) (95% - 99% ) As of 26-Apr-2018 04:00:00, patient is on 2 L/min of oxygen via nasal cannula. Pain reported at 04/25 13:00: 3 Pain reported at 04/26 4:00: 0 Direct Arterial Blood Pressure Meyiflgb18(91 - 141)04/25 12:00 Diastolic (mm Hg)77(52 - 77)04/25 12:00 Mean (mm Hg)82(70 - 84)04/25 12:00 Pulse Pressure (mm Hg)14(14 - 80)04/25 12:00 ---- Intake and Output ----- Mn/Dy/Year TimeIntakeOutputNet Apr 26, 2018 6:00 [id number] Apr 25, 2018 10:00 [id number] Apr 25, 2018 2:00 [id number] The Intake and Output Totals for the last 24 hours are: IntakeOutputNet [id number] Drain and tube details (included in I&O [...] (per patient) , evidence of old inferior [place] on EKG. On 04/22 AM he went [...] - placed 04/21/2018 Dispo: Floor Team phone: [phone] Code Status: Code StatusFull Code Signature/Cosignature/Attesta tion: [...] 26-Apr-2018 14:05 by Davis Del Valle) Normal [facility] GLUCOSE-POCTon 04-26-2018 Glucose [Mass/Vol] 164 mg/dL High 74 - 99 [facility] Comment on above: Performed By: #### G VAISHALI ####[id number] [place] [address] Glucose [Mass/Vol] 122 mg/dL High 74 - 99 [facility] Comment on above: Performed By: #### G VAISHALI ####[id number] [place] [address] Glucose [Mass/Vol] 158 mg/dL High 74 - 99 [facility] Comment on above: Performed By: #### G VAISHALI ####[id number] [place] [address] Glucose [Mass/Vol] 123 mg/dL High 74 - 99 [facility] Comment on above: Performed By: #### G VAISHALI ####[id number] [place] [address] Glucose [Mass/Vol] 180 mg/dL High 74 - 99 [facility] Comment on above: Performed By: #### G VAISHALI ####[id number] [place] [address] Glucose [Mass/Vol] 152 mg/dL High 74 - 99 [facility] Comment on above: Performed By: #### G VAISHALI ####[id number] [place] [address] MAGNESIUMon 04-26-2018 Magnesium [Mass/Vol] 2.20 mg/dL Normal 1.60 - 2.40 [facility] Comment on above: Performed By: #### M G ####[id number] [place] [address] Nutrition Therapy-Noteon Nutrition Therapy-Note Assessment Subjective/Objective: Note Type: Note Note Authored by: Engineer Byproduct Upholsterer [employer] Note: reviewed by Registered Dietitian Hog Operator Pager Number: [phone] Nutrition Note: The patient is a 67 [...] 364 RDW-CV 14.7 H Glucose_POCT Trending View Arzokv95-Jtl-6023 11:50:00 26-Apr-2018 08:28:00 26-Apr-2018 03:57:00 26-Apr-2018 00:36:00 25-Apr-2018 18:46:00 25-Apr-2018 16:53:00 Glucose-UHEZ964 H 123 H 180 H 152 H [...] NPO, Routine ., 24-Apr-2018 Estimated Needs: kcals/day: 4165-6865 gms protein/day: 120+ mL fluid/day: 0765-6358 or per MD Nutrition Therapy Recommendations: Nutrition Therapy Recommendations: Please [...] Recommendations, Parenteral Nutrition Recommendations Michelle Becker (RDN, RITA) (Signed 26-Apr-2018 15:26) Authored: Assessment Subjective/Objective, Parenteral Nutrition Recommendations, Time Spent/Nutrition Support Last Updated: 26-Apr-2018 15:26 by Michelle Becker (ENMANUELN, RITA) Normal [facility] RENAL FUNCTION PANELon 04-26 Glucose [Mass/Vol] Canceled Normal [facility] Comment on above: Performed By: #### R ENAL ####[id number] [place] [address] Albumin [Mass/Vol] 2.1 g/dL Low 3.4 - 5.0 [facility] Comment on above: Performed By: #### R ENAL ####[id number] [place] [address] Anion gap [Moles/Vol] 13 mmol/L Normal 10 - 20 [facility] Comment on above: Performed By: #### R ENAL ####[id number] [place] [address] Calcium [Mass/Vol] 7.4 mg/dL Low 8.6 - 10.6 [facility] Comment on above: Performed By: #### R ENAL ####[id number] [place] [address] Chloride [Moles/Vol] 104 mmol/L Normal 98 - 107 [facility] Comment on above: Performed By: #### R ENAL ####[id number] [place] [address] Creatinine [Mass/Vol] 0.80 mg/dL Normal 0.50 - 1.30 [facility] Comment on above: Performed By: #### R ENAL ####[id number] [place] [address] GFR- AM. >60 Normal >60 [facility] Comment on above: Result Comment: CALC ULATIONS OF ESTIMATED GFR ARE PERFORMED USING THE MDRD STUDY EQUATION FOR THE IDMS-TRACEABLE CREATININE METHODS. CLIN CHEM 2007;53:766-72 Performed By: #### R ENAL ####[id number] [place] [address] GFR-NON AM. >60 Normal >60 [facility] Comment on above: Performed By: #### R ENAL ####[id number] [place] [address] HCO3 (Bld) [Moles/Vol] 25 mmol/L Normal 21 - 32 [facility] Comment on above: Performed By: #### R ENAL ####[id number] [place] [address] Phosphate [Mass/Vol] 4.2 mg/dL Normal 2.5 - 4.9 [facility] Comment on above: Result Comment: The performance characteristics of phosphorus testing in heparinized plasma have been validated by the individual laboratory site where testing is performed. Testing on heparinized plasma is not approved by the FDA; however, such approval is not necessary. Performed By: #### R ENAL ####[id number] [place] [address] Potassium [Moles/Vol] 4.7 mmol/L Normal 3.5 - 5.3 [facility] Comment on above: Performed By: #### R ENAL ####[id number] [place] [address] Sodium [Moles/Vol] 137 mmol/L Normal 136 - 145 [facility] Comment on above: Performed By: #### R ENAL ####[id number] [place] [address] Urea nitrogen [Mass/Vol] 19 mg/dL Normal 6 - 23 [facility] Comment on above: Performed By: #### R ENAL ####[id number] [place] [address] CALCIUM, IONIZEDon 9 CALCIUM,IONIZED 1.09 mmol/L Low 1.10 - 1.33 [facility] Comment on above: Result Comment: The performance characteristics of ionized calcium tested in heparinized plasma or serum have been validated by the individual laboratory site where testing is performed. Testing on heparinized plasma or serum is not approved by the FDA; however, such approval is not necessary. Performed By: #### I ONC1 ####[id number] [place] [address] CBCon 04-25-2018 Erythrocyte distribution width (RBC) [Ratio] 14.8 % High 11.5 - 14.5 [facility] Comment on above: Performed By: #### C BC ####[id number] [place] [address] Hematocrit (Bld) [Volume fraction] 29.5 % Low 41.0 - 52.0 [facility] Comment on above: Performed By: #### C BC ####[id number] [place] [address] Hemoglobin (Bld) [Mass/Vol] 9.5 g/dL Low 13.5 - 17.5 [facility] Comment on above: Performed By: #### C BC ####[id number] [place] [address] MCHC (RBC) [Mass/Vol] 32.2 g/dL Normal 32.0 - 36.0 [facility] Comment on above: Performed By: #### C BC ####[id number] [place] [address] MCV (RBC) [Entitic vol] 95 fL Normal 80 - 100 [facility] Comment on above: Performed By: #### C BC ####[id number] [place] [address] Nucleated RBC/100 WBC (Bld) [Ratio] 0.0 /100 WBC Normal 0.0-0.0 [facility] Comment on above: Performed By: #### C BC ####[id number] [place] [address] Platelets (Bld) [#/Vol] 286 10*3/uL Normal 150 - 450 [facility] Comment on above: Performed By: #### C BC ####[id number] [place] [address] RBC (Bld) [#/Vol] 3.10 x10E12/L Low 4.50 - 5.90 [facility] Comment on above: Performed By: #### C BC ####[id number] [place] [address] WBC (Bld) [#/Vol] 16.6 10*3/uL High 4.4 - 11.3 [facility] Comment on above: Performed By: #### C BC ####[id number] [place] [address] COAGULATION SCREENon 019 aPTT Coag (Bld) [Time] 30 s Normal 28 - 38 [facility] Comment on above: Result Comment: THE APTT IS NO LONGER USED FOR MONITORING UNFRACTIONATED HEPARIN THERAPY. FOR MONITORING HEPARIN THERAPY, USE THE HEPARIN ASSAY. Performed By: #### C OAGS ####[id number] [place] [address] INR Coag (PPP) [Relative time] 1.1 {INR} Normal 0.9 - 1.1 [facility] Comment on above: Performed By: #### C OAGS ####[id number] [place] [address] PT Coag (PPP) [Time] 11.7 s Normal 9.7 - 12.7 [facility] Comment on above: Performed By: #### C OAGS ####[id number] [place] [address] Clinical Event Note-Postop Radha magdaleno 04-25-2018 Clinical [...] mir Clara Eaton MD PGY1 General Surgery [place] Service [address] Electronic Signatures: Clara Eaton ( (Resident)) (Signed 25-Apr-2018 02:05) Authored: Event Last Updated: 25-Apr-2018 02:05 by Clara Eaton ( (Resident)) Normal [facility] Daily Progress Note - Critic [...] HDS. Objective Data: Objective Information T PRBPSpO2 Value37.01841252/7297% Date/Time04/25 4: 6: 6: 6: 6:00 Range(36.9C - 37.2C ) (60 - 109 ) (17 - 33 ) (93 - 158 )/ (58 - 98 ) (91% - 98% ) As of 25-Apr-2018 04:00:00, patient is on 3% oxygen via nasal cannula. Highest temp of 37.2 C was recorded at 04/25 4:00 Pain reported at 04/25 4:00: 0 Direct Arterial Blood Pressure Dfufwnox196(99 - 178)04/25 6:00 Diastolic (mm Hg)58(49 - 79)04/25 6:00 Mean (mm Hg)80(65 - 107)04/25 6:00 Pulse Pressure (mm Hg)76(24 - 105)04/25 6:00 Qxvxwfba254(99 - 178)04/24 14:55 Diastolic (mm Hg)76(49 - 79)04/24 14:55 Pulse Pressure (mm Hg)97(24 - 105)04/24 14:55 ---- Intake and Output ----- Mn/Dy/Year TimeIntakeOutputNet Apr 25, 2018 6:00 am930.8891316 Apr 24, 2018 10:00 [id number] Apr 24, 2018 2:00 [id number] The Intake and Output Totals for the last 24 hours are: IntakeOutputNet [id number] Drain and tube details (included in I&O [...] (per patient) , evidence of old inferior [place] on EKG. On 04/22 AM he went [...] heparin PPI Lines: L PIV PICC line [place] > d/c today mir > d/c today Dispo: SICU purple team care for now Team phone: [phone] Seen and d/w Dr. Reymundo Wilkinson MD [...] Updated: 25-Apr-2018 14:14 by Davis Del Valle) [facility] Daily Progress Note-Colorect al Surgeryon 04-25-2018 [...] night. Objective Data: Objective Information: T PRBPSpO2 Value36.90095715/7597% Date/Time04/25 12: 14: 14: 13: 14:00 Range(36.2C [...] reviewed these laboratory results: Glucose_POCT Trending View Rtpsbq07-Lmu-9068 12:17:00 25-Apr-2018 08:26:00 Glucose-HBKK232 H 179 H Coagulation Screen 25-Apr-2018 02:33:00 [...] Dr. Colmenares. Marquez Bronson General Surgery, PGY-2 [place] CRS [address] Signature/Cosignature/Attesta tion: Attending AttestationI saw and evaluated [...] Updated: 27-Apr-2018 16:45 by Nolvia Colmenares) Normal [facility] GLUCOSE-POCTon 04-25-2018 Glucose [Mass/Vol] 119 mg/dL High 74 - 99 [facility] Comment on above: Performed By: #### G VAISHALI ####[id number] [place] [address] Glucose [Mass/Vol] 154 mg/dL High 74 - 99 [facility] Comment on above: Performed By: #### G VAISHALI ####[id number] [place] [address] Glucose [Mass/Vol] 130 mg/dL High 74 - 99 [facility] Comment on above: Performed By: #### G VAISHALI ####[id number] [place] [address] Glucose [Mass/Vol] 179 mg/dL High 74 - 99 [facility] Comment on above: Performed By: #### G VAISHALI ####[id number] [place] [address] Glucose [Mass/Vol] 138 mg/dL High 74 - 99 [facility] Comment on above: Performed By: #### G VAISHALI ####[id number] [place] [address] MAGNESIUMon 04-25-2018 Magnesium [Mass/Vol] 2.38 mg/dL Normal 1.60 - 2.40 [facility] Comment on above: Performed By: #### M G ####[id number] [place] [address] RENAL FUNCTION PANELon 04-25 Albumin [Mass/Vol] 2.2 g/dL Low 3.4 - 5.0 [facility] Comment on above: Performed By: #### R ENAL ####[id number] [place] [address] Anion gap [Moles/Vol] 11 mmol/L Normal 10 - 20 [facility] Comment on above: Performed By: #### R ENAL ####[id number] [place] [address] Calcium [Mass/Vol] 7.3 mg/dL Low 8.6 - 10.6 [facility] Comment on above: Performed By: #### R ENAL ####[id number] [place] [address] Chloride [Moles/Vol] 108 mmol/L High 98 - 107 [facility] Comment on above: Performed By: #### R ENAL ####[id number] [place] [address] Creatinine [Mass/Vol] 0.88 mg/dL Normal 0.50 - 1.30 [facility] Comment on above: Performed By: #### R ENAL ####[id number] [place] [address] GFR- AM. >60 Normal >60 [facility] Comment on above: Result Comment: CALC ULATIONS OF ESTIMATED GFR ARE PERFORMED USING THE MDRD STUDY EQUATION FOR THE IDMS-TRACEABLE CREATININE METHODS. CLIN CHEM 2007;53:766-72 Performed By: #### R ENAL ####[id number] [place] [address] GFR-NON AM. >60 Normal >60 [facility] Comment on above: Performed By: #### R ENAL ####[id number] [place] [address] Glucose [Mass/Vol] 159 mg/dL High 74 - 99 [facility] Comment on above: Performed By: #### R ENAL ####[id number] [place] [address] HCO3 (Bld) [Moles/Vol] 25 mmol/L Normal 21 - 32 [facility] Comment on above: Performed By: #### R ENAL ####[id number] [place] [address] Phosphate [Mass/Vol] 3.0 mg/dL Normal 2.5 - 4.9 [facility] Comment on above: Result Comment: The performance characteristics of phosphorus testing in heparinized plasma have been validated by the individual laboratory site where testing is performed. Testing on heparinized plasma is not approved by the FDA; however, such approval is not necessary. Performed By: #### R ENAL ####[id number] [place] [address] Potassium [Moles/Vol] 4.3 mmol/L Normal 3.5 - 5.3 [facility] Comment on above: Result Comment: MILD HEMOLYSIS DETECTED. The result may be falsely elevated due to hemolysis or other interferents. Clinical correlation is recommended. Repeat testing may be considered. Performed By: #### R ENAL ####[id number] [place] [address] Sodium [Moles/Vol] 140 mmol/L Normal 136 - 145 [facility] Comment on above: Performed By: #### R ENAL ####[id number] [place] [address] Urea nitrogen [Mass/Vol] 18 mg/dL Normal 6 - 23 [facility] Comment on above: Performed By: #### R ENAL ####[id number] [place] [address] ARTERIAL FULL PANELon 2018 Anion gap [Moles/Vol] 8 mmol/L Low 10 - 25 [facility] Comment on above: Performed By: #### A FPA3 ####[id number] [place] [address] BASE EXCESS-BLOOD 4.0 mmol/L High -2.0 - 3.0 [facility] Comment on above: Performed By: #### A FPA3 ####[id number] [place] [address] CALCIUM,IONIZED 1.13 mmol/L Normal 1.10 - 1.33 [facility] Comment on above: Performed By: #### A FPA3 ####[id number] [place] [address] Chloride [Moles/Vol] 107 mmol/L Normal 98 - 107 [facility] Comment on above: Performed By: #### A FPA3 ####[id number] [place] [address] Glucose [Mass/Vol] 157 mg/dL High 74 - 99 [facility] Comment on above: Performed By: #### A FPA3 ####[id number] [place] [address] Hematocrit (Bld) [Volume fraction] 29.0 % Low 41.0 - 52.0 [facility] Comment on above: Performed By: #### A FPA3 ####[id number] [place] [address] HGB,CALCULATED 9.9 g/dL Low 13.5 - 17.5 [facility] Comment on above: Performed By: #### A FPA3 ####[id number] [place] [address] Lactate [Moles/Vol] 1.4 mmol/L Normal 0.4 - 2.0 [facility] Comment on above: Performed By: #### A FPA3 ####[id number] [place] [address] Oxygen (Bld) [Partial pressure] 67 mm[Hg] Low 85 - 95 [facility] Comment on above: Performed By: #### A FPA3 ####[id number] [place] [address] PCO2 35 mmHg Low 38 - 42 [facility] Comment on above: Performed By: #### A FPA3 ####[id number] [place] [address] pH (Bld) 7.50 [pH] High 7.38 - 7.42 [facility] Comment on above: Performed By: #### A FPA3 ####[id number] [place] [address] Potassium [Moles/Vol] 3.2 mmol/L Low 3.5 - 5.3 [facility] Comment on above: Performed By: #### A FPA3 ####[id number] [place] [address] RBC (Bld) [#/Vol] 27.3 mmol/L High 22.0 - 26.0 [facility] Comment on above: Performed By: #### A FPA3 ####[id number] [place] [address] SO2 98 % Normal 94 - 100 [facility] Comment on above: Performed By: #### A FPA3 ####[id number] [place] [address] Sodium [Moles/Vol] 139 mmol/L Normal 136 - 145 [facility] Comment on above: Performed By: #### A FPA3 ####[id number] [place] [address] CALCIUM, IONIZEDon 9 CALCIUM,IONIZED 1.13 mmol/L Normal 1.10 - 1.33 [facility] Comment on above: Result Comment: The performance characteristics of ionized calcium tested in heparinized plasma or serum have been validated by the individual laboratory site where testing is performed. Testing on heparinized plasma or serum is not approved by the FDA; however, such approval is not necessary. Performed By: #### I ONC1 ####[id number] [place] [address] CALCIUM,IONIZED Canceled Normal [facility] Comment on above: Order Comment: [...] not necessary. Performed By: #### I ONC1 ####[id number] [place] [address] CALCIUM,IONIZED 1.17 mmol/L Normal 1.10 - 1.33 [facility] Comment on above: Result Comment: The performance characteristics of ionized calcium tested in heparinized plasma or serum have been validated by the individual laboratory site where testing is performed. Testing on heparinized plasma or serum is not approved by the FDA; however, such approval is not necessary. Performed By: #### I ONC1 ####[id number] [place] [address] CBCon 04-24-2018 Erythrocyte distribution width (RBC) [Ratio] 14.8 % High 11.5 - 14.5 [facility] Comment on above: Performed By: #### C BC ####[id number] [place] [address] Hematocrit (Bld) [Volume fraction] 32.2 % Low 41.0 - 52.0 [facility] Comment on above: Performed By: #### C BC ####[id number] [place] [address] Hemoglobin (Bld) [Mass/Vol] 10.2 g/dL Low 13.5 - 17.5 [facility] Comment on above: Performed By: #### C BC ####[id number] [place] [address] MCHC (RBC) [Mass/Vol] 31.7 g/dL Low 32.0 - 36.0 [facility] Comment on above: Performed By: #### C BC ####[id number] [place] [address] MCV (RBC) [Entitic vol] 95 fL Normal 80 - 100 [facility] Comment on above: Performed By: #### C BC ####[id number] [place] [address] Nucleated RBC/100 WBC (Bld) [Ratio] 0.0 /100 WBC Normal 0.0-0.0 [facility] Comment on above: Performed By: #### C BC ####[id number] [place] [address] Platelets (Bld) [#/Vol] 320 10*3/uL Normal 150 - 450 [facility] Comment on above: Performed By: #### C BC ####[id number] [place] [address] RBC (Bld) [#/Vol] 3.39 x10E12/L Low 4.50 - 5.90 [facility] Comment on above: Performed By: #### C BC ####[id number] [place] [address] WBC (Bld) [#/Vol] 15.3 10*3/uL High 4.4 - 11.3 [facility] Comment on above: Performed By: #### C BC ####[id number] [place] [address] Erythrocyte distribution width (RBC) [Ratio] 14.6 % High 11.5 - 14.5 [facility] Comment on above: Performed By: #### C BC ####[id number] [place] [address] Hematocrit (Bld) [Volume fraction] 27.1 % Low 41.0 - 52.0 [facility] Comment on above: Performed By: #### C BC ####[id number] [place] [address] Hemoglobin (Bld) [Mass/Vol] 9.3 g/dL Low 13.5 - 17.5 [facility] Comment on above: Performed By: #### C BC ####[id number] [place] [address] MCHC (RBC) [Mass/Vol] 34.3 g/dL Normal 32.0 - 36.0 [facility] Comment on above: Performed By: #### C BC ####[id number] [place] [address] MCV (RBC) [Entitic vol] 89 fL Normal 80 - 100 [facility] Comment on above: Performed By: #### C BC ####[id number] [place] [address] Nucleated RBC/100 WBC (Bld) [Ratio] 0.1 /100 WBC Normal 0.0-0.0 [facility] Comment on above: Performed By: #### C BC ####[id number] [place] [address] Platelets (Bld) [#/Vol] 250 10*3/uL Normal 150 - 450 [facility] Comment on above: Performed By: #### C BC ####[id number] [place] [address] RBC (Bld) [#/Vol] 3.03 x10E12/L Low 4.50 - 5.90 [facility] Comment on above: Performed By: #### C BC ####[id number] [place] [address] WBC (Bld) [#/Vol] 15.1 10*3/uL High 4.4 - 11.3 [facility] Comment on above: Performed By: #### C BC ####[id number] [place] [address] Erythrocyte distribution width (RBC) [Ratio] 15.0 % High 11.5 - 14.5 [facility] Comment on above: Performed By: #### C BC ####[id number] [place] [address] Hematocrit (Bld) [Volume fraction] 23.8 % Low 41.0 - 52.0 [facility] Comment on above: Performed By: #### C BC ####[id number] [place] [address] Hemoglobin (Bld) [Mass/Vol] 7.7 g/dL Low 13.5 - 17.5 [facility] Comment on above: Performed By: #### C BC ####[id number] [place] [address] MCHC (RBC) [Mass/Vol] 32.4 g/dL Normal 32.0 - 36.0 [facility] Comment on above: Performed By: #### C BC ####[id number] [place] [address] MCV (RBC) [Entitic vol] 93 fL Normal 80 - 100 [facility] Comment on above: Performed By: #### C BC ####[id number] [place] [address] Nucleated RBC/100 WBC (Bld) [Ratio] 0.0 /100 WBC Normal 0.0-0.0 [facility] Comment on above: Performed By: #### C BC ####[id number] [place] [address] Platelets (Bld) [#/Vol] 200 10*3/uL Normal 150 - 450 [facility] Comment on above: Performed By: #### C BC ####[id number] [place] [address] RBC (Bld) [#/Vol] 2.55 x10E12/L Low 4.50 - 5.90 [facility] Comment on above: Performed By: #### C BC ####[id number] [place] [address] WBC (Bld) [#/Vol] 14.0 10*3/uL High 4.4 - 11.3 [facility] Comment on above: Performed By: #### C BC ####[id number] [place] [address] COAGULATION SCREENon 019 aPTT Coag (Bld) [Time] 30 s Normal 28 - 38 [facility] Comment on above: Result Comment: THE APTT IS NO LONGER USED FOR MONITORING UNFRACTIONATED HEPARIN THERAPY. FOR MONITORING HEPARIN THERAPY, USE THE HEPARIN ASSAY. Performed By: #### C OAGS ####[id number] [place] [address] INR Coag (PPP) [Relative time] 1.0 {INR} Normal 0.9 - 1.1 [facility] Comment on above: Performed By: #### C OAGS ####[id number] [place] [address] PT Coag (PPP) [Time] 11.5 s Normal 9.7 - 12.7 [facility] Comment on above: Performed By: #### C OAGS ####[id number] [place] [address] aPTT Coag (Bld) [Time] 31 s Normal 28 - 38 [facility] Comment on above: Result Comment: THE APTT IS NO LONGER USED FOR MONITORING UNFRACTIONATED HEPARIN THERAPY. FOR MONITORING HEPARIN THERAPY, USE THE HEPARIN ASSAY. Performed By: #### C OAGS ####[id number] [place] [address] INR Coag (PPP) [Relative time] 1.1 {INR} Normal 0.9 - 1.1 [facility] Comment on above: Performed By: #### C OAGS ####[id number] [place] [address] PT Coag (PPP) [Time] 12.2 s Normal 9.7 - 12.7 [facility] Comment on above: Performed By: #### C OAGS ####[id number] [place] [address] Clinical Event Note-Return f rom ORon 04-24-2018 [...] - IV pain medications -continue same ATB (Keren Fluc) -Haldol/Precedex for agitation. -ABD binder at all times -try to connect drains to suction. -see SICU daily progress note for remainder of plan Nolvia Ayala CNP Electronic Signatures: Nolvia Ayala (MACHINE EDGE BANDER-AUTO PAINTER) (Signed 24-Apr-2018 18:53) Authored: Event Last Updated: 24-Apr-2018 18:53 by Nolvia Ayala (MACHINE EDGE BANDER-AUTO PAINTER) Normal [facility] Daily Progress Note - Critic [...] well. Objective Data: Objective Information T PRBPSpO2 Value36.99625265/8495% Date/Time04/24 4: 6: 6: 6: 6:00 Range(36C [...] 04/24 4:00: 0 Direct Arterial Blood Pressure Mmhsvmca411(144 - 183)04/24 6:00 Diastolic (mm Hg)69(64 - 99)04/24 6:00 Mean (mm Hg)101(68 - 230)04/24 6:00 Pulse Pressure (mm Hg)103(69 - 108)04/24 6:00 ---- Intake and Output ----- Mn/Dy/[facility] Apr 24, 2018 6:00 [id number] Apr 23, 2018 10:00 [id number] Apr 23, 2018 2:00 [id number] The Intake and Output Totals for the last 24 hours are: IntakeOutunm [facility] centerNet [id number] Drain and tube details (included in I&O [...] Blood Gas Results 04/24/2018 02:24 pO267 pH7.50 cDA603 SO298 Base Excess4.0 Uhjondtihyj11.3 Assessment and Plan: Daily Risk Screen: Does [...] (per patient) , evidence of old inferior [place] on EKG. On 04/22 AM he went [...] heparin PPI Lines: L PIV PICC line [place] mir Dispo: SICU purple team care for now Team phone: [phone] Seen and d/w Dr. Kulwant Wilkinson MD [...] Updated: 24-Apr-2018 14:51 by Trav Blum) Normal [facility] Daily Progress Note-Colorect al Surgeryon [...] night. Objective Data: Objective Information: T PRBPSpO2 [id number]/8093% Date/Time04/24 8: 8: 8: 8: 8:00 Range(36C - 37.1C ) (62 - 80 ) (15 - 23 ) (139 - 165 )/ (79 - 125 ) (88% - 98% ) Highest temp of 37.1 C was recorded at 04/24 0:00 Pain reported at 04/24 4:00: 0 ---- Intake and Output ----- Mn/Dy/Year TimeIntakeOutputNet Apr 24, 2018 6:00 [id number] Apr 23, 2018 10:00 [id number] Apr 23, 2018 2:00 [id number] The Intake and Output Totals for the last 24 hours are: IntakeOutputNet [id number] Intake Output IV Fluids 2350 mL Urine [...] reviewed these laboratory results: Glucose_POCT Trending View [id number] 08:17:00 24-Apr-2018 04:14:00 24-Apr-2018 00:11:00 Glucose-NPOB354 H 155 H 162 H Arterial Full [...] Dr. Colmenares. Marquez [facility], PGY-2 [place]S [address] Signature/Cosignature/Attesta tion: Attending AttestationI saw and evaluated [...] Updated: 25-Apr-2018 13:11 by Nolvia Colmenares) Normal [facility] FIBRINOGENon 04-24-2018 FIBRINOGEN 482 mg/dL High 200 - 400 [facility] Comment on above: Performed By: #### F IB ####[id number] [place] [address] FIBRINOGEN 409 mg/dL High 200 - 400 [facility] Comment on above: Performed By: #### F IB ####[id number] [place] [address] GLUCOSE-POCTon 04-24-2018 Glucose [Mass/Vol] 171 mg/dL High 74 - 99 [facility] Comment on above: Performed By: #### G VAISHALI ####[id number] [place] [address] Glucose [Mass/Vol] 134 mg/dL High 74 - 99 [facility] Comment on above: Performed By: #### G VAISHALI ####[id number] [place] [address] Glucose [Mass/Vol] 163 mg/dL High 74 - 99 [facility] Comment on above: Performed By: #### G VAISHALI ####[id number] [place] [address] Glucose [Mass/Vol] 155 mg/dL High 74 - 99 [facility] Comment on above: Performed By: #### G VAISHALI ####[id number] [place] [address] Glucose [Mass/Vol] 162 mg/dL High 74 - 99 [facility] Comment on above: Performed By: #### G VAISHALI ####[id number] [place] [address] MAGNESIUMon 04-24-2018 Magnesium [Mass/Vol] 2.10 mg/dL Normal 1.60 - 2.40 [facility] Comment on above: Performed By: #### M G ####[id number] [place] [address] Magnesium [Mass/Vol] 1.87 mg/dL Normal 1.60 - 2.40 [facility] Comment on above: Performed By: #### M G ####[id number] [place] [address] OPERATIVE REPORTon 9 OPERATIVE REPORT [facility] [address] [place] [address] Patient Name: ADEN PATEL : 1950 Date of Service: 04/24/2018 Patient Location: [id number] Patient Type: I Surgeon: Nolvia Colmenares MD Report Type: Operative Reports PREOPERATIVE DIAGNOSIS: Open abdomen and small bowel in discontinuity, ischemic small bowel, status post intraabdominal bleed. POSTOPERATIVE DIAGNOSIS: Open abdomen and small bowel in discontinuity, ischemic small bowel, status post intraabdominal bleed. OPERATION/PROCEDURE: Exploratory laparotomy, small bowel resection with primary anastomosis, Vicryl mesh closure of the abdomen. SURGEON: Nolvia Colmenares MD. STENCIL SPRAYER(S): 1. Dr. Blake. 2. Dr. Wilson. 3. [...] as described above. Dr. Blake was the pediatric medical assistant. Nolvia Colmenares MD EST TT: 04/28/2018 04:27 PM EST DICTATION NUMBER: [id number] JUSTINO JOB NUMBER: [id number] CC: Quentin Rangel, [id number] Edited by Nolvia Colmenares 05/03/2018 02:55:24 PM Electronically Signed by Dr. Nolvia Colmenares 05/03/2018 02:55:24 PM Normal [facility] RENAL FUNCTION PANELon 04-24 Albumin [Mass/Vol] 2.4 g/dL Low 3.4 - 5.0 [facility] Comment on above: Performed By: #### R ENAL ####[id number] [place] [address] Anion gap [Moles/Vol] 14 mmol/L Normal 10 - 20 [facility] Comment on above: Performed By: #### R ENAL ####[id number] [place] [address] Calcium [Mass/Vol] 7.5 mg/dL Low 8.6 - 10.6 [facility] Comment on above: Performed By: #### R ENAL ####[id number] [place] [address] Chloride [Moles/Vol] 106 mmol/L Normal 98 - 107 [facility] Comment on above: Performed By: #### R ENAL ####[id number] [place] [address] Creatinine [Mass/Vol] 0.81 mg/dL Normal 0.50 - 1.30 [facility] Comment on above: Performed By: #### R ENAL ####[id number] [place] [address] GFR- AM. >60 Normal >60 [facility] Comment on above: Result Comment: CALC ULATIONS OF ESTIMATED GFR ARE PERFORMED USING THE MDRD STUDY EQUATION FOR THE IDMS-TRACEABLE CREATININE METHODS. CLIN CHEM 2007;53:766-72 Performed By: #### R ENAL ####[id number] [place] [address] GFR-NON AM. >60 Normal >60 [facility] Comment on above: Performed By: #### R ENAL ####[id number] [place] [address] Glucose [Mass/Vol] 168 mg/dL High 74 - 99 [facility] Comment on above: Performed By: #### R ENAL ####[id number] [place] [address] HCO3 (Bld) [Moles/Vol] 24 mmol/L Normal 21 - 32 [facility] Comment on above: Performed By: #### R ENAL ####[id number] [place] [address] Phosphate [Mass/Vol] 2.9 mg/dL Normal 2.5 - 4.9 [facility] Comment on above: Result Comment: The performance characteristics of phosphorus testing in heparinized plasma have been validated by the individual laboratory site where testing is performed. Testing on heparinized plasma is not approved by the FDA; however, such approval is not necessary. Performed By: #### R ENAL ####[id number] [place] [address] Potassium [Moles/Vol] 3.9 mmol/L Normal 3.5 - 5.3 [facility] Comment on above: Performed By: #### R ENAL ####[id number] [place] [address] Sodium [Moles/Vol] 140 mmol/L Normal 136 - 145 [facility] Comment on above: Performed By: #### R ENAL ####[id number] [place] [address] Urea nitrogen [Mass/Vol] 17 mg/dL Normal 6 - 23 [facility] Comment on above: Performed By: #### R ENAL ####[id number] [place] [address] Albumin [Mass/Vol] 2.3 g/dL Low 3.4 - 5.0 [facility] Comment on above: Performed By: #### R ENAL ####[id number] [place] [address] Anion gap [Moles/Vol] 10 mmol/L Normal 10 - 20 [facility] Comment on above: Performed By: #### R ENAL ####[id number] [place] [address] Calcium [Mass/Vol] 7.3 mg/dL Low 8.6 - 10.6 [facility] Comment on above: Performed By: #### R ENAL ####[id number] [place] [address] Chloride [Moles/Vol] 106 mmol/L Normal 98 - 107 [facility] Comment on above: Performed By: #### R ENAL ####[id number] [place] [address] Creatinine [Mass/Vol] 0.77 mg/dL Normal 0.50 - 1.30 [facility] Comment on above: Performed By: #### R ENAL ####[id number] [place] [address] GFR- AM. >60 Normal >60 [facility] Comment on above: Result Comment: CALC ULATIONS OF ESTIMATED GFR ARE PERFORMED USING THE MDRD STUDY EQUATION FOR THE IDMS-TRACEABLE CREATININE METHODS. CLIN CHEM 2007;53:766-72 Performed By: #### R ENAL ####[id number] [place] [address] GFR-NON AM. >60 Normal >60 [facility] Comment on above: Performed By: #### R ENAL ####[id number] [place] [address] Glucose [Mass/Vol] 167 mg/dL High 74 - 99 [facility] Comment on above: Performed By: #### R ENAL ####[id number] [place] [address] HCO3 (Bld) [Moles/Vol] 27 mmol/L Normal 21 - 32 [facility] Comment on above: Performed By: #### R ENAL ####[id number] [place] [address] Phosphate [Mass/Vol] 2.0 mg/dL Low 2.5 - 4.9 [facility] Comment on above: Result Comment: The performance characteristics of phosphorus testing in heparinized plasma have been validated by the individual laboratory site where testing is performed. Testing on heparinized plasma is not approved by the FDA; however, such approval is not necessary. Performed By: #### R ENAL ####[id number] [place] [address] Potassium [Moles/Vol] 3.3 mmol/L Low 3.5 - 5.3 [facility] Comment on above: Performed By: #### R ENAL ####[id number] [place] [address] Sodium [Moles/Vol] 140 mmol/L Normal 136 - 145 [facility] Comment on above: Performed By: #### R ENAL ####[id number] [place] [address] Urea nitrogen [Mass/Vol] 19 mg/dL Normal 6 - 23 [facility] Comment on above: Performed By: #### R ENAL ####[id number] [place] [address] REQUEST-LEUKOREDUCED RED DANNY LSon 04-24-2018 REQUEST-LEUKOREDU MABEL RED CELLS ORDER RECD Normal [facility] Comment on above: Performed By: #### O CONVENTION SERVICES DIRECTOR ####[id number] [place] [address], [place] TH ABDOMEN AP VIEWon 019 TH ABDOMEN AP VIEW Patient Name: ADEN PATEL STUDY: ABDOMEN AP VIEW; 04/24/2018 9:34 pm INDICATION: Signs/Symptoms: pacu. COMPARISON: 04/24/2018 ACCESSION NUMBER(S): [id number] ORDERING CLINICIAN: MATTHEW JOAQUIN FINDINGS: Enteric tube [...] as stated. This study was interpreted at [place], [place]. Electronically signed by: DAYNE HUBBARD MD Normal [facility] TH ABDOMEN AP VIEW Patient Name: ADEN PATEL STUDY: TH ABDOMEN AP VIEW; 04/24/2018 9:18 am INDICATION: Signs/Symptoms: post op, abdominal distention. COMPARISON: X-ray dated 04/22/2018 ACCESSION NUMBER(S): [id number] ORDERING CLINICIAN: GINGER ABDUL FINDINGS: Three views [...] effusion. Electronically signed by: DAYNE HUBBARD MD [facility] CHEST 1 VIEWon 04-24-2018 TH CHEST 1 VIEW Patient Name: ADEN PATEL STUDY: TH CHEST 1 VIEW; 04/24/2018 9:34 pm INDICATION: Signs/Symptoms: post op. COMPARISON: Radiograph dated 04/22/2018 ACCESSION NUMBER(S): [id number] ORDERING CLINICIAN: MATTHEW JOAQUIN FINDINGS: Enteric tube [...] as stated. This study was interpreted at [facility], [place], [place]. Electronically signed by: DAYNE HUBBARD MD Normal [facility] TYPE + SCREENon 04-24-2018 ABO TYPE A Normal [facility] Comment on above: Performed By: #### T +S ####[id number] [place] [address] RH TYPE Positive Normal [facility] Comment on above: Performed By: #### T +S ####[id number] [place] [address] [facility] Surgical Pathology Depar tmenton 04-24-[address] [facility] Surgical Pathology Department Name ADEN [...] up to 0.6 cm at greatest thickness. Compensation Associate sections are submitted in 4 cassettes. SAS sas/04/25/2018 Normal [facility] Comment on above: Performed By: #### U [facility] ####[facility] Surgical Pathology [id number] [place] [address] ARTERIAL FULL PANELon 2018 Anion gap [Moles/Vol] 5 mmol/L Low 10 - 25 [facility] Comment on above: Performed By: #### A FPA3 ####[id number] [place] [address] BASE EXCESS-BLOOD 5.8 mmol/L High -2.0 - 3.0 [facility] Comment on above: Performed By: #### A FPA3 ####[id number] [place] [address] CALCIUM,IONIZED 1.08 mmol/L Low 1.10 - 1.33 [facility] Comment on above: Performed By: #### A FPA3 ####[id number] [place] [address] Chloride [Moles/Vol] 108 mmol/L High 98 - 107 [facility] Comment on above: Performed By: #### A FPA3 ####[id number] [place] [address] Glucose [Mass/Vol] 180 mg/dL High 74 - 99 [facility] Comment on above: Performed By: #### A FPA3 ####[id number] [place] [address] Hematocrit (Bld) [Volume fraction] 29.0 % Low 41.0 - 52.0 [facility] Comment on above: Performed By: #### A FPA3 ####[id number] [place] [address] HGB,CALCULATED 9.9 g/dL Low 13.5 - 17.5 [facility] Comment on above: Performed By: #### A FPA3 ####[id number] [place] [address] Lactate [Moles/Vol] 1.4 mmol/L Normal 0.4 - 2.0 [facility] Comment on above: Performed By: #### A FPA3 ####[id number] [place] [address] Oxygen (Bld) [Partial pressure] 79 mm[Hg] Low 85 - 95 [facility] Comment on above: Performed By: #### A FPA3 ####[id number] [place] [address] PCO2 40 mmHg Normal 38 - 42 [facility] Comment on above: Performed By: #### A FPA3 ####[id number] [place] [address] pH (Bld) 7.48 [pH] High 7.38 - 7.42 [facility] Comment on above: Performed By: #### A FPA3 ####[id number] [place] [address] Potassium [Moles/Vol] 3.1 mmol/L Low 3.5 - 5.3 [facility] Comment on above: Performed By: #### A FPA3 ####[id number] [place] [address] RBC (Bld) [#/Vol] 29.8 mmol/L High 22.0 - 26.0 [facility] Comment on above: Performed By: #### A FPA3 ####[id number] [place] [address] SO2 99 % Normal 94 - 100 [facility] Comment on above: Performed By: #### A FPA3 ####[id number] [place] [address] Sodium [Moles/Vol] 140 mmol/L Normal 136 - 145 [facility] Comment on above: Performed By: #### A FPA3 ####[id number] [place] [address] BLOOD CULTURE, BACTERIALon 0 04-23-2018 BLOOD CULTURE, BACTERIAL PATIENT: ADEN PATEL LOCATION: [place] [address] BILL#: [id number] : 54 AGE: SEX: M ORDERED BY: MELITA ALBARRAN SOURCE: Blood COLLECTED: 04/23/18 13:38 ANTIBIOTICS AT GUILLERMO.: RECEIVED : 04/23/18 16:55 SITE: CENTRAL LINE R E S U L T S BLOOD CULTURE, BACTERIAL FINAL 04/28/18 17:42 No Growth at 1 days No Growth at 2 days No Growth at 3 days No Growth at 4 days NO GROWTH - FINAL REPORT Normal [facility] Comment on above: Performed By: #### B LDC ####[id number] [place] [address] BLOOD CULTURE, BACTERIAL PATIENT: ADEN PATEL LOCATION: [place] [address] BILL#: [id number] : 54 AGE: SEX: M ORDERED BY: MELITA ALBARRAN SOURCE: Blood COLLECTED: 04/23/18 13:38 ANTIBIOTICS AT GUILLERMO.: RECEIVED : 04/23/18 16:57 SITE: PERIPHERAL R E S U L T S BLOOD CULTURE, BACTERIAL FINAL 04/28/18 17:42 No Growth at 1 days No Growth at 2 days No Growth at 3 days No Growth at 4 days NO GROWTH - FINAL REPORT Normal [facility] Comment on above: Performed By: #### B LDC ####[id number] [place] [address] CALCIUM, IONIZEDon 9 CALCIUM,IONIZED 1.10 mmol/L Normal 1.10 - 1.33 [facility] Comment on above: Result Comment: The performance characteristics of ionized calcium tested in heparinized plasma or serum have been validated by the individual laboratory site where testing is performed. Testing on heparinized plasma or serum is not approved by the FDA; however, such approval is not necessary. Performed By: #### I ONC1 ####[id number] [place] [address] CBCon 04-23-2018 Erythrocyte distribution width (RBC) [Ratio] 14.8 % High 11.5 - 14.5 [facility] Comment on above: Performed By: #### C BC ####[id number] [place] [address] Hematocrit (Bld) [Volume fraction] 30.5 % Low 41.0 - 52.0 [facility] Comment on above: Performed By: #### C BC ####[id number] [place] [address] Hemoglobin (Bld) [Mass/Vol] 10.2 g/dL Low 13.5 - 17.5 [facility] Comment on above: Performed By: #### C BC ####[id number] [place] [address] MCHC (RBC) [Mass/Vol] 33.4 g/dL Normal 32.0 - 36.0 [facility] Comment on above: Performed By: #### C BC ####[id number] [place] [address] MCV (RBC) [Entitic vol] 90 fL Normal 80 - 100 [facility] Comment on above: Performed By: #### C BC ####[id number] [place] [address] Nucleated RBC/100 WBC (Bld) [Ratio] 0.0 /100 WBC Normal 0.0-0.0 [facility] Comment on above: Performed By: #### C BC ####[id number] [place] [address] Platelets (Bld) [#/Vol] 236 10*3/uL Normal 150 - 450 [facility] Comment on above: Performed By: #### C BC ####[id number] [place] [address] RBC (Bld) [#/Vol] 3.39 x10E12/L Low 4.50 - 5.90 [facility] Comment on above: Performed By: #### C BC ####[id number] [place] [address] WBC (Bld) [#/Vol] 16.8 10*3/uL High 4.4 - 11.3 [facility] Comment on above: Performed By: #### C BC ####[id number] [place] [address] COAGULATION SCREENon 019 aPTT Coag (Bld) [Time] 32 s Normal 28 - 38 [facility] Comment on above: Result Comment: THE APTT IS NO LONGER USED FOR MONITORING UNFRACTIONATED HEPARIN THERAPY. FOR MONITORING HEPARIN THERAPY, USE THE HEPARIN ASSAY. Performed By: #### C OAGS ####[id number] [place] [address] INR Coag (PPP) [Relative time] 1.1 {INR} Normal 0.9 - 1.1 [facility] Comment on above: Performed By: #### C OAGS ####[id number] [place] [address] PT Coag (PPP) [Time] 12.6 s Normal 9.7 - 12.7 [facility] Comment on above: Performed By: #### C OAGS ####[id number] [place] [address] Daily Progress Note - Critic al Care-SICU [place] 04-23-2018 [facility] Service: Critical Care Service: ServiceSICU [facility] Subjective Data: ID Statement: ADEN PATEL [...] overnight. Objective Data: Objective Information T PRBPSpO2 [id number]% Date/Time04/23 8: 11: 11: 11:00 Range(36.6C - [...] ----- Mn/Dy/Year TimeIntakeOutputNet Apr 23, 2018 6:00 [id number] Apr 22, 2018 10:00 [id number] Apr 22, 2018 2:00 [id number] The Intake and Output Totals for the last 24 hours are: IntakeOutputNet [id number] Physical Exam: Physical Exam: Neurological: alert and [...] Blood Gas Results 04/23/2018 02:19 pO279 pH7.48 [id number] SO299 Base Excess5.8 Mxgxujgesdc17.8 Assessment and Plan: Daily Risk Screen: Does [...] (per patient) , evidence of old inferior [place] on EKG. On 04/22 AM he went [...] heparin PPI Lines: L PIV PICC line [place] Prophylaxis: PPI SCDs Dispo: SICU purple team care for now Team phone: [phone] Code Status: Code StatusFull Code Signature/Cosignature/Attesta tion: [...] Updated: 24-Apr-2018 14:50 by Trav Blum) Normal [facility] Daily Progress Note-Colorect al Surgeryon [...] night. Objective Data: Objective Information: T PRBPSpO2 [id number]/5697% Date/Time04/23 0: 2: 2: 9: 2:00 Range(36.6C [...] reported at 04/22 19:00: 7 T PRBPSpO2 [id number]/5697% Date/Time04/23 0: 2: 2: 9: 2:00 Range(36.6C [...] attending surgeon Dr. Jacome. López Blake MD [facility] [address] SCIP Measures: Urinary Catheter Removed Post-Op Day [...] Data, Assessment and Plan, SCIP Measures, Signature/Cosignature/Attesta tiLópez blunt Ma (Fellow)) (Signed 23-Apr-2018 09:19) Authored: Objective Data, Assessment and Plan Jannette Hutchison) (Signed 24-Apr-2018 12:09) Authored: Signature/Cosignature/Attesta tion Co-Signer: Objective Data, Assessment and Plan Last Updated: 24-Apr-2018 12:09 by Jannette Hutchison) Normal [facility] FIBRINOGENon 04-23-2018 FIBRINOGEN 434 mg/dL High 200 - 400 [facility] Comment on above: Performed By: #### F IB ####[id number] [place] [address] GLUCOSE-POCTon 04-23-2018 Glucose [Mass/Vol] 153 mg/dL High 74 - 99 [facility] Comment on above: Performed By: #### G VAISHALI ####[id number] [place] [address] Glucose [Mass/Vol] 162 mg/dL High 74 - 99 [facility] Comment on above: Performed By: #### G VAISHALI ####[id number] [place] [address] Glucose [Mass/Vol] 162 mg/dL High 74 - 99 [facility] Comment on above: Performed By: #### G VAISHALI ####[id number] [place] [address] Glucose [Mass/Vol] 178 mg/dL High 74 - 99 [facility] Comment on above: Performed By: #### G VAISHALI ####[id number] [place] [address] Glucose [Mass/Vol] 164 mg/dL High 74 - 99 [facility] Comment on above: Performed By: #### G VAISHALI ####[id number] [place] [address] MAGNESIUMon 04-23-2018 Magnesium [Mass/Vol] 2.06 mg/dL Normal 1.60 - 2.40 [facility] Comment on above: Performed By: #### M G ####[id number] [place] [address] Magnesium [Mass/Vol] 1.98 mg/dL Normal 1.60 - 2.40 [facility] Comment on above: Performed By: #### M G ####[id number] [place] [address] Magnesium [Mass/Vol] 1.82 mg/dL Normal 1.60 - 2.40 [facility] Comment on above: Performed By: #### M G ####[id number] [place] [address] RENAL FUNCTION PANELon 04-23 Albumin [Mass/Vol] 2.3 g/dL Low 3.4 - 5.0 [facility] Comment on above: Performed By: #### R ENAL ####[id number] [place] [address] Anion gap [Moles/Vol] 11 mmol/L Normal 10 - 20 [facility] Comment on above: Performed By: #### R ENAL ####[id number] [place] [address] Calcium [Mass/Vol] 7.2 mg/dL Low 8.6 - 10.6 [facility] Comment on above: Performed By: #### R ENAL ####[id number] [place] [address] Chloride [Moles/Vol] 107 mmol/L Normal 98 - 107 [facility] Comment on above: Performed By: #### R ENAL ####[id number] [place] [address] Creatinine [Mass/Vol] 0.84 mg/dL Normal 0.50 - 1.30 [facility] Comment on above: Performed By: #### R ENAL ####[id number] [place] [address] GFR- AM. >60 Normal >60 [facility] Comment on above: Result Comment: CALC ULATIONS OF ESTIMATED GFR ARE PERFORMED USING THE MDRD STUDY EQUATION FOR THE IDMS-TRACEABLE CREATININE METHODS. CLIN CHEM 2007;53:766-72 Performed By: #### R ENAL ####[id number] [place] [address] GFR-NON AM. >60 Normal >60 [facility] Comment on above: Performed By: #### R ENAL ####[id number] [place] [address] Glucose [Mass/Vol] 164 mg/dL High 74 - 99 [facility] Comment on above: Performed By: #### R ENAL ####[id number] [place] [address] HCO3 (Bld) [Moles/Vol] 27 mmol/L Normal 21 - 32 [facility] Comment on above: Performed By: #### R ENAL ####[id number] [place] [address] Phosphate [Mass/Vol] 2.3 mg/dL Low 2.5 - 4.9 [facility] Comment on above: Result Comment: The performance characteristics of phosphorus testing in heparinized plasma have been validated by the individual laboratory site where testing is performed. Testing on heparinized plasma is not approved by the FDA; however, such approval is not necessary. Performed By: #### R ENAL ####[id number] [place] [address] Potassium [Moles/Vol] 3.6 mmol/L Normal 3.5 - 5.3 [facility] Comment on above: Performed By: #### R ENAL ####[id number] [place] [address] Sodium [Moles/Vol] 141 mmol/L Normal 136 - 145 [facility] Comment on above: Performed By: #### R ENAL ####[id number] [place] [address] Urea nitrogen [Mass/Vol] 21 mg/dL Normal 6 - 23 [facility] Comment on above: Performed By: #### R ENAL ####[id number] [place] [address] Albumin [Mass/Vol] 2.5 g/dL Low 3.4 - 5.0 [facility] Comment on above: Performed By: #### R ENAL ####[id number] [place] [address] Anion gap [Moles/Vol] 13 mmol/L Normal 10 - 20 [facility] Comment on above: Performed By: #### R ENAL ####[id number] [place] [address] Calcium [Mass/Vol] 7.4 mg/dL Low 8.6 - 10.6 [facility] Comment on above: Performed By: #### R ENAL ####[id number] [place] [address] Chloride [Moles/Vol] 106 mmol/L Normal 98 - 107 [facility] Comment on above: Performed By: #### R ENAL ####[id number] [place] [address] Creatinine [Mass/Vol] 0.86 mg/dL Normal 0.50 - 1.30 [facility] Comment on above: Performed By: #### R ENAL ####[id number] [place] [address] GFR- AM. >60 Normal >60 [facility] Comment on above: Result Comment: CALC ULATIONS OF ESTIMATED GFR ARE PERFORMED USING THE MDRD STUDY EQUATION FOR THE IDMS-TRACEABLE CREATININE METHODS. CLIN CHEM 2007;53:766-72 Performed By: #### R ENAL ####[id number] [place] [address] GFR-NON AM. >60 Normal >60 [facility] Comment on above: Performed By: #### R ENAL ####[id number] [place] [address] Glucose [Mass/Vol] 173 mg/dL High 74 - 99 [facility] Comment on above: Performed By: #### R ENAL ####[id number] [place] [address] HCO3 (Bld) [Moles/Vol] 29 mmol/L Normal 21 - 32 [facility] Comment on above: Performed By: #### R ENAL ####[id number] [place] [address] Phosphate [Mass/Vol] 2.5 mg/dL Normal 2.5 - 4.9 [facility] Comment on above: Result Comment: The performance characteristics of phosphorus testing in heparinized plasma have been validated by the individual laboratory site where testing is performed. Testing on heparinized plasma is not approved by the FDA; however, such approval is not necessary. Performed By: #### R ENAL ####[id number] [place] [address] Potassium [Moles/Vol] 3.6 mmol/L Normal 3.5 - 5.3 [facility] Comment on above: Performed By: #### R ENAL ####[id number] [place] [address] Sodium [Moles/Vol] 144 mmol/L Normal 136 - 145 [facility] Comment on above: Performed By: #### R ENAL ####[id number] [place] [address] Urea nitrogen [Mass/Vol] 22 mg/dL Normal 6 - 23 [facility] Comment on above: Performed By: #### R ENAL ####[id number] [place] [address] Albumin [Mass/Vol] 2.3 g/dL Low 3.4 - 5.0 [facility] Comment on above: Performed By: #### R ENAL ####[id number] [place] [address] Anion gap [Moles/Vol] 10 mmol/L Normal 10 - 20 [facility] Comment on above: Performed By: #### R ENAL ####[id number] [place] [address] Calcium [Mass/Vol] 7.4 mg/dL Low 8.6 - 10.6 [facility] Comment on above: Performed By: #### R ENAL ####[id number] [place] [address] Chloride [Moles/Vol] 107 mmol/L Normal 98 - 107 [facility] Comment on above: Performed By: #### R ENAL ####[id number] [place] [address] Creatinine [Mass/Vol] 0.93 mg/dL Normal 0.50 - 1.30 [facility] Comment on above: Performed By: #### R ENAL ####[id number] [place] [address] GFR- AM. >60 Normal >60 [facility] Comment on above: Result Comment: CALC ULATIONS OF ESTIMATED GFR ARE PERFORMED USING THE MDRD STUDY EQUATION FOR THE IDMS-TRACEABLE CREATININE METHODS. CLIN CHEM 2007;53:766-72 Performed By: #### R ENAL ####[id number] [place] [address] GFR-NON AM. >60 Normal >60 [facility] Comment on above: Performed By: #### R ENAL ####[id number] [place] [address] Glucose [Mass/Vol] 173 mg/dL High 74 - 99 [facility] Comment on above: Performed By: #### R ENAL ####[id number] [place] [address] HCO3 (Bld) [Moles/Vol] 29 mmol/L Normal 21 - 32 [facility] Comment on above: Performed By: #### R ENAL ####[id number] [place] [address] Phosphate [Mass/Vol] 2.6 mg/dL Normal 2.5 - 4.9 [facility] Comment on above: Result Comment: The performance characteristics of phosphorus testing in heparinized plasma have been validated by the individual laboratory site where testing is performed. Testing on heparinized plasma is not approved by the FDA; however, such approval is not necessary. Performed By: #### R ENAL ####[id number] [place] [address] Potassium [Moles/Vol] 3.3 mmol/L Low 3.5 - 5.3 [facility] Comment on above: Performed By: #### R ENAL ####[id number] [place] [address] Sodium [Moles/Vol] 143 mmol/L Normal 136 - 145 [facility] Comment on above: Performed By: #### R ENAL ####[id number] [place] [address] Urea nitrogen [Mass/Vol] 23 mg/dL Normal 6 - 23 [facility] Comment on above: Performed By: #### R ENAL ####[id number] [place] [address] URINE CULTURE,BACTERIALon URINE CULTURE,BACTERIAL PATIENT: ADEN PATEL LOCATION: [facility] BILL#: [id number] : 54 AGE: SEX: M ORDERED BY: MELITA ALBARRAN SOURCE: URINE COLLECTED: 04/23/18 13:37 ANTIBIOTICS AT GUILLERMO.: RECEIVED : 04/23/18 16:59 SITE: Mir Catheter R E S U L T S URINE CULTURE,BACTERIAL FINAL 04/24/18 09:21 NO GROWTH Normal [facility] Comment on above: Performed By: #### U RINC ####[id number] [place] [address] ARTERIAL FULL PANELon 2018 Anion gap [Moles/Vol] 9 mmol/L Low 10 - 25 [facility] Comment on above: Performed By: #### A FPA3 ####[id number] [place] [address] BASE EXCESS-BLOOD 3.1 mmol/L High -2.0 - 3.0 [facility] Comment on above: Performed By: #### A FPA3 ####[id number] [place] [address] CALCIUM,IONIZED 1.04 mmol/L Low 1.10 - 1.33 [facility] Comment on above: Performed By: #### A FPA3 ####[id number] [place] [address] Chloride [Moles/Vol] 109 mmol/L High 98 - 107 [facility] Comment on above: Performed By: #### A FPA3 ####[id number] [place] [address] Glucose [Mass/Vol] 191 mg/dL High 74 - 99 [facility] Comment on above: Performed By: #### A FPA3 ####[id number] [place] [address] Hematocrit (Bld) [Volume fraction] 41.0 % Normal 41.0 - 52.0 [facility] Comment on above: Performed By: #### A FPA3 ####[id number] [place] [address] HGB,CALCULATED 13.9 g/dL Normal 13.5 - 17.5 [facility] Comment on above: Performed By: #### A FPA3 ####[id number] [place] [address] Lactate [Moles/Vol] 1.8 mmol/L Normal 0.4 - 2.0 [facility] Comment on above: Performed By: #### A FPA3 ####[id number] [place] [address] Oxygen (Bld) [Partial pressure] 82 mm[Hg] Low 85 - 95 [facility] Comment on above: Performed By: #### A FPA3 ####[id number] [place] [address] PCO2 38 mmHg Normal 38 - 42 [facility] Comment on above: Performed By: #### A FPA3 ####[id number] [place] [address] pH (Bld) 7.46 [pH] High 7.38 - 7.42 [facility] Comment on above: Performed By: #### A FPA3 ####[id number] [place] [address] Potassium [Moles/Vol] 3.0 mmol/L Low 3.5 - 5.3 [facility] Comment on above: Performed By: #### A FPA3 ####[id number] [place] [address] RBC (Bld) [#/Vol] 27.0 mmol/L High 22.0 - 26.0 [facility] Comment on above: Performed By: #### A FPA3 ####[id number] [place] [address] SO2 98 % Normal 94 - 100 [facility] Comment on above: Performed By: #### A FPA3 ####[id number] [place] [address] Sodium [Moles/Vol] 142 mmol/L Normal 136 - 145 [facility] Comment on above: Performed By: #### A FPA3 ####[id number] [place] [address] Anion gap [Moles/Vol] 7 mmol/L Low 10 - 25 [facility] Comment on above: Performed By: #### A FPA3 ####[id number] [place] [address] BASE EXCESS-BLOOD 8.0 mmol/L High -2.0 - 3.0 [facility] Comment on above: Performed By: #### A FPA3 ####[id number] [place] [address] CALCIUM,IONIZED 1.14 mmol/L Normal 1.10 - 1.33 [facility] Comment on above: Performed By: #### A FPA3 ####[id number] [place] [address] Chloride [Moles/Vol] 108 mmol/L High 98 - 107 [facility] Comment on above: Performed By: #### A FPA3 ####[id number] [place] [address] Glucose [Mass/Vol] 182 mg/dL High 74 - 99 [facility] Comment on above: Performed By: #### A FPA3 ####[id number] [place] [address] Hematocrit (Bld) [Volume fraction] 37.0 % Low 41.0 - 52.0 [facility] Comment on above: Performed By: #### A FPA3 ####[id number] [place] [address] HGB,CALCULATED 12.6 g/dL Low 13.5 - 17.5 [facility] Comment on above: Performed By: #### A FPA3 ####[id number] [place] [address] Lactate [Moles/Vol] 1.3 mmol/L Normal 0.4 - 2.0 [facility] Comment on above: Performed By: #### A FPA3 ####[id number] [place] [address] Oxygen (Bld) [Partial pressure] 53 mm[Hg] Low 85 - 95 [facility] Comment on above: Performed By: #### A FPA3 ####[id number] [place] [address] PCO2 35 mmHg Low 38 - 42 [facility] Comment on above: Performed By: #### A FPA3 ####[id number] [place] [address] pH (Bld) 7.55 [pH] High 7.38 - 7.42 [facility] Comment on above: Performed By: #### A FPA3 ####[id number] [place] [address] Potassium [Moles/Vol] 3.1 mmol/L Low 3.5 - 5.3 [facility] Comment on above: Performed By: #### A FPA3 ####[id number] [place] [address] RBC (Bld) [#/Vol] 30.6 mmol/L High 22.0 - 26.0 [facility] Comment on above: Performed By: #### A FPA3 ####[id number] [place] [address] SO2 92 % Low 94 - 100 [facility] Comment on above: Performed By: #### A FPA3 ####[id number] [place] [address] Sodium [Moles/Vol] 142 mmol/L Normal 136 - 145 [facility] Comment on above: Performed By: #### A FPA3 ####[id number] [place] [address] CALCIUM, IONIZEDon 9 CALCIUM,IONIZED 1.14 mmol/L Normal 1.10 - 1.33 [facility] Comment on above: Result Comment: The performance characteristics of ionized calcium tested in heparinized plasma or serum have been validated by the individual laboratory site where testing is performed. Testing on heparinized plasma or serum is not approved by the FDA; however, such approval is not necessary. Performed By: #### I ONC1 ####[id number] [place] [address] CALCIUM,IONIZED 1.12 mmol/L Normal 1.10 - 1.33 [facility] Comment on above: Result Comment: The performance characteristics of ionized calcium tested in heparinized plasma or serum have been validated by the individual laboratory site where testing is performed. Testing on heparinized plasma or serum is not approved by the FDA; however, such approval is not necessary. Performed By: #### I ONC1 ####[id number] [place] [address] CBCon 04-22-2018 Erythrocyte distribution width (RBC) [Ratio] 14.8 % High 11.5 - 14.5 [facility] Comment on above: Performed By: #### C BC ####[id number] [place] [address] Hematocrit (Bld) [Volume fraction] 29.5 % Low 41.0 - 52.0 [facility] Comment on above: Performed By: #### C BC ####[id number] [place] [address] Hemoglobin (Bld) [Mass/Vol] 10.0 g/dL Low 13.5 - 17.5 [facility] Comment on above: Performed By: #### C BC ####[id number] [place] [address] MCHC (RBC) [Mass/Vol] 33.9 g/dL Normal 32.0 - 36.0 [facility] Comment on above: Performed By: #### C BC ####[id number] [place] [address] MCV (RBC) [Entitic vol] 91 fL Normal 80 - 100 [facility] Comment on above: Performed By: #### C BC ####[id number] [place] [address] Nucleated RBC/100 WBC (Bld) [Ratio] 0.0 /100 WBC Normal 0.0-0.0 [facility] Comment on above: Performed By: #### C BC ####[id number] [place] [address] Platelets (Bld) [#/Vol] 224 10*3/uL Normal 150 - 450 [facility] Comment on above: Performed By: #### C BC ####[id number] [place] [address] RBC (Bld) [#/Vol] 3.24 x10E12/L Low 4.50 - 5.90 [facility] Comment on above: Performed By: #### C BC ####[id number] [place] [address] WBC (Bld) [#/Vol] 14.3 10*3/uL High 4.4 - 11.3 [facility] Comment on above: Performed By: #### C BC ####[id number] [place] [address] Erythrocyte distribution width (RBC) [Ratio] 14.7 % High 11.5 - 14.5 [facility] Comment on above: Performed By: #### C BC ####[id number] [place] [address] Hematocrit (Bld) [Volume fraction] 36.1 % Low 41.0 - 52.0 [facility] Comment on above: Performed By: #### C BC ####[id number] [place] [address] Hemoglobin (Bld) [Mass/Vol] 11.9 g/dL Low 13.5 - 17.5 [facility] Comment on above: Performed By: #### C BC ####[id number] [place] [address] MCHC (RBC) [Mass/Vol] 33.0 g/dL Normal 32.0 - 36.0 [facility] Comment on above: Performed By: #### C BC ####[id number] [place] [address] MCV (RBC) [Entitic vol] 94 fL Normal 80 - 100 [facility] Comment on above: Performed By: #### C BC ####[id number] [place] [address] Nucleated RBC/100 WBC (Bld) [Ratio] 0.1 /100 WBC Normal 0.0-0.0 [facility] Comment on above: Performed By: #### C BC ####[id number] [place] [address] Platelets (Bld) [#/Vol] 285 10*3/uL Normal 150 - 450 [facility] Comment on above: Performed By: #### C BC ####[id number] [place] [address] RBC (Bld) [#/Vol] 3.86 x10E12/L Low 4.50 - 5.90 [facility] Comment on above: Performed By: #### C BC ####[id number] [place] [address] WBC (Bld) [#/Vol] 15.1 10*3/uL High 4.4 - 11.3 [facility] Comment on above: Performed By: #### C BC ####[id number] [place] [address] COAGULATION SCREENon 019 aPTT Coag (Bld) [Time] 34 s Normal 28 - 38 [facility] Comment on above: Result Comment: THE APTT IS NO LONGER USED FOR MONITORING UNFRACTIONATED HEPARIN THERAPY. FOR MONITORING HEPARIN THERAPY, USE THE HEPARIN ASSAY. Performed By: #### C OAGS ####[id number] [place] [address] INR Coag (PPP) [Relative time] 1.2 {INR} High 0.9 - 1.1 [facility] Comment on above: Performed By: #### C OAGS ####[id number] [place] [address] PT Coag (PPP) [Time] 13.3 s High 9.7 - 12.7 [facility] Comment on above: Performed By: #### C OAGS ####[id number] [place] [address] aPTT Coag (Bld) [Time] 30 s Normal 28 - 38 [facility] Comment on above: Result Comment: THE APTT IS NO LONGER USED FOR MONITORING UNFRACTIONATED HEPARIN THERAPY. FOR MONITORING HEPARIN THERAPY, USE THE HEPARIN ASSAY. Performed By: #### C OAGS ####[id number] [place] [address] INR Coag (PPP) [Relative time] 1.2 {INR} High 0.9 - 1.1 [facility] Comment on above: Performed By: #### C OAGS ####[id number] [place] [address] PT Coag (PPP) [Time] 13.3 s High 9.7 - 12.7 [facility] Comment on above: Performed By: #### C OAGS ####[id number] [place] [address] Clinical Event Noteon 2018 Clinical Event Note [...] Updated: 22-Apr-2018 09:03 by Jannette Hutchison) Normal [facility] Clinical Event Note-Post Op Checkon [...] Wilcox M.D. General Surgery PGY-1 Colorectal Surgery [id number] Electronic Signatures: Pantera Wilcox (Resident)) (Signed 22-Apr-2018 20:17) Authored: Event Last Updated: 22-Apr-2018 20:17 by Pantera Wilcox (Resident)) Normal [facility] Clinical Intervention - Shameka العلي 04-22-2018 Clinical Intervention - Pharmacy Pharmacist's [...] 22-Apr-2018 08:42 by Clau Anderson () Normal [facility] Daily Progress Note - Critic al Care-SICU Claire 04-22-2018 [facility] Service: Critical Care Service: ServiceSU [facility] Subjective Data: ID Statement: ADEN PATEL is a 67 year old Male who is Hospital Day # 10 and ICU Day #3 and POD #2 for second look laparotomy, resection of ischemic/necrotic segment of jejunum, left in discontinuity. adbominal irrigation, placement of abthera. went into afib overnight this morning received metoprolol 5 mg x1, 10mg x3. Objective Data: Objective Information T PRBPSpO2 [id number]/8798% Date/Time04/22 4: 5: 5: 10: 5:00 Range(36.8C [...] 04/22 2:00: 0 Direct Arterial Blood Pressure Zcnwseex430(108 - 188)04/22 5:00 Diastolic (mm Hg)63(63 - 88)04/22 5:00 Mean (mm Hg)76(76 - 120)04/22 5:00 Pulse Pressure (mm Hg)45(45 - 100)04/22 5:00 ---- Intake and Output ----- [facility] Apr 22, 2018 6:00 [id number] Apr 21, 2018 10:00 [id number] Apr 21, 2018 2:00 [id number] The Intake and Output Totals for the last 24 hours are: [facility] [id number] Physical Exam: Physical Exam: Neurological: alert and [...] Blood Gas Results 04/22/2018 01:42 pO253 pH7.55 lEA583 SO292 Base Excess8.0 Dorpceljdve12.6 Assessment and Plan: Daily Risk Screen: Does [...] (per patient) , evidence of old inferior [place] on EKG. On 04/22 AM he went [...] L IJ triple, L PIV PICC line [place] Prophylaxis: PPI SCDs Dispo: SICU purple team care for now Team phone: [phone] Code Status: Code StatusFull Code Signature/Cosignature/Attesta tion: [...] Trav Blum) (Signed 24-Apr-2018 14:42) Authored: Signature/Cosignature/Attesta tion Co-Signer: Service, Subjective Data, Objective Data, Assessment and Plan Matthew Joaquin (Resident)) (Signed 22-Apr-2018 14:14) Authored: Service, Subjective Data, Objective Data, Assessment and Plan Last Updated: 24-Apr-2018 14:42 by Trav Blum) [facility] Daily Progress Note-Colorect al Surgeryon 04-22-2018 [...] controlled. Objective Data: Objective Information: T PRBPSpO2 [id number]/8295% Date/Time04/22 8: 8: 8: 8: 8:00 Range(36.8C [...] attending surgeon Dr. Jacome. López Blake MD [place] CRS [address] SCIP Measures: Urinary Catheter Removed Post-Op Day [...] Updated: 23-Apr-2018 08:28 by Jannette Hutchison) Normal [facility] FIBRINOGENon 04-22-2018 FIBRINOGEN 470 mg/dL High 200 - 400 [facility] Comment on above: Performed By: #### F IB ####[id number] [place] [address] GLUCOSE-POCTon 04-22-2018 Glucose [Mass/Vol] 178 mg/dL High 74 - 99 [facility] Comment on above: Performed By: #### G VAISHALI ####[id number] [place] [address] Glucose [Mass/Vol] 182 mg/dL High 74 - 99 [facility] Comment on above: Performed By: #### G VAISHALI ####[id number] [place] [address] Glucose [Mass/Vol] 185 mg/dL High 74 - 99 [facility] Comment on above: Performed By: #### G VAISHALI ####[id number] [id number] MAGNESIUMon 04-22-2018 Magnesium [Mass/Vol] 2.07 mg/dL Normal 1.60 - 2.40 [facility] Comment on above: Performed By: #### M G ####[id number] [place] [address] Magnesium [Mass/Vol] 2.06 mg/dL Normal 1.60 - 2.40 [facility] Comment on above: Performed By: #### M G ####[id number] [place] [address] OPERATIVE REPORTon 9 OPERATIVE REPORT [facility] [address] [place] [address] Patient Name: ADEN PATEL : 1950 Date of Service: 04/22/2018 Patient Location: [place] [address] Patient Type: I Surgeon: Jannette Hutchison MD Report Type: Operative Reports PREOPERATIVE DIAGNOSIS: Jejunal perforation. POSTOPERATIVE DIAGNOSIS: Jejunal perforation. OPERATION/PROCEDURE: 1. Reopening of recent laparotomy. 2. Small-bowel resection. 3. Serosal patch. 4. Replacement of ABThera VAC. SURGEON: Dr. Jannette Hutchison. STENCIL SPRAYER(S): Dr. López Blake. ANESTHESIA: COMPLICATIONS: None. EBL: [...] was oversewn with chromic sutures in a feuvyi-yy-wwqgi fashion. The abdomen was then irrigated and [...] using interrupted 2-0 Vicryl sutures in a qmxiia-ys-aotlp fashion against the relatively healthy though still [...] TT: 04/22/2018 09:33 PM EST DICTATION NUMBER: [id number] JUSTINO JOB NUMBER: [id number] CC: Quentin Rangel, [id number] Nolvia Colmenares MD Electronically Signed by Dr. Jannette Hutchison 04/24/2018 01:43:16 PM Normal [facility] RENAL FUNCTION PANELon 04-22 Albumin [Mass/Vol] 2.7 g/dL Low 3.4 - 5.0 [facility] Comment on above: Performed By: #### R ENAL ####[id number] [place] [address] Anion gap [Moles/Vol] 11 mmol/L Normal 10 - 20 [facility] Comment on above: Performed By: #### R ENAL ####[id number] [place] [address] Calcium [Mass/Vol] 7.9 mg/dL Low 8.6 - 10.6 [facility] Comment on above: Performed By: #### R ENAL ####[id number] [place] [address] Chloride [Moles/Vol] 109 mmol/L High 98 - 107 [facility] Comment on above: Performed By: #### R ENAL ####[id number] [place] [address] Creatinine [Mass/Vol] 0.93 mg/dL Normal 0.50 - 1.30 [facility] Comment on above: Performed By: #### R ENAL ####[id number] [place] [address] GFR- AM. >60 Normal >60 [facility] Comment on above: Result Comment: CALC ULATIONS OF ESTIMATED GFR ARE PERFORMED USING THE MDRD STUDY EQUATION FOR THE IDMS-TRACEABLE CREATININE METHODS. CLIN CHEM 2007;53:766-72 Performed By: #### R ENAL ####[id number] [place] [address] GFR-NON AM. >60 Normal >60 [facility] Comment on above: Performed By: #### R ENAL ####[id number] [place] [address] Glucose [Mass/Vol] 200 mg/dL High 74 - 99 [facility] Comment on above: Performed By: #### R ENAL ####[id number] [place] [address] HCO3 (Bld) [Moles/Vol] 30 mmol/L Normal 21 - 32 [facility] Comment on above: Performed By: #### R ENAL ####[id number] [place] [address] Phosphate [Mass/Vol] 3.1 mg/dL Normal 2.5 - 4.9 [facility] Comment on above: Result Comment: The performance characteristics of phosphorus testing in heparinized plasma have been validated by the individual laboratory site where testing is performed. Testing on heparinized plasma is not approved by the FDA; however, such approval is not necessary. Performed By: #### R ENAL ####[id number] [place] [address] Potassium [Moles/Vol] 3.5 mmol/L Normal 3.5 - 5.3 [facility] Comment on above: Performed By: #### R ENAL ####[id number] [place] [address] Sodium [Moles/Vol] 146 mmol/L High 136 - 145 [facility] Comment on above: Performed By: #### R ENAL ####[id number] [place] [address] Urea nitrogen [Mass/Vol] 24 mg/dL High 6 - 23 [facility] Comment on above: Performed By: #### R ENAL ####[id number] [place] [address] Albumin [Mass/Vol] 2.5 g/dL Low 3.4 - 5.0 [facility] Comment on above: Performed By: #### R ENAL ####[id number] [place] [address] Anion gap [Moles/Vol] 13 mmol/L Normal 10 - 20 [facility] Comment on above: Performed By: #### R ENAL ####[id number] [place] [address] Calcium [Mass/Vol] 7.8 mg/dL Low 8.6 - 10.6 [facility] Comment on above: Performed By: #### R ENAL ####[id number] [place] [address] Chloride [Moles/Vol] 107 mmol/L Normal 98 - 107 [facility] Comment on above: Performed By: #### R ENAL ####[id number] [place] [address] Creatinine [Mass/Vol] 0.97 mg/dL Normal 0.50 - 1.30 [facility] Comment on above: Performed By: #### R ENAL ####[id number] [place] [address] GFR- AM. >60 Normal >60 [facility] Comment on above: Result Comment: CALC ULATIONS OF ESTIMATED GFR ARE PERFORMED USING THE MDRD STUDY EQUATION FOR THE IDMS-TRACEABLE CREATININE METHODS. CLIN CHEM 2007;53:766-72 Performed By: #### R ENAL ####[id number] [place] [address] GFR-NON AM. >60 Normal >60 [facility] Comment on above: Performed By: #### R ENAL ####[id number] [place] [address] Glucose [Mass/Vol] 191 mg/dL High 74 - 99 [facility] Comment on above: Performed By: #### R ENAL ####[id number] [place] [address] HCO3 (Bld) [Moles/Vol] 29 mmol/L Normal 21 - 32 [facility] Comment on above: Performed By: #### R ENAL ####[id number] [place] [address] Phosphate [Mass/Vol] 1.6 mg/dL Low 2.5 - 4.9 [facility] Comment on above: Result Comment: The performance characteristics of phosphorus testing in heparinized plasma have been validated by the individual laboratory site where testing is performed. Testing on heparinized plasma is not approved by the FDA; however, such approval is not necessary. Performed By: #### R ENAL ####[id number] [place] [address] Potassium [Moles/Vol] 3.4 mmol/L Low 3.5 - 5.3 [facility] Comment on above: Performed By: #### R ENAL ####[id number] [place] [address] Sodium [Moles/Vol] 146 mmol/L High 136 - 145 [facility] Comment on above: Performed By: #### R ENAL ####[id number] [place] [address] Urea nitrogen [Mass/Vol] 24 mg/dL High 6 - 23 [facility] Comment on above: Performed By: #### R ENAL ####[id number] [place] [address] TH ABDOMEN AP VIEWon 019 TH ABDOMEN AP VIEW Patient Name: ADEN PATEL STUDY: TH ABDOMEN AP VIEW; 04/22/2018 12:52 pm INDICATION: Signs/Symptoms: post op. COMPARISON: 04/21/2018 ACCESSION NUMBER(S): [id number] ORDERING CLINICIAN: MATTHEW JOAQUIN FINDINGS: NG tube overlies the body of stomach. Nonobstructive bowel gas pattern. Limited evaluation of pneumoperitoneum on supine imaging, however no gross evidence of free air is noted. Bibasilar atelectasis. Degenerative changes of the lumbar spine. IMPRESSION: 1. NG tube overlies the body of stomach. Electronically signed by: Mason SHIELDS MD Normal [facility] TH CHEST 1 VIEWon 04-22-2018 TH CHEST 1 VIEW Patient Name: ADEN PATEL STUDY: TH CHEST 1 VIEW; 04/22/2018 7:29 am INDICATION: Signs/Symptoms: am rounds. COMPARISON: 04/21/2018 ACCESSION NUMBER(S): [id number] ORDERING CLINICIAN: JODY KEISHA FINDINGS: CARDIOMEDIASTINAL SILHOUETTE: Cardiomediastinal silhouette is normal in size and configuration. LUNGS: Bibasilar atelectasis and effusions. No interval change. No pneumothorax. ABDOMEN: No remarkable upper abdominal findings. BONES: Marked degenerative disease of the shoulders. IMPRESSION: 1. Essentially stable bibasilar atelectasis and effusions. No pneumothorax. Electronically signed by: Mason SHIELDS MD Normal [facility] Surgical Pathology Depar tmenton 04-22-[address] [facility] Surgical Pathology Department Name ADEN PATEL Pathologist: MONO DUMONT MD Date of Procedure: 04/22/2018 Date Received: 04/23/2018 Date Reported 04/26/2018 Submitting Physician: JANNETTE HUTCHISNO MD Location: [facility] Other External # FINAL DIAGNOSIS A. SMALL [...] lines of resection. Polyps are not present. Compensation Associate sections are submitted in 4 cassettes. SAS Summary of Cassettes: Specimen Label Site A 1-4 loan servicing representative sections of diverticula sas/04/24/2018 Normal [facility] Comment on above: Performed By: #### U HCS ####[facility] Surgical Pathology [id number] [place] [address] ARTERIAL FULL PANELon 2018 Anion gap [Moles/Vol] 7 mmol/L Low 10 - 25 [facility] Comment on above: Order Comment: criti vasiliy results read to Cherelle Gonzalez and read back to [facility], 04/21/2018 04:27 Performed By: #### A FPA3 ####[id number] [place] [address] BASE EXCESS-BLOOD 1.0 mmol/L Normal -2.0 - 3.0 [facility] Comment on above: Order Comment: criti vasiliy results read to Cherelle Gonzalez and read back to [facility], 04/21/2018 04:27 Performed By: #### A FPA3 ####[id number] [place] [address] CALCIUM,IONIZED 0.90 mmol/L Low 1.10 - 1.33 [facility] Comment on above: Order Comment: criti vasiliy results read to Cherelle Gonzalez and read back to [facility], 04/21/2018 04:27 Performed By: #### A FPA3 ####[id number] [place] [address] Chloride [Moles/Vol] 116 mmol/L High 98 - 107 [facility] Comment on above: Order Comment: criti vasiliy results read to Cherelle Gonzalez and read back to [facility], 04/21/2018 04:27 Performed By: #### A FPA3 ####[id number] [place] [address] Glucose [Mass/Vol] 89 mg/dL Normal 74 - 99 [facility] Comment on above: Order Comment: criti vasiliy results read to Cherelle Gonzalez and read back to [facility], 04/21/2018 04:27 Performed By: #### A FPA3 ####[id number] [place] [address] Hematocrit (Bld) [Volume fraction] 22.0 % Low 41.0 - 52.0 [facility] Comment on above: Order Comment: criti vasiliy results read to Cherelle Gonzalez and read back to [facility], 04/21/2018 04:27 Performed By: #### A FPA3 ####[id number] [place] [address] HGB,CALCULATED 7.5 g/dL Low 13.5 - 17.5 [facility] Comment on above: Order Comment: criti vasiliy results read to Cherelle Gonzalez and read back to [facility], 04/21/2018 04:27 Performed By: #### A FPA3 ####[id number] [id number] Lactate [Moles/Vol] 0.8 mmol/L Normal 0.4 - 2.0 [facility] Comment on above: Order Comment: criti vasiliy results read to Cherelle Gonzalez and read back to [facility], 04/21/2018 04:27 Performed By: #### A FPA3 ####[id number] [place] [address] Oxygen (Bld) [Partial pressure] 72 mm[Hg] Low 85 - 95 [facility] Comment on above: Order Comment: criti vasiliy results read to Cherelle Gonzalez and read back to [facility], 04/21/2018 04:27 Performed By: #### A FPA3 ####[id number] [id number] PCO2 29 mmHg Low 38 - 42 [facility] Comment on above: Order Comment: criti vasiliy results read to Cherelle Gonzalez and read back to [facility], 04/21/2018 04:27 Performed By: #### A FPA3 ####[id number] [place] [address] pH (Bld) 7.52 [pH] High 7.38 - 7.42 [facility] Comment on above: Order Comment: criti vasiliy results read to Cherelle Gonzalez and read back to [facility], 04/21/2018 04:27 Performed By: #### A FPA3 ####[id number] [place] [address] Potassium [Moles/Vol] 2.7 mmol/L Critically low 3.5 - 5.3 [facility] Comment on above: Order Comment: criti vasiliy results read to Cherelle Gonzalez and read back to [facility], 04/21/2018 04:27 Result Comment: crit ical results read to Cherelle Gonzalez and read back to [facility], 04/21/2018 04:27 Performed By: #### A FPA3 ####[id number] [place] [address] RBC (Bld) [#/Vol] 23.7 mmol/L Normal 22.0 - 26.0 [facility] Comment on above: Order Comment: criti vasiliy results read to Cherelle oGnzalez and read back to [facility], 04/21/2018 04:27 Performed By: #### A FPA3 ####[id number] [place] [address] SO2 97 % Normal 94 - 100 [facility] Comment on above: Order Comment: criti vasiliy results read to Cherelle Gonzalez and read back to [facility], 04/21/2018 04:27 Performed By: #### A FPA3 ####[id number] [place] [address] Sodium [Moles/Vol] 144 mmol/L Normal 136 - 145 [facility] Comment on above: Order Comment: criti vasiliy results read to Cherelle Gonzalez and read back to [facility], 04/21/2018 04:27 Performed By: #### A FPA3 ####[id number] [place] [address] CALCIUM, IONIZEDon 9 CALCIUM,IONIZED 0.92 mmol/L Low 1.10 - 1.33 [facility] Comment on above: Result Comment: The performance characteristics of ionized calcium tested in heparinized plasma or serum have been validated by the individual laboratory site where testing is performed. Testing on heparinized plasma or serum is not approved by the FDA; however, such approval is not necessary. Performed By: #### I ONC1 ####[id number] [place] [address] CALCIUM,IONIZED 1.07 mmol/L Low 1.10 - 1.33 [facility] Comment on above: Result Comment: The performance characteristics of ionized calcium tested in heparinized plasma or serum have been validated by the individual laboratory site where testing is performed. Testing on heparinized plasma or serum is not approved by the FDA; however, such approval is not necessary. Performed By: #### I ONC1 ####[id number] [place] [address] CBCon 04-21-2018 Erythrocyte distribution width (RBC) [Ratio] 14.8 % High 11.5 - 14.5 [facility] Comment on above: Performed By: #### C BC ####[id number] [place] [address] Hematocrit (Bld) [Volume fraction] 35.2 % Low 41.0 - 52.0 [facility] Comment on above: Performed By: #### C BC ####[id number] [place] [address] Hemoglobin (Bld) [Mass/Vol] 11.3 g/dL Low 13.5 - 17.5 [facility] Comment on above: Performed By: #### C BC ####[id number] [place] [address] MCHC (RBC) [Mass/Vol] 32.1 g/dL Normal 32.0 - 36.0 [facility] Comment on above: Performed By: #### C BC ####[id number] [place] [address] MCV (RBC) [Entitic vol] 93 fL Normal 80 - 100 [facility] Comment on above: Performed By: #### C BC ####[id number] [place] [address] Nucleated RBC/100 WBC (Bld) [Ratio] 0.0 /100 WBC Normal 0.0-0.0 [facility] Comment on above: Performed By: #### C BC ####[id number] [place] [address] Platelets (Bld) [#/Vol] 208 10*3/uL Normal 150 - 450 [facility] Comment on above: Performed By: #### C BC ####[id number] [place] [address] RBC (Bld) [#/Vol] 3.79 x10E12/L Low 4.50 - 5.90 [facility] Comment on above: Performed By: #### C BC ####[id number] [place] [address] WBC (Bld) [#/Vol] 10.9 10*3/uL Normal 4.4 - 11.3 [facility] Comment on above: Performed By: #### C BC ####[id number] [place] [address] COAGULATION SCREENon 019 aPTT Coag (Bld) [Time] 30 s Normal 28 - 38 [facility] Comment on above: Result Comment: THE APTT IS NO LONGER USED FOR MONITORING UNFRACTIONATED HEPARIN THERAPY. FOR MONITORING HEPARIN THERAPY, USE THE HEPARIN ASSAY. Performed By: #### C OAGS ####[id number] [place] [address] INR Coag (PPP) [Relative time] 1.1 {INR} Normal 0.9 - 1.1 [facility] Comment on above: Performed By: #### C OAGS ####[id number] [place] [address] PT Coag (PPP) [Time] 12.1 s Normal 9.7 - 12.7 [facility] Comment on above: Performed By: #### C OAGS ####[id number] [place] [address] Daily Progress Note - Critic al Care-SICUon [...] vomiting. Objective Data: Objective Information T PRBPSpO2 Value36.77268761/23103% Date/Time04/21 4: 6: 6: 6: 6:00 Range(36.5C [...] 04/21 5:00: 8 Direct Arterial Blood Pressure Ddnfvbej288(135 - 192)04/21 6:00 Diastolic (mm Hg)84(66 - 84)04/21 6:00 Mean (mm Hg)113(91 - 116)04/21 6:00 Pulse Pressure (mm Hg)81(59 - 114)04/21 6:00 Aidtqdpl130(135 - 192)04/20 11:04 Diastolic (mm Hg)76(66 - 84)04/20 11:04 Mean (mm Hg)102(91 - 116)04/20 11:04 Pulse Pressure (mm Hg)59(59 - 114)04/20 11:04 ---- Intake and Output ----- Mn/Dy/Year TimeIntakeOutputFormerly [facility] Apr 21, 2018 6:00 [id number] Apr 20, 2018 10:00 [id number] Apr 20, 2018 2:00 [id number] The Intake and Output Totals for the last 24 hours are: IntakeOutunm children's psychiatric centerNet [id number] Drain and tube details (included in I&O [...] Blood Gas Results 04/21/2018 04:20 pO272 pH7.52 wFI817 SO297 Base Excess1.0 Txlhbjibhmr54.7 Assessment and Plan: Daily Risk Screen: Does [...] (per patient) , evidence of old inferior [place] on EKG - MAPs between 65-80mmHg - [...] purple team care for now Team phone: [phone] Code Status: Code StatusFull Code Signature/Cosignature/Attesta tion: [...] Plan, Signature/Cosignature/Attesta tion Yovany Ayers (Resident)) (Signed 21-Apr-2018 11:17) Authored: Service, Subjective Data, Objective Data, Assessment and Plan, Signature/Cosignature/Attesta [email or web address] Last Updated: 21-Apr-2018 13:23 by Davis Del Valle) Normal [facility] Daily Progress Note-Colorect al Surgeryon [...] drainage. Objective Data: Objective Information: T PRBPSpO2 Value37.83420899/8796% Date/Time04/21 12: 14: 14: 10: 14:00 Range(36.5C [...] Dr. Colmenares. [facility] General Surgery, PGY-2 [place] CRS [address] Signature/Cosignature/Attesta tion: Attending AttestationI saw and evaluated [...] Updated: 22-Apr-2018 16:15 by Nolvia Colmenares) Normal [facility] FIBRINOGENon 04-21-2018 FIBRINOGEN 529 mg/dL High 200 - 400 [facility] Comment on above: Performed By: #### F IB ####[id number] [place] [address] GLUCOSE-POCTon 04-21-2018 Glucose [Mass/Vol] 104 mg/dL High 74 - 99 [facility] Comment on above: Performed By: #### G VAISHALI ####[id number] [place] [address] Glucose [Mass/Vol] 102 mg/dL High 74 - 99 [facility] Comment on above: Performed By: #### G VAISHALI ####[id number] [place] [address] Glucose [Mass/Vol] 109 mg/dL High 74 - 99 [facility] Comment on above: Performed By: #### G VAISHALI ####[id number] [place] [address] MAGNESIUMon 04-21-2018 Magnesium [Mass/Vol] 2.01 mg/dL Normal 1.60 - 2.40 [facility] Comment on above: Performed By: #### M G ####[id number] [place] [address] Magnesium [Mass/Vol] 1.97 mg/dL Normal 1.60 - 2.40 [facility] Comment on above: Performed By: #### M G ####[id number] [place] [address] Nutrition Therapy-Assessment on 04-21-2018 Nutrition Therapy-Assessmen t Assessment Subjective/Objective: Note Type: Assessment Note Authored by: Registered Dietitian Hog Operator Pager Number: [phone] Nutrition Note: 67yo M with PMH of [...] reviewed these laboratory results: Glucose_POCT Trending View Imvymc78-Oqb-2796 08:46:00 20-Apr-2018 23:03:00 20-Apr-2018 15:30:00 20-Apr-2018 10:57:00 20-Apr-2018 09:19:00 20-Apr-2018 08:09:00 20-Apr-2018 03:26:00 20-Apr-2018 00:32:00 19-Apr-2018 20:20:00 19-Apr-2018 16:19:00 19-Apr-2018 11:24:00 Glucose-URIT268 H 109 H 111 H 98 128 H 75 81 74 81 81 76 Complete Blood Count Trending View Hacyjz15-Euk-6003 04:05:00 20-Apr-2018 21:16:00 20-Apr-2018 03:36:00 White Blood Cell Count10.9 9.1 8.8 Nucleated Erythrocyte Count0.0 0.0 0.0 Red Blood Cell Count3.79 L 3.54 L 3.25 L HGB11.3 L 10.9 L 9.8 L HCT35.2 L 33.7 L 30.1 L MCV93 95 93 MCHC32.1 32.3 32.6 VQD352 176 162 RDW-CV14.8 H 14.8 H 14.9 H Renal Function Panel Trending View Qndvum80-Hai-2810 04:05:00 20-Apr-2018 15:33:00 20-Apr-2018 03:35:00 19-Apr-2018 18:04:00 Glucose, Gsvtz902 H 112 H 66 L 70 L [...] Level 1.07 L Magnesium, Serum Trending View Bvsniw44-Rvr-3548 04:05:00 20-Apr-2018 15:33:00 20-Apr-2018 03:35:00 Magnesium, Serum1.97 [...] present at this time Estimated Needs: kcals/day: 0101-8852 gms protein/day: 120+ mL fluid/day: 4159-6268 or per MD Nutrition Diagnosis: Diagnosis1 new. [...] Last Updated: 27-Apr-2018 08:44 by Mariangel Gtz (HERRERA, RITA) Normal [facility] RENAL FUNCTION PANELon 04-21 Albumin [Mass/Vol] 2.1 g/dL Low 3.4 - 5.0 [facility] Comment on above: Performed By: #### R ENAL ####[id number] [place] [address] Anion gap [Moles/Vol] 12 mmol/L Normal 10 - 20 [facility] Comment on above: Performed By: #### R ENAL ####[id number] [place] [address] Calcium [Mass/Vol] 6.2 mg/dL Low 8.6 - 10.6 [facility] Comment on above: Performed By: #### R ENAL ####[id number] [place] [address] Chloride [Moles/Vol] 115 mmol/L High 98 - 107 [facility] Comment on above: Performed By: #### R ENAL ####[id number] [place] [address] Creatinine [Mass/Vol] 0.87 mg/dL Normal 0.50 - 1.30 [facility] Comment on above: Performed By: #### R ENAL ####[id number] [place] [address] GFR- AM. >60 Normal >60 [facility] Comment on above: Result Comment: CALC ULATIONS OF ESTIMATED GFR ARE PERFORMED USING THE MDRD STUDY EQUATION FOR THE IDMS-TRACEABLE CREATININE METHODS. CLIN CHEM 2007;53:766-72 Performed By: #### R ENAL ####[id number] [place] [address] GFR-NON AM. >60 Normal >60 [facility] Comment on above: Performed By: #### R ENAL ####[id number] [place] [address] Glucose [Mass/Vol] 100 mg/dL High 74 - 99 [facility] Comment on above: Performed By: #### R ENAL ####[id number] [place] [address] HCO3 (Bld) [Moles/Vol] 26 mmol/L Normal 21 - 32 [facility] Comment on above: Performed By: #### R ENAL ####[id number] [place] [address] Phosphate [Mass/Vol] 1.9 mg/dL Low 2.5 - 4.9 [facility] Comment on above: Result Comment: The performance characteristics of phosphorus testing in heparinized plasma have been validated by the individual laboratory site where testing is performed. Testing on heparinized plasma is not approved by the FDA; however, such approval is not necessary. Performed By: #### R ENAL ####[id number] [place] [address] Potassium [Moles/Vol] 3.0 mmol/L Low 3.5 - 5.3 [facility] Comment on above: Performed By: #### R ENAL ####[id number] [place] [address] Sodium [Moles/Vol] 150 mmol/L High 136 - 145 [facility] Comment on above: Performed By: #### R ENAL ####[id number] [place] [address] Urea nitrogen [Mass/Vol] 23 mg/dL Normal 6 - 23 [facility] Comment on above: Performed By: #### R ENAL ####[id number] [place] [address] Albumin [Mass/Vol] 2.6 g/dL Low 3.4 - 5.0 [facility] Comment on above: Performed By: #### R ENAL ####[id number] [place] [address] Anion gap [Moles/Vol] 16 mmol/L Normal 10 - 20 [facility] Comment on above: Performed By: #### R ENAL ####[id number] [place] [address] Calcium [Mass/Vol] 7.5 mg/dL Low 8.6 - 10.6 [facility] Comment on above: Performed By: #### R ENAL ####[id number] [place] [address] Chloride [Moles/Vol] 106 mmol/L Normal 98 - 107 [facility] Comment on above: Performed By: #### R ENAL ####[id number] [place] [address] Creatinine [Mass/Vol] 1.12 mg/dL Normal 0.50 - 1.30 [facility] Comment on above: Performed By: #### R ENAL ####[id number] [place] [address] GFR- AM. >60 Normal >60 [facility] Comment on above: Result Comment: CALC ULATIONS OF ESTIMATED GFR ARE PERFORMED USING THE MDRD STUDY EQUATION FOR THE IDMS-TRACEABLE CREATININE METHODS. CLIN CHEM 2007;53:766-72 Performed By: #### R ENAL ####[id number] [place] [address] GFR-NON AM. >60 Normal >60 [facility] Comment on above: Performed By: #### R ENAL ####[id number] [place] [address] Glucose [Mass/Vol] 115 mg/dL High 74 - 99 [facility] Comment on above: Performed By: #### R ENAL ####[id number] [place] [address] HCO3 (Bld) [Moles/Vol] 29 mmol/L Normal 21 - 32 [facility] Comment on above: Performed By: #### R ENAL ####[id number] [place] [address] Phosphate [Mass/Vol] 2.6 mg/dL Normal 2.5 - 4.9 [facility] Comment on above: Result Comment: The performance characteristics of phosphorus testing in heparinized plasma have been validated by the individual laboratory site where testing is performed. Testing on heparinized plasma is not approved by the FDA; however, such approval is not necessary. Performed By: #### R ENAL ####[id number] [place] [address] Potassium [Moles/Vol] 3.7 mmol/L Normal 3.5 - 5.3 [facility] Comment on above: Performed By: #### R ENAL ####[id number] [place] [address] Sodium [Moles/Vol] 147 mmol/L High 136 - 145 [facility] Comment on above: Performed By: #### R ENAL ####[id number] [place] [address] Urea nitrogen [Mass/Vol] 28 mg/dL High 6 - 23 [facility] Comment on above: Performed By: #### R ENAL ####[id number] [place] [address] ABDOMEN AP VIEWon 019 ABDOMEN AP VIEW Patient Name: ADEN PATEL STUDY: TH ABDOMEN AP VIEW; 04/21/2018 3:04 pm INDICATION: Signs/Symptoms: reposition of NG tube, post surgical patient in discontinuity/ open abdomen. COMPARISON: 04/21/2018 ACCESSION NUMBER(S): [id number] ORDERING CLINICIAN: YOVANY AYERS FINDINGS: Partially visualized [...] as stated. This study was interpreted at [facility], [place], [place]. Electronically signed by: KIKI QUEZADA MD Normal [facility] TH ABDOMEN AP VIEW Patient Name: ADEN PATEL STUDY: ABDOMEN AP VIEW; 04/21/2018 6:57 am INDICATION: Signs/Symptoms: NGT placement. COMPARISON: Radiograph from 04/17/2018 ACCESSION NUMBER(S): [id number] ORDERING CLINICIAN: MARQUEZ BRONSON FINDINGS: Enteric tube [...] Electronically signed by: KIKI QUEZADA MD Normal [facility] CHEST 1 VIEWon 04-21-2018 TH CHEST 1 VIEW Patient Name: ADEN PATEL STUDY: TH CHEST 1 VIEW; 04/21/2018 6:57 am INDICATION: Signs/Symptoms: AM rounds. COMPARISON: Chest radiograph from 04/20/2018 ACCESSION NUMBER(S): [id number] ORDERING CLINICIAN: CLARA PADGETT FINDINGS: Enteric tube [...] Electronically signed by: KIKI QUEZADA MD Normal [facility] TRIGLYCERIDESon 04-21-2018 Triglyceride [Mass/Vol] 91 mg/dL Normal 0 - 149 [facility] Comment on above: Result Comment: [...] Metamizole dosing. Performed By: #### T RIG ####[id number] [place] [address] CBCon 04-20-2018 Erythrocyte distribution width (RBC) [Ratio] 14.8 % High 11.5 - 14.5 [facility] Comment on above: Performed By: #### C BC ####[id number] [place] [address] Hematocrit (Bld) [Volume fraction] 33.7 % Low 41.0 - 52.0 [facility] Comment on above: Performed By: #### C BC ####[id number] [place] [address] Hemoglobin (Bld) [Mass/Vol] 10.9 g/dL Low 13.5 - 17.5 [facility] Comment on above: Performed By: #### C BC ####[id number] [place] [address] MCHC (RBC) [Mass/Vol] 32.3 g/dL Normal 32.0 - 36.0 [facility] Comment on above: Performed By: #### C BC ####[id number] [place] [address] MCV (RBC) [Entitic vol] 95 fL Normal 80 - 100 [facility] Comment on above: Performed By: #### C BC ####[id number] [place] [address] Nucleated RBC/100 WBC (Bld) [Ratio] 0.0 /100 WBC Normal 0.0-0.0 [facility] Comment on above: Performed By: #### C BC ####[id number] [place] [address] Platelets (Bld) [#/Vol] 176 10*3/uL Normal 150 - 450 [facility] Comment on above: Performed By: #### C BC ####[id number] [place] [address] RBC (Bld) [#/Vol] 3.54 x10E12/L Low 4.50 - 5.90 [facility] Comment on above: Performed By: #### C BC ####[id number] [place] [address] WBC (Bld) [#/Vol] 9.1 10*3/uL Normal 4.4 - 11.3 [facility] Comment on above: Performed By: #### C BC ####[id number] [place] [address] Erythrocyte distribution width (RBC) [Ratio] 14.9 % High 11.5 - 14.5 [facility] Comment on above: Performed By: #### C BC ####[id number] [place] [address] Hematocrit (Bld) [Volume fraction] 30.1 % Low 41.0 - 52.0 [facility] Comment on above: Performed By: #### C BC ####[id number] [place] [address] Hemoglobin (Bld) [Mass/Vol] 9.8 g/dL Low 13.5 - 17.5 [facility] Comment on above: Performed By: #### C BC ####[id number] [place] [address] MCHC (RBC) [Mass/Vol] 32.6 g/dL Normal 32.0 - 36.0 [facility] Comment on above: Performed By: #### C BC ####[id number] [place] [address] MCV (RBC) [Entitic vol] 93 fL Normal 80 - 100 [facility] Comment on above: Performed By: #### C BC ####[id number] [place] [address] Nucleated RBC/100 WBC (Bld) [Ratio] 0.0 /100 WBC Normal 0.0-0.0 [facility] Comment on above: Performed By: #### C BC ####[id number] [place] [address] Platelets (Bld) [#/Vol] 162 10*3/uL Normal 150 - 450 [facility] Comment on above: Performed By: #### C BC ####[id number] [place] [address] RBC (Bld) [#/Vol] 3.25 x10E12/L Low 4.50 - 5.90 [facility] Comment on above: Performed By: #### C BC ####[id number] [place] [address] WBC (Bld) [#/Vol] 8.8 10*3/uL Normal 4.4 - 11.3 [facility] Comment on above: Performed By: #### C BC ####[id number] [place] [address] COAGULATION SCREENon 019 aPTT Coag (Bld) [Time] 29 s Normal 28 - 38 [facility] Comment on above: Result Comment: Note new reference range as of 01/17/2018. THE APTT IS NO LONGER USED FOR MONITORING UNFRACTIONATED HEPARIN THERAPY. FOR MONITORING HEPARIN THERAPY, USE THE HEPARIN ASSAY. Performed By: #### C OAGS ####[id number] [place] [address] INR Coag (PPP) [Relative time] 1.0 {INR} Normal 0.9 - 1.1 [facility] Comment on above: Performed By: #### C OAGS ####[id number] [place] [address] PT Coag (PPP) [Time] 11.2 s Normal 9.7 - 12.7 [facility] Comment on above: Result Comment: Note new reference range as of 01/17/2018. Performed By: #### C OAGS ####[id number] [place] [address] Daily [facility] - [facility] Service: Critical Care Service: ServiceSICU [facility] Subjective Data: ID Statement: ADEN PATEL is a 67 year old Male who is Hospital Day # 8 and ICU Day #5 and POD #3 for Exploratory laparotomy, evacuation hematoma, omentectomy, abthera wound vac. No acute events overnight. Received labetalol and hydralazine for hypertenion. Objective Data: Objective Information T PRBPSpO2 Value37.40117976/6599% Date/Time04/20 4: 6:: 19: 6:00 Range(37.1C - 37.6C ) (68 [...] 04/20 4:00: 0 Direct Arterial Blood Pressure Pgqbvnqy998(139 - 195)04/20 6:00 Diastolic (mm Hg)74(61 - 91)04/20 6:00 Mean (mm Hg)102(83 - 123)04/20 6:00 Pulse Pressure (mm Hg)95(78 - 119)04/20 6:00 ---- Intake and Output ----- Mn/Dy/Year TimeIntakeOutputNet Apr 20, 2018 6:00 [id number] Apr 19, 2018 10:00 pm820.71622-103 Apr 19, 2018 2:00 pm761.90771-137 The Intake and Output Totals for the last 24 hours are: [facility] [id number] Drain and tube details (included in I&O [...] Blood Gas Results 04/19/2018 18:05 pO268 pH7.47 wAL484 SO296 Base Excess3.2 Ocuplhlxwpa47.9 Assessment and Plan: Daily Risk Screen: Does [...] (per patient) , evidence of old inferior [place] on EKG - received hydralazine 20 mg [...] purple team care for now Team phone: [phone] Code Status: Code StatusFull Code Comorbidities: Comorbidity: [...] Updated: 21-Apr-2018 19:09 by Davis Del Valle) [facility] Daily Progress Note-Colorect al Surgeryon 04-20-2018 [...] overnight. Objective Data: Objective Information: T PRBPSpO2 Value37.93758017/6596% Date/Time04/20 8: 9: 9: 19: 9:00 Range(37.1C - 37.6C ) (68 - 89 ) (12 - 22 ) (145 - 145 )/ (65 - 65 ) (93% - 99% ) As of 20-Apr-2018 08:00:00, patient is on 6 L/min of oxygen via nasal cannula with humidification. Highest temp of 37.6 C was recorded at 04/19 12:00 ---- Intake and Output ----- Mn/Dy/[facility] Apr 20, 2018 6:00 [id number] Apr 19, 2018 10:00 pm820.65286-067 Apr 19, 2018 2:00 pm761.44421-099 The Intake and Output Totals for the last 24 hours are: IntakeOutputNet [id number] Intake Output IV Fluids 2000 mL Urine [...] reviewed these laboratory results: Glucose_POCT Trending View Ioqafu05-Lpv-0558 09:19:00 20-Apr-2018 08:09:00 Glucose-RQWE009 H 75 Coagulation Screen 20-Apr-2018 03:37:00 ResultValue [...] Patient discussed with attending surgeon Dr. Colmenares. [facility] General Surgery, PGY-2 [place] [address] Signature/Cosignature/Attesta tion: Attending AttestationI saw and evaluated [...] Updated: 22-Apr-2018 16:12 by Nolvia Colmenares) Normal [facility] GLUCOSE-POCTon 04-20-2018 Glucose [Mass/Vol] 111 mg/dL High 74 - 99 [facility] Comment on above: Performed By: #### G VAISHALI ####[id number] [place] [address] Glucose [Mass/Vol] 98 mg/dL Normal 74 - 99 [facility] Comment on above: Performed By: #### G VAISHALI ####[id number] [place] [address] Glucose [Mass/Vol] 128 mg/dL High 74 - 99 [facility] Comment on above: Performed By: #### G VAISHALI ####[id number] [place] [address] Glucose [Mass/Vol] 75 mg/dL Normal 74 - 99 [facility] Comment on above: Performed By: #### G VAISHALI ####[id number] [place] [address] Glucose [Mass/Vol] 81 mg/dL Normal 74 - 99 [facility] Comment on above: Performed By: #### G VAISHALI ####[id number] [place] [address] Glucose [Mass/Vol] 74 mg/dL Normal 74 - 99 [facility] Comment on above: Performed By: #### G VAISHALI ####[id number] [place] [address] History and Physical - Surgi vasiliy Update [...] Updated: 22-Apr-2018 16:13 by Nolvia Colmenares) Normal [facility] MAGNESIUMon 04-20-2018 Magnesium [Mass/Vol] 1.94 mg/dL Normal 1.60 - 2.40 [facility] Comment on above: Performed By: #### M G ####[id number] [place] [address] Magnesium [Mass/Vol] 1.98 mg/dL Normal 1.60 - 2.40 [facility] Comment on above: Performed By: #### M G ####[id number] [place] [address] OPERATIVE REPORTon 9 OPERATIVE REPORT [facility] [address] [id number] Patient Name: ADEN PATEL : 1950 Date of Service: 04/20/2018 Patient Location: [facility] [id number] Patient Type: I Surgeon: Nolvia Colmenares MD Report Type: Operative Reports PREOPERATIVE DIAGNOSIS: Ischemic small bowel and open abdomen. 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 OPERATION/PROCEDURE: 1. Exploratory laparotomy. 2. Small bowel resection. 3. Placement of ABThera wound VAC. SURGEON: Nolvia Colmenares MD STENCIL SPRAYER(S): López Blake MD ANESTHESIA: General endotracheal. INDICATIONS: [...] as described above. Dr. Blake was the pediatric medical assistant. Nolvia Colmenares MD EST TT: 05/04/2018 01:56 AM EST DICTATION NUMBER: [id number] JUSTINO JOB NUMBER: [id number] CC: Quentin Rangel, [id number] Electronically Signed by Dr. Nolvia Colmenares 05/16/2018 09:03:06 AM Normal [facility] Preop Checkliston 04-20-2018 Preop Checklist Preop Checklist: Preop Checklist: Arrival [id number]-6305 Arrival Time10:55 Procedure Typebowel procedure NPO Zcmtoz58-Hzw-8119 23:00 NPO Commentr nares ng to low [...] 20-Apr-2018 11:12 by Ruth Davila (GORDON) Normal [facility] RENAL FUNCTION PANELon 04-20 Albumin [Mass/Vol] 2.9 g/dL Low 3.4 - 5.0 [facility] Comment on above: Performed By: #### R ENAL ####[id number] [place] [address] Anion gap [Moles/Vol] 17 mmol/L Normal 10 - 20 [facility] Comment on above: Performed By: #### R ENAL ####[id number] [place] [address] Calcium [Mass/Vol] 7.8 mg/dL Low 8.6 - 10.6 [facility] Comment on above: Performed By: #### R ENAL ####[id number] [place] [address] Chloride [Moles/Vol] 105 mmol/L Normal 98 - 107 [facility] Comment on above: Performed By: #### R ENAL ####[id number] [place] [address] Creatinine [Mass/Vol] 1.10 mg/dL Normal 0.50 - 1.30 [facility] Comment on above: Performed By: #### R ENAL ####[id number] [place] [address] GFR- AM. >60 Normal >60 [facility] Comment on above: Result Comment: CALC ULATIONS OF ESTIMATED GFR ARE PERFORMED USING THE MDRD STUDY EQUATION FOR THE IDMS-TRACEABLE CREATININE METHODS. CLIN CHEM 2007;53:766-72 Performed By: #### R ENAL ####[id number] [place] [address] GFR-NON AM. >60 Normal >60 [facility] Comment on above: Performed By: #### R ENAL ####[id number] [place] [address] Glucose [Mass/Vol] 112 mg/dL High 74 - 99 [facility] Comment on above: Performed By: #### R ENAL ####[id number] [place] [address] HCO3 (Bld) [Moles/Vol] 30 mmol/L Normal 21 - 32 [facility] Comment on above: Performed By: #### R ENAL ####[id number] [place] [address] Phosphate [Mass/Vol] 3.2 mg/dL Normal 2.5 - 4.9 [facility] Comment on above: Result Comment: The performance characteristics of phosphorus testing in heparinized plasma have been validated by the individual laboratory site where testing is performed. Testing on heparinized plasma is not approved by the FDA; however, such approval is not necessary. Performed By: #### R ENAL ####[id number] [place] [address] Potassium [Moles/Vol] 3.5 mmol/L Normal 3.5 - 5.3 [facility] Comment on above: Performed By: #### R ENAL ####[id number] [place] [address] Sodium [Moles/Vol] 148 mmol/L High 136 - 145 [facility] Comment on above: Performed By: #### R ENAL ####[id number] [place] [address] Urea nitrogen [Mass/Vol] 30 mg/dL High 6 - 23 [facility] Comment on above: Performed By: #### R ENAL ####[id number] [place] [address] Albumin [Mass/Vol] 2.5 g/dL Low 3.4 - 5.0 [facility] Comment on above: Performed By: #### R ENAL ####[id number] [place] [address] Anion gap [Moles/Vol] 18 mmol/L Normal 10 - 20 [facility] Comment on above: Performed By: #### R ENAL ####[id number] [place] [address] Calcium [Mass/Vol] 7.6 mg/dL Low 8.6 - 10.6 [facility] Comment on above: Performed By: #### R ENAL ####[id number] [place] [address] Chloride [Moles/Vol] 105 mmol/L Normal 98 - 107 [facility] Comment on above: Performed By: #### R ENAL ####[id number] [place] [address] Creatinine [Mass/Vol] 1.37 mg/dL High 0.50 - 1.30 [facility] Comment on above: Performed By: #### R ENAL ####[id number] [place] [address] GFR- AM. 63 mL/min/1.73m2 Normal >60 [facility] Comment on above: Result Comment: CALC ULATIONS OF ESTIMATED GFR ARE PERFORMED USING THE MDRD STUDY EQUATION FOR THE IDMS-TRACEABLE CREATININE METHODS. CLIN CHEM 2007;53:766-72 Performed By: #### R ENAL ####[id number] [place] [address] GFR-NON AM. 52 mL/min/1.73m2 Abnormal >60 [facility] Comment on above: Performed By: #### R ENAL ####[id number] [place] [address] Glucose [Mass/Vol] 66 mg/dL Low 74 - 99 [facility] Comment on above: Performed By: #### R ENAL ####[id number] [place] [address] HCO3 (Bld) [Moles/Vol] 27 mmol/L Normal 21 - 32 [facility] Comment on above: Performed By: #### R ENAL ####[id number] [place] [address] Phosphate [Mass/Vol] 3.0 mg/dL Normal 2.5 - 4.9 [facility] Comment on above: Result Comment: The performance characteristics of phosphorus testing in heparinized plasma have been validated by the individual laboratory site where testing is performed. Testing on heparinized plasma is not approved by the FDA; however, such approval is not necessary. Performed By: #### R ENAL ####[id number] [place] [address] Potassium [Moles/Vol] 3.6 mmol/L Normal 3.5 - 5.3 [facility] Comment on above: Result Comment: MILD HEMOLYSIS DETECTED. The result may be falsely elevated due to hemolysis or other interferents. Clinical correlation is recommended. Repeat testing may be considered. Performed By: #### R ENAL ####[id number] [place] [address] Sodium [Moles/Vol] 146 mmol/L High 136 - 145 [facility] Comment on above: Performed By: #### R ENAL ####[id number] [place] [address] Urea nitrogen [Mass/Vol] 37 mg/dL High 6 - 23 [facility] Comment on above: Performed By: #### R ENAL ####[id number] [place] [address] TH CHEST 1 VIEWon 04-20-2018 TH CHEST 1 VIEW Patient Name: ADEN PATEL STUDY: TH CHEST 1 VIEW; 04/20/2018 7:14 am INDICATION: Signs/Symptoms: AM rounds. COMPARISON: 04/19/2018 ACCESSION NUMBER(S): [id number] ORDERING CLINICIAN: CLARA PADGETT FINDINGS: Patient has been extubated. CARDIOMEDIASTINAL SILHOUETTE: Cardiomediastinal silhouette is normal in size and configuration. LUNGS: Bibasilar atelectasis and effusions. No pneumothorax. No significant interval change. ABDOMEN: No remarkable upper abdominal findings. BONES: No acute osseous changes. IMPRESSION: 1. No significant change in bibasilar atelectasis and effusions status post extubation. Electronically signed by: Mason SHIELDS MD Normal [facility] TYPE + SCREENon 04-20-2018 ABO TYPE A Normal [facility] Comment on above: Performed By: #### T +S ####[id number] [place] [address] RH TYPE Positive Normal [facility] Comment on above: Performed By: #### T +S ####[id number] [place] [address] [facility] Surgical Pathology Depar tmenton 04-20-[address] [facility] Surgical Pathology Department Name ADEN PATEL Pathologist: MONO DUMONT MD Date of Procedure: 04/20/2018 Date Received: 04/20/2018 Date Reported 04/25/2018 Submitting Physician: NOLVIA COLMENARES MD Location: IC [...] thrombi or lymph nodes are not identified. Compensation Associate sections are submitted in 6 cassettes. DJO Summary of Cassettes: Specimen Label Site A 1 #1 segment perpendicular sections of margins, ink at margin 2 #1 segment 3 #2 segment perpendicular sections of margins, ink at margin 4-6 #2 segment djo/04/21/2018 Normal [facility] Comment on above: Performed By: #### U [facility] ####[facility] Surgical Pathology [id number] [facility] [address] ARTERIAL FULL PANELon 2018 Anion gap [Moles/Vol] 10 mmol/L Normal 10 - 25 [facility] Comment on above: Order Comment: CHUYITA PETERS CALLED TO AMINATA PAVON, 04/19/2018 18:38 Performed By: #### A FPA3 ####[id number] [place] [address] BASE EXCESS-BLOOD 3.2 mmol/L High -2.0 - 3.0 [facility] Comment on above: Order Comment: CHUYITA PETERS CALLED TO AMINATA ANTHONY RB., 04/19/2018 18:38 Performed By: #### A FPA3 ####[id number] [place] [address] CALCIUM,IONIZED 1.10 mmol/L Normal 1.10 - 1.33 [facility] Comment on above: Order Comment: CHUYITA PETERS CALLED TO AMINATA ANTHONY RB., 04/19/2018 18:38 Performed By: #### A FPA3 ####[id number] [place] [address] Chloride [Moles/Vol] 106 mmol/L Normal 98 - 107 [facility] Comment on above: Order Comment: CHUYITA PETERS CALLED TO AMINATA ANTHONY RB., 04/19/2018 18:38 Performed By: #### A FPA3 ####[id number] [place] [address] Glucose [Mass/Vol] 70 mg/dL Low 74 - 99 [facility] Comment on above: Order Comment: CHUYITA PETERS CALLED TO AMINATA ANTHONY RB., 04/19/2018 18:38 Performed By: #### A FPA3 ####[id number] [place] [address] Hematocrit (Bld) [Volume fraction] 40.0 % Low 41.0 - 52.0 [facility] Comment on above: Order Comment: CHUYITA PETERS CALLED TO AMINATA ANTHONY RB., 04/19/2018 18:38 Performed By: #### A FPA3 ####[id number] [place] [address] HGB,CALCULATED 13.6 g/dL Normal 13.5 - 17.5 [facility] Comment on above: Order Comment: CHUYITA PETERS CALLED TO AMINATA ANTHONY RB., 04/19/2018 18:38 Performed By: #### A FPA3 ####[id number] [place] [address] Lactate [Moles/Vol] 0.8 mmol/L Normal 0.4 - 2.0 [facility] Comment on above: Order Comment: CHUYITA PETERS CALLED TO AMINATA ANTHONY RB., 04/19/2018 18:38 Performed By: #### A FPA3 ####[id number] [place] [address] Oxygen (Bld) [Partial pressure] 68 mm[Hg] Low 85 - 95 [facility] Comment on above: Order Comment: CHUYITA SLADEVivian CALLED TO AMINATA ANTHONY RB., 04/19/2018 18:38 Performed By: #### A FPA3 ####[id number] [place] [address] PCO2 37 mmHg Low 38 - 42 [facility] Comment on above: Order Comment: FELICITADolly SLADEVivian CALLED TO AMINATA ANTHONY RB., 04/19/2018 18:38 Performed By: #### A FPA3 ####[id number] [place] [address] pH (Bld) 7.47 [pH] High 7.38 - 7.42 [facility] Comment on above: Order Comment: CHUYITA BERLINVivian CALLED TO AMINATA ANTHONY RB., 04/19/2018 18:38 Performed By: #### A FPA3 ####[id number] [place] [address] Potassium [Moles/Vol] 2.8 mmol/L Critically low 3.5 - 5.3 [facility] Comment on above: Order Comment: CHUYITA BERLINVivian CALLED TO AMINATA ANTHONY RB., 04/19/2018 18:38 Result Comment: CHUYITA BERLINVivian CALLED TO AMINATA ATNHONY RB., 04/19/2018 18:38 Performed By: #### A FPA3 ####[id number] [place] [address] RBC (Bld) [#/Vol] 26.9 mmol/L High 22.0 - 26.0 [facility] Comment on above: Order Comment: CHUYITA BERLINVivian CALLED TO AMINATA ANTHONY RB., 04/19/2018 18:38 Performed By: #### A FPA3 ####[id number] [place] [address] SO2 96 % Normal 94 - 100 [facility] Comment on above: Order Comment: CRIT POTN CALLED TO AMINATA ANTHONY RB., 04/19/2018 18:38 Performed By: #### A FPA3 ####[id number] [place] [address] Sodium [Moles/Vol] 140 mmol/L Normal 136 - 145 [facility] Comment on above: Order Comment: CHUYITA PETERS CALLED TO AMINATA CRUZ RB., 04/19/2018 18:38 Performed By: #### A FPA3 ####[id number] [place] [address] Anion gap [Moles/Vol] 7 mmol/L Low 10 - 25 [facility] Comment on above: Order Comment: CRIT HGBNC CALLED RB TO CLARA PADGETT, 04/19/2018 04:00 Performed By: #### A FPA3 ####[id number] [place] [address] BASE EXCESS-BLOOD 7.6 mmol/L High -2.0 - 3.0 [facility] Comment on above: Order Comment: CRIT HGBNC CALLED RB TO CLARA PADGETT, 04/19/2018 04:00 Performed By: #### A FPA3 ####[id number] [place] [address] CALCIUM,IONIZED 1.13 mmol/L Normal 1.10 - 1.33 [facility] Comment on above: Order Comment: CRIT HGBNC CALLED RB TO CLARA PADGETT, 04/19/2018 04:00 Performed By: #### A FPA3 ####[id number] [place] [address] Chloride [Moles/Vol] 103 mmol/L Normal 98 - 107 [facility] Comment on above: Order Comment: CRIT HGBNC CALLED RB TO CLARA PADGETT, 04/19/2018 04:00 Performed By: #### A FPA3 ####[id number] [place] [address] Glucose [Mass/Vol] 73 mg/dL Low 74 - 99 [facility] Comment on above: Order Comment: CRIT HGBNC CALLED RB TO CLARA PADGETT, 04/19/2018 04:00 Performed By: #### A FPA3 ####[id number] [place] [address] Hematocrit (Bld) [Volume fraction] 17.0 % Low 41.0 - 52.0 [facility] Comment on above: Order Comment: CRIT HGBNC CALLED RB TO CLARA PADGETT, 04/19/2018 04:00 Performed By: #### A FPA3 ####[id number] [place] [address] HGB,CALCULATED 5.8 g/dL Critically low 13.5 - 17.5 [facility] Comment on above: Order Comment: CRIT HGBNC CALLED RB TO CLARA PADGETT, 04/19/2018 04:00 Result Comment: CRIT HGBNC CALLED RB TO CLARA PADGETT, 04/19/2018 04:00 Performed By: #### A FPA3 ####[id number] [place] [address] Lactate [Moles/Vol] 0.8 mmol/L Normal 0.4 - 2.0 [facility] Comment on above: Order Comment: CRIT HGBNC CALLED RB TO CLARA PADGETT, 04/19/2018 04:00 Performed By: #### A FPA3 ####[id number] [place] [address] Oxygen (Bld) [Partial pressure] 98 mm[Hg] High 85 - 95 [facility] Comment on above: Order Comment: CRIT HGBNC CALLED RB TO CLARA PADGETT, 04/19/2018 04:00 Performed By: #### A FPA3 ####[id number] [place] [address] PCO2 44 mmHg High 38 - 42 [facility] Comment on above: Order Comment: CRIT HGBNC CALLED RB TO CLARA PADGETT, 04/19/2018 04:00 Performed By: #### A FPA3 ####[id number] [place] [address] pH (Bld) 7.47 [pH] High 7.38 - 7.42 [facility] Comment on above: Order Comment: CRIT HGBNC CALLED RB TO CLARA PADGETT, 04/19/2018 04:00 Performed By: #### A FPA3 ####[id number] [place] [address] Potassium [Moles/Vol] 3.2 mmol/L Low 3.5 - 5.3 [facility] Comment on above: Order Comment: CRIT HGBNC CALLED RB TO CLARA PADGETT, 04/19/2018 04:00 Performed By: #### A FPA3 ####[id number] [place] [address] RBC (Bld) [#/Vol] 32.0 mmol/L High 22.0 - 26.0 [facility] Comment on above: Order Comment: CRIT HGBNC CALLED RB TO CLARA PADGETT, 04/19/2018 04:00 Performed By: #### A FPA3 ####[id number] [place] [address] SO2 99 % Normal 94 - 100 [facility] Comment on above: Order Comment: CRIT HGBNC CALLED RB TO CLARA PADGETT, 04/19/2018 04:00 Performed By: #### A FPA3 ####[id number] [place] [address] Sodium [Moles/Vol] 139 mmol/L Normal 136 - 145 [facility] Comment on above: Order Comment: CRIT HGBNC CALLED RB TO CLARA PADGETT, 04/19/2018 04:00 Performed By: #### A FPA3 ####[id number] [place] [address] CALCIUM, IONIZEDon CALCIUM,IONIZED 1.10 mmol/L Normal 1.10 - 1.33 [facility] Comment on above: Result Comment: The performance characteristics of ionized calcium tested in heparinized plasma or serum have been validated by the individual laboratory site where testing is performed. Testing on heparinized plasma or serum is not approved by the FDA; however, such approval is not necessary. Performed By: #### I ONC1 ####[id number] [place] [address] CALCIUM,IONIZED 1.10 mmol/L Normal 1.10 - 1.33 [facility] Comment on above: Result Comment: The performance characteristics of ionized calcium tested in heparinized plasma or serum have been validated by the individual laboratory site where testing is performed. Testing on heparinized plasma or serum is not approved by the FDA; however, such approval is not necessary. Performed By: #### I ONC1 ####[id number] [place] [address] CBCon 04-19-2018 Erythrocyte distribution width (RBC) [Ratio] 14.7 % High 11.5 - 14.5 [facility] Comment on above: Performed By: #### C BC ####[id number] [place] [address] Hematocrit (Bld) [Volume fraction] 25.6 % Low 41.0 - 52.0 [facility] Comment on above: Performed By: #### C BC ####[id number] [place] [address] Hemoglobin (Bld) [Mass/Vol] 9.5 g/dL Low 13.5 - 17.5 [facility] Comment on above: Performed By: #### C BC ####[id number] [place] [address] MCHC (RBC) [Mass/Vol] 37.1 g/dL High 32.0 - 36.0 [facility] Comment on above: Performed By: #### C BC ####[id number] [place] [address] MCV (RBC) [Entitic vol] 84 fL Normal 80 - 100 [facility] Comment on above: Performed By: #### C BC ####[id number] [place] [address] Nucleated RBC/100 WBC (Bld) [Ratio] 0.0 /100 WBC Normal 0.0-0.0 [facility] Comment on above: Performed By: #### C BC ####[id number] [place] [address] Platelets (Bld) [#/Vol] 137 10*3/uL Low 150 - 450 [facility] Comment on above: Performed By: #### C BC ####[id number] [place] [address] RBC (Bld) [#/Vol] 3.05 x10E12/L Low 4.50 - 5.90 [facility] Comment on above: Performed By: #### C BC ####[id number] [place] [address] WBC (Bld) [#/Vol] 8.6 10*3/uL Normal 4.4 - 11.3 [facility] Comment on above: Performed By: #### C BC ####[id number] [place] [address] Erythrocyte distribution width (RBC) [Ratio] 15.2 % High 11.5 - 14.5 [facility] Comment on above: Performed By: #### C BC ####[id number] [place] [address] Hematocrit (Bld) [Volume fraction] 27.5 % Low 41.0 - 52.0 [facility] Comment on above: Performed By: #### C BC ####[id number] [place] [address] Hemoglobin (Bld) [Mass/Vol] 9.6 g/dL Low 13.5 - 17.5 [facility] Comment on above: Performed By: #### C BC ####[id number] [place] [address] MCHC (RBC) [Mass/Vol] 34.9 g/dL Normal 32.0 - 36.0 [facility] Comment on above: Performed By: #### C BC ####[id number] [place] [address] MCV (RBC) [Entitic vol] 88 fL Normal 80 - 100 [facility] Comment on above: Performed By: #### C BC ####[id number] [place] [address] Nucleated RBC/100 WBC (Bld) [Ratio] 0.1 /100 WBC Normal 0.0-0.0 [facility] Comment on above: Performed By: #### C BC ####[id number] [place] [address] Platelets (Bld) [#/Vol] 136 10*3/uL Low 150 - 450 [facility] Comment on above: Performed By: #### C BC ####[id number] [place] [address] RBC (Bld) [#/Vol] 3.13 x10E12/L Low 4.50 - 5.90 [facility] Comment on above: Performed By: #### C BC ####[id number] [place] [address] WBC (Bld) [#/Vol] 8.8 10*3/uL Normal 4.4 - 11.3 [facility] Comment on above: Performed By: #### C BC ####[id number] [place] [address] COAGULATION SCREENon 019 aPTT Coag (Bld) [Time] 30 s Normal 28 - 38 [facility] Comment on above: Result Comment: Note new reference range as of 01/17/2018. THE APTT IS NO LONGER USED FOR MONITORING UNFRACTIONATED HEPARIN THERAPY. FOR MONITORING HEPARIN THERAPY, USE THE HEPARIN ASSAY. Performed By: #### C OAGS ####[id number] [place] [address] INR Coag (PPP) [Relative time] 1.0 {INR} Normal 0.9 - 1.1 [facility] Comment on above: Performed By: #### C OAGS ####[id number] [place] [address] PT Coag (PPP) [Time] 10.7 s Normal 9.7 - 12.7 [facility] Comment on above: Result Comment: Note new reference range as of 01/17/2018. Performed By: #### C OAGS ####[id number] [place] [address] aPTT Coag (Bld) [Time] 31 s Normal 28 - 38 [facility] Comment on above: Result Comment: Note new reference range as of 01/17/2018. THE APTT IS NO LONGER USED FOR MONITORING UNFRACTIONATED HEPARIN THERAPY. FOR MONITORING HEPARIN THERAPY, USE THE HEPARIN ASSAY. Performed By: #### C OAGS ####[id number] [place] [address] INR Coag (PPP) [Relative time] 1.0 {INR} Normal 0.9 - 1.1 [facility] Comment on above: Performed By: #### C OAGS ####[id number] [place] [address] PT Coag (PPP) [Time] 10.7 s Normal 9.7 - 12.7 [facility] Comment on above: Result Comment: Note new reference range as of 01/17/2018. Performed By: #### C OAGS ####[id number] [place] [address] Daily Progress Note - Critic al Care-SICU , [facility] 04-19-2018 Daily Progress [facility] Service: Critical Care [facility] Subject[facility] Data: ID Statement: ADEN PATEL is a 67 year old Male who is Hospital Day # 7 and ICU Day #4 and POD #2 for Exploratory laparotomy, evacuation hematoma, omentectomy, abthera wound vac. no events overnight. Objective Data: Objective Information T PRBPSpO2 Value37.6239903% Date/Time04/19 8: 7: 7: 7:00 Range(36.8C - 37.1C ) (67 - 80 ) (15 - 17 ) (97% - 99% ) As of 19-Apr-2018 04:00:00, patient is on 50% oxygen via ventilator assisted. Highest temp of 37.1 C was recorded at 04/19 8:00 Pain reported at 04/19 6:00: 0 Pain reported at 04/18 20:00: 2 Direct Arterial Blood Pressure Gulqotez301(117 - 157)04/19 7:00 Diastolic (mm Hg)67(46 - 68)04/19 7:00 Mean (mm Hg)91(65 - 94)04/19 7:00 Pulse Pressure (mm Hg)83(66 - 98)04/19 7:00 ---- Intake and Output ----- Mn/Dy/Year [facility]Int[facility]Out[facility] Apr 19, 2018 6:00 am961.17451-196 Apr 18, 2018 10:00 [phone] Apr 18, 2018 2:00 sp7894.73227-910 The Intake and Output Totals for the last 24 hours are: IntakeOutputNet [id number] Drain and tube details (included in I&O [...] Blood Gas Results 04/19/2018 03:51 pO298 pH7.47 hES279 SO299 Base Excess7.6 Knujvajwsiz33.0 Assessment and Plan: Daily Risk Screen: Does [...] History of HTN, evidence of old inferior [place] on EKG - MAPs between 65-80mmHg - [...] purple team care for now Team phone: [phone] Code Status: Code StatusFull Code Problem List: [...] Davis Del Valle) (Signed 19-Apr-2018 14:59) Authored: Signature/Cosignature/Attestmarkie baker Co-Signer: Service, Subjective Data, Objective Data, Assessment and Plan Matthew Joaquin (Resident)) (Signed 19-Apr-2018 14:40) Authored: Service, Subjective Data, Objective Data, Assessment and Plan Last Updated: 19-Apr-2018 14:59 by Davis Del Valle) [facility] Daily Progress Note-Colorect al Surgeryon 04-19-2018 [...] overnight. Objective Data: Objective Information: T PRBPSpO2 Value37.6512872% Date/Time04/19 8: 9: 9: 9:00 Range(36.8C - 37.1C ) (67 - 80 ) (11 - 17 ) (95% - 99% ) As of 19-Apr-2018 04:00:00, patient is on 50% oxygen via ventilator assisted. Highest temp of 37.1 C was recorded at 04/19 8:00 ---- Intake and Output ----- Mn/Dy/Year TimeIntakeOutputNet Apr 19, 2018 6:00 am961.02268-115 Apr 18, 2018 10:00 [phone] Apr 18, 2018 2:00 [phone] The Intake and Output Totals for the last 24 hours are: IntakeOutputNet [id number] Intake Output IV Fluids 2400 mL Urine [...] reviewed these laboratory results: Glucose_POCT Trending View Alylxa14-Klb-3933 07:35:00 19-Apr-2018 05:07:00 19-Apr-2018 00:32:00 Glucose-POCT84 82 [...] Full Panel 19-Apr-2018 03:51:00 ResultValue Lab Comment: [facility] CALLED RB TO CLARA PADGETT, 04/19/2018 04:00 [...] Dr. Colmenares. Marquez Bronson General Surgery, PGY-2 [facility] [address] Signature/Cosignature/Attesta tion: Attending AttestationI saw and evaluated [...] Updated: 20-Apr-2018 06:02 by Nolvia Colmenares) Normal [facility] Daily Progress Note-Renalon 04-19-2018 Daily [...] ----- Mn/Dy/Year TimeIntakeOutputNet Apr 19, 2018 6:00 am961.50087-056 Apr 18, 2018 10:00 [phone] Apr 18, 2018 2:00 of7095.49277-269 The Intake and Output Totals for the last 24 hours are: IntakeOutputNet [id number] T PRBPSpO2 Value37.2154909% Date/Time04/19 12: 11: 11: 11:00 Range(36.8C - [...] laboratory results: Renal Function Panel Trending View Uucmuk29-Tot-7756 05:15:00 18-Apr-2018 21:14:00 18-Apr-2018 10:00:00 Glucose, Serum68 L 74 85 NA142 142 141 K3.6 3.1 L 3.2 L CL102 100 99 Bicarbonate, Serum26 31 29 Anion Gap, Serum18 14 16 BUN46 H 49 H 54 H CREAT2.32 H 2.53 H 3.20 H GFR-Non Efvcqcft02 A 26 A 20 A GFR- Ytpirznr21 A 31 A 24 A Calcium, Serum7.6 [...] ~ 800 cc Plan: -No indication for [employer]ER BLASTING at this time - D5W 50 cc/hr for 1 L Rest as before - Target MAPs >70 for optimum renal perfusion. -Order FeNa, and FeUrea when possible. -Strict I&O's, Daily weights -Avoid nephrotoxic agents, hypotension, IV contrast, and NSAIDs when possible. -Renally dose medications. Will sign off, please let us known if we can be of any further assistance. Inés Henson MD, MS, FASVivian, SAMANTHA Nephrology fellow P [phone] Signature/Cosignature/Attesta tion: Comments/ Additional Findings I personally visited and examined the patient on 04/19/2018. I reviewed the chart and discussed all new findings, thibodeaux points and treatment plan with fellow. I agree with note as above. Electronic Signatures: Inés Henson ( (Resident)) (Signed 19-Apr-2018 11:53) Authored: Service, Subjective Data, Objective Data, Assessment and Plan Seamus Parra) (Signed 19-Apr-2018 20:06) Authored: Signature/Cosignature/Attesta tion Co-Signer: Service, Subjective Data, Objective Data, Assessment and Plan Last Updated: 19-Apr-2018 20:06 by Seamus Parra) Normal [facility] GLUCOSE-POCTon 04-19-2018 Glucose [Mass/Vol] 81 mg/dL Normal 74 - 99 [facility] Comment on above: Performed By: #### G VAISHALI ####[id number] [place] [address] Glucose [Mass/Vol] 81 mg/dL Normal 74 - 99 [facility] Comment on above: Performed By: #### G VAISHALI ####[id number] [place] [address] Glucose [Mass/Vol] 76 mg/dL Normal 74 - 99 [facility] Comment on above: Performed By: #### G VAISHALI ####[id number] [place] [address] Glucose [Mass/Vol] 84 mg/dL Normal 74 - 99 [facility] Comment on above: Performed By: #### G VAISHALI ####[id number] [place] [address] Glucose [Mass/Vol] 82 mg/dL Normal 74 - 99 [facility] Comment on above: Performed By: #### G VAISHALI ####[id number] [place] [address] Glucose [Mass/Vol] 81 mg/dL Normal 74 - 99 [facility] Comment on above: Performed By: #### G VAISHALI ####[id number] [place] [address] MAGNESIUMon 04-19-2018 Magnesium [Mass/Vol] 2.33 mg/dL Normal 1.60 - 2.40 [facility] Comment on above: Performed By: #### M G ####[id number] [place] [address] Magnesium [Mass/Vol] 2.33 mg/dL Normal 1.60 - 2.40 [facility] Comment on above: Performed By: #### M G ####[id number] [place] [address] RENAL FUNCTION PANELon 04-19 Albumin [Mass/Vol] 2.6 g/dL Low 3.4 - 5.0 [facility] Comment on above: Performed By: #### R ENAL ####[id number] [place] [address] Anion gap [Moles/Vol] 15 mmol/L Normal 10 - 20 [facility] Comment on above: Performed By: #### R ENAL ####[id number] [place] [address] Calcium [Mass/Vol] 7.8 mg/dL Low 8.6 - 10.6 [facility] Comment on above: Performed By: #### R ENAL ####[id number] [place] [address] Chloride [Moles/Vol] 106 mmol/L Normal 98 - 107 [facility] Comment on above: Performed By: #### R ENAL ####[id number] [place] [address] Creatinine [Mass/Vol] 1.65 mg/dL High 0.50 - 1.30 [facility] Comment on above: Performed By: #### R ENAL ####[id number] [place] [address] GFR- AM. 51 mL/min/1.73m2 Abnormal >60 [facility] Comment on above: Result Comment: CALC ULATIONS OF ESTIMATED GFR ARE PERFORMED USING THE MDRD STUDY EQUATION FOR THE IDMS-TRACEABLE CREATININE METHODS. CLIN CHEM 2007;53:766-72 Performed By: #### R ENAL ####[id number] [place] [address] GFR-NON AM. 42 mL/min/1.73m2 Abnormal >60 [facility] Comment on above: Performed By: #### R ENAL ####[id number] [place] [address] Glucose [Mass/Vol] 70 mg/dL Low 74 - 99 [facility] Comment on above: Performed By: #### R ENAL ####[id number] [place] [address] HCO3 (Bld) [Moles/Vol] 28 mmol/L Normal 21 - 32 [facility] Comment on above: Performed By: #### R ENAL ####[id number] [place] [address] Phosphate [Mass/Vol] 2.8 mg/dL Normal 2.5 - 4.9 [facility] Comment on above: Result Comment: The performance characteristics of phosphorus testing in heparinized plasma have been validated by the individual laboratory site where testing is performed. Testing on heparinized plasma is not approved by the FDA; however, such approval is not necessary. Performed By: #### R ENAL ####[id number] [place] [address] Potassium [Moles/Vol] 3.2 mmol/L Low 3.5 - 5.3 [facility] Comment on above: Performed By: #### R ENAL ####[id number] [place] [address] Sodium [Moles/Vol] 146 mmol/L High 136 - 145 [facility] Comment on above: Performed By: #### R ENAL ####[id number] [place] [address] Urea nitrogen [Mass/Vol] 43 mg/dL High 6 - 23 [facility] Comment on above: Performed By: #### R ENAL ####[id number] [place] [address] Albumin [Mass/Vol] 2.5 g/dL Low 3.4 - 5.0 [facility] Comment on above: Performed By: #### R ENAL ####[id number] [place] [address] Anion gap [Moles/Vol] 15 mmol/L Normal 10 - 20 [facility] Comment on above: Performed By: #### R ENAL ####[id number] [place] [address] Calcium [Mass/Vol] 7.8 mg/dL Low 8.6 - 10.6 [facility] Comment on above: Performed By: #### R ENAL ####[id number] [place] [address] Chloride [Moles/Vol] 104 mmol/L Normal 98 - 107 [facility] Comment on above: Performed By: #### R ENAL ####[id number] [place] [address] Creatinine [Mass/Vol] 1.95 mg/dL High 0.50 - 1.30 [facility] Comment on above: Performed By: #### R ENAL ####[id number] [place] [address] GFR- AM. 42 mL/min/1.73m2 Abnormal >60 [facility] Comment on above: Result Comment: CALC ULATIONS OF ESTIMATED GFR ARE PERFORMED USING THE MDRD STUDY EQUATION FOR THE IDMS-TRACEABLE CREATININE METHODS. CLIN CHEM 2007;53:766-72 Performed By: #### R ENAL ####[id number] [place] [address] GFR-NON AM. 35 mL/min/1.73m2 Abnormal >60 [facility] Comment on above: Performed By: #### R ENAL ####[id number] [place] [address] Glucose [Mass/Vol] 70 mg/dL Low 74 - 99 [facility] Comment on above: Performed By: #### R ENAL ####[id number] [place] [address] HCO3 (Bld) [Moles/Vol] 29 mmol/L Normal 21 - 32 [facility] Comment on above: Performed By: #### R ENAL ####[id number] [place] [address] Phosphate [Mass/Vol] 3.1 mg/dL Normal 2.5 - 4.9 [facility] Comment on above: Result Comment: The performance characteristics of phosphorus testing in heparinized plasma have been validated by the individual laboratory site where testing is performed. Testing on heparinized plasma is not approved by the FDA; however, such approval is not necessary. Performed By: #### R ENAL ####[id number] [place] [address] Potassium [Moles/Vol] 3.5 mmol/L Normal 3.5 - 5.3 [facility] Comment on above: Performed By: #### R ENAL ####[id number] [place] [address] Sodium [Moles/Vol] 144 mmol/L Normal 136 - 145 [facility] Comment on above: Performed By: #### R ENAL ####[id number] [place] [address] Urea nitrogen [Mass/Vol] 46 mg/dL High 6 - 23 [facility] Comment on above: Performed By: #### R ENAL ####[id number] [place] [address] Albumin [Mass/Vol] 2.5 g/dL Low 3.4 - 5.0 [facility] Comment on above: Performed By: #### R ENAL ####[id number] [place] [address] Anion gap [Moles/Vol] 18 mmol/L Normal 10 - 20 [facility] Comment on above: Performed By: #### R ENAL ####[id number] [place] [address] Calcium [Mass/Vol] 7.6 mg/dL Low 8.6 - 10.6 [facility] Comment on above: Performed By: #### R ENAL ####[id number] [place] [address] Chloride [Moles/Vol] 102 mmol/L Normal 98 - 107 [facility] Comment on above: Performed By: #### R ENAL ####[id number] [place] [address] Creatinine [Mass/Vol] 2.32 mg/dL High 0.50 - 1.30 [facility] Comment on above: Performed By: #### R ENAL ####[id number] [place] [address] GFR- AM. 34 mL/min/1.73m2 Abnormal >60 [facility] Comment on above: Result Comment: CALC ULATIONS OF ESTIMATED GFR ARE PERFORMED USING THE MDRD STUDY EQUATION FOR THE IDMS-TRACEABLE CREATININE METHODS. CLIN CHEM 2007;53:766-72 Performed By: #### R ENAL ####[id number] [place] [address] GFR-NON AM. 28 mL/min/1.73m2 Abnormal >60 [facility] Comment on above: Performed By: #### R ENAL ####[id number] [place] [address] Glucose [Mass/Vol] 68 mg/dL Low 74 - 99 [facility] Comment on above: Performed By: #### R ENAL ####[id number] [place] [address] HCO3 (Bld) [Moles/Vol] 26 mmol/L Normal 21 - 32 [facility] Comment on above: Performed By: #### R ENAL ####[id number] [place] [address] Phosphate [Mass/Vol] 3.5 mg/dL Normal 2.5 - 4.9 [facility] Comment on above: Result Comment: The performance characteristics of phosphorus testing in heparinized plasma have been validated by the individual laboratory site where testing is performed. Testing on heparinized plasma is not approved by the FDA; however, such approval is not necessary. Performed By: #### R ENAL ####[id number] [place] [address] Potassium [Moles/Vol] 3.6 mmol/L Normal 3.5 - 5.3 [facility] Comment on above: Performed By: #### R ENAL ####[id number] [place] [address] Sodium [Moles/Vol] 142 mmol/L Normal 136 - 145 [facility] Comment on above: Performed By: #### R ENAL ####[id number] [place] [address] Urea nitrogen [Mass/Vol] 46 mg/dL High 6 - 23 [facility] Comment on above: Performed By: #### R ENAL ####[id number] [place] [address] Albumin [Mass/Vol] 2.6 g/dL Low 3.4 - 5.0 [facility] Comment on above: Performed By: #### R ENAL ####[id number] [place] [address] Anion gap [Moles/Vol] 14 mmol/L Normal 10 - 20 [facility] Comment on above: Performed By: #### R ENAL ####[id number] [place] [address] Calcium [Mass/Vol] 8.0 mg/dL Low 8.6 - 10.6 [facility] Comment on above: Performed By: #### R ENAL ####[id number] [place] [address] Chloride [Moles/Vol] 100 mmol/L Normal 98 - 107 [facility] Comment on above: Performed By: #### R ENAL ####[id number] [place] [address] Creatinine [Mass/Vol] 2.53 mg/dL High 0.50 - 1.30 [facility] Comment on above: Performed By: #### R ENAL ####[id number] [place] [address] GFR- AM. 31 mL/min/1.73m2 Abnormal >60 [facility] Comment on above: Result Comment: CALC ULATIONS OF ESTIMATED GFR ARE PERFORMED USING THE MDRD STUDY EQUATION FOR THE IDMS-TRACEABLE CREATININE METHODS. CLIN CHEM 2007;53:766-72 Performed By: #### R ENAL ####[id number] [place] [address] GFR-NON AM. 26 mL/min/1.73m2 Abnormal >60 [facility] Comment on above: Performed By: #### R ENAL ####[id number] [place] [address] Glucose [Mass/Vol] 74 mg/dL Normal 74 - 99 [facility] Comment on above: Performed By: #### R ENAL ####[id number] [place] [address] HCO3 (Bld) [Moles/Vol] 31 mmol/L Normal 21 - 32 [facility] Comment on above: Performed By: #### R ENAL ####[id number] [place] [address] Phosphate [Mass/Vol] 3.8 mg/dL Normal 2.5 - 4.9 [facility] Comment on above: Result Comment: The performance characteristics of phosphorus testing in heparinized plasma have been validated by the individual laboratory site where testing is performed. Testing on heparinized plasma is not approved by the FDA; however, such approval is not necessary. Performed By: #### R ENAL ####[id number] [place] [address] Potassium [Moles/Vol] 3.1 mmol/L Low 3.5 - 5.3 [facility] Comment on above: Performed By: #### R ENAL ####[id number] [place] [address] Sodium [Moles/Vol] 142 mmol/L Normal 136 - 145 [facility] Comment on above: Performed By: #### R ENAL ####[id number] [place] [address] Urea nitrogen [Mass/Vol] 49 mg/dL High 6 - 23 [facility] Comment on above: Performed By: #### R ENAL ####[id number] [place] [address] TH CHEST 1 VIEWon 04-19-2018 TH CHEST 1 VIEW Patient Name: ADEN PATEL STUDY: TH CHEST 1 VIEW; 04/19/2018 7:15 am INDICATION: Signs/Symptoms: AM rounds. COMPARISON: 04/18/2018 ACCESSION NUMBER(S): [id number] ORDERING CLINICIAN: CLARA PADGETT FINDINGS: Life-support systems in satisfactory position CARDIOMEDIASTINAL SILHOUETTE: Cardiomegaly versus pericardial effusion LUNGS: Basilar atelectasis and perihilar edema. No pneumothorax. ABDOMEN: No remarkable upper abdominal findings. BONES: No acute osseous changes. IMPRESSION: 1. Perihilar edema with basilar atelectasis and effusion. No pneumothorax. Electronically signed by: Mason SHIELDS MD Normal [facility] ARTERIAL FULL PANELon 2018 Anion gap [Moles/Vol] 9 mmol/L Low 10 - 25 [facility] Comment on above: Performed By: #### A FPA3 ####[id number] [place] [address] BASE EXCESS-BLOOD 5.5 mmol/L High -2.0 - 3.0 [facility] Comment on above: Performed By: #### A FPA3 ####[id number] [place] [address] CALCIUM,IONIZED 0.99 mmol/L Low 1.10 - 1.33 [facility] Comment on above: Performed By: #### A FPA3 ####[id number] [place] [address] Chloride [Moles/Vol] 99 mmol/L Normal 98 - 107 [facility] Comment on above: Performed By: #### A FPA3 ####[id number] [place] [address] Glucose [Mass/Vol] 93 mg/dL Normal 74 - 99 [facility] Comment on above: Performed By: #### A FPA3 ####[id number] [place] [address] Hematocrit (Bld) [Volume fraction] 25.0 % Low 41.0 - 52.0 [facility] Comment on above: Performed By: #### A FPA3 ####[id number] [place] [address] HGB,CALCULATED 8.5 g/dL Low 13.5 - 17.5 [facility] Comment on above: Performed By: #### A FPA3 ####[id number] [place] [address] Lactate [Moles/Vol] 0.9 mmol/L Normal 0.4 - 2.0 [facility] Comment on above: Performed By: #### A FPA3 ####[id number] [place] [address] Oxygen (Bld) [Partial pressure] 80 mm[Hg] Low 85 - 95 [facility] Comment on above: Performed By: #### A FPA3 ####[id number] [place] [address] PCO2 42 mmHg Normal 38 - 42 [facility] Comment on above: Performed By: #### A FPA3 ####[id number] [place] [address] pH (Bld) 7.46 [pH] High 7.38 - 7.42 [facility] Comment on above: Performed By: #### A FPA3 ####[id number] [place] [address] Potassium [Moles/Vol] 3.4 mmol/L Low 3.5 - 5.3 [facility] Comment on above: Performed By: #### A FPA3 ####[id number] [place] [address] RBC (Bld) [#/Vol] 29.9 mmol/L High 22.0 - 26.0 [facility] Comment on above: Performed By: #### A FPA3 ####[id number] [place] [address] SO2 98 % Normal 94 - 100 [facility] Comment on above: Performed By: #### A FPA3 ####[id number] [place] [address] Sodium [Moles/Vol] 134 mmol/L Low 136 - 145 [facility] Comment on above: Performed By: #### A FPA3 ####[id number] [place] [address] CALCIUM, IONIZEDon 9 CALCIUM,IONIZED 1.04 mmol/L Low 1.10 - 1.33 [facility] Comment on above: Result Comment: The performance characteristics of ionized calcium tested in heparinized plasma or serum have been validated by the individual laboratory site where testing is performed. Testing on heparinized plasma or serum is not approved by the FDA; however, such approval is not necessary. Performed By: #### I ONC1 ####[id number] [place] [address] CALCIUM,IONIZED 0.95 mmol/L Low 1.10 - 1.33 [facility] Comment on above: Result Comment: The performance characteristics of ionized calcium tested in heparinized plasma or serum have been validated by the individual laboratory site where testing is performed. Testing on heparinized plasma or serum is not approved by the FDA; however, such approval is not necessary. Performed By: #### I ONC1 ####[id number] [place] [address] CBCon 04-18-2018 Erythrocyte distribution width (RBC) [Ratio] 15.3 % High 11.5 - 14.5 [facility] Comment on above: Performed By: #### C BC ####[id number] [place] [address] Hematocrit (Bld) [Volume fraction] 27.9 % Low 41.0 - 52.0 [facility] Comment on above: Performed By: #### C BC ####[id number] [place] [address] Hemoglobin (Bld) [Mass/Vol] 9.5 g/dL Low 13.5 - 17.5 [facility] Comment on above: Performed By: #### C BC ####[id number] [place] [address] MCHC (RBC) [Mass/Vol] 34.1 g/dL Normal 32.0 - 36.0 [facility] Comment on above: Performed By: #### C BC ####[id number] [place] [address] MCV (RBC) [Entitic vol] 90 fL Normal 80 - 100 [facility] Comment on above: Performed By: #### C BC ####[id number] [place] [address] Nucleated RBC/100 WBC (Bld) [Ratio] 0.0 /100 WBC Normal 0.0-0.0 [facility] Comment on above: Performed By: #### C BC ####[id number] [place] [address] Platelets (Bld) [#/Vol] 133 10*3/uL Low 150 - 450 [facility] Comment on above: Performed By: #### C BC ####[id number] [place] [address] RBC (Bld) [#/Vol] 3.09 x10E12/L Low 4.50 - 5.90 [facility] Comment on above: Performed By: #### C BC ####[id number] [place] [address] WBC (Bld) [#/Vol] 9.6 10*3/uL Normal 4.4 - 11.3 [facility] Comment on above: Performed By: #### C BC ####[id number] [place] [address] Erythrocyte distribution width (RBC) [Ratio] 14.9 % High 11.5 - 14.5 [facility] Comment on above: Performed By: #### C BC ####[id number] [place] [address] Hematocrit (Bld) [Volume fraction] 27.5 % Low 41.0 - 52.0 [facility] Comment on above: Performed By: #### C BC ####[id number] [place] [address] Hemoglobin (Bld) [Mass/Vol] 9.4 g/dL Low 13.5 - 17.5 [facility] Comment on above: Performed By: #### C BC ####[id number] [place] [address] MCHC (RBC) [Mass/Vol] 34.2 g/dL Normal 32.0 - 36.0 [facility] Comment on above: Performed By: #### C BC ####[id number] [place] [address] MCV (RBC) [Entitic vol] 90 fL Normal 80 - 100 [facility] Comment on above: Performed By: #### C BC ####[id number] [place] [address] Nucleated RBC/100 WBC (Bld) [Ratio] 0.1 /100 WBC Normal 0.0-0.0 [facility] Comment on above: Performed By: #### C BC ####[id number] [place] [address] Platelets (Bld) [#/Vol] 132 10*3/uL Low 150 - 450 [facility] Comment on above: Performed By: #### C BC ####[id number] [place] [address] RBC (Bld) [#/Vol] 3.06 x10E12/L Low 4.50 - 5.90 [facility] Comment on above: Performed By: #### C BC ####[id number] [place] [address] WBC (Bld) [#/Vol] 9.6 10*3/uL Normal 4.4 - 11.3 [facility] Comment on above: Performed By: #### C BC ####[id number] [place] [address] COAGULATION SCREENon 019 aPTT Coag (Bld) [Time] 32 s Normal 28 - 38 [facility] Comment on above: Result Comment: Note new reference range as of 01/17/2018. THE APTT IS NO LONGER USED FOR MONITORING UNFRACTIONATED HEPARIN THERAPY. FOR MONITORING HEPARIN THERAPY, USE THE HEPARIN ASSAY. Performed By: #### C OAGS ####[id number] [place] [address] INR Coag (PPP) [Relative time] 1.1 {INR} Normal 0.9 - 1.1 [facility] Comment on above: Performed By: #### C OAGS ####[id number] [place] [address] PT Coag (PPP) [Time] 11.7 s Normal 9.7 - 12.7 [facility] Comment on above: Result Comment: Note new reference range as of 01/17/2018. Performed By: #### C OAGS ####[id number] [place] [address] aPTT Coag (Bld) [Time] 34 s Normal 28 - 38 [facility] Comment on above: Result Comment: Note new reference range as of 01/17/2018. THE APTT IS NO LONGER USED FOR MONITORING UNFRACTIONATED HEPARIN THERAPY. FOR MONITORING HEPARIN THERAPY, USE THE HEPARIN ASSAY. Performed By: #### C OAGS ####[id number] [place] [address] INR Coag (PPP) [Relative time] 1.1 {INR} Normal 0.9 - 1.1 [facility] Comment on above: Performed By: #### C OAGS ####[id number] [place] [address] PT Coag (PPP) [Time] 11.8 s Normal 9.7 - 12.7 [facility] Comment on above: Result Comment: Note new reference range as of 01/17/2018. Performed By: #### C OAGS ####[id number] [place] [address] CREATINE KINASEon 04-18-2018 CK [Catalytic activity/Vol] Canceled Normal [facility] Comment on above: Order Comment: TEST CREATINE KINASE WAS CANCELLED, 04/18/2018 02:36 DUPLICATE ORDER. Performed By: #### C K ####[id number] [place] [address] Daily Progress Note - Critic al Care-SICUon [...] sedated. Objective Data: Objective Information T PRBPSpO2 Value37.54230061/6598% Date/Time04/18 4: 7: 7: 6: 7:00 Range(36.8C - 37.4C ) (71 - 100 ) (13 - 20 ) (96 - 131 )/ (56 - 69 ) (80% - 100% ) As of 18-Apr-2018 04:00:00, patient is on 50% oxygen via ventilator assisted. Highest temp of 37.4 C was recorded at 04/17 16:00 Pain reported at 04/18 4:00: 0 Direct Arterial Blood Pressure Cqpjzmbp880(89 - 171)04/18 7:00 Diastolic (mm Hg)56(42 - 80)04/18 7:00 Mean (mm Hg)79(56 - 113)04/18 7:00 Pulse Pressure (mm Hg)68(45 - 92)04/18 7:00 ---- Intake and Output ----- Mn/Dy/Year TimeIntakeOutputNet Apr 18, 2018 6:00 [id number] Apr 17, 2018 10:00 [id number] Apr 17, 2018 2:00 si0929.23720055 The Intake and Output Totals for the last 24 hours are: IntakeOutputNet [id number] Drain and tube details (included in I&O [...] h range: ( 7.33 - 7.46 ) wHN368 24 h range: ( 42 - 52 ) SO298 24 h range: ( 90 - 99 ) Base Excess5.5 24 h range: ( 0.9 - 5.5 ) Gappeefaaiq35.9 24 h range: ( 27.4 - 29.9 [...] History of HTN, evidence of old inferior [place] on EKG - Levophed gtt, titrate to [...] purple team care for now Team phone: [phone] Code Status: Code StatusFull Code Comorbidities: Comorbidity: [...] detail. Electronic Signatures: Davis Del Valle) (Signed 18-Apr-2018 14:18) Authored: Signature/Cosignature/Attesta tion Co-Signer: Objective Data, Assessment and Plan, Signature/Cosignature/Attesta tion Yovany Ayers (Resident)) (Signed 18-Apr-2018 11:49) Authored: Service, Subjective Data, Objective Data, Assessment and Plan, Signature/Cosignature/Attesta tion Last Updated: 18-Apr-2018 14:18 by Davis Del Valle) [facility] Daily Progress Note-Colorect al Surgeryon 04-18-2018 [...] overnight. Objective Data: Objective Information: T PRBPSpO2 Value36.51170259/6598% Date/Time04/18 8:001 10: 10: 6:301 10:00 Range(36.6C - 37.4C ) (71 - 86 ) (13 - 20 ) (96 - 131 )/ (56 - 69 ) (80% - 100% ) As of 18-Apr-2018 08:00:00, patient is on 50% oxygen via ventilator assisted. Highest temp of 37.4 C was recorded at 04/17 16:00 ---- Intake and Output ----- Mn/Dy/[facility] Apr 18, 2018 6:00 [id number] Apr 17, 2018 10:00 [id number] Apr 17, 2018 2:00 [id number] The Intake and Output Totals for the last 24 hours are: [id number] Intake Output IV Fluids 5375 mL Urine [...] Time 32 Complete Blood Count Trending View Rpuhho54-Avq-2074 10:00:00 18-Apr-2018 01:12:00 White Blood Cell Count9.6 9.6 Nucleated Erythrocyte Count0.0 0.1 Red Blood Cell Count3.09 L 3.06 L HGB9.5 L 9.4 L HCT27.9 L 27.5 L MCV90 90 MCHC34.1 34.2 GLA137 L 132 L RDW-CV15.3 H 14.9 H [...] ResultValue Magnesium, Serum 2.25 Glucose_POCT Trending View Lwybmk73-Uel-1312 08:49:00 18-Apr-2018 04:10:00 Glucose-POCT87 93 Radiology Results: [...] Dr. Colmenares. Marquez [facility] General Surgery, PGY-2 [place] [address] Signature/Cosignature/Attesta tion: Attending AttestationI saw and evaluated [...] Updated: 20-Apr-2018 06:01 by Nolvia Colmenares) Normal [facility] Daily Progress Note-Renalon 04-18-2018 Daily [...] ----- Mn/Dy/Year TimeIntakeOutputNet Apr 18, 2018 6:00 ln4914.984919-860 Apr 17, 2018 10:00 ty8605.841382581 Apr 17, 2018 2:00 yk0331.74707081 The Intake and Output Totals for the last 24 hours are: IntakeOutputNet [id number] T PRBPSpO2 Value36.16672912/6598% Date/Time04/18 8: 11: 11: 6: 11:00 Range(36.6C [...] 15.3 H Renal Function Panel Trending View Cijmso13-Mmh-5094 10:00:00 18-Apr-2018 01:12:00 Glucose, Serum85 97 NA141 140 K3.2 L 3.7 CL99 99 Bicarbonate, Serum29 28 Anion Gap, Serum16 17 BUN54 H 57 H CREAT3.20 H 3.72 H GFR-Non Jyrjixpq41 A 16 A GFR- Qhjtamxa86 A 19 A Calcium, Serum7.6 L 7.4 [...] you are doing Plan: -No indication for [employer] BLASTING. Family are verbally agreeable as needed Rest as before - Target MAPs >70 for optimum renal perfusion. -Order FeNa, and FeUrea when possible. -Strict I&O's, Daily weights -Avoid nephrotoxic agents, hypotension, IV contrast, and NSAIDs when possible. -Renally dose medications. Inés Henson MD, MS, FASN, SAMANTHA Nephrology fellow P [phone] Signature/Cosignature/Attesta tion: Comments/ Additional Findings I personally visited and examined the patient on 04/18/2018. I reviewed the chart and discussed all new findings, thibodeaux points and treatment plan with fellow. I agree with note as above. Electronic Signatures: Inés Henson (Resident)) (Signed 18-Apr-2018 11:33) Authored: Service, Subjective Data, Objective Data, Assessment and Plan Seamus Parra) (Signed 18-Apr-2018 20:42) Authored: Signature/Cosignature/Attestmarkie maloneon Co-Signer: Service, Subjective Data, Objective Data, Assessment and Plan Last Updated: 18-Apr-2018 20:42 by Seamus Parra) Normal [facility] FIBRINOGENon 04-18-2018 FIBRINOGEN 451 mg/dL High 200 - 400 [facility] Comment on above: Performed By: #### F IB ####[id number] [place] [address] GLUCOSE-POCTon 04-18-2018 Glucose [Mass/Vol] 87 mg/dL Normal 74 - 99 [facility] Comment on above: Performed By: #### G VAISHALI ####[id number] [place] [address] Glucose [Mass/Vol] 81 mg/dL Normal 74 - 99 [facility] Comment on above: Performed By: #### G VAISHALI ####[id number] [place] [address] Glucose [Mass/Vol] 92 mg/dL Normal 74 - 99 [facility] Comment on above: Performed By: #### G VAISHALI ####[id number] [place] [address] Glucose [Mass/Vol] 87 mg/dL Normal 74 - 99 [facility] Comment on above: Performed By: #### G VAISHALI ####[id number] [place] [address] Glucose [Mass/Vol] 93 mg/dL Normal 74 - 99 [facility] Comment on above: Performed By: #### G VAISHALI ####[id number] [place] [address] Glucose [Mass/Vol] 103 mg/dL High 74 - 99 [facility] Comment on above: Performed By: #### G VAISHALI ####[id number] [place] [address] MAGNESIUMon 04-18-2018 Magnesium [Mass/Vol] 2.25 mg/dL Normal 1.60 - 2.40 [facility] Comment on above: Performed By: #### M G ####[id number] [place] [address] Magnesium [Mass/Vol] 2.19 mg/dL Normal 1.60 - 2.40 [facility] Comment on above: Performed By: #### M G ####[id number] [place] [address] RENAL FUNCTION PANELon 04-18 Albumin [Mass/Vol] 2.6 g/dL Low 3.4 - 5.0 [facility] Comment on above: Performed By: #### R ENAL ####[id number] [place] [address] Anion gap [Moles/Vol] 16 mmol/L Normal 10 - 20 [facility] Comment on above: Performed By: #### R ENAL ####[id number] [place] [address] Calcium [Mass/Vol] 7.6 mg/dL Low 8.6 - 10.6 [facility] Comment on above: Performed By: #### R ENAL ####[id number] [place] [address] Chloride [Moles/Vol] 99 mmol/L Normal 98 - 107 [facility] Comment on above: Performed By: #### R ENAL ####[id number] [place] [address] Creatinine [Mass/Vol] 3.20 mg/dL High 0.50 - 1.30 [facility] Comment on above: Performed By: #### R ENAL ####[id number] [place] [address] GFR- AM. 24 mL/min/1.73m2 Abnormal >60 [facility] Comment on above: Result Comment: CALC ULATIONS OF ESTIMATED GFR ARE PERFORMED USING THE MDRD STUDY EQUATION FOR THE IDMS-TRACEABLE CREATININE METHODS. CLIN CHEM 2007;53:766-72 Performed By: #### R ENAL ####[id number] [place] [address] GFR-NON AM. 20 mL/min/1.73m2 Abnormal >60 [facility] Comment on above: Performed By: #### R ENAL ####[id number] [place] [address] Glucose [Mass/Vol] 85 mg/dL Normal 74 - 99 [facility] Comment on above: Performed By: #### R ENAL ####[id number] [place] [address] HCO3 (Bld) [Moles/Vol] 29 mmol/L Normal 21 - 32 [facility] Comment on above: Performed By: #### R ENAL ####[id number] [place] [address] Phosphate [Mass/Vol] 4.2 mg/dL Normal 2.5 - 4.9 [facility] Comment on above: Result Comment: The performance characteristics of phosphorus testing in heparinized plasma have been validated by the individual laboratory site where testing is performed. Testing on heparinized plasma is not approved by the FDA; however, such approval is not necessary. Performed By: #### R ENAL ####[id number] [place] [address] Potassium [Moles/Vol] 3.2 mmol/L Low 3.5 - 5.3 [facility] Comment on above: Performed By: #### R ENAL ####[id number] [place] [address] Sodium [Moles/Vol] 141 mmol/L Normal 136 - 145 [facility] Comment on above: Performed By: #### R ENAL ####[id number] [place] [address] Urea nitrogen [Mass/Vol] 54 mg/dL High 6 - 23 [facility] Comment on above: Performed By: #### R ENAL ####[id number] [place] [address] Albumin [Mass/Vol] 2.8 g/dL Low 3.4 - 5.0 [facility] Comment on above: Performed By: #### R ENAL ####[id number] [place] [address] Anion gap [Moles/Vol] 17 mmol/L Normal 10 - 20 [facility] Comment on above: Performed By: #### R ENAL ####[id number] [place] [address] Calcium [Mass/Vol] 7.4 mg/dL Low 8.6 - 10.6 [facility] Comment on above: Performed By: #### R ENAL ####[id number] [place] [address] Chloride [Moles/Vol] 99 mmol/L Normal 98 - 107 [facility] Comment on above: Performed By: #### R ENAL ####[id number] [place] [address] Creatinine [Mass/Vol] 3.72 mg/dL High 0.50 - 1.30 [facility] Comment on above: Performed By: #### R ENAL ####[id number] [place] [address] GFR- AM. 19 mL/min/1.73m2 Abnormal >60 [facility] Comment on above: Result Comment: CALC ULATIONS OF ESTIMATED GFR ARE PERFORMED USING THE MDRD STUDY EQUATION FOR THE IDMS-TRACEABLE CREATININE METHODS. CLIN CHEM 2007;53:766-72 Performed By: #### R ENAL ####[id number] [place] [address] GFR-NON AM. 16 mL/min/1.73m2 Abnormal >60 [facility] Comment on above: Performed By: #### R ENAL ####[id number] [place] [address] Glucose [Mass/Vol] 97 mg/dL Normal 74 - 99 [facility] Comment on above: Performed By: #### R ENAL ####[id number] [place] [address] HCO3 (Bld) [Moles/Vol] 28 mmol/L Normal 21 - 32 [facility] Comment on above: Performed By: #### R ENAL ####[id number] [place] [address] Phosphate [Mass/Vol] 4.8 mg/dL Normal 2.5 - 4.9 [facility] Comment on above: Result Comment: The performance characteristics of phosphorus testing in heparinized plasma have been validated by the individual laboratory site where testing is performed. Testing on heparinized plasma is not approved by the FDA; however, such approval is not necessary. Performed By: #### R ENAL ####[id number] [place] [address] Potassium [Moles/Vol] 3.7 mmol/L Normal 3.5 - 5.3 [facility] Comment on above: Performed By: #### R ENAL ####[id number] [place] [address] Sodium [Moles/Vol] 140 mmol/L Normal 136 - 145 [facility] Comment on above: Performed By: #### R ENAL ####[id number] [place] [address] Urea nitrogen [Mass/Vol] 57 mg/dL High 6 - 23 [facility] Comment on above: Performed By: #### R ENAL ####[id number] [place] [address] REQUEST-LEUKOREDUCED RED DANNY LSon 04-18-2018 REQUEST-LEUKOREDU MABEL RED CELLS ORDER RECD Normal [facility] Comment on above: Performed By: #### O CONVENTION SERVICES DIRECTOR ####[id number] [place] [address] TH CHEST 1 VIEWon 04-18-2018 TH CHEST 1 VIEW Patient Name: ADEN PATEL STUDY: TH CHEST 1 VIEW; 04/18/2018 6:59 am INDICATION: Signs/Symptoms: AM rounds. COMPARISON: Chest radiograph from 04/17/2018 ACCESSION NUMBER(S): [id number] ORDERING CLINICIAN: CLARA PADGETT FINDINGS: Endotracheal tube [...] Electronically signed by: KIKI QUEZADA MD Normal [facility] ARTERIAL FULL PANELon 2018 Anion gap [Moles/Vol] 10 mmol/L Normal 10 - 25 [facility] Comment on above: Performed By: #### A FPA3 ####[id number] [place] [address] BASE EXCESS-BLOOD 4.8 mmol/L High -2.0 - 3.0 [facility] Comment on above: Performed By: #### A FPA3 ####[id number] [place] [address] CALCIUM,IONIZED 0.97 mmol/L Low 1.10 - 1.33 [facility] Comment on above: Performed By: #### A FPA3 ####[id number] [place] [address] Chloride [Moles/Vol] 98 mmol/L Normal 98 - 107 [facility] Comment on above: Performed By: #### A FPA3 ####[id number] [place] [address] Glucose [Mass/Vol] 108 mg/dL High 74 - 99 [facility] Comment on above: Performed By: #### A FPA3 ####[id number] [place] [address] Hematocrit (Bld) [Volume fraction] 24.0 % Low 41.0 - 52.0 [facility] Comment on above: Performed By: #### A FPA3 ####[id number] [place] [address] HGB,CALCULATED 8.2 g/dL Low 13.5 - 17.5 [facility] Comment on above: Performed By: #### A FPA3 ####[id number] [place] [address] Lactate [Moles/Vol] 1.0 mmol/L Normal 0.4 - 2.0 [facility] Comment on above: Performed By: #### A FPA3 ####[id number] [place] [address] Oxygen (Bld) [Partial pressure] 81 mm[Hg] Low 85 - 95 [facility] Comment on above: Performed By: #### A FPA3 ####[id number] [place] [address] PCO2 42 mmHg Normal 38 - 42 [facility] Comment on above: Performed By: #### A FPA3 ####[id number] [place] [address] pH (Bld) 7.45 [pH] High 7.38 - 7.42 [facility] Comment on above: Performed By: #### A FPA3 ####[id number] [place] [address] Potassium [Moles/Vol] 3.7 mmol/L Normal 3.5 - 5.3 [facility] Comment on above: Performed By: #### A FPA3 ####[id number] [place] [address] RBC (Bld) [#/Vol] 29.2 mmol/L High 22.0 - 26.0 [facility] Comment on above: Performed By: #### A FPA3 ####[id number] [place] [address] SO2 99 % Normal 94 - 100 [facility] Comment on above: Performed By: #### A FPA3 ####[id number] [place] [address] Sodium [Moles/Vol] 133 mmol/L Low 136 - 145 [facility] Comment on above: Performed By: #### A FPA3 ####[id number] [place] [address] Anion gap [Moles/Vol] 10 mmol/L Normal 10 - 25 [facility] Comment on above: Performed By: #### A FPA3 ####[id number] [place] [address] BASE EXCESS-BLOOD 4.4 mmol/L High -2.0 - 3.0 [facility] Comment on above: Performed By: #### A FPA3 ####[id number] [place] [address] CALCIUM,IONIZED 0.98 mmol/L Low 1.10 - 1.33 [facility] Comment on above: Performed By: #### A FPA3 ####[id number] [place] [address] Chloride [Moles/Vol] 97 mmol/L Low 98 - 107 [facility] Comment on above: Performed By: #### A FPA3 ####[id number] [place] [address] Glucose [Mass/Vol] 118 mg/dL High 74 - 99 [facility] Comment on above: Performed By: #### A FPA3 ####[id number] [place] [address] Hematocrit (Bld) [Volume fraction] 21.0 % Low 41.0 - 52.0 [facility] Comment on above: Performed By: #### A FPA3 ####[id number] [place] [address] HGB,CALCULATED 7.1 g/dL Low 13.5 - 17.5 [facility] Comment on above: Performed By: #### A FPA3 ####[id number] [place] [address] Lactate [Moles/Vol] 1.2 mmol/L Normal 0.4 - 2.0 [facility] Comment on above: Performed By: #### A FPA3 ####[id number] [place] [address] Oxygen (Bld) [Partial pressure] 73 mm[Hg] Low 85 - 95 [facility] Comment on above: Performed By: #### A FPA3 ####[id number] [place] [address] PCO2 44 mmHg High 38 - 42 [facility] Comment on above: Performed By: #### A FPA3 ####[id number] [place] [address] pH (Bld) 7.43 [pH] High 7.38 - 7.42 [facility] Comment on above: Performed By: #### A FPA3 ####[id number] [place] [address] Potassium [Moles/Vol] 4.0 mmol/L Normal 3.5 - 5.3 [facility] Comment on above: Performed By: #### A FPA3 ####[id number] [place] [address] RBC (Bld) [#/Vol] 29.2 mmol/L High 22.0 - 26.0 [facility] Comment on above: Performed By: #### A FPA3 ####[id number] [place] [address] SO2 97 % Normal 94 - 100 [facility] Comment on above: Performed By: #### A FPA3 ####[id number] [place] [address] Sodium [Moles/Vol] 132 mmol/L Low 136 - 145 [facility] Comment on above: Performed By: #### A FPA3 ####[id number] [place] [address] Anion gap [Moles/Vol] 13 mmol/L Normal 10 - 25 [facility] Comment on above: Performed By: #### H EPFP #### [facility] [address] [place] [address] BASE EXCESS-BLOOD 0.9 mmol/L Normal -2.0 - 3.0 [facility] Comment on above: Performed By: #### H EPFP #### [facility] [address] [place] [address] CALCIUM,IONIZED 0.93 mmol/L Low 1.10 - 1.33 [facility] Comment on above: Performed By: #### H EPFP #### [facility] [address] [place] [address] Chloride [Moles/Vol] 96 mmol/L Low 98 - 107 [facility] Comment on above: Performed By: #### H EPFP #### [facility] [address] [place] [address] Glucose [Mass/Vol] 149 mg/dL High 74 - 99 [facility] Comment on above: Performed By: #### H EPFP #### [facility] [address] [place] [address] Hematocrit (Bld) [Volume fraction] 29.0 % Low 41.0 - 52.0 [facility] Comment on above: Performed By: #### H EPFP #### [facility] [address] [place] [address] HGB,CALCULATED 9.9 g/dL Low 13.5 - 17.5 [facility] Comment on above: Performed By: #### H EPFP #### [facility] [address] [place] [address] Lactate [Moles/Vol] 1.5 mmol/L Normal 0.4 - 2.0 [facility] Comment on above: Performed By: #### H EPFP #### [facility] [address] [place] [address] Oxygen (Bld) [Partial pressure] 54 mm[Hg] Low 85 - 95 [facility] Comment on above: Performed By: #### H EPFP #### [facility] [address] [place] [address] PCO2 52 mmHg High 38 - 42 [facility] Comment on above: Performed By: #### H EPFP #### [facility] [address] [place] [address] pH (Bld) 7.33 [pH] Low 7.38 - 7.42 [facility] Comment on above: Performed By: #### H EPFP #### [facility] [address] [place] [address] Potassium [Moles/Vol] 4.3 mmol/L Normal 3.5 - 5.3 [facility] Comment on above: Performed By: #### H EPFP #### [facility] [address] [place] [address] RBC (Bld) [#/Vol] 27.4 mmol/L High 22.0 - 26.0 [facility] Comment on above: Performed By: #### H EPFP #### [facility] [address] [place] [address] SO2 90 % Low 94 - 100 [facility] Comment on above: Performed By: #### H EPFP #### [facility] [address] [place] [address] Sodium [Moles/Vol] 132 mmol/L Low 136 - 145 [facility] Comment on above: Performed By: #### H EPFP #### [facility] [address] [place] [address] Anion gap [Moles/Vol] 14 mmol/L Normal 10 - 25 [facility] Comment on above: Performed By: #### C BCDF #### [facility] [address] [place] [address] BASE EXCESS-BLOOD 3.1 mmol/L High -2.0 - 3.0 [facility] Comment on above: Performed By: #### C BCDF #### [facility] [address] [place] [address] CALCIUM,IONIZED 0.98 mmol/L Low 1.10 - 1.33 [facility] Comment on above: Performed By: #### C BCDF #### [facility] [address] [place] [address] Chloride [Moles/Vol] 95 mmol/L Low 98 - 107 [facility] Comment on above: Performed By: #### C BCDF #### [facility] [address] [place] [address] Glucose [Mass/Vol] 136 mg/dL High 74 - 99 [facility] Comment on above: Performed By: #### C BCDF #### [facility] [address] [place] [address] Hematocrit (Bld) [Volume fraction] 29.0 % Low 41.0 - 52.0 [facility] Comment on above: Performed By: #### C BCDF #### [facility] [address] [place] [address] HGB,CALCULATED 9.9 g/dL Low 13.5 - 17.5 [facility] Comment on above: Performed By: #### C BCDF #### [facility] [address] [place] [address] Lactate [Moles/Vol] 1.7 mmol/L Normal 0.4 - 2.0 [facility] Comment on above: Performed By: #### C BCDF #### [facility] [address] [place] [address] Oxygen (Bld) [Partial pressure] 60 mm[Hg] Low 85 - 95 [facility] Comment on above: Performed By: #### C BCDF #### [facility] [address] [place] [address] PCO2 37 mmHg Low 38 - 42 [facility] Comment on above: Performed By: #### C BCDF #### [facility] [address] [place] [address] pH (Bld) 7.47 [pH] High 7.38 - 7.42 [facility] Comment on above: Performed By: #### C BCDF #### [facility] [address] [place] [address] Potassium [Moles/Vol] 4.8 mmol/L Normal 3.5 - 5.3 [facility] Comment on above: Performed By: #### C BCDF #### [facility] [address] [place] [address] RBC (Bld) [#/Vol] 26.9 mmol/L High 22.0 - 26.0 [facility] Comment on above: Performed By: #### C BCDF #### [facility] [address] [place] [address] SO2 95 % Normal 94 - 100 [facility] Comment on above: Performed By: #### C BCDF #### [facility] [address] [place] [address] Sodium [Moles/Vol] 131 mmol/L Low 136 - 145 [facility] Comment on above: Performed By: #### C BCDF #### [facility] [address] [place] [address] Anion gap [Moles/Vol] 17 mmol/L Normal 10 - 25 [facility] Comment on above: Performed By: #### C OAGS #### [facility] [address] [place] [address] BASE EXCESS-BLOOD -0.2 mmol/L Normal -2.0 - 3.0 [facility] Comment on above: Performed By: #### C OAGS #### [facility] [address] [place] [address] CALCIUM,IONIZED 1.01 mmol/L Low 1.10 - 1.33 [facility] Comment on above: Performed By: #### C OAGS #### [facility] [address] [place] [address] Chloride [Moles/Vol] 94 mmol/L Low 98 - 107 [facility] Comment on above: Performed By: #### C OAGS #### [facility] [address] [place] [address] Glucose [Mass/Vol] 138 mg/dL High 74 - 99 [facility] Comment on above: Performed By: #### C OAGS #### [facility] [address] [place] [address] Hematocrit (Bld) [Volume fraction] 24.0 % Low 41.0 - 52.0 [facility] Comment on above: Performed By: #### C OAGS #### [facility] [address] [place] [address] HGB,CALCULATED 8.2 g/dL Low 13.5 - 17.5 [facility] Comment on above: Performed By: #### C OAGS #### [facility] [address] [place] [address] Lactate [Moles/Vol] 2.2 mmol/L High 0.4 - 2.0 [facility] Comment on above: Performed By: #### C OAGS #### [facility] [address] [place] [address] Oxygen (Bld) [Partial pressure] 69 mm[Hg] Low 85 - 95 [facility] Comment on above: Performed By: #### C OAGS #### [facility] [address] [place] [address] PCO2 35 mmHg Low 38 - 42 [facility] Comment on above: Performed By: #### C OAGS #### [facility] [address] [place] [address] pH (Bld) 7.44 [pH] High 7.38 - 7.42 [facility] Comment on above: Performed By: #### C OAGS #### [facility] [address] [place] [address] Potassium [Moles/Vol] 4.8 mmol/L Normal 3.5 - 5.3 [facility] Comment on above: Performed By: #### C OAGS #### [facility] [address] [place] [address] RBC (Bld) [#/Vol] 23.8 mmol/L Normal 22.0 - 26.0 [facility] Comment on above: Performed By: #### C OAGS #### [facility] [address] [place] [address] SO2 96 % Normal 94 - 100 [facility] Comment on above: Performed By: #### C OAGS #### [facility] [address] [place] [address] Sodium [Moles/Vol] 130 mmol/L Low 136 - 145 [facility] Comment on above: Performed By: #### C OAGS #### [facility] [address] 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 COMPARISON: None ACCESSION NUMBER(S): [id number] ORDERING CLINICIAN: CLARA EATON TECHNIQUE: CT of [...] spine. Findings discussed with Dr. Desir by resident engineer Dr. Alex at 10:37A.M 04/17/2018. I personally reviewed the images/study and Dr. Javier's interpretation and I agree with the findings as stated. This study was performed , analyzed and interpreted at [facility], [place], [place]. Electronically signed by: LENA JETT MD Normal [facility] CALCIUM, IONIZEDon 9 CALCIUM,IONIZED 0.94 mmol/L Low 1.10 - 1.33 [facility] Comment on above: Result Comment: The performance characteristics of ionized calcium tested in heparinized plasma or serum have been validated by the individual laboratory site where testing is performed. Testing on heparinized plasma or serum is not approved by the FDA; however, such approval is not necessary. Performed By: #### I ONC1 ####[id number] [place] [address] CALCIUM,IONIZED 0.88 mmol/L Low 1.10 - 1.33 [facility] Comment on above: Result Comment: The performance characteristics of ionized calcium tested in heparinized plasma or serum have been validated by the individual laboratory site where testing is performed. Testing on heparinized plasma or serum is not approved by the FDA; however, such approval is not necessary. Performed By: #### M G #### [facility] [address] [place] [address] CALCIUM,IONIZED 0.99 mmol/L Low 1.10 - 1.33 [facility] Comment on above: Result Comment: The performance characteristics of ionized calcium tested in heparinized plasma or serum have been validated by the individual laboratory site where testing is performed. Testing on heparinized plasma or serum is not approved by the FDA; however, such approval is not necessary. Performed By: #### C BCDF #### [facility] [address] [place] [address] CBCon 04-17-2018 Erythrocyte distribution width (RBC) [Ratio] 14.8 % High 11.5 - 14.5 [facility] Comment on above: Performed By: #### C BC ####[id number] [place] [address] Hematocrit (Bld) [Volume fraction] 25.9 % Low 41.0 - 52.0 [facility] Comment on above: Performed By: #### C BC ####[id number] [place] [address] Hemoglobin (Bld) [Mass/Vol] 8.9 g/dL Low 13.5 - 17.5 [facility] Comment on above: Performed By: #### C BC ####[id number] [place] [address] MCHC (RBC) [Mass/Vol] 34.4 g/dL Normal 32.0 - 36.0 [facility] Comment on above: Performed By: #### C BC ####[id number] [place] [address] MCV (RBC) [Entitic vol] 91 fL Normal 80 - 100 [facility] Comment on above: Performed By: #### C BC ####[id number] [place] [address] Nucleated RBC/100 WBC (Bld) [Ratio] 0.1 /100 WBC Normal 0.0-0.0 [facility] Comment on above: Performed By: #### C BC ####[id number] [place] [address] Platelets (Bld) [#/Vol] 137 10*3/uL Low 150 - 450 [facility] Comment on above: Performed By: #### C BC ####[id number] [place] [address] RBC (Bld) [#/Vol] 2.85 x10E12/L Low 4.50 - 5.90 [facility] Comment on above: Performed By: #### C BC ####[id number] [place] [address] WBC (Bld) [#/Vol] 8.5 10*3/uL Normal 4.4 - 11.3 [facility] Comment on above: Performed By: #### C BC ####[id number] [place] [address] Erythrocyte distribution width (RBC) [Ratio] 15.2 % High 11.5 - 14.5 [facility] Comment on above: Performed By: #### C BC ####[id number] [place] [address] Hematocrit (Bld) [Volume fraction] 23.7 % Low 41.0 - 52.0 [facility] Comment on above: Performed By: #### C BC ####[id number] [place] [address] Hemoglobin (Bld) [Mass/Vol] 8.2 g/dL Low 13.5 - 17.5 [facility] Comment on above: Performed By: #### C BC ####[id number] [place] [address] MCHC (RBC) [Mass/Vol] 34.6 g/dL Normal 32.0 - 36.0 [facility] Comment on above: Performed By: #### C BC ####[id number] [place] [address] MCV (RBC) [Entitic vol] 90 fL Normal 80 - 100 [facility] Comment on above: Performed By: #### C BC ####[id number] [place] [address] Nucleated RBC/100 WBC (Bld) [Ratio] 0.0 /100 WBC Normal 0.0-0.0 [facility] Comment on above: Performed By: #### C BC ####[id number] [place] [address] Platelets (Bld) [#/Vol] 142 10*3/uL Low 150 - 450 [facility] Comment on above: Performed By: #### C BC ####[id number] [place] [address] RBC (Bld) [#/Vol] 2.64 x10E12/L Low 4.50 - 5.90 [facility] Comment on above: Performed By: #### C BC ####[id number] [place] [address] WBC (Bld) [#/Vol] 8.0 10*3/uL Normal 4.4 - 11.3 [facility] Comment on above: Performed By: #### C BC ####[id number] [place] [address] Erythrocyte distribution width (RBC) [Ratio] 15.1 % High 11.5 - 14.5 [facility] Comment on above: Performed By: #### C BC ####[id number] [place] [address] Hematocrit (Bld) [Volume fraction] 22.2 % Low 41.0 - 52.0 [facility] Comment on above: Performed By: #### C BC ####[id number] [place] [address] Hemoglobin (Bld) [Mass/Vol] 7.7 g/dL Low 13.5 - 17.5 [facility] Comment on above: Performed By: #### C BC ####[id number] [place] [address] MCHC (RBC) [Mass/Vol] 34.7 g/dL Normal 32.0 - 36.0 [facility] Comment on above: Performed By: #### C BC ####[id number] [place] [address] MCV (RBC) [Entitic vol] 91 fL Normal 80 - 100 [facility] Comment on above: Performed By: #### C BC ####[id number] [place] [address] Nucleated RBC/100 WBC (Bld) [Ratio] 0.0 /100 WBC Normal 0.0-0.0 [facility] Comment on above: Performed By: #### C BC ####[id number] [place] [address] Platelets (Bld) [#/Vol] 145 10*3/uL Low 150 - 450 [facility] Comment on above: Performed By: #### C BC ####[id number] [place] [address] RBC (Bld) [#/Vol] 2.44 x10E12/L Low 4.50 - 5.90 [facility] Comment on above: Performed By: #### C BC ####[id number] [place] [address] WBC (Bld) [#/Vol] 6.5 10*3/uL Normal 4.4 - 11.3 [facility] Comment on above: Performed By: #### C BC ####[id number] [place] [address] Erythrocyte distribution width (RBC) [Ratio] 14.6 % High 11.5 - 14.5 [facility] Comment on above: Performed By: #### H EPFP #### [facility] [address] [place] [address] Hematocrit (Bld) [Volume fraction] 29.7 % Low 41.0 - 52.0 [facility] Comment on above: Performed By: #### H EPFP #### [facility] [id number] [place] [address] Hemoglobin (Bld) [Mass/Vol] 10.0 g/dL Low 13.5 - 17.5 [facility] Comment on above: Performed By: #### H EPFP #### [facility] [address] [place] [address] MCHC (RBC) [Mass/Vol] 33.7 g/dL Normal 32.0 - 36.0 [facility] Comment on above: Performed By: #### H EPFP #### [facility] [address] [place] [address] MCV (RBC) [Entitic vol] 91 fL Normal 80 - 100 [facility] Comment on above: Performed By: #### H EPFP #### [facility] [address] [place] [address] Nucleated RBC/100 WBC (Bld) [Ratio] 0.0 /100 WBC Normal 0.0-0.0 [facility] Comment on above: Performed By: #### H EPFP #### [facility] [address] [place] [address] Platelets (Bld) [#/Vol] 185 10*3/uL Normal 150 - 450 [facility] Comment on above: Performed By: #### H EPFP #### [facility] [address] [place] [address] RBC (Bld) [#/Vol] 3.25 x10E12/L Low 4.50 - 5.90 [facility] Comment on above: Performed By: #### H EPFP #### [facility] [address] [place] [address] WBC (Bld) [#/Vol] 8.0 10*3/uL Normal 4.4 - 11.3 [facility] Comment on above: Performed By: #### H EPFP #### [facility] [address] [place] [address] Erythrocyte distribution width (RBC) [Ratio] 14.6 % High 11.5 - 14.5 [facility] Comment on above: Performed By: #### H EPFP #### [facility] [address] [place] [address] Hematocrit (Bld) [Volume fraction] 25.2 % Low 41.0 - 52.0 [facility] Comment on above: Performed By: #### H EPFP #### [facility] [address] [place] [address] Hemoglobin (Bld) [Mass/Vol] 8.7 g/dL Low 13.5 - 17.5 [facility] Comment on above: Performed By: #### H EPFP #### [facility] [address] [place] [address] MCHC (RBC) [Mass/Vol] 34.5 g/dL Normal 32.0 - 36.0 [facility] Comment on above: Performed By: #### H EPFP #### [facility] [address] [place] [address] MCV (RBC) [Entitic vol] 92 fL Normal 80 - 100 [facility] Comment on above: Performed By: #### H EPFP #### [facility] [address] [place] [address] Nucleated RBC/100 WBC (Bld) [Ratio] 0.0 /100 WBC Normal 0.0-0.0 [facility] Comment on above: Performed By: #### H EPFP #### [facility] [address] [place] [address] Platelets (Bld) [#/Vol] 212 10*3/uL Normal 150 - 450 [facility] Comment on above: Performed By: #### H EPFP #### [facility] [address] [place] [address] RBC (Bld) [#/Vol] 2.74 x10E12/L Low 4.50 - 5.90 [facility] Comment on above: Performed By: #### H EPFP #### [facility] [address] [place] [address] WBC (Bld) [#/Vol] 9.1 10*3/uL Normal 4.4 - 11.3 [facility] Comment on above: Performed By: #### H EPFP #### [facility] [address] [place] [address] Erythrocyte distribution width (RBC) [Ratio] 14.3 % Normal 11.5 - 14.5 [facility] Comment on above: Performed By: #### C BCDF #### [facility] [address] [place] [address] Hematocrit (Bld) [Volume fraction] 25.9 % Low 41.0 - 52.0 [facility] Comment on above: Performed By: #### C BCDF #### [facility] [address] [place] [address] Hemoglobin (Bld) [Mass/Vol] 9.0 g/dL Low 13.5 - 17.5 [facility] Comment on above: Performed By: #### C BCDF #### [facility] [address] [place] [address] MCHC (RBC) [Mass/Vol] 34.7 g/dL Normal 32.0 - 36.0 [facility] Comment on above: Performed By: #### C BCDF #### [facility] [address] [place] [address] MCV (RBC) [Entitic vol] 92 fL Normal 80 - 100 [facility] Comment on above: Performed By: #### C BCDF #### [facility] [address] [place] [address] Nucleated RBC/100 WBC (Bld) [Ratio] 0.0 /100 WBC Normal 0.0-0.0 [facility] Comment on above: Performed By: #### C BCDF #### [facility] [address] [place] [address] Platelets (Bld) [#/Vol] 214 10*3/uL Normal 150 - 450 [facility] Comment on above: Performed By: #### C BCDF #### [facility] [address] [place] [address] RBC (Bld) [#/Vol] 2.82 x10E12/L Low 4.50 - 5.90 [facility] Comment on above: Performed By: #### C BCDF #### [facility] [address] [place] [address] WBC (Bld) [#/Vol] 8.9 10*3/uL Normal 4.4 - 11.3 [facility] Comment on above: Performed By: #### C BCDF #### [facility] [address] [place] [address] Erythrocyte distribution width (RBC) [Ratio] 14.6 % High 11.5 - 14.5 [facility] Comment on above: Performed By: #### C OAGS #### [facility] [address] [place] [address] Hematocrit (Bld) [Volume fraction] 24.8 % Low 41.0 - 52.0 [facility] Comment on above: Performed By: #### C OAGS #### [facility] [address] [place] [address] Hemoglobin (Bld) [Mass/Vol] 9.1 g/dL Low 13.5 - 17.5 [facility] Comment on above: Performed By: #### C OAGS #### [facility] [address] [place] [address] MCHC (RBC) [Mass/Vol] 36.7 g/dL High 32.0 - 36.0 [facility] Comment on above: Performed By: #### C OAGS #### [facility] [address] [place] [address] MCV (RBC) [Entitic vol] 87 fL Normal 80 - 100 [facility] Comment on above: Performed By: #### C OAGS #### [facility] [address] [place] [address] Nucleated RBC/100 WBC (Bld) [Ratio] 0.0 /100 WBC Normal 0.0-0.0 [facility] Comment on above: Performed By: #### C OAGS #### [facility] [address] [place] [address] Platelets (Bld) [#/Vol] 210 10*3/uL Normal 150 - 450 [facility] Comment on above: Performed By: #### C OAGS #### [facility] [address] [place] [address] RBC (Bld) [#/Vol] 2.85 x10E12/L Low 4.50 - 5.90 [facility] Comment on above: Performed By: #### C OAGS #### [facility] [address] [place] [address] WBC (Bld) [#/Vol] 7.2 10*3/uL Normal 4.4 - 11.3 [facility] Comment on above: Performed By: #### C OAGS #### [facility] [address] [place] [address] COAGULATION SCREENon 019 aPTT Coag (Bld) [Time] 35 s Normal 28 - 38 [facility] Comment on above: Result Comment: Note new reference range as of 01/17/2018. THE APTT IS NO LONGER USED FOR MONITORING UNFRACTIONATED HEPARIN THERAPY. FOR MONITORING HEPARIN THERAPY, USE THE HEPARIN ASSAY. Performed By: #### C OAGS ####[id number] [place] [address] INR Coag (PPP) [Relative time] 1.1 {INR} Normal 0.9 - 1.1 [facility] Comment on above: Performed By: #### C OAGS ####[id number] [place] [address] PT Coag (PPP) [Time] 12.0 s Normal 9.7 - 12.7 [facility] Comment on above: Result Comment: Note new reference range as of 01/17/2018. Performed By: #### C OAGS ####[id number] [place] [address] aPTT Coag (Bld) [Time] 31 s Normal 28 - 38 [facility] Comment on above: Result Comment: Note new reference range as of 01/17/2018. THE APTT IS NO LONGER USED FOR MONITORING UNFRACTIONATED HEPARIN THERAPY. FOR MONITORING HEPARIN THERAPY, USE THE HEPARIN ASSAY. Performed By: #### M G #### [facility] [address] [place] [address] INR Coag (PPP) [Relative time] 1.1 {INR} Normal 0.9 - 1.1 [facility] Comment on above: Performed By: #### M G #### [facility] [address] [place] [address] PT Coag (PPP) [Time] 11.7 s Normal 9.7 - 12.7 [facility] Comment on above: Result Comment: Note new reference range as of 01/17/2018. Performed By: #### M G #### [facility] [address] [place] [address] aPTT Coag (Bld) [Time] 34 s Normal 28 - 38 [facility] Comment on above: Result Comment: Note new reference range as of 01/17/2018. THE APTT IS NO LONGER USED FOR MONITORING UNFRACTIONATED HEPARIN THERAPY. FOR MONITORING HEPARIN THERAPY, USE THE HEPARIN ASSAY. Performed By: #### H EPFP #### [facility] [address] [place] [address] INR Coag (PPP) [Relative time] 1.1 {INR} Normal 0.9 - 1.1 [facility] Comment on above: Performed By: #### H EPFP #### [facility] [address] [place] [address] PT Coag (PPP) [Time] 12.0 s Normal 9.7 - 12.7 [facility] Comment on above: Result Comment: Note new reference range as of 01/17/2018. Performed By: #### H EPFP #### [facility] [address] [place] [address] aPTT Coag (Bld) [Time] 33 s Normal 28 - 38 [facility] Comment on above: Result Comment: Note new reference range as of 01/17/2018. THE APTT IS NO LONGER USED FOR MONITORING UNFRACTIONATED HEPARIN THERAPY. FOR MONITORING HEPARIN THERAPY, USE THE HEPARIN ASSAY. Performed By: #### C BCDF #### [facility] [address] [place] [address] INR Coag (PPP) [Relative time] 1.1 {INR} Normal 0.9 - 1.1 [facility] Comment on above: Performed By: #### C BCDF #### [facility] [address] [place] [address] PT Coag (PPP) [Time] 12.1 s Normal 9.7 - 12.7 [facility] Comment on above: Result Comment: Note new reference range as of 01/17/2018. Performed By: #### C BCDF #### [facility] [address] [place] [address] aPTT Coag (Bld) [Time] 32 s Normal 28 - 38 [facility] Comment on above: Result Comment: Note new reference range as of 01/17/2018. THE APTT IS NO LONGER USED FOR MONITORING UNFRACTIONATED HEPARIN THERAPY. FOR MONITORING HEPARIN THERAPY, USE THE HEPARIN ASSAY. Performed By: #### C OAGS #### [facility] [address] [place] [address] INR Coag (PPP) [Relative time] 1.1 {INR} Normal 0.9 - 1.1 [facility] Comment on above: Performed By: #### C OAGS #### [facility] [address] [place] [address] PT Coag (PPP) [Time] 11.8 s Normal 9.7 - 12.7 [facility] Comment on above: Result Comment: Note new reference range as of 01/17/2018. Performed By: #### C OAGS #### [facility] [address] [place] [address] CREATINE KINASEon 04-17-2018 CK [Catalytic activity/Vol] 1170 U/L High 0 - 325 [facility] Comment on above: Performed By: #### C K ####[id number] [place] [address] Clinical Event Note-Renal pr ogress noteon 04-17-2018 [...] MD, MS, SAMANTHA CHRISTINE Nephrology fellow P [id number] Electronic Signatures: Inés Henson (Resident)) (Signed 17-Apr-2018 12:46) Authored: Event Last Updated: 17-Apr-2018 12:46 by Inés Henson (Resident)) Normal [facility] ELECTROLYTE, URINE SPOTon CHLORIDE,URINE SPOT <15 Normal Not Established [facility] Comment on above: Performed By: #### H EPFP #### [facility] [address] [place] [address] CHLORIDE/CREAT RATIO SEE COMMENT Normal 23 - 275 [facility] Comment on above: Result Comment: One or more analytes used in this calculation is outside of the analytical measurement range. Calculation cannot be performed. Performed By: #### H EPFP #### [facility] [address] [place] [address] CREATININE,URINE 102.0 mg/dL Normal 20.0 - 370.0 [facility] Comment on above: Performed By: #### H EPFP #### [facility] [address] [place] [address] POT/CREAT RATIO 81 mmol/g Creat Normal Not Established [facility] Comment on above: Performed By: #### H EPFP #### [facility] [address] [place] [address] POTASSIUM,URINE SPOT 83 mmol/L Normal Not Established [facility] Comment on above: Performed By: #### H EPFP #### [facility] [address] [place] [address] Sodium (U) [Moles/Vol] 22 mmol/L Normal Not Established [facility] Comment on above: Performed By: #### H EPFP #### [facility] [address] [place] [address] SODIUM/CREAT RATIO 22 mmol/g Creat Normal Not Established [facility] Comment on above: Performed By: #### H EPFP #### [facility] [address] [place] [address] UREA NITROGEN,URINE 351 mg/dL Normal Not Established [facility] Comment on above: Performed By: #### H EPFP #### [facility] [address] [place] [address] UREA NITROGEN/CREAT RATIO 3.4 g/g Creat Normal Not Established [facility] Comment on above: Performed By: #### H EPFP #### [facility] [address] [place] [address] OSMOLALITY,URINE SPOT 358 mOsm/kg Normal 200 - 1200 [facility] Comment on above: Performed By: #### H EPFP #### [facility] [address] [place] [address] EMR ADDONon 04-17-2018 ADDON CONFIRMATION REQUEST REC'D Normal [facility] Comment on above: Performed By: #### M G #### [facility] [address] [place] [address] FIBRINOGENon 04-17-2018 FIBRINOGEN 571 mg/dL High 200 - 400 [facility] Comment on above: Performed By: #### M G #### [facility] [address] [place] [address] FIBRINOGEN 603 mg/dL High 200 - 400 [facility] Comment on above: Performed By: #### C BCDF #### [facility] [address] [place] [address] FIBRINOGEN 569 mg/dL High 200 - 400 [facility] Comment on above: Performed By: #### C OAGS #### [facility] [address] [place] [address] GLUCOSE-POCTon 04-17-2018 Glucose [Mass/Vol] 112 mg/dL High 74 - 99 [facility] Comment on above: Performed By: #### G VAISHALI ####[id number] [place] [address] Glucose [Mass/Vol] 135 mg/dL High 74 - 99 [facility] Comment on above: Performed By: #### G VAISHALI ####[id number] [place] [address] Glucose [Mass/Vol] 148 mg/dL High 74 - 99 [facility] Comment on above: Performed By: #### M G #### [facility] [address] [place] [address] Glucose [Mass/Vol] 145 mg/dL High 74 - 99 [facility] Comment on above: Performed By: #### C BCDF #### [facility] [address] [place] [address] Glucose [Mass/Vol] 128 mg/dL High 74 - 99 [facility] Comment on above: Performed By: #### C BCDF #### [facility] [address] [place] [address] History and Physical - Surgi vasiliy Update [...] Updated: 20-Apr-2018 06:00 by Nolvia Colmenares) Normal [facility] MAGNESIUMon 04-17-2018 Magnesium [Mass/Vol] 2.07 mg/dL Normal 1.60 - 2.40 [facility] Comment on above: Performed By: #### M G #### [facility] [address] [place] [address] Magnesium [Mass/Vol] 2.17 mg/dL Normal 1.60 - 2.40 [facility] Comment on above: Performed By: #### C BCDF #### [facility] [address] [place] [address] Magnesium [Mass/Vol] 2.06 mg/dL Normal 1.60 - 2.40 [facility] Comment on above: Performed By: #### C OAGS #### [facility] [address] 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 POSTOPERATIVE DIAGNOSIS: Hemoperitoneum and patchy ischemia of the small bowel. OPERATION/PROCEDURE: Exploratory laparotomy, evacuation of hematoma, omentectomy, placement of ABThera wound VAC. SURGEON: Nolvia Colmenares MD STENCIL SPRAYER(S): 1. Dr. Blake. 2. Dr. Aragon ANESTHESIA: [...] TT: 04/22/2018 01:22 PM EST DICTATION NUMBER: [id number] PAULCATRINA JOB NUMBER: [id number] CC: Quentin Rangel [id number] Electronically Signed by Dr. Nolvia Colmenares 05/03/2018 02:53:46 PM Normal [facility] PLASMAon 04-17-2018 PLASMA ORDER RECD Normal [facility] Comment on above: Performed By: #### H EPFP #### [facility] [address] [place] [address] RENAL FUNCTION PANELon 04-17 Albumin [Mass/Vol] 3.1 g/dL Low 3.4 - 5.0 [facility] Comment on above: Performed By: #### R ENAL ####[id number] [place] [address] Anion gap [Moles/Vol] 19 mmol/L Normal 10 - 20 [facility] Comment on above: Performed By: #### R ENAL ####[id number] [place] [address] Calcium [Mass/Vol] 7.4 mg/dL Low 8.6 - 10.6 [facility] Comment on above: Performed By: #### R ENAL ####[id number] [place] [address] Chloride [Moles/Vol] 97 mmol/L Low 98 - 107 [facility] Comment on above: Performed By: #### R ENAL ####[id number] [place] [address] Creatinine [Mass/Vol] 4.18 mg/dL High 0.50 - 1.30 [facility] Comment on above: Performed By: #### R ENAL ####[id number] [place] [address] GFR- AM. 17 mL/min/1.73m2 Abnormal >60 [facility] Comment on above: Result Comment: CALC ULATIONS OF ESTIMATED GFR ARE PERFORMED USING THE MDRD STUDY EQUATION FOR THE IDMS-TRACEABLE CREATININE METHODS. CLIN CHEM 2007;53:766-72 Performed By: #### R ENAL ####[id number] [place] [address] GFR-NON AM. 14 mL/min/1.73m2 Abnormal >60 [facility] Comment on above: Performed By: #### R ENAL ####[id number] [place] [address] Glucose [Mass/Vol] 126 mg/dL High 74 - 99 [facility] Comment on above: Performed By: #### R ENAL ####[id number] [place] [address] HCO3 (Bld) [Moles/Vol] 26 mmol/L Normal 21 - 32 [facility] Comment on above: Performed By: #### R ENAL ####[id number] [place] [address] Phosphate [Mass/Vol] 6.1 mg/dL High 2.5 - 4.9 [facility] Comment on above: Result Comment: The performance characteristics of phosphorus testing in heparinized plasma have been validated by the individual laboratory site where testing is performed. Testing on heparinized plasma is not approved by the FDA; however, such approval is not necessary. Performed By: #### R ENAL ####[id number] [place] [address] Potassium [Moles/Vol] 4.4 mmol/L Normal 3.5 - 5.3 [facility] Comment on above: Performed By: #### R ENAL ####[id number] [place] [address] Sodium [Moles/Vol] 138 mmol/L Normal 136 - 145 [facility] Comment on above: Performed By: #### R ENAL ####[id number] [place] [address] Urea nitrogen [Mass/Vol] 59 mg/dL High 6 - 23 [facility] Comment on above: Performed By: #### R ENAL ####[id number] [place] [address] Albumin [Mass/Vol] 2.6 g/dL Low 3.4 - 5.0 [facility] Comment on above: Performed By: #### M G #### [facility] [address] [place] [address] Anion gap [Moles/Vol] 18 mmol/L Normal 10 - 20 [facility] Comment on above: Performed By: #### M G #### [facility] [address] [place] [address] Calcium [Mass/Vol] 7.2 mg/dL Low 8.6 - 10.6 [facility] Comment on above: Performed By: #### M G #### [facility] [address] [place] [address] Chloride [Moles/Vol] 95 mmol/L Low 98 - 107 [facility] Comment on above: Performed By: #### M G #### [facility] [address] [place] [address] Creatinine [Mass/Vol] 4.46 mg/dL High 0.50 - 1.30 [facility] Comment on above: Performed By: #### M G #### [facility] [address] [place] [address] GFR- AM. 16 mL/min/1.73m2 Abnormal >60 [facility] Comment on above: Result Comment: CALC ULATIONS OF ESTIMATED GFR ARE PERFORMED USING THE MDRD STUDY EQUATION FOR THE IDMS-TRACEABLE CREATININE METHODS. CLIN CHEM 2007;53:766-72 Performed By: #### M G #### [facility] [address] [place] [address] GFR-NON AM. 13 mL/min/1.73m2 Abnormal >60 [facility] Comment on above: Performed By: #### M G #### [facility] [address] [place] [address] Glucose [Mass/Vol] 150 mg/dL High 74 - 99 [facility] Comment on above: Performed By: #### M G #### [facility] [address] [place] [address] HCO3 (Bld) [Moles/Vol] 28 mmol/L Normal 21 - 32 [facility] Comment on above: Performed By: #### M G #### [facility] [address] [place] [address] Phosphate [Mass/Vol] 7.1 mg/dL High 2.5 - 4.9 [facility] Comment on above: Result Comment: The performance characteristics of phosphorus testing in heparinized plasma have been validated by the individual laboratory site where testing is performed. Testing on heparinized plasma is not approved by the FDA; however, such approval is not necessary. Performed By: #### M G #### [facility] [address] [place] [address] Potassium [Moles/Vol] 4.7 mmol/L Normal 3.5 - 5.3 [facility] Comment on above: Performed By: #### M G #### [facility] [address] [place] [address] Sodium [Moles/Vol] 136 mmol/L Normal 136 - 145 [facility] Comment on above: Performed By: #### M G #### [facility] [address] [place] [address] Urea nitrogen [Mass/Vol] 61 mg/dL High 6 - 23 [facility] Comment on above: Performed By: #### M G #### [facility] [address] [place] [address] Albumin [Mass/Vol] 2.7 g/dL Low 3.4 - 5.0 [facility] Comment on above: Performed By: #### C BCDF #### [facility] [address] [place] [address] Anion gap [Moles/Vol] 20 mmol/L Normal 10 - 20 [facility] Comment on above: Performed By: #### C BCDF #### [facility] [address] [place] [address] Calcium [Mass/Vol] 7.6 mg/dL Low 8.6 - 10.6 [facility] Comment on above: Performed By: #### C BCDF #### [facility] [address] [place] [address] Chloride [Moles/Vol] 94 mmol/L Low 98 - 107 [facility] Comment on above: Performed By: #### C BCDF #### [facility] [address] [place] [address] Creatinine [Mass/Vol] 4.68 mg/dL High 0.50 - 1.30 [facility] Comment on above: Performed By: #### C BCDF #### [facility] [address] [place] [address] GFR- AM. 16 mL/min/1.73m2 Abnormal >60 [facility] Comment on above: Result Comment: CALC ULATIONS OF ESTIMATED GFR ARE PERFORMED USING THE MDRD STUDY EQUATION FOR THE IDMS-TRACEABLE CREATININE METHODS. CLIN CHEM 2007;53:766-72 Performed By: #### C BCDF #### [facility] [address] [place] [address] GFR-NON AM. 13 mL/min/1.73m2 Abnormal >60 [facility] Comment on above: Performed By: #### C BCDF #### [facility] [address] [place] [address] Glucose [Mass/Vol] 131 mg/dL High 74 - 99 [facility] Comment on above: Performed By: #### C BCDF #### [facility] [address] [place] [address] HCO3 (Bld) [Moles/Vol] 25 mmol/L Normal 21 - 32 [facility] Comment on above: Performed By: #### C BCDF #### [facility] [address] [place] [address] Phosphate [Mass/Vol] 5.8 mg/dL High 2.5 - 4.9 [facility] Comment on above: Result Comment: The performance characteristics of phosphorus testing in heparinized plasma have been validated by the individual laboratory site where testing is performed. Testing on heparinized plasma is not approved by the FDA; however, such approval is not necessary. Performed By: #### C BCDF #### [facility] [address] [place] [address] Potassium [Moles/Vol] 5.0 mmol/L Normal 3.5 - 5.3 [facility] Comment on above: Performed By: #### C BCDF #### [facility] [address] [place] [address] Sodium [Moles/Vol] 134 mmol/L Low 136 - 145 [facility] Comment on above: Performed By: #### C BCDF #### [facility] [address] [place] [address] Urea nitrogen [Mass/Vol] 61 mg/dL High 6 - 23 [facility] Comment on above: Performed By: #### C BCDF #### [facility] [address] [place] [address] Albumin [Mass/Vol] 2.9 g/dL Low 3.4 - 5.0 [facility] Comment on above: Performed By: #### C BCDF #### [facility] [address] [place] [address] Anion gap [Moles/Vol] 21 mmol/L High 10 - 20 [facility] Comment on above: Performed By: #### C BCDF #### [facility] [address] [place] [address] Calcium [Mass/Vol] 7.8 mg/dL Low 8.6 - 10.6 [facility] Comment on above: Performed By: #### C BCDF #### [facility] [address] [place] [address] Chloride [Moles/Vol] 94 mmol/L Low 98 - 107 [facility] Comment on above: Performed By: #### C BCDF #### [facility] [address] [place] [address] Creatinine [Mass/Vol] 4.70 mg/dL High 0.50 - 1.30 [facility] Comment on above: Performed By: #### C BCDF #### [facility] [address] [place] [address] GFR- AM. 16 mL/min/1.73m2 Abnormal >60 [facility] Comment on above: Result Comment: CALC ULATIONS OF ESTIMATED GFR ARE PERFORMED USING THE MDRD STUDY EQUATION FOR THE IDMS-TRACEABLE CREATININE METHODS. CLIN CHEM 2007;53:766-72 Performed By: #### C BCDF #### [facility] [address] [place] [address] GFR-NON AM. 13 mL/min/1.73m2 Abnormal >60 [facility] Comment on above: Performed By: #### C BCDF #### [facility] [address] [place] [address] Glucose [Mass/Vol] 141 mg/dL High 74 - 99 [facility] Comment on above: Performed By: #### C BCDF #### [facility] [address] [place] [address] HCO3 (Bld) [Moles/Vol] 24 mmol/L Normal 21 - 32 [facility] Comment on above: Performed By: #### C BCDF #### [facility] [address] [place] [address] Phosphate [Mass/Vol] 6.1 mg/dL High 2.5 - 4.9 [facility] Comment on above: Result Comment: The performance characteristics of phosphorus testing in heparinized plasma have been validated by the individual laboratory site where testing is performed. Testing on heparinized plasma is not approved by the FDA; however, such approval is not necessary. Performed By: #### C BCDF #### [facility] [address] [place] [address] Potassium [Moles/Vol] 5.0 mmol/L Normal 3.5 - 5.3 [facility] Comment on above: Performed By: #### C BCDF #### [facility] [address] [place] [address] Sodium [Moles/Vol] 134 mmol/L Low 136 - 145 [facility] Comment on above: Performed By: #### C BCDF #### [facility] [address] [place] [address] Urea nitrogen [Mass/Vol] 60 mg/dL High 6 - 23 [facility] Comment on above: Performed By: #### C BCDF #### [facility] [address] [place] [address] Albumin [Mass/Vol] 3.0 g/dL Low 3.4 - 5.0 [facility] Comment on above: Performed By: #### C OAGS #### [facility] [address] [place] [address] Anion gap [Moles/Vol] 19 mmol/L Normal 10 - 20 [facility] Comment on above: Performed By: #### C OAGS #### [facility] [address] [place] [address] Calcium [Mass/Vol] 8.0 mg/dL Low 8.6 - 10.6 [facility] Comment on above: Performed By: #### C OAGS #### [facility] [address] [place] [address] Chloride [Moles/Vol] 96 mmol/L Low 98 - 107 [facility] Comment on above: Performed By: #### C OAGS #### [facility] [address] [place] [address] Creatinine [Mass/Vol] 4.43 mg/dL High 0.50 - 1.30 [facility] Comment on above: Performed By: #### C OAGS #### [facility] [address] [place] [address] GFR- AM. 16 mL/min/1.73m2 Abnormal >60 [facility] Comment on above: Result Comment: CALC ULATIONS OF ESTIMATED GFR ARE PERFORMED USING THE MDRD STUDY EQUATION FOR THE IDMS-TRACEABLE CREATININE METHODS. CLIN CHEM 2007;53:766-72 Performed By: #### C OAGS #### [facility] [address] [place] [address] GFR-NON AM. 13 mL/min/1.73m2 Abnormal >60 [facility] Comment on above: Performed By: #### C OAGS #### [facility] [address] [place] [address] Glucose [Mass/Vol] 134 mg/dL High 74 - 99 [facility] Comment on above: Performed By: #### C OAGS #### [facility] [address] [place] [address] HCO3 (Bld) [Moles/Vol] 23 mmol/L Normal 21 - 32 [facility] Comment on above: Performed By: #### C OAGS #### [facility] [address] [place] [address] Phosphate [Mass/Vol] 5.9 mg/dL High 2.5 - 4.9 [facility] Comment on above: Result Comment: The performance characteristics of phosphorus testing in heparinized plasma have been validated by the individual laboratory site where testing is performed. Testing on heparinized plasma is not approved by the FDA; however, such approval is not necessary. Performed By: #### C OAGS #### [facility] [address] [place] [address] Potassium [Moles/Vol] 5.0 mmol/L Normal 3.5 - 5.3 [facility] Comment on above: Performed By: #### C OAGS #### [facility] [address] [place] [address] Sodium [Moles/Vol] 133 mmol/L Low 136 - 145 [facility] Comment on above: Performed By: #### C OAGS #### [facility] [address] [place] [address] Urea nitrogen [Mass/Vol] 53 mg/dL High 6 - 23 [facility] Comment on above: Performed By: #### C OAGS #### [facility] [address] [place], [place] REQUEST-LEUKOREDUCED RED DANNY LSon 04-17-2018 REQUEST-LEUKOREDU MABEL RED CELLS ORDER RECD Normal [facility] Comment on above: Performed By: #### O CONVENTION SERVICES DIRECTOR ####[id number] [place] [address] REQUEST-LEUKOREDU MABEL RED CELLS ORDER RECD Normal [facility] Comment on above: Performed By: #### O CONVENTION SERVICES DIRECTOR ####[id number], [place] TH ABDOMEN AP VIEWon 019 TH ABDOMEN AP VIEW Patient Name: ADEN PATEL STUDY: ABDOMEN AP VIEW; 04/17/2018 1:30 am INDICATION: Signs/Symptoms: s/p NGT placement. COMPARISON: 04/17/2018 at 1:30 a.m. ACCESSION NUMBER(S): [id number] ORDERING CLINICIAN: AUGUSTO TRAYLOR FINDINGS: Limited single [...] was performed , analyzed and interpreted at [place], [place]. Electronically signed by: DAYNE HUBBARD MD Normal [facility] TH CHEST 1 VIEWon 04-17-2018 TH CHEST 1 VIEW Patient Name: ADEN PATEL STUDY: CHEST 1 VIEW; 04/17/2018 11:18 am INDICATION: Signs/Symptoms: ETT placement. COMPARISON: 04/17/2018 ACCESSION NUMBER(S): [id number] ORDERING CLINICIAN: MELITA ALBARRAN FINDINGS: ET tube [...] appliances as described above. Electronically signed by: DAYEN HBUBARD MD Normal [facility] TH CHEST 1 VIEW Patient Name: ADEN PATEL STUDY: CHEST 1 VIEW; 04/17/2018 6:51 am INDICATION: Signs/Symptoms: SICU AM rounds. COMPARISON: 04/16/2018 ACCESSION NUMBER(S): [id number] ORDERING CLINICIAN: AUGUSTO TRAYLOR FINDINGS: Left IJ [...] Electronically signed by: DAYNE HUBBARD MD Normal [facility] TYPE + SCREENon 04-17-2018 ABO TYPE A Normal [facility] Comment on above: Performed By: #### C OAGS #### [facility] [address] [place] [address] RH TYPE Positive Normal [facility] Comment on above: Performed By: #### C OAGS #### [facility] [address] [place] [address] UA MICROSCOPICon 04-17-2018 HYALINE CAST 2+ /LPF Abnormal [facility] Comment on above: Performed By: #### H EPFP #### [facility] [address] [place] [address] MUCUS 1+ /LPF Normal [facility] Comment on above: Performed By: #### H EPFP #### [facility] [address] [place] [address] RBC 6 /HPF Abnormal 0-5 [facility] Comment on above: Performed By: #### H EPFP #### [facility] [address] [place] [address] SQUAMOUS EPITH. CELLS 1 /HPF Normal [facility] Comment on above: Performed By: #### H EPFP #### [facility] [address] [place] [address] WBC 1 /HPF Normal 0-5 [facility] Comment on above: Performed By: #### H EPFP #### [facility] [address] [place] [address] URINALYSISon 04-17-2018 Appearance (U) HAZY Normal CLEAR [facility] Comment on above: Performed By: #### H EPFP #### [facility] [address] [place] [address] Bilirubin (U) [Mass/Vol] Negative Normal NEGATIVE [facility] Comment on above: Performed By: #### H EPFP #### [facility] [address] [place] [address] BLOOD LARGE (3+) Abnormal NEGATIVE [facility] Comment on above: Performed By: #### H EPFP #### [facility] [address] [place] [address] Color (U) YELLOW Normal STRAW,YELLOW [facility] Comment on above: Performed By: #### H EPFP #### [facility] [address] [place] [address] Glucose [Mass/Vol] Negative Normal NEGATIVE [facility] Comment on above: Performed By: #### H EPFP #### [facility] [address] [place] [address] Ketones Ql (U) Negative Normal NEGATIVE [facility] Comment on above: Performed By: #### H EPFP #### [facility] [address] [place] [address] Leukocyte esterase Test strip Ql (U) Negative Normal NEGATIVE [facility] Comment on above: Performed By: #### H EPFP #### [facility] [address] [place] [address] Nitrite Ql (U) Negative Normal NEGATIVE [facility] Comment on above: Performed By: #### H EPFP #### [facility] [address] [place] [address] pH (Bld) 5.0 Normal 5.0 - 8.0 [facility] Comment on above: Performed By: #### H EPFP #### [facility] [address] [place] [address] Protein (U) [Mass/Vol] 30 (1+) Abnormal NEGATIVE [facility] Comment on above: Performed By: #### H EPFP #### [facility] [address] [place] [address] Specific gravity (U) [Rel density] 1.016 Normal 1.005 - 1.035 [facility] Comment on above: Performed By: #### H EPFP #### [facility] [address] [place] [address] Urobilinogen Qn (U) <2.0 Normal 0.0 - 1.9 [facility] Comment on above: Performed By: #### H EPFP #### [facility] [address] [place] [address] AMYLASEon 04-16-2018 Amylase [Catalytic activity/Vol] U/L Low 29 - 103 [facility] Comment on above: Performed By: #### A MY ####[id number] [place] [address] ARTERIAL FULL PANELon 2018 Anion gap [Moles/Vol] 17 mmol/L Normal 10 - 25 [facility] Comment on above: Performed By: #### A FPA3 ####[id number] [place] [address] BASE EXCESS-BLOOD -0.1 mmol/L Normal -2.0 - 3.0 [facility] Comment on above: Performed By: #### A FPA3 ####[id number] [place] [address] CALCIUM,IONIZED 1.01 mmol/L Low 1.10 - 1.33 [facility] Comment on above: Performed By: #### A FPA3 ####[id number] [place] [address] Chloride [Moles/Vol] 94 mmol/L Low 98 - 107 [facility] Comment on above: Performed By: #### A FPA3 ####[id number] [place] [address] Glucose [Mass/Vol] 135 mg/dL High 74 - 99 [facility] Comment on above: Performed By: #### A FPA3 ####[id number] [place] [address] Hematocrit (Bld) [Volume fraction] 27.0 % Low 41.0 - 52.0 [facility] Comment on above: Performed By: #### A FPA3 ####[id number] [place] [address] HGB,CALCULATED 9.2 g/dL Low 13.5 - 17.5 [facility] Comment on above: Performed By: #### A FPA3 ####[id number] [place] [address] Lactate [Moles/Vol] 2.4 mmol/L High 0.4 - 2.0 [facility] Comment on above: Performed By: #### A FPA3 ####[id number] [place] [address] Oxygen (Bld) [Partial pressure] 51 mm[Hg] Low 85 - 95 [facility] Comment on above: Performed By: #### A FPA3 ####[id number] [place] [address] PCO2 35 mmHg Low 38 - 42 [facility] Comment on above: Performed By: #### A FPA3 ####[id number] [place] [address] pH (Bld) 7.44 [pH] High 7.38 - 7.42 [facility] Comment on above: Performed By: #### A FPA3 ####[id number] [place] [address] Potassium [Moles/Vol] 5.0 mmol/L Normal 3.5 - 5.3 [facility] Comment on above: Performed By: #### A FPA3 ####[id number] [place] [address] RBC (Bld) [#/Vol] 23.8 mmol/L Normal 22.0 - 26.0 [facility] Comment on above: Performed By: #### A FPA3 ####[id number] [place] [address] SO2 90 % Low 94 - 100 [facility] Comment on above: Performed By: #### A FPA3 ####[id number] [place] [address] Sodium [Moles/Vol] 130 mmol/L Low 136 - 145 [facility] Comment on above: Performed By: #### A FPA3 ####[id number] [place] [address] Anion gap [Moles/Vol] 14 mmol/L Normal 10 - 25 [facility] Comment on above: Performed By: #### A FPA3 ####[id number] [place] [address] BASE EXCESS-BLOOD -3.9 mmol/L Low -2.0 - 3.0 [facility] Comment on above: Performed By: #### A FPA3 ####[id number] [place] [address] CALCIUM,IONIZED 1.06 mmol/L Low 1.10 - 1.33 [facility] Comment on above: Performed By: #### A FPA3 ####[id number] [place] [address] Chloride [Moles/Vol] 97 mmol/L Low 98 - 107 [facility] Comment on above: Performed By: #### A FPA3 ####[id number] [place] [address] Glucose [Mass/Vol] 131 mg/dL High 74 - 99 [facility] Comment on above: Performed By: #### A FPA3 ####[id number] [place] [address] Hematocrit (Bld) [Volume fraction] 26.0 % Low 41.0 - 52.0 [facility] Comment on above: Performed By: #### A FPA3 ####[id number] [place] [address] HGB,CALCULATED 8.8 g/dL Low 13.5 - 17.5 [facility] Comment on above: Performed By: #### A FPA3 ####[id number] [place] [address] Lactate [Moles/Vol] 3.1 mmol/L High 0.4 - 2.0 [facility] Comment on above: Performed By: #### A FPA3 ####[id number] [place] [address] Oxygen (Bld) [Partial pressure] 55 mm[Hg] Low 85 - 95 [facility] Comment on above: Performed By: #### A FPA3 ####[id number] [place] [address] PCO2 40 mmHg Normal 38 - 42 [facility] Comment on above: Performed By: #### A FPA3 ####[id number] [place] [address] pH (Bld) 7.34 [pH] Low 7.38 - 7.42 [facility] Comment on above: Performed By: #### A FPA3 ####[id number] [place] [address] Potassium [Moles/Vol] 4.6 mmol/L Normal 3.5 - 5.3 [facility] Comment on above: Performed By: #### A FPA3 ####[id number] [place] [address] RBC (Bld) [#/Vol] 21.6 mmol/L Low 22.0 - 26.0 [facility] Comment on above: Performed By: #### A FPA3 ####[id number] [place] [address] SO2 92 % Low 94 - 100 [facility] Comment on above: Performed By: #### A FPA3 ####[id number] [place] [address] Sodium [Moles/Vol] 128 mmol/L Low 136 - 145 [facility] Comment on above: Performed By: #### A FPA3 ####[id number] [place] [address] Anion gap [Moles/Vol] 17 mmol/L Normal 10 - 25 [facility] Center Comment on above: Order Comment: CRIT LACTN HGBNC CALLED RB TO GM CURTISC, 04/16/2018 12:12 Performed By: #### A FPA3 ####[id number] [place] [address] BASE EXCESS-BLOOD -7.5 mmol/L Low -2.0 - 3.0 [facility] Comment on above: Order Comment: CRIT LACTN HGBNC CALLED RB TO GM CURTIS, 04/16/2018 12:12 Performed By: #### A FPA3 ####[id number] [place] [address] CALCIUM,IONIZED 1.06 mmol/L Low 1.10 - 1.33 [facility] Comment on above: Order Comment: CRIT LACTN HGBNC CALLED RB TO GM CURTISC, 04/16/2018 12:12 Performed By: #### A FPA3 ####[id number] [place] [address] Chloride [Moles/Vol] 98 mmol/L Normal 98 - 107 [facility] Comment on above: Order Comment: CRIT LACTN HGBNC CALLED RB TO GM CURTISC, 04/16/2018 12:12 Performed By: #### A FPA3 ####[id number] [place] [address] Glucose [Mass/Vol] 155 mg/dL High 74 - 99 [facility] Comment on above: Order Comment: CRIT LACTN HGBNC CALLED RB TO GM CLARKECIC, 04/16/2018 12:12 Performed By: #### A FPA3 ####[id number] [place] [address] Hematocrit (Bld) [Volume fraction] 18.0 % Low 41.0 - 52.0 [facility] Comment on above: Order Comment: CRIT LACTN HGBNC CALLED RB TO GM CLARKECIC, 04/16/2018 12:12 Performed By: #### A FPA3 ####[id number] [place] [address] HGB,CALCULATED 6.1 g/dL Critically low 13.5 - 17.5 [facility] Comment on above: Order Comment: CRIT LACTN HGBNC CALLED RB TO GM CLARKECIC, 04/16/2018 12:12 Result Comment: CRIT LACTN HGBNC CALLED RB TO GM CLARKECIC, 04/16/2018 12:12 Performed By: #### A FPA3 ####[id number] [place] [address] Lactate [Moles/Vol] 5.8 mmol/L Critically high 0.4 - 2.0 [facility] Comment on above: Order Comment: CRIT LACTN HGBNC CALLED RB TO GM CLARKECIC, 04/16/2018 12:12 Result Comment: CRIT LACTN HGBNC CALLED RB TO NILSONLIE SILVAJANCIC, 04/16/2018 12:12 Performed By: #### A FPA3 ####[id number] [place] [address] Oxygen (Bld) [Partial pressure] 57 mm[Hg] Low 85 - 95 [facility] Comment on above: Order Comment: CRIT LACTN HGBNC CALLED RB TO GM CLARKECIC, 04/16/2018 12:12 Performed By: #### A FPA3 ####[id number] [place] [address] PCO2 36 mmHg Low 38 - 42 [facility] Comment on above: Order Comment: CRIT LACTN HGBNC CALLED RB TO GM CURTISC, 04/16/2018 12:12 Performed By: #### A FPA3 ####[id number] [place] [address] pH (Bld) 7.31 [pH] Low 7.38 - 7.42 [facility] Comment on above: Order Comment: CRIT LACTN HGBNC CALLED RB TO GM CURTISC, 04/16/2018 12:12 Performed By: #### A FPA3 ####[id number] [place] [address] Potassium [Moles/Vol] 4.5 mmol/L Normal 3.5 - 5.3 [facility] Comment on above: Order Comment: CRIT LACTN HGBNC CALLED RB TO GM CURTISC, 04/16/2018 12:12 Performed By: #### A FPA3 ####[id number] [place] [address] RBC (Bld) [#/Vol] 18.1 mmol/L Low 22.0 - 26.0 [facility] Comment on above: Order Comment: CRIT LACTN HGBNC CALLED RB TO GM CURTISC, 04/16/2018 12:12 Performed By: #### A FPA3 ####[id number] [place] [address] SO2 93 % Low 94 - 100 [facility] Comment on above: Order Comment: CRIT LACTN HGBNC CALLED RB TO GM CURTISC, 04/16/2018 12:12 Performed By: #### A FPA3 ####[id number] [place] [address] Sodium [Moles/Vol] 129 mmol/L Low 136 - 145 [facility] Comment on above: Order Comment: CRIT LACTN HGBNC CALLED RB TO GM JACINTO, 04/16/2018 12:12 Performed By: #### A FPA3 ####[id number] [place] [address] BASIC METABOLIC PANELon 03-29 Anion gap [Moles/Vol] Canceled Normal [facility] Comment on above: Order Comment: TEST BASIC METABOLIC PANEL WAS CANCELLED, 04/15/2018 04:45 ?Cancel Reason:Cancelled. Performed By: #### B MP ####[id number] [place] [address] Order Comment: TEST BASIC METABOLIC PANEL WAS CANCELLED, 04/16/2018 10:43 ?Cancel Reason:Discontinued. Calcium [Mass/Vol] Canceled Normal [facility] Comment on above: Order Comment: TEST BASIC METABOLIC PANEL WAS CANCELLED, 04/16/2018 10:43 ?Cancel Reason:Discontinued. Performed By: #### B MP ####[id number] [place] [address] Order Comment: TEST BASIC METABOLIC PANEL WAS CANCELLED, 04/15/2018 04:45 ?Cancel Reason:Cancelled. Chloride [Moles/Vol] Canceled Normal [facility] Comment on above: Order Comment: TEST BASIC METABOLIC PANEL WAS CANCELLED, 04/16/2018 10:43 ?Cancel Reason:Discontinued. Performed By: #### B MP ####[id number] [place] [address] Order Comment: TEST BASIC METABOLIC PANEL WAS CANCELLED, 04/15/2018 04:45 ?Cancel Reason:Cancelled. Creatinine [Mass/Vol] Canceled Normal [facility] Comment on above: Order Comment: TEST BASIC METABOLIC PANEL WAS CANCELLED, 04/16/2018 10:43 ?Cancel Reason:Discontinued. Performed By: #### B MP ####[id number] [place] [address] Order Comment: TEST BASIC METABOLIC PANEL WAS CANCELLED, 04/15/2018 04:45 ?Cancel Reason:Cancelled. GFR- AM. Canceled Normal [facility] Comment on above: Order Comment: TEST BASIC METABOLIC PANEL WAS CANCELLED, 04/15/2018 04:45 ?Cancel Reason:Cancelled. Result Comment: CALC ULATIONS OF ESTIMATED GFR ARE PERFORMED USING THE MDRD STUDY EQUATION FOR THE IDMS-TRACEABLE CREATININE METHODS. CLIN CHEM 2007;53:766-72 Performed By: #### B MP ####[id number] [id number] Order Comment: TEST BASIC METABOLIC PANEL WAS CANCELLED, 04/16/2018 10:43 ?Cancel Reason:Discontinued. GFR-NON AM. Canceled Normal [facility] Comment on above: Order Comment: TEST BASIC METABOLIC PANEL WAS CANCELLED, 04/16/2018 10:43 ?Cancel Reason:Discontinued. Performed By: #### B MP ####[id number] [id number] Order Comment: TEST BASIC METABOLIC PANEL WAS CANCELLED, 04/15/2018 04:45 ?Cancel Reason:Cancelled. Glucose [Mass/Vol] Canceled Normal [facility] Comment on above: Order Comment: TEST BASIC METABOLIC PANEL WAS CANCELLED, 04/15/2018 04:45 ?Cancel Reason:Cancelled. Performed By: #### B MP ####[id number] [id number] Order Comment: TEST BASIC METABOLIC PANEL WAS CANCELLED, 04/16/2018 10:43 ?Cancel Reason:Discontinued. HCO3 (Bld) [Moles/Vol] Canceled Normal [facility] Comment on above: Order Comment: TEST BASIC METABOLIC PANEL WAS CANCELLED, 04/15/2018 04:45 ?Cancel Reason:Cancelled. Performed By: #### B MP ####[id number] [id number] Order Comment: TEST BASIC METABOLIC PANEL WAS CANCELLED, 04/16/2018 10:43 ?Cancel Reason:Discontinued. Potassium [Moles/Vol] Canceled Normal [facility] Comment on above: Order Comment: TEST BASIC METABOLIC PANEL WAS CANCELLED, 04/15/2018 04:45 ?Cancel Reason:Cancelled. Performed By: #### B MP ####[id number] [id number] Order Comment: TEST BASIC METABOLIC PANEL WAS CANCELLED, 04/16/2018 10:43 ?Cancel Reason:Discontinued. Sodium [Moles/Vol] Canceled Normal [facility] Comment on above: Order Comment: TEST BASIC METABOLIC PANEL WAS CANCELLED, 04/16/2018 10:43 ?Cancel Reason:Discontinued. Performed By: #### B MP ####[id number] [id number] Order Comment: TEST BASIC METABOLIC PANEL WAS CANCELLED, 04/15/2018 04:45 ?Cancel Reason:Cancelled. Urea nitrogen [Mass/Vol] Canceled Normal [facility] Comment on above: Order Comment: TEST BASIC METABOLIC PANEL WAS CANCELLED, 04/15/2018 04:45 ?Cancel Reason:Cancelled. Performed By: #### B MP ####[id number] [id number] Order Comment: TEST BASIC METABOLIC PANEL WAS CANCELLED, 04/16/2018 10:43 ?Cancel Reason:Discontinued. CALCIUM, IONIZEDon 9 CALCIUM,IONIZED 1.03 mmol/L Low 1.10 - 1.33 [facility] Comment on above: Result Comment: The performance characteristics of ionized calcium tested in heparinized plasma or serum have been validated by the individual laboratory site where testing is performed. Testing on heparinized plasma or serum is not approved by the FDA; however, such approval is not necessary. Performed By: #### C OAGS #### [facility] [id number] [place] [address] CALCIUM,IONIZED 1.13 mmol/L Normal 1.10 - 1.33 [facility] Comment on above: Result Comment: The performance characteristics of ionized calcium tested in heparinized plasma or serum have been validated by the individual laboratory site where testing is performed. Testing on heparinized plasma or serum is not approved by the FDA; however, such approval is not necessary. Performed By: #### I ONC1 ####[id number] [place] [address] CBCon 04-16-2018 Erythrocyte distribution width (RBC) [Ratio] 14.6 % High 11.5 - 14.5 [facility] Comment on above: Performed By: #### C OAGS #### [facility] [address] [place] [address] Hematocrit (Bld) [Volume fraction] 26.0 % Low 41.0 - 52.0 [facility] Comment on above: Performed By: #### C OAGS #### [facility] [address] [place] [address] Hemoglobin (Bld) [Mass/Vol] 9.6 g/dL Low 13.5 - 17.5 [facility] Comment on above: Performed By: #### C OAGS #### [facility] [address] [place] [address] MCHC (RBC) [Mass/Vol] 36.9 g/dL High 32.0 - 36.0 [facility] Comment on above: Performed By: #### C OAGS #### [facility] [address] [place] [address] MCV (RBC) [Entitic vol] 87 fL Normal 80 - 100 [facility] Comment on above: Performed By: #### C OAGS #### [facility] [address] [place] [address] Nucleated RBC/100 WBC (Bld) [Ratio] 0.2 /100 WBC Normal 0.0-0.0 [facility] Comment on above: Performed By: #### C OAGS #### [facility] [address] [place] [address] Platelets (Bld) [#/Vol] 221 10*3/uL Normal 150 - 450 [facility] Comment on above: Performed By: #### C OAGS #### [facility] [address] [place] [address] RBC (Bld) [#/Vol] 2.98 x10E12/L Low 4.50 - 5.90 [facility] Comment on above: Performed By: #### C OAGS #### [facility] [address] [place] [address] WBC (Bld) [#/Vol] 6.5 10*3/uL Normal 4.4 - 11.3 [facility] Comment on above: Performed By: #### C OAGS #### [facility] [address] [place] [address] Erythrocyte distribution width (RBC) [Ratio] 14.2 % Normal 11.5 - 14.5 [facility] Comment on above: Performed By: #### C BC ####[id number] [place] [address] Hematocrit (Bld) [Volume fraction] 30.0 % Low 41.0 - 52.0 [facility] Comment on above: Performed By: #### C BC ####[id number] [place] [address] Hemoglobin (Bld) [Mass/Vol] 10.0 g/dL Low 13.5 - 17.5 [facility] Comment on above: Performed By: #### C BC ####[id number] [place] [address] MCHC (RBC) [Mass/Vol] 33.3 g/dL Normal 32.0 - 36.0 [facility] Comment on above: Performed By: #### C BC ####[id number] [place] [address] MCV (RBC) [Entitic vol] 94 fL Normal 80 - 100 [facility] Comment on above: Performed By: #### C BC ####[id number] [place] [address] Nucleated RBC/100 WBC (Bld) [Ratio] 0.0 /100 WBC Normal 0.0-0.0 [facility] Comment on above: Performed By: #### C BC ####[id number] [place] [address] Platelets (Bld) [#/Vol] 190 10*3/uL Normal 150 - 450 [facility] Comment on above: Performed By: #### C BC ####[id number] [place] [address] RBC (Bld) [#/Vol] 3.20 x10E12/L Low 4.50 - 5.90 [facility] Comment on above: Performed By: #### C BC ####[id number] [place] [address] WBC (Bld) [#/Vol] 6.5 10*3/uL Normal 4.4 - 11.3 [facility] Comment on above: Performed By: #### C BC ####[id number] [place] [address] Erythrocyte distribution width (RBC) [Ratio] 14.6 % High 11.5 - 14.5 [facility] Comment on above: Performed By: #### C BC ####[id number] [place] [address] Hematocrit (Bld) [Volume fraction] 22.9 % Low 41.0 - 52.0 [facility] Comment on above: Performed By: #### C BC ####[id number] [place] [address] Hemoglobin (Bld) [Mass/Vol] 7.0 g/dL Low 13.5 - 17.5 [facility] Comment on above: Performed By: #### C BC ####[id number] [place] [address] MCHC (RBC) [Mass/Vol] 30.6 g/dL Low 32.0 - 36.0 [facility] Comment on above: Performed By: #### C BC ####[id number] [place] [address] MCV (RBC) [Entitic vol] 103 fL High 80 - 100 [facility] Comment on above: Performed By: #### C BC ####[id number] [place] [address] Nucleated RBC/100 WBC (Bld) [Ratio] 0.0 /100 WBC Normal 0.0-0.0 [facility] Comment on above: Performed By: #### C BC ####[id number] [place] [address] Platelets (Bld) [#/Vol] 195 10*3/uL Normal 150 - 450 [facility] Comment on above: Performed By: #### C BC ####[id number] [place] [address] RBC (Bld) [#/Vol] 2.23 x10E12/L Low 4.50 - 5.90 [facility] Comment on above: Performed By: #### C BC ####[id number] [id number] WBC (Bld) [#/Vol] 5.7 10*3/uL Normal 4.4 - 11.3 [facility] Comment on above: Performed By: #### C BC ####[id number] [id number] Erythrocyte distribution width (RBC) [Ratio] Canceled Normal [facility] Comment on above: Order Comment: TEST CBC WAS CANCELLED, 04/15/2018 04:45 ?Cancel Reason: Cancelled. Performed By: #### C BC ####[id number] [id number] Order Comment: TEST CBC WAS CANCELLED, 04/16/2018 10:43 ?Cancel Reason: Discontinued. Hematocrit (Bld) [Volume fraction] Canceled Normal [facility] Comment on above: Order Comment: TEST CBC WAS CANCELLED, 04/16/2018 10:43 ?Cancel Reason: Discontinued. Performed By: #### C BC ####[id number] [id number] Order Comment: TEST CBC WAS CANCELLED, 04/15/2018 04:45 ?Cancel Reason: Cancelled. Hemoglobin (Bld) [Mass/Vol] Canceled Normal [facility] Comment on above: Order Comment: TEST CBC WAS CANCELLED, 04/16/2018 10:43 ?Cancel Reason: Discontinued. Performed By: #### C BC ####[id number] [place] [address] Order Comment: TEST CBC WAS CANCELLED, 04/15/2018 04:45 ?Cancel Reason: Cancelled. MCHC (RBC) [Mass/Vol] Canceled Normal [facility] Comment on above: Order Comment: TEST CBC WAS CANCELLED, 04/16/2018 10:43 ?Cancel Reason: Discontinued. Performed By: #### C BC ####[id number] [place] [address] Order Comment: TEST CBC WAS CANCELLED, 04/15/2018 04:45 ?Cancel Reason: Cancelled. MCV (RBC) [Entitic vol] Canceled Normal [facility] Comment on above: Order Comment: TEST CBC WAS CANCELLED, 04/16/2018 10:43 ?Cancel Reason: Discontinued. Performed By: #### C BC ####[id number] [place] [address] Order Comment: TEST CBC WAS CANCELLED, 04/15/2018 04:45 ?Cancel Reason: Cancelled. Nucleated RBC/100 WBC (Bld) [Ratio] Canceled Normal [facility] Comment on above: Order Comment: TEST CBC WAS CANCELLED, 04/15/2018 04:45 ?Cancel Reason: Cancelled. Performed By: #### C BC ####[id number] [place] [address] Order Comment: TEST CBC WAS CANCELLED, 04/16/2018 10:43 ?Cancel Reason: Discontinued. Platelets (Bld) [#/Vol] Canceled Normal [facility] Comment on above: Order Comment: TEST CBC WAS CANCELLED, 04/15/2018 04:45 ?Cancel Reason: Cancelled. Performed By: #### C BC ####[id number] [place] [address] Order Comment: TEST CBC WAS CANCELLED, 04/16/2018 10:43 ?Cancel Reason: Discontinued. RBC (Bld) [#/Vol] Canceled Normal [facility] Comment on above: Order Comment: TEST CBC WAS CANCELLED, 04/15/2018 04:45 ?Cancel Reason: Cancelled. Performed By: #### C BC ####[id number] [place] [address] Order Comment: TEST CBC WAS CANCELLED, 04/16/2018 10:43 ?Cancel Reason: Discontinued. WBC (Bld) [#/Vol] Canceled Normal [facility] Comment on above: Order Comment: TEST CBC WAS CANCELLED, 04/15/2018 04:45 ?Cancel Reason: Cancelled. Performed By: #### C BC ####[id number] [place] [address] Order Comment: TEST CBC WAS CANCELLED, 04/16/2018 10:43 ?Cancel Reason: Discontinued. COAGULATION SCREENon 019 aPTT Coag (Bld) [Time] 32 s Normal 28 - 38 [facility] Comment on above: Result Comment: Note new reference range as of 01/17/2018. THE APTT IS NO LONGER USED FOR MONITORING UNFRACTIONATED HEPARIN THERAPY. FOR MONITORING HEPARIN THERAPY, USE THE HEPARIN ASSAY. Performed By: #### C OAGS ####[id number] [place] [address] INR Coag (PPP) [Relative time] 1.1 {INR} Normal 0.9 - 1.1 [facility] Comment on above: Performed By: #### C OAGS ####[id number] [place] [address] PT Coag (PPP) [Time] 12.2 s Normal 9.7 - 12.7 [facility] Comment on above: Result Comment: Note new reference range as of 01/17/2018. Performed By: #### C OAGS ####[id number] [place] [address] aPTT Coag (Bld) [Time] Canceled Normal [facility] Comment on above: Order Comment: TEST COAGULATION SCREEN WAS CANCELLED, 04/16/2018 10:43 ?Cancel Reason:Discontinued. Result Comment: Note new reference range as of 01/17/2018. THE APTT IS NO LONGER USED FOR MONITORING UNFRACTIONATED HEPARIN THERAPY. FOR MONITORING HEPARIN THERAPY, USE THE HEPARIN ASSAY. Performed By: #### C OAGS ####[id number] [place] [address] INR Coag (PPP) [Relative time] Canceled Normal [facility] Comment on above: Order Comment: TEST COAGULATION SCREEN WAS CANCELLED, 04/16/2018 10:43 ?Cancel Reason:Discontinued. Performed By: #### C OAGS ####[id number] [place] [address] PT Coag (PPP) [Time] Canceled Normal [facility] Comment on above: Order Comment: TEST COAGULATION SCREEN WAS CANCELLED, 04/16/2018 10:43 ?Cancel Reason:Discontinued. Result Comment: Note new reference range as of 01/17/2018. Performed By: #### C OAGS ####[id number] [place] [address] Clinical Event Noteon 2018 Clinical Event Note Event: Details: 04/16/2018 4024 Aden Patel called. Patient was on the commode and [...] 16-Apr-2018 13:37 by Carolina Poon (STACI) Normal [facility] Consult-Renalon 04-16-2018 Consult-Renal Service: Service: [...] Known Allergies: Objective: Objective Information: T PRBPSpO2 Value37.79774516/15941% Date/Time04/16 16: 18:: 14: 18:00 Range(35.9C - 37.2C ) (72 [...] WEIGHT (kg)) 96.6 Direct Arterial Blood Pressure Csycfjln329(87 - 193)04/16 18:30 Diastolic (mm Hg)57(48 - 86)04/16 18:30 Mean (mm Hg)70(61 - 110)04/16 18:30 Pulse Pressure (mm Hg)52(35 - 107)04/16 18:30 ---- Intake and Output ----- Mn/Dy/[facility]Out[facility] Apr 16, 2018 2:00 [id number] Apr 15, 2018 10:00 [id number] The Intake and Output Totals for the last 24 hours are: [facility]Out[facility] [id number] Physical Exam: Constitutional: NAD, Cooperative Eyes: Clear [...] laboratory results: Complete Blood Count Trending View Gqmequ33-Cex-1896 14:24:00 16-Apr-2018 11:17:00 White Blood Cell Count6.5 5.7 Nucleated Erythrocyte Count0.0 0.0 Red Blood Cell Count3.20 L 2.23 L HGB10.0 L 7.0 L HCT30.0 L 22.9 L MCV94 103 H MCHC33.3 30.6 L JRH879 195 RDW-CV14.2 14.6 H Arterial Full Panel Trending View Gtgwnb82-Yjb-9469 14:23:00 16-Apr-2018 11:43:00 pH, Arterial7.34 L 7.31 L pCO2, Ranoitfw47 36 L pO2, Dmbppjpd52 L 57 L Patient-Dfsqzoxgans47.0 37.0 SO2, Tvrwlssm15 L 93 L HCT26.0 L 18.0 L Sodium-Orusq356 L 129 L Potassium-Level4.6 4.5 Chloride-Level97 L 98 Calcium, Ionized-Level1.06 L 1.06 L Glucose-Ylurt123 H 155 H Lactate-Level3.1 H 5.8 HH Base Wjuflm-Wtjhu-8.9 L -7.5 L Bicarbonate, Calculated, Lmjqpuav21.6 L 18.1 L HGB, Calculated8.8 L 6.1 LL Anion Gap-Level14 17 Lab Comment: [facility] CALLED RB TO GM JACINTO, [...] <10 L Sodium, Urine Spot Trending View Yliurq00-Dta-1314 19:18:00 15-Apr-2018 14:48:00 Sodium Urine Spot14 12 Sodium/Creat Upcwj790 462 Creatinine, Urine Spot11.9 L 2.6 L [...] No hydronephrosis. Plan: -No acute indication for [employer] BLASTING. -Agree with fluid resuscitation and vasopressors. Target MAPs >70 for optimum renal perfusion. -Check a intra-bladder pressure. -Order UA, FeNa, and FeUrea when possible. -Strict I&O's, Daily weights -Avoid nephrotoxic agents, hypotension, IV contrast, and NSAIDs when possible. -Renally dose medications. Discussed with attending. Audrey Zuniga Renal Fellow #[id number] Signature/Cosignature/Attesta tion: Attending AttestationI saw and evaluated [...] Updated: 16-Apr-2018 21:54 by Yary Persaud) Normal [facility] Daily Progress Note-Colorect al Surgeryon [...] Information: ---- Intake and Output ----- Mn/Dy/Year TimeIntakeOutB[facility] Apr 15, 2018 10:00 [id number] Apr 15, 2018 2:00 [id number] The Intake and Output Totals for the last 24 hours are: IntakeOutputNet [id number] T PRBPSpO2 Value35.2677105/5597% Date/Time04/16 8: 11: 11: 11: 8:52 Range(35.9C - 36.5C ) (73 - 84 ) (16 - 24 ) (79 - 133 )/ (53 - 87 ) (91% - 98% ) ---- Intake and Output ----- Mn/Dy/Year TimeIntakeOutB[facility] Apr 15, 2018 10:00 [id number] Apr 15, 2018 2:00 [id number] The Intake and Output Totals for the last 24 hours are: IntakeOutputNet [id number] Intake Output Enteral - Oral 840 mL [...] Dr. Quigley. Marquez [facility] General Surgery, PGY-2 [place] [address] Signature/Cosignature/Attesta tion: Attending AttestationI reviewed the resident/fellows [...] Updated: 21-Apr-2018 12:10 by Ever Quigley) Normal [facility] EMR ADDONon 04-16-2018 ADDON CONFIRMATION REQUEST REC'D Normal [facility] Comment on above: Performed By: #### E MRAD ####NO LOCATION NEEDED ADDON CONFIRMATION REQUEST REC'D Normal [facility] Comment on above: Performed By: #### E MRAD ####NO LOCATION NEEDED FIBRINOGENon 04-16-2018 FIBRINOGEN 503 mg/dL High 200 - 400 [facility] Comment on above: Performed By: #### F IB ####[id number] [place] [address] GLUCOSE-POCTon 04-16-2018 Glucose [Mass/Vol] 136 mg/dL High 74 - 99 [facility] Comment on above: Performed By: #### G VAISHALI ####[id number] [place] [address] Glucose [Mass/Vol] 127 mg/dL High 74 - 99 [facility] Comment on above: Performed By: #### G VAISHALI ####[id number] [place] [address] HEPATIC FUNCTION PANELon ALP [Catalytic activity/Vol] 54 U/L Normal 33 - 136 [facility] Comment on above: Performed By: #### H EPFP ####[id number] [place] [address] ALT [Catalytic activity/Vol] 25 U/L Normal 10 - 52 [facility] Comment on above: Result Comment: Darlene ents treated with Sulfasalazine may generate falsely decreased results for ALT. Performed By: #### H EPFP ####[id number] [place] [address] AST [Catalytic activity/Vol] 42 U/L High 9 - 39 [facility] Comment on above: Performed By: #### H EPFP ####[id number] [place] [address] Bilirubin [Mass/Vol] 0.4 mg/dL Normal 0.0 - 1.2 [facility] Comment on above: Performed By: #### H EPFP ####[id number] [place] [address] Bilirubin.direct [Mass/Vol] 0.1 mg/dL Normal 0.0 - 0.3 [facility] Comment on above: Performed By: #### H EPFP ####[id number] [place] [address] Protein [Mass/Vol] 4.6 g/dL Low 6.4 - 8.2 [facility] Comment on above: Performed By: #### H EPFP ####[id number] [place] [address] Albumin [Mass/Vol] 2.8 g/dL Low 3.4 - 5.0 [facility] Comment on above: Performed By: #### H EPFP ####[id number] [place] [address] Performed By: #### R ENAL ####[id number] [place] [address] LIPASEon 04-16-2018 Lipase [Catalytic activity/Vol] U/L Abnormal 9 - 82 [facility] Comment on above: Result Comment: Astrid puncture immediately after or during the administration of Metamizole may lead to falsely low results. Testing should be performed immediately prior to Metamizole dosing. Performed By: #### L IPAS ####[id number] [place] [address] MAGNESIUMon 04-16-2018 Magnesium [Mass/Vol] 1.95 mg/dL Normal 1.60 - 2.40 [facility] Comment on above: Performed By: #### M G ####[id number] [place] [address] Magnesium [Mass/Vol] Canceled Normal [facility] Comment on above: Order Comment: TEST MAGNESIUM WAS CANCELLED, 04/16/2018 10:43 ?Cancel Reason: Discontinued. Performed By: #### M G ####[id number] [place] [address] Magnesium [Mass/Vol] 1.63 mg/dL Normal 1.60 - 2.40 [facility] Comment on above: Performed By: #### M G ####[id number] [place] [address] RENAL FUNCTION PANELon 04-16 Anion gap [Moles/Vol] 23 mmol/L High 10 - 20 [facility] Comment on above: Performed By: #### R ENAL ####[id number] [place] [address] Calcium [Mass/Vol] 7.9 mg/dL Low 8.6 - 10.6 [facility] Comment on above: Performed By: #### R ENAL ####[id number] [place] [address] Chloride [Moles/Vol] 98 mmol/L Normal 98 - 107 [facility] Comment on above: Performed By: #### R ENAL ####[id number] [place] [address] Creatinine [Mass/Vol] 4.29 mg/dL High 0.50 - 1.30 [facility] Comment on above: Performed By: #### R ENAL ####[id number] [place] [address] GFR- AM. 17 mL/min/1.73m2 Abnormal >60 [facility] Comment on above: Result Comment: CALC ULATIONS OF ESTIMATED GFR ARE PERFORMED USING THE MDRD STUDY EQUATION FOR THE IDMS-TRACEABLE CREATININE METHODS. CLIN CHEM 2007;53:766-72 Performed By: #### R ENAL ####[id number] [place] [address] GFR-NON AM. 14 mL/min/1.73m2 Abnormal >60 [facility] Comment on above: Performed By: #### R ENAL ####[id number] [place] [address] Glucose [Mass/Vol] 161 mg/dL High 74 - 99 [facility] Comment on above: Performed By: #### R ENAL ####[id number] [place] [address] HCO3 (Bld) [Moles/Vol] 17 mmol/L Low 21 - 32 [facility] Comment on above: Performed By: #### R ENAL ####[id number] [place] [address] Phosphate [Mass/Vol] 7.4 mg/dL High 2.5 - 4.9 [facility] Comment on above: Result Comment: The performance characteristics of phosphorus testing in heparinized plasma have been validated by the individual laboratory site where testing is performed. Testing on heparinized plasma is not approved by the FDA; however, such approval is not necessary. Performed By: #### R ENAL ####[id number] [place] [address] Potassium [Moles/Vol] 4.8 mmol/L Normal 3.5 - 5.3 [facility] Comment on above: Performed By: #### R ENAL ####[id number] [place] [address] Sodium [Moles/Vol] 133 mmol/L Low 136 - 145 [facility] Comment on above: Performed By: #### R ENAL ####[id number] [place] [address] Urea nitrogen [Mass/Vol] 46 mg/dL High 6 - 23 [facility] Comment on above: Performed By: #### R ENAL ####[id number] [place] [address] REQUEST-LEUKOREDUCED RED DANNY LSon 04-16-2018 REQUEST-LEUKOREDU MABEL RED CELLS ORDER RECD Normal [facility] Comment on above: Performed By: #### O CONVENTION SERVICES DIRECTOR ####[id number] [place] [address] SODIUM, URINE SPOTon 019 CREATININE,URINE 11.9 mg/dL Low 20.0 - 370.0 [facility] Comment on above: Performed By: #### S ODS2 ####[id number] [place] [address] Sodium (U) [Moles/Vol] 14 mmol/L Normal Not Established [facility] Comment on above: Performed By: #### S ODS2 ####[id number] [place] [address] SODIUM/CREAT RATIO 118 mmol/g Creat Normal Not Established [facility] Comment on above: Performed By: #### S ODS2 ####[id number] [place] [address] TH CHEST 1 VIEWon 04-16-2018 TH CHEST 1 VIEW Patient Name: ADEN PATEL STUDY: TH CHEST 1 VIEW; 04/16/2018 1:14 pm INDICATION: Signs/Symptoms: stat. COMPARISON: None. ACCESSION NUMBER(S): [id number] ORDERING CLINICIAN: STANFORD SANCHEZ FINDINGS: Left IJ [...] as stated. This study was interpreted at [place], [place]. Electronically signed by: DAYNE HUBBARD MD Normal [facility] BASIC METABOLIC PANELon 03-28 Anion gap [Moles/Vol] 18 mmol/L Normal 10 - 20 [facility] Comment on above: Performed By: #### B MP ####[id number] [place] [address] Performed By: #### C MP ####[id number] [place] [address] Calcium [Mass/Vol] 8.5 mg/dL Low 8.6 - 10.6 [facility] Comment on above: Performed By: #### B MP ####[id number] [place] [address] Chloride [Moles/Vol] 99 mmol/L Normal 98 - 107 [facility] Comment on above: Performed By: #### B MP ####[id number] [place] [address] Performed By: #### C MP ####[id number] [place] [address] Creatinine [Mass/Vol] 2.27 mg/dL High 0.50 - 1.30 [facility] Comment on above: Performed By: #### B MP ####[id number] [place] [address] GFR- AM. 35 mL/min/1.73m2 Abnormal >60 [facility] Comment on above: Result Comment: CALC ULATIONS OF ESTIMATED GFR ARE PERFORMED USING THE MDRD STUDY EQUATION FOR THE IDMS-TRACEABLE CREATININE METHODS. CLIN CHEM 2007;53:766-72 Performed By: #### B MP ####[id number] [place] [address] GFR-NON AM. 29 mL/min/1.73m2 Abnormal >60 [facility] Comment on above: Performed By: #### B MP ####[id number] [place] [address] Glucose [Mass/Vol] 167 mg/dL High 74 - 99 [facility] Comment on above: Performed By: #### B MP ####[id number] [place] [address] HCO3 (Bld) [Moles/Vol] 20 mmol/L Low 21 - 32 [facility] Comment on above: Performed By: #### B MP ####[id number] [place] [address] Potassium [Moles/Vol] 4.7 mmol/L Normal 3.5 - 5.3 [facility] Comment on above: Performed By: #### B MP ####[id number] [place] [address] Sodium [Moles/Vol] 132 mmol/L Low 136 - 145 [facility] Comment on above: Performed By: #### B MP ####[id number] [place] [address] Performed By: #### C MP ####[id number] [place] [address] Urea nitrogen [Mass/Vol] 26 mg/dL High 6 - 23 [facility] Comment on above: Performed By: #### B MP ####[id number] [place] [address] CALCIUM, IONIZEDon 9 CALCIUM,IONIZED 1.15 mmol/L Normal 1.10 - 1.33 [facility] Comment on above: Result Comment: The performance characteristics of ionized calcium tested in heparinized plasma or serum have been validated by the individual laboratory site where testing is performed. Testing on heparinized plasma or serum is not approved by the FDA; however, such approval is not necessary. Performed By: #### I ONC1 ####[id number] [place] [address] CBCon 04-15-2018 Erythrocyte distribution width (RBC) [Ratio] 14.4 % Normal 11.5 - 14.5 [facility] Comment on above: Performed By: #### C BC ####[id number] [place] [address] Hematocrit (Bld) [Volume fraction] 29.1 % Low 41.0 - 52.0 [facility] Comment on above: Performed By: #### C BC ####[id number] [place] [address] Hemoglobin (Bld) [Mass/Vol] 9.5 g/dL Low 13.5 - 17.5 [facility] Comment on above: Performed By: #### C BC ####[id number] [place] [address] MCHC (RBC) [Mass/Vol] 32.6 g/dL Normal 32.0 - 36.0 [facility] Comment on above: Performed By: #### C BC ####[id number] [place] [address] MCV (RBC) [Entitic vol] 98 fL Normal 80 - 100 [facility] Comment on above: Performed By: #### C BC ####[id number] [place] [address] Nucleated RBC/100 WBC (Bld) [Ratio] 0.0 /100 WBC Normal 0.0-0.0 [facility] Comment on above: Performed By: #### C BC ####[id number] [place] [address] Platelets (Bld) [#/Vol] 222 10*3/uL Normal 150 - 450 [facility] Comment on above: Performed By: #### C BC ####[id number] [place] [address] RBC (Bld) [#/Vol] 2.96 x10E12/L Low 4.50 - 5.90 [facility] Comment on above: Performed By: #### C BC ####[id number] [place] [address] WBC (Bld) [#/Vol] 13.3 10*3/uL High 4.4 - 11.3 [facility] Comment on above: Performed By: #### C BC ####[id number] [place] [address] Erythrocyte distribution width (RBC) [Ratio] 14.3 % Normal 11.5 - 14.5 [facility] Comment on above: Performed By: #### C BC ####[id number] [place] [address] Hematocrit (Bld) [Volume fraction] 32.9 % Low 41.0 - 52.0 [facility] Comment on above: Performed By: #### C BC ####[id number] [place] [address] Hemoglobin (Bld) [Mass/Vol] 10.5 g/dL Low 13.5 - 17.5 [facility] Comment on above: Performed By: #### C BC ####[id number] [place] [address] MCHC (RBC) [Mass/Vol] 31.9 g/dL Low 32.0 - 36.0 [facility] Comment on above: Performed By: #### C BC ####[id number] [place] [address] MCV (RBC) [Entitic vol] 99 fL Normal 80 - 100 [facility] Comment on above: Performed By: #### C BC ####[id number] [place] [address] Nucleated RBC/100 WBC (Bld) [Ratio] 0.0 /100 WBC Normal 0.0-0.0 [facility] Comment on above: Performed By: #### C BC ####[id number] [place] [address] Platelets (Bld) [#/Vol] 232 10*3/uL Normal 150 - 450 [facility] Comment on above: Performed By: #### C BC ####[id number] [place] [address] RBC (Bld) [#/Vol] 3.31 x10E12/L Low 4.50 - 5.90 [facility] Comment on above: Performed By: #### C BC ####[id number] [place] [address] WBC (Bld) [#/Vol] 12.8 10*3/uL High 4.4 - 11.3 [facility] Comment on above: Performed By: #### C BC ####[id number] [place] [address] COAGULATION SCREENon 019 aPTT Coag (Bld) [Time] 33 s Normal 28 - 38 [facility] Comment on above: Result Comment: Note new reference range as of 01/17/2018. THE APTT IS NO LONGER USED FOR MONITORING UNFRACTIONATED HEPARIN THERAPY. FOR MONITORING HEPARIN THERAPY, USE THE HEPARIN ASSAY. Performed By: #### C OAGS ####[id number] [place] [address] INR Coag (PPP) [Relative time] 1.1 {INR} Normal 0.9 - 1.1 [facility] Comment on above: Performed By: #### C OAGS ####[id number] [place] [address] PT Coag (PPP) [Time] 12.0 s Normal 9.7 - 12.7 [facility] Comment on above: Result Comment: Note new reference range as of 01/17/2018. Performed By: #### C OAGS ####[id number] [place] [address] COMPREHENSIVE PANELon 2018 Albumin [Mass/Vol] 3.2 g/dL Low 3.4 - 5.0 [facility] Comment on above: Performed By: #### C MP ####[id number] [place] [address] ALP [Catalytic activity/Vol] 70 U/L Normal 33 - 136 [facility] Comment on above: Performed By: #### C MP ####[id number] [place] [address] ALT [Catalytic activity/Vol] 8 U/L Low 10 - 52 [facility] Comment on above: Result Comment: Darlene ents treated with Sulfasalazine may generate falsely decreased results for ALT. Performed By: #### C MP ####[id number] [place] [address] AST [Catalytic activity/Vol] 14 U/L Normal 9 - 39 [facility] Comment on above: Performed By: #### C MP ####[id number] [place] [address] Bilirubin [Mass/Vol] 0.9 mg/dL Normal 0.0 - 1.2 [facility] Comment on above: Performed By: #### C MP ####[id number] [place] [address] Calcium [Mass/Vol] 8.4 mg/dL Low 8.6 - 10.6 [facility] Comment on above: Performed By: #### C MP ####[id number] [place] [address] Creatinine [Mass/Vol] 2.03 mg/dL High 0.50 - 1.30 [facility] Comment on above: Performed By: #### C MP ####[id number] [place] [address] GFR- AM. 40 mL/min/1.73m2 Abnormal >60 [facility] Comment on above: Result Comment: CALC ULATIONS OF ESTIMATED GFR ARE PERFORMED USING THE MDRD STUDY EQUATION FOR THE IDMS-TRACEABLE CREATININE METHODS. CLIN CHEM 2007;53:766-72 Performed By: #### C MP ####[id number] [place] [address] GFR-NON AM. 33 mL/min/1.73m2 Abnormal >60 [facility] Comment on above: Performed By: #### C MP ####[id number] [place] [address] Glucose [Mass/Vol] 159 mg/dL High 74 - 99 [facility] Comment on above: Performed By: #### C MP ####[id number] [place] [address] HCO3 (Bld) [Moles/Vol] 19 mmol/L Low 21 - 32 [facility] Comment on above: Performed By: #### C MP ####[id number] [place] [address] Potassium [Moles/Vol] 4.4 mmol/L Normal 3.5 - 5.3 [facility] Comment on above: Performed By: #### C MP ####[id number] [place] [address] Protein [Mass/Vol] 5.1 g/dL Low 6.4 - 8.2 [facility] Comment on above: Performed By: #### C MP ####[id number] [place] [address] Urea nitrogen [Mass/Vol] 22 mg/dL Normal 6 - 23 [facility] Comment on above: Performed By: #### C MP ####[id number] [place] [address] Clinical Event Note-CODE NAUN Carter 04-15-2018 Clinical Event Note-CODE WHITE Event: Topic: CODE WHITE Details: ELLE ALMEIDA/MARTHA TEAM CALLED, PT WENT [...] Contact Information: Provider/Team Contact Info-Pager Number: [phone] Electronic Signatures: Medardo Padgett (RN) (Signed 15-Apr-2018 06:28) Authored: Event, Provider / Team Contact Information Last Updated: 15-Apr-2018 06:28 by Medardo Padgett (GORDON) Normal [facility] Clinical Event Note-Code Naun carter 04-15-2018 Clinical Event Note-Code White Event: [...] Chief general surgery resident, Dr. Caldwell, and founder ceo & president, Dr. Traylor, were additionally present during the code white. Clara Eaton MD General Surgery, PGY1 [place] [facility] [address] Electronic Signatures: Clara Eaton ( (Resident)) (Signed 15-Apr-2018 06:22) Authored: Event Last Updated: 15-Apr-2018 06:22 by Clara Eaton ( (Resident)) Normal [facility] Clinical Event Note-code naun carter 04-15-2018 Clinical Event Note-code white Event: Topic: [...] Team Contact Information: Provider/Team Contact Info-Pager Number: [phone] Electronic Signatures: Angelica Christopher (STACI) (Signed 15-Apr-2018 10:21) Authored: Event, Provider / Team Contact Information Last Updated: 15-Apr-2018 10:21 by Angelica Christopher (STACI) Normal [facility] Daily Progress Note-Colorect al Surgeryon [...] ----- Mn/Dy/Year TimeIntakeOutputNet Apr 14, 2018 10:00 [id number] Apr 14, 2018 2:00 [id number] The Intake and Output Totals for the last 24 hours are: IntakeOutputNet [id number] T PRBPSpO2 Value37.1753153/5094% Date/Time04/15 8: 9: 9: 9: 9:29 Range(36.2C [...] mg Oral Every 6 Hours 2. HYDROmorphone WAREHOUSE ORDER PULLER 25 mg/ NaCL 0.9% 50 mL: 25 mg IV WAREHOUSE ORDER PULLER 3. Gabapentin: 300 mg Oral 3 Times [...] IS -dvt ppx López Blake [place] [address] Signature/Cosignature/Attesta tion: Attending AttestationI saw and evaluated [...] Updated: 21-Apr-2018 12:05 by Ever Quigley) Normal [facility] EMR ADDONon 04-15-2018 ADDON CONFIRMATION REQUEST REC'D Normal [facility] Comment on above: Performed By: #### E MRAD ####NO LOCATION NEEDED MAGNESIUMon 04-15-2018 Magnesium [Mass/Vol] 1.72 mg/dL Normal 1.60 - 2.40 [facility] Comment on above: Performed By: #### M G ####[id number] [place] [address] PHOSPHORUSon 04-15-2018 Phosphate [Mass/Vol] 6.9 mg/dL High 2.5 - 4.9 [facility] Comment on above: Result Comment: The performance characteristics of phosphorus testing in heparinized plasma have been validated by the individual laboratory site where testing is performed. Testing on heparinized plasma is not approved by the FDA; however, such approval is not necessary. Performed By: #### P HOS ####[id number] [place] [address] SODIUM, URINE SPOTon 019 CREATININE,URINE 2.6 mg/dL Low 20.0 - 370.0 [facility] Comment on above: Performed By: #### S ODS2 ####[id number] [place] [address] Sodium (U) [Moles/Vol] 12 mmol/L Normal Not Established [facility] Comment on above: Performed By: #### S ODS2 ####[id number] [place] [address] SODIUM/CREAT RATIO 462 mmol/g Creat Normal Not Established [facility] Comment on above: Performed By: #### S ODS2 ####[id number] [place] [address] US RENAL BILATon 04-15-2018 US RENAL BILAT Patient Name: ADEN PATEL STUDY: US RENAL BILAT; 04/15/2018 1:40 pm INDICATION: Signs/Symptoms: Olguric. COMPARISON: None. ACCESSION NUMBER(S): [id number] ORDERING CLINICIAN: MARQUEZ BRONSON TECHNIQUE: Grayscale and [...] as stated. This study was interpreted at [facility]. Electronically signed by: CARLA VALENTINO MD, PHD Normal [facility] ABO/RH GROUP TESTon 04-14-19 19 ABO TYPE A Normal [facility] Comment on above: Performed By: #### V ERAB ####[id number] [place] [address] RH TYPE Positive Normal [facility] Comment on above: Performed By: #### V ERAB ####[id number] [place] [address] Clinical Event Note-Post Op Checkon 04-14-2018 Clinical [...] acute events. NPO with sips of water, WAREHOUSE ORDER PULLER. SCDs, IS Electronic Signatures: Pantera Wilcox (Resident)) (Signed 14-Apr-2018 17:03) Authored: Event Nolvia Colmenares) (Signed 20-Apr-2018 06:25) Co-Signer: Event Last Updated: 20-Apr-2018 06:25 by Nolvia Colmenares) Normal [facility] History and Physical - Surgi [...] Last Updated: 20-Apr-2018 05:47 by Nolvia Colmenares) [facility] OPERATIVE REPORTon 9 [place] [address] Patient Name: ADEN PATEL : 1950 Date of Service: 04/14/2018 Patient Location: [facility] Patient Type: I Surgeon: Nolvia Colmenares MD [...] of ventral hernia. SURGEON: Nolvia Colmenares MD STENCIL SPRAYER(S): López Robles Ma, MD ANESTHESIA: General endotracheal. [...] and was sent to Pathology. A new zhwd-cg-[id number] functional end-to-end ileocolic anastomosis was then created. This was done using a firing of the TAN-80 mm stapler. The open end of the bowel was closed with a firing of the TA-60 stapler, and the staple line was oversewn with a running 3-0 Vicryl stitch for hemostasis. The mesenteric defect was then reapproximated with interrupted 0 chromic zjkujk-bz-dhceq sutures. Attention was then turned to the [...] therefore repaired primarily with interrupted #1 Prolene naxjgm-oe-thldd stitches. A 10 mm Josh-Adler drain was [...] described above. Dr. López Blake was the pediatric medical assistant. Nolvia Colmenares MD EST TT: 04/22/2018 04:43 PM EST DICTATION NUMBER: [id number] [facility] JOB NUMBER: [id number] CC: Quentin Rangel, [id number] Electronically Signed by Dr. Nolvia Colmenares 05/03/2018 02:54:01 PM Normal [facility] Patient Profile - Preop v2on 04-14-2018 Patient Profile - Preop v2 Profile: Initial Info: How to be Addressedpaul(1) Spoken Language PreferredEnglish (1) Are you currently using the [employer] [facility] Record or [employer] (1) Are you interested in learning more about [employer] for the management of your healthnot at this time Stated Reason for Admissionbowel resection Primary Contact Name and [id number] Patient Belongingsremains with patient; under cart Medications Brought to Hospitalno General Health: Weight in kg96.6 kilogram(s) Weight in ask087.9 pound(s) Weight Methodstated Height in cm182.8 centimeter(s) [...] Withspouse(1) Living Arrangementshouse(1) Resource/Environmental Concernsnone Anticipated Transition To[facility] healthe Services Anticipated at Transitionnone Substance: Current or [...] instruction; written material Cultural Considerationsnone Developmental Considerationsnone Rastafari Considerationsnone Other learner availableno Falls RiskPatient location auto qualifies him/her for HIGH RISK. Are there any cultural, spiritual, alevism practices/values/needs that are important for us to knowno Pain Scalenumerical 0-10 Pain Scale Educationteaching provided Current Pain Level0 = None Acceptable Pain Level0 = None Chronic Painyes Information Review: Allergies, Home Meds and Significant Events have been Reviewed and Verified with Patient/Familyyes Allergy, Intolerance, Adverse Event: Allergies: No Known Allergies: Active Electronic Signatures: Марина Krishnamurthy) (Signed 14-Apr-2018 06:54) Authored: Profile, Additional Information Last Updated: 14-Apr-2018 06:54 by Марина Krishnamurthy (RN) References: 1. Data Referenced From Patient Profile - Adult v2 04/13/2018 5:58 PM Normal [facility] Preop Checkliston 04-14-2018 Preop Checklist Preop Checklist: Preop Checklist: Arrival [id number] NPO [id number] 00:00 ID Band Onyes Allergy Bandno known [...] 14-Apr-2018 06:38 by Medardo Padgett (GORDON) Normal [facility] TYPE + SCREENon 04-14-2018 ABO TYPE A Normal [facility] Comment on above: Performed By: #### T +S ####[id number] [place] [address] RH TYPE Positive Normal [facility] Comment on above: Performed By: #### T +S ####[id number] [id number] [facility] Surgical Pathology Depar tmenton 04-14-[address] [facility] Surgical Pathology Department Name ADEN [...] in the bowel. Photographs have been taken. Compensation Associate sections are submitted in 7 cassettes. NPH Summary of Cassettes: Specimen Label Site A 1-2 longer fistula tract with possible skin, 2 loan servicing representative sections 3 shorter fistula tract 4 anastomosis site 5 proximal margin, en face 6-7 distal margin, en face nph/04/14/2018 Normal [facility] Comment on above: Performed By: #### U [facility] ####[facility] Surgical Pathology [id number] [facility]CM[facility] [address] Admission Risk Screen - Adul ton 04-13-2018 [...] risk with low risk for associated injury [place] Safety InterventionsWDL *orient to call system *instruct [...] Learning Preferencesskill demonstration Cultural Considerationsnone Developmental Considerationsnone Rastafari Considerationsnone Other Learnersspouse Learning Assessment (Other Learner): Other learner availableyes... Learnerspouse Factors Influencing Readiness to Learninterest in learning Factors that Impact Ability to Learnnone Devices/Methods Used to Communicatenone Learning Preferencesaudio Cultural Considerationsnone Developmental Considerationsnone Rastafari Considerationsnone Suicide/Depression Screen: During the past month, [...] Spiritual Screen: Are there any cultural, spiritual, alevism practices/values/needs that are important for us to knowno Do you want a visit/item from Pastoral Ca[facility]o Would you like your Wood Treating Inspector/Wedding Planning Internship notifiedno CAGE: Is this an injured [place] a [place]): no Vaccinations: Vaccination - Influenza Vaccination Screen: [...] Pressure Injury: Pressure Injuryno Electronic Signatures: Alanna Roblero) (Signed 13-Apr-2018 17:57) Authored: Admission Risk Screens, Vaccinations, Noam, Pressure Injury Last Updated: 22-Apr-2018 14:00 by Estefania Menjivar (RN) Normal [facility] CBC AND DIFFERENTIALon 04-13 % AUTOMATED IMMATURE GRAN 0.4 % Normal 0.0 - 0.9 [facility] Comment on above: Result Comment: Perc ent differential counts (%) should be interpreted in the context of the absolute cell counts (cells/L). Performed By: #### C BCDF #### [facility] [address] [place] [address] Basophils (Bld) [#/Vol] 0.06 10*3/uL Normal 0.00 - 0.10 [facility] Comment on above: Performed By: #### C BCDF #### [facility] [address] [place] [address] Basophils/100 WBC (Bld) 0.9 % Normal 0.0 - 2.0 [facility] Comment on above: Performed By: #### C BCDF #### [facility] [address] [place] [address] Eosinophils (Bld) [#/Vol] 0.09 10*3/uL Normal 0.00 - 0.70 [facility] Comment on above: Performed By: #### C BCDF #### [facility] [address] [place] [address] Eosinophils/100 WBC (Bld) 1.3 % Normal 0.0 - 6.0 [facility] Comment on above: Performed By: #### C BCDF #### [facility] [address] [place] [address] Erythrocyte distribution width (RBC) [Ratio] 14.6 % High 11.5 - 14.5 [facility] Comment on above: Performed By: #### C BCDF #### [facility] [address] [place] [address] Hematocrit (Bld) [Volume fraction] 40.8 % Low 41.0 - 52.0 [facility] Comment on above: Performed By: #### C BCDF #### [facility] [address] [place] [address] Hemoglobin (Bld) [Mass/Vol] 13.5 g/dL Normal 13.5 - 17.5 [facility] Comment on above: Performed By: #### C BCDF #### [facility] [address] [place] [address] Lymphocytes (Bld) [#/Vol] 1.60 10*3/uL Normal 1.20 - 4.80 [facility] Comment on above: Performed By: #### C BCDF #### [facility] [address] [place] [address] Lymphocytes/100 WBC (Bld) 23.5 % Normal 13.0 - 44.0 [facility] Comment on above: Performed By: #### C BCDF #### [facility] [address] [place] [address] MCHC (RBC) [Mass/Vol] 33.1 g/dL Normal 32.0 - 36.0 [facility] Comment on above: Performed By: #### C BCDF #### [facility] [address] [place] [address] MCV (RBC) [Entitic vol] 96 fL Normal 80 - 100 [facility] Comment on above: Performed By: #### C BCDF #### [facility] [address] [place] [address] Monocytes (Bld) [#/Vol] 0.73 10*3/uL Normal 0.10 - 1.00 [facility] Comment on above: Performed By: #### C BCDF #### [facility] [address] [place] [address] Monocytes/100 WBC (Bld) 10.7 % Normal 2.0 - 10.0 [facility] Comment on above: Performed By: #### C BCDF #### [facility] [address] [place] [address] Neutrophils (Bld) [#/Vol] 4.31 10*3/uL Normal 1.20 - 7.70 [facility] Comment on above: Performed By: #### C BCDF #### [facility] [address] [place] [address] Neutrophils/100 WBC (Bld) 63.2 % Normal 40.0 - 80.0 [facility] Comment on above: Performed By: #### C BCDF #### [facility] [address] [place] [address] Nucleated RBC/100 WBC (Bld) [Ratio] 0.0 /100 WBC Normal 0.0-0.0 [facility] Comment on above: Performed By: #### C BCDF #### [facility] [address] [place] [address] Platelets (Bld) [#/Vol] 240 10*3/uL Normal 150 - 450 [facility] Comment on above: Performed By: #### C BCDF #### [facility] [address] [place] [address] RBC (Bld) [#/Vol] 4.27 x10E12/L Low 4.50 - 5.90 [facility] Comment on above: Performed By: #### C BCDF #### [facility] [address] [place] [address] WBC (Bld) [#/Vol] 6.8 10*3/uL Normal 4.4 - 11.3 [facility] Comment on above: Performed By: #### C BCDF #### [facility] [address] [place] [address] COAGULATION SCREENon 019 aPTT Coag (Bld) [Time] 36 s Normal 28 - 38 [facility] Comment on above: Result Comment: Note new reference range as of 01/17/2018. THE APTT IS NO LONGER USED FOR MONITORING UNFRACTIONATED HEPARIN THERAPY. FOR MONITORING HEPARIN THERAPY, USE THE HEPARIN ASSAY. Performed By: #### C OAGS #### [facility] [address] [place] [address] INR Coag (PPP) [Relative time] 1.0 {INR} Normal 0.9 - 1.1 [facility] Comment on above: Performed By: #### C OAGS #### [facility] [address] [place] [address] PT Coag (PPP) [Time] 11.3 s Normal 9.7 - 12.7 [facility] Comment on above: Result Comment: Note new reference range as of 01/17/2018. Performed By: #### C OAGS #### [facility] [address] [place] [address] Discharge Planning Noteon Discharge Planning Note Discharge Needs Assessment: Discharge Planning Assessment [id number] Discharge Planning Assessment Completed byNICK Stafford Readmission [...] Admission completed. Alexia LEYVA 04/20/18 @ 1145 Meat Process Worker: attempted to see pt, but he was in surgery. NICK Stafford 04/21/18 1500 Meat Process Worker: Attempted to see pt today, but he was having a central line placed. Per AUTO PAINTER, Garima Alarcon, tentative plan is for surgery on 04/24 for abd wound closure. NICK Stafford 04/24/18 @ 1530 education and training coordinator: attempted to see pt, but he was in surgery for abd wound closure. NICK Stafford 04/27/18 @ 1705 education and training coordinator: Interdisciplinary rounds completed at the bedside [...] to bad hip and gout. Pt had [facility] care nurse in the past for wound care. Address/phone verified. Home phone [phone] and 's cell [phone]. Pt has insurance, Aetna and Medicare a/b. PCP is Dr Rangel and preferred pharmacy is [facility] in [place]. Pt eval recommends SNF, but believes pt will be strong enough to go home with home care after discharge and if so would like [facility] home care. PT/OT will continue to evaluate discharge needs. SNF vs Home Care. NICK Stafford 04/28/18 1140 education and training coordinator note: In Interdisciplinary rounds I was told that the pt and do not want pt to go to a SNF despite PT recommending one. I will send preliminary home care referral to [facility] via the ACM. Марина Fuentes RN Meat Process Worker 05/01/18 @ 1120 Meat Process Worker: Pt will discharge home today with and home care from [facility] for RN and PT. Pt/ given the name and number to Reynaldo, Dr Colmenares and CRS adult live in caregiver to call with any questions or concerns. NICK Stafford 05-01-2018 11:39 Discharge Planning Progress Note - ACM 05/01/18 @ 1105 IMM delivered to the pt. The IMM was signed, dated and copy given to pt and original placed in chart. (Hannah Shin RN) 05/01/18 @1250 Patient Textile Slitting Machine Operator Note: Final HCO sent to [facility] for RN and PT service. NIKITA Mart [phone] 05/01/18 @ 9045: Pt discharged from [facility]. Pt given discharge instructions, present for teaching. PICC line removed from L upper arm. L upper arm appears to be swollen before and after removal. HOME HOSPICE AIDE is aware and still advises. to remove PICC. Swelling began to decrease prior to discharge. Pt given information on new blood pressure medications and follow up appointment info. Home care orders set up with pt. Pt taken to 's car in wheel chair by RN. Pt denies other needs at this time. Rosie Ramon RN Electronic Signatures: Марина Fuentes (RN) (Signed 28-Apr-2018 11:43) Authored: Discharge Planning Note Rosie Ramon (GORDON) (Signed 01-May-2018 20:24) Authored: Discharge Planning Note [...] Screen - Adult 04/13/2018 5:52 PM Normal [facility] HEPATIC FUNCTION PANELon ALP [Catalytic activity/Vol] 112 U/L Normal 33 - 136 [facility] Comment on above: Performed By: #### H EPFP #### [facility] [address] [place] [address] ALT [Catalytic activity/Vol] 13 U/L Normal 10 - 52 [facility] Comment on above: Result Comment: Darlene ents treated with Sulfasalazine may generate falsely decreased results for ALT. Performed By: #### H EPFP #### [facility] [address] [place] [address] AST [Catalytic activity/Vol] 17 U/L Normal 9 - 39 [facility] Comment on above: Performed By: #### H EPFP #### [facility] [address] [place] [address] Bilirubin [Mass/Vol] 0.8 mg/dL Normal 0.0 - 1.2 [facility] Comment on above: Performed By: #### H EPFP #### [facility] [address] [place] [address] Bilirubin.direct [Mass/Vol] 0.2 mg/dL Normal 0.0 - 0.3 [facility] Comment on above: Performed By: #### H EPFP #### [facility] [address] [place] [address] Protein [Mass/Vol] 7.2 g/dL Normal 6.4 - 8.2 [facility] Comment on above: Performed By: #### H EPFP #### [facility] [address] [place] [address] History and Physicalon 04-13 History and Physical [...] Family hx: HTN Rectal cancer in brother [place] in both parents Social: Current everyday smoker, [...] are negative Objective: Objective Information: T PRBPSpO2 [id number]/7899% Date/Time04/13 19:4804/13 19:4804/13 19:4804/13 19:4804/13 19:48 Range(36.2C [...] tract at the anastomosis. Plan: -Admit to [facility] -CLD, NPO at nc -Resume home beta jeannette as metoprolol 100mg BID -SCDs, SQH -Consented for OR tomorrow Discussed with Dr. Sanjana Eaton MD General Surgery, PGY1 [facility] [address] Signatures/Attestation/Certif ication: Attending AttestationI saw and evaluated [...] Updated: 20-Apr-2018 05:43 by Nolvia Colmenares) Normal [facility] History and Physical Comorbidities: Comorbid [...] Updated: 13-Apr-2018 11:03 by Nancy Kat) Normal [facility] MAGNESIUMon 04-13-2018 Magnesium [Mass/Vol] 1.76 mg/dL Normal 1.60 - 2.40 [facility] Comment on above: Performed By: #### M G #### [facility] [address] [place] [address] Patient Profile - Adult v2on 04-13-2018 Patient Profile - Adult v2 Profile: Initial Info: How to be Addressedpaul(1) Spoken Language PreferredEnglish (1) Source of Informationpatient Are you currently using the Personal Electronic Health Record or compareit4me (1) Stated Reason for Admissionsurgery in the morning [place] [facility] Patient Belongings Remaining with Patientcell phone/electronics Medications Brought to Hospitalno General Health: Weight in kg94.7 kilogram(s) Weight in tew136.7 pound(s) Height in feet6 feet Height in inches0 inch(es) Height in cm182.8 centimeter(s) BMI (kg/m2)28.339 square meter Weight Methodactual (measured) Scale Typebed Height Methodstated Blood Avoidance/Restrictionsnone(1) Previous Transfusion Reactionno(1) RSP Based Care: How would you like to [...] Withspouse Living Arrangementshouse Resource/Environmental Concernsnone Anticipated Transition [place] Services Anticipated at Transitionnone Significant IndicatorsComplete Information [...] - Preop v2 04/13/2018 10:42 AM Normal [facility] Patient Profile - Preop v2on 04-13-2018 Patient Profile - Preop v2 Profile: Initial Info: How to be Addressedpaul Spoken Language PreferredEnglish Are you currently using the Personal Electronic Health Record or [employer]CAREno Are you interested in learning more about [facility] for the management of your healthnot at this time Stated Reason for Admissionegd/colonoscopy Primary Contact Name and [id number] Patient Belongingsremains with patient; under cart Medications Brought to Hospitalno General Health: Weight in kg96.6 kilogram(s) Weight in vuj295 pound(s) Weight Methodstated Height in cm182.8 centimeter(s) [...] Withspouse Living Arrangementshouse Resource/Environmental Concernsnone [facility]ticipated [facility] Anticipated at Transitionnone Substance: Current or [...] instruction; written material Cultural Considerationsnone Developmental Considerationsnone Rastafari Considerationsnone Other learner availableno Falls RiskPatient location auto qualifies him/her for HIGH RISK. Are there any cultural, spiritual, alevism practices/values/needs that are important for us to [...] History, Active, bowel resection Electronic Signatures: Sarah Neff (STACI) (Signed 13-Apr-2018 10:47) Authored: Profile, Additional Information Last Updated: 13-Apr-2018 10:47 by Sarah Neff (STACI) Normal [facility] Preop Checkliston 04-13-2018 Preop Checklist Preop Checklist: Preop Checklist: Arrival [id number] Arrival Time10:30 Procedure Typecolonoscopy/egd NPO [id number] 08:00 ID Band Onyes Allergy Bandno known [...] 13-Apr-2018 10:43 by Tona Cárdenas (GORDON) Normal [facility] RENAL FUNCTION PANELon 04-13 Albumin [Mass/Vol] 4.5 g/dL Normal 3.4 - 5.0 [facility] Comment on above: Performed By: #### R ENAL ####[id number] [place] [address] Performed By: #### H EPFP #### [facility] [address] [place] [address] Anion gap [Moles/Vol] 14 mmol/L Normal 10 - 20 [facility] Comment on above: Performed By: #### R ENAL ####[id number] [place] [address] Calcium [Mass/Vol] 10.0 mg/dL Normal 8.6 - 10.6 [facility] Comment on above: Performed By: #### R ENAL ####[id number] [place] [address] Chloride [Moles/Vol] 98 mmol/L Normal 98 - 107 [facility] Comment on above: Performed By: #### R ENAL ####[id number] [place] [address] Creatinine [Mass/Vol] 0.71 mg/dL Normal 0.50 - 1.30 [facility] Comment on above: Performed By: #### R ENAL ####[id number] [place] [address] GFR- AM. >60 Normal >60 [facility] Comment on above: Result Comment: CALC ULATIONS OF ESTIMATED GFR ARE PERFORMED USING THE MDRD STUDY EQUATION FOR THE IDMS-TRACEABLE CREATININE METHODS. CLIN CHEM 2007;53:766-72 Performed By: #### R ENAL ####[id number] [place] [address] GFR-NON AM. >60 Normal >60 [facility] Comment on above: Performed By: #### R ENAL ####[id number] [place] [address] Glucose [Mass/Vol] 74 mg/dL Normal 74 - 99 [facility] Comment on above: Performed By: #### R ENAL ####[id number] [place] [address] HCO3 (Bld) [Moles/Vol] 28 mmol/L Normal 21 - 32 [facility] Comment on above: Performed By: #### R ENAL ####[id number] [place] [address] Phosphate [Mass/Vol] 3.9 mg/dL Normal 2.5 - 4.9 [facility] Comment on above: Result Comment: The performance characteristics of phosphorus testing in heparinized plasma have been validated by the individual laboratory site where testing is performed. Testing on heparinized plasma is not approved by the FDA; however, such approval is not necessary. Performed By: #### R ENAL ####[id number] [place] [address] Potassium [Moles/Vol] 4.3 mmol/L Normal 3.5 - 5.3 [facility] Comment on above: Performed By: #### R ENAL ####[id number] [place] [address] Sodium [Moles/Vol] 136 mmol/L Normal 136 - 145 [facility] Comment on above: Performed By: #### R ENAL ####[id number] [place] [address] Urea nitrogen [Mass/Vol] 9 mg/dL Normal 6 - 23 [facility] Comment on above: Performed By: #### R ENAL ####[id number] [place] [address] TRIGLYCERIDESon 04-13-2018 Triglyceride [Mass/Vol] 61 mg/dL Normal 0 - 149 [facility] Comment on above: Result Comment: [...] Metamizole dosing. Performed By: #### T RIG ####[id number] [place] [address] Established Visit (Gastroent erology)on 04-05-2018 Established Visit (Gastroenterology ) Chief ComplaintFollow up History of Present Owafvux87 yo man following up in the office [...] Current Meds Allopurinol 300 MG Oral Tablet;Therapy: 46Fhb3304 to RecordedDispense: 0 Days ; #: Sufficient Tablet; Refill: 0; KRISTEN = N; Record; Last Updated By: Hali Palomo; 10/04/2017 3:19:33 PM Bystolic 20 MG Oral Tablet;Therapy: 29Rfe0328 to RecordedDispense: 0 Days ; #: Sufficient Tablet; Refill: 0; KRISTEN = N; Record; Last Updated By: Hali Palomo; 10/04/2017 3:19:33 PM CloNIDine HCl - 0.1 MG Oral Tablet;Therapy: 09Yax4621 to RecordedDispense: 0 Days ; #: Sufficient Tablet; Refill: 0; KRISTEN = N; Record; Last Updated By: Hali Palomo; 10/04/2017 3:19:33 PM Colcrys 0.6 MG Oral Tablet;Therapy: 34Wck0620 to RecordedDispense: 0 Days ; #: Sufficient [...] Sodium 75 MG Oral Tablet Delayed Release;Therapy: 61Lup0580 to RecordedDispense: 90 Days ; #:180; Refill: 0; KRISTEN = N; Record; Last Updated By: Sandi Barry; 04/04/2018 12:37:18 PM Ferrous Sulfate 325 (65 Fe) MG Oral Tablet; TAKE 1 TABLET BY MOUTH TWICE A DAY;Therapy: 00Zsd2736 to RecordedRx By: JUAN CARLOS; Dispense: 90 Days ; #:180; Refill: 0; KRISTEN = N; Record; Last Updated By: Sandi Barry; 04/04/2018 12:37:18 PM Furosemide 20 MG Oral Tablet;Therapy: 46Ugy7661 to RecordedDispense: 90 Days ; #:90; Refill: 0; KRISTEN = N; Record; Last Updated By: Sandi Barry; 04/04/2018 12:37:18 PM Vitals Vital Signs Recorded: 04Apr2018 12:73SJXhtslotrefx51.9 FHeart Oewn14Faqlbudr741Gvliifssq67P eight6 ft Haojhe088 lb BMI Ltralbtmtt82.75BSA Calculated2.18 Physical ExamConstitutional General appearance: In no [...] GI; Status:Hold For - Scheduling; Requested for:04Apr2018; Perform:[facility]; Order Comments:needs anesthesia; Due:03Jul2018;Ordered; For:Abnormal weight loss; Ordered By:Nancy Kat;GI Mental Competence : Yes-pt mentally competent to provide consentEGD/Sigmoid Indications : Abdominal PainDiverticulitis of colon Colonoscopy; Status:Hold For - Scheduling; Requested for:04Apr2018; Perform:[facility]; Due:03Jul2018;Ordered; For:Diverticulitis of colon; Ordered By:Nancy Kat;GI Mental Competence : Yes-pt mentally competent to provide consentAdditional Information/Preferred Provider : no prior colonsocopyIndications : Abdominal PainHistory of diverticulitis of colon CT Abdomen and Pelvis with Contrast; Status:Hold For - Scheduling; Requestedfor:04Apr2018; Perform:[facility]; Due:03Jul2018;Ordered; For:History of [...] directives: living will and durable power of civil rights attorney for health care directives. Pain Screening: [...] Current Meds Allopurinol 300 MG Oral Tablet;Therapy: 82Lta8060 to Recorded Dispense: 0 Days ; #: Sufficient Tablet; Refill: 0; KRISTEN = N; Record; Last Updated By: Hali Palomo; 10/04/2017 3:19:33 PM Bystolic 20 MG Oral Tablet;Therapy: 55Ydk1662 to Recorded Dispense: 0 Days ; #: Sufficient Tablet; Refill: 0; KRISTEN = N; Record; Last Updated By: Hali Palomo; 10/04/2017 3:19:33 PM CloNIDine HCl - 0.1 MG Oral Tablet;Therapy: 75Eeu3215 to Recorded Dispense: 0 Days ; #: Sufficient Tablet; Refill: 0; KRISTEN = N; Record; Last Updated By: Hali Palomo; 10/04/2017 3:19:33 PM Colcrys 0.6 MG Oral Tablet;Therapy: 20Txq7943 to Recorded Dispense: 0 Days ; #: Sufficient Tablet; Refill: 0; KRISTEN = N; Record; Last Updated By: Hali Palomo; 10/04/2017 3:19:33 PM Indomethacin 50 MG Oral Capsule;Therapy: 10Dwi0761 to Recorded Dispense: 0 Days ; #: Sufficient Capsule; Refill: 0; KRISTEN = N; Record; Last Updated By: Hali Palomo; 04/04/2018 12:37:17 PM Lisinopril 20 MG Oral Tablet;Therapy: 32Khx8991 to Recorded Dispense: 0 Days ; #: Sufficient Tablet; Refill: 0; KRISTEN = N; Record; Last Updated By: Hali Palomo; 04/04/2018 12:37:17 PM Norvasc 10 MG Oral Tablet;Therapy: 47Jqg2060 to Recorded Dispense: 0 Days ; #: Sufficient Tablet; Refill: 0; KRISTEN = N; Record; Last Updated By: Hali Palomo; 04/04/2018 12:37:17 PM Potassium Chloride 10 MEQ/50ML Intravenous Solution;Therapy: 22Lnd1730 to Recorded Dispense: 0 Days ; #: Sufficient ML; Refill: 0; KRISTEN = N; Record; Last Updated By: Hali Palomo; 04/04/2018 12:37:17 PM Protonix 40 MG Oral Packet;Therapy: 26Avz0955 to Recorded Dispense: 0 Days ; #: Sufficient Packet; Refill: 0; KRISTEN = N; Record; Last Updated By: Hali Palomo; 04/04/2018 12:37:17 PM Sodium Chloride 1 GM Oral Tablet;Therapy: 44Ubx8609 to Recorded Dispense: 0 Days ; #: Sufficient Tablet; Refill: 0; KRISTEN = N; Record; Last Updated By: Hali Palomo; 04/04/2018 12:37:17 PM TPN Electrolytes Intravenous Solution;Therapy: 98Xhm5235 to Recorded Dispense: 0 Days ; #: Sufficient ML; Refill: 0; KRISTEN = N; Record; Last Updated By: Hali Palomo; 04/04/2018 12:37:17 PM Venlafaxine HCl - 75 MG Oral Tablet;Therapy: 72Qxb2559 to Recorded Dispense: 0 Days ; #: Sufficient Tablet; Refill: 0; KRISTEN = N; Record; Last Updated By: Hali Plaomo; 04/04/2018 12:37:17 PM Vitals Vital Signs Recorded: 04Apr2018 02:12KKCsciodkaego61.1 FHeart Axoz99Ibecdkom235Kmttxtapt50H eight6 ft Jydrmc957 lb BMI Nccsoicvqi28.57BSA Calculated2.21 Physical Exam Constitutional: General appearance: In [...] every day smoker; Ordered By:Ondina Mora; Patient Discussion/Kfnudbc44 yo male with history of complicated left [...] and examined. Agree with above.Dr. Colmenares. Normal [facility]works Initial Visit (Gastroenterol ogy)on 10-05-2017 Initial Visit (Gastroenterology ) Chief ComplaintEstablish new patient relationship History of Present Jhvoeid88 yo man from [facility] comes in for a second opinion visit. He tells me that he developed severe abdominal pain around 2017. After several days of pain he went to [facility] and was told that he has perforated diverticulitis. He was transferred to [facility] and there told that surgery was not indicated and that he should respond to treatment with IV antibiotics. Patient was discharged home, readmitted shortly after for management of volume overload. Within next 1-2 weeks, he returned to [facility] with severe right sided pain. [...] Current Meds Allopurinol 300 MG Oral Tablet;Therapy: 64Kad8648 to Recorded Dispense: 0 Days ; #: Sufficient Tablet; Refill: 0; KRISTEN = N; Record; Last Updated By: Hali Palomo; 10/04/2017 3:19:33 PM Bystolic 20 MG Oral Tablet;Therapy: 27Axe4517 to Recorded Dispense: 0 Days ; #: Sufficient Tablet; Refill: 0; KRISTEN = N; Record; Last Updated By: Hali Palomo; 10/04/2017 3:19:33 PM CloNIDine HCl - 0.1 MG Oral Tablet;Therapy: 29Cyz0264 to Recorded Dispense: 0 Days ; #: Sufficient Tablet; Refill: 0; KRISTEN = N; Record; Last Updated By: Hali Palomo; 10/04/2017 3:19:33 PM Colcrys 0.6 MG Oral Tablet;Therapy: 11Xjr3347 to Recorded Dispense: 0 Days ; #: Sufficient Tablet; Refill: 0; KRISTEN = N; Record; Last Updated By: Hali Palomo; 10/04/2017 3:19:33 PM Indomethacin 50 MG Oral Capsule;Therapy: 62Zbd5608 to Recorded Dispense: 0 Days ; #: Sufficient Capsule; Refill: 0; KRISTEN = N; Record; Last Updated By: Hali Palomo; 10/04/2017 3:19:33 PM Lisinopril 20 MG Oral Tablet;Therapy: 11Lfx2889 to Recorded Dispense: 0 Days ; #: Sufficient Tablet; Refill: 0; KRISTEN = N; Record; Last Updated By: Hali Palomo; 10/04/2017 3:19:33 PM Norvasc 10 MG Oral Tablet;Therapy: 71Yxp2243 to Recorded Dispense: 0 Days ; #: Sufficient Tablet; Refill: 0; KRISTEN = N; Record; Last Updated By: Hali Palomo; 10/04/2017 3:19:33 PM Potassium Chloride 10 MEQ/50ML Intravenous Solution;Therapy: 85Bku0936 to Recorded Dispense: 0 Days ; #: Sufficient ML; Refill: 0; KRISTEN = N; Record; Last Updated By: Hali Palomo; 10/04/2017 3:19:33 PM Protonix 40 MG Oral Packet;Therapy: 50Idk5058 to Recorded Dispense: 0 Days ; #: Sufficient Packet; Refill: 0; KRISTEN = N; Record; Last Updated By: Hali Palomo; 10/04/2017 3:19:33 PM Sodium Chloride 1 GM Oral Tablet;Therapy: 04Oct2017 to Recorded Dispense: 0 Days ; #: Sufficient Tablet; Refill: 0; KRISTEN = N; Record; Last Updated By: Hali Palomo; 10/04/2017 3:19:33 PM TPN Electrolytes Intravenous Solution;Therapy: 04Oct2017 to Recorded Dispense: 0 Days ; #: Sufficient ML; Refill: 0; KRISTEN = N; Record; Last Updated By: Hali Palomo; 10/04/2017 3:27:17 PM Venlafaxine HCl - 75 MG Oral Tablet;Therapy: 83Xbm2651 to Recorded Dispense: 0 Days ; #: Sufficient Tablet; Refill: 0; KRISTEN = N; Record; Last Updated By: Hali Palomo; 10/04/2017 3:19:33 PM Vitals Vital Signs Recorded: 92Wcw6909 03:06QWFrvsjppepnm60.6 FHeart Gktd92Vctwnjxecdh90Aiezvkee80 5Igtaojklf22Mxhdmr0 ft Fnusyw950 lb BMI Bqwemqxwpo12.89BSA Calculated2.19 Physical ExamConstitutional General appearance: In no [...] Discussion/SummaryI WILL HAVE TO GET RECORDS FROM [facility]. I RECOMMEND EGD AND COLONOSCOPY IN AN ADDITIONAL MONTH. ScreeningAdvance directives: no living will and no durable power of civil rights attorney for health care directives. Pain Screening: [...] of Encounter MedsAllopurinol 300 MG Oral Tablet;Therapy: 83Ymk2396 to RecordedBystolic 20 MG Oral Tablet;Therapy: 51Qoc0789 to RecordedCloNIDine HCl - 0.1 MG Oral Tablet;Therapy: 20Vee5111 to RecordedColcrys 0.6 MG Oral Tablet (Colchicine);Therapy: 70Afc1773 to RecordedIndomethacin 50 MG Oral Capsule;Therapy: 75Ozj7017 to RecordedLisinopril 20 MG Oral Tablet;Therapy: 11Roe9061 to RecordedNorvasc 10 MG Oral Tablet (AmLODIPine Besylate);Therapy: 90Zjy0514 to RecordedPotassium Chloride 10 MEQ/50ML Intravenous Solution;Therapy: 03Hzj2940 to RecordedProtonix 40 MG Oral Packet;Therapy: 90Jvj6813 to RecordedSodium Chloride 1 GM Oral Tablet;Therapy: 43Jda8400 to RecordedTPN Electrolytes Intravenous Solution;Therapy: 86Ebk9999 to RecordedVenlafaxine HCl - 75 MG Oral Tablet;Therapy: 66Axp4795 to Recorded Signatures Electronically signed by : Nancy Kat MD; Oct 05 2017 6:00PM EST (Author) [employer] Intraoperative Noteon 2017 Intraoperative Note [id number][facility].00[facility] Intraoperative Note [id number]#1.00[facility] Coding Summaryon 01-29-2017 Coding Summary CODING DATE: 017 [facility] STATUS: Home PAYOR: Commercial Insurance APC DESCRIPTION [...] of the body) 59 Distinct Procedural Servi 84672 5113 J1 Excision, olecranon Jamison Will And [...] Ventura Revised Date Saved: 10/28/2016 12:56 pm [facility] History and Physicalon 01-06 History and Physical [id number]#1.00[facility] Provider Orderson 01-06-2017 Provider Orders [id number]#1.00[facility] Coding Summaryon 01-03-2017 Coding Summary CODING DATE: 017 [facility] STATUS: Home PAYOR: Commercial Insurance ADMIT DX: [...] Марина Davalos Date Saved: 01/03/2017 08:12 am [facility] Coding Summaryon 12-30-2016 Coding Summary CODING DATE: 017 [facility] STATUS: Home PAYOR: Commercial Insurance APC DESCRIPTION 5072 Level 2 Excision/ Biopsy/ Incision and Drainage ADMIT DX: REASON FOR VISIT DX: 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 See Report [facility] Comment on above: Order Comment: SOFT TISSUE RIGHT ELBOW Performed By: #### 2 [id number] ####[facility] (DEFAULT)[address] [place] [address] MAGR Intraoperative Recordon 12-28-2016 MAGR Intraoperative Record MAGR Intra-Op Record Summary Primary Physician: Jamison Will DO Finalized Date/Time: 12/28/16 12:59:34 Pt. Name: ADEN PATEL/Sex: 1950 MALE Med Rec #: [id number] Physician: Jamison Will DO Financial #: [id number] Pt. Type: D Room/Bed: / Admit/Disch: 12/24/16 [...] Role Performed Surgeon - Primary Anesthesiologist of Compressor Mechanic Bus Record Time In 12/24/16 13:20:00 12/24/16 13:20:00 12/24/16 13:20:00 Time Out 12/24/16 13:54:00 12/24/16 13:54:00 12/24/16 13:54:00 Procedure Incision and Incision and Incision and Drainage(Right) Drainage(Right) Drainage(Right) Last Modified By: Dania Zhu RN, Lora RN Fresch, Lora RN 12/24/16 14:03:54 12/24/16 14:03:54 12/24/16 14:03:54 Entry 4 Entry 5 Entry 6 Case Attendee Marko Dang Lora RN Long, Barbara RN Regina CST Role Performed Scrub Personnel Facilities Planner Facilities Planner Time In 12/24/16 13:20:00 12/24/16 13:20:00 12/24/16 13:20:00 Time Out 12/24/16 13:54:00 12/24/16 13:54:00 12/24/16 13:54:00 Procedure Incision and Incision and Incision and Drainage(Right) Drainage(Right) Drainage(Right) Last Modified By: Dania Zhu RN, Lora RN Fresch, Lora RN 12/24/16 14:03:54 12/24/16 14:03:54 12/24/16 14:03:54 Entry 7 Case Attendee Macey Bradley RN Role Performed Facilities Planner Time In 12/24/16 13:20:00 Time Out 12/24/16 [...] 12/24/16 12:55:00 Performed By Maria Ines Dang PRODUCE ASSOCIATE Counts Verification Final Counts Items Included in Sponges, Sharps Final Count Method Manual Final Count Final Count Status Correct Final Counts Dania Zhu RN, Performed By Maria Ines Dang PRODUCE ASSOCIATE Final Count Time 12/24/16 13:45:00 Surgeon notified [...] for Unfinalizing 12/28/16 12:58 MHBSOFIAK Correct Documentation [facility] Consent Formson 12-27-2016 Consent Forms [id number]#1.00OTGTIFF [facility] Discharge Instructionson Discharge Instructions [id number]#1.00OTGTIFF [facility] Telemetry Stripson 7 Telemetry Strips [id number]#1.00OTGTIFF [facility] Anesthesia Noteon 12-24-2016 Anesthesia Note Patient: Rosa PATEL : 66 years Sex: MALE : [birth year]Associated Diagnoses: NoneAuthor: Nuviaty, Feliciano S MDPostoperative InformationPost Operative Note: Post Anesthesia Care [...] on: 12/24/2016 14:40 EDT] Feliciano Davies MD [facility] Anesthesia Note Patient: Rosa PATEL : 66 years Sex: MALE : [birth year]Associated Diagnoses: NoneAuthor: Feliciano Davies MDPreoperative InformationAnesthesia history: Patient history: No difficult intubation, No malignant hyperthermia. Family history: No malignant hyperthermia.Review of SystemsRespiratory: Apnea, No shortness of breath.Cardiovascular: No known [place], No chest pain.Gastrointestinal: No heartburn.Health StatusAllergies:Allergic Reactions [...] medical history):All ProblemsSleep apnea / SNOMED CT [id number]-CO762 QE27QKO / ConfirmedGout / SNOMED CT 963856962 / ConfirmedHypertension / SNOMED CT 4392820889 / ConfirmedSmoker / SNOMED CT 487919134 / ConfirmedResolved: Pulmonary emboli / SNOMED CT 4948320210NhbpebdwfUbtkxw History:No family history items have been selected or recorded.Procedure history:Inguinal hernia (0024925375).Comments:10/16/19 09:36 - Jasmin Narayanan RNright sideIncision AND drainage (536879488).Comments: 7 14:20 - Betsy Middleton RNright elbowSocial History [...] interpretation: 10/15/16 = SB, possible old inferior [place].PlanAmerican Society of Anesthesiologists#(ASA) physical status classification: Class III.Anesthetic Preoperative PlanAnesthesia: General.. Anesthetic plan, risks, benefits, and alternatives discussed with the patient and/or family. Patient verbalized understanding. Informed consent was given. Consent was signed by the patient.[Electronically Signed on: 12/24/2016 12:14 EDT] Feliciano Davies MD[Verified on: 12/24/2016 12:14 EDT] Feliciano Davies MD Normal [facility] Inpatient Clinical Summaryon 12-24-2016 Inpatient Clinical Summary [facility] SURGERYClinical Discharge SummaryPERSON INFORMATIONName JORGEADEN TOM Travis Age 66 Years 52Sex MALE Language [place]alander PCP Joseph RANGEL Status [facility] Acct# Arrival 12/24/16 10:57:01Visit Reason SURGERY - RIGHT ELBOW FISTULECTOMY - DELAYED PRIMARY CLOSURE OF WOUND Acuity LOS 007 06:09Address:[address] [facility] [address]Dbzxdxv:PROVIDER INFORMATIONVITALS INFORMATIONVital Sign Triage LatestTemp OralTemp Temporal 36.7 DegC 36.2 DegCTemp IntravascularTemp AxillaryTemp Byrjbd81 Sat 98 % 95 %Respiratory Rate 20 [...] EDUCATION INFORMATIONInstructions:Magan eston- Post Op Carpal Tunnel ([facility])Follow up:With: Address: When:Jamison Will [address] [place], [phone] Business (2) 12/30/2016 8:45 AMWith: Address: When:QUENTIN RANGEL [address] [place] [address] Business (1)DIAGNOSISGouty bursitisComment:PHYS DOC NOTES Normal [facility] Inpatient Patient Summaryon 12-24-2016 Inpatient Patient Summary [address] [address] patient Discharge InstructionsName: ADEN PATEL DDOB: [birth year] Address: [address] [address] Care Provider:Name: QUENTIN RANGELPhone: Discharge Diagnosis: Gouty [...] or business decisions or sign any legal documentsGeorgetown Behavioral Hospital would like to thank you for allowing us to assist you with your healthcare needs. The following includes patient education materials and information regarding your injury/illness.ADEN PATEL has been given the following list of follow-up instructions, prescriptions, and patient education materials:Follow-up InstructionsWith: Address: When:Jamison Will [address] [place] [address] Business (2) 12/30/2016 8:45 AMWith: Address: When:QUENTIN ZINAOj [address] [place] [address] Business (1)MedicationsDuring the course of your visit, [...] while awake-DO NOT lift heavy objects or corporate compliance officer forcefully with your hand-Change your dressing in 1 day and apply an rocael bandage-You may shower in 1 day but do not submerge your hand under water. Put a 4x4 gauze and the rocael bandage back on after you shower-If you have any problems or concerns, please call the office at [phone]-Follow up as scheduled Viruses or BacteriaWhat?s got [...] for Disease Control and Prevention November 2013 [facility] MAGR PACU Recordon 7 MAGR PACU Record MAGR PACU Record Tavo bassett Primary Physician: Jamison Will DO Finalized Date/Time: 12/24/16 14:10:26 Pt. Name: ADEN PATEL/Sex: 1950 MALE Med Rec #: [id number] Physician: Jamison Will DO Financial #: [id number] Pt. Type: D Room/Bed: / Admit/Disch: 12/24/16 [...] Signed By: Hali Lan RN 12/24/16 14:10 [facility] MAGR Postoperative Recordon 12-24-2016 MAGR Postoperative Record MAGR Phase II Record Summary Primary Physician: Jamison Will DO Finalized Date/Time: 12/24/16 15:10:31 Pt. Name: ADEN PATEL/Sex: 1950 MALE Med Rec #: [id number] Physician: Jamison Will DO Financial #: [id number] Pt. Type: D Room/Bed: / Admit/Disch: 12/24/16 [...] Signed By: Betsy Middleton RN 12/24/16 15:10 [facility] 12-24-2016 MAGR Preoperative Record MAGR Pre-Op Record Summary Primary Physician: Jamison Will DO Finalized Date/Time: 12/24/16 14:21:32 Pt. Name: ADEN PATEL./Sex: 1950 MALE Med Rec #: [id number] Physician: Jamison Will DO Financial #: [id number] Pt. Type: D Room/Bed: / Admit/Disch: 12/24/16 [...] which ones to take. Pt is very [place] inspite of hearing aids. Finalized By: Betsy Middleton RN Document Signatures Signed By: Betsy Middleton RN 12/24/16 14:21 [facility] Operative Report - Surgeon/P deuce 12-24-2016 Operative [...] on: 12/24/2016 14:41 EDT] Jamison Will DO [facility] Progress Note - Nurseon - Progress Note - Nurse preop call completed....spoke with patients .....patient to arrive at 1100 and reminded to remain NPO after midnight for 12/24/16 surgery[Electronically Signed on: 12/23/2016 09:24 EDT] Alycia Reddy RN[Verified on: 12/23/2016 09:24 EDT] Alycia Reddy RN [facility] Progress Note - Nurseon 11-27 Progress Note - Nurse Dr. Davies reviews chart for upcoming surgery 12/24/16....no orders received[Electronically Signed on: 12/22/2016 13:13 EDT] Alycia Reddy RN[Verified on: 12/22/2016 13:13 EDT] Alycia Reddy RN [facility] .Auto Diff 1on 12-21-2016 Auto Baso % 0.4 % Normal 0.2-2.0 [facility] Comment on above: Performed By: #### 7 [id number], [id number], [id number] ####[facility] (DEFAULT)[address] [place] [address] Auto [place] % 13 % High 1-12 [facility] Comment on above: Performed By: #### 7 400174, [id number], [id number] ####[facility] (DEFAULT)[address] [place] [address] Auto Neut % 62 % Normal 44-88 [facility] Comment on above: Performed By: #### 7 550274, [id number], [id number] ####[facility] (DEFAULT)[address] [place] [address] Baso Abs# 0.0 x10 Normal 0.0-0.2 [facility] Comment on above: Performed By: #### 7 708320, [id number], [id number] ####[facility] (DEFAULT)[address] [place] [address] Eos Abs# 0.1 x10 Normal 0.0-0.4 [facility] Comment on above: Performed By: #### 7 729345, [id number], [id number] ####[facility] (DEFAULT)[address] [place] [address] Eosinophils/100 leukocytes 0.7 % Low 0.9-4.0 [facility] Comment on above: Performed By: #### 7 487563, [id number], [id number] ####[facility] (DEFAULT)[address] [place] [address] Lymphocytes 2.2 x10 Normal 1.3-2.9 [facility] Comment on above: Performed By: #### 7 176261, [id number], [id number] ####[facility] (DEFAULT)[address] [place] [address] Lymphocytes/100 leukocytes 24 % Normal 14-48 [facility] Comment on above: Performed By: #### 7 655840, [id number], [id number] ####[facility] (DEFAULT)[address] [place] [address] [place] Abs# 1.2 x10 High 0.0-0.8 [facility] Comment on above: Performed By: #### 7 665145, [id number], [id number] ####[facility] (DEFAULT)[address] [place] [address] Neut Abs# 5.7 x10 Normal 1.5-9.2 [facility] Comment on above: Performed By: #### 7 003119, [id number], [id number] ####[facility] (DEFAULT)[address] [place] [address] BMP Standardon 12-21-2016 eGFR (non-black) mL/min/{1.73_m2} Invalid Interpretation Code [facility] Comment on above: Performed By: #### 7 273029, [id number], [id number] ####[facility] (DEFAULT)[address] [place] [address] Result Comment: [employer] ruy Kidney disease could be indicated at eGFRs of less than 60 ml/min/1.73m2. Kidney Failure is indicated at less than 15 ml/min/1.73m2 Anion gap 13.0 mmol/L Normal 5.0-19.0 [facility] Comment on above: Performed By: #### 7 598028, [id number], [id number] ####[facility] (DEFAULT)[address] [place] [address] BUN/Creatinine Ratio 18.0 mg/mg High 4.6-16.2 [facility] Comment on above: Performed By: #### 7 243989, [id number], [id number] ####[facility] (DEFAULT)[address] [place] [address] Calcium 9.3 mg/dL Normal 8.9-10.3 [facility] Comment on above: Performed By: #### 7 987541, [id number], [id number] ####[facility] (DEFAULT)[address] [place] [address] Chloride 98 mmol/L Low 101-111 [facility] Comment on above: Performed By: #### 7 294613, [id number], [id number] ####[facility] (DEFAULT)[address] [place] [address]9516 CO2 30 mmol/L Normal 21-32 [facility] Comment on above: Performed By: #### 7 204779, [id number], [id number] ####[facility] (DEFAULT)[address] [place] [address] Creatinine 0.91 mg/dL Normal 0.90-1.30 [facility] Comment on above: Performed By: #### 7 416575, [id number], [id number] ####[facility] (DEFAULT)[address] [place] [address] Glucose mass conc 84.0 mg/dL Normal 74.0-118.0 [facility] Comment on above: Performed By: #### 7 012684, [id number], [id number] ####[facility] (DEFAULT)[address] [place] [address] Osmolality 274 mOsm/L Invalid Interpretation Code [facility] Comment on above: Performed By: #### 7 220386, [id number], [id number] ####[facility] (DEFAULT)[address] [place] [address] Potassium molar conc 3.9 mmol/L Normal 3.6-5.1 [facility] Comment on above: Performed By: #### 7 813942, [id number], [id number] ####[facility] (DEFAULT)[address] [place] [address] Sodium 137.0 mmol/L Normal 136.0-144.0 [facility] Comment on above: Performed By: #### 7 384237, 03413981, [id number] ####[facility] (DEFAULT)[address] [place] [address] Urea nitrogen 16 mg/dL Normal - [facility] Comment on above: Performed By: #### 7 429920, [id number], [id number] ####[facility] (DEFAULT)[address] [place] [address] CBC w/ Auto Diffon Erythrocyte distribution width Auto Ratio (RBC) 14.1 % Normal 11.5-15.0 [facility] Comment on above: Performed By: #### 7 550602, [id number], [id number] ####[facility] (DEFAULT)[address] [place] [address] Erythrocytes (RBC) 4.28 x10 Normal 3.70-5.30 [facility] Comment on above: Performed By: #### 7 438099, [id number], [id number] ####[facility] (DEFAULT)[address] [place] [address] Hematocrit (HCT) 40.8 % Normal 34.8-51.9 [facility] Comment on above: Performed By: #### 7 329055, [id number], [id number] ####[facility] (DEFAULT)[address] [place] [address] Hemoglobin mass conc (Bld) 14.2 g/dL Normal 11.8-17.7 [facility] Comment on above: Performed By: #### 7 088391, [id number], [id number] ####[facility] (DEFAULT)[address] [place] [address] Man Diff? Auto Normal [facility] Comment on above: Result Comment: Auto Performed By: #### 7 150623, [id number], [id number] ####[facility] (DEFAULT)[address] [place] [address] MCH 33 pg Normal 24-34 [facility] Comment on above: Performed By: #### 7 200059, [id number], [id number] ####[facility] (DEFAULT)[address] [place] [address]3931 MCHC mass conc (RBC) 35 g/dL Normal 26-37 [facility] Comment on above: Performed By: #### 7 180406, [id number], [id number] ####[facility] (DEFAULT)[address] [place] [address] 17286 MCV 95 fL Normal 81-100 [facility] Comment on above: Performed By: #### 7 777965, [id number], [id number] ####[facility] (DEFAULT)[address] [place] [address] Platelet mean volume (PMV) 10.5 fL High 6.3-10.2 [facility] Comment on above: Performed By: #### 7 430029, 17816765, [id number] ####[facility] (DEFAULT)[address] [place] [address] Platelets 247 x10 Normal 138-427 [facility] Comment on above: Performed By: #### 7 494804, 72404657, [id number] ####[facility] (DEFAULT)[address] [place] [address] 28834 WBC (Leukocytes) 9.2 x10 Normal 3.5-10.5 [facility] Comment on above: Performed By: #### 7 501381, 16873803, [id number] ####[facility] (DEFAULT)[address] [place] [address] MAGR Preoperative Recordon 0 12-01-2016 MAGR Preoperative Record MAGR Pre-Op Record Summary Primary Physician: Jamison Will DO Finalized Date/Time: 12/01/16 13:14:49 Pt. Name: ADEN PATEL/Sex: 1950 MALE Med Rec #: [id number] Physician: Jamison Will DO Financial #: [id number] Pt. Type: D Room/Bed: / Admit/Disch: 10/15/16 [...] Signed By: Alycia Reddy RN 12/01/16 13:14 [facility] Coding Summaryon 10-28-2016 Coding Summary CODING DATE: 017 [facility] STATUS: Home PAYOR: Commercial Insurance ADMIT DX: REASON FOR VISIT DX: M10.9 Gout, unspecified FINAL DX: PRINCIPAL: M10.9 Gout, unspecified SECONDARY: M70.21 Olecranon bursitis, right elbow PROCEDURES DOCTOR NAME DATE Incision and drainage, Jamison Yung And 10/15/2016 arm or elbow area; bursa RT RIGHT SIDE (USED TO IDENTIFY PROCEDURES PERFORMED ON THE RIGHT SIDE OF THE BODY) 59 Distinct Procedural Service 99526 Excision, olecranon bursa Jamison Will And 10/15/2016 [...] Codi Ventura Date Saved: 10/28/2016 12:56 pm [facility] Coding Summaryon 10-25-2016 Coding Summary CODING DATE: 017 [facility] STATUS: Home PAYOR: Commercial Insurance ADMIT DX: REASON FOR VISIT DX: M10.9 Gout, unspecified FINAL DX: PRINCIPAL: M10.9 Gout, unspecified SECONDARY: M70.21 Olecranon bursitis, right elbow PROCEDURES DOCTOR NAME DATE Incision and drainage, Jamison Yung And 10/15/2016 arm or elbow area; bursa RT RIGHT SIDE (USED TO IDENTIFY PROCEDURES PERFORMED ON THE RIGHT SIDE OF THE BODY) 40104 Excision, olecranon bursa NicoletteJamison And 10/15/2016 RT RIGHT SIDE (USED TO IDENTIFY PROCEDURES PERFORMED ON THE RIGHT SIDE OF THE BODY) NOTE: The code number assigned matches the documented diagnosis and / or procedure in the patient's chart. However, the narrative phrase printed from the coding software may appear abbreviated, or result in slightly different terminology. Coded By: Codi Ventura Date Saved: 10/25/2016 09:48 am Normal [facility] .Auto Diff 1on 10-15-2016 Auto Baso % 0.2 % Normal 0.2-2.0 [facility] Comment on above: Performed By: #### 7 560565, [id number], [id number] ####[facility] (DEFAULT)[address] [place] [address] Auto [place] % 10 % Normal 1-12 [facility] Comment on above: Performed By: #### 7 423091, 86290589, [id number] ####[facility] (DEFAULT)[address] [place] [address] Auto Neut % 77 % Normal 44-88 [facility] Comment on above: Performed By: #### 7 [id number], [id number], [id number] ####[facility] (DEFAULT)[address] [place] [address] Baso Abs# 0.0 x10 Normal 0.0-0.2 [facility] Comment on above: Performed By: #### 7 [id number], [id number], [id number] ####[facility] (DEFAULT)[address] [place] [address] Eos Abs# 0.0 x10 Normal 0.0-0.4 [facility] Comment on above: Performed By: #### 7 [id number], [id number], [id number] ####[facility] (DEFAULT)[address] [place] [address] Eosinophils/100 leukocytes 0.3 % Low 0.9-4.0 [facility] Comment on above: Performed By: #### 7 486140, [id number], [id number] ####[facility] (DEFAULT)[address] [place] [address] 18181 Lymphocytes 1.7 x10 Normal 1.3-2.9 [facility] Comment on above: Performed By: #### 7 556018, [id number], [id number] ####[facility] (DEFAULT)[address] [place] [address] 89926 Lymphocytes/100 leukocytes 13 % Low 14-48 [facility] Comment on above: Performed By: #### 7 849408, [id number], [id number] ####[facility] (DEFAULT)[address] [place] [address] [place] Abs# 1.2 x10 High 0.0-0.8 [facility] Comment on above: Performed By: #### 7 990030, [id number], [id number] ####[facility] (DEFAULT)[address] [place] [address] Neut Abs# 9.8 x10 High 1.5-9.2 [facility] Comment on above: Performed By: #### 7 265515, [id number], [id number] ####[facility] (DEFAULT)[address] [place] [address] Anesthesia Noteon 10-15-2016 Anesthesia Note Patient: Rosa PATEL : 66 years Sex: MALE : 54Associated Diagnoses: NoneAuthor: Ezra Young MDPostoperative InformationPost Operative Note: Operative Day.Anesthetic utilized: Monitored anesthesia care.Health StatusAllergies:Allergic Reactions (All)No Known Medication AllergiesProblem list (past medical history):All ProblemsSleep apnea / SNOMED CT [id number] / ConfirmedGout / SNOMED CT 576515704 / ConfirmedHypertension / SNOMED CT 3085890384 / ConfirmedResolved: Pulmonary emboli / SNOMED CT [id number] ExaminationVS/MeasurementsVit al Signs (last 24 hrs) Last [...] on: 10/15/2016 13:12 EDT] Ezra Young MD [facility] Anesthesia Note Patient: Rosa PATEL : 66 [...] capsule 500 mg = 1 cap(s), PO, [id number] 0.1 mg oral tablet 0.1 mg = [...] medical history):All ProblemsSleep apnea / SNOMED CT [id number] YS20OFI / ConfirmedGout / SNOMED CT 221462544 / ConfirmedHypertension / SNOMED CT 1834858669 / ConfirmedResolved: Pulmonary emboli / SNOMED CT 0018696157XodxejgtvFmqmrk History:No family history items have been selected or recorded.Procedure history:Inguinal hernia ([id number]).Comments:10/16/19 09:36 - Jasmin Narayanan RNright sideSocial History Alcohol Assessment Comment: 1-2 mixed drink a day Tobacco Assessment Current Every Day Smoker, Cigarettes, 10 per day. Substance Abuse Assessment Substance use: Never..Social & Psychosocial HabitsAlcohol Comment: 1-2 mixed drink a day - 10/15/2016 09:43 - Jasmin Narayanan RNSubstance Abuse10/15/2016 Substance use: YhsdrEkwybif97/21/2017 Use: Current Every Day Smoker Type: Cigarettes [...] 10/15/2016 12:09 EDT] Ezra Young MD Normal [facility] Standardon 10-15-2016 eGFR (non-black) mL/min/{1.73_m2} Invalid Interpretation Code [facility] Comment on above: Performed By: #### 7 [id number], [id number], [id number] ####[facility] (DEFAULT)[address] [place] [address] 21465 Result Comment: [employer] ruy Kidney disease could be indicated at eGFRs of less than 60 ml/min/1.73m2. Kidney Failure is indicated at less than 15 ml/min/1.73m2 Anion gap 12.0 mmol/L Normal 5.0-19.0 [facility] Comment on above: Performed By: #### 7 544624, [id number], [id number] ####[facility] (DEFAULT)[address] [place] [address] 57789 BUN/Creatinine Ratio 24.0 mg/mg High 4.6-16.2 [facility] Comment on above: Performed By: #### 7 395547, [id number], [id number] ####[facility] (DEFAULT)[address] [place] [address] 95807 Calcium 8.5 mg/dL Low 8.9-10.3 [facility] Comment on above: Performed By: #### 7 107182, [id number], [id number] ####[facility] (DEFAULT)[address] [place] [address] 22257 Chloride 100 mmol/L Low 101-111 [facility] Comment on above: Performed By: #### 7 826308, [id number], [id number] ####[facility] (DEFAULT)[address] [place] [address] 76961 CO2 25 mmol/L Normal 21-32 [facility] Comment on above: Performed By: #### 7 603333, [id number], [id number] ####[facility] (DEFAULT)[address] [place] [address] 03684 Creatinine 0.80 mg/dL Low 0.90-1.30 [facility] Comment on above: Performed By: #### 7 144973, [id number], [id number] ####[facility] (DEFAULT)[address] [place] [address] 90620 Glucose mass conc 150.0 mg/dL High 74.0-118.0 [facility] Comment on above: Performed By: #### 7 779572, [id number], [id number] ####[facility] (DEFAULT)[address] [place] [address] 40055 Osmolality 272 mOsm/L Invalid Interpretation Code [facility] Comment on above: Performed By: #### 7 968066, [id number], [id number] ####[facility] (DEFAULT)[address] [place] [address] 74971 Potassium molar conc 4.4 mmol/L Normal 3.6-5.1 [facility] Comment on above: Performed By: #### 7 043975, [id number], [id number] ####[facility] (DEFAULT)[address] [place] [address] 14952 Sodium 133.0 mmol/L Low 136.0-144.0 [facility] Comment on above: Performed By: #### 7 925217, [id number], [id number] ####[facility] (DEFAULT)[address] [place] [address] 09638 Urea nitrogen 19 mg/dL Normal 8-26 [facility] Comment on above: Performed By: #### 7 418198, [id number], [id number] ####[facility] (DEFAULT)[address] [place] [address] CBC w/ Auto Diffon 7 Erythrocyte distribution width Auto Ratio (RBC) 13.7 % Normal 11.5-15.0 [facility] Comment on above: Performed By: #### 7 134508, [id number], [id number] ####[facility] (DEFAULT)[address] [place] [address] Erythrocytes (RBC) 4.36 x10 Normal 3.70-5.30 [facility] Comment on above: Performed By: #### 7 918342, [id number], [id number] ####[facility] (DEFAULT)[address] [place] [address] Hematocrit (HCT) 41.4 % Normal 34.8-51.9 [facility] Comment on above: Performed By: #### 7 603748, [id number], [id number] ####[facility] (DEFAULT)[address] [place] [address] Hemoglobin mass conc (Bld) 14.5 g/dL Normal 11.8-17.7 [facility] Comment on above: Performed By: #### 7 224729, [id number], [id number] ####[facility] (DEFAULT)[address] [place] [address] Man Diff? Auto Normal [facility] Comment on above: Performed By: #### 7 221034, [id number], [id number] ####[facility] (DEFAULT)[address] [place] [address] MCH 33 pg Normal 24-34 [facility] Comment on above: Performed By: #### 7 254708, [id number], [id number] ####[facility] (DEFAULT)[address] [place] [address] MCHC mass conc (RBC) 35 g/dL Normal 26-37 [facility] Comment on above: Performed By: #### 7 610624, [id number], [id number] ####[facility] (DEFAULT)[address] [place] [address] MCV 95 fL Normal 81-100 [facility] Comment on above: Performed By: #### 7 285330, [id number], [id number] ####[facility] (DEFAULT)[address] [place] [address] 86622 Platelet mean volume (PMV) 10.2 fL Normal 6.3-10.2 [facility] Comment on above: Performed By: #### 7 743993, [id number], [id number] ####[facility] (DEFAULT)[address] [place] [address] 20964 Platelets 379 x10 Normal 138-427 [facility] Comment on above: Performed By: #### 7 549879, [id number], [id number] ####[facility] (DEFAULT)[address] [place] [address] 37331 WBC (Leukocytes) 12.8 x10 High 3.5-10.5 [facility] Comment on above: Performed By: #### 7 329413, [id number], [id number] ####[facility] (DEFAULT)[address] [place] [address] 96514 Inpatient Clinical Summaryon 10-15-2016 Inpatient Clinical Summary [facility] SURGERYClinical Discharge SummaryPERSON INFORMATIONName ADEN PATEL Age 66 Years 54Sex MALE Language New Zealander PCP Joseph RANGEL [facility] Ac[facility]# Arrival 10/15/16 09:16:44Visit Reason SURGERY - RIGHT ELBOW BURSECTOMY AND I & D Acuity LOS 000 08:19Address:[address] [facility] [address]Dltnfph:PROVIDER INFORMATIONVITALS INFORMATIONVital Sign Triage LatestTemp OralTemp Temporal 36.8 DegC 36.8 DegCTemp IntravascularTemp AxillaryTemp Cbzyid05 Sat 99 % 92 %Respiratory Rate 18 [...] range between ( 1.3 and 2.9 ) [place] Abs#: 1.2 x103/mcL -- Normal range between ( 0.0 and 0.8 ) Auto Baso %: 0.2 % -- Normal range between ( 0.2 and 2.0 ) Auto [place] %: 10 % -- Normal range between [...] AA: >60 mL/min/1.73m2 eGFR Non AA: >60 mL/min/1.37c6VNUL & ACTIVITYPatient Activity Level:Patient Diet:RegularPatient Activity Restrictions:DISCHARGE INFORMATIONDischarge Disposition: HomeDischarge Location: HomeDEPART REASON INCOMPLETE INFORMATIONPATIENT EDUCATION INFORMATIONInstructions:Magan buchanan- Post Op Carpal Tunnel [facility]Follow up:With: Address: When:Jamison Nicolette [address] [place] [address] [address] [place] [address] Business (2) 10/19/2016 1:15 PMComments:Keep scheduled appointmentDo not touch drressing other than directions givenDIAGNOSISAbscess of bursa, right elbow; Bursitis of right elbow; GoutComment:PHYS DOC NOTES Normal [facility] Inpatient Patient Summaryon 10-15-2016 Inpatient Patient Summary [place] [id number] Patient Discharge InstructionsName: ADEN PATEL DDOB: [birth year] Address: [address] [place] [address] Care Provider:Name: QUENTIN RANGELPhone: Discharge Diagnosis: Abscess [...] or business decisions or sign any legal documentsGe[facility] Behavioral [facility] would like to thank you for allowing us to assist you with your healthcare needs. The following includes patient education materials and information regarding your injury/illness.ADEN PATEL has been given the following list of follow-up instructions, prescriptions, and patient education materials:Follow-up InstructionsWith: Address: When:Jamison Will [address] [place] [address], [address] [place] [address] [employer] (Harir 10/19/2016 1:15 PMComments:Keep scheduled appointmentDo not touch [...] or concerns, please call the office at [phone]-Follow up as scheduled Viruses or BacteriaWhat?s got [...] for Disease Control and Prevention November 2013 [facility] MAGR Intraoperative Recordon 10-15-2016 MAGR Intraoperative Record MAGR Intra-Op Record Summary Primary Physician: Jamison Will DO Finalized Date/Time: 10/15/16 13:38:08 Pt. Name: ADEN PATEL/Sex: 1950 MALE Med Rec #: [id number] Physician: Jamison Will DO Financial #: [id number] Pt. Type: D Room/Bed: / Admit/Disch: 10/15/16 [...] Role Performed Surgeon - Primary Anesthesiologist of Facilities Planner Record Time In 10/15/16 11:52:00 10/15/16 11:52:00 10/15/16 11:52:00 Time Out 10/15/16 12:32:00 10/15/16 12:32:00 10/15/16 12:32:00 Procedure Incision and Incision and Incision and Drainage(Right) Drainage(Right) Drainage(Right) Last Modified By: Karen Dobbs Debra L Barone, Debra L 10/15/16 12:37:37 10/15/16 12:37:37 10/15/16 12:37:37 Entry 4 Entry 5 Case Attendee Filiberto Dang Leigh-Ann CST Regina PRODUCE ASSOCIATE Role Performed Scrub Personnel Compressor Mechanic Bus Time In 10/15/16 11:52:00 10/15/16 11:52:00 Time Out 10/15/16 12:32:00 10/15/16 12:32:00 Procedure Incision and Incision and Drainage(Right) Drainage(Right) Last Modified By: Karen Dobbs Debra L 10/15/16 12:37:37 10/15/16 12:37:37 General Comments: Dolly DELEON [facility] RADIOLOGY STUDENT PARAG/ REP ARTHREX Surgical [...] 10/15/16 11:15:00 Performed By Maria Ines Dang PRODUCE ASSOCIATE Counts Verification Final Counts Items Included in Sponges, Sharps Final Count Method Manual Final Count Final Count Status Correct Final Counts Karen Dobbs, Performed By Maria Ines Dang PRODUCE ASSOCIATE Final Count Time 10/15/16 12:24:00 Surgeon notified [...] Signatures Signed By: Karen Dobbs 10/15/16 13:38 [facility] MAGR PACU Recordon 7 MAGR PACU Record MAGR PACU Record Sum [facility] Primary Physician: Jamison Will DO Finalized Date/Time: 10/15/16 13:00:52 Pt. Name: ADEN PATEL/Sex: 1950 MALE Med Rec #: [id number] Physician: Jamison Will DO Financial #: [id number] Pt. Type: D Room/Bed: / Admit/Disch: 10/15/16 09:16:44 - Institution: PACU Case Times MAGR Entry 1 In PACU I 10/15/16 12:34:00 Discharge from PACU 10/15/16 13:00:00 I Last Modified By: She Posadas RN 10/15/16 13:00:47 General Comments: See Nii for details Finalized By: She Posadas RN Document Signatures Signed By: She Posadas RN 10/15/16 13:00 [facility] 10-15-2016 MAGR Postoperative Record MAGR Phase II Record Summary Primary Physician: Jamison Will DO Finalized Date/Time: 10/15/16 14:05:56 Pt. Name: ADEN PATEL/Sex: 1950 MALE Med Rec #: [id number] Physician: Jamison Will DO Financial #: [id number] Pt. Type: D Room/Bed: / Admit/Disch: 10/15/16 [...] Unfinalizing 10/15/16 14:05 OMKAR Correct Documentation Normal [facility] Operative Report - Surgeon/P deuce 10-15-2016 Operative [...] on: 10/15/2016 12:48 EDT] Jamison Will DO [facility] Vital Signs Date Time Vital Sign Value Performing Clinician Facility 02-21-2024 13:42-0500 Body height 172.7 cm Audrey Ramirez DPM Work Phone: [facility] 02-21-2024 13:42-0500 Body mass index (BMI) [Ratio] 37.86 kg/m2 Audrey Ramirez DPM Work Phone: [facility] 02-21-2024 13:42-0500 Body weight 112.95 kg Audrey Ramirez DPM Work Phone: [facility] 04-24-2018 04:24-0500 Body temperature 37.0 degrees C [facility] Comment on above: Result Comment: NOTE: PATIENT RESULTS AR E NOT CORRECTED FOR TEMPERATURE. Performed By: #### A FPA3 ####[id number] [place] [address] 04-23-2018 04:19-0500 Body temperature 37.0 degrees C [facility] Comment on above: Result Comment: NOTE: PATIENT RESULTS AR E NOT CORRECTED FOR TEMPERATURE. Performed By: #### A FPA3 ####[id number] [place] [address] 04-22-2018 10:20-0500 Body temperature 37.0 degrees C [facility] Comment on above: Result Comment: NOTE: PATIENT RESULTS AR E NOT CORRECTED FOR TEMPERATURE. Performed By: #### A FPA3 ####[id number] [place] [address] 04-22-2018 03:42-0500 Body temperature 37.0 degrees C [facility] Comment on above: Result Comment: NOTE: PATIENT RESULTS AR E NOT CORRECTED FOR TEMPERATURE. Performed By: #### A FPA3 ####[id number] [place] [address] 04-21-2018 06:20-0500 Body temperature 37.0 degrees C [facility] Comment on above: Order Comment: critical results read to Cherelle Gonzalez and read back to NORRIS, 04/21/2018 04:27 Result Comment: NOTE : PATIENT RESULTS ARE NOT CORRECTED FOR TEMPERATURE. Performed By: #### A FPA3 ####[id number] [place] [address] 04-19-2018 20:05-0500 Body temperature 37.0 degrees C [facility] Comment on above: Order Comment: CHUYITA PETERS CALLED TO AMINATA PAVON, 04/19/2018 18:38 Result Comment: NOTE : PATIENT RESULTS ARE NOT CORRECTED FOR TEMPERATURE. Performed By: #### A FPA3 ####[id number] [place] [address] 04-19-2018 05:51-0500 Body temperature 37.0 degrees C [facility] Comment on above: Order Comment: [facility] RB TO Markie PADGETT, 04/19/2018 04:00 Result Comment: NOTE : PATIENT RESULTS ARE NOT CORRECTED FOR TEMPERATURE. Performed By: #### A FPA3 ####[id number] [place] [address] 04-18-2018 03:19-0500 Body temperature 37.0 degrees C [facility] Comment on above: Result Comment: NOTE: PATIENT RESULTS AR E NOT CORRECTED FOR TEMPERATURE. Performed By: #### A FPA3 ####[id number] [place] [address] 04-17-2018 22:44-0500 Body temperature 37.0 degrees C [facility] Comment on above: Result Comment: NOTE: PATIENT RESULTS AR E NOT CORRECTED FOR TEMPERATURE. Performed By: #### A FPA3 ####[id number] [place] [address] 04-17-2018 17:24-0500 Body temperature 37.0 degrees C [facility] Comment on above: Result Comment: NOTE: PATIENT RESULTS AR E NOT CORRECTED FOR TEMPERATURE. Performed By: #### A FPA3 ####[id number] [place] [address] 04-17-2018 12:17-0500 Body temperature 37.0 degrees C [facility] Comment on above: Result Comment: NOTE: PATIENT RESULTS AR E NOT CORRECTED FOR TEMPERATURE. Performed By: #### H EPFP #### [facility] [address] [place] [address] 04-17-2018 05:54-0500 Body temperature 37.0 degrees C [facility] Comment on above: Result Comment: NOTE: PATIENT RESULTS AR E NOT CORRECTED FOR TEMPERATURE. Performed By: #### C BCDF #### [facility] [address] [place] [address] 04-17-2018 02:06-0500 Body temperature 37.0 degrees C [facility] Comment on above: Result Comment: NOTE: PATIENT RESULTS AR E NOT CORRECTED FOR TEMPERATURE. Performed By: #### C OAGS #### [facility] [address] [place] [id number] 04-16-2018 23:19-0500 Body temperature 37.0 degrees C [facility] Comment on above: Result Comment: NOTE: PATIENT RESULTS AR E NOT CORRECTED FOR TEMPERATURE. Performed By: #### A FPA3 ####[id number] [place] [address] 04-16-2018 16:23-0500 Body temperature 37.0 degrees C [facility] Comment on above: Result Comment: NOTE: PATIENT RESULTS AR E NOT CORRECTED FOR TEMPERATURE. Performed By: #### A FPA3 ####[id number] [place] [address] 04-16-2018 13:43-0500 Body temperature 37.0 degrees C [facility] Comment on above: Order Comment: CHUYITA TREJO [facility] CALLED R B TO GM [place], 04/16/2018 12:12 Result Comment: NOTE : PATIENT RESULTS ARE NOT CORRECTED FOR TEMPERATURE. Performed By: #### A FPA3 ####[id number] [id number] Encounters Encounter Date Encounter Type Care Provider Facility Start: 04-04-2024 End: 04-04-2024 Telephone encounter Angeles Hammond CMA [facility] Start: 02-21-2024 End: 02-21-2024 Bamboo flowsheet Audrey Ramirez DPM Work Phone: [facility] Start: 02-21-2024 End: 02-21-2024 Bamboo flowsheet Audrey Ramirez DPM Work Phone: [facility] Start: 02-21-2024 End: 02-21-2024 Patient encounter procedure Audrey Ramirez DPM Work Phone: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
== END 2024-04-09 10:36 | disposition home or self-care (01) ==
LOC: VC 10:35
PROVIDERS: PCP Family Medicine; Visit Provider Student in an Organized Health Care Education/Training Program
DX: I72.4 Aneurysm of artery of lower extremity (principal)
CPT/HCPCS: 93926

== ENCOUNTER 2024-06-14 09:46 | Outpatient (OUT) | payer MEDICARE, SELFPAY ==
--- NOTE | 2024-06-14 10:00 | CA_ITS ---
Patient Name: HEAVEN PATEL MR#: [id number] : 1950 Exam Date: 06/14/2024 Ordering Doctor: DR ANNE-MARIE BAKER M.D. ECHOCARDIOGRAM REPORT PROCEDURE: CA ECHO DOPPLER COMPLETE INDICATIONS: Aortic aneurysm, hypertension, diabetes, smoker COMPARISON: None. DESCRIPTION: COMPLETE ECHOCARDIOGRAM Real-time transthoracic echocardiography with 2D, M-mode, spectral and color flow Doppler performed. QUALITY: Technical quality was adequate. LEFT VENTRICLE: Normal chamber size. Mild concentric left ventricular hypertrophy. Normal systolic function. LV EF: Normal left ventricular ejection fraction, (>55%). DIASTOLIC: ATRIAL SEPTUM: LEFT ATRIUM: Mild dilatation. RIGHT ATRIUM: Mild dilatation. RIGHT VENTRICLE: Normal chamber size. Normal right ventricular systolic function. TRICUSPID VALVE: Normal mobility and thickness. No stenosis with trivial regurgitation. Unable to assess right-sided pressures due to lack of measurable tricuspid regurgitation. MITRAL VALVE: Normal mobility and thickness. No evidence of mitral valve stenosis. There is no mitral annular calcification. No mitral regurgitation. AORTIC VALVE: Normal trileaflet appearance. Mildly calcified aortic valve. Normal leaflet mobility. No evidence of aortic valve stenosis. No aortic regurgitation. AORTIC ROOT: Aortic root is moderately to severely dilated (5 cm), ascending aorta is moderately dilated (4.7 cm). Aortic arch is normal in size, measuring 3.0 cm. PULMONIC VALVE: Not well visualized. No stenosis. No regurgitation. PERICARDIUM: No evidence of pericardial effusion. IVC: IVC is dilated (2.2 cm), does not collapse. PLEURA: CONCLUSION: 1. Mild concentric left hypertrophy with normal systolic function. LVEF is estimated at 55 to 60%. 2. Normal right ventricular size and systolic function. 3. Mild biatrial dilatation. 4. 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 5. Moderately dilated ascending aorta at 4.7 cm with normal size aortic arch at 3.0 cm. 6. No significant valvular dysfunction. 7. No pericardial effusion. 8. CT scan of the chest is recommended for better assessment of the aortic root and ascending aorta. Adult Echocardiography Procedure Report Left Ventricle LVEDD (3.7 - 5.6 cm): 4.62 cm LVESD (2.2 - 4.0 cm): 3.33 cm LVIVS thickness (0.6 - 1.2 cm): 1.21 cm LVPW thickness (0.5 - 1.0 cm): 1.15 cm e': 0.13 m/s E - e': 3.45 LVOT Max Gradient: 2.06 mm[Hg] LVOT Area (cm2): 0.72 m/s Peak Velocity (LVOT): 0.72 m/s Mean Velocity (LVOT): 0.46 m/s LVOT Diameter 2.72 cm Left Atrium Left Atrium Systolic Dimension: 3.64 cm Mitral Valve MV E to A Ratio: 0.77 Mitral Valve A-Wave Peak Velocity: 0.60 m/s Mitral Valve E-Wave Peak Velocity: 0.46 m/s Right Ventricle Aorta AO Root Diam: 3.65 cm Ascending Ao Diam: 4.70 cm Aortic Valve AoV Area (Peak Pramod): 4.69 cm2, 4.69 cm2 AoV Area (VTI): 5.72 cm2, 5.72 cm2 Peak Velocity(Antegrade Flow): 0.89 m/s Peak Gradient(Antegrade Flow): 3.16 mm[Hg] Mean Velocity(Antegrade Flow): 0.55 m/s Mean Gradient(Antegrade Flow): 1.48 mm[Hg] Velocity Time Integral: 17.54 cm Tricuspid Valve Pulmonic Valve Mean Gradient: 1.35 mm[Hg] Mean Velocity: 0.55 m/s Peak Velocity: 0.80 m/s, 0.83 m/s Peak Gradient: 2.77 mm[Hg], 2.54 mm[Hg] Right Atrium Dictated by: Anne-Marie Baker M.D. on 06/14/2024 at 18:15 Approved by: Anne-Marie Baker M.D. on 06/14/2024 at 18:23
== END 2024-06-14 09:47 | disposition home or self-care (01) ==
LOC: CARD 09:46
PROVIDERS: PCP Family Medicine; Visit Provider Internal Medicine Interventional Cardiology
DX: I71.9 Aortic aneurysm of unspecified site, without rupture (principal); I71.21 Aneurysm of the ascending aorta, without rupture
CPT/HCPCS: 93306

== ENCOUNTER 2024-08-22 12:39 | Outpatient (OUT) | payer MEDICARE, SELFPAY ==
[2024-08-22 12:52] LABS: Basophils Absolute Auto 0.1 10^3/uL (0.0-0.1); Basophils Percent Auto 1.1 % (0.2-2.0); Eosinophils Absolute Auto 0.2 10^3/uL (0.0-0.7); Eosinophils Percent Auto 2.5 % (0.9-7.0); Hematocrit 41.4 % (42.0-54.0); Hemoglobin 14.7 g/dL (14.0-18.0); Immature Granulocytes Abs Auto 0.03 10^3/uL (0.00-0.03); Immature Granulocytes Pct Auto 0.5 % (0.0-0.5); Lymphocytes Absolute Auto 1.3 10^3/uL (1.2-3.8); Lymphocytes Percent Auto 20.1 % (20.5-60.0); Mean Corpuscular HGB Conc 35.5 g/dL (29.9-35.2); Mean Corpuscular Hemoglobin 33.6 pg (25.9-34.0); Mean Corpuscular Volume 94.7 fL (80.0-94.0); Mean Platelet Volume 10.6 fL (9.5-13.5); Monocytes Absolute Auto 0.7 10^3/uL (0.3-0.8); Monocytes Percent Auto 11.8 % (1.7-12.0); Platelet Count 193 10^3/uL (150-450); Red Blood Count 4.37 10^6/uL (4.70-6.10); White Blood Count 6.3 10^3/uL (4.0-11.0)
--- NOTE | 2024-08-22 13:01 | CT_ITS ---
The [address] [address] Patient Name: HEAVEN PATEL MRN: [id number] date: 1950 Sex: M Assigned Patient Location: LAB Current Patient Location: LAB Accession/Order Number: [id number] Exam Date: 08/22/2024 15:51 Report Date: 08/22/2024 15:55 At the request of: ANNE-MARIE FRAZIER Procedure: CT angio chest CTA Chest with PE protocol TECHNIQUE: Axial imaging with 2-D and 3-D reconstruction. We are cc of Omnipaque 350cc of Isovue-[address] exam was performed using one or more the following dose reduction techniques: Automated exposure control, adjustment of the MA and/or Kv according to patient size, or use of the iterative reconstruction technique. History: Aneurysm of the ascending aorta. Shortness of breath with exertion. Current smoker. Yearly checkup. COMPARISON: 05/04/2022 THYROID: Unremarkable TRACHEA AND BRONCHI: Patent ESOPHAGUS: Unremarkable. HEART: Within normal limits PERICARDIAL EFFUSION: None CORONARY ARTERY CALCIFICATION: None MEDIASTINUM: No adenopathy. No pneumoperitoneum. No mediastinal hematoma. PULMONARY CHINO: No hilar mass or adenopathy is seen. THORACIC AORTA similar diameter of the ascending thoracic aorta measuring 4.4 cm. Tortuosity of the descending thoracic aorta. No dissection. Mild atherosclerosis PULMONARY EMBOLUS: None LUNG NODULE None LUNGS: Stable scarring of a posterior right lung base. Stable tiny lung nodules. Mild emphysematous changes. PLEURAL EFFUSION: None PNEUMOTHORAX: No pneumothorax seen. CHEST WALL: No abnormality AXILLA: Unremarkable BONY STRUCTURES thoracic spondylosis UPPER ABDOMEN: Images of the upper abdomen are noncontributory. CT/CT angio chest IMPRESSION: Stable 4.4 cm diameter of the ascending thoracic aorta. Similar tortuosity of the descending thoracic aorta. The stable scarring posterior portion of the right lung base. No new findings. Impression dictated by: Ramy Brown M.D. 08/22/2024 3:55 PM Dictation Location: [facility] Electronically authenticated by: [id number] Y Date: 08/22/2024 15:55
[2024-08-22 13:08] LABS: Alanine Aminotransferase 45 U/L (16-63); Albumin Globulin Ratio 1.2; Albumin Level 3.9 g/dL (3.4-5.0); Alkaline Phosphatase 96 U/L (46-116); Anion Gap 12.1; Aspartate Amino Transferase 32 U/L (15-37); Bilirubin Total 0.9 mg/dL (0.2-1.0); Calcium 9.1 mg/dL (8.5-10.1); Carbon Dioxide 29.6 mmol/L (21.0-32.0); Chloride 96 mmol/L (98-107); Estimated GFR (African America >60 (>=60 mL/min/1.73m^2); Estimated GFR (Non-African Ame 57 (>=60 mL/min/1.73m^2); Globulin 3.3 g/dL; Glucose 116 mg/dL (74-106); Potassium 3.7 mmol/L (3.5-5.1); Sodium 134 mmol/L (136-145); Total Protein 7.2 g/dL (6.4-8.2)
[2024-08-22 13:10] LABS: Chol HDL Ratio 1.4; Cholesterol 137 mg/dL (<=200); HDL Cholesterol 97 mg/dL (40-60); Triglycerides 54 mg/dL (<=150); VLDL CHOLESTEROL 10.8 mg/dL
== END 2024-08-22 12:40 | disposition home or self-care (01) ==
LOC: LAB 12:39
PROVIDERS: PCP Family Medicine; Visit Provider Internal Medicine Interventional Cardiology
DX: I71.21 Aneurysm of the ascending aorta, without rupture (principal)
CPT/HCPCS: 36415; 71275; 80053; 80061; 85025; Q9967